=== PATIENT | male | born 1940 | race Caucasian/White ===

== ENCOUNTER → 2019-04-10 13:33 | Outpatient (CLI) | payer MEDICARE, OTHER, SELFPAY ==
[2019-03-23 09:49] VITALS: BMI 42.4
--- NOTE | 2019-04-10 13:34 | ECHOCS_ITS ---
Reason For Study: MURMUR Procedure This was a 2D Doppler, Color Flow transthoracic echocardiogram. The study was technically difficult. Contrast injection was performed. Exam performed in department. Left Ventricle Normal LV size. The estimated ejection fraction is 55 %. Left ventricular systolic function is normal. No regional wall motion abnormalities noted. Right Ventricle Normal RV size. Normal systolic function. Atria The left atrium is mildly enlarged. Normal right atrium. Mitral Valve Normal mitral valve. Mild (1+) eccentric mitral valve insufficiency. Tricuspid Valve Normal tricuspid valve. Mild (1+) tricuspid valve insufficiency. Pulmonary artery systolic pressure is 30 mmHg. Aortic Valve Moderate focal aortic valve thickening. Peak aortic valve gradient 34 mmHg. Mean aortic valve gradient 20 mmHg. Moderate aortic stenosis. Mild (1+) eccentric aortic valve insufficiency. Pulmonic Valve The pulmonic valve is not well visualized. Great Vessels Normal aortic root. The pulmonary artery is normal size. Normal inferior vena cava. Pericardium/Pleural No pericardial effusion. Medication 22 gauge I.V. with prn adaptor inserted into right arm. Diluted definity 4.0ml given slow IV push to enhance endocardial definition. MMode/2D Measurements & Calculations LVIDd: 5.6 cm IVSd: 1.1 cm LVOT diam: 2.1 cm LVIDs: 4.5 cm LVPWd: 1.1 cm RVDd: 5.2 cm FS: 20.2 % LVOT area: 3.3 cm2 Ao root diam: 4.4 cm LAV(MOD-bp): 81.2 ml EDV(MOD-sp4): 234.8 ml LAV(MOD-bp) Indexed: 31.6 ml/m2 ESV(MOD-sp4): 97.1 ml LAV(MOD-sp2): 90.1 ml EF(MOD-sp4): 58.7 % LAV(MOD-sp4): 72.5 ml EDV(MOD-sp2): 175.5 ml SV(MOD-sp4): 137.7 ml SV(MOD-sp2): 65.7 ml EF(MOD-sp2): 37.4 % LA dimension(2D): 4.1 cm LA A4 area: 23.1 cm2 RA A4 area: 12.9 cm2 Time Measurements MV dec time: 0.20 sec Doppler Measurements & Calculations MV E max chirag: 70.6 cm/sec Lat Peak E' Chirag: 5.9 cm/sec Med Peak E' Chirag: 4.3 cm/sec MV A max chirag: 88.4 cm/sec E/E' lat: 11.9 E/E' med: 16.3 MV E/A: 0.80 Ao V2 max: 291.0 cm/sec AI max chirag: 333.7 cm/sec LV V1 max: 76.6 cm/sec Ao max P.0 mmHg AI max P.7 mmHg LV V1 max P.3 mmHg Ao V2 mean: 216.3 cm/sec AI dec slope: 157.8 cm/sec2 LV V1 mean P.4 mmHg Ao mean P.4 mmHg AI P1/2t: 619.6 msec LV V1 mean: 55.7 cm/sec Ao V2 VTI: 72.8 cm LV V1 VTI: 19.4 cm JOSSE(I,D): 0.89 cm2 JOSSE(V,D): 0.88 cm2 SV(LVOT): 64.8 ml PA V2 max: 83.6 cm/sec TR max chirag: 259.7 cm/sec TR max P.0 mmHg Interpretation Summary Normal LV size. The estimated ejection fraction is 55 %. Left ventricular systolic function is normal. The left atrium is mildly enlarged. Mild (1+) eccentric mitral valve insufficiency. Mild (1+) tricuspid valve insufficiency. Moderate aortic stenosis. Moderate focal aortic valve thickening. Contrast injection was performed. Ordering Physician: John Herndon Referring Physician: ARHS POLK Performed By: Sheri Gordillo, RDCS, RVT
== END ==
PROVIDERS: Family Provider Family Medicine; PCP Family Medicine; Referring Provider Internal Medicine Cardiovascular Disease; Visit Provider Internal Medicine Cardiovascular Disease
DX: I35.0 Nonrheumatic aortic (valve) stenosis (principal); R01.0 Benign and innocent cardiac murmurs
CPT/HCPCS: 93306; Q9957; A4216; C8929

== ENCOUNTER 2019-04-24 11:08 | Outpatient (CLI) | payer MEDICARE, OTHER, SELFPAY ==
[2019-03-23 09:49] VITALS: BMI 42.4
--- NOTE | 2019-04-24 11:10 | ECHOTEE_ITS ---
Reason For Study: AORTIC STENOSIS Medication GISELLE probe 6VT-D (SN [id number]) passed with minimal difficulty. No complications were noted. Cetacaine Topical [place] given X4 orally. Versed 3.0 mg given slow IVP. Fentanyl 50 mcg given slow IVP. Performed a rapid injection of agitated mix of 9 cc saline and 1cc air to assess for atrial septal defect. Left Ventricle Normal LV size. The estimated ejection fraction is 45 %. No regional wall motion abnormalities noted. Right Ventricle Normal RV size. Mild global right ventricular systolic dysfunction. The right ventricular wall motion is normal. Atria Normal atrial septum. Bubble contrast study negative for right to left interatrial shunt. Normal left atrium. No thrombus is detected in the left atrial appendage. Normal right atrium. Mitral Valve Normal mitral valve. Mild (1+) eccentric mitral valve insufficiency. Tricuspid Valve Normal tricuspid valve. Aortic Valve Trisinus/trileaflet aortic valve. Moderate focal aortic valve thickening. Moderate aortic stenosis. Pulmonic Valve Normal pulmonic valve. Vessels Normal aortic root. Normal arch. The pulmonary artery is normal size. Pericardium No pericardial effusion. Interpretation Summary Normal LV size. The estimated ejection fraction is 45 %. Moderate focal aortic valve thickening. Moderate aortic stenosis. Ordering Physician: John Herndon Referring Physician: ARSH POLK Performed By: Sheri Gordillo, ESTEPHANIACS, RVT
== END 2019-04-24 13:08 | disposition home or self-care (01) ==
LOC: CVS 11:08
PROVIDERS: Family Provider Family Medicine; PCP Family Medicine; Referring Provider Internal Medicine Cardiovascular Disease; Visit Provider Internal Medicine Cardiovascular Disease
DX: I35.0 Nonrheumatic aortic (valve) stenosis (principal); C85.90 Non-Hodgkin lymphoma, unspecified, unspecified site; E78.5 Hyperlipidemia, unspecified
CPT/HCPCS: 93312; 93320; 93325; J7040; A4216

== ENCOUNTER 2020-01-22 12:43 | Inpatient (IN) | payer MEDICARE, OTHER, SELFPAY ==
[2019-03-23 09:49] VITALS: BMI 42.4
[2020-01-22] VITALS (18 sets, daily range): BP systolic 142–176; BP diastolic 75–113; PULSE 64–78; RESP 18–22; TEMP 36.6–37; O2SAT 96–98; BMI 42.7; BMI 41.7
--- NOTE | 2020-01-22 13:08 | EKG12_ITS ---
Test Reason : CP REPEAT Blood Pressure : / mmHG Vent. Rate : 071 BPM Atrial Rate : 071 BPM P-R Int : 174 ms QRS Dur : 116 ms QT Int : 436 ms P-R-T Axes : 042 -41 125 degrees QTc Int : 473 ms Sinus rhythm with occasional Premature ventricular complexes Left axis deviation Left ventricular hypertrophy with QRS widening and repolarization abnormality Abnormal ECG Confirmed by CRYSTAL VILLANUEVA, АНДРЕЙ ([id number]), proposal editor SUMIT PACHECO ([id number]) on 01/25/2020 1:16:31 PM Referred By: LORETTA Confirmed By:АНДРЕЙ ROJAS MD
--- NOTE | 2020-01-22 13:08 | RAD_ITS ---
STUDY: X-RAY CHEST REASON FOR EXAM: Male, 79 years old. CHEST PAIN TECHNIQUE: Single AP portable view of the chest. COMPARISON: None. FINDINGS: EKG electrodes are seen. The lungs are clear and expanded. There is no demonstrated pleural abnormality. There is moderate cardiac enlargement. Normal mediastinum and sirisha. Normal visualized pulmonary arteries. Normal visualized aortic arch and descending thoracic aorta. There are diffuse degenerative changes of the visualized thoracic spine. Normal visualized ribs, clavicles, and shoulders. There is no demonstrated abnormality of the visualized soft tissue structures of the upper abdomen. RAD/Chest 1 View (Portable) IMPRESSION: Cardiomegaly. Electronically Signed: Caio Shen, at 13:36 EDT , Service support ,
[2020-01-22 13:20] LABS: Absolute Lymphocyte Count 1.31 X10^3/uL (0.83-4.51); Absolute Neutrophil Count 6.2 X10^3/uL (2.0-7.7); Basophil# 0.03 X10^3/uL; Basophil% 0.4 % (0-1); Eosinophil# 0.22 X10^3/uL; Eosinophils% 2.6 % (0-5); Hematocrit 36.6 % (40-54); Hemoglobin 12.4 g/dL (13.0-16.5); Lymphocyte # 1.31 X10^3/ul (4.0); Lymphocyte % 15.3 % (19-41); Mean Corp Hgb Conc 33.9 g/dL (32-36); Mean Corpuscular Hgb 29.5 pg (27.0-32.0); Mean Corpuscular Volume 86.9 fL (80-94); Mean Platelet Vol. 10.3 fl (6.2-12.0); Monocyte# 0.79 X10^3/uL; Monocyte% 9.2 % (0-10); NRBC Flagged by Analyzer 0 % (0-5); Neutrophil # 6.17 X10^3/uL (2.7-7.7); Neutrophil % 71.9 % (47-70); Platelet Count 196 K/mm3 (150-450); RBC Distribution Width SD 43.8 fl (35.1-43.9); Red Blood Count 4.21 M/mm3 (4.6-6.2); White Blood Count 8.6 K/mm3 (4.4-11.0)
[2020-01-22] MEDS: Aspirin 81 MG TAB.CHEW 324 MG PO (13:28)
--- NOTE | 2020-01-22 13:28 | ED.VIS.GEN ---
History of Present Illness Chief Complaint: Chest Pain Narrative: Patient presents with chest pain that started about an hour prior to arrival he was at the chiropractor's office and was laying down. He describes left-sided chest ache, radiates to his jaw. There is no back pain or tearing sensation. Patient does not have any pleuritic component he has no lower extremity pain or calf pain. He has no DVT or PE risk factors. He does have a history of diabetes and hypertension. No prior cardiac history. He has no abdominal pain. Past Medical History - Allergies and Home Meds Allergies/Adverse Reactions: Allergies No Known Allergies Allergy (Verified 01/22/20 12:49) Past Medical History: - - Hypertension, diabetes Smoking Status: Former smoker Review of Systems General: Denies: Fever Eyes: Denies: Visual changes - bilaterally Cardiovascular: Reports: Chest pain Respiratory: Denies: Dyspnea, Cough Gastrointestinal: Denies: Abdominal pain, Nausea Genitourinary: Denies: Dysuria Musculoskeletal: Denies: Myalgias Skin: Denies: Rash Neurological: Denies: Headache Psych: Denies: Depression Hematologic: Denies: Easy bruising Allergy: Denies: Uticaria Physical Exam Vital Signs/Narrative: Vital Signs Temp Pulse Resp BP Pulse Ox 01/22/20 12:43 98.6 F 78 22 H 176/113 H 97 Inital Vital Signs reviewed: Yes General: Well nourished, Well developed Head: Normocephalic ENT: Moist mucous membranes Neck: Supple, Nontender Cardiovascular: Regular rate, Regular rhythm Respiratory: No distress, CTA bilaterally Abdomen: Soft, Nontender Back: Nontender, Normal Inspection. Negative for: CVA tenderness Extremities: Nontender, No edema Skin: Normal color Neurological: Alert, Oriented x3 Psychological: Normal affect Diagnostic/Tx/Re-eval - Rhythm Strip Rhythm Strip: Sinus Rhythm Rate: 81 Ectopy: None, PVC(s) - EKG Initial EKG Interpretation: - - Sinus rhythm with a rate of 81. PVCs are seen. Left axis deviation. LVH criteria is present. Nonspecific ST changes throughout. Otherwise normal EKG Interpreted by emergency doctor - Medical Decision Making Patient is found to have an elevated troponin, he still has some jaw pain and nitroglycerin drip was started. I will start low molecular heparin since there is some renal insufficiency. Patient will be admitted and I will call cardiology also. - Critical Care Time Critical care time (excluding procedures): 30-74 minutes - Cussing with family and family members, consultants and documenting. ED Disposition - Plan for ED Patient: Disposition: Home or Assisted Living Diagnosis: NSTEMI (non-ST elevated myocardial infarction)
[2020-01-22 13:35] LABS: Anion Gap 6 (5-15); BUN 24 mg/dL (7-18); BUN/Creat Ratio 14.9 RATIO (10-20); Chloride 104 mmol/L (98-107); Creatinine, Serum 1.61 mg/dL (0.70-1.30); EST Glomerular Filtration Rate 44 mL/min (>60); Est Glom Filt Rate - Afr Amer 53 mL/min (>60); Estimated Creatinine Clearance 40.84 ml/min; Glucose 136 mg/dL (74-106); Potassium 4.6 mmol/L (3.5-5.1); Sodium Level 137 mmol/L (136-145)
[2020-01-22 14:31] LABS: Partial Thromboplast Time 32.3 Seconds (24.1-36.2)
--- NOTE | 2020-01-22 14:36 | PCM.HP.STD ---
Problem List (1) Diabetes Status: Chronic Qualifiers: Diabetes mellitus type: type 2 Diabetes mellitus jail insulin use: without termite control representative use Diabetes mellitus complication status: with other specified complication Qualified Code(s): E11.69 - Type 2 diabetes mellitus with other specified complication (2) KOFI (acute kidney injury) Status: Acute (3) Mild chronic anemia Status: Chronic (4) Diffuse large B cell lymphoma Status: Resolved History of Present Illness Date of Admission: 01/22/20 Chief Complaint: Chest/Jaw pain Mr. Turner is a 79 year old M with a PMH of HPL, AV stenosis, DM-2, HTN, neuropathy, and chronic LBP who presented tot he ED on 01/22/2020 with chest discomfort that radiates to his jaw. He states that he had his first sx at 1100 pm on Sat night when going up the stairs to go to bed. He states at that time he was walking up the stairs and had some heaviness in his chest that was associated with jaw pain and significant diaphoresis that resolved when he laid down and went to bed. He woke up and didn't feel great yesterday but didn't feel badly either. Today he got up and felt okay. He had an appt at his chiropractor's office and went in and while he was lying on a table getting set up for treatment he started having the chest discomfort again and again it was associated with jaw pain but no diaphoresis. He had no associated N/V or SOB either. He has no personal h/o CAD but has a strong family h/o CAD in his parents and both of his siblings have had CABG. He has a remote h/o smoking. He is still currently having some slight chest discomfort and jaw pain and the ED is hanging a nitro ggt. He was given a full dose ASA and 1 dose of LMWH at 120mg per Dr. Herndon's request. He has no ST elevation or depression but has t wave inversions in lead I and lead aVF. His initial troponin 0.242. His sCr was 1.61 and baseline is unknown. His VS are stable except for some HTN and his sats are 96-98% on RA. Past Medical History Past Medical History (Chronic Problems): Chronic Problems (Last Reviewed 01/22/20 @ 14:[address] Corinne Laboy DO) Diabetes (Chronic) Mild chronic anemia (Chronic) Nonrheumatic aortic (valve) stenosis (Chronic) HLD (hyperlipidemia) (Chronic) Non-Hodgkin lymphoma (Chronic) Medical History: Medical History (Last Reviewed 01/22/20 @ 14:[address] Corinne Laboy DO) Nonrheumatic aortic (valve) stenosis (Chronic) I35.0 HLD (hyperlipidemia) (Chronic) E78.5 Non-Hodgkin lymphoma (Chronic) C85.90 Obesity E66.9 Splenic artery aneurysm I72.8 Type 2 diabetes mellitus E11.9 Kidney stones N20.0 Allergies No Known Allergies Allergy (Verified 01/22/20 12:49) Home Medications: Ambulatory Orders Medication Instructions Recorded gabapentin 300 mg capsule 300 mg PO BID 03/24/18 glimepiride 4 mg tablet 4 mg PO BID tab 03/24/18 metoprolol succinate 50 mg 50 mg PO DAILY 03/24/18 tablet,extended release 24 hr saw palmetto 160 mg capsule 160 mg PO BID 03/24/18 sitagliptin 100 mg tablet 100 mg PO DAILY 03/24/18 tamsulosin 0.4 mg capsule 0.4 mg PO DAILY 03/24/18 Aspirin E.C. [Ecotrin] 81 mg PO DAILY@199901/22/20 Ergocalciferol (Vitamin D2) 50,000 unit PO TU 01/22/20 [Vitamin D2] Metformin HCl [Metformin HCl ER] 2,000 mg PO BREAKFAST 01/22/20 Surgical History: Surgical History (Last Reviewed 01/22/20 @ 14:[address] Corinne Laboy DO) Hx of cataract surgery Z98.49 Hx of cholecystectomy Z90.49 Surgical History: cataract, cholecystectomy Psychiatric History: No pertinent psych hx Lives: Spouse/ Significant Other Smoking Status: Former smoker - *Family History Sibling Family History: Family History (Last Reviewed 03/23/19 @ 10:[address] John Herndon MD) Mother Heart disease Father Heart disease Brother Heart disease Review of Systems Constitutional: Reports: Fatigue. Denies: Anorexia, Chills, Fever, Night Sweats, Malaise, Weakness, Weight Change Eyes: Denies: Blurred vision, Cataracts, Conjunctivae Inflammation, Double vision, Drainage, Eyelid Inflammation, Pain, Redness, Vision Change HEENT: Denies: Difficulty Hearing, Difficulty Swallowing, Dysphasia, Ear Pain, Eye Pain, Hard of Hearing, Head Aches, Hearing Changes, Nasal bleeding, Nasal Congestion, Post Nasal Drip, Sinus Congestion, Sinus Drainage, Sore Throat, Visual Changes Cardiovascular: Reports: Chest Pain, Chest Pressure, Chest Tightness. Denies: Claudication, Edema, Heaviness, Light Headedness, Orthopnea, Palpitations, Paroxysmal Noc. Dyspnea Respiratory: Denies: Cough, Hemoptysis, Pleuritic Pain, Shortness of Breath, Shortness of breath at rest, Wheezing Gastrointestinal: Denies: Abdominal Pain, Constipation, Diarrhea, Dyspepsia, Hematemesis, Hematochezia, Nausea, Melena Genitourinary: Denies: Dysuria, Frequency, Hematuria, Hesitancy Musculoskeletal: Reports: Back Pain - chronic, Joint Pain, Joint stiffness, Muscle pain, Neck Pain - jaw pain. Denies: Arm Pain, Joint swelling, Joint Tenderness, Leg Pain, Shoulder Pain Skin: Denies: Dryness, Jaundice, Lesions, Pruritis, Rash, Skin Changes, Wounds Neurological: Denies: Balance problems, Blurred vision, Double vision, Change in Speech, Slurred speech, Confusion, Difficulty swallowing, Focal weakness, Headaches, Incoordination, Numbness, Tingling, Tremor, Seizures Psychiatric: Denies: Anxiety, Depression Endocrine: Reports: Hx of Irradiation. Denies: Change in Body Habitus, Heat/ Cold Intolerance, Polydipsia, Polyuria, Hx of Thyroiditis Hematologic/ Lymphatic: Denies: Adenopathy, Anemia, Easy Bruising, Easy Bleeding, Petechiae, Purpura VTE Information - Inpt Only VTE Present on Admission: No VTE Mechan Device Prophylaxis: None VTE Pharm Prophylaxis ordered?: Yes Patient Problems: Active and Suspected Problems (Last Reviewed 01/22/20 @ 14:[address] Corinne Laboy, DO) NSTEMI (non-ST elevated myocardial infarction) (Acute) KOFI (acute kidney injury) (Acute) - Physical Exam Vitals/I&O's: Vital Signs Temp Pulse Resp BP Pulse Ox 98 F 71 20 H 144/95 H 98 01/22/20 14:33 01/22/20 14:33 01/22/20 14:33 01/22/20 14:33 01/22/20 14:33 Oxygen Delivery Method Room Air Weight: 142.836 kg Body Mass Index (BMI) 42.7 General: Alert, No apparent distress, Well developed, Well nourished, - - obese older WM sitting up in bed with at bedside HEENT: Atraumatic, PERRLA, EOMI, Normocephalic, EAC Clear Oral: Moist Mucosa, No Gingival or Mucosal Lesions/ Ulcerations, - - dentures in place Neck: Supple, No JVD, Negative Carotid Bruits, Negative Hepatojugular Reflux, No Nodes, No Nuchal Rigidity, Trachea Midline, Thyroid Normal Size and Texture Lungs: Clear to auscultation, Normal air movement, No rhonchi, No wheeze, No rales Cardiovascular: Regular rate, Regular Rhythm, Normal S1, Normal S2, No Ectopic Activity, Murmur - 3/6 SM Abdomen: Bowel Sounds Present, Soft, Non Tender, Non-Distended, No Hepato-splenomegaly, Obese, No hernias noted Extremities: No clubbing, No cyanosis, Edema - trace B LE Skin: No rashes, No breakdown Musculoskeletal: No Tenderness to Palpation of Joints or Extremities, No Muscle Wasting, Arthritic Changes Lymphatic: No Cervical, Supraclavicular, or Inguinal Adenopathy Neurological: Cranial nerves II-XII grossly intact, Deep Tendon Reflexes 2+/4 and Symmetrical, Neuro grossly intact, Motor Exam 5/5 strength throughout, Sensory exam intact to light touch and pain, Coordination normal Psych/Mental Status: Normal Affect, Appropriate, Alert and oriented to time, place, person, mood and affect Laboratory Results 01/22/20 13:00: WBC 8.6, RBC 4.21 L, Hgb 12.4 L, Hct 36.6 L, MCV 86.9, MCH 29.5, MCHC 33.9, RDW Std Deviation 43.8, RDW Coeff of Wendy 14.0, Plt Count 196, MPV 10.3, Immature Gran % (Auto) 0.600, Neut % (Auto) 71.9 H, Lymph % (Auto) 15.3 L, [place] % (Auto) 9.2, Eos % (Auto) 2.6, Baso % (Auto) 0.4, Absolute Neuts (auto) 6.2, Absolute Lymphs (auto) 1.31, Nucleated RBC % 0 01/22/20 13:00: Sodium 137, Potassium 4.6, Chloride 104, Carbon Dioxide 27.0, Anion Gap 6, BUN 24 H, Creatinine 1.61 H, Estim Creat Clear Calc 40.84, Est GFR (MDRD) Af Amer 53 L, Est GFR (MDRD) Non-Af 44 L, BUN/Creatinine Ratio 14.9, Glucose 136 H, Calcium 9.0, Troponin I 0.242 H 01/22/20 13:00: APTT 32.3 Current Medications Nitroglycerin/Dextrose () 250 mls @ 3 mls/hr CONT INF .[id number] HAIM; Protocol Sodium Chloride () 10 - 40 ml IV UD PRN PRN Reason: SALINE FLUSH Assessment/Plan All Active Problems (Last Reviewed 01/22/20 @ 14:[address] 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 -baseline renal function unknown -hold oral DM meds -hydrate with NS at 75 cc/hr -repeat lab in am DM-2 -pt on 3 oral agents -hold -Lantus 10 u at hs and SSI with meals -BGT ACHS -check A1c HTN -continue BB but switch to 50 mh BID for now -starting nitro ggt -monitor HPL -pt on no meds at baseline -check lipids and LFT -start high dose statin HFrEF-compensated -GISELLE done 04/2019--> EF 45% WITH mod -gentle hydration for renal injury and trend -watch I&O -daily wgts Mild Anemia-normocytic -suspect chronic but no previous lab -monitor BPH -cont Flomax Vit D Deficiency -restart replacement on d/c Neuropathy -continue gabapentin Chronic LBP -prn APAP H/O Diffuse B-cell Lymphoma -Dx on 2006--> s/p R-CHOP and XRT to abdomen -no current issues DVT prophylaxis -full dose LMWH today x 1 dose Code status Full Inpatient E&M: 33453 Init Hosp L3
[2020-01-22] MEDS: Nitroglycerin Infusion 250 ML 3 MG CONT INF (14:38)
[2020-01-22] MEDS: Enoxaparin 120 MG/0.8 ML Syringe SC (14:56)
--- NOTE | 2020-01-22 15:17 | EKG12_ITS ---
Test Reason : CP Blood Pressure : / mmHG Vent. Rate : 081 BPM Atrial Rate : 081 BPM P-R Int : 162 ms QRS Dur : 118 ms QT Int : 402 ms P-R-T Axes : 039 -41 113 degrees QTc Int : 466 ms Sinus rhythm with occasional Premature ventricular complexes Left axis deviation Left ventricular hypertrophy with QRS widening and repolarization abnormality Abnormal ECG Confirmed by CRYSTAL VILLANUEVA, АНДРЕЙ ([id number]), society editor SUMIT PACHECO ([id number]) on 01/24/2020 11:04:59 AM Referred By: ROSEMARY Confirmed By:АНДРЕЙ ROJAS MD
[2020-01-22] MEDS: 0.9% Normal Saline 1,000 ML 75 ML IV (16:00)
--- NOTE | 2020-01-22 17:10 | CON.PCM_ITS ---
Reason for Consult Date of Consultation: 01/22/20 Reason for Consultation: Chest pain History of Present Illness: The patient is a 79 year old M [with a past medical history significant for moderate aortic stenosis who was in his normal state of health until yesterday when he started experiencing some chest discomfort which he said radiated to his jaw. This morning he also went to see the chiropractor because he was having some back pain and after he was placed on his stomach he started experiencing chest discomfort regarded as epigastric and then also with jaw discomfort and to his shoulder. He got rather concerned he presented to the emergency room and was evaluated. He tells me that he is doing much better at this time. He has had no dizziness or diaphoresis no near syncope or syncope. He has been compliant with his medications.] Past Medical History Allergies/Adverse Reactions: Allergies No Known Allergies Allergy (Verified 01/22/20 12:49) Home Medications: Ambulatory Orders Medication Instructions Recorded gabapentin 300 mg capsule 300 mg PO BID 03/24/18 glimepiride 4 mg tablet 4 mg PO BID tab 03/24/18 metoprolol succinate 50 mg 50 mg PO DAILY 03/24/18 tablet,extended release 24 hr saw palmetto 160 mg capsule 160 mg PO BID 03/24/18 sitagliptin 100 mg tablet 100 mg PO DAILY 03/24/18 tamsulosin 0.4 mg capsule 0.4 mg PO DAILY 03/24/18 Aspirin E.C. [Ecotrin] 81 mg PO DAILY@199901/22/20 Ergocalciferol (Vitamin D2) 50,000 unit PO TU 01/22/20 [Vitamin D2] Metformin HCl [Metformin HCl ER] 2,000 mg PO BREAKFAST 01/22/20 Past Medical History (Chronic Problems): Chronic Problems (Last Reviewed 01/22/20 @ 14:[address] Corinne Laboy DO) Diabetes (Chronic) Mild chronic anemia (Chronic) Nonrheumatic aortic (valve) stenosis (Chronic) HLD (hyperlipidemia) (Chronic) Non-Hodgkin lymphoma (Chronic) Surgical History: cataract, cholecystectomy Psychiatric History: No pertinent psych hx - *Family History Sibling Family History: Family History (Last Reviewed 03/23/19 @ 10:[address] John Herndon MD) Mother Heart disease Father Heart disease Brother Heart disease Lives: Spouse/ Significant Other Smoking Status: Former smoker Tobacco Use: Cigars Alcohol: None Drugs: None Review of Systems - Review of Systems General: Denies: Fever, Night Sweats, Fatigue HEENT: Denies: Vision Change Cardiovascular: Reports: Chest Discomfort, Chest Discomfort at Rest, Shortness of Breath. Denies: Orthopnea, PND, Peripheral Edema, Palpitations, Lightheadedness, Dizziness, Near Syncope, Syncope Respiratory: Denies: Cough, Sputum Production, Hemoptysis Gastrointestinal: Denies: Indigestion, Hematemesis, Hematochezia, Melena Genitourinary: Denies: Dysuria, Hematuria Skin: Denies: Rash Neurological: Denies: Dizziness Psychiatric: Denies: Anxiety Hematologic/ Lymphatic: Denies: Anemia Subjectve: Pleasant gentleman in no distress Objective: Vital Signs Temp Pulse Resp BP Pulse Ox 97.8 F 67 18 158/83 H 98 01/22/20 15:22 01/22/20 15:26 01/22/20 15:22 01/22/20 15:22 01/22/20 15:22 Oxygen Delivery Method Room Air Weight: 307 lb 12.245 oz Body Mass Index (BMI) 41.7 Intake and Output for Last 24 Hours 01/20/20 01/21/20 01/22/20 23:59 23:59 23:59 Intake Total 2.1 / 2.1 Balance 2.1 / 2.1 General: Awake, Alert, Oriented x 3 HEENT: PERRL, EOMI, Sclera Non Icteric Neck: Supple, Good ROM, No Lymph Node Enlargement Lungs: Clear to auscultation Cardiovascular: Regular Rhythm, Normal S1, Normal S2, No Rubs, No Gallops Murmur Murmur: Grade 2/6, Early Systolic, LLSB Vascular: No Carotid Bruits, Normal Femoral Pulses, Normal Radial Pulses, Normal Dorsalis Pedal Pulse, Normal Posterior Tibial Pulses Abdomen: Bowel Sounds Present, Soft, Non Tender, No HSM, No Organomegaly Extremities: No Cyanosis, No Clubbing, No edema Musculoskeletal: No Erythema Skin: No Rashes, No Ulcers Neurological: No Focal Motor or Sensory Deficit 01/22/20 13:00: WBC 8.6, RBC 4.21 L, Hgb 12.4 L, Hct 36.6 L, MCV 86.9, MCH 29.5, MCHC 33.9, Plt Count 196, MPV 10.3, Immature Gran % (Auto) 0.600, Neut % (Auto) 71.9 H, Lymph % (Auto) 15.3 L, [place] % (Auto) 9.2, Eos % (Auto) 2.6, Baso % (Auto) 0.4, Absolute Neuts (auto) 6.2, Nucleated RBC % 0 01/22/20 13:00: Sodium 137, Potassium 4.6, Chloride 104, Carbon Dioxide 27.0, Anion Gap 6, BUN 24 H, Creatinine 1.61 H, Est GFR (MDRD) Af Amer 53 L, Est GFR (MDRD) Non-Af 44 L, BUN/Creatinine Ratio 14.9, Glucose 136 H, Calcium 9.0, Troponin I 0.242 H 01/22/20 13:00: APTT 32.3 Rhythm: EKG: Normal sinus rhythm with no acute changes ECHO: Stress Test: Cardiac Cath: PCI: CT Surgery: Holter monitor: EPS: PPM: CXR: Chest CT Scan: Assessment/Plan 1. Chest discomfort * Patient presents with chest discomfort and jaw discomfort suggestive of angina. It appears that he may have had a non-ST elevation myocardial infarction. My recommendation at this time as he remains pain-free would be to continue with the current medical therapy and schedule him for a left heart catheterization in a.m. The risk benefits alternatives have been explained to him he understands and agrees to proceed. * 2. Hypertension * Would continue with aggressive risk factor modification and blood pressure management. We will however be careful about lowering the blood pressure too much due to the aortic stenosis. * 3. Aortic stenosis * Patient appears to have moderate aortic stenosis. We will reevaluate the above with an echocardiogram as well as with a cardiac catheterization. * * Thank you for allowing me to participate in the care of your patient. Please don't hesitate to call if any issues arise.
[2020-01-22] MEDS: Gabapentin 300 MG Capsule PO (17:40)
[2020-01-22] MEDS: Tamsulosin HCl 0.4 MG Capsule PO (17:40)
[2020-01-22 17:41] LABS: Bedside Glucose 149 mg/dL (70-110)
[2020-01-22] MEDS: Atorvastatin Calcium 80 MG Tablet PO (21:51)
[2020-01-22] MEDS: Metoprolol Tartrate 50 MG Tablet PO (21:51)
[2020-01-22 21:55] LABS: Bedside Glucose 137 mg/dL (70-110)
[2020-01-23] VITALS (26 sets, daily range): BP systolic 115–158; BP diastolic 72–105; PULSE 53–79; RESP 13–23; TEMP 36.6–36.7; O2SAT 93–100
[2020-01-23] MEDS: 0.9% Normal Saline 1,000 ML 75 ML IV ×2 (04:19→16:47)
[2020-01-23 05:24] LABS: Basophil# 0.04 X10^3/uL; Basophil% 0.4 % (0-1); Eosinophil# 0.21 X10^3/uL; Eosinophils% 2.3 % (0-5); Hematocrit 35.3 % (40-54); Hemoglobin 11.9 g/dL (13.0-16.5); Mean Corp Hgb Conc 33.7 g/dL (32-36); Mean Corpuscular Hgb 29.3 pg (27.0-32.0); Mean Corpuscular Volume 86.9 fL (80-94); Mean Platelet Vol. 10.2 fl (6.2-12.0); Monocyte# 0.79 X10^3/uL; Monocyte% 8.6 % (0-10); NRBC Flagged by Analyzer 0 % (0-5); Neutrophil # 6.96 X10^3/uL (2.7-7.7); Neutrophil % 76.2 % (47-70); Platelet Count 183 K/mm3 (150-450); RBC Distribution Width CV 13.8 % (11.6-14.6); RBC Distribution Width SD 43.4 fl (35.1-43.9); Red Blood Count 4.06 M/mm3 (4.6-6.2); White Blood Count 9.2 K/mm3 (4.4-11.0)
[2020-01-23 05:47] LABS: ALB/GLOB Ratio 0.7 RATIO (0.9-2.4); AST(SGOT) 136 U/L (15-37); Alanine Aminotransfer ALT/SGPT 29 U/L (16-61); Albumin, Serum 2.9 g/dL (3.2-5.0); Alkaline Phosphatase 29 U/L (45-117); Anion Gap 6 (5-15); BUN 21 mg/dL (7-18); BUN/Creat Ratio 14.9 RATIO (10-20); Calcium,Total 8.6 mg/dL (8.5-10.1); Chloride 104 mmol/L (98-107); Cholesterol 176 mg/dL (200); Creatinine, Serum 1.41 mg/dL (0.70-1.30); EST Glomerular Filtration Rate 51 mL/min (>60); Est Glom Filt Rate - Afr Amer 62 mL/min (>60); Estimated Creatinine Clearance 46.63 ml/min; Globulin 3.9 g/dL (2.2-4.2); Glucose 180 mg/dL (74-106); High Density Lipoprotein 41 mg/dL; Magnesium 1.5 mg/dL (1.6-2.6); Potassium 4.5 mmol/L (3.5-5.1); Protein, Total 6.8 g/dL (6.4-8.2); Sodium Level 138 mmol/L (136-145); Thyroid Stim Hormone (TSH) 3.66 uIU/mL (0.358-3.74); Triglycerides 168 mg/dL; Very Low Density Lipoprotein 34 mg/dL (5-40)
[2020-01-23] MEDS: Metoprolol Tartrate 50 MG Tablet PO ×2 (06:08→21:33)
[2020-01-23] MEDS: Gabapentin 300 MG Capsule PO ×2 (06:08→16:47)
[2020-01-23] MEDS: Aspirin E.C. 81 MG Tablet PO (06:08)
[2020-01-23 06:16] LABS: Bedside Glucose 181 mg/dL (70-110)
[2020-01-23 07:54] LABS: Hemoglobin A1c 7.3 % (3.8-5.6)
--- NOTE | 2020-01-23 08:34 | CL.D_ITS ---
Patient Name: EMMETT SERRANO Study Date: 01/23/2020 Performing: John Herndon MD Ht: 72.04 inches 183 cm : 1940 Wt: 304.24 lbs 138 kg Age: 79 Gender: male BSA: 2.55 PROCEDURE(S) PERFORMED [id number] CLINICAL PROFILE AND INDICATIONS Indications: Suspected CAD, Valvular Disease Heart Failure: None Stress/Imaging Stress/Image Study Performed: No CONCLUSIONS Coronary artery disease with mild disease noted in the circumflex artery as well as the left anterior descending artery. Moderately severe disease noted in the mid to distal right coronary artery. Mod erate aortic stenosis present. Mild basal inferior hypokinesis. RECOMMENDATIONS Staged for FFR Referred for immediate PCI DESCRIPTION OF PROCEDURE The patient arrived to the procedure lab. The risks and benefits of the procedure as well as a full d escription of our services here and current unavailability of surgical backup were fully explained to the patient and/or their significant other prior to the catheterization. The Timeout was completed, verifying the correct patient and procedure. The patient's procedural site was prepped and draped in the usual fashion. Local anesthetic was given subcutaneously to right radial region with Lidocaine 2% . Using a modified Seldinger technique, arterial access was obtained via the right radial artery, a 6 Fr sheath was inserted. Right Coronary Artery selective angiography was then performed in multiple v iews using a 5 Fr. 4.0 [place] catheter. Left Coronary Artery selective angiography was performed in mu ltiple views using a 5 Fr. 4.0 [place] catheter. Left Ventriculography was performed in ULRICH projection using a 5 Fr. Pigtail catheter. LV to AO pullback pressures were then recorded. CORONARY ANGIOGRAPHY DOMINANCE: Right Dominant LEFT HEART ASSESSMENT Left Ventricular Ejection Fraction: by LV Gram 50 % Inferior Basal Hypokinesis - Moderate Normal Left Ventricular systolic function LEFT MAIN: Angiographically normal LEFT ANTERIOR DESCENDING ARTERY: Mild luminal irregularities less than 30% SEPTAL: Diffusely diseased up to 50 % CIRCUMFLEX ARTERY: Mild luminal irregularities RIGHT CORONARY ARTERY: Mild luminal irregularities less than 30% RT PDA: Proximal - hazy 70 % Stenosis VALVE FINDINGS: Aortic Valve Stenosis - moderate COMPLICATIONS PROCEDURE MEDICATIONS Versed 1 mg IV Fentanyl 50 mcg IV Versed 1 mg IV Oxygen: 2 L/min via nasal cannula Heparin diluted in 23cc Heparinized saline. Patient given 10cc IA of this solution. 01/23/2020 08:02: 28 Nitro glycerin 25mg / 250ml D5W @ 5mcq infusing from PCU 01/23/2020 07:55:28 Verapamil 2.5mg, Ntg 100mcgs, 2000 units of Heparin diluted in 23cc Heparinized saline. Patient give n 10cc IA of this solution. 01/23/2020 08:02:28 SUMMARY OF HEMODYNAMIC DATA Time AIR REST ECG 07:50:48 AO 136/78 (101) SA 08:07:39 LV 167/21, 32 08:17:25 LV 173/22, 28 08:17:32 LV 174/17, 31 08:18:45 LVp 180/22, 40 08:18:57 AOp 148/67 (99) 08:19:02 Signed By John Herndon MD On 01/23/2020 08:34:03 John Herndon MD
--- NOTE | 2020-01-23 10:15 | PN.CARD_ITS ---
Subjectve: Patient seen and evaluated. Objective: Vital Signs Temp Pulse Resp BP Pulse Ox 97.8 F 59 L 22 H 146/81 H 93 01/23/20 07:00 01/23/20 09:45 01/23/20 09:45 01/23/20 09:45 01/23/20 09:45 Oxygen Flow Rate (L/min) 2 Oxygen Delivery Method Nasal Cannula Weight: 305 lb 1.916 oz Body Mass Index (BMI) 41.7 Intake and Output for Last 24 Hours 01/21/20 01/22/20 01/23/20 23:59 23:59 23:59 Intake Total 25.1 / 228.1 1154.50 / 1154.50 Output Total 575 / 1275 1500 / 1500 Balance -549.9 / -1046.9 -345.50 / -345.50 General: Awake, Alert, Oriented x 3 HEENT: PERRL, EOMI, Sclera Non Icteric Neck: Supple, Good ROM, No Lymph Node Enlargement Lungs: Clear to auscultation Cardiovascular: Regular Rhythm, Normal S1, Normal S2, No Murmurs, No Rubs, No Gallops 01/22/20 13:00: WBC 8.6, RBC 4.21 L, Hgb 12.4 L, Hct 36.6 L, MCV 86.9, MCH 29.5, MCHC 33.9, Plt Count 196, MPV 10.3, Immature Gran % (Auto) 0.600, Neut % (Auto) 71.9 H, Lymph % (Auto) 15.3 L, [place] % (Auto) 9.2, Eos % (Auto) 2.6, Baso % (Auto) 0.4, Absolute Neuts (auto) 6.2, Nucleated RBC % 0 01/22/20 13:00: Sodium 137, Potassium 4.6, Chloride 104, Carbon Dioxide 27.0, Anion Gap 6, BUN 24 H, Creatinine 1.61 H, Est GFR (MDRD) Af Amer 53 L, Est GFR (MDRD) Non-Af 44 L, BUN/Creatinine Ratio 14.9, Glucose 136 H, Calcium 9.0, Troponin I 0.242 H 01/22/20 13:00: APTT 32.3 01/22/20 16:00: Troponin I 1.180 H* 01/22/20 19:13: Troponin I 5.500 H* 01/23/20 05:06: WBC 9.2, RBC 4.06 L, Hgb 11.9 L, Hct 35.3 L, MCV 86.9, MCH 29.3, MCHC 33.7, Plt Count 183, MPV 10.2, Immature Gran % (Auto) 0.500, Neut % (Auto) 76.2 H, Lymph % (Auto) 12.0 L, [place] % (Auto) 8.6, Eos % (Auto) 2.3, Baso % (Auto) 0.4, Absolute Neuts (auto) 7.0, Nucleated RBC % 0 01/23/20 05:06: Sodium 138, Potassium 4.5, Chloride 104, Carbon Dioxide 28.0, Anion Gap 6, BUN 21 H, Creatinine 1.41 H, Est GFR (MDRD) Af Amer 62, Est GFR (MDRD) Non-Af 51 L, BUN/Creatinine Ratio 14.9, Glucose 180 H, Calcium 8.6, Magnesium 1.5 L, Total Bilirubin 0.70, Direct Bilirubin 0.20, Triglycerides 168, Cholesterol 176, LDL Cholesterol 101, VLDL Cholesterol 34, HDL Cholesterol 41 01/23/20 05:06: Hemoglobin A1c 7.3 H Rhythm: EKG: ECHO: Stress Test: Cardiac Cath: PCI: CT Surgery: Holter monitor: EPS: PPM: CXR: Chest CT Scan: Medical Necessity - Tobacco Use Smoking Status: Former smoker Tobacco Use: Cigars Assessment/Plan 1. Chest discomfort * Patient presents with chest discomfort and jaw discomfort suggestive of angina. * Cardiac catheterization today demonstrated normal left main coronary artery: Left anterior descending artery with eccentric calcified plaque but no obvious stenosis except for mild distal disease: Left circumflex artery with mild disease: Dominant large right coronary artery with mild proximal disease and mid PDA 60 to 70% stenosis. The above was evaluated with different techniques and it was determined that it was not significant and medical therapy would be pursued. 2. Hypertension * Would continue with aggressive risk factor modification and blood pressure management. We will however be careful about lowering the blood pressure too much due to the aortic stenosis. * 3. Aortic stenosis * Patient appears to have moderate aortic stenosis. We will reevaluate the above with an echocardiogram as well as with a cardiac catheterization. * The echocardiogram can be performed as an outpatient * * Will recommend discharging patient later today for outpatient follow-up. * Thank you for allowing me to participate in the care of your patient. Please don't hesitate to call if any issues arise.
--- NOTE | 2020-01-23 10:55 | CASEMGMT ---
FRANKY LUTZ assessment: Face to Face with patient for initial transition planning/care coordination assessment. FRANKY LUTZ introduced self and role at [facility], pt voices understanding and consents to assessment at this time. Pt is lying in bed in no distress at this time and is at bedside. answers all questions for pt at this time as pt falls in and out of sleep. Care providers, pharmacy, and demographics verified at this time. Presentation: While laying flat at chiropractor, pt started with CP radiating into jaw-pt has same pain with diaphoresis wednesday night after climbing the stairs. Admitting dx: NSTEMI PCP: Eri Specialists: Katrina cardio Preferred Pharmacy: [facility] Insurance: [facility] A/B, [facility] Prescription Benefit: Yes Living Will/HPOA: states has LW/HPOA and is aware that they are not on file at [facility] at this time. Pt's , Suri Turner, is HPOA. LNOK: Suri Turner, Living Arrangements: Pt lives with in 2 story home with bedroom on 2nd floor and states pt has been having more difficulty getting up the stairs in the home but only goes up at bedtime. Pt is normally independent with ADL's. Transportation: Pt drives self and states no transportation concerns at this time. DME/HHC: Pt has the following DME but does not normally use: cane, walker, w/c, grab bars, lift chair, and shower chair. states no need for any further DME. states no hx of HHC or SNF in the past. Pt/ voice no concerns with pt going home at time of discharge. Pt is retired. Pt does not smoke or drink ETOH. voices no further concerns/needs at this time. CM to follow for any further discharge planning/needs. Advised pt/ to ask for CM if any further questions/concerns/needs arise, voices understanding. Pt Goal: Home Plan: [place] FRANKY LUTZ
[2020-01-23] MEDS: Insulin Lispro 100 UNIT/ML INSULN.PEN SC ×2 (11:54→21:33)
[2020-01-23 11:55] LABS: Bedside Glucose 236 mg/dL (70-110)
--- NOTE | 2020-01-23 13:27 | PN_ITS ---
Patient Problems: Active and Suspected Problems (Last Reviewed 01/22/20 @ 14:[address] Corinne Laboy DO) NSTEMI (non-ST elevated myocardial infarction) (Acute) KOFI (acute kidney injury) (Acute) Reason for Visit: NSTEMI Subjective: Post-cath no further chest pain. Vitals/I&O's: Vital Signs Temp Pulse Resp BP Pulse Ox 36.6 C 68 15 136/85 H 98 01/23/20 13:00 01/23/20 13:00 01/23/20 13:00 01/23/20 13:00 01/23/20 13:00 Oxygen Flow Rate (L/min) 2 Oxygen Delivery Method Nasal Cannula Weight: 138.4 kg Body Mass Index (BMI) 41.7 Intake and Output for Last 24 Hours 01/21/20 01/22/20 01/23/20 23:59 23:59 23:59 Intake Total 25.1 / 228.1 1154.50 / 1154.50 Output Total 575 / 1275 1850 / 1850 Balance -549.9 / -1046.9 -695.50 / -695.50 General: Alert, No apparent distress HEENT: Atraumatic, Normocephalic Oral: Moist Mucosa, No Gingival or Mucosal Lesions/ Ulcerations Neck: No Nodes, Thyroid Normal Size and Texture Lungs: Clear to auscultation, Normal air movement, No rhonchi, No wheeze, No rales Cardiovascular: Regular rate, Regular Rhythm, Normal S1, Normal S2, No murmurs Abdomen: Bowel Sounds Present, Soft, Non Tender, Non-Distended, No Hepato- splenomegaly Extremities: No edema, No Calf Tenderness Skin: No rashes, No breakdown Psych/Mental Status: Normal Affect, Appropriate Laboratory Results 01/22/20 13:00: Sodium 137, Potassium 4.6, Chloride 104, Carbon Dioxide 27.0, Anion Gap 6, BUN 24 H, Creatinine 1.61 H, Estim Creat Clear Calc 40.84, Est GFR (MDRD) Af Amer 53 L, Est GFR (MDRD) Non-Af 44 L, BUN/Creatinine Ratio 14.9, Glucose 136 H, Calcium 9.0, Troponin I 0.242 H 01/22/20 13:00: APTT 32.3 01/22/20 16:00: Troponin I 1.180 H* 01/22/20 17:37: POC Glucose 149 H 01/22/20 19:13: Troponin I 5.500 H* 01/22/20 21:47: POC Glucose 137 H 01/23/20 05:06: WBC 9.2, RBC 4.06 L, Hgb 11.9 L, Hct 35.3 L, MCV 86.9, MCH 29.3, MCHC 33.7, RDW Std Deviation 43.4, RDW Coeff of Wendy 13.8, Plt Count 183, MPV 10.2, Immature Gran % (Auto) 0.500, Neut % (Auto) 76.2 H, Lymph % (Auto) 12.0 L, [place] % (Auto) 8.6, Eos % (Auto) 2.3, Baso % (Auto) 0.4, Absolute Neuts (auto) 7.0, Absolute Lymphs (auto) 1.10, Nucleated RBC % 0 01/23/20 05:06: Sodium 138, Potassium 4.5, Chloride 104, Carbon Dioxide 28.0, Anion Gap 6, BUN 21 H, Creatinine 1.41 H, Estim Creat Clear Calc 46.63, Est GFR (MDRD) Af Amer 62, Est GFR (MDRD) Non-Af 51 L, BUN/Creatinine Ratio 14.9, Glucose 180 H, Calcium 8.6, Magnesium 1.5 L, Total Bilirubin 0.70, Direct Bilirubin 0.20, AST 136 H, ALT 29, Alkaline Phosphatase 29 L, Total Protein 6.8, Albumin 2.9 L, Globulin 3.9, Albumin/Globulin Ratio 0.7 L, Triglycerides 168, Cholesterol 176, LDL Cholesterol 101, VLDL Cholesterol 34, HDL Cholesterol 41, TSH 3.66 01/23/20 05:06: Hemoglobin A1c 7.3 H 01/23/20 06:07: POC Glucose 181 H 01/23/20 11:50: POC Glucose 236 H Current Medications Acetaminophen (Tylenol) 650 mg PO Q6H PRN PRN PRN Reason: Pain Score 1-10/Temp > 100.7 F Al Hydroxide/Mg Hydroxide (Mylanta Ii) 30 ml PO Q6H PRN PRN PRN Reason: Gastric Burning Albuterol Sulfate (Ventolin Aerosols) 2.5 mg INHALATION Q2H PRN PRN PRN Reason: SOB/Wheezing Aspirin (Ecotrin) 81 mg PO DAILY@0800 [facility] Last Admin: 01/23/20 06:08 Dose: 81 mg Documented by: Atorvastatin Calcium (Lipitor) 80 mg PO QHS [facility] Last Admin: 01/22/20 21:51 Dose: 80 mg Documented by: Docusate Sodium (Colace) 100 mg PO BID PRN PRN PRN Reason: Constipation Gabapentin (Neurontin) 300 mg PO BIDCM [facility] Last Admin: 01/23/20 06:08 Dose: 300 mg Documented by: Sodium Chloride () 1,000 mls @ 75 mls/hr IV .[id number] [facility] Last Admin: 01/23/20 04:19 Dose: 75 mls/hr Documented by: Insulin Glargine (Lantus ([facility])) 15 units SC QHS [facility] Last Admin: 01/22/20 21:50 Dose: 15 units Documented by: Insulin Human Lispro (Humalog Kwikpen ([facility])) 0 unit SC [facility]; Protocol Last Admin: 01/23/20 11:54 Dose: 3 units Documented by: Melatonin (Melatonin) 3 mg PO QHS PRN PRN PRN Reason: INSOMNIA Metoprolol Tartrate (Lopressor (Beta Taj)) 50 mg PO BID [facility] Last Admin: 01/23/20 06:08 Dose: 50 mg Documented by: Morphine Sulfate () 2 mg IV Q3H PRN PRN PRN Reason: Pain Score 6-10/10 Ondansetron HCl (Zofran) 4 mg IV Q8H PRN PRN PRN Reason: NAUSEA/VOMITING Sodium Chloride () 10 - 40 ml IV UD PRN PRN Reason: SALINE FLUSH Tamsulosin HCl (Flomax) 0.4 mg PO DAILY@1730 [facility] Last Admin: 01/22/20 17:40 Dose: 0.4 mg Documented by: STROKE Vital Signs/Narrative: Vital Signs Temp Pulse Resp BP Pulse Ox 01/23/20 13:00 36.6 C 68 15 136/85 H 98 01/23/20 12:00 53 L 16 115/74 100 01/23/20 11:30 61 14 141/78 H 100 01/23/20 11:00 59 L 22 H 138/72 H 98 01/23/20 10:30 61 22 H 131/74 H 94 01/23/20 10:15 36.7 C 63 22 H 129/74 H 93 01/23/20 10:00 61 22 H 132/80 H 93 01/23/20 09:45 59 L 22 H 146/81 H 93 01/23/20 09:33 61 20 H 135/84 H 100 01/23/20 09:30 61 23 H 143/83 H 99 Medical Necessity - Tobacco Use Smoking Status: Former smoker Tobacco Use: Cigars Assessment/Plan All Active Problems (Last Reviewed 01/22/20 @ 14:[address] Corinne Laboy, DO) NSTEMI (non-ST elevated myocardial infarction) (Acute) KOFI (acute kidney injury) (Acute) Diffuse large B cell lymphoma (Resolved) 1. NSTEMI * left heart cath showed showed 60-70% stenosis. Evaluated and determined not significant for PCI and medical therapy recommended. * ASA, HIS * troponin up to 5.5 * on metoprolol. no ACEi given CKD 2. DM2 * uncontrolled * continue basal insulin and SSI 3. VTE prophylaxis: not indicated. DW patient's . Inpatient E&M: 33226 Subs Hosp L2
[2020-01-23] MEDS: Tamsulosin HCl 0.4 MG Capsule PO (16:47)
[2020-01-23 16:55] LABS: Bedside Glucose 141 mg/dL (70-110)
[2020-01-23] MEDS: Atorvastatin Calcium 80 MG Tablet PO (21:33)
[2020-01-23 22:40] LABS: Bedside Glucose 202 mg/dL (70-110)
[2020-01-24] VITALS (7 sets, daily range): BP systolic 141–150; BP diastolic 69–84; PULSE 64–70; RESP 16–18; TEMP 36.5–36.8; O2SAT 92–95
[2020-01-24] MEDS: 0.9% Normal Saline 1,000 ML 75 ML IV (06:11)
[2020-01-24 06:56] LABS: Bedside Glucose 149 mg/dL (70-110)
[2020-01-24] MEDS: Aspirin E.C. 81 MG Tablet PO (09:05)
[2020-01-24] MEDS: Metoprolol Tartrate 50 MG Tablet PO (09:05)
[2020-01-24] MEDS: Gabapentin 300 MG Capsule PO (09:05)
[2020-01-24] MEDS: Insulin Lispro 100 UNIT/ML INSULN.PEN SC (11:41)
--- NOTE | 2020-01-24 12:22 | DCINST_ITS ---
- Discharge Diagnoses Current Active Problems: Current Active and Chronic Problems (Last Reviewed 01/22/20 @ 14:[address] Corinne Laboy DO) NSTEMI (non-ST elevated myocardial infarction) (Acute) Diabetes (Chronic) KOFI (acute kidney injury) (Acute) Mild chronic anemia (Chronic) You will use the following diet at home:: Calorie/Carbohydrate Controlled (specify 1200, 1400, etc) - 1800 calories/day, Cardiac Your food should be the consistency of: Regular Your liquids should be the consistency of: Regular/Thin Discharge Activity: - - slowly ease back into normal routine. Call your doctor if you observe: Shortness of breath, Chest pain, Increased palpitations (irregular heartbeat) Allergies/Adverse Reactions: Allergies No Known Allergies Allergy (Verified 01/22/20 12:49) Medications to take at Discharge gabapentin 300 mg capsule 300 mg PO BID 03/24/18 glimepiride 4 mg tablet 4 mg PO BID tab 03/24/18 saw palmetto 160 mg capsule 160 mg PO BID 03/24/18 sitagliptin 100 mg tablet 100 mg PO DAILY 03/24/18 tamsulosin 0.4 mg capsule 0.4 mg PO DAILY 03/24/18 Aspirin E.C. [Ecotrin] 81 mg PO DAILY@199901/22/20 Ergocalciferol (Vitamin D2) [Vitamin D2] 50,000 unit PO TU 01/22/20 Atorvastatin Calcium [Lipitor] 80 mg PO QHS #30 tab 01/24/20 Metformin HCl [Metformin HCl ER] 2,000 mg PO BREAKFAST #0 01/24/20 Metoprolol Tartrate [Lopressor (beta daniella)] 50 mg PO BID #60 tab 01/24/20 The following prescriptions were given: Atorvastatin Calcium [Lipitor] 80 mg PO QHS #30 tab Transmission Status: Pending to [facility] Metoprolol Tartrate [Lopressor (beta daniella)] 50 mg PO BID #60 tab Transmission Status: Pending to [facility] Primary Care Physician: Lalo Hwang MD [Primary Care Provider] - Within 1 Week Test Results: Test results from this visit will be discussed in further detail at your follow- up appointment, if applicable. Please Follow Up With: John Herndon MD When: 2-4 weeks Proposed Discharge Date: 01/24/20
--- NOTE | 2020-01-24 12:23 | DS.PCM_ITS ---
Discharge Date and Diagnosis - Problem List Patient Problems: Active and Suspected Problems (Last Reviewed 01/22/20 @ 14:[address] Corinne Laboy DO) NSTEMI (non-ST elevated myocardial infarction) (Acute) Date of Admission: 01/22/20 Date of Discharge: 01/24/20 - Primary Discharge Diagnosis Acute Problems: Active Problems (Last Reviewed 01/22/20 @ 14:[address] Corinne Laboy DO) NSTEMI (non-ST elevated myocardial infarction) (Acute) KOFI (acute kidney injury) (Acute) - Secondary Discharge Diagnosis Chronic Problems: Chronic Problems (Last Reviewed 01/22/20 @ 14:[address] Corinne Laboy DO) Diabetes (Chronic) Mild chronic anemia (Chronic) Nonrheumatic aortic (valve) stenosis (Chronic) HLD (hyperlipidemia) (Chronic) Non-Hodgkin lymphoma (Chronic) Hospital Course and Treatment Imaging Results: Clinical Impression(s) from Imaging Studies Chest X-Ray 01/22/20 13:08 IMPRESSION: Cardiomegaly. Electronically Signed: Caio Shen, at 13:36 EDT , Service support , [facility], cardiology Operations: None Procedures: Cardiac catheterization - Coronary artery disease with mild disease noted in the circumflex artery as well as the left anterior descending artery. Moderately severe disease noted in the mid to distal right coronary artery. Moderate aortic stenosis present. Mild basal inferior hypokinesis. Summary of Care Provided: The patient is a 79 year old M with chest pain. Patient was found to have a non-ST ovation myocardial infarction with a troponin went up to 5.5. Patient underwent a left heart catheterization on the that showed moderate severe disease noted in mid to distal right coronary. Was not felt to be amenable to stents and medical management was recommended. Medicines were adjusted to high intensity statin with atorvastatin 80 mg daily plus changing his metoprolol succinate to metoprolol tartrate 50 mg twice daily. Patient was monitored overnight after the heart catheterization had no further issues and will be discharged home with follow-up with cardiology in the coming weeks. Patient is diabetic and was put on insulin while he was here in the hospital will resume his home medications upon discharge. Patient will will resume his metformin on the as he had received IV contrast while he was here. [] Patient Problems: Active and Suspected Problems (Last Reviewed 01/22/20 @ 14:[address] Corinne Laboy DO) NSTEMI (non-ST elevated myocardial infarction) (Acute) - Physical Exam Vitals/I&O's: Vital Signs Temp Pulse Resp BP Pulse Ox 36.5 C L 64 18 141/72 H 93 01/24/20 09:00 01/24/20 11:00 01/24/20 09:00 01/24/20 09:05 01/24/20 09:00 Oxygen Flow Rate (L/min) 2 Oxygen Delivery Method Room Air Weight: 136.8 kg Body Mass Index (BMI) 41.7 Intake and Output for Last 24 Hours 01/22/20 01/23/20 01/24/20 23:59 23:59 23:59 Intake Total 25.1 / 228.1 2720.75 / 2720.75 1228.75 / 1228.75 Output Total 575 / 1275 2250 / 2250 500 / 500 Balance -549.9 / -1046.9 470.75 / 470.75 728.75 / 728.75 General: Alert, No apparent distress HEENT: Atraumatic, Normocephalic Oral: Moist Mucosa, No Gingival or Mucosal Lesions/ Ulcerations Neck: No Nodes, Thyroid Normal Size and Texture Lungs: Clear to auscultation, Normal air movement, No rhonchi, No wheeze Cardiovascular: Regular rate, Regular Rhythm, Normal S1, Normal S2, No murmurs Abdomen: Bowel Sounds Present, Soft, Non Tender, Non-Distended, No Hepato- splenomegaly Extremities: No edema, No Calf Tenderness Psych/Mental Status: Normal Affect, Appropriate Laboratory Results 01/23/20 16:45: POC Glucose 141 H 01/23/20 21:31: POC Glucose 202 H 01/24/20 06:14: POC Glucose 149 H Current Medications Acetaminophen (Tylenol) 650 mg PO Q6H PRN PRN PRN Reason: Pain Score 1-10/Temp > 100.7 F Al Hydroxide/Mg Hydroxide (Mylanta Ii) 30 ml PO Q6H PRN PRN PRN Reason: Gastric Burning Albuterol Sulfate (Ventolin Aerosols) 2.5 mg INHALATION Q2H PRN PRN PRN Reason: SOB/Wheezing Aspirin (Ecotrin) 81 mg PO DAILY@0800 [facility] Last Admin: 01/24/20 09:05 Dose: 81 mg Documented by: Atorvastatin Calcium (Lipitor) 80 mg PO QHS [facility] Last Admin: 01/23/20 21:33 Dose: 80 mg Documented by: Docusate Sodium (Colace) 100 mg PO BID PRN PRN PRN Reason: Constipation Gabapentin (Neurontin) 300 mg PO BIDCM [facility] Last Admin: 01/24/20 09:05 Dose: 300 mg Documented by: Sodium Chloride () 1,000 mls @ 75 mls/hr IV .[id number] [facility] Last Admin: 01/24/20 06:11 Dose: 75 mls/hr Documented by: Insulin Glargine (Lantus (Bk)) 15 units SC QHS [facility] Last Admin: 01/23/20 21:33 Dose: 15 units Documented by: Insulin Human Lispro (Humalog Kwikpen (Bk)) 0 unit SC [facility]; Protocol Last Admin: 01/24/20 11:41 Dose: 1 units Documented by: Melatonin (Melatonin) 3 mg PO QHS PRN PRN PRN Reason: INSOMNIA Metoprolol Tartrate (Lopressor (Beta Taj)) 50 mg PO BID [facility] Last Admin: 01/24/20 09:05 Dose: 50 mg Documented by: Morphine Sulfate () 2 mg IV Q3H PRN PRN PRN Reason: Pain Score 6-10/10 Ondansetron HCl (Zofran) 4 mg IV Q8H PRN PRN PRN Reason: NAUSEA/VOMITING Sodium Chloride () 10 - 40 ml IV UD PRN PRN Reason: SALINE FLUSH Tamsulosin HCl (Flomax) 0.4 mg PO DAILY@1730 [facility] Last Admin: 01/23/20 16:47 Dose: 0.4 mg Documented by: Discharge Diet: Low fat/ Low Cholesterol, 1800 Calorie Control Diet Discharge Activity: - - slowly ease back into normal routine. Call your doctor if you observe: Shortness of breath, Chest pain, Increased palpitations (irregular heartbeat) Home Medications: Medications to take at Discharge gabapentin 300 mg capsule 300 mg PO BID 03/24/18 glimepiride 4 mg tablet 4 mg PO BID tab 03/24/18 saw palmetto 160 mg capsule 160 mg PO BID 03/24/18 sitagliptin 100 mg tablet 100 mg PO DAILY 03/24/18 tamsulosin 0.4 mg capsule 0.4 mg PO DAILY 03/24/18 Aspirin E.C. [Ecotrin] 81 mg PO DAILY@199901/22/20 Ergocalciferol (Vitamin D2) [Vitamin D2] 50,000 unit PO TU 01/22/20 Atorvastatin Calcium [Lipitor] 80 mg PO QHS #30 tab 01/24/20 Metformin HCl [Metformin HCl ER] 2,000 mg PO BREAKFAST #0 01/24/20 Metoprolol Tartrate [Lopressor (beta taj)] 50 mg PO BID #60 tab 01/24/20 Following Prescriptions Were Given to Patient: Atorvastatin Calcium [Lipitor] 80 mg PO QHS #30 tab Transmission Status: Pending to [facility] Metoprolol Tartrate [Lopressor (beta taj)] 50 mg PO BID #60 tab Transmission Status: Pending to [facility] Primary Care Physician: Lalo Hwang MD [Primary Care Provider] - Within 1 Week Please Follow Up With: John Herndon MD When: 2-4 weeks Disposition: Home Minutes spent on discharge:: 32 Patient Condition:: Fair Medical Necessity - Tobacco Use Smoking Status: Former smoker Tobacco Use: Cigars Meaningful Use Info Meaningful Use Diagnoses (Choose all that apply): AMI - AMI/Post PCI/Angioplasty Aspirin given w/in 24hrs of arrival?: Yes ASA at discharge?: Yes Statins at discharge?: Yes Curly/ARB at discharge?: No Reason Curly/ARB not ordered:: Worsening renal dysfunctn Beta Taj at discharge?: Yes Done w/ Acute RI measure.: Yes Documented LVEF (%): 50 Inpatient E&M: 56150 Disch Hosp
[2020-01-24 13:31] LABS: Bedside Glucose 165 mg/dL (70-110)
--- NOTE | 2020-01-24 14:21 | PHA.DC.MC ---
Pharmacy Service has performed discharge medication reconciliation and counseling for this patient. 1. ATORVASTATIN 80MG PO QHS 2. METOPROLOL TARTRATE 50MG PO BID The patient's discharge medication list was reviewed for discrepancies and discrepancies were resolved. Home Medications gabapentin 300 mg capsule 300 mg PO BID 03/24/18 glimepiride 4 mg tablet 4 mg PO BID tab 03/24/18 saw palmetto 160 mg capsule 160 mg PO BID 03/24/18 sitagliptin 100 mg tablet 100 mg PO DAILY 03/24/18 tamsulosin 0.4 mg capsule 0.4 mg PO DAILY 03/24/18 Aspirin E.C. [Ecotrin] 81 mg PO DAILY@199901/22/20 Ergocalciferol (Vitamin D2) [Vitamin D2] 50,000 unit PO 01/22/20 Atorvastatin Calcium [Lipitor] 80 mg PO QHS #30 tab 01/24/20 Metformin HCl [Metformin HCl ER] 2,000 mg PO BREAKFAST #0 01/24/20 Metoprolol Tartrate [Lopressor (beta daniella)] 50 mg PO BID #60 tab 01/24/20 The patient was counseled on the following discharge medications and changes in medications for homegoing were reviewed. The Reason for Use, instructions for use, and potential side effects were reviewed for all new medications. The patient's questions regarding all of their medications were answered. The patient was able to verbally demonstrate an understanding of their discharge medications.
== END 2020-01-24 13:55 | disposition home or self-care (01) | DRG 281 ==
LOC: ED 14:09 → PCU 14:52
PROVIDERS: Admitting Provider Internal Medicine; Emergency Provider Emergency Medicine; PCP Family Medicine
DX: I21.4 Non-ST elevation (NSTEMI) myocardial infarction (principal); I50.20 Unspecified systolic (congestive) heart failure; I13.0 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 1 through stage 4 chronic kidney disease, or unspecified chronic kidney disease; Z68.41 Body mass index [BMI] 40.0-44.9, adult; E78.5 Hyperlipidemia, unspecified; I35.0 Nonrheumatic aortic (valve) stenosis; E11.40 Type 2 diabetes mellitus with diabetic neuropathy, unspecified; Z87.891 Personal history of nicotine dependence; E66.9 Obesity, unspecified; E11.22 Type 2 diabetes mellitus with diabetic chronic kidney disease; N18.3 Chronic kidney disease, stage 3 (moderate); N40.0 Benign prostatic hyperplasia without lower urinary tract symptoms; E55.9 Vitamin D deficiency, unspecified; G89.29 Other chronic pain; D64.9 Anemia, unspecified; I25.10 Atherosclerotic heart disease of native coronary artery without angina pectoris; Z85.72 Personal history of non-Hodgkin lymphomas
CPT/HCPCS: 36415; 71045; 80048; 80053; 80061; 80076; 82962; 83036; 83735; 84443; 84484; 85025; 85730; 93005; 93458; 97802; 99152; 99153; 99251; 99285; J7030; Q9967; A4216; C1769; C1887; C1894; G0463; J1940; J2405

== ENCOUNTER → 2020-06-20 06:56 | Outpatient (CLI) | payer MEDICARE, OTHER, SELFPAY ==
[2020-02-09 10:54] VITALS: BMI 41.6
--- NOTE | 2020-06-14 13:10 | RAD_ITS ---
STUDY: X-RAY CHEST REASON FOR EXAM: Male, 80 years old. dyspnea on exertion TECHNIQUE: PA and lateral views of the chest. COMPARISON: 01/22/2020 FINDINGS: The lungs are clear and expanded. There is no demonstrated pleural abnormality. Normal size heart. Normal mediastinum and sirisha. Normal visualized pulmonary arteries. Normal visualized aortic arch and descending thoracic aorta. Normal visualized thoracic spine. Normal visualized ribs, clavicles, and shoulders. There is no demonstrated abnormality of the visualized soft tissue structures of the upper abdomen. RAD/Chest PA and Lateral IMPRESSION: Normal x-ray examination of the chest. Electronically Signed: Jabari Gusman MD at 9:16 EST Tel , Service support ,
[2020-06-14 13:30] LABS: Hematocrit 34.7 % (40-54); Hemoglobin 11.4 g/dL (13.0-16.5); Mean Corp Hgb Conc 32.9 g/dL (32-36); Mean Corpuscular Hgb 28.1 pg (27.0-32.0); Mean Corpuscular Volume 85.5 fL (80-94); Mean Platelet Vol. 10.5 fl (6.2-12.0); Platelet Count 188 K/mm3 (150-450); RBC Distribution Width CV 14.5 % (11.6-14.6); Red Blood Count 4.06 M/mm3 (4.6-6.2); White Blood Count 6.9 K/mm3 (4.4-11.0)
[2020-06-14 14:00] LABS: Anion Gap 5 (5-15); BUN 23 mg/dL (7-18); BUN/Creat Ratio 16.9 RATIO (10-20); Calcium,Total 8.9 mg/dL (8.5-10.1); Chloride 105 mmol/L (98-107); Creatinine, Serum 1.36 mg/dL (0.70-1.30); EST Glomerular Filtration Rate 54 mL/min (>60); Est Glom Filt Rate - Afr Amer 65 mL/min (>60); Glucose 164 mg/dL (74-106); Potassium 4.6 mmol/L (3.5-5.1); Sodium Level 137 mmol/L (136-145)
[2020-06-14 14:03] LABS: BNP,B-Type NATRIURETIC PEPTIDE 510.2 pg/mL (0-100)
--- NOTE | 2020-06-20 11:11 | STRESSREP ---
Stress Test Report Pharmacologic myocardial perfusion stress test. 79-year-old man with a history of aortic valvular heart disease hypertension. Stress protocol: Resting EKG demonstrates normal sinus rhythm with a rate of 71 bpm normal intervals are noted left axis deviation is present. Occasional premature ventricular complexes noted. 0.4 mg of regadenoson was infused per usual protocol followed by rapid intravenous saline flush injection continuous EKG monitoring was performed. The maximum heart rate attained was 82 bpm which was 58% of maximum predicted heart rate the maximum workload was 1 metabolic equivalent. At rest there were no ST or T wave changes noted to suggest abnormal flow reserve at peak infusion nonspecific ST changes were noted frequent premature ventricular complexes were present. The resting blood pressure is 118/80 mmHg with a final blood pressure 110/70 mmHg. Myocardial perfusion protocol. 14.6 mCi of technetium 99m sestamibi was injected at rest. 0.4 mg of regadenoson was infused per usual protocol. At peak infusion 44.2 mCi of technetium 99m sestamibi was injected stress images were obtained stress and rest images were reconstructed and compared in the short axis vertical and horizontal long axis. Gated images was obtained Perfusion SPECT analysis: Review of the images demonstrate normal perfusion in all areas of myocardium except for small area in the inferolateral wall on the stress images with a perfusion defect which is also present on the resting images. The above is suggestive of a previous inferolateral infarct. No ischemia is noted. Gated SPECT analysis: The gated ejection fraction is 39%. Conclusion: Pharmacologic myocardial perfusion stress test with evidence of inferolateral infarct and a small to medium sized zone. Mild left ventricular systolic dysfunction.
== END ==
PROVIDERS: PCP Family Medicine; Referring Provider Internal Medicine Cardiovascular Disease; Visit Provider Internal Medicine Cardiovascular Disease
DX: R06.00 Dyspnea, unspecified (principal); I25.10 Atherosclerotic heart disease of native coronary artery without angina pectoris; I35.0 Nonrheumatic aortic (valve) stenosis; R53.83 Other fatigue; I21.4 Non-ST elevation (NSTEMI) myocardial infarction
CPT/HCPCS: 36415; 71046; 78452; 80048; 83880; 85027; 93017; A9500; A4216; J2785

== ENCOUNTER → 2020-06-21 12:08 | Outpatient (CLI) | payer MEDICARE, OTHER, SELFPAY ==
[2020-06-21 13:20] LABS: Anion Gap 5 (5-15); BUN 28 mg/dL (7-18); BUN/Creat Ratio 17.8 RATIO (10-20); Chloride 104 mmol/L (98-107); Creatinine, Serum 1.57 mg/dL (0.70-1.30); EST Glomerular Filtration Rate 45 mL/min (>60); Est Glom Filt Rate - Afr Amer 55 mL/min (>60); Glucose 178 mg/dL (74-106); Potassium 4.4 mmol/L (3.5-5.1); Sodium Level 138 mmol/L (136-145)
== END ==
PROVIDERS: PCP Family Medicine; Referring Provider Physician Assistant Medical; Visit Provider Physician Assistant Medical
DX: I25.10 Atherosclerotic heart disease of native coronary artery without angina pectoris (principal); I50.9 Heart failure, unspecified
CPT/HCPCS: 36415; 80048

== ENCOUNTER 2020-08-14 06:33 | Day surgery (SDC) | payer MEDICARE, OTHER, SELFPAY ==
[2020-08-02 11:02] VITALS: BMI 41.2
[2020-08-02 12:50] LABS: Absolute Lymphocyte Count 1.28 X10^3/uL (0.83-4.51); Basophil# 0.03 X10^3/uL; Basophil% 0.4 % (0-1); Eosinophil# 0.12 X10^3/uL; Eosinophils% 1.5 % (0-5); Hematocrit 34.9 % (40-54); Hemoglobin 11.6 g/dL (13.0-16.5); Lymphocyte # 1.28 X10^3/ul (4.0); Lymphocyte % 15.8 % (19-41); Mean Corp Hgb Conc 33.2 g/dL (32-36); Mean Corpuscular Hgb 28.4 pg (27.0-32.0); Mean Corpuscular Volume 85.3 fL (80-94); Mean Platelet Vol. 10.4 fl (6.2-12.0); Monocyte# 0.63 X10^3/uL; Monocyte% 7.8 % (0-10); NRBC Flagged by Analyzer 0 % (0-5); Neutrophil # 6.02 X10^3/uL (2.7-7.7); Neutrophil % 74.3 % (47-70); Platelet Count 161 K/mm3 (150-450); RBC Distribution Width CV 14.5 % (11.6-14.6); RBC Distribution Width SD 44.7 fl (35.1-43.9); Red Blood Count 4.09 M/mm3 (4.6-6.2); White Blood Count 8.1 K/mm3 (4.4-11.0)
[2020-08-02 13:00] LABS: International Normalized Ratio 1.1; Prothrombin Time (Protime)PT. 13.9 SECONDS (11.7-14.9)
[2020-08-02 13:01] LABS: Partial Thromboplast Time 35.8 Seconds (24.1-36.2)
[2020-08-02 13:20] LABS: Anion Gap 8 (5-15); BUN 28 mg/dL (7-18); BUN/Creat Ratio 17.7 RATIO (10-20); Calcium,Total 9.3 mg/dL (8.5-10.1); Chloride 103 mmol/L (98-107); Creatinine, Serum 1.58 mg/dL (0.70-1.30); EST Glomerular Filtration Rate 45 mL/min (>60); Est Glom Filt Rate - Afr Amer 55 mL/min (>60); Glucose 156 mg/dL (74-106); Potassium 4.5 mmol/L (3.5-5.1); Sodium Level 138 mmol/L (136-145)
[2020-08-13 09:17] VITALS: BMI 41.2
--- NOTE | 2020-08-14 08:31 | CL.D_ITS ---
Patient Name: EMMETT SERRANO Study Date: 08/14/2020 Performing: John Herndon MD Ht: 72.04 inches 183 cm : 1940 Wt: 304.24 lbs 138 kg Age: 80 Gender: male BSA: 2.55 PROCEDURE(S) PERFORMED ZB85-HRT/COR/LV CLINICAL PROFILE AND INDICATIONS Indications: Suspected CAD, Other, Valvular Disease Heart Failure: None Stress/Imaging Date: 07/31/20ress Test with SPECT MPI: Positive Low Risk CAD Presentations: Symptom unlikely to be ischemic. CONCLUSIONS Mild to moderate CAD with no high-grade stenosis. Moderate disease noted in the right coronary arter y. RECOMMENDATIONS Evaluate with respect possible valve replacement. We will repeat echocardiogram for reassessment of aortic valve disease DESCRIPTION OF PROCEDURE The patient arrived to the procedure lab. The risks and benefits of the procedure as well as a full d escription of our services here and current unavailability of surgical backup were fully explained to the patient and/or their significant other prior to the catheterization. The Timeout was completed, verifying the correct patient and procedure. The patient's procedural site was prepped and draped in the usual fashion. Local anesthetic was given subcutaneously to right radial region with Lidocaine 2% . Using a modified Seldinger technique, arterial access was obtained via the right radial artery, a 6 Fr sheath was inserted. Left Coronary Artery selective angiography was performed in multiple views u sing a 5 Fr. 4.0 [place] catheter. Right Coronary Artery selective angiography was then performed in mu ltiple views using a 5 Fr. 4.0 [place] catheter. Left Ventriculography was performed in [place] projection using a 5 Fr. [place] catheter. LV to AO pullback pressures were then recorded.The arterial sheath was pulled and a TR Band was applied for hemostasis w/ 14ml air CORONARY ANGIOGRAPHY DOMINANCE: Right Dominant LEFT HEART ASSESSMENT Left Ventricular Ejection Fraction: by LV Gram 37 % Global Hypokinesis - Moderate Depressed Left Ventricular systolic function LEFT MAIN: Angiographically normal LEFT ANTERIOR DESCENDING ARTERY: Mild luminal irregularities CIRCUMFLEX ARTERY: Mild luminal irregularities less than 30% RIGHT CORONARY ARTERY: MID RCA: Moderate luminal irregularities up to 50% DISTAL RCA: Moderate luminal irregularities up to 50% VALVE FINDINGS: Aortic Valve Stenosis - moderate AORTIC ROOT: Dilated COMPLICATIONS No Complications PROCEDURE MEDICATIONS Versed 1 mg IV Fentanyl 50 mcg IV Oxygen: 2 L/min via nasal cannula IV Fluids: .9 NaCl IV started @ 100 ml/hr 08/14/2020 07:21:51 SUMMARY OF HEMODYNAMIC DATA Time AIR REST ECG 07:00:18 AO 99/41 (61) SA 08:08:57 AO 102/48 (67) 08:09:26 LV 150/6, 14 08:19:40 LV 144/2, 9 08:19:46 LV 147/7, 15 08:20:54 LVp 148/13, 16 08:21:19 AOp 114/48 (68) 08:21:24 RM AIR REST 10:52:00 Signed By John Herndon MD On 08/14/2020 10:53:12 Signed By John Herndon MD On 08/14/2020 08:30:41 John Herndon MD
--- NOTE | 2020-08-14 08:32 | ECHOCS_ITS ---
Reason For Study: Murmur Procedure This was a 2D Doppler, Color Flow transthoracic echocardiogram. Contrast injection was performed. The study was technically difficult. Exam performed portable in patient room. Left Ventricle Normal LV size. Moderate concentric left ventricular hypertrophy. The estimated ejection fraction is 40 %. Mild global left ventricular systolic dysfunction. Infero-Basal: Severely Hypokinetic. Right Ventricle Normal RV size. Normal systolic function. Atria The left atrium is mildly enlarged. The right atrium is mildly enlarged. Mitral Valve Normal mitral valve. Tricuspid Valve Normal tricuspid valve. Mild (1+) tricuspid valve insufficiency. Pulmonary artery systolic pressure is 30 mmHg. Aortic Valve Trisinus/trileaflet aortic valve. Moderate focal aortic valve calcification. Peak aortic valve gradient 54 mmHg. Mean aortic valve gradient 35 mmHg. Moderate aortic stenosis. Calculated aortic valve area (continuity equation) is 0.95 cm2. Pulmonic Valve Normal pulmonic valve. Great Vessels Normal aortic root. The pulmonary artery is normal size. Normal inferior vena cava. Pericardium/Pleural No pericardial effusion. Medication Diluted definity 3ml given slow IV push to enhance endocardial definition. MMode/2D Measurements & Calculations LVIDd: 5.7 cm IVSd: 1.6 cm LVOT diam: 2.2 cm LVIDs: 4.6 cm LVPWd: 1.5 cm RVDd: 4.7 cm FS: 19.7 % LVOT area: 3.9 cm2 Ao root diam: 3.9 cm LAV(MOD-bp): 78.4 ml LA A4 area: 24.8 cm2 LAV(MOD-bp) Indexed: 30.6 ml/m2 LAV(MOD-sp2): 74.8 ml LAV(MOD-sp4): 76.9 ml LA dimension(2D): 4.2 cm RA A4 area: 24.8 cm2 Doppler Measurements & Calculations MV E max chirag: 61.2 cm/sec Lat Peak E' Chirag: 7.4 cm/sec Med Peak E' Chirag: 2.5 cm/sec MV A max chirag: 81.4 cm/sec E/E' lat: 8.3 E/E' med: 24.3 MV E/A: 0.75 Ao V2 max: 368.1 cm/sec LV V1 max: 90.5 cm/sec SV(LVOT): 99.4 ml Ao max P.2 mmHg LV V1 max P.3 mmHg Ao V2 mean: 286.3 cm/sec LV V1 mean P.9 mmHg Ao mean P.1 mmHg LV V1 mean: 65.3 cm/sec Ao V2 VTI: 109.7 cm LV V1 VTI: 25.7 cm JOSSE(I,D): 0.91 cm2 JOSSE(V,D): 0.95 cm2 PA V2 max: 71.7 cm/sec TR max chirag: 250.8 cm/sec TR max P.2 mmHg ECHO/Echo Complete W/ Contrast Interpretation Summary Normal LV size. Moderate concentric left ventricular hypertrophy. The estimated ejection fraction is 40 %. Mild global left ventricular systolic dysfunction. Infero-Basal: Severely Hypokinetic. The left atrium is mildly enlarged. Mean aortic valve gradient 35 mmHg. Calculated aortic valve area (continuity equation) is 0.95 cm2. Moderate aortic stenosis. The extent of the aortic stenosis may be underestimated due to the low ejection fraction. This may represent a form of low-flow low gradient aortic stenosis. Contrast injection w as performed. Ordering Physician: John Herndon Referring Physician: Lalo Hwang Performed By: Lucita Webster RDCS, RVT
== END 2020-08-14 10:45 | disposition home or self-care (01) ==
PROVIDERS: Physician Assistant Medical; PCP Family Medicine; Referring Provider Internal Medicine Cardiovascular Disease; Visit Provider Internal Medicine Cardiovascular Disease
DX: I25.119 Atherosclerotic heart disease of native coronary artery with unspecified angina pectoris (principal); I35.0 Nonrheumatic aortic (valve) stenosis; R01.1 Cardiac murmur, unspecified; E78.5 Hyperlipidemia, unspecified; E66.9 Obesity, unspecified; E11.9 Type 2 diabetes mellitus without complications; I11.0 Hypertensive heart disease with heart failure; I50.9 Heart failure, unspecified; I25.2 Old myocardial infarction; Z79.899 Other long term (current) drug therapy; Z79.84 Long term (current) use of oral hypoglycemic drugs; Z79.82 Long term (current) use of aspirin; Z87.891 Personal history of nicotine dependence
CPT/HCPCS: 36415; 80048; 85025; 85610; 85730; 93306; 93458; 99152; 99153; J7040; Q9957; Q9967; A4216; C1769; C1894; C8929

== ENCOUNTER → 2020-09-25 11:07 | Outpatient (CLI) | payer MEDICARE, OTHER, SELFPAY ==
[2020-09-10 12:34] VITALS: BMI 41.2
[2020-09-25 12:09] LABS: Anion Gap 6 (5-15); BUN 32 mg/dL (7-18); BUN/Creat Ratio 20.6 RATIO (10-20); Calcium,Total 9.1 mg/dL (8.5-10.1); Chloride 103 mmol/L (98-107); Creatinine, Serum 1.55 mg/dL (0.70-1.30); EST Glomerular Filtration Rate 46 mL/min (>60); Est Glom Filt Rate - Afr Amer 56 mL/min (>60); Glucose 145 mg/dL (74-106); Potassium 4.5 mmol/L (3.5-5.1); Sodium Level 136 mmol/L (136-145)
== END ==
PROVIDERS: PCP Family Medicine
DX: I35.0 Nonrheumatic aortic (valve) stenosis (principal)
CPT/HCPCS: 36415; 80048

== ENCOUNTER → 2020-11-20 12:37 | Outpatient (CLI) | payer MEDICARE, OTHER, SELFPAY ==
[2020-11-08 11:00] VITALS: BMI 40.6
--- NOTE | 2020-11-20 12:39 | ECHOCS_ITS ---
Reason For Study: s/p TAVR Procedure This was a 2D Doppler, Color Flow transthoracic echocardiogram. Contrast injection was performed. Exam performed in department. Left Ventricle Normal LV size. The estimated ejection fraction is 47 %. Mild segmental systolic dysfunction (see wall motion). Stage 1 diastolic dysfunction. Mid-Lateral : Hypokinetic. Infero-Basal: Hypokinetic. Lateral-Basal: Hypokinetic. Right Ventricle Normal RV size. Normal systolic function. Atria Normal left atrium. Normal right atrium. Tricuspid Valve Mild tricuspid valve insufficiency. Aortic Valve Bioprosthetic aortic valve. Great Vessels Mildly dilated aortic root. Pericardium/Pleural No pericardial effusion. Medication Diluted definity 4ml given slow IV push to enhance endocardial definition. MMode/2D Measurements & Calculations LVIDd: 5.9 cm IVSd: 1.2 cm LVOT diam: 2.2 cm LVIDs: 4.5 cm LVPWd: 1.1 cm LVOT area: 3.9 cm2 RVDd: 4.9 cm FS: 23.7 % Ao root diam: 4.0 cm LAV(MOD-bp): 65.6 ml LVAd ap4: 43.1 cm2 LAV(MOD-bp) Indexed: 26.4 ml/m2 LVLd ap4: 9.7 cm LAV(MOD-sp2): 91.3 ml EDV(MOD-sp4): 163.6 ml LAV(MOD-sp4): 45.4 ml EDV(sp4-el): 162.8 ml LVAs ap4: 30.3 cm2 LVLs ap4: 8.9 cm ESV(MOD-sp4): 92.7 ml ESV(sp4-el): 87.7 ml EF(MOD-sp4): 43.3 % EF(sp4-el): 46.1 % SV(MOD-sp4): 70.9 ml SV(sp4-el): 75.1 ml LA A4 area: 17.1 cm2 LA dimension(2D): 4.9 cm RA A4 area: 16.9 cm2 Doppler Measurements & Calculations MV E max chirag: 54.0 cm/sec Lat Peak E' Chirag: 5.8 cm/sec Med Peak E' Chirag: 2.8 cm/sec MV A max chirag: 78.5 cm/sec E/E' lat: 9.3 E/E' med: 19.5 MV E/A: 0.69 Ao V2 max: 207.5 cm/sec LV V1 max: 101.8 cm/sec SV(LVOT): 88.9 ml Ao max P.3 mmHg LV V1 max P.2 mmHg Ao V2 mean: 150.0 cm/sec LV V1 mean P.4 mmHg Ao mean P.8 mmHg LV V1 mean: 74.1 cm/sec Ao V2 VTI: 47.4 cm LV V1 VTI: 23.0 cm JOSSE(I,D): 1.9 cm2 JOSSE(V,D): 1.9 cm2 PA V2 max: 76.6 cm/sec TR max chirag: 168.9 cm/sec TR max P.4 mmHg ECHO/Echo Complete W/ Contrast Interpretation Summary Normal LV size. The estimated ejection fraction is 47 %. Mild segmental systolic dysfunction (see wall motion). Stage 1 diastolic dysfunction. Mild tricuspid valve insufficiency. Compared to the previous the left ventricular function is improved and the aort ic valve gradient is much improved following the replacement. Ordering Physician: Jonh Herndon Referring Physician: Lalo Hwang Performed By: Lucita Webster, RAIN, RVT
== END ==
PROVIDERS: PCP Family Medicine; Referring Provider Internal Medicine Cardiovascular Disease; Visit Provider Internal Medicine Cardiovascular Disease
DX: I35.0 Nonrheumatic aortic (valve) stenosis (principal)
CPT/HCPCS: 93306; Q9957; A4216; C8929; J3490

== ENCOUNTER → 2021-01-01 14:09 | Outpatient (CLI) | payer MEDICARE, OTHER, SELFPAY ==
--- NOTE | 2021-01-01 14:20 | RAD_ITS ---
STUDY: X-RAY - LUMBAR SPINE REASON FOR EXAM: Male, 80 years old. BACK PAIN TECHNIQUE: 3 view(s) of the lumbar spine were obtained. COMPARISON: None FINDINGS: Normal lumbar lordosis. There is no substantial scoliosis. There is a normal alignment of the vertebrae. There is multilevel endplate spondylosis of the lumbar vertebrae. There is multi-level degenerative disc disease with multi-level disc space narrowing. Facet joint osteoarthritis. There is atherosclerotic calcification of the abdominal aorta without a demonstrated aneurysm. RAD/Lumbar Spine 2 or 3 Views IMPRESSION: Degenerative changes of the spine, as detailed above. Electronically Signed: Caio Shen MD at 14:21 EDT , Service support ,
--- NOTE | 2021-01-01 14:20 | RAD_ITS ---
STUDY: X-RAY - THORACIC SPINE REASON FOR EXAM: Male, 80 years old. BACK PAIN TECHNIQUE: 3 view(s) of the thoracic spine were obtained. COMPARISON: None. FINDINGS: Normal kyphosis of the thoracic spine. There is no substantial scoliosis. There is multilevel endplate spondylosis of the thoracic vertebrae. There is multilevel disc space narrowing of the thoracic spine. The soft tissue structures are unremarkable. RAD/Thoracic Spine 3 Views IMPRESSION: Multilevel disc space narrowing and spondylosis. Electronically Signed: Caio Shen MD at 14:21 EDT , Service support ,
== END ==
PROVIDERS: PCP Family Medicine; Referring Provider Anesthesiology Pain Medicine; Visit Provider Anesthesiology Pain Medicine
DX: M54.9 Dorsalgia, unspecified (principal)
CPT/HCPCS: 72072; 72100

== ENCOUNTER → 2021-02-24 16:32 | Outpatient (CLI) | payer MEDICARE, OTHER, SELFPAY ==
--- NOTE | 2021-02-24 16:46 | MRI_ITS ---
STUDY: MRI LUMBAR SPINE WITHOUT CONTRAST REASON FOR EXAM: Male, 80 years old. BACK PAIN TECHNIQUE: Standardized fat and water weighted pulse sequences were obtained in the sagittal and axial planes. COMPARISON: 01/01/2021 lumbar spine radiographs FINDINGS: T12-L1: Normal endplates. Normal disc height, hydration and morphology. Normal bilateral facet joints. Normal central canal and bilateral lateral recesses. Normal bilateral intervertebral neural foramina. Normal lumbar lordosis. Mild anterolisthesis at L4-L5. There is no substantial scoliosis. Normal conus medullaris that terminates at the level of L1-2. L1-2: Normal endplates. Normal disc height, hydration and morphology. Normal bilateral facet joints. Normal central canal and bilateral lateral recesses. Normal bilateral intervertebral neural foramina. L2-3: Normal endplates. Disc bulge and ligamentum flavum buckling with mild spinal canal stenosis. Normal bilateral facet joints. Normal bilateral intervertebral neural foramina. L3-4: Normal endplates. Normal disc height, hydration and morphology. Normal bilateral facet joints. Normal central canal and bilateral lateral recesses. Normal bilateral intervertebral neural foramina. L4-5: Normal endplates. Disc bulge. Mild bilateral facet arthrosis. Crowded bilateral lateral recesses. No spinal canal stenosis. Mild bilateral intervertebral neural foraminal stenosis. L5-S1: Normal endplates. Disc bulge. Moderate bilateral facet arthrosis. Normal central canal and bilateral lateral recesses. Mild bilateral intervertebral neural foraminal stenosis. Normal visualized sacral ala. Normal visualized paraspinous soft tissue structures. 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 Mild bilateral neural foraminal stenosis at L4-5 and L5-S1. Electronically Signed: Josiah Agustin MD at 22:31 EDT Tel , Service support ,
== END ==
PROVIDERS: PCP Family Medicine; Referring Provider Anesthesiology Pain Medicine; Visit Provider Anesthesiology Pain Medicine
DX: M54.9 Dorsalgia, unspecified (principal)
CPT/HCPCS: 72148

== ENCOUNTER → 2021-04-04 09:29 | Outpatient (CLI) | payer MEDICARE, OTHER, SELFPAY | PROVIDERS: PCP Family Medicine; Referring Provider Internal Medicine Cardiovascular Disease; Visit Provider Internal Medicine Cardiovascular Disease | DX: Z95.2 Presence of prosthetic heart valve (principal) | CPT/HCPCS: 93225; 93226 ==

== ENCOUNTER → 2021-10-13 | Outpatient (CLI) | payer MEDICARE, OTHER, SELFPAY ==
[2021-10-13 10:28] LABS: Absolute Lymphocyte Count 1.14 X10^3/uL (0.83-4.51); Absolute Neutrophil Count 5.3 X10^3/uL (2.0-7.7); Basophil# 0.04 X10^3/uL; Basophil% 0.5 % (0-1); Eosinophil# 0.15 X10^3/uL; Eosinophils% 2.1 % (0-5); Hematocrit 32.6 % (40-54); Hemoglobin 10.7 g/dL (13.0-16.5); Lymphocyte # 1.14 X10^3/ul (0.83-4.51); Lymphocyte % 15.6 % (19-41); Mean Corp Hgb Conc 32.8 g/dL (32-36); Mean Corpuscular Hgb 29.9 pg (27.0-32.0); Mean Corpuscular Volume 91.1 fL (80-94); Mean Platelet Vol. 10.6 fl (6.2-12.0); Monocyte# 0.62 X10^3/uL; Monocyte% 8.5 % (0-10); NRBC Flagged by Analyzer 0 % (0-5); Neutrophil # 5.29 X10^3/uL (2.7-7.7); Neutrophil % 72.6 % (47-70); Platelet Count 185 K/mm3 (150-450); RBC Distribution Width CV 14.3 % (11.6-14.6); RBC Distribution Width SD 47.7 fl (35.1-43.9); Red Blood Count 3.58 M/mm3 (4.6-6.2); White Blood Count 7.3 K/mm3 (4.4-11.0)
--- NOTE | 2021-10-13 10:29 | ECHOCS_ITS ---
Version 2 Reason For Study: Valve Replacement Eval Procedure This was a 2D Doppler, Color Flow transthoracic echocardiogram. Contrast injection was performed. Exam performed in department. Left Ventricle Normal LV size. Left ventricular systolic function is normal. The estimated ejection fraction is 55 %. Stage 1 diastolic dysfunction. No regional wall motion abnormalities noted. Right Ventricle Normal RV size. Normal systolic function. Atria The left atrium is moderately enlarged. Normal right atrium. Mitral Valve Normal mitral valve. Tricuspid Valve Normal tricuspid valve. Aortic Valve Peak aortic valve gradient 19 mmHg. Mean aortic valve gradient 11 mmHg. Bioprosthetic aortic valve. Pericardium/Pleural No pericardial effusion. Medication Diluted definity 2ml given slow IV push to enhance endocardial definition. MMode/2D Measurements & Calculations LVIDd: 5.0 cm IVSd: 1.6 cm LVOT diam: 2.2 cm LVIDs: 3.8 cm LVPWd: 1.2 cm LVOT area: 3.8 cm2 RVDd: 4.1 cm FS: 23.1 % Ao root diam: 4.2 cm LAV(MOD-bp): 67.3 ml LVAd ap4: 43.9 cm2 LAV(MOD-bp) Indexed: 26.9 ml/m2 LVLd ap4: 9.1 cm LAV(MOD-sp2): 60.9 ml EDV(MOD-sp4): 178.6 ml LAV(MOD-sp4): 74.3 ml EDV(sp4-el): 180.5 ml LVAs ap4: 29.3 cm2 LVLs ap4: 8.0 cm ESV(MOD-sp4): 91.2 ml ESV(sp4-el): 91.1 ml EF(MOD-sp4): 48.9 % EF(sp4-el): 49.5 % SV(MOD-sp4): 87.4 ml SV(sp4-el): 89.4 ml LA A4 area: 23.2 cm2 LA dimension(2D): 4.7 cm RA A4 area: 14.6 cm2 Doppler Measurements & Calculations MV E max chirag: 54.0 cm/sec Lat Peak E' Chirag: 5.0 cm/sec Med Peak E' Chirag: 3.1 cm/sec MV A max chirag: 86.4 cm/sec E/E' lat: 10.7 E/E' med: 17.4 MV E/A: 0.63 Ao V2 max: 219.6 cm/sec LV V1 max: 120.2 cm/sec SV(LVOT): 99.8 ml Ao max P.3 mmHg LV V1 max P.8 mmHg Ao V2 mean: 151.5 cm/sec LV V1 mean P.3 mmHg Ao mean P.2 mmHg LV V1 mean: 83.9 cm/sec Ao V2 VTI: 49.9 cm LV V1 VTI: 26.4 cm JOSSE(I,D): 2.0 cm2 JOSSE(V,D): 2.1 cm2 PA V2 max: 79.0 cm/sec ECHO/Echo Complete W/ Contrast Interpretation Summary Normal LV size. Left ventricular systolic function is normal. The estimated ejection fraction is 55 %. Stage 1 diastolic dysfunction. Bioprosthetic aortic valve. Contrast injection was performed. Ordering Physician: John Herndon Referring Physician: Lalo Hwang Performed By: Lucita Webster, RAIN, RVT
[2021-10-13 10:57] LABS: Anion Gap 5 (5-15); BUN 24 mg/dL (7-18); BUN/Creat Ratio 13.6 RATIO (10-20); Chloride 104 mmol/L (98-107); Creatinine, Serum 1.76 mg/dL (0.70-1.30); EST Glomerular Filtration Rate 40 mL/min (>60); Est Glom Filt Rate - Afr Amer 48 mL/min (>60); Glucose 225 mg/dL (74-106); Potassium 4.4 mmol/L (3.5-5.1); Sodium Level 137 mmol/L (136-145)
== END | disposition home or self-care (01) ==
LOC: CVS 10:28
PROVIDERS: PCP Family Medicine; Referring Provider Internal Medicine Cardiovascular Disease; Visit Provider Internal Medicine Cardiovascular Disease
DX: I35.0 Nonrheumatic aortic (valve) stenosis (principal); I42.8 Other cardiomyopathies; I50.22 Chronic systolic (congestive) heart failure; I25.10 Atherosclerotic heart disease of native coronary artery without angina pectoris; Z95.2 Presence of prosthetic heart valve
CPT/HCPCS: 36415; 80048; 85025; 93306; Q9957; A4216; C8929

== ENCOUNTER 2021-11-12 09:57 | Day surgery (SDC) | payer MEDICARE, OTHER, SELFPAY ==
[2021-11-12] VITALS (7 sets, daily range): BP systolic 105–150; BP diastolic 61–94; PULSE 67–78; RESP 16–18; TEMP 36–36.9; O2SAT 94–98; BMI 40.0
--- NOTE | 2021-11-12 | COLBX_PTH ---
PATIENT: AXEL SERRANO LOC: EN U#:[id number] AGE/SX: 81/M ROOM: RE11/12/[address]: Dr. Fish Cano DO : 1940 BED: DIS: 11/12/2021 SPEC #: [id number] RECD: 11/13/21 09:34 STATUS: JULIEN REAndreina #: [id number] PEYTON: 11/12/21 00:[address]: Fish Cano DEPT: SURGICAL PATHOLOGY RECD BY: Steve Aquino ENTERED: 11/13/21 09:34 SP TYPE: COLON BX NEFTALI DR: Dr. Lalo Hwang MD Tissues: A - Ascending colon B - Cecum, NOS C - Sigmoid colon biopsy Procedures: Surgery Specimen Level IV HEADER OPERATION: Colonoscopy with biopsy (MAC) PRE-OP DIAGNOSIS: Anemia TISSUE SUBMITTED: A - Ascending colon polyp biopsy, B - Cecum biopsy, C - Sigmoid colon polyp biopsy MICROSCOPIC DIAGNOSIS A. Ascending colon polyp, biopsy: Fragments of tubular adenoma. B. Cecum, biopsy: Fragments of tubular adenoma. C. Sigmoid colon polyp, biopsy: Fragments of tubular adenoma. SJ:armand 11/14/2021 MICROSCOPIC DESCRIPTION Slides are reviewed. GROSS DESCRIPTION A - Received in fixative is one container labeled with the patient's name and designated ascending colon polyp. The specimen consists of multiple irregular fragments of light tang soft tissue that in aggregate measure 1 x 0.5 x 0.1 cm. The specimen is totally submitted in one cassette. B - Received in fixative is one container labeled with the patient's name and designated cecum biopsy. The specimen consists of two irregular fragments of light tang soft tissue that in aggregate measure 0.6 x 0.3 x 0.1 cm. The specimen is totally submitted in one cassette. C - Received in fixative is one container labeled with the patient's name and designated sigmoid colon polyp biopsy. The specimen consists of multiple irregular fragments of light tang soft tissue that in aggregate measure 1 x 1 x 0.1 cm. The specimen is totally submitted in one cassette. / AM:armand 11/13/2021 TC:1 CPT: 50321 x3
--- NOTE | 2021-11-12 12:14 | OP.CCLET_ITS ---
02/11/2022 Lalo Hwang Re : Colonoscopy procedure for Van Turner Dear Eri This procedure was performed on Friday, November 12, 2021. My impressions and recommendations are as follows: Impressions : - Preparation of the colon was fair. - Five 1 to 2 mm polyps in the sigmoid colon, in the ascending colon and in the cecum. - Diverticulosis in the recto-sigmoid colon, in the sigmoid colon, in the descending colon and at the splenic flexure. There was no evidence of diverticular bleeding. - Hemorrhoids found on perianal exam. - No specimens collected. Recommendations : - Discharge patient to home. - Resume previous diet. - Continue present medications. - Await pathology results. - Repeat colonoscopy is not recommended due to current age (66 years or older). My findings are described in the full procedure note, which is enclosed. If I can be of further assistance, please feel free to contact me at . Sincerely, Fish Cano, 11/12/2021 12:14:08 PM This report has been signed electronically.
--- NOTE | 2021-11-12 12:14 | OP.COLON_ITS ---
Patient Name: Van Turner Procedure Date: 11/12/2021 11:19 AM Date of : 1940 Age: 81 Procedure: Colonoscopy Indications: Screening for colorectal malignant neoplasm Providers: Fish Cano DO Medicines: Monitored Anesthesia Care Patient Profile: Last Colonoscopy: more than 10 years ago. Complications: No immediate complications. Procedure: Pre-Anesthesia Assessment: - Prior to the procedure, a History and Physical was performed, and patient medications and allergies were reviewed. The patient is competent. The risks and benefits of the procedure and the sedation options and risks were discussed with the patient. All questions were answered and informed consent was obtained. Patient identification and proposed procedure were verified by the physician in the pre-procedure area. Mental Status Examination: alert and oriented. Airway Examination: normal oropharyngeal airway and neck mobility. Respiratory Examination: clear to auscultation. CV Examination: normal. Prophylactic Antibiotics: The patient does not require prophylactic antibiotics. Prior Anticoagulants: The patient has taken no previous anticoagulant or antiplatelet agents. After reviewing the risks and benefits, the patient was deemed in satisfactory condition to undergo the procedure. The anesthesia plan was to use moderate sedation / analgesia (conscious sedation). Immediately prior to administration of medications, the patient was re-assessed for adequacy to receive sedatives. The heart rate, respiratory rate, oxygen saturations, blood pressure, adequacy of pulmonary ventilation, and response to care were monitored throughout the procedure. The physical status of the patient was re-assessed after the procedure. After I obtained informed consent, the scope was passed under direct vision. Throughout the procedure, the patient's blood pressure, pulse, and oxygen saturations were monitored continuously. The Colonoscope was introduced through the anus and advanced to the cecum, identified by appendiceal orifice and ileocecal valve. The colonoscopy was performed without difficulty. The patient tolerated the procedure well. The quality of the bowel preparation was fair. Scope In: 11:31:32 AM Scope Withdrawal Time 0 hours 13 minutes 42 seconds Scope Out: 12:04:25 PM Total Procedure Duration Time 0 hours 32 minutes 53 seconds Findings: Five sessile polyps were found in the sigmoid colon, ascending colon and cecum. The polyps were 1 to 2 mm in size. Verification of patient identification for the specimen was done. Estimated blood loss was minimal. Multiple small and large-mouthed diverticula were found in the recto-sigmoid colon, sigmoid colon, descending colon and splenic flexure. There was no evidence of diverticular bleeding. Hemorrhoids were found on perianal exam. Impression: - Preparation of the colon was fair. - Five 1 to 2 mm polyps in the sigmoid colon, in the ascending colon and in the cecum. - Diverticulosis in the recto-sigmoid colon, in the sigmoid colon, in the descending colon and at the splenic flexure. There was no evidence of diverticular bleeding. - Hemorrhoids found on perianal exam. - No specimens collected. Recommendation: - Discharge patient to home. - Resume previous diet. - Continue present medications. - Await pathology results. - Repeat colonoscopy is not recommended due to current age (66 years or older). Procedure Code(s): --- Professional --- 47036, Colonoscopy, flexible; diagnostic, including collection of specimen(s) by brushing or washing, when performed (separate procedure) CPT copyright 2017 [employer]. All rights reserved. The codes documented in this report are preliminary and upon bevel mill operator review may be revised to meet current compliance requirements. Fish Cano DO 11/12/2021 12:14:08 PM This report has been signed electronically. Number of Addenda: 1 Note Initiated On: 11/12/2021 11:19 AM Addendum Number: 1 Addendum Date: 02/11/2022 6:29:37 AM MAC was used as sedation for this procedure. Fish Cano DO 02/11/2022 6:29:43 AM This report has been signed electronically.
--- NOTE | 2021-11-13 16:34 | HP.PCM_ITS ---
[facility] - General General Date of Admission: 11/12/21 Date of Service: 11/12/21 Chief Complaint: Screening colonoscopy HPI Narrative EMMETT SERRANO, is a 81 M who presents for screening colonoscopy. He has past medical history of aortic stenosis which is nonrheumatic status post TURP on anticoagulation who presents for screening colonoscopy. He also has a history of stage III CHF and nonischemic cardiomyopathy with as well as not #lymphoma. He does not have any problems with his bowels. Is not having nausea, vomiting or diarrhea. [facility] Medical History (Updated 11/13/21 @ 16:[address] Whitten Friend, DO) Anemia Arthritis Atherosclerotic heart disease of [place] coronary artery without angina pectoris Back pain Cardiology follow-up encounter CHF (congestive heart failure), NYHA class III Chronic kidney disease (CKD) Chronic systolic (congestive) heart failure Constipation Depression Dietary restriction Diffuse large B cell lymphoma Easy bruising Fall Former smoker History of echocardiogram History of edema History of heart attack History of non-ST elevation myocardial infarction (NSTEMI) (01/22/20) History of pain when walking History of stress test 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) HLD (hyperlipidemia) Kidney stones Loss of hearing Mild chronic anemia Multiple premature ventricular complexes Non-Hodgkin lymphoma Non-ischemic cardiomyopathy Nonrheumatic aortic (valve) stenosis Obesity Shortness of breath on exertion Splenic artery aneurysm Type 2 diabetes mellitus Uses wheelchair Wears dentures Wears glasses Home Medications glimepiride 4 mg tablet 4 mg PO BID DM 03/24/18 [History Last Taken 08/14/20] sitagliptin 100 mg tablet (Januvia) 100 mg PO DAILY DM 03/24/18 [History Last Taken 01/22/20] tamsulosin 0.4 mg capsule 0.4 mg PO QHS PROSTATE 03/24/18 [History Last Taken 01/21/20] aspirin 81 mg tablet,delayed release 81 mg PO DAILY@1999 [facility] 01/22/20 [History Last Taken 08/14/20] ergocalciferol (vitamin D2) 1,250 mcg (50,000 unit) capsule 50,000 unit PO TU SUPPLEMENT 01/22/20 [History Last Taken 01/16/20] metformin 500 mg tablet,extended release 24 hr 2,000 mg PO BREAKFAST DM ##0 01/24/20 [Rx Last Taken 01/22/20] metoprolol tartrate 50 mg tablet 50 mg PO BID #60 tabs 01/24/20 [Rx Last Taken 08/14/20] atorvastatin 40 mg tablet 80 mg PO Q OTHER DAY #30 tabs 09/10/20 [Rx Last Taken Unknown] saw palmetto 160 mg capsule 300 mg PO DAILY SUPPLEMENT 11/08/20 [History Last Taken Unknown] gabapentin 100 mg capsule 300 mg PO BID 10/16/21 [History Last Taken Unknown] folic acid 1 mg tablet 1 mg PO DAILY 11/11/21 [History Last Taken Unknown] furosemide 40 mg tablet 40 mg PO DAILY 11/11/21 [History Last Taken Unknown] Allergy/AdvReac Type Severity Reaction Status Date / Time No Known Allergies Allergy Verified 11/12/21 10:25 Family History (Reviewed 10/16/21 @ 10:47 by Reagan Webster HUMAN RESOURCES SPECIALIST, HUMAN RESOURCES SPECIALIST-C) Mother Heart disease Father Heart disease Brother Heart disease Surgical History (Updated 11/11/21 @ 12:36 by Celia Simms) History of left heart catheterization (08/14/20) Hx of cataract surgery Hx of cholecystectomy Social History Smoking Status: Former smoker alcohol intake: never substance use type: does not use ROS Review of Systems ROS Unobtainable: other Constitutional Constitutional: Denies fatigue, fever(s), poor appetite, weight gain or weight loss ENT HEENT: Denies mouth lesions Cardiovascular Cardiovascular: Denies abdominal bloating, abdominal edema or abdominal pain Respiratory/Chest Respiratory/Chest: Denies change in mental status, change in phlegm color, chest congestion or chest tightness Gastrointestinal Gastrointestinal: Denies belching, bloating, change in bowel habits, change in stool character, chewing difficulty, coffee ground emesis, constipation, cramping, diarrhea, dyspepsia, dysphagia, early satiety, excessive flatus, fecal incontinence, heartburn, hematemesis, hematochezia, hemorrhoids, loose stools, melena, nausea, odynophagia, rectal bleeding, tenesmus, vomiting or weight changes Genitourinary Genitourinary: Denies abdominal discomfort, burning urination or itching Musculoskeletal Musculoskeletal: Reports as per HPI; Denies muscle weakness or myalgias Integumentary Integumentary: Denies jaundice Neurologic Neurologic: Denies lack of coordination or weakness Psychiatric Psychiatric: Denies confusion, depression, memory loss, mood swings, paranoia or suicidal ideation Endocrine Endocrinology: Denies systems reviewed and no addt'l complaints, except as documented Hematologic/Lymphatic Hematologic/Lymphatic: Denies anemia, easy bleeding, easy bruising or lymphadenopathy Allergic/Immunologic Allergic/Immunologic: Denies systems reviewed and no addt'l complaints, except as documented Vital Signs Vital Signs Vital Signs: Weight Weight: 295 lb 6.711 oz Body Mass Index (BMI) 40.0 Assessment & Plan Assessment/Plan (1) Encounter for screening colonoscopy: PLAN: He will undergo evaluation of his colon. He was explained alternatives, risk, benefits including infection, sepsis, perforation, need for discharge or . He will have an ASA of 3
== END 2021-11-12 13:10 | disposition home or self-care (01) ==
LOC: EN 09:58 → AC 09:59
PROVIDERS: PCP Family Medicine; Referring Provider Family Medicine; Visit Provider Internal Medicine Gastroenterology
PROC: 0DJD8ZZ Inspection of Lower Intestinal Tract, Via Natural or Artificial Opening Endoscopic (ICD-10-PCS; CPT 45378; principal; 2021-11-12 11:10)
DX: Z12.11 Encounter for screening for malignant neoplasm of colon (principal); I42.8 Other cardiomyopathies; I50.22 Chronic systolic (congestive) heart failure; E11.22 Type 2 diabetes mellitus with diabetic chronic kidney disease; D12.5 Benign neoplasm of sigmoid colon; D12.0 Benign neoplasm of cecum; D12.2 Benign neoplasm of ascending colon; K57.30 Diverticulosis of large intestine without perforation or abscess without bleeding; K64.9 Unspecified hemorrhoids; N18.9 Chronic kidney disease, unspecified; E78.5 Hyperlipidemia, unspecified; I25.10 Atherosclerotic heart disease of native coronary artery without angina pectoris; I25.2 Old myocardial infarction; M54.9 Dorsalgia, unspecified; G89.29 Other chronic pain; Z79.82 Long term (current) use of aspirin; Z79.84 Long term (current) use of oral hypoglycemic drugs; Z87.891 Personal history of nicotine dependence; Z79.899 Other long term (current) drug therapy
CPT/HCPCS: 45378; 88305; J7120; J2405

== ENCOUNTER → 2021-12-02 | Outpatient (CLI) | payer MEDICARE, OTHER, SELFPAY ==
[2021-12-02 11:59] LABS: Anion Gap 8 (5-15); BUN 21 mg/dL (7-18); BUN/Creat Ratio 12.1 RATIO (10-20); Calcium,Total 9.3 mg/dL (8.5-10.1); Chloride 102 mmol/L (98-107); Creatinine, Serum 1.73 mg/dL (0.70-1.30); EST Glomerular Filtration Rate 40 mL/min (>60); Est Glom Filt Rate - Afr Amer 49 mL/min (>60); Glucose 199 mg/dL (74-106); Potassium 4.2 mmol/L (3.5-5.1); Sodium Level 136 mmol/L (136-145)
== END | disposition home or self-care (01) ==
LOC: LAB 10:57
PROVIDERS: PCP Family Medicine; Referring Provider Nurse Practitioner Family; Visit Provider Nurse Practitioner Family
DX: I50.9 Heart failure, unspecified (principal)
CPT/HCPCS: 36415; 80048

== ENCOUNTER → 2022-03-10 | Outpatient (CLI) | payer MEDICARE, OTHER, SELFPAY | END | disposition home or self-care (01) | LOC: SL 20:56 | PROVIDERS: PCP Family Medicine; Visit Provider Family Medicine | DX: G47.33 Obstructive sleep apnea (adult) (pediatric) (principal) | CPT/HCPCS: 95811 ==

== ENCOUNTER → 2022-03-25 | Outpatient (CLI) | payer MEDICARE, OTHER, SELFPAY | END | disposition home or self-care (01) | LOC: SL 20:18 | PROVIDERS: PCP Family Medicine; Referring Provider Family Medicine; Visit Provider Family Medicine | DX: G47.33 Obstructive sleep apnea (adult) (pediatric) (principal) | CPT/HCPCS: 95811 ==

== ENCOUNTER → 2022-06-24 | Outpatient (CLI) | payer MEDICARE, OTHER, SELFPAY | END | disposition home or self-care (01) | LOC: SL 20:22 | PROVIDERS: PCP Family Medicine; Referring Provider Family Medicine; Visit Provider Family Medicine | DX: G47.33 Obstructive sleep apnea (adult) (pediatric) (principal); G47.36 Sleep related hypoventilation in conditions classified elsewhere | CPT/HCPCS: 95811 ==

== ENCOUNTER → 2022-10-23 | Outpatient (CLI) | payer MEDICARE, OTHER, SELFPAY | END | disposition home or self-care (01) | LOC: SL 10:55 | PROVIDERS: PCP Family Medicine; Visit Provider Psychiatry & Neurology Sleep Medicine | DX: G47.33 Obstructive sleep apnea (adult) (pediatric) (principal); Z46.89 Encounter for fitting and adjustment of other specified devices | CPT/HCPCS: 98960; G0463 ==

== ENCOUNTER → 2023-07-20 | Outpatient (CLI) | payer MEDICARE, OTHER, SELFPAY ==
[2023-07-23 15:08] LABS: PROELU- Albumin, Urine 66.7 % (.); PROELU- Alpha-1-Globulin,Ur 1.5 % (.); PROELU- Alpha-2-Globulin,Ur 5.4 % (.); PROELU- Beta Globulin, Ur 16.1 % (.); PROELU- Gamma Globulin, Ur 10.2 % (.); Total Protein, Ur 57.9 mg/dL (Not Estab.)
== END | disposition home or self-care (01) ==
LOC: LABSPEC 15:46
PROVIDERS: PCP Family Medicine; Visit Provider Internal Medicine Nephrology
DX: N18.32 Chronic kidney disease, stage 3b (principal)
CPT/HCPCS: 82043; 82570; 84166

== ENCOUNTER → 2023-07-26 | Outpatient (CLI) | payer MEDICARE, OTHER, SELFPAY ==
--- NOTE | 2023-07-26 11:57 | US_ITS ---
PROCEDURE: RENAL ULTRASOUND - COMPLETE REASON FOR EXAM: Male, 83 years old. Chronic kidney disease TECHNIQUE: Ultrasound evaluation of the bilateral kidneys was performed with real-time ultrasonography and static grayscale imaging. COMPARISON: None. FINDINGS: RIGHT KIDNEY: Normal location of the right kidney which is normal in size. The right kidney measures 12.3 x 5.8 x 5 cm. There is a normal cortex of the right kidney. The renal cortex measures 1.5 cm. There is no right renal mass or cyst. Small echogenic shadow in the right kidney measuring about 5 mm could represent nonobstructing stone. There is no right hydronephrosis. DISTAL RIGHT URETER: There is non-visualization of the distal right ureter. There is no demonstrated right ureterovesical junction calculus. There is a visualized right ureteral jet. LEFT KIDNEY: Normal location of the left kidney which is normal in size. The left kidney measures 12.2 x 4.7 x 6.1 cm. There is a normal cortex of the left kidney. The renal cortex measures 1.7 cm. There is no left renal mass or cyst. There are no left renal calculi. There is no left hydronephrosis. DISTAL LEFT URETER: There is non-visualization of the distal left ureter. There is no demonstrated left ureterovesical junction calculus. There is a visualized left ureteral jet. BLADDER: The distended urinary bladder has a volume of 1079 ml. There is a normal wall thickness of the distended urinary bladder. The empty urinary bladder has a volume of 714 ml. There is thickening and trabeculation of the bladder wall near the floor. There is no demonstrated bladder calculi. US/Kidney and Bladder IMPRESSION: 1. No evidence of hydronephrosis. 2. Probable small nonobstructing stone in the right kidney. 3. Large post void residue with thickening of the bladder wall could be due to chronic bladder outlet obstruction. Electronically Signed: Leonidas Mcdaniel MD at 11:47 EDT ,
== END | disposition home or self-care (01) ==
LOC: US 11:55
PROVIDERS: PCP Family Medicine; Referring Provider Internal Medicine Nephrology; Visit Provider Internal Medicine Nephrology
DX: N18.32 Chronic kidney disease, stage 3b (principal)
CPT/HCPCS: 76770

== ENCOUNTER → 2023-08-24 | Outpatient (CLI) | payer MEDICARE, OTHER, SELFPAY ==
[2023-08-24 11:17] LABS: Albumin, Serum 2.7 g/dL (3.2-5.0); BUN 25 mg/dL (7-18); BUN/Creat Ratio 13.1 RATIO (10-20); Calcium,Total 8.6 mg/dL (8.5-10.1); Chloride 110 mmol/L (98-107); Creatinine, Serum 1.91 mg/dL (0.70-1.30); EST Glomerular Filtration Rate 36 mL/min (>60); Est Glom Filt Rate - Afr Amer 44 mL/min (>60); Glucose 139 mg/dL (74-106); Phosphorus 3.7 mg/dL (2.5-4.9); Potassium 4.4 mmol/L (3.5-5.1); Sodium Level 139 mmol/L (136-145)
[2023-08-24 11:17] LABS: PTHIN 61.3 pg/mL (18.4-80.1)
[2023-08-25 15:08] LABS: Alpha-1-Globulins 0.2 g/dL (0.0-0.4); Alpha-2-Globulins 0.8 g/dL (0.4-1.0); Gamma Globulin 0.9 g/dL (0.4-1.8); IMMUNOFIXATION RESULT,S Comment: (.); Immunoglobulin A 430 mg/dL (61-437); Immunoglobulin G 988 mg/dL (603-1613); Immunoglobulin M 97 mg/dL (15-143); PROEL- TOTAL PROTEIN 5.8 g/dL (6.0-8.5)
== END | disposition home or self-care (01) ==
LOC: LAB 10:27
PROVIDERS: PCP Family Medicine; Referring Provider Internal Medicine Nephrology; Visit Provider Internal Medicine Nephrology
DX: N18.32 Chronic kidney disease, stage 3b (principal)
CPT/HCPCS: 36415; 80069; 82784; 83970; 84165; 86334

== ENCOUNTER → 2023-11-16 | Outpatient (CLI) | payer MEDICARE, OTHER, SELFPAY ==
[2023-11-16 12:56] LABS: Absolute Lymphocyte Count 1.27 X10^3/uL (0.83-4.51); Absolute Neutrophil Count 5.5 X10^3/uL (2.0-7.7); Basophil# 0.05 X10^3/uL; Basophil% 0.6 % (0-1); Eosinophil# 0.37 X10^3/uL; Eosinophils% 4.6 % (0-5); Hematocrit 27.5 % (40-54); Hemoglobin 8.9 g/dL (13.0-16.5); Lymphocyte # 1.27 X10^3/ul (0.83-4.51); Lymphocyte % 15.9 % (19-41); Mean Corp Hgb Conc 32.4 g/dL (32-36); Mean Corpuscular Hgb 28.3 pg (27.0-32.0); Mean Corpuscular Volume 87.6 fL (80-94); Mean Platelet Vol. 10.7 fl (6.2-12.0); Monocyte# 0.75 X10^3/uL; Monocyte% 9.4 % (0-10); NRBC Flagged by Analyzer 0 % (0-5); Neutrophil # 5.52 X10^3/uL (2.7-7.7); Neutrophil % 68.9 % (47-70); Platelet Count 178 K/mm3 (150-450); RBC Distribution Width CV 15.4 % (11.6-14.6); RBC Distribution Width SD 49.4 fl (35.1-43.9); Red Blood Count 3.14 M/mm3 (4.6-6.2)
[2023-11-16 12:59] LABS: BNP,B-Type NATRIURETIC PEPTIDE 329.2 pg/mL (0-100)
[2023-11-16 13:22] LABS: Anion Gap 7 (5-15); BUN 32 mg/dL (7-18); BUN/Creat Ratio 16.8 RATIO (10-20); Calcium,Total 8.8 mg/dL (8.5-10.1); Chloride 109 mmol/L (98-107); Creatinine, Serum 1.91 mg/dL (0.70-1.30); EST Glomerular Filtration Rate 36 mL/min (>60); Est Glom Filt Rate - Afr Amer 43 mL/min (>60); Glucose 179 mg/dL (74-106); Potassium 4.1 mmol/L (3.5-5.1); Sodium Level 141 mmol/L (136-145)
== END | disposition home or self-care (01) ==
PROVIDERS: PCP Family Medicine; Referring Provider Nurse Practitioner Family; Visit Provider Nurse Practitioner Family
DX: R06.09 Other forms of dyspnea (principal); D64.9 Anemia, unspecified
CPT/HCPCS: 36415; 80048; 83880; 85025

== ENCOUNTER → 2023-12-09 | Outpatient (CLI) | payer MEDICARE, OTHER, SELFPAY ==
--- NOTE | 2023-12-09 14:34 | ECHOCS_ITS ---
Reason For Study: TAVR EVAL Procedure This was a 2D Doppler, Color Flow transthoracic echocardiogram. The study was technically difficult. Contrast injection was performed. Exam performed in department. Left Ventricle Normal LV size. The left ventricular ejection fraction is 45 %. Mid-Inferior: Hypokinetic. Mid- inferoseptal : Hypokinetic. Infero-Basal: Hypokinetic. Posterior-Basal: Hypokinetic. There are regional wall motion abnormalities as specified. Right Ventricle Normal RV size. Normal systolic function. Atria The left atrium is moderately enlarged. The right atrium is mildly enlarged. Mitral Valve Normal mitral valve. Tricuspid Valve Normal tricuspid valve. Aortic Valve Peak aortic valve gradient 19 mmHg. Bioprosthetic aortic valve. Pulmonic Valve Normal pulmonic valve. Great Vessels Normal aortic root. The pulmonary artery is normal size. Normal inferior vena cava. Pericardium/Pleural No pericardial effusion. Medication 22 gauge I.V. with prn adaptor inserted into right arm. Diluted definity 1.5ml given slow IV push to enhance endocardial definition. MMode/2D Measurements & Calculations LVIDd: 4.6 cm IVSd: 1.8 cm LVOT diam: 2.2 cm LVIDs: 3.8 cm LVPWd: 1.7 cm FS: 18.1 % LVOT area: 3.7 cm2 Ao root diam: 4.1 cm LAV(MOD-sp4): 94.6 ml LVAd ap4: 53.3 cm2 LVLd ap4: 9.6 cm EDV(MOD-sp4): 244.9 ml EDV(sp4-el): 251.6 ml LVAs ap4: 35.8 cm2 LVLs ap4: 8.1 cm ESV(MOD-sp4): 138.3 ml ESV(sp4-el): 135.3 ml EF(MOD-sp4): 43.5 % EF(sp4-el): 46.2 % SV(MOD-sp4): 106.6 ml SV(sp4-el): 116.3 ml LA A4 area: 27.8 cm2 LA dimension(2D): 4.8 cm RA A4 area: 26.6 cm2 TAPSE: 1.9 cm Time Measurements MV dec time: 0.33 sec Doppler Measurements & Calculations MV E max chirag: 67.5 cm/sec Lat Peak E' Chirag: 9.9 cm/sec Med Peak E' Chirag: 4.4 cm/sec MV A max chirag: 77.3 cm/sec E/E' lat: 6.8 E/E' med: 15.5 MV E/A: 0.87 MV V2 max: 75.8 cm/sec MV dec slope: 210.4 cm/sec2 Ao V2 max: 221.4 cm/sec MV max P.3 mmHg Ao max P.7 mmHg MV V2 mean: 47.3 cm/sec Ao V2 mean: 155.9 cm/sec MV mean P.00 mmHg Ao mean P.2 mmHg MV V2 VTI: 33.8 cm Ao V2 VTI: 59.6 cm PA V2 max: 79.9 cm/sec PA V2 mean: 50.8 cm/sec ECHO/Echo Complete W/ Contrast Interpretation Summary Normal LV size. The left ventricular ejection fraction is 45 %. Bioprosthetic aortic valve. Peak aortic valve gradient 19 mmHg. Ordering Physician: Reagan Webster Referring Physician: Reagan Webster Performed By: Nadiya Aj RCS
== END | disposition home or self-care (01) ==
LOC: CVS 14:30
PROVIDERS: PCP Family Medicine; Referring Provider Nurse Practitioner Family; Visit Provider Nurse Practitioner Family
DX: Z95.2 Presence of prosthetic heart valve (principal)
CPT/HCPCS: 93306; Q9957; A4216; C8929

== ENCOUNTER → 2024-01-14 | Outpatient (CLI) | payer MEDICARE, OTHER, SELFPAY ==
--- NOTE | 2024-01-14 17:17 | STRESSREP ---
Stress Test Report Pharmacologic myocardial perfusion stress test. 83-year-old man with a history of reduced ejection fraction Resting EKG demonstrates sinus bradycardia with a rate of 54 bpm. Resting blood pressure is 122/70 mmHg. 0.4 mg of regadenoson was infused per usual protocol followed by rapid intravenous saline flush injection. Continuous EKG monitoring was performed. The maximum heart rate was 65 bpm which was 47% of max impacted heart rate the maximum workload was 1 metabolic equivalent. At rest there were no ST or T wave changes noted to suggest ischemia and at peak infusion nonspecific ST changes were noted which did not meet the criteria for ischemia. No clinical angina is noted. The final blood pressure was 122/70 mmHg. Myocardial perfusion protocol. 15 mCi of technetium 99m sestamibi was injected at rest. 0.4 mg of regadenoson was infused per usual protocol. At peak infusion 44.8 mCi of technetium 99m sestamibi was injected stress images were obtained stress and rest images were reconstructed and compared in the short axis vertical long and horizontal long axis. Gated images were also obtained. Perfusion SPECT analysis: Review of the stress images demonstrate normal uptake of tracer noted in all areas of the myocardium, with a medium size defect noted in the inferolateral wall. The resting images demonstrate a similar pattern suggestive of a previous inferolateral myocardial infarction. No areas of reversibility are noted suggest ischemia. Gated SPECT analysis: The gated ejection fraction is 49%. Conclusion: Normal pharmacologic myocardial perfusion stress test. Previous inferolateral infarct present Reduced ejection fraction.
== END | disposition home or self-care (01) ==
PROVIDERS: PCP Family Medicine; Referring Provider Nurse Practitioner Family; Visit Provider Nurse Practitioner Family
DX: Z95.2 Presence of prosthetic heart valve (principal); I42.8 Other cardiomyopathies; I25.10 Atherosclerotic heart disease of native coronary artery without angina pectoris; R93.1 Abnormal findings on diagnostic imaging of heart and coronary circulation
CPT/HCPCS: 78452; 93017; A9500; A4216; J2785

== ENCOUNTER → 2024-03-08 | Outpatient (CLI) | payer MEDICARE, OTHER, SELFPAY ==
[2024-03-08 12:31] LABS: Hematocrit 31.9 % (40-54); Hemoglobin 10.3 g/dL (13.0-16.5); Mean Corp Hgb Conc 32.3 g/dL (32-36); Mean Corpuscular Hgb 29.1 pg (27.0-32.0); Mean Corpuscular Volume 90.1 fL (80-94); Mean Platelet Vol. 10.3 fl (6.2-12.0); Platelet Count 200 K/mm3 (150-450); RBC Distribution Width SD 49.4 fl (35.1-43.9); Red Blood Count 3.54 M/mm3 (4.6-6.2); White Blood Count 8.2 K/mm3 (4.4-11.0)
[2024-03-08 13:02] LABS: Albumin, Serum 2.8 g/dL (3.2-5.0); BUN 33 mg/dL (7-18); BUN/Creat Ratio 16.6 RATIO (10-20); Calcium,Total 8.9 mg/dL (8.5-10.1); Chloride 107 mmol/L (98-107); Creatinine, Serum 1.99 mg/dL (0.70-1.30); EST Glomerular Filtration Rate 34 mL/min (>60); Est Glom Filt Rate - Afr Amer 41 mL/min (>60); Ferritin 311 ng/mL (26-388); Glucose 141 mg/dL (74-106); Iron 63 ug/dL (65-175); Iron Binding Capacity,Total 244 ug/dL (250-450); PERCENT IRON SATURATION 25.8 % (15.0-55.0); Phosphorus 4.3 mg/dL (2.5-4.9); Potassium 4.6 mmol/L (3.5-5.1); Sodium Level 137 mmol/L (136-145)
== END | disposition home or self-care (01) ==
LOC: LAB 11:45
PROVIDERS: PCP Family Medicine; Referring Provider Internal Medicine Nephrology; Visit Provider Internal Medicine Nephrology
DX: N18.32 Chronic kidney disease, stage 3b (principal); D50.9 Iron deficiency anemia, unspecified
CPT/HCPCS: 36415; 80069; 82728; 83540; 83550; 85027

== ENCOUNTER 2024-03-16 10:45 | Emergency (ER) | payer MEDICARE, OTHER, SELFPAY ==
[2024-03-16 10:45] VITALS: BP 128/66; PULSE 78; RESP 14; TEMP 36.3; O2SAT 94
== END 2024-03-16 13:05 | disposition home or self-care (01) ==
PROVIDERS: Emergency Provider Emergency Medicine; PCP Family Medicine; Visit Provider Emergency Medicine
DX: S00.31XA Abrasion of nose, initial encounter (principal); G20.A1 Parkinson's disease without dyskinesia, without mention of fluctuations; I13.0 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 1 through stage 4 chronic kidney disease, or unspecified chronic kidney disease; I50.22 Chronic systolic (congestive) heart failure; E11.22 Type 2 diabetes mellitus with diabetic chronic kidney disease; S09.90XA Unspecified injury of head, initial encounter; S40.022A Contusion of left upper arm, initial encounter; S41.111A Laceration without foreign body of right upper arm, initial encounter; S51.012A Laceration without foreign body of left elbow, initial encounter; S61.412A Laceration without foreign body of left hand, initial encounter; S80.212A Abrasion, left knee, initial encounter; S80.211A Abrasion, right knee, initial encounter; M25.512 Pain in left shoulder; W18.09XA Striking against other object with subsequent fall, initial encounter; Y92.511 Restaurant or cafe as the place of occurrence of the external cause; N18.9 Chronic kidney disease, unspecified; F32.A Depression, unspecified; I25.2 Old myocardial infarction; I35.0 Nonrheumatic aortic (valve) stenosis; I25.10 Atherosclerotic heart disease of native coronary artery without angina pectoris; D64.9 Anemia, unspecified; E66.9 Obesity, unspecified; E78.5 Hyperlipidemia, unspecified; Z95.2 Presence of prosthetic heart valve; Z85.72 Personal history of non-Hodgkin lymphomas; Z90.49 Acquired absence of other specified parts of digestive tract; Z79.82 Long term (current) use of aspirin; Z79.84 Long term (current) use of oral hypoglycemic drugs; Z79.899 Other long term (current) drug therapy; Z87.891 Personal history of nicotine dependence
CPT/HCPCS: 70450; 72125; 73030; 73080; 73090; 99282

== ENCOUNTER 2024-04-24 16:13 | Inpatient (IN) | payer MEDICARE, OTHER, SELFPAY ==
[2024-04-24] VITALS (7 sets, daily range): BP systolic 146–188; BP diastolic 52–104; PULSE 71–109; RESP 16–23; TEMP 36.6–37.1; O2SAT 93–97; BMI 37.5; BMI 34.0
--- NOTE | 2024-04-24 16:30 | EKG12_ITS ---
Test Reason : ALTERED LOC Blood Pressure : */* mmHG Vent. Rate : 68 BPM Atrial Rate : 68 BPM P-R Int : 178 ms QRS Dur : 130 ms QT Int : 430 ms P-R-T Axes : 25 -32 118 degrees QTcB Int : 457 ms Normal sinus rhythm Left axis deviation Left ventricular hypertrophy with QRS widening and repolarization abnormality ( R in aVL , [place] pr oduct ) Abnormal ECG Confirmed by MARCUS VILLANUEVA, WAN ([id number]), department editor SUMIT PACHECO ([id number]) on 04/26/2024 6:35:05 AM Referred By: Confirmed By: WAN VELAZQUEZ MD
--- NOTE | 2024-04-24 16:30 | CT_ITS ---
EXAM: CT HEAD WITHOUT INTRAVENOUS CONTRAST CLINICAL INDICATION: Intermittent delirium TECHNIQUE: Multiple axial images were obtained of the head without intravenous contrast. This CT exam was performed using one or more of the following dose reduction techniques: automated exposure control, adjustment of the mA and/or kV according to patient size, and/or use of iterative reconstruction technique. COMPARISON: 03/16/2024 FINDINGS: BRAIN AND EXTRA-AXIAL SPACES: There is mild enlargement of ventricular system and cortical sulci. There is hypoattenuation in the periventricular white matter. No intra- or extra-axial hemorrhage. No evidence of acute infarct. No intracranial mass or mass effect. There is preservation of the reid/white matter interface. Posterior fossa structures are unremarkable. Basal cisterns are patent. BONES/JOINTS: Unremarkable. No discrete lytic or blastic abnormalities. SINUSES: Unremarkable as visualized. Clear. MASTOID AIR CELLS: Unremarkable. Clear. ORBITS: Visualized globes, extraocular muscles, optic nerves and retrobulbar fat appear unremarkable. CT/Brain/Head without Contrast IMPRESSION: 1. No acute intracranial abnormality. There has been no significant change from the reference examination. 2. Senescent change with small vessel ischemia. Electronically Signed: Zia Jackson MD at 17:17 EST ,
--- NOTE | 2024-04-24 16:32 | EX.ED.CRITCA ---
HPI History of Present Illness Chief Complaint: Alt LOC Narrative Narrative: Chief complaint and HPI: Episodic confusion and delirium. 83-year-old male with past medical history of Parkinson's disease, CAD, status post TAVR, CHF, HLD, anemia presents with family for evaluation of episodic confusion and delirium. History is mostly taken by . states for the past 2 weeks patient has had episodic confusion and delirium. She describes visual hallucinations. She states that the patient was recently placed on carbidopa levodopa after recently being off of it prior. She states that she thought maybe it was due to this medication so they talked to the PCP and they told them to stop taking it. states this was a week ago. She states the hallucinations have actually worsened. She endorses a cough. Patient and deny any fever, chills, URI symptoms, shortness of breath, chest pain abdominal pain, nausea, vomiting, dysuria, diarrhea. endorses decreased p.o. intake. She states that patient has had frequent falls secondary to his Parkinson's. Patient does admit to episodic confusion. He currently thinks the year is 1980. states he usually knows the year. Review of systems: See HPI Medications: As listed on the chart Allergies: As listed on the chart PFSH: Per chart Vital signs: As listed on the chart. Reviewed. Physical exam: Gen: Alert, oriented to person and place but not year, NAD Head: Normocephalic, atraumatic Eyes: No sclera icterus, conjunctiva clear, PERRL, EOMI ENT: Dry mucous membranes Neck: Trachea midline, No JVD CV: RRR, no murmurs, mild peripheral edema Resp: Lungs CTA BL, no w/r/c GI: Abd soft, non-distended, non-tender, no r/r/g Musc: Move all extremities, no deformity Skin: Warm, dry, mild erythema and chronic wounds on the lower extremities anteriorly Neuro: Alert, grossly intact, sensation intact Psych: Cooperative, appropriate mood and affect [facility] Medical History (Updated 04/24/24 @ 21:[address] Rey Dominguez MD) Parkinson disease Loss of hearing Wears glasses Wears dentures Depression Uses wheelchair Arthritis Anemia Easy bruising Back pain Dietary restriction Former smoker Shortness of breath on exertion History of pain when walking History of edema History of echocardiogram History of stress test Cardiology follow-up encounter History of heart attack Constipation Multiple premature ventricular complexes Fall 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) Chronic kidney disease (CKD) Non-ischemic cardiomyopathy History of non-ST elevation myocardial infarction (NSTEMI) (01/22/20) Chronic systolic (congestive) heart failure CHF (congestive heart failure), NYHA class III Atherosclerotic heart disease of [place]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 Mild chronic anemia Nonrheumatic aortic (valve) stenosis Non-Hodgkin lymphoma Obesity Splenic artery aneurysm Type 2 diabetes mellitus Kidney stones HLD (hyperlipidemia) Home Medications ?Medication ?Instructions ?Recorded ?Last Taken ?Type glimepiride 4 mg tablet 4 mg PO BID DM 03/24/18 08/14/20 History aspirin 81 mg tablet,delayed 81 mg PO DAILY@1999 [facility] 01/22/20 08/14/20 History release metoprolol tartrate 50 mg tablet 50 mg PO BID #60 tabs 01/24/20 08/14/20 Rx folic acid 1 mg tablet 1 mg PO DAILY 11/11/21 Unknown History atorvastatin 40 mg tablet 40 mg PO DAILY 02/20/22 Unknown History cholecalciferol (vitamin D3) 1,250 50,000 unit PO QWEEK 02/20/22 Unknown History mcg (50,000 unit) capsule sertraline 50 mg tablet 50 mg PO DAILY 02/20/22 Unknown History ferrous gluconate 240 mg (27 mg 240 mg PO BID 11/17/22 Unknown History iron) tablet mecobalamin (vitamin B12) 1,000 1,000 mcg PO DAILY 11/16/23 Unknown History mcg chewable tablet metformin 500 mg tablet,extended 500 mg PO BID DM 11/16/23 Unknown History release 24 hr saw palmetto 1 cap PO DAILY 11/16/23 Unknown History sitagliptin phosphate 50 mg tablet 50 mg PO QDAY 11/16/23 Unknown History (Januvia) furosemide 40 mg tablet See Rx Instructions .Route 04/19/24 Unknown Rx .COMPLEX #90 tabs tamsulosin 0.4 mg capsule (Flomax) 0.8 mg PO DAILY 04/24/24 Unknown History Allergy/AdvReac Type Severity Reaction Status Date / Time No Known Allergies Allergy Verified 04/24/24 16:19 Family History Mother Heart disease Father Heart disease Brother Heart disease Surgical History History of left heart catheterization (08/14/20) Hx of cataract surgery Hx of cholecystectomy Social History Smoking Status: Former smoker how long ago did patient quit smokin alcohol intake: never substance use type: does not use caffeine: Yes Type: coffee Number of servings: 2 EXAM Physical Exam Const Vital Signs: 04/24/24 16:14 04/24/24 17:58 04/24/24 20:00 Temperature 98.8 F 98 F Temperature Source Oral Oral Pulse Rate 71 73 87 Respiratory Rate 16 18 18 Blood Pressure 155/52 H 168/53 H 188/104 H Blood Pressure Mean 86 91 132 Pulse Ox 93 95 95 Oxygen Delivery Method Room Air Room Air Room Air 04/24/24 21:09 04/24/24 22:00 04/24/24 22:43 Temperature 98.2 F Temperature Source Pulse Rate 85 93 106 H Respiratory Rate 23 H 21 H 20 H Blood Pressure 159/90 H 175/75 H 146/88 H Blood Pressure Mean 113 108 107 Pulse Ox 95 93 97 Oxygen Delivery Method Room Air MDM MDM MDM Narrative Medical decision making narrative: 83-year-old male with past medical history of Parkinson's disease, CAD, status post TAVR, CHF, HLD, anemia presents with family for evaluation of episodic confusion and delirium. Differential diagnosis includes but is not limited to UTI, electrolyte abnormality, pneumonia, viral illness, intracranial pathology, symptomatic Parkinson's. Patient has dry mucous membranes therefore NS bolus ordered. Confusion workup ordered including CT head. EKG and checks x-ray reviewed see below. CBC without leukocytosis. Patient has baseline anemia. BMP shows mild hyperkalemia 5.4 with worsening renal insufficiency with a creatinine of 2.47. His baseline appears to be around 2 on chart review. UA negative for UTI. CT brain without any acute intracranial abnormality. Patient has chronic changes. At this point in time, no clear etiology for patient's symptoms. May be secondary to Parkinson's disease versus medication side effect versus worsening renal insufficiency. Family and patient were updated of all the results and the plan for admission for further monitoring and workup. Family confirmed understand the plan. Patient was discussed with the hospital service Dr. Dominguez and patient was admitted for observation. After admission but before patient was transferred to the floor I was notified by nursing for concern of ventricular tachycardia and the patient on the monitor. On presentation to the room, patient is alert and talking. Asymptomatic without chest pain or shortness of breath. He is tachycardic into the 150s/160s. EKG was obtained and appears to be atrial fibrillation with RVR and PVC/aberrancy versus ventricular tachycardia. Amiodarone bolus ordered and patient's tachycardia improved to the 120/110s. Repeat EKG was performed and again shows atrial fibrillation with RVR. Patient will be started on amiodarone drip. Patient has high [id number] score. Hospitalist was contacted and I spoke with Dr. Dominguez. Hold off on heparin drip as he will start Eliquis. Requested TSH to be drawn. This was ordered. Patient was transferred to the floor in stable condition. EKG: Interpreted by me/EM physician: EKG shows normal sinus rhythm with left ventricular hypertrophy. No acute ischemic changes. Heart rate 68. Diagnostic: Interpreted by me/EM physician: Chest x-ray not met pneumonia, effusion, pneumothorax, cardiomegaly 30 minutes of critical care time utilized in managing the patient. This is due to high probability of deterioration of the patient based on the patient's condition and excludes any separately billable procedures. Impression: 1. Episodic delirium/confusion 2. New onset atrial fibrillation with RVR 3. Worsening renal insufficiency 4. Chronic anemia 5. History of Parkinson's disease Lab Data Labs: Laboratory Results - last 24 hr 04/24/24 04/24/24 04/24/24 16:22 18:40 18:48 WBC 10.9 RBC 3.67 L Hgb 10.6 L Hct 33.4 L MCV 91.0 MCH 28.9 MCHC 31.7 L RDW Std Deviation 51.3 H RDW Coeff of Wendy 15.7 H Plt Count 233 MPV 9.9 Immature Gran % (Auto) 0.600 Neut % (Auto) 80.5 H Lymph % (Auto) 9.3 L [place] % (Auto) 7.2 Eos % (Auto) 2.1 Baso % (Auto) 0.3 Absolute Neuts (auto) 8.8 H Absolute Lymphs (auto) 1.01 Nucleated RBC % 0 Sodium 137 Potassium 5.4 H Chloride 108 H Carbon Dioxide 25.0 Anion Gap 4 L BUN 31 H Creatinine 2.47 H Estim Creat Clear Calc 31.04 Est GFR (MDRD) Af Amer 32 L Est GFR (MDRD) Non-Af 27 L BUN/Creatinine Ratio 12.6 Glucose 137 H Calcium 9.4 Total Bilirubin 0.70 AST 9 L ALT 12 L Alkaline Phosphatase 76 Troponin I High Sens 26 24 Total Protein 7.1 Albumin 2.9 L Globulin 4.2 Albumin/Globulin Ratio 0.7 L TSH 3.140 Urine Color Yellow Urine Clarity Clear Urine pH 6.0 Ur Specific [place] 1.010 Urine Protein 30 H Urine Glucose (UA) Normal Urine Ketones Negative Urine Occult Blood Negative Urine Nitrite Negative Urine Bilirubin Negative Urine Urobilinogen Normal Ur Leukocyte Esterase Negative Urine RBC 0-5 SEEN Urine WBC 0-5 SEEN Ur Squamous Epith Cells 0 SEEN Urine Bacteria RARE Urine Mucus 0 SEEN Radiography Diagnostic Testing: Clinical Impression(s) from Imaging Studies Brain CT 04/24/24 16:30 IMPRESSION: 1. No acute intracranial abnormality. There has been no significant change from the reference examination. 2. Senescent change with small vessel ischemia. Electronically Signed: Zia Jackson MD at 17:17 EST , Chest X-Ray 04/24/24 16:43 IMPRESSION: No radiographic evidence of acute cardiopulmonary disease. Electronically Signed: Zia Jackson MD at 16:57 EST , Discharge Plan Disposition Disposition: Acute Care Hospital [facility] Discharge Date/Time: 04/24/24 23:29
[2024-04-24 16:42] LABS: Absolute Lymphocyte Count 1.01 X10^3/uL (0.83-4.51); Absolute Neutrophil Count 8.8 X10^3/uL (2.0-7.7); Basophil# 0.03 X10^3/uL; Basophil% 0.3 % (0-1); Eosinophil# 0.23 X10^3/uL; Eosinophils% 2.1 % (0-5); Hematocrit 33.4 % (40-54); Hemoglobin 10.6 g/dL (13.0-16.5); Lymphocyte # 1.01 X10^3/ul (0.83-4.51); Lymphocyte % 9.3 % (19-41); Mean Corp Hgb Conc 31.7 g/dL (32-36); Mean Corpuscular Hgb 28.9 pg (27.0-32.0); Mean Platelet Vol. 9.9 fl (6.2-12.0); Monocyte# 0.78 X10^3/uL; Monocyte% 7.2 % (0-10); NRBC Flagged by Analyzer 0 % (0-5); Neutrophil # 8.78 X10^3/uL (2.7-7.7); Neutrophil % 80.5 % (47-70); Platelet Count 233 K/mm3 (150-450); RBC Distribution Width CV 15.7 % (11.6-14.6); RBC Distribution Width SD 51.3 fl (35.1-43.9); Red Blood Count 3.67 M/mm3 (4.6-6.2); White Blood Count 10.9 K/mm3 (4.4-11.0)
--- NOTE | 2024-04-24 16:43 | RAD_ITS ---
EXAM: XR CHEST, 2 VIEWS CLINICAL INDICATION: Cough TECHNIQUE: Frontal and lateral views of the chest. COMPARISON: 06/14/2020 FINDINGS: LUNGS AND PLEURAL SPACES: Unremarkable. No consolidation or edema. No pneumothorax. No effusion. HEART: Unremarkable. Cardiac silhouette not enlarged. MEDIASTINUM: Central airways and mediastinal contour are unremarkable. BONES/JOINTS: Unremarkable. No acute fracture. SOFT TISSUES: Unremarkable. RAD/Chest PA and Lateral IMPRESSION: No radiographic evidence of acute cardiopulmonary disease. Electronically Signed: Zia Jackson MD at 16:57 EST ,
[2024-04-24] MEDS: 0.9% Normal Saline (1000mL) 1,000 ML 1000 ML IV (16:58)
[2024-04-24 17:10] LABS: ALB/GLOB Ratio 0.7 RATIO (0.9-2.4); AST(SGOT) 9 U/L (15-37); Alanine Aminotransfer ALT/SGPT 12 U/L (16-61); Albumin, Serum 2.9 g/dL (3.2-5.0); Alkaline Phosphatase 76 U/L (45-117); Anion Gap 4 (5-15); BUN 31 mg/dL (7-18); BUN/Creat Ratio 12.6 RATIO (10-20); Calcium,Total 9.4 mg/dL (8.5-10.1); Chloride 108 mmol/L (98-107); Creatinine, Serum 2.47 mg/dL (0.70-1.30); EST Glomerular Filtration Rate 27 mL/min (>60); Est Glom Filt Rate - Afr Amer 32 mL/min (>60); Estimated Creatinine Clearance 31.04 ml/min; Globulin 4.2 g/dL (2.2-4.2); Glucose 137 mg/dL (74-106); Potassium 5.4 mmol/L (3.5-5.1); Protein, Total 7.1 g/dL (6.4-8.2); Sodium Level 137 mmol/L (136-145); Troponin-I HS (w/2H Reflex) 26 pg/mL (3.0-78.0)
--- NOTE | 2024-04-24 18:07 | ED.RN ---
multiple RNs unable to get straight cath d/t anatomy. pale external placed.
[2024-04-24 18:34] LABS: Reflex Troponin-HS? (from REC) Y
[2024-04-24 18:52] LABS: Mucous, Urine 0 SEEN /hpf (<or=2+); Squamous Epithelial Cells - UA 0 SEEN /hpf (0-5)
[2024-04-24 18:55] LABS: Color, Urine Yellow (Yellow); Glucose, Dipstick Normal (Normal); Ketone-Dipstick Negative (Negative); Leukocyte Esterase-Dipstick Negative /ul (Negative); Nitrite-Dipstick Negative (Negative); Occult Blood-Urine Negative /ul (Negative); Protein-Dipstick 30 mg/dl (Negative); Urine Bilirubin Dipstick Negative (Negative); Urine Clarity Clear (Clear); Urine Urobilinogen Normal (Normal)
[2024-04-24 19:05] LABS: Troponin-I HS 24 pg/mL (3.0-78.0)
[2024-04-24 19:43] LABS: Bacteria RARE /hpf (None Seen); Red Blood Cells-Urine 0-5 SEEN /hpf (0-5); White Blood Cells 0-5 SEEN /hpf (0-5)
--- NOTE | 2024-04-24 20:45 | HP.PCM.HOS_ITS ---
HPI - General General Date of Admission: 04/24/24 HPI Narrative AXEL SERRANO, is a 83 M who presents to the hospital with 2 weeks of altered mental status and hallucinations. Family thought that it might have been due to the new Sinemet prescription for his Parkinson's initially when they stopped it about a week ago they thought that he had improved slightly however he continued to have the symptoms for the last week that are waxing and waning. He does have some hallucinations like the garbage can moving across the room or during my evaluation he had something in his hand that he gave to his , there is nothing there. Workup in the ER was unremarkable, no leukocytosis no fever, infectious workup was negative with normal UA and viral panel. The only major abnormality was renal insufficiency, his baseline creatinine has been around 1.2 and is currently 2.47 and he is on gabapentin as an outpatient that he has been on for several years per the . [facility] Medical History (Updated 04/24/24 @ 21:[address] Rey Dominguez MD) Parkinson disease Loss of hearing Wears glasses Wears dentures Depression Uses wheelchair Arthritis Anemia Easy bruising Back pain Dietary restriction Former smoker Shortness of breath on exertion History of pain when walking History of edema History of echocardiogram History of stress test Cardiology follow-up encounter History of heart attack Constipation Multiple premature ventricular complexes Fall 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) Chronic kidney disease (CKD) Non-ischemic cardiomyopathy History of non-ST elevation myocardial infarction (NSTEMI) (01/22/20) Chronic systolic (congestive) heart failure CHF (congestive heart failure), NYHA class III Atherosclerotic heart disease of [place]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 Mild chronic anemia Nonrheumatic aortic (valve) stenosis Non-Hodgkin lymphoma Obesity Splenic artery aneurysm Type 2 diabetes mellitus Kidney stones HLD (hyperlipidemia) Home Medications ?Medication ?Instructions ?Recorded ?Last Taken ?Type glimepiride 4 mg tablet 4 mg PO BID DM 03/24/18 08/14/20 History aspirin 81 mg tablet,delayed 81 mg PO DAILY@1999 [facility] 01/22/20 08/14/20 History release metoprolol tartrate 50 mg tablet 50 mg PO BID #60 tabs 01/24/20 08/14/20 Rx folic acid 1 mg tablet 1 mg PO DAILY 11/11/21 Unknown History atorvastatin 40 mg tablet 40 mg PO DAILY 02/20/22 Unknown History cholecalciferol (vitamin D3) 1,250 50,000 unit PO QWEEK 02/20/22 Unknown History mcg (50,000 unit) capsule sertraline 50 mg tablet 50 mg PO DAILY 02/20/22 Unknown History ferrous gluconate 240 mg (27 mg 240 mg PO BID 11/17/22 Unknown History iron) tablet mecobalamin (vitamin B12) 1,000 1,000 mcg PO DAILY 11/16/23 Unknown History mcg chewable tablet metformin 500 mg tablet,extended 500 mg PO BID DM 11/16/23 Unknown History release 24 hr saw palmetto 1 cap PO DAILY 11/16/23 Unknown History sitagliptin phosphate 50 mg tablet 50 mg PO QDAY 11/16/23 Unknown History (Brody) furosemide 40 mg tablet See Rx Instructions .Route 04/19/24 Unknown Rx .COMPLEX #90 tabs tamsulosin 0.4 mg capsule (Flomax) 0.8 mg PO DAILY 04/24/24 Unknown History Allergy/AdvReac Type Severity Reaction Status Date / Time No Known Allergies Allergy Verified 04/24/24 16:19 Family History Mother Heart disease Father Heart disease Brother Heart disease Surgical History History of left heart catheterization (08/14/20) Hx of cataract surgery Hx of cholecystectomy Social History Smoking Status: Former smoker how long ago did patient quit smokin alcohol intake: never substance use type: does not use caffeine: Yes Type: coffee Number of servings: 2 ROS Constitutional Constitutional: Denies chills, fatigue, fever(s) or malaise Eyes Eyes: Denies blurry vision ENT HEENT: Denies headache(s) or nasal discharge Cardiovascular Cardiovascular: Denies chest pain, dyspnea on exertion or syncope Respiratory/Chest Respiratory/Chest: Denies cough, shortness of breath at rest or shortness of breath with exertion Gastrointestinal Gastrointestinal: Denies constipation, diarrhea, nausea or vomiting Genitourinary Genitourinary: Denies dysuria Neurologic Neurologic: Reports tremor(s); Denies focal weakness or numbness Psychiatric Psychiatric: Reports hallucinations; Denies anxiety or depression Vital Signs Vital Signs Vital Signs: 04/24/24 16:14 04/24/24 17:58 04/24/24 20:00 Temperature 98.8 F 98 F Temperature Source Oral Oral Pulse Rate 71 73 87 Respiratory Rate 16 18 18 Blood Pressure 155/52 H 168/53 H 188/104 H Blood Pressure Mean 86 91 132 Pulse Ox 93 95 95 Oxygen Delivery Method Room Air Room Air Room Air Weight Weight: 277 lb 1.937 oz Body Mass Index (BMI) 37.5 Physical Exam Narrative General: Alert, Oriented x2, Cooperative, No apparent distress HEENT: Atraumatic, PERRLA, EOMI, Normocephalic Oral: Moist Mucosa Neck: Supple, No JVD Lungs: Diminished, Normal air movement, No rhonchi, No wheeze, No rales Cardiovascular: Regular rate, Regular Rhythm, Normal S1, Normal S2, No murmurs Abdomen: Soft, Non Tender, Non-Distended, No Hepato-splenomegaly Extremities: Edema, Capillary Refill Less than 3 Seconds Skin: No rashes, No breakdown Musculoskeletal: No Tenderness to Palpation of Joints or Extremities Neurological: Chronic baseline tremor, moves all extremities Psych/Mental Status: Flat, hallucinations Results Lab / Micro Data 04/24/24 16:22 04/24/24 16:22 Labs: Laboratory Results - last 24 hr 04/24/24 16:22: WBC 10.9, RBC 3.67 L, Hgb 10.6 L, Hct 33.4 L, MCV 91.0, MCH 28.9, MCHC 31.7 L, RDW Std Deviation 51.3 H, RDW Coeff of Wendy 15.7 H, Plt Count 233, MPV 9.9, Immature Gran % (Auto) 0.600, Neut % (Auto) 80.5 H, Lymph % (Auto) 9.3 L, [place] % (Auto) 7.2, Eos % (Auto) 2.1, Baso % (Auto) 0.3, Absolute Neuts (auto) 8.8 H, Absolute Lymphs (auto) 1.01, Nucleated RBC % 0, Sodium 137, P otassium 5.4 H, Chloride 108 H, Carbon Dioxide 25.0, Anion Gap 4 L, BUN 31 H, C reatinine 2.47 H, Estim Creat Clear Calc 31.04, Est GFR (MDRD) Af Amer 32 L, Est GFR (MDRD) Non-Af 27 L, BUN/Creatinine Ratio 12.6, Glucose 137 H, Calcium 9.4, Total Bilirubin 0.70, AST 9 L, ALT 12 L, Alkaline Phosphatase 76, Troponin I High Sens 26, Total Protein 7.1, Albumin 2.9 L, Globulin 4.2, Albumin/Globulin Ratio 0.7 L 04/24/24 18:40: Troponin I High Sens 24 04/24/24 18:48: Urine Color Yellow, Urine Clarity Clear, Urine pH 6.0, Ur Specific [place] 1.010, Urine Protein 30 H, Urine Glucose (UA) Normal, Urine Ketones Negative, Urine Occult Blood Negative, Urine Nitrite Negative, Urine Bilirubin Negative, Urine Urobilinogen Normal, Ur Leukocyte Esterase Negative, Urine RBC 0-5 SEEN, Urine WBC 0-5 SEEN, Ur Squamous Epith Cells 0 SEEN, Urine Bacteria RARE, Urine Mucus 0 SEEN Micro: Microbiology 04/24/24 16:35 Mucosa - Nose SARS-CoV-2, Influenza & RSV (PCR) - Final Imaging Radiology Impression Brain CT 04/24/24 16:30 IMPRESSION: 1. No acute intracranial abnormality. There has been no significant change from the reference examination. 2. Senescent change with small vessel ischemia. Electronically Signed: Zia Jackson MD at 17:17 EST , Chest X-Ray 04/24/24 16:43 IMPRESSION: No radiographic evidence of acute cardiopulmonary disease. Electronically Signed: Zia Jackson MD at 16:57 EST , Assessment & Plan Assessment/Plan (1) Hallucinations: PLAN: Plan 1. Hallucinations with baseline of Parkinson's ? Family has noted also episodes of combativeness that could indicate underlying dementia ? Symptoms of only been going on for 2 weeks and the only abnormality so far is her renal insufficiency, does not meet the level for an KOFI ? Continue with IV fluids ? Will hold the Sinemet and gabapentin ? He does have a neurology appointment with the [facility] on Wednesday 2. Essential HTN/HLD/chronic systolic CHF ? Continue with his home blood pressure medications ? With a slight renal insufficiency will hold his Lasix ? Continue with his home metoprolol 3. DM2 ? Will hold his metformin, sitagliptin, glimepiride ? Sign scale insulin ? Accu-Cheks ACHS ? Will monitor make adjustments as necessary 4. BPH ? Stable ? Continue with Flomax DVT: SCDs 75 minutes was spent on direct patient care, including documentation as well as chart review and collaboration with colleagues Charges/Coding Visit Charges Inpatient E&M: 86165 Init Hosp L3
[2024-04-24] MEDS: Amiodarone 150 MG in Dextrose 5%-Water (100mL Bag) 100 ML 600 MG IV BOLUS (22:22)
[2024-04-24] MEDS: Amiodarone 360 MG in Dextrose 5% Viaflo Bag 192.8 ML 33.3 MG CONT INF (22:43)
--- NOTE | 2024-04-24 22:51 | EKG12_ITS ---
Test Reason : RUNS VTACH Blood Pressure : */* mmHG Vent. Rate : 154 BPM Atrial Rate : * BPM P-R Int : * ms QRS Dur : 140 ms QT Int : 288 ms P-R-T Axes : * -22 160 degrees QTcB Int : 461 ms Critical Test Result: High HR Atrial fibrillation with rapid ventricular response with premature ventricular or aberrantly conducte d complexes Left bundle branch block Abnormal ECG Confirmed by MARCUS VILLANUEVA, WAN ([id number]), publishing editor SUMIT PACHECO ([id number]) on 04/26/2024 6:36:26 AM Referred By: Confirmed By: WAN VELAZQUEZ MD
--- NOTE | 2024-04-24 23:26 | ECHOCS_ITS ---
Reason For Study: Afib/Flutter Procedure This was a 2D Doppler, Color Flow transthoracic echocardiogram. The study was technically difficult. Contrast injection was performed. Exam performed portable in patient room. Left Ventricle Normal LV size. Mild concentric left ventricular hypertrophy. The left ventricular ejection fraction is 40 %. There is mild to moderate global hypokinesis of the left ventricle. Right Ventricle Normal RV size. Normal systolic function. Aortic Valve Peak aortic valve gradient 21 mmHg. Mean aortic valve gradient 10 mmHg. Bioprosthetic aortic valve. Pulmonic Valve Normal pulmonic valve. Mild (1+) pulmonic valve insufficiency. Great Vessels Mildly dilated aortic root. The pulmonary artery is normal size. Inferior vena cava collapse with respiration. Pericardium/Pleural No pericardial effusion. Medication Diluted definity 3ml given slow IV push to enhance endocardial definition. MMode/2D Measurements & Calculations LVIDd: 5.7 cm IVSd: 1.2 cm LVOT diam: 2.1 cm LVIDs: 4.0 cm LVPWd: 1.4 cm LVOT area: 3.6 cm2 RVDd: 4.5 cm FS: 30.0 % Ao root diam: 4.1 cm LAV(MOD-bp): 119.3 ml LVAd ap4: 41.5 cm2 LAV(MOD-bp) Indexed: 50.9 ml/m2 LVLd ap4: 8.7 cm LAV(MOD-sp2): 116.2 ml EDV(MOD-sp4): 157.8 ml LAV(MOD-sp4): 107.6 ml EDV(sp4-el): 168.2 ml LVAs ap4: 32.7 cm2 LVLs ap4: 8.5 cm ESV(MOD-sp4): 104.1 ml ESV(sp4-el): 107.7 ml EF(MOD-sp4): 34.0 % EF(sp4-el): 36.0 % SV(MOD-sp4): 53.7 ml SV(sp4-el): 60.5 ml LA A4 area: 31.6 cm2 SI(MOD-sp4): 22.9 ml/m2 LA dimension(2D): 4.5 cm TAPSE: 2.0 cm RA A4 area: 16.8 cm2 Time Measurements MV dec time: 0.23 sec Doppler Measurements & Calculations MV E max samantha: 72.1 cm/sec MV V2 max: 75.0 cm/sec MV P1/2t max samantha: 76.0 cm/sec MV A max samantha: 44.9 cm/sec MV max P.2 mmHg MV P1/2t: 68.0 msec MV E/A: 1.6 MV V2 mean: 31.9 cm/sec MV mean P.52 mmHg MV dec slope: 327.6 cm/sec2 MV V2 VTI: 23.9 cm MVA(P1/2t): 3.2 cm2 MVA(VTI): 3.5 cm2 Ao V2 max: 229.9 cm/sec LV V1 max: 104.9 cm/sec SV(LVOT): 83.0 ml Ao max P.1 mmHg LV V1 max P.4 mmHg Ao V2 mean: 143.5 cm/sec LV V1 mean P.3 mmHg Ao mean P.7 mmHg LV V1 mean: 71.3 cm/sec Ao V2 VTI: 50.3 cm LV V1 VTI: 23.0 cm AV (velocity ratio): 0.46 JOSSE(I,D): 1.7 cm2 JOSSE(V,D): 1.6 cm2 PA V2 max: 95.3 cm/sec TR max samantha: 319.7 cm/sec TR max P.9 mmHg ECHO/Echo Complete W/ Contrast Interpretation Summary The left ventricular ejection fraction is 40 %. Normal LV size. Mild concentric left ventricular hypertrophy. There is mild to moderate global hypokinesis of the left ventricle. Bioprosthetic aortic valve. Mean aortic valve gradient 10 mmHg. Contrast injection was performed. Ordering Physician: Rey Dominguez Performed By: Kevin Palma RCS
[2024-04-24] MEDS: 0.9% Normal Saline (1000mL) 1,000 ML 100 ML IV (23:59)
[2024-04-25] VITALS (15 sets, daily range): BP systolic 119–161; BP diastolic 53–118; PULSE 50–113; RESP 14–24; TEMP 36.1–36.8; O2SAT 93–97
[2024-04-25 00:19] LABS: Bedside Glucose 144 mg/dL (74-106)
[2024-04-25] MEDS: LORazepam 2 MG/ML Syringe IV (02:22)
[2024-04-25] MEDS: 0.9% Saline Lock 10 ML Syringe IV (02:23)
[2024-04-25 06:02] LABS: Absolute Lymphocyte Count 0.85 X10^3/uL (0.83-4.51); Basophil# 0.02 X10^3/uL; Basophil% 0.2 % (0-1); Eosinophil# 0.16 X10^3/uL; Eosinophils% 1.3 % (0-5); Hematocrit 33.3 % (40-54); Hemoglobin 10.6 g/dL (13.0-16.5); Lymphocyte # 0.85 X10^3/ul (0.83-4.51); Lymphocyte % 7.1 % (19-41); Mean Corp Hgb Conc 31.8 g/dL (32-36); Mean Platelet Vol. 9.9 fl (6.2-12.0); Monocyte# 0.78 X10^3/uL; Monocyte% 6.6 % (0-10); NRBC Flagged by Analyzer 0.2 % (0-5); Neutrophil # 10.01 X10^3/uL (2.7-7.7); Neutrophil % 84.2 % (47-70); Platelet Count 223 K/mm3 (150-450); RBC Distribution Width CV 15.6 % (11.6-14.6); RBC Distribution Width SD 50.2 fl (35.1-43.9); Red Blood Count 3.66 M/mm3 (4.6-6.2); White Blood Count 11.9 K/mm3 (4.4-11.0)
[2024-04-25] MEDS: Amiodarone 360 MG in Dextrose 5% Viaflo Bag 192.8 ML 16.7 MG CONT INF (06:24)
[2024-04-25 06:31] LABS: Anion Gap 7 (5-15); BUN 29 mg/dL (7-18); BUN/Creat Ratio 16.5 RATIO (10-20); Calcium,Total 9.2 mg/dL (8.5-10.1); Chloride 109 mmol/L (98-107); Creatinine, Serum 1.76 mg/dL (0.70-1.30); EST Glomerular Filtration Rate 39 mL/min (>60); Est Glom Filt Rate - Afr Amer 48 mL/min (>60); Estimated Creatinine Clearance 41.45 ml/min; Glucose 170 mg/dL (74-106); Sodium Level 138 mmol/L (136-145)
[2024-04-25 06:47] LABS: Bedside Glucose 146 mg/dL (74-106)
--- NOTE | 2024-04-25 08:06 | EKG12_ITS ---
Test Reason : Blood Pressure : */* mmHG Vent. Rate : 58 BPM Atrial Rate : 58 BPM P-R Int : 180 ms QRS Dur : 126 ms QT Int : 452 ms P-R-T Axes : 11 -35 102 degrees QTcB Int : 443 ms Sinus bradycardia Left axis deviation Left ventricular hypertrophy with QRS widening and repolarization abnormality ( R in aVL , [place] pr oduct ) Abnormal ECG When compared with ECG of 24-Apr-2024 22:20, MANUAL COMPARISON REQUIRED DATA IS UNCONFIRMED Confirmed by MARCUS VILLANUEVA, WAN ([id number]), content editor SUMIT PACHECO ([id number]) on 04/27/2024 5:57:53 AM Referred By: RADHA Confirmed By: WAN VELAZQUEZ MD
[2024-04-25] MEDS: 0.9% Normal Saline (1000mL) 1,000 ML 100 ML IV (10:06)
--- NOTE | 2024-04-25 11:05 | PN.HOSP_ITS ---
Reason for Visit Reason for Visit: Diagnoses Hallucinations, unspecified (04/24/24) Subjective Subjective Saw patient at bedside this morning. Patient was laying back comfortably in bed. He was fatigued appearing. Patient knew his name and date of but thought he was at home and thought the year was 1983. He denied being in any acute pain or discomfort. Objective Data Objective Data Vital Signs: Vital Signs Temp Pulse Resp BP Pulse Ox O2 Del Method 97.0 F L 56 L 14 161/75 H 96 Room Air 04/25/24 08:00 04/25/24 08:00 04/25/24 08:00 04/25/24 08:00 04/25/24 08:00 04/25/24 08:10 Oxygen Delivery Method Room Air Weight: 114 kg Body Mass Index (BMI) 34.0 Intake & Output: Intake and Output for Last 24 Hours 04/23/24 04/24/24 04/25/24 23:59 23:59 23:59 Intake Total 1066.08 / 1082.73 1210.38 / 1210.38 Balance 1066.08 / 1082.73 1210.38 / 1210.38 Lab / Micro Data 04/25/24 05:23 04/25/24 05:23 Labs: Laboratory Results - last 24 hr 04/24/24 16:22: WBC 10.9, RBC 3.67 L, Hgb 10.6 L, Hct 33.4 L, MCV 91.0, MCH 28.9, MCHC 31.7 L, RDW Std Deviation 51.3 H, RDW Coeff of Wendy 15.7 H, Plt Count 233, MPV 9.9, Immature Gran % (Auto) 0.600, Neut % (Auto) 80.5 H, Lymph % (Auto) 9.3 L, Divide % (Auto) 7.2, Eos % (Auto) 2.1, Baso % (Auto) 0.3, Absolute Neuts (auto) 8.8 H, Absolute Lymphs (auto) 1.01, Nucleated RBC % 0, Sodium 137, P otassium 5.4 H, Chloride 108 H, Carbon Dioxide 25.0, Anion Gap 4 L, BUN 31 H, C reatinine 2.47 H, Estim Creat Clear Calc 31.04, Est GFR (MDRD) Af Amer 32 L, Est GFR (MDRD) Non-Af 27 L, BUN/Creatinine Ratio 12.6, Glucose 137 H, Calcium 9.4, Total Bilirubin 0.70, AST 9 L, ALT 12 L, Alkaline Phosphatase 76, Troponin I High Sens 26, Total Protein 7.1, Albumin 2.9 L, Globulin 4.2, Albumin/Globulin Ratio 0.7 L 04/24/24 18:40: Troponin I High Sens 24, TSH 3.140 04/24/24 18:48: Urine Color Yellow, Urine Clarity Clear, Urine pH 6.0, Ur Specific Bangs 1.010, Urine Protein 30 H, Urine Glucose (UA) Normal, Urine Ketones Negative, Urine Occult Blood Negative, Urine Nitrite Negative, Urine Bilirubin Negative, Urine Urobilinogen Normal, Ur Leukocyte Esterase Negative, Urine RBC 0-5 SEEN, Urine WBC 0-5 SEEN, Ur Squamous Epith Cells 0 SEEN, Urine Bacteria RARE, Urine Mucus 0 SEEN 04/24/24 23:57: POC Glucose 144 H 04/25/24 05:23: WBC 11.9 H, RBC 3.66 L, Hgb 10.6 L, Hct 33.3 L, MCV 91.0, MCH 29.0, MCHC 31.8 L, RDW Std Deviation 50.2 H, RDW Coeff of Wendy 15.6 H, Plt Count 223, MPV 9.9, Immature Gran % (Auto) 0.600, Neut % (Auto) 84.2 H, Lymph % (Auto) 7.1 L, Divide % (Auto) 6.6, Eos % (Auto) 1.3, Baso % (Auto) 0.2, Absolute Neuts (auto) 10.0 H, Absolute Lymphs (auto) 0.85, Nucleated RBC % 0.2, Sodium 138, Potassium 5.0, Chloride 109 H, Carbon Dioxide 23.0, Anion Gap 7, BUN 29 H, C reatinine 1.76 H, Estim Creat Clear Calc 41.45, Est GFR (MDRD) Af Amer 48 L, Est GFR (MDRD) Non-Af 39 L, BUN/Creatinine Ratio 16.5, Glucose 170 H, Calcium 9.2 04/25/24 06:23: POC Glucose 146 H Micro: Microbiology 04/24/24 16:35 Mucosa - Nose SARS-CoV-2, Influenza & RSV (PCR) - Final Radiography Diagnostic Testing: Radiology Impression Brain CT 04/24/24 16:30 IMPRESSION: 1. No acute intracranial abnormality. There has been no significant change from the reference examination. 2. Senescent change with small vessel ischemia. Electronically Signed: Zia Jackson MD at 17:17 EST , Chest X-Ray 04/24/24 16:43 IMPRESSION: No radiographic evidence of acute cardiopulmonary disease. Electronically Signed: Zia Jackson MD at 16:57 EST , Physical Exam Const alert and no apparent distress Constitutional Narrative: Elderly male, class I obesity, alert and oriented x 1 to person, pleasantly confused, laying back comfortably in bed, in no acute distress. General Appearance: cooperative HEENT normocephalic, head/scalp atraumatic, hearing grossly normal bilaterally and nasal mucous membranes and turbinates normal Eyes PERRL, EOMs intact bilaterally and conjunctivae normal Neck full ROM Chest inspection of chest normal Resp normal respiratory effort, normal air movement, no use of accessory muscles and clear to auscultation bilaterally Cardio regular rate, regular rhythm, no murmurs and peripheral pulses 2+ throughout GI normal to inspection, nondistended, normoactive bowel sounds, soft to palpation, non-tender and non-distended Back/Spine normal ROM Extremity normal to inspection and no pedal edema Skin no rashes or lesions noted Assessment & Plan Assessment/Plan (1) Altered mental status: (2) Hallucinations: (3) Paroxysmal atrial fibrillation with RVR: PLAN: Plan Patient is an 83-year-old male who presented to [facility] ED on 04/24/2024 with altered mentation and hallucinations. 1. Altered mentation with hallucinations in setting of Parkinson disease with dementia ? PT/OT/case management following. Speech therapy following. Seems most likely progression of patient's underlying Parkinson's disease with dementia. Noted to have mild creatinine elevation and was dry appearing on exam but no signs of infection. Patient pleasantly demented but alert and oriented x 1 to person only. Not safe for diet per speech therapy, will continue n.p.o. status. Will need to discuss with family on discharge plans tomorrow as patient has now converted out of A-fib and mild creatinine elevation has resolved. 2. A-fib with RVR ? Patient developed new onset A-fib with RVR on evening of admission. There was concern for possible wide-complex tachycardia with this so he was started on an amiodarone drip. Converted back to sinus rhythm by hospital day 2. Discontinued amiodarone drip and restarted home Lopressor 50 mg twice daily. Continue cardiac monitoring. Continue Eliquis 2.5 mg twice daily that was started on admission. 3. Mild creatinine elevation in setting of CKD stage IIIb, resolved ? Creatinine 2.47 on admit, baseline 1.7-1.9. Improved back to baseline by hospital day 2 after IV fluid resuscitation. Chronic medical conditions: ? Class I obesity: BMI 34 on admit. Complicates hospital course, care and prognosis. ? Chronic HFpEF, hypertension, hyperlipidemia: Stable. Continue home aspirin, statin and Lopressor. Will plan to restart home Lasix soon. ? Type 2 diabetes mellitus: Treating with sliding scale insulin while inpatient. Hold home sitagliptin, metformin and glimepiride. ? BPH with obstructive symptoms: Continue home Flomax. ? Depression: Continue home sertraline. ? History of aortic stenosis s/p TAVR DVT prophylaxis: Not indicated, on Eliquis CODE STATUS: DNR CCA, DNI Expected disposition: TBD Total clinical time spent by myself addressing the patient's medical issues, reviewing all the data, and collaborating with patient's care team: 35 minutes. Charges/Coding Visit Charges Inpatient E&M: 05249 Subs Hosp L2
[2024-04-25] MEDS: APIXABAN 2.5 MG TABLET (WCH) PO ×2 (11:21→22:41)
[2024-04-25] MEDS: Tamsulosin HCl 0.4 MG Capsule 0.8 MG PO (11:21)
[2024-04-25] MEDS: Ferrous Gluconate 324 MG Tablet 325 MG PO (11:21)
[2024-04-25] MEDS: Folic Acid 1 MG Tablet PO (11:21)
[2024-04-25] MEDS: Menthol/Lanolin/Calamine/Znox 113 GM Tube 1 APPLIC TOPICAL ×2 (11:22→20:47)
[2024-04-25] MEDS: Nystatin Powder 15gm Bottle 1 APPLIC TOPICAL ×2 (11:22→20:48)
[2024-04-25] MEDS: Sertraline 50 MG Tablet PO (11:22)
[2024-04-25] MEDS: Metoprolol Tartrate 50 MG Tablet PO (11:22)
[2024-04-25 11:42] LABS: Bedside Glucose 134 mg/dL (74-106)
--- NOTE | 2024-04-25 13:05 | CASEMGMT ---
FRANKY CM called for initial transition planning/care coordination assessment as patient is confused and hallucinating. RN CM introduced self and role at [facility]. willing to participate in assessment and is able to answer all questions appropriately. Care providers, pharmacy, and demographics verified. Strata: 3 PCP: Eri Specialists: Clarita, neurologist; Benoit, first aid attendant; [employer] middle school librarian; Katrina, racing secretary Preferred Pharmacy: [facility], [place] Insurance: [facility], MMO; states that after the first of the year they are changing to an advantage plan Prescription Benefit: yes Living Will/HPOA: yes, Suri Turner LNOK: Living Arrangements: Patient lives with in a 2 story home with bed and bath on first floor, 2 steps to enter the home. was assisting patient with ADLs but has been having some difficulty with assisting patient. Transportation: DME/HHC: Patient has raised toilet seat, cane, walker, and cpap at home. No previous HHC or SNF wishes for patient to discharge home. RN CM discussed concerns regarding patient safety with increased weakness and recent falls. Therapy evals pending at this time. RN CM discussed HHC vs SNF levels of care and coverage. states she would prefer patient to return home but is willing of patient to go to SNF if recommended but would like to wait and see how patient does with therapy. had no further questions or concerns. CM to follow for discharge planning needs that may arise. Disposition Plan: TBD, anticipate HHC vs SNF pending therapy evals. Malgorzata WALKER, RN, CM
--- NOTE | 2024-04-25 14:34 | NURSING ---
Gave report to Radha WILKINS
--- NOTE | 2024-04-25 15:30 | CASEMGMT ---
in patient's room asking for RN CM to speak with her. RN CM in to patient's room. , Suri, at bedside, patient sleeping. discussed concerns regarding weakness and increased confusion. RN CM updated that therapy eval is still pending and will no more about discharge disposition recommendations after. inquired about SNF level of care and coverage, RN CM provided information. voiced understanding and appreication. states she will continue to consider SNF vs HHC. had no further questions or concerns. CM will continue to follow this patient and plan for a safe discharge.
--- NOTE | 2024-04-25 16:18 | CHAPLAIN ---
Type of Pastoral Visit _x__ Initial Visit ___ Follow-up Visit ___ On-call Visit ___ General Patient Visit ___ Spiritual Assessment ___ Family Conference ___ Bereavement ___ Rapid Response ___ Code Blue ___ Other (describe below) Pastoral Care Referral From _x__ Patient ___ Family ___ Nurse ___ Physician ___ Escrow Representative ___ Forge Hand ___ Other (describe below) Sacrament/Intervention _x__ Active listening ___ Anointing ___ Mu-Ism ___ Bereavement ___ Communion ___ Dianna exploration ___ _x__ Life review _x__ Prayer ___ Reconciliation ___ Sacrament of Sick _x__ Supportive presence ___ Wedding ___ Other (describe below) Pastoral Comments patient appeared to be sleeping but was easily awakened to his name; pt could answer questions but also made comments that were about unrelated matters; pt appeared to be at rest but his words were negative in tone; pt did agree to a prayer; once prayer was completed the patient was sleeping
[2024-04-25 16:34] LABS: Bedside Glucose 138 mg/dL (74-106)
[2024-04-25] MEDS: Atorvastatin Calcium 40 MG Tablet PO (20:52)
[2024-04-25] MEDS: Aspirin E.C. 81 MG Tablet PO (20:52)
[2024-04-25 23:04] LABS: Bedside Glucose 107 mg/dL (74-106)
[2024-04-26] VITALS (8 sets, daily range): BP systolic 138–145; BP diastolic 64–80; PULSE 70–88; RESP 16–18; TEMP 36.1–36.8; O2SAT 94–97
[2024-04-26 06:50] LABS: Anion Gap 4 (5-15); BUN 27 mg/dL (7-18); BUN/Creat Ratio 16.1 RATIO (10-20); Calcium,Total 8.8 mg/dL (8.5-10.1); Chloride 111 mmol/L (98-107); Creatinine, Serum 1.68 mg/dL (0.70-1.30); EST Glomerular Filtration Rate 42 mL/min (>60); Est Glom Filt Rate - Afr Amer 50 mL/min (>60); Estimated Creatinine Clearance 43.43 ml/min; Glucose 123 mg/dL (74-106); Potassium 4.5 mmol/L (3.5-5.1); Sodium Level 139 mmol/L (136-145)
[2024-04-26] MEDS: APIXABAN 2.5 MG TABLET (WCH) PO ×2 (09:38→21:06)
[2024-04-26] MEDS: Sertraline 50 MG Tablet PO (09:38)
[2024-04-26] MEDS: Tamsulosin HCl 0.4 MG Capsule 0.8 MG PO (09:39)
[2024-04-26] MEDS: Menthol/Lanolin/Calamine/Znox 113 GM Tube 1 APPLIC TOPICAL ×2 (09:40→21:06)
[2024-04-26] MEDS: Folic Acid 1 MG Tablet PO (09:40)
[2024-04-26] MEDS: Metoprolol Tartrate 50 MG Tablet PO ×2 (09:40→21:06)
[2024-04-26] MEDS: Nystatin Powder 15gm Bottle 1 APPLIC TOPICAL ×2 (09:41→21:06)
[2024-04-26 11:29] LABS: Bedside Glucose 122 mg/dL (74-106)
[2024-04-26 11:43] LABS: Bedside Glucose 170 mg/dL (74-106)
--- NOTE | 2024-04-26 11:43 | PCM.PN.HOSP ---
Reason for Visit Reason for Visit: Diagnoses Paroxysmal atrial fibrillation (04/24/24) Altered mental status, unspecified (04/24/24) Hallucinations, unspecified (04/24/24) Subjective Subjective Saw patient at bedside this morning. Patient was much more alert and oriented this morning. He was able to tell me he was at [facility] and that it was April 2024. States he remembered feeling more confused yesterday but feels improved now. Denied any acute pain or discomfort. No other new concerns this morning. Objective Data Objective Data Vital Signs: Vital Signs Temp Pulse Resp BP Pulse Ox O2 Del Method 98.2 F 88 16 138/77 H 96 Room Air 04/26/24 09:00 04/26/24 10:00 04/26/24 09:00 04/26/24 09:40 04/26/24 10:00 04/26/24 10:00 Oxygen Delivery Method Room Air Weight: 114 kg Body Mass Index (BMI) 34.0 Intake & Output: Intake and Output for Last 24 Hours 04/24/24 04/25/24 04/26/24 23:59 23:59 23:59 Intake Total 1066.08 / 1082.73 2210.38 / 2210.38 Output Total 300 / 300 Balance 1066.08 / 1082.73 2210.38 / 2010.38 -300 / -300 Medical Nutrition Assessment Dietitian: Malnutrition Criteria Met Start: 04/25/24 15:51 Freq: Status: Active Protocol: Document 04/25/24 15:51 RMA (Rec: 04/25/24 15:52 RMA [id number]) Nutrition Malnutrition Evidence of Malnutrition Exists Yes Malnutrition (severe): Chronic Evidenced By Suboptimal Energy Intake ( Severe),Weight Loss (Severe) Intake Problem Inadequate Oral Intake Etiology related to difficulty swallowing Signs/Symptoms as evidenced by NPO Status Active Problem Clinical Problem Chronic Disease or Condition Related Malnutrition Etiology severe protein-calorie malnutrition in the context of chronic disease related to difficulty swallowing and inadequate oral intake Signs/Symptoms as evidenced by ~16% unintentional weight loss x 6 months, PO meeting less than 50% estimated nutrition needs x 6 months, currently NPO Status Active Problem Recommendation Dietitian Recommendations/Changes Recommend advance PO as tolerated to cardiac/ consistent carbohydrate diet with consistency/texture as per MUSEUM LIBRARIAN. Will d/c jenni ann w/ medpass; currently NPO. ONS as diet advanced from NPO; add ensure plus HP and William BID to support wound healing as needed. Consider TF support if unable to safely take PO diet. Lab / Micro Data 04/25/24 05:23 04/26/24 05:10 Labs: Laboratory Results - last 24 hr 04/25/24 16:16: POC Glucose 138 H 04/25/24 22:46: POC Glucose 107 H 04/26/24 05:10: Sodium 139, Potassium 4.5, Chloride 111 H, Carbon Dioxide 24.0, Anion Gap 4 L, BUN 27 H, Creatinine 1.68 H, Estim Creat Clear Calc 43.43, Est GFR (MDRD) Af Amer 50 L, Est GFR (MDRD) Non-Af 42 L, BUN/Creatinine Ratio 16.1, Glucose 123 H, Calcium 8.8 04/26/24 06:33: POC Glucose 122 H 04/26/24 11:25: POC Glucose 170 H Micro: Microbiology 04/24/24 16:35 Mucosa - Nose SARS-CoV-2, Influenza & RSV (PCR) - Final Radiography Diagnostic Testing: Radiology Impression Echocardiogram 04/24/24 23:26 Interpretation Summary The left ventricular ejection fraction is 40 %. Normal LV size. Mild concentric left ventricular hypertrophy. There is mild to moderate global hypokinesis of the left ventricle. Bioprosthetic aortic valve. Mean aortic valve gradient 10 mmHg. Contrast injection was performed. Ordering Physician: Rey Dominguez Performed By: Kevin Palma RCS Physical Exam Const alert and no apparent distress Constitutional Narrative: Elderly male, class I obesity, much improved from admission, mildly fatigued appearing but alert and oriented x 3, sitting up comfortably in bed, in no acute distress. General Appearance: cooperative HEENT normocephalic, head/scalp atraumatic, hearing grossly normal bilaterally and nasal mucous membranes and turbinates normal Eyes PERRL, EOMs intact bilaterally and conjunctivae normal Neck full ROM Chest inspection of chest normal Resp normal respiratory effort, normal air movement, no use of accessory muscles and clear to auscultation bilaterally Cardio regular rate, regular rhythm, no murmurs and peripheral pulses 2+ throughout GI normal to inspection, nondistended, normoactive bowel sounds, soft to palpation, non-tender and non-distended Back/Spine normal ROM Extremity normal to inspection and no pedal edema Skin no rashes or lesions noted Neuro moves all extremities Speech: speech normal Psych affect normal Assessment & Plan Assessment/Plan (1) Altered mental status: (2) Hallucinations: (3) Paroxysmal atrial fibrillation with RVR: PLAN: Plan Patient is an 83-year-old male who presented to [facility] ED on 04/24/2024 with altered mentation and hallucinations. 1. Altered mentation with hallucinations in setting of Parkinson disease with dementia, improving ? PT/OT/case management following. Speech therapy following. Initially had more concern for simple progression of patient's underlying Parkinson's disease with dementia. However he has had good improvement in mental status since admission and is now alert and oriented x 3. Still remains fatigued and per speech therapy will remain n.p.o. status with plan for bedside swallow study tomorrow. Therapy scores are borderline and discussions with patient and are ongoing regarding plan for either SNF versus home with home health care on discharge. 2. A-fib with RVR ? Patient developed new onset A-fib with RVR on evening of admission. There was concern for possible wide-complex tachycardia with this so he was started on an amiodarone drip. Converted back to sinus rhythm by hospital day 2. Discontinued amiodarone drip and restarted home Lopressor 50 mg twice daily. Has remained in sinus rhythm since conversion. Continue cardiac monitoring. Continue Eliquis 2.5 mg twice daily that was started on admission. 3. Mild creatinine elevation in setting of CKD stage IIIb, resolved ? Creatinine 2.47 on admit, baseline 1.7-1.9. Improved back to baseline by hospital day 2 after IV fluid resuscitation. Chronic medical conditions: ? Class I obesity: BMI 34 on admit. Complicates hospital course, care and prognosis. ? Chronic HFpEF, hypertension, hyperlipidemia: Stable. Continue home aspirin, statin and Lopressor. Will plan to restart home Lasix soon. ? Type 2 diabetes mellitus: Treating with sliding scale insulin while inpatient. Hold home sitagliptin, metformin and glimepiride. ? BPH with obstructive symptoms: Continue home Flomax. ? Depression: Continue home sertraline. ? History of aortic stenosis s/p TAVR DVT prophylaxis: Not indicated, on Eliquis CODE STATUS: DNR CCA, DNI Expected disposition: Home with home health care versus SNF, 1 to 2 days Total clinical time spent by myself addressing the patient's medical issues, reviewing all the data, and collaborating with patient's care team: 35 minutes. Charges/Coding Visit Charges Inpatient E&M: 68777 Subs Hosp L2
--- NOTE | 2024-04-26 14:35 | SP.MBSS_ITS ---
Modified Barium Swallow Patient Information Study Date: 04/26/24 Study Time: 13:00 Direct Billable Minutes: 120 Total Minutes procedure & reportin Diagnosis: Parkinson's disease G20.A1, AMS R41.82 Referring Physician: Owen Chakraborty Reason for Referral: Objectively assess swallow function, assess risk for aspiration, and determine recommendations for least restrictive diet textures and compensatory strategies to improve safety of swallow. Medical History: The patient presented to [facility] w/ 2 weeks of altered mental status and hallucinations. Family thought that it might have been due to the new Sinemet prescription for his Parkinson's initially when they stopped it about a week ago they thought that he had improved slightly however he continued to have the symptoms for the last week that are waxing and waning. Pt is having hallucinations. Workup in the ER was unremarkable. He was admitted for manage ment of AMS. Brain CT 04/24/24 No acute intracranial abnormality. There has been no significant change from the reference examination. Senescent change with small vessel ischemia.; Chest X-Ray 04/24/24 No radiographic evidence of acute cardiopulmonary disease. Pt was referred for ST consult to assess swallow function. 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), CKD, Non- ischemic cardiomyopathy, History of NSTEMI (01/22/20), CHF - NYHA class III, Atherosclerotic heart disease of [place] coronary artery without angina pectoris, Diffuse large B cell lymphoma, Mild chronic anemia, Nonrheumatic aortic (valve) stenosis, Non-Hodgkin lymphoma, Obesity, Splenic artery aneurysm, Type 2 DM Kidney stones, HLD Current Diet Ordered: NPO Dentition: Upper Dentures and Lower Dentures Mental Status: Impaired (AMS, but able to follow commands for the evaluation) Respiratory Status: Oxygenating on Room Air Penetration-Aspiration Scale Penetration-Aspiration Scale: OBJECTIVE ASSESSMENT OF SWALLOW FUNCTION (QUANTITATIVE ? PER TRIAL): PENETRATION / ASPIRATION SCALE (VALD[place]AMA): 1 = does not enter airway 2 = enters airway/above vocal folds/ejected 3 = enters airway/above vocal folds/not ejected 4 = enters airway/contacts vocal folds/ejected 5 = enters airway/contacts vocal folds/not ejected 6 = enters airway/below vocal folds/ejected 7 = enters airway/below vocal folds/not ejected despite effort 8 = enters airway/below vocal folds/no effort VIDEOFLOROSCOPIC SCALE SCORE (VALDERRAMA): Grade I = aspiration of material that has penetrated into the laryngeal vestibule, intact cough reflex Grade II = aspiration < 10 % of the bolus, intact cough reflex Grade III = aspiration of < 10 % of the bolus, reduced cough reflex or aspiration of > 10 % of the bolus, intact cough reflex Grade IV = aspiration of > 10 % of the bolus, reduced cough reflex Penetration-Aspiration Scale Score Thin Liquid via teaspoon: Result: 8= enters airway/below vocal folds/no effort Thin Liquid via teaspoon Trial 2: Result: 1= does not enter airway Comment: Cued cough and re-swallow = somewhat effective. Thin Liquid via small single sip: cup: Result: 3= enters airways/above vocal folds/not ejected Thin Liquid via small single sip: cup Trial 2: Result: 5= enters airways/contacts vocal folds/not ejected Comment: Cued cough and re-swallow = somewhat effective. [place] Thick Liquid via small single sip: cup: Result: 3= enters airways/above vocal folds/not ejected Pudding via teaspoon: Result: 1= does not enter airway 1/2 Cookie: Result: 1= does not enter airway Thin Liquid via single sip: straw Effortful swallow: Result: 3= enters airways/above vocal folds/not ejected Comment: Cued cough and re-swallow = somewhat effective. Thin Liquid via single sip: straw Effortful swallow Trial 2: Result: 3= enters airways/above vocal folds/not ejected Thin Liquid via small single sip: cup Chin tuck: Result: 8= enters airway/below vocal folds/no effort Honey Thick Liquid via small single sip: cup: Result: 1= does not enter airway Oral Phase Labial Seal: Escape beyond mid-chin Tongue Control During Bolus Hold: Posterior escape of greater than half of bolus Bolus Preparation/Mastication: Slow prolonged chewing/mashing with complete recollection Bolus Transport/Lingual Motion: Slowed tongue motion Oral Residue: Residue collection on oral structures Pharyngeal Phase Initiation of Pharyngeal Swallow: Bolus head in pyriforms Soft Palate Elevation: Trace column of contrast/air between soft palate and pharyngeal wall Laryngeal Elevation: Partial superior movement thyroid cart/partial apprx aryt- epig petiole Anterior Hyoid Excursion: Partial anterior movement Epiglottic Movement: Partial inversion Laryngeal Vestibule Closure at Height of Swallow: Incomplete; narrow column of air/contrast in laryngeal vestibule Pharyngeal Stripping Wave: Present - diminished Pharyngoesophageal Segment Opening: Parital distension and partial duration; parital obstruction of flow Tongue Base Retraction: Wide column of contrast between tongue base & post. pharyngeal wall Pharyngeal Residue: Collection of residue within or on pharyngeal structures Esophageal Phase Esophageal Clearance: Complete clearance Diagnosis/Impression Diagnosis: Moderate oropharyngeal dysphagia R13.12 Impression: The oral phase is marked by... -Decreased labial seal on 1st trial w/ anterior loss past chin. -Decreased bolus control w/ premature posterior loss of thin liquids to the pyriforms prior to swallow onset. -Slowed tongue motion for A-P transport. -Slowed, but complete mastication. The pharyngeal phase is primarily marked by... -Delayed swallow onset. -Moderate pharyngeal residues most notable w/ cookie due to decreased TB retraction, pharyngeal stripping wave, and UES opening/duration. Liquid wash was effective in clearing majority of residues. -Decreased airway closure during the swallow due to decreased anterior hyoid excursion, laryngeal elevation, and partial epiglottic inversion. -SILENT aspiration of thin liquids by tsp, thin liquids by cup w/ chin tuck. SILENT post prandial aspiration of thin liquids via single cup sip. Effortful swallows did not eliminate aspiration, but thse strategies decreased amount of laryngeal penetration and decreased aspiration risk. Cough and re-swallow was somewhat effective in decreasing aspiration risk. [employer] reviewed images w/ Dr. Shen. Pt presents w/ large anterior cervical osteophytes from C2-C4, which did appear to impact bolus clearance, especially w/ cookie. Recommendations Diet: Mechanical Soft Textures (Soft and Bite Size Textures - IDDSI Level 6) and Thin Liquids Compensatory Strategies: Small Bites, Small Sips (HARD/EFFORTFUL SWALLOWS EACH SIP, Cue intermittent cough and re-swallow every 4-5 sips), Slow Rate, Alternate bites/solids and sips/liquids (1:1 ratio) and Sitting upright Supervision: 1:1 Close Supervision (ALL FOOD/DRINK) Recommend Repeat Modified Barium Swallow: Yes (3-5 weeks after implementation of oropharyngeal exercise program) Need for Skilled Speech Therapy Services: Yes Comment: Dysphagia therapy 5-7X/week during acute stay. ST recommended at next level of care. Acute dysphagia therapy POC to include... -Train the patient in use of strategies to decrease risk for aspiration. -Ongoing assessment of diet tolerance of recommended textures. Monitor respiratory status closely. If worsening respiratory status, will consider downgrade to honey/moderately thick liquids. -Train the patient in oropharyngeal exercise program to improve bolus control, airway closure, TB retraction, and pharyngeal stripping wave (lingual resistance, CTAR, Prerna, Effortful swallow). Education Completed: 1. Described result of evaluation., 4. Family/caregivers understand evaluation & agree w/ goals & tx plan. and 7. Pt requires further education on strategies & risks. Comment: [employer] educated pt, RN, and in results and recommendations of MBSS. Education well received, but pt requires direct supervision to ensure use of strategies to decrease risk for aspiration. Status Active ST Patient: Active Contact Information [facility] Speech Therapy:: Yun Sutton M.A. [facility]-[employer]? Speech-Language Pathologist?? [facility] [address] [place] [address]? [email or web address]?? [phone]
--- NOTE | 2024-04-26 15:31 | CASEMGMT ---
SW met with patient's . Introduced self and role at [facility]. SW told patient's that TCU might be able to take patient. However, they would like to see how he does overnight. RUBIN told her that she might want to review the list of facilities in the event TCU cannot take him. Elvira Kelly MSW [facility]
[2024-04-26 16:54] LABS: Bedside Glucose 163 mg/dL (74-106)
[2024-04-26] MEDS: Insulin Lispro 100 UNIT/ML INSULN.PEN SC ×2 (18:38→21:09)
[2024-04-26] MEDS: Aspirin E.C. 81 MG Tablet PO (21:05)
[2024-04-26] MEDS: Atorvastatin Calcium 40 MG Tablet PO (21:05)
[2024-04-26 21:37] LABS: Bedside Glucose 156 mg/dL (74-106)
[2024-04-27 03:37] VITALS: BP 167/71; PULSE 75; RESP 18; TEMP 35.8; O2SAT 97
[2024-04-27 06:03] LABS: Hematocrit 31.1 % (40-54); Hemoglobin 9.7 g/dL (13.0-16.5); Mean Corp Hgb Conc 31.2 g/dL (32-36); Mean Corpuscular Hgb 28.2 pg (27.0-32.0); Mean Corpuscular Volume 90.4 fL (80-94); Mean Platelet Vol. 9.8 fl (6.2-12.0); Platelet Count 209 K/mm3 (150-450); RBC Distribution Width CV 15.6 % (11.6-14.6); Red Blood Count 3.44 M/mm3 (4.6-6.2); White Blood Count 9.6 K/mm3 (4.4-11.0)
[2024-04-27] MEDS: Insulin Lispro 100 UNIT/ML INSULN.PEN SC ×2 (06:07→13:20)
[2024-04-27 06:43] LABS: Anion Gap 5 (5-15); BUN 26 mg/dL (7-18); BUN/Creat Ratio 13.9 RATIO (10-20); Calcium,Total 8.9 mg/dL (8.5-10.1); Chloride 111 mmol/L (98-107); Creatinine, Serum 1.87 mg/dL (0.70-1.30); EST Glomerular Filtration Rate 37 mL/min (>60); Est Glom Filt Rate - Afr Amer 45 mL/min (>60); Estimated Creatinine Clearance 39.02 ml/min; Glucose 152 mg/dL (74-106); Potassium 4.3 mmol/L (3.5-5.1); Sodium Level 138 mmol/L (136-145)
[2024-04-27 06:56] LABS: Bedside Glucose 150 mg/dL (74-106)
[2024-04-27 08:15] VITALS: BP 175/83; PULSE 77; RESP 18; TEMP 36.6; O2SAT 97
[2024-04-27] MEDS: Sertraline 50 MG Tablet PO (08:20)
[2024-04-27] MEDS: Tamsulosin HCl 0.4 MG Capsule 0.8 MG PO (08:20)
[2024-04-27] MEDS: Folic Acid 1 MG Tablet PO (08:20)
[2024-04-27 08:21] VITALS: BP 175/83; PULSE 77
[2024-04-27] MEDS: Metoprolol Tartrate 50 MG Tablet PO (08:21)
[2024-04-27] MEDS: APIXABAN 2.5 MG TABLET (WCH) PO (08:21)
[2024-04-27] MEDS: Ferrous Gluconate 324 MG Tablet 325 MG PO (08:22)
[2024-04-27] MEDS: Nystatin Powder 15gm Bottle 1 APPLIC TOPICAL (08:30)
[2024-04-27] MEDS: Menthol/Lanolin/Calamine/Znox 113 GM Tube 1 APPLIC TOPICAL (08:30)
--- NOTE | 2024-04-27 11:15 | TREXTCAR_ITS ---
Diet Diet Order/Speech Therapy: 04/26/24 15:13 Diet: Carbohydrate Controlled Food consistency:: Soft & Bite Sized Liquid Consistency:: Regular/Thin Dietary Modifications:: Cardiac / Heart Healthy Diet Comments: Direct sup ALL food/drink; meds w/ purees (small/whole, large/crushed) Routine Orders/Code Status Code Status: DNRCC-A (DO NOT INTUBATE) DC O2, CPAP, BIPAP needs Home O2 Discharge instructions: No Wound(s) R Buttock: Wound Type: Pressure Injury B/L Shins: Wound Type: Abrasion L Elbow: Wound Type: Abrasion left buttock: Wound Type: Pressure Injury left arredondo: Wound Type: cluster of abrasions Dressing Change: Adaptic Therapies Weight Bearing: Full weight bearing Physical Therapy: Eval and Treat Occupational Therapy: Eval and Treat Speech Therapy: Eval and Treat Problem/Diagnosis (1) Altered mental status: Status: Acute Code(s): R41.82 - Altered mental status, unspecified (2) Hallucinations: Status: Acute Code(s): R44.3 - Hallucinations, unspecified (3) Paroxysmal atrial fibrillation with RVR: Status: Acute Code(s): I48.0 - Paroxysmal atrial fibrillation Plan Patient is an 83-year-old male who presented to [facility] ED on 04/24/2024 with altered mentation and hallucinations. Hospital course as noted below. Patient discharged to TCU in stable condition on 04/27. 1. Altered mentation with hallucinations in setting of Parkinson disease with dementia, improved; moderate oropharyngeal dysphagia; acute on chronic debility ? PT/OT/case management followed. Speech therapy followed. Initially had more concern for simple progression of patient's underlying Parkinson's disease with dementia. However he had great improvement in mental status by morning of 04/26 and has been alert and oriented x 3 since then. Suspect the altered mentation may have been related to medications that were being taken prior to admission. Will avoid sedating medications moving forward as able. Completed modified barium swallow study on 04/26 and diagnosed with moderate oropharyngeal dysphagia, with recommendation for mechanical soft textures and thin liquids with small bites and small sips going forward. Additional speech therapy is recommended. Patient stable for discharge to TCU on 04/27. Still remains fatigued and per speech therapy will remain n.p.o. status with plan for bedside swallow study tomorrow. Therapy scores are borderline and discussions with patient and are ongoing regarding plan for either SNF versus home with home health care on discharge. 2. A-fib with RVR, improved ? Patient developed new onset A-fib with RVR on evening of admission. There was concern for possible wide-complex tachycardia with this so he was started on an amiodarone drip. Converted back to sinus rhythm by hospital day 2. Discontinued amiodarone drip and restarted home Lopressor 50 mg twice daily. Has remained in sinus rhythm since conversion. Will continue Lopressor and Eliquis 2.5 mg twice daily on discharge. 3. Mild creatinine elevation in setting of CKD stage IIIb, resolved ? Creatinine 2.47 on admit, baseline 1.7-1.9. Improved back to baseline by hospital day 2 after IV fluid resuscitation. Chronic medical conditions: ? Class I obesity: BMI 34 on admit. Complicates hospital course, care and prognosis. ? Chronic HFpEF, hypertension, hyperlipidemia: Stable. Continue home aspirin, statin and Lopressor. Okay to resume home Lasix on discharge. ? Type 2 diabetes mellitus: Treated with sliding scale insulin while inpatient. Okay to resume home metformin and sitagliptin on discharge. Discontinued home glimepiride. ? BPH with obstructive symptoms: Continue home Flomax. ? Depression: Continue home sertraline. ? History of aortic stenosis s/p TAVR Total clinical time spent by myself addressing the patient's medical issues, reviewing all the data, and collaborating with patient's care team: 35 minutes. Allergies/Procedures Done in Hospital Allergies No Known Allergies Allergy (Verified 04/24/24 16:19) Type of Care/Length of Stay Estimated LOS: Convalescent Care Less Than 30 days Type of Care Needed: Skilled Rehab Potential: Fair Prognosis: Fair Additional Orders/Day of Discharge H&P will serve as current which was dated: 04/24/24 Day of Discharge: 04/27/24 Dietary and Speech Recommendations Dietitian Recommendations/Changes: Diet: Mechanical Soft Textures (Soft and Bite Size Textures - IDDSI Level 6) and Thin Liquids Compensatory Strategies: Small Bites, Small Sips (HARD/EFFORTFUL SWALLOWS EACH SIP, Cue intermittent cough and re-swallow every 4-5 sips), Slow Rate, Alternate bites/solids and sips/liquids (1:1 ratio) and Sitting upright Supervision: 1:1 Close Supervision (ALL FOOD/DRINK) Recommend Repeat Modified Barium Swallow: Yes (3-5 weeks after implementation of oropharyngeal exercise program) Need for Skilled Speech Therapy Services: Yes Comment: Dysphagia therapy 5-7X/week during acute stay. ST recommended at next level of care. Acute dysphagia therapy POC to include... -Train the patient in use of strategies to decrease risk for aspiration. -Ongoing assessment of diet tolerance of recommended textures. Monitor respiratory status closely. If worsening respiratory status, will consider downgrade to honey/moderately thick liquids. -Train the patient in oropharyngeal exercise program to improve bolus control, airway closure, TB retraction, and pharyngeal stripping wave (lingual resistance, CTAR, Prerna, Effortful swallow). Discharge Plan Admission Admit Date/Time: 04/24/24 23:03 Primary Reason for Your Visit: confusion Attending Provider: Owen Chakraborty Primary Care Provider: Lalo Hwang Consulting Providers: Rey Dominguez Discharge Orders/Prescriptions Prescriptions: New ferrous gluconate 324 mg (37.5 mg iron) Tablet 325 mg PO QODAY 30 Days Qty: 15 0RF Eliquis 5 mg Tablet 2.5 mg PO BID 30 Days Qty: 30 0RF Continued atorvastatin 40 mg tablet 40 mg PO DAILY cholecalciferol (vitamin D3) 1,250 mcg (50,000 unit) capsule 50,000 unit PO QWEEK Patient Comments: TAKE ONE CAPSULE BY MOUTH ONCE EVERY WEEK sertraline 50 mg tablet 50 mg PO DAILY saw palmetto 1 cap PO DAILY Januvia 50 mg tablet 50 mg PO QDAY metformin 500 mg tablet extended release 24 hr 500 mg PO BID Rx Instructions: resume 01/27/2020 mecobalamin (vitamin B12) 1,000 mcg tablet,chewable 1,000 mcg PO DAILY aspirin 81 MG tablet 81 mg PO DAILY@1999 metoprolol tartrate 50 MG tablet 50 mg PO BID Qty: 60 0RF folic acid 1 mg Tablet 1 mg PO DAILY tamsulosin [Flomax] 0.4 mg capsule 0.8 mg PO DAILY furosemide 40 mg tablet See Rx Instructions .ROUTE .COMPLEX Qty: 90 3RF Dose Instruction: TAKE ONE TABLET BY MOUTH DAILY Rx Instructions: TAKE ONE TABLET BY MOUTH DAILY Discontinued glimepiride 4 mg tablet 4 mg PO BID ferrous gluconate 240 mg (27 mg iron) tablet 240 mg PO BID Patient Comments: TAKE ONE TABLET BY MOUTH ONCE DAILY Referrals / Follow Up: Lalo Hwang MD [Primary Care Provider] - Disposition Disposition (needs filled in before D/C Order can be placed): Long-Term Facility
--- NOTE | 2024-04-27 11:15 | PCM.DC.SUM ---
Providers Date of Admission: 04/24/24 Date of Discharge: 04/27/24 Primary Care Physician: Dr. Lalo Hwang MD Consultations 04/26/24 14:52 Consult: Onc/Wound/assistant coach Routine Comment: Reason for Consult:: stasis ulcer left arredondo Reason For Visit: DELIRIUM AFIB RVR Diagnosis Discharge Diagnosis (1) Altered mental status: Status: Acute Code(s): R41.82 - Altered mental status, unspecified (2) Hallucinations: Status: Acute Code(s): R44.3 - Hallucinations, unspecified (3) Paroxysmal atrial fibrillation with RVR: Status: Acute Code(s): I48.0 - Paroxysmal atrial fibrillation Medications at Discharge Home Medications aspirin 81 mg tablet,delayed release 81 mg PO DAILY@1999 [facility] 01/22/20 metoprolol tartrate 50 mg tablet 50 mg PO BID #60 tabs 01/24/20 folic acid 1 mg tablet 1 mg PO DAILY 11/11/21 atorvastatin 40 mg tablet 40 mg PO DAILY 02/20/22 cholecalciferol (vitamin D3) 1,250 mcg (50,000 unit) capsule 50,000 unit PO QWEEK 02/20/22 sertraline 50 mg tablet 50 mg PO DAILY 02/20/22 mecobalamin (vitamin B12) 1,000 mcg chewable tablet 1,000 mcg PO DAILY 11/16/23 metformin 500 mg tablet,extended release 24 hr 500 mg PO BID DM 11/16/23 saw palmetto 1 cap PO DAILY 11/16/23 sitagliptin phosphate 50 mg tablet (Januvia) 50 mg PO QDAY 11/16/23 furosemide 40 mg tablet See Rx Instructions .Route .COMPLEX #90 tabs 04/19/24 tamsulosin 0.4 mg capsule (Flomax) 0.8 mg PO DAILY 04/24/24 apixaban 5 mg tablet (Eliquis) 2.5 mg (1/2 x 5 mg) PO BID 30 days #30 tabs 04/27/24 ferrous gluconate 324 mg (37.5 mg iron) tablet 325 mg (1.0031 x 324 mg (37.5 mg iron)) PO QODAY 30 days #15 tabs 04/27/24 Hospital Course Operations None Procedures EKG, Modified Barium Swallow, Transthoracic echo and - (Chest x-ray, CT brain) Summary of Care Provided Minutes Spent on Discharge: 35 Hospital Course: Patient is an 83-year-old male who presented to [facility] ED on 04/24/2024 with altered mentation and hallucinations. Hospital course as noted below. Patient discharged to TCU in stable condition on 04/27. 1. Altered mentation with hallucinations in setting of Parkinson disease with dementia, improved; moderate oropharyngeal dysphagia; acute on chronic debility ? PT/OT/case management followed. Speech therapy followed. Initially had more concern for simple progression of patient's underlying Parkinson's disease with dementia. However he had great improvement in mental status by morning of 04/26 and has been alert and oriented x 3 since then. Suspect the altered mentation may have been related to medications that were being taken prior to admission. Will avoid sedating medications moving forward as able. Completed modified barium swallow study on 04/26 and diagnosed with moderate oropharyngeal dysphagia, with recommendation for mechanical soft textures and thin liquids with small bites and small sips going forward. Additional speech therapy is recommended. Patient stable for discharge to TCU on 04/27. 2. A-fib with RVR, improved; chronic HFrEF; hypertension; hyperlipidemia ? Patient developed new onset A-fib with RVR on evening of admission. There was concern for possible wide-complex tachycardia with this so he was started on an amiodarone drip. Converted back to sinus rhythm by hospital day 2. Discontinued amiodarone drip and restarted home Lopressor 50 mg twice daily. Has remained in sinus rhythm since conversion. Echo on 04/25 showed EF 40%, mild concentric LV hypertrophy, mild to moderate global hypokinesis of the LV. EF is slightly reduced from prior echo on 12/09/2023 that showed EF 45%. Will continue Lopressor and Eliquis 2.5 mg twice daily on discharge. Continue home aspirin and statin. Held Lasix during hospitalization, okay to resume on discharge. 3. Mild creatinine elevation in setting of CKD stage IIIb, resolved ? Creatinine 2.47 on admit, baseline 1.7-1.9. Improved back to baseline by hospital day 2 after IV fluid resuscitation. Chronic medical conditions: ? Class I obesity: BMI 34 on admit. Complicates hospital course, care and prognosis. ? Type 2 diabetes mellitus: Treated with sliding scale insulin while inpatient. Okay to resume home metformin and sitagliptin on discharge. Discontinued home glimepiride. ? BPH with obstructive symptoms: Continue home Flomax. ? Depression: Continue home sertraline. ? History of aortic stenosis s/p TAVR Total clinical time spent by myself addressing the patient's medical issues, reviewing all the data, and collaborating with patient's care team: 35 minutes. Physical Exam Const alert and no apparent distress Constitutional Narrative: Elderly male, class I obesity, much improved from admission, mildly fatigued appearing but alert and oriented x 3, sitting up comfortably in bed, in no acute distress. Stable. General Appearance: cooperative HEENT normocephalic, head/scalp atraumatic, hearing grossly normal bilaterally and nasal mucous membranes and turbinates normal Eyes PERRL, EOMs intact bilaterally and conjunctivae normal Neck full ROM Chest inspection of chest normal Resp normal respiratory effort, normal air movement, no use of accessory muscles and clear to auscultation bilaterally Cardio regular rate, regular rhythm, no murmurs and peripheral pulses 2+ throughout GI normal to inspection, nondistended, normoactive bowel sounds, soft to palpation, non-tender and non-distended Back/Spine normal ROM Extremity normal to inspection and no pedal edema Skin no rashes or lesions noted Neuro moves all extremities Speech: speech normal Psych affect normal Medical Records Data Medical Nutrition Assessment Dietitian: Malnutrition Criteria Met Start: 04/25/24 15:51 Freq: Status: Active Protocol: Document 04/25/24 15:51 RMA (Rec: 04/25/24 15:52 RMA [id number]) Nutrition Malnutrition Evidence of Malnutrition Exists Yes Malnutrition (severe): Chronic Evidenced By Suboptimal Energy Intake ( Severe),Weight Loss (Severe) Intake Problem Inadequate Oral Intake Etiology related to difficulty swallowing Signs/Symptoms as evidenced by NPO Status Active Problem Clinical Problem Chronic Disease or Condition Related Malnutrition Etiology severe protein-calorie malnutrition in the context of chronic disease related to difficulty swallowing and inadequate oral intake Signs/Symptoms as evidenced by ~16% unintentional weight loss x 6 months, PO meeting less than 50% estimated nutrition needs x 6 months, currently NPO Status Active Problem Recommendation Dietitian Recommendations/Changes Recommend advance PO as tolerated to cardiac/ consistent carbohydrate diet with consistency/texture as per [employer]. Will d/c glucerna shake w/ medpass; currently NPO. ONS as diet advanced from NPO; add ensure plus HP and William BID to support wound healing as needed. Consider TF support if unable to safely take PO diet. Weight / BMI Weight Weight: 114 kg Body Mass Index (BMI) 34.0 ABG / Lab / Microbiology Data 04/27/24 05:42 04/27/24 05:42 Laboratory: Laboratory Results - last 24 hr 04/26/24 16:29: POC Glucose 163 H 04/26/24 21:09: POC Glucose 156 H 04/27/24 05:42: WBC 9.6, RBC 3.44 L, Hgb 9.7 L, Hct 31.1 L, MCV 90.4, MCH 28.2, MCHC 31.2 L, RDW Std Deviation 50.0 H, RDW Coeff of Wendy 15.6 H, Plt Count 209, MPV 9.8, Sodium 138, Potassium 4.3, Chloride 111 H, Carbon Dioxide 23.0, Anion Gap 5, BUN 26 H, Creatinine 1.87 H, Estim Creat Clear Calc 39.02, Est GFR (MDRD) Af Amer 45 L, Est GFR (MDRD) Non-Af 37 L, BUN/Creatinine Ratio 13.9, Glucose 152 H, Calcium 8.9 04/27/24 06:06: POC Glucose 150 H 04/27/24 10:57: POC Glucose 198 H Microbiology: Microbiology 04/24/24 16:35 Mucosa - Nose SARS-CoV-2, Influenza & RSV (PCR) - Final D/C Instructions DC O2, CPAP, BIPAP Needs Home O2 Discharge instructions: No Meaningful Use Info Meaningful Use Meaningful Use Diagnoses (Choose all that apply): None applicable Ischemic Stroke Statin Dosing Therapy Reference: STATIN DOSE THERAPY REFERENCE: * Patients > 75 years receive moderate or high dose statin therapy. * Patients 75 years or YOUNGER should receive HIGH intensity statin dose unless contraindicated. You will be required to document reason for non-treatment if statin daily dose does not meet guidelines. HIGH DOSE STATIN THERAPY DAILY Atorvastatin > than or = to 40 mg Rosuvastatin > than or = to 20 mg Amlodipine + Atorvastatin > than or = to 2.5/40 mg Ezetimibe + Simvastatin 10/80 mg Simvastatin 80mg Discharge Plan Admission Admit Date/Time: 04/24/24 23:03 Primary Reason for Your Visit: confusion Attending Provider: Owen Chakraborty Primary Care Provider: Lalo Hwang Consulting Providers: Kotsonis,Rey F Discharge Orders/Prescriptions Prescriptions: New ferrous gluconate 324 mg (37.5 mg iron) Tablet 325 mg PO QODAY 30 Days Qty: 15 0RF Eliquis 5 mg Tablet 2.5 mg PO BID 30 Days Qty: 30 0RF Continued atorvastatin 40 mg tablet 40 mg PO DAILY cholecalciferol (vitamin D3) 1,250 mcg (50,000 unit) capsule 50,000 unit PO QWEEK Patient Comments: TAKE ONE CAPSULE BY MOUTH ONCE EVERY WEEK sertraline 50 mg tablet 50 mg PO DAILY saw palmetto 1 cap PO DAILY Januvia 50 mg tablet 50 mg PO QDAY metformin 500 mg tablet extended release 24 hr 500 mg PO BID Rx Instructions: resume 01/27/2020 mecobalamin (vitamin B12) 1,000 mcg tablet,chewable 1,000 mcg PO DAILY aspirin 81 MG tablet 81 mg PO DAILY@2000 metoprolol tartrate 50 MG tablet 50 mg PO BID Qty: 60 0RF folic acid 1 mg Tablet 1 mg PO DAILY tamsulosin [Flomax] 0.4 mg capsule 0.8 mg PO DAILY furosemide 40 mg tablet See Rx Instructions .ROUTE .COMPLEX Qty: 90 3RF Dose Instruction: TAKE ONE TABLET BY MOUTH DAILY Rx Instructions: TAKE ONE TABLET BY MOUTH DAILY Discontinued glimepiride 4 mg tablet 4 mg PO BID ferrous gluconate 240 mg (27 mg iron) tablet 240 mg PO BID Patient Comments: TAKE ONE TABLET BY MOUTH ONCE DAILY Referrals / Follow Up: Lalo Hwang MD [Primary Care Provider] - Disposition Disposition (needs filled in before D/C Order can be placed): Jail Facility Charges/Coding Visit Charges Inpatient E&M: 29012 Disch Hosp >30min
[2024-04-27 11:17] LABS: Bedside Glucose 198 mg/dL (74-106)
--- NOTE | 2024-04-27 12:00 | NURSING ---
THIS NURSE CALLED REPORT TO TCU. TCU STATED WAITING ON BED TO BE CLEANED, AND PT WILL MOST LIKELY GO TO BED1 ON TCU.
--- NOTE | 2024-04-27 12:08 | CASEMGMT ---
Social Work TCU is able to accept pt. Physician notified and pt is ready for dc today. SW met with pt and and informed of acceptance to TCU. Pt and agreeable. DC orders faxed to TCU. RN and TCU notified of dc today. Disposition: TCU, skilled level of care KIM Falk
--- NOTE | 2024-04-27 12:55 | WOUNDNOTE ---
wound photo: left arredondo
--- NOTE | 2024-04-27 12:56 | NUR.TO.PHY ---
wound photo: right arredondo
--- NOTE | 2024-04-27 12:56 | WOUNDNOTE ---
wound photo: right arredondo
[2024-04-27 16:00] VITALS: BP 140/81; PULSE 64; RESP 17; TEMP 36.6; TEMP 36.8; O2SAT 99
== END 2024-04-27 17:24 | DRG 947 ==
LOC: ED 19:54 → PCU 23:36
PROVIDERS: Admitting Provider Family Medicine; Emergency Provider Surgery; PCP Family Medicine; Visit Provider Hospitalist
DX: R41.82 Altered mental status, unspecified (principal); E43 Unspecified severe protein-calorie malnutrition; I47.20 Ventricular tachycardia, unspecified; I13.0 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 1 through stage 4 chronic kidney disease, or unspecified chronic kidney disease; F02.83 Dementia in other diseases classified elsewhere, unspecified severity, with mood disturbance; N17.9 Acute kidney failure, unspecified; I50.32 Chronic diastolic (congestive) heart failure; N13.8 Other obstructive and reflux uropathy; L89.319 Pressure ulcer of right buttock, unspecified stage; L89.329 Pressure ulcer of left buttock, unspecified stage; R13.12 Dysphagia, oropharyngeal phase; Z66 Do not resuscitate; G20.A1 Parkinson's disease without dyskinesia, without mention of fluctuations; E11.22 Type 2 diabetes mellitus with diabetic chronic kidney disease; N18.32 Chronic kidney disease, stage 3b; D64.9 Anemia, unspecified; Z68.34 Body mass index [BMI] 34.0-34.9, adult; Z95.2 Presence of prosthetic heart valve; E11.622 Type 2 diabetes mellitus with other skin ulcer; R44.1 Visual hallucinations; I48.0 Paroxysmal atrial fibrillation; E78.5 Hyperlipidemia, unspecified; I25.10 Atherosclerotic heart disease of native coronary artery without angina pectoris; M19.90 Unspecified osteoarthritis, unspecified site; I25.2 Old myocardial infarction; I34.0 Nonrheumatic mitral (valve) insufficiency; E87.5 Hyperkalemia; S80.811A Abrasion, right lower leg, initial encounter; S80.812A Abrasion, left lower leg, initial encounter; S50.312A Abrasion of left elbow, initial encounter; T42.8X5A Adverse effect of antiparkinsonism drugs and other central muscle-tone depressants, initial encounter; R53.81 Other malaise; E66.811 Obesity, class 1; N40.1 Benign prostatic hyperplasia with lower urinary tract symptoms; Z91.81 History of falling; Z90.49 Acquired absence of other specified parts of digestive tract; Z85.72 Personal history of non-Hodgkin lymphomas; Z79.82 Long term (current) use of aspirin; Z79.84 Long term (current) use of oral hypoglycemic drugs; Z79.899 Other long term (current) drug therapy; Z87.891 Personal history of nicotine dependence
CPT/HCPCS: 36415; 70450; 71046; 74230; 80048; 80053; 81001; 82962; 84443; 84484; 85025; 85027; 87631; 92526; 92610; 92611; 93005; 93306; 94762; 97110; 97116; 97162; 97166; 97530; 97535; 97802; 99285; Q9957; A4216; C8929

== ENCOUNTER 2024-04-27 17:25 | Inpatient (IN) | payer OTHER, SELFPAY ==
[2024-04-27 18:11] VITALS: BP 156/50; PULSE 97; RESP 15; TEMP 36.6; O2SAT 99; BMI 36.7
--- NOTE | 2024-04-27 20:05 | HP.PCM_ITS ---
HPI - General General Date of Admission: 04/27/24 Date of Service: 04/28/24 Chief Complaint: Here for rehabilitation. HPI Narrative AXEL SERRANO, is a 83 Male who presents with followin04/18/2024 [facility] ED with change in mental status. Episodic confusion, delrium for 2 weeks. Visual hallucinations, recent restart of Sinemet, then stopped it. Hallucinations worse, cough, decreased oral intake. Frequent falls 2/[address] bran negative, urinalysis negative. EKG atrial fibrillation with rvr, amiodarone drip started, start Eliquis. 04/24/2024 Admit [facility]. IV fluids, Hold Sinemet, Hold gabapentin for encephalopathy/hallucinations. . Hold Lasix. Echo, Amiodarone drip, Eliquis for new onset atrial fibrillation with rvr. 04/24/2024 Echo LVEF 40%. Mild concentric LVH. Mild to moderate global hypokinesis of LV. Bioprosthetic aortic valve. 04/25/2024 Tired, confused. PT/OT. Parkinson Disease Dementia NPO per ST. Atrial fibrillation convered to sinus rhythm, Lopressor 50mg bid, Eliquis 5mg bid. Gurmeet resolved with IV fluids. 04/26/2024 More alert and oriented. PT/OT for SNF, NPO, plan bedside swallow evaluation. Lopressor 50mg bid, Eliquis 5mg bid, new onset atrial fibrillation with RVR. GURMEET resolved. 04/27/2024 Admit to TCU with debility, here for rehabilitation, strengthening, prior to discharge home with . [facility] Medical History (Updated 04/27/24 @ 20:[address] 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) Chronic kidney disease (CKD) Non-ischemic cardiomyopathy History of non-ST elevation myocardial infarction (NSTEMI) (01/22/20) Chronic systolic (congestive) heart failure CHF (congestive heart failure), NYHA class III 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 Mild chronic anemia Nonrheumatic aortic (valve) stenosis Non-Hodgkin lymphoma Obesity Splenic artery aneurysm Type 2 diabetes mellitus Kidney stones HLD (hyperlipidemia) Home Medications ?Medication ?Instructions ?Recorded ?Last Taken ?Type aspirin 81 mg tablet,delayed 81 mg PO DAILY@1999 [facility] 01/22/20 04/26/24 21:05 History release metoprolol tartrate 50 mg tablet 50 mg PO BID blood sugar #60 tabs 01/24/20 08/14/20 Rx folic acid 1 mg tablet 1 mg PO DAILY [facility] 11/11/21 04/27/24 08:20 History atorvastatin 40 mg tablet 40 mg PO DAILY cholesterol 02/20/22 04/26/24 21:05 History cholecalciferol (vitamin D3) 1,250 50,000 unit PO QWEEK health 02/20/22 Unknown History mcg (50,000 unit) capsule [facility] sertraline 50 mg tablet 50 mg PO DAILY Depression 02/20/22 04/27/24 08:20 History mecobalamin (vitamin B12) 1,000 1,000 mcg PO DAILY health 11/16/23 Unknown History mcg chewable tablet [facility] metformin 500 mg tablet,extended 500 mg PO BID DM 11/16/23 04/27/24 08:20 History release 24 hr saw palmetto 1 cap PO DAILY prostate 11/16/23 Unknown History sitagliptin phosphate 50 mg tablet 50 mg PO QDAY Diabetes 11/16/23 Unknown History (Januvia) furosemide 40 mg tablet See Rx Instructions .Route 04/19/24 Unknown Rx .COMPLEX water pill #90 tabs tamsulosin 0.4 mg capsule (Flomax) 0.8 mg PO DAILY bladder 04/24/24 04/27/24 08:20 History apixaban 5 mg tablet (Eliquis) 2.5 mg (1/2 x 5 mg) PO BID blood 04/27/24 04/27/24 08:20 Rx thinner 30 days #30 tabs ferrous gluconate 324 mg (37.5 mg 325 mg (1.0031 x 324 mg (37.5 mg 04/27/24 04/27/24 08:20 Rx iron) tablet iron)) [facility] #15 tabs Allergy/AdvReac Type Severity Reaction Status Date / Time No Known Allergies Allergy Verified 04/24/24 16:19 Family History Mother Heart disease Father Heart disease Brother Heart disease Surgical History History of left heart catheterization (08/14/20) Hx of cataract surgery Hx of cholecystectomy Social History (Updated 04/27/24 @ 20:[address] Bertrand Romano MD) household members: spouse Smoking Status: Former smoker how long ago did patient quit smokin alcohol intake: never substance use type: does not use caffeine: Yes Type: coffee Number of servings: 2 ROS Constitutional Constitutional: Reports weakness; Denies chills, fever(s) or weight gain ENT HEENT: Denies headache(s), nasal congestion or nasal discharge Cardiovascular Cardiovascular: Denies chest pain or palpitations Respiratory/Chest Respiratory/Chest: Denies cough, excessive phlegm production or shortness of breath with exertion Gastrointestinal Gastrointestinal: Denies abdominal pain, nausea or vomiting Genitourinary Genitourinary: Denies dysuria Musculoskeletal Musculoskeletal: Denies joint pain or joint swelling Integumentary Integumentary: Denies rash or wounds Neurologic Neurologic: Denies focal weakness, numbness or tingling Psychiatric Psychiatric: Denies anxiety, auditory hallucinations, depression, homicidal ideation or suicidal ideation Vital Signs Vital Signs Vital Signs: 04/27/24 18:11 04/27/24 18:11 Temperature 97.8 F Temperature Source Oral Pulse Rate 97 Pulse Rhythm Regular Respiratory Rate 15 Respiratory Effort Normal Non-Labored Respiratory Depth Normal Respiratory Pattern Normal Blood Pressure 156/50 H Blood Pressure Mean 85 Blood Pressure Source Monitor Blood Pressure Position Sitting Blood Pressure Location Left Arm Pulse Ox 99 99 Oxygen Delivery Method Room Air Room Air Weight Weight: 122.787 kg Body Mass Index (BMI) 36.7 Physical Exam Const alert General Appearance: cooperative HEENT normocephalic Eyes PERRL and EOMs intact bilaterally Neck supple, no JVD and no carotid bruits Resp normal respiratory effort, normal air movement and clear to auscultation bilaterally Cardio regular rate and regular rhythm GI normal to inspection, nondistended, normoactive bowel sounds, non-tender and non-distended Extremity normal capillary refill General Extremity: Negative for edema Skin no rashes or lesions noted General Skin Exam: no breakdown Neuro moves all extremities Neuro Narrative: Right hand resting tremor. Psych affect normal Appearance: appropriate Results Lab / Micro Data 04/28/24 05:09 04/28/24 05:09 Assessment & Plan Assessment/Plan (1) Debility: (2) Altered mental status: (3) Multiple falls: (4) Visual hallucinations: (5) GURMEET (acute kidney injury): (6) New onset atrial fibrillation: (7) Parkinson disease: (8) Parkinson's disease dementia: (9) Coronary artery disease: (10) HFrEF (heart failure with reduced ejection fraction): (11) HLD (hyperlipidemia): QUALIFIERS: Hyperlipidemia type: pure hypercholesterolemia Q ualified Code(s): E78.00 - Pure hypercholesterolemia, unspecified (12) Anemia: (13) Diabetes mellitus: (14) Essential (primary) hypertension: (15) Depression: (16) Iron deficiency anemia: (17) B12 deficiency: (18) BPH (benign prostatic hyperplasia): PLAN: Plan 83 year old male with below past medical history hospitalized for change in mental status, acute kidney injury, visual hallucinations, multiple falls, complicated by new onset atrial fibrillation with rapid ventricular response, admitted to TCU with debility, here for rehabilitation, strengthening, prior to discharge home with . * Debility - PT/OT. * Dysphagia - ST. * Cognition - ST. * Pain - Tylenol 1000mg q6 prn pain (1-10). * Bowel - senna/colace 1 tablet bid, Magnesium citrate 300mL daily prn. * Adult immunization - Administer pneumonia vaccine, covid vaccine, flu vaccine as appropriate. * DVT prophylaxis - on Eliquis. * Atrial fibrillation - Metoprolol 50mg bid, Eliquis 2.5mg bid. * Hyperlipidemia - Atorvastatin 40mg qhs. * B12 deficiency - B12 1000mcg daily. * Vitamin D deficiency - D 1.25mg per week. * Iron deficiency anemia - Ferrous gluconate 325mg q48. * Folate deficiency - Foic acid 1mg daily. * HFrEF - Metoprolol 50mg bid, Furosemide 40mg daily * Diabetes Mellitus II - Metformin 500mg bidcm, Tradjenta 5mg daily. * Skin irritation - Calmoseptine topical bid. * Depression - Sertraline 50mg daily, stable chronic mcc use, GDR not recommended. * BPH - Tamsulosin 0.8mg daily.
[2024-04-27 21:47] VITALS: BP 166/51; PULSE 73
[2024-04-27] MEDS: Metoprolol Tartrate 50 MG Tablet PO (21:47)
[2024-04-27] MEDS: Senna/Docusate Sodium 1 Tablet PO (21:47)
[2024-04-27] MEDS: APIXABAN 2.5 MG TABLET (WCH) PO (21:47)
[2024-04-27] MEDS: Atorvastatin Calcium 40 MG Tablet PO (21:48)
[2024-04-27] MEDS: Menthol/Lanolin/Calamine/Znox 113 GM Tube 1 APPLIC TOPICAL (21:52)
[2024-04-28 05:27] LABS: Basophil# 0.04 X10^3/uL; Basophil% 0.5 % (0-1); Eosinophil# 0.43 X10^3/uL; Eosinophils% 4.9 % (0-5); Hematocrit 31.3 % (40-54); Hemoglobin 10.2 g/dL (13.0-16.5); Mean Corp Hgb Conc 32.6 g/dL (32-36); Mean Corpuscular Hgb 29.1 pg (27.0-32.0); Mean Corpuscular Volume 89.4 fL (80-94); Mean Platelet Vol. 9.6 fl (6.2-12.0); Monocyte# 0.84 X10^3/uL; Monocyte% 9.6 % (0-10); NRBC Flagged by Analyzer 0 % (0-5); Neutrophil # 5.96 X10^3/uL (2.7-7.7); Neutrophil % 68.3 % (47-70); Platelet Count 218 K/mm3 (150-450); RBC Distribution Width CV 15.8 % (11.6-14.6); White Blood Count 8.7 K/mm3 (4.4-11.0)
[2024-04-28 05:50] LABS: Anion Gap 5 (5-15); BUN 26 mg/dL (7-18); BUN/Creat Ratio 14.7 RATIO (10-20); Calcium,Total 8.8 mg/dL (8.5-10.1); Chloride 109 mmol/L (98-107); Creatinine, Serum 1.77 mg/dL (0.70-1.30); EST Glomerular Filtration Rate 39 mL/min (>60); Est Glom Filt Rate - Afr Amer 47 mL/min (>60); Estimated Creatinine Clearance 42.79 ml/min; Glucose 146 mg/dL (74-106); Sodium Level 138 mmol/L (136-145)
[2024-04-28 06:49] LABS: Bedside Glucose 149 mg/dL (74-106)
[2024-04-28 09:17] VITALS: BP 106/57; PULSE 83; RESP 17; TEMP 36.9; O2SAT 96
[2024-04-28] MEDS: metFORMIN (XR) 500 MG Tablet PO ×2 (09:23→17:18)
[2024-04-28] MEDS: APIXABAN 2.5 MG TABLET (WCH) PO ×2 (09:24→20:25)
[2024-04-28] MEDS: Tamsulosin HCl 0.4 MG Capsule 0.8 MG PO (09:24)
[2024-04-28] MEDS: Menthol/Lanolin/Calamine/Znox 113 GM Tube 1 APPLIC TOPICAL ×2 (09:24→20:23)
[2024-04-28 09:25] VITALS: PULSE 83
[2024-04-28] MEDS: Furosemide 40 MG Tablet PO (09:25)
[2024-04-28] MEDS: Metoprolol Tartrate 50 MG Tablet PO ×2 (09:25→20:25)
[2024-04-28] MEDS: Senna/Docusate Sodium 1 Tablet PO ×2 (09:25→20:26)
[2024-04-28] MEDS: LINAGLIPTIN 5 MG TABLET PO (09:25)
[2024-04-28] MEDS: Folic Acid 1 MG Tablet PO (09:25)
[2024-04-28] MEDS: Sertraline 50 MG Tablet PO (09:26)
[2024-04-28] MEDS: Cyanocobalamin 500 MCG Tablet 1000 MCG PO (09:26)
[2024-04-28] MEDS: Tuberculin,Purif.prot.deriv. 50 TU/ML Vial 0.1 ML ID (09:26)
--- NOTE | 2024-04-28 13:22 | NURSING ---
Labor/Excavator Note; Activity Asset: Oswaldo Lyles is independent in his choice of daily activities. He will watch tv, read, play cards with his . Staff gave him a deck of cards and newspaper and offered out of room activities and stated he prefers in room activities at this time. Family will visit and bring him items he may need. Staff will remind him of social activities and respect his right to say no.
[2024-04-28 16:39] LABS: Bedside Glucose 140 mg/dL (74-106)
--- NOTE | 2024-04-28 17:30 | CASEMGMT ---
Social Work Admit Note Met with pt to complete initial assessment, and then later spoke with Suri via phone. Introduced self and role. Verified and updated contacts. Patient and both report is to be the primary contact, but patient's nephew Rupesh can be listed second. [facility] is on file, with listed first, then a niece and nephew. Per request, nephew is to be the second point of contact. Asked if a Living Will was ever completed, and is not sure. Agrees to look around and bring in if finds one. At this juncture, there is no report of actually having any LW completed. Discussed code status with patient who confirms wish to be a full code. Educated patient to Medicare coverage, though this sql report writer learned as of 05.10.2024 patient is switching to a MMO HMO plan. Educated patient briefly, that will need to seek and obtain insurance authorization when insurance switchover occurs. Mentioned that authorization is not guaranteed. At this point in conversation with patient, the patient appeared to become upset and less focused. Patient acknowledged this is something to further discuss with his Suri. Spoke with on the phone, educated that patient is covered by [facility] at this point, but when insurance changes, authorization will be requested on 05.11.2024, after the holiday. Educated that length of stay is dependent then on insurance approving, and that if insurance were to deny continued stay at first request discharge would be on 05.12.2023, and the cost of stay for any days in May would be patient liability. Educated to private pay cost if 660 a day. reports to have the new insurance cards, and asked if work could be done to see about coverage beforehand. Educated that cannot request authorization for an insurance not yet active. expressed understanding and asked to be the person to discuss insurance and payment issues with. asked this sql report writer to go back and talk with patient as patient was upset about the insurance. Went back to see patient who appeared more confused as compared to earlier conversation, undressing self in chair, asking to leave, and that wants to go home and sleep. Nurse in room for med pass. Reoriented patient about being in TCU, assured the patient has insurance coverage currently and need to stay at TCU. Patient stated that is not worried about insurance. Patient did express not knowing what to do. Updated patient that dinner will be soon, and then patient will have therapy tomorrow, and patient gets to stay and sleep at TCU. Patient accepted redirection and allowed nurse who was in room to help get gown back on correctly. Patient also agreeable to have this sql report writer assist in calling the . Assisted with call, updated that SW spoke with patient who seems to be calmer. Left patient talking to on the phone. Patients goal is to return home alone with continued support. hopeful to have HHC follow at discharge. SW to continue to follow for DC planning. -CIARA Kim
[2024-04-28 20:25] VITALS: BP 189/84; PULSE 65
[2024-04-28] MEDS: Atorvastatin Calcium 40 MG Tablet PO (20:26)
--- NOTE | 2024-04-28 23:47 | NURSING ---
Addendum entered by Conner Musa 04/29/24 06:36: Written communication left for Dr. Romano regarding pt. intermittent restlessness/aggression/intervention Original Note: Personal alarm sounding, patient immediately assessed, call light observed within reach, patient observed attempting self trasnfer out of bed. Confused per baseline (dx: parkinsons disease dementia), 2 staff members present in room , patient agitated, going home, difficult to redirect, attempt to reorient to time/place ineffective. patient attempting to walk out of room, pushing staff out of the way, despite attempts to assist patient safely back to bed, refusing walker, I'm going home. 1:1 provided, declines snack, fluid, toilet. Accepts assist to recliner, agrees to sit in common area with staff observation, soft music playing, call cadet in reach, sitting in recliner with BLE elevated, accepts blanket and pillow for comfort, closes eyes, no further agitation at this time. No distress observed or reported.
[2024-04-29] VITALS (7 sets, daily range): BP systolic 138–142; BP diastolic 67–68; PULSE 65–81; RESP 16–22; TEMP 35.6; O2SAT 95–98
[2024-04-29 06:09] LABS: Bedside Glucose 137 mg/dL (74-106)
[2024-04-29] MEDS: Folic Acid 1 MG Tablet PO (09:36)
[2024-04-29] MEDS: APIXABAN 2.5 MG TABLET (WCH) PO ×2 (09:36→20:43)
[2024-04-29] MEDS: metFORMIN (XR) 500 MG Tablet PO ×2 (09:36→17:15)
[2024-04-29] MEDS: Ferrous Gluconate 324 MG Tablet 325 MG PO (09:37)
[2024-04-29] MEDS: Tamsulosin HCl 0.4 MG Capsule 0.8 MG PO (09:38)
[2024-04-29] MEDS: Furosemide 40 MG Tablet PO (09:38)
[2024-04-29] MEDS: Senna/Docusate Sodium 1 Tablet PO ×2 (09:39→20:43)
[2024-04-29] MEDS: LINAGLIPTIN 5 MG TABLET PO (09:39)
[2024-04-29] MEDS: Metoprolol Tartrate 50 MG Tablet PO ×2 (09:39→20:43)
[2024-04-29] MEDS: Cyanocobalamin 500 MCG Tablet 1000 MCG PO (09:40)
[2024-04-29] MEDS: Sertraline 50 MG Tablet PO (09:41)
[2024-04-29] MEDS: Menthol/Lanolin/Calamine/Znox 113 GM Tube 1 APPLIC TOPICAL ×2 (09:41→20:44)
--- NOTE | 2024-04-29 13:32 | NURSING ---
Addendum entered by Jeremiah Hurley 04/29/24 13:47: CORRECTION LT HUMERUS. TALKED TO PT AND STATED ALL X RAYS ON 03/16/24 REPORTS STATED THERE WAS NO FRACTURES, STATED THAT HER WAS STILL HURTING AND TOOK HIM TO A ORTHOPEDIC DR. AT [facility] IN [place] AND THAT DR STATED THAT PT DID HAVE A LT HUMERUS FRACTURE. RN AWARE. Original Note: PT STATED TO THIS NURSE THAT PT HAD A BROKEN RT HUMERUS IN MAR. AND WASNT SURE IT WAS IN PT CHART. RN AWARE
--- NOTE | 2024-04-29 13:51 | PHA.CONS_ITS ---
Documented by User: Reagan Edwards 04/29/24 14:11 TCU RX Drug Regimen Review Subjective/Objective Subjective/Objective Subjective: TCU admission note. 83 year old male with below past medical history hospitalized for change in mental status, acute kidney injury, visual hallucinations, multiple falls, complicated by new onset atrial fibrillation with rapid ventricular response, admitted to TCU with debility, here for rehabilitation, strengthening, prior to discharge home with . Objective: Allergies No Known Allergies Allergy (Verified 04/24/24 16:19) Current Medications Generic Name Dose Route Start Last Admin Trade Name Freq PRN Reason Stop Dose Admin Acetaminophen 1,000 mg 04/27/24 20:26 Acetaminophen 500 Mg Tablet PO Q6H PRN PRN Pain Score 1-10 Apixaban 2.5 mg 04/27/24 22:00 04/29/24 09:36 Apixaban 2.5 Mg Tablet ([facility]) PO 2.5 mg BID HAIM Administration Atorvastatin Calcium 40 mg 04/27/24 22:00 04/28/24 20:26 Atorvastatin Calcium 40 Mg Tablet PO 40 mg QHS HAIM Administration Calamine/Phenol 1 applic 04/27/24 22:00 04/29/24 09:41 Menthol/Lanolin/Calamine/Znox 113 Gm Tube TOPICAL 1 applic BID HAIM Administration Protocol Cyanocobalamin 1,000 mcg 04/28/24 10:00 04/29/24 09:40 Cyanocobalamin 500 Mcg Tablet PO 1,000 mcg DAILY HAIM Administration Ergocalciferol 1.25 mg 05/01/24 10:00 Ergocalciferol 1.25 Mg (50, 000 Unit) Capsule PO Mo@1000 [facility] Ferrous Gluconate 325 mg 04/29/24 10:00 04/29/24 09:37 Ferrous Gluconate 324 Mg Tablet PO 324 mg Q48 HAIM Administration Folic Acid 1 mg 04/28/24 10:00 04/29/24 09:36 Folic Acid 1 Mg Tablet PO 1 mg DAILYCM HAIM Administration Furosemide 40 mg 04/28/24 10:00 04/29/24 09:38 Furosemide 40 Mg Tablet PO 40 mg DAILY HAIM Administration Protocol Linagliptin 5 mg 04/28/24 10:00 04/29/24 09:39 Linagliptin 5 Mg Tablet PO 5 mg DAILY HAIM Administration Magnesium Citrate 300 ml 04/27/24 20:26 Magnesium Citrate 300 Ml PO DAILY PRN Constipation Metformin HCl 500 mg 04/28/24 08:00 04/29/24 09:36 Metformin (Xr) 500 Mg Tablet PO 500 mg BIDCM HAIM Administration Metoprolol Tartrate 50 mg 04/27/24 22:00 04/29/24 09:39 Metoprolol Tartrate 50 Mg Tablet PO 50 mg BID HAIM Administration Protocol Senna/Docusate Sodium 1 tablet 04/27/24 22:00 04/29/24 09:39 Senna/Docusate Sodium 1 Tablet PO 1 tablet BID HAIM Administration Sertraline HCl 50 mg 04/28/24 10:00 04/29/24 09:41 Sertraline 50 Mg Tablet PO 50 mg DAILY HAIM Administration Sodium Chloride 10 - 40 ml 04/27/24 18:14 0.9% Saline Lock 10 Ml Syringe IV UD PRN SALINE FLUSH Tamsulosin HCl 0.8 mg 04/28/24 10:00 04/29/24 09:38 Tamsulosin Hcl 0.4 Mg Capsule PO 0.8 mg DAILY HAIM Administration Tuberculin PPD 0.1 ml 05/05/24 10:00 Tuberculin,Purif.Prot.Deriv. 50 Tu/Ml Vial ID 05/05/24 10:01 X1 ONE Problem List BPH (benign prostatic hyperplasia) (Acute) B12 deficiency (Acute) Iron deficiency anemia (Acute) Depression (Acute) Essential (primary) hypertension (Acute) Diabetes mellitus (Acute) HFrEF (heart failure with reduced ejection fraction) (Acute) Coronary artery disease (Acute) Parkinson's disease dementia (Acute) Parkinson disease (Acute) New onset atrial fibrillation (Acute) Visual hallucinations (Acute) Multiple falls (Acute) Debility (Acute) Altered mental status (Acute) Anemia (Acute) HLD (hyperlipidemia) (Chronic) Vital Signs Temp Pulse Resp BP Pulse Ox O2 Del Method 98.4 F 68 16 138/68 H 98 Room Air 04/28/24 09:17 04/29/24 09:54 04/29/24 04:00 04/29/24 09:54 04/29/24 09:54 04/29/24 09:54 Oxygen Delivery Method Room Air Weight: 122.787 kg Body Mass Index (BMI) 36.7 Sodium 138 mmol/L (136-145) 04/28/24 05:09 Potassium 4.0 mmol/L (3.5-5.1) 04/28/24 05:09 Chloride 109 mmol/L (98-107) H 04/28/24 05:09 Carbon Dioxide 25.0 mmol/L (21.0-32.0) 04/28/24 05:09 Anion Gap 5 (5-15) 04/28/24 05:09 BUN 26 mg/dL (7-18) H 04/28/24 05:09 Creatinine 1.77 mg/dL (0.70-1.30) H 04/28/24 05:09 Est GFR (MDRD) Af Amer 47 mL/min (>60) L 04/28/24 05:09 Est GFR (MDRD) Non-Af 39 mL/min (>60) L 04/28/24 05:09 BUN/Creatinine Ratio 14.7 RATIO (10-20) 04/28/24 05:09 Glucose 146 mg/dL (74-106) H 04/28/24 05:09 Assessment/Plan: 1. Pain: acetaminophen 1000 mg PO Q6H PRN pain. The patient has not required any PRN doses of acetaminophen so far this admission. Please continue to monitor pain levels, PRN medication usage, and LFTs (AST/ALT = 9/12 U/L on 04/24/24). 2. Bowel: senna/docusate 1 tablet PO BID, magnesium citrate 300 mL PO daily PRN constipation. The patient has not required any PRN doses of magnesium citrate so far this admission and the patient's last bowel movement is documented as 04/25/24. Please continue to monitor for bowel movements, constipation, diarrhea, and for PRN medication usage. 3. Atrial fibrillation/HFrEF: apixaban 2.5 mg PO BID, furosemide 40 mg PO daily, metoprolol tartrate 50 mg PO BID. Please continue to monitor for s/s of stroke, for s/s of a CHF exacerbation such as shortness of breath and edema, for bleeding/excessive bruising, hemoglobin levels (Hgb = 10.2 g/dL on 04/28/24), platelet count (Plt = 218 K/mm3 on 04/28/24), renal function (serum creatinine = 1.77 mg/dL with creatinine clearance ~ 43 mL/min on 04/28/24), sodium levels (Na = 138 mmol/L on 04/28/24), potassium levels (K = 4.0 mmol/L on 04/28/24), calcium levels (Ca = 8.8 mg/dL on 04/28/24), for s/s of dehydration, blood pressures (recent range = 138-175/50-83 mmHg), heart rates (recent range = 64-97 beats/min), and for fatigue. The patient had an echocardiogram that showed an EF of 40% on 04/24/24. The patient should be switched to metoprolol succinate 50 mg PO daily for an evidence-based beta daniella. Please also consider adding additional agents such as lisinopril 5 mg PO daily, and spironolactone 25 mg PO daily and titrate each as blood pressure will allow for additional evidence- based therapy for HFrEF, which in turn will also help control the patient's blood pressures which have been elevated over the past several days. 4.Diabetes Mellitus II: metformin XR 500 mg PO BID with meals, linagliptin 5 mg PO daily. Please continue to monitor blood glucose levels (recent range = 122- 198 mg/dL), hemoglobin A1C levels (A1C = 7.3% on 01/23/20), vitamin B12 levels (no recent vitamin B12 levels documented), renal function (serum creatinine = 1.77 mg/dL with creatinine clearance ~ 43 mL/min and GFR = 39 mL/min on 04/28/24), for GI distress, and join pains. 5. Hyperlipidemia: atorvastatin 40 mg PO QHS. Please continue to monitor lipid levels (cholesterol = 176 mg/dL with LDL = 101 mg/dL on 01/23/20), LFTs (AST/ALT = 9/12 U/L on 04/24/24), and for myalgias. Please consider ordering an annual lipid panel if clinically indicated. 6. BPH: tamsulosin 0.8 mg PO daily. Please continue to monitor for urinary retention, and for s/s of orthostasis. 7. B12 deficiency/vitamin D deficiency/iron deficiency anemia/folate deficiency: cyanocobalamin 1000 mcg PO daily, ergocalciferol 1.25 mg PO weekly, ferrous gluconate 325 mg every other day, folic acid 1 mg PO daily. Please continue to monitor vitamin B12 levels (no recent level documented), vitamin D levels (no recent vitamin D level documented), iron levels (iron = 63 ug/dL on 03/08/24), and hemoglobin levels (Hgb = 10.2 g/dL on 04/28/24). Please consider obtaining vitamin B12 and vitamin D levels if clinically indicated. 8. Skin irritation: calmoseptine 1 application topically BID. Please continue to monitor for skin irritation. Assessment/Plan for indications treated with psychotropic medications: 1. Depression: sertraline 50 mg PO daily. Please see provider note regarding stable chronic long-term use GDR not recommended. Please continue to monitor for depression, for SI, for s/s of serotonin syndrome, sodium levels (Na = 138 mmol/L on 04/28/24), for diarrhea, nausea, dry mouth, dizziness, drowsiness, and fatigue. Medical chart and medication regimen reviewed. The following medication irregularities or issues were identified: 1. Atrial fibrillation/HFrEF: apixaban 2.5 mg PO BID, furosemide 40 mg PO daily, metoprolol tartrate 50 mg PO BID. The patient had an echocardiogram that showed an EF of 40% on 04/24/24. The patient should be switched to metoprolol succinate 50 mg PO daily for an evidence-based beta daniella. Please also consider adding additional agents such as lisinopril 5 mg PO daily, and spironolactone 25 mg PO daily and titrate each as blood pressure will allow for additional evidence- based therapy for HFrEF, which in turn will also help control the patient's blood pressures which have been elevated over the past several days. 2. Hyperlipidemia: atorvastatin 40 mg PO QHS. Please consider ordering an annual lipid panel if clinically indicated. 3. B12 deficiency/vitamin D deficiency/iron deficiency anemia/folate deficiency: cyanocobalamin 1000 mcg PO daily, ergocalciferol 1.25 mg PO weekly, ferrous gluconate 325 mg every other day, folic acid 1 mg PO daily. Please consider obtaining vitamin B12 and vitamin D levels if clinically indicated. Date Date of Note: 04/29/24
--- NOTE | 2024-04-29 15:00 | NURSING ---
dr grover notified of aggression, aggitation & confusion at times during night. new order for PRN Ativan.
[2024-04-29 16:54] LABS: Bedside Glucose 143 mg/dL (74-106)
[2024-04-29] MEDS: LORazepam 0.5 MG Tablet PO (20:43)
[2024-04-29] MEDS: Atorvastatin Calcium 40 MG Tablet PO (20:43)
[2024-04-30 06:39] LABS: Bedside Glucose 137 mg/dL (74-106)
[2024-04-30] MEDS: Menthol/Lanolin/Calamine/Znox 113 GM Tube 1 APPLIC TOPICAL ×2 (09:17→22:37)
[2024-04-30] MEDS: metFORMIN (XR) 500 MG Tablet PO ×2 (09:21→17:54)
[2024-04-30] MEDS: Folic Acid 1 MG Tablet PO (09:21)
[2024-04-30] MEDS: Tamsulosin HCl 0.4 MG Capsule 0.8 MG PO (09:22)
[2024-04-30] MEDS: APIXABAN 2.5 MG TABLET (WCH) PO ×2 (09:22→22:36)
[2024-04-30 09:23] VITALS: BP 126/82; PULSE 80
[2024-04-30] MEDS: Furosemide 40 MG Tablet PO (09:23)
[2024-04-30] MEDS: Metoprolol Tartrate 50 MG Tablet PO (09:23)
[2024-04-30] MEDS: LINAGLIPTIN 5 MG TABLET PO (09:24)
[2024-04-30] MEDS: Cyanocobalamin 500 MCG Tablet 1000 MCG PO (09:24)
[2024-04-30] MEDS: Senna/Docusate Sodium 1 Tablet PO ×2 (09:24→22:36)
[2024-04-30] MEDS: Sertraline 50 MG Tablet PO (09:25)
[2024-04-30 09:33] VITALS: BP 126/82; PULSE 80; RESP 18; O2SAT 97
[2024-04-30 11:05] VITALS: PULSE 76; RESP 16; O2SAT 97
[2024-04-30 13:57] VITALS: RESP 16; TEMP 36.5
[2024-04-30 16:57] LABS: Bedside Glucose 133 mg/dL (74-106)
[2024-04-30 22:33] VITALS: BP 110/62; PULSE 76
[2024-04-30] MEDS: LORazepam 0.5 MG Tablet PO (22:35)
[2024-04-30 22:36] VITALS: PULSE 76
[2024-04-30] MEDS: Metoprolol(XL)Succ 50 MG Tablet PO (22:36)
[2024-04-30] MEDS: Atorvastatin Calcium 40 MG Tablet PO (22:37)
[2024-05-01 06:17] LABS: Cholesterol 83 mg/dL (200); High Density Lipoprotein 44 mg/dL; Triglycerides 104 mg/dL; Very Low Density Lipoprotein 21 mg/dL (5-40)
[2024-05-01 06:44] LABS: Bedside Glucose 132 mg/dL (74-106)
--- NOTE | 2024-05-01 07:30 | NURSING ---
Dressing to left lower extremity changed this morning per order
[2024-05-01 08:36] LABS: Vitamin B12 1076 pg/mL (211-911); Vitamin D,25 Hydroxy 53.4 ng/mL
[2024-05-01 09:56] VITALS: BP 95/56; PULSE 72; RESP 16; TEMP 36.4; O2SAT 96
[2024-05-01] MEDS: Menthol/Lanolin/Calamine/Znox 113 GM Tube 1 APPLIC TOPICAL ×2 (10:01→22:00)
[2024-05-01] MEDS: Folic Acid 1 MG Tablet PO (10:01)
[2024-05-01] MEDS: metFORMIN (XR) 500 MG Tablet PO ×2 (10:01→16:01)
[2024-05-01] MEDS: Ferrous Gluconate 324 MG Tablet 325 MG PO (10:02)
[2024-05-01] MEDS: APIXABAN 2.5 MG TABLET (WCH) PO ×2 (10:02→21:15)
[2024-05-01] MEDS: Senna/Docusate Sodium 1 Tablet PO ×2 (10:03→21:15)
[2024-05-01] MEDS: Tamsulosin HCl 0.4 MG Capsule 0.8 MG PO (10:03)
[2024-05-01] MEDS: Furosemide 40 MG Tablet PO (10:03)
[2024-05-01] MEDS: Sertraline 50 MG Tablet PO (10:04)
[2024-05-01] MEDS: Cyanocobalamin 500 MCG Tablet 1000 MCG PO (10:04)
[2024-05-01] MEDS: Ergocalciferol 1.25 MG (50, 000 UNIT) Capsule PO (10:04)
[2024-05-01] MEDS: LINAGLIPTIN 5 MG TABLET PO (10:04)
--- NOTE | 2024-05-01 10:35 | NURSING ---
notified dr grover pt B/p /[id number] pt to receive 50mg metoprolol- dr resendiz to hold
[2024-05-01 12:54] LABS: Bedside Glucose 155 mg/dL (74-106)
[2024-05-01 16:36] LABS: Bedside Glucose 140 mg/dL (74-106)
[2024-05-01 21:12] VITALS: BP 149/83; PULSE 86
[2024-05-01] MEDS: Metoprolol(XL)Succ 50 MG Tablet PO (21:12)
[2024-05-01] MEDS: Atorvastatin Calcium 40 MG Tablet PO (21:12)
[2024-05-01] MEDS: LORazepam 0.5 MG Tablet PO (21:15)
[2024-05-02 06:47] LABS: Bedside Glucose 143 mg/dL (74-106)
[2024-05-02 08:48] VITALS: PULSE 64
[2024-05-02] MEDS: Folic Acid 1 MG Tablet PO (08:48)
[2024-05-02] MEDS: Metoprolol(XL)Succ 50 MG Tablet PO ×2 (08:48→22:45)
[2024-05-02] MEDS: Furosemide 40 MG Tablet PO (08:48)
[2024-05-02] MEDS: LINAGLIPTIN 5 MG TABLET PO (08:48)
[2024-05-02] MEDS: Tamsulosin HCl 0.4 MG Capsule 0.8 MG PO (08:49)
[2024-05-02] MEDS: Senna/Docusate Sodium 1 Tablet PO ×2 (08:49→22:45)
[2024-05-02] MEDS: Menthol/Lanolin/Calamine/Znox 113 GM Tube 1 APPLIC TOPICAL ×2 (08:49→22:44)
[2024-05-02] MEDS: Cyanocobalamin 500 MCG Tablet 1000 MCG PO (08:49)
[2024-05-02] MEDS: Sertraline 50 MG Tablet PO (08:49)
[2024-05-02] MEDS: APIXABAN 2.5 MG TABLET (WCH) PO ×2 (08:49→22:44)
[2024-05-02] MEDS: metFORMIN (XR) 500 MG Tablet PO ×2 (08:49→16:34)
[2024-05-02 14:20] VITALS: BMI 36.5
--- NOTE | 2024-05-02 15:20 | WOUNDNOTE ---
wound photo: left lower leg
--- NOTE | 2024-05-02 15:21 | WOUNDNOTE ---
wound photo: right lower leg
[2024-05-02 18:16] LABS: Bedside Glucose 153 mg/dL (74-106)
[2024-05-02 22:45] VITALS: BP 146/57; PULSE 73
[2024-05-02] MEDS: Atorvastatin Calcium 40 MG Tablet PO (22:45)
[2024-05-03] MEDS: Acetaminophen 500 MG Tablet 1000 MG PO ×2 (01:26→21:13)
--- NOTE | 2024-05-03 05:30 | NURSING ---
UP to BR x 2 assist. Passed xlg amount of loose/liquid brown stool. Reports some abdominal discomfort. Given shai latisha w/ this nurse supervising to ensure safe swallow strategies were followed. Will continue to monitor.
[2024-05-03 06:19] LABS: Bedside Glucose 136 mg/dL (74-106)
[2024-05-03] MEDS: Tamsulosin HCl 0.4 MG Capsule 0.8 MG PO (09:37)
[2024-05-03] MEDS: Ferrous Gluconate 324 MG Tablet 325 MG PO (09:37)
[2024-05-03] MEDS: metFORMIN (XR) 500 MG Tablet PO ×2 (09:38→16:29)
[2024-05-03] MEDS: Folic Acid 1 MG Tablet PO (09:38)
[2024-05-03] MEDS: Menthol/Lanolin/Calamine/Znox 113 GM Tube 1 APPLIC TOPICAL ×2 (09:39→21:08)
[2024-05-03] MEDS: APIXABAN 2.5 MG TABLET (WCH) PO ×2 (09:39→21:09)
[2024-05-03] MEDS: Furosemide 40 MG Tablet PO (09:40)
[2024-05-03] MEDS: Cyanocobalamin 500 MCG Tablet 1000 MCG PO (09:42)
[2024-05-03] MEDS: LINAGLIPTIN 5 MG TABLET PO (09:42)
[2024-05-03] MEDS: Sertraline 50 MG Tablet PO (09:43)
[2024-05-03 09:49] VITALS: BP 138/75; PULSE 61
[2024-05-03] MEDS: Metoprolol(XL)Succ 50 MG Tablet PO ×2 (09:49→21:10)
[2024-05-03 09:55] VITALS: BP 138/75; PULSE 61; O2SAT 96
[2024-05-03 17:25] LABS: Bedside Glucose 122 mg/dL (74-106)
[2024-05-03] MEDS: Atorvastatin Calcium 40 MG Tablet PO (21:09)
[2024-05-03 21:10] VITALS: BP 126/47; PULSE 69
[2024-05-04] VITALS (7 sets, daily range): BP systolic 113–133; BP diastolic 60–70; PULSE 71–81; RESP 16–18; TEMP 36.1; O2SAT 96–97
[2024-05-04] MEDS: Acetaminophen 500 MG Tablet 1000 MG PO (06:08)
[2024-05-04 06:43] LABS: Bedside Glucose 149 mg/dL (74-106)
--- NOTE | 2024-05-04 07:46 | NURSING ---
Skin tear noted to RFA this am. Affected area cleansed w/ NS, pat dry, adaptic applied to wound bed, and mepliex applied. Dressing change completed to rt lateral elbow as ordered. Resident has been restless sitting on the edge of the bed. Intermittent hallucinations this am. Reoriented to time and place. Resident c/o burning w/ urination. Denies abdominal pain or nausea. Positioned in bed for comfort. Alarm activated. Call light w/ in reach. Will continue to monitor.
[2024-05-04] MEDS: Menthol/Lanolin/Calamine/Znox 113 GM Tube 1 APPLIC TOPICAL ×2 (08:36→22:34)
[2024-05-04] MEDS: Folic Acid 1 MG Tablet PO (08:36)
[2024-05-04] MEDS: metFORMIN (XR) 500 MG Tablet PO ×2 (08:36→17:19)
[2024-05-04] MEDS: Tamsulosin HCl 0.4 MG Capsule 0.8 MG PO (08:37)
[2024-05-04] MEDS: APIXABAN 2.5 MG TABLET (WCH) PO ×2 (08:37→22:35)
[2024-05-04] MEDS: Furosemide 40 MG Tablet PO (08:37)
[2024-05-04] MEDS: Metoprolol(XL)Succ 50 MG Tablet PO ×2 (08:38→22:35)
[2024-05-04] MEDS: LINAGLIPTIN 5 MG TABLET PO (08:39)
[2024-05-04] MEDS: Sertraline 50 MG Tablet PO (08:39)
[2024-05-04] MEDS: Cyanocobalamin 500 MCG Tablet 1000 MCG PO (08:39)
--- NOTE | 2024-05-04 10:49 | CASEMGMT ---
BIMS (02/21) and PHQ9 (9) interviews completed on this date for MDS assessment. SW explored patients feelings regarding mood assessment. Pt is able to state that it is difficult to get old, as with aging you are not able to do things that you have interest in doing. Pt feeling down due to decline in health and mobility and ability to care for self. SW offered support and encouragement to verbalize feelings. Pt is able to state he has many friends that are supportive and important to him. Pt denies intent for SI nor does he state he has a means or accessibility. Pt citing that he does not feel that suicide is right and cites many friends as protective factors. Pt does have a history of depression and takes 50mg Zoloft at home. Physician updated on pt PHQ9 score. KIM Falk
[2024-05-04 13:27] LABS: Bacteria 0 SEEN /hpf (None Seen); Mucous, Urine 0 SEEN /hpf (<or=2+); Red Blood Cells-Urine 0 SEEN /hpf (0-5); Squamous Epithelial Cells - UA 0 SEEN /hpf (0-5); White Blood Cells 0 SEEN /hpf (0-5)
[2024-05-04 13:31] LABS: Color, Urine Yellow (Yellow); Glucose, Dipstick Normal (Normal); Ketone-Dipstick Negative (Negative); Leukocyte Esterase-Dipstick Negative /ul (Negative); Nitrite-Dipstick Negative (Negative); Occult Blood-Urine Negative /ul (Negative); Protein-Dipstick 30 mg/dl (Negative); Specific Gravity, Urine 1.015 (1.002-1.030); Urine Bilirubin Dipstick Negative (Negative); Urine Clarity Clear (Clear); Urine Urobilinogen Normal (Normal)
[2024-05-04 13:48] LABS: Hyaline Cast 0-5 SEEN /lpf (0-5)
--- NOTE | 2024-05-04 14:07 | NURSING ---
CALLED AND UPDATED ON PT URINE RESULTS PER ORDER.
--- NOTE | 2024-05-04 15:26 | NURSING ---
UPDATED ON UA TEST AND NEW ORDER FOR [facility] FOR [facility].
[2024-05-04] MEDS: Rivastigmine Tartrate 1.5 MG Capsule PO (17:19)
[2024-05-04 17:48] LABS: Bedside Glucose 124 mg/dL (74-106)
[2024-05-04] MEDS: Atorvastatin Calcium 40 MG Tablet PO (22:35)
[2024-05-05] MEDS: LORazepam 0.5 MG Tablet PO ×2 (01:48→21:15)
[2024-05-05 06:56] LABS: Bedside Glucose 148 mg/dL (74-106)
[2024-05-05 07:57] LABS: Absolute Lymphocyte Count 1.29 X10^3/uL (0.83-4.51); Absolute Neutrophil Count 6.2 X10^3/uL (2.0-7.7); Basophil# 0.04 X10^3/uL; Basophil% 0.5 % (0-1); Eosinophil# 0.31 X10^3/uL; Eosinophils% 3.6 % (0-5); Hematocrit 33.6 % (40-54); Hemoglobin 11.1 g/dL (13.0-16.5); Lymphocyte # 1.29 X10^3/ul (0.83-4.51); Lymphocyte % 14.8 % (19-41); Mean Corpuscular Hgb 29.1 pg (27.0-32.0); Mean Platelet Vol. 9.9 fl (6.2-12.0); Monocyte% 9.2 % (0-10); NRBC Flagged by Analyzer 0 % (0-5); Neutrophil # 6.22 X10^3/uL (2.7-7.7); Neutrophil % 71.2 % (47-70); Platelet Count 207 K/mm3 (150-450); RBC Distribution Width CV 15.4 % (11.6-14.6); RBC Distribution Width SD 49.6 fl (35.1-43.9); Red Blood Count 3.82 M/mm3 (4.6-6.2); White Blood Count 8.7 K/mm3 (4.4-11.0)
[2024-05-05] MEDS: Menthol/Lanolin/Calamine/Znox 113 GM Tube 1 APPLIC TOPICAL ×2 (08:41→21:14)
[2024-05-05] MEDS: Rivastigmine Tartrate 1.5 MG Capsule PO ×2 (08:41→17:09)
[2024-05-05] MEDS: metFORMIN (XR) 500 MG Tablet PO ×2 (08:41→17:09)
[2024-05-05] MEDS: Folic Acid 1 MG Tablet PO (08:41)
[2024-05-05] MEDS: APIXABAN 2.5 MG TABLET (WCH) PO ×2 (08:42→21:15)
[2024-05-05] MEDS: Tamsulosin HCl 0.4 MG Capsule 0.8 MG PO (08:43)
[2024-05-05] MEDS: Ferrous Gluconate 324 MG Tablet 325 MG PO (08:43)
[2024-05-05] MEDS: Senna/Docusate Sodium 1 Tablet PO ×2 (08:44→21:15)
[2024-05-05] MEDS: LINAGLIPTIN 5 MG TABLET PO (08:44)
[2024-05-05] MEDS: Furosemide 40 MG Tablet PO (08:44)
[2024-05-05 08:45] VITALS: PULSE 70
[2024-05-05] MEDS: Metoprolol(XL)Succ 50 MG Tablet PO ×2 (08:45→21:16)
[2024-05-05] MEDS: Cyanocobalamin 500 MCG Tablet 1000 MCG PO (08:46)
[2024-05-05] MEDS: Sertraline 50 MG Tablet PO (08:46)
[2024-05-05] MEDS: Tuberculin,Purif.prot.deriv. 50 TU/ML Vial 0.1 ML ID (09:07)
[2024-05-05 09:50] LABS: Anion Gap 8 (5-15); BUN 33 mg/dL (7-18); BUN/Creat Ratio 16.8 RATIO (10-20); Calcium,Total 9.1 mg/dL (8.5-10.1); Chloride 110 mmol/L (98-107); Creatinine, Serum 1.96 mg/dL (0.70-1.30); EST Glomerular Filtration Rate 35 mL/min (>60); Est Glom Filt Rate - Afr Amer 42 mL/min (>60); Estimated Creatinine Clearance 38.58 ml/min; Glucose 156 mg/dL (74-106); Potassium 4.2 mmol/L (3.5-5.1); Sodium Level 139 mmol/L (136-145)
--- NOTE | 2024-05-05 11:43 | NURSING ---
Inspector [employer] Note; MDS for 05/04/2024 Complete
[2024-05-05 15:17] VITALS: BP 123/66; PULSE 66; RESP 22; TEMP 35.6; O2SAT 96
[2024-05-05 16:53] LABS: Bedside Glucose 171 mg/dL (74-106)
--- NOTE | 2024-05-05 17:21 | CASEMGMT ---
Plan of care meeting held with pt, pt's and pt's niece present. PT/OT/ST provided updated on pt's progress with therapy. Pt with a new insurance to begin on 05/10. RUBIN explained that preauth would be requested on 05/11 and if denied, pt would be financially responsible for TCU stay starting 05/10. If preauth is given, pt will continue on TCU under insurance coverage. Discaharge plan discussed and pt is hopeful that pt can return home at time of discharge. Pt's is able to admit that she will need additional help in the home and she can no longer care for pt by herself. RUBIN provided with a list of private duty aids. appreciative of information. Plan of care will continue at this time and RUBIN will follow for dc planning. KIM Falk
[2024-05-05] MEDS: Atorvastatin Calcium 40 MG Tablet PO (21:15)
[2024-05-05 21:16] VITALS: BP 150/62; PULSE 70
[2024-05-06 06:22] LABS: Bedside Glucose 128 mg/dL (74-106)
[2024-05-06] MEDS: Folic Acid 1 MG Tablet PO (08:54)
[2024-05-06] MEDS: Sertraline 50 MG Tablet PO (08:54)
[2024-05-06] MEDS: Furosemide 40 MG Tablet PO (08:54)
[2024-05-06] MEDS: Tamsulosin HCl 0.4 MG Capsule 0.8 MG PO (08:54)
[2024-05-06] MEDS: metFORMIN (XR) 500 MG Tablet PO ×2 (08:54→17:42)
[2024-05-06] MEDS: LINAGLIPTIN 5 MG TABLET PO (08:54)
[2024-05-06] MEDS: Cyanocobalamin 500 MCG Tablet 1000 MCG PO (08:54)
[2024-05-06] MEDS: APIXABAN 2.5 MG TABLET (WCH) PO ×2 (08:54→20:31)
[2024-05-06 08:55] VITALS: BP 132/69; PULSE 78
[2024-05-06] MEDS: Metoprolol(XL)Succ 50 MG Tablet PO ×2 (08:55→20:30)
[2024-05-06] MEDS: Rivastigmine Tartrate 1.5 MG Capsule PO ×2 (08:55→17:42)
[2024-05-06] MEDS: Menthol/Lanolin/Calamine/Znox 113 GM Tube 1 APPLIC TOPICAL ×2 (08:59→20:32)
[2024-05-06 14:27] VITALS: BP 132/62; PULSE 80; RESP 16; TEMP 36.1; O2SAT 96
[2024-05-06 16:37] LABS: Bedside Glucose 133 mg/dL (74-106)
[2024-05-06 20:26] VITALS: BP 143/65; PULSE 79
[2024-05-06 20:30] VITALS: PULSE 79
[2024-05-06] MEDS: LORazepam 0.5 MG Tablet PO (20:31)
[2024-05-06] MEDS: Atorvastatin Calcium 40 MG Tablet PO (20:32)
[2024-05-07] MEDS: Acetaminophen 500 MG Tablet 1000 MG PO (00:12)
[2024-05-07] MEDS: LORazepam 0.5 MG Tablet PO (00:40)
[2024-05-07 06:36] LABS: Bedside Glucose 136 mg/dL (74-106)
[2024-05-07] MEDS: metFORMIN (XR) 500 MG Tablet PO ×2 (10:01→16:36)
[2024-05-07] MEDS: APIXABAN 2.5 MG TABLET (WCH) PO ×2 (10:01→20:43)
[2024-05-07] MEDS: Folic Acid 1 MG Tablet PO (10:01)
[2024-05-07] MEDS: Rivastigmine Tartrate 1.5 MG Capsule PO ×2 (10:01→16:35)
[2024-05-07 10:03] VITALS: BP 121/74; PULSE 76
[2024-05-07] MEDS: Tamsulosin HCl 0.4 MG Capsule 0.8 MG PO (10:03)
[2024-05-07] MEDS: Furosemide 40 MG Tablet PO (10:03)
[2024-05-07] MEDS: Metoprolol(XL)Succ 50 MG Tablet PO ×2 (10:03→20:42)
[2024-05-07] MEDS: Menthol/Lanolin/Calamine/Znox 113 GM Tube 1 APPLIC TOPICAL ×2 (10:04→20:41)
[2024-05-07] MEDS: LINAGLIPTIN 5 MG TABLET PO (10:04)
[2024-05-07] MEDS: Sertraline 50 MG Tablet PO (10:04)
[2024-05-07] MEDS: Cyanocobalamin 500 MCG Tablet 1000 MCG PO (10:04)
[2024-05-07] MEDS: Senna/Docusate Sodium 1 Tablet PO (10:16)
[2024-05-07] MEDS: Ferrous Gluconate 324 MG Tablet PO (11:08)
[2024-05-07 14:55] VITALS: BP 121/74; PULSE 76; RESP 18; TEMP 36.2; O2SAT 93
--- NOTE | 2024-05-07 16:10 | RAD_ITS ---
INDICATION: Cough/wheezing EXAMINATION/TECHNIQUE: X-RAY - XR Chest 2 Views COMPARISON: 04/24/2024. FINDINGS: The lungs are clear. Tortuous and calcified thoracic aorta. The heart is mildly enlarged. No pleural effusion or pneumothorax. Degenerative changes of the thoracic spine and shoulders. RAD/Chest PA and Lateral IMPRESSION: No acute radiographic abnormalities. Electronically Signed: Aftab Richards MD at 21:21 EST ,
--- NOTE | 2024-05-07 16:12 | NURSING ---
Addendum entered by Roxann Pruitt 05/07/24 19:00: made aware that CXR completed but no results at this time. She is aware we will call with any abnormal x-ray and denies any questions at this time. 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 Dr. Ojeda made aware and NO for chest x-ray. Also, requesting patient not be on Eliquis d/t past bad experience with Eliquis in the family. Dr. Ojeda made aware and she reports she will discuss this with on 05/08.
[2024-05-07 16:30] LABS: Bedside Glucose 152 mg/dL (74-106)
[2024-05-07 20:42] VITALS: BP 145/67; PULSE 79
[2024-05-07] MEDS: Atorvastatin Calcium 40 MG Tablet PO (20:42)
[2024-05-07 20:50] VITALS: O2SAT 95
[2024-05-08] MEDS: Acetaminophen 500 MG Tablet 1000 MG PO (00:13)
[2024-05-08] MEDS: LORazepam 0.5 MG Tablet PO (02:13)
[2024-05-08 06:46] LABS: Bedside Glucose 143 mg/dL (74-106)
[2024-05-08] MEDS: Folic Acid 1 MG Tablet PO (08:49)
[2024-05-08] MEDS: Rivastigmine Tartrate 1.5 MG Capsule PO ×2 (08:49→17:29)
[2024-05-08] MEDS: Tamsulosin HCl 0.4 MG Capsule 0.8 MG PO (08:50)
[2024-05-08] MEDS: Furosemide 40 MG Tablet PO (08:50)
[2024-05-08] MEDS: Senna/Docusate Sodium 1 Tablet PO ×2 (08:50→20:54)
[2024-05-08] MEDS: APIXABAN 2.5 MG TABLET (WCH) PO ×2 (08:50→20:54)
[2024-05-08] MEDS: metFORMIN (XR) 500 MG Tablet PO ×2 (08:50→17:29)
[2024-05-08] MEDS: LINAGLIPTIN 5 MG TABLET PO (08:51)
[2024-05-08] MEDS: Cyanocobalamin 500 MCG Tablet 1000 MCG PO (08:51)
[2024-05-08] MEDS: Menthol/Lanolin/Calamine/Znox 113 GM Tube 1 APPLIC TOPICAL ×2 (08:51→20:54)
[2024-05-08] MEDS: Ergocalciferol 1.25 MG (50, 000 UNIT) Capsule PO (08:51)
[2024-05-08] MEDS: Sertraline 50 MG Tablet PO (08:51)
[2024-05-08 08:58] VITALS: BP 117/71; PULSE 80
[2024-05-08] MEDS: Metoprolol(XL)Succ 50 MG Tablet PO ×2 (08:58→20:54)
[2024-05-08 10:00] VITALS: BP 117/71; PULSE 80; RESP 17; TEMP 35.9; O2SAT 95
--- NOTE | 2024-05-08 10:28 | CASEMGMT ---
Addendum entered by Magda Whitt 05/09/24 09:51: Late entry: SW received return call from 05/08/24. apologized for call as her questions had been answered by nursing. Original Note: Social Work SW left VM with , per her request to speak with this worker. Magda Whitt, ALEN SAENZW
--- NOTE | 2024-05-08 13:32 | WOUNDNOTE ---
wound photo: right lower leg
--- NOTE | 2024-05-08 13:33 | WOUNDNOTE ---
wound photo: left lower leg
--- NOTE | 2024-05-08 13:48 | MDS.RN ---
Information for the MDS was obtained from review of the clinical record, interview of resident, staff, and direct observation of resident?s care.
[2024-05-08 16:49] LABS: Bedside Glucose 159 mg/dL (74-106)
[2024-05-08 20:54] VITALS: BP 140/80; PULSE 83
[2024-05-08] MEDS: Atorvastatin Calcium 40 MG Tablet PO (20:54)
[2024-05-09] MEDS: LORazepam 0.5 MG Tablet PO ×2 (02:04→19:48)
[2024-05-09 06:26] LABS: Bedside Glucose 139 mg/dL (74-106)
[2024-05-09 09:25] VITALS: BP 162/84; PULSE 81; RESP 18; TEMP 36
[2024-05-09] MEDS: Folic Acid 1 MG Tablet PO (09:29)
[2024-05-09] MEDS: metFORMIN (XR) 500 MG Tablet PO ×2 (09:29→19:11)
[2024-05-09] MEDS: Ferrous Gluconate 324 MG Tablet PO (09:29)
[2024-05-09] MEDS: APIXABAN 2.5 MG TABLET (WCH) PO ×2 (09:29→19:48)
[2024-05-09] MEDS: Menthol/Lanolin/Calamine/Znox 113 GM Tube 1 APPLIC TOPICAL ×2 (09:29→19:49)
[2024-05-09] MEDS: Rivastigmine Tartrate 1.5 MG Capsule PO ×2 (09:29→19:12)
[2024-05-09 09:30] VITALS: PULSE 81
[2024-05-09] MEDS: Tamsulosin HCl 0.4 MG Capsule 0.8 MG PO (09:30)
[2024-05-09] MEDS: Cyanocobalamin 500 MCG Tablet 1000 MCG PO (09:30)
[2024-05-09] MEDS: LINAGLIPTIN 5 MG TABLET PO (09:30)
[2024-05-09] MEDS: Sertraline 50 MG Tablet PO (09:30)
[2024-05-09] MEDS: Senna/Docusate Sodium 1 Tablet PO ×2 (09:30→19:48)
[2024-05-09] MEDS: Metoprolol(XL)Succ 50 MG Tablet PO ×2 (09:30→19:48)
[2024-05-09] MEDS: Furosemide 40 MG Tablet PO (09:30)
[2024-05-09 16:58] LABS: Bedside Glucose 158 mg/dL (74-106)
[2024-05-09] MEDS: Atorvastatin Calcium 40 MG Tablet PO (19:47)
[2024-05-09 19:48] VITALS: BP 135/68; PULSE 79
[2024-05-09 20:00] VITALS: RESP 16; O2SAT 96
[2024-05-10 06:23] LABS: Bedside Glucose 156 mg/dL (74-106)
[2024-05-10 08:07] VITALS: O2SAT 94
[2024-05-10] MEDS: Menthol/Lanolin/Calamine/Znox 113 GM Tube 1 APPLIC TOPICAL ×2 (08:12→21:07)
[2024-05-10] MEDS: Sertraline 50 MG Tablet PO (08:13)
[2024-05-10] MEDS: Tamsulosin HCl 0.4 MG Capsule 0.8 MG PO (08:13)
[2024-05-10] MEDS: Senna/Docusate Sodium 1 Tablet PO ×2 (08:13→21:01)
[2024-05-10 08:15] VITALS: PULSE 79
[2024-05-10] MEDS: metFORMIN (XR) 500 MG Tablet PO ×2 (08:15→17:16)
[2024-05-10] MEDS: Folic Acid 1 MG Tablet PO (08:15)
[2024-05-10] MEDS: Metoprolol(XL)Succ 50 MG Tablet PO ×2 (08:15→21:04)
[2024-05-10] MEDS: LINAGLIPTIN 5 MG TABLET PO (08:15)
[2024-05-10] MEDS: APIXABAN 2.5 MG TABLET (WCH) PO ×2 (08:15→21:00)
[2024-05-10] MEDS: Cyanocobalamin 500 MCG Tablet 1000 MCG PO (08:15)
[2024-05-10] MEDS: Rivastigmine Tartrate 1.5 MG Capsule PO ×2 (08:15→17:16)
[2024-05-10] MEDS: Furosemide 40 MG Tablet PO (08:16)
[2024-05-10 11:04] VITALS: BMI 35.3
[2024-05-10 15:23] VITALS: BP 148/75; PULSE 77; RESP 16; TEMP 37.1; O2SAT 94
[2024-05-10 17:35] LABS: Bedside Glucose 149 mg/dL (74-106)
[2024-05-10] MEDS: Atorvastatin Calcium 40 MG Tablet PO (21:01)
[2024-05-10 21:04] VITALS: BP 120/66; PULSE 68
[2024-05-11 06:43] LABS: Bedside Glucose 155 mg/dL (74-106)
[2024-05-11 07:53] VITALS: BP 128/75; PULSE 81
[2024-05-11] MEDS: APIXABAN 2.5 MG TABLET (WCH) PO ×2 (07:53→20:56)
[2024-05-11] MEDS: Rivastigmine Tartrate 1.5 MG Capsule PO ×2 (07:53→17:36)
[2024-05-11] MEDS: metFORMIN (XR) 500 MG Tablet PO ×2 (07:53→17:36)
[2024-05-11] MEDS: Tamsulosin HCl 0.4 MG Capsule 0.8 MG PO (07:53)
[2024-05-11] MEDS: Folic Acid 1 MG Tablet PO (07:53)
[2024-05-11] MEDS: Ferrous Gluconate 324 MG Tablet PO (07:53)
[2024-05-11] MEDS: Metoprolol(XL)Succ 50 MG Tablet PO ×2 (07:53→20:57)
[2024-05-11] MEDS: Cyanocobalamin 500 MCG Tablet 1000 MCG PO (07:54)
[2024-05-11] MEDS: Senna/Docusate Sodium 1 Tablet PO ×2 (07:54→20:57)
[2024-05-11] MEDS: Furosemide 40 MG Tablet PO (07:54)
[2024-05-11] MEDS: LINAGLIPTIN 5 MG TABLET PO (07:54)
[2024-05-11] MEDS: Sertraline 50 MG Tablet PO (07:54)
[2024-05-11] MEDS: Menthol/Lanolin/Calamine/Znox 113 GM Tube 1 APPLIC TOPICAL ×2 (08:02→21:03)
[2024-05-11 11:47] VITALS: BP 116/74; PULSE 72; RESP 16; TEMP 35.8; O2SAT 98
--- NOTE | 2024-05-11 15:49 | CASEMGMT ---
Social Work SW phoned , left VM, detailing [facility] insurance precert was approved with NRD 05/15. SW inquired about DC planning, home vs SNF, and offered therapy training. Will follow. ALEN BucknerW
[2024-05-11 16:49] LABS: Bedside Glucose 147 mg/dL (74-106)
[2024-05-11 20:57] VITALS: BP 146/77; PULSE 73
[2024-05-11] MEDS: Atorvastatin Calcium 40 MG Tablet PO (20:57)
[2024-05-11] MEDS: LORazepam 0.5 MG Tablet PO (23:27)
[2024-05-12] MEDS: LORazepam 0.5 MG Tablet PO ×2 (03:44→20:28)
[2024-05-12 05:58] LABS: Absolute Lymphocyte Count 1.23 X10^3/uL (0.83-4.51); Absolute Neutrophil Count 6.4 X10^3/uL (2.0-7.7); Basophil# 0.05 X10^3/uL; Basophil% 0.6 % (0-1); Eosinophil# 0.33 X10^3/uL; Eosinophils% 3.7 % (0-5); Hematocrit 32.9 % (40-54); Hemoglobin 10.7 g/dL (13.0-16.5); Lymphocyte # 1.23 X10^3/ul (0.83-4.51); Mean Corp Hgb Conc 32.5 g/dL (32-36); Mean Corpuscular Hgb 28.6 pg (27.0-32.0); Monocyte# 0.76 X10^3/uL; Monocyte% 8.6 % (0-10); NRBC Flagged by Analyzer 0 % (0-5); Neutrophil # 6.38 X10^3/uL (2.7-7.7); Neutrophil % 72.4 % (47-70); Platelet Count 208 K/mm3 (150-450); RBC Distribution Width CV 15.2 % (11.6-14.6); RBC Distribution Width SD 49.6 fl (35.1-43.9); Red Blood Count 3.74 M/mm3 (4.6-6.2); White Blood Count 8.8 K/mm3 (4.4-11.0)
[2024-05-12 06:21] LABS: Anion Gap 4 (5-15); BUN 39 mg/dL (7-18); BUN/Creat Ratio 20.6 RATIO (10-20); Calcium,Total 9.1 mg/dL (8.5-10.1); Chloride 111 mmol/L (98-107); Creatinine, Serum 1.89 mg/dL (0.70-1.30); EST Glomerular Filtration Rate 36 mL/min (>60); Est Glom Filt Rate - Afr Amer 44 mL/min (>60); Estimated Creatinine Clearance 38.65 ml/min; Glucose 167 mg/dL (74-106); Potassium 4.1 mmol/L (3.5-5.1); Sodium Level 139 mmol/L (136-145)
[2024-05-12 06:27] LABS: Bedside Glucose 139 mg/dL (74-106)
[2024-05-12 08:19] VITALS: BP 121/75; PULSE 84
[2024-05-12] MEDS: Cyanocobalamin 500 MCG Tablet 1000 MCG PO (08:19)
[2024-05-12] MEDS: metFORMIN (XR) 500 MG Tablet PO ×2 (08:19→17:29)
[2024-05-12] MEDS: Rivastigmine Tartrate 1.5 MG Capsule PO ×2 (08:19→17:29)
[2024-05-12] MEDS: Tamsulosin HCl 0.4 MG Capsule 0.8 MG PO (08:19)
[2024-05-12] MEDS: Folic Acid 1 MG Tablet PO (08:19)
[2024-05-12] MEDS: Sertraline 50 MG Tablet PO (08:19)
[2024-05-12] MEDS: Metoprolol(XL)Succ 50 MG Tablet PO ×2 (08:19→20:24)
[2024-05-12] MEDS: Furosemide 40 MG Tablet PO (08:19)
[2024-05-12] MEDS: Senna/Docusate Sodium 1 Tablet PO ×2 (08:19→20:24)
[2024-05-12 08:20] VITALS: O2SAT 93
[2024-05-12] MEDS: LINAGLIPTIN 5 MG TABLET PO (08:20)
[2024-05-12] MEDS: Menthol/Lanolin/Calamine/Znox 113 GM Tube 1 APPLIC TOPICAL ×2 (08:20→20:25)
[2024-05-12] MEDS: APIXABAN 2.5 MG TABLET (WCH) PO ×2 (08:20→20:23)
--- NOTE | 2024-05-12 10:44 | CASEMGMT ---
Social Work SW received return call from . SW educated to [facility] precert approval, NRD 05/15, and insurance process; continued stay is not guaranteed with each review date. is scheduled to attend therapy training with niece on 05/15 at 1400. to then make determination if she can care for pt at home or if he will need a SNF. expressed some concerns with being able to care for him 24/7 at home, and to manage his anger. explained pt does not respond well to telling him what to do, i.e. taking medication or following diet, though, pt does well following directions from staff. SW acknowledged and encouraged to consider pt's safety and best outcome for his and her well-being. SW discussed nonskilled HHC. admitted she has the list of resources to contact, but unsure if that is the route she would like to take. inquired about SNF placement process. SW explained and offered to provide SNF list for to review prior to therapy training. agreed and requested text link. SW sent list of SNF providers including quality and resource data via [employer] Guide link. and this worker to discuss DC decision after therapy training. SW will continue to follow. Magda Whitt, ALEN SAENZW
[2024-05-12 16:00] VITALS: BP 103/62; PULSE 82; RESP 17; TEMP 36.6; O2SAT 98
[2024-05-12 17:27] LABS: Bedside Glucose 153 mg/dL (74-106)
[2024-05-12] MEDS: Glucerna Shake 120 ML LIQUID PO (17:30)
[2024-05-12 20:24] VITALS: PULSE 79
[2024-05-12] MEDS: Atorvastatin Calcium 40 MG Tablet PO (20:24)
[2024-05-12] MEDS: Acetaminophen 500 MG Tablet 1000 MG PO (20:28)
[2024-05-13 06:35] LABS: Bedside Glucose 123 mg/dL (74-106)
[2024-05-13 10:19] VITALS: BP 117/68; PULSE 71; RESP 17; TEMP 35.7; O2SAT 96
[2024-05-13] MEDS: Glucerna Shake 120 ML LIQUID PO ×3 (10:20→17:52)
[2024-05-13] MEDS: Rivastigmine Tartrate 1.5 MG Capsule PO ×2 (10:24→17:52)
[2024-05-13 10:25] VITALS: PULSE 71
[2024-05-13] MEDS: Tamsulosin HCl 0.4 MG Capsule 0.8 MG PO (10:25)
[2024-05-13] MEDS: APIXABAN 2.5 MG TABLET (WCH) PO ×2 (10:25→19:55)
[2024-05-13] MEDS: Ferrous Gluconate 324 MG Tablet PO (10:25)
[2024-05-13] MEDS: Folic Acid 1 MG Tablet PO (10:25)
[2024-05-13] MEDS: Menthol/Lanolin/Calamine/Znox 113 GM Tube 1 APPLIC TOPICAL ×2 (10:25→20:15)
[2024-05-13] MEDS: Senna/Docusate Sodium 1 Tablet PO (10:25)
[2024-05-13] MEDS: metFORMIN (XR) 500 MG Tablet PO ×2 (10:25→17:52)
[2024-05-13] MEDS: Furosemide 40 MG Tablet PO (10:25)
[2024-05-13] MEDS: Metoprolol(XL)Succ 50 MG Tablet PO ×2 (10:25→19:58)
[2024-05-13] MEDS: Cyanocobalamin 500 MCG Tablet 1000 MCG PO (10:26)
[2024-05-13] MEDS: Sertraline 50 MG Tablet PO (10:26)
[2024-05-13] MEDS: LINAGLIPTIN 5 MG TABLET PO (10:26)
[2024-05-13 16:43] LABS: Bedside Glucose 132 mg/dL (74-106)
[2024-05-13] MEDS: LORazepam 0.5 MG Tablet PO (19:54)
[2024-05-13] MEDS: Atorvastatin Calcium 40 MG Tablet PO (19:55)
[2024-05-13 19:58] VITALS: BP 141/76; PULSE 83
[2024-05-13 20:00] VITALS: RESP 16
[2024-05-13] MEDS: Oseltamivir Phosphate 30 MG Capsule PO (22:54)
[2024-05-14] MEDS: LORazepam 0.5 MG Tablet PO ×2 (02:16→20:38)
[2024-05-14 06:08] LABS: Bedside Glucose 160 mg/dL (74-106)
[2024-05-14 09:16] VITALS: BP 102/64; PULSE 84; RESP 17; TEMP 35.9; O2SAT 95
[2024-05-14] MEDS: Glucerna Shake 120 ML LIQUID PO ×3 (09:20→16:20)
[2024-05-14] MEDS: APIXABAN 2.5 MG TABLET (WCH) PO ×2 (09:21→20:42)
[2024-05-14] MEDS: Menthol/Lanolin/Calamine/Znox 113 GM Tube 1 APPLIC TOPICAL ×2 (09:21→20:45)
[2024-05-14] MEDS: Folic Acid 1 MG Tablet PO (09:21)
[2024-05-14] MEDS: Rivastigmine Tartrate 1.5 MG Capsule PO ×2 (09:21→16:20)
[2024-05-14] MEDS: metFORMIN (XR) 500 MG Tablet PO ×2 (09:21→16:20)
[2024-05-14 09:22] VITALS: PULSE 84
[2024-05-14] MEDS: Metoprolol(XL)Succ 50 MG Tablet PO ×2 (09:22→20:41)
[2024-05-14] MEDS: Furosemide 40 MG Tablet PO (09:22)
[2024-05-14] MEDS: Tamsulosin HCl 0.4 MG Capsule 0.8 MG PO (09:22)
[2024-05-14] MEDS: Cyanocobalamin 500 MCG Tablet 1000 MCG PO (09:23)
[2024-05-14] MEDS: Sertraline 50 MG Tablet PO (09:23)
[2024-05-14] MEDS: LINAGLIPTIN 5 MG TABLET PO (09:23)
[2024-05-14 16:56] LABS: Bedside Glucose 139 mg/dL (74-106)
[2024-05-14] MEDS: Oseltamivir Phosphate 30 MG Capsule PO (20:38)
[2024-05-14 20:41] VITALS: BP 100/49; PULSE 65
[2024-05-14] MEDS: Atorvastatin Calcium 40 MG Tablet PO (20:42)
[2024-05-15 06:09] LABS: Bedside Glucose 147 mg/dL (74-106)
[2024-05-15 07:51] VITALS: BP 121/74; PULSE 77; TEMP 35.9; O2SAT 95
[2024-05-15] MEDS: metFORMIN (XR) 500 MG Tablet PO ×2 (07:57→16:19)
[2024-05-15] MEDS: Rivastigmine Tartrate 1.5 MG Capsule PO ×2 (07:57→16:19)
[2024-05-15] MEDS: Folic Acid 1 MG Tablet PO (07:57)
[2024-05-15] MEDS: Menthol/Lanolin/Calamine/Znox 113 GM Tube 1 APPLIC TOPICAL ×2 (07:57→20:23)
[2024-05-15] MEDS: Glucerna Shake 120 ML LIQUID PO ×3 (07:57→16:19)
[2024-05-15 07:58] VITALS: PULSE 77
[2024-05-15] MEDS: Metoprolol(XL)Succ 50 MG Tablet PO ×2 (07:58→20:24)
[2024-05-15] MEDS: Ferrous Gluconate 324 MG Tablet PO (07:58)
[2024-05-15] MEDS: Furosemide 40 MG Tablet PO (07:58)
[2024-05-15] MEDS: Tamsulosin HCl 0.4 MG Capsule 0.8 MG PO (07:58)
[2024-05-15] MEDS: APIXABAN 2.5 MG TABLET (WCH) PO ×2 (07:58→20:16)
[2024-05-15] MEDS: LINAGLIPTIN 5 MG TABLET PO (07:59)
[2024-05-15] MEDS: Cyanocobalamin 500 MCG Tablet 1000 MCG PO (07:59)
[2024-05-15] MEDS: Sertraline 50 MG Tablet PO (07:59)
[2024-05-15] MEDS: Ergocalciferol 1.25 MG (50, 000 UNIT) Capsule PO (07:59)
--- NOTE | 2024-05-15 15:08 | CASEMGMT ---
Social Work attended therapy training this date. [facility]IGHW[facility] [employer]INTAIN[employer]/JIMMY followed up with this worker and is wanting to take pt home at DC. therapists educated to augustina and RUBIN provided resources for . prefers using [facility] and requests a transport w/c, per therapists. SW to finalize DC plans once DC date is given. Magda Whitt BLENDER POISER
[2024-05-15 16:46] LABS: Bedside Glucose 198 mg/dL (74-106)
[2024-05-15] MEDS: Atorvastatin Calcium 40 MG Tablet PO (20:17)
[2024-05-15] MEDS: Oseltamivir Phosphate 30 MG Capsule PO (20:18)
[2024-05-15 20:24] VITALS: BP 129/75; PULSE 81
[2024-05-15] MEDS: LORazepam 0.5 MG Tablet PO (20:45)
[2024-05-16] MEDS: LORazepam 0.5 MG Tablet PO ×2 (02:25→21:03)
[2024-05-16 06:17] LABS: Bedside Glucose 137 mg/dL (74-106)
[2024-05-16 07:49] VITALS: BP 155/62; PULSE 75; RESP 16; TEMP 35.9; O2SAT 97
[2024-05-16] MEDS: Cyanocobalamin 500 MCG Tablet 1000 MCG PO (07:51)
[2024-05-16] MEDS: Tamsulosin HCl 0.4 MG Capsule 0.8 MG PO (07:51)
[2024-05-16] MEDS: Glucerna Shake 120 ML LIQUID PO ×3 (07:51→17:37)
[2024-05-16 07:52] VITALS: PULSE 75
[2024-05-16] MEDS: Metoprolol(XL)Succ 50 MG Tablet PO ×2 (07:52→21:05)
[2024-05-16] MEDS: Folic Acid 1 MG Tablet PO (07:52)
[2024-05-16] MEDS: APIXABAN 2.5 MG TABLET (WCH) PO ×2 (07:52→21:03)
[2024-05-16] MEDS: metFORMIN (XR) 500 MG Tablet PO ×2 (07:52→17:37)
[2024-05-16] MEDS: Sertraline 50 MG Tablet PO (07:53)
[2024-05-16] MEDS: Rivastigmine Tartrate 1.5 MG Capsule PO ×2 (07:53→17:37)
[2024-05-16] MEDS: LINAGLIPTIN 5 MG TABLET PO (07:53)
[2024-05-16] MEDS: Furosemide 40 MG Tablet PO (07:53)
[2024-05-16] MEDS: Menthol/Lanolin/Calamine/Znox 113 GM Tube 1 APPLIC TOPICAL ×2 (07:57→21:06)
[2024-05-16 11:00] VITALS: BMI 35.4
--- NOTE | 2024-05-16 13:21 | WOUNDNOTE ---
wound photo: right lower leg
--- NOTE | 2024-05-16 14:17 | CASEMGMT ---
Social Work Insurance issued LCD 05/18, DC 05/19 SW phoned to notify of DC date. agreeable to taking pt home. Confirmed previously discussed services with [facility]. Clarified the difference between skilled and nonskilled HHC. to transport at [place]. RUBIN phoned referral to [facility]. Sent referral to [facility] via [employer] for 21 inch transport w/c Plan: DC home with 05/19, [facility] PT/OT/ST/SN/ALLRED/SW, transport w/c Magda Whitt MSW [employer]
--- NOTE | 2024-05-16 17:36 | DS.PCM_ITS ---
Providers Date of Admission: 04/27/24 Primary Care Physician: Dr. Lalo Hwang MD Consultations 04/27/24 18:13 Consult: Onc/Wound/automatic clipper and stripper Routine Comment: Reason for Consult:: Ulcers to leg. Diabetic. Reason For Visit: DELIRIUM, AFIB RVR Diagnosis Discharge Diagnosis (1) Debility: Status: Acute Code(s): R53.81 - Other malaise (2) Altered mental status: Status: Resolved Code(s): R41.82 - Altered mental status, unspecified (3) Multiple falls: Status: Acute Code(s): R29.6 - Repeated falls (4) Visual hallucinations: Status: Acute Code(s): R44.1 - Visual hallucinations (5) KOFI (acute kidney injury): Status: Ruled-out Code(s): N17.9 - Acute kidney failure, unspecified (6) New onset atrial fibrillation: Status: Acute Code(s): I48.91 - Unspecified atrial fibrillation (7) Parkinson disease: Status: Acute Code(s): G20.A1 - Parkinson's disease without dyskinesia, without mention of fluctuations (8) Parkinson's disease dementia: Status: Acute Code(s): G20.A1 - Parkinson's disease without dyskinesia, without mention of fluctuations; F02.80 - Dementia in other diseases classified elsewhere, unspecified severity, without behavioral disturbance, psychotic disturbance, mood disturbance, and anxiety (9) Coronary artery disease: Status: Acute Code(s): I25.10 - Atherosclerotic heart disease of [place] coronary artery without angina pectoris (10) HFrEF (heart failure with reduced ejection fraction): Status: Acute Code(s): I50.20 - Unspecified systolic (congestive) heart failure (11) HLD (hyperlipidemia): Status: Chronic Code(s): E78.5 - Hyperlipidemia, unspecified Qualifiers: Hyperlipidemia type: pure hypercholesterolemia Qualified Code(s): E 78.00 - Pure hypercholesterolemia, unspecified (12) Anemia: Status: Acute Code(s): D64.9 - Anemia, unspecified (13) Diabetes mellitus: Status: Acute Code(s): E11.9 - Type 2 diabetes mellitus without complications (14) Essential (primary) hypertension: Status: Acute Code(s): I10 - Essential (primary) hypertension (15) Depression: Status: Acute Code(s): F32.A - Depression, unspecified (16) Iron deficiency anemia: Status: Acute Code(s): D50.9 - Iron deficiency anemia, unspecified (17) B12 deficiency: Status: Acute Code(s): E53.8 - Deficiency of other specified B group vitamins (18) BPH (benign prostatic hyperplasia): Status: Acute Code(s): N40.0 - Benign prostatic hyperplasia without lower urinary tract symptoms Plan 83 year old male with below past medical history hospitalized for change in mental status, acute kidney injury, visual hallucinations, multiple falls, complicated by new onset atrial fibrillation with rapid ventricular response, admitted to TCU with debility, here for rehabilitation, strengthening, prior to discharge home with . * Debility - PT/OT. * Dysphagia - ST. * Cognition - ST. * Pain - Tylenol 1000mg q6 prn pain (1-10). * Bowel - senna/colace 1 tablet bid, Magnesium citrate 300mL daily prn. * Adult immunization - Administer pneumonia vaccine, covid vaccine, flu vaccine as appropriate. * DVT prophylaxis - on Eliquis. * Atrial fibrillation - Metoprolol 50mg bid, Eliquis 2.5mg bid. * Hyperlipidemia - Atorvastatin 40mg qhs. * B12 deficiency - B12 1000mcg daily. * Vitamin D deficiency - D 1.25mg per week. * Iron deficiency anemia - Ferrous gluconate 325mg q48. * Folate deficiency - Foic acid 1mg daily. * HFrEF - Metoprolol 50mg bid, Furosemide 40mg daily * Diabetes Mellitus II - Metformin 500mg bidcm, Tradjenta 5mg daily. * Skin irritation - Calmoseptine topical bid. * Depression - Sertraline 50mg daily, stable chronic prison use, GDR not recommended. * BPH - Tamsulosin 0.8mg daily. Medications at Discharge Home Medications folic acid 1 mg tablet 1 mg PO DAILY [facility] [place] 11/11/21 atorvastatin 40 mg tablet 40 mg PO DAILY cholesterol 02/20/22 cholecalciferol (vitamin D3) 1,250 mcg (50,000 unit) capsule 50,000 unit PO QWEEK [facility] [place] 02/20/22 sertraline 50 mg tablet 50 mg PO DAILY Depression 02/20/22 mecobalamin (vitamin B12) 1,000 mcg chewable tablet 1,000 mcg PO DAILY [facility] [place] 11/16/23 metformin 500 mg tablet,extended release 24 hr 500 mg PO BID DM 11/16/23 sitagliptin phosphate 50 mg tablet (Januvia) 50 mg PO QDAY Diabetes 11/16/23 furosemide 40 mg tablet See Rx Instructions .Route .COMPLEX water pill #90 tabs 04/19/24 tamsulosin 0.4 mg capsule (Flomax) 0.8 mg PO DAILY bladder 04/24/24 ferrous gluconate 324 mg (37.5 mg iron) tablet 325 mg (1.0031 x 324 mg (37.5 mg iron)) PO QODAY [facility] [place] 30 days #15 tabs 04/27/24 apixaban 5 mg tablet (Eliquis) 2.5 mg (1/2 x 5 mg) PO BID 30 days #30 tabs 05/16/24 lorazepam 0.5 mg tablet 0.5 mg PO Q4H PRN PRN aggitation & restlessness 30 days #100 tabs 05/16/24 metoprolol succinate 50 mg tablet,extended release 24 hr 50 mg PO BID 30 days #60 tabs 05/16/24 rivastigmine tartrate 1.5 mg capsule 1.5 mg PO BIDCM 30 days #60 caps 05/16/24 Hospital Course Operations None Procedures None Summary of Care Provided Minutes Spent on Discharge: 35 Hospital Course: 83 year old male with below past medical history hospitalized for change in mental status, acute kidney injury, visual hallucinations, multiple falls, complicated by new onset atrial fibrillation with rapid ventricular response, admitted to TCU with debility, here for rehabilitation, strengthening, prior to discharge home with . Discharge home with 05/19/2024, [facility] PT/OT/ST/SN/ALLRED/SW, transport wheelchair. Wheelchair: Patient has mobility limitation that cannot be sufficiently resolved by using a cane or walker. Use of a w/c will improve the participating of ADLs on a regular basis in the home. Patient can independently self-propel. Physical Exam Const alert General Appearance: cooperative HEENT normocephalic Eyes PERRL and EOMs intact bilaterally Neck supple, no JVD and no carotid bruits Resp normal respiratory effort, normal air movement and clear to auscultation bilaterally Cardio regular rate and regular rhythm GI normal to inspection, nondistended, normoactive bowel sounds, non-tender and non-distended Extremity normal capillary refill General Extremity: Negative for edema Skin no rashes or lesions noted General Skin Exam: no breakdown Psych affect normal Appearance: appropriate Weight / BMI Weight Weight: 118.614 kg Body Mass Index (BMI) 35.4 ABG / Lab / Microbiology Data 05/12/24 05:39 05/12/24 05:39 Laboratory: Laboratory Results - last 24 hr 05/16/24 05:49: POC Glucose 137 H 05/16/24 17:01: POC Glucose 126 H Microbiology: Microbiology 05/01/24 10:23 Nasal Secretion SARS-CoV-2 Antigen (Rapid) - Final D/C Instructions Discharge Diet: No restrictions Discharge Activity: Return to Normal Activity, May Shower and Use Walker Weight Bearing Status: Weight bearing as tolerated Call your doctor if you observe: Fever of 101 or Higher, Inability to urinate, Inability to have a bowel movement, Using more than 1 pad per hour, Shortness of breath, Dizziness, Swelling in the ankles, Chest pain and Uncontrolled pain DC O2, CPAP, BIPAP Needs Home O2 Discharge instructions: No Additional Instructions: Discharge home with 05/19/2024, [facility] PT/OT/ST/SN/ALLRED/SW, transport wheelchair. Wheelchair: Patient has mobility limitation that cannot be sufficiently resolved by using a cane or walker. Use of a w/c will improve the participating of ADLs on a regular basis in the home. Patient can independently self-propel. Meaningful Use Info Meaningful Use Meaningful Use Diagnoses (Choose all that apply): None applicable Ischemic Stroke Statin Dosing Therapy Reference: STATIN DOSE THERAPY REFERENCE: * Patients > 75 years receive moderate or high dose statin therapy. * Patients 75 years or YOUNGER should receive HIGH intensity statin dose unless contraindicated. You will be required to document reason for non-treatment if statin daily dose does not meet guidelines. HIGH DOSE STATIN THERAPY DAILY Atorvastatin > than or = to 40 mg Rosuvastatin > than or = to 20 mg Amlodipine + Atorvastatin > than or = to 2.5/40 mg Ezetimibe + Simvastatin 10/80 mg Simvastatin 80mg Discharge Plan Admission Admit Date/Time: 04/27/24 17:25 Primary Reason for Your Visit: Debility. Attending Provider: Bertrand Romano Chi Primary Care Provider: Lalo Hwang Instructions Additional Instructions / Restrictions: Discharge home with 05/19/2024, [facility] PT/OT/ST/SN/ALLRED/SW, transport wheelchair. Wheelchair: Patient has mobility limitation that cannot be sufficiently resolved by using a cane or walker. Use of a w/c will improve the participating of ADLs on a regular basis in the home. Patient can independently self-propel. Discharge Orders/Prescriptions Prescriptions: New rivastigmine tartrate 1.5 mg Capsule 1.5 mg PO BIDCM 30 Days Qty: 60 0RF metoprolol succinate 50 mg Tablet Extended Release 24 Hr 50 mg PO BID 30 Days Qty: 60 0RF lorazepam 0.5 mg Tablet 0.5 mg PO Q4H PRN PRN (Reason: aggitation & restlessness) 30 Days Qty: 100 0RF Eliquis 5 mg Tablet 2.5 mg PO BID 30 Days Qty: 30 0RF Continued atorvastatin 40 mg tablet 40 mg PO DAILY cholecalciferol (vitamin D3) 1,250 mcg (50,000 unit) capsule 50,000 unit PO QWEEK Patient Comments: TAKE ONE CAPSULE BY MOUTH ONCE EVERY WEEK sertraline 50 mg tablet 50 mg PO DAILY Januvia 50 mg tablet 50 mg PO QDAY metformin 500 mg tablet extended release 24 hr 500 mg PO BID Rx Instructions: resume 01/27/2020 mecobalamin (vitamin B12) 1,000 mcg tablet,chewable 1,000 mcg PO DAILY folic acid 1 mg Tablet 1 mg PO DAILY tamsulosin [Flomax] 0.4 mg capsule 0.8 mg PO DAILY ferrous gluconate 324 mg (37.5 mg iron) Tablet 325 mg PO QODAY 30 Days Qty: 15 0RF furosemide 40 mg tablet See Rx Instructions .ROUTE .COMPLEX Qty: 90 3RF Dose Instruction: TAKE ONE TABLET BY MOUTH DAILY Rx Instructions: TAKE ONE TABLET BY MOUTH DAILY Discontinued saw palmetto 1 cap PO DAILY aspirin 81 MG tablet 81 mg PO DAILY@2000 metoprolol tartrate 50 MG tablet 50 mg PO BID Qty: 60 0RF Eliquis 5 mg Tablet 2.5 mg PO BID 30 Days Qty: 30 0RF Referrals / Follow Up: Lalo Hwang MD [Primary Care Provider] - Disposition Disposition (needs filled in before D/C Order can be placed): Home Health Service
[2024-05-16 17:39] LABS: Bedside Glucose 126 mg/dL (74-106)
[2024-05-16] MEDS: Atorvastatin Calcium 40 MG Tablet PO (21:03)
[2024-05-16 21:05] VITALS: BP 120/74; PULSE 84
[2024-05-16] MEDS: Oseltamivir Phosphate 30 MG Capsule PO (21:05)
[2024-05-16 21:08] VITALS: BP 120/74; PULSE 84
[2024-05-17 06:15] LABS: Bedside Glucose 143 mg/dL (74-106)
[2024-05-17] MEDS: Rivastigmine Tartrate 1.5 MG Capsule PO ×2 (08:59→17:48)
[2024-05-17] MEDS: LINAGLIPTIN 5 MG TABLET PO (08:59)
[2024-05-17] MEDS: metFORMIN (XR) 500 MG Tablet PO ×2 (08:59→17:48)
[2024-05-17] MEDS: APIXABAN 2.5 MG TABLET (WCH) PO ×2 (08:59→20:48)
[2024-05-17] MEDS: Cyanocobalamin 500 MCG Tablet 1000 MCG PO (08:59)
[2024-05-17] MEDS: Tamsulosin HCl 0.4 MG Capsule 0.8 MG PO (08:59)
[2024-05-17] MEDS: Folic Acid 1 MG Tablet PO (08:59)
[2024-05-17] MEDS: Sertraline 50 MG Tablet PO (08:59)
[2024-05-17] MEDS: Ferrous Gluconate 324 MG Tablet PO (08:59)
[2024-05-17 09:00] VITALS: BP 114/81; PULSE 82; RESP 16; TEMP 36; O2SAT 97
[2024-05-17] MEDS: Furosemide 40 MG Tablet PO (09:00)
[2024-05-17] MEDS: Menthol/Lanolin/Calamine/Znox 113 GM Tube 1 APPLIC TOPICAL ×2 (09:00→20:47)
[2024-05-17 09:03] VITALS: BP 114/81; PULSE 82
[2024-05-17] MEDS: Metoprolol(XL)Succ 50 MG Tablet PO ×2 (09:03→20:49)
[2024-05-17] MEDS: Glucerna Shake 120 ML LIQUID PO ×3 (09:03→17:48)
--- NOTE | 2024-05-17 12:05 | NURSING ---
pt picking at skin on hand and reopened an old skin tear. Wound cleansed and Mepilex applied. Educated pt on the importance of not picking at scabs.
[2024-05-17 17:08] LABS: Bedside Glucose 191 mg/dL (74-106)
[2024-05-17 20:00] VITALS: PULSE 88; O2SAT 97
[2024-05-17 20:46] VITALS: BP 128/77; PULSE 83; O2SAT 97
[2024-05-17] MEDS: Atorvastatin Calcium 40 MG Tablet PO (20:48)
[2024-05-17] MEDS: Senna/Docusate Sodium 1 Tablet PO (20:48)
[2024-05-17 20:49] VITALS: BP 128/77; PULSE 83
[2024-05-17] MEDS: Oseltamivir Phosphate 30 MG Capsule PO (20:49)
[2024-05-18] MEDS: LORazepam 0.5 MG Tablet PO ×2 (01:08→22:35)
[2024-05-18 07:02] LABS: Bedside Glucose 180 mg/dL (74-106)
[2024-05-18] MEDS: metFORMIN (XR) 500 MG Tablet PO ×2 (08:20→18:39)
[2024-05-18] MEDS: APIXABAN 2.5 MG TABLET (WCH) PO ×2 (08:21→22:36)
[2024-05-18] MEDS: Furosemide 40 MG Tablet PO (08:21)
[2024-05-18] MEDS: Tamsulosin HCl 0.4 MG Capsule 0.8 MG PO (08:21)
[2024-05-18] MEDS: Rivastigmine Tartrate 1.5 MG Capsule PO ×2 (08:21→18:39)
[2024-05-18] MEDS: Folic Acid 1 MG Tablet PO (08:21)
[2024-05-18] MEDS: LINAGLIPTIN 5 MG TABLET PO (08:22)
[2024-05-18] MEDS: Sertraline 50 MG Tablet PO (08:22)
[2024-05-18] MEDS: Cyanocobalamin 500 MCG Tablet 1000 MCG PO (08:22)
[2024-05-18] MEDS: Glucerna Shake 120 ML LIQUID PO ×2 (08:24→18:38)
[2024-05-18 08:27] VITALS: BP 114/65; PULSE 83
[2024-05-18] MEDS: Senna/Docusate Sodium 1 Tablet PO ×2 (08:27→22:36)
[2024-05-18] MEDS: Metoprolol(XL)Succ 50 MG Tablet PO ×2 (08:27→22:36)
[2024-05-18] MEDS: Menthol/Lanolin/Calamine/Znox 113 GM Tube 1 APPLIC TOPICAL ×2 (08:32→22:36)
--- NOTE | 2024-05-18 09:06 | MDS.RN ---
Pain assessment for MDS complete.
--- NOTE | 2024-05-18 10:52 | CASEMGMT ---
Social Work SW completed BIMS (12/22) and PHQ-2 () for MDS assessment. Magda Whitt, SURGICAL TRAINING SPECIALIST HEAD INSULATION BOARD SAW OPERATOR
[2024-05-18 12:02] VITALS: BP 100/63; PULSE 78; RESP 18; TEMP 36.1; O2SAT 97
[2024-05-18 16:34] LABS: Bedside Glucose 149 mg/dL (74-106)
[2024-05-18 20:00] VITALS: PULSE 77; O2SAT 98
[2024-05-18] MEDS: Atorvastatin Calcium 40 MG Tablet PO (22:35)
[2024-05-18] MEDS: Oseltamivir Phosphate 30 MG Capsule PO (22:35)
[2024-05-18 22:36] VITALS: BP 135/72; PULSE 81
[2024-05-19] MEDS: LORazepam 0.5 MG Tablet PO (02:46)
[2024-05-19 03:10] LABS: Bedside Glucose 165 mg/dL (74-106)
[2024-05-19 06:00] LABS: Absolute Lymphocyte Count 1.38 X10^3/uL (0.83-4.51); Absolute Neutrophil Count 8.7 X10^3/uL (2.0-7.7); Basophil# 0.05 X10^3/uL; Basophil% 0.4 % (0-1); Eosinophil# 0.27 X10^3/uL; Eosinophils% 2.4 % (0-5); Hematocrit 32.7 % (40-54); Hemoglobin 10.5 g/dL (13.0-16.5); Lymphocyte # 1.38 X10^3/ul (0.83-4.51); Lymphocyte % 12.3 % (19-41); Mean Corp Hgb Conc 32.1 g/dL (32-36); Mean Corpuscular Hgb 28.5 pg (27.0-32.0); Mean Corpuscular Volume 88.6 fL (80-94); Mean Platelet Vol. 10.8 fl (6.2-12.0); Monocyte# 0.71 X10^3/uL; Monocyte% 6.3 % (0-10); NRBC Flagged by Analyzer 0 % (0-5); Neutrophil # 8.69 X10^3/uL (2.7-7.7); Neutrophil % 77.8 % (47-70); Platelet Count 186 K/mm3 (150-450); RBC Distribution Width CV 15.3 % (11.6-14.6); RBC Distribution Width SD 49.5 fl (35.1-43.9); Red Blood Count 3.69 M/mm3 (4.6-6.2); White Blood Count 11.2 K/mm3 (4.4-11.0)
[2024-05-19 06:21] LABS: Bedside Glucose 167 mg/dL (74-106)
[2024-05-19 06:34] LABS: Anion Gap 6 (5-15); BUN 44 mg/dL (7-18); BUN/Creat Ratio 19.9 RATIO (10-20); Chloride 114 mmol/L (98-107); Creatinine, Serum 2.21 mg/dL (0.70-1.30); EST Glomerular Filtration Rate 30 mL/min (>60); Est Glom Filt Rate - Afr Amer 37 mL/min (>60); Estimated Creatinine Clearance 33.08 ml/min; Glucose 186 mg/dL (74-106); Potassium 4.6 mmol/L (3.5-5.1); Sodium Level 141 mmol/L (136-145)
[2024-05-19 06:55] VITALS: PULSE 72; O2SAT 95
[2024-05-19] MEDS: Glucerna Shake 120 ML LIQUID PO (08:04)
[2024-05-19] MEDS: metFORMIN (XR) 500 MG Tablet PO (08:05)
[2024-05-19] MEDS: Rivastigmine Tartrate 1.5 MG Capsule PO (08:06)
[2024-05-19] MEDS: Menthol/Lanolin/Calamine/Znox 113 GM Tube 1 APPLIC TOPICAL (08:06)
[2024-05-19] MEDS: Folic Acid 1 MG Tablet PO (08:06)
[2024-05-19] MEDS: Ferrous Gluconate 324 MG Tablet PO (08:07)
[2024-05-19] MEDS: APIXABAN 2.5 MG TABLET (WCH) PO (08:07)
[2024-05-19] MEDS: Tamsulosin HCl 0.4 MG Capsule 0.8 MG PO (08:08)
[2024-05-19] MEDS: Furosemide 40 MG Tablet PO (08:10)
[2024-05-19] MEDS: Senna/Docusate Sodium 1 Tablet PO (08:10)
[2024-05-19 08:11] VITALS: BP 125/82; PULSE 78
[2024-05-19] MEDS: LINAGLIPTIN 5 MG TABLET PO (08:11)
[2024-05-19] MEDS: Cyanocobalamin 500 MCG Tablet 1000 MCG PO (08:11)
[2024-05-19] MEDS: Sertraline 50 MG Tablet PO (08:11)
[2024-05-19] MEDS: Metoprolol(XL)Succ 50 MG Tablet PO (08:11)
[2024-05-19 12:31] VITALS: BP 113/74; PULSE 84; RESP 16; TEMP 36.6; O2SAT 96
== END 2024-05-19 12:30 | disposition home health service (06) | DRG 57 ==
PROVIDERS: Internal Medicine; Admitting Provider Family Medicine Geriatric Medicine; PCP Family Medicine; Visit Provider Family Medicine Geriatric Medicine
DX: G20.A1 Parkinson's disease without dyskinesia, without mention of fluctuations (principal); L97.809 Non-pressure chronic ulcer of other part of unspecified lower leg with unspecified severity; I42.8 Other cardiomyopathies; N17.9 Acute kidney failure, unspecified; I50.22 Chronic systolic (congestive) heart failure; I13.0 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 1 through stage 4 chronic kidney disease, or unspecified chronic kidney disease; E11.22 Type 2 diabetes mellitus with diabetic chronic kidney disease; D50.9 Iron deficiency anemia, unspecified; F02.80 Dementia in other diseases classified elsewhere, unspecified severity, without behavioral disturbance, psychotic disturbance, mood disturbance, and anxiety; N18.9 Chronic kidney disease, unspecified; F32.A Depression, unspecified; Z95.3 Presence of xenogenic heart valve; I48.91 Unspecified atrial fibrillation; E11.622 Type 2 diabetes mellitus with other skin ulcer; E55.9 Vitamin D deficiency, unspecified; I25.10 Atherosclerotic heart disease of native coronary artery without angina pectoris; E78.00 Pure hypercholesterolemia, unspecified; E53.8 Deficiency of other specified B group vitamins; F41.9 Anxiety disorder, unspecified; Z79.82 Long term (current) use of aspirin; Z79.84 Long term (current) use of oral hypoglycemic drugs; Z87.891 Personal history of nicotine dependence; N40.0 Benign prostatic hyperplasia without lower urinary tract symptoms; Z79.899 Other long term (current) drug therapy; R29.6 Repeated falls; Z85.72 Personal history of non-Hodgkin lymphomas
CPT/HCPCS: 36415; 71046; 80048; 80061; 81001; 82306; 82607; 82962; 85025; 87811; 92526; 92610; 97110; 97116; 97162; 97166; 97530; 97535; 97802

== ENCOUNTER → 2024-06-09 | Outpatient (CLI) | payer OTHER, SELFPAY ==
[2024-06-09 18:35] LABS: Color, Urine Yellow (Yellow); Glucose, Dipstick Normal (Normal); Ketone-Dipstick Negative (Negative); Leukocyte Esterase-Dipstick Negative /ul (Negative); Nitrite-Dipstick Negative (Negative); Occult Blood-Urine Negative /ul (Negative); Protein-Dipstick 15 mg/dl (Negative); Urine Bilirubin Dipstick Negative (Negative); Urine Clarity Clear (Clear); Urine Urobilinogen Normal (Normal)
== END | disposition home or self-care (01) ==
LOC: LABSPEC 12:42
PROVIDERS: PCP Family Medicine; Referring Provider Family Medicine; Visit Provider Family Medicine
DX: I48.91 Unspecified atrial fibrillation (principal); L97.811 Non-pressure chronic ulcer of other part of right lower leg limited to breakdown of skin; G20.A1 Parkinson's disease without dyskinesia, without mention of fluctuations; F02.80 Dementia in other diseases classified elsewhere, unspecified severity, without behavioral disturbance, psychotic disturbance, mood disturbance, and anxiety
CPT/HCPCS: 81002; 87086; 87088

== ENCOUNTER → 2024-08-25 | Outpatient (CLI) | payer MEDICARE, SELFPAY ==
[2024-08-25 14:20] LABS: PTHIN 71 pg/mL (11-61)
[2024-08-25 14:22] LABS: Albumin, Serum 3.3 g/dL (3.4-4.8); Anion Gap 11 (5-15); BUN 31 mg/dL (4-19); BUN/Creat Ratio 15.9 RATIO (10-20); Calcium,Total 8.6 mg/dL (7.6-11.0); Carbon Dioxide 22.7 mmol/L (21.0-32.0); Chloride 103 mmol/L (98-108); Creatinine, Serum 1.96 mg/dL (0.70-1.20); EST Glomerular Filtration Rate 33 (>60); Glucose 224 mg/dL (70-99); Phosphorus 3.5 mg/dL (2.7-4.5); Potassium 4.4 mmol/L (3.3-5.1); Sodium Level 137 mmol/L (133-145)
== END | disposition home or self-care (01) ==
LOC: LAB 13:04
PROVIDERS: PCP Family Medicine; Referring Provider Internal Medicine Nephrology; Visit Provider Internal Medicine Nephrology
DX: N18.32 Chronic kidney disease, stage 3b (principal)
CPT/HCPCS: 36415; 80069; 83970

== ENCOUNTER → 2024-08-31 | Outpatient (CLI) | payer MEDICARE, SELFPAY ==
[2024-08-31 12:07] LABS: Bacteria 0 SEEN /hpf (None Seen); Mucous, Urine 0 SEEN /hpf (<or=2+); Red Blood Cells-Urine 0 SEEN /hpf (0-5); Squamous Epithelial Cells - UA 0 SEEN /hpf (0-5)
[2024-08-31 12:13] LABS: Color, Urine Yellow (Yellow); Glucose, Dipstick Normal (Normal); Ketone-Dipstick Negative (Negative); Leukocyte Esterase-Dipstick 25 /ul (Negative); Nitrite-Dipstick Negative (Negative); Occult Blood-Urine Negative /ul (Negative); Protein-Dipstick 100 mg/dl (Negative); Specific Gravity, Urine 1.015 (1.002-1.030); Urine Bilirubin Dipstick Negative (Negative); Urine Clarity Clear (Clear); Urine Urobilinogen Normal (Normal)
[2024-08-31 12:18] LABS: White Blood Cells 0-5 SEEN /hpf (0-5)
== END | disposition home or self-care (01) ==
LOC: PSN 11:02 → LAB 11:05 → PSN 11:06
PROVIDERS: PCP Family Medicine; Referring Provider Physician Assistant Medical; Visit Provider Physician Assistant Medical
DX: I48.0 Paroxysmal atrial fibrillation (principal); R30.0 Dysuria
CPT/HCPCS: 36415; 81001; 87086; 93225; 93226

== ENCOUNTER 2024-09-03 10:43 | Emergency (ER) | payer MEDICARE, SELFPAY ==
[2024-09-03] VITALS (8 sets, daily range): BP systolic 153–184; BP diastolic 70–82; PULSE 53–60; RESP 14–18; TEMP 36.4–37; O2SAT 94–98; BMI 38.8
--- NOTE | 2024-09-03 11:02 | EKG12_ITS ---
Test Reason : POST CP Blood Pressure : */* mmHG Vent. Rate : 58 BPM Atrial Rate : 58 BPM P-R Int : 198 ms QRS Dur : 156 ms QT Int : 498 ms P-R-T Axes : 55 -17 139 degrees QTcB Int : 488 ms Sinus bradycardia with Premature ventricular complexes or Fusion complexes Left bundle branch block Abnormal ECG Confirmed by SABI VILLANUEVA, SERGIO ([id number]), editor trade journal CHRISTEN BEAR ([id number]) on 09/06/2024 11:53:37 AM Referred By: YELITZA/RICHARD Confirmed By: SERGIO CELESTIN MD
--- NOTE | 2024-09-03 11:05 | RAD_ITS ---
PROCEDURE: CHEST 1 VIEW (PORTABLE) 09/03/2024 REASON FOR EXAM: CHEST PAIN TECHNIQUE: Frontal view of the chest. COMPARISON: None FINDINGS: Hardware: None Heart: Heart size is moderately enlarged. Lungs: No focal consolidation. No pneumothorax. No pleural effusion. Bones: The bones are unremarkable. Other: RAD/Chest 1 View (Portable) IMPRESSION: No Acute Findings. Moderate cardiomegaly. Reading Location: [facility]
--- NOTE | 2024-09-03 11:10 | ED.VIS.CHEST ---
HPI History of Present Illness Chief Complaint: Chest Pain Informant: patient, spouse/S.O. and friend Narrative Narrative: Presents by EMS from home sudden onset pain chest back with left arm numbness 9:30 AM sitting watching TV. States he felt a jolt of symptoms left arm numbness persisted however currently resolving. Reported MO in 2019 with cath report however no surgical intervention. He is on Eliquis for paroxysmal A-fib. History of heart failure improving leg swelling no cough no dyspnea. Followed by cardiology Dr. Herndon. Denies fever chills or sweats. 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) Chronic kidney disease (CKD) Non-ischemic cardiomyopathy History of non-ST elevation myocardial infarction (NSTEMI) (01/22/20) Chronic systolic (congestive) heart failure CHF (congestive heart failure), NYHA class III Atherosclerotic heart disease of [place]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 Mild chronic anemia Nonrheumatic aortic (valve) stenosis Non-Hodgkin lymphoma Obesity Splenic artery aneurysm Type 2 diabetes mellitus Kidney stones HLD (hyperlipidemia) Home Medications ?Medication ?Instructions ?Recorded ?Last Taken ?Type folic acid 1 mg tablet 1 mg PO DAILY [facility] 11/11/21 09/02/24 History atorvastatin 40 mg tablet 40 mg PO QHS cholesterol 02/20/22 09/02/24 History sertraline 50 mg tablet 50 mg PO DAILY Depression 02/20/22 09/02/24 History mecobalamin (vitamin B12) 1,000 1,000 mcg PO DAILY health 11/16/23 09/02/24 History mcg chewable tablet nceduardo metformin 500 mg tablet,extended 500 mg PO BID DM 11/16/23 09/02/24 History release 24 hr sitagliptin phosphate 50 mg tablet 50 mg PO DAILY Diabetes 11/16/23 09/02/24 History (Januvia) tamsulosin 0.4 mg capsule (Flomax) 0.8 mg PO QHS bladder 04/24/24 09/02/24 History apixaban 5 mg tablet (Eliquis) 2.5 mg (1/2 x 5 mg) PO BID 30 days 05/16/24 09/02/24 Rx #30 tabs metoprolol succinate 50 mg 50 mg PO BID 30 days #60 tabs 05/16/24 09/02/24 Rx tablet,extended release 24 hr rivastigmine tartrate 1.5 mg 1.5 mg PO BIDCM 30 days #60 caps 05/16/24 09/02/24 Rx capsule gabapentin 300 mg capsule 300 mg PO BID 08/09/24 09/02/24 History ferrous gluconate 324 mg (37.5 mg 325 mg PO DAILY [facility] 09/03/24 09/02/24 History iron) tablet furosemide 40 mg tablet 40 mg PO DAILY water pill 09/03/24 09/02/24 History lorazepam 0.5 mg tablet 0.5 mg PO Q4H PRN aggitation & 09/03/24 Unknown History restlessness Allergy/AdvReac Type Severity Reaction Status Date / Time No Known Allergies Allergy Verified 09/03/24 10:55 Family History Mother Heart disease Father Heart disease Brother Heart disease Surgical History History of left heart catheterization (08/14/20) Hx of cataract surgery Hx of cholecystectomy Social History household members: spouse Smoking Status: Former smoker how long ago did patient quit smokin alcohol intake: never substance use type: does not use caffeine: Yes Type: coffee Number of servings: 2 ROS ROS ED Constitutional Constitutional ED: Denies chills, fever(s) or sweats ENT ENT ED: Denies sore throat Cardiovascular Cardiovascular: Reports chest pain; Denies leg edema, palpitations or racing heartbeat Respiratory/Chest Respiratory/Chest: Denies cough, dyspnea or dyspnea on exertion Gastrointestinal Gastrointestinal: Denies abdominal pain, diarrhea, nausea or vomiting Genitourinary Genitourinary ED: Denies dysuria, hematuria or urinary frequency Musculoskeletal Musculoskeletal: Denies back pain, extremity pain or neck pain Integumentary Denies rash or wounds Neurologic Neurologic: Denies headache(s), paresthesias or weakness EXAM Physical Exam Const Vital Signs: 09/03/24 10:44 09/03/24 10:53 09/03/24 10:53 Temperature 98.6 F Temperature Source Oral Pulse Rate 60 57 L Respiratory Rate 14 16 Respiratory Effort Normal Blood Pressure 172/76 H Blood Pressure Mean 108 Pulse Ox 94 96 Oxygen Delivery Method Room Air Room Air 09/03/24 11:02 09/03/24 11:43 09/03/24 12:00 Temperature Temperature Source Pulse Rate 53 L 56 L Respiratory Rate 17 18 Respiratory Effort Blood Pressure 153/78 H 157/78 H Blood Pressure Mean 103 104 Pulse Ox 95 96 98 Oxygen Delivery Method Room Air 09/03/24 13:00 09/03/24 14:00 09/03/24 14:32 Temperature 97.6 F L Temperature Source Pulse Rate 53 L 60 60 Respiratory Rate 18 18 18 Respiratory Effort Blood Pressure 177/70 H 184/82 H 184/82 H Blood Pressure Mean 105 116 116 Pulse Ox 98 98 98 Oxygen Delivery Method Positive well nourished and well developed Constitutional Narrative: Nontoxic. General Appearance ED: well developed and NAD HEENT Reports moist mucous membranes normocephalic and atraumatic Eyes General Eye ED: Yes normal appearance of both eyes Neck full ROM Chest Wall Chest: Negative for tenderness Resp normal respiratory effort and normal air movement Effort and Inspection: symmetric chest movement; Negative for respiratory distress Cardio regular rate, regular rhythm and no murmurs Peripheral Pulses: pulses 2+ throughout GI normal to inspection, nondistended, normoactive bowel sounds and non-tender Palpation: Negative for guarding or rebound tenderness present Extremity normal to inspection Extremity Narrative: Minimal bilateral lower extremity edema. General Extremety ED: Yes edema; Negative for tenderness General Extremity: edema Neuro oriented x3 and no sensory deficits noted Sensorium / Orientation: awake and alert Skin no rashes or lesions noted and no wounds Heart Score History: Moderately Suspicious ECG: Nonspecific Repolarization Age: >/= 65 years Risk Factors: >/= 3 Risk Factors or History of CAD Troponin: >1 - <3 Normal Limit Score: 7 MDM MDM MDM Narrative Medical decision making narrative: Interventions / MDM: Differential diagnosis: Chest pain, abnormal EKG, history of coronary disease Diagnosis considered but do not suspect: ACS however no active symptoms,Troponins flattened. My EKG interpretation: Sinus rate of 58, no ST changes. T wave version V5 V6. Left bundle branch block. No T wave inversions, chronic left bundle branch block compared to April 2024. Imaging independently reviewed and interpreted by myself: N/A External documents reviewed: Cardiac cath report from 2020, 50% disease of the right coronary artery, 30% of the left circumflex. Lexiscan stress test January 2024 no abnormalities. Echocardiogram April 2024 mild to moderate global hypokinesia left ventricle. Test considered but not ordered:N/A ED course: Transient chest pain had more prolonged and left arm numbness. Cardiac workup initiated aspirin given. 1150: Initial troponin 51. Creatinine 1.86. GFR 35. 10 days ago creatinine 1.96 GFR 33 this is stable. Await delta troponin. 1400: Remains symptom-free she had left arm numbness approximately 2 hours. History of coronary disease repeat troponin stable at 51. 1405: Patient nonobstructive coronary disease abnormal EKG with new T wave inversions, recent echo with cardiomyopathy with left ventricular hypokinesia. I spoke with covering machine coremaker Dr. Brandt, discussed his history, new EKG changes and flattened troponin. He states symptom-free at this time. He states can follow-up in the office for further testing. We discussed strict return precautions with patient and family. They understand and agree with plan. Re-evaluation: stable Disposition discussed with patient/family/significant other: Patient and family Case discussed with consulting clinician: Cardiology This note was generated with [employer] dictation software. It may contain incorrect words, spelling, and punctuation that were not noted in checking the note before signing. Lab Data Attestation: I reviewed the patient's lab results. Labs: Laboratory Results - last 24 hr 09/03/24 09/03/24 10:52 13:01 WBC 9.4 RBC 3.58 L Hgb 10.4 L Hct 31.7 L MCV 88.5 MCH 29.1 MCHC 32.8 RDW Std Deviation 45.8 H RDW Coeff of Wendy 14.3 Plt Count 171 MPV 11.4 Immature Gran % (Auto) 0.400 Neut % (Auto) 76.3 H Lymph % (Auto) 13.0 L [place] % (Auto) 6.8 Eos % (Auto) 3.1 Baso % (Auto) 0.4 Absolute Neuts (auto) 7.2 Absolute Lymphs (auto) 1.22 Nucleated RBC % 0 Sodium 140 Potassium 4.8 Chloride 103 Carbon Dioxide 25.8 Anion Gap 11 BUN 27 H Creatinine 1.86 H Estim Creat Clear Calc 41.21 L Est GFR (MDRD) Non-Af 35 L BUN/Creatinine Ratio 14.5 Glucose 186 H Calcium 8.9 Troponin T High Sens 51 H Troponin T Hi Sens 2 Hr 51 H Radiography Diagnostic Testing: Clinical Impression(s) from Imaging Studies Chest X-Ray 09/03/24 11:05 IMPRESSION: No Acute Findings. Moderate cardiomegaly. Reading Location: [facility] Discharge Plan Triage Chief Complaint: Chest Pain ED Provider: Didier Encarnacion Dx/Rx/DC Orders Clinical Impression: Chest pain, Abnormal ECG, Cardiomyopathy Instructions: ED Chest Pain, Uncertain Cause Prescriptions: No Action atorvastatin 40 mg tablet 40 mg PO QHS sertraline 50 mg tablet 50 mg PO DAILY Januvia 50 mg tablet 50 mg PO DAILY metformin 500 mg tablet extended release 24 hr 500 mg PO BID Rx Instructions: resume 01/27/2020 mecobalamin (vitamin B12) 1,000 mcg tablet,chewable 1,000 mcg PO DAILY gabapentin 300 mg capsule 300 mg PO BID folic acid 1 mg Tablet 1 mg PO DAILY furosemide 40 mg tablet 40 mg PO DAILY lorazepam 0.5 mg Tablet 0.5 mg PO Q4H PRN (Reason: aggitation & restlessness) ferrous gluconate 324 mg (37.5 mg iron) Tablet 325 mg PO DAILY tamsulosin [Flomax] 0.4 mg capsule 0.8 mg PO QHS rivastigmine tartrate 1.5 mg Capsule 1.5 mg PO BIDCM 30 Days Qty: 60 0RF metoprolol succinate 50 mg Tablet Extended Release 24 Hr 50 mg PO BID 30 Days Qty: 60 0RF Eliquis 5 mg Tablet 2.5 mg PO BID 30 Days Qty: 30 0RF Primary Care Provider: Lalo Hwang Referrals: Lalo Hwang MD [Primary Care Provider] - Alva Patel PA [Med Staff - Adv Practice Prof] - 3-5 Days Activity Restrictions/Additional Instructions: And transient chest symptoms. Your EKG you new T wave inversions in V5 and V6. Troponin stable at 5151. Chest x-ray negative. History of nonobstructive coronary disease from cath in 2020. Discussed with Dr. Brandt, call office to follow-up this week. If you develop recurrent symptoms or worsening return to ED for reevaluation. More testing can be done as an outpatient. Print Language: Mold[place] Disposition Disposition: Home, Self Care Discharge Date/Time: 09/03/24 14:38
[2024-09-03] MEDS: Aspirin 81 MG TAB.CHEW 324 MG PO (11:12)
[2024-09-03 11:13] LABS: Absolute Lymphocyte Count 1.22 X10^3/uL (0.83-4.51); Absolute Neutrophil Count 7.2 X10^3/uL (2.0-7.7); Basophil# 0.04 X10^3/uL; Basophil% 0.4 % (0-1); Eosinophil# 0.29 X10^3/uL; Eosinophils% 3.1 % (0-5); Hematocrit 31.7 % (40-54); Hemoglobin 10.4 g/dL (13.0-16.5); Lymphocyte # 1.22 X10^3/ul (0.83-4.51); Mean Corp Hgb Conc 32.8 g/dL (32-36); Mean Corpuscular Hgb 29.1 pg (27.0-32.0); Mean Corpuscular Volume 88.5 fL (80-94); Mean Platelet Vol. 11.4 fl (6.2-12.0); Monocyte# 0.64 X10^3/uL; Monocyte% 6.8 % (0-10); NRBC Flagged by Analyzer 0 % (0-5); Neutrophil # 7.15 X10^3/uL (2.7-7.7); Neutrophil % 76.3 % (47-70); Platelet Count 171 K/mm3 (150-450); RBC Distribution Width CV 14.3 % (11.6-14.6); RBC Distribution Width SD 45.8 fl (35.1-43.9); Red Blood Count 3.58 M/mm3 (4.6-6.2); White Blood Count 9.4 K/mm3 (4.4-11.0)
[2024-09-03 11:32] LABS: Anion Gap 11 (5-15); BUN 27 mg/dL (4-19); BUN/Creat Ratio 14.5 RATIO (10-20); Calcium,Total 8.9 mg/dL (7.6-11.0); Carbon Dioxide 25.8 mmol/L (21.0-32.0); Chloride 103 mmol/L (98-108); Creatinine, Serum 1.86 mg/dL (0.70-1.20); EST Glomerular Filtration Rate 35 (>60); Estimated Creatinine Clearance 41.21 ml/min (50-250); Glucose 186 mg/dL (70-99); Potassium 4.8 mmol/L (3.3-5.1); Sodium Level 140 mmol/L (133-145); Troponin T High Sensitivity 51 ng/L (<=22)
[2024-09-03 13:27] LABS: Troponin T High Sens 2 HR 51 ng/L (<=22)
== END 2024-09-03 14:38 | disposition home or self-care (01) ==
PROVIDERS: Emergency Provider Emergency Medicine; PCP Family Medicine; Visit Provider Emergency Medicine
DX: R07.9 Chest pain, unspecified (principal); I50.22 Chronic systolic (congestive) heart failure; I48.0 Paroxysmal atrial fibrillation; I42.9 Cardiomyopathy, unspecified; E11.22 Type 2 diabetes mellitus with diabetic chronic kidney disease; Z87.891 Personal history of nicotine dependence; E78.5 Hyperlipidemia, unspecified; I25.10 Atherosclerotic heart disease of native coronary artery without angina pectoris; Z79.01 Long term (current) use of anticoagulants; N18.9 Chronic kidney disease, unspecified; R94.31 Abnormal electrocardiogram [ECG] [EKG]; I25.2 Old myocardial infarction; Z95.2 Presence of prosthetic heart valve; Z79.899 Other long term (current) drug therapy; F32.A Depression, unspecified; Z90.49 Acquired absence of other specified parts of digestive tract
CPT/HCPCS: 71045; 80048; 84484; 85025; 93005; 99285; A4216

== ENCOUNTER → 2025-03-07 | Outpatient (CLI) | payer MEDICARE, SELFPAY ==
[2025-03-07 12:18] LABS: Mucous, Urine 0 SEEN /hpf (<or=2+); Red Blood Cells-Urine 0 SEEN /hpf (0-5)
[2025-03-07 13:46] LABS: PTHIN 50 pg/mL (11-61)
[2025-03-07 13:49] LABS: Albumin, Serum 3.5 g/dL (3.4-4.8); Anion Gap 11 (5-15); BUN 23 mg/dL (4-19); BUN/Creat Ratio 14.4 RATIO (10-20); Calcium,Total 8.9 mg/dL (7.6-11.0); Carbon Dioxide 23.8 mmol/L (21.0-32.0); Chloride 103 mmol/L (98-108); Color, Urine Yellow (Yellow); Glucose 221 mg/dL (70-99); Glucose, Dipstick Normal (Normal); Ketone-Dipstick Negative (Negative); Leukocyte Esterase-Dipstick Negative /ul (Negative); Nitrite-Dipstick Negative (Negative); Occult Blood-Urine Negative /ul (Negative); Potassium 4.4 mmol/L (3.3-5.1); Protein-Dipstick 30 mg/dl (Negative); Specific Gravity, Urine 1.015 (1.002-1.030); Urine Bilirubin Dipstick Negative (Negative)
[2025-03-07 13:55] LABS: Squamous Epithelial Cells - UA 0-5 SEEN /hpf (0-5)
== END | disposition home or self-care (01) ==
LOC: LAB 12:11
PROVIDERS: PCP Family Medicine; Referring Provider Internal Medicine Nephrology; Visit Provider Internal Medicine Nephrology
DX: N18.32 Chronic kidney disease, stage 3b (principal); R30.0 Dysuria
CPT/HCPCS: 36415; 80069; 81001; 83970; 87086; 87088

== ENCOUNTER 2025-03-20 16:11 | Inpatient (IN) | payer MEDICARE, SELFPAY ==
[2025-03-20] VITALS (8 sets, daily range): BP systolic 119–158; BP diastolic 65–82; PULSE 80–92; RESP 12–19; TEMP 36.6–36.9; O2SAT 93–98; BMI 35.3; BMI 34.0
--- NOTE | 2025-03-20 16:16 | EDS_ITS ---
HPI History of Present Illness Chief Complaint: Weakness Narrative Narrative: Patient is an 84-year-old male presenting to the emergency department for weakness. Patient has a past medical history of non-Hodgkin's lymphoma s/p chemo and radiation in 2006, CHF, CAD, [place] in 2019, TAVR in 2020, DM, parkinsons, anemia, paroxysmal A-fib not on eliquis anymore. Patient states that for the past 3 to 4 weeks he has been feeling more weak than normal. States has been fairly progressive. He states that today he was transferring with his walker from his bed to his commode when he lost his balance causing him to fall backwards and striking the back of his head. He denies any consciousness. Denies any neck or back pain. Denies any states that about a week ago he had some dysuria but denies any other symptoms including fever, chills, chest pain, shortness of breath, abdominal pain, nausea, vomiting, diarrhea, hematuria, cough, congestion, sore throat. Lives at home with who is his primary caregiver. Patient states he has bed sores that he had since his hospitalization last April. [facility] 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) Chronic kidney disease (CKD) Non-ischemic cardiomyopathy History of non-ST elevation myocardial infarction (NSTEMI) (01/22/20) Chronic systolic (congestive) heart failure CHF (congestive heart failure), NYHA class III 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 Mild chronic anemia Nonrheumatic aortic (valve) stenosis Non-Hodgkin lymphoma Obesity Splenic artery aneurysm Type 2 diabetes mellitus Kidney stones HLD (hyperlipidemia) Home Medications Medication Instructions Recorded Last Taken Type folic acid 1 mg tablet 1 mg PO DAILY health maitena nce 11/11/21 09/02/24 History atorvastatin 40 mg tablet 40 mg PO QHS cholesterol 09/02/24 History sertraline 50 mg tablet 50 mg PO DAILY Depression 09/02/24 History mecobalamin (vitamin B12) 1,000 1,000 mcg PO DAILY hea lth 11/16/23 09/02/24 History mcg chewable tablet maitenance metformin 500 mg tablet,extended 500 mg PO BID DM 01/3109/02/24 History release 24 hr sitagliptin phosphate 50 mg tablet 50 mg PO DAILY Diab etes 11/16/23 09/02/24 History (Januvia) tamsulosin 0.4 mg capsule (Flomax) 0.4 mg PO BID bladd er 04/24/24 09/02/24 History rivastigmine tartrate 1.5 mg 1.5 mg PO BIDCM 30 days # 60 caps 05/16/24 09/02/24 Rx capsule gabapentin 300 mg capsule 300 mg PO BID 08/09/2409/02 History ferrous gluconate 324 mg (37.5 mg 325 mg PO BID health maitenance 09/03/24 09/02/24 History iron) tablet furosemide 40 mg tablet 40 mg PO DAILY water pill 09/02/24 History lorazepam 0.5 mg tablet 0.5 mg PO Q4H PRN aggitation & 09/03/24 Unknown History restlessness aspirin 81 mg tablet,delayed 81 mg PO QDAY 10/06/24 Un known History release (Adult Low Dose Aspirin) carbidopa 25 mg-levodopa 100 mg 1 tab PO TID 11/14/24 Unknown History tablet Allergy/AdvReac Type Severity Reaction Status Date / Time No Known Allergies Allergy Verified 03/20/25 16:14 Family History Mother Heart disease Father Heart disease Brother Heart disease Surgical History History of left heart catheterization (08/14/20) Hx of cataract surgery Hx of cholecystectomy Social History household members: spouse Smoking Status: Former smoker how long ago did patient quit smokin alcohol intake: never substance use type: does not use caffeine: Yes Type: coffee Number of servings: 2 ROS ROS ED ROS Narrative see HPI EXAM Physical Exam Narrative Exam Narrative: Vital signs: Reviewed General: Alert and oriented x 3. No acute distress HEENT: Head is normocephalic and atraumatic. No signs of trauma to the head or face including no lacerations, abrasions or cephalhematoma. Sinuses nontender, pupils equal round and reactive. Nares are patent. No septal hematoma. Oropharynx and throat exams normal. No oropharyngeal trauma. Neck: Supple without lymphadenopathy nontender. No midline cervical spinal tenderness to palpation. No step-offs or deformities. Cardiovascular: Regular rate and rhythm, no murmurs. No rubs or gallops. Normal S1 and S2 Respiratory: Clear to auscultation bilaterally. No wheezes, rales, rhonchi Chest: Chest wall is atraumatic and nontender to palpation. No crepitus, ecchymosis or erythema Abdominal: Soft and nontender. Normal bowel sounds. No guarding or rebound. Nonsurgical abdomen : Stage 2 sacral ulcers with no signs of infection. No drainage, warmth or purulence. No fluctuance. Extremities: Hips are stable and nontender to palpation. Extremities are atraumatic and nontender with normal active range of motion. no tenderness. No bruising. Normal range of motion. Normal sensation. Back: No midline thoracic or lumbar spinal tenderness to palpation. No step- offs or deformities. Skin: No rash or redness. Neurological: Cranial nerves II through XII are grossly intact. Normal strength and sensation. Normal cerebellar function The rest of the physical exam is unremarkable Const Vital Signs: 03/20/25 16:15 03/20/25 16:17 03/20/25 16:17 Temperature 98.4 F 98.4 F Temperature Source Oral Oral Pulse Rate 80 80 Respiratory Rate 16 18 Respiratory Effort Normal Respiratory Pattern Normal Blood Pressure 119/71 119/71 Blood Pressure Mean 87 87 Pulse Ox 94 93 Oxygen Delivery Method Room Air Room Air 03/20/25 17:17 03/20/25 18:00 03/20/25 19:00 Temperature 98.4 F 97.8 F 97.9 F Temperature Source Oral Oral Oral Pulse Rate 85 84 87 Respiratory Rate 17 12 19 H Respiratory Effort Respiratory Pattern Blood Pressure 132/65 H 158/82 H 145/76 H Blood Pressure Mean 87 107 99 Pulse Ox 98 96 96 Oxygen Delivery Method Room Air Room Air Room Air MDM MDM MDM Narrative Medical decision making narrative: Patient is an 84-year-old male presenting to the emergency department for progressive generalized weakness over the past 3 to 4 weeks. Patient was seen and examined. Vitals are stable. Patient resting bed comfortably no acute distress. Differential includes but is not limited to: Electrolyte imbalance, anemia, ACS, pneumonia, UTI, viral illness CBC with a significant leukocytosis of 19 and chronic anemia of 10.3 that is stable from prior. With the significant leukocytosis and patient's complaints of generalized weakness will treat with Rocephin and doxycycline for possible urinary versus respiratory source. BMP with stable CKD. Lactate within normal limits. Urinalysis with no evidence of urinary tract infection. Troponins are mildly elevated from prior of 56 now at 96 and reflex of 107. EKG shows normal sinus rhythm with no ischemic changes noted. No dysrhythmia noted. CT of the brain and cervical spine with no acute intracranial abnormalities or acute cervical spine fracture. Chronic changes can be seen in the report. Chest x- ray and pelvis x-ray reviewed by myself. No fractures or dislocations noted. No opacities noted consistent with a pneumonia. Radiology read in agreement. Viral swab negative. Discussed results with patient and family at bedside. Patient's primary caregiver is and she states that he has been too weak today to assist him with his ADLs at home. Will require admission for generalized weakness. A dmitted to Dr. Rivero, hospitalist for further management. Clinical impression: Fall Head trauma Generalized weakness History & Record Review Discussion w/independent historian: EMS personnel, Patient and Family Lab Data Attestation: I reviewed the patient's lab results. Labs: Laboratory Results - last 24 hr 03/20/25 03/20/25 03/20/25 16:38 17:50 18:00 WBC 19.0 H RBC 3.49 L Hgb 10.3 L Hct 31.0 L MCV 88.8 MCH 29.5 MCHC 33.2 RDW Std Deviation 46.6 H RDW Coeff of Wendy 14.6 Plt Count 202 MPV 10.4 Immature Gran % (Auto) 0.600 Neut % (Auto) 89.1 H Lymph % (Auto) 3.5 L [place] % (Auto) 6.3 Eos % (Auto) 0.2 Baso % (Auto) 0.3 Absolute Neuts (auto) 16.9 H Absolute Lymphs (auto) 0.67 L Nucleated RBC % 0 Sodium 136 Potassium 5.1 Chloride 100 Carbon Dioxide 26.1 Anion Gap 10 BUN 28 H Creatinine 1.86 H Estim Creat Clear Calc 39.22 L Est GFR (MDRD) Non-Af 35 L BUN/Creatinine Ratio 15.0 Glucose 201 H Lactic Acid 1.1 Calcium 9.0 Troponin T High Sens 96 H* D Troponin T Hi Sens 2 Hr Urine Color Yellow Urine Clarity Clear Urine pH 6.0 Ur Specific [place] 1.015 Urine Protein 100 H Urine Glucose (UA) Normal Urine Ketones Negative Urine Occult Blood 10 H Urine Nitrite Negative Urine Bilirubin Negative Urine Urobilinogen Normal Ur Leukocyte Esterase Negative Urine RBC 0-5 SEEN Urine WBC 0-5 SEEN Ur Squamous Epith Cells 0-5 SEEN Urine Bacteria 0 SEEN Urine Mucus 0 SEEN 03/20/25 18:55 WBC RBC Hgb Hct MCV MCH MCHC RDW Std Deviation RDW Coeff of Wendy Plt Count MPV Immature Gran % (Auto) Neut % (Auto) Lymph % (Auto) [place] % (Auto) Eos % (Auto) Baso % (Auto) Absolute Neuts (auto) Absolute Lymphs (auto) Nucleated RBC % Sodium Potassium Chloride Carbon Dioxide Anion Gap BUN Creatinine Estim Creat Clear Calc Est GFR (MDRD) Non-Af BUN/Creatinine Ratio Glucose Lactic Acid Calcium Troponin T High Sens Troponin T Hi Sens 2 Hr 107 H* Urine Color Urine Clarity Urine pH Ur Specific [place] Urine Protein Urine Glucose (UA) Urine Ketones Urine Occult Blood Urine Nitrite Urine Bilirubin Urine Urobilinogen Ur Leukocyte Esterase Urine RBC Urine WBC Ur Squamous Epith Cells Urine Bacteria Urine Mucus Radiography Chest X-Ray - ED: Read by ED Physician, Normal, No Acute Disease, Cardiomegaly and No Infiltrates X-Ray: Right Hip, Left Hip, Read by ED Physician and No Fracture Diagnostic Testing: Clinical Impression(s) from Imaging Studies Brain CT 03/20/25 16:24 IMPRESSION: 1. No acute intracranial abnormality. 2. Age-related senescent changes. Reading Location: [facility] [place] 2[place] Cervical Spine CT 03/20/25 16:24 IMPRESSION: 1. No acute cervical spine fracture. 2. Chronic degenerative changes of the spine. Reading Location: [facility] [place] 2] Pelvis X-Ray 03/20/25 16:26 IMPRESSION: No acute osseous abnormalities. Bilateral hip osteoarthrosis. Reading Location: [facility] Chest X-Ray 03/20/25 16:50 IMPRESSION: NO ACUTE FINDINGS. Cardiomegaly. Reading Location: [facility] Discharge Plan Disposition Disposition: [facility] Discharge Date/Time: 03/20/25 21:31 D/C Safety Score for UGIB Assessment Pranav-Blatchford Bleeding Score (GBS): Stratifies upper GI bleeding patients who are "low-risk" and candidates for outpatient management. Sex: Male Hemoglobin, BUN, Recent Vital Signs: Hgb 10.3 g/dL (13.0-16.5) L 03/20/25 16:38 BUN 28 mg/dL (4-19) H 03/20/25 16:38 Pulse Rate 87 Blood Pressure 145/76 Total Risk Score: 3 Score Interpretation: Score of 0: A GBS of 0 is a “Low Risk” GI bleed, and is highly sensitive (99.6% in a 2007 retrospective study) for predicting which patients did not require any “medical intervention”: blood transfusion, endoscopy, or surgery. This was confirmed in a 2009 [facility] study where patients with a score of 0 were actually discharged and had no GI bleeding mortality at 6 month followup Score above 0: A GBS greater than zero suggests a “High Risk” GI bleed that is likely to require “medical intervention”: transfusion, endoscopy, or surgery. A higher GBS also correlated with a higher likelihood of needing intervention Scores >/= 6 are associated with >50% risk of needing intervention D/C Safety Score for LGIB Assessment Assessment Tool: Readmission and adverse event risk in patients with acute lower GI bleeding. Age, in years: >/= 70 Sex: Male Hemoglobin and Recent Vital Signs: Hgb 10.3 g/dL (13.0-16.5) L 03/20/25 16:38 Pulse Rate 87 03/20/25 19:00 Blood Pressure 145/76 03/20/25 19:00 Probability of safe discharge: 98% Total Risk Score: 3 Score Interpretation: Probability Percentage of safe discharge (absence of rebleeding, blood transfusion, therapeutic intervention, 28 day readmission, or ) Score of 8 or below: Consider discharge, with appropriate precautions. Score of 9 or above: Discharge NOT recommended. Consider admission with further workup and resuscitation as necessary.
--- NOTE | 2025-03-20 16:24 | CT_ITS ---
PROCEDURE: BRAIN/HEAD WITHOUT CONTRAST 03/20/2025 REASON FOR EXAM: FALL, HIT HEAD TECHNIQUE: Procedure Code: CTBR Modality: CT Procedure: BRAIN/HEAD WITHOUT CONTRAST Coronal and Sagittal reconstruction series were provided. One or more dose reduction techniques were used (e.g., Automated exposure control, adjustment of the mA and/or kV according to patient size, use of iterative reconstruction technique. RADIATION DOSE SUMMARY: CTDlvol: 44.99 mGy DLP: 914 mGycm COMPARISON: 04/24/2024 FINDINGS: BRAIN: No acute intraparenchymal hemorrhage. No mass lesion. No CT evidence for acute territorial infarct. No midline shift or extra-axial collection. Diffuse cerebral volume loss with corresponding ventricular prominence. Patchy periventricular white matter low attenuation, likely microvascular ischemic changes. VENTRICLES: No hydrocephalus. ORBITS: Intraocular lens implants bilaterally. The orbits are otherwise unremarkable. SINUSES AND MASTOIDS: Bilateral maxillary sinus retention cysts/polyps, which are unchanged. Redemonstration of moderate ethmoid and mild sphenoid sinus mucosal thickening bilaterally. The mastoid air cells are clear. SOFT TISSUES: No acute abnormality seen. No radiodense foreign body. BONES: The calvarium is intact. No acute osseous abnormality seen. OTHER: Calcified carotid siphons and vertebral arteries. CT/Brain/Head without Contrast IMPRESSION: 1. No acute intracranial abnormality. 2. Age-related senescent changes. Reading Location: [facility] [place]
--- NOTE | 2025-03-20 16:24 | CT_ITS ---
PROCEDURE: SPINE CERVICAL WITHOUT CONTRAS 03/20/2025 REASON FOR EXAM: FALL TECHNIQUE: Procedure Code: CTSPC Modality: CT Procedure: SPINE CERVICAL WITHOUT CONTRAS Coronal and Sagittal reconstruction series were provided. One or more dose reduction techniques were used (e.g., Automated exposure control, adjustment of the mA and/or kV according to patient size, use of iterative reconstruction technique. RADIATION DOSE SUMMARY: CTDlvol: 22.63 mGy DLP: 586 mGycm COMPARISON: 03/16/2024 FINDINGS: BONES: No acute fracture or focal osseous lesion. Bony alignment is anatomic. 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 Partial osseous fusion of the C6 and C7 vertebral bodies. Multilevel disc space narrowing, facet arthropathy and neural foraminal narrowing. Moderate central canal stenosis at C3-C4. SOFT TISSUES: No prevertebral soft tissue swelling. Scattered calcified atherosclerosis. No apical pneumothorax. CT/Spine Cervical without Contras IMPRESSION: 1. No acute cervical spine fracture. 2. Chronic degenerative changes of the spine. Reading Location: [id number]
--- NOTE | 2025-03-20 16:25 | EKG12_ITS ---
Test Reason : WEAKNESS Blood Pressure : */* mmHG Vent. Rate : 81 BPM Atrial Rate : 81 BPM P-R Int : 208 ms QRS Dur : 128 ms QT Int : 400 ms P-R-T Axes : * 214 55 degrees QTcB Int : 464 ms Normal sinus rhythm Non-specific intra-ventricular conduction block Anterolateral infarct , age undetermined Abnormal ECG RIGHT AXIS Confirmed by Julian Andre ([id number]), international editorial producer CHRISTEN BEAR ([id number]) on 03/21/2025 10:38:03 AM Referred By: Confirmed By: Julian Andre
--- NOTE | 2025-03-20 16:26 | RAD_ITS ---
PROCEDURE: PELVIS 1 OR 2 VIEWS 03/20/2025 REASON FOR EXAM: FALL TECHNIQUE: Procedure Code: RADPEL Modality: DX Procedure: PELVIS 1 OR 2 VIEWS FINDINGS: No evidence of acute fracture or dislocation. [id number] degenerative changes of the bilateral hips. Degenerative changes of the partially visualized spine. RAD/Pelvis 1 or 2 Views IMPRESSION: No acute osseous abnormalities. Bilateral hip osteoarthrosis. Reading Location: [id number]
--- NOTE | 2025-03-20 16:50 | RAD_ITS ---
PROCEDURE: CHEST PA AND LATERAL 03/20/2025 REASON FOR EXAM: WEAKNESS TECHNIQUE: Procedure Code: RADCXR Modality: DX Procedure: CHEST PA AND LATERAL COMPARISON: 09/03/2024. FINDINGS: The heart is enlarged. Aortic valve prosthesis is present. The lungs are clear. No acute osseous abnormalities. RAD/Chest PA and Lateral IMPRESSION: NO ACUTE FINDINGS. Cardiomegaly. Reading Location: [id number]
[2025-03-20 16:52] LABS: Hematocrit 31.0 % (40-54); Hemoglobin 10.3 g/dL (13.0-16.5); Immature Granulocytes Count 0.110 X10^3/uL (0.0-0.0); Mean Corp Hgb Conc 33.2 g/dL (32-36); Mean Corpuscular Volume 88.8 fL (80-94); Mean Platelet Vol. 10.4 fl (6.2-12.0); NRBC Flagged by Analyzer 0 % (0-5); Platelet Count 202 K/mm3 (150-450); RBC Distribution Width CV 14.6 % (11.6-14.6); RBC Distribution Width SD 46.6 fl (35.1-43.9); Red Blood Count 3.49 M/mm3 (4.6-6.2); White Blood Count 19.0 K/mm3 (4.4-11.0)
[2025-03-20 17:42] LABS: Anion Gap 10 (5-15); BUN 28 mg/dL (4-19); BUN/Creat Ratio 15.0 RATIO (10-20); Calcium,Total 9.0 mg/dL (7.6-11.0); Carbon Dioxide 26.1 mmol/L (21.0-32.0); Chloride 100 mmol/L (98-108); Estimated Creatinine Clearance 39.22 ml/min (50-250); Glucose 201 mg/dL (70-99); Potassium 5.1 mmol/L (3.3-5.1)
[2025-03-20 17:46] LABS: Troponin T High Sensitivity 96 ng/L (<=22)
[2025-03-20 18:10] LABS: Mucous, Urine 0 SEEN /hpf (<or=2+)
[2025-03-20 18:56] LABS: Color, Urine Yellow (Yellow); Glucose, Dipstick Normal (Normal); Ketone-Dipstick Negative (Negative); Leukocyte Esterase-Dipstick Negative /ul (Negative); Nitrite-Dipstick Negative (Negative); Occult Blood-Urine 10 /ul (Negative); Protein-Dipstick 100 mg/dl (Negative); Specific Gravity, Urine 1.015 (1.002-1.030); Urine Bilirubin Dipstick Negative (Negative)
--- NOTE | 2025-03-20 19:49 | PCM.HP.STD ---
HPI - General General Date of Admission: 03/20/25 Date of Service: 03/20/25 Chief Complaint: Weakness, debility, fall. HPI Narrative The patient is an 84 y/o M w/ PMHx: Obesity, Parkinson's disease, PAF, Anxiety and Depression, Former tobacco use, Chronic normocytic anemia/iron deficiency anemia, CKD stage III unclear subtype per GFR trending, Valvular Heart Disease s/p TAVR, Diabetes mellitus type II, HFrEF, Nonobstructive CAD, Hx Non-Hodgkin's lymphoma/diffuse large B-cell lymphoma, BPH with obstructive pathology who presents to [facility] ED on 03/20/2025 secondary to notable weakness more notable over the last 3 to 4 weeks unfortunately progressing and on day of presentation while he was transferring from his bed with the walker to the commode he lost his balance falling backwards and striking his head with no loss of consciousness or any significant back or neck pain prompting ED evaluation to be cautious. His is his primary caregiver and he does live at home. Patient notes he did have mild dysuria sensation but reports this was a couple months previous. Patient denies any recent URI type symptoms, dyspnea or chest pain. Workup in the ED included T98.4, heart rate 80, BP 119/71, respiratory rate 16, 94% on room air with most recent repeat vitals T97.9 Oral, heart rate 87, BP 145/76, respiratory rate 19, 96% on room air, CBC with WC 19, hemoglobin 10.3, MCV 88.8, platelet 202 with left shift and lymphopenia, BMP with BUN/Cr 28/1.86, GFR 35, glucose 201, lactic acid 1.1, initial troponin 96, urinalysis unremarkable, CT brain with no acute intracranial findings with age-related senescent changes, CT cervical spine with no acute cervical spinal fracture, chronic degenerative changes, plain film of the pelvis with no acute osseous abnormalities with bilateral hip osteoarthrosis, chest x-ray with cardiomegaly with no acute cardiopulmonary findings, EKG with SR with no acute evidence of ischemia. In the ED prior to results being obtained given concern for possible UTI versus pneumonia patient was administered Rocephin 1 g IV x 1 and doxycycline 100 mg IV x 1. [facility] 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) Chronic kidney disease (CKD) Non-ischemic cardiomyopathy History of non-ST elevation myocardial infarction (NSTEMI) (01/22/20) Chronic systolic (congestive) heart failure CHF (congestive heart failure), NYHA class III Atherosclerotic heart disease of [place]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 Mild chronic anemia Nonrheumatic aortic (valve) stenosis Non-Hodgkin lymphoma Obesity Splenic artery aneurysm Type 2 diabetes mellitus Kidney stones HLD (hyperlipidemia) Home Medications Medication Instructions Recorded Last Taken Type folic acid 1 mg tablet 1 mg PO DAILY [facility] 11/11/21 09/02/24 History atorvastatin 40 mg tablet 40 mg PO QHS cholesterol 02/20/22 09/02/24 History sertraline 50 mg tablet 50 mg PO DAILY Depression 02/20/22 09/02/24 History mecobalamin (vitamin B12) 1,000 1,000 mcg PO DAILY [facility] 11/16/23 09/02/24 History mcg chewable tablet [facility] metformin 500 mg tablet,extended 500 mg PO BID DM 11/16/23 09/02/24 History release 24 hr sitagliptin phosphate 50 mg tablet 50 mg PO DAILY Diabetes 11/16/23 09/02/24 History (Januvia) tamsulosin 0.4 mg capsule (Flomax) 0.4 mg PO BID bladder 04/24/24 09/02/24 History rivastigmine tartrate 1.5 mg 1.5 mg PO BIDCM 30 days #60 caps 05/16/24 09/02/24 Rx capsule gabapentin 300 mg capsule 300 mg PO BID 08/09/24 09/02/24 History ferrous gluconate 324 mg (37.5 mg 325 mg PO BID [facility] 09/03/24 09/02/24 History iron) tablet furosemide 40 mg tablet 40 mg PO DAILY water pill 09/03/24 09/02/24 History lorazepam 0.5 mg tablet 0.5 mg PO Q4H PRN aggitation & 09/03/24 Unknown History restlessness aspirin 81 mg tablet,delayed 81 mg PO QDAY 10/06/24 Unknown History release (Adult Low Dose Aspirin) carbidopa 25 mg-levodopa 100 mg 1 tab PO TID 11/14/24 Unknown History tablet Allergy/AdvReac Type Severity Reaction Status Date / Time No Known Allergies Allergy Verified 03/20/25 16:14 Family History Mother Heart disease Father Heart disease Brother Heart disease Surgical History History of left heart catheterization (08/14/20) Hx of cataract surgery Hx of cholecystectomy Social History household members: spouse Smoking Status: Former smoker how long ago did patient quit smokin alcohol intake: never substance use type: does not use caffeine: Yes Type: coffee Number of servings: 2 ROS ROS Narrative Admission Review of Systems: CONSTITUTIONAL: No weight loss, fever, chills, + weakness or fatigue. HEENT: Eyes: No visual loss, blurred vision, double vision or yellow sclerae. Ears, Nose, Throat: No hearing loss, sneezing, congestion, runny nose or sore throat. SKIN: No rash or itching, lesions, wounds except + stage ecchymoses, abrasions, early decubitus ulcers. CARDIOVASCULAR: + Mild chronic ankle edema unchanged. No chest pain, chest pressure or chest discomfort, palpitations, orthopnea, syncopal events. RESPIRATORY: No shortness of breath, cough or sputum, wheezing, hemoptysis. GASTROINTESTINAL: + Decreased appetite. No nausea, vomiting or diarrhea, abdominal pain, melena, BRBPR. GENITOURINARY: + Although history somewhat difficult to ascertain does report dysuria but when discussed frankly he says this was 2 months previous, does have chronic urinary frequency with underlying BPH. No recent reported dysuria, urgency or retention. NEUROLOGICAL: + Underlying Parkinson disease with tremors, frequent falls. No headache, dizziness, syncope, paralysis, ataxia, numbness or tingling in the extremities, focal weakness, change in bowel or bladder control, seizure. MUSCULOSKELETAL: + muscle, back pain, joint pain or stiffness. HEMATOLOGIC: + Chronic anemia, easy bleeding/bruising. LYMPHATICS: No enlarged nodes. No history of splenectomy. PSYCHIATRIC: + History of anxiety and depression. ENDOCRINOLOGIC: No reports of sweating, cold or heat intolerance. No polyuria or polydipsia. ALLERGIES: No history of asthma, hives, eczema or rhinitis. Vital Signs Vital Signs Vital Signs: 03/20/25 16:15 03/20/25 16:17 03/20/25 16:17 Temperature 98.4 F 98.4 F Temperature Source Oral Oral Pulse Rate 80 80 Respiratory Rate 16 18 Respiratory Effort Normal Respiratory Pattern Normal Blood Pressure 119/71 119/71 Blood Pressure Mean 87 87 Pulse Ox 94 93 Oxygen Delivery Method Room Air Room Air 03/20/25 17:17 03/20/25 18:00 03/20/25 19:00 Temperature 98.4 F 97.8 F 97.9 F Temperature Source Oral Oral Oral Pulse Rate 85 84 87 Respiratory Rate 17 12 19 H Respiratory Effort Respiratory Pattern Blood Pressure 132/65 H 158/82 H 145/76 H Blood Pressure Mean 87 107 99 Pulse Ox 98 96 96 Oxygen Delivery Method Room Air Room Air Room Air Weight Weight: 260 lb 5.855 oz Body Mass Index (BMI) 35.3 Physical Exam Narrative Physical Examination: General: Awake, alert, oriented to self, place, month, president, remains cooperative, laying in ED bed, fatigued appearing. Skin: Normal color, normal turgor, no icterus, no cyanosis except occasional stage ecchymoses, abrasions, early decubitus ulcers. HEENT: AT/NC, EOMI, PERRLA, mildly dry MM, no carotid bruits or JVD noted. Lungs: Mildly diminished, greater bases, poor effort, no rales, ronchi or wheezing. Heart: Regular rate and rhythm; no gallop, rub audible. Abdomen: Soft, obese, NTTP, ND, normal BS, no appreciated HSM. Extremities: No cyanosis, no clubbing, mild ankle not markedly pitting edema reported as chronic, see skin. Neurological: Patient awake, alert, oriented as noted, cognitive function appears baseline intact; pupils equally reactive to light and accommodation, cranial nerves grossly normal, moving all 4 extremities, no focal deficits, strength severely globally decreased, underlying Parkinson disease with mild tremors. Psychiatric: Affect appears flat, fatigued, no acute evidence of depressive or anxiety feelings but does have underlying history. Results Lab / Micro Data 03/20/25 16:38 03/20/25 16:38 Labs: Laboratory Results - last 24 hr 03/20/25 16:38: WBC 19.0 H, RBC 3.49 L, Hgb 10.3 L, Hct 31.0 L, MCV 88.8, MCH 29.5, MCHC 33.2, RDW Std Deviation 46.6 H, RDW Coeff of Wendy 14.6, Plt Count 202, MPV 10.4, Immature Gran % (Auto) 0.600, Neut % (Auto) 89.1 H, Lymph % (Auto) 3.5 L, Saline % (Auto) 6.3, Eos % (Auto) 0.2, Baso % (Auto) 0.3, Absolute Neuts (auto) 16.9 H, Absolute Lymphs (auto) 0.67 L, Nucleated RBC % 0, Sodium 136, Potassium 5.1, Chloride 100, Carbon Dioxide 26.1, Anion Gap 10, BUN 28 H, Creatinine 1.86 H, Estim Creat Clear Calc 39.22 L, Est GFR (MDRD) Non-Af 35 L, BUN/Creatinine Ratio 15.0, Glucose 201 H, Calcium 9.0, Troponin T High Sens 96 H* D 03/20/25 17:50: Lactic Acid 1.1 03/20/25 18:00: Urine Color Yellow, Urine Clarity Clear, Urine pH 6.0, Ur Specific [place] 1.015, Urine Protein 100 H, Urine Glucose (UA) Normal, Urine Ketones Negative, Urine Occult Blood 10 H, Urine Nitrite Negative, Urine Bilirubin Negative, Urine Urobilinogen Normal, Ur Leukocyte Esterase Negative Micro: Microbiology 03/20/25 16:38 Mucosa - Nose SARS-CoV-2, Influenza & RSV (PCR) - Final Imaging Radiology Impression Brain CT 03/20/25 16:24 IMPRESSION: 1. No acute intracranial abnormality. 2. Age-related senescent changes. Reading Location: [facility] Cervical Spine CT 03/20/25 16:24 IMPRESSION: 1. No acute cervical spine fracture. 2. Chronic degenerative changes of the spine. Reading Location: [facility] Pelvis X-Ray 03/20/25 16:26 IMPRESSION: No acute osseous abnormalities. Bilateral hip osteoarthrosis. Reading Location: [facility] Chest X-Ray 03/20/25 16:50 IMPRESSION: NO ACUTE FINDINGS. Cardiomegaly. Reading Location: [facility] Assessment & Plan Assessment/Plan (1) Failure to thrive in adult: PLAN: Plan The patient is an 84 y/o M w/ PMHx: Obesity, Parkinson's disease, PAF, Anxiety and Depression, Former tobacco use, Chronic normocytic anemia/iron deficiency anemia, CKD stage III unclear subtype per GFR trending, Valvular Heart Disease s/p TAVR, Diabetes mellitus type II, HFrEF, Nonobstructive CAD, Hx Non-Hodgkin's lymphoma/diffuse large B-cell lymphoma, BPH with obstructive pathology who presents to [facility] ED on 03/20/2025 secondary to notable weakness more notable over the last 3 to 4 weeks unfortunately progressing and on day of presentation while he was transferring from his bed with the walker to the commode he lost his balance falling backwards and striking his head with no loss of consciousness or any significant back or neck pain prompting ED evaluation to be cautious. #1. Debility, weakness, progressive with adult failure to thrive with recent mechanical fall with significant high risk for fall and injury with incidentally noted leukocytosis of unclear significance: Will admit to PCU given #2, will continue to evaluate #2 is noted, given leukocytosis of unclear etiology with UA not marked appearing and specific gravity normal range lower suspicion for marked dehydration, will obtain procalcitonin, low threshold pending continued vital sign trending for repeat chest x-ray to ascertain for anything developing if appropriate, will maintain on fall and aspiration precautions, PT/OT/case management consult for discharge planning as likely would benefit from at least assisted if not skilled versus transition needs. #2. Indeterminate cardiac enzyme of unclear significance: EKG in ED with SR with nonspecific changes with no acute evidence of ischemia, CXR w/ no acute cardiopulmonary findings, initial trop 96 (most recently 09/03/2024 troponin 51 at that time) with repeat delta pending. Will place on a monitored bed to assure no acute myocardial infarction with serial cardiac enzymes and EKGs. If cardiac enzymes rise further will obtain ECHO and initiate on heparin drip if clinically appropriate. Mag requested. FLP in AM. Continue asa. If enzymes rise notably may certainly also consider cardiology involvement. #3. Nonobstructive CAD: Patient with noted moderate coronary disease with most recent evaluation in August 2020 with no evidence of any high-grade stenosis at that time, continue aspirin, statin, not on beta-daniella therapy nor any MAI inhibitor/ARB possibly secondary to side effect/renal disease. Continue evaluation as noted above. #4. PAF/flutter: Not on any rate or rhythm agents, previously on Eliquis however given significant fall risk Eliquis was eventually discontinued. Per record following TAVR patient had no significant recurrent A-fib/flutter events. #5. HFrEF: Most recent echocardiogram as noted 04/24/2024 with LVEF 40%, normal LV size, mild concentric LVH, mild to moderate global hypokinesis LV, bioprosthetic AV, will continue aspirin, statin, per current list does not appear to be on any beta-daniella therapy or MAI inhibitor/ARB he likely secondary to underlying renal disease, continue Lasix regimen. #6. Chronic Kidney Disease Stage III, unclear subtype or GFR trending: Admission BUN/Cr 28/1.86, GFR 35, baseline renal function primarily 1.5-1.9, most recently previous to this 03/07/2025 creatinine 1.57, repeat BMP in AM, per record following with Dr. Yocasta Laboy manager [employer].. #7. Chronic normocytic anemia/iron deficiency anemia: Admission hemoglobin 10.3, MCV 88.8, baseline hemoglobin primarily more recently 10 range, stable, continue to trend, continue iron supplementation. #8. Parkinson's disease of unclear specific extent/severity: Will continue patient home Sinemet and rivastigmine regimen, complicates presentation, maintain on fall and aspiration precautions, PT/OT/case management consulted for discharge planning. #9. Hx Non-Hodgkin's lymphoma/diffuse large B-cell lymphoma: Status post chemo and radiation 2006, consider remission, encourage follow-up with oncology as previously arranged. #10. Diabetes mellitus type II with chronic neuropathy: Hold oral home regimen, ADA diet, accu checks w/ ISS, continue home gabapentin regimen. #11. Anxiety and depression: Will continue patient home sertraline regimen as well as low-dose as needed lorazepam however will hold for sedation. #12. Valvular heart disease: Status post TAVR, most recent echocardiogram 04/24/2024 with LVEF 40%, normal LV size, mild concentric LVH, mild to moderate global hypokinesis LV, bioprosthetic AV, mean aortic gradient 10 mmHg. #13. Hypertension: Continue home regimen including Lasix with hold parameters as needed, PRN hydralazine. #14. Hyperlipidemia: Continue home statin regimen. AM FLP. 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 #16. Former tobacco use: Encourage continued tobacco use. #17. Obesity: Weight loss and lifestyle changes encouraged. #18. DVT prophylaxis: Lovenox. #19. CODE status: Patient MANN is his who is present and living will is currently in place. Discussed CODE status at length including difference between FULL code, DNR-CCA and DNR-CC status. Following discussions about the differences in these status, requested Full Code status. Advanced Care Planning Face to Face Time: 16 minutes. Charges/Coding Visit Charges Inpatient E&M: 76235 Init Hosp L2 Procedures Hospitalists Procedures: 96597 Advncd Care Plan 30 Min D/C Safety Score for UGIB Assessment Pranav-Blatchford Bleeding Score (GBS): Stratifies upper GI bleeding patients who are "low-risk" and candidates for outpatient management. Sex: Male Hemoglobin, BUN, Recent Vital Signs: Hgb 10.3 g/dL (13.0-16.5) L 03/20/25 16:38 BUN 28 mg/dL (4-19) H 03/20/25 16:38 Pulse Rate 87 Blood Pressure 145/76 Total Risk Score: 3 Score Interpretation: Score of 0: A GBS of 0 is a “Low Risk” GI bleed, and is highly sensitive (99.6% in a 2007 retrospective study) for predicting which patients did not require any “medical intervention”: blood transfusion, endoscopy, or surgery. This was confirmed in a 2009 Lancet study where patients with a score of 0 were actually discharged and had no GI bleeding mortality at 6 month followup Score above 0: A GBS greater than zero suggests a “High Risk” GI bleed that is likely to require “medical intervention”: transfusion, endoscopy, or surgery. A higher GBS also correlated with a higher likelihood of needing intervention Scores >/= 6 are associated with >50% risk of needing intervention D/C Safety Score for LGIB Assessment Assessment Tool: Readmission and adverse event risk in patients with acute lower GI bleeding. Age, in years: >/= 70 Sex: Male Hemoglobin and Recent Vital Signs: Hgb 10.3 g/dL (13.0-16.5) L 03/20/25 16:38 Pulse Rate 87 03/20/25 19:00 Blood Pressure 145/76 03/20/25 19:00 Probability of safe discharge: 98% Total Risk Score: 3 Score Interpretation: Probability Percentage of safe discharge (absence of rebleeding, blood transfusion, therapeutic intervention, 28 day readmission, or ) Score of 8 or below: Consider discharge, with appropriate precautions. Score of 9 or above: Discharge NOT recommended. Consider admission with further workup and resuscitation as necessary.
[2025-03-20 19:52] LABS: Red Blood Cells-Urine 0-5 SEEN /hpf (0-5); Squamous Epithelial Cells - UA 0-5 SEEN /hpf (0-5)
--- NOTE | 2025-03-20 20:21 | EKG12_ITS ---
Test Reason : ADMIT EKG Blood Pressure : */* mmHG Vent. Rate : 86 BPM Atrial Rate : 86 BPM P-R Int : 166 ms QRS Dur : 136 ms QT Int : 394 ms P-R-T Axes : 9 -34 125 degrees QTcB Int : 471 ms Sinus rhythm with occasional Premature ventricular complexes Left axis deviation Left ventricular hypertrophy with QRS widening and repolarization abnormality ( R in aVL , [place] product ) Abnormal ECG When compared with ECG of 20-Mar-2025 16:32, MANUAL COMPARISON REQUIRED DATA IS UNCONFIRMED Confirmed by Julian Andre ([id number]), editor trade journal CHRISTEN BEAR ([id number]) on 03/21/2025 8:35:46 AM Referred By: Confirmed By: Julian Andre
[2025-03-20 20:41] LABS: Troponin T High Sens 2 HR 107 ng/L (<=22)
--- OUTSIDE RECORDS SUMMARY | 2025-03-20 20:51 | XMS RPT_ITS | CCD ---
Author Organization [facility] Care Team Providers Care Machine Design Engineer Name Role Phone Tasha Romeroginger Gillis Unavailable NickManuela Unavailable FRANKY Greco, Macey Ordonez Unavailable Unavailabl e Jam VILLANUEVA, Arsh Grier Primary Care Provider [phone] Arsh Polk MD Primary Care Provider Dr. Arsh Polk Primary Care Provider Dr. Arsh Polk Referring Provider Dr. Fish Cano Attending Provider KatrinaDr. Lopez Attending Provider Eleanor SUPERVISING DEPUTY, SUPERVISING DEPUTY-Raul Feliciano Attending Provider Dr. Fish Cano Other Provider Arsh Polk MD Primary Care Provider Arsh Polk MD Primary Care Provider Dr. Arsh Polk Primary Care Provider Dr. Arsh Polk Referring Provider Kaitlin SUPERVISING DEPUTY, SUPERVISING DEPUTY-C Marlen Ordonez Attending Provider Eleanor SUPERVISING DEPUTY, SUPERVISING DEPUTY-Raul Feliciano Attending Provider Arsh Polk MD Primary Care Provider Arsh Polk MD Primary Care Provider Cathi DIETARY TECH.Lexi TORRES Unavailable Elena DIETARY TECH.IGNITER CAPPER, Romina A Unavailable [phone] Suppan DIETARY TECH.IGNITER CAPPER, Romina A Unavailable [phone] Suppan DIETARY TECH.IGNITER CAPPER, Romina A Unavailable Liliam Holt RN Unavailable Dr. Arsh Polk MD Primary Care Provider Dr. Arsh Polk MD Referring Provider Alva Vázquez Attending Provider Dr. Nakia Laboy DO Attending Provider Dr. Nakia Laboy DO Referring Provider Dr. Nakia Laboy DO Other Provider Alva Vázquez Referring Provider Katrina VILLANUEVA, Dr. Lopez Attending Provider [phone] Didier Encarnacion DO Attending Provider Dr. Didier Encarnacion DO Emergency Provider [facility] Reagan AYERS Attending Provider PATTI MOREIRA Referring Unavailable JAM, ARSH J Primary Care Unavailable JAM, ARSH J Primary Care Unavailable BILL, YENNY Referring Unavailable JAM, ARSH J Primary Care Unavailable KAYLEE HERRMANN Attending Unavailable JAM, ARSH J Primary Care Unavailable BILL, YENNY Referring Unavailable JAM, ARSH J Primary Care Unavailable JAM, ARSH J Referring Unavailable DENNY TOURE Attending Unavailable JAM, ARSH J Primary Care Unavailable BILL, YENNY Referring Unavailable JAM, ARSH J Primary Care Unavailable BILL, YENNY Referring Unavailable JAM, ARSH J Primary Care Unavailable BILL, YENNY Referring Unavailable JAM, ARSH J Primary Care Unavailable BILL, YENNY Referring Unavailable JAM, ARSH J Primary Care Unavailable BILL, YENNY Referring Unavailable JAM, ARSH J Primary Care Unavailable BILL, YENNY Referring Unavailable JAM, ARSH J Primary Care Unavailable BILL, YENNY Referring Unavailable JAM, ARSH J Primary Care Unavailable JAM, ARSH J Attending Unavailable JAM, ARSH J Primary Care Unavailable BILL, YENNY Referring Unavailable BILL, YENNY Attending Unavailable JAM, ARSH Carpenter Primary Care Unavailable OTTO JRARSH Referring Unavailable JAM, ARSH J Primary Care Unavailable OTTO JR, ARSH Carpenter Referring Unavailable JAM, ARSH J Primary Care Unavailable BILL, YENNY Referring Unavailable JAM, ARSH J Primary Care Unavailable BILL, YENNY Referring Unavailable JAM, ARSH J Primary Care Unavailable BILL, YENNY Referring Unavailable BILL, YENNY Attending Unavailable AJM, ARSH J Primary Care Unavailable BILL, YENNY Referring Unavailable OTTO JRARSH J Attending Unavailable JAM, ARSH J Primary Care Unavailable BILL, YENNY Referring Unavailable JAM, ARSH J Primary Care Unavailable JAM, ARSH J Primary Care Unavailable BILL, YENNY Referring Unavailable JAM, ARSH J Primary Care Unavailable YEYO BAILEY Referring Unavailable JAM, ARSH J Primary Care Unavailable ROMINA FLYNN Attending Unavailable BILL, YENNY Referring Unavailable JAM, ARSH J Primary Care Unavailable JAM, ARSH J Referring Unavailable JAM, ARSH J Primary Care Unavailable JAM, ARSH J Referring Unavailable JAM, RASH J Primary Care Unavailable BILL, YENNY Referring Unavailable BILL, YENNY Attending Unavailable JAM, ARSH J Primary Care Unavailable BILL, YENNY Referring Unavailable JAM, ARSH J Primary Care Unavailable ARSH OTTO JR Attending Unavailable JAM, ARSH J Primary Care Unavailable JAM, ARSH J Attending Unavailable JAM, ARSH J Primary Care Unavailable BILL, YENNY Referring Unavailable JAM, ARSH J Primary Care Unavailable BILL, YENNY Referring Unavailable AJM, ARSH J Primary Care Unavailable BILL, YENNY Referring Unavailable JAM, ARSH J Primary Care Unavailable BILL, YENNY Referring Unavailable JAM, ARSH J Primary Care Unavailable BILL, YENNY Referring Unavailable BILL, YENNY Attending Unavailable JAM, ARSH J Primary Care Unavailable BILL, YENNY Referring Unavailable ROMINA FLYNN Attending Unavailable JAM, ARSH Carpenter Primary Care Unavailable JAM, ARSH J Primary Care Unavailable BILL, YENNY Referring Unavailable JAM, ARSH J Primary Care Unavailable SELF Referring Unavailable YANG BELLO Attending Unavailable BILL, YENNY Referring Unavailable JAM, ARSH J Primary Care Unavailable BILL, YENNY Referring Unavailable JAM, ARSH J Primary Care Unavailable OTTO JR, ARSH Carpenter Referring Unavailable JAM, ARSH J Primary Care Unavailable JAM, ARSH J Primary Care Unavailable BILL, YENNY Referring Unavailable JAM, ARSH J Primary Care Unavailable BILL, YENNY Referring Unavailable JAM, ARSH J Primary Care Unavailable BILL, YENNY Referring Unavailable JAM, ARSH J Primary Care Unavailable BILL, YENNY Referring Unavailable JAM, ARSH J Primary Care Unavailable BILL, YENNY Referring Unavailable BILL, YENNY Attending Unavailable BILL, YENNY Referring Unavailable BILL, YENNY Attending Unavailable JAM, ARSH J Primary Care Unavailable BILL, YENNY Referring Unavailable JAM, ARSH J Primary Care Unavailable JAM, ARSH J Primary Care Unavailable JAM, ARSH J Attending Unavailable JAM, ARSH J Primary Care Unavailable JAM, ARSH J Referring Unavailable DIEUDONNE LOPEZ Attending Unavailable SEAN REESE Consulting Unavailable JAM, ARSH J Primary Care Unavailable JAM, ARSH J Primary Care Unavailable YEYO BAILEY Attending Unavailable PATTI MOREIRA Referring Unavailable Owen Chakraborty Attending Unavailable Rey Dominguez Consulting Unavailable Rey Dominguez Admitting Unavailable Jam, Arsh Primary Care Unavailable Juan Antonio, Bertrand Chi Attending Unavailable Juan Antonio, Bertrand Chi Admitting Unavailable Jam, Arsh Primary Care Unavailable Alva Vázquez Attending Unavail able Nakia Laboy Consulting Unavailable [place], Arsh Primary Care Unavailable Alva Vázquez Referring Unavail able John Herndon Attending Unavailable [place], Arsh Primary Care Unavailable Rey Dominguez Attending Unavailable [place], Arsh Primary Care Unavailable Owen Chakraborty Attending Unavailable Linda Dominguezs Lorena Consulting Unavailable Rey Dominguez Admitting Unavailable [place], Arsh Primary Care Unavailable Owen Chakraborty Consulting Unavailable Alva Vázquez Attending Unavail able [place], Arsh Primary Care Unavailable [place], Arsh Referring Unavailable [place], Arsh Primary Care Unavailable [place], Arsh Referring Unavailable Reagan Webster NP Attending Unavailable John Herndon Attending Unavailable [place], Arsh Primary Care Unavailable Alva Vázquez Referring Unavail able Nakia Laboy Referring Unavailable BenoitRafaelNakia Attending Unavailable Jam, Arsh Primary Care Unavailable Benoit, Nakia Referring Unavailable BenoitRafaelNakia Attending Unavailable [place], Arsh Primary Care Unavailable [place], Arsh Referring Unavailable Jam, Arsh Attending Unavailable [place], Arsh Primary Care Unavailable Didier Encarnacion Attending Unavailable JamArsh [facility] Unavailable Allergies Allergy Classification Reported Allergen(s) Allergy Type Date of Onset Reaction(s) Facility HMG-CoA Reductase Inhibitors (statins) (2 sources) atorvastatin Drug Allergy 7 Myalgia [facility] Work Phone: (20 sources) pravastatin; Translations: [PRAVASTATIN] Drug Allergy 7 Myalgia [facility] Work Phone: [phone] (4 sources) NKDA; Translations: [NKDA] allergy to substance 7 [facility] Work Phone: [phone] (5 sources) Angiotensin-conv erting enzyme inhibitor agent; Translations: [MAI INHIBITORS] Propensity to adverse reactions to drug 8 Other: See Comments [facility] Work Phone: (20 sources) atorvastatin; Translations: [ATORVASTATIN] Drug Allergy 7 Myalgia [facility] Work Phone: (5 sources) HMG-CoA reductase inhibitor; Translations: [[id number]-OTC-TAH REDUCTASE INHIBITORS] Drug Intolerance 9 Myalgia [facility] Work Phone: (20 sources) Angiotensin-conv erting enzyme inhibitor agent Propensity to adverse reactions to drug 8 Other: See Comments [facility] Work Phone: (20 sources) HMG-CoA reductase inhibitor Drug Intolerance 9 Myalgia [facility] Work Phone: Medications Current Medications Medication Drug Class(es) Dates Sig (Normalized) Sig (Original) acetaminophen 325 mg oral tablet (1 source) Start: 10-16-2020 acetaminophen (TYLENOL) tablet 650 mg aspirin 81 mg delayed release oral tablet (20 sources) Nonsteroidal Anti-inflammatory Drug Start: 10-06-2024 Aspirin (Adult Low Dose Aspirin) 81 mg tablet,delayed release (DR/EC) Active 81 mg PO daily October 06, 2024 12:00am Start: 01-22-2020 End: 06-01-2024 take 1 tablet by mouth once daily Aspirin 81 MG tablet Discontinued 81 mg PO DAILY@1999January 22, 2020 12:00am May 16, 2024 8:48pm [facility] Start: 01-09-2014 take 1 tablet by johny th once daily ASPIRIN 81 MG TABS One tablet by mouth daily ASPIRIN [id number] Macey Greco RN Comment on above: Take 81 mg by mouth once daily. atorvastatin 40 mg oral tablet (20 sources) HMG-CoA Reductase Inhibitor Start: End: take 1 tablet by mouth once daily at bedtime for hyperlipidemia atorvastatin (LIPITOR) 40 mg tablet Indications: Mixed hyperlipidemia Take 1 tablet by mouth daily at bedtime. For cholesterol. 90 tablet 3 11/28/2024 11/28/2025 Active Start: 10-16-2020 take 40 mg by mouth once daily 40 mg, Oral, DAILY, First dose on Wed10/16/20 at 2100 Start: 08-02-2020 End: 02-20-2022 take 2 tablets by mouth every other day Atorvastatin 40 mg tablet Discontinued 80 mg PO every other day 08 04September 10, 2020 1:42pm February 20, 2022 10:36am Start: 02-09-2020 End: 02-20-2022 take 80 mg by mouth every other day Atorvastatin Discontinued 80 MG PO every other day September 10, 2020 1:42pm February 20, 2022 10:36am Start: 02-02-2020 End: 11-07-2021 take 2 tablets by mouth at bedtime Atorvastatin 40 mg tablet Discontinued 80 mg PO AT BEDTIME February 09, 2020 12:00am August 02, 2020 11:11am Start: 01-24-2020 End: 02-09-2020 take 1 tablet by mouth at bedtime Atorvastatin 80 MG tablet Discontinued 80 mg PO AT BEDTIME 30 January 24, 2020 12:00am February 09, 2020 10:57am Comment on above: Take 2 tablets by mo uth daily at bedtime. For cholesterol. Take 1 tablet by johny th daily at bedtime. For cholesterol. bisacodyl 5 mg delayed release oral tablet (1 source) Stimulant Laxative Start: 10-16-2020 bisacodyl (DULCOLAX) EC tablet 5 mg carbidopa 25 mg / levodopa 100 mg oral tablet (20 sources) Aromatic Amino Acid Decarboxylation Inhibitor, Aromatic Amino Acid Start: 11-14-2024 Carbidopa-Levodopa 25-100 mg tablet Active 1 {tbl} PO THREE TIMES A DAY November 14, 2024 12:00am Start: 10-20-2024 End: 01-12-2025 take 1 tablet by mouth once carbidopa-levodopa (SINEME T 25-100) 25-100 mg per tablet Indications: Parkinson's disease, unspecified whether dyskinesia present, unspecified whether manifestations fluctuate (HCC) Take 1 tablet by mouth at 7AM, Noon and 5PM. 90 tablet 01/12/2025 Active Start: 03-27-2024 End: 09-24-2024 carbidopa-levodopa (SINEMET) 25-100 mg per tablet Indications: Parkinson's disease, unspecified whether dyskinesia present, unspecified whether manifestations fluctuate (HCC) Take 1 tablet at 6AM, 1 tablet at 10AM, 1 tablet at 2PM and 1 tablet at 6PM. 360 tablet 03/27/2024 05/29/2024 Discontinued (Discontinued by another Health Care Provider) Start: 11-16-2023 End: 04-24-2024 Carbidopa-Levodopa 50-200 mg tablet extended release Discontinued 1 {tbl} PO TWICE A DAY November 16, 2023 12:00am April 24, 2024 10:04pm Start: 09-06-2023 End: 01-19-2024 carbidopa-levodopa CR (CONSUELO ET CR) 50-200 mg per tablet Indications: Parkinson's disease, unspecified whether dyskinesia present, unspecified whether manifestations fluctuate (HCC) Take 1 tablet at 0600 and 1 tablet at 1800. 60 tablet 2 09/06/2023 01/19/2024 Discontinued (Discontinued by another Health Care Provider) Start: 11-17-2022 take 1 tablet by johny once daily Carbidopa-Levodopa Active 1 TABLET PO .COMPLEX November 17, 2022 12:00am TAKE ONE TABLET DAILY AT 530AM, AT 11AM, AND 430PM Start: 10-19-2022 End: 04-24-2024 carbidopa-levodopa (SINEMET) 25-100 mg per tablet Indications: Parkinson's disease, unspecified whether dyskinesia present, unspecified whether manifestations fluctuate (HCC) Take 1 tablet daily at 0600AM, 1 tablet daily at 1100AM and 1 tablet daily at 1600PM 270 tablet 3 12/29/2023 03/27/2024 Discontinued Comment on above: Take 1 tablet daily at 530AM, 1 tablet daily at 11AM and 1 tablet daily at 430PM. Take 2 tablet daily at 530AM, 2 tablet daily at 11AM and 2 tablet daily at 430PM. 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 ABD/PEL WO Routine order Administer, As Directed One Time Only, via Oral, Rectal, both Oral and Rectal, Enteric Tube, Stoma or Indwelling Catheter, Enteric Contrast as designated per enteric contrast guidelines For CT ABD/PEL W IVC ON Routine order Administer, As Directed One Time Only, via Oral, Rectal, both Oral and Rectal, Enteric Tube, Stoma or Indwelling Catheter, Enteric Contrast as designated per enteric contrast guidelines ferrous gluconate 324 mg oral tablet (20 sources) Start: 09-03-2024 take 1 tablet by mouth once daily Ferrous Gluconate 324 mg (37.5 mg iron) Tablet Active 325 mg PO DAILY September 03, 2024 12:00am [facility] Start: 04-27-2024 End: 09-03-2024 take 1 tablet by mouth every other day Ferrous Gluconate 324 mg (37.5 mg iron) Tablet Discontinued 325 mg PO EVERY OTHER DAY 15 30 0 April 27, 2024 1:00am September 03, 2024 12:[facility]pm [facility] Start: 03-06-2024 End: 01-03-2025 take 1 tablet by mouth twice daily ferrous gluconate 256 mg (28 mg iron) tab Take 1 tablet by mouth two times a day. 180 tablet 1 03/27/2024 01/03/2025 Discontinued Start: 09-13-2023 End: 03-04-2024 take 1 tablet by mouth twice daily ferrous gluconate 256 mg (28 mg iron) tab Take 1 tablet by mouth two times a day. 180 tablet 1 09/13/2023 03/04/2024 Discontinued Start: 11-17-2022 End: 04-27-2024 take 1 tablet by mouth twice daily Ferrous Gluconate 240 mg (27 mg iron) tablet Discontinued 240 mg PO TWICE A DAY November 17, 2022 12:00am April 27, 2024 12:30pm Start: 11-17-2022 take 240 mg by mouth once melyssa y Ferrous Gluconate Active 240 MG PO DAILY November 17, 2022 12:00am Start: 12-16-2021 End: 11-17-2022 take 1 tablet by mouth once daily Ferrous Gluconate 256 mg (28 mg iron) tablet Discontinued 256 mg PO DAILY December 16, 2021 12:00am November 17, 2022 12:07pm Encounter for screening colonoscopy Encounter for screening for malignant neoplasm of colon Start: 11-07-2021 End: 09-13-2023 take 1 tablet by mouth once daily ferrous gluconate 256 mg (28 mg iron) tab Take 1 tablet by mouth once daily. 90 tablet 3 11/02/2022 09/13/2023 Discontinued Start: 08-02-2020 End: 11-07-2021 take 1 tablet by mouth once daily Ferrous Gluconate 256 mg (28 mg iron) tablet Discontinued 256 mg PO DAILY August 02, 2020 12:00am September 10, 2020 1:41pm take 1 tablet by johny th once daily ferrous gluconate 324 mg (37.5 mg iron) tablet Take 324 mg by mouth once daily. Active Comment on above: 256 mg once daily. Take 1 tablet by johny th once daily. 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 30 tablet 12/20/2023 12/19/2024 Active Comment on above: Take 1 tablet by johny th once daily. furosemide 40 mg oral tablet (20 sources) Loop Diuretic Start: 11-11-2021 End: 09-03-2024 take 1 tablet by mouth once daily Furosemide 40 mg tablet Active 40 mg PO DAILY September 03, 2024 12:00am water pill Start: 10-24-2021 End: 11-11-2021 take 1 tablet by mouth every other day Furosemide 40 mg tablet Discontinued 40 mg PO every other day 90 October 24, 2021 1:33pm November 11, 2021 12:23pm Start: 11-08-2020 End: 03-25-2021 Furosemide 40 mg tablet Disc ontinued 20 mg PO DAILY November 08, 2020 11:01am March 25, 2021 12:17pm Start: 11-08-2020 End: 03-25-2021 take 20 mg by mouth once daily Furosemide Discontinued 20 MG PO DAILY November 08, 2020 11:01am March 25, 2021 12:17pm Start: 06-14-2020 End: 10-24-2021 take 1 tablet by mouth once daily Furosemide 40 mg tablet Discontinued 40 mg PO DAILY March 25, 2021 12:52pm October 24, 2021 1:33pm Comment on above: Take 40 mg by mouth once daily. gabapentin 300 mg oral capsule (20 sources) Anti-epileptic Agent Start: 10-27-2021 End: 11-28-2025 take 1 capsule by mouth twice daily gabapentin (NEURONTIN) 300 mg capsule Indications: Diabetic polyneuropathy associated with type 2 diabetes mellitus (HCC) Take 1 capsule by mouth two times a day. 60 capsule 11/28/2024 11/28/2025 Active Start: 10-16-2021 End: 11-17-2022 take 3 capsules by mouth twice daily Gabapentin 100 mg capsule Discontinued 300 mg PO TWICE A DAY October 16, 2021 10:36am November 17, 2022 12:03pm Start: 10-16-2021 End: 11-17-2022 take 300 mg by mouth twice daily Gabapentin Discontinu ed 300 MG PO TWICE A DAY October 16, 2021 10:36am November 17, 2022 12:03pm Start: 10-17-2020 take 100 mg by mouth twice yadira ly 100 mg, Oral, 2 TIMES DAILY, First dose on [place] 10/17/20 at 2100 Start: 09-30-2020 End: 10-25-2021 take 1 capsule by mouth twice daily gabapentin (NEURONTIN) 300 mg capsule Take 1 capsule by mouth twice daily. 60 capsule 11 09/30/2020 10/25/2021 Discontinued Start: 06-21-2020 End: 10-16-2021 take 1 capsule by mouth twice daily Gabapentin 100 mg capsule Discontinued 100 mg PO TWICE A DAY June 21, 2020 1:00am October 16, 2021 10:36am Start: 03-24-2018 End: 06-21-2020 take 1 capsule by mouth twice daily Gabapentin 300 mg capsule Discontinued 300 mg PO TWICE A DAY March 24, 2018 1:00am June 21, 2020 12:15pm NERVE PAIN Start: 03-23-2017 take 1 tablet by johny three times daily GABAPENTIN 300 MG CAPS One tablet by mouth three times daily GABAPENTIN [id number] Macey Greco RN Comment on above: Take 1 capsule by mo [facility] twice daily. linagliptin 5 mg oral tablet (1 source) Dipeptidyl Peptidase 4 Inhibitor Start: linagliptin (TRADJENTA) tablet 5 mg LORazepam 0.5 mg oral tablet (20 sources) Benzodiazepine Start: 025 End: take 1 tablet by mouth every four hours as needed Lorazepam 0.5 mg Tablet Active 0.5 mg PO Q4H as needed for aggitation & restlessness September 03, 2024 12:00am mecobalamin 1 mg chewable tablet (1 source) Start: take 1 tablet by mouth once daily Mecobalamin (Vitamin B12) 1,000 mcg tablet,chewable Active 1000 ug PO DAILY November 16, 2023 12:00[facility] metFORMIN hydrochloride 500 mg extended release oral tablet (20 sources) Biguanide Start: 024 End: 026 take 1 tablet by mouth twice daily before mealtime metFORMIN ER (GLUCOPHAGE XR) 500 mg 24 hr tablet Indications: Diabetic polyneuropathy associated with type 2 diabetes mellitus (HCC) Take 1 tablet by mouth two times a day before meals. 180 tablet 3 06/02/2024 06/02/2025 Active Start: 12-29-2022 take 4 tablets by mo uth once daily at breakfast metFORMIN ER (GLUCOPHAGE XR) 500 mg 24 hr tablet Take 4 tablets by mouth daily with breakfast. 120 tablet 11 12/29/2022 Active Start: 12-08-2021 take 4 tablets by mo uth once daily at breakfast metFORMIN ER (GLUCOPHAGE XR) 500 mg 24 hr tablet Take 4 tablets by mouth daily with breakfast. 120 tablet 11 12/08/2021 Active Start: 12-09-2020 End: 12-06-2021 take 4 tablets by mouth once daily at breakfast metFORMIN ER (GLUCOPHAGE XR) 500 mg 24 hr tablet Take 4 tablets by mouth daily with breakfast. 120 tablet 11 12/09/2020 12/06/2021 Discontinued Start: 10-17-2020 End: 10-17-2020 take 2 tablets by mouth once daily at breakfast metFORMIN (GLUCOPHAGE) 1000 MG tablet Take 2 tablets by mouth daily (with breakfast) Resume 10/18/2020 60 tablet 3 10/17/2020 Active Start: 01-22-2020 End: 11-16-2023 Metformin 500 MG tablet exte nded release 24 hr Discontinued 2000 mg PO WITH BREAKFAST 0 0 January 24, 2020 12:21pm November 16, 2023 11:03am DM resume 01/27/2020 Start: 01-22-2020 End: 01-24-2020 take 2000 mg by mouth at breakfast Metformin Active 2000 MG PO WITH BREAKFAST 0 January 24, 2020 12:21pm resume 01/27/2020 Start: 11-22-2019 End: 12-07-2020 take 4 tablets by mouth once daily at breakfast metFORMIN ER (GLUCOPHAGE XR) 500 mg 24 hr tablet Take 4 tablets by mouth daily with breakfast. 120 tablet 11 11/22/2019 12/07/2020 Discontinued Start: 01-09-2014 take 3 tablets by mo uth once daily at breakfast METFORMIN HCL 1000 MG TABS Three tablets by mouth daily with breakfast METFORMIN HCL [id number] Macey Greco RN Start: 01-09-2014 take 1 tablet by [facility] twice daily METFORMIN HCL 1000 MG TABS One tablet by mouth twice daily METFORMIN HCL [id number] Shanna Gagnon Start: 01-09-2014 METFORMIN HCL 500 MG TABS four tablets with breakfast METFORMIN HCL [id number] John Herndon MD Comment on above: Take 4 tablets by [facility] daily with breakfast. Take 1 tablet by [facility] two times a day before meals. 2 ml ondansetron 2 mg/ml injection (1 source) Serotonin-3 Receptor Antagonist Start: 10-16-2020 ondansetron (ZOFRAN) injection 4 mg pantoprazole 40 mg delayed release oral tablet (1 source) Proton Pump Inhibitor Start: 10-16-2020 pantoprazole (PROTONIX) tablet 40 mg perflutren lipid microspheres (DEFINITY) injection 1.65 mg (2 sources) Start: 10-16-2020 End: 10-19-2020 perflutren lipid microspheres (DEFINITY) injection 1.65 mg Start: 10-16-2020 End: 10-19-2020 perflutren lipid microsphere s (DEFINITY) injection 1.65 mg petrolatum 780 mg/ml / zinc oxide 100 mg/ml topical cream (9 sources) Start: 11-30-2024 End: 05-29-2025 zinc oxide-white petrolatum (BILL MOIST BARRIER-ZINC) 10-78 % crea Indications: Pressure injury of sacral region, stage 2 (HCC) Apply to affected area three times a day as needed (to buttock). 99 g 2 11/30/2024 05/29/2025 Active rivastigmine 1.5 mg oral capsule (20 sources) Start: 05-16-2024 End: 06-01-2024 take 1 capsule by mouth twice daily at mealtime rivastigmine tartrate (EXELON) 1.5 mg capsule Indications: Parkinson's disease with dyskinesia, unspecified whether manifestations fluctuate (HCC) TAKE 1 CAPSULE BY MOUTH 2 TIMES A DAY WITH MEALS 135 capsule 3 06/01/2024 Active Saw Misenheimer 160 MG CAPS (3 sources) take 1 capsule by mouth once daily Saw Misenheimer 160 MG CAPS Take by mouth daily 0 Active sertraline 50 mg oral tablet (20 sources) Serotonin Reuptake Inhibitor Start: 02-20-2022 End: 08-06-2024 take 1 tablet by mouth once daily sertraline (ZOLOFT) 50 mg tablet Indications: Fatigue, unspecified type , Anxiety with depression Take 1 tablet by mouth once daily. 90 tablet 3 08/07/2024 Active Start: 01-21-2022 take 0.5 tablet by m out once daily, then take 1 tablet by mouth once daily sertraline (ZOLOFT) 50 mg tablet Indications: Fatigue, unspecified type , Anxiety with depression Take 1/2 tab once a day orally for one week then 1 tab once a day 30 tablet 5 01/21/2022 Active Comment on above: Take 1/2 tab once a day orally for one week then 1 tab once a day Take 1 tablet by johny once daily. SITagliptin 50 mg oral tablet (20 sources) Dipeptidyl Peptidase 4 Inhibitor Start: 4 End: 6 take 1 tablet by mouth once daily SITagliptin phosphate (JANUVIA) 50 mg tablet Indications: Diabetic polyneuropathy associated with type 2 diabetes mellitus (HCC) Take 1 tablet by mouth once daily. 90 tablet 3 06/01/2024 06/01/2025 Active Start: 03-24-2017 End: 11-16-2023 take 1 tablet by mouth once daily Sitagliptin Phosphate (Januvia) 100 mg tablet Discontinued 100 mg PO DAILY March 24, 2018 1:00am November 16, 2023 10:59am DM Comment on above: Take 1 tablet by johny th once daily. 3 ml sodium chloride 9 mg/ml injection (2 sources) Start: 1 End: 1 sodium chloride flush 0.9 % injection 5-40 mL tamsulosin hydrochloride 0.4 mg oral capsule (20 sources) alpha-Adrenergic Taj Start: 4 End: 6 take 2 capsules by mouth once daily tamsulosin (FLOMAX) 0.4 mg Indications: Benign prostatic hyperplasia without lower urinary tract symptoms Take 2 capsules by mouth once daily. 180 capsule 3 06/01/2024 06/01/2025 Active Start: 03-24-2018 End: 04-24-2024 take 1 capsule by mouth once daily at bedtime tamsulosin (FLOMAX) 0.4 mg Take 1 capsule by mouth daily at bedtime. 90 capsule 3 06/02/2023 09/17/2023 Discontinued Comment on above: TAKE ONE CAPSULE BY MOUTH DAILY AT BEDTIME Take 1 capsule by mo [facility] daily at bedtime. terbinafine hydrochloride 10 mg/ml topical cream (11 sources) Allylamine Antifungal Start: 5 End: terbinafine HCl (LAMISIL) 1 % cream Indications: Tinea corporis Apply to affected area two times a day. 4 GM each leg 2 x day 56.8 g 1 11/28/2024 12/28/2024 Active vitamin b12 1 mg oral capsule (20 sources) Vitamin B12 Start: 0 take 1000 ug by mouth once daily Cyanocobalamin (Vitamin B-12) Active 1000 MCG PO DAILY February 09, 2020 10:58am Start: 10-06-2018 take 1 tablet by johny once daily cyanocobalamin (VITAMIN B-12) 1,000 mcg tab Indications: Anemia, unspecified type Take 1 tablet by mouth once daily. 30 tablet 11 10/06/2018 Active Start: 03-23-2017 CYANOCOBALAMIN 1000 MCG/ML SOLN one injection monthly CYANOCOBALAMIN [id number] Macey Greco RN vitamin B-12 (CY ANOCOBALAMIN) 100 MCG tablet Take 50 mcg by mouth daily 0 Active Comment on above: Take 1 tablet by johny th once daily. Completed/Discontinued Medications Medication Drug Class(es) Dates Sig (Normalized) Sig (Original) [id number] 200 actuat albuterol 0.09 mg/actuat metered dose inhaler (5 sources) beta2-Adrenergic Agonist Start: 02-14-2021 End: 11-07-2021 take 2 puff(s) by inhalation every four hours as needed for wheezing albuterol HFA (PROVENTIL HFA, VENTOLIN HFA) 90 mcg/actuation inhaler Inhale 2 Puffs as instructed every 4 hours as needed for wheezing/shortness of breath. 8 g 02/14/2021 11/07/2021 Discontinued Comment on above: Inhale 2 Puffs as in structed every 4 hours as needed for wheezing/shortness of breath. apixaban 5 mg oral tablet (20 sources) Factor Xa Inhibitor Start: 05-22-2024 End: 10-25-2024 take 0.5 tablet by mouth twice daily apixaban (ELIQUIS) 5 mg tab(s) Indications: Paroxysmal atrial fibrillation (HCC) Take 1/2 tablet by mouth two times a day 30 tablet 2 06/01/2024 10/25/2024 Discontinued (Not on Formulary) Start: 04-27-2024 End: 10-06-2024 take 2.5 mg by mouth twice daily Apixaban (Eliquis) 5 mg Tablet Discontinued 2.5 mg PO TWICE A DAY 30 30 0 May 16, 2024 1:00am October 06, 2024 3:57pm cholecalciferol 1.25 mg oral capsule (20 sources) Vitamin D Start: 08-26-2020 End: 08-09-2024 take 1 capsule by mouth every week Cholecalciferol (Vitamin D3) 1,250 mcg (50,000 unit) capsule Discontinued 21077 U PO EVERY WEEK February 20, 2022 12:00am August 09, 2024 1:05pm [facility] jed Comment on above: Take 1 capsule by [facility] one time a week. cholecalciferol, vitamin D3, (VITAMIN D3 ORAL) (17 sources) End: 09-25-2024 take 1 tablet by mouth once daily cholecalciferol, vitamin D3, (VITAMIN D3 ORAL) Take 1 tablet by mouth once daily. 09/25/2024 Discontinued (Other) take 1 tablet by mouth once melyssa y cholecalciferol, vitamin D3, (VITAMIN D3 ORAL) Take 1 tablet by mouth once daily. Active CINNAMON TABS (6 sources) Non-Standardized Food Allergenic Extract Start: 01-09-2014 take 1 tablet by mouth once daily CINNAMON TABS One tablet by mouth daily CINNAMON TABS [id number] Macey Greco RN Start: 01-09-2014 CINNAMON TABS as directed CINNAMON TABS [id number] Shanna Gagnon clopidogrel 75 mg oral tablet (15 sources) [id number] Platelet Inhibitor Start: 08-02-2020 End: 03-17-2021 take 1 tablet by mouth once daily Clopidogrel (Plavix) 75 mg tablet Discontinued 75 mg PO DAILY 06 11August 02, 2020 12:00am March 17, 2021 3:39pm 0.4 ml darbepoetin santos 0.5 mg/ml prefilled syringe (4 sources) Erythropoiesis- stimulating Agent Start: 11-01-2024 End: 11-01-2024 inject 1 dose by subcutaneous injection once 200 mcg, SUBCUTANEOUS, ONCE, 1 dose, On Wed11/01/24 at 0830, Protect from light REFRIGERATE Start: 07-10-2024 End: 07-10-2024 inject 1 dose by subcutaneous injection once 200 mcg, SUBCUTANEOUS, ONCE, 1 dose, On Wed07/10/24 at 1130, Protect from light REFRIGERATE Start: 04-17-2024 End: 04-17-2024 inject 1 dose by subcutaneous injection once 200 mcg, SUBCUTANEOUS, ONCE, 1 dose, On Wed04/17/24 at 1430, Protect from light REFRIGERATE Start: 02-07-2024 End: 02-07-2024 inject 1 dose by subcutaneous injection once 200 mcg, SUBCUTANEOUS, ONCE, 1 dose, On Wed02/07/24 at 1100, Protect from light REFRIGERATE docusate sodium 100 mg oral capsule (1 source) Start: 03-04-2017 End: 11-28-2020 take 1 capsule by mouth once daily docusate sodium (COLACE) 100 mg capsule Take 1 capsule by mouth once daily. 03/04/2017 11/28/2020 Discontinued (Course of therapy completed) doxycycline hyclate 100 mg oral tablet (1 source) Tetracycline-cla ss Drug Start: 02-14-2021 End: 02-24-2021 take 1 tablet by mouth twice daily doxycycline (VIBRA-TABS) 100 mg tablet Take 1 tablet by mouth twice daily for 10 days. 20 tablet 02/14/2021 02/24/2021 ergocalciferol 1.25 mg oral capsule (14 sources) Provitamin D2 Compound Start: 01-22-2020 End: 02-20-2022 Ergocalciferol (Vitamin D2) 50,000 UNIT capsule Discontinued [id number] U PO TU January 22, 2020 12:00am February 20, 2022 10:35am SUPPLEMENT take 1.25 mg by mouth every week vitamin D (ERGOCALCIFEROL) 1.25 MG (05486 UT) CAPS capsule Take 50,000 Units by mouth once a week 0 Active fish oil (3 sources) Start: 01-09-2014 take 1 tablet by mouth once daily [facility] FISH OIL 1200 MG CAPS One tablet by mouth daily OMEGA-3 FATTY ACIDS [id number] Shanna Gagnon glimepiride 4 mg oral tablet (20 sources) Sulfonylurea Start: 01-09-2014 End: 09-25-2024 take 1 tablet by mouth twice daily Glimepiride 4 mg tablet Discontinued 4 mg PO TWICE A DAY March 24, 2018 1:00am April 27, 2024 12:31pm DM Start: 01-09-2014 take 1 tablet by johny th once daily GLIMEPIRIDE 4 MG TABS One tablet by mouth daily GLIMEPIRIDE [id number] Shanna Gagnon Comment on above: Take 1 tablet by johny th twice daily with meals. glucosamine hydrochloride 750 mg oral tablet (11 sources) Start: 0 End: 1 take 1 tablet by mouth twice daily at mealtime Glucosamine Hcl 750 mg tablet Discontinued 750 mg PO TWICE A DAY February 09, 2020 12:00am June 21, 2020 12:17pm administer with meals Inhalational Spacing Device (1 source) Start: 1 End: Inhalational Spacing Device 1 Device one time only for 1 dose. 1 Each 02/14/2021 02/14/2021 iron sucrose iv piggyback 200 mg in NaCl 0.9% 100 mL (VENOFER) (5 sources) Start: 4 End: iron sucrose iv piggyback 200 mg in NaCl 0.9% 100 mL (VENOFER) Start: 12-20-2023 End: 12-20-2023 iron sucrose iv piggyback 20 0 mg in NaCl 0.9% 100 mL (VENOFER) Start: 12-17-2023 End: 12-17-2023 iron sucrose iv piggyback 20 0 mg in NaCl 0.9% 100 mL (VENOFER) Start: 12-15-2023 End: 12-15-2023 iron sucrose iv piggyback 20 0 mg in NaCl 0.9% 100 mL (VENOFER) Start: 12-13-2023 End: 12-13-2023 iron sucrose iv piggyback 20 0 mg in NaCl 0.9% 100 mL (VENOFER) iv contrast (will be provided with radiology test) (1 source) Start: 12-10-2021 End: 12-10-2021 iv contrast (will be provided with radiology test) Indications: Fatigue, unspecified type , 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 Discontinue saline lock post exam. If Pt. has a central line or IVAD, may access for administration according to line specific nursing protocol. Once exam is complete flush line and de-access according to line specific nursing protocol in the CT contrast administration guidelines link. 1 Each 0 12/10/2021 12/10/2021 Discontinued Comment on above: CT ABD/PEL -Inject, intravenously, once for 1 dose.No IV access, insert saline lock prior to the beginning of sedation, infusion, injection of imaging exam. Discontinue saline lock post exam. If Pt. has a central line or IVAD, may access for administration according to line specific nursing protocol. Once exam is complete flush line and de-access according to line specific nursing protocol in the CT contrast administration guidelines link. lisinopril 5 mg oral tablet (20 sources) Angiotensin Converting Enzyme Inhibitor Start: 11-08-2020 End: 11-07-2021 take 2.5 mg by mouth once daily Lisinopril 5 mg tablet Discontinued 2.5 mg PO DAILY November 08, 2020 11:01am March 25, 2021 12:16pm Start: 11-08-2020 End: 03-25-2021 take 2.5 mg by mouth once daily Lisinopril Discontinue d 2.5 MG PO DAILY November 08, 2020 11:01am March 25, 2021 12:16pm Start: 06-21-2020 End: 11-08-2020 take 1 tablet by mouth once daily Lisinopril 5 mg tablet Discontinued 5 mg PO DAILY 06 11June 21, 2020 1:00am November 08, 2020 11:03am Start: 01-09-2014 End: 03-23-2017 take 1 tablet by mouth once daily LISINOPRIL 2.5 MG TABS One tablet by mouth daily LISINOPRIL [id number] Macey Greco RN Comment on above: Take 2.5 mg by mouth once daily. magnesium sulfate 0.0277 meq/ml / potassium sulfate 0.0374 meq/ml / sodium sulfate 0.257 meq/ml oral solution (5 sources) Start: 11-28-2020 End: 11-07-2021 sodium sulfate-potassium sulfate-magnesium sulfate (SUPREP BOWEL PREP KIT) 17.5-3.13-1.6 gram oral liquid Indications: Change in bowel habit , Anemia, unspecified type Please follow instructions provided by doctors office 1 Kit 11/28/2020 11/07/2021 Discontinued Start: 11-28-2020 End: 11-07-2021 sodium sulfate-potassium sul fate-magnesium sulfate (SUPREP BOWEL PREP KIT) 17.5-3.13-1.6 gram oral liquid Indications: Change in bowel habit , Anemia, unspecified type Please follow instructions provided by doctors office 1 Kit 0 11/28/2020 11/07/2021 Discontinued Start: 11-28-2020 sodium sulfate -potassium sulfate-magnesium sulfate (SUPREP BOWEL PREP KIT) 17.5-3.13-1.6 gram oral liquid Indications: Change in bowel habit , Anemia, unspecified type Please follow instructions provided by doctors office 1 Kit 0 11/28/2020 Active Comment on above: Please follow instru ctions provided by doctors office 24 hr metoprolol succinate 50 mg extended release oral tablet (20 sources) beta-Adrenergic Taj Start: End: take 1 tablet by mouth twice daily metoprolol succinate ER (TOPROL XL) 50 mg 24 hr tablet Indications: Paroxysmal atrial fibrillation (HCC) take 1 tablet by mouth 2 times a day 180 tablet 1 12/11/2024 12/26/2024 Discontinued (Course of therapy completed) Start: 01-24-2020 End: 06-01-2024 take 1 tablet by mouth twice daily metoprolol tartrate, short acting, (LOPRESSOR) 50 mg tablet Take 1 tablet by mouth two times a day. 180 tablet 3 03/06/2024 06/01/2024 Discontinued (Discontinued by another Health Care Provider) Start: 03-24-2018 End: 01-24-2020 take 1 tablet by mouth once daily Metoprolol Succinate (Toprol Xl) 50 mg tablet extended release 24 hr Discontinued 50 mg PO DAILY March 24, 2018 1:00am January 24, 2020 12:21pm HEART Start: 01-09-2014 take 1 tablet by johny th once daily TOPROL XL 50 MG [id number] One tablet by mouth daily METOPROLOL SUCCINATE [id number] Shanan Gagnon Comment on above: Take 1 tablet by johny th twice daily. Take 1 tablet by johny th two times a day. neuro vitamin (11 sources) Start: 02-09-2020 End: 06-21-2020 neuro vitamin Discontinued PO February 09, 2020 10:58am June 21, 2020 12:17pm Start: 02-09-2020 End: 06-21-2020 neuro vitamin Discontinued P O 0 February 09, 2020 12:00am June 21, 2020 12:17pm Start: 02-09-2020 End: 06-21-2020 neuro vitamin Discontinued P O February 08, 2020 11:00pm June 21, 2020 11:17am Start: 02-09-2020 End: 06-21-2020 neuro vitamin Discontinued P O February 09, 2020 12:00am June 21, 2020 12:17pm phenazopyridine hydrochloride 200 mg oral tablet (5 sources) Start: 03-23-2017 End: 03-24-2017 take 1 tablet by mouth twice daily PYRIDIUM 200 MG TABS One tablet by mouth twice daily PHENAZOPYRIDINE HCL [id number] John Herndon MD pravastatin sodium 40 mg oral tablet (5 sources) HMG-CoA Reductase Inhibitor Start: 01-09-2014 End: 03-24-2017 take 1 tablet by mouth once daily PRAVASTATIN SODIUM 40 MG TABS One tablet by mouth daily PRAVASTATIN SODIUM [id number] MD steve Copeland (5 sources) Start: 11-16-2023 End: 05-16-2024 saw palmetto Discontinued 1 NMA PO DAILY November 16, 2023 11:01am May 16, 2024 8:49pm prostate Start: 11-17-2022 End: 11-16-2023 saw palmetto Discontinued PO November 17, 2022 12:00am November 16, 2023 11:03am Start: 11-17-2022 saw palmetto A ctive PO November 17, 2022 12:00am Saw Misenheimer 160 mg capsule (20 sources) Start: 02-22-2015 End: 03-27-2024 Saw Misenheimer 160 mg capsule Take 300 mg by mouth once daily. 02/22/2015 03/27/2024 Discontinued (Other) Start: 02-22-2015 Saw Misenheimer 1 60 mg capsule Take 300 mg by mouth once daily. 02/22/2015 Active Start: 02-22-2015 take 1 capsule by mo ut once daily Saw Misenheimer 160 mg capsule Take 160 mg by mouth once daily. 02/22/2015 Active Start: 02-22-2015 take 1 capsule by mo ut once daily Saw Misenheimer 160 mg capsule Take 160 mg by mouth once daily. 0 02/22/2015 Active Comment on above: Take 160 mg by mouth once daily. Saw Misenheimer (20 sources) Start: 11-08-2020 End: 11-17-2022 take 1 capsule by mouth once daily Saw Misenheimer 160 mg capsule Discontinued 300 mg PO DAILY November 08, 2020 11:03am November 17, 2022 12:05pm SUPPLEMENT Start: 11-08-2020 End: 11-17-2022 take 300 mg by mouth once daily Saw Misenheimer Discontin ued 300 MG PO DAILY November 08, 2020 11:03am November 17, 2022 12:05pm Start: 11-08-2020 take 300 mg by mouth once melyssa y Saw Misenheimer Active 300 MG PO DAILY November 08, 2020 10:03am Start: 11-08-2020 take 300 mg by mouth once melyssa y Saw Misenheimer Active 300 MG PO DAILY November 08, 2020 11:03am Start: 11-08-2020 take 320 mg by mouth once melyssa y Saw Misenheimer Active 320 MG PO DAILY November 08, 2020 11:03am Start: 08-02-2020 End: 11-08-2020 take 1 capsule by mouth once daily Saw Misenheimer 160 mg capsule Discontinued 160 mg PO DAILY August 02, 2020 11:09am November 08, 2020 11:03am SUPPLEMENT Start: 08-02-2020 End: 11-08-2020 take 160 mg by mouth once daily Saw Misenheimer Discontin ued 160 MG PO DAILY August 02, 2020 10:09am November 08, 2020 10:03am Start: 08-02-2020 End: 11-08-2020 take 160 mg by mouth once daily Saw Misenheimer Discontin ued 160 MG PO DAILY August 02, 2020 11:09am November 08, 2020 11:03am Start: 03-24-2018 End: 08-02-2020 take 160 mg by mouth twice daily Saw Misenheimer Discontinued 160 MG PO TWICE A DAY March 24, 2018 11:35am August 02, 2020 11:11am Start: 03-24-2018 End: 08-02-2020 take 1 capsule by mouth twice daily Saw Misenheimer 160 mg capsule Discontinued 160 mg PO TWICE A DAY March 24, 2018 1:00am August 02, 2020 11:11am SUPPLEMENT Start: 03-24-2018 End: 08-02-2020 take 160 mg by mouth twice daily Saw Misenheimer Discontinued 160 MG PO TWICE A DAY March 24, 2018 12:00am August 02, 2020 10:11am Start: 03-24-2018 End: 08-02-2020 take 160 mg by mouth twice daily Saw Misenheimer Discontinued 160 MG PO TWICE A DAY March 24, 2018 1:00am August 02, 2020 11:11am Start: 01-09-2014 take 1 tablet by johny th twice daily GNP SAW PALMETTO 160 MG CAPS One tablet by mouth twice daily SAW CHRISETTO (SERENOA REPENS) [id number] Shanna Gagnon valACYclovir 500 mg oral tablet (5 sources) Herpesvirus Nucleoside Analog DNA Polymerase Inhibitor, Herpes Simplex Virus Nucleoside Analog DNA Polymerase Inhibitor, Herpes Zoster Virus Nucleoside Analog DNA Polymerase Inhibitor Start: 03-23-2017 End: 03-24-2017 VALTREX 500 MG TABS as directed VALACYCLOVIR HCL [id number] John eHrndon MD Vitamin B Complex (B Complex-Vitamin B12) tablet (8 sources) Start: 02-20-2022 End: 11-17-2022 Vitamin B Complex (B Complex-Vitamin B12) tablet Discontinued 1 {tbl} PO DAILY February 20, 2022 12:00am November 17, 2022 12:08pm Start: 02-20-2022 End: 11-17-2022 take 1 tablet by mouth once daily Vitamin B Complex (B Complex-Vitamin B12) tablet Discontinued 1 TABLET PO DAILY February 20, 2022 12:00am November 17, 2022 12:08pm Start: 02-20-2022 take 1 tablet by johny th once daily Vitamin B Complex (B Complex-Vitamin B12) tablet Active 1 TABLET PO DAILY February 20, 2022 12:00am Start: 02-20-2022 take 1 tablet by johny th once daily Vitamin B Complex (B Complex-Vitamin B12) tablet Active 1 TABLET PO DAILY February 19, 2022 11:00pm Problems Active Problems Problem Classification Problem Date Documented Da te Episodic/Chronic Acute cerebrovascular disease (20 sources) Hematoma of subdural space of neuraxis; 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 10-25-2024 Chronic Anxiety disorders (20 sources) Mixed anxiety and depressive disorder; Translations: [Other specified anxiety disorders] Onset: 05-29-2022 Chronic Blindness and vision defects (3 sources) Visual impairment; Translations: [Unspecified visual loss] Onset: 01-03-2025 01-03-2025 Chronic Blindness and vision defects (1 source) Visual hallucinations; Translations: [Visual hallucinations] 04-27-2024 Episodic Cardiac dysrhythmias (20 sources) Multiple premature ventricular complexes; Translations: [Ventricular premature depolarization] Onset: 06-02-2023 04-09-2021 Chronic Comment on above: per radames 04/04/21 Chronic kidney disease (20 sources) Chronic kidney disease stage 3; Translations: [Chronic kidney disease (CKD), stage III (moderate)] Onset: 09-16-2017 Resolved: 09-17-2023 09-16-2017 Chronic Chronic kidney disease (3 sources) Chronic kidney disease; Translations: [Stage 3 chronic kidney disease, 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)] Onset: 07-28-2021 Chronic ulcer of skin (4 sources) Pressure ulcer of buttock stage 2; Translations: [Pressure ulcer of unspecified buttock, stage 2] Onset: 11-28-2024 11-28-2024 Chronic Congestive heart failure; nonhypertensive (20 sources) Symptomatic congestive heart failure; Translations: [Heart failure, unspecified] Chronic Coronary atherosclerosis and other heart disease (20 sources) Coronary atherosclerosis; Translations: [Atherosclerotic heart disease of [place] coronary artery without angina pectoris] Onset: 01-22-2020 Resolved: 09-25-2024 10-02-2020 Chronic Deficiency and other anemia (1 source) Anemia of chronic renal failure; Translations: [Anemia of chronic renal failure, stage 3a (HCC) (HCC)] 06-17-2023 Chronic Deficiency and other anemia (20 sources) Anemia; Translations: [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)] Onset: 12-02-2023 12-02-2023 Chronic Deficiency and other anemia (1 source) Anemia co-occurrent and due to chronic kidney disease stage 3; Translations: [Anemia due to stage 3a chronic kidney disease (HCC)] 08-07-2024 Chronic Deficiency and other anemia (2 sources) Anemia in chronic kidney disease; Translations: [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)] Onset: 12-02-2023 Chronic Deficiency and other anemia (16 sources) Anemia; Translations: [Anemia, unspecified] Episodic Deficiency and other anemia (4 sources) Anemia, unspecified; Translations: [Anemia, unspecified] Onset: 01-24-2025 Episodic Deficiency and other anemia (1 source) Iron deficiency anemia; Translations: [Iron deficiency anemia, unspecified] 04-27-2024 Episodic Deficiency and other anemia (2 sources) Deficiency and other anemia; Translations: [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)] Onset: 12-02-2023 Delirium, dementia, and amnestic and other cognitive disorders (6 sources) Senile asthenia; Translations: [Age-related physical debility] Onset: 06-01-2024 06-01-2024 Chronic Diabetes mellitus with complications (20 sources) Renal disorder due to type 2 diabetes mellitus; Translations: [Polyneuropathy due to type 2 diabetes mellitus] Onset: 04-03-2014 Resolved: 12-18-2014 03-23-2017 Chronic Diabetes mellitus without complication (1 source) Diabetes mellitus without complication; Translations: [Type 2 diabetes mellitus with stage 3 chronic kidney disease, without long-term current use of insulin, 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)] Onset: 07-28-2021 Disorders of lipid metabolism (20 sources) Hyperlipidemia; Translations: [Mixed hyperlipidemia] Onset: 06-11-2005 03-23-2017 Chronic Essential hypertension (20 sources) Essential hypertension; Translations: [Essential (primary) hypertension] Onset: 05-30-2012 10-02-2020 Chronic Fracture of upper limb (2 sources) Closed fracture of upper end of humerus; Translations: [Other nondisplaced fracture of upper end of unspecified humerus, initial encounter for closed fracture] 03-30-2024 Episodic Heart valve disorders (20 sources) Nonrheumatic aortic (valve) stenosis; Translations: [Aortic valve stenosis] Onset: 03-24-2017 03-24-2017 Chronic Comment on above: Aortic valve replace ment with a 29 mm bioprosthetic valve. 10/16/20 Hyperplasia of prostate (20 sources) Benign prostatic hyperplasia; Translations: [Benign prostatic hyperplasia with lower urinary tract symptoms] Onset: 08-19-2015 08-19-2015 Chronic Hypertension with complications and secondary hypertension (20 sources) Chronic kidney disease stage 3 due to hypertension; Translations: [Hypertensive chronic kidney disease with stage 1 through stage 4 chronic kidney disease, or unspecified chronic kidney disease] Onset: 07-28-2021 07-28-2021 Chronic Joint disorders and dislocations; trauma-related (6 sources) Derangement of knee; Translations: [Unspecified internal derangement of left knee] Onset: 01-09-2014 Resolved: 03-23-2017 01-09-2014 Chronic Lymphadenitis (4 sources) Disorder of intra-abdominal lymph nodes; Translations: [Localized enlarged lymph nodes] Episodic Mood disorders (2 sources) Depressive disorder; Translations: [Depression, unspecified depression type] 12-29-2023 Chronic Comment on above: OCC Non-Hodgkin`s lymphoma (20 sources) Malignant lymphoma in remission; Translations: [Non-Hodgkin lymphoma, unspecified, unspecified site] Onset: 07-01-2006 Resolved: 03-27-2024 07-28-2021 Chronic Comment on above: 2006 CHEMO AND RADIA TION Nutritional deficiencies (20 sources) Vitamin D deficiency; Translations: [Vitamin D deficiency, unspecified] Onset: 07-07-2018 07-07-2018 Chronic Open wounds of extremities (3 sources) Laceration without foreign body of left upper arm, initial encounter; Translations: [Skin tear of left upper extremity] Onset: 01-03-2025 03-24-2024 Episodic Open wounds of extremities (1 source) Laceration without foreign body of right upper arm, initial encounter; Translations: [Skin tear of right upper extremity] 03-24-2024 Episodic Osteoarthritis (6 sources) Osteoarthritis of knee; Translations: [Osteoarthritis of knee, unspecified] Onset: 02-06-2014 Resolved: 03-23-2017 02-06-2014 Chronic Other and ill-defined heart disease (20 sources) Left ventricular cardiac dysfunction; Translations: [Heart disease, unspecified] Onset: 10-02-2020 10-02-2020 Chronic Other and ill-defined heart disease (1 source) Heart disease, unspecified; Translations: [LV dysfunction] Onset: 06-02-2023 Chronic Other and unspecified benign neoplasm (2 sources) Benign neoplasm of colon, unspecified; Translations: [Benign neoplasm of colon] Episodic Other circulatory disease (4 sources) History of transient ischemic attack; Translations: [Personal history of transient ischemic attack (TIA), and 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 deficits] Onset: 01-03-2025 01-03-2025 Episodic Other circulatory disease (1 source) Personal history of transient ischemic attack (TIA), and 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 deficits; Translations: [History of TIA (transient ischemic attack)] Onset: 01-03-2025 Episodic Other connective tissue disease (1 source) Paraparesis; Translations: [Other symptoms and signs involving the musculoskeletal system] 01-26-2023 Episodic Other connective tissue disease (2 sources) Neurological symptom; Translations: [Other symptoms and signs involving the nervous system] 01-26-2023 Episodic Other connective tissue disease (2 sources) Other symptoms and signs involving the musculoskeletal system; Translations: [Other musculoskeletal symptoms referable to limbs] 09-06-2023 Episodic Other connective tissue disease (2 sources) Recurrent falls ; Translations: [Repeated falls] 05-27-2024 Episodic Other fractures (1 source) Closed fracture of multiple right ribs; Translations: [Multiple fractures of ribs, right side, initial encounter for closed fracture] 01-26-2024 Episodic Other fractures (1 source) Open fracture of multiple ribs; Translations: [Multiple fractures of ribs, right side, subsequent encounter for fracture with routine healing] 02-02-2024 Episodic Other gastrointestinal disorders (20 sources) Malabsorption - iron; Translations: [Intestinal malabsorption, unspecified] Onset: 12-02-2023 12-02-2023 Chronic Other gastrointestinal disorders (2 sources) Intestinal malabsorption, unspecified; Translations: [Iron malabsorption (HCC)] Onset: 12-02-2023 Chronic Other gastrointestinal disorders (8 sources) Constipation; Translations: [Constipation, unspecified] 12-16-2021 Episodic Other gastrointestinal disorders (2 sources) Constipation, unspecified; Translations: [Constipation, unspecified] Episodic Other gastrointestinal disorders (2 sources) Diarrhea; Translations: [Diarrhea, unspecified] 11-07-2020 Episodic Other hereditary and degenerative nervous system conditions (20 sources) Essential tremor; Translations: [Essential tremor] Onset: 05-30-2012 05-30-2012 Chronic Other hereditary and degenerative nervous system conditions (1 source) Essential tremor; Translations: [Tremor, essential] Onset: 05-30-2012 Chronic Other injuries and conditions due to external causes (1 source) Abrasion; Translations: [Other injury of unspecified body region, initial encounter] 11-26-2022 Episodic Other injuries and conditions due to external causes (1 source) Injury of head; Translations: [Unspecified injury of head, initial encounter] 03-24-2024 Episodic Other lower respiratory disease (3 sources) Cough; Translations: [Acute cough] Episodic Other lower respiratory disease (2 sources) Rib pain; Translations: [Pleurodynia] 01-26-2024 Episodic Other lower respiratory disease (1 source) Cough; Translations: [Acute cough] 07-09-2022 Episodic Other male genital disorders (1 source) Phimosis; Translations: [Phimosis] Episodic Other nervous system disorders (3 sources) Neuropathy; Translations: [Polyneuropathy, unspecified] 09-06-2023 Chronic Other nervous system disorders (1 source) Polyneuropathy, unspecified; Translations: [Neuropathy] Onset: 01-30-2025 Chronic Other nervous system disorders (1 source) Other specified disorders of brain; Translations: [Subdural fluid collection] Onset: 10-25-2024 Chronic Other nervous system disorders (7 sources) Abnormal gait; Translations: [Unspecified abnormalities of gait and mobility] 09-06-2023 Episodic Other nervous system disorders (1 source) Unspecified abnormalities of gait and mobility; Translations: [Abnormality of gait] Onset: 01-30-2025 Episodic Other nutritional; endocrine; and metabolic disorders (20 sources) Body mass index 40+ - severely obese; Translations: [Morbid (severe) obesity due to excess calories] Onset: 06-02-2023 Resolved: 09-25-2024 Chronic Other nutritional; endocrine; and metabolic disorders (2 sources) Severe obesity; Translations: [Morbid (severe) obesity due to excess calories] 09-06-2023 Chronic Other nutritional; endocrine; and metabolic disorders (4 sources) Obese class II; Translations: [Obesity, Class II, BMI 35-39.9] Onset: 01-03-2025 01-03-2025 Chronic Other nutritional; endocrine; and metabolic disorders (1 source) Body mass index (BMI) 39.0-39.9, adult; Translations: [Class 2 obesity with body mass index (BMI) of 39.0 to 39.9 in adult, unspecified obesity type, unspecified whether serious comorbidity present] Onset: 09-25-2024 Chronic Other nutritional; endocrine; and metabolic disorders (1 source) Morbid (severe) obesity due to excess calories; Translations: [Class 3 severe obesity with body mass index (BMI) of 40.0 to 44.9 in adult, unspecified obesity type, unspecified whether serious comorbidity present (HCC)] Onset: 03-27-2024 Chronic Other upper respiratory infections (2 sources) Acute upper respiratory infection; Translations: [Acute upper respiratory infection, unspecified] Episodic Parkinson`s disease (20 sources) Parkinson's disease; Translations: [Parkinson's disease] Onset: 09-17-2023 11-23-2022 Chronic Parkinson`s disease (5 sources) Parkinson`s disease; Translations: [Parkinson's disease, unspecified whether dyskinesia present, unspecified whether manifestations fluctuate (HCC)] Onset: 09-17-2023 Residual codes; unclassified (20 sources) Obstructive sleep apnea syndrome; Translations: [Obstructive sleep apnea (adult) (pediatric)] Onset: 04-01-2022 Chronic Residual codes; unclassified (20 sources) Hypersomnia; Translations: [Hypersomnia, unspecified] Onset: 06-02-2023 02-20-2022 Chronic Residual codes; unclassified (4 sources) Obstructive sleep apnea (adult) (pediatric); Translations: [Obstructive sleep apnea (adult)(pediatric)] Onset: 09-30-2022 Chronic Residual codes; unclassified (2 sources) Hypersomnia, unspecified; Translations: [Hypersomnia, unspecified] Chronic Residual codes; unclassified (20 sources) Treatment-emergent central sleep apnea; Translations: [Other sleep apnea] Onset: 11-08-2023 11-23-2022 Chronic Residual codes; unclassified (1 source) Restlessness and agitation; Translations: [Restlessness and agitation] Onset: 12-12-2024 Chronic Residual codes; unclassified (1 source) Other sleep apnea; Translations: [Treatment-emergent central sleep apnea] Onset: 11-08-2023 Chronic Residual codes; unclassified (11 sources) Edema; Translations: [Edema, unspecified] 06-11-2021 Episodic Residual codes; unclassified (5 sources) Altered mental status; Translations: [Altered mental status, unspecified] 10-20-2024 Episodic Residual codes; unclassified (1 source) Hallucinations; Translations: [Hallucinations, unspecified] 05-05-2024 Episodic Residual codes; unclassified (1 source) Disorientation, unspecified; Translations: [Confusion] Onset: 12-12-2024 Episodic Spondylosis; intervertebral disc disorders; other back problems (3 sources) Degeneration of lumbar intervertebral disc; Translations: [Other intervertebral disc degeneration, lumbar region] 01-26-2023 Chronic Spondylosis; intervertebral disc disorders; other back problems (5 sources) Disorder of right sciatic nerve; Translations: [Sciatica, right side] Onset: 01-30-2025 09-06-2023 Episodic Superficial injury; contusion (7 sources) Contusion of lower leg; Translations: [Contusion of left upper arm, initial encounter] Onset: 01-09-2014 Resolved: 03-23-2017 01-10-2014 Episodic Transient cerebral ischemia (20 sources) Transient cerebral ischemia; Translations: [Transient cerebral ischemic attack, unspecified] Onset: 04-18-2009 Resolved: 01-03-2025 04-18-2009 Chronic Unclassified (4 sources) Body mass index (BMI) 40.0-44.9, adult; Translations: [Body mass index (BMI) 40.0-44.9, adult] Onset: 03-23-2017 03-23-2017 Chronic Unclassified (1 source) Dementia due to Parkinson's disease; Translations: [Dementia due to Parkinson's disease] 04-27-2024 Chronic Unclassified (3 sources) Long-term drug therapy; Translations: [Other buttermaker helper (current) drug therapy] Onset: 03-23-2017 03-23-2017 Unclassified (1 source) Mild dementia without behavioral disturbance, psychotic disturbance, mood disturbance, or anxiety, unspecified dementia type (HCC); Translations: [Mild dementia without behavioral disturbance, psychotic disturbance, mood disturbance, or anxiety, unspecified dementia type (HCC)] Onset: 01-03-2025 Unclassified (1 source) 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); Translations: [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)] Onset: 07-28-2021 Unclassified (1 source) Obesity, Class II, BMI 35-39.9; Translations: [Obesity, Class II, BMI 35-39.9] Onset: 01-03-2025 Unclassified (1 source) Lymphoma in remission; Translations: [Lymphoma in remission] Onset: 07-28-2021 Unclassified (1 source) Class 2 obesity with body mass index (BMI) of 39.0 to 39.9 in adult, unspecified obesity type, unspecified whether serious comorbidity present; Translations: [Class 2 obesity with body mass index (BMI) of 39.0 to 39.9 in adult, unspecified obesity type, unspecified whether serious comorbidity present] Onset: 09-25-2024 Unclassified (1 source) New Onset: 04-03-2024 Unclassified (1 source) Class 3 severe obesity with body mass index (BMI) of 40.0 to 44.9 in adult, unspecified obesity type, unspecified whether serious comorbidity present (HCC); Translations: [Class 3 severe obesity with body mass index (BMI) of 40.0 to 44.9 in adult, unspecified obesity type, unspecified whether serious comorbidity present (HCC)] Onset: 11-18-2024 Past or Other Problems Problem Classification Problem Date Documented Da te Episodic/Chronic Administrative/social admission (20 sources) Patient encounter status; Translations: [Other specified counseling] Onset: 2 07-30-2021 Episodic Calculus of urinary tract (20 sources) History of calculus of kidney; Translations: [Personal history of urinary calculi] Onset: 6 Resolved: 5 05-25-2016 Episodic Deficiency and other anemia (20 sources) Nutritional anemia; Translations: [Vitamin B12 deficiency anemia, unspecified] Onset: 0 02-07-2020 Episodic Deficiency and other anemia (1 source) Vitamin B12 deficiency anemia, unspecified; Translations: [Anemia due to vitamin B12 deficiency, unspecified B12 deficiency type] Onset: 0 Episodic Deficiency and other anemia (1 source) Folate deficiency anemia, unspecified; Translations: [Anemia due to folic acid deficiency, unspecified deficiency type] Onset: 1 Episodic Diabetes mellitus without complication (20 sources) Diabetes mellitus; Translations: [Type 2 diabetes mellitus without complications] Onset: 6 Resolved: 5 12-18-2014 Chronic E Codes: Fall (20 sources) Fall; Translations: [Unspecified fall, initial encounter] Onset: 4 Resolved: 4 06-11-2021 Episodic Genitourinary symptoms and ill-defined conditions (20 sources) H/O: urinary stone; Translations: [Personal history of other diseases of urinary system] Onset: 7 05-25-2016 Episodic Joint disorders and dislocations; trauma-related (6 sources) Tear of medial meniscus of knee; Translations: [Other tear of medial meniscus, current injury, unspecified knee] Onset: 4 Resolved: 7 03-23-2017 Episodic Malaise and fatigue (20 sources) Fatigue; Translations: [Other fatigue] Onset: 4 Resolved: 4 Episodic Mycoses (2 sources) Tinea corporis; Translations: [Tinea corporis] Onset: 5 11-28-2024 Episodic Nonspecific chest pain (2 sources) Chest pain; Translations: [Chest pain, unspecified] Onset: 5 09-11-2024 Episodic Nutritional deficiencies (20 sources) Cobalamin deficiency; Translations: [Deficiency of other specified B group vitamins] Onset: 7 Resolved: 3 02-25-2017 Episodic Other and unspecified benign neoplasm (20 sources) Tubular adenoma of colon; Translations: [Benign neoplasm of colon, unspecified] Onset: 4 12-16-2021 Episodic Other connective tissue disease (6 sources) Pain in lower limb; Translations: [Pain in leg, unspecified] Onset: 4 Resolved: 7 03-23-2017 Episodic Other diseases of kidney and ureters (20 sources) Hydronephrosis; Translations: [Unspecified hydronephrosis] Onset: 6 Resolved: 3 08-19-2015 Episodic Other gastrointestinal disorders (20 sources) Finding of abdomen; Translations: [Other intra-abdominal and pelvic swelling, mass and lump] Onset: 7 Resolved: 7 02-25-2017 Episodic Other gastrointestinal disorders (1 source) Diarrhea, unspecified; Translations: [Diarrhea, unspecified type] Onset: 5 Episodic Other hematologic conditions (20 sources) H/O: anemia - iron deficient; Translations: [Personal history of diseases of the blood and blood-forming organs and certain disorders involving the immune mechanism] Onset: 4 Resolved: 5 09-17-2023 Episodic Other hematologic conditions (1 source) Personal history of diseases of the blood and blood-forming organs and certain disorders involving the immune mechanism; Translations: [History of iron deficiency anemia] Onset: 4 Episodic Other lower respiratory disease (20 sources) Dyspnea on exertion; Translations: [Dyspnea, unspecified] Onset: 4 Resolved: 4 Episodic Other nervous system disorders (1 source) Acute pain due to trauma; Translations: [Acute pain of left shoulder due to trauma] Onset: 4 Episodic Other non-traumatic joint disorders (12 sources) Knee pain; Translations: [Knee joint effusion] Onset: 4 Resolved: 7 01-09-2014 Episodic Other non-traumatic joint disorders (7 sources) Pain in left shoulder; Translations: [Pain in joint, shoulder region] Onset: 4 03-27-2024 Episodic Other nutritional; endocrine; and metabolic disorders (20 sources) Obesity; Translations: [Obesity, unspecified] Onset: 8 Resolved: 4 07-28-2021 Chronic [place]-; endo-; and myocarditis; cardiomyopathy (except that caused by tuberculosis or sexually transmitted disease) (20 sources) Cardiomyopathy; Translations: [Other cardiomyopathies] Onset: 6 Resolved: 8 09-10-2020 Chronic Residual codes; unclassified (3 sources) Altered mental status, unspecified; Translations: [Altered mental status, unspecified altered mental status type] Onset: 4 Episodic Residual codes; unclassified (1 source) Hallucinations, unspecified; Translations: [Hallucinations, unspecified] Onset: 4 Episodic Sprains and strains (6 sources) Sprain of medial collateral ligament of knee; Translations: [Sprain of medial collateral ligament of left knee] Onset: 4 Resolved: 7 01-10-2014 Episodic Unclassified (20 sources) Electrocardiogram abnormal; Translations: [Patient encounter status] Onset: 7 Resolved: 4 03-23-2017 Episodic Results Test Name Value Interpretation Reference Range Facility Urine Cultureon 03-09-2025 URC Below infection leve l. Mixed Gram Positive Organisms [place] Count 1000-10,000 MIX[facility] Mixed contaminants. Submit a new specimen if indicated. Normal [facility] Comment on above: Performed By: #### M 100.2200, L400.2010 #### [facility] [address] [place], [place], [address] PTHINon 03-07-2025 PTH 50 pg/mL Normal [facility] Comment on above: Performed By: #### M 100.2200, L4 #### [facility] [address] [place], [address] Renal Profileon 03-07-2025 Albumin [Mass/Vol] 3.5 g/dL Normal 3.4-4.8 [facility] Comment on above: Performed By: #### M , .2010 #### [facility] [address] [place], [address] BUN/CRE 14.4 RATIO Normal 10-20 [facility] Comment on above: Performed By: #### M , L4.2010 #### [facility] [address] [place], [address] Calcium [Mass/Vol] 8.9 mg/dL Normal 7.6-11.0 [facility] Comment on above: Performed By: #### M , #### [facility] [address] [place], [address] Chloride [Moles/Vol] 103 mmol/L Normal 98-108 [facility] Comment on above: Performed By: #### M , L4 #### [facility] [address] [place], [address] CO2 [Moles/Vol] 23.8 mmol/L Normal 21.0-32.0 [facility] Comment on above: Performed By: #### M , L4 #### [facility] [address] [place], [address] Creatinine [Mass/Vol] 1.57 mg/dL High 0.70-1.20 [facility] Comment on above: Performed By: #### M , L4.2010 #### [facility] [address] [place], [address] GAP 11 Normal 5-15 [facility] Comment on above: Performed By: #### M 100.2199, L4.2010 #### [facility] [address] [place], [address] GFR/1.73 sq M.predicted among non-blacks MDRD (S/P/Bld) [Vol rate/Area] 43 mL/min/{1.73_m2} Low >60 [facility] Comment on above: Result Comment: mL/m in/1.73m2 CKD-EPI Creatinine Equation (2020) Performed By: #### M 100.220, L4.2010 #### [facility] [address] [place], [address] Glucose [Mass/Vol] 221 mg/dL High 70-99 [facility] Comment on above: Performed By: #### M 100.2199, L4.2010 #### [facility] [address] [place], [address] Phosphate [Mass/Vol] 3.6 mg/dL Normal 2.7-4.5 [facility] Comment on above: Performed By: #### M 100.2199, L4.2010 #### [facility] [address] [place], [address] Potassium [Moles/Vol] 4.4 mmol/L Normal 3.3-5.1 [facility] Comment on above: Performed By: #### M 100.2199, L4.2010 #### [facility] [address] [place], [address] Sodium [Moles/Vol] 138 mmol/L Normal 133-145 [facility] Comment on above: Performed By: #### M 100.220, L4.2010 #### [facility] [address] [place], [address] Urea nitrogen [Mass/Vol] 23 mg/dL High 4-19 [facility] Comment on above: Performed By: #### M 100.2200, L400.2010 #### [facility] [address] [place], [address] Urinalysis, Completeon 10-29 -2025 BACTERIA RARE Normal None Seen [facility] Comment on above: Order Comment: Urine , Random Performed By: #### M 100.2200, L400.2010 #### [facility] [address] [place], [address] EPI,SQUAMOUS 0-5 SEEN Normal 0-5 [facility] Comment on above: Order Comment: Urine , Random Performed By: #### M 100.2200, L400.2010 #### [facility] [address] [place], [address] WBC 0-5 SEEN Normal 0-5 [facility] Comment on above: Order Comment: Urine , Random Performed By: #### M 100.2200, L400.2010 #### [facility] [address] [place], [address] Mucus Ql (Urine sed) 0 SEEN Normal [facility] Comment on above: Order Comment: Urine , Random Performed By: #### M 100.2200, L400.2010 #### [facility] [address] [place], [address] RBC 0 SEEN Normal 0-5 [facility] Comment on above: Order Comment: Urine , Random Performed By: #### M 100.2200, L400.2010 #### [facility] [address] [place], [address] [facility] [place] [facility]25 [facility] Telephone ([facility]) AXEL SERRANO ([id number]) 1940 M Date Time Provider Department 03/01/25 YEYO BAILEY During your visit today, we recorded the following information about you: Yeyo Bailey APRN.BRIAN 03/01/2025 11:45 AM Signed Contacted the patient and his spouse via telephone to discuss results of recent CT B. He was seen in the hospital on 10/25/[address] Reese. He had undergone an MRI of the brain by his neurology for dementia workup. There was an abnormality seen on imaging which prompted a visit to the ED. 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 There was no evidence of acute hemorrhage noted. No neurosurgical intervention was indicated. He was cleared to continue his daily low-dose ASA. He followed up with me on 11/23/2024 and was doing well. He was at his neurological baseline. CT was obtained and reviewed and showed no change in the thin hypoattenuating subdural fluid collections along the bilateral cerebral convexity. There was no evidence of mass effect and no midline shift. I told them that I wanted a CT obtained in about 3 months for further monitoring. I contacted the patient and his spouse today and informed them that there continues to be no change in the bilateral hypodense subdural collections. No evidence of acute blood. No midline shift. There is nothing from a neurosurgical standpoint that needs to be done. I told them no further follow-up is indicated. All of their questions and concerns were addressed in detail. Yeyo Bailey APRN-[facility] Neurosurgery Nurse Practitioner [facility] 11:45 AM 03/01/2025 Allergies As of Date: 03/01/2025 Noted Allergy Reaction MAI INHIBITORS 12/16/2017 14 - Other: See Comments Comments: Hyperkalemia ATORVASTATIN 05/05/2017 17 - Myalgia PRAVASTATIN 03/24/2017 17 - Myalgia [id number] REDUCTASE INHIBIT*02/16/2019 17 - Myalgia Date Reviewed: 02/23/2025 Reviewed by: Jackie Rae RT(R) - Fully Assessed Reason for Visit: Results [95] Prescriptions as of 03/01/2025 - carbidopa-levodopa (SINEMET 25-100) 25-100 mg per tablet Take 1 tablet by mouth at 7AM, Noon and 5PM. - rivastigmine tartrate (EXELON) 1.5 mg capsule TAKE 1 CAPSULE BY MOUTH 2 TIMES A DAY WITH MEALS - folic acid 1 mg tablet Take 1 tablet by mouth once daily. - ammonium lactate (LAC-HYDRIN) 12 % cream Apply to affected area as needed for dry skin (2 x day to legs). - ferrous gluconate 324 mg (37.5 mg iron) tablet Take 324 mg by mouth once daily. - folic acid 1 mg tablet Take 1 mg by mouth once daily. - zinc oxide-white petrolatum (BILL MOIST BARRIER-ZINC) 10-78 % crea Apply to affected area three times a day as needed (to buttock). - atorvastatin (LIPITOR) 40 mg tablet Take 1 tablet by mouth daily at bedtime. For cholesterol. - gabapentin (NEURONTIN) 300 mg capsule Take 1 capsule by mouth two times a day. - aspirin, enteric coated (ASPIRIN, ENTERIC COATED) 81 mg EC tablet Take 81 mg by mouth once daily. - sertraline (ZOLOFT) 50 mg tablet Take 1 tablet by mouth once daily. - LORazepam (ATIVAN) 0.5 mg Take 0.5 mg by mouth every 4 hours as needed. - metFORMIN ER (GLUCOPHAGE XR) 500 mg 24 hr tablet Take 1 tablet by mouth two times a day before meals. - SITagliptin phosphate (JANUVIA) 50 mg tablet Take 1 tablet by mouth once daily. - tamsulosin (FLOMAX) 0.4 mg Take 2 capsules by mouth once daily. - furosemide (LASIX) 40 mg tablet Take 40 mg by mouth once daily. - cyanocobalamin (VITAMIN B-12) 1,000 mcg tab Take 1 tablet by mouth once daily. - blood sugar diagnostic (BLOOD GLUCOSE TEST) test strip Test blood sugar(s) 1 times daily. 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) [C85.9A] 07/01/2006 TIA (transient ischemic attack) [G45.9] 04/18/2009 01/03/2025 Essential hypertension, benign [I10] 05/30/2012 Tremor, essential [G25.0] 05/30/2012 Diabetic neuropathy (HCC) [E11.40] 04/03/2014 12/18/2014 Diabetic polyneuropathy associated with type 2 *12/18/2014 Bladder stone [N21.0] 08/19/2015 02/25/2017 Benign prostatic hyperplasia without lower urin*08/19/2015 Hydronephrosis [N13.30] 08/19/2015 05/29/2022 Kidney stone [N20.0] 08/19/2015 02/25/2017 History of kidney stones [Z87.442] 05/25/2016 01/03/2025 History of bladder stone [Z87.448] 05/25/2016 Vitamin B12 deficiency [E53.8] 02/25/2017 05/29/2022 Aortic stenosis [I35.0] 05/27/2017 Class 2 obesity with body m (more content not included)... Normal [facility] CBC W Auto Differential pane l (Bld)on 02-26-2025 Basophils (Bld) [#/Vol] 0.04 10*3/uL Normal <0.11 [facility] Comment on above: Order Comment: Speci men Type: BLOOD SPECIMENOrdering Facility: [facility] Address: [address] [place] [address] Performed By: #### 5 7021-8 ####[facility] [id number] [place] [address] [place] Basophils/100 WBC (Bld) 0.4 % Normal C [facility] Comment on above: Order Comment: Speci men Type: BLOOD SPECIMENOrdering Facility: [facility] Address: [address] [place] [address] Performed By: #### 5 7021-8 ####[facility]ITALA [id number] [place] [address] [place] Differential cell count method Nom (Bld) Auto Normal [facility] Comment on above: Order Comment: Speci men Type: BLOOD SPECIMENOrdering Facility: [facility] Address: [address] [place] [address] Performed By: #### 5 7021-8 ####[facility] HOSPITALJAMAL [id number] [place] [address] [place] Eosinophils (Bld) [#/Vol] 0.41 10*3/uL Normal <0.46 [facility] Comment on above: Order Comment: Speci men Type: BLOOD SPECIMENOrdering Facility: [facility] Address: [address] [place] [address] Performed By: #### 5 7021-8 ####[facility] [id number] [place] [address] [place] Eosinophils/100 WBC (Bld) 4.3 % Normal [facility] Comment on above: Order Comment: Speci men Type: BLOOD SPECIMENOrdering Facility: [facility] Address: [address] [place] [address] Performed By: #### 5 7021-8 ####[facility] HOSPITALNCMingo [id number] [place] [address] [place] Erythrocyte distribution width (RBC) [Ratio] 14.4 % Normal 11.5-15.0 [facility] Comment on above: Order Comment: Speci men Type: BLOOD SPECIMENOrdering Facility: [facility] Address: [address] [place] [address] Performed By: #### 5 7021-8 ####[facility] [id number] [place] [address] [place] Hematocrit (Bld) [Volume fraction] 33.6 % Low 39.0-51.0 [facility] Comment on above: Order Comment: Speci men Type: BLOOD SPECIMENOrdering Facility: [facility] Address: [address] [place] [address] Performed By: #### 5 7021-8 ####[facility] HOSPITALWNCLIA [id number] [place] [address] [place] Hemoglobin (Bld) [Mass/Vol] 11.3 g/dL Low 13.0-17.0 [facility] Comment on above: Order Comment: Speci men Type: BLOOD SPECIMENOrdering Facility: [facility] Address: [address] [place] [address] Performed By: #### 5 7021-8 ####[facility] CENTERLIA [id number] [place] [address] [place] Immature granulocytes (Bld) [#/Vol] 0.06 10*3/uL Normal <0.10 [facility] Comment on above: Order Comment: Speci men Type: BLOOD SPECIMENOrdering Facility: [facility] Address: [address] [place] [address] Performed By: #### 5 7021-8 ####[facility]ITALA [id number] [place] [address] [place] Immature granulocytes/100 WBC (Bld) 0.6 % Normal [facility] Comment on above: Order Comment: Speci men Type: BLOOD SPECIMENOrdering Facility: [facility] Address: [address] [place] [address] Performed By: #### 5 7021-8 ####[facility]ITALA [id number] [place] [address] [place] Lymphocytes (Bld) [#/Vol] 1.11 10*3/uL Normal 1.00-4.00 [facility] Comment on above: Order Comment: Speci men Type: BLOOD SPECIMENOrdering Facility: [facility] Address: [address] [place] [address] Performed By: #### 5 7021-8 ####[facility] HOSPITALNCLIA [id number] [address] [place] Lymphocytes/100 WBC (Bld) 11.6 % Normal [facility] Comment on above: Order Comment: Speci men Type: BLOOD SPECIMENOrdering Facility: [facility] Address: [address] [place] [address] Performed By: #### 5 7021-8 ####[facility]ITALNCS[facility] [id number] [place] [address] [place] MCH (RBC) [Entitic mass] 29.7 pg Normal 26.0-34.0 [facility] Comment on above: Order Comment: Speci men Type: BLOOD SPECIMENOrdering Facility: [facility] Address: [address] [place] [address] Performed By: #### 5 7021-8 ####[facility] [id number] [place] [address] [place] MCHC (RBC) [Mass/Vol] 33.6 g/dL Normal 30.5-36.0 [facility] Comment on above: Order Comment: Speci men Type: BLOOD SPECIMENOrdering Facility: [facility] Address: [address] [place] [address] Performed By: #### 5 7021-8 ####[facility] HOSPITALNCLIA [id number] [place] [address] [place] MCV (RBC) [Entitic vol] 88.2 fL Normal 80.0-100.0 C [facility] Comment on above: Order Comment: Speci men Type: BLOOD SPECIMENOrdering Facility: [facility] Address: [address] [place] [address] Performed By: #### 5 7021-8 ####[facility] HOSPITALNCLI [id number] [place] [address] [place] Monocytes (Bld) [#/Vol] 0.59 10*3/uL Normal <0.87 [facility] Comment on above: Order Comment: Speci men Type: BLOOD SPECIMENOrdering Facility: [facility] Address: [address] [place] [address] Performed By: #### 5 7021-8 ####[facility] ELLENDEBA [id number] [place] [address] [place] Monocytes/100 WBC (Bld) 6.2 % Normal [facility] Comment on above: Order Comment: Speci men Type: BLOOD SPECIMENOrdering Facility: [facility] Address: [address] [place] [address] Performed By: #### 5 7021-8 ####[facility]S HOSPITALNCA [id number] [place] [address] [place] Neutrophils (Bld) [#/Vol] 7.33 10*3/uL Normal 1.45-7.50 [facility] Comment on above: Order Comment: Speci men Type: BLOOD SPECIMENOrdering Facility: [facility] Address: [address] [place] [address] Performed By: #### 5 7021-8 ####[facility] HOSPITALNCA [id number] [place] [address] [place] Neutrophils/100 WBC (Bld) 76.9 % Normal [facility] Comment on above: Order Comment: Speci men Type: BLOOD SPECIMENOrdering Facility: [facility] Address: [address] [place] [address] Performed By: #### 5 7021-8 ####[facility] CENTERLIA [id number] [place] [address] [place] Nucleated RBC (Bld) [#/Vol] 10*3/uL Normal <0.01 [facility] Comment on above: Order Comment: Speci men Type: BLOOD SPECIMENOrdering Facility: [facility] Address: [address] [place] [address] Performed By: #### 5 7021-8 ####[facility] ELLENROXANNELIA [id number] [place] [address] [place] Nucleated RBC/100 WBC (Bld) [Ratio] 0.0 /100 WBC Normal [facility] Comment on above: Order Comment: Speci men Type: BLOOD SPECIMENOrdering Facility: [facility] Address: [address] [place] [address] Performed By: #### 5 7021-8 ####[facility] HOSPITALJAMAL [id number] [place] [address] [place] Platelet mean volume (Bld) [Entitic vol] 9.7 fL Normal 9.0-12.7 [facility] Comment on above: Order Comment: Speci men Type: BLOOD SPECIMENOrdering Facility: [facility] Address: [address] [place] [address] Performed By: #### 5 7021-8 ####[facility] HOSPITALKAVITAMingo [id number] [place] [address] [place] Platelets (Bld) [#/Vol] 190 10*3/uL Normal 150-400 [facility] Comment on above: Order Comment: Speci men Type: BLOOD SPECIMENOrdering Facility: [facility] Address: [address] [place] [address] Performed By: #### 5 7021-8 ####[facility]S HOSPITALMingo [id number] [place] [address] [place] RBC (Bld) [#/Vol] 3.81 10*6/uL Low 4.20-6.00 [facility] Comment on above: Order Comment: Speci men Type: BLOOD SPECIMENOrdering Facility: [facility] Address: [address] [place] [address] Performed By: #### 5 7021-8 ####[facility] HOSPITALNCS[facility] [id number] [place] [id number] [place] WBC (Bld) [#/Vol] 9.54 10*3/uL Normal 3.70-11.00 [facility] Comment on above: Order Comment: Speci men Type: BLOOD SPECIMENOrdering Facility: [facility] Address: [address] [place] [address] Performed By: #### 5 7021-8 ####[facility] JGKAVITALIA [id number] [place] [address] [place] BRAIN WO IVCONon 02-27-20 CT BRAIN WO IVCON Normal [facility] CNOVon 01-30-2025 CNOV Normal [facility] CNPNon 01-26-2025 CNPN Normal [facility] CBC W Auto Differential pane l (Bld)on 01-24-2025 Basophils (Bld) [#/Vol] 0.04 10*3/uL Normal <0.11 [facility] Comment on above: Order Comment: Speci men Type: BLOOD SPECIMENOrdering Facility: [facility] Address: [address] [place] [address] Performed By: #### 5 7021-8 ####[facility] ELLENURBANAZENA [id number] [place] [address] [place] Basophils/100 WBC (Bld) 0.4 % Normal C [facility] Comment on above: Order Comment: Speci men Type: BLOOD SPECIMENOrdering Facility: [facility] Address: [address] [place] [address] Performed By: #### 5 7021-8 ####[facility] ELLENURBANAKAVITALIA [id number] [place] [address] [place] Differential cell count method Nom (Bld) Auto Normal [facility] Comment on above: Order Comment: Speci men Type: BLOOD SPECIMENOrdering Facility: [facility] Address: [address] [place] [address] Performed By: #### 5 7021-8 ####[facility] MILLWNCLIA [id number] [place] [address] [place] Eosinophils (Bld) [#/Vol] 0.22 10*3/uL Normal <0.46 [facility] Comment on above: Order Comment: Speci men Type: BLOOD SPECIMENOrdering Facility: [facility] Address: [address] [place] [address] Performed By: #### 5 7021-8 ####[facility] CENTERLIA [id number] [place] [address] [place] Eosinophils/100 WBC (Bld) 2.3 % Normal [facility] Comment on above: Order Comment: Speci men Type: BLOOD SPECIMENOrdering Facility: [facility] Address: [address] [place] [address] Performed By: #### 5 7021-8 ####[facility] [id number] [place] [address] [place] Erythrocyte distribution width (RBC) [Ratio] 14.6 % Normal 11.5-15.0 [facility] Comment on above: Order Comment: Speci men Type: BLOOD SPECIMENOrdering Facility: [facility] Address: [address] [place] [address] Performed By: #### 5 7021-8 ####[facility] MED[facility] CENTERLIA [id number] [place] [address] [place] Hematocrit (Bld) [Volume fraction] 29.3 % Low 39.0-51.0 [facility] Comment on above: Order Comment: Speci men Type: BLOOD SPECIMENOrdering Facility: [facility] Address: [address] [place] [address] Performed By: #### 5 7021-8 ####[facility] HOSPITALNCLIA [id number] [place] [address] [place] Hemoglobin (Bld) [Mass/Vol] 9.9 g/dL Low 13.0-17.0 [facility] Comment on above: Order Comment: Speci men Type: BLOOD SPECIMENOrdering Facility: [facility] Address: [address] [place] [address] Performed By: #### 5 7021-8 ####[facility] [id number] [place] [address] [place] Immature granulocytes (Bld) [#/Vol] 0.07 10*3/uL Normal <0.10 [facility] Comment on above: Order Comment: Speci men Type: BLOOD SPECIMENOrdering Facility: [facility] Address: [address] [place] [address] Performed By: #### 5 7021-8 ####[facility] [id number] [place] [address] [place] Immature granulocytes/100 WBC (Bld) 0.7 % Normal [facility] Comment on above: Order Comment: Speci men Type: BLOOD SPECIMENOrdering Facility: [facility] Address: [address] [place] [address] Performed By: #### 5 7021-8 ####[facility] [id number] [place] [address] [place] Lymphocytes (Bld) [#/Vol] 1.05 10*3/uL Normal 1.00-4.00 [facility] Comment on above: Order Comment: Speci men Type: BLOOD SPECIMENOrdering Facility: [facility] Address: [address] [place] [address] Performed By: #### 5 7021-8 ####[facility] [id number] [place] [address] [place] Lymphocytes/100 WBC (Bld) 11.0 % Normal [facility] Comment on above: Order Comment: Speci men Type: BLOOD SPECIMENOrdering Facility: [facility] Address: [address] [place] [address] Performed By: #### 5 7021-8 ####[facility] ELLENURBANAJAMAL [id number] [address] MCH (RBC) [Entitic mass] 29.8 pg Normal 26.0-34.0 [facility] Comment on above: Order Comment: Speci men Type: BLOOD SPECIMENOrdering Facility: [facility] Address: [address] [place] [address] Performed By: #### 5 7021-8 ####[facility]ITALNCS[facility] [id number] [address] [place] MCHC (RBC) [Mass/Vol] 33.8 g/dL Normal 30.5-36.0 [facility] Comment on above: Order Comment: Speci men Type: BLOOD SPECIMENOrdering Facility: [facility] Address: [address] [place] [address] Performed By: #### 5 7021-8 ####[facility] [id number] [place] [address] [place] MCV (RBC) [Entitic vol] 88.3 fL Normal 80.0-100.0 C [facility] Comment on above: Order Comment: Speci men Type: BLOOD SPECIMENOrdering Facility: [facility] Address: [address] [place] [address] Performed By: #### 5 7021-8 ####[facility] [id number] [place] [address] [place] Monocytes (Bld) [#/Vol] 0.65 10*3/uL Normal <0.87 [facility] Comment on above: Order Comment: Speci men Type: BLOOD SPECIMENOrdering Facility: [facility] Address: [address] [place] [address] Performed By: #### 5 7021-8 ####[facility] HOSPITALWNCLIA [id number] [place] [address] [place] Monocytes/100 WBC (Bld) 6.8 % Normal [facility] Comment on above: Order Comment: Speci men Type: BLOOD SPECIMENOrdering Facility: [facility] Address: [address] [place] [address] Performed By: #### 5 7021-8 ####[facility] CENTERLIA [id number] [place] [address] [place] Neutrophils (Bld) [#/Vol] 7.54 10*3/uL High 1.45-7.50 [facility] Comment on above: Order Comment: Speci men Type: BLOOD SPECIMENOrdering Facility: [facility] Address: [address] [place] [address] Performed By: #### 5 7021-8 ####[facility] HOS[facility]ITALA [id number] [place] [address] [place] Neutrophils/100 WBC (Bld) 78.8 % Normal [facility] Comment on above: Order Comment: Speci men Type: BLOOD SPECIMENOrdering Facility: [facility] Address: [address] [place] [address] Performed By: #### 5 7021-8 ####[facility] CENTERLIA [id number] [place] [address] [place] Nucleated RBC (Bld) [#/Vol] 10*3/uL Normal <0.01 [facility] Comment on above: Order Comment: Speci men Type: BLOOD SPECIMENOrdering Facility: [facility] Address: [address] [place] [address] Performed By: #### 5 7021-8 ####[facility] HOSPITALNCLIA [id number] [place] [address] [place] Nucleated RBC/100 WBC (Bld) [Ratio] 0.0 /100 WBC Normal [facility] Comment on above: Order Comment: Speci men Type: BLOOD SPECIMENOrdering Facility: [facility] Address: [address] [place] [address] Performed By: #### 5 7021-8 ####[facility] HOS[facility]ITALNCS[facility] [id number] [place] [address] [place] Platelet mean volume (Bld) [Entitic vol] 9.8 fL Normal 9.0-12.7 [facility] Comment on above: Order Comment: Speci men Type: BLOOD SPECIMENOrdering Facility: [facility] Address: [address] [place] [address] Performed By: #### 5 7021-8 ####[facility]ITALNCS[facility] [id number] [place] [address] [place] Platelets (Bld) [#/Vol] 201 10*3/uL Normal 150-400 [facility] Comment on above: Order Comment: Speci men Type: BLOOD SPECIMENOrdering Facility: [facility] Address: [address] [place] [address] Performed By: #### 5 7021-8 ####[facility] [id number] [place] [address] [place] RBC (Bld) [#/Vol] 3.32 10*6/uL Low 4.20-6.00 [facility] Comment on above: Order Comment: Speci men Type: BLOOD SPECIMENOrdering Facility: [facility] Address: [address] [place] [address] Performed By: #### 5 7021-8 ####[facility]ITALNCS[facility] [id number] [place] [address] [place] WBC (Bld) [#/Vol] 9.57 10*3/uL Normal 3.70-11.00 [facility] Comment on above: Order Comment: Speci men Type: BLOOD SPECIMENOrdering Facility: [facility] Address: [address] [place] [address] Performed By: #### 5 7021-8 ####[facility] MILLWNCLIA [id number] [place] [address] [place] CNOVon 01-03-2025 CNOV Normal [facility] CNPNon 12-27-2024 CNPN Normal [facility] Basic metabolic 2000 panelon 12-26-2024 Anion gap [Moles/Vol] 14 mmol/L Normal 8-15 [facility] Comment on above: Order Comment: Speci men Type: BLOOD SPECIMENOrdering Facility: [facility] Address: [address] [place] [address] Performed By: #### 2 4321-2 ####[facility] HOSPITALNCLIA [id number] [place] [address] [place] Calcium [Mass/Vol] 9.2 mg/dL Normal 8.5-10.2 [facility] Comment on above: Order Comment: Speci men Type: BLOOD SPECIMENOrdering Facility: [facility] Address: [address] [place] [address] Performed By: #### 2 4321-2 ####[facility] MILLWNCLIA [id number] [place] [address] [place] Chloride [Moles/Vol] 101 mmol/L Normal 98-107 [facility] Comment on above: Order Comment: Speci men Type: BLOOD SPECIMENOrdering Facility: [facility] Address: [address] [place] [address] Performed By: #### 2 4321-2 ####[facility] MILLWNCLIA [id number] [place] [address] [place] CO2 [Moles/Vol] 22 mmol/L Normal 22-30 [facility] Comment on above: Order Comment: Speci men Type: BLOOD SPECIMENOrdering Facility: [facility] Address: [address] [place] [address] Performed By: #### 2 4321-2 ####[facility] MIKELWNCLIA [id number] [place] [address] [place] Creatinine [Mass/Vol] 1.96 mg/dL High 0.73-1.22 [facility] Comment on above: Order Comment: Speci men Type: BLOOD SPECIMENOrdering Facility: [facility] Address: [address] [place] [address] Performed By: #### 2 4321-2 ####[facility] HOSPITALNCLIA [id number] [place] [address] [place] eGFRcr SerPlBld CKD-EPI 2020 33 mL/min/1.73m??? Low >=60 [facility] Comment on above: Order Comment: Speci men Type: BLOOD SPECIMENOrdering Facility: [facility] Address: [address] [place] [address] Result Comment: Lady mated Glomerular Filtration Rate (eGFR) is calculated using the 2020 CKD-EPI creatinine equation. This equation utilizes serum creatinine, sex, and age as parameters. The creatinine assay has traceable calibration to isotope dilution-mass spectrometry. Refer to KDIGO guidelines for clinical interpretation. In patients with unstable renal function, e.g. those with acute kidney injury, the eGFR may not accurately reflect actual GFR. Performed By: #### 2 4321-2 ####[facility] HOSPITALWNCLIA [id number] [place] [address] [place] Glucose [Mass/Vol] 203 mg/dL High 74-99 [facility] Comment on above: Order Comment: Speci men Type: BLOOD SPECIMENOrdering Facility: [facility] Address: [address] [place] [address] Result Comment: The [place] [employer] (ADA) provides guidance for cutoff values for fasting glucose and random glucose. The ADA defines fasting as no caloric intake for at least 8 hours. Fasting plasma glucose results between 100 to 125 mg/dL indicate increased risk for diabetes (prediabetes).Fasting plasma glucose results greater than or equal to 126 mg/dL meet the criteria for diagnosis of diabetes. In the absence of unequivocal hyperglycemia, results should be confirmed by repeat testing. In a patient with classic symptoms of hyperglycemia or hyperglycemic crisis, random plasma glucose results greater than or equal to 200 mg/dL meet the criteria for diagnosis of diabetes.Reference: Standards of Medical Care in Diabetes 2016, [place] [employer]. Diabetes Care. 2016.39(Suppl 1). Performed By: #### 2 4321-2 ####[facility] MILLTOWNCLIA [id number] [place] [address] [place] Potassium [Moles/Vol] 5.0 mmol/L Normal 3.7-5.1 [facility] Comment on above: Order Comment: Speci men Type: BLOOD SPECIMENOrdering Facility: [facility] Address: [address] [place] [address] Performed By: #### 2 4321-2 ####[facility] CENTERLIA [id number] [place] [address] [place] Sodium [Moles/Vol] 137 mmol/L Normal 136-144 [facility] Comment on above: Order Comment: Speci men Type: BLOOD SPECIMENOrdering Facility: [facility] Address: [address] [place] [address] Performed By: #### 2 4321-2 ####[facility] MILLTOWNCLIA [id number] [place] [address] [place] Urea nitrogen [Mass/Vol] 36 mg/dL High 9-24 [facility] Comment on above: Order Comment: Speci men Type: BLOOD SPECIMENOrdering Facility: [facility] Address: [address] [place] [address] Performed By: #### 2 4321-2 ####[facility] HOSPITALWNCLIA [id number] [place] [address] [place] CBC W Auto Differential pane l (Bld)on 12-26-2024 Basophils (Bld) [#/Vol] 0.03 10*3/uL Normal <0.11 [facility] Comment on above: Order Comment: Speci men Type: BLOOD SPECIMENOrdering Facility: [facility] Address: [address] [place] [address] Performed By: #### 5 7021-8 ####[facility] MILLWNCLIA [id number] [place] [address] [place] Basophils/100 WBC (Bld) 0.3 % Normal [facility] Comment on above: Order Comment: Speci men Type: BLOOD SPECIMENOrdering Facility: [facility] Address: [address] [place] [address] Performed By: #### 5 7021-8 ####[facility] CENTERLIA [id number] [place] [address] [place] Differential cell count method Nom (Bld) Auto Normal [facility] Comment on above: Order Comment: Speci men Type: BLOOD SPECIMENOrdering Facility: [facility] Address: [address] [place] [address] Performed By: #### 5 7021-8 ####[facility] CENTERLIA [id number] [place] [address] [place] Eosinophils (Bld) [#/Vol] 0.34 10*3/uL Normal <0.46 [facility] Comment on above: Order Comment: Speci men Type: BLOOD SPECIMENOrdering Facility: [facility] Address: [address] [place] [address] Performed By: #### 5 7021-8 ####[facility] CENTERLIA [id number] [place] [address] [place] Eosinophils/100 WBC (Bld) 3.2 % Normal [facility] Comment on above: Order Comment: Speci men Type: BLOOD SPECIMENOrdering Facility: [facility] Address: [address] [place] [address] Performed By: #### 5 7021-8 ####[facility] JGNCTAINA [id number] [place] [address] [place] Erythrocyte distribution width (RBC) [Ratio] 14.8 % Normal 11.5-15.0 [facility] Comment on above: Order Comment: Speci men Type: BLOOD SPECIMENOrdering Facility: [facility] Address: [address] [place] [address] Performed By: #### 5 7021-8 ####[facility] HOSPITALNCLIA [id number] [place] [address] [place] Hematocrit (Bld) [Volume fraction] 30.7 % Low 39.0-51.0 [facility] Comment on above: Order Comment: Speci men Type: BLOOD SPECIMENOrdering Facility: [facility] Address: [address] [place] [address] Performed By: #### 5 7021-8 ####[facility] HOSPITALNCLIA [id number] [place] [address] [place] Hemoglobin (Bld) [Mass/Vol] 10.2 g/dL Low 13.0-17.0 [facility] Comment on above: Order Comment: Speci men Type: BLOOD SPECIMENOrdering Facility: [facility] Address: [address] [place] [address] Performed By: #### 5 7021-8 ####[facility] HOSPITALNCLIA [id number] [place] [address] [place] Immature granulocytes (Bld) [#/Vol] 0.04 10*3/uL Normal <0.10 [facility] Comment on above: Order Comment: Speci men Type: BLOOD SPECIMENOrdering Facility: [facility] Address: [address] [place] [address] Performed By: #### 5 7021-8 ####[facility] ELLENURBANAKAVITALIA [id number] [address] STATES [facility] Immature granulocytes/100 WBC (Bld) 0.4 % Normal [facility] Comment on above: Order Comment: Speci men Type: BLOOD SPECIMENOrdering Facility: [facility] Address: [address] [place] [address] Performed By: #### 5 7021-8 ####[facility] HOSPITALNCLIA [id number] [place] [address] [place] Lymphocytes (Bld) [#/Vol] 0.87 10*3/uL Low 1.00-4.00 [facility] Comment on above: Order Comment: Speci men Type: BLOOD SPECIMENOrdering Facility: [facility] Address: [address] [place] [address] Performed By: #### 5 7021-8 ####[facility] HOSPITALA [id number] [place] [address] [place] Lymphocytes/100 WBC (Bld) 8.3 % Normal [facility] Comment on above: Order Comment: Speci men Type: BLOOD SPECIMENOrdering Facility: [facility] Address: [address] [place] [address] Performed By: #### 5 7021-8 ####[facility] HOSPITALA [id number] [place] [address] [place] MCH (RBC) [Entitic mass] 29.1 pg Normal 26.0-34.0 [facility] Comment on above: Order Comment: Speci men Type: BLOOD SPECIMENOrdering Facility: [facility] Address: [address] [place] [address] Performed By: #### 5 7021-8 ####[facility] [id number] [place] [address] [place] MCHC (RBC) [Mass/Vol] 33.2 g/dL Normal 30.5-36.0 [facility] Comment on above: Order Comment: Speci men Type: BLOOD SPECIMENOrdering Facility: [facility] Address: [address] [place] [address] Performed By: #### 5 7021-8 ####[facility] HOSPITALNCLIA [id number] [place] [address] [place] MCV (RBC) [Entitic vol] 87.7 fL Normal 80.0-100.0 [facility] Comment on above: Order Comment: Speci men Type: BLOOD SPECIMENOrdering Facility: [facility] Address: [address] [place] [address] Performed By: #### 5 7021-8 ####[facility] HOSPITALNCCOLTONA [id number] [place] [address] [place] Monocytes (Bld) [#/Vol] 0.67 10*3/uL Normal <0.87 [facility] Comment on above: Order Comment: Speci men Type: BLOOD SPECIMENOrdering Facility: [facility] Address: [address] [place] [address] Performed By: #### 5 7021-8 ####[facility] HOSPITALNCLIA [id number] [place] [address] [place] Monocytes/100 WBC (Bld) 6.4 % Normal C [facility] Comment on above: Order Comment: Speci men Type: BLOOD SPECIMENOrdering Facility: [facility] Address: [address] [place] [address] Performed By: #### 5 7021-8 ####[facility] HOSPITALNCLIA [id number] [place] [address] [place] Neutrophils (Bld) [#/Vol] 8.57 10*3/uL High 1.45-7.50 [facility] Comment on above: Order Comment: Speci men Type: BLOOD SPECIMENOrdering Facility: [facility] Address: [address] [place] [address] Performed By: #### 5 7021-8 ####[facility] CENTERLIA [id number] [place] [address] [place] Neutrophils/100 WBC (Bld) 81.4 % Normal [facility] Comment on above: Order Comment: Speci men Type: BLOOD SPECIMENOrdering Facility: [facility] Address: [address] [place] [address] Performed By: #### 5 7021-8 ####[facility] [id number] [place] [address] [place] Nucleated RBC (Bld) [#/Vol] 10*3/uL Normal <0.01 [facility] Comment on above: Order Comment: Speci men Type: BLOOD SPECIMENOrdering Facility: [facility] Address: [address] [place] [address] Performed By: #### 5 7021-8 ####[facility] [id number] [place] [address] [place] Nucleated RBC/100 WBC (Bld) [Ratio] 0.0 /100 WBC Normal [facility] Comment on above: Order Comment: Speci men Type: BLOOD SPECIMENOrdering Facility: [facility] Address: [address] [place] [address] Performed By: #### 5 7021-8 ####[facility] [id number] [place] [address] [place] Platelet mean volume (Bld) [Entitic vol] 10.6 fL Normal 9.0-12.7 [facility] Comment on above: Order Comment: Speci men Type: BLOOD SPECIMENOrdering Facility: [facility] Address: [address] [place] [address] Performed By: #### 5 7021-8 ####[facility] MIKELWNCLIA [id number] [place] [address] [place] Platelets (Bld) [#/Vol] 179 10*3/uL Normal 150-400 [facility] Comment on above: Order Comment: Speci men Type: BLOOD SPECIMENOrdering Facility: [facility] Address: [address] [place], [place] [address] Performed By: #### 5 7021-8 ####[facility] ELLENURBANANCLIA [id number] [place] [address] [place] RBC (Bld) [#/Vol] 3.50 10*6/uL Low 4.20-6.00 [facility] Comment on above: Order Comment: Speci men Type: BLOOD SPECIMENOrdering Facility: [facility] Address: [address] [place] [address] Performed By: #### 5 7021-8 ####[facility] HOSPITALNCLIA [id number] [place] [address] [place] WBC (Bld) [#/Vol] 10.52 10*3/uL Normal 3.70-11.00 [facility] Comment on above: Order Comment: Speci men Type: BLOOD SPECIMENOrdering Facility: [facility] Address: [address] [place] [address] Performed By: #### 5 7021-8 ####[facility] H[facility]ITALNCLIA [id number] [place] [address] [place] CNOVSPon 12-26-2024 CNOVSP Normal [facility] Ferritin SerPl-mCncon 2024 Ferritin [Mass/Vol] 546.0 ng/mL Normal 30.3-565.7 [facility] Comment on above: Order Comment: Speci men Type: BLOOD SPECIMENOrdering Facility: [facility] Address: [address] [place] [address] Performed By: #### 2 276-4, 11267-7 ####[facility] LABCLIA [id number] [address] [place] HbA1c (Bld)on 12-26-2024 Average glucose Estimated from glycated hemoglobin (Bld) [Mass/Vol] 163 mg/dL Normal [facility] Comment on above: Order Comment: Speci men Type: BLOOD SPECIMENOrdering Facility: [facility] Address: [address] [place] [address] Result Comment: eAG: (Estimated average glucose) is a calculated value from HgbA1c and is contact center representative of the average blood glucose level in the last 2-3 month period. Performed By: #### 5 5454-3 ####[facility] LABIA [id number] [address] [place] HbA1c (Bld) [Mass fraction] 7.3 % High 4.3-5.6 [facility] Comment on above: Order Comment: Speci men Type: BLOOD SPECIMENOrdering Facility: [facility] Address: [address] [place] [address] Result Comment: [place] Diabetes Association guidelines indicate that patients with HgbA1c in the range 5.7-6.4% are at increased risk for development of diabetes, and intervention by lifestyle modification may be beneficial. HgbA1c greater or equal to 6.5% is considered diagnostic of diabetes. Performed By: #### 5 5454-3 ####[facility] LABCLIA [id number] [place] [id number] [place] Iron and Iron binding capaci ty panelon 12-26-2024 Iron [Mass/Vol] 57 ug/dL Normal 41-186 [facility] Comment on above: Order Comment: Agustinai men Type: BLOOD SPECIMENOrdering Facility: [facility] Address: [address] [place] [address] Performed By: #### 2 276-4, 65530-1 ####[facility] LABCLIA [id number] [place] [address] [place] Iron binding capacity [Mass/Vol] 234 ug/dL Normal 232-386 [facility] Comment on above: Order Comment: Speci men Type: BLOOD SPECIMENOrdering Facility: [facility] Address: [address] [place] [address] Performed By: #### 2 276-4, 69115-4 ####[facility] [id number] [place] [address] [place] Iron/TIBC [Molar ratio] 24.4 % Normal 15.0-57.0 C [facility] Comment on above: Order Comment: Speci men Type: BLOOD SPECIMENOrdering Facility: [facility] Address: [address] [place] [address] Performed By: #### 2 276-4, 60491-0 ####[facility] [id number] [place] [address] [place] CNPNon 12-19-2024 CNPN Normal [facility] CNPNon 12-14-2024 CNPN Normal [facility] Bacteria Ur Culton Bacteria identified Cx Nom (U) ORGANISM ID: 1 10,000 -<50,000 CFU/ml Normal urogenital shakir Normal [facility] Comment on above: Performed By: #### 6 30-4 ####[facility] [id number] [place] [address] [place] CNOVon 12-12-2024 CNOV Normal [facility] CBC W Auto Differential pane l (Bld)on 11-29-2024 Basophils (Bld) [#/Vol] 0.03 10*3/uL Normal <0.11 [facility] Comment on above: Order Comment: Speci men Type: BLOOD SPECIMENOrdering Facility: [facility] Address: [address] [place] [address] Performed By: #### 5 7021-8 ####[facility] HOSPITALTOWNCLIA [id number] [place] [address] [place] Basophils/100 WBC (Bld) 0.3 % Normal [facility] Comment on above: Order Comment: Speci men Type: BLOOD SPECIMENOrdering Facility: [facility] Address: [address] [place] [address] Performed By: #### 5 7021-8 ####[facility] ELLENURBANAKAVITALIA [id number] [place] [address] [place] Differential cell count method Nom (Bld) Auto Normal [facility] Comment on above: Order Comment: Speci men Type: BLOOD SPECIMENOrdering Facility: [facility] Address: [address] [place] [address] Performed By: #### 5 7021-8 ####[facility] HOSPITALZENA [id number] [place] [address] [place] Eosinophils (Bld) [#/Vol] 0.14 10*3/uL Normal <0.46 [facility] Comment on above: Order Comment: Speci men Type: BLOOD SPECIMENOrdering Facility: [facility] Address: [address] [place] [address] Performed By: #### 5 7021-8 ####[facility] ELLENURBANAKAVITACOLTONA [id number] [place] [address] [place] Eosinophils/100 WBC (Bld) 1.6 % Normal [facility] Comment on above: Order Comment: Speci men Type: BLOOD SPECIMENOrdering Facility: [facility] Address: [address] [place] [address] Performed By: #### 5 7021-8 ####[facility] HOSPITALKAVITALIA [id number] [place] [address] [place] Erythrocyte distribution width (RBC) [Ratio] 15.5 % High 11.5-15.0 [facility] Comment on above: Order Comment: Speci men Type: BLOOD SPECIMENOrdering Facility: [facility] Address: [address] [place] [address] Performed By: #### 5 7021-8 ####[facility] [id number] [place] [address] [place] Hematocrit (Bld) [Volume fraction] 30.7 % Low 39.0-51.0 [facility] Comment on above: Order Comment: Speci men Type: BLOOD SPECIMENOrdering Facility: [facility] Address: [address] [place] [address] Performed By: #### 5 7021-8 ####[facility] HOSPITALJAMAL [id number] [place] [address] [place] Hemoglobin (Bld) [Mass/Vol] 10.1 g/dL Low 13.0-17.0 [facility] Comment on above: Order Comment: Speci men Type: BLOOD SPECIMENOrdering Facility: [facility] Address: [address] [place] [address] Performed By: #### 5 7021-8 ####[facility] HOSPITALZENA [id number] [place] [address] [place] Immature granulocytes (Bld) [#/Vol] 10*3/uL Normal <0.10 [facility] Comment on above: Order Comment: Speci men Type: BLOOD SPECIMENOrdering Facility: [facility] Address: [address] [place] [address] Performed By: #### 5 7021-8 ####[facility] HOSPITALNCLIA [id number] [place] [address] [place] Immature granulocytes/100 WBC (Bld) 0.2 % Normal [facility] Comment on above: Order Comment: Speci men Type: BLOOD SPECIMENOrdering Facility: [facility] Address: [address] [place] [address] Performed By: #### 5 7021-8 ####[facility] HOSPITALWNCLIA [id number] [place] [address] [place] Lymphocytes (Bld) [#/Vol] 1.04 10*3/uL Normal 1.00-4.00 [facility] Comment on above: Order Comment: Speci men Type: BLOOD SPECIMENOrdering Facility: [facility] Address: [address] [place] [address] Performed By: #### 5 7021-8 ####[facility] HOSPITALNCA [id number] [place] [address] [place] Lymphocytes/100 WBC (Bld) 11.9 % Normal [facility] Comment on above: Order Comment: Speci men Type: BLOOD SPECIMENOrdering Facility: [facility] Address: [address] [place] [address] Performed By: #### 5 7021-8 ####[facility] [id number] [place] [address] [place] MCH (RBC) [Entitic mass] 28.9 pg Normal 26.0-34.0 [facility] Comment on above: Order Comment: Speci men Type: BLOOD SPECIMENOrdering Facility: [facility] Address: [address] [place] [address] Performed By: #### 5 7021-8 ####[facility] CENTERLIA [id number] [place] [address] [place] MCHC (RBC) [Mass/Vol] 32.9 g/dL Normal 30.5-36.0 [facility] Comment on above: Order Comment: Speci men Type: BLOOD SPECIMENOrdering Facility: [facility] Address: [address] [place] [address] Performed By: #### 5 7021-8 ####[facility] HOSPITALNCLI [id number] [place] [address] [place] MCV (RBC) [Entitic vol] 87.7 fL Normal 80.0-100.0 C [facility] Comment on above: Order Comment: Speci men Type: BLOOD SPECIMENOrdering Facility: [facility] Address: [address] [place] [address] Performed By: #### 5 7021-8 ####[facility] [id number] [place] [address] [place] Monocytes (Bld) [#/Vol] 0.64 10*3/uL Normal <0.87 [facility] Comment on above: Order Comment: Speci men Type: BLOOD SPECIMENOrdering Facility: [facility] Address: [address] [place] [address] Performed By: #### 5 7021-8 ####[facility] [id number] [place] [address] [place] Monocytes/100 WBC (Bld) 7.3 % Normal C [facility] Comment on above: Order Comment: Speci men Type: BLOOD SPECIMENOrdering Facility: [facility] Address: [address] [place] [address] Performed By: #### 5 7021-8 ####[facility] HOS[facility]ITALA [id number] [place] [address] [place] Neutrophils (Bld) [#/Vol] 6.87 10*3/uL Normal 1.45-7.50 [facility] Comment on above: Order Comment: Speci men Type: BLOOD SPECIMENOrdering Facility: [facility] Address: [address] [place] [address] Performed By: #### 5 7021-8 ####[facility]ITALA [id number] [place] [address] [place] Neutrophils/100 WBC (Bld) 78.7 % Normal [facility] Comment on above: Order Comment: Speci men Type: BLOOD SPECIMENOrdering Facility: [facility] Address: [address] [place] [address] Performed By: #### 5 7021-8 ####[facility] ELLENSherryNCTAINA [id number] [place] [address] [place] Nucleated RBC (Bld) [#/Vol] 10*3/uL Normal <0.01 [facility] Comment on above: Order Comment: Speci men Type: BLOOD SPECIMENOrdering Facility: [facility] Address: [address] [place] [address] Performed By: #### 5 7021-8 ####[facility]ITALKAVITASAN [facility] [id number] [place] [address] [place] Nucleated RBC/100 WBC (Bld) [Ratio] 0.0 /100 WBC Normal [facility] Comment on above: Order Comment: Speci men Type: BLOOD SPECIMENOrdering Facility: [facility] Address: [address] [place] [address] Performed By: #### 5 7021-8 ####[facility] [id number] [place] [address] [place] Platelet mean volume (Bld) [Entitic vol] 10.4 fL Normal 9.0-12.7 [facility] Comment on above: Order Comment: Speci men Type: BLOOD SPECIMENOrdering Facility: [facility] Address: [address] [place] [address] Performed By: #### 5 7021-8 ####[facility] HOSPITALNCA [id number] [place] [address] [place] Platelets (Bld) [#/Vol] 184 10*3/uL Normal 150-400 [facility] Comment on above: Order Comment: Speci men Type: BLOOD SPECIMENOrdering Facility: [facility] Address: [address] [place] [address] Performed By: #### 5 7021-8 ####[facility] HOSPITALNCLIA [id number] [place] [address] [place] RBC (Bld) [#/Vol] 3.50 10*6/uL Low 4.20-6.00 [facility] Comment on above: Order Comment: Speci men Type: BLOOD SPECIMENOrdering Facility: [facility] Address: [address] [place] [address] Performed By: #### 5 7021-8 ####[facility]ITALNCLIA [id number] [place] [address] [place] WBC (Bld) [#/Vol] 8.74 10*3/uL Normal 3.70-11.00 [facility] Comment on above: Order Comment: Speci men Type: BLOOD SPECIMENOrdering Facility: [facility] Address: [address] [place] [address] Performed By: #### 5 7021-8 ####[facility] CENTERLIA [id number] [place] [address] [place] CNPNon 11-29-2024 CNPN Normal [facility] Vit B12 SerPl-mCncon 11-29- 025 Cobalamin (Vitamin B12) [Mass/Vol] 972 pg/mL Normal 232-1245 [facility] Comment on above: Order Comment: Speci men Type: BLOOD SPECIMENOrdering Facility: [facility] Address: [address] [place], [place] [id number] Performed By: #### 2 132-9 ####[facility] LABCLIA [id number] [place] [id number] [place] CNOVon 11-28-2024 CNOV Normal [facility] CNPNon 11-28-2024 CNPN Normal [facility] CNOVon 11-23-2024 CNOV Office Visit (NEAGCL M) AXLE SERRANO ([id number]) 1940 M Date Time Provider Department 11/23/24 1:00 PM YEYO BAILEY NEAGCLM During your visit today, we recorded the following information about you: Pulse Respiration Blood pressure 46/minute 16/minute 140/67 Yeyo Bailey APRN.CNP 11/23/2024 1:35 PM Signed NEUROSURGERY FOLLOW UP OFFICE NOTE Yeyo Bailey APRN.CNP Date of visit: November 23, 2024 Patient Name: Mr.Merven Junior Serrano Date of : 1940 Current Age: [age] year old Sex: male MRN/E# [id number] Last Office Visit: Hospital follow-up CHIEF COMPLAINT: Patient presents with: Established Patient HPI: The patient presents for a hospital follow up with imaging (CT B) for evaluation. This is an 84-year-old male with a PMHx of Parkinson's, DM, CAD, CKD, B-cell lymphoma s/p chemotherapy, anemia, A-fib (ASA) who was seen for consult at [facility] on 10/25/[address] Reese. Patient underwent an MRI of the brain by his neurologist for dementia workup. He was contacted by the neurology office to present to the ED after an abnormality was noted on the scan. Once in the ED his reported that he had a bad fall in March 2024 causing him to strike his face on the concrete. Workup was negative for acute intracranial abnormality. 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 During that admission he developed a new onset of atrial fibrillation and was started on Eliquis and low-dose ASA. He followed up with cardiology and had a Holter monitor that showed no episodes of atrial fibrillation. Eliquis was discontinued and he remained on low-dose ASA. His reported that confusion has improved since his admission in April. MRI was reviewed and showed bilateral subdural fluid collections. There was no evidence of acute hemorrhage noted. There is no evidence of compression or midline shift. CT brain demonstrated a chronic appearance of these subdural fluid collections. No neurosurgical intervention was indicated. He was cleared to continue low-dose ASA with recommendation to follow-up with neurosurgery in 2 weeks with a repeat CT. Today he states that he is overall doing well and denies any specific complaints or concerns. He denies any headache, speech deficits, seizure activity, motor or sensory changes. He does report intermittent episodes of blurry vision in the right eye. States he was seen by his eye doctor who changed his prescription and it is slightly improved however he continues to have difficulty reading especially in the dark. He is scheduled to follow-up with his eye doctor next month for a follow-up visit. Presents for image review, evaluation and plan of care. SYMPTOMS: Mild right eye vision changes PREVIOUS CONSERVATIVE TREATMENTS: None PREVIOUS SURGERY: None SURGICAL RISK: Smoker: Former Diabetic: Yes -A1c 7.5% on 09/18/2024 Anticoagulants / Antiplatelets: ASA 81 mg Occupation: N/A PAIN EVALUATION No data found in the last 1 encounters. 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 Splenic artery aneurysm repeat scans showed no change/not identified PAST SURGICAL HISTORY Procedure Laterality Date CHOLECYSTECTOMY COLONOSCOPY FLX DX W/COLLJ SPEC WHEN PFRMD 07/13/2005 COLONOSCOPY FLX DX W/COLLJ SPEC WHEN PFRMD 03/11/2015 Colonoscopy COLONOSCOPY SCREENING 11/12/2021 Dr Cano no repeat due to age ESOPHAGOGASTRODUODENOSCOPY TRANSORAL DIAGNOSTIC 03/11/2015 EGD PAST SURGICAL HISTORY OF 2020 Aortic Valve Replacement FAMILY HISTORY Problem Relation Age of Onset Coronary Artery Disease Mother Coronary Artery Disease Father Coronary Artery Disease Brother Heart disease Brother Heart disease Maternal Grandmother Heart disease Maternal Grandfather Heart disease Paternal Grandmother Heart disease Paternal Grandfather ALLERGIES Allergen Reactions Mai Inhibitors Other: See Comments Hyperkalemia Atorvastatin Myalgia Pravastatin Myalgia Juejxfu-Png-Yiz Red* Myalgia Current Outpatient Medications Medication Sig Dispense Refill aspirin, enteric coated (ASPIRIN, ENTERIC COATED) 81 mg EC tablet Take 81 mg by mouth once daily. carbidopa-levodopa (SINEMET) 25-100 mg per tablet Take 1 (more content not included)... Normal [facility] Cardiology Visit Reporton Cardiology Visit Report [facility] [address] [place] [address] OFFICE VISIT Date of Service: 11/14/24 MR#: [id number] Acct: [id number] Name: AXEL SERRANO Rep #: [id number] : 1940 Provider: ANDRIA carrillo Age/Sex: 84/M Location[place] [facility] Status: Signed HPI HPI History of Present Illness Details: Axel Serrano is an 84 -year-old gentleman with a history of HTN, coronary evaluation showing moderate coronary artery disease, aortic valve disease. His coronary evaluation in August 2020 demonstrated mild to moderate coronary artery disease with no high-grade stenosis. He had previously had an FFR to the right posterior descending artery which demonstrated no significant ischemia. His echocardiogram demonstrated an ejection fraction of 40%, with basal inferior hypokinesis and a peak mean gradient of 54/35 mmHg. Due to the low ejection fraction it was felt that he probably had low flow low gradient aortic stenosis. He was referred for an evaluation for possible TAVR. 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 You remember that he had an echocardiogram performed in November 2020 demonstrating an ejection fraction of 47% with stage I diastolic dysfunction. He had his 1 year post TAVR echocardiogram on 10/13/2021 showing ejection fraction of 55%, stage I diastolic dysfunction, peak aortic valve gradient 19 mmHg, and mean aortic valve gradient of 11 mmHg. Pt was in the hospital for altered mental status and Afib with RVR in 04/2024. He was started on Eliquis and did spent time in TCU. He is not aware of any other episodes of afib. He completed a Holter monitor in August 2024 that showed average heart rate 59 bpm, no atrial fibrillation, and PVC burden 6.7%. His Eliquis has been discontinued due to increased fall risk and risk outweighing benefit. He denies chest, arm, jaw, or neck discomfort. He denies palpitations. He states bilateral lower extremity edema. He denies claudication. He denies shortness of breath with activity, shortness of breath at rest, orthopnea, or PND. He denies chronic cough. He denies significant, sudden weight gain. He acknowledges occasional dizziness with position change. He denies lightheadedness, near- syncope, or syncope. He denies blood in urine, blood in stool, or epistaxis. He denies fever with chills. He denies myalgia. He denies fatigue. He states weakness that he attributes to Parkinson's. His exercise level has remained stable. 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: No Accompanied by: Is patient in pain?: No Allergies No Known Allergies Allergy (Verified 11/14/24 11:40) Medications ???Medication ???Instructions ???Recorded ???Confirmed ???Type folic acid 1 mg tablet 1 mg PO DAILY [facility] 11/14/24 History atorvastatin 40 mg tablet 40 mg PO QHS cholesterol 02/20/22 11/14/24 History sertraline 50 mg tablet 50 mg PO DAILY Depression 02/20/22 11/14/24 History mecobalamin (vitamin B12) 1,000 1,000 mcg PO DAILY health 11/16/23 11/14/24 History mcg chewable tablet [facility] metformin 500 mg tablet,extended 500 mg PO BID DM 11/16/23 11/14/24 History release 24 hr sitagliptin phosphate 50 mg tablet 50 mg PO DAILY Diabetes 11/16/23 11/14/24 History (Januvia) tamsulosin 0.4 mg capsule (Flomax) 0.8 mg PO QHS bladder 04/24/24 0 11/14/24 History metoprolol succinate 50 mg 50 mg PO BID 30 days #60 tabs 01/0 12/0111/14/24 Rx tablet,extended release 24 hr rivastigmine tartrate 1.5 mg 1.5 mg PO BIDCM 30 days #60 caps 0 05/16/24 11/14/24 Rx capsule gabapentin 300 mg capsule 300 mg PO BID 08/09/24 11/14/24 Hi story ferrous gluconate 324 mg (37.5 mg 325 mg PO DAILY [facility] 09/03/24 11/14/24 History iron) tablet furosemide 40 mg tablet 40 mg PO DAILY water pill 09/03/24 11/14/24 History lorazepam 0.5 mg tablet 0.5 mg PO Q4H PRN aggitation 11/14/24 History restlessness aspirin 81 mg tablet,delayed 81 mg PO QDAY 10/06/24 11/14/24 Hi story release (Adult Low Dose Aspirin) carbidopa 25 mg-levodopa 100 mg 1 tab PO TID 11/14/24 11/14/24 His tory tablet Ejection fraction %: 40 Have you fallen in the past year?: [facility] Paroxysmal atrial fibrillation with RVR Parkinson disease Loss of hearing Wears glasses Wears dentures Depression Uses wheelchair Arthritis Anemia Easy bruising Back pain Dietary restriction Former smoker Shortness (more content not included)... Normal [facility] CT BRAIN WO IVCONon 11-10-19 CT BRAIN WO IVCON Normal [facility] CT Head WO contraston 2024 IMPRESSION: No significant interval change in size of thin hypoattenuating subdural fluid collections along the bilateral cerebral convexities without substantial mass effect, measuring up to 5 mm in greatest thickness. No midline shift. Kaiawhina Kohanga Reo: PSCB Transcribe Date/Time: Nov 09 2024 12:14P Dictated by : NELSON PROCTOR MD This examination was interpreted and the report reviewed and electronically signed by: NELSON PROCTOR MD on Nov 09 2024 12:17PM [facility] DIVISION OF RADIOLOGY * * *Final Report* * * DATE OF EXAM: Nov 09 2024 11:54AM [facility] 0504 - CT BRAIN WO IVCON / PROCEDURE REASON: Subdural hematoma (HCC) * * * * Physician Interpretation * * * * EXAMINATION: CT BRAIN WO IVCON CLINICAL HISTORY: Subdural hematoma TECHNIQUE: Serial axial images without IV contrast were obtained from the vertex to the foramen magnum. MQ: CTBWO_3 CT Radiation dose: Integrated Dose-Length Product (DLP) for this visit = 849 mGy*cm CT Dose Reduction Employed: Automated exposure control(AEC) and iterative recon COMPARISON: Head CT 10/25/2024 RESULT: Localizer images: Unremarkable. Post-operative change: None. Acute change: No evidence of acute large vascular territory infarct. Hemorrhage: No evidence of acute intracranial hemorrhage. ECASS hemorrhagic transformation score: Not Applicable Mass Lesion / Mass Effect: No significant interval change in size of thin hypoattenuating subdural fluid collections along the bilateral cerebral convexities without substantial mass effect, measuring up to 5 mm in greatest thickness. No midline shift. Chronic change: Patchy areas of hypoattenuation throughout the bilateral cerebral hemispheric white matter are compatible with sequelae of chronic small vessel disease. Diffuse brain volume loss with ex-vacuo ventricular enlargement. Intracranial arterial calcifications are present. Ventricles: No evidence of hydrocephalus. Paranasal sinuses and skull base: Multiple retention cysts and scattered mucosal thickening in the bilateral paranasal sinuses. The skull base and imaged soft tissues are unremarkable. DIVISION OF RADIOLOGY Provider, [facility] - 11/09/2024 * * *Final Report* * * DATE OF EXAM: Nov 09 2024 11:54AM [facility] 0504 - CT BRAIN WO IVCON / PROCEDURE REASON: Subdural hematoma (HCC) * * * * Physician Interpretation * * * * EXAMINATION: CT BRAIN WO IVCON CLINICAL HISTORY: Subdural hematoma TECHNIQUE: Serial axial images without IV contrast were obtained from the vertex to the foramen magnum. MQ: CTBWO_3 CT Radiation dose: Integrated Dose-Length Product (DLP) for this visit = 849 mGy*cm CT Dose Reduction Employed: Automated exposure control(AEC) and iterative recon COMPARISON: Head CT 10/25/2024 RESULT: Localizer images: Unremarkable. Post-operative change: None. Acute change: No evidence of acute large vascular territory infarct. Hemorrhage: No evidence of acute intracranial hemorrhage. ECASS hemorrhagic transformation score: Not Applicable Mass Lesion / Mass Effect: No significant interval change in size of thin hypoattenuating subdural fluid collections along the bilateral cerebral convexities without substantial mass effect, measuring up to 5 mm in greatest thickness. No midline shift. Chronic change: Patchy areas of hypoattenuation throughout the bilateral cerebral hemispheric white matter are compatible with sequelae of chronic small vessel disease. Diffuse brain volume loss with ex-vacuo ventricular enlargement. Intracranial arterial calcifications are present. Ventricles: No evidence of hydrocephalus. Paranasal sinuses and skull base: Multiple retention cysts and scattered mucosal thickening in the bilateral paranasal sinuses. The skull base and imaged soft tissues are unremarkable. IMPRESSION IMPRESSION: No significant interval change in size of thin hypoattenuating subdural fluid collections along the bilateral cerebral convexities without substantial mass effect, measuring up to 5 mm in greatest thickness. No midline shift. Kaiawhina Kohanga Reo: DAVID Transcribe Date/Time: Nov 09 2024 12:14P Dictated by : NELSON PROCTOR MD This examination was interpreted and the report reviewed and electronically signed by: NELSON PROCTOR MD on Nov 09 2024 12:17PM [facility] Radiology Study observation (narrative) [facility] CT Head WO contrastOrdered B y: Ccf Provider on 11-09-2024 [facility] CBC W Auto Differential pane l (Bld)on 11-01-2024 Basophils (Bld) [#/Vol] 0.04 10*3/uL Normal <0.11 [facility] Comment on above: Order Comment: Speci men Type: BLOOD SPECIMENOrdering Facility: [facility] Address: [address] [place] [address] Performed By: #### 5 7021-8 ####[facility] [id number] [place] [address] [place] Basophils/100 WBC (Bld) 0.5 % Normal C [facility] Comment on above: Order Comment: Speci men Type: BLOOD SPECIMENOrdering Facility: [facility] Address: [address] [place] [address] Performed By: #### 5 7021-8 ####[facility] [id number] [place] [address] [place] Differential cell count method Nom (Bld) Auto Normal [facility] Comment on above: Order Comment: Speci men Type: BLOOD SPECIMENOrdering Facility: [facility] Address: [address] [place] [address] Performed By: #### 5 7021-8 ####[facility] [id number] [place] [address] [place] Eosinophils (Bld) [#/Vol] 0.55 10*3/uL High <0.46 [facility] Comment on above: Order Comment: Speci men Type: BLOOD SPECIMENOrdering Facility: [facility] Address: [address] [place] [address] Performed By: #### 5 7021-8 ####[facility] [id number] [place] [address] [place] Eosinophils/100 WBC (Bld) 6.3 % Normal [facility] Comment on above: Order Comment: Speci men Type: BLOOD SPECIMENOrdering Facility: [facility] Address: [address] [place] [address] Performed By: #### 5 7021-8 ####[facility] [id number] [place] [address] [place] Erythrocyte distribution width (RBC) [Ratio] 15.0 % Normal 11.5-15.0 [facility] Comment on above: Order Comment: Speci men Type: BLOOD SPECIMENOrdering Facility: [facility] Address: [address] [place] [address] Performed By: #### 5 7021-8 ####[facility] [id number] [place] [address] [place] Hematocrit (Bld) [Volume fraction] 29.8 % Low 39.0-51.0 [facility] Comment on above: Order Comment: Speci men Type: BLOOD SPECIMENOrdering Facility: [facility] Address: [address] [place] [address] Performed By: #### 5 7021-8 ####[facility]AM[facility] [id number] [place] [address] [place] Hemoglobin (Bld) [Mass/Vol] 9.9 g/dL Low 13.0-17.0 [facility] Comment on above: Order Comment: Speci men Type: BLOOD SPECIMENOrdering Facility: [facility] Address: [address] [place] [address] Performed By: #### 5 7021-8 ####[facility] [id number] [place] [address] [place] Immature granulocytes (Bld) [#/Vol] 0.06 10*3/uL Normal <0.10 [facility] Comment on above: Order Comment: Speci men Type: BLOOD SPECIMENOrdering Facility: [facility] Address: [address] [place] [address] Performed By: #### 5 7021-8 ####[facility] [id number] [place] [address] [place] Immature granulocytes/100 WBC (Bld) 0.7 % Normal [facility] Comment on above: Order Comment: Speci men Type: BLOOD SPECIMENOrdering Facility: [facility] Address: [address] [place] [address] Performed By: #### 5 7021-8 ####[facility]ENTERL[facility] [id number] [place] [address] [place] Lymphocytes (Bld) [#/Vol] 1.16 10*3/uL Normal 1.00-4.00 [facility] Comment on above: Order Comment: Speci men Type: BLOOD SPECIMENOrdering Facility: [facility] Address: [address] [place] [address] Performed By: #### 5 7021-8 ####[facility] [id number] [place] [address] [place] Lymphocytes/100 WBC (Bld) 13.2 % Normal [facility] Comment on above: Order Comment: Speci men Type: BLOOD SPECIMENOrdering Facility: [facility] Address: [address] [place] [address] Performed By: #### 5 7021-8 ####[facility] HOS[facility]ITALZEN [id number] [place] [address] [place] MCH (RBC) [Entitic mass] 28.7 pg Normal 26.0-34.0 [facility] Comment on above: Order Comment: Speci men Type: BLOOD SPECIMENOrdering Facility: [facility] Address: [address] [place] [address] Performed By: #### 5 7021-8 ####[facility] [id number] [place] [address] [place] MCHC (RBC) [Mass/Vol] 33.2 g/dL Normal 30.5-36.0 [facility] Comment on above: Order Comment: Speci men Type: BLOOD SPECIMENOrdering Facility: [facility] Address: [address] [place] [address] Performed By: #### 5 7021-8 ####[facility]ENTERTAINA [id number] [place] [address] [place] MCV (RBC) [Entitic vol] 86.4 fL Normal 80.0-100.0 C [facility] Comment on above: Order Comment: Speci men Type: BLOOD SPECIMENOrdering Facility: [facility] Address: [address] [place] [address] Performed By: #### 5 7021-8 ####[facility] HOSPITALNCLI [id number] [place] [address] [place] Monocytes (Bld) [#/Vol] 0.58 10*3/uL Normal <0.87 [facility] Comment on above: Order Comment: Speci men Type: BLOOD SPECIMENOrdering Facility: [facility] Address: [address] [place] [address] Performed By: #### 5 7021-8 ####[facility] HOSPITALNCA [id number] [place] [address] [place] Monocytes/100 WBC (Bld) 6.6 % Normal C [facility] Comment on above: Order Comment: Speci men Type: BLOOD SPECIMENOrdering Facility: [facility] Address: [address] [place] [address] Performed By: #### 5 7021-8 ####[facility]ITALNCLIA [id number] [place] [address] [place] Neutrophils (Bld) [#/Vol] 6.40 10*3/uL Normal 1.45-7.50 [facility] Comment on above: Order Comment: Speci men Type: BLOOD SPECIMENOrdering Facility: [facility] Address: [address] [place] [address] Performed By: #### 5 7021-8 ####[facility] HOSPITALA [id number] [place] [address] [place] Neutrophils/100 WBC (Bld) 72.7 % Normal [facility] Comment on above: Order Comment: Speci men Type: BLOOD SPECIMENOrdering Facility: [facility] Address: [address] [place] [address] Performed By: #### 5 7021-8 ####[facility]ITALNCLIA [id number] [place] [address] [place] Nucleated RBC (Bld) [#/Vol] 10*3/uL Normal <0.01 [facility] Comment on above: Order Comment: Speci men Type: BLOOD SPECIMENOrdering Facility: [facility] Address: [address] [place] [address] Performed By: #### 5 7021-8 ####[facility] [id number] [place] [address] [place] Nucleated RBC/100 WBC (Bld) [Ratio] 0.0 /100 WBC Normal [facility] Comment on above: Order Comment: Speci men Type: BLOOD SPECIMENOrdering Facility: [facility] Address: [address] [place] [address] Performed By: #### 5 7021-8 ####[facility]ITALNCLIA [id number] [place] [address] [place] Platelet mean volume (Bld) [Entitic vol] 10.5 fL Normal 9.0-12.7 [facility] Comment on above: Order Comment: Speci men Type: BLOOD SPECIMENOrdering Facility: [facility] Address: [address] [place] [address] Performed By: #### 5 7021-8 ####[facility] HOSPITALNCA [id number] [place] [address] [place] Platelets (Bld) [#/Vol] 176 10*3/uL Normal 150-400 [facility] Comment on above: Order Comment: Speci men Type: BLOOD SPECIMENOrdering Facility: [facility] Address: [address] [place] [address] Performed By: #### 5 7021-8 ####[facility]ITALNCLIA [id number] [place] [address] [place] RBC (Bld) [#/Vol] 3.45 10*6/uL Low 4.20-6.00 [facility] Comment on above: Order Comment: Speci men Type: BLOOD SPECIMENOrdering Facility: [facility] Address: [address] [place] [address] Performed By: #### 5 7021-8 ####[facility] HOSPITALTOWNCLIA [id number] [place] [address] [facility] [place] WBC (Bld) [#/Vol] 8.79 10*3/uL Normal 3.70-11.00 [facility] Comment on above: Order Comment: Speci men Type: BLOOD SPECIMENOrdering Facility: [facility] Address: [address] [place] [address] Performed By: #### 5 7021-8 ####[facility]ITALNCLIA [id number] [place], [place] [id number] [place] [address] [place] ALLIED HEALTHon 10-25-2024 [facility] HNO ID: [id number] Author: JUNG PATRICK RT(R) Service: ? Author Type: Technologist Type: Allied Health Filed: 10/25/2024 20:17 Note Text: Radiology Service Progress Note PATIENT NAME: Axel Serrano DATE OF SERVICE: October 25, 2024 TIME: 8:16 PM PATIENT IDENTITY VERIFICATION COMPLETED USING TWO (2) IDENTIFIERS: Name and Date of confirmed by patient verbally and Name and Date of confirmed by identification band. FALL SCREENING: Has the patient had 2 falls in the last year or 1 fall with injury or currently using an Ambulatory Assistive Device (Walker, Cane, Wheelchair, Crutches, etc.)? Emergency Room Patient: Screened in ED PATIENT GENDER DATA: Assigned male at PATIENT RELEVANT IMPLANT DATA REVIEWED: Yes PATIENT PRESENTS WITH AN IMPLANTABLE OR ATTACHED QUALITY AND RELIABILITY ENGINEER: No RADIOLOGY DEPARTMENT: CT; Exam(s) Completed: Brain PERIPHERAL IV DATA: Not applicable SIGNED BY: RT Nunu(R) October 25, 2024 8:16 PM Normal [facility] CBC W Auto Differential pane l (Bld)on 10-25-2024 Basophils (Bld) [#/Vol] 0.05 10*3/uL Normal <0.11 [facility] Comment on above: Order Comment: Speci men Type: BLOOD SPECIMEN Ordering Facility: [facility] Address: [address] [place] [address] Performed By: #### 5 7021-8 #### [facility] CLIA [id number] [address] Basophils/100 WBC (Bld) 0.6 % Normal [facility] Comment on above: Order Comment: Speci men Type: BLOOD SPECIMEN Ordering Facility: [facility] Address: [address] [place] [address] Performed By: #### 5 7021-8 #### [facility] CLIA [id number] [address] OF [facility] Differential cell count method Nom (Bld) Auto Normal [facility] Comment on above: Order Comment: Speci men Type: BLOOD SPECIMEN Ordering Facility: [facility] Address: [address] [place] [address] Performed By: #### 5 7021-8 #### [facility] CLIA [id number] [address] [place] Eosinophils (Bld) [#/Vol] 0.63 10*3/uL High <0.46 [facility] Comment on above: Order Comment: Speci men Type: BLOOD SPECIMEN Ordering Facility: [facility] Address: [address] [place] [address] Performed By: #### 5 7021-8 #### [facility] CLIA [id number] [address] Eosinophils/100 WBC (Bld) 7.2 % Normal [facility] Comment on above: Order Comment: Speci men Type: BLOOD SPECIMEN Ordering Facility: [facility] Address: [address] [place] [address] Performed By: #### 5 7021-8 #### [facility] CLIA [id number] [address] Erythrocyte distribution width (RBC) [Ratio] 14.8 % Normal 11.5-15.0 [facility] Comment on above: Order Comment: Speci men Type: BLOOD SPECIMEN Ordering Facility: [facility] Address: [address] [place] [address] Performed By: #### 5 7021-8 #### [facility] CLIA [id number] [address] [facility] Hematocrit (Bld) [Volume fraction] 32.3 % Low 39.0-51.0 [facility] Comment on above: Order Comment: Speci men Type: BLOOD SPECIMEN Ordering Facility: [facility] Address: [address] [place] [address] Performed By: #### 5 7021-8 #### [facility] CLIA [id number] [address] [place] Hemoglobin (Bld) [Mass/Vol] 10.3 g/dL Low 13.0-17.0 [facility] Comment on above: Order Comment: Speci men Type: BLOOD SPECIMEN Ordering Facility: [facility] Address: [address] [place] [address] Performed By: #### 5 7021-8 #### [facility] CLIA [id number] [address] [place] Immature granulocytes (Bld) [#/Vol] 0.07 10*3/uL Normal <0.10 [facility] Comment on above: Order Comment: Speci men Type: BLOOD SPECIMEN Ordering Facility: [facility] Address: [address] [place] [address] Performed By: #### 5 7021-8 #### [facility] CLIA [id number] [address] [place] Immature granulocytes/100 WBC (Bld) 0.8 % Normal [facility] Comment on above: Order Comment: Speci men Type: BLOOD SPECIMEN Ordering Facility: [facility] Address: [address] [place] [address] Performed By: #### 5 7021-8 #### [facility] CLIA [id number] [address] [place] Lymphocytes (Bld) [#/Vol] 1.18 10*3/uL Normal 1.00-4.00 [facility] Comment on above: Order Comment: Speci men Type: BLOOD SPECIMEN Ordering Facility: [facility] Address: [address] [place] [address] Performed By: #### 5 7021-8 #### [facility] CLIA [id number] [address] Lymphocytes/100 WBC (Bld) 13.5 % Normal [facility] Comment on above: Order Comment: Speci men Type: BLOOD SPECIMEN Ordering Facility: [facility] Address: [address] [place] [address] Performed By: #### 5 7021-8 #### [facility] CLIA [id number] [address] MCH (RBC) [Entitic mass] 28.3 pg Normal 26.0-34.0 [facility] Comment on above: Order Comment: Speci men Type: BLOOD SPECIMEN Ordering Facility: [facility] Address: [address] [place] [address] Performed By: #### 5 7021-8 #### [facility] CLIA [id number] [address] MCHC (RBC) [Mass/Vol] 31.9 g/dL Normal 30.5-36.0 [facility] Comment on above: Order Comment: Speci men Type: BLOOD SPECIMEN Ordering Facility: [facility] Address: [address] [place] [address] Performed By: #### 5 7021-8 #### [facility] CLIA [id number] [address] MCV (RBC) [Entitic vol] 88.7 fL Normal 80.0-100.0 [facility] Comment on above: Order Comment: Speci men Type: BLOOD SPECIMEN Ordering Facility: [facility] Address: [address] [place] [address] Performed By: #### 5 7021-8 #### [facility] CLIA [id number] [address] Monocytes (Bld) [#/Vol] 0.75 10*3/uL Normal <0.87 [facility] Comment on above: Order Comment: Speci men Type: BLOOD SPECIMEN Ordering Facility: [facility] Address: [address] [place] [address] Performed By: #### 5 7021-8 #### [facility] CLIA [id number] [address] Monocytes/100 WBC (Bld) 8.6 % Normal [facility] Comment on above: Order Comment: Speci men Type: BLOOD SPECIMEN Ordering Facility: [facility] Address: [address] [place] [address] Performed By: #### 5 7021-8 #### [facility] CLIA [id number] [address] Neutrophils (Bld) [#/Vol] 6.05 10*3/uL Normal 1.45-7.50 [facility] Comment on above: Order Comment: Speci men Type: BLOOD SPECIMEN Ordering Facility: [facility] Address: [address] [place] [address] Performed By: #### 5 7021-8 #### [facility] CLIA [id number] [address] Neutrophils/100 WBC (Bld) 69.3 % Normal [facility] Comment on above: Order Comment: Speci men Type: BLOOD SPECIMEN Ordering Facility: [facility] Address: [address] [place] [address] Performed By: #### 5 7021-8 #### [facility] CLIA [id number] [address] [place] Nucleated RBC (Bld) [#/Vol] 10*3/uL Normal <0.01 [facility] Comment on above: Order Comment: Speci men Type: BLOOD SPECIMEN Ordering Facility: [facility] Address: [address] [place] [address] Performed By: #### 5 7021-8 #### [facility] CLIA [id number] [address] [place] Nucleated RBC/100 WBC (Bld) [Ratio] 0.0 /100 WBC Normal [facility] Comment on above: Order Comment: Speci men Type: BLOOD SPECIMEN Ordering Facility: [facility] Address: [address] [place] [address] Performed By: #### 5 7021-8 #### [facility] CLIA [id number] [address] [place] Platelet mean volume (Bld) [Entitic vol] 10.5 fL Normal 9.0-12.7 [facility] Comment on above: Order Comment: Speci men Type: BLOOD SPECIMEN Ordering Facility: [facility] Address: [address] [place] [address] Performed By: #### 5 7021-8 #### [facility] CLIA [id number] [address] [place] Platelets (Bld) [#/Vol] 206 10*3/uL Normal 150-400 [facility] Comment on above: Order Comment: Speci men Type: BLOOD SPECIMEN Ordering Facility: [facility] Address: [address] [place] [address] Performed By: #### 5 7021-8 #### [facility] CLIA [id number] [address] [place] RBC (Bld) [#/Vol] 3.64 10*6/uL Low 4.20-6.00 [facility] Comment on above: Order Comment: Speci men Type: BLOOD SPECIMEN Ordering Facility: [facility] Address: [address] [place] [address] Performed By: #### 5 7021-8 #### [facility] CLIA [id number] [address] [place] WBC (Bld) [#/Vol] 8.73 10*3/uL Normal 3.70-11.00 [facility] Comment on above: Order Comment: Speci men Type: BLOOD SPECIMEN Ordering Facility: [facility] Address: [address] [place] [address] Performed By: #### 5 7021-8 #### [facility] CLIA [id number] 1 [place] [address] [facility] Heydi 10-25-2024 CNPN Telephone (AVPRAD) AXEL SERRANO ([id number]) 1940 M Date Time Provider Department 10/25/24 ARSH OTTO JR AVPRAD During your visit today, we recorded the following information about you: Arsh Otto Jr., MD 10/25/2024 3:22 PM Signed Contacted by radiology indicating patient with suspected subdural hematomas (see rad report). Possible cause of symptoms including AMS. Onset of SDH uncertain with prior imaging at OSH and not available for review. Last CT brain available is 04/2024 making no mention of bleed. Recently on Elquis for afib but switched to ASA on 10/05/24. Due to uncertainty of cause or duration of suspected SDHs recommend immediately ER evaluation (including coags and plt). Patient will be going to [facility]. I have contacted their ER and notified them of patient with details of history provided. D/w pt and pt en route now. Arsh Otto MD Allergies As of Date: 10/25/2024 Noted Allergy Reaction MAI INHIBITORS 12/16/2017 14 - Other: See Comments Comments: Hyperkalemia ATORVASTATIN 05/05/2017 17 - Myalgia PRAVASTATIN 03/24/2017 17 - Myalgia [id number] REDUCTASE INHIBIT*02/16/2019 17 - Myalgia Date Reviewed: 10/20/2024 Reviewed by: Arsh Otto Jr., MD - Fully Assessed Prescriptions as of 10/25/2024 - aspirin, enteric coated (ASPIRIN, ENTERIC COATED) 81 mg EC tablet Take 81 mg by mouth once daily. - carbidopa-levodopa (SINEMET) 25-100 mg per tablet Take 1 tablet at 7AM, Noon and 5PM. - sertraline (ZOLOFT) 50 mg tablet Take 1 tablet by mouth once daily. - LORazepam (ATIVAN) 0.5 mg Take 0.5 mg by mouth every 4 hours as needed. - metFORMIN ER (GLUCOPHAGE XR) 500 mg 24 hr tablet Take 1 tablet by mouth two times a day before meals. - apixaban (ELIQUIS) 5 mg tab(s) Take 1/2 tablet by mouth two times a day - rivastigmine tartrate (EXELON) 1.5 mg capsule TAKE 1 CAPSULE BY MOUTH 2 TIMES A DAY WITH MEALS - SITagliptin phosphate (JANUVIA) 50 mg tablet Take 1 tablet by mouth once daily. - tamsulosin (FLOMAX) 0.4 mg Take 2 capsules by mouth once daily. - metoprolol succinate ER (TOPROL XL) 50 mg 24 hr tablet take 1 tablet by mouth 2 times a day - ferrous gluconate 256 mg (28 mg iron) tab Take 1 tablet by mouth two times a day. - folic acid 1 mg tablet Take 1 tablet by mouth once daily. - gabapentin (NEURONTIN) 300 mg capsule Take 1 capsule by mouth two times a day. - atorvastatin (LIPITOR) 40 mg tablet Take 1 tablet by mouth daily at bedtime. For cholesterol. - furosemide (LASIX) 40 mg tablet Take 40 mg by mouth once daily. - cyanocobalamin (VITAMIN B-12) 1,000 mcg tab Take 1 tablet by mouth once daily. - blood sugar diagnostic (BLOOD GLUCOSE TEST) test strip Test blood sugar(s) 1 times daily. 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] 06/11/2005 09/16/2017 Abdominal or pelvic swelling, mass, or lump, ot*05/24/2006 02/25/2017 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) [C85.9A] 07/01/2006 TIA (Transient Ischemic Attack) [G45.9] 04/18/2009 Essential hypertension, benign [I10] 05/30/2012 Tremor, essential [G25.0] 05/30/2012 Diabetic neuropathy (HCC) [E11.40] 04/03/2014 12/18/2014 Diabetic polyneuropathy associated with type 2 *12/18/2014 Bladder stone [N21.0] 08/19/2015 02/25/2017 Benign prostatic hyperplasia without lower urin*08/19/2015 Hydronephrosis [N13.30] 08/19/2015 05/29/2022 Kidney stone [N20.0] 08/19/2015 02/25/2017 History of kidney stones [Z87.442] 05/25/2016 History of bladder stone [Z87.448] 05/25/2016 Vitamin B12 deficiency [E53.8] 02/25/2017 05/29/2022 Aortic stenosis [I35.0] 05/27/2017 Class 2 obesity with body mass index (BMI) of 3*09/14/2017 06/02/2023 CKD (chronic kidney disease) Stage 3, GFR 30-59*09/16/2017 Microalbuminuria [R80.9] 12/16/2017 Vitamin D deficiency [E55.9] 07/07/2018 History of non-ST elevation myocardial infarcti*02/01/2020 09/25/2024 Anemia due to vitamin B12 deficiency [D51.9] 02/07/2020 Anemia due to folic acid deficiency [D52.9] 11/26/2020 Type 2 diabetes mellitus with stage 3 chronic k*07/28/2021 Hypertensive kidney disease with stage 3 chroni*07/28/2021 Advance care planning [Z71.89] 07/30/2021 Anxiety with depression [F41.8] 05/29/2022 IRINEO (obstructive sleep apnea) [G47.33] 04/01/2022 Abnormal electrocardiography [R94.31] 03/23/2017 06/02/2023 Diagnosed: 06/02/2023 Coronary artery disease involving [place] cavazos*10/02/2020 Diagnosed: 06/02/2023 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 [facility] 10-25-2024 CONSULT HNO ID: [id number] Author: SEAN REESE MD Service: Neurosurgery Author Type: Physician Type: Consults Filed: 10/27/2024 13:20 Note Text: CONSULT: NEUROSURGERY SERVICE Patient Name: Axel Serrano Date of : 1940 SERVICE DATE: 10/25/2024 SERVICE TIME: 8:57 PM REASON FOR CONSULT: abnormal MRI brain REQUESTING PHYSICIAN: Dieudonne Lopez DO PRIMARY CARE PHYSICIAN: Arsh Polk MD Consultation requested by Dr. Lopez for an opinion regarding bilateral subdural collections. My final recommendations will be communicated back to the requesting physician by way of shared Medical record or letter to requesting physician via US mail. CHIEF COMPLAINT: abnormal MRI HISTORY OF PRESENT ILLNESS : Axel Serrano is a 84 year old male PMH Parkinson's, diabetes, CAD, CKD, B cell lymphoma s/p chemotherapy, anemia, atrial fibrillation (on ASA) who presented to ED after he was called by neurologist and told he had an abnormal MRI Brain earlier today. Patient reports he had an outpatient MRI ordered by his neurologist as part of a work up for dementia. reports patient had a bad fall in March, hitting his face on the concrete after tripping and falling at a restaurant. CT brain at that time was negative for acute findings. 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 reports he had been confused and picking at things in the air that weren't actually there. During that admission he also had new onset atrial fibrillation, so he was started on Eliquis and aspirin. He has since followed up with cardiology and had holter monitoring thatdid not show atrial fibrillation so the Eliquis was discontinued in September. He remains on Aspirin. Patient denies headaches, dizziness, recent falls, gait changes, nausea or vomiting. states patient has not shown any recent confusion and has improved since his admission in April. She has no concerns regarding his mental status or cognition at this time. 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 Splenic artery aneurysm repeat scans showed no change/not identified PAST SURGICAL HISTORY Procedure Laterality Date CHOLECYSTECTOMY COLONOSCOPY FLX DX W/COLLJ SPEC WHEN PFRMD 07/13/2005 COLONOSCOPY FLX DX W/COLLJ SPEC WHEN PFRMD 03/11/2015 Colonoscopy COLONOSCOPY SCREENING 11/12/2021 Dr Cano no repeat due to age ESOPHAGOGASTRODUODENOSCOPY TRANSORAL DIAGNOSTIC 03/11/2015 EGD PAST SURGICAL HISTORY OF 2020 Aortic Valve Replacement FAMILY HISTORY Problem Relation Age of Onset Coronary Artery Disease Mother Coronary Artery Disease Father Coronary Artery Disease Brother Heart disease Brother Heart disease Maternal Grandmother Heart disease Maternal Grandfather Heart disease Paternal Grandmother Heart disease Paternal Grandfather ALLERGIES Allergen Reactions Mai Inhibitors Other: See Comments Hyperkalemia Atorvastatin Myalgia Pravastatin Myalgia Rbcqdhv-Leq-Igb Red* Myalgia Current Facility-Administered Medications Medication Dose Route Frequency Provider Last Rate Last Admin NaCl 0.9% 500 mL iv bolus 500 mL INTRAVENOUS ONCE Kiya Garcia MD Current Outpatient Medications Medication Sig Dispense Refill aspirin, enteric coated (ASPIRIN, ENTERIC COATED) 81 mg EC tablet Take 81 mg by mouth once daily. carbidopa-levodopa (SINEMET) 25-100 mg per tablet Take 1 tablet at 7AM, Noon and 5PM. 90 tablet 2 sertraline (ZOLOFT) 50 mg tablet Take 1 tablet by mouth once daily. 90 tablet 3 LORazepam (ATIVAN) 0.5 mg Take 0.5 mg by mouth every 4 hours as needed. metFORMIN ER (GLUCOPHAGE XR) 500 mg 24 hr tablet Take 1 tablet by mouth two times a day before meals. 180 tablet 3 apixaban (ELIQUIS) 5 mg tab(s) Take 1/2 tablet by mouth two times a day 30 tablet 2 rivastigmine tartrate (EXELON) 1.5 mg capsule TAKE 1 CAPSULE BY MOUTH 2 TIMES A DAY WITH MEALS 135 capsule 3 SITagliptin phosphate (JANUVIA) 50 mg tablet Take 1 tablet by mouth once daily. 90 tablet 3 tamsulosin (FLOMAX) 0.4 mg Take 2 capsules by mouth once daily. 180 capsule 3 metoprolol succinate ER (TOPROL XL) 50 mg 24 hr tablet take 1 tablet by mouth 2 times a day 90 tablet 3 ferrous gluconate 256 mg (28 mg iron) tab Take 1 tablet by mouth two times a day. 180 tablet 1 folic acid 1 mg tablet T (more content not included)... Normal [facility] CT BRAIN WO IVCONon 10-26-[address] BRAIN WO IVCON * * *Final Report* * * DATE OF EXAM: Oct 25 2024 8:19PM [facility] 0504 - CT BRAIN WO IVCON / PROCEDURE REASON: Subdural hematoma * * * * Physician Interpretation * * * * EXAMINATION: CT BRAIN WO IVCON CLINICAL HISTORY: Subdural hematoma follow-up. TECHNIQUE: Serial axial images without IV contrast were obtained from the vertex to the foramen magnum. MQ: CTBWO_3 CT Radiation dose: Integrated Dose-Length Product (DLP) for this visit = 900 mGy*cm CT Dose Reduction Employed: Automated exposure control(AEC) and iterative recon COMPARISON: MRI brain 10/25/2024. RESULT: Localizer images: No significant findings. Post-operative change: None. Acute change: No evidence of an acute infarct or other acute parenchymal process. Hemorrhage: No significant increase in volume of thin bilateral cerebral convexity subdural collections. Mass Lesion / Mass Effect: There is no evidence of an intracranial mass. No significant mass effect. Chronic change: Scattered patchy foci of low attenuation are present within the supratentorial white matter, a nonspecific finding that most commonly represents mild small vessel disease. Parenchyma: There is mild generalized volume loss. The brain parenchyma is otherwise within normal limits for age. Ventricles: Ventricular enlargement concordant with the degree of parenchymal volume loss. Paranasal sinuses and skull base: The visualized paranasal sinuses are grossly clear. The skull base and imaged soft tissues are unremarkable. IMPRESSION: No significant increase in volume of thin bilateral cerebral convexity subdural collections. Kaiawhina Kohanga Reo: DAVID Transcribe Date/Time: Oct 25 2024 9:34P Dictated by : UZAIR PUENTES MD This examination was interpreted and the report reviewed and electronically signed by: UZAIR PUENTES MD on Oct 25 2024 9:39PM EST [id number] Normal [facility] Comprehensive metabolic 2000 panelon 10-25-2024 Albumin [Mass/Vol] 3.4 g/dL Low 3.9-4.9 [facility] Comment on above: Order Comment: Speci men Type: BLOOD SPECIMEN Ordering Facility: [facility] Address: [address] [place] [address] Performed By: #### 2 4323-8 #### [facility] CLIA [id number] [address] STATES OF [facility] ALP [Catalytic activity/Vol] 53 U/L Normal 38-113 [facility] Comment on above: Order Comment: Speci men Type: BLOOD SPECIMEN Ordering Facility: [facility] Address: [address] [place] [address] Performed By: #### 2 4323-8 #### [facility] CLIA [id number] [address] [place] [facility] ALT With P-5'-P [Catalytic activity/Vol] U/L Low 10-54 [facility] Comment on above: Order Comment: Speci men Type: BLOOD SPECIMEN Ordering Facility: [facility] Address: [address] [place] [address] Performed By: #### 2 4323-8 #### [facility] CLIA [id number] [address] Anion gap [Moles/Vol] 11 mmol/L Normal 8-15 [facility] Comment on above: Order Comment: Speci men Type: BLOOD SPECIMEN Ordering Facility: [facility] Address: [address] [place] [address] Performed By: #### 2 4323-8 #### [facility] CLIA [id number] [address] [place] With P-5'-P [Catalytic activity/Vol] 9 U/L Low 14-40 [facility] Comment on above: Order Comment: Speci men Type: BLOOD SPECIMEN Ordering Facility: [facility] Address: [address] [place] [address] Performed By: #### 2 4323-8 #### [facility] CLIA [id number] [address] [place] Bilirubin [Mass/Vol] 0.3 mg/dL Normal 0.2-1.3 [facility] Comment on above: Order Comment: Speci men Type: BLOOD SPECIMEN Ordering Facility: [facility] Address: [address] [place] [address] Performed By: #### 2 4323-8 #### [facility] CLIA [id number] [address] [place] Calcium [Mass/Vol] 9.0 mg/dL Normal 8.5-10.2 [facility] Comment on above: Order Comment: Speci men Type: BLOOD SPECIMEN Ordering Facility: [facility] Address: [address] [place] [address] Performed By: #### 2 4323-8 #### [facility] CLIA [id number] [address] [place] Chloride [Moles/Vol] 102 mmol/L Normal 98-107 [facility] Comment on above: Order Comment: Speci men Type: BLOOD SPECIMEN Ordering Facility: [facility] Address: [address] [place] [address] Performed By: #### 2 4323-8 #### [facility] CLIA [id number] [address] [place] CO2 [Moles/Vol] 25 mmol/L Normal 22-30 [facility] Comment on above: Order Comment: Speci men Type: BLOOD SPECIMEN Ordering Facility: [facility] Address: [address] [place] [address] Performed By: #### 2 4323-8 #### [facility] CLIA [id number] [address] [place] Creatinine [Mass/Vol] 2.21 mg/dL High 0.73-1.22 [facility] Comment on above: Order Comment: Speci men Type: BLOOD SPECIMEN Ordering Facility: [facility] Address: [address] [place] [address] Performed By: #### 2 4323-8 #### [facility] CLIA [id number] [address] [place] Creatinine and Glomerular filtration rate.predicted panel (S/P/Bld) 29 mL/min/1.73m??? Low >=60 [facility] Comment on above: Order Comment: Patricia quiroz Type: BLOOD SPECIMEN Ordering Facility: [facility] Address: [address] [place] [address] Result Comment: Lady mated Glomerular Filtration Rate (eGFR) is calculated using the 2020 CKD-EPI creatinine equation. This equation utilizes serum creatinine, sex, and age as parameters. The creatinine assay has traceable calibration to isotope dilution-mass spectrometry. Refer to KDIGO guidelines for clinical interpretation. In patients with unstable renal function, e.g. those with acute kidney injury, the eGFR may not accurately reflect actual GFR. Performed By: #### 2 4323-8 #### [facility] CLIA [id number] [address] [place] [address] [place] Glucose [Mass/Vol] 150 mg/dL High 74-99 [facility] Comment on above: Order Comment: Patricia quiroz Type: BLOOD SPECIMEN Ordering Facility: [facility] Address: [address] [place] [address] Result Comment: The [place] Diabetes [employer] (ADA) provides guidance for cutoff values for fasting glucose and random glucose. The ADA defines fasting as no caloric intake for at least 8 hours. Fasting plasma glucose results between 100 to 125 mg/dL indicate increased risk for diabetes (prediabetes). Fasting plasma glucose results greater than or equal to 126 mg/dL meet the criteria for diagnosis of diabetes. In the absence of unequivocal hyperglycemia, results should be confirmed by repeat testing. In a patient with classic symptoms of hyperglycemia or hyperglycemic crisis, random plasma glucose results greater than or equal to 200 mg/dL meet the criteria for diagnosis of diabetes. Reference: Standards of Medical Care in Diabetes 2016, [place] [employer]. Diabetes Care. 2016.39(Suppl 1). Performed By: #### 2 4323-8 #### [facility] CLIA [id number] [address] STATES OF [facility] Potassium [Moles/Vol] 4.6 mmol/L Normal 3.7-5.1 [facility] Comment on above: Order Comment: Speci men Type: BLOOD SPECIMEN Ordering Facility: [facility] Address: [address] [place] [address] Performed By: #### 2 4323-8 #### [facility] CLIA [id number] [address] OF [facility] Protein [Mass/Vol] 6.5 g/dL Normal 6.3-8.0 [facility] Comment on above: Order Comment: Speci men Type: BLOOD SPECIMEN Ordering Facility: [facility] Address: [address] [place] [address] Performed By: #### 2 4323-8 #### [facility] CLIA [id number] [address] Sodium [Moles/Vol] 138 mmol/L Normal 136-144 [facility] Comment on above: Order Comment: Speci men Type: BLOOD SPECIMEN Ordering Facility: [facility] Address: [address] [place] [address] Performed By: #### 2 4323-8 #### [facility] CLIA [id number] [address] Urea nitrogen [Mass/Vol] 32 mg/dL High 9-24 [facility] Comment on above: Order Comment: Speci men Type: BLOOD SPECIMEN Ordering Facility: [facility] Address: [address] [place] [address] Performed By: #### 2 4323-8 #### [facility] CLIA [id number] [address] ED NOTEon 10-25-2024 ED NOTE HNO ID: [id number] Author: MARLO BAI RN Service: ? Author Type: Registered Nurse Type: ED Notes Filed: 10/25/2024 20:12 Note Text: Patti GAMINGGY at bedside discussing hx with pt spouse. Normal [facility] ED NOTE HNO ID: [id number] Author: MARLO BAI RN Service: ? Author Type: Registered Nurse Type: ED Notes Filed: 10/25/2024 19:56 Note Text: To CT in cart Normal [facility] ED PROV NOTEon 10-25-2024 ED PROV NOTE HNO ID: [id number] Author: DIEUDONNE LOPEZ DO Service: Emergency Medicine Author Type: Resident Type: ED Provider Notes Filed: 11/02/2024 08:32 Note Text: Attestation signed by Dieudonne Lopez DO at 11/02/2024 8:32 AM Attending Physician Attestation Note: Gant findings confirmed. I saw the patient in coordination with the resident physician. I personally interviewed and examined the patient. I discussed the patient with the resident physician. I reviewed the resident physician's note. I was present for gant portions of and personally supervised any/all procedures. I personally saw the patient and performed a substantive portion of the visit including all aspects of the medical decision making. I agree with the resident physician's findings and medical decision making unless otherwise documented. Signature: Dieudonne Lopez DO Date: 11/02/2024 Time: 8:32 AM ED Note PATIENT NAME: Axel Serrano DATE: October 25, 2024 HPI This patient is an 84-year-old male who presents to the emergency department for evaluation of subdural fluid collections that were noted on outpatient MRI imaging. He has a past medical history significant for Parkinson's disease. He also has a history of TIA, CAD, CKD. He is on aspirin. Patient tells me that in April had a fall. Tells me that he was evaluated after this fall. Patient recently saw his neurologist. Neurologist was concerned that patient never had MRI imaging for workup of altered mental status during an admission. For this reason this was ordered. MRI reportedly showed concerns for subdural fluid collections. Patient is denying any new neurosymptoms. Does endorse tremors which is normal for him given his Parkinson's disease. He is currently ambulatory with walker. No significant changes in ambulation status. Constitutional: Negative for chills and fever. HENT: Negative for congestion, sinus pressure and sinus pain. Eyes: Negative for pain, redness and visual disturbance. Respiratory: Negative for cough and shortness of breath. Cardiovascular: Negative for chest pain, palpitations and leg swelling. Gastrointestinal: Negative for abdominal pain, nausea and vomiting. Genitourinary: Negative for dysuria and hematuria. Musculoskeletal: Negative for neck pain and neck stiffness. 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 General: Alert and oriented ?3 in no acute distress. Hemodynamically stable Head: Atraumatic with no cephalohematoma. ENT: PERRL, 2-3 mm bilaterally. EOMI. C-spine: No midline bony tenderness step-offs or deformities or crepitance. CV: RRR, no murmurs. Chest wall is nontender. Pulm: Lungs clear to auscultation bilaterally. No wheezing, rhonchi, rales. Abdomen: soft, nondistended, and nontender. Extremities: No significant lower extremity edema. Neuro: Alert. Oriented x 3. Subtle left-sided facial droop. Does have some decrease sensation to light touch in his left lower extremity compared to right. 5 out of 5 strength in his bilateral upper and lower extremities. MDM 84-year-old male who presents to the emergency department for evaluation of subdural fluid collections that were noted on outpatient MRI imaging. He has a past medical history significant for Parkinson's disease. He also has a history of TIA, CAD, CKD. He is on aspirin. On exam, patient is hemodynamically stable and in no acute distress. Subtle left-sided facial droop. Does have some decrease sensation to light touch in his left lower extremity compared to right. Rest of my physical exam is documented above. Conc (more content not included)... Normal [facility] MR Brain WO contraston 10-25 IMPRESSION: 1. Interval development of bilateral subdural collections. 2. Differential: Subdural hematomas versus dural thickening (intracranial hypotension). 3. Stable remaining senescent with changes without acute abdominal normality. URGENT RESULTS Acuity: Urgent Communication: Communicated with Dr. Arsh MIRANDA MD, on 10/25/2024 2:35 PM via verbal communication. --END OF FINDING-- Kaiawhina Kohanga Reo: DAVID Transcribe Date/Time: Oct 25 2024 2:32P Dictated by : LATASHA IRWIN MD This examination was interpreted and the report reviewed and electronically signed by: LATASHA IRWIN MD on Oct 25 2024 2:42PM [facility] DIVISION OF RADIOLOGY * * *Final Report* * * DATE OF EXAM: Oct 25 2024 12:20PM [facility] 0294 - MRI BRAIN WO IVCON / PROCEDURE REASON: multiple diagnoses * * * * Physician Interpretation * * * * COMPARISONS: 02/16/2023. HISTORY: Parkinson's disease. TECHNIQUE: MRI brain without contrast. MQ: [id number]. RESULT: MRI BRAIN: Acute abnormality: Subdural collections. Subdural collections are identified along the entire bilateral convexities wrapping around into the tentorium as well as along the posterior fossa wrapping around the cerebellar region which is effacing the CSF spaces but not causing impingement or compression on the brain or any midline shift. This is slightly compress the ventricular system since prior examination. However, there is no midline shift. Baseline senescent changes remain stable. Maximum thickness of the collections is within the mid to anterior bifrontal lobes at 5 mm. Most likely these represent interval development of blood byproducts. Postcontrast imaging would be of value to evaluate for enhancement and this may potentially represent intracranial hypotension as there has been interval mild distended of the cerebellum and with mild decrease within the suprasellar space. No restricted diffusion concerning for acute ischemia. No susceptibility concerning for acute hemorrhage. Stable sulci, gyri, ventricles, CSF spaces, brain, bones & skull base with senescent volume loss, microvascular ischemia, accentuation of CSF spaces and ventricular dilation without any interval change or acute intracranial abnormality. No mass effect noted. DIVISION OF RADIOLOGY Provider, [facility] - 10/25/2024 * * *Final Report* * * DATE OF EXAM: Oct 25 2024 12:20PM [facility] 0294 - MRI BRAIN WO IVCON / PROCEDURE REASON: multiple diagnoses * * * * Physician Interpretation * * * * COMPARISONS: 02/16/2023. HISTORY: Parkinson's disease. TECHNIQUE: MRI brain without contrast. MQ: [id number]. RESULT: MRI BRAIN: Acute abnormality: Subdural collections. Subdural collections are identified along the entire bilateral convexities wrapping around into the tentorium as well as along the posterior fossa wrapping around the cerebellar region which is effacing the CSF spaces but not causing impingement or compression on the brain or any midline shift. This is slightly compress the ventricular system since prior examination. However, there is no midline shift. Baseline senescent changes remain stable. Maximum thickness of the collections is within the mid to anterior bifrontal lobes at 5 mm. Most likely these represent interval development of blood byproducts. Postcontrast imaging would be of value to evaluate for enhancement and this may potentially represent intracranial hypotension as there has been interval mild distended of the cerebellum and with mild decrease within the suprasellar space. No restricted diffusion concerning for acute ischemia. No susceptibility concerning for acute hemorrhage. Stable sulci, gyri, ventricles, CSF spaces, brain, bones & skull base with senescent volume loss, microvascular ischemia, accentuation of CSF spaces and ventricular dilation without any interval change or acute intracranial abnormality. No mass effect noted. IMPRESSION IMPRESSION: 1. Interval development of bilateral subdural collections. 2. Differential: Subdural hematomas versus dural thickening (intracranial hypotension). 3. Stable remaining senescent with changes without acute abdominal normality. URGENT RESULTS Acuity: Urgent Communication: Communicated with Dr. Arsh MIRANDA MD, on 10/25/2024 2:35 PM via verbal communication. --END OF FINDING-- Kaiawhina Kohanga Reo: DAVID Transcribe Date/Time: Oct 25 2024 2:32P Dictated by : LATASHA IRWIN MD This examination was interpreted and the report reviewed and electronically signed by: LATASHA IRWIN MD on Oct 25 2024 2:42PM EST [facility] Radiology Study observation (narrative) Nasir pacheco [facility] MR Brain WO contrastOrdered By: [facility] Provider on 10-25-2024 [facility] MRI BRAIN WO IVCONon 025 MRI BRAIN WO IVCON [facility] PT panel Coag (PPP)on 2024 INR Coag (PPP) [Relative time] 1.1 {INR} Normal 0.9-1.3 [facility] Comment on above: Order Comment: Speci men Type: BLOOD SPECIMEN Ordering Facility: [facility] Address: [address] [place], [place] [id number] Result Comment: Abby min K Antagonist (VKA) Therapeutic Range: INR 2 to 3 (Target INR of 2.5) Note: For patients treated with VKA drugs, such as warfarin, the [place] [employer] 2012 Guideline recommends a therapeutic INR range of 2 to 3 (target INR of 2.5). This recommendation includes high-risk patients with antiphospholipid syndrome with previous arterial or venous thromboembolism, current-generation mechanical or bioprosthetic aortic heart valve replacement. Note: Patients with mechanical aortic valve replacement and additional risk factors for thromboembolic events (atrial fibrillation, previous thromboembolism, LV dysfunction, hypercoagulable conditions) or an older generation mechanical AVR (i.e., ball in-Cage) or any mechanical MVR should have a INR therapeutic range of 2.5 to 3.5 (target INR of 3). Suzi GH, et al. Chest 2012, 141:7S-47S Gunner RA, et al. [facility] 2017, 70: 252-289 Performed By: #### 3 4528-0, 26927-8 #### [facility] CLIA [id number] [address] STATES OF [facility] PT Coag (PPP) [Time] 11.5 s Normal 9.7-13.0 [facility] Comment on above: Order Comment: Speci men Type: BLOOD SPECIMEN Ordering Facility: [facility] Address: [address] [place] [address] Performed By: #### 3 4528-0, 14927-9 #### [facility] CLIA [id number] [address] aPTT PPPon 10-25-2024 aPTT Coag (PPP) [Time] 26.9 s Normal 23.0-32.4 [facility] Comment on above: Order Comment: Speci men Type: BLOOD SPECIMEN Ordering Facility: [facility] Address: [address] [place] [address] Performed By: #### 3 4528-0, 09459-9 #### [facility] CLIA [id number] [address] [place] CNOVon 10-20-2024 CNOV Normal [facility] CBC W Auto Differential pane l (Bld)on 10-04-2024 Basophils (Bld) [#/Vol] 0.04 10*3/uL Normal <0.11 [facility] Comment on above: Order Comment: Speci men Type: BLOOD SPECIMENOrdering Facility: [facility] Address: [address] [place] [address] Performed By: #### 5 7021-8 ####[facility] [id number] [place] [address] [place] Basophils/100 WBC (Bld) 0.5 % Normal C [facility] Comment on above: Order Comment: Speci men Type: BLOOD SPECIMENOrdering Facility: [facility] Address: [address] [place] [address] Performed By: #### 5 7021-8 ####[facility] [id number] [place] [address] [place] Differential cell count method Nom (Bld) Auto Normal [facility] Comment on above: Order Comment: Speci men Type: BLOOD SPECIMENOrdering Facility: [facility] Address: [address] [place] [address] Performed By: #### 5 7021-8 ####[facility] [id number] [place] [address] [place] Eosinophils (Bld) [#/Vol] 0.40 10*3/uL Normal <0.46 [facility] Comment on above: Order Comment: Speci men Type: BLOOD SPECIMENOrdering Facility: [facility] Address: [address] [place] [address] Performed By: #### 5 7021-8 ####[facility] [id number] [place] [address] [place] Eosinophils/100 WBC (Bld) 4.9 % Normal [facility] Comment on above: Order Comment: Speci men Type: BLOOD SPECIMENOrdering Facility: [facility] Address: [address] [place] [address] Performed By: #### 5 7021-8 ####[facility] [id number] [place] [address] [place] Erythrocyte distribution width (RBC) [Ratio] 14.6 % Normal 11.5-15.0 [facility] Comment on above: Order Comment: Speci men Type: BLOOD SPECIMENOrdering Facility: [facility] Address: [address] [place] [address] Performed By: #### 5 7021-8 ####[facility] [id number] [place] [address] [place] Hematocrit (Bld) [Volume fraction] 32.7 % Low 39.0-51.0 [facility] Comment on above: Order Comment: Speci men Type: BLOOD SPECIMENOrdering Facility: [facility] Address: [address] [place] [address] Performed By: #### 5 7021-8 ####[facility] [id number] [place] [address] [place] Hemoglobin (Bld) [Mass/Vol] 10.6 g/dL Low 13.0-17.0 [facility] Comment on above: Order Comment: Speci men Type: BLOOD SPECIMENOrdering Facility: [facility] Address: [address] [place] [address] Performed By: #### 5 7021-8 ####[facility] [id number] [place] [address] [place] Immature granulocytes (Bld) [#/Vol] 0.06 10*3/uL Normal <0.10 [facility] Comment on above: Order Comment: Speci men Type: BLOOD SPECIMENOrdering Facility: [facility] Address: [address] [place] [address] Performed By: #### 5 7021-8 ####[facility] [id number] [place] [address] [place] Immature granulocytes/100 WBC (Bld) 0.7 % Normal [facility] Comment on above: Order Comment: Speci men Type: BLOOD SPECIMENOrdering Facility: [facility] Address: [address] [place] [address] Performed By: #### 5 7021-8 ####[facility] [id number] [place] [address] [place] Lymphocytes (Bld) [#/Vol] 1.15 10*3/uL Normal 1.00-4.00 [facility] Comment on above: Order Comment: Speci men Type: BLOOD SPECIMENOrdering Facility: [facility] Address: [address] [place] [address] Performed By: #### 5 7021-8 ####[facility] [id number] [place] [address] [place] Lymphocytes/100 WBC (Bld) 14.1 % Normal [facility] Comment on above: Order Comment: Speci men Type: BLOOD SPECIMENOrdering Facility: [facility] Address: [address] [place] [address] Performed By: #### 5 7021-8 ####[facility] [id number] [address] [place] MCH (RBC) [Entitic mass] 28.3 pg Normal 26.0-34.0 [facility] Comment on above: Order Comment: Speci men Type: BLOOD SPECIMENOrdering Facility: [facility] Address: [address] [place] [address] Performed By: #### 5 7021-8 ####[facility] [id number] [place] [address] [place] MCHC (RBC) [Mass/Vol] 32.4 g/dL Normal 30.5-36.0 [facility] Comment on above: Order Comment: Speci men Type: BLOOD SPECIMENOrdering Facility: [facility] Address: [address] [place] [address] Performed By: #### 5 7021-8 ####[facility] [id number] [place] [address] [place] MCV (RBC) [Entitic vol] 87.4 fL Normal 80.0-100.0 C [facility] Comment on above: Order Comment: Speci men Type: BLOOD SPECIMENOrdering Facility: [facility] Address: [address] [place] [address] Performed By: #### 5 7021-8 ####[facility] [id number] [place] [address] [place] Monocytes (Bld) [#/Vol] 0.62 10*3/uL Normal <0.87 [facility] Comment on above: Order Comment: Speci men Type: BLOOD SPECIMENOrdering Facility: [facility] Address: [address] [place] [address] Performed By: #### 5 7021-8 ####[facility] [id number] [place] [address] [place] Monocytes/100 WBC (Bld) 7.6 % Normal C [facility] Comment on above: Order Comment: Speci men Type: BLOOD SPECIMENOrdering Facility: [facility] Address: [address] [place] [address] Performed By: #### 5 7021-8 ####[facility] [id number] [place] [address] [place] [place] Neutrophils (Bld) [#/Vol] 5.86 10*3/uL Normal 1.45-7.50 [facility] Comment on above: Order Comment: Speci men Type: BLOOD SPECIMENOrdering Facility: [facility] Address: [address] [place] [address] Performed By: #### 5 7021-8 ####[facility] [id number] [place] [address] [place] Neutrophils/100 WBC (Bld) 72.2 % Normal [facility] Comment on above: Order Comment: Speci men Type: BLOOD SPECIMENOrdering Facility: [facility] Address: [address] [place] [address] Performed By: #### 5 7021-8 ####[facility] ELLENWNCLIA [id number] [place] [address] [place] Nucleated RBC (Bld) [#/Vol] 10*3/uL Normal <0.01 [facility] Comment on above: Order Comment: Speci men Type: BLOOD SPECIMENOrdering Facility: [facility] Address: [address] [place] [address] Performed By: #### 5 7021-8 ####[facility]ITALNCLIA [id number] [place] [address] [place] Nucleated RBC/100 WBC (Bld) [Ratio] 0.0 /100 WBC Normal [facility] Comment on above: Order Comment: Speci men Type: BLOOD SPECIMENOrdering Facility: [facility] Address: [address] [place] [address] Performed By: #### 5 7021-8 ####[facility]ITALNCLIA [id number] [place] [address] [place] Platelet mean volume (Bld) [Entitic vol] 9.8 fL Normal 9.0-12.7 [facility] Comment on above: Order Comment: Speci men Type: BLOOD SPECIMENOrdering Facility: [facility] Address: [address] [place] [address] Performed By: #### 5 7021-8 ####[facility]ITALNCLIA [id number] [place] [address] [place] Platelets (Bld) [#/Vol] 162 10*3/uL Normal 150-400 [facility] Comment on above: Order Comment: Speci men Type: BLOOD SPECIMENOrdering Facility: [facility] Address: [address] [place] [address] Performed By: #### 5 7021-8 ####[facility] [id number] [place] [address] [place] RBC (Bld) [#/Vol] 3.74 10*6/uL Low 4.20-6.00 [facility] Comment on above: Order Comment: Speci men Type: BLOOD SPECIMENOrdering Facility: [facility] Address: [address] [place] [address] Performed By: #### 5 7021-8 ####[facility] [id number] [place] [address] [place] WBC (Bld) [#/Vol] 8.13 10*3/uL Normal 3.70-11.00 [facility] Comment on above: Order Comment: Speci men Type: BLOOD SPECIMENOrdering Facility: [facility] Address: [address] [place] [address] Performed By: #### 5 7021-8 ####[facility] [id number] [place] [address] [place] CNOVSPon 10-04-2024 CNOVSP Normal [facility] CNPNon 10-04-2024 CNPN Normal [facility] Ferritin SerPl-mCncon 2024 Ferritin [Mass/Vol] 421.0 ng/mL Normal 30.3-565.7 [facility] Comment on above: Order Comment: Speci men Type: BLOOD SPECIMENOrdering Facility: [facility] Address: [address] [place] [address] Performed By: #### 5 0190-8, 2276-4 ####[facility] LABCLIA [id number] [place] [address] [place] Iron and Iron binding capaci ty panelon 10-04-2024 Iron [Mass/Vol] 49 ug/dL Normal 41-186 [facility] Comment on above: Order Comment: Speci men Type: BLOOD SPECIMENOrdering Facility: [facility] Address: [address] [place], [place] [address] Performed By: #### 5 0190-8, 6-4 ####[facility] LABIA [id number] [address] [address] [place] Iron binding capacity [Mass/Vol] 212 ug/dL Low 232-386 [facility] Comment on above: Order Comment: Speci men Type: BLOOD SPECIMENOrdering Facility: [facility] Address: [address] [place], [place] [address] Performed By: #### 5 0190-8, 6-4 ####[facility] LABIA [id number] [place] [address] [place] Iron/TIBC [Molar ratio] 23.1 % Normal 15.0-57.0 [facility] Comment on above: Order Comment: Speci men Type: BLOOD SPECIMENOrdering Facility: [facility] Address: [address] [place] [address] Performed By: #### 5 0190-8, 6-4 ####[facility] [id number] [place] [address] [place] CNOVon 09-25-2024 CNOV Normal [facility] Basic metabolic 2000 panelon 09-18-2024 Anion gap [Moles/Vol] 12 mmol/L Normal 8-15 [facility] Comment on above: Order Comment: Speci men Type: BLOOD SPECIMENOrdering Facility: [facility] Address: [address] [place], [place] [address] Performed By: #### 2 4321-2 ####[facility] LABIA [id number] [place] [address] [place] Calcium [Mass/Vol] 9.1 mg/dL Normal 8.5-10.2 [facility] Comment on above: Order Comment: Speci men Type: BLOOD SPECIMENOrdering Facility: [facility] Address: [address] [place] [address] Performed By: #### 2 4321-2 ####[facility] LABCLIA [id number] [place] [address] [place] Chloride [Moles/Vol] 101 mmol/L Normal 98-107 [facility] Comment on above: Order Comment: Speci men Type: BLOOD SPECIMENOrdering Facility: [facility] Address: [address] [place] [address] Performed By: #### 2 4321-2 ####[facility] LABIA [id number] [place] [address] [place] CO2 [Moles/Vol] 24 mmol/L Normal 22-30 [facility] Comment on above: Order Comment: Speci men Type: BLOOD SPECIMENOrdering Facility: [facility] Address: [address] [place] [address] Performed By: #### 2 4321-2 ####[facility] LABIA [id number] [place] [address] [place] Creatinine [Mass/Vol] 1.71 mg/dL High 0.73-1.22 [facility] Comment on above: Order Comment: Speci men Type: BLOOD SPECIMENOrdering Facility: [facility] Address: [address] [place] [address] Performed By: #### 2 4321-2 ####[facility] LABIA [id number] [address] [facility] Creatinine and Glomerular filtration rate.predicted panel (S/P/Bld) 39 mL/min/1.73m??? Low >=60 [facility] Comment on above: Order Comment: Speci men Type: BLOOD SPECIMENOrdering Facility: [facility] Address: [address] [place] [address] Result Comment: Lady mated Glomerular Filtration Rate (eGFR) is calculated using the 2020 CKD-EPI creatinine equation. This equation utilizes serum creatinine, sex, and age as parameters. The creatinine assay has traceable calibration to isotope dilution-mass spectrometry. Refer to KDIGO guidelines for clinical interpretation. In patients with unstable renal function, e.g. those with acute kidney injury, the eGFR may not accurately reflect actual GFR. Performed By: #### 2 4321-2 ####[facility] LABIA [id number] [address] [address] [place] Glucose [Mass/Vol] 171 mg/dL High 74-99 [facility] Comment on above: Order Comment: Speci men Type: BLOOD SPECIMENOrdering Facility: [facility] Address: [address] [place] [address] Result Comment: The [place] Diabetes Association (ADA) provides guidance for cutoff values for fasting glucose and random glucose. The ADA defines fasting as no caloric intake for at least 8 hours. Fasting plasma glucose results between 100 to 125 mg/dL indicate increased risk for diabetes (prediabetes).Fasting plasma glucose results greater than or equal to 126 mg/dL meet the criteria for diagnosis of diabetes. In the absence of unequivocal hyperglycemia, results should be confirmed by repeat testing. In a patient with classic symptoms of hyperglycemia or hyperglycemic crisis, random plasma glucose results greater than or equal to 200 mg/dL meet the criteria for diagnosis of diabetes.Reference: Standards of Medical Care in Diabetes 2016, [place] Diabetes Association. Diabetes Care. 2016.39(Suppl 1). Performed By: #### 2 4321-2 ####[facility] LABIA [id number] [address] [address] [place] Potassium [Moles/Vol] 4.4 mmol/L Normal 3.7-5.1 [facility] Comment on above: Order Comment: Agust[place] men Type: BLOOD SPECIMENOrdering Facility: [facility] Address: [address] [place] [id number] Performed By: #### 2 4321-2 ####[facility] LABIA [id number] [address] [address] [place] Sodium [Moles/Vol] 137 mmol/L Normal 136-144 [facility] Comment on above: Order Comment: Speci men Type: BLOOD SPECIMENOrdering Facility: [facility] Address: [address] [place] [address] Performed By: #### 2 4321-2 ####[facility] LABCLIA [id number] [place] [address] [place] Urea nitrogen [Mass/Vol] 25 mg/dL High 9-24 [facility] Comment on above: Order Comment: Speci men Type: BLOOD SPECIMENOrdering Facility: [facility] Address: [address] [place] [address] Performed By: #### 2 4321-2 ####[facility] LABIA [id number] [place] [address] [place] [facility] [place] HbA1c (Bld)on 09-18-2024 Average glucose Estimated from glycated hemoglobin (Bld) [Mass/Vol] 169 mg/dL Normal [facility] Comment on above: Order Comment: Agustinai men Type: BLOOD SPECIMENOrdering Facility: [facility] Address: [address] [place] [address] Result Comment: eAG: (Estimated average glucose) is a calculated value from HgbA1c and is contact center representative of the average blood glucose level in the last 2-3 month period. Performed By: #### 5 5454-3 ####[facility] LABCLIA [id number] [address] [place] HbA1c (Bld) [Mass fraction] 7.5 % High 4.3-5.6 [facility] Comment on above: Order Comment: Agustinai men Type: BLOOD SPECIMENOrdering Facility: [facility] Address: [address] [place] [address] Result Comment: [place] Diabetes Association guidelines indicate that patients with HgbA1c in the range 5.7-6.4% are at increased risk for development of diabetes, and intervention by lifestyle modification may be beneficial. HgbA1c greater or equal to 6.5% is considered diagnostic of diabetes. Performed By: #### 5 5454-3 ####[facility] LABCLIA [id number] [place] [id number] [place] CBC W Auto Differential pane l (Bld)on 09-04-2024 Basophils (Bld) [#/Vol] 0.03 10*3/uL Normal <0.11 [facility] Comment on above: Order Comment: Speci men Type: BLOOD SPECIMENOrdering Facility: [facility] Address: [address] [place] [address] Performed By: #### 5 7021-8 ####[facility]ITALA [id number] [place] [address] [place] Basophils/100 WBC (Bld) 0.4 % Normal [facility] Comment on above: Order Comment: Speci men Type: BLOOD SPECIMENOrdering Facility: [facility] Address: [address] [place] [address] Performed By: #### 5 7021-8 ####[facility] [id number] [address] [place] Differential cell count method Nom (Bld) Auto Normal [facility] Comment on above: Order Comment: Speci men Type: BLOOD SPECIMENOrdering Facility: [facility] Address: [address] [place] [address] Performed By: #### 5 7021-8 ####[facility] HOS[facility]ITALA [id number] [place] [address] [place] Eosinophils (Bld) [#/Vol] 0.32 10*3/uL Normal <0.46 [facility] Comment on above: Order Comment: Speci men Type: BLOOD SPECIMENOrdering Facility: [facility] Address: [address] [place] [address] Performed By: #### 5 7021-8 ####[facility] CENTERLIA [id number] [place] [address] [place] Eosinophils/100 WBC (Bld) 4.2 % Normal [facility] Comment on above: Order Comment: Speci men Type: BLOOD SPECIMENOrdering Facility: [facility] Address: [address] [place] [address] Performed By: #### 5 7021-8 ####[facility]ER[facility] [id number] [place] [address] [place] Erythrocyte distribution width (RBC) [Ratio] 14.4 % Normal 11.5-15.0 [facility] Comment on above: Order Comment: Speci men Type: BLOOD SPECIMENOrdering Facility: [facility] Address: [address] [place] [address] Performed By: #### 5 7021-8 ####[facility] ELLENURBANAJAMAL [id number] [place] [address] [place] Hematocrit (Bld) [Volume fraction] 29.9 % Low 39.0-51.0 [facility] Comment on above: Order Comment: Speci men Type: BLOOD SPECIMENOrdering Facility: [facility] Address: [address] [place] [address] Performed By: #### 5 7021-8 ####[facility] ELLENURBANANCLIA [id number] [place] [address] [place] Hemoglobin (Bld) [Mass/Vol] 9.8 g/dL Low 13.0-17.0 [facility] Comment on above: Order Comment: Speci men Type: BLOOD SPECIMENOrdering Facility: [facility] Address: [address] [place] [address] Performed By: #### 5 7021-8 ####[facility] HOS[facility]ITALNCLIA [id number] [place] [address] [place] Immature granulocytes (Bld) [#/Vol] 0.03 10*3/uL Normal <0.10 [facility] Comment on above: Order Comment: Speci men Type: BLOOD SPECIMENOrdering Facility: [facility] Address: [address] [place] [address] Performed By: #### 5 7021-8 ####[facility] HOSPITALWNCLIA [id number] [place] [address] [place] Immature granulocytes/100 WBC (Bld) 0.4 % Normal [facility] Comment on above: Order Comment: Speci men Type: BLOOD SPECIMENOrdering Facility: [facility] Address: [address] [place] [address] Performed By: #### 5 7021-8 ####[facility] HOSPITALKAIVTALIA [id number] [place] [address] [place] Lymphocytes (Bld) [#/Vol] 0.96 10*3/uL Low 1.00-4.00 [facility] Comment on above: Order Comment: Speci men Type: BLOOD SPECIMENOrdering Facility: [facility] Address: [address] [place] [address] Performed By: #### 5 7021-8 ####[facility] CENTERLIA [id number] [place] [address] [place] Lymphocytes/100 WBC (Bld) 12.7 % Normal [facility] Comment on above: Order Comment: Speci men Type: BLOOD SPECIMENOrdering Facility: [facility] Address: [address] [place] [address] Performed By: #### 5 7021-8 ####[facility] HOSPITALKAVITALIA [id number] [place] [address] [place] MCH (RBC) [Entitic mass] 28.7 pg Normal 26.0-34.0 [facility] Comment on above: Order Comment: Speci men Type: BLOOD SPECIMENOrdering Facility: [facility] Address: [address] [place] [address] Performed By: #### 5 7021-8 ####[facility] HOS[facility]ITALNCLIA [id number] [place] [address] [place] MCHC (RBC) [Mass/Vol] 32.8 g/dL Normal 30.5-36.0 [facility] Comment on above: Order Comment: Speci men Type: BLOOD SPECIMENOrdering Facility: [facility] Address: [address] [place] [address] Performed By: #### 5 7021-8 ####[facility] HOSPITALKAVITALIA [id number] [place] [address] [place] MCV (RBC) [Entitic vol] 87.4 fL Normal 80.0-100.0 [facility] Comment on above: Order Comment: Speci men Type: BLOOD SPECIMENOrdering Facility: [facility] Address: [address] [place] [address] Performed By: #### 5 7021-8 ####[facility] HOSPITALKAVITAA [id number] [place] [address] [place] Monocytes (Bld) [#/Vol] 0.48 10*3/uL Normal <0.87 [facility] Comment on above: Order Comment: Speci men Type: BLOOD SPECIMENOrdering Facility: [facility] Address: [address] [place] [address] Performed By: #### 5 7021-8 ####[facility] CENTERLIA [id number] [place] [address] [place] Monocytes/100 WBC (Bld) 6.4 % Normal [facility] Comment on above: Order Comment: Speci men Type: BLOOD SPECIMENOrdering Facility: [facility] Address: [address] [place] [address] Performed By: #### 5 7021-8 ####[facility] HOSPITALNCLIA [id number] [place] [address] [place] Neutrophils (Bld) [#/Vol] 5.72 10*3/uL Normal 1.45-7.50 [facility] Comment on above: Order Comment: Speci men Type: BLOOD SPECIMENOrdering Facility: [facility] Address: [address] [place] [address] Performed By: #### 5 7021-8 ####[facility] ELLENREYNA [id number] [place] [address] [place] Neutrophils/100 WBC (Bld) 75.9 % Normal [facility] Comment on above: Order Comment: Speci men Type: BLOOD SPECIMENOrdering Facility: [facility] Address: [address] [place] [address] Performed By: #### 5 7021-8 ####[facility]ITALNCS[facility] [id number] [place] [address] [place] Nucleated RBC (Bld) [#/Vol] 10*3/uL Normal <0.01 [facility] Comment on above: Order Comment: Speci men Type: BLOOD SPECIMENOrdering Facility: [facility] Address: [address] [place] [address] Performed By: #### 5 7021-8 ####[facility] HOSPITALNCLI [id number] [place] [address] [place] Nucleated RBC/100 WBC (Bld) [Ratio] 0.0 /100 WBC Normal [facility] Comment on above: Order Comment: Speci men Type: BLOOD SPECIMENOrdering Facility: [facility] Address: [address] [place] [address] Performed By: #### 5 7021-8 ####[facility] [id number] [place] [address] [place] Platelet mean volume (Bld) [Entitic vol] 9.6 fL Normal 9.0-12.7 [facility] Comment on above: Order Comment: Speci men Type: BLOOD SPECIMENOrdering Facility: [facility] Address: [address] [place] [address] Performed By: #### 5 7021-8 ####[facility] HOSPITALNCLIA [id number] [place] [address] [place] Platelets (Bld) [#/Vol] 157 10*3/uL Normal 150-400 [facility] Comment on above: Order Comment: Speci men Type: BLOOD SPECIMENOrdering Facility: [facility] Address: [address] [place], [place] [address] Performed By: #### 5 7021-8 ####[facility] HOSPITALNCLIA [id number] [place] [address] [place] RBC (Bld) [#/Vol] 3.42 10*6/uL Low 4.20-6.00 [facility] Comment on above: Order Comment: Speci men Type: BLOOD SPECIMENOrdering Facility: [facility] Address: [address] [place] [address] Performed By: #### 5 7021-8 ####[facility] HOSPITALA [id number] [place] [address] [place] WBC (Bld) [#/Vol] 7.54 10*3/uL Normal 3.70-11.00 [facility] Comment on above: Order Comment: Speci men Type: BLOOD SPECIMENOrdering Facility: [facility] Address: [address] [place], [place] [address] Performed By: #### 5 7021-8 ####[facility] HOSPITALNCLIA [id number] [place] [address] [place] 12 Lead EKGon 09-03-2024 12 Lead EKG [facility] [address] [place] [address] 12 Lead EKG 09/03/24 1048 MR#: [id number] Acct: [id number] Name: AXEL SERRANO Rep #: [id number] : 1940 84 From: Evangelina Bhatia MD Attending Dr: Status: DEP ER Ordering Dr: Didier Encarnacion DO Date: 09/03/24 Location: ED Sex: M C Admitted: Test Reason : POST CP Blood Pressure : */* mmHG Vent. Rate : 58 BPM Atrial Rate : 58 BPM P-R Int : 198 ms QRS Dur : 156 ms QT Int : 498 ms P-R-T Axes : 55 -17 139 degrees QTcB Int : 488 ms Sinus bradycardia with Premature ventricular complexes or Fusion complexes Left bundle branch block Abnormal ECG Confirmed by SABI VILLANUEVA, SERGIO ([id number]), commercial production editor CHRISTEN BEAR ([id number]) on 09/06/2024 11:53:37 AM Referred By: TL/CG Confirmed By: SERGIO BHATIA MD 09/06/24 1153 Date Evangelina Bhatia MD CC: Dr. Didier Encarnacion DO; Dr. Arsh Polk MD Signed Normal [facility] Absolute lymphocyte countOrd ered By: Didier Encarnacion on 09-03-2024 Lymphocytes Auto (Unsp spec) [#/Vol] 1.22 10*3/uL 0.83-4.51 [facility] Absolute neutrophil countOrd ered By: Didier Encarnacion on 09-03-2024 Neutrophils (Bld) [#/Vol] 7.2 10*3/uL 2.0-7.7 [facility] Anion gap in Serum or Plasma Ordered By: Didier Encarnacion on 09-03-2024 Anion gap [Moles/Vol] 11 mmol/L 5-15 [facility] Automated lymphocyte count a s percentage of total leukocytesOrdered By: Didier Encarnacion on 09-03-2024 Lymphocytes/100 WBC Auto (Unsp spec) 13.0 % Low 19-41 [facility] BUN/creatinine ratioOrdered By: Didier Encarnacion on 09-03-2024 Urea nitrogen/Creatinine [Mass ratio] 14.5 mg/mg 10-20 [facility] Basic Metabolic Profile (BMP )on 09-03-2024 BUN/CRE 14.5 RATIO Normal 10-20 [facility] Comment on above: Performed By: #### L 501.080 #### [facility] [address] [place], [address] Calcium [Mass/Vol] 8.9 mg/dL Normal 7.6-11.0 [facility] Comment on above: Performed By: #### L 501.080 #### [facility] [address] [place], [address] Chloride [Moles/Vol] 103 mmol/L Normal 98-108 [facility] Comment on above: Performed By: #### L 501.080 #### [facility] [address] [place], [address] CO2 [Moles/Vol] 25.8 mmol/L Normal 21.0-32.0 [facility] Comment on above: Performed By: #### L 501.080 #### [facility] [address] [place], [address] Creatinine [Mass/Vol] 1.86 mg/dL High 0.70-1.20 [facility] Comment on above: Performed By: #### L 501.080 #### [facility] [address] [place], [address] ECRCL 41.21 ml/min Low 50-250 [facility] Comment on above: Performed By: #### L 501.080 #### [facility] [address] [place], [address] GAP 11 Normal 5-15 [facility] Comment on above: Performed By: #### L 501.080 #### [facility] [address] [place], [address] GFR/1.73 sq M.predicted among non-blacks MDRD (S/P/Bld) [Vol rate/Area] 35 mL/min/{1.73_m2} Low >60 [facility] Comment on above: Result Comment: mL/m in/1.73m2 CKD-EPI Creatinine Equation (2020) Performed By: #### L 501.080 #### [facility] [address] [place], [address] Glucose [Mass/Vol] 186 mg/dL High 70-99 [facility] Comment on above: Performed By: #### L 501.080 #### [facility] [address] [place], [address] Potassium [Moles/Vol] 4.8 mmol/L Normal 3.3-5.1 [facility] Comment on above: Result Comment: Hemo lysis present, Results??could be affected. ?? Performed By: #### L 501.080 #### [facility] [address] [place], [address] Sodium [Moles/Vol] 140 mmol/L Normal 133-145 [facility] Comment on above: Performed By: #### L 501.080 #### [facility] [address] [place], [address] Urea nitrogen [Mass/Vol] 27 mg/dL High 4-19 [facility] Comment on above: Performed By: #### L 501.080 #### [facility] [address] [place], [address] Basophil percentageOrdered B y: Didier Alysha on 09-03-2024 Basophils/100 WBC (Bld) 0.4 % 0-1 [facility] CBC W/Diff, Automatedon -2 Absolute Lymph 1.22 X10 3/uL Normal 0.83-4.51 [facility] Comment on above: Performed By: #### L 501.080 #### [facility] [address] [place], [address] Absolute Neut 7.2 X10 3/uL Normal 2.0-7.7 [facility] Comment on above: Performed By: #### L 501.080 #### [facility] [address] [place], [address] Basophils/100 WBC (Bld) 0.4 % Normal 0-1 [facility] Comment on above: Performed By: #### L 501.080 #### [facility] [address] [place], [address] Eosinophils/100 WBC (Bld) 3.1 % Normal 0-5 [facility] Comment on above: Performed By: #### L 501.080 #### [facility] [address] [place], [address] Erythrocyte distribution width (RBC) [Ratio] 14.3 % Normal 11.6-14.6 [facility] Comment on above: Performed By: #### L 501.080 #### [facility] [address] [place], [address] Hematocrit (Bld) [Volume fraction] 31.7 % Low 40-54 [facility] Comment on above: Performed By: #### L 501.080 #### [facility] [address] [place], [address] Hemoglobin (Bld) [Mass/Vol] 10.4 g/dL Low 13.0-16.5 [facility] Comment on above: Performed By: #### L 501.080 #### [facility] [address] [place], [address] IG% 0.400 Normal 0.0-0.9 [facility] Comment on above: Result Comment: IG% - Immature Granulocytes (promyelocytes, myelocytes and metamyelocytes) > 1% indicates that a LEFT SHIFT is Present. Performed By: #### L 501.080 #### [facility] [address] [place], [address] Lymphocytes/100 WBC (Bld) 13.0 % Low 19-41 [facility] Comment on above: Performed By: #### L 501.080 #### [facility] [address] [place], [address] MCH (RBC) [Entitic mass] 29.1 pg Normal 27.0-32.0 [facility] Comment on above: Performed By: #### L 501.080 #### [facility] [address] [place], [address] MCHC (RBC) [Mass/Vol] 32.8 g/dL Normal 32-36 [facility] Comment on above: Performed By: #### L 501.080 #### [facility] [address] [place], [address] MCV (RBC) [Entitic vol] 88.5 fL Normal 80-94 [facility] Comment on above: Performed By: #### L 501.080 #### [facility] [address] [place], [address] Monocytes/100 WBC (Bld) 6.8 % Normal 0-10 [facility] Comment on above: Performed By: #### L 501.080 #### [facility] [address] [place], [address] Neutrophils/100 WBC (Bld) 76.3 % High 47-70 [facility] Comment on above: Performed By: #### L 501.080 #### [facility] [address] [place], [address] Nucleated RBC (Bld) [#/Vol] 0 10*3/uL Normal 0-5 [facility] Comment on above: Performed By: #### L 501.080 #### [facility] [address] [place], [address] Platelet mean volume (Bld) [Entitic vol] 11.4 fL Normal 6.2-12.0 [facility] Comment on above: Performed By: #### L 501.080 #### [facility] [address] [place], [address] Platelets (Bld) [#/Vol] 171 10*3/uL Normal 150-450 [facility] Comment on above: Performed By: #### L 501.080 #### [facility] [address] [place], [address] RBC (Bld) [#/Vol] 3.58 10*6/uL Low 4.6-6.2 [facility] Comment on above: Performed By: #### L 501.080 #### [facility] [address] [place], [address] RDW SD 45.8 fl High 35.1-43.9 [facility] Comment on above: Performed By: #### L 501.080 #### [facility] [address] [place], [address] WBC (Bld) [#/Vol] 9.4 10*3/uL Normal 4.4-11.0 [facility] Comment on above: Performed By: #### L 501.080 #### [facility] [address] [place], [address] Carbon dioxide, total [Moles /volume] in Central venous bloodOrdered By: Didier Encarnacion on 09-03-2024 CO2 [Moles/Vol] 25.8 mmol/L 21.0-32.0 [facility] Chest 1 View (Portable)on Chest 1 View (Portable) [facility] Imaging Services [address] [place] [address] Chest 1 View (Portable) MR#: [id number] Acct: [id number] Name: AXEL SERRANO Rep #: [id number] : 1940 M 84 From: Alexey sibley MD PCP: Dr. Arsh Polk MD Status: REG ER Study: Chest 1 View (Portable) Date of Exam: 09/03/24 Exam# [id number] Ordering Dr: Didier Encarnacion DO PROCEDURE: CHEST 1 VIEW (PORTABLE) 09/03/2024 REASON FOR EXAM: CHEST PAIN TECHNIQUE: Frontal view of the chest. COMPARISON: None FINDINGS: Hardware: None Heart: Heart size is moderately enlarged. Lungs: No focal consolidation. No pneumothorax. No pleural effusion. Bones: The bones are unremarkable. Other: RAD/Chest 1 View (Portable) IMPRESSION: No Acute Findings. Moderate cardiomegaly. Reading Location: [facility] CC: Dr. Didier Encarnacion DO; Dr. Arsh Polk MD [place] Reo: Signed Normal [facility] Chloride assayOrdered By: Lazaro Encarnacion on 09-03-2024 Chloride [Moles/Vol] 103 mmol/L 98-108 [facility] Emergency Department Summary on 09-03-2024 Emergency Department Summary [facility] Medical Records Department [address] [place] [id number] Emergency Department Summary 09/03/24 MR#: [id number] Acct: [id number] Name: AXEL SERRANO Rep #: [id number] : 1940 84 From: Didier Mcintyre PCP: Dr. Arsh Polk MD Status:DEP ER Location: ED HPI History of Present Illness Chief Complaint: Chest Pain Informant: patient, spouse/S.O. and friend Narrative Narrative: Presents by EMS from home sudden onset pain chest back with left arm numbness 9:30 AM sitting watching TV. States he felt a jolt of symptoms left arm numbness persisted however currently resolving. Reported OR in 2019 with cath report however no surgical intervention. He is on Eliquis for paroxysmal A-fib. History of heart failure improving leg swelling no cough no dyspnea. Followed by cardiology Dr. Herndon. Denies fever chills or sweats. 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) Chronic kidney disease (CKD) Non-ischemic cardiomyopathy History of non-ST elevation myocardial infarction (NSTEMI) (01/22/20) Chronic systolic (congestive) heart failure CHF (congestive heart failure), NYHA class III 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 Mild chronic anemia Nonrheumatic aortic (valve) stenosis Non-Hodgkin lymphoma Obesity Splenic artery aneurysm Type 2 diabetes mellitus Kidney stones HLD (hyperlipidemia) Home Medications ???Medication ???Instructions ???Recorded ???Last Taken ???Type folic acid 1 mg tablet 1 mg PO DAILY [facility] 09/02/24 History atorvastatin 40 mg tablet 40 mg PO QHS cholesterol 02/20/22 09/02/24 History sertraline 50 mg tablet 50 mg PO DAILY Depression 02/20/22 09/02/24 History mecobalamin (vitamin B12) 1,000 1,000 mcg PO DAILY health 11/16/23 09/02/24 History mcg chewable tablet [facility] metformin 500 mg tablet,extended 500 mg PO BID DM 11/16/23 09/02/24 History release 24 hr sitagliptin phosphate 50 mg tablet 50 mg PO DAILY Diabetes 11/16/23 09/02/24 History (Januvia) tamsulosin 0.4 mg capsule (Flomax) 0.8 mg PO QHS bladder 04/24/24 0 09/02/24 History apixaban 5 mg tablet (Eliquis) 2.5 mg (1/2 x 5 mg) PO BID 30 days 05/16/24 09/02/24 Rx #30 tabs metoprolol succinate 50 mg 50 mg PO BID 30 days #60 tabs 12/0109/02/24 Rx tablet,extended release 24 hr rivastigmine tartrate 1.5 mg 1.5 mg PO BIDCM 30 days #60 caps 0 05/16/24 09/02/24 Rx capsule gabapentin 300 mg capsule 300 mg PO BID 08/09/24 09/02/24 Hi story ferrous gluconate 324 mg (37.5 mg 325 mg PO DAILY health [facility] 09/03/24 09/02/24 History iron) tablet furosemide 40 mg tablet 40 mg PO DAILY water pill 09/03/24 09/02/24 History lorazepam 0.5 mg tablet 0.5 mg PO Q4H PRN aggitation Unknown History restlessness Allergy/AdvReac Type Severity Reaction Status Date / Time No Known Allergies Allergy Verified 09/03/24 10:55 Family History Mother Heart disease Father Heart disease Brother Heart disease Surgical History History of left heart catheterization (08/14/20) Hx of cataract surgery Hx of cholecystectomy Social History household members: spouse Smoking Status: Former smoker how long ago did patient quit smokin alcohol intake: never substance use type: does not use caffeine: Yes Type: coffee Number of servings: 2 ROS ROS ED Constitutional Constitutional ED: Denies chills, fever(s) or sweats ENT ENT ED: Denies sore throat Cardiovascular Cardiovascular: Reports chest pain; Denies leg edema, palpitations or racing heartbeat Respiratory/Chest Respiratory/Chest: Denies cough, dyspnea or dyspnea on exertion Gastrointestinal Gastrointestinal: Denies abdominal pain, diarrhea, nausea or vomiting Genitourinary Genitourinary ED: Denies dysuria, hematuria or urinary frequency Musculoskeletal Musculoskeletal: Denies back pain, extremity pain or neck pain Integumentary Denies rash or wounds Neurologic Neurologic: Denies headache(s), paresthesias or weakness EXAM Physical (more content not included)... Normal [facility] Eosinophil percentageOrdered By: Didier Encarnacion on 09-03-2024 Eosinophils/100 WBC (Bld) 3.1 % 0-5 [facility] Erythrocyte distribution wid th ratioOrdered By: Didier Encarnacion on 09-03-2024 Erythrocyte distribution width (RBC) [Ratio] 14.3 % 11.6-14.6 [facility] Erythrocyte distribution wid th standard deviationOrdered By: Didier Encarnacion on 09-03-2024 Erythrocyte distribution width (RBC) [Ratio] 45.8 fl High 35.1-43.9 [facility] Glomerular filtration rate ( GFR) estimation/1.73 sq m using serum, plasma, or whole bOrdered By: Didier Encarnacion on 09-03-2024 GFR/1.73 sq M.predicted among non-blacks MDRD (S/P/Bld) [Vol rate/Area] 35 mL/min/{1.73_m2} Low >60 [facility] Comment on above: mL/min/1.73m2 CKD-EP I Creatinine Equation (2020) Hematocrit Auto (Bld) [Volum e fraction]Ordered By: Didier Encarnacion on 09-03-2024 Hematocrit (Bld) [Volume fraction] 31.7 % Low 40-54 [facility] Hemoglobin measurementOrdere d By: Didier Encarnacion on 09-03-2024 Hemoglobin (Bld) [Mass/Vol] 10.4 g/dL Low 13.0-16.5 [facility] Immature granulocytes/100 WB C Auto (Bld)Ordered By: Didier Encarnacion on 09-03-2024 Immature granulocytes/100 WBC (Bld) 0.400 % 0.0-0.9 [facility] Comment on above: IG% - Immature Granu locytes (promyelocytes, myelocytes and metamyelocytes) > 1% indicates that a LEFT SHIFT is Present. L499.0042on 09-03-2024 Trop T High Sen 51 ng/L High <=22 [facility] Comment on above: Performed By: #### L 501.080 #### [facility] [address] [place], [address] L499.0043on 09-03-2024 Trop T High Sen Normal <=22 [facility] Comment on above: Result Comment: Torri pedraza via OM: Order cancelled - Patient discharged Performed By: #### M 100.2200, L400.2010 #### [facility] [address] [place], [address] L501.4021on 09-03-2024 Trop T High Sen 51 ng/L High <=22 [facility] Comment on above: Performed By: #### L 100.0100, L501.4021, L500.2500 ####[facility] [address] [place], [address] MCV (mean corpuscular volume ) determinationOrdered By: Didier Encarnacion on 09-03-2024 MCV (RBC) [Entitic vol] 88.5 fL 80-94 [facility] Mean corpuscular hemoglobin (MCH) determinationOrdered By: Didier Encarnacion on 09-03-2024 MCH (RBC) [Entitic mass] 29.1 pg 27.0-32.0 [facility] Mean corpuscular hemoglobin concentration (MCHC) determinationOrdered By: Didier Encarnacion on 09-03-2024 MCHC (RBC) [Mass/Vol] 32.8 g/dL 32-36 [facility] Mean platelet volume determi nationOrdered By: Didier Encarnacion on 09-03-2024 Platelet mean volume (Bld) [Entitic vol] 11.4 fL 6.2-12.0 [facility] Monocyte percentageOrdered B y: Didier Encarnacion on 09-03-2024 Monocytes/100 WBC (Bld) 6.8 % 0-10 [facility] Neutrophil percentageOrdered By: Didier Encarnacion on 09-03-2024 Neutrophils/100 WBC (Bld) 76.3 % High 47-70 [facility] Nucleated red blood cell per centageOrdered By: Didier Encarnacion on 09-03-2024 Nucleated RBC/100 WBC (Bld) [Ratio] 0 % 0-5 [facility] Platelet countOrdered By: Lazaro Encarnacion on 09-03-2024 Platelets (Bld) [#/Vol] 171 10*3/uL 150-450 [facility] Potassium measurement (mass/ volume)Ordered By: Didier Encarnacion on 09-03-2024 Potassium (Unsp spec) [Mass/Vol] 4.8 mmol/L 3.3-5.1 [facility] Comment on above: Hemolysis present, R esults could be affected. RBC Auto (Bld) [#/Vol]Ordere d By: Didier Encarnacion on 09-03-2024 RBC (Bld) [#/Vol] 3.58 10*6/uL Low 4.6-6.2 [facility] Serum creatinine measurement (mass/volume)Ordered By: Didier Encarnacion on 09-03-2024 Creatinine [Mass/Vol] 1.86 mg/dL High 0.70-1.20 [facility] Serum glucose measurement (m ass/volume)Ordered By: Didier Encarnacion on 09-03-2024 Glucose [Mass/Vol] 186 mg/dL High 70-99 [facility] Serum or plasma calcium pedrito urement (mass/volume)Ordered By: Didier Encarnacion on 09-03-2024 Calcium [Mass/Vol] 8.9 mg/dL 7.6-11.0 [facility] Serum or plasma urea nitroge n measurement (mass/volume)Ordered By: Didier Encarnacion on 09-03-2024 Urea nitrogen [Mass/Vol] 27 mg/dL High 4-19 [facility] Sodium levelOrdered By: Didier Encarnacion on 09-03-2024 Sodium [Moles/Vol] 140 mmol/L 133-145 [facility] Troponin T.cardiac [Mass/vol ume] in Serum or Plasma by High sensitivity methodOrdered By: Didier Encarnacion on 09-03-2024 Troponin T.cardiac High sensitivity method [Mass/Vol] 51 ng/L High <22 [facility] Troponin T.cardiac High sensitivity method [Mass/Vol] 51 ng/L High <22 [facility] White blood cell (WBC) count Ordered By: Didier Encarnacion on 09-03-2024 WBC (Bld) [#/Vol] 9.4 10*3/uL 4.4-11.0 [facility] Urine Cultureon 09-01-2024 URC Culture exhibits no growth. Normal [facility] Comment on above: Performed By: #### L 400.0001, M100.2200 ####[facility] [address] [place], [address] Bilirubin Test strip Ql (U)O rdered By: Alva Patel on 08-31-2024 Bilirubin Ql (U) Negative Negative [facility] Ketones Test strip Ql (U)Ord ered By: Alva Patel on 08-31-2024 Ketones Ql (U) Negative Negative [facility] Microscopic analysis of urin e for red blood cells (RBC)Ordered By: Alva Patel on 08-31-2024 Microscopic analysis of urine for red blood cells (RBC) 0 SEEN /hpf 0-5 [facility] Mucus LM Ql (Urine sed)Order ed By: Alva Patel on 08-31-2024 Mucus Ql (Urine sed) 0 SEEN /hpf [facility] Nitrite Test strip Ql (U)Ord ered By: Alva Patel on 08-31-2024 Nitrite Ql (U) Negative Negative [facility] Protein Test strip Ql (U)Ord ered By: Alva Patel on 08-31-2024 Protein Ql (U) 100 mg/dl High Negative [facility] Squamous epithelial cells de tection in urine sediment by light microscopyOrdered By: Alva Patel on 08-31-2024 Epithelial cells.squamous LM Ql (Urine sed) 0 SEEN /hpf 0-5 [facility] Urinalysis, Completeon 08-31 WBC 0-5 SEEN Normal 0-5 [facility] Comment on above: Order Comment: Urine , Random Performed By: #### L 400.0001, ####[facility] [address] [place], [address] BACTERIA 0 SEEN Normal None Seen [facility] Comment on above: Order Comment: Urine , Random Performed By: #### L 400.0001, ####[facility] [address] [place], [address] EPI,SQUAMOUS 0 SEEN Normal 0-5 [facility] Comment on above: Order Comment: Urine , Random Performed By: #### L 400.0001, ####[facility] [address] [place], [address] Mucus Ql (Urine sed) 0 SEEN Normal [facility] Comment on above: Order Comment: Urine , Random Performed By: #### L 400.0001, ####[facility] [address] [place], [address] RBC 0 SEEN Normal 0-5 [facility] Comment on above: Order Comment: Urine , Random Performed By: #### L 400.0001, M100.2200 ####[facility] [address] [place], [address] Urine clarityOrdered By: Ganesh Patel on 08-31-2024 Clarity (U) Clear Clear [facility] Urine color determinationOrd ered By: Alva Patel on 08-31-2024 Color (U) Yellow Yellow [facility] Urine cultureOrdered By: Ganesh Patel on 08-31-2024 Bacteria identified Cx Nom (U) Culture exhibits no growth. [facility] Urine glucose detectionOrder ed By: Alva Patel on 08-31-2024 Glucose Ql (U) Normal mg/dl Normal [facility] Urine leukocyte esterase det ection by dipstickOrdered By: Alva Patel on 08-31-2024 Leukocyte esterase Test strip Ql (U) 25 /ul High Negative [facility] Urine pHOrdered By: Alva Patel on 08-31-2024 pH (U) 5.0 [pH] 5.0 - 8.0 [facility] Urine sediment bacteria coun t by microscopy (number/high power field)Ordered By: Alva Patel on 08-31-2024 Bacteria LM.HPF (Urine sed) [#/Area] 0 /[HPF] None Seen [facility] Urine specific gravity measu rementOrdered By: Alva Patel on 08-31-2024 Specific gravity (U) [Rel density] 1.015 1.002-1.03 0 [facility] Urine urobilinogen measureme ntOrdered By: Alva Patel on 08-31-2024 Urobilinogen Ql (U) Normal mg/dl Normal [facility] White blood cell countOrdere d By: Alva Patel on 08-31-2024 White blood cell count 0-5 SEEN /hpf 0-5 [facility] Anion gap in Serum or Plasma Ordered By: Nakia Laboy on 08-25-2024 Anion gap [Moles/Vol] 11 mmol/L 5-15 [facility] BUN/creatinine ratioOrdered By: Nakia Laboy on 08-25-2024 Urea nitrogen/Creatinine [Mass ratio] 15.9 mg/mg 10-20 [facility] Carbon dioxide, total [Moles /volume] in Central venous bloodOrdered By: Nakia Laboy on 08-25-2024 CO2 [Moles/Vol] 22.7 mmol/L 21.0-32.0 [facility] Chloride assayOrdered By: Dianna Laboy on 08-25-2024 Chloride [Moles/Vol] 103 mmol/L 98-108 [facility] Glomerular filtration rate ( GFR) estimation/1.73 sq m using serum, plasma, or whole bOrdered By: Nakia Laboy on 08-25-2024 GFR/1.73 sq M.predicted among non-blacks MDRD (S/P/Bld) [Vol rate/Area] 33 mL/min/{1.73_m2} Low >60 [facility] Comment on above: mL/min/1.73m2 CKD-EP I Creatinine Equation (2020) PTHINon 08-25-2024 PTH 71 pg/mL High 11-61 [facility] Comment on above: Performed By: #### M 100.2200, L4 #### [facility] [address] [place], [place], [address] Potassium measurement (mass/ volume)Ordered By: Nakia Laboy on 08-25-2024 Potassium (Unsp spec) [Mass/Vol] 4.4 mmol/L 3.3-5.1 [facility] Renal Profileon 08-25-2024 Albumin [Mass/Vol] 3.3 g/dL Low 3.4-4.8 [facility] Comment on above: Performed By: #### M 100.2200, L4 #### [facility] [address] [place], [place], [address] BUN/CRE 15.9 RATIO Normal 10-20 [facility] Comment on above: Performed By: #### M 100.2200, L4 #### [facility] [address] [place], [address] Calcium [Mass/Vol] 8.6 mg/dL Normal 7.6-11.0 [facility] Comment on above: Performed By: #### M , #### [facility] [address] [place], [address] Chloride [Moles/Vol] 103 mmol/L Normal 98-108 [facility] Comment on above: Performed By: #### M , #### [facility] [address] [place], [address] CO2 [Moles/Vol] 22.7 mmol/L Normal 21.0-32.0 [facility] Comment on above: Performed By: #### M , #### [facility] [address] [place], [address] Creatinine [Mass/Vol] 1.96 mg/dL High 0.70-1.20 [facility] Comment on above: Performed By: #### M , #### [facility] [address] [place], [address] GAP 11 Normal 5-15 [facility] Comment on above: Performed By: #### M , L4 #### [facility] [address] [place], [address] GFR/1.73 sq M.predicted among non-blacks MDRD (S/P/Bld) [Vol rate/Area] 33 mL/min/{1.73_m2} Low >60 [facility] Comment on above: Result Comment: mL/m in/1.73m2 CKD-EPI Creatinine Equation (2020) Performed By: #### M , L4 #### [facility] [address] [place], [address] Glucose [Mass/Vol] 224 mg/dL High 70-99 [facility] [facility] Comment on above: Performed By: #### M 100.2200, L400.2010 #### [facility] [address] [place], [address] Phosphate [Mass/Vol] 3.5 mg/dL Normal 2.7-4.5 [facility] Comment on above: Performed By: #### M 100.2200, L400.2010 #### [facility] [address] [place], [address] Potassium [Moles/Vol] 4.4 mmol/L Normal 3.3-5.1 [facility] Comment on above: Performed By: #### M 100.2199, L400.2010 #### [facility] [address] [place], [address] Sodium [Moles/Vol] 137 mmol/L Normal 133-145 [facility] Comment on above: Performed By: #### M 100.2200, L400.2010 #### [facility] [address] [place], [address] Urea nitrogen [Mass/Vol] 31 mg/dL High 4-19 [facility] Comment on above: Performed By: #### M 100.2199, L400.2010 #### [facility] [address] [place], [address] Serum creatinine measurement (mass/volume)Ordered By: Nakia Laboy on 08-25-2024 Creatinine [Mass/Vol] 1.96 mg/dL High 0.70-1.20 [facility] Serum glucose measurement (m ass/volume)Ordered By: Nakia Laboy on 08-25-2024 Glucose [Mass/Vol] 224 mg/dL High 70-99 [facility] Serum or plasma albumin pedrito urement (mass/volume)Ordered By: Nakia Laboy on 08-25-2024 Albumin [Mass/Vol] 3.3 g/dL Low 3.4-4.8 [facility] Serum or plasma calcium pedrito urement (mass/volume)Ordered By: Nakia Laboy on 08-25-2024 Calcium [Mass/Vol] 8.6 mg/dL 7.6-11.0 [facility] Serum or plasma urea nitroge n measurement (mass/volume)Ordered By: Nakia Laboy on 08-25-2024 Urea nitrogen [Mass/Vol] 31 mg/dL High 4-19 [facility] Sodium levelOrdered By: Indira Laboy on 08-25-2024 Sodium [Moles/Vol] 137 mmol/L 133-145 [facility] Cardiology Visit Reporton Cardiology Visit Report [facility] [address] [place] [address] OFFICE VISIT Date of Service: 08/09/24 MR#: [id number] Acct: [id number] Name: AXEL SERRANO Rep #: [id number] : 1940 Provider: GEETA Burch Age/Sex: 84/M [place] [facility] Status: Signed HPI HPI History of Present Illness Details: Axel Serrano is an 84 -year-old gentleman with a history of HTN, coronary evaluation showing moderate coronary artery disease, aortic valve disease. His coronary evaluation in August 2020 demonstrated mild to moderate coronary artery disease with no high-grade stenosis. He had previously had an FFR to the right posterior descending artery which demonstrated no significant ischemia. His echocardiogram demonstrated an ejection fraction of 40%, with basal inferior hypokinesis and a peak mean gradient of 54/35 mmHg. Due to the low ejection fraction it was felt that he probably had low flow low gradient aortic stenosis. He was referred for an evaluation for possible TAVR. 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 You remember that he had an echocardiogram performed in November 2020 demonstrating an ejection fraction of 47% with stage I diastolic dysfunction. He had his 1 year post TAVR echocardiogram on 10/13/2021 showing ejection fraction of 55%, stage I diastolic dysfunction, peak aortic valve gradient 19 mmHg, and mean aortic valve gradient of 11 mmHg. Pt was in the hospital for altered mental status and Afib with RVR in 04/2024. He was started on Eliquis and did spent time in TCU. He is not aware of any other episodes of afib. He does not have any chest pain/heaviness. At times he does have some SOB. He has not used his CPAP since he has been home, he is in the process of seeing Dr. Otto about this. He does not have any lightheaded/dizziness. He does sometimes have swelling in his legs. He does ambulate with a walker. He does sleep in a chair. 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 Is patient in pain?: No Allergies No Known Allergies Allergy (Verified 08/09/24 13:04) Medications ???Medication ???Instructions ???Recorded ???Confirmed ???Type folic acid 1 mg tablet 1 mg PO DAILY health maitenance 08/09/24 History atorvastatin 40 mg tablet 40 mg PO DAILY cholesterol 2 08/09/24 History sertraline 50 mg tablet 50 mg PO DAILY Depression 02/20/22 08/09/24 History mecobalamin (vitamin B12) 1,000 1,000 mcg PO DAILY health 11/16/23 08/09/24 History mcg chewable tablet [facility] metformin 500 mg tablet,extended 500 mg PO BID DM 11/16/23 08/09/24 History release 24 hr sitagliptin phosphate 50 mg tablet 50 mg PO QDAY Diabetes 11/16/23 08/09/24 History (Januvia) furosemide 40 mg tablet See Rx Instructions .Route 4 08/09/24 Rx .COMPLEX water pill #90 tabs tamsulosin 0.4 mg capsule (Flomax) 0.8 mg PO DAILY bladder 04/24/24 08/09/24 History ferrous gluconate 324 mg (37.5 mg 325 mg (1.0031 x 324 mg (37.5 mg 04/27/24 08/09/24 Rx iron) tablet iron)) PO [employer] maitenance 30 days #15 tabs apixaban 5 mg tablet (Eliquis) 2.5 mg (1/2 x 5 mg) PO BID 30 days 05/16/24 08/09/24 Rx #30 tabs lorazepam 0.5 mg tablet 0.5 mg PO Q4H PRN PRN aggitation 05/16/24 08/09/24 Rx restlessness 30 days #100 tabs metoprolol succinate 50 mg 50 mg PO BID 30 days #60 tabs /12/0108/09/24 Rx tablet,extended release 24 hr rivastigmine tartrate 1.5 mg 1.5 mg PO BIDCM 30 days #60 caps 0 05/16/24 08/09/24 Rx capsule gabapentin 300 mg capsule 300 mg PO BID 08/09/24 08/09/24 Hi story Ejection fraction %: 40 Have you fallen in the past year?: Yes PFSH Medical History (Updated 08/09/24 @ 13:25 by Alva Patel PA, PA) Paroxysmal atrial fibrillation with RVR Parkinson disease Loss of hearing Wears glasses Wears dentures Depression Uses wheelchair Arthritis Anemia Easy bruising Back pain Dietary restriction Former smoker Shortness of breath on exertion History of pain when walking History of edema History of echocardiogram History of stress test Cardiology follow-up encounter History of heart attack Constipation Multiple premature ventricular complexes Fall 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 Normal [facility] CBC W Auto Differential pane l (Bld)on 08-07-2024 Basophils (Bld) [#/Vol] 0.05 10*3/uL Normal <0.11 [facility] Comment on above: Order Comment: Speci men Type: BLOOD SPECIMENOrdering Facility: [facility] Address: [address] [place] [address] Performed By: #### 5 7021-8 ####[facility] [id number] [place] [address] [place] Basophils/100 WBC (Bld) 0.6 % Normal [facility] Comment on above: Order Comment: Speci men Type: BLOOD SPECIMENOrdering Facility: [facility] Address: [address] [place] [address] Performed By: #### 5 7021-8 ####[facility] [id number] [place] [address] [place] Differential cell count method Nom (Bld) Auto Normal [facility] Comment on above: Order Comment: Speci men Type: BLOOD SPECIMENOrdering Facility: [facility] Address: [address] [place] [address] Performed By: #### 5 7021-8 ####[facility] [id number] [place] [address] [place] Eosinophils (Bld) [#/Vol] 0.33 10*3/uL Normal <0.46 [facility] Comment on above: Order Comment: Speci men Type: BLOOD SPECIMENOrdering Facility: [facility] Address: [address] [place] [address] Performed By: #### 5 7021-8 ####[facility] [id number] [place] [address] [place] Eosinophils/100 WBC (Bld) 3.9 % Normal [facility] Comment on above: Order Comment: Speci men Type: BLOOD SPECIMENOrdering Facility: [facility] Address: [address] [place] [address] Performed By: #### 5 7021-8 ####[facility] [id number] [place] [address] [place] Erythrocyte distribution width (RBC) [Ratio] 14.7 % Normal 11.5-15.0 [facility] Comment on above: Order Comment: Speci men Type: BLOOD SPECIMENOrdering Facility: [facility] Address: [address] [place] [address] Performed By: #### 5 7021-8 ####[facility] [id number] [place] [address] [place] Hematocrit (Bld) [Volume fraction] 31.0 % Low 39.0-51.0 [facility] Comment on above: Order Comment: Speci men Type: BLOOD SPECIMENOrdering Facility: [facility] Address: [address] [place] [address] Performed By: #### 5 7021-8 ####[facility] HOSPITALKAVITAMingo [id number] [place] [address] [place] Hemoglobin (Bld) [Mass/Vol] 10.1 g/dL Low 13.0-17.0 [facility] Comment on above: Order Comment: Speci men Type: BLOOD SPECIMENOrdering Facility: [facility] Address: [address] [place] [address] Performed By: #### 5 7021-8 ####[facility] HOSPITALMingo [id number] [place] [address] [place] Immature granulocytes (Bld) [#/Vol] 0.05 10*3/uL Normal <0.10 [facility] Comment on above: Order Comment: Speci men Type: BLOOD SPECIMENOrdering Facility: [facility] Address: [address] [place] [address] Performed By: #### 5 7021-8 ####[facility] HOSPITALKAVITAA [id number] [place] [address] [place] Immature granulocytes/100 WBC (Bld) 0.6 % Normal [facility] Comment on above: Order Comment: Speci men Type: BLOOD SPECIMENOrdering Facility: [facility] Address: [address] [place] [address] Performed By: #### 5 7021-8 ####[facility] HOSPITALWNCLIA [id number] [place] [address] [place] Lymphocytes (Bld) [#/Vol] 1.27 10*3/uL Normal 1.00-4.00 [facility] Comment on above: Order Comment: Speci men Type: BLOOD SPECIMENOrdering Facility: [facility] Address: [address] [place] [address] Performed By: #### 5 7021-8 ####[facility] CENTERLIA [id number] [place] [address] [place] Lymphocytes/100 WBC (Bld) 14.9 % Normal [facility] Comment on above: Order Comment: Speci men Type: BLOOD SPECIMENOrdering Facility: [facility] Address: [address] [place] [address] Performed By: #### 5 7021-8 ####[facility]ITALNCS[facility] [id number] [place] [address] [place] MCH (RBC) [Entitic mass] 28.9 pg Normal 26.0-34.0 [facility] Comment on above: Order Comment: Speci men Type: BLOOD SPECIMENOrdering Facility: [facility] Address: [address] [place] [address] Performed By: #### 5 7021-8 ####[facility] CENTERLIA [id number] [place] [address] [place] MCHC (RBC) [Mass/Vol] 32.6 g/dL Normal 30.5-36.0 [facility] Comment on above: Order Comment: Speci men Type: BLOOD SPECIMENOrdering Facility: [facility] Address: [address] [place] [address] Performed By: #### 5 7021-8 ####[facility] HOSPITALNCLIA [id number] [place] [address] [place] MCV (RBC) [Entitic vol] 88.6 fL Normal 80.0-100.0 [facility] Comment on above: Order Comment: Speci men Type: BLOOD SPECIMENOrdering Facility: [facility] Address: [address] [place] [address] Performed By: #### 5 7021-8 ####[facility] [id number] [place] [address] [place] Monocytes (Bld) [#/Vol] 0.60 10*3/uL Normal <0.87 [facility] Comment on above: Order Comment: Speci men Type: BLOOD SPECIMENOrdering Facility: [facility] Address: [address] [place] [address] Performed By: #### 5 7021-8 ####[facility] [id number] [place] [address] [place] Monocytes/100 WBC (Bld) 7.0 % Normal [facility] Comment on above: Order Comment: Speci men Type: BLOOD SPECIMENOrdering Facility: [facility] Address: [address] [place] [address] Performed By: #### 5 7021-8 ####[facility] [id number] [place] [address] [place] Neutrophils (Bld) [#/Vol] 6.22 10*3/uL Normal 1.45-7.50 [facility] Comment on above: Order Comment: Speci men Type: BLOOD SPECIMENOrdering Facility: [facility] Address: [address] [place] [address] Performed By: #### 5 7021-8 ####[facility] HOSPITALNCA [id number] [place] [address] [place] Neutrophils/100 WBC (Bld) 73.0 % Normal [facility] Comment on above: Order Comment: Speci men Type: BLOOD SPECIMENOrdering Facility: [facility] Address: [address] [place] [address] Performed By: #### 5 7021-8 ####[facility] [id number] [place] [address] [place] Nucleated RBC (Bld) [#/Vol] 10*3/uL Normal <0.01 [facility] Comment on above: Order Comment: Speci men Type: BLOOD SPECIMENOrdering Facility: [facility] Address: [address] [place] [address] Performed By: #### 5 7021-8 ####[facility] HOSPITALJAMAL [id number] [place] [address] [place] Nucleated RBC/100 WBC (Bld) [Ratio] 0.0 /100 WBC Normal [facility] Comment on above: Order Comment: Speci men Type: BLOOD SPECIMENOrdering Facility: [facility] Address: [address] [place] [address] Performed By: #### 5 7021-8 ####[facility] HOSPITALNCCOLTONA [id number] [place] [address] [place] Platelet mean volume (Bld) [Entitic vol] 9.6 fL Normal 9.0-12.7 [facility] Comment on above: Order Comment: Speci men Type: BLOOD SPECIMENOrdering Facility: [facility] Address: [address] [place] [address] Performed By: #### 5 7021-8 ####[facility] HOSPITALNCLIA [id number] [place] [address] [place] Platelets (Bld) [#/Vol] 152 10*3/uL Normal 150-400 [facility] Comment on above: Order Comment: Speci men Type: BLOOD SPECIMENOrdering Facility: [facility] Address: [address] [place] [address] Performed By: #### 5 7021-8 ####[facility] CENTERLIA [id number] [place] [address] [place] RBC (Bld) [#/Vol] 3.50 10*6/uL Low 4.20-6.00 [facility] Comment on above: Order Comment: Speci men Type: BLOOD SPECIMENOrdering Facility: [facility] Address: [address] [place] [address] Performed By: #### 5 7021-8 ####[facility] HOSPITALA [id number] [place] [address] [place] WBC (Bld) [#/Vol] 8.52 10*3/uL Normal 3.70-11.00 [facility] Comment on above: Order Comment: Speci men Type: BLOOD SPECIMENOrdering Facility: [facility] Address: [address] [place] [address] Performed By: #### 5 7021-8 ####[facility] HOSPITALA [id number] [place] [address] [place] CNPNon 07-24-2024 CNPN Normal [facility] CNPTOUTREACHon 07-13-2024 CNPTOUTREACH Normal [facility] CBC W Auto Differential pane l (Bld)on 07-10-2024 Basophils (Bld) [#/Vol] 0.04 10*3/uL Normal <0.11 [facility] Comment on above: Order Comment: Speci men Type: BLOOD SPECIMENOrdering Facility: [facility] Address: [address] [place], [place] [address] Performed By: #### 5 7021-8 ####[facility] HOSPITALNCLIA [id number] [place] [address] [place] Basophils/100 WBC (Bld) 0.5 % Normal [facility] Comment on above: Order Comment: Speci men Type: BLOOD SPECIMENOrdering Facility: [facility] Address: [address] [place] [address] Performed By: #### 5 7021-8 ####[facility] MIKELWNCLIA [id number] [place] [address] [place] Differential cell count method Nom (Bld) Auto Normal [facility] Comment on above: Order Comment: Speci men Type: BLOOD SPECIMENOrdering Facility: [facility] Address: [address] [place] [address] Performed By: #### 5 7021-8 ####[facility] MILLSherryNCLIA [id number] [place] [address] [place] Eosinophils (Bld) [#/Vol] 0.33 10*3/uL Normal <0.46 [facility] Comment on above: Order Comment: Speci men Type: BLOOD SPECIMENOrdering Facility: [facility] Address: [address] [place] [address] Performed By: #### 5 7021-8 ####[facility] HOSPITALWNCLIA [id number] [place] [address] [place] Eosinophils/100 WBC (Bld) 3.9 % Normal [facility] Comment on above: Order Comment: Speci men Type: BLOOD SPECIMENOrdering Facility: [facility] Address: [address] [place] [address] Performed By: #### 5 7021-8 ####[facility] HOSPITALWNCLIA [id number] [place] [address] [place] Erythrocyte distribution width (RBC) [Ratio] 14.7 % Normal 11.5-15.0 [facility] Comment on above: Order Comment: Speci men Type: BLOOD SPECIMENOrdering Facility: [facility] Address: [address] [place] [address] Performed By: #### 5 7021-8 ####[facility] HOSPITALNCLIA [id number] [place] [address] [place] Hematocrit (Bld) [Volume fraction] 30.5 % Low 39.0-51.0 [facility] Comment on above: Order Comment: Speci men Type: BLOOD SPECIMENOrdering Facility: [facility] Address: [address] [place] [address] Performed By: #### 5 7021-8 ####[facility] [id number] [place] [address] [place] Hemoglobin (Bld) [Mass/Vol] 9.9 g/dL Low 13.0-17.0 [facility] Comment on above: Order Comment: Speci men Type: BLOOD SPECIMENOrdering Facility: [facility] Address: [address] [place] [address] Performed By: #### 5 7021-8 ####[facility] [id number] [place] [address] [place] Immature granulocytes (Bld) [#/Vol] 0.05 10*3/uL Normal <0.10 [facility] Comment on above: Order Comment: Speci men Type: BLOOD SPECIMENOrdering Facility: [facility] Address: [address] [place] [address] Performed By: #### 5 7021-8 ####[facility] [id number] [place] [address] [place] Immature granulocytes/100 WBC (Bld) 0.6 % Normal [facility] Comment on above: Order Comment: Speci men Type: BLOOD SPECIMENOrdering Facility: [facility] Address: [address] [place] [address] Performed By: #### 5 7021-8 ####[facility] [id number] [place] [address] [place] Lymphocytes (Bld) [#/Vol] 1.09 10*3/uL Normal 1.00-4.00 [facility] Comment on above: Order Comment: Speci men Type: BLOOD SPECIMENOrdering Facility: [facility] Address: [address] [place] [address] Performed By: #### 5 7021-8 ####[facility]ITALNCS[facility] [id number] [place] [address] [place] Lymphocytes/100 WBC (Bld) 12.8 % Normal [facility] Comment on above: Order Comment: Speci men Type: BLOOD SPECIMENOrdering Facility: [facility] Address: [address] [place] [address] Performed By: #### 5 7021-8 ####[facility]ITALNCS[facility] [id number] [place] [address] [place] MCH (RBC) [Entitic mass] 29.3 pg Normal 26.0-34.0 [facility] Comment on above: Order Comment: Speci men Type: BLOOD SPECIMENOrdering Facility: [facility] Address: [address] [place] [address] Performed By: #### 5 7021-8 ####[facility] HOSPITALNCLI [id number] [place] [address] [place] MCHC (RBC) [Mass/Vol] 32.5 g/dL Normal 30.5-36.0 [facility] Comment on above: Order Comment: Speci men Type: BLOOD SPECIMENOrdering Facility: [facility] Address: [address] [place] [address] Performed By: #### 5 7021-8 ####[facility] HOSPITALNCLI [id number] [place] [address] [place] MCV (RBC) [Entitic vol] 90.2 fL Normal 80.0-100.0 C [facility] Comment on above: Order Comment: Speci men Type: BLOOD SPECIMENOrdering Facility: [facility] Address: [address] [place] [address] Performed By: #### 5 7021-8 ####[facility] MILLLAZAROWNCLIA [id number] [place] [address] [place] Monocytes (Bld) [#/Vol] 0.57 10*3/uL Normal <0.87 [facility] Comment on above: Order Comment: Speci men Type: BLOOD SPECIMENOrdering Facility: [facility] Address: [address] [place] [address] Performed By: #### 5 7021-8 ####[facility] MILLWNCLIA [id number] [place] [address] [place] Monocytes/100 WBC (Bld) 6.7 % Normal [facility] Comment on above: Order Comment: Speci men Type: BLOOD SPECIMENOrdering Facility: [facility] Address: [address] [place] [address] Performed By: #### 5 7021-8 ####[facility] ELLENWNCLIA [id number] [place] [address] [place] Neutrophils (Bld) [#/Vol] 6.46 10*3/uL Normal 1.45-7.50 [facility] Comment on above: Order Comment: Speci men Type: BLOOD SPECIMENOrdering Facility: [facility] Address: [address] [place] [address] Performed By: #### 5 7021-8 ####[facility] MILLTOWNCLIA [id number] [place] [address] [place] Neutrophils/100 WBC (Bld) 75.5 % Normal [facility] Comment on above: Order Comment: Speci men Type: BLOOD SPECIMENOrdering Facility: [facility] Address: [address] [place] [address] Performed By: #### 5 7021-8 ####[facility] MILLWNCLIA [id number] [place] [address] [place] Nucleated RBC (Bld) [#/Vol] 10*3/uL Normal <0.01 [facility] Comment on above: Order Comment: Speci men Type: BLOOD SPECIMENOrdering Facility: [facility] Address: [address] [place] [address] Performed By: #### 5 7021-8 ####[facility] [id number] [place] [address] [place] Nucleated RBC/100 WBC (Bld) [Ratio] 0.0 /100 WBC Normal [facility] Comment on above: Order Comment: Speci men Type: BLOOD SPECIMENOrdering Facility: [facility] Address: [address] [place] [address] Performed By: #### 5 7021-8 ####[facility] [id number] [place] [address] [place] Platelet mean volume (Bld) [Entitic vol] 10.9 fL Normal 9.0-12.7 [facility] Comment on above: Order Comment: Speci men Type: BLOOD SPECIMENOrdering Facility: [facility] Address: [address] [place] [address] Performed By: #### 5 7021-8 ####[facility] [id number] [place] [address] [place] Platelets (Bld) [#/Vol] 162 10*3/uL Normal 150-400 [facility] Comment on above: Order Comment: Speci men Type: BLOOD SPECIMENOrdering Facility: [facility] Address: [address] [place] [address] Performed By: #### 5 7021-8 ####[facility]ITALNCLIA [id number] [place] [address] [place] RBC (Bld) [#/Vol] 3.38 10*6/uL Low 4.20-6.00 [facility] Comment on above: Order Comment: Speci men Type: BLOOD SPECIMENOrdering Facility: [facility] Address: [address] [place] [address] Performed By: #### 5 7021-8 ####[facility] HOSPITALNCA [id number] [place] [address] [place] WBC (Bld) [#/Vol] 8.54 10*3/uL Normal 3.70-11.00 [facility] Comment on above: Order Comment: Speci men Type: BLOOD SPECIMENOrdering Facility: [facility] Address: [address] [place] [address] Performed By: #### 5 7021-8 ####[facility]ITAL[facility]CS[facility] [id number] [place] [address] [place] CNOVSPon 07-10-2024 CNOVSP Normal [facility] Ferritin SerPl-mCncon 2024 Ferritin [Mass/Vol] 459.0 ng/mL Normal 30.3-565.7 [facility] Comment on above: Order Comment: Speci men Type: BLOOD SPECIMENOrdering Facility: [facility] Address: [address] [place] [address] Performed By: #### 2 276-4, 87668-9 ####[facility] LABORATORYCLIA [id number] [place] [address] [place] Iron and Iron binding capaci ty panelon 07-10-2024 Iron [Mass/Vol] 54 ug/dL Normal 41-186 [facility] Comment on above: Order Comment: Speci men Type: BLOOD SPECIMENOrdering Facility: [facility] Address: [address] [place] [address] Performed By: #### 2 276-4, 47800-6 ####[facility] LABORATORYCLIA [id number] [place] [id number] [place] Iron binding capacity [Mass/Vol] 207 ug/dL Low 232-386 [facility] Comment on above: Order Comment: Speci men Type: BLOOD SPECIMENOrdering Facility: [facility] Address: [address] [place] [address] Performed By: #### 2 276-4, 47540-2 ####[facility] LABORATORYCLIA [id number] [place] [address] [facility] Iron saturation [Mass fraction] 26.1 % Normal 15.0-57.0 [facility] Comment on above: Order Comment: Speci men Type: BLOOD SPECIMENOrdering Facility: [facility] Address: [address] [place] [address] Performed By: #### 2 276-4, 33577-7 ####[facility] LABORATORYCLIA [id number] [place] [address] [facility] CNPNon 06-26-2024 CNPN Normal [facility] CNPNon 06-20-2024 CNPN Normal [facility] Urine Cultureon 06-11-2024 URC #1 Below infection l evel. 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 Submit a new specimen if indicated. MIXGP [place] Count 50,000-80,000 Mixed Gram Positive Organisms Normal [facility] Comment on above: Performed By: #### M 100.2199, L4 #### [facility] [address] [place], [address] Urinalysis, Routine (Dipstic k)on 06-09-2024 BILIRUBIN URINE Negative Normal Negative [facility] Comment on above: Order Comment: CLEAN CATCH Performed By: #### M 100.0, L4 #### [facility] [address] [place], [address] Clarity (U) Clear Normal Clear [facility] Comment on above: Order Comment: CLEAN CATCH Performed By: #### M 100.0, L4 #### [facility] [address] [place], [address] Color (U) Yellow Normal Yellow [facility] Comment on above: Order Comment: CLEAN CATCH Performed By: #### M 100, L4.2010 #### [facility] [address] [place], [address] GLUCOSE, UR Normal Normal Normal [facility] Comment on above: Order Comment: CLEAN CATCH Performed By: #### M , .2010 #### [facility] [address] [place], [address] KETONE UR Negative Normal Negative [facility] Comment on above: Order Comment: CLEAN CATCH Performed By: #### M , L4 #### [facility] [address] [place], [address] LEUK ESTERASE Negative Normal Negative [facility] Comment on above: Order Comment: CLEAN CATCH Performed By: #### M , L4 #### [facility] [address] [place], [address] Nitrite Ql (U) Negative Normal Negative [facility] Comment on above: Order Comment: CLEAN CATCH Performed By: #### M , L4 #### [facility] [address] [place], [address] OCCULT BLOOD-UR Negative Normal Negative [facility] Comment on above: Order Comment: CLEAN CATCH Performed By: #### M , L4 #### [facility] [address] [place], [address] pH UR 5.0 Normal 5.0 - 8.0 [facility] Comment on above: Order Comment: CLEAN CATCH Performed By: #### M , L4 #### [facility] [address] [place], [address] PROT DIPSTX 15 mg/dl Abnormal Negative [facility] Comment on above: Order Comment: CLEAN CATCH Performed By: #### M 100.2200, L400.2010 #### [facility] [address] [place], [address] SP.GR. DIPSTX 1.010 Normal 1.002-1.03 0 [facility] Comment on above: Order Comment: CLEAN CATCH Performed By: #### M 100.0, L4.2010 #### [facility] [address] [place], [address] UROBILI Normal Normal Normal [facility] Comment on above: Order Comment: CLEAN CATCH Performed By: #### M 100.2199, L4.2010 #### [facility] [address] [place], [address] CNPNon 06-07-2024 CNPN Normal [facility] CNPNon 06-02-2024 CNPN Normal [facility] CNOVon 06-01-2024 CNOV Normal [facility] CNPNon 06-01-2024 CNPN Normal [facility] CBC W Auto Differential pane l (Bld)on 05-29-2024 Basophils (Bld) [#/Vol] 0.03 10*3/uL Normal <0.11 [facility] Comment on above: Order Comment: Speci men Type: BLOOD SPECIMENOrdering Facility: [facility] Address: [address] [place] [address] Performed By: #### 5 7021-8 ####[facility] HOSPITALNCLIA [id number] [place] [address] [place] Basophils/100 WBC (Bld) 0.3 % Normal C [facility] Comment on above: Order Comment: Speci men Type: BLOOD SPECIMENOrdering Facility: [facility] Address: [address] [place] [id number] Performed By: #### 5 7021-8 ####[facility]S HOSPITALZENA [id number] [place] [id number] [place] Differential cell count method Nom (Bld) Auto Normal [facility] Comment on above: Order Comment: Speci men Type: BLOOD SPECIMENOrdering Facility: [facility] Address: [address] [place] [address] Performed By: #### 5 7021-8 ####[facility]ITALNCS[facility] [id number] [place] [address] [place] Eosinophils (Bld) [#/Vol] 0.29 10*3/uL Normal <0.46 [facility] Comment on above: Order Comment: Speci men Type: BLOOD SPECIMENOrdering Facility: [facility] Address: [address] [place] [address] Performed By: #### 5 7021-8 ####[facility] [id number] [place] [address] [place] Eosinophils/100 WBC (Bld) 2.6 % Normal [facility] Comment on above: Order Comment: Speci men Type: BLOOD SPECIMENOrdering Facility: [facility] Address: [address] [place] [address] Performed By: #### 5 7021-8 ####[facility] HOSPITALNCLI [id number] [place] [address] [place] Erythrocyte distribution width (RBC) [Ratio] 15.9 % High 11.5-15.0 [facility] Comment on above: Order Comment: Speci men Type: BLOOD SPECIMENOrdering Facility: [facility] Address: [address] [place] [address] Performed By: #### 5 7021-8 ####[facility] [id number] [place] [address] [place] Hematocrit (Bld) [Volume fraction] 34.4 % Low 39.0-51.0 [facility] Comment on above: Order Comment: Speci men Type: BLOOD SPECIMENOrdering Facility: [facility] Address: [address] [place] [address] Performed By: #### 5 7021-8 ####[facility] HOSPITALKAVITASAN JU[facility]PITAL [id number] [place] [address] [place] Hemoglobin (Bld) [Mass/Vol] 11.2 g/dL Low 13.0-17.0 [facility] Comment on above: Order Comment: Speci men Type: BLOOD SPECIMENOrdering Facility: [facility] Address: [address] [place] [address] Performed By: #### 5 7021-8 ####[facility] [id number] [place] [address] [place] Immature granulocytes (Bld) [#/Vol] 0.11 10*3/uL High <0.10 [facility] Comment on above: Order Comment: Speci men Type: BLOOD SPECIMENOrdering Facility: [facility] Address: [address] [place] [address] Performed By: #### 5 7021-8 ####[facility] [id number] [place] [address] [place] Immature granulocytes/100 WBC (Bld) 1.0 % Normal [facility] Comment on above: Order Comment: Speci men Type: BLOOD SPECIMENOrdering Facility: [facility] Address: [address] [place] [address] Performed By: #### 5 7021-8 ####[facility] [id number] [place] [address] [place] Lymphocytes (Bld) [#/Vol] 1.29 10*3/uL Normal 1.00-4.00 [facility] Comment on above: Order Comment: Speci men Type: BLOOD SPECIMENOrdering Facility: [facility] Address: [address] [place] [address] Performed By: #### 5 7021-8 ####[facility] ELLENURBANAKAVITALIA [id number] [place] [address] [place] Lymphocytes/100 WBC (Bld) 11.6 % Normal [facility] Comment on above: Order Comment: Speci men Type: BLOOD SPECIMENOrdering Facility: [facility] Address: [address] [place] [address] Performed By: #### 5 7021-8 ####[facility] HOSPITALKAVITALIA [id number] [place] [address] [place] MCH (RBC) [Entitic mass] 28.6 pg Normal 26.0-34.0 [facility] Comment on above: Order Comment: Speci men Type: BLOOD SPECIMENOrdering Facility: [facility] Address: [address] [place] [address] Performed By: #### 5 7021-8 ####[facility]ITALKAVITASAN [facility] [id number] [place] [address] [place] MCHC (RBC) [Mass/Vol] 32.6 g/dL Normal 30.5-36.0 [facility] Comment on above: Order Comment: Speci men Type: BLOOD SPECIMENOrdering Facility: [facility] Address: [address] [place] [address] Performed By: #### 5 7021-8 ####[facility] HOSPITALKAVITAA [id number] [place] [address] [place] MCV (RBC) [Entitic vol] 87.8 fL Normal 80.0-100.0 C [facility] Comment on above: Order Comment: Speci men Type: BLOOD SPECIMENOrdering Facility: [facility] Address: [address] [place] [address] Performed By: #### 5 7021-8 ####[facility] HOSPITALNCLI [id number] [place] [address] [place] Monocytes (Bld) [#/Vol] 0.73 10*3/uL Normal <0.87 [facility] Comment on above: Order Comment: Speci men Type: BLOOD SPECIMENOrdering Facility: [facility] Address: [address] [place] [address] Performed By: #### 5 7021-8 ####[facility] MED[facility] CENTERLIA [id number] [place] [address] [place] Monocytes/100 WBC (Bld) 6.6 % Normal [facility] Comment on above: Order Comment: Speci men Type: BLOOD SPECIMENOrdering Facility: [facility] Address: [address] [place] [address] Performed By: #### 5 7021-8 ####[facility] [id number] [place] [address] [place] Neutrophils (Bld) [#/Vol] 8.65 10*3/uL High 1.45-7.50 [facility] Comment on above: Order Comment: Speci men Type: BLOOD SPECIMENOrdering Facility: [facility] Address: [address] [place] [address] Performed By: #### 5 7021-8 ####[facility] HOSPITALA [id number] [place] [address] [place] Neutrophils/100 WBC (Bld) 77.9 % Normal [facility] Comment on above: Order Comment: Speci men Type: BLOOD SPECIMENOrdering Facility: [facility] Address: [address] [place] [address] Performed By: #### 5 7021-8 ####[facility] HOSPITALA [id number] [place] [address] [place] Nucleated RBC (Bld) [#/Vol] 10*3/uL Normal <0.01 [facility] Comment on above: Order Comment: Speci men Type: BLOOD SPECIMENOrdering Facility: [facility] Address: [address] [place] [address] Performed By: #### 5 7021-8 ####[facility] GERTRUDE [id number] [place] [address] [place] Nucleated RBC/100 WBC (Bld) [Ratio] 0.0 /100 WBC Normal [facility] Comment on above: Order Comment: Speci men Type: BLOOD SPECIMENOrdering Facility: [facility] Address: [address] [place] [address] Performed By: #### 5 7021-8 ####[facility] HOSPITALNCTAINA [id number] [place] [address] [place] Platelet mean volume (Bld) [Entitic vol] 9.9 fL Normal 9.0-12.7 [facility] Comment on above: Order Comment: Speci men Type: BLOOD SPECIMENOrdering Facility: [facility] Address: [address] [place] [address] Performed By: #### 5 7021-8 ####[facility] HOSPITALMingo [id number] [place] [address] [place] Platelets (Bld) [#/Vol] 155 10*3/uL Normal 150-400 [facility] Comment on above: Order Comment: Speci men Type: BLOOD SPECIMENOrdering Facility: [facility] Address: [address] [place] [address] Performed By: #### 5 7021-8 ####[facility] MED[facility] CENTERLIA [id number] [place] [address] [place] RBC (Bld) [#/Vol] 3.92 10*6/uL Low 4.20-6.00 [facility] Comment on above: Order Comment: Speci men Type: BLOOD SPECIMENOrdering Facility: [facility] Address: [address] [place] [address] Performed By: #### 5 7021-8 ####[facility] ANTCHANDRIKA HUGHESTOWNCLIA [id number] [place] [address] [place] WBC (Bld) [#/Vol] 11.10 10*3/uL High 3.70-11.00 [facility] Comment on above: Order Comment: Speci men Type: BLOOD SPECIMENOrdering Facility: [facility] Address: [address] [place] [address] Performed By: #### 5 7021-8 ####[facility] GENERALCHANDRIKA HUGHESURBANANCLIA [id number] [place] [address] [place] CNOVSPon 05-29-2024 CNOVSP Normal [facility] Basic Metabolic Profile (BMP )on 05-26-2024 BUN Normal 7-18 [facility] Comment on above: Result Comment: Canc elled via OM: Order cancelled - Patient discharged Performed By: #### M 100.2199, L4 #### [facility] [address] [place], [address] BUN/CRE Normal 10-20 [facility] Comment on above: Result Comment: Canc elled via OM: Order cancelled - Patient discharged Performed By: #### M 100.2199, #### [facility] [address] [place], [address] CA,Total Normal 8.5-10.1 [facility] Comment on above: Result Comment: Canc elled via OM: Order cancelled - Patient discharged Performed By: #### M 100.2199, L4 #### [facility] [address] [place], [address] CL Normal 98-107 [facility] Comment on above: Result Comment: Canc elled via OM: Order cancelled - Patient discharged Performed By: #### M 100.2199, L4 #### [facility] [address] [place], [address] CO2 Normal 21.0-32.0 [facility] Comment on above: Result Comment: Canc elled via OM: Order cancelled - Patient discharged Performed By: #### M .2199, L4.2010 #### [facility] [address] [place], [address] CREAT,SERUM Normal 0.70-1.30 [facility] Comment on above: Result Comment: Canc elled via OM: Order cancelled - Patient discharged Performed By: #### M .2199, L4 #### [facility] [address] [place], [address] EST GFR Normal >60 [facility] Comment on above: Result Comment: Canc elled via OM: Order cancelled - Patient discharged Performed By: #### M , L4 #### [facility] [address] [place], [address] EST GFR - AA Normal >60 [facility] Comment on above: Result Comment: Canc elled via OM: Order cancelled - Patient discharged Performed By: #### M , L4 #### [facility] [address] [place], [address] GAP Normal 5-15 [facility] Comment on above: Result Comment: Canc elled via OM: Order cancelled - Patient discharged Performed By: #### M , L4 #### [facility] [address] [place], [address] GLU Normal 74-106 [facility] Comment on above: Result Comment: Canc elled via OM: Order cancelled - Patient discharged Performed By: #### M , L4 #### [facility] [address] [place], [address] Potassium Normal 3.5-5.1 [facility] Comment on above: Result Comment: Canc elled via OM: Order cancelled - Patient discharged Performed By: #### M 100.2199, L4.2010 #### [facility] [address] [place], [address] Basic Metabolic Profile (BMP) Normal 136-145 [facility] Comment on above: Result Comment: Canc elled via OM: Order cancelled - Patient discharged Performed By: #### M 100.2199, L4 #### [facility] [address] [place], [address] CBC W/Diff, Automatedon 05-10 Absolute Neut Normal 2.0-7.7 [facility] Comment on above: Result Comment: Canc elled via OM: Order cancelled - Patient discharged Performed By: #### M , L4 #### [facility] [address] [place], [address] HCT Normal 40-54 [facility] Comment on above: Result Comment: Canc elled via OM: Order cancelled - Patient discharged Performed By: #### M , L4 #### [facility] [address] [place], [address] HGB Normal 13.0-16.5 [facility] Comment on above: Result Comment: Canc elled via OM: Order cancelled - Patient discharged Performed By: #### M .2199, L4 #### [facility] [address] [place], [address] MCH Normal 27.0-32.0 [facility] Comment on above: Result Comment: Canc elled via OM: Order cancelled - Patient discharged Performed By: #### M .2199, L4 #### [facility] [address] [place], [address] MCHC Normal 32-36 [facility] Comment on above: Result Comment: Canc elled via OM: Order cancelled - Patient discharged Performed By: #### M 100.2199, L4 #### [facility] [address] [place], [address] MCV Normal 80-94 [facility] Comment on above: Result Comment: Canc elled via OM: Order cancelled - Patient discharged Performed By: #### M 100.2199, L4 #### [facility] [address] [place], [address] NEUT% Normal 47-70 [facility] Comment on above: Result Comment: Canc elled via OM: Order cancelled - Patient discharged Performed By: #### M .2199, L4 #### [facility] [address] [place], [address] PLT Normal 150-450 [facility] Comment on above: Result Comment: Canc elled via OM: Order cancelled - Patient discharged Performed By: #### M , L4 #### [facility] [address] [place], [address] RBC Normal 4.6-6.2 [facility] Comment on above: Result Comment: Canc elled via OM: Order cancelled - Patient discharged Performed By: #### M 100, L4 #### [facility] [address] [place], [address] RDW CV Normal 11.6-14.6 [facility] Comment on above: Result Comment: Canc elled via OM: Order cancelled - Patient discharged Performed By: #### M 100, L4 #### [facility] [address] [place], [address] RDW SD Normal 35.1-43.9 [facility] Comment on above: Result Comment: Canc elled via OM: Order cancelled - Patient discharged Performed By: #### M 100.2200, L4.2010 #### [facility] [address] [place], [address] WBC Normal 4.4-11.0 [facility] Comment on above: Result Comment: Canc elled via OM: Order cancelled - Patient discharged Performed By: #### M 100.2200, L4.2010 #### [facility] [address] [place], [address] CNPNon 05-23-2024 CNPN Normal [facility] CNPNon 05-22-2024 CNPN Normal [facility] Basic Metabolic Profile (BMP )on 05-19-2024 BUN/CRE 19.9 RATIO Normal -20 [facility] Comment on above: Performed By: #### L 500.2500, L100.0100 ####[facility] [address] [place], [address] CA,Total 9.0 mg/dL Normal 8.5-10.1 [facility] Comment on above: Performed By: #### L 500.2500, L100.0100 ####[facility] [address] [place], [address] Chloride [Moles/Vol] 114 mmol/L High 98-107 [facility] Comment on above: Performed By: #### L 500.2500, L100.0100 ####[facility] [address] [place], [address] CO2 [Moles/Vol] 21.0 mmol/L Normal 21.0-32.0 [facility] Comment on above: Performed By: #### L 500.2500, L100.0100 ####[facility] [address] [place], [address] Creatinine [Mass/Vol] 2.21 mg/dL High 0.70-1.30 [facility] Comment on above: Result Comment: The validity of the calculated GFR GFRAA in patients over 70 years has not been determined. Clinical correlation is essential. Performed By: #### L 500.2500, L100.0100 ####[facility] [address] [place], [address] ECRCL 33.08 ml/min Normal [facility] Comment on above: Performed By: #### L 500.2500, L100.0100 ####[facility] [address] [place], [address] EST GFR - AA 37 mL/min Low >60 [facility] Comment on above: Result Comment: Afri can Icelandic GFR Calc Performed By: #### L 500.2500, L100.0100 ####[facility] [address] [place], [address] GAP 6 Normal 5-15 [facility] Comment on above: Performed By: #### L 500.2500, L100.0100 ####[facility] [address] [place], [address] GFR/1.73 sq M.predicted among non-blacks MDRD (S/P/Bld) [Vol rate/Area] 30 mL/min/{1.73_m2} Low >60 [facility] Comment on above: Result Comment: Non- GFR Calc Performed By: #### L 500.2500, L100.0100 ####[facility] [address] [place], [address] Glucose [Mass/Vol] 186 mg/dL High 74-106 [facility] Comment on above: Result Comment: Fast ing Glucose result greater than or equal to 126 mg/dL suggests DIABETES MELLITUS per A.D.A. criteria. Performed By: #### L 500.2500, L100.0100 ####[facility] [address] [place], [address] Potassium [Moles/Vol] 4.6 mmol/L Normal 3.5-5.1 [facility] Comment on above: Performed By: #### L 500.2500, L100.0100 ####[facility] [address] [place], [address] Sodium [Moles/Vol] 141 mmol/L Normal 136-145 [facility] Comment on above: Performed By: #### L 500.2500, L100.0100 ####[facility] [address] [place], [address] Urea nitrogen [Mass/Vol] 44 mg/dL High 7-18 [facility] Comment on above: Performed By: #### L 500.2500, L100.0100 ####[facility] [address] [place], [address] Bedside Glucoseon 05-19-2024 FINGERSTICK GLU 167 mg/dL High 74-106 [facility] Comment on above: Result Comment: EARNESTINE GEMENT OF PATIENT CARE PER NURSING PROTOCOL Performed By: #### L 500.4050, L100.0100, L501.5425 #### [facility] [address] [place], [address] FINGERSTICK GLU 165 mg/dL High 74-106 [facility] Comment on above: Result Comment: EARNESTINE GEMENT OF PATIENT CARE PER NURSING PROTOCOL Performed By: #### L 500.4050, L100.0100, L501.5425 #### [facility] [address] [place], [address] CBC W/Diff, Automatedon 05-10 0 Absolute Lymph 1.38 X10 3/uL Normal 0.83-4.51 [facility] Comment on above: Performed By: #### L 500.2500, L100.0100 ####[facility] [address] [place], [address] Absolute Neut 8.7 X10 3/uL High 2.0-7.7 [facility] Comment on above: Performed By: #### L 500.2500, L100.0100 ####[facility] [address] [place], [address] Basophils/100 WBC (Bld) 0.4 % Normal 0-1 [facility] Comment on above: Performed By: #### L 500.2500, L100.0100 ####[facility] [address] [place], [address] Eosinophils/100 WBC (Bld) 2.4 % Normal 0-5 [facility] Comment on above: Performed By: #### L 500.2500, L100.0100 ####[facility] [address] [place], [address] Erythrocyte distribution width (RBC) [Ratio] 15.3 % High 11.6-14.6 [facility] Comment on above: Performed By: #### L 500.2500, L100.0100 ####[facility] [address] [place], [address] Hematocrit (Bld) [Volume fraction] 32.7 % Low 40-54 [facility] Comment on above: Performed By: #### L 500.2500, L100.0100 ####[facility] [address] [place], [address] Hemoglobin (Bld) [Mass/Vol] 10.5 g/dL Low 13.0-16.5 [facility] Comment on above: Performed By: #### L 500.2500, L100.0100 ####[facility] [address] [place], [address] IG% 0.800 Normal 0.0-0.9 [facility] Comment on above: Result Comment: IG% - Immature Granulocytes (promyelocytes, myelocytes and metamyelocytes) > 1% indicates that a LEFT SHIFT is Present. Performed By: #### L 500.2500, L100.0100 ####[facility] [address] [place], [address] Lymphocytes/100 WBC (Bld) 12.3 % Low 19-41 [facility] Comment on above: Performed By: #### L 500.2500, L100.0100 ####[facility] [address] [place], [address] MCH (RBC) [Entitic mass] 28.5 pg Normal 27.0-32.0 [facility] Comment on above: Performed By: #### L 500.2500, L100.0100 ####[facility] [address] [place], [address] MCHC (RBC) [Mass/Vol] 32.1 g/dL Normal 32-36 [facility] Comment on above: Performed By: #### L 500.2500, L100.0100 ####[facility] [address] [place], [address] MCV (RBC) [Entitic vol] 88.6 fL Normal 80-94 [facility] Comment on above: Performed By: #### L 500.2500, L100.0100 ####[facility] [address] [place], [address] Monocytes/100 WBC (Bld) 6.3 % Normal 0-10 [facility] Comment on above: Performed By: #### L 500.2500, L100.0100 ####[facility] [address] [place], [address] Neutrophils/100 WBC (Bld) 77.8 % High 47-70 [facility] Comment on above: Performed By: #### L 500.2500, L100.0100 ####[facility] [address] [place], [address] Nucleated RBC (Bld) [#/Vol] 0 10*3/uL Normal 0-5 [facility] Comment on above: Performed By: #### L 500.2500, L100.0100 ####[facility] [address] [place], [address] Platelet mean volume (Bld) [Entitic vol] 10.8 fL Normal 6.2-12.0 [facility] Comment on above: Performed By: #### L 500.2500, L100.0100 ####[facility] [address] [place], [address] Platelets (Bld) [#/Vol] 186 10*3/uL Normal 150-450 [facility] Comment on above: Performed By: #### L 500.2500, L100.0100 ####[facility] [address] [place], [address] RBC (Bld) [#/Vol] 3.69 10*6/uL Low 4.6-6.2 [facility] Comment on above: Performed By: #### L 500.2500, L100.0100 ####[facility] [address] [place], [address] RDW SD 49.5 fl High 35.1-43.9 [facility] Comment on above: Performed By: #### L 500.2500, L100.0100 ####[facility] [address] [place], [address] WBC (Bld) [#/Vol] 11.2 10*3/uL High 4.4-11.0 [facility] Comment on above: Performed By: #### L 500.2500, L100.0100 ####[facility] [address] [place], [address] CNPNon 05-19-2024 CNPN Normal [facility] Bedside Glucoseon 05-18-2024 FINGERSTICK GLU 149 mg/dL High 74-106 [facility] Comment on above: Result Comment: EARNESTINE LOPEZ OF PATIENT CARE PER NURSING PROTOCOL Performed By: #### L 501.080 ####[facility] [address] [place], [address] FINGERSTICK GLU 180 mg/dL High [address] [place] [address] Comment on above: Result Comment: EARNESTINE GEMENT OF PATIENT CARE PER NURSING PROTOCOL Performed By: #### M 100.2200, L400.2010 #### [facility] [address] [place], [address] Bedside Glucoseon 05-17-2024 FINGERSTICK GLU 191 mg/dL High [address] [place] [address] Comment on above: Result Comment: EARNESTINE GEMENT OF PATIENT CARE PER NURSING PROTOCOL Performed By: #### L 500.4050, L100.0100, L501.5425 #### [facility] [address] [place], [address] FINGERSTICK GLU 143 mg/dL High [address] [place] [address] Comment on above: Result Comment: EARNESTINE GEMENT OF PATIENT CARE PER NURSING PROTOCOL Performed By: #### L 501.080 ####[facility] [address] [place], [address] Bedside Glucoseon 05-16-2024 FINGERSTICK GLU 126 mg/dL High [address] [place] [address] Comment on above: Result Comment: EARNESTINE GEMENT OF PATIENT CARE PER NURSING PROTOCOL Performed By: #### L 500.4050, L100.0100, L501.5425 #### [facility] [address] [place], [address] FINGERSTICK GLU 137 mg/dL High [address] [place] [address] Comment on above: Result Comment: EARNESTINE GEMENT OF PATIENT CARE PER NURSING PROTOCOL Performed By: #### L 500.4050, L100.0100, L501.5425 #### [facility] [address] [place], [address] Bedside Glucoseon 05-15-2024 FINGERSTICK GLU 198 mg/dL High [address] [place] [address] Comment on above: Result Comment: EARNESTINE GEMENT OF PATIENT CARE PER NURSING PROTOCOL Performed By: #### L 501.080 ####[facility] [address] [place], [address] FINGERSTICK GLU 147 mg/dL High 74-106 [facility] Comment on above: Result Comment: EARNESTINE GEMENT OF PATIENT CARE PER NURSING PROTOCOL Performed By: #### L 501.080 ####[facility] [address] [place], [address] Bedside Glucoseon 05-14-2024 FINGERSTICK GLU 139 mg/dL High -106 [facility] Comment on above: Result Comment: EARNESTINE GEMENT OF PATIENT CARE PER NURSING PROTOCOL Performed By: #### L 500.4050, L100.0100, L501.5425 #### [facility] [address] [place], [address] FINGERSTICK GLU 160 mg/dL High 74-106 [facility] Comment on above: Result Comment: EARNESTINE GEMENT OF PATIENT CARE PER NURSING PROTOCOL Performed By: #### M 100.2200, L400.2010 #### [facility] [address] [place], [address] Bedside Glucoseon 05-13-2024 FINGERSTICK GLU 132 mg/dL High 74-106 [facility] Comment on above: Result Comment: EARNESTINE GEMENT OF PATIENT CARE PER NURSING PROTOCOL Performed By: #### L 501.080 ####[facility] [address] [place], [address] FINGERSTICK GLU 123 mg/dL High 74-106 [facility] Comment on above: Result Comment: EARNESTINE GEMENT OF PATIENT CARE PER NURSING PROTOCOL Performed By: #### L 501.080 #### [facility] [address] [place], [address] Basic Metabolic Profile (BMP )on 05-12-2024 BUN/CRE 20.6 RATIO High 10-20 [facility] Comment on above: Performed By: #### L 501.080 #### [facility] [address] [place], [address] CA,Total 9.1 mg/dL Normal 8.5-10.1 [facility] Comment on above: Performed By: #### L 501.080 #### [facility] [address] [place], [address] Chloride [Moles/Vol] 111 mmol/L High 98-107 [facility] Comment on above: Performed By: #### L 501.080 #### [facility] [address] [place], [address] CO2 [Moles/Vol] 24.0 mmol/L Normal 21.0-32.0 [facility] Comment on above: Performed By: #### L 501.080 #### [facility] [address] [place], [address] Creatinine [Mass/Vol] 1.89 mg/dL High 0.70-1.30 [facility] Comment on above: Result Comment: The validity of the calculated GFR GFRAA in patients over 70 years has not been determined. Clinical correlation is essential. Performed By: #### L 501.080 #### [facility] [address] [place], [address] ECRCL 38.65 ml/min Normal [facility] Comment on above: Performed By: #### L 501.080 #### [facility] [address] [place], [address] EST GFR - AA 44 mL/min Low >60 [facility] Comment on above: Result Comment: Afri can Icelandic GFR Calc Performed By: #### L 501.080 #### [facility] [address] [place], [address] GAP 4 Low 5-15 [facility] Comment on above: Performed By: #### L 501.080 #### [facility] [address] [place], [address] GFR/1.73 sq M.predicted among non-blacks MDRD (S/P/Bld) [Vol rate/Area] 36 mL/min/{1.73_m2} Low >60 [facility] Comment on above: Result Comment: Non- GFR Calc Performed By: #### L 501.080 #### [facility] [address] [place], [address] Glucose [Mass/Vol] 167 mg/dL High 74-106 [facility] Comment on above: Result Comment: Fast ing Glucose result greater than or equal to 126 mg/dL suggests DIABETES MELLITUS per A.D.A. criteria. Performed By: #### L 501.080 #### [facility] [address] [place], [address] Potassium [Moles/Vol] 4.1 mmol/L Normal 3.5-5.1 [facility] Comment on above: Performed By: #### L 501.080 #### [facility] [address] [place], [address] Sodium [Moles/Vol] 139 mmol/L Normal 136-145 [facility] Comment on above: Performed By: #### L 501.080 #### [facility] [address] [place], [address] Urea nitrogen [Mass/Vol] 39 mg/dL High 7-18 [facility] Comment on above: Performed By: #### L 501.080 #### [facility] [address] [place], [address] Bedside Glucoseon 05-12-2024 FINGERSTICK GLU 153 mg/dL High 74-106 [facility] Comment on above: Result Comment: EARNESTINE LOPEZ OF PATIENT CARE PER NURSING PROTOCOL Performed By: #### L 501.080 ####[facility] [address] [place], [address] FINGERSTICK GLU 139 mg/dL High 74-106 [facility] Comment on above: Result Comment: EARNESTINE LOPEZ OF PATIENT CARE PER NURSING PROTOCOL Performed By: #### L 501.080 #### [facility] [address] [place], [address] CBC W/Diff, Automatedon 01-0 3-2024 Absolute Lymph 1.23 X10 3/uL Normal 0.83-4.51 [facility] Comment on above: Performed By: #### L 501.080 #### [facility] [address] [place], [address] Absolute Neut 6.4 X10 3/uL Normal 2.0-7.7 [facility] Comment on above: Performed By: #### L 501.080 #### [facility] [address] [place], [address] Basophils/100 WBC (Bld) 0.6 % Normal 0-1 [facility] Comment on above: Performed By: #### L 501.080 #### [facility] [address] [place], [address] Eosinophils/100 WBC (Bld) 3.7 % Normal 0-5 [facility] Comment on above: Performed By: #### L 501.080 #### [facility] [address] [place], [address] Erythrocyte distribution width (RBC) [Ratio] 15.2 % High 11.6-14.6 [facility] Comment on above: Performed By: #### L 501.080 #### [facility] [address] [place], [address] Hematocrit (Bld) [Volume fraction] 32.9 % Low 40-54 [facility] Comment on above: Performed By: #### L 501.080 #### [facility] [address] [place], [address] Hemoglobin (Bld) [Mass/Vol] 10.7 g/dL Low 13.0-16.5 [facility] Comment on above: Performed By: #### L 501.080 #### [facility] [address] [place], [address] IG% 0.700 Normal 0.0-0.9 [facility] Comment on above: Result Comment: IG% - Immature Granulocytes (promyelocytes, myelocytes and metamyelocytes) > 1% indicates that a LEFT SHIFT is Present. Performed By: #### L 501.080 #### [facility] [address] [place], [address] Lymphocytes/100 WBC (Bld) 14.0 % Low 19-41 [facility] Comment on above: Performed By: #### L 501.080 #### [facility] [address] [place], [address] MCH (RBC) [Entitic mass] 28.6 pg Normal 27.0-32.0 [facility] Comment on above: Performed By: #### L 501.080 #### [facility] [address] [place], [address] MCHC (RBC) [Mass/Vol] 32.5 g/dL Normal 32-36 [facility] Comment on above: Performed By: #### L 501.080 #### [facility] [address] [place], [address] MCV (RBC) [Entitic vol] 88.0 fL Normal 80-94 [facility] Comment on above: Performed By: #### L 501.080 #### [facility] [address] [place], [address] Monocytes/100 WBC (Bld) 8.6 % Normal 0-10 [facility] Comment on above: Performed By: #### L 501.080 #### [facility] [address] [place], [address] Neutrophils/100 WBC (Bld) 72.4 % High 47-70 [facility] Comment on above: Performed By: #### L 501.080 #### [facility] [address] [place], [address] Nucleated RBC (Bld) [#/Vol] 0 10*3/uL Normal 0-5 [facility] Comment on above: Performed By: #### L 501.080 #### [facility] [address] [place], [address] Platelet mean volume (Bld) [Entitic vol] 10.0 fL Normal 6.2-12.0 [facility] Comment on above: Performed By: #### L 501.080 #### [facility] [address] [place], [address] Platelets (Bld) [#/Vol] 208 10*3/uL Normal 150-450 [facility] Comment on above: Performed By: #### L 501.080 #### [facility] [address] [place], [address] RBC (Bld) [#/Vol] 3.74 10*6/uL Low 4.6-6.2 [facility] Comment on above: Performed By: #### L 501.080 #### [facility] [address] [place], [address] RDW SD 49.6 fl High 35.1-43.9 [facility] Comment on above: Performed By: #### L 501.080 #### [facility] [address] [place], [address] WBC (Bld) [#/Vol] 8.8 10*3/uL Normal 4.4-11.0 [facility] Comment on above: Performed By: #### L 501.080 #### [facility] [address] [place], [address] Bedside Glucoseon 05-11-2024 FINGERSTICK GLU 147 mg/dL High -[address] [place] [address] Comment on above: Result Comment: EARNESTINE GEMENT OF PATIENT CARE PER NURSING PROTOCOL Performed By: #### L 501.080 ####[facility] [address] [place], [address] FINGERSTICK GLU 155 mg/dL High [address] [place] [address] Comment on above: Result Comment: EARNESTINE GEMENT OF PATIENT CARE PER NURSING PROTOCOL Performed By: #### L 501.080 #### [facility] [address] [place], [address] Bedside Glucoseon 2024 FINGERSTICK GLU 149 mg/dL High -106 [facility] Comment on above: Result Comment: EARNESTINE GEMENT OF PATIENT CARE PER NURSING PROTOCOL Performed By: #### L 500.4050, L100.0100, L501.5425 #### [facility] [address] [place], [address] FINGERSTICK GLU 156 mg/dL [address] Comment on above: Result Comment: EARNESTINE GEMENT OF PATIENT CARE PER NURSING PROTOCOL Performed By: #### L 501.080 #### [facility] [address] [place], [address] Bedside Glucoseon 05-09-2024 FINGERSTICK GLU 158 mg/dL [place] [address] [place] [address] Comment on above: Result Comment: EARNESTINE GEMENT OF PATIENT CARE PER NURSING PROTOCOL Performed By: #### L 500.4050, L100.0100, L501.5425 #### [facility] [address] [place], [address] FINGERSTICK GLU 139 mg/dL High -106 [facility] Comment on above: Result Comment: EARNESTINE GEMENT OF PATIENT CARE PER NURSING PROTOCOL Performed By: #### L 501.080 #### [facility] [address] [place], [address] Bedside Glucoseon 05-08-2024 FINGERSTICK GLU 159 mg/dL High [address] [place] [address] Comment on above: Result Comment: EARNESTINE GEMENT OF PATIENT CARE PER NURSING PROTOCOL Performed By: #### L 501.080 #### [facility] [address] [facility] [address] FINGERSTICK GLU 143 mg/dL High [facility]106 [facility] Comment on above: Result Comment: EARNESTINE GEMENT OF PATIENT CARE PER NURSING PROTOCOL Performed By: #### L 501.080 ####[facility] [address] [place], [address] Bedside Glucoseon 05-07-2024 FINGERSTICK GLU 152 mg/dL High -[address] [place] [address] Comment on above: Result Comment: EARNESTINE GEMENT OF PATIENT CARE PER NURSING PROTOCOL Performed By: #### L 500.4050, L100.0100, L501.5425 #### [facility] [address] [place], [address] FINGERSTICK GLU 136 mg/dL High [address] [place] [address] Comment on above: Result Comment: EARNESTINE GEMENT OF PATIENT CARE PER NURSING PROTOCOL Performed By: #### L 501.080 #### [facility] [address] [place], [address] Chest PA and Lateralon 05-07 Chest PA and Lateral [facility] [address] [place] [address] Chest PA and Lateral MR#: [id number] Acct: [id number] Name: AXEL SERRANO Rep #: [id number] : 1940 M 83 From: Aftab mcdermott MD PCP: Dr. Arsh Polk MD Status: ADM IN Study: Chest PA and Lateral Date of Exam: 05/07/24 Exam# [id number] Ordering Dr: Bertrand Romano MD [id number] INDICATION: Cough/wheezing EXAMINATION/TECHNIQUE: X-RAY - XR Chest 2 Views COMPARISON: 04/24/2024. FINDINGS: The lungs are clear. Tortuous and calcified thoracic aorta. The heart is mildly enlarged. No pleural effusion or pneumothorax. Degenerative changes of the thoracic spine and shoulders. RAD/Chest PA and Lateral IMPRESSION: No acute radiographic abnormalities. Electronically Signed: Aftab Richards MD at 21:21 EST , CC: Dr. Bertrand Romano MD; Dr. Arsh Polk MD [place]: Signed Normal [facility] Bedside Glucoseon 05-06-2024 FINGERSTICK GLU 133 mg/dL High 74-106 [facility] Comment on above: Result Comment: EARNESTINE GEMENT OF PATIENT CARE PER NURSING PROTOCOL Performed By: #### L 501.080 #### [facility] [address] [place], [address] FINGERSTICK GLU 128 mg/dL High 74-106 [facility] Comment on above: Result Comment: EARNESTINE GEMENT OF PATIENT CARE PER NURSING PROTOCOL Performed By: #### L 500.4050, L100.0100, L501.5425 #### [facility] [address] [place], [address] Basic Metabolic Profile (BMP )on 05-05-2024 BUN/CRE 16.8 RATIO Normal 10-20 [facility] Comment on above: Performed By: #### L 500.2500, L100.0100 ####[facility] [address] [place], [address] CA,Total 9.1 mg/dL Normal 8.5-10.1 [facility] Comment on above: Performed By: #### L 500.2500, L100.0100 ####[facility] [address] [place], [address] Chloride [Moles/Vol] 110 mmol/L High 98-107 [facility] Comment on above: Performed By: #### L 500.2500, L100.0100 ####[facility] [address] [place], [address] CO2 [Moles/Vol] 21.0 mmol/L Normal 21.0-32.0 [facility] Comment on above: Performed By: #### L 500.2500, L100.0100 ####[facility] [address] [place], [address] Creatinine [Mass/Vol] 1.96 mg/dL High 0.70-1.30 [facility] Comment on above: Result Comment: The validity of the calculated GFR GFRAA in patients over 70 years has not been determined. Clinical correlation is essential. Performed By: #### L 500.2500, L100.0100 ####[facility] [address] [place], [address] ECRCL 38.58 ml/min Normal [facility] Comment on above: Performed By: #### L 500.2500, L100.0100 ####[facility] [address] [place], [address] EST GFR - AA 42 mL/min Low >60 [facility] Comment on above: Result Comment: Afri can Icelandic GFR Calc Performed By: #### L 500.2500, L100.0100 ####[facility] [address] [place], [address] GAP 8 Normal 5-15 [facility] Comment on above: Performed By: #### L 500.2500, L100.0100 ####[facility] [address] [place], [address] GFR/1.73 sq M.predicted among non-blacks MDRD (S/P/Bld) [Vol rate/Area] 35 mL/min/{1.73_m2} Low >60 [facility] Comment on above: Result Comment: Non- GFR Calc Performed By: #### L 500.2500, L100.0100 ####[facility] [address] [place], [address] Glucose [Mass/Vol] 156 mg/dL High 74-106 [facility] Comment on above: Result Comment: Fast ing Glucose result greater than or equal to 126 mg/dL suggests DIABETES MELLITUS per A.D.A. criteria. Performed By: #### L 500.2500, L100.0100 ####[facility] [address] [place], [address] Potassium [Moles/Vol] 4.2 mmol/L Normal 3.5-5.1 [facility] Comment on above: Performed By: #### L 500.2500, L100.0100 ####[facility] [address] [place], [address] Sodium [Moles/Vol] 139 mmol/L Normal 136-145 [facility] Comment on above: Performed By: #### L 500.2500, L100.0100 ####[facility] [address] [place], [address] Urea nitrogen [Mass/Vol] 33 mg/dL High 7-18 [facility] Comment on above: Performed By: #### L 500.2500, L100.0100 ####[facility] [address] [place], [address] Bedside Glucoseon 05-05-2024 FINGERSTICK GLU 171 mg/dL High 74-106 [facility] Comment on above: Result Comment: EARNESTINE LOPEZ OF PATIENT CARE PER NURSING PROTOCOL Performed By: #### L 501.080 ####[facility] [address] [place], [address] FINGERSTICK GLU 148 mg/dL High 74-106 [facility] Comment on above: Result Comment: EARNESTINE LOPEZ OF PATIENT CARE PER NURSING PROTOCOL Performed By: #### L 501.080 ####[facility] [address] [place], [address] CBC W/Diff, Automatedon 04-10 Absolute Lymph 1.29 X10 3/uL Normal 0.83-4.51 [facility] Comment on above: Performed By: #### L 500.2500, L100.0100 ####[facility] [address] [place], [address] Absolute Neut 6.2 X10 3/uL Normal 2.0-7.7 [facility] Comment on above: Performed By: #### L 500.2500, L100.0100 ####[facility] [address] [place], [address] Basophils/100 WBC (Bld) 0.5 % Normal 0-1 [facility] Comment on above: Performed By: #### L 500.2500, L100.0100 ####[facility] [address] [place], [address] Eosinophils/100 WBC (Bld) 3.6 % Normal 0-5 [facility] Comment on above: Performed By: #### L 500.2500, L100.0100 ####[facility] [address] [place], [address] Erythrocyte distribution width (RBC) [Ratio] 15.4 % High 11.6-14.6 [facility] Comment on above: Performed By: #### L 500.2500, L100.0100 ####[facility] [address] [place], [address] Hematocrit (Bld) [Volume fraction] 33.6 % Low 40-54 [facility] Comment on above: Performed By: #### L 500.2500, L100.0100 ####[facility] [address] [place], [address] Hemoglobin (Bld) [Mass/Vol] 11.1 g/dL Low 13.0-16.5 [facility] Comment on above: Performed By: #### L 500.2500, L100.0100 ####[facility] [address] [place], [address] IG% 0.700 Normal 0.0-0.9 [facility] Comment on above: Result Comment: IG% - Immature Granulocytes (promyelocytes, myelocytes and metamyelocytes) > 1% indicates that a LEFT SHIFT is Present. Performed By: #### L 500.2500, L100.0100 ####[facility] [address] [place], [address] Lymphocytes/100 WBC (Bld) 14.8 % Low 19-41 [facility] Comment on above: Performed By: #### L 500.2500, L100.0100 ####[facility] [address] [place], [address] MCH (RBC) [Entitic mass] 29.1 pg Normal 27.0-32.0 [facility] Comment on above: Performed By: #### L 500.2500, L100.0100 ####[facility] [address] [place], [address] MCHC (RBC) [Mass/Vol] 33.0 g/dL Normal 32-36 [facility] Comment on above: Performed By: #### L 500.2500, L100.0100 ####[facility] [address] [place], [address] MCV (RBC) [Entitic vol] 88.0 fL Normal 80-94 [facility] Comment on above: Performed By: #### L 500.2500, L100.0100 ####[facility] [address] [place], [address] Monocytes/100 WBC (Bld) 9.2 % Normal 0-10 [facility] Comment on above: Performed By: #### L 500.2500, L100.0100 ####[facility] [address] [place], [address] Neutrophils/100 WBC (Bld) 71.2 % High 47-70 [facility] Comment on above: Performed By: #### L 500.2500, L100.0100 ####[facility] [address] [place], [address] Nucleated RBC (Bld) [#/Vol] 0 10*3/uL Normal 0-5 [facility] Comment on above: Performed By: #### L 500.2500, L100.0100 ####[facility] [address] [place], [address] Platelet mean volume (Bld) [Entitic vol] 9.9 fL Normal 6.2-12.0 [facility] Comment on above: Performed By: #### L 500.2500, L100.0100 ####[facility] [address] [place], [address] Platelets (Bld) [#/Vol] 207 10*3/uL Normal 150-450 [facility] Comment on above: Performed By: #### L 500.2500, L100.0100 ####[facility] [address] [place], [address] RBC (Bld) [#/Vol] 3.82 10*6/uL Low 4.6-6.2 [facility] Comment on above: Performed By: #### L 500.2500, L100.0100 ####[facility] [address] [place], [address] RDW SD 49.6 fl High 35.1-43.9 [facility] Comment on above: Performed By: #### L 500.2500, L100.0100 ####[facility] [address] [place], [address] WBC (Bld) [#/Vol] 8.7 10*3/uL Normal 4.4-11.0 [facility] Comment on above: Performed By: #### L 500.2500, L100.0100 ####[facility] [address] [place], [address] Bedside Glucoseon 05-04-2024 FINGERSTICK GLU 124 mg/dL High 74-106 [facility] Comment on above: Result Comment: EARNESTINE GEMENT OF PATIENT CARE PER NURSING PROTOCOL Performed By: #### L 501.080 ####[facility] [address] [place], [address] FINGERSTICK GLU 149 mg/dL High 74-106 [facility] Comment on above: Result Comment: EARNESTINE GEMENT OF PATIENT CARE PER NURSING PROTOCOL Performed By: #### L 501.080 #### [facility] [address] [place], [address] Urinalysis, Completeon 05-04 CAST,HYALINE 0-5 SEEN Normal 0-5 [facility] Comment on above: Order Comment: 1 Y Performed By: #### L 500.4050, L100.0100, L501.5425 #### [facility] [address] [place], [address] BACTERIA 0 SEEN Normal None Seen [facility] Comment on above: Order Comment: 1 Y Performed By: #### L 500.4050, L100.0100, L501.5425 #### [facility] [address] [place], [address] EPI,SQUAMOUS 0 SEEN Normal 0-5 [facility] Comment on above: Order Comment: 1 Y Performed By: #### L 500.4050, L100.0100, L501.5425 #### [facility] [address] [place], [address] Mucus Ql (Urine sed) 0 SEEN Normal [facility] Comment on above: Order Comment: 1 Y Performed By: #### L 500.4050, L100.0100, L501.5425 #### [facility] [address] [place], [address] RBC 0 SEEN Normal 0-5 [facility] Comment on above: Order Comment: 1 Y Performed By: #### L 500.4050, L100.0100, L501.5425 #### [facility] [address] [place], [address] WBC 0 SEEN Normal 0-5 [facility] Comment on above: Order Comment: 1 Y Performed By: #### L 500.4050, L100.0100, L501.5425 #### [facility] [address] [place], [address] Bedside Glucoseon 05-03-2024 FINGERSTICK GLU 122 mg/dL High 74-106 [facility] Comment on above: Result Comment: EARNESTINE GEMENT OF PATIENT CARE PER NURSING PROTOCOL Performed By: #### L 500.4050, L100.0100, L501.5425 #### [facility] [address] [place], [address] FINGERSTICK GLU 136 mg/dL High 74-106 [facility] Comment on above: Result Comment: EARNESTINE GEMENT OF PATIENT CARE PER NURSING PROTOCOL Performed By: #### L 500.4050, L100.0100, L501.5425 #### [facility] [address] [place], [address] Bedside Glucoseon 05-02-2024 FINGERSTICK GLU 153 mg/dL High 74-106 [facility] Comment on above: Result Comment: EARNESTINE GEMENT OF PATIENT CARE PER NURSING PROTOCOL Performed By: #### L 500.4050, L100.0100, L501.5425 #### [facility] [address] [place], [address] FINGERSTICK GLU 143 mg/dL High [address] [place] [address] Comment on above: Result Comment: EARNESTINE GEMENT OF PATIENT CARE PER NURSING PROTOCOL Performed By: #### L 500.4050, L100.0100, L501.5425 #### [facility] [address] [place], [address] Bedside Glucoseon 05-01-2024 FINGERSTICK GLU 140 mg/dL High [address] [place] [address] Comment on above: Result Comment: EARNESTINE GEMENT OF PATIENT CARE PER NURSING PROTOCOL Performed By: #### M 100.2200, L400.2010 #### [facility] [address] [place], [address] FINGERSTICK GLU 155 mg/dL High [address] [place] [address] Comment on above: Result Comment: EARNESTINE GEMENT OF PATIENT CARE PER NURSING PROTOCOL Performed By: #### M 100.2200, L400.2010 #### [facility] [address] [place], [address] FINGERSTICK GLU 132 mg/dL High [address] [place] [address] Comment on above: Result Comment: EARNESTINE GEMENT OF PATIENT CARE PER NURSING PROTOCOL Performed By: #### M 100.2200, L400.2010 #### [facility] [address] [place], [address] COVID 19 AG RAPID (FRANKY Escobar)on 05-01-2024 SARS-CoV-2 (COVID-19) RNA ARIANA+probe Ql (Unsp spec) SARS-CoV-2 (COVID 19) Negative RAPID METHOD BinaxNow COVID19 Ag Card Normal [facility] Comment on above: Performed By: #### M 100.505 ####[facility] [address] [place], [address] Lipid Profileon 05-01-2024 Cholesterol [Mass/Vol] 83 mg/dL Normal 200 [facility] Comment on above: Result Comment: <200 mg/dL Desirable 200-240 mg/dL Borderline >240 mg/dL High Risk Performed By: #### M 100.220, L4 #### [facility] [address] [place], [address] Cholesterol in HDL [Mass/Vol] 44 mg/dL Normal [facility] Comment on above: Result Comment: The drugs N-Acetylcysteine and Metamizole may falsely depress this assay. Reference Range HDL <40 mg/dL Low HDL Cholesterol HDL >or= 60 mg/dL High HDL Cholesterol Performed By: #### M 100.2199, L4 #### [facility] [address] [place], [address] Cholesterol in LDL [Mass/Vol] 18 mg/dL Normal 0-130 [facility] Comment on above: Performed By: #### M 100.2199, L4 #### [facility] [address] [place], [address] Cholesterol in VLDL [Mass/Vol] 21 mg/dL Normal 5-40 [facility] Comment on above: Performed By: #### M .2199, L4 #### [facility] [address] [place], [address] Triglyceride [Mass/Vol] 104 mg/dL Normal [facility] Comment on above: Result Comment: The drugs N-Acetylcysteine and Metamizole may falsely depress this assay. Serum Triglycerides Reference Interval Normal <150 mg/dL Borderline high 150 - 199 mg/dL High 200 - 499 mg/dL Very High > or = 500 mg/dL Performed By: #### M 100.2199, L4 #### [facility] [address] [place], [address] Vitamin B12on 05-01-2024 Cobalamin (Vitamin B12) [Mass/Vol] 1076 pg/mL High 211-911 [facility] Comment on above: Performed By: #### M 100.2200, L400.2010 #### [facility] [address] [place], [address] Vitamin D,25 Hydroxyon 05-01 Vitamin D 25-OH 53.4 ng/mL Normal [facility] Comment on above: Result Comment: Abby min D 25(OH) Status Range Deficiency <20 ng/mL (50nmol/L) Insufficiency 20 - 30 ng/mL (50 - 75 nmol/L) Sufficiency 30 - 100 ng/mL (75 - 250 nmol/L) Toxicity >100 ng/mL (>250 nmol/L) Performed By: #### M 100.2200, L4.2010 #### [facility] [address] [place], [address] Bedside Glucoseon 4 FINGERSTICK GLU 133 mg/dL High 74-106 [facility] Comment on above: Result Comment: EARNESTINE GEMENT OF PATIENT CARE PER NURSING PROTOCOL Performed By: #### L 501.080 #### [facility] [address] [place], [address] FINGERSTICK GLU 137 mg/dL High 74-106 [facility] Comment on above: Result Comment: EARNESTINE GEMENT OF PATIENT CARE PER NURSING PROTOCOL Performed By: #### L 501.080 #### [facility] [address] [place], [address] Bedside Glucoseon 4 FINGERSTICK GLU 143 mg/dL High 74-106 [facility] Comment on above: Result Comment: EARNESTINE GEMENT OF PATIENT CARE PER NURSING PROTOCOL Performed By: #### L 501.080 ####[facility] [address] [place], [address] FINGERSTICK GLU 137 mg/dL High 74-106 [facility] Comment on above: Result Comment: EARNESTINE LOPEZ OF PATIENT CARE PER NURSING PROTOCOL Performed By: #### L 500.4050, L100.0100, L501.5425 #### [facility] [address] [place], [address] Basic Metabolic Profile (BMP )on 04-28-2024 BUN Normal -18 [facility] Comment on above: Result Comment: Canc elled via OM: Order cancelled - Patient discharged Performed By: #### M 100.2200, L4.2010 #### [facility] [address] [place], [address] BUN/CRE Normal - [facility] Comment on above: Result Comment: Canc elled via OM: Order cancelled - Patient discharged Performed By: #### M 100.2199, L4 #### [facility] [address] [place], [address] CA,Total Normal 8.5-10.1 [facility] Comment on above: Result Comment: Canc elled via OM: Order cancelled - Patient discharged Performed By: #### M 100.2199, L4 #### [facility] [address] [place], [address] CL Normal 98-107 [facility] Comment on above: Result Comment: Canc elled via OM: Order cancelled - Patient discharged Performed By: #### M 100.2199, L4 #### [facility] [address] [place], [address] CO2 Normal 21.0-32.0 [facility] Comment on above: Result Comment: Canc elled via OM: Order cancelled - Patient discharged Performed By: #### M 100.220, L400 #### [facility] [address] [place], [address] CREAT,SERUM Normal 0.70-1.30 [facility] Comment on above: Result Comment: Canc elled via OM: Order cancelled - Patient discharged Performed By: #### M .2199, L4.2010 #### [facility] [address] [place], [address] EST GFR Normal >60 [facility] Comment on above: Result Comment: Canc elled via OM: Order cancelled - Patient discharged Performed By: #### M .2199, L4.2010 #### [facility] [address] [place], [address] EST GFR - AA Normal >60 [facility] Comment on above: Result Comment: Canc elled via OM: Order cancelled - Patient discharged Performed By: #### M , L4 #### [facility] [address] [place], [address] GAP Normal 5-15 [facility] Comment on above: Result Comment: Canc elled via OM: Order cancelled - Patient discharged Performed By: #### M , L4.2010 #### [facility] [address] [place], [address] GLU Normal 74-106 [facility] Comment on above: Result Comment: Canc elled via OM: Order cancelled - Patient discharged Performed By: #### M , L4.2010 #### [facility] [address] [place], [address] Potassium Normal 3.5-5.1 [facility] Comment on above: Result Comment: Canc elled via OM: Order cancelled - Patient discharged Performed By: #### M , L4 #### [facility] [address] [place], [address] Basic Metabolic Profile (BMP) Normal 136-145 [facility] Comment on above: Result Comment: Canc elled via OM: Order cancelled - Patient discharged Performed By: #### M 100.2200, L400.2010 #### [facility] [address] [place], [address] BUN/CRE 14.7 RATIO Normal 10-20 [facility] Comment on above: Performed By: #### L 501.080 #### [facility] [address] [place], [address] CA,Total 8.8 mg/dL Normal 8.5-10.1 [facility] Comment on above: Performed By: #### L 501.080 #### [facility] [address] [place], [address] Chloride [Moles/Vol] 109 mmol/L High 98-107 [facility] Comment on above: Performed By: #### L 501.080 #### [facility] [address] [place], [address] CO2 [Moles/Vol] 25.0 mmol/L Normal 21.0-32.0 [facility] Comment on above: Performed By: #### L 501.080 #### [facility] [address] [place], [address] Creatinine [Mass/Vol] 1.77 mg/dL High 0.70-1.30 [facility] Comment on above: Result Comment: The validity of the calculated GFR GFRAA in patients over 70 years has not been determined. Clinical correlation is essential. Performed By: #### L 501.080 #### [facility] [address] [place], [address] ECRCL 42.79 ml/min Normal [facility] Comment on above: Performed By: #### L 501.080 #### [facility] [address] [place], [address] EST GFR - AA 47 mL/min Low >60 [facility] Comment on above: Result Comment: Afri can Icelandic GFR Calc Performed By: #### L 501.080 #### [facility] [address] [place], [address] GAP 5 Normal 5-15 [facility] Comment on above: Performed By: #### L 501.080 #### [facility] [address] [place], [address] GFR/1.73 sq M.predicted among non-blacks MDRD (S/P/Bld) [Vol rate/Area] 39 mL/min/{1.73_m2} Low >60 [facility] Comment on above: Result Comment: Non- GFR Calc Performed By: #### L 501.080 #### [facility] [address] [place], [address] Glucose [Mass/Vol] 146 mg/dL High 74-106 [facility] Comment on above: Result Comment: Fast ing Glucose result greater than or equal to 126 mg/dL suggests DIABETES MELLITUS per A.D.A. criteria. Performed By: #### L 501.080 #### [facility] [address] [place], [address] Potassium [Moles/Vol] 4.0 mmol/L Normal 3.5-5.1 [facility] Comment on above: Performed By: #### L 501.080 #### [facility] [address] [place], [address] Sodium [Moles/Vol] 138 mmol/L Normal 136-145 [facility] Comment on above: Performed By: #### L 501.080 #### [facility] [address] [place], [address] Urea nitrogen [Mass/Vol] 26 mg/dL High 7-18 [facility] Comment on above: Performed By: #### L 501.080 #### [facility] [address] [place], [address] Bedside Glucoseon 04-28-2024 FINGERSTICK GLU 140 mg/dL High 74-106 [facility] Comment on above: Result Comment: EARNESTINE GEMENT OF PATIENT CARE PER NURSING PROTOCOL Performed By: #### L 500.4050, L100.0100, L501.5425 #### [facility] [address] [place], [address] FINGERSTICK GLU 149 mg/dL High 74-106 [facility] Comment on above: Result Comment: EARNESTINE GEMENT OF PATIENT CARE PER NURSING PROTOCOL Performed By: #### L 501.080 ####[facility] [address] [place], [address] CBC W/Diff, Automatedon - 0-2023 Absolute Lymph 1.40 X10 3/uL Normal 0.83-4.51 [facility] Comment on above: Performed By: #### L 501.080 #### [facility] [address] [place], [address] Absolute Neut 6.0 X10 3/uL Normal 2.0-7.7 [facility] Comment on above: Performed By: #### L 501.080 #### [facility] [address] [place], [address] Basophils/100 WBC (Bld) 0.5 % Normal 0-1 [facility] Comment on above: Performed By: #### L 501.080 #### [facility] [address] [place], [address] Eosinophils/100 WBC (Bld) 4.9 % Normal 0-5 [facility] Comment on above: Performed By: #### L 501.080 #### [facility] [address] [place], [address] Erythrocyte distribution width (RBC) [Ratio] 15.8 % High 11.6-14.6 [facility] Comment on above: Performed By: #### L 501.080 #### [facility] [address] [place], [address] Hematocrit (Bld) [Volume fraction] 31.3 % Low 40-54 [facility] Comment on above: Performed By: #### L 501.080 #### [facility] [address] [place], [address] Hemoglobin (Bld) [Mass/Vol] 10.2 g/dL Low 13.0-16.5 [facility] Comment on above: Performed By: #### L 501.080 #### [facility] [address] [place], [address] IG% 0.700 Normal 0.0-0.9 [facility] Comment on above: Result Comment: IG% - Immature Granulocytes (promyelocytes, myelocytes and metamyelocytes) > 1% indicates that a LEFT SHIFT is Present. Performed By: #### L 501.080 #### [facility] [address] [place], [address] Lymphocytes/100 WBC (Bld) 16.0 % Low 19-41 [facility] Comment on above: Performed By: #### L 501.080 #### [facility] [address] [place], [address] MCH (RBC) [Entitic mass] 29.1 pg Normal 27.0-32.0 [facility] Comment on above: Performed By: #### L 501.080 #### [facility] [address] [place], [address] MCHC (RBC) [Mass/Vol] 32.6 g/dL Normal 32-36 [facility] Comment on above: Performed By: #### L 501.080 #### [facility] [address] [place], [address] MCV (RBC) [Entitic vol] 89.4 fL Normal 80-94 [facility] Comment on above: Performed By: #### L 501.080 #### [facility] [address] [place], [address] Monocytes/100 WBC (Bld) 9.6 % Normal 0-10 [facility] Comment on above: Performed By: #### L 501.080 #### [facility] [address] [place], [address] Neutrophils/100 WBC (Bld) 68.3 % Normal 47-70 [facility] Comment on above: Performed By: #### L 501.080 #### [facility] [address] [place], [address] Nucleated RBC (Bld) [#/Vol] 0 10*3/uL Normal 0-5 [facility] Comment on above: Performed By: #### L 501.080 #### [facility] [address] [place], [address] Platelet mean volume (Bld) [Entitic vol] 9.6 fL Normal 6.2-12.0 [facility] Comment on above: Performed By: #### L 501.080 #### [facility] [address] [place], [address] Platelets (Bld) [#/Vol] 218 10*3/uL Normal 150-450 [facility] Comment on above: Performed By: #### L 501.080 #### [facility] [address] [place], [address] RBC (Bld) [#/Vol] 3.50 10*6/uL Low 4.6-6.2 [facility] Comment on above: Performed By: #### L 501.080 #### [facility] [address] [place], [address] RDW SD 51.0 fl High 35.1-43.9 [facility] Comment on above: Performed By: #### L 501.080 #### [facility] [address] [place], [address] WBC (Bld) [#/Vol] 8.7 10*3/uL Normal 4.4-11.0 [facility] Comment on above: Performed By: #### L 501.080 #### [facility] [address] [place], [address] Basic Metabolic Profile (BMP )on 04-27-2024 BUN/CRE 13.9 RATIO Normal 10-20 [facility] Comment on above: Performed By: #### L 501.080 #### [facility] [address] [place], [address] CA,Total 8.9 mg/dL Normal 8.5-10.1 [facility] Comment on above: Performed By: #### L 501.080 #### [facility] [address] [place], [address] Chloride [Moles/Vol] 111 mmol/L High 98-107 [facility] Comment on above: Performed By: #### L 501.080 #### [facility] [address] [place], [address] CO2 [Moles/Vol] 23.0 mmol/L Normal 21.0-32.0 [facility] Comment on above: Performed By: #### L 501.080 #### [facility] [address] [place], [address] Creatinine [Mass/Vol] 1.87 mg/dL High 0.70-1.30 [facility] Comment on above: Result Comment: The validity of the calculated GFR GFRAA in patients over 70 years has not been determined. Clinical correlation is essential. Performed By: #### L 501.080 #### [facility] [address] [place], [address] ECRCL 39.02 ml/min Normal [facility] Comment on above: Performed By: #### L 501.080 #### [facility] [address] [place], [address] EST GFR - AA 45 mL/min Low >60 [facility] Comment on above: Result Comment: Afri can Icelandic GFR Calc Performed By: #### L 501.080 #### [facility] [address] [place], [address] GAP 5 Normal 5-15 [facility] Comment on above: Performed By: #### L 501.080 #### [facility] [address] [place], [address] GFR/1.73 sq M.predicted among non-blacks MDRD (S/P/Bld) [Vol rate/Area] 37 mL/min/{1.73_m2} Low >60 [facility] Comment on above: Result Comment: Non- GFR Calc Performed By: #### L 501.080 #### [facility] [address] [place], [address] Glucose [Mass/Vol] 152 mg/dL High 74-106 [facility] Comment on above: Result Comment: Fast ing Glucose result greater than or equal to 126 mg/dL suggests DIABETES MELLITUS per A.D.A. criteria. Performed By: #### L 501.080 #### [facility] [address] [place], [address] Potassium [Moles/Vol] 4.3 mmol/L Normal 3.5-5.1 [facility] Comment on above: Performed By: #### L 501.080 #### [facility] [address] [place], [address] Sodium [Moles/Vol] 138 mmol/L Normal 136-145 [facility] Comment on above: Performed By: #### L 501.080 #### [facility] [address] [place], [address] Urea nitrogen [Mass/Vol] 26 mg/dL High 7-18 [facility] Comment on above: Performed By: #### L 501.080 #### [facility] [address] [place], [address] Bedside Glucoseon 04-27-2024 FINGERSTICK GLU 198 mg/dL High 74-106 [facility] Comment on above: Result Comment: EARNESTINE GEMENT OF PATIENT CARE PER NURSING PROTOCOL Performed By: #### L 501.080 ####[facility] [address] [place], [address] FINGERSTICK GLU 150 mg/dL High 74-106 [facility] Comment on above: Result Comment: EARNESTINE GEMENT OF PATIENT CARE PER NURSING PROTOCOL Performed By: #### L 501.080 #### [facility] [address] [place], [address] CBC-Complete Blood Cnt No Di ffon 04-27-2024 Erythrocyte distribution width (RBC) [Ratio] 15.6 % High 11.6-14.6 [facility] Comment on above: Performed By: #### L 500.4050, L100.0100, L501.5425 #### [facility] [address] [place], [address] Hematocrit (Bld) [Volume fraction] 31.1 % Low 40-54 [facility] Comment on above: Performed By: #### L 500.4050, L100.0100, L501.5425 #### [facility] [address] [place], [address] Hemoglobin (Bld) [Mass/Vol] 9.7 g/dL Low 13.0-16.5 [facility] Comment on above: Performed By: #### L 500.4050, L100.0100, L501.5425 #### [facility] [address] [place], [address] MCH (RBC) [Entitic mass] 28.2 pg Normal 27.0-32.0 [facility] Comment on above: Performed By: #### L 500.4050, L100.0100, L501.5425 #### [facility] [address] [place], [address] MCHC (RBC) [Mass/Vol] 31.2 g/dL Low 32-36 [facility] Comment on above: Performed By: #### L 500.4050, L100.0100, L501.5425 #### [facility] [address] [place], [address] MCV (RBC) [Entitic vol] 90.4 fL Normal 80-94 [facility] Comment on above: Performed By: #### L 500.4050, L100.0100, L501.5425 #### [facility] [address] [place], [address] Platelet mean volume (Bld) [Entitic vol] 9.8 fL Normal 6.2-12.0 [facility] Comment on above: Performed By: #### L 500.4050, L100.0100, L501.5425 #### [facility] [address] [place], [address] Platelets (Bld) [#/Vol] 209 10*3/uL Normal 150-450 [facility] Comment on above: Performed By: #### L 500.4050, L100.0100, L501.5425 #### [facility] [address] [place], [address] RBC (Bld) [#/Vol] 3.44 10*6/uL Low 4.6-6.2 [facility] Comment on above: Performed By: #### L 500.4050, L100.0100, L501.5425 #### [facility] [address] [place], [address] RDW SD 50.0 fl High 35.1-43.9 [facility] Comment on above: Performed By: #### L 500.4050, L100.0100, L501.5425 #### [facility] [address] [place], [address] WBC (Bld) [#/Vol] 9.6 10*3/uL Normal 4.4-11.0 [facility] Comment on above: Performed By: #### L 500.4050, L100.0100, L501.5425 #### [facility] [address] [place], [address] CNPNon 04-27-2024 CNPN Normal [facility] Basic Metabolic Profile (BMP )on 04-26-2024 BUN/CRE 16.1 RATIO Normal 10-20 [facility] Comment on above: Performed By: #### L 501.080 #### [facility] [address] [place], [address] CA,Total 8.8 mg/dL Normal 8.5-10.1 [facility] Comment on above: Performed By: #### L 501.080 #### [facility] [address] [place], [address] Chloride [Moles/Vol] 111 mmol/L High 98-107 [facility] Comment on above: Performed By: #### L 501.080 #### [facility] [address] [place], [address] CO2 [Moles/Vol] 24.0 mmol/L Normal 21.0-32.0 [facility] Comment on above: Performed By: #### L 501.080 #### [facility] [address] [place], [address] Creatinine [Mass/Vol] 1.68 mg/dL High 0.70-1.30 [facility] Comment on above: Result Comment: The validity of the calculated GFR GFRAA in patients over 70 years has not been determined. Clinical correlation is essential. Performed By: #### L 501.080 #### [facility] [address] [place], [address] ECRCL 43.43 ml/min Normal [facility] Comment on above: Performed By: #### L 501.080 #### [facility] [address] [place], [address] EST GFR - AA 50 mL/min Low >60 [facility] Comment on above: Result Comment: Afri can Icelandic GFR Calc Performed By: #### L 501.080 #### [facility] [address] [place], [address] GAP 4 Low 5-15 [facility] Comment on above: Performed By: #### L 501.080 #### [facility] [address] [place], [address] GFR/1.73 sq M.predicted among non-blacks MDRD (S/P/Bld) [Vol rate/Area] 42 mL/min/{1.73_m2} Low >60 [facility] Comment on above: Result Comment: Non- GFR Calc Performed By: #### L 501.080 #### [facility] [address] [place], [address] Glucose [Mass/Vol] 123 mg/dL High 74-106 [facility] Comment on above: Result Comment: Fast ing Glucose result from 100 to 125 mg/dL suggests IMPAIRED HOMEOSTASIS per A.D.A. criteria. Performed By: #### L 501.080 #### [facility] [address] [place], [address] Potassium [Moles/Vol] 4.5 mmol/L Normal 3.5-5.1 [facility] Comment on above: Performed By: #### L 501.080 #### [facility] [address] [place], [address] Sodium [Moles/Vol] 139 mmol/L Normal 136-145 [facility] Comment on above: Performed By: #### L 501.080 #### [facility] [address] [place], [address] Urea nitrogen [Mass/Vol] 27 mg/dL High 7-18 [facility] Comment on above: Performed By: #### L 501.080 #### [facility] [address] [place], [address] Bedside Glucoseon 04-26-2024 FINGERSTICK GLU 156 mg/dL High 74-106 [facility] Comment on above: Result Comment: EARNESTINE GEMENT OF PATIENT CARE PER NURSING PROTOCOL Performed By: #### L 501.080 ####[facility] [address] [place], [address] FINGERSTICK GLU 163 mg/dL High 74-106 [facility] Comment on above: Result Comment: EARNESTINE GEMENT OF PATIENT CARE PER NURSING PROTOCOL Performed By: #### M 100.2199, L4 #### [facility] [address] [place], [address] FINGERSTICK GLU 170 mg/dL High 74-106 [facility] Comment on above: Result Comment: EARNESTINE GEMENT OF PATIENT CARE PER NURSING PROTOCOL Performed By: #### L 501.080 #### [facility] [address] [place], [address] FINGERSTICK GLU 122 mg/dL High 74-106 [facility] Comment on above: Result Comment: EARNESTNIE GEMENT OF PATIENT CARE PER NURSING PROTOCOL Performed By: #### M 100.2200, L4 #### [facility] [address] [place], [address] CNPNon 04-26-2024 CNPN Normal [facility] Modified Barium Swallow Stud n 04-26-2024 Modified Barium Swallow Study [facility] Speech Pathology [address] [place] [address] Modified Barium Swallow Study MR#: [id number] Acct: [id number] Name: AXEL SERRANO Rep #: [id number] : 1940 83 From: Yun Sutton M.A., [facility]-SUSTAINABLE DESIGN COORDINATOR Modified Barium Swallow Patient Information Study Date: 04/26/24 Study Time: 13:00 Direct Billable Minutes: 120 Total Minutes procedure reportin Diagnosis: Parkinson's disease G20.A1, AMS R41.82 Referring Physician: Owen Chakraborty Reason for Referral: Objectively assess swallow function, assess risk for aspiration, and determine recommendations for least restrictive diet textures and compensatory strategies to improve safety of swallow. Medical History: The patient presented to [facility] w/ 2 weeks of altered mental status and hallucinations. Family thought that it might have been due to the new Sinemet prescription for his Parkinson's initially when they stopped it about a week ago they thought that he had improved slightly however he continued to have the symptoms for the last week that are waxing and waning. Pt is having hallucinations. Workup in the ER was unremarkable. He was admitted for management of AMS. Brain CT 04/24/24 No acute intracranial abnormality. There has been no significant change from the reference examination. Senescent change with small vessel ischemia."; Chest X-Ray 04/24/24 "No radiographic evidence of acute cardiopulmonary disease." Pt was referred for ST consult to assess swallow function. 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), CKD, Non-ischemic cardiomyopathy, History of NSTEMI (01/22/20), CHF - NYHA class III, Atherosclerotic heart disease of [place] coronary artery without angina pectoris, Diffuse large B cell lymphoma, Mild chronic anemia, Nonrheumatic aortic (valve) stenosis, Non-Hodgkin lymphoma, Obesity, Splenic artery aneurysm, Type 2 DM Kidney stones, HLD Current Diet Ordered: NPO Dentition: Upper Dentures and Lower Dentures Mental Status: Impaired (AMS, but able to follow commands for the evaluation) Respiratory Status: Oxygenating on Room Air Penetration-Aspiration Scale Penetration-Aspiration Scale: OBJECTIVE ASSESSMENT OF SWALLOW FUNCTION (QUANTITATIVE ??? PER TRIAL): PENETRATION / ASPIRATION SCALE (GANT): 1 = does not enter airway 2 = enters airway/above vocal folds/ejected 3 = enters airway/above vocal folds/not ejected 4 = enters airway/contacts vocal folds/ejected 5 = enters airway/contacts vocal folds/not ejected 6 = enters airway/below vocal folds/ejected 7 = enters airway/below vocal folds/not ejected despite effort 8 = enters airway/below vocal folds/no effort VIDEOFLOROSCOPIC SCALE SCORE (GANT): Grade I = aspiration of material that has penetrated into the laryngeal vestibule, intact cough reflex Grade II = aspiration < 10 % of the bolus, intact cough reflex Grade III = aspiration of < 10 % of the bolus, reduced cough reflex or aspiration of > 10 % of the bolus, intact cough reflex Grade IV = aspiration of > 10 % of the bolus, reduced cough reflex Penetration-Aspiration Scale Score Thin Liquid via teaspoon: Result: 8= enters airway/below vocal folds/no effort Thin Liquid via teaspoon Trial 2: Result: 1= does not enter airway Comment: Cued cough and re-swallow = somewhat effective. Thin Liquid via small single sip: cup: Result: 3= enters airways/above vocal folds/not ejected Thin Liquid via small single sip: cup Trial 2: Result: 5= enters airways/contacts vocal folds/not ejected Comment: Cued cough and re-swallow = somewhat effective. [place] Thick Liquid via small single sip: cup: Result: 3= enters airways/above vocal folds/not ejected Pudding via teaspoon: Result: 1= does not enter airway 1/2 Cookie: Result: 1= does not enter airway Thin Liquid via single sip: straw Effortful swallow: Result: 3= enters airways/above vocal folds/not ejected Comment: Cued cough and re-swallow = somewhat effective. Thin Liquid via single sip: straw Effortful swallow Trial 2: Result: 3= enters airways/above vocal folds/not ejected Thin Liquid via small single sip: cup Chin tuck: Result: 8= enters airway/below vocal folds/no effort Honey Thick Liquid via small single sip: cup: Result: 1= does not enter airway Oral Phase Labial Seal: Escape beyond mid-chin Tongue Control During Bolus Hold: Posterior escape of greater than half of bolus Bolus Preparation/Mastication: Slow prolonged chewing/mashing with complete recollection Bolus Transpor (more content not included)... Normal [facility] 12 Lead EKGon 04-25-2024 12 Lead EKG [facility] Cardiovascular Services [address] [place] [address] 12 Lead EKG 04/25/24 0747 MR#: [id number] Acct: [id number] Name: AXEL SERRANO Rep #: [id number] : 1940 83 From: John Herndon MD Attending Dr: Dr. Owen Chakraborty DO Status : ADM IN Ordering Dr: Owen Chakraborty DO Date: 04/25/24 Location: [facility] Sex: M C Admitted: 04/24/24 Test Reason : Blood Pressure : */* mmHG Vent. Rate : 58 BPM Atrial Rate : 58 BPM P-R Int : 180 ms QRS Dur : 126 ms QT Int : 452 ms P-R-T Axes : 11 -35 102 degrees QTcB Int : 443 ms Sinus bradycardia Left axis deviation Left ventricular hypertrophy with QRS widening and repolarization abnormality ( R in aVL , [place] product ) Abnormal ECG When compared with ECG of 24-Apr-2024 22:20, MANUAL COMPARISON REQUIRED DATA IS UNCONFIRMED Confirmed by JOHN HERNDON MD ([id number]), commercial production editor SUMIT PACHECO ([id number]) on 04/27/2024 5:57:53 AM Referred By: RADHA Confirmed By: JOHN HERNDON MD 04/27/24 0557 Date John Herndon MD CC: Dr. Owen Chakraborty DO; Dr. Arsh Polk MD Signed Normal [facility] Basic Metabolic Profile (BMP )on 04-25-2024 BUN/CRE 16.5 RATIO Normal 10-20 [facility] Comment on above: Performed By: #### L 500.2500, L100.0100 ####[facility] [address] [place], [address] CA,Total 9.2 mg/dL Normal 8.5-10.1 [facility] Comment on above: Performed By: #### L 500.2500, L100.0100 ####[facility] [address] [place], [address] Chloride [Moles/Vol] 109 mmol/L High 98-107 [facility] Comment on above: Performed By: #### L 500.2500, L100.0100 ####[facility] [address] [place], [address] CO2 [Moles/Vol] 23.0 mmol/L Normal 21.0-32.0 [facility] Comment on above: Performed By: #### L 500.2500, L100.0100 ####[facility] [address] [place], [address] Creatinine [Mass/Vol] 1.76 mg/dL High 0.70-1.30 [facility] Comment on above: Result Comment: The validity of the calculated GFR GFRAA in patients over 70 years has not been determined. Clinical correlation is essential. Performed By: #### L 500.2500, L100.0100 ####[facility] [address] [place], [address] ECRCL 41.45 ml/min Normal [facility] Comment on above: Performed By: #### L 500.2500, L100.0100 ####[facility] [address] [place], [address] EST GFR - AA 48 mL/min Low >60 [facility] Comment on above: Result Comment: Afri can Icelandic GFR Calc Performed By: #### L 500.2500, L100.0100 ####[facility] [address] [place], [address] GAP 7 Normal 5-15 [facility] Comment on above: Performed By: #### L 500.2500, L100.0100 ####[facility] [address] [place], [address] GFR/1.73 sq M.predicted among non-blacks MDRD (S/P/Bld) [Vol rate/Area] 39 mL/min/{1.73_m2} Low >60 [facility] Comment on above: Result Comment: Non- GFR Calc Performed By: #### L 500.2500, L100.0100 ####[facility] [address] [place], [address] Glucose [Mass/Vol] 170 mg/dL High 74-106 [facility] Comment on above: Result Comment: Fast ing Glucose result greater than or equal to 126 mg/dL suggests DIABETES MELLITUS per A.D.A. criteria. Performed By: #### L 500.2500, L100.0100 ####[facility] [address] [place], [address] Potassium [Moles/Vol] 5.0 mmol/L Normal 3.5-5.1 [facility] Comment on above: Performed By: #### L 500.2500, L100.0100 ####[facility] [address] [place], [address] Sodium [Moles/Vol] 138 mmol/L Normal 136-145 [facility] Comment on above: Performed By: #### L 500.2500, L100.0100 ####[facility] [address] [place], [address] Urea nitrogen [Mass/Vol] 29 mg/dL High 7-18 [facility] Comment on above: Performed By: #### L 500.2500, L100.0100 ####[facility] [address] [place], [address] Bedside Glucoseon 04-25-2024 FINGERSTICK GLU 107 mg/dL High 74-106 [facility] Comment on above: Result Comment: EARNESTINE GEMENT OF PATIENT CARE PER NURSING PROTOCOL Performed By: #### L 501.080 ####[facility] [address] [place], [address] FINGERSTICK GLU 138 mg/dL High 74-106 [facility] Comment on above: Result Comment: EARNESTINE GEMENT OF PATIENT CARE PER NURSING PROTOCOL Performed By: #### L 501.080 ####[facility] [address] [place], [address] FINGERSTICK GLU 134 mg/dL High 74-106 [facility] Comment on above: Result Comment: EARNESTINE GEMENT OF PATIENT CARE PER NURSING PROTOCOL Performed By: #### L 500.4050, L100.0100, L501.5425 #### [facility] Laboratory [address] [place], [address] FINGERSTICK GLU 146 mg/dL High 74-106 [facility] Comment on above: Result Comment: EARNESTINE GEMENT OF PATIENT CARE PER NURSING PROTOCOL Performed By: #### L 501.080 ####[facility] [address] [place], [address] FINGERSTICK GLU 144 mg/dL High 74-106 [facility] Comment on above: Result Comment: EARNESTINE GEMENT OF PATIENT CARE PER NURSING PROTOCOL Performed By: #### L 501.080 ####[facility] [address] [place], [address] CBC W/Diff, Automatedon 12- Absolute Lymph 0.85 X10 3/uL Normal 0.83-4.51 [facility] Comment on above: Performed By: #### L 500.2500, L100.0100 ####[facility] [address] [place], [address] Absolute Neut 10.0 X10 3/uL High 2.0-7.7 [facility] Comment on above: Performed By: #### L 500.2500, L100.0100 ####[facility] [address] [place], [address] Basophils/100 WBC (Bld) 0.2 % Normal 0-1 [facility] Comment on above: Performed By: #### L 500.2500, L100.0100 ####[facility] [address] [place], [address] Eosinophils/100 WBC (Bld) 1.3 % Normal 0-5 [facility] Comment on above: Performed By: #### L 500.2500, L100.0100 ####[facility] [address] [place], [address] Erythrocyte distribution width (RBC) [Ratio] 15.6 % High 11.6-14.6 [facility] Comment on above: Performed By: #### L 500.2500, L100.0100 ####[facility] [address] [place], [address] Hematocrit (Bld) [Volume fraction] 33.3 % Low 40-54 [facility] Comment on above: Performed By: #### L 500.2500, L100.0100 ####[facility] [address] [place], [address] Hemoglobin (Bld) [Mass/Vol] 10.6 g/dL Low 13.0-16.5 [facility] Comment on above: Performed By: #### L 500.2500, L100.0100 ####[facility] [address] [place], [address] IG% 0.600 Normal 0.0-0.9 [facility] Comment on above: Result Comment: IG% - Immature Granulocytes (promyelocytes, myelocytes and metamyelocytes) > 1% indicates that a LEFT SHIFT is Present. Performed By: #### L 500.2500, L100.0100 ####[facility] [address] [place], [address] Lymphocytes/100 WBC (Bld) 7.1 % Low 19-41 [facility] Comment on above: Performed By: #### L 500.2500, L100.0100 ####[facility] [address] [place], [address] MCH (RBC) [Entitic mass] 29.0 pg Normal 27.0-32.0 [facility] Comment on above: Performed By: #### L 500.2500, L100.0100 ####[facility] [address] [place], [address] MCHC (RBC) [Mass/Vol] 31.8 g/dL Low 32-36 [facility] Comment on above: Performed By: #### L 500.2500, L100.0100 ####[facility] [address] [place], [address] MCV (RBC) [Entitic vol] 91.0 fL Normal 80-94 [facility] Comment on above: Performed By: #### L 500.2500, L100.0100 ####[facility] [address] [place], [address] Monocytes/100 WBC (Bld) 6.6 % Normal 0-10 [facility] Comment on above: Performed By: #### L 500.2500, L100.0100 ####[facility] [address] [place], [address] Neutrophils/100 WBC (Bld) 84.2 % High 47-70 [facility] Comment on above: Performed By: #### L 500.2500, L100.0100 ####[facility] [address] [place], [address] Nucleated RBC (Bld) [#/Vol] 0.2 10*3/uL Normal 0-5 [facility] Comment on above: Performed By: #### L 500.2500, L100.0100 ####[facility] [address] [place], [address] Platelet mean volume (Bld) [Entitic vol] 9.9 fL Normal 6.2-12.0 [facility] Comment on above: Performed By: #### L 500.2500, L100.0100 ####[facility] [address] [place], [address] Platelets (Bld) [#/Vol] 223 10*3/uL Normal 150-450 [facility] Comment on above: Performed By: #### L 500.2500, L100.0100 ####[facility] [address] [place], [address] RBC (Bld) [#/Vol] 3.66 10*6/uL Low 4.6-6.2 [facility] Comment on above: Performed By: #### L 500.2500, L100.0100 ####[facility] [address] [place], [address] RDW SD 50.2 fl High 35.1-43.9 [facility] Comment on above: Performed By: #### L 500.2500, L100.0100 ####[facility] [address] [place], [address] WBC (Bld) [#/Vol] 11.9 10*3/uL High 4.4-11.0 [facility] Comment on above: Performed By: #### L 500.2500, L100.0100 ####[facility] [address] [place], [address] 12 Lead EKGon 04-24-2024 12 Lead EKG [facility] Cardiovascular Services [address] [place] [address] 12 Lead EKG 04/24/24 2220 MR#: [id number] Acct: [id number] Name: AXEL SERRANO Rep #: [id number] : 1940 83 From: John Herndon MD Attending Dr: Dr. Owen Chakraborty DO Status : ADM IN Ordering Dr: Kevin Sarmiento DO Date: 4 Location: [facility] Sex: M C Admitted: 04/24/24 Test Reason : RUNS VTACH Blood Pressure : */* mmHG Vent. Rate : 154 BPM Atrial Rate : * BPM P-R Int : * ms QRS Dur : 140 ms QT Int : 288 ms P-R-T Axes : * -22 160 degrees QTcB Int : 461 ms Critical Test Result: High HR Atrial fibrillation with rapid ventricular response with premature ventricular or aberrantly conducted complexes Left bundle branch block Abnormal ECG Confirmed by JOHN HERNDON MD ([id number]), commercial production editor SUMIT PACHECO ([id number]) on 04/26/2024 6:36:26 AM Referred By: Confirmed By: JOHN HERNDON MD 04/26/24 0636 Date John Herndon MD CC: Dr. Owen Chakraborty DO; Dr. Kevin Sarmiento DO; Dr. Arsh Polk MD Signed Normal [facility] 12 Lead EKG [facility] Cardiovascular Services [address] [place] [address] 12 Lead EKG 04/24/24 1658 MR#: [id number] Acct: [id number] Name: AXEL SERRANO Rep #: [id number] : 1940 83 From: John Herndon MD Attending Dr: Dr. Owen Chakraborty DO Status : ADM IN Ordering Dr: Kevin Sarmiento DO Date: 4 Location: [facility] Sex: M C Admitted: 04/24/24 Test Reason : ALTERED LOC Blood Pressure : */* mmHG Vent. Rate : 68 BPM Atrial Rate : 68 BPM P-R Int : 178 ms QRS Dur : 130 ms QT Int : 430 ms P-R-T Axes : 25 -32 118 degrees QTcB Int : 457 ms Normal sinus rhythm Left axis deviation Left ventricular hypertrophy with QRS widening and repolarization abnormality ( R in aVL , [place] product ) Abnormal ECG Confirmed by JOHN HERNDON MD ([id number]), commercial production editor SUMIT PACHECO ([id number]) on 04/26/2024 6:35:05 AM Referred By: Confirmed By: JOHN HERNDON MD 04/26/24 0635 Date John Herndon MD CC: Dr. Owen Chakraborty DO; Dr. Kevin Sarmiento DO; Dr. Arsh Polk MD Signed Normal [facility] Brain/Head without Contrasto n 04-24-2024 Brain/Head without Contrast [facility] Imaging Services [address] [place] [address] [id number] Brain/Head without Contrast MR#: [id number] Acct: [id number] Name: AXEL SERRANO Rep #: [id number] : 1940 83 From: Zia Jackson MD PCP: Dr. Arsh Polk MD Status: REG ER Study: Brain/Head without Contrast Date of Exam: 04/09 10/31 Exam# [id number] Ordering Dr: Kevin Sarmiento DO [id number] EXAM: CT HEAD WITHOUT INTRAVENOUS CONTRAST CLINICAL INDICATION: Intermittent delirium TECHNIQUE: Multiple axial images were obtained of the head without intravenous contrast. This CT exam was performed using one or more of the following dose reduction techniques: automated exposure control, adjustment of the mA and/or kV according to patient size, and/or use of iterative reconstruction technique. COMPARISON: 03/16/2024 FINDINGS: BRAIN AND EXTRA-AXIAL SPACES: There is mild enlargement of ventricular system and cortical sulci. There is hypoattenuation in the periventricular white matter. No intra- or extra-axial hemorrhage. No evidence of acute infarct. No intracranial mass or mass effect. There is preservation of the reid/white matter interface. Posterior fossa structures are unremarkable. Basal cisterns are patent. BONES/JOINTS: Unremarkable. No discrete lytic or blastic abnormalities. SINUSES: Unremarkable as visualized. Clear. MASTOID AIR CELLS: Unremarkable. Clear. ORBITS: Visualized globes, extraocular muscles, optic nerves and retrobulbar fat appear unremarkable. CT/Brain/Head without Contrast IMPRESSION: 1. No acute intracranial abnormality. There has been no significant change from the reference examination. 2. Senescent change with small vessel ischemia. Electronically Signed: Zia Jackson MD at 17:17 EST , CC: Dr. Kevin Sarmiento DO; Dr. Arsh Polk MD [place]: Signed Normal [facility] CBC W/Diff, Automatedon 04-09 Absolute Lymph 1.01 X10 3/uL Normal 0.83-4.51 [facility] Comment on above: Performed By: #### L 500.4050, L100.0100, L501.5425 #### [facility] Laboratory [address] [place], [address] Absolute Neut 8.8 X10 3/uL High 2.0-7.7 [facility] Comment on above: Performed By: #### L 500.4050, L100.0100, L501.5425 #### [facility] [address] [place], [address] Basophils/100 WBC (Bld) 0.3 % Normal 0-1 [facility] Comment on above: Performed By: #### L 500.4050, L100.0100, L501.5425 #### [facility] [address] [place], [address] Eosinophils/100 WBC (Bld) 2.1 % Normal 0-5 [facility] Comment on above: Performed By: #### L 500.4050, L100.0100, L501.5425 #### [facility] [address] [place], [address] Erythrocyte distribution width (RBC) [Ratio] 15.7 % High 11.6-14.6 [facility] Comment on above: Performed By: #### L 500.4050, L100.0100, L501.5425 #### [facility] [address] [place], [address] Hematocrit (Bld) [Volume fraction] 33.4 % Low 40-54 [facility] Comment on above: Performed By: #### L 500.4050, L100.0100, L501.5425 #### [facility] [address] [place], [address] Hemoglobin (Bld) [Mass/Vol] 10.6 g/dL Low 13.0-16.5 [facility] Comment on above: Performed By: #### L 500.4050, L100.0100, L501.5425 #### [facility] [address] [place], [address] IG% 0.600 Normal 0.0-0.9 [facility] Comment on above: Result Comment: IG% - Immature Granulocytes (promyelocytes, myelocytes and metamyelocytes) > 1% indicates that a LEFT SHIFT is Present. Performed By: #### L 500.4050, L100.0100, L501.5425 #### [facility] [address] [place], [address] Lymphocytes/100 WBC (Bld) 9.3 % Low 19-41 [facility] Comment on above: Performed By: #### L 500.4050, L100.0100, L501.5425 #### [facility] [address] [place], [address] MCH (RBC) [Entitic mass] 28.9 pg Normal 27.0-32.0 [facility] Comment on above: Performed By: #### L 500.4050, L100.0100, L501.5425 #### [facility] [address] [place], [address] MCHC (RBC) [Mass/Vol] 31.7 g/dL Low 32-36 [facility] Comment on above: Performed By: #### L 500.4050, L100.0100, L501.5425 #### [facility] [address] [place], [address] MCV (RBC) [Entitic vol] 91.0 fL Normal 80-94 [facility] Comment on above: Performed By: #### L 500.4050, L100.0100, L501.5425 #### [facility] [address] [place], [address] Monocytes/100 WBC (Bld) 7.2 % Normal 0-10 [facility] Comment on above: Performed By: #### L 500.4050, L100.0100, L501.5425 #### [facility] [address] [place], [address] Neutrophils/100 WBC (Bld) 80.5 % High 47-70 [facility] Comment on above: Performed By: #### L 500.4050, L100.0100, L501.5425 #### [facility] [address] [place], [address] Nucleated RBC (Bld) [#/Vol] 0 10*3/uL Normal 0-5 [facility] Comment on above: Performed By: #### L 500.4050, L100.0100, L501.5425 #### [facility] [address] [place], [address] Platelet mean volume (Bld) [Entitic vol] 9.9 fL Normal 6.2-12.0 [facility] Comment on above: Performed By: #### L 500.4050, L100.0100, L501.5425 #### [facility] Laboratory [address] [place], [address] Platelets (Bld) [#/Vol] 233 10*3/uL Normal 150-450 [facility] Comment on above: Performed By: #### L 500.4050, L100.0100, L501.5425 #### [facility] Laboratory [address] [place], [address] RBC (Bld) [#/Vol] 3.67 10*6/uL Low 4.6-6.2 [facility] Comment on above: Performed By: #### L 500.4050, L100.0100, L501.5425 #### [facility] [address] [place], [address] RDW SD 51.3 fl High 35.1-43.9 [facility] Comment on above: Performed By: #### L 500.4050, L100.0100, L501.5425 #### [facility] [address] [place], [address] WBC (Bld) [#/Vol] 10.9 10*3/uL Normal 4.4-11.0 [facility] Comment on above: Performed By: #### L 500.4050, L100.0100, L501.5425 #### [facility] Laboratory [address] [place], [address] Chest PA and Lateralon 12-16 -2024 Chest PA and Lateral [facility] Imaging Services [address] [place], [place] [id number] Chest PA and Lateral MR#: [id number] Acct: [id number] Name: AXEL SERRANO Rep #: [id number] : 1940 M 83 From: Zia Jackson MD PCP: Dr. Arsh Polk MD Status: REG ER Study: Chest PA and Lateral Date of Exam: 04/24/24 Exam# [id number] Ordering Dr: Kevin Sarmiento DO [id number] EXAM: XR CHEST, 2 VIEWS CLINICAL INDICATION: Cough TECHNIQUE: Frontal and lateral views of the chest. COMPARISON: 06/14/2020 FINDINGS: LUNGS AND PLEURAL SPACES: Unremarkable. No consolidation or edema. No pneumothorax. No effusion. HEART: Unremarkable. Cardiac silhouette not enlarged. MEDIASTINUM: Central airways and mediastinal contour are unremarkable. BONES/JOINTS: Unremarkable. No acute fracture. SOFT TISSUES: Unremarkable. RAD/Chest PA and Lateral IMPRESSION: No radiographic evidence of acute cardiopulmonary disease. Electronically Signed: Zia Jackson MD at 16:57 EST , CC: Dr. Kevin Sarmiento DO; Dr. Arsh Polk MD [place]: Signed Normal [facility] Comprehensive Metabolic Prof ilon 04-24-2024 Albumin [Mass/Vol] 2.9 g/dL Low 3.2-5.0 [facility] Comment on above: Order Comment: 1 Y Performed By: #### L 500.4050, L100.0100, L501.5425 #### [facility] Laboratory [address] [place], [place], [address] Albumin/Globulin [Mass ratio] 0.7 {ratio} Low 0.9-2.4 [facility] Comment on above: Order Comment: 1 Y Performed By: #### L 500.4050, L100.0100, L501.5425 #### [facility] [address] [place], [address] ALK P 76 U/L Normal 45-117 [facility] Comment on above: Order Comment: 1 Y Performed By: #### L 500.4050, L100.0100, L501.5425 #### [facility] [address] [place], [address] ALT [Catalytic activity/Vol] 12 U/L Low 16-61 [facility] Comment on above: Order Comment: 1 Y Performed By: #### L 500.4050, L100.0100, L501.5425 #### [facility] [address] [place], [address] AST [Catalytic activity/Vol] 9 U/L Low 15-37 [facility] Comment on above: Order Comment: 1 Y Performed By: #### L 500.4050, L100.0100, L501.5425 #### [facility] [address] [place], [address] Bilirubin [Mass/Vol] 0.70 mg/dL Normal 0.20-1.00 [facility] Comment on above: Order Comment: 1 Y Result Comment: For patients on eltrombopag therapy, use of Dimension [place] TBIL is not recommended. Performed By: #### L 500.4050, L100.0100, L501.5425 #### [facility] [address] [place], [address] BUN/CRE 12.6 RATIO Normal 10-20 [facility] Comment on above: Order Comment: 1 Y Performed By: #### L 500.4050, L100.0100, L501.5425 #### [facility] [address] [place], [address] CA,Total 9.4 mg/dL Normal 8.5-10.1 [facility] Comment on above: Order Comment: 1 Y Performed By: #### L 500.4050, L100.0100, L501.5425 #### [facility] [address] [place], [address] Chloride [Moles/Vol] 108 mmol/L High 98-107 [facility] Comment on above: Order Comment: 1 Y Performed By: #### L 500.4050, L100.0100, L501.5425 #### [facility] [address] [place], [address] CO2 [Moles/Vol] 25.0 mmol/L Normal 21.0-32.0 [facility] Comment on above: Order Comment: 1 Y Performed By: #### L 500.4050, L100.0100, L501.5425 #### [facility] [address] [place], [address] Creatinine [Mass/Vol] 2.47 mg/dL High 0.70-1.30 [facility] Comment on above: Order Comment: 1 Y Result Comment: The validity of the calculated GFR GFRAA in patients over 70 years has not been determined. Clinical correlation is essential. Performed By: #### L 500.4050, L100.0100, L501.5425 #### [facility] [address] [place], [address] ECRCL 31.04 ml/min Normal [facility] Comment on above: Order Comment: 1 Y Performed By: #### L 500.4050, L100.0100, L501.5425 #### [facility] [address] [place], [address] EST GFR - AA 32 mL/min Low >60 [facility] Comment on above: Order Comment: 1 Y Result Comment: Afri can Icelandic GFR Calc Performed By: #### L 500.4050, L100.0100, L501.5425 #### [facility] Laboratory [address] [place], [address] GAP 4 Low 5-15 [facility] Comment on above: Order Comment: 1 Y Performed By: #### L 500.4050, L100.0100, L501.5425 #### [facility] [address] [place], [address] GFR/1.73 sq M.predicted among non-blacks MDRD (S/P/Bld) [Vol rate/Area] 27 mL/min/{1.73_m2} Low >60 [facility] Comment on above: Order Comment: 1 Y Result Comment: Non- GFR Calc Performed By: #### L 500.4050, L100.0100, L501.5425 #### [facility] Laboratory [address] [place], [address] Globulin (S) [Mass/Vol] 4.2 g/dL Normal 2.2-4.2 [facility] Comment on above: Order Comment: 1 Y Performed By: #### L 500.4050, L100.0100, L501.5425 #### [facility] [address] [place], [address] Glucose [Mass/Vol] 137 mg/dL High 74-106 [facility] Comment on above: Order Comment: 1 Y Result Comment: Fast ing Glucose result greater than or equal to 126 mg/dL suggests DIABETES MELLITUS per A.D.A. criteria. Performed By: #### L 500.4050, L100.0100, L501.5425 #### [facility] [address] [place], [address] Potassium [Moles/Vol] 5.4 mmol/L High 3.5-5.1 [facility] Comment on above: Order Comment: 1 Y Performed By: #### L 500.4050, L100.0100, L501.5425 #### [facility] [address] [place], [address] Sodium [Moles/Vol] 137 mmol/L Normal 136-145 [facility] Comment on above: Order Comment: 1 Y Performed By: #### L 500.4050, L100.0100, L501.5425 #### [facility] [address] [place], [address] T PROT 7.1 g/dL Normal 6.4-8.2 [facility] Comment on above: Order Comment: 1 Y Performed By: #### L 500.4050, L100.0100, L501.5425 #### [facility] Laboratory [address] [place], [address] Urea nitrogen [Mass/Vol] 31 mg/dL High 7-18 [facility] Comment on above: Order Comment: 1 Y Performed By: #### L 500.4050, L100.0100, L501.5425 #### [facility] [address] [place], [address] Echo Complete W/ Contraston 04-24-2024 Echo Complete W/ Contrast [facility] Cardiovascular Services [address] [place] [address] Echo Complete W/ Contrast 04/25/24 0949 MR#: [id number] Acct: [id number] Name: AXEL SERRANO Rep #: [id number] : 1940 83 From: John Herndon MD Attending Dr: Dr. Owen Chakraborty, DO Status : ADM IN Ordering Dr: Rey Dominguez MD Date: 04/24/24 Location: U Sex: M C Admitted: 04/24/24 Reason For Study: Afib/Flutter Procedure This was a 2D Doppler, Color Flow transthoracic echocardiogram. The study was technically difficult. Contrast injection was performed. Exam performed portable in patient room. Left Ventricle Normal LV size. Mild concentric left ventricular hypertrophy. The left ventricular ejection fraction is 40 %. There is mild to moderate global hypokinesis of the left ventricle. Right Ventricle Normal RV size. Normal systolic function. Aortic Valve Peak aortic valve gradient 21 mmHg. Mean aortic valve gradient 10 mmHg. Bioprosthetic aortic valve. Pulmonic Valve Normal pulmonic valve. Mild (1+) pulmonic valve insufficiency. Great Vessels Mildly dilated aortic root. The pulmonary artery is normal size. Inferior vena cava collapse with respiration. Pericardium/Pleural No pericardial effusion. Medication Diluted definity 3ml given slow IV push to enhance endocardial definition. MMode/2D Measurements Calculations LVIDd: 5.7 cm IVSd: 1.2 cm LVOT diam: 2.1 cm LVIDs: 4.0 cm LVPWd: 1.4 cm LVOT area: 3.6 cm2 RVDd: 4.5 cm FS: 30.0 % Ao root diam: 4.1 cm LAV(MOD-bp): 119.3 ml LVAd ap4: 41.5 cm2 LAV(MOD-bp) Indexed: 50.9 ml/m2 LVLd ap4: 8.7 cm LAV(MOD-sp2): 116.2 ml EDV(MOD-sp4): 157.8 ml LAV(MOD-sp4): 107.6 ml EDV(sp4-el): 168.2 ml LVAs ap4: 32.7 cm2 LVLs ap4: 8.5 cm ESV(MOD-sp4): 104.1 ml ESV(sp4-el): 107.7 ml EF(MOD-sp4): 34.0 % EF(sp4-el): 36.0 % SV(MOD-sp4): 53.7 ml SV(sp4-el): 60.5 ml LA A4 area: 31.6 cm2 SI(MOD-sp4): 22.9 ml/m2 LA dimension(2D): 4.5 cm TAPSE: 2.0 cm RA A4 area: 16.8 cm2 Time Measurements MV dec time: 0.23 sec Doppler Measurements Calculations MV E max samantha: 72.1 cm/sec MV V2 max: 75.0 cm/sec MV P1/2t max samantha: 76.0 cm/sec MV A max samantha: 44.9 cm/sec MV max P.2 mmHg MV P1/2t: 68.0 msec MV E/A: 1.6 MV V2 mean: 31.9 cm/sec MV mean P.52 mmHg MV dec slope: 327.6 cm/sec2 MV V2 VTI: 23.9 cm MVA(P1/2t): 3.2 cm2 MVA(VTI): 3.5 cm2 Ao V2 max: 229.9 cm/sec LV V1 max: 104.9 cm/sec SV(LVOT): 83.0 ml Ao max P.1 mmHg LV V1 max P.4 mmHg Ao V2 mean: 143.5 cm/sec LV V1 mean P.3 mmHg Ao mean P.7 mmHg LV V1 mean: 71.3 cm/sec Ao V2 VTI: 50.3 cm LV V1 VTI: 23.0 cm AV (velocity ratio): 0.46 JOSSE(I,D): 1.7 cm2 JOSSE(V,D): 1.6 cm2 PA V2 max: 95.3 cm/sec TR max samantha: 319.7 cm/sec TR max P.9 mmHg ECHO/Echo Complete W/ Contrast Interpretation Summary The left ventricular ejection fraction is 40 %. Normal LV size. Mild concentric left ventricular hypertrophy. There is mild to moderate global hypokinesis of the left ventricle. Bioprosthetic aortic valve. Mean aortic valve gradient 10 mmHg. Contrast injection was performed. Ordering Physician: Rey Dominguez Performed By: Keivn Palma RCS 04/25/241699 Date John Herndon MD CC: Dr. Owen Chakraborty DO; Dr. Rey Dominguez MD; Dr. Arsh Polk MD Date Dictated: 04/25/2449 Date Transcribed: 04/25/241699 Kaiawhina Kohanga Reo: Signed Normal [facility] Emergency Department Summary on 04-24-2024 Emergency Department Summary [facility] Medical Records Department [address] [place] [address] Emergency Department Summary 04/24/24 MR#: [id number] Acct: [id number] Name: AXEL SERRANO Rep #: [id number] : 1940 83 From: Kevin Sarmiento DO PCP: Dr. Arsh Polk MD Status:ADM IN Location: [place] [address] HPI History of Present Illness Chief Complaint: Alt LOC Narrative Narrative: Chief complaint and HPI: Episodic confusion and delirium. 83-year-old male with past medical history of Parkinson's disease, CAD, status post TAVR, CHF, HLD, anemia presents with family for evaluation of episodic confusion and delirium. History is mostly taken by . states for the past 2 weeks patient has had episodic confusion and delirium. She describes visual hallucinations. She states that the patient was recently placed on carbidopa levodopa after recently being off of it prior. She states that she thought maybe it was due to this medication so they talked to the PCP and they told them to stop taking it. states this was a week ago. She states the hallucinations have actually worsened. She endorses a cough. Patient and deny any fever, chills, URI symptoms, shortness of breath, chest pain abdominal pain, nausea, vomiting, dysuria, diarrhea. endorses decreased p.o. intake. She states that patient has had frequent falls secondary to his Parkinson's. Patient does admit to episodic confusion. He currently thinks the year is 1980. states he usually knows the year. Review of systems: See HPI Medications: As listed on the chart Allergies: As listed on the chart PFSH: Per chart Vital signs: As listed on the chart. Reviewed. Physical exam: Gen: Alert, oriented to person and place but not year, NAD Head: Normocephalic, atraumatic Eyes: No sclera icterus, conjunctiva clear, PERRL, EOMI ENT: Dry mucous membranes Neck: Trachea midline, No JVD CV: RRR, no murmurs, mild peripheral edema Resp: Lungs CTA BL, no w/r/c GI: Abd soft, non-distended, non-tender, no r/r/g Musc: Move all extremities, no deformity Skin: Warm, dry, mild erythema and chronic wounds on the lower extremities anteriorly Neuro: Alert, grossly intact, sensation intact Psych: Cooperative, appropriate mood and affect [facility] Medical History (Updated 04/24/24 @ 21:[address] Rey Dominguez MD) Parkinson disease Loss of hearing Wears glasses Wears dentures Depression Uses wheelchair Arthritis Anemia Easy bruising Back pain Dietary restriction Former smoker Shortness of breath on exertion History of pain when walking History of edema History of echocardiogram History of stress test Cardiology follow-up encounter History of heart attack Constipation Multiple premature ventricular complexes Fall 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) Chronic kidney disease (CKD) Non-ischemic cardiomyopathy History of non-ST elevation myocardial infarction (NSTEMI) (01/22/20) Chronic systolic (congestive) heart failure CHF (congestive heart failure), NYHA class III 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 01/22/20 08/14/20 History release metoprolol tartrate 50 mg tablet 50 mg PO BID #60 tabs 01/24/20 08/14/20 Rx folic acid 1 mg tablet 1 mg PO DAILY 11/11/21 Unknown History atorvastatin 40 mg tablet 40 mg PO DAILY 02/20/22 Unknown History cholecalciferol (vitamin D3) 1,250 50,000 unit PO QWEEK 02/20/22 Unknown History mcg (50,000 unit) capsule sertraline 50 mg tablet 50 mg PO DAILY 02/20/22 Unknown History ferrous gluconate 240 mg (27 mg 240 mg PO BID 11/17/22 Unknown History iron) tablet mecobalamin (vitamin B12) 1,000 1,000 mcg PO DAILY 11/16/23 Unknown History mcg chewable tablet metformin 500 mg tablet,extended 500 mg PO BID DM 11/16/23 Unknown History release 24 hr saw palmetto 1 cap PO DAILY 11/16/23 Unknown History sitagliptin phosphate 50 mg tablet 50 mg PO QDAY 11/16/23 Unknown History (Januvia) furosemide 40 mg tablet See Rx Instructions .Route 04/19/24 Unknown Rx .COMPLEX #90 tabs tamsulosin 0.4 mg capsule (Flomax) 0.8 mg PO DAILY 04/24/24 Unknown History Allergy/AdvReac Type Severity Reaction Status Date / Time No Known Allergies Allergy Verified 04/24/24 16:19 Family History Mother Heart disease F (more content not included)... Normal [facility] H AND P Exam - Hospitaliston 04-24-2024 H&P Exam - Hospitalist [facility] Medical Records Department [address] [place] [address] H P Exam - Hospitalist 04/24/242044 MR#: [id number] Acct: [id number] Name: AXEL SERRANO Rep #: [id number] : 1940 83 From: Rey Dominguez MD PCP: Dr. Arsh Polk MD Status:REG ER Location: ED HPI - General General Date of Admission: 04/24/24 HPI Narrative AXEL SERRANO, is a 83 M who presents to the hospital with 2 weeks of altered mental status and hallucinations. Family thought that it might have been due to the new Sinemet prescription for his Parkinson's initially when they stopped it about a week ago they thought that he had improved slightly however he continued to have the symptoms for the last week that are waxing and waning. He does have some hallucinations like the garbage can moving across the room or during my evaluation he had something in his hand that he gave to his , there is nothing there. Workup in the ER was unremarkable, no leukocytosis no fever, infectious workup was negative with normal UA and viral panel. The only major abnormality was renal insufficiency, his baseline creatinine has been around 1.2 and is currently 2.47 and he is on gabapentin as an outpatient that he has been on for several years per the . [facility] Medical History (Updated 04/24/24 @ 21:[address] Rey Dominguez MD) Parkinson disease Loss of hearing Wears glasses Wears dentures Depression Uses wheelchair Arthritis Anemia Easy bruising Back pain Dietary restriction Former smoker Shortness of breath on exertion History of pain when walking History of edema History of echocardiogram History of stress test Cardiology follow-up encounter History of heart attack Constipation Multiple premature ventricular complexes Fall 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) Chronic kidney disease (CKD) Non-ischemic cardiomyopathy History of non-ST elevation myocardial infarction (NSTEMI) (01/22/20) Chronic systolic (congestive) heart failure CHF (congestive heart failure), NYHA class III 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 01/22/20 08/14/20 History release metoprolol tartrate 50 mg tablet 50 mg PO BID #60 tabs 01/24/20 08/14/20 Rx folic acid 1 mg tablet 1 mg PO DAILY 11/11/21 Unknown History atorvastatin 40 mg tablet 40 mg PO DAILY 02/20/22 Unknown History cholecalciferol (vitamin D3) 1,250 50,000 unit PO QWEEK 02/20/22 Unknown History mcg (50,000 unit) capsule sertraline 50 mg tablet 50 mg PO DAILY 02/20/22 Unknown History ferrous gluconate 240 mg (27 mg 240 mg PO BID 11/17/22 Unknown History iron) tablet mecobalamin (vitamin B12) 1,000 1,000 mcg PO DAILY 11/16/23 Unknown History mcg chewable tablet metformin 500 mg tablet,extended 500 mg PO BID DM 11/16/23 Unknown History release 24 hr saw palmetto 1 cap PO DAILY 11/16/23 Unknown History sitagliptin phosphate 50 mg tablet 50 mg PO QDAY 11/16/23 Unknown History (Januvia) furosemide 40 mg tablet See Rx Instructions .Route 04/19/24 Unknown Rx .COMPLEX #90 tabs tamsulosin 0.4 mg capsule (Flomax) 0.8 mg PO DAILY 04/24/24 Unknown History Allergy/AdvReac Type Severity Reaction Status Date / Time No Known Allergies Allergy Verified 04/24/24 16:19 Family History Mother Heart disease Father Heart disease Brother Heart disease Surgical History History of left heart catheterization (08/14/20) Hx of cataract surgery Hx of cholecystectomy Social History Smoking Status: Former smoker how long ago did patient quit smokin alcohol intake: never substance use type: does not use caffeine: Yes Type: coffee Number of servings: 2 ROS Constitutional Constitutional: Denies chills, fatigue, fever(s) or malaise Eyes Eyes: Denies blurry vision ENT HEENT: Denies headache(s) or nasal discharge Cardiovascular Cardiovascular: Denies chest pain, dyspnea on exertion or syncope Respiratory/Chest Respiratory/Chest: Denies cough, shortness of breath at rest or shortness of breath with exertion Gastrointestinal Gastrointestinal: Denies constipation, diarrhea, nausea or vomiting Genitourinary Genitourinary: Denies dysuria Neurolo (more content not included)... Normal [facility] L501.4020on 04-24-2024 TROPONIN-I HS 24 pg/mL Normal 3.0-78.0 [facility] Comment on above: Result Comment: Plea se Note: New Test Units and Gender Specific Reference Ranges. For more information see Policy Stat Procedure [place] High Sensitivity Troponin (TNIH) and attachments. Performed By: #### L 501.4020 ####[facility] [address] [place], [address] L501.5425on 04-24-2024 TROPONIN-I HS 26 pg/mL Normal 3.0-78.0 [facility] Comment on above: Order Comment: 1 Y Result Comment: Plea se Note: New Test Units and Gender Specific Reference Ranges. For more information see Policy Stat Procedure [place] High Sensitivity Troponin (TNIH) and attachments. Performed By: #### L 500.4050, L100.0100, L501.5425 #### [facility] [address] [place], [address] M100.678on 04-24-2024 M100.678 Pending SARS-CoV-2 (COVID 19) Negative INFLUENZA A Negative INFLUENZA B Negative RSV PCR Negative Normal [facility] Comment on above: Performed By: #### L 500.4050, L100.0100, L501.5425 #### [facility] [address] [place], [address] Thyroid Stim Hormone (TSH)on 04-24-2024 TSH 3.140 uIU/mL Normal 0.358-3.74 0 [facility] Comment on above: Performed By: #### L 501.9520 ####[facility] [address] [place], [address] Urinalysis, Completeon 04-24 BACTERIA RARE Normal None Seen [facility] Comment on above: Order Comment: 1 Y Performed By: #### L 500.4050, L100.0100, L501.5425 #### [facility] [address] [place], [address] RBC 0-5 SEEN Normal 0-5 [facility] Comment on above: Order Comment: 1 Y Performed By: #### L 500.4050, L100.0100, L501.5425 #### [facility] [address] [place], [address] WBC 0-5 SEEN Normal 0-5 [facility] Comment on above: Order Comment: 1 Y Performed By: #### L 500.4050, L100.0100, L501.5425 #### [facility] [address] [place], [address] EPI,SQUAMOUS 0 SEEN Normal 0-5 [facility] Comment on above: Order Comment: 1 Y Performed By: #### L 500.4050, L100.0100, L501.5425 #### [facility] [address] [place], [address] Mucus Ql (Urine sed) 0 SEEN Normal [facility] Comment on above: Order Comment: 1 Y Performed By: #### L 500.4050, L100.0100, L501.5425 #### [facility] [address] [place], [place], [address] CNPNon 04-20-2024 CNPN Normal [facility] CBC W Auto Differential pane l (Bld)on 04-17-2024 Basophils (Bld) [#/Vol] 0.04 10*3/uL Normal <0.11 [facility] Comment on above: Order Comment: Speci men Type: BLOOD SPECIMENOrdering Facility: [facility] Address: [address] [place] [address] Performed By: #### 5 7021-8 ####[facility]ENTERLIA [id number] [address] LABCLIA [id number] [address] [place] Basophils/100 WBC (Bld) 0.4 % Normal [facility] Comment on above: Order Comment: Speci men Type: BLOOD SPECIMENOrdering Facility: [facility] Address: [address] [place] [address] Performed By: #### 5 7021-8 ####[facility]ENTERLIA [id number] [address] LABCLIA [id number] [facility] [address] STATES OF [facility] Differential cell count method Nom (Bld) Auto Normal [facility] Comment on above: Order Comment: Speci men Type: BLOOD SPECIMENOrdering Facility: [facility] Address: [address] [place] [address] Performed By: #### 5 7021-8 ####[facility]OSPITALWNCLIA [id number] [address] STATES OF [facility] LABCLIA [id number] [place] [address] [place] Eosinophils (Bld) [#/Vol] 0.37 10*3/uL Normal <0.46 [facility] Comment on above: Order Comment: Speci men Type: BLOOD SPECIMENOrdering Facility: [facility] Address: [address] [place] [address] Performed By: #### 5 7021-8 ####[facility] HOSPITALWWALIA [id number] [address] LABCLIA [id number] [place] [address] [place] Eosinophils/100 WBC (Bld) 3.6 % Normal [facility] Comment on above: Order Comment: Speci men Type: BLOOD SPECIMENOrdering Facility: [facility] Address: [address] [place] [address] Performed By: #### 5 7021-8 ####[facility]ENTERLIA [id number] [address] LABCLIA [id number] [place] [address] [place] Erythrocyte distribution width (RBC) [Ratio] 15.2 % High 11.5-15.0 [facility] Comment on above: Order Comment: Speci men Type: BLOOD SPECIMENOrdering Facility: [facility] Address: [address] [place] [address] Performed By: #### 5 7021-8 ####[facility]ENTERLIA [id number] [address] LABCLIA [id number] [place] [address] [place] Hematocrit (Bld) [Volume fraction] 29.8 % Low 39.0-51.0 [facility] Comment on above: Order Comment: Speci men Type: BLOOD SPECIMENOrdering Facility: [facility] Address: [address] [place] [address] Performed By: #### 5 7021-8 ####[facility]ITALWNCLIA [id number] [address] LABCLIA [id number] [place] [address] [place] Hemoglobin (Bld) [Mass/Vol] 9.7 g/dL Low 13.0-17.0 [facility] Comment on above: Order Comment: Speci men Type: BLOOD SPECIMENOrdering Facility: [facility] Address: [address] [place] [address] Performed By: #### 5 7021-8 ####[facility]ENTERLIA [id number] [address] LABCLIA [id number] [place] [address] [place] Immature granulocytes (Bld) [#/Vol] 0.08 10*3/uL Normal <0.10 [facility] Comment on above: Order Comment: Speci men Type: BLOOD SPECIMENOrdering Facility: [facility] Address: [address] [place] [address] Performed By: #### 5 7021-8 ####[facility]ENTERLIA [id number] [address] LABCLIA [id number] [place] [address] [place] Immature granulocytes/100 WBC (Bld) 0.8 % Normal [facility] Comment on above: Order Comment: Speci men Type: BLOOD SPECIMENOrdering Facility: [facility] Address: [address] [place] [address] Performed By: #### 5 7021-8 ####[facility]ITALWNCLIA [id number] [address] LABCLIA [id number] [place] [address] [place] Lymphocytes (Bld) [#/Vol] 1.08 10*3/uL Normal 1.00-4.00 [facility] Comment on above: Order Comment: Speci men Type: BLOOD SPECIMENOrdering Facility: [facility] Address: [address] [place] [address] Performed By: #### 5 7021-8 ####[facility]ITALA [id number] [address] LABCLIA [id number] [place] [address] [place] Lymphocytes/100 WBC (Bld) 10.5 % Normal [facility] Comment on above: Order Comment: Speci men Type: BLOOD SPECIMENOrdering Facility: [facility] Address: [address] [place] [address] Performed By: #### 5 7021-8 ####[facility] [id number] [address] LABCLIA [id number] [place] [id number] [place] MCH (RBC) [Entitic mass] 29.6 pg Normal 26.0-34.0 [facility] Comment on above: Order Comment: Speci men Type: BLOOD SPECIMENOrdering Facility: [facility] Address: [address] [place], [place] [address] Performed By: #### 5 7021-8 ####[facility] HOS[facility]ITALNCLIA [id number] [address] LABCLIA [id number] [address] [address] [place] MCHC (RBC) [Mass/Vol] 32.6 g/dL Normal 30.5-36.0 [facility] Comment on above: Order Comment: Speci men Type: BLOOD SPECIMENOrdering Facility: [facility] Address: [address] [place] [address] Performed By: #### 5 7021-8 ####[facility] MILLTOWNCLIA [id number] [address] LABCLIA [id number] [place] [address] [place] MCV (RBC) [Entitic vol] 90.9 fL Normal 80.0-100.0 C [facility] Comment on above: Order Comment: Speci men Type: BLOOD SPECIMENOrdering Facility: [facility] Address: [address] [place] [address] Performed By: #### 5 7021-8 ####[facility]ITALWNCLIA [id number] [address] LABCLIA [id number] [place] [address] [place] Monocytes (Bld) [#/Vol] 0.70 10*3/uL Normal <0.87 [facility] Comment on above: Order Comment: Speci men Type: BLOOD SPECIMENOrdering Facility: [facility] Address: [address] [place] [address] Performed By: #### 5 7021-8 ####[facility] MILLWNCLIA [id number] [address] LABCLIA [id number] [place] [address] [place] Monocytes/100 WBC (Bld) 6.8 % Normal C [facility] Comment on above: Order Comment: Speci men Type: BLOOD SPECIMENOrdering Facility: [facility] Address: [address] [place], [place] [address] Performed By: #### 5 7021-8 ####[facility] MILLTOWNCLIA [id number] [address] LABCLIA [id number] [address] [address] [place] Neutrophils (Bld) [#/Vol] 7.97 10*3/uL High 1.45-7.50 [facility] Comment on above: Order Comment: Speci men Type: BLOOD SPECIMENOrdering Facility: [facility] Address: [address] [place] [address] Performed By: #### 5 7021-8 ####[facility]ITALWNCLIA [id number] [address] LABCLIA [id number] [place] [address] [place] Neutrophils/100 WBC (Bld) 77.9 % Normal [facility] Comment on above: Order Comment: Speci men Type: BLOOD SPECIMENOrdering Facility: [facility] Address: [address] [place] [address] Performed By: #### 5 7021-8 ####[facility]ITALWNCLIA [id number] [address] LABCLIA [id number] [place] [address] [place] Nucleated RBC (Bld) [#/Vol] 10*3/uL Normal <0.01 [facility] Comment on above: Order Comment: Speci men Type: BLOOD SPECIMENOrdering Facility: [facility] Address: [address] [place] [address] Performed By: #### 5 7021-8 ####[facility] MILLWNCLIA [id number] [address] [facility] LABCLIA [id number] [place] [id number] [place] Nucleated RBC/100 WBC (Bld) [Ratio] 0.0 /100 WBC Normal [facility] Comment on above: Order Comment: Speci men Type: BLOOD SPECIMENOrdering Facility: [facility] Address: [address] [place] [address] Performed By: #### 5 7021-8 ####[facility] MILLWNCLIA [id number] [address] LABCLIA [id number] [place] [address] [place] Platelet mean volume (Bld) [Entitic vol] 11.3 fL Normal 9.0-12.7 [facility] Comment on above: Order Comment: Speci men Type: BLOOD SPECIMENOrdering Facility: [facility] Address: [address] [place] [address] Performed By: #### 5 7021-8 ####[facility]ITALWNCLIA [id number] [address] LABCLIA [id number] [place] [address] [place] Platelets (Bld) [#/Vol] 158 10*3/uL Normal 150-400 [facility] Comment on above: Order Comment: Speci men Type: BLOOD SPECIMENOrdering Facility: [facility] Address: [address] [place] [address] Result Comment: No c lot detected. Performed By: #### 5 7021-8 ####[facility] MILLWNCLIA [id number] [address] LABCLIA [id number] [place] [address] [place] RBC (Bld) [#/Vol] 3.28 10*6/uL Low 4.20-6.00 [facility] Comment on above: Order Comment: Speci men Type: BLOOD SPECIMENOrdering Facility: [facility] Address: [address] [place] [address] Performed By: #### 5 7021-8 ####[facility] H[facility]ITALNCLIA [id number] [address] LABCLIA [id number] [place] [address] [place] WBC (Bld) [#/Vol] 10.24 10*3/uL Normal 3.70-11.00 [facility] Comment on above: Order Comment: Speci men Type: BLOOD SPECIMENOrdering Facility: [facility] Address: [address] [place] [address] Performed By: #### 5 7021-8 ####[facility]ITALA [id number] [address] LABCLIA [id number] [address] [place] CNPNon 04-12-2024 CNPN Normal [facility] CNPN Telephone (ALEKS) AXEL SERRANO ([id number]) 1940 M Date Time Provider Department 04/12/24 ARSH OTTO JR During your visit today, we recorded the following information about you: Lulu Calabrese LPN 04/12/2024 9:23 AM Signed error Allergies As of Date: 04/12/2024 Noted Allergy Reaction MAI INHIBITORS 12/16/2017 14 - Other: See Comments Comments: Hyperkalemia ATORVASTATIN 05/05/2017 17 - Myalgia PRAVASTATIN 03/24/2017 17 - Myalgia MDOSKSF-APR-PWI REDUCTASE INHIBIT*02/16/2019 17 - Myalgia Date Reviewed: 04/03/2024 Reviewed by: Yenny Bill - Fully Assessed Prescriptions as of 04/12/2024 - carbidopa-levodopa (SINEMET) 25-100 mg per tablet Take 1 tablet at 6AM, 1 tablet at 10AM, 1 tablet at 2PM and 1 tablet at 6PM. - ferrous gluconate 256 mg (28 mg iron) tab Take 1 tablet by mouth two times a day. - metoprolol tartrate, short acting, (LOPRESSOR) 50 mg tablet Take 1 tablet by mouth two times a day. - folic acid 1 mg tablet Take 1 tablet by mouth once daily. - gabapentin (NEURONTIN) 300 mg capsule Take 1 capsule by mouth two times a day. - atorvastatin (LIPITOR) 40 mg tablet Take 1 tablet by mouth daily at bedtime. For cholesterol. - tamsulosin (FLOMAX) 0.4 mg Take 2 capsules by mouth once daily. - glimepiride (AMARYL) 4 mg tablet Take 1 tablet by mouth two times a day with meals. - sertraline (ZOLOFT) 50 mg tablet Take 1 tablet by mouth once daily. - SITagliptin phosphate (JANUVIA) 50 mg tablet Take 1 tablet by mouth once daily. - metFORMIN ER (GLUCOPHAGE XR) 500 mg 24 hr tablet Take 1 tablet by mouth two times a day before meals. - furosemide (LASIX) 40 mg tablet Take 40 mg by mouth once daily. - cyanocobalamin (VITAMIN B-12) 1,000 mcg tab Take 1 tablet by mouth once daily. - blood sugar diagnostic (BLOOD GLUCOSE TEST) test strip Test blood sugar(s) 1 times daily. Dx: Type 1 DM - Controlled E10.9 Insulin: No - aspirin, enteric coated (ASPIRIN, ENTERIC COATED) 81 mg EC tablet Take 81 mg by mouth once daily. 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] 07/01/2006 TIA (Transient Ischemic Attack) [G45.9] 04/18/2009 Essential hypertension, benign [I10] 05/30/2012 Tremor, essential [G25.0] 05/30/2012 Diabetic neuropathy (HCC) [E11.40] 04/03/2014 12/18/2014 Diabetic polyneuropathy associated with type 2 *12/18/2014 Bladder stone [N21.0] 08/19/2015 02/25/2017 Benign prostatic hyperplasia without lower urin*08/19/2015 Hydronephrosis [N13.30] 08/19/2015 05/29/2022 Kidney stone [N20.0] 08/19/2015 02/25/2017 History of kidney stones [Z87.442] 05/25/2016 History of bladder stone [Z87.448] 05/25/2016 Vitamin B12 deficiency [E53.8] 02/25/2017 05/29/2022 Aortic stenosis [I35.0] 05/27/2017 Class 2 obesity with body mass index (BMI) of 3*09/14/2017 06/02/2023 CKD (chronic kidney disease) Stage 3, GFR 30-59*09/16/2017 Microalbuminuria [R80.9] 12/16/2017 Vitamin D deficiency [E55.9] 07/07/2018 History of non-ST elevation myocardial infarcti*02/01/2020 Anemia due to vitamin B12 deficiency [D51.9] 02/07/2020 Anemia due to folic acid deficiency [D52.9] 11/26/2020 Type 2 diabetes mellitus with stage 3 chronic k*07/28/2021 Hypertensive kidney disease with stage 3 chroni*07/28/2021 Advance care planning [Z71.89] 07/30/2021 Anxiety with depression [F41.8] 05/29/2022 IRINEO (obstructive sleep apnea) [G47.33] 04/01/2022 Abnormal electrocardiography [R94.31] 03/23/2017 06/02/2023 Diagnosed: 06/02/2023 Coronary artery disease involving [place] cavazos*10/02/2020 Diagnosed: 06/02/2023 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*09/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 03/27/2024 Diagnosed: 06/02/2023 Dyspnea on exertion [R06.09] 06/02/2023 06/02/2023 Diagnosed: 06/02/2023 Fall [W19.XXXA] 06/02/2023 06/02/2023 Diagnosed: 06/02/2023 Fatigue [R53.83] 06/02/2023 06/02/2023 Diagnosed: 06/02/2023 Hypersomnia [G47.10] 06/02/2023 Diagnosed: 06/02/2023 LV dysfunction [I51.9] 10/02/2020 Diagnosed: 06/02/2023 Multiple premature ventricular complexes [I49.3]06/02/2023 Diagnosed: 06/02/2023 Tubular adenoma of colon [D12.6] 06/02/2023 Diagnosed: 06/02/2023 BMI 40.0-44.9, adult ([facility]) [Z68.41] 06/02/2023 History of iron deficiency anemia [Z86.2] 09/17/2023 Parkinson's disease ([facility]) [G20.A1] 09/17/2023 Treatment-emergent central sleep apnea [G47.39] 11/08/2023 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 chronic kidney disease ([facility])*12/02/2023 Iron malabsorption [K90.9] 12/02/2023 Encounter Status:Closed by LULU CALABRESE on 04/12/24 Normal [facility] MR Lumbar spine WO contrasto n 04-12-2024 IMPRESSION: Degenerative changes most pronounced at L4-5 and L5-S1. Anatomic Lumbar Variant: None. L4-5 is considered the level of the iliac crest and assume there are 5 lumbar-type vertebrae. Kaiawhina Kohanga Reo: PSCB Transcribe Date/Time: Apr 12 2024 1:54P Dictated by : CRISTIANE BAI MD This examination was interpreted and the report reviewed and electronically signed by: CRISTIANE BAI MD on Apr 12 2024 2:00PM [facility] DIVISION OF RADIOLOGY * * *Final Report* * * DATE OF EXAM: Apr 12 2024 1:00PM [facility] 0303 - MRI LUMBAR SPINE WO IVCON / PROCEDURE REASON: Spinal stenosis of lumbar region with neurogenic claudication * * * * Physician Interpretation * * * * EXAMINATION: MRI LUMBAR SPINE WO IVCON CLINICAL HISTORY: Spinal stenosis of lumbar region with neurogenic claudication TECHNIQUE: Routine lumbosacral spine MR protocol without gadolinium. MQ: MRLSPWO_3 COMPARISON: CT abdomen/pelvis, 12/11/2021 RESULT: Counting reference: Lumbosacral junction. For the purposes of this report, L4-5 is considered the level of the iliac crest and assume there are 5 lumbar-type vertebrae. Anatomic variant: None. Localizer images: No additional findings. Alignment: Grade 1 anterolisthesis at L4-5. Bone marrow signal/fracture: Degenerative endplate changes without associated marrow edema. A T1 isointense, T2 hyperintense nodule in the posterior L2 vertebral body corresponds to a benign hemangioma on the prior CT, no other focal marrow lesion. No evidence of prior fracture. Conus: The visualized spinal cord is normal in morphology and signal intensity. The cauda equina is unremarkable. Paraspinal soft tissues: Paraspinal muscular atrophy, the paraspinal soft tissues are otherwise unremarkable. Lower thoracic spine: Visualized lower thoracic canal and foramina are patent. L1-L2: Facet hypertrophy without canal or foraminal narrowing. L2-L3: Asymmetric disc bulge, facet hypertrophy, ligamentum flavum thickening, and prominent epidural fat with moderate central spinal canal narrowing, mild left and moderate right subarticular recess narrowing, and mild bilateral neural foramen narrowing. L3-L4: Disc bulge, facet hypertrophy, and ligamentum flavum thickening with diffuse mild spinal canal narrowing and moderate bilateral neural foramen narrowing. L4-L5: Disc bulge, facet hypertrophy, and ligamentum flavum thickening with diffuse mild spinal canal narrowing and moderate left and severe right neural foramen narrowing L5-S1: Disc bulge, facet hypertrophy, and ligamentum flavum thickening with severe bilateral neural foramen narrowing. Sacrum and iliac wings: Degenerative changes in the sacroiliac joints. DIVISION OF RADIOLOGY Provider, [facility] - 04/12/2024 * * *Final Report* * * DATE OF EXAM: Apr 12 2024 1:00PM [facility] 0303 - MRI LUMBAR SPINE WO IVCON / PROCEDURE REASON: Spinal stenosis of lumbar region with neurogenic claudication * * * * Physician Interpretation * * * * EXAMINATION: MRI LUMBAR SPINE WO IVCON CLINICAL HISTORY: Spinal stenosis of lumbar region with neurogenic claudication TECHNIQUE: Routine lumbosacral spine MR protocol without gadolinium. MQ: [id number]_3 COMPARISON: CT abdomen/pelvis, 12/11/2021 RESULT: Counting reference: Lumbosacral junction. For the purposes of this report, L4-5 is considered the level of the iliac crest and assume there are 5 lumbar-type vertebrae. Anatomic variant: None. Localizer images: No additional findings. Alignment: Grade 1 anterolisthesis at L4-5. Bone marrow signal/fracture: Degenerative endplate changes without associated marrow edema. A T1 isointense, T2 hyperintense nodule in the posterior L2 vertebral body corresponds to a benign hemangioma on the prior CT, no other focal marrow lesion. No evidence of prior fracture. Conus: The visualized spinal cord is normal in morphology and signal intensity. The cauda equina is unremarkable. Paraspinal soft tissues: Paraspinal muscular atrophy, the paraspinal soft tissues are otherwise unremarkable. Lower thoracic spine: Visualized lower thoracic canal and foramina are patent. L1-L2: Facet hypertrophy without canal or foraminal narrowing. L2-L3: Asymmetric disc bulge, facet hypertrophy, ligamentum flavum thickening, and prominent epidural fat with moderate central spinal canal narrowing, mild left and moderate right subarticular recess narrowing, and mild bilateral neural foramen narrowing. L3-L4: Disc bulge, facet hypertrophy, and ligamentum flavum thickening with diffuse mild spinal canal narrowing and moderate bilateral neural foramen narrowing. L4-L5: Disc bulge, facet hypertrophy, and ligamentum flavum thickening with diffuse mild spinal canal narrowing and moderate left and severe right neural foramen narrowing L5-S1: Disc bulge, facet hypertrophy, and ligamentum flavum thickening with severe bilateral neural foramen narrowing. Sacrum and iliac wings: Degenerative changes in the sacroiliac joints. IMPRESSION IMPRESSION: Degenerative changes most pronounced at L4-5 and L5-S1. Anatomic Lumbar Variant: None. L4-5 is considered the level of the iliac crest and assume there are 5 lumbar-type vertebrae. Kaiawhina Kohanga Reo: DAVID Transcribe Date/Time: Apr 12 2024 1:54P Dictated by : CRISTIANE BAI MD This examination was interpreted and the report reviewed and electronically signed by: CRISTIANE BAI MD on Apr 12 2024 2:00PM EST [facility] MR Lumbar spine WO contrastO rdered By: [facility] Provider on 04-12-2024 [facility] MR Shoulder - left WO fareeda ston 04-12-2024 IMPRESSION: Motion degraded exam. Comminuted nondisplaced fracture of the proximal humerus which is likely subacute healing. Severe tendinosis of the rotator cuff without tear. Kaiawhina Kohanga Reo: PSCB Transcribe Date/Time: Apr 12 2024 3:58P Dictated by : MAINE BRAVO MD This examination was interpreted and the report reviewed and electronically signed by: MAINE BRAVO MD on Apr 12 2024 4:06PM [facility] DIVISION OF RADIOLOGY * * *Final Report* * * DATE OF EXAM: Apr 12 2024 1:00PM [facility] 0239 - MRI SHOULDER WO IVCON LT / PROCEDURE REASON: multiple diagnoses * * * * Physician Interpretation * * * * EXAMINATION: MRI SHOULDER WO IVCON LT HISTORY: Acute pain of left shoulder due to trauma Acute pain of left shoulder due to trauma TECHNIQUE: Routine non-contrast MRI of the shoulder. MQ: MRS_1A COMPARISON: Radiograph dated RESULT: Examination is limited by motion artifact. TENDONS: Rotator cuff tendons: -Supraspinatus: Intact with marked tendinosis -Infraspinatus: Intact with marked tendinosis -Subscapularis: Intact with marked tendinosis -Teres Minor: Intact tendon Biceps (Long head) Tendon: Marked tendinosis without definite high-grade tear. MUSCLES: Rotator cuff muscles: -Supraspinatus: Preserved bulk and no fatty changes. -Infraspinatus: Preserved bulk and no fatty changes. -Subscapularis: Preserved bulk and no fatty changes. -Teres Minor: No atrophy and mild fatty changes. Other muscles: Preserved signal and bulk in the deltoid. JOINTS: Glenohumeral Joint: -Labrum: Limited assessment of the labrum on this study. -Cartilage: Evaluation of articular cartilage is limited. No large high-grade chondral defect is seen within the limitations of the exam. -Joint Fluid: No effusion . No synovitis. Acromioclavicular Joint: Moderate hypertrophic degenerative changes BONES AND MARROW: Comminuted nondisplaced fracture of the proximal humerus with components extending to the base of the greater tuberosity, lesser tuberosity, and proximal humeral metadiaphysis (up to 7.7 cm distal the top of the humeral head). There is surrounding reactive marrow edema and focal intramedullary hematoma along the proximal humeral metadiaphysis. The fracture lines are somewhat ill-defined suggesting that the fracture is subacute and healing. OTHER: Subdeltoid/Subacromial Bursa: Mild bursal distention Other: No other significant findings. Localizer images: No additional findings. DIVISION OF RADIOLOGY Provider, [facility] - 04/12/2024 * * *Final Report* * * DATE OF EXAM: Apr 12 2024 1:00PM [facility] 0239 - MRI SHOULDER WO IVCON LT / PROCEDURE REASON: multiple diagnoses * * * * Physician Interpretation * * * * EXAMINATION: MRI SHOULDER WO IVCON LT HISTORY: Acute pain of left shoulder due to trauma Acute pain of left shoulder due to trauma TECHNIQUE: Routine non-contrast MRI of the shoulder. MQ: MRS_1A COMPARISON: Radiograph dated RESULT: Examination is limited by motion artifact. TENDONS: Rotator cuff tendons: -Supraspinatus: Intact with marked tendinosis -Infraspinatus: Intact with marked tendinosis -Subscapularis: Intact with marked tendinosis -Teres Minor: Intact tendon Biceps (Long head) Tendon: Marked tendinosis without definite high-grade tear. MUSCLES: Rotator cuff muscles: -Supraspinatus: Preserved bulk and no fatty changes. -Infraspinatus: Preserved bulk and no fatty changes. -Subscapularis: Preserved bulk and no fatty changes. -Teres Minor: No atrophy and mild fatty changes. Other muscles: Preserved signal and bulk in the deltoid. JOINTS: Glenohumeral Joint: -Labrum: Limited assessment of the labrum on this study. -Cartilage: Evaluation of articular cartilage is limited. No large high-grade chondral defect is seen within the limitations of the exam. -Joint Fluid: No effusion . No synovitis. Acromioclavicular Joint: Moderate hypertrophic degenerative changes BONES AND MARROW: Comminuted nondisplaced fracture of the proximal humerus with components extending to the base of the greater tuberosity, lesser tuberosity, and proximal humeral metadiaphysis (up to 7.7 cm distal the top of the humeral head). There is surrounding reactive marrow edema and focal intramedullary hematoma along the proximal humeral metadiaphysis. The fracture lines are somewhat ill-defined suggesting that the fracture is subacute and healing. OTHER: Subdeltoid/Subacromial Bursa: Mild bursal distention Other: No other significant findings. Localizer images: No additional findings. IMPRESSION IMPRESSION: Motion degraded exam. Comminuted nondisplaced fracture of the proximal humerus which is likely subacute healing. Severe tendinosis of the rotator cuff without tear. Kaiawhina Kohanga Reo: PSCB Transcribe Date/Time: Apr 12 2024 3:58P Dictated by : MIANE BRAVO MD This examination was interpreted and the report reviewed and electronically signed by: MAINE BRAVO MD on Apr 12 2024 4:06PM EST [facility] MR Shoulder - left WO contra stOrdered By: [facility] Provider on 04-12-2024 [facility] MRI LUMBAR SPINE WO IVCONon 04-12-2024 MRI LUMBAR SPINE WO IVCON Normal [facility] MRI SHOULDER WO IVCON LTon 1 06-13-2023 MRI SHOULDER WO IVCON LT Normal [facility] No Panel Informationon 04-12 Radiology Study observation (narrative) [facility] CBC W Auto Differential pane l (Bld)on 04-03-2024 Basophils (Bld) [#/Vol] 0.04 10*3/uL Normal <0.11 [facility] Comment on above: Order Comment: Speci men Type: BLOOD SPECIMENOrdering Facility: [facility] Address: [address] [place] [address] Performed By: #### 5 7021-8 ####[facility] [id number] [place] [address] [place] Basophils/100 WBC (Bld) 0.4 % Normal C [facility] Comment on above: Order Comment: Speci men Type: BLOOD SPECIMENOrdering Facility: [facility] Address: [address] [place] [address] Performed By: #### 5 7021-8 ####[facility]ENTER[facility] [id number] [place] [address] [place] Differential cell count method Nom (Bld) Auto Normal [facility] Comment on above: Order Comment: Speci men Type: BLOOD SPECIMENOrdering Facility: [facility] Address: [address] [place] [address] Performed By: #### 5 7021-8 ####[facility] [id number] [place] [address] [place] Eosinophils (Bld) [#/Vol] 0.36 10*3/uL Normal <0.46 [facility] Comment on above: Order Comment: Speci men Type: BLOOD SPECIMENOrdering Facility: [facility] Address: [address] [place] [address] Performed By: #### 5 7021-8 ####[facility] [id number] [place] [address] [place] Eosinophils/100 WBC (Bld) 3.8 % Normal [facility] Comment on above: Order Comment: Speci men Type: BLOOD SPECIMENOrdering Facility: [facility] Address: [address] [place] [address] Performed By: #### 5 7021-8 ####[facility] [id number] [place] [address] [place] Erythrocyte distribution width (RBC) [Ratio] 14.8 % Normal 11.5-15.0 [facility] Comment on above: Order Comment: Speci men Type: BLOOD SPECIMENOrdering Facility: [facility] Address: [address] [place] [address] Performed By: #### 5 7021-8 ####[facility] [id number] [place] [address] [place] Hematocrit (Bld) [Volume fraction] 30.2 % Low 39.0-51.0 [facility] Comment on above: Order Comment: Speci men Type: BLOOD SPECIMENOrdering Facility: [facility] Address: [address] [place] [address] Performed By: #### 5 7021-8 ####[facility] ELLENURBANAJAMAL [id number] [place] [address] [place] Hemoglobin (Bld) [Mass/Vol] 10.0 g/dL Low 13.0-17.0 [facility] Comment on above: Order Comment: Speci men Type: BLOOD SPECIMENOrdering Facility: [facility] Address: [address] [place] [address] Performed By: #### 5 7021-8 ####[facility] [id number] [place] [address] [place] Immature granulocytes (Bld) [#/Vol] 0.06 10*3/uL Normal <0.10 [facility] Comment on above: Order Comment: Speci men Type: BLOOD SPECIMENOrdering Facility: [facility] Address: [address] [place] [address] Performed By: #### 5 7021-8 ####[facility] [id number] [place] [address] [place] Immature granulocytes/100 WBC (Bld) 0.6 % Normal [facility] Comment on above: Order Comment: Speci men Type: BLOOD SPECIMENOrdering Facility: [facility] Address: [address] [place] [address] Performed By: #### 5 7021-8 ####[facility] [id number] [place] [address] [place] Lymphocytes (Bld) [#/Vol] 1.01 10*3/uL Normal 1.00-4.00 [facility] Comment on above: Order Comment: Speci men Type: BLOOD SPECIMENOrdering Facility: [facility] Address: [address] [place] [address] Performed By: #### 5 7021-8 ####[facility]ENTER[facility] [id number] [place] [address] [place] Lymphocytes/100 WBC (Bld) 10.7 % Normal [facility] Comment on above: Order Comment: Speci men Type: BLOOD SPECIMENOrdering Facility: [facility] Address: [address] [place] [address] Performed By: #### 5 7021-8 ####[facility] [id number] [place] [address] [place] MCH (RBC) [Entitic mass] 29.6 pg Normal 26.0-34.0 [facility] Comment on above: Order Comment: Speci men Type: BLOOD SPECIMENOrdering Facility: [facility] Address: [address] [place] [address] Performed By: #### 5 7021-8 ####[facility] [id number] [place] [address] [place] MCHC (RBC) [Mass/Vol] 33.1 g/dL Normal 30.5-36.0 [facility] Comment on above: Order Comment: Speci men Type: BLOOD SPECIMENOrdering Facility: [facility] Address: [address] [place] [address] Performed By: #### 5 7021-8 ####[facility] [id number] [place] [address] [place] MCV (RBC) [Entitic vol] 89.3 fL Normal 80.0-100.0 C [facility] Comment on above: Order Comment: Speci men Type: BLOOD SPECIMENOrdering Facility: [facility] Address: [address] [place], [place] [address] Performed By: #### 5 7021-8 ####[facility] [id number] [place] [address] [place] Monocytes (Bld) [#/Vol] 0.58 10*3/uL Normal <0.87 [facility] Comment on above: Order Comment: Speci men Type: BLOOD SPECIMENOrdering Facility: [facility] Address: [address] [place] [address] Performed By: #### 5 7021-8 ####[facility] [id number] [place] [address] [place] Monocytes/100 WBC (Bld) 6.1 % Normal [facility] Comment on above: Order Comment: Speci men Type: BLOOD SPECIMENOrdering Facility: [facility] Address: [address] [place] [address] Performed By: #### 5 7021-8 ####[facility] [id number] [place] [address] [place] Neutrophils (Bld) [#/Vol] 7.41 10*3/uL Normal 1.45-7.50 [facility] Comment on above: Order Comment: Speci men Type: BLOOD SPECIMENOrdering Facility: [facility] Address: [address] [place] [address] Performed By: #### 5 7021-8 ####[facility] [id number] [place] [address] [place] Neutrophils/100 WBC (Bld) 78.4 % Normal [facility] Comment on above: Order Comment: Speci men Type: BLOOD SPECIMENOrdering Facility: [facility] Address: [address] [place] [address] Performed By: #### 5 7021-8 ####[facility] [id number] [place] [address] [place] Nucleated RBC (Bld) [#/Vol] 10*3/uL Normal <0.01 [facility] Comment on above: Order Comment: Speci men Type: BLOOD SPECIMENOrdering Facility: [facility] Address: [address] [place] [address] Performed By: #### 5 7021-8 ####[facility] GERTRUDE [id number] [place] [address] [place] Nucleated RBC/100 WBC (Bld) [Ratio] 0.0 /100 WBC Normal [facility] Comment on above: Order Comment: Speci men Type: BLOOD SPECIMENOrdering Facility: [facility] Address: [address] [place] [address] Performed By: #### 5 7021-8 ####[facility] JGNCTAINA [id number] [place] [address] [place] Platelet mean volume (Bld) [Entitic vol] 10.4 fL Normal 9.0-12.7 [facility] Comment on above: Order Comment: Speci men Type: BLOOD SPECIMENOrdering Facility: [facility] Address: [address] [place] [address] Performed By: #### 5 7021-8 ####[facility] ELLENURBANANCCOLTONA [id number] [place] [address] [place] Platelets (Bld) [#/Vol] 209 10*3/uL Normal 150-400 [facility] Comment on above: Order Comment: Speci men Type: BLOOD SPECIMENOrdering Facility: [facility] Address: [address] [place] [address] Performed By: #### 5 7021-8 ####[facility] HOS[facility]ITALNCLIA [id number] [place] [address] [place] RBC (Bld) [#/Vol] 3.38 10*6/uL Low 4.20-6.00 [facility] Comment on above: Order Comment: Speci men Type: BLOOD SPECIMENOrdering Facility: [facility] Address: [address] [place] [address] Performed By: #### 5 7021-8 ####[facility] HOSPITALNCLIA [id number] [place] [address] [place] WBC (Bld) [#/Vol] 9.46 10*3/uL Normal 3.70-11.00 [facility] Comment on above: Order Comment: Speci men Type: BLOOD SPECIMENOrdering Facility: [facility] Address: [address] [place] [address] Performed By: #### 5 7021-8 ####[facility]S HOSPITALNCA [id number] [place] [address] [place] CNOVon 04-03-2024 CNOV Normal [facility] CNOVSPon 04-03-2024 CNOVSP Normal [facility] CNPNon 03-30-2024 CNPN Normal [facility] ALBUMIN/CREATININE RATIO, UR INEon 03-27-2024 Albumin DL <= 20 mg/L (U) [Mass/Vol] 387.3 mg/L Normal [facility] Comment on above: Order Comment: Speci men Type: URINE SPECIMENOrdering Facility: [facility] Address: [address] [place] [address] Performed By: #### U ACR ####[facility] LABCLIA [id number] [place] [address] [place] Albumin/Creatinine (U) [Mass ratio] 424 mg/g High <30 [facility] Comment on above: Order Comment: Speci men Type: URINE SPECIMENOrdering Facility: [facility] Address: [address] [place] [address] Result Comment: Adul t Male and Female Nephrotic Criteria:<30 mg/g is considered normal to mildly [id number] mg/g is considered moderately increased>300 mg/g is considered severely increasedKDIGO. (2013). KDIGO 2012 Clinical Practice Guideline for the Evaluation and Management of Chronic Kidney Disease. Official Journal of the International Society of Nephrology, 3(1), 1-150. Performed By: #### U ACR ####[facility] LABCLIA [id number] [place] [address] [place] Creatinine (U) [Mass/Vol] 91.4 mg/dL Normal 20.0-300.0 [facility] Comment on above: Order Comment: Speci men Type: URINE SPECIMENOrdering Facility: [facility] Address: [address] [place] [address] Performed By: #### U ACR ####[facility] LABCLIA [id number] [place] [address] [place] CNOVon 03-27-2024 CNOV Normal [facility] XR SHLDR >/=3V AP/ELROY AP/OTH R LTon 03-27-2024 XR SHLDR >/=3V AP/ELROY AP/OTHR LT Normal [facility] CNPNon 03-21-2024 CNPN Normal [facility] CBC W Auto Differential pane l (Bld)on 03-20-2024 Basophils (Bld) [#/Vol] 0.04 10*3/uL Normal <0.11 [facility] Comment on above: Order Comment: Speci men Type: BLOOD SPECIMENOrdering Facility: [facility] Address: [address] [place] [address] Performed By: #### 5 7021-8 ####[facility] HOSPITALA [id number] [place] [address] [place] Basophils/100 WBC (Bld) 0.4 % Normal C [facility] Comment on above: Order Comment: Speci men Type: BLOOD SPECIMENOrdering Facility: [facility] Address: [address] [place] [address] Performed By: #### 5 7021-8 ####[facility] HOSPITALNCLIA [id number] [place] [address] [place] Differential cell count method Nom (Bld) Auto Normal [facility] Comment on above: Order Comment: Speci men Type: BLOOD SPECIMENOrdering Facility: [facility] Address: [address] [place] [address] Performed By: #### 5 7021-8 ####[facility] ELLENREYNA [id number] [place] [address] [place] Eosinophils (Bld) [#/Vol] 0.34 10*3/uL Normal <0.46 [facility] Comment on above: Order Comment: Speci men Type: BLOOD SPECIMENOrdering Facility: [facility] Address: [address] [place] [address] Performed By: #### 5 7021-8 ####[facility] HOSPITALKAVITAA [id number] [place] [address] [place] Eosinophils/100 WBC (Bld) 3.1 % Normal [facility] Comment on above: Order Comment: Speci men Type: BLOOD SPECIMENOrdering Facility: [facility] Address: [address] [place] [address] Performed By: #### 5 7021-8 ####[facility]S HOSPITALMingo [id number] [place] [address] [place] Erythrocyte distribution width (RBC) [Ratio] 14.6 % Normal 11.5-15.0 [facility] Comment on above: Order Comment: Speci men Type: BLOOD SPECIMENOrdering Facility: [facility] Address: [address] [place] [address] Performed By: #### 5 7021-8 ####[facility] CENTERLIA [id number] [place] [address] [place] Hematocrit (Bld) [Volume fraction] 31.0 % Low 39.0-51.0 [facility] Comment on above: Order Comment: Speci men Type: BLOOD SPECIMENOrdering Facility: [facility] Address: [address] [place] [address] Performed By: #### 5 7021-8 ####[facility] ELLENURBANANCLIA [id number] [place] [address] [place] Hemoglobin (Bld) [Mass/Vol] 10.3 g/dL Low 13.0-17.0 [facility] Comment on above: Order Comment: Speci men Type: BLOOD SPECIMENOrdering Facility: [facility] Address: [address] [place] [address] Performed By: #### 5 7021-8 ####[facility] CENTERLIA [id number] [place] [address] [place] Immature granulocytes (Bld) [#/Vol] 0.07 10*3/uL Normal <0.10 [facility] Comment on above: Order Comment: Speci men Type: BLOOD SPECIMENOrdering Facility: [facility] Address: [address] [place] [address] Performed By: #### 5 7021-8 ####[facility] CENTERLIA [id number] [place] [address] [place] Immature granulocytes/100 WBC (Bld) 0.6 % Normal [facility] Comment on above: Order Comment: Speci men Type: BLOOD SPECIMENOrdering Facility: [facility] Address: [address] [place] [address] Performed By: #### 5 7021-8 ####[facility] HOSPITALKAVITALIA [id number] [place] [address] [place] Lymphocytes (Bld) [#/Vol] 0.91 10*3/uL Low 1.00-4.00 [facility] Comment on above: Order Comment: Speci men Type: BLOOD SPECIMENOrdering Facility: [facility] Address: [address] [place] [address] Performed By: #### 5 7021-8 ####[facility] HOSPITALNCLIA [id number] [place] [address] [place] Lymphocytes/100 WBC (Bld) 8.3 % Normal [facility] Comment on above: Order Comment: Speci men Type: BLOOD SPECIMENOrdering Facility: [facility] Address: [address] [place] [address] Performed By: #### 5 7021-8 ####[facility]PITALNCS[facility] [id number] [place] [address] [place] MCH (RBC) [Entitic mass] 29.0 pg Normal 26.0-34.0 [facility] Comment on above: Order Comment: Speci men Type: BLOOD SPECIMENOrdering Facility: [facility] Address: [address] [place] [address] Performed By: #### 5 7021-8 ####[facility] [id number] [place] [address] [place] MCHC (RBC) [Mass/Vol] 33.2 g/dL Normal 30.5-36.0 [facility] Comment on above: Order Comment: Speci men Type: BLOOD SPECIMENOrdering Facility: [facility] Address: [address] [place] [address] Performed By: #### 5 7021-8 ####[facility] HOSPITALNCLI [id number] [place] [address] [place] MCV (RBC) [Entitic vol] 87.3 fL Normal 80.0-100.0 C [facility] Comment on above: Order Comment: Speci men Type: BLOOD SPECIMENOrdering Facility: [facility] Address: [address] [place] [address] Performed By: #### 5 7021-8 ####[facility]ITALNCSAN [facility] [id number] [place] [address] [place] Monocytes (Bld) [#/Vol] 0.86 10*3/uL Normal <0.87 [facility] Comment on above: Order Comment: Speci men Type: BLOOD SPECIMENOrdering Facility: [facility] Address: [address] [place] [address] Performed By: #### 5 7021-8 ####[facility] ELLENURBANANCCOLTONA [id number] [place] [address] [place] Monocytes/100 WBC (Bld) 7.9 % Normal [facility] Comment on above: Order Comment: Speci men Type: BLOOD SPECIMENOrdering Facility: [facility] Address: [address] [place] [address] Performed By: #### 5 7021-8 ####[facility] HOSPITALNCA [id number] [place] [address] [place] Neutrophils (Bld) [#/Vol] 8.68 10*3/uL High 1.45-7.50 [facility] Comment on above: Order Comment: Speci men Type: BLOOD SPECIMENOrdering Facility: [facility] Address: [address] [place] [address] Performed By: #### 5 7021-8 ####[facility] HOSPITALA [id number] [place] [address] [place] Neutrophils/100 WBC (Bld) 79.7 % Normal [facility] Comment on above: Order Comment: Speci men Type: BLOOD SPECIMENOrdering Facility: [facility] Address: [address] [place] [address] Performed By: #### 5 7021-8 ####[facility] HOSPITALA [id number] [place] [address] [place] Nucleated RBC (Bld) [#/Vol] 10*3/uL Normal <0.01 [facility] Comment on above: Order Comment: Speci men Type: BLOOD SPECIMENOrdering Facility: [facility] Address: [address] [place] [address] Performed By: #### 5 7021-8 ####[facility] HOSPITALNCLIA [id number] [place] [address] [place] Nucleated RBC/100 WBC (Bld) [Ratio] 0.0 /100 WBC Normal [facility] Comment on above: Order Comment: Speci men Type: BLOOD SPECIMENOrdering Facility: [facility] Address: [address] [place] [address] Performed By: #### 5 7021-8 ####[facility]ENTERCOLTON [id number] [place] [address] [place] Platelet mean volume (Bld) [Entitic vol] 9.7 fL Normal 9.0-12.7 [facility] Comment on above: Order Comment: Speci men Type: BLOOD SPECIMENOrdering Facility: [facility] Address: [address] [place] [address] Performed By: #### 5 7021-8 ####[facility] HOSPITALA [id number] [place] [address] [place] Platelets (Bld) [#/Vol] 181 10*3/uL Normal 150-400 [facility] Comment on above: Order Comment: Speci men Type: BLOOD SPECIMENOrdering Facility: [facility] Address: [address] [place] [address] Performed By: #### 5 7021-8 ####[facility] HOSPITALA [id number] [place] [address] [place] RBC (Bld) [#/Vol] 3.55 10*6/uL Low 4.20-6.00 [facility] Comment on above: Order Comment: Speci men Type: BLOOD SPECIMENOrdering Facility: [facility] Address: [address] [place] [address] Performed By: #### 5 7021-8 ####[facility] HOSPITALNCLI [id number] [place] [address] [place] WBC (Bld) [#/Vol] 10.90 10*3/uL Normal 3.70-11.00 [facility] Comment on above: Order Comment: Speci men Type: BLOOD SPECIMENOrdering Facility: [facility] Address: [address] [place] [address] Performed By: #### 5 7021-8 ####[facility] [id number] [place] [address] [place] Folate [facility]-20 24 Folate [Mass/Vol] ng/mL Normal >4.7 [facility] Comment on above: Order Comment: Speci men Type: BLOOD SPECIMENOrdering Facility: [facility] Address: [address] [place] [address] Result Comment: A re sult of > 20 ng/mL is not necessarily indicative of a pathologic or treatable condition: it reflects a limitation of the test methodology.Assay reference range: 4.8 to 24.2 ng/mL. Suitable for detection of folate deficiency.Reference:Folate III (Folate III) [package insert V 1.0 Indonesian]. [facility], [place], [place]: March 2015. Performed By: #### 5 0190-8, 2132-9, 2284-8 ####[facility] LABIA [id number] [place] [address] [place]#### 42799-5 ####[facility] LABIA [id number] [place] [address] [place] AMERICAAD[facility] [id number] [place] [address] [place] HbA1c (Bld)on 03-20-2024 Average glucose Estimated from glycated hemoglobin (Bld) [Mass/Vol] 148 mg/dL Normal [facility] Comment on above: Order Comment: Speci men Type: BLOOD SPECIMENOrdering Facility: [facility] Address: [address] [place] [address] Result Comment: eAG: (Estimated average glucose) is a calculated value from HgbA1c and is contact center representative of the average blood glucose level in the last 2-3 month period. Performed By: #### 5 5454-3 ####[facility] LABCLIA [id number] [place] [address] [place] HbA1c (Bld) [Mass fraction] 6.8 % High 4.3-5.6 [facility] Comment on above: Order Comment: Speci men Type: BLOOD SPECIMENOrdering Facility: [facility] Address: [address] [place] [address] Result Comment: Amer ican Diabetes Association guidelines indicate that patients with HgbA1c in the range 5.7-6.4% are at increased risk for development of diabetes, and intervention by lifestyle modification may be beneficial. HgbA1c greater or equal to 6.5% is considered diagnostic of diabetes. Performed By: #### 5 5454-3 ####[facility] LABCLIA [id number] [place] [address] [place] Hepatic function 2000 panelo n 03-20-2024 Albumin [Mass/Vol] 3.5 g/dL Low 3.9-4.9 [facility] Comment on above: Order Comment: Patricia quiroz Type: BLOOD SPECIMENOrdering Facility: [facility] Address: [address] [place] [address] Performed By: #### 2 4325-3 ####[facility] HOSPITALJAMAL [id number] [place] [address] [place] ALP [Catalytic activity/Vol] 48 U/L Normal 38-113 [facility] Comment on above: Order Comment: Agustinai men Type: BLOOD SPECIMENOrdering Facility: [facility] Address: [address] [place] [address] Performed By: #### 2 4325-3 ####[facility] HOSPITALKAVITALIA [id number] [place] [id number] [place] ALT [Catalytic activity/Vol] U/L Low 10-54 [facility] Comment on above: Order Comment: Speci men Type: BLOOD SPECIMENOrdering Facility: [facility] Address: [address] [place] [address] Performed By: #### 2 4325-3 ####[facility] HOSPITALNCLIA [id number] [place] [address] [place] AST [Catalytic activity/Vol] 8 U/L Low 14-40 [facility] Comment on above: Order Comment: Speci men Type: BLOOD SPECIMENOrdering Facility: [facility] Address: [address] [place] [address] Performed By: #### 2 4325-3 ####[facility]ITALNCS[facility] [id number] [place] [address] [place] Bilirubin [Mass/Vol] 0.6 mg/dL Normal 0.2-1.3 [facility] Comment on above: Order Comment: Speci men Type: BLOOD SPECIMENOrdering Facility: [facility] Address: [address] [place] [address] Performed By: #### 2 4325-3 ####[facility] HOSPITALNCLIA [id number] [place] [address] [place] Bilirubin.conjugated [Mass/Vol] 0.2 mg/dL High <0.2 [facility] Comment on above: Order Comment: Speci men Type: BLOOD SPECIMENOrdering Facility: [facility] Address: [address] [place], [place] [address] Performed By: #### 2 4325-3 ####[facility] HOSPITALNCLIA [id number] [place] [address] [place] Protein [Mass/Vol] 6.5 g/dL Normal 6.3-8.0 [facility] Comment on above: Order Comment: Speci men Type: BLOOD SPECIMENOrdering Facility: [facility] Address: [address] [place] [address] Performed By: #### 2 4325-3 ####[facility] HOSPITALA [id number] [place] [address] [place] Iron and Iron binding capaci ty panelon 03-20-2024 Iron [Mass/Vol] 37 ug/dL Low 41-186 [facility] Comment on above: Order Comment: Speci men Type: BLOOD SPECIMENOrdering Facility: [facility] Address: [address] [place] [address] Performed By: #### 5 0190-8, 2132-01, 2283-12 ####[facility] LABCLIA [id number] [place] [address] [place]#### 12392-2 ####[facility] LABCLIA [id number] [place] [address] [place] [facility] [id number] [place] [address] [place] Iron binding capacity [Mass/Vol] 200 ug/dL Low 232-386 [facility] Comment on above: Order Comment: Speci men Type: BLOOD SPECIMENOrdering Facility: [facility] Address: [address] [place] [address] Performed By: #### 5 0190-8, 2132-01, 2283-12 ####[facility] LABCLIA [id number] [place] [address] [place]#### 44020-4 ####[facility] LABCLIA [id number] [place] [address] [place] [facility] [id number] [place] [address] [place] Iron/TIBC [Molar ratio] 18.5 % Normal 15.0-57.0 C [facility] Comment on above: Order Comment: Speci men Type: BLOOD SPECIMENOrdering Facility: [facility] Address: [facility] [place] [address] Performed By: #### 5 0190-8, 2132-01, 2283-12 ####[facility] LABCLIA [id number] [place] [address] [place]#### 72508-7 ####[facility] LABCLIA [id number] [address] STATES OF [facility] [id number] [address] [place] Lipid 1996 panelon 4 Cholesterol [Mass/Vol] 119 mg/dL Normal <200 [facility] Comment on above: Order Comment: Speci men Type: BLOOD SPECIMENOrdering Facility: [facility] Address: [address] [place] [address] Result Comment: <200 mg/dL, Desirable 200-239 mg/dL, Borderline high>239 mg/dL, High Performed By: #### 5 0190-8, 2132-01, 2283-12 ####[facility] LABCLIA [id number] [address] [address] [place]#### 38576-8 ####[facility] LABCLIA [id number] [place] [address] [place] [facility] [id number] [place] [address] [place] Cholesterol in HDL [Mass/Vol] 36 mg/dL Low >39 [facility] Comment on above: Order Comment: Speci men Type: BLOOD SPECIMENOrdering Facility: [facility] Address: [address] [place] [address] Result Comment: 40-5 9 mg/dL, Acceptable>59 mg/dL, High: Negative risk factor for coronary heart disease<40 mg/dL, Low: Positive risk factor for coronary heart disease Performed By: #### 5 0190-8, 2132-01, 2283-12 ####[facility] LABCLIA [id number] [place] [address] [place]#### 18975-6 ####[facility] LABCLIA [id number] [address] STATES OF [facility] [id number] [place] [address] [place] Cholesterol in LDL [Mass/Vol] 56 mg/dL Normal <100 [facility] Comment on above: Order Comment: Speci men Type: BLOOD SPECIMENOrdering Facility: [facility] Address: [address] [place] [address] Result Comment: <100 mg/dL, Optimal 100-129 mg/dL, Near optimal/above optimal 130-159 mg/dL, Borderline high 160-189 mg/dL, High>189 mg/dL, Very highSecondary prevention optimal LDL Cholesterol levels are recommended to be < 70 mg/dL Performed By: #### 5 0190-8, 2132-01, 2283-12 ####[facility] LABCLIA [id number] [place] [address] [place]#### 80188-1 ####[facility] LABCLIA [id number] [place] [id number] [facility] [id number] [place] [address] [place] Cholesterol in LDL/Cholesterol in HDL [Mass ratio] 1.56 {ratio} Normal <2.54 [facility] Comment on above: Order Comment: Speci men Type: BLOOD SPECIMENOrdering Facility: [facility] Address: [address] [place] [address] Result Comment: Shemar cat:1. National Cholesterol Education Program ATP III Guideline At-A-Glance Quick Desk Reference: National Heart, Lung, and Blood [place]. National Institutes of Health. 2001: NIH Publication No. 01-3305.2. An International Atherosclerosis Society position paper: global recommendations for the management of dyslipidemia: executive summary, Atherosclerosis. 2014: 232(2):410-413. Performed By: #### 5 0190-8, 2132-01, 2283-12 ####[facility] LABCLIA [id number] [place] [address] [place]#### 80300-7 ####[facility] LABCLIA [id number] [id number] [place] [address] [place] Cholesterol in VLDL [Mass/Vol] 27 mg/dL Normal <30 [facility] Comment on above: Order Comment: Speci men Type: BLOOD SPECIMENOrdering Facility: [facility] Address: [address] [place] [address] Performed By: #### 5 0-8, 2132-01, 2283-12 ####[facility] [id number] [address] [place]#### [address]83-0 ####[facility] [id number] [address] [id number] [place] [address] [place] Cholesterol non HDL [Mass/Vol] 83 mg/dL Normal <130 [facility] Comment on above: Order Comment: Speci men Type: BLOOD SPECIMENOrdering Facility: [facility] Address: [address] [place] [address] Result Comment: <130 mg/dL, Optimal 130-159 mg/dL, Near optimal/above optimal 160-189 mg/dL, Borderline high 190-219 mg/dL, High>219 mg/dL, Very highSecondary prevention optimal non HDL Cholesterol levels are recommended to be <100 mg/dL Performed By: #### 5 189-8, 2132-01, 2283-12 ####[facility] LABCLIA [id number] [place] [address] [place]#### 87571-1 ####[facility] LABCLIA [id number] [id number] [place] [address] [place] Cholesterol.total/Cinthya sterol in HDL [Mass ratio] 3.31 {ratio} Normal <5.10 [facility] Comment on above: Order Comment: Speci men Type: BLOOD SPECIMENOrdering Facility: [facility] Address: [address] [place] [address] Performed By: #### 5 189-12, 2132-01, 2283-12 ####[facility] LABCLIA [id number] [place] [address] [place]#### 99943-2 ####[facility] LABCLIA [id number] [address] [id number] [place] [address] [place] FASTING TIME 12 hrs Normal [facility] Comment on above: Order Comment: Speci men Type: BLOOD SPECIMENOrdering Facility: [facility] Address: [address] [place] [address] Performed By: #### 5 8, 2132-01, 2283-12 ####[facility] LABCLIA [id number] [place] [address] [place]#### 43181-3 ####[facility] LABCLIA [id number] [address] STATES [facility] [id number] [place] [address] [place] Triglyceride [Mass/Vol] 133 mg/dL Normal <150 [facility] Comment on above: Order Comment: Speci men Type: BLOOD SPECIMENOrdering Facility: [facility] Address: [address] [place] [address] Result Comment: <150 mg/dL, Normal 150-199 mg/dL, Borderline high 200-499 mg/dL, High>499 mg/dL, Very high Performed By: #### 5 0190-8, 2132-01, 2283-12 ####[facility] LABCLIA [id number] [place] [address] [place]#### 86894-8 ####[facility] LABCLIA [id number] [address] [id number] [place] [address] [place] Vit B12 [facility] 11-11-2 024 Cobalamin (Vitamin B12) [Mass/Vol] 1060 pg/mL Normal 232-1245 [facility] Comment on above: Order Comment: Speci men Type: BLOOD SPECIMENOrdering Facility: [facility] Address: [address] [place] [address] Performed By: #### 5 0190-8, 2132-01, 2283-12 ####[facility] LABCLIA [id number] [place] [address] [place]#### 15100-0 ####[facility] LABCLIA [id number] [place] [address] [place] [facility] [id number] [place] [address] [place] CBC W Auto Differential pane l (Bld)on 03-06-2024 Basophils (Bld) [#/Vol] 0.05 10*3/uL Normal <0.11 [facility] Comment on above: Order Comment: Speci men Type: BLOOD SPECIMENOrdering Facility: [facility] Address: [address] [place] [address] Performed By: #### 5 7021-8 ####[facility] [id number] [place] [address] [place] Basophils/100 WBC (Bld) 0.6 % Normal [facility] Comment on above: Order Comment: Speci men Type: BLOOD SPECIMENOrdering Facility: [facility] Address: [address] [place] [address] Performed By: #### 5 7021-8 ####[facility] [id number] [place] [address] [place] Differential cell count method Nom (Bld) Auto Normal [facility] Comment on above: Order Comment: Speci men Type: BLOOD SPECIMENOrdering Facility: [facility] Address: [address] [place] [address] Performed By: #### 5 7021-8 ####[facility] [id number] [place] [address] [place] Eosinophils (Bld) [#/Vol] 0.40 10*3/uL Normal <0.46 [facility] Comment on above: Order Comment: Speci men Type: BLOOD SPECIMENOrdering Facility: [facility] Address: [address] [place] [address] Performed By: #### 5 7021-8 ####[facility] [id number] [place] [address] [place] Eosinophils/100 WBC (Bld) 4.8 % Normal [facility] Comment on above: Order Comment: Speci men Type: BLOOD SPECIMENOrdering Facility: [facility] Address: [address] [place] [address] Performed By: #### 5 7021-8 ####[facility] [id number] [place] [address] [place] Erythrocyte distribution width (RBC) [Ratio] 15.0 % Normal 11.5-15.0 [facility] Comment on above: Order Comment: Speci men Type: BLOOD SPECIMENOrdering Facility: [facility] Address: [address] [place] [address] Performed By: #### 5 7021-8 ####[facility] [id number] [place] [address] [place] Hematocrit (Bld) [Volume fraction] 33.3 % Low 39.0-51.0 [facility] Comment on above: Order Comment: Speci men Type: BLOOD SPECIMENOrdering Facility: [facility] Address: [address] [place] [address] Performed By: #### 5 7021-8 ####[facility] [id number] [place] [address] [place] Hemoglobin (Bld) [Mass/Vol] 10.8 g/dL Low 13.0-17.0 [facility] Comment on above: Order Comment: Speci men Type: BLOOD SPECIMENOrdering Facility: [facility] Address: [address] [place] [address] Performed By: #### 5 7021-8 ####[facility] [id number] [place] [address] [place] Immature granulocytes (Bld) [#/Vol] 0.06 10*3/uL Normal <0.10 [facility] Comment on above: Order Comment: Speci men Type: BLOOD SPECIMENOrdering Facility: [facility] Address: [address] [place] [address] Performed By: #### 5 7021-8 ####[facility] MILLWNCLIA [id number] [address] [place] Immature granulocytes/100 WBC (Bld) 0.7 % Normal [facility] Comment on above: Order Comment: Speci men Type: BLOOD SPECIMENOrdering Facility: [facility] Address: [address] [place] [address] Performed By: #### 5 7021-8 ####[facility]ITAL[facility]CL[facility] [id number] [place] [address] [place] Lymphocytes (Bld) [#/Vol] 1.26 10*3/uL Normal 1.00-4.00 [facility] Comment on above: Order Comment: Speci men Type: BLOOD SPECIMENOrdering Facility: [facility] Address: [address] [place] [address] Performed By: #### 5 7021-8 ####[facility]ENTERLIA [id number] [place] [address] [place] Lymphocytes/100 WBC (Bld) 15.2 % Normal [facility] Comment on above: Order Comment: Speci men Type: BLOOD SPECIMENOrdering Facility: [facility] Address: [address] [place] [address] Performed By: #### 5 7021-8 ####[facility]ENTERLIA [id number] [place] [address] [place] MCH (RBC) [Entitic mass] 29.3 pg Normal 26.0-34.0 [facility] Comment on above: Order Comment: Speci men Type: BLOOD SPECIMENOrdering Facility: [facility] Address: [address] [place] [address] Performed By: #### 5 7021-8 ####[facility] CENTERLIA [id number] [place] [address] [place] MCHC (RBC) [Mass/Vol] 32.4 g/dL Normal 30.5-36.0 [facility] Comment on above: Order Comment: Speci men Type: BLOOD SPECIMENOrdering Facility: [facility] Address: [address] [place] [address] Performed By: #### 5 7021-8 ####[facility] ELLENURBANAJAMAL [id number] [place] [address] [place] MCV (RBC) [Entitic vol] 90.5 fL Normal 80.0-100.0 C [facility] Comment on above: Order Comment: Speci men Type: BLOOD SPECIMENOrdering Facility: [facility] Address: [address] [place] [address] Performed By: #### 5 7021-8 ####[facility]ITALKAVITAS[facility] [id number] [place] [address] [place] Monocytes (Bld) [#/Vol] 0.67 10*3/uL Normal <0.87 [facility] Comment on above: Order Comment: Speci men Type: BLOOD SPECIMENOrdering Facility: [facility] Address: [address] [place] [address] Performed By: #### 5 7021-8 ####[facility] HOSPITALJAMAL [id number] [place] [address] [place] Monocytes/100 WBC (Bld) 8.1 % Normal [facility] Comment on above: Order Comment: Speci men Type: BLOOD SPECIMENOrdering Facility: [facility] Address: [address] [place] [address] Performed By: #### 5 7021-8 ####[facility]ITALA [id number] [place] [address] [place] Neutrophils (Bld) [#/Vol] 5.86 10*3/uL Normal 1.45-7.50 [facility] Comment on above: Order Comment: Speci men Type: BLOOD SPECIMENOrdering Facility: [facility] Address: [address] [place] [address] Performed By: #### 5 7021-8 ####[facility]ITAL[facility] [id number] [place] [address] [place] Neutrophils/100 WBC (Bld) 70.6 % Normal [facility] Comment on above: Order Comment: Speci men Type: BLOOD SPECIMENOrdering Facility: [facility] Address: [address] [place] [address] Performed By: #### 5 7021-8 ####[facility] [id number] [place] [address] [place] Nucleated RBC (Bld) [#/Vol] 10*3/uL Normal <0.01 [facility] Comment on above: Order Comment: Speci men Type: BLOOD SPECIMENOrdering Facility: [facility] Address: [address] [place] [address] Performed By: #### 5 7021-8 ####[facility] [id number] [place] [address] [place] Nucleated RBC/100 WBC (Bld) [Ratio] 0.0 /100 WBC Normal [facility] Comment on above: Order Comment: Speci men Type: BLOOD SPECIMENOrdering Facility: [facility] Address: [address] [place] [address] Performed By: #### 5 7021-8 ####[facility] [id number] [place] [address] [place] Platelet mean volume (Bld) [Entitic vol] 10.0 fL Normal 9.0-12.7 [facility] Comment on above: Order Comment: Speci men Type: BLOOD SPECIMENOrdering Facility: [facility] Address: [address] [place] [address] Performed By: #### 5 7021-8 ####[facility] HAYLEEA [id number] [place] [address] [place] Platelets (Bld) [#/Vol] 187 10*3/uL Normal 150-400 [facility] Comment on above: Order Comment: Speci men Type: BLOOD SPECIMENOrdering Facility: [facility] Address: [address] [place] [address] Performed By: #### 5 7021-8 ####[facility] JGNCCOLTONA [id number] [place] [address] [place] RBC (Bld) [#/Vol] 3.68 10*6/uL Low 4.20-6.00 [facility] Comment on above: Order Comment: Speci men Type: BLOOD SPECIMENOrdering Facility: [facility] Address: [address] [place] [address] Performed By: #### 5 7021-8 ####[facility] ELLENURBANANCLIA [id number] [place] [address] [place] WBC (Bld) [#/Vol] 8.30 10*3/uL Normal 3.70-11.00 [facility] Comment on above: Order Comment: Speci men Type: BLOOD SPECIMENOrdering Facility: [facility] Address: [address] [place] [address] Performed By: #### 5 7021-8 ####[facility] ELLENURBANANCLIA [id number] [place] [address] [place] [facility] [place] CNOVSPon 03-06-2024 CNOVSP Normal [facility] XR Ribs - right Views and Ch est PAon 01-26-2024 IMPRESSION: Fractures of the lateral right eighth and ninth ribs. No pleural effusion or pneumothorax. Kaiawhina Kohanga Reo: DAVID Transcribe Date/Time: Jan 26 2024 1:22P Dictated by : PETRA CARPENTER MD This examination was interpreted and the report reviewed and electronically signed by: PETRA CARPENTER MD on Jan 26 2024 1:24PM [facility] DIVISION OF RADIOLOGY * * *Final Report* * * DATE OF EXAM: Jan 26 2024 1:07PM WOX [id number] - XR RIB/CHST 3V AP RIB/OBL/CHST R / PROCEDURE REASON: Rib pain on right side * * * * Physician Interpretation * * * * EXAMINATION: X-ray chest and right ribs Clinical History: Rib pain on right side M: XC1_4 Comparison: Chest x-ray 07/09/2022 RESULT: Lines, tubes, and devices: None. Lungs and pleura: No consolidation. No lung mass. No pleural effusion or pneumothorax. Cardiomediastinal silhouette: Stable cardiomediastinal silhouette. Musculoskeletal: Fractures of the lateral right eighth and ninth ribs DIVISION OF RADIOLOGY Provider, Luda Quach [facility] - 01/26/2024 * * *Final Report* * * DATE OF EXAM: Jan 26 2024 1:07PM WOX 5244 - XR RIB/CHST 3V AP RIB/OBL/CHST R / PROCEDURE REASON: Rib pain on right side * * * * Physician Interpretation * * * * EXAMINATION: X-ray chest and right ribs Clinical History: Rib pain on right side M: XC1_4 Comparison: Chest x-ray 07/09/2022 RESULT: Lines, tubes, and devices: None. Lungs and pleura: No consolidation. No lung mass. No pleural effusion or pneumothorax. Cardiomediastinal silhouette: Stable cardiomediastinal silhouette. Musculoskeletal: Fractures of the lateral right eighth and ninth ribs IMPRESSION IMPRESSION: Fractures of the lateral right eighth and ninth ribs. No pleural effusion or pneumothorax. Kaiawhina Kohanga Reo: PSCB Transcribe Date/Time: Jan 26 2024 1:22P Dictated by : PETRA CARPENTER MD This examination was interpreted and the report reviewed and electronically signed by: PETRA CARPENTER MD on Jan 26 2024 1:24PM [facility] Radiology Study observation (narrative) Nasir pacheco [facility] XR Ribs - right Views and Ch est PAOrdered By: Ccf Provider on 01-26-2024 [facility] CBC W Auto Differential pane l (Bld)on 01-17-2024 Basophils (Bld) [#/Vol] 0.03 10*3/uL [facility] Basophils/100 WBC (Bld) 0.4 % C [facility] Differential cell count method Nom (Bld) Auto [facility] Eosinophils (Bld) [#/Vol] 0.27 10*3/uL [facility] Eosinophils/100 WBC (Bld) 3.9 % [facility] Erythrocyte distribution width (RBC) [Ratio] 15.2 % High 11.5 - 15.0 % [facility] Hematocrit (Bld) [Volume fraction] 29.6 % Low 39.0 - 51.0 % [facility] Hemoglobin (Bld) [Mass/Vol] 9.9 g/dL Low 13.0 - 17.0 g/dL [facility] Immature granulocytes (Bld) [#/Vol] 0.04 10*3/uL [facility] Immature granulocytes/100 WBC (Bld) 0.6 % [facility] Interpretation and review of laboratory results Abnormal [facility] Lymphocytes (Bld) [#/Vol] 1.02 10*3/uL [facility] Lymphocytes/100 WBC (Bld) 14.6 % [facility] MCH (RBC) [Entitic mass] 28.9 pg 26.0 - 34.0 pg [facility] MCHC (RBC) [Mass/Vol] 33.4 g/dL 30.5 - 36.0 g/dL [facility] MCV (RBC) [Entitic vol] 86.5 fL 80.0 - 100.0 fL [facility] Monocytes (Bld) [#/Vol] 0.59 10*3/uL [facility] Monocytes/100 WBC (Bld) 8.4 % C [facility] Neutrophils (Bld) [#/Vol] 5.04 10*3/uL [facility] Neutrophils/100 WBC (Bld) 72.1 % [facility] Nucleated RBC (Bld) [#/Vol] [facility] Nucleated RBC/100 WBC (Bld) [Ratio] 0.0 % /100 WBC [facility] Platelet mean volume (Bld) [Entitic vol] 10.0 fL 9.0 - 12.7 fL [facility] Platelets (Bld) [#/Vol] 172 10*3/uL [facility] RBC (Bld) [#/Vol] 3.42 10*6/uL Low 4.20 - 6.00 m/uL [facility] WBC (Bld) [#/Vol] 6.99 10*3/uL [facility] Comprehensive metabolic 2000 panelOrdered By: Nakia Loza on 01-17-2024 Albumin [Mass/Vol] 3.5 g/dL Low 3.9 - 4.9 g/dL [facility] ALP [Catalytic activity/Vol] 49 U/L 38 - 113 U/L [facility] ALT [Catalytic activity/Vol] U/L Low 10 - 54 U/L [facility] Anion gap [Moles/Vol] 10 mmol/L 8 - 15 mmol/L [facility] AST [Catalytic activity/Vol] 9 U/L Low 14 - 40 U/L [facility] Bilirubin [Mass/Vol] 0.5 mg/dL 0.2 - 1 .3 mg/dL [facility] Calcium [Mass/Vol] 9.4 mg/dL 8.5 - 10. 2 mg/dL [facility] Chloride [Moles/Vol] 105 mmol/L 98 - 10 7 mmol/L [facility] CO2 [Moles/Vol] 23 mmol/L 22 - 30 mmol/L [facility] Creatinine [Mass/Vol] 1.86 mg/dL High 0.73 - 1.22 mg/dL [facility] GFR/1.73 sq M.predicted among non-blacks MDRD (S/P/Bld) [Vol rate/Area] 35 mL/min/{1.73_m2} Low - PINF [facility] Comment on above: Estimated Glomerular Filtration Rate (eGFR) is calculated using the 2020 CKD-EPI creatinine equation. This equation utilizes serum creatinine, sex, and age as parameters. The creatinine assay has traceable calibration to isotope dilution-mass spectrometry. Refer to KDIGO guidelines for clinical interpretation. In patients with unstable renal function, e.g. those with acute kidney injury, the eGFR may not accurately reflect actual GFR. Glucose [Mass/Vol] 120 mg/dL High 74 - 99 mg/dL [facility] Comment on above: The [place] Diabete s Association (ADA) provides guidance for cutoff values for fasting glucose and random glucose. The ADA defines fasting as no caloric intake for at least 8 hours. Fasting plasma glucose results between 100 to 125 mg/dL indicate increased risk for diabetes (prediabetes). Fasting plasma glucose results greater than or equal to 126 mg/dL meet the criteria for diagnosis of diabetes. In the absence of unequivocal hyperglycemia, results should be confirmed by repeat testing. In a patient with classic symptoms of hyperglycemia or hyperglycemic crisis, random plasma glucose results greater than or equal to 200 mg/dL meet the criteria for diagnosis of diabetes. Reference: Standards of Medical Care in Diabetes 2016, [place] [employer]. Diabetes Care. 2016.39(Suppl 1). Interpretation and review of laboratory results Abnormal [facility] Potassium [Moles/Vol] 5.0 mmol/L 3.7 - 5.1 mmol/L [facility] Protein [Mass/Vol] 6.3 g/dL 6.3 - 8.0 g/dL [facility] Sodium [Moles/Vol] 138 mmol/L 136 - 144 mmol/L [facility] Urea nitrogen [Mass/Vol] 30 mg/dL High 9 - 24 mg/dL [facility] CBC W Auto Differential pane l (Bld)on 11-29-2023 Basophils (Bld) [#/Vol] 0.05 10*3/uL [facility] Basophils/100 WBC (Bld) 0.6 % [facility] Differential cell count method Nom (Bld) Auto [facility] Eosinophils (Bld) [#/Vol] 0.41 10*3/uL [facility] Eosinophils/100 WBC (Bld) 5.0 % [facility] Erythrocyte distribution width (RBC) [Ratio] 15.0 % 11.5 - 15.0 % [facility] Hematocrit (Bld) [Volume fraction] 27.5 % Low 39.0 - 51.0 % [facility] Hemoglobin (Bld) [Mass/Vol] 9.2 g/dL Low 13.0 - 17.0 g/dL [facility] Immature granulocytes (Bld) [#/Vol] 0.04 10*3/uL [facility] Immature granulocytes/100 WBC (Bld) 0.5 % [facility] Interpretation and review of laboratory results Abnormal [facility] Lymphocytes (Bld) [#/Vol] 1.06 10*3/uL [facility] Lymphocytes/100 WBC (Bld) 13.0 % [facility] MCH (RBC) [Entitic mass] 28.6 pg 26.0 - 34.0 pg [facility] MCHC (RBC) [Mass/Vol] 33.5 g/dL 30.5 - 36.0 g/dL [facility] MCV (RBC) [Entitic vol] 85.4 fL 80.0 - 100.0 fL [facility] Monocytes (Bld) [#/Vol] 0.59 10*3/uL [facility] Monocytes/100 WBC (Bld) 7.2 % C [facility] Neutrophils (Bld) [#/Vol] 6.03 10*3/uL [facility] Neutrophils/100 WBC (Bld) 73.7 % [facility] Nucleated RBC (Bld) [#/Vol] NINF [facility] Nucleated RBC/100 WBC (Bld) [Ratio] 0.0 % /100 WBC [facility] Platelet mean volume (Bld) [Entitic vol] 10.3 fL 9.0 - 12.7 fL [facility] Platelets (Bld) [#/Vol] 186 10*3/uL [facility] RBC (Bld) [#/Vol] 3.22 10*6/uL Low 4.20 - 6.00 m/uL [facility] WBC (Bld) [#/Vol] 8.18 10*3/uL [facility] Comprehensive metabolic 2000 panelOrdered By: Nakia Loza on 11-29-2023 Albumin [Mass/Vol] 3.6 g/dL Low 3.9 - 4.9 g/dL [facility] ALP [Catalytic activity/Vol] 50 U/L 38 - 113 U/L [facility] ALT [Catalytic activity/Vol] U/L Low 10 - 54 U/L [facility] Anion gap [Moles/Vol] 8 mmol/L 8 - 15 mmol/L [facility] AST [Catalytic activity/Vol] 7 U/L Low 14 - 40 U/L [facility] Bilirubin [Mass/Vol] 0.3 mg/dL 0.2 - 1 .3 mg/dL [facility] Calcium [Mass/Vol] 8.9 mg/dL 8.5 - 10. 2 mg/dL [facility] Chloride [Moles/Vol] 104 mmol/L 98 - 10 7 mmol/L [facility] CO2 [Moles/Vol] 26 mmol/L 22 - 30 mmol/L [facility] Creatinine [Mass/Vol] 1.68 mg/dL High 0.73 - 1.22 mg/dL [facility] GFR/1.73 sq M.predicted among non-blacks MDRD (S/P/Bld) [Vol rate/Area] 40 mL/min/{1.73_m2} Low - PINF [facility] Comment on above: Estimated Glomerular Filtration Rate (eGFR) is calculated using the 2020 CKD-EPI creatinine equation. This equation utilizes serum creatinine, sex, and age as parameters. The creatinine assay has traceable calibration to isotope dilution-mass spectrometry. Refer to KDIGO guidelines for clinical interpretation. In patients with unstable renal function, e.g. those with acute kidney injury, the eGFR may not accurately reflect actual GFR. Glucose [Mass/Vol] 143 mg/dL High 74 - 99 mg/dL [facility] Comment on above: The [place] Diabete s Association (ADA) provides guidance for cutoff values for fasting glucose and random glucose. The ADA defines fasting as no caloric intake for at least 8 hours. Fasting plasma glucose results between 100 to 125 mg/dL indicate increased risk for diabetes (prediabetes). Fasting plasma glucose results greater than or equal to 126 mg/dL meet the criteria for diagnosis of diabetes. In the absence of unequivocal hyperglycemia, results should be confirmed by repeat testing. In a patient with classic symptoms of hyperglycemia or hyperglycemic crisis, random plasma glucose results greater than or equal to 200 mg/dL meet the criteria for diagnosis of diabetes. Reference: Standards of Medical Care in Diabetes 2016, [place] Diabetes Association. Diabetes Care. 2016.39(Suppl 1). Interpretation and review of laboratory results Abnormal [facility] Potassium [Moles/Vol] 4.6 mmol/L 3.7 - 5.1 mmol/L [facility] Protein [Mass/Vol] 6.2 g/dL Low 6.3 - 8.0 g/dL [facility] Sodium [Moles/Vol] 138 mmol/L 136 - 144 mmol/L [facility] Urea nitrogen [Mass/Vol] 30 mg/dL High 9 - 24 mg/dL [facility] LACTATE DEHYDROGENASEon 2 LDH [Catalytic activity/Vol] 141 U/L 135 - 225 U/L [facility] LDH [Catalytic activity/Vol] on 11-29-2023 Interpretation and review of laboratory results Normal [facility] Albumin Elph [Mass/Vol]Order ed By: Nakia aLboy on 08-24-2023 Albumin [Mass/Vol] 3.0 g/dL 2.9-4.4 [facility] Basophil percentageOrdered B y: Nakia Laboy on 08-24-2023 Basophil percentage 3.7 mg/dL 2.5-4.9 [facility] Chloride [Moles/Vol] 110 mmol/L 98-107 [facility] Glucose [Mass/Vol] 139 mg/dL 74-106 [facility] Comment on above: Fasting Glucose resu lt greater than or equal to 126 mg/dL suggests DIABETES MELLITUS per A.D.A. criteria. Potassium [Moles/Vol] 4.4 mmol/L 3.5-5.1 [facility] Sodium [Moles/Vol] 139 mmol/L 136-145 [facility] Interpretation of serum or p lasma protein pattern by immunofixation (narrative resultOrdered By: Nakia Laboy on 08-24-2023 Protein Fractions Immunofixation Carlos [Interp] Not Observed g/dL Not Observed [facility] Laboratory - Chemistry and C hemistry - challengeOrdered By: Nakia Laboy on 08-24-2023 CO2 [Moles/Vol] 25.0 mmol/L 21.0-32.0 [facility] Urea nitrogen/Creatinine [Mass ratio] 13.1 mg/mg 10-20 [facility] No Panel InformationOrdered By: Nakia Laboy on 08-24-2023 Addendum Document Comment . [facility] Comment on above: Protein electrophore sis scan will follow via computer,mail, or research and development specialist delivery.Performed at: [address] [id number] Director: Patrice Brown PhD, Phone: [phone] Immunoglobulin M 97 mg/dL 15-143 [facility] Parathyroid Hormone (Intact) 61.3 pg/mL 18.4-80.1 [facility] Estimated GFR (MDRD) Amer 44 mL/min >60 [facility] Comment on above: GFR Calc Estimated GFR (MDRD) Non-Af Amer 36 mL/min >60 [facility] Comment on above: Non- GFR Calc Serum [id number]-2-srsdwech measu rement by electrophoresisOrdered By: Nakia Laboy on 08-24-2023 Alpha 1 globulin Elph [Mass/Vol] 0.2 g/dL 0.0-0.4 [facility] Alpha 1 globulin Elph [Mass/Vol] 0.8 g/dL 0.4-1.0 [facility] Serum globulin measurement ( mass/volume)Ordered By: Nakia Laboy on 08-24-2023 Globulin (S) [Mass/Vol] 2.8 g/dL 2.2-3.9 [facility] Serum or plasma IgA measurem ent (mass/volume)Ordered By: Nakia Laboy on 08-24-2023 IgA [Mass/Vol] 430 mg/dL 61-437 [facility] Serum or plasma IgG measurem ent (mass/volume)Ordered By: Nakia Laboy on 08-24-2023 IgG [Mass/Vol] 988 mg/dL [phone] [facility] Serum or plasma beta globuli n measurement by electrophoresis (mass/volume)Ordered By: Nakia Laboy on 08-24-2023 Beta globulin Elph [Mass/Vol] 0.9 g/dL 0.7-1.3 [facility] Serum or plasma calcium pedrito urement (mass/volume)Ordered By: Nakia Laboy on 08-24-2023 Calcium [Mass/Vol] 8.6 mg/dL 8.5-10.1 [facility] Serum or plasma creatinine m easurement (mass/volume)Ordered By: Nakia Laboy on 08-24-2023 Creatinine [Mass/Vol] 1.91 mg/dL 0.70-1.30 [facility] Comment on above: The validity of the calculated GFR & GFRAA in patients over 70 years has not been determined. Clinical correlation is essential. Serum or plasma gamma globul in measurement by electrophoresis (mass/volume)Ordered By: Nakia Laboy on 08-24-2023 Gamma globulin Elph [Mass/Vol] 0.9 g/dL 0.4-1.8 [facility] Serum or plasma immunoelectr ophoresis interpretation (nominal result)Ordered By: Nakia Laboy on 04-16-2024 Interpretation IEP [Interp] Comment: . [facility] Comment on above: Presence of monoclon al protein is unclear at this time. Suggestrepeat in 3 to 6 months if clinically indicated. Serum or plasma urea nitroge n measurement (mass/volume)Ordered By: Nakia Laboy on 08-24-2023 Urea nitrogen [Mass/Vol] 25 mg/dL 7-18 [facility] Thin prep Papanicolaou smear with manual screeningOrdered By: Nakia Laboy on 08-24-2023 Thin prep Papanicolaou smear with manual screening 1.1 0.7-1.7 [facility] Thin prep Papanicolaou smear with manual screening 2.7 g/dL 3.2-5.0 [facility] Total protein bloodOrdered B y: Nakia Laboy on 08-24-2023 Protein [Mass/Vol] 5.8 g/dL 6.0-8.5 [facility] 24 hour urine alpha 2 globul in/total protein ratio by electrophoresis (mass fraction)Ordered By: Nakia Laboy on 07-20-2023 Alpha 2 globulin Elph (24H U) [Mass fraction] 5.4 % . [facility] 24 hour urine beta globulin/ total protein ratio by electrophoresis (mass fraction)Ordered By: Nakia Laboy on 07-20-2023 Beta globulin Elph (24H U) [Mass fraction] 16.1 % . [facility] 24 hour urine gamma globulin /total protein ratio by electrophoresis (mass fraction)Ordered By: Nakia Laboy on 07-20-2023 Gamma globulin Elph (24H U) [Mass fraction] 10.2 % . [facility] No Panel InformationOrdered By: Nakia Laboy on 07-20-2023 Urine Immunofixation PEP Note Comment . [facility] Comment on above: Protein electrophore sis scan will follow via computer,mail, or research and development specialist delivery.Performed at: [facility] [address] [id number] Director: Patrice Brown PhD, Phone: [phone] Urine Microalbumin/Creatinine Ratio 424.0 mg/g CRE <30 [facility] Thin prep Papanicolaou smear with manual screeningOrdered By: Nakia Laboy on 07-20-2023 Thin prep Papanicolaou smear with manual screening 385.0 mg/L NO RANGE EST. [facility] Urine albumin/total protein mass ratio by electrophoresisOrdered By: Nakia Laboy on 07-20-2023 Albumin Elph (U) [Mass fraction] 66.7 % . [facility] Urine alpha 1 globulin/total protein ratio by electrophoresis (mass fraction)Ordered By: Nakia Laboy on 07-20-2023 Alpha 1 globulin Elph (U) [Mass fraction] 1.5 % . [facility] Urine creatinine measurement (mass/volume)Ordered By: Nakia Laboy on 07-20-2023 Creatinine (U) [Mass/Vol] 90.80 mg/dL NO RANGE EST. [facility] Urine monoclonal protein/tot al protein mass ratio by electrophoresisOrdered By: Nakia Laboy on 07-20-2023 Protein.monoclonal Elph (U) [Mass fraction] See comment [facility] Comment on above: NOT OBSERVED Urine protein measurement (m ass/volume)Ordered By: Nakia Laboy on 07-20-2023 Protein (U) [Mass/Vol] 57.9 mg/dL Not Estab. [facility] MRI BRAIN WO IVCONon 023 [facility] XR CHEST 2V FRONTAL/LATon [facility] XR Chest PA and Lateralon IMPRESSION: No acute radiographic abnormality. Kaiawhina Kohanga Reo: DAVID Transcribe Date/Time: Jul 09 2022 1:47P Dictated by : PETRA CARPENTER MD This examination was interpreted and the report reviewed and electronically signed by: PETRA CARPENTER MD on Jul 09 2022 1:49PM [facility] DIVISION OF RADIOLOGY * * *Final Report* * * DATE OF EXAM: Jul 09 2022 1:37PM WOX 5291 - XR CHEST 2V FRONTAL/LAT / PROCEDURE REASON: multiple diagnoses * * * * Physician Interpretation * * * * EXAMINATION: CHEST RADIOGRAPH (2 VIEW FRONTAL & LATERAL) CLINICAL HISTORY: URI, acute Acute cough MQ: XC2_6 EXAM DATE/TIME: 07/09/2022 1:37 PM COMPARISON: Chest x-ray 02/14/2021 RESULT: Lines, tubes, and devices: None. Lungs and pleura: No consolidation. No lung mass. No pleural effusion. No pneumothorax. Cardiomediastinal silhouette: Normal cardiomediastinal silhouette. Bones and soft tissues: Unremarkable. DIVISION OF RADIOLOGY Provider, Ldua baptiste [place] - 07/09/2022 * * *Final Report* * * DATE OF EXAM: Jul 09 2022 1:37PM WOX 5291 - XR CHEST 2V FRONTAL/LAT / PROCEDURE REASON: multiple diagnoses * * * * Physician Interpretation * * * * EXAMINATION: CHEST RADIOGRAPH (2 VIEW FRONTAL & LATERAL) CLINICAL HISTORY: URI, acute Acute cough MQ: XC2_6 EXAM DATE/TIME: 07/09/2022 1:37 PM COMPARISON: Chest x-ray 02/14/2021 RESULT: Lines, tubes, and devices: None. Lungs and pleura: No consolidation. No lung mass. No pleural effusion. No pneumothorax. Cardiomediastinal silhouette: Normal cardiomediastinal silhouette. Bones and soft tissues: Unremarkable. IMPRESSION IMPRESSION: No acute radiographic abnormality. Kaiawhina Kohanga Reo: PSCB Transcribe Date/Time: Jul 09 2022 1:47P Dictated by : PETRA CARPENTER MD This examination was interpreted and the report reviewed and electronically signed by: PETRA CARPENTER MD on Jul 09 2022 1:49PM EST [facility] Radiology Study observation (narrative) Nasir pacheco [facility] XR Chest PA and LateralOrder ed By: Ccf Provider on 07-09-2022 [facility] Basophil percentageon 2021 Chloride [Moles/Vol] 102 mmol/L 98-107 [facility] Work Phone: Glucose [Mass/Vol] 199 mg/dL 74-106 [facility] Work Phone: Comment on above: Fasting Glucose resu lt greater than or equal to 126 mg/dL suggests DIABETES MELLITUS per A.D.A. criteria. Potassium [Moles/Vol] 4.2 mmol/L 3.5-5.1 [facility] Work Phone: Sodium [Moles/Vol] 136 mmol/L 136-145 [facility] Work Phone: Laboratory - Chemistry and C hemistry - challengeon 12-02-2021 CO2 [Moles/Vol] 26.0 mmol/L 21.0-32.0 [facility] Work Phone: Urea nitrogen/Creatinine [Mass ratio] 12.1 mg/mg 10-20 [facility] Work Phone: No Panel Informationon 12-02 Estimated GFR (MDRD) Amer 49 mL/min >60 [facility] Work Phone: Comment on above: GFR Calc Estimated GFR (MDRD) Non-Af Amer 40 mL/min >60 [facility] Work Phone: Comment on above: Non- GFR Calc Serum or plasma calcium pedrito urement (mass/volume)on 12-02-2021 Calcium [Mass/Vol] 9.3 mg/dL 8.5-10.1 [facility] Work Phone: Serum or plasma creatinine m easurement (mass/volume)on 12-02-2021 Creatinine [Mass/Vol] 1.73 mg/dL 0.70-1.30 [facility] Work Phone: Comment on above: The validity of the calculated GFR & GFRAA in patients over 70 years has not been determined. Clinical correlation is essential. Serum or plasma urea nitroge n measurement (mass/volume)on 12-02-2021 Urea nitrogen [Mass/Vol] 21 mg/dL 7-18 [facility] Work Phone: Thin prep Papanicolaou smear with manual screeningon 12-02-2021 Thin prep Papanicolaou smear with manual screening 8 5-15 [facility] Work Phone: UA DIP, URINE (POC)on 2021 BILIRUBIN UA (POCT) Negative Negative Iam [facility] CLARITY UA (POCT) Clear [facility] COLOR UA (POCT) [facility] GLUCOSE UA (POCT) Negative Negative mg/dL [facility] HEMOGLOBIN/BLOOD UA (POCT) Negative Negative [facility] KETONE UA (POCT) Negative Negative mg/dL [facility] LEUKOCYTES UA (POCT) Small Abnormal Negative [facility] NITRITE UA (POCT) Negative Negative [facility] PH UA (POCT) 5.5 4.5 - 8.0 [facility] Protein Ql (U) 30 mg/dL Abnormal Negative mg/dL [facility] SPECIFIC GRAVITY UA (POCT) 1.010 1.005 - 1.030 [facility] UROBILINOGEN UA (POCT) 0.2 E.U./dL Gala l E.U./dL [facility] Absolute lymphocyte counton 10-13-2021 Lymphocytes Auto (Unsp spec) [#/Vol] 1.14 10*3/uL 0.83-4.51 [facility] Work Phone: Basophil percentageon 2021 Basophils/100 WBC (Bld) 0.5 % 0-1 [facility] Work Phone: Chloride [Moles/Vol] 104 mmol/L 98-107 [facility] Work Phone: Eosinophils/100 WBC (Bld) 2.1 % 0-5 [facility] Work Phone: Glucose [Mass/Vol] 225 mg/dL 74-106 [facility] Work Phone: Comment on above: Glucose result great er than or equal to 200 mg/dLsuggests DIABETES MELLITUS per A.D.A. criteria. Neutrophils (Bld) [#/Vol] 5.3 10*3/uL 2.0-7.7 [facility] Work Phone: Neutrophils/100 WBC (Bld) 72.6 % 47-70 [facility] Work Phone: Potassium [Moles/Vol] 4.4 mmol/L 3.5-5.1 [facility] Work Phone: Sodium [Moles/Vol] 137 mmol/L 136-145 [facility] Work Phone: WBC (Bld) [#/Vol] 7.3 10*3/uL 4.4-11.0 [facility] Work Phone: Blood erythrocytes count (nu mber/volume)on 10-13-2021 RBC (Bld) [#/Vol] 3.58 10*6/uL 4.6-6.2 [facility] Work Phone: [phone] Blood hemoglobin measurement (mass/volume)on 10-13-2021 Hemoglobin (Bld) [Mass/Vol] 10.7 g/dL 13.0-16.5 [facility] Work Phone: Blood lymphocytes/100 leukoc yteson 10-13-2021 Lymphocytes/100 WBC (Bld) 15.6 % 19-41 [facility] Work Phone: Blood monocytes/100 leukocyt eson 10-13-2021 Monocytes/100 WBC (Bld) 8.5 % 0-10 [facility] Work Phone: Blood platelet mean volumeon 10-13-2021 Platelet mean volume (Bld) [Entitic vol] 10.6 fL 6.2-12.0 [facility] Work Phone: [phone] Determination of erythrocyte mean corpuscular volume (MCV)on 10-13-2021 MCV (RBC) [Entitic vol] 91.1 fL 80-94 [facility] Work Phone: Hematocrit Auto (Bld) [Volum e fraction]on 10-13-2021 Hematocrit (Bld) [Volume fraction] 32.6 % 40-54 [facility] Work Phone: [phone] Laboratory - Chemistry and C hemistry - challengeon 10-13-2021 CO2 [Moles/Vol] 28.0 mmol/L 21.0-32.0 [facility] Work Phone: [phone] Urea nitrogen/Creatinine [Mass ratio] 13.6 mg/mg 10-20 [facility] Work Phone: Laboratory - Hematology and Cell countson 10-13-2021 Erythrocyte distribution width (RBC) [Entitic vol] 47.7 fL 35.1-43.9 [facility] Work Phone: [phone] Erythrocyte distribution width (RBC) [Ratio] 14.3 % 11.6-14.6 [facility] Work Phone: [phone] Immature granulocytes/100 WBC (Bld) 0.700 % 0.0-0.9 [facility] Work Phone: Comment on above: IG% - Immature Granu locytes (promyelocytes, myelocytes and metamyelocytes) > 1% indicates that a LEFT SHIFT is Present. MCH (RBC) [Entitic mass] 29.9 pg 27.0-32.0 [facility] Work Phone: Nucleated RBC/100 WBC (Bld) [Ratio] 0 % 0-5 [facility] Work Phone: MCHC Auto (RBC) [Mass/Vol]on 10-13-2021 MCHC (RBC) [Mass/Vol] 32.8 g/dL 32-36 [facility] Work Phone: No Panel Informationon 10-13 Estimated GFR (MDRD) Amer 48 mL/min >60 [facility] Work Phone: Comment on above: GFR Calc Estimated GFR (MDRD) Non-Af Amer 40 mL/min >60 [facility] Work Phone: Comment on above: Non- GFR Calc Platelets bldon 10-13-2021 Platelets (Bld) [#/Vol] 185 10*3/uL 150-450 [facility] Work Phone: Serum or plasma calcium pedrito urement (mass/volume)on 10-13-2021 Calcium [Mass/Vol] 9.0 mg/dL 8.5-10.1 [facility] Work Phone: Serum or plasma creatinine m easurement (mass/volume)on 10-13-2021 Creatinine [Mass/Vol] 1.76 mg/dL 0.70-1.30 [facility] Work Phone: Comment on above: The validity of the calculated GFR & GFRAA in patients over 70 years has not been determined. Clinical correlation is essential. Serum or plasma urea nitroge n measurement (mass/volume)on 10-13-2021 Urea nitrogen [Mass/Vol] 24 mg/dL 7-18 [facility] Work Phone: Thin prep Papanicolaou smear with manual screeningon 10-13-2021 Thin prep Papanicolaou smear with manual screening 5 5-15 [facility] Work Phone: XR Chest PA and Lateralon IMPRESSION: 1. Lines, Tubes, and Devices: None 2. Lungs and Pleura: The lungs are clear. No infiltrates, nodules or pleural effusions are seen. 3. Cardiomediastinal silhouette: Heart size within normal limits. Pulmonary vascularity is unremarkable. 4. Other: Bony structures unremarkable. Kaiawhina Kohanga Reo: DAVID Transcribe Date/Time: Feb 14 2021 11:21A Dictated by : STEPHANIE STAFFORD DO This examination was interpreted and the report reviewed and electronically signed by: STEPHANIE STAFFORD DO on Feb 14 2021 11:21AM [facility] DIVISION OF RADIOLOGY * * *Final Report* * * DATE OF EXAM: Feb 14 2021 11:17AM WOX [id number] - XR CHEST 2V FRONTAL/LAT / PROCEDURE REASON: Cough * * * * Physician Interpretation * * * * EXAMINATION: CHEST RADIOGRAPH (2 VIEW FRONTAL & LATERAL) CLINICAL HISTORY: Cough MQ: XC2_6 EXAM DATE/TIME: 02/14/2021 11:17 AM Comparison: 11/07/2020 RESULT: DIVISION OF RADIOLOGY Provider, [facility] Philomena baptiste [place] - 02/14/2021 * * *Final Report* * * DATE OF EXAM: Feb 14 2021 11:17AM WOX 5291 - XR CHEST 2V FRONTAL/LAT / PROCEDURE REASON: Cough * * * * Physician Interpretation * * * * EXAMINATION: CHEST RADIOGRAPH (2 VIEW FRONTAL & LATERAL) CLINICAL HISTORY: Cough MQ: XC2_6 EXAM DATE/TIME: 02/14/2021 11:17 AM Comparison: 11/07/2020 RESULT: IMPRESSION IMPRESSION: 1. Lines, Tubes, and Devices: None 2. Lungs and Pleura: The lungs are clear. No infiltrates, nodules or pleural effusions are seen. 3. Cardiomediastinal silhouette: Heart size within normal limits. Pulmonary vascularity is unremarkable. 4. Other: Bony structures unremarkable. Kaiawhina Kohanga Reo: PSCB Transcribe Date/Time: Feb 14 2021 11:21A Dictated by : STEPHANIE STAFFORD DO This examination was interpreted and the report reviewed and electronically signed by: STEPHANIE STAFFORD DO on Feb 14 2021 11:21AM EST [facility] Radiology Study observation (narrative) [facility] XR Chest PA and LateralOrder ed By: Ccf Provider on 02-14-2021 [facility] No Panel Informationon 11-07 Radiology Study observation (narrative) [facility] XR Abdomen Supine and Uprigh ton 11-07-2020 IMPRESSION: Nonobstr uctive bowel gas pattern with fecal retention. Kaiawhina Kohanga Reo: DAVID Transcribe Date/Time: Nov 07 2020 12:25P Dictated by : HENNA PALACIOS MD This examination was interpreted and the report reviewed and electronically signed by: HENNA PALACIOS MD on Nov 07 2020 12:26PM EST DIVISION OF RADIOLOGY * * *Final Report* * * DATE OF EXAM: Nov 07 2020 12:00PM WOX 5289 - XR ABDOMEN 1V SUPINE / PROCEDURE REASON: Diarrhea, unspecified type * * * * Physician Interpretation * * * * EXAMINATION: XR ABDOMEN 1V SUPINE HISTORY: pt states has had diarrhea for 3-4 weeks. Diarrhea, unspecified type. TECHNIQUE: XR ABDOMEN 1V SUPINE Laterality: NOT APPLICABLE Number of different views (projections): 1 M: XB_1 COMPARISON: Comparison is made to prior CT abdomen pelvis dated February and 02/28/2016 RESULT: Supine views of the abdomen demonstrate a nonobstructive bowel gas pattern with mild fecal retention. The soft tissues and bony structures are unremarkable. There are no pathologic calculi. DIVISION OF RADIOLOGY Provider, [facility] - 11/07/2020 * * *Final Report* * * DATE OF EXAM: Nov 07 2020 12:00PM WOX 5289 - XR ABDOMEN 1V SUPINE / PROCEDURE REASON: Diarrhea, unspecified type * * * * Physician Interpretation * * * * EXAMINATION: XR ABDOMEN 1V SUPINE HISTORY: pt states has had diarrhea for 3-4 weeks. Diarrhea, unspecified type. TECHNIQUE: XR ABDOMEN 1V SUPINE Laterality: NOT APPLICABLE Number of different views (projections): 1 M: XB_1 COMPARISON: Comparison is made to prior CT abdomen pelvis dated February and 02/28/2016 RESULT: Supine views of the abdomen demonstrate a nonobstructive bowel gas pattern with mild fecal retention. The soft tissues and bony structures are unremarkable. There are no pathologic calculi. IMPRESSION IMPRESSION: Nonobstructive bowel gas pattern with fecal retention. Kaiawhina Kohanga Reo: DAVID Transcribe Date/Time: Nov 07 2020 12:25P Dictated by : HENNA PALACIOS MD This examination was interpreted and the report reviewed and electronically signed by: HENNA PALACIOS MD on Nov 07 2020 12:26PM EST [facility] XR Abdomen Supine and Uprigh tOrdered By: Ccf Provider [facility] and Lateralon IMPRESSION: Stable chest. No acute cardiopulmonary process. Kaiawhina Kohanga Reo: [facility] Transcribe Date/Time: Nov 07 2020 12:37P Dictated by : HENNA PALACIOS MD This examination was interpreted and the report reviewed and electronically signed by: HENNA PALACIOS MD on Nov 07 2020 12:39PM [facility] DIVISION OF RADIOLOGY * * *Final Report* * * DATE OF EXAM: Nov 07 2020 12:00PM WOX 5291 - XR CHEST 2V FRONTAL/LAT / PROCEDURE REASON: Cough * * * * Physician Interpretation * * * * EXAMINATION: CHEST RADIOGRAPH (2 VIEW FRONTAL & LATERAL) CLINICAL HISTORY: Cough MQ: XC2_6 EXAM DATE/TIME: 11/07/2020 12:00 PM COMPARISON: Comparison is made to prior rib series from 10 August 2015. RESULT: Lines, tubes, and devices: None. Lungs and pleura: There is no focal consolidation or acute pleural process/fluid. There is no vascular redistribution to suggest pulmonary edema. Cardiomediastinal silhouette: The cardiac, mediastinal and hilar shadows are unchanged with enlarged cardiac silhouette and valvuloplasty changes.. Other: The bony structures are intact DIVISION OF RADIOLOGY Provider, Luda Quach [facility] - 11/07/2020 * * *Final Report* * * DATE OF EXAM: Nov 07 2020 12:00PM WOX 5291 - XR CHEST 2V FRONTAL/LAT / PROCEDURE REASON: Cough * * * * Physician Interpretation * * * * EXAMINATION: CHEST RADIOGRAPH (2 VIEW FRONTAL & LATERAL) CLINICAL HISTORY: Cough MQ: XC2_6 EXAM DATE/TIME: 11/07/2020 12:00 PM COMPARISON: Comparison is made to prior rib series from 10 August 2015. RESULT: Lines, tubes, and devices: None. Lungs and pleura: There is no focal consolidation or acute pleural process/fluid. There is no vascular redistribution to suggest pulmonary edema. Cardiomediastinal silhouette: The cardiac, mediastinal and hilar shadows are unchanged with enlarged cardiac silhouette and valvuloplasty changes.. Other: The bony structures are intact IMPRESSION IMPRESSION: Stable chest. No acute cardiopulmonary process. Kaiawhina Kohanga Reo: PSCB Transcribe Date/Time: Nov 07 2020 12:37P Dictated by : HENNA PALACIOS MD This examination was interpreted and the report reviewed and electronically signed by: HENNA PALACIOS MD on Nov 07 2020 12:39PM [facility] Op Noteon 10-30-2020 Op Note PATIENT: AXEL SERRANO ADMISSION DATE: 10/16/2020 SURGERY DATE: 10/16/2020 DATE OF : 1940 AGE: 80 ADMITTING PHYSICIAN: Curry Shore MD ATTENDING PHYSICIAN: Junito Borjas MD DICTATING PHYSICIAN: Junito Borjas MD OPERATIVE RECORD Procedure: A #29 TONA S3 VALVE IMPLANTATION, TRANSFEMORAL TRANSCATHETER AORTIC VALVE REPLACEMENT. Preoperative Diagnosis: Severe symptomatic aortic valvular stenosis. Postoperative Diagnosis: Severe symptomatic aortic valvular stenosis. Anesthesia: Conscious sedation. Cardiologists: 1. Curry Shore M.D. 2. Carter Mistry M.D. Indications for Procedure: The patient is an 80-year-old male with a history of severe, symptomatic . The case was reviewed in the valve clinic and the valve conference and the patient was deemed a candidate for TAVR. Description of Procedure: The patient was positioned on the hybrid operating room table in supine position and conscious sedation anesthesia was initiated. The patient was prepped and draped in usual sterile fashion. The open heart surgery team was available in the operating room and I was scrubbed into the case as a co-surgeon. Vascular access was gained to the right femoral artery, right radial artery, and right femoral vein. A 6-Malaysian sheath was placed in the right femoral vein through which a temporary pacing wire was advanced to the RV apex where appropriate capture was documented. Sterile tubing was attached to the side port of this sheath. A 6-Malaysian sheath was placed in the right radial artery through which a pigtail catheter was placed to the aortic annulus for confirmation of the implant angle. A 6-Malaysian sheath was placed in the right femoral artery. The patient was systemically heparinized. Two Perclose devices were placed at the femoral artery site. The various wires and sheaths were then passed. Please refer to the cardiology dictation for this aspect of the procedure. A 29 mm Tona S3 valve was advanced through the sheath into the descending thoracic aorta. The valve was mounted on the balloon and the delivery catheter was flexed and advanced around the aortic arch and across the aortic annulus. The valve was deployed under rapid pacing. The valve was noted to seat well and function normally on fluoroscopy and transthoracic echocardiography. Protamine was given to reverse the systemic effects of heparin. The patient was decannulated and transferred stable to the recovery room. [employer] Job ID: [id number] Junito Borjas MD DOD:10/30/2020 09:47 A MARY/petey DOT:10/30/2020 10:26 A Job Number: [id number] Document Number: [id number] cc: Curry Shore MD [address] [facility] [address] [facility] [address] Junito Borjas MD [facility] [address] [facility] [address] [facility] [address] Normal [facility] Basic Metabolic Panelon 10-08 Calcium [Mass/Vol] 9.6 mg/dL Normal 8.4-10.4 [facility] Comment on above: Performed By: #### H DESTINEE BMP3 #### [address] [address] Anion gap [Moles/Vol] 9 mmol/L Normal 3-13 [facility] Comment on above: Performed By: #### H DESTINEE BMP3 #### [facility] [address] [place] [address] CO2 [Moles/Vol] 26 mmol/L Normal 22-30 [facility] Comment on above: Performed By: #### H LEDY FELIPE3 #### [facility] [address] [place], [place] Creatinine [Mass/Vol] 1.38 mg/dL High 0.52-1.25 [facility] Comment on above: Performed By: #### H LEDY FELIPE3 #### [facility] [address] [place], [place] GFR/1.73 sq M.predicted among blacks MDRD (S/P/Bld) [Vol rate/Area] 55.4 mL/min/{1.73_m2} Abnormal >60 [facility] Comment on above: Performed By: #### H LEDY FELIPE3 #### [facility] [address] [place], [place] GFR/1.73 sq M.predicted among non-blacks MDRD (S/P/Bld) [Vol rate/Area] 47.8 mL/min/{1.73_m2} Abnormal >60 [facility] Comment on above: Result Comment: KDIG O guidelines provide the following GFR categories: Stage GFR(ml/min/1.73 m2) Terms G1 >=90 Normal or high G2 60-89 Mildly decreased* G3a 45-59 Mildly to moderately decreased G3b 30-44 Moderately to severely decreased G4 15-29 Severely decreased G5 <15 Kidney failure *Relative to young adult level. In the absence of evidence of kidney damage, neither GFR category G1 nor G2 fulfill the criteria for CKD. The CKD-EPI equation is validated in individuals 18 years of age and older. Currently the best equation for estimating glomerular filtration rate (GFR) from serum creatinine in children is the Bedside Mccollum equation. It is less accurate in patients with extremes of muscle mass, restriction of dietary protein, ingestion of creatine, extra-renal metabolism of creatinine, or treatment with medications that affect renal tubular creatinine secretion. Performed By: #### H LEDY FELIPE3 #### [facility] [address] [place], [place] Glucose [Mass/Vol] 109 mg/dL High 70-100 [facility] Comment on above: Performed By: #### H LEDY FELIPE3 #### [facility] [address] [place], [place] Urea nitrogen [Mass/Vol] 28 mg/dL High 7-20 [facility] Comment on above: Performed By: #### H DESTINEE BMP3 #### [facility] [address] [place] [address] Chloride [Moles/Vol] 104 mmol/L Normal 98-107 [facility] Comment on above: Performed By: #### H DESTINEE BMP3 #### [facility] [address] [place] [address] Potassium [Moles/Vol] 4.9 mmol/L Normal 3.5-5.1 [facility] Comment on above: Performed By: #### H LEDY FELIPE3 #### [facility] [address] [place] [address] Sodium [Moles/Vol] 138 mmol/L Normal 135-145 [facility] Comment on above: Performed By: #### H DESTINEE BMP3 #### [facility] [address] [place] [address] Basic Metabolic PanelOrdered By: Alva Lara on 10-24-2020 Anion gap [Moles/Vol] 9 mmol/L 3 - 13 mmol/L [facility] Work Phone: Calcium [Mass/Vol] 9.6 mg/dL 8.4 - 10. 4 mg/dL [facility] Work Phone: Chloride [Moles/Vol] 104 mmol/L 98 - 10 7 mmol/L [facility] Work Phone: CO2 [Moles/Vol] 26 mmol/L 22 - 30 mmol/L [facility] Work Phone: Creatinine [Mass/Vol] 1.38 mg/dL High 0.52 - 1.25 mg/dL [facility] Work Phone: EGFR IF NonAfrican Icelandic 47.8 mL/min Abnormal >60 [facility] Work Phone: Comment on above: KDIGO guidelines pro vide the following GFR categories: Stage GFR(ml/min/1.73 m2) Terms G1 >=90 Normal or high G2 60-89 Mildly decreased* G3a 45-59 Mildly to moderately decreased G3b 30-44 Moderately to severely decreased G4 15-29 Severely decreased G5 <15 Kidney failure *Relative to young adult level. In the absence of evidence of kidney damage, neither GFR category G1 nor G2 fulfill the criteria for CKD. The CKD-EPI equation is validated in individuals 18 years of age and older. Currently the best equation for estimating glomerular filtration rate (GFR) from serum creatinine in children is the Bedside Mccollum equation. It is less accurate in patients with extremes of muscle mass, restriction of dietary protein, ingestion of creatine, extra-renal metabolism of creatinine, or treatment with medications that affect renal tubular creatinine secretion. GFR/1.73 sq M.predicted among blacks MDRD (S/P/Bld) [Vol rate/Area] 55.4 mL/min/{1.73_m2} Abnormal >60 [facility] Work Phone: Glucose [Mass/Vol] 109 mg/dL High 70 - 100 mg/dL [facility] Work Phone: [phone] Interpretation and review of laboratory results Abnormal [facility] Work Phone: [phone] Potassium [Moles/Vol] 4.9 mmol/L 3.5 - 5.1 mmol/L [facility] Work Phone: [phone] Sodium [Moles/Vol] 138 mmol/L 135 - 145 mmol/L [facility] Work Phone: Urea nitrogen (BldV) [Mass/Vol] 28 mg/dL High 7 - 20 mg/dL [facility] Work Phone: Test Performed by [facility], [address] [place] [address] [facility] Work Phone: [phone] [facility] Work Phone: CBCOrdered By: Alva taylor on 10-24-2020 Hematocrit (Bld) [Volume fraction] 32.9 % Low 40.0 - 52.0 % [facility] Work Phone: Hemoglobin.gastrointest inal spec 1 Ql (Stl) 11.5 g/dL Low 13.0 - 18.0 g/dL [facility] Work Phone: Interpretation and review of laboratory results Abnormal [facility] Work Phone: MCH (RBC) [Entitic mass] 29.9 pg 26.0 - 34.0 pg [employer] Work Phone: [phone] MCHC (RBC) [Mass/Vol] 34.9 % 32.0 - 36.0 % [employer] Work Phone: [phone] MCV (RBC) [Entitic vol] 85.7 fL 80.0 - 98.0 fL [employer] Work Phone: [phone] Platelet distribution width (Bld) [Ratio] 15.4 % High 11.5 - 14.5 % [employer] Work Phone: [phone] Platelet mean volume (Bld) [Entitic vol] 8.8 fL 7.4 - 10.4 fL [employer] Work Phone: [phone] Platelets (Bld) [#/Vol] 168 10*3/uL 140 - 440 10*3/uL [employer] Work Phone: [phone] RBC (Bld) [#/Vol] 3.83 10*6/uL Low 4.40 - 5.90 10*6/uL [employer] Work Phone: [phone] WBC (Bld) [#/Vol] 7.9 10*3/uL 3.6 - 10.7 10*3/uL [employer] Work Phone: [phone] Test Performed by [facility], [address] [place] [address] [facility] Work Phone: [phone] [facility] Work Phone: Hemogramon 10-24-2020 Erythrocyte distribution width (RBC) [Ratio] 15.4 % High 11.5-14.5 [facility] Comment on above: Performed By: #### H DESTINEE BMP3 #### [facility] [employer] [address] [place] [address] Hematocrit (Bld) [Volume fraction] 32.9 % Low 40.0-52.0 [facility] Comment on above: Performed By: #### H DESTINEE, BMP3 #### [address] [address] [place] [address] Hemoglobin (Bld) [Mass/Vol] 11.5 g/dL Low 13.0-18.0 [facility] Comment on above: Performed By: #### H EMOG BMP3 #### [facility] [address] [place], [place] MCH (RBC) [Entitic mass] 29.9 pg Normal 26.0-34.0 [facility] Comment on above: Performed By: #### H EMOG, BMP3 #### [facility] [address] [place], [place] MCHC 34.9 % Normal 32.0-36.0 [facility] Comment on above: Performed By: #### H EMOG BMP3 #### [address] [place] MCV (RBC) [Entitic vol] 85.7 fL Normal 80.0-98.0 [facility] Comment on above: Performed By: #### H EMOFlynn BMP3 #### [address] Platelet mean volume (Bld) [Entitic vol] 8.8 fL Normal 7.4-10.4 [facility] Comment on above: Performed By: #### H EMOFlynn BMP3 #### [address] Platelets (Bld) [#/Vol] 168 10*3/uL Normal 140-440 [facility] Comment on above: Performed By: #### H EMOFlynn, BMP3 #### [address] [place], [place] RBC (Bld) [#/Vol] 3.83 10*6/uL Low 4.40-5.90 [facility] Comment on above: Performed By: #### H EMOFlynn, BMP3 #### [address] WBC (Bld) [#/Vol] 7.9 10*3/uL Normal 3.6-10.7 [facility] Comment on above: Performed By: #### H EMOG, BMP3 #### [address] [place] [address] Basic Metabolic Panelon 06-1 0-2020 Anion gap [Moles/Vol] 6 mmol/L Normal 3-13 [facility] Comment on above: Performed By: #### Braden FELIPE BMP3 ####[facility] [employer] [address] [place] [address] Calcium [Mass/Vol] 9.0 mg/dL Normal 8.4-10.4 [facility] Comment on above: Performed By: #### Braden FELIPE BMP3 ####[facility] [employer] [id number] [place] [address] CO2 [Moles/Vol] 24 mmol/L Normal 22-30 [facility] Comment on above: Performed By: #### H DESTINEE BMP3 ####[facility] [employer] [id number] [place] [address] Glucose [Mass/Vol] 145 mg/dL High 70-100 [facility] Comment on above: Performed By: #### Braden FELIPE BMP3 ####[facility] [employer] [address] [place], [place] Urea nitrogen [Mass/Vol] 27 mg/dL High 7-20 [facility] Comment on above: Performed By: #### Braden FELIPE BMP3 ####[facility] [employer] [address] [place] [address] Creatinine [Mass/Vol] 1.23 mg/dL Normal 0.52-1.25 [facility] Comment on above: Performed By: #### Braden FELIPE BMP3 ####[facility] [employer] [address] [place] [address] GFR/1.73 sq M.predicted among blacks MDRD (S/P/Bld) [Vol rate/Area] 63.7 mL/min/{1.73_m2} Normal >60 [facility] Comment on above: Performed By: #### Braden FELIPE BMP3 ####[facility] [employer] [address] [place] [address] GFR/1.73 sq M.predicted among non-blacks MDRD (S/P/Bld) [Vol rate/Area] 54.9 mL/min/{1.73_m2} Abnormal >60 [facility] Comment on above: Result Comment: KDIG O guidelines provide the following GFR categories: Stage GFR(ml/min/1.73 m2) Terms G1 >=90 Normal or high G2 60-89 Mildly decreased* G3a 45-59 Mildly to moderately decreased G3b 30-44 Moderately to severely decreased G4 15-29 Severely decreased G5 <15 Kidney failure *Relative to young adult level. In the absence of evidence of kidney damage, neither GFR category G1 nor G2 fulfill the criteria for CKD. The CKD-EPI equation is validated in individuals 18 years of age and older. Currently the best equation for estimating glomerular filtration rate (GFR) from serum creatinine in children is the Bedside Mccollum equation. It is less accurate in patients with extremes of muscle mass, restriction of dietary protein, ingestion of creatine, extra-renal metabolism of creatinine, or treatment with medications that affect renal tubular creatinine secretion. Performed By: #### H LEDY FELIPE3 ####[address] [place], [place] Potassium [Moles/Vol] 4.8 mmol/L Normal 3.5-5.1 [facility] Comment on above: Result Comment: Slig htly hemolysed, interpret with caution. Performed By: #### H LEDY FELIPE3 ####[address] [place], [place] Sodium [Moles/Vol] 136 mmol/L Normal 135-145 [facility] Comment on above: Performed By: #### H LEDY FELIPE3 ####[address] [place], [place] Chloride [Moles/Vol] 106 mmol/L Normal 98-107 [facility] Comment on above: Performed By: #### H LEDY FELIPE3 ####[address] Basic Metabolic PanelOrdered By: Radha Mistry on 10-17-2020 Anion gap [Moles/Vol] 6 mmol/L 3 - 13 mmol/L [facility] Work Phone: Calcium [Mass/Vol] 9.0 mg/dL 8.4 - 10. 4 mg/dL [facility] Work Phone: Chloride [Moles/Vol] 106 mmol/L 98 - 10 7 mmol/L [facility] Work Phone: CO2 [Moles/Vol] 24 mmol/L 22 - 30 mmol/L [facility] Work Phone: Creatinine [Mass/Vol] 1.23 mg/dL 0.52 - 1.25 mg/dL [facility] Work Phone: EGFR IF NonAfrican Icelandic 54.9 mL/min Abnormal >60 [facility] Work Phone: Comment on above: KDIGO guidelines pro vide the following GFR categories: Stage GFR(ml/min/1.73 m2) Terms G1 >=90 Normal or high G2 60-89 Mildly decreased* G3a 45-59 Mildly to moderately decreased G3b 30-44 Moderately to severely decreased G4 15-29 Severely decreased G5 <15 Kidney failure *Relative to young adult level. In the absence of evidence of kidney damage, neither GFR category G1 nor G2 fulfill the criteria for CKD. The CKD-EPI equation is validated in individuals 18 years of age and older. Currently the best equation for estimating glomerular filtration rate (GFR) from serum creatinine in children is the Bedside Mccollum equation. It is less accurate in patients with extremes of muscle mass, restriction of dietary protein, ingestion of creatine, extra-renal metabolism of creatinine, or treatment with medications that affect renal tubular creatinine secretion. GFR/1.73 sq M.predicted among blacks MDRD (S/P/Bld) [Vol rate/Area] 63.7 mL/min/{1.73_m2} >60 [facility] Work Phone: Glucose [Mass/Vol] 145 mg/dL High 70 - 100 mg/dL [facility] Work Phone: Interpretation and review of laboratory results Abnormal [facility] Work Phone: Potassium [Moles/Vol] 4.8 mmol/L 3.5 - 5.1 mmol/L [facility] Work Phone: Comment on above: Slightly hemolysed, interpret with caution. Sodium [Moles/Vol] 136 mmol/L 135 - 145 mmol/L [facility] Work Phone: Urea nitrogen (BldV) [Mass/Vol] 27 mg/dL High 7 - 20 mg/dL [facility] Work Phone: [phone] Test Performed by [employer] [facility] [place], [address] [place] [address] [facility] Work Phone: [phone] [facility] Work Phone: [phone] CBCOrdered By: Radha patel 10-17-2020 Hematocrit (Bld) [Volume fraction] 30.9 % Low 40.0 - 52.0 % [facility] Work Phone: [phone] Hemoglobin.gastrointest inal spec 1 Ql (Stl) 10.8 g/dL Low 13.0 - 18.0 g/dL [facility] Work Phone: [phone] Interpretation and review of laboratory results Abnormal [facility] Work Phone: [phone] MCH (RBC) [Entitic mass] 29.2 pg 26.0 - 34.0 pg [facility] Work Phone: [phone] MCHC (RBC) [Mass/Vol] 34.9 % 32.0 - 36.0 % [facility] Work Phone: [phone] MCV (RBC) [Entitic vol] 83.8 fL 80.0 - 98.0 fL [facility] Work Phone: [phone] Platelet distribution width (Bld) [Ratio] 15.4 % High 11.5 - 14.5 % [facility] Work Phone: [phone] Platelet mean volume (Bld) [Entitic vol] 8.8 fL 7.4 - 10.4 fL [facility] Work Phone: [phone] Platelets (Bld) [#/Vol] 136 10*3/uL Low 140 - 440 10*3/uL [facility] Work Phone: [phone] RBC (Bld) [#/Vol] 3.69 10*6/uL Low 4.40 - 5.90 10*6/uL [facility] Work Phone: [phone] WBC (Bld) [#/Vol] 8.9 10*3/uL 3.6 - 10.7 10*3/uL [facility] Work Phone: [phone] Test Performed by [facility], [address] [place] [address] [facility] Work Phone: [employer] Work Phone: EKG 12 leadOrdered By: Star Mistry on 10-17-2020 [facility] Test Date: 2020-10-16 Pat Name: AXEL SERRANO Department: [facility] Room: [facility] Gender: M Field Examiner: [facility] : 1940 Requested By: RADHA MISTRY Order Number: [id number] Reading MD: Steve Romero Measurements Intervals [place] Rate: 54 P: 28 TX: 189 QRS: -40 QRSD: 131 T: 153 QT: 486 QTc: 461 Interpretive Statements Sinus bradycardia Ventricular premature complex LVH with IVCD, LAD and secondary repol abnrm Electronically Signed On 10-17-2020 15:14:19 EDT by Steve Romero [employer] Work Phone: Raman, [facility] Incoming Cardiology Results From [facility] - 10/17/2020 3:15 PM EDT [facility] Test Date: 2020-10-16 Pat Name: AXEL SERRANO Department: [facility] Room: [facility] Gender: M Field Examiner: [facility] : 1940 Requested By: RADHA MISTRY Order Number: [id number] Reading : Steve Romero Measurements Intervals [place] Rate: 54 P: 28 [place]: 189 QRS: -40 QRSD: 131 T: 153 QT: 486 QTc: 461 Interpretive Statements Sinus bradycardia Ventricular premature complex LVH with IVCD, LAD and secondary repol abnrm Electronically Signed On 10-17-2020 15:14:19 EDT by Steve Romero [employer] Work Phone: [employer] Work Phone: Echo Complete w/wo Contrasto n 10-17-2020 Echo Complete w/wo Contrast Patient Name: AXEL SERRANO Ultrasound ACCESSION EXAM DATE/TIME PROCEDURE ORDERING PROVIDER [id number] 10/17/2020 15:06 EDT Echo Complete w/wo BRIAN MISTRY MEGGAN Contrast Reason For Exam (Echo Complete w/wo Contrast) severe s/p TAVR POD 1 Report TRANSTHORACIC ECHOCARDIOGRAM PATIENT: Yue, STUDY DATE: 10/17/2020 Axel : 1940 AGE: 80 HT/WT: 177.8 cm (70 127.5 kg (280.4 in) lb) GENDER: M BP: 124 / 73 LOCATION: [facility] PATIENT Inpatient main STATUS: *ORDERING PHYSICIAN: * Radha Mistry *READING PHYSICIAN: * Franklin *MANAGER OF APPLICATIONS DEVELOPMENT: * Merry Naranjo MD RDCS,AE, PE, RVT INDICATIONS: SEVERE S/P TAVR POD 1. HISTORY: 29mm TAVR BIOPROSTETIC. CONCLUSIONS SUMMARY: 1. Left ventricle: There is moderate concentric hypertrophy. Systolic function is mildly decreased by the biplane method of disks. The estimated ejection fraction is 49%. There are no regional wall motion abnormalities. Doppler parameters are consistent with abnormal left ventricular relaxation (grade 1 diastolic dysfunction). 2. Left atrium: The atrium is mildly dilated. 3. Aortic valve: There is a normally functioning 29 mm bioprosthetic valve (Suarez Tona). There is no regurgitation. The peak systolic velocity is 2.1 m/sec. The mean systolic gradient is 10 mm Hg. 4. Pericardium, extracardiac: There is no pericardial effusion. STUDY DATA: Complete transthoracic echocardiogram. Procedure: Image quality was suboptimal. The study was technically limited due to poor acoustic window availability. Intravenous imaging enhancement (Definity) was administered to opacify the chamber. Definity lot #: [id number]. M-mode, complete 2D, complete spectral Doppler, and color flow Doppler images were acquired and archived for permanent storage and are Ultrasound Report available for subsequent review. Study status: Routine. Patient status: Inpatient. FINDINGS LEFT VENTRICLE: The cavity size is normal. Wall thickness is moderately increased. There is moderate concentric hypertrophy. Systolic function is mildly decreased by the biplane method of disks. The estimated ejection fraction is 49%. There are no regional wall motion abnormalities. Doppler parameters are consistent with abnormal left ventricular relaxation (grade 1 diastolic dysfunction). E/e' average: 11 RIGHT VENTRICLE: Not well visualized. The cavity size is mildly dilated. Systolic function is normal. VENTRICULAR SEPTUM: There is no evidence of a ventricular septal defect. LEFT ATRIUM: The atrium is mildly dilated. RIGHT ATRIUM: Not well visualized. The atrium is normal in size. ATRIAL SEPTUM: Not well visualized. Color Doppler shows no shunt. MITRAL VALVE: Not well visualized. Structurally normal valve. Doppler: There is trivial, less than 1+ regurgitation. AORTIC VALVE: Not well visualized. There is a normally functioning 29 mm bioprosthetic valve (Suarez Tona). Doppler: There is no regurgitation. Dimensionless index: 0.37. The valve area by the velocity-time integral method is 1.6 cm^2. The valve area index by the velocity-time integral method is 0.6 cm^2/m^2. The mean systolic gradient is 10 mm Hg. The peak systolic gradient is 18 mm Hg. The peak systolic velocity is 2.1 m/sec. TRICUSPID VALVE: Not well visualized. Structurally normal valve. Doppler: There is trivial, less than 1+ regurgitation. PULMONIC VALVE: Not well visualized. Structurally normal valve. Doppler: There is trivial, less than 1+ regurgitation. AORTA: The aorta is poorly visualized and normal. PULMONARY ARTERY: Main pulmonary artery: Normal. PERICARDIUM: There is no pericardial effusion. SYSTEMIC VEINS: Not visualized. Measurements Left ventricle Value 10/16/2020 Reference LV ID, ED (L) 4.0 cm 5.7 4.2 - 5.8 LV ID, ES 3.1 cm 4.2 2.5 - 4.0 LV ID/bsa, ED (L) 1.6 cm/m^2 2.3 2.2 - 3.0 LV ID/bsa, ES (L) 1.2 cm/m^2 1.7 1.3 - 2.1 LV PW thickness, ED (H) 1.6 cm 1.6 0.6 - 1.0 LV PW/LV ID ratio, ED 0.4 0.27 LV wall mass (H) 248 g 387 96 - 200 LV wall mass/bsa 97 g/m^2 156 50 - 102 Stroke volume/bsa, 1-p 39.4 ml/m^2 A2C LV end-diastolic (H) 278 ml 69 - 185 volume, 1-p A4C LV end-systolic volume, (H) 133 ml 22 - 78 1-p A4C LV end-diastolic (H) 248 ml 62 - 150 volume, 2-p LV end-systolic volume, (H) 126 ml 2 (more content not included)... Normal [facility] Glucose,Bedsideon 10-17-2020 Glucose [Mass/Vol] 187 mg/dL High 70-100 [facility] Comment on above: Result Comment: Test performed by glucose meter. Results may be 10%-15% lower than serum/plasma values. (CLIA ID [id number]) Performed By: #### B GLU #### [facility] [employer] [facility] [place] [address] [place], [place] Hemogramon 10-17-2020 Erythrocyte distribution width (RBC) [Ratio] 15.4 % High 11.5-14.5 [facility] Comment on above: Performed By: #### H EMOG, BMP3 ####[facility] [employer] [id number] [place], [place] Hematocrit (Bld) [Volume fraction] 30.9 % Low 40.0-52.0 [facility] Comment on above: Performed By: #### H EMOG, BMP3 ####[employer] [id number] [place], [place] Hemoglobin (Bld) [Mass/Vol] 10.8 g/dL Low 13.0-18.0 [facility] Comment on above: Performed By: #### H EMOG, BMP3 ####[employer] [id number] [place], [place] MCH (RBC) [Entitic mass] 29.2 pg Normal 26.0-34.0 [facility] Comment on above: Performed By: #### H EMOG, BMP3 ####[employer] [id number] [place], [place] MCHC 34.9 % Normal 32.0-36.0 [facility] Comment on above: Performed By: #### H EMOG, BMP3 ####[facility] [id number] [place], [place] MCV (RBC) [Entitic vol] 83.8 fL Normal 80.0-98.0 [facility] Comment on above: Performed By: #### H DESTINEE, BMP3 ####[facility] [employer] [id number] [place], [place] Platelet mean volume (Bld) [Entitic vol] 8.8 fL Normal 7.4-10.4 [facility] Comment on above: Performed By: #### H DESTINEE, BMP3 ####[facility] [employer] [id number] [place], [place] Platelets (Bld) [#/Vol] 136 10*3/uL Low 140-440 [facility] Comment on above: Performed By: #### H DESTINEE BMP3 ####[facility] [employer] [id number] [place], [place] RBC (Bld) [#/Vol] 3.69 10*6/uL Low 4.40-5.90 [facility] Comment on above: Performed By: #### H DESTINEE BMP3 ####[facility] [employer] [id number] [place], [place] WBC (Bld) [#/Vol] 8.9 10*3/uL Normal 3.6-10.7 [facility] Comment on above: Performed By: #### H DESTINEE BMP3 ####[facility] [employer] [id number] [place], [place] Leukodepleted Red Cellson Leukodepleted Red Cells Leukodepleted Re d Cells: [id number] released 10/17/20 07:33 [facility] Unit Blood Type: A Unit Blood Rh: POS Blood Product Code: AS1 Unit Number: [id number] Unit Status: released Barcoded Unit Number: =[id number] Barcoded Product Code: = Barcoded ABO/Rh: =%6200 Unit Expiration: [id number] Leukodepleted Red Cells: [id number] released 10/17/20 07:33 [facility] Unit Blood Type: A Unit Blood Rh: POS Blood Product Code: AS1 Unit Number: [id number] Unit Status: released Barcoded Unit Number: =[id number] Barcoded Product Code: = Barcoded ABO/Rh: =%6200 Unit Expiration: [id number] Unit Volume Transfused: 0 Unit Transfusion Start Date/Time: Unit Transfusion End Date/Time: Normal [facility] Comment on above: Performed By: #### L RC ####[address] [address]#### TSGL ####[facility] POCT GlucoseOrdered By: Uvaldo Shore on 10-17-2020 Glucose [Mass/Vol] 187 mg/dL High 70 - 100 mg/dL [facility] Work Phone: Comment on above: Test performed by ucose meter. Results may be 10%-15% lower than serum/plasma values. (CLIA ID [id number]) Interpretation and review of laboratory results Abnormal [facility] Work Phone: Test Performed by [facility], [address] [place] [id number] [place] [address] Work Phone: [facility] Work Phone: Basic Metabolic Panelon 06-0 Anion gap [Moles/Vol] 8 mmol/L Normal 3-13 [facility] Comment on above: Performed By: #### H LEDY FELIPE3 #### [address] [address] Chloride [Moles/Vol] 106 mmol/L Normal 98-107 [facility] Comment on above: Performed By: #### H LEDY FELIPE3 #### [address] [address] Potassium [Moles/Vol] 5.1 mmol/L Normal 3.5-5.1 [facility] Comment on above: Result Comment: Slig htly hemolysed, interpret with caution. Performed By: #### H DESTINEE BMP3 #### [address] [address] Sodium [Moles/Vol] 137 mmol/L Normal 135-145 [facility] Comment on above: Performed By: #### H DESTINEE BMP3 #### [address] Calcium [Mass/Vol] 8.7 mg/dL Normal 8.4-10.4 [facility] Comment on above: Performed By: #### Braden FELIPE BMP3 #### [facility] [address] [place], [place] CO2 [Moles/Vol] 25 mmol/L Normal 22-30 [facility] Comment on above: Performed By: #### Braden FELIPE BMP3 #### [facility] [address] [place], [place] Glucose [Mass/Vol] 154 mg/dL High 70-100 [facility] Comment on above: Performed By: #### Braden FELIPE BMP3 #### [facility] [address] [place], [place] Urea nitrogen [Mass/Vol] 31 mg/dL High 7-20 [facility] Comment on above: Performed By: #### Braden FELIPE BMP3 #### [facility] [address] [place], [place] Creatinine [Mass/Vol] 1.37 mg/dL High 0.52-1.25 [facility] Comment on above: Performed By: #### Braden FELIPE BMP3 #### [facility] [address] [place], [place] GFR/1.73 sq M.predicted among blacks MDRD (S/P/Bld) [Vol rate/Area] 55.9 mL/min/{1.73_m2} Abnormal >60 [facility] Comment on above: Performed By: #### Braden FELIPE BMP3 #### [facility] [address] [place], [place] GFR/1.73 sq M.predicted among non-blacks MDRD (S/P/Bld) [Vol rate/Area] 48.2 mL/min/{1.73_m2} Abnormal >60 [facility] Comment on above: Result Comment: KDIG O guidelines provide the following GFR categories: Stage GFR(ml/min/1.73 m2) Terms G1 >=90 Normal or high G2 60-89 Mildly decreased* G3a 45-59 Mildly to moderately decreased G3b 30-44 Moderately to severely decreased G4 15-29 Severely decreased G5 <15 Kidney failure *Relative to young adult level. In the absence of evidence of kidney damage, neither GFR category G1 nor G2 fulfill the criteria for CKD. The CKD-EPI equation is validated in individuals 18 years of age and older. Currently the best equation for estimating glomerular filtration rate (GFR) from serum creatinine in children is the Bedside Mccollum equation. It is less accurate in patients with extremes of muscle mass, restriction of dietary protein, ingestion of creatine, extra-renal metabolism of creatinine, or treatment with medications that affect renal tubular creatinine secretion. Performed By: #### H [facility], BMP3 #### [employer] [address] [place] [phone] Basic Metabolic PanelOrdered By: Radha Mistry on 10-16-2020 Anion gap [Moles/Vol] 8 mmol/L 3 - 13 mmol/L [employer] Work Phone: Calcium [Mass/Vol] 8.7 mg/dL 8.4 - 10. 4 mg/dL [employer] Work Phone: Chloride [Moles/Vol] 106 mmol/L 98 - 10 7 mmol/L [employer] Work Phone: CO2 [Moles/Vol] 25 mmol/L 22 - 30 mmol/L [employer] Work Phone: Creatinine [Mass/Vol] 1.37 mg/dL High 0.52 - 1.25 mg/dL [employer] Work Phone: EGFR IF NonAfrican Icelandic 48.2 mL/min Abnormal >60 [employer] Work Phone: Comment on above: KDIGO guidelines pro vide the following GFR categories: Stage GFR(ml/min/1.73 m2) Terms G1 >=90 Normal or high G2 60-89 Mildly decreased* G3a 45-59 Mildly to moderately decreased G3b 30-44 Moderately to severely decreased G4 15-29 Severely decreased G5 <15 Kidney failure *Relative to young adult level. In the absence of evidence of kidney damage, neither GFR category G1 nor G2 fulfill the criteria for CKD. The CKD-EPI equation is validated in individuals 18 years of age and older. Currently the best equation for estimating glomerular filtration rate (GFR) from serum creatinine in children is the Bedside Mccollum equation. It is less accurate in patients with extremes of muscle mass, restriction of dietary protein, ingestion of creatine, extra-renal metabolism of creatinine, or treatment with medications that affect renal tubular creatinine secretion. GFR/1.73 sq M.predicted among blacks MDRD (S/P/Bld) [Vol rate/Area] 55.9 mL/min/{1.73_m2} Abnormal >60 [facility] Work Phone: [phone] Glucose [Mass/Vol] 154 mg/dL High 70 - 100 mg/dL [facility] Work Phone: [phone] Interpretation and review of laboratory results Abnormal [facility] Work Phone: [phone] Potassium [Moles/Vol] 5.1 mmol/L 3.5 - 5.1 mmol/L [facility] Work Phone: [phone] Comment on above: Slightly hemolysed, interpret with caution. Sodium [Moles/Vol] 137 mmol/L 135 - 145 mmol/L [facility] Work Phone: [phone] Urea nitrogen (BldV) [Mass/Vol] 31 mg/dL High 7 - 20 mg/dL [facility] Work Phone: [phone] Test Performed by [facility], [address] [place] [address] [facility] Work Phone: [phone] [facility] Work Phone: [phone] CBCOrdered By: Radha patel 10-16-2020 Hematocrit (Bld) [Volume fraction] 31.3 % Low 40.0 - 52.0 % [facility] Work Phone: [phone] Hemoglobin.gastrointest inal spec 1 Ql (Stl) 10.8 g/dL Low 13.0 - 18.0 g/dL [facility] Work Phone: [phone] Interpretation and review of laboratory results Abnormal [facility] Work Phone: [phone] MCH (RBC) [Entitic mass] 29.6 pg 26.0 - 34.0 pg [facility] Work Phone: [phone] MCHC (RBC) [Mass/Vol] 34.4 % 32.0 - 36.0 % [facility] Work Phone: [phone] MCV (RBC) [Entitic vol] 86.1 fL 80.0 - 98.0 fL [employer] Work Phone: Platelet distribution width (Bld) [Ratio] 15.5 % High 11.5 - 14.5 % [employer] Work Phone: Platelet mean volume (Bld) [Entitic vol] 8.6 fL 7.4 - 10.4 fL [employer] Work Phone: [phone] Platelets (Bld) [#/Vol] 149 10*3/uL 140 - 440 10*3/uL [employer] Work Phone: [phone] RBC (Bld) [#/Vol] 3.64 10*6/uL Low 4.40 - 5.90 10*6/uL [employer] Work Phone: WBC (Bld) [#/Vol] 6.8 10*3/uL 3.6 - 10.7 10*3/uL [employer] Work Phone: Test Performed by [address] [address] [employer] Work Phone: [employer] Work Phone: ECHOCARDIOGRAM LIMITEDOrdere d By: Curry Shore on 10-16-2020 LIMITED TRANSTHORACI C ECHOCARDIOGRAM Perioperative - TAVR PATIENT: Yue, STUDY DATE: 10/16/2020 Axel : 1940 AGE: 80 HT/WT: 177.8 cm (70 135.6 kg (298.4 in) lb) GENDER: M BP: 148 / 74 LOCATION: [facility] PATIENT Inpatient main STATUS: *ORDERING PHYSICIAN: * Curry Shore MD *READING PHYSICIAN: * Danyel, *MANAGER OF APPLICATIONS DEVELOPMENT: * Esther Rivero MD RD, AE INDICATIONS: TAVR assessment. Aortic stenosis. HISTORY: Aortic valve replacement with a 29 mmbioprosthetic valve. CONCLUSIONS SUMMARY: 1. Left ventricle: Systolic function is at the lower limits of normal by visual assessment. The estimated ejection fraction is 50%. 2. Pre procedure: Severe aortic stenosis. Mild aortic regurgitation. The mean aortic valve systolic gradient is 37 mm Hg. 3. Post procedure: The mean aortic valve systolic gradient is 5 mm Hg. 4. Successful TAVR. The trileaflet bioprosthesis is well-seated with normal leaflet excursion. There is trivial perivalvular regurgitation. STUDY DATA: Transthoracic echocardiography, limited study. Procedure: Image quality was adequate. The study was technically limited due to poor acoustic window availability. Limited 2D, limited spectral Doppler, and color flow Doppler images were acquired and archived for permanent storage and are available for subsequent review. Study status: Routine. Patient status: Inpatient. Location: Hybrid operating room. FINDINGS LEFT VENTRICLE: Not well visualized. Systolic function is at the lower limits of normal by visual assessment. The estimated ejection fraction is 50%. RIGHT VENTRICLE: Systolic function is normal. MITRAL VALVE: Doppler: There is trivial, less than 1+ regurgitation. AORTIC VALVE: There is a normally functioning 29 mm Suarez Tona 3 Ultra bioprosthetic valve. Doppler: There is trivial perivalvular regurgitation. Dimensionless index: 0.87. The valve area by the velocity-time integral method is 4.7 cm^2. The valve area index by the velocity-time integral method is 1.9 cm^2/m^2. The mean systolic gradient is 5 mm Hg. The peak systolic gradient is 10 mm Hg. The peak systolic velocity is 1.6 m/sec. TRICUSPID VALVE: Doppler: There is no significant regurgitation. AORTA: The aorta is mildly dilated. PERICARDIUM: There is no pericardial effusion. Pre procedure: Severe aortic stenosis. Mild aortic regurgitation. Mean gradient 40 mmHg, peak gradient 58 mmHg. Post procedure: No evidence for aortic stenosis. Aortic valve velocity is decreased from baseline. Trivial paravalvular aortic regurgitation. Measurements Value Reference Ascending aorta ID, A-P, S 4.0 cm --------- Ascending aorta ID/bsa, A-P, S 1.6 cm/m^2 --------- Pre procedure Value Reference LVOT peak velocity, S 0.98 m/sec --------- LVOT VTI, S 27.0 cm --------- Aortic valve peak velocity, S 3.72 m/sec --------- Aortic valve mean velocity, S 2.9 m/sec --------- Aortic peak gradient, S 55 mm Hg --------- Aortic mean gradient, S 37 mm Hg --------- Aortic valve VTI, S 104.0 cm --------- AoV area, VTI 1.4 cm^2 --------- Velocity ratio, peak, LVOT/AV 0.26 --------- VTI ratio, LVOT/AV 0.26 --------- Post procedure Value Reference LVOT peak velocity, S 1.23 m/sec --------- LVOT VTI, S 31.1 cm --------- Aortic valve peak velocity, S 1.58 m/sec --------- Aortic valve mean velocity, S 1.08 m/sec --------- Aortic peak gradient, S 10 mm Hg --------- Aortic mean gradient, S 5 mm Hg --------- Aortic valve VTI, S 36.0 cm --------- AoV area, VTI 4.6 cm^2 --------- Velocity ratio, peak, LVOT/AV 0.78 --------- VTI ratio, LVOT/AV (more content not included)... [employer] Work Phone: Raman, Naked Incoming Cardiology Results From [facility] - 10/16/2020 9:59 AM EDT LIMITED TRANSTHORACIC ECHOCARDIOGRAM Perioperative - TAVR PATIENT: Yue, STUDY DATE: 10/16/2020 Axel : 1940 AGE: 80 HT/WT: 177.8 cm (70 135.6 kg (298.4 in) lb) GENDER: M BP: 148 / 74 LOCATION: [facility] [employer] [facility] PATIENT Inpatient main STATUS: *ORDERING PHYSICIAN: * Curry Shore MD *READING PHYSICIAN: * Danyel, *MANAGER OF APPLICATIONS DEVELOPMENT: * Esther Rivero MD RDCS, AE INDICATIONS: TAVR assessment. Aortic stenosis. HISTORY: Aortic valve replacement with a 29 mmbioprosthetic valve. CONCLUSIONS SUMMARY: 1. Left ventricle: Systolic function is at the lower limits of normal by visual assessment. The estimated ejection fraction is 50%. 2. Pre procedure: Severe aortic stenosis. Mild aortic regurgitation. The mean aortic valve systolic gradient is 37 mm Hg. 3. Post procedure: The mean aortic valve systolic gradient is 5 mm Hg. 4. Successful TAVR. The trileaflet bioprosthesis is well-seated with normal leaflet excursion. There is trivial perivalvular regurgitation. STUDY DATA: Transthoracic echocardiography, limited study. Procedure: Image quality was adequate. The study was technically limited due to poor acoustic window availability. Limited 2D, limited spectral Doppler, and color flow Doppler images were acquired and archived for permanent storage and are available for subsequent review. Study status: Routine. Patient status: Inpatient. Location: Hybrid operating room. FINDINGS LEFT VENTRICLE: Not well visualized. Systolic function is at the lower limits of normal by visual assessment. The estimated ejection fraction is 50%. RIGHT VENTRICLE: Systolic function is normal. MITRAL VALVE: Doppler: There is trivial, less than 1+ regurgitation. AORTIC VALVE: There is a normally functioning 29 mm Suarez Tona 3 Ultra bioprosthetic valve. Doppler: There is trivial perivalvular regurgitation. Dimensionless index: 0.87. The valve area by the velocity-time integral method is 4.7 cm^2. The valve area index by the velocity-time integral method is 1.9 cm^2/m^2. The mean systolic gradient is 5 mm Hg. The peak systolic gradient is 10 mm Hg. The peak systolic velocity is 1.6 m/sec. TRICUSPID VALVE: Doppler: There is no significant regurgitation. AORTA: The aorta is mildly dilated. PERICARDIUM: There is no pericardial effusion. Pre procedure: Severe aortic stenosis. Mild aortic regurgitation. Mean gradient 40 mmHg, peak gradient 58 mmHg. Post procedure: No evidence for aortic stenosis. Aortic valve velocity is decreased from baseline. Trivial paravalvular aortic regurgitation. Measurements Value Reference Ascending aorta ID, A-P, S 4.0 cm --------- Ascending aorta ID/bsa, A-P, S 1.6 cm/m^2 --------- Pre procedure Value Reference LVOT peak velocity, S 0.98 m/sec --------- LVOT VTI, S 27.0 cm --------- Aortic valve peak velocity, S 3.72 m/sec --------- Aortic valve mean velocity, S 2.9 m/sec --------- Aortic peak gradient, S 55 mm Hg --------- Aortic mean gradient, S 37 mm Hg --------- Aortic valve VTI, S 104.0 cm --------- AoV area, VTI 1.4 cm^2 --------- Velocity ratio, peak, LVOT/AV 0.26 --------- VTI ratio, LVOT/AV 0.26 --------- Post procedure Value Reference LVOT peak velocity, S 1.23 m/sec --------- LVOT VTI, S 31.1 cm --------- Aortic valve peak velocity, S 1.58 m/sec --------- Aortic valve mean velocity, S 1.08 m/sec --------- Aortic peak gradient, S 10 mm Hg --------- Aortic mean gradient, S 5 mm Hg --------- Aortic valve VTI, S 36.0 cm --------- AoV area, VTI 4.6 cm^2 --------- Velocity ratio, peak, LVOT/AV 0.78 --------- VTI ratio, LVOT/AV 0.86 --------- Left ventricle Value Reference LV ID, ED 5.7 cm 4.2 - 5.8 LV ID, ES (H) 4.2 cm 2.5 - 4.0 LV ID/bsa, ED 2.3 cm/m^2 2.2 - 3.0 LV ID/bsa, ES 1.7 cm/m^2 1.3 - 2.1 LV PW thickness, ED (H) 1.6 cm 0.6 - 1.0 LV PW/LV ID ratio, ED 0.27 --------- LV wall mass (H) 387 g 96 - 200 LV wall mass/bsa (H) 156 g/m^2 50 - 102 LV ejection fraction, 2-p (L) 50 % 52 - 72 Ventricular septum Value Reference IVS thickness, ED (H) 1.4 cm 0.6 - 1.0 LVOT Value Reference LVOT ID, A-P 2.6 cm --------- LVOT mean velocity, S 1 m/sec --------- LVOT peak gradient, S 7 mm Hg --------- Stroke volume (SV), LVOT DP 165 ml --------- Stroke (more content not included)... [employer] Work Phone: [employer] Work Phone: Echo Limited Echo w/wo Contr cindy 10-16-2020 Echo Limited Echo w/wo Contrast Patient Name: AXEL SERRANO Ultrasound ACCESSION EXAM DATE/TIME PROCEDURE ORDERING PROVIDER [id number] 10/16/2020 09:05 EDT Echo Limited Echo w/wo MD SHREYA, CURRY Benitez Reason For Exam (Echo Limited Echo w/wo Contrast) TAVR procedure Report LIMITED TRANSTHORACIC ECHOCARDIOGRAM Perioperative - TAVR PATIENT: Yue, STUDY DATE: 10/16/2020 Axel : 1940 AGE: 80 HT/WT: 177.8 cm (70 135.6 kg (298.4 in) lb) GENDER: M BP: 148 / 74 LOCATION: [facility] PATIENT Inpatient main STATUS: *ORDERING PHYSICIAN: * Curry Shore MD *READING PHYSICIAN: * Danyel, *MANAGER OF APPLICATIONS DEVELOPMENT: * Esther Rivero MD RD, AE INDICATIONS: TAVR assessment. Aortic stenosis. HISTORY: Aortic valve replacement with a 29 mmbioprosthetic valve. CONCLUSIONS SUMMARY: 1. Left ventricle: Systolic function is at the lower limits of normal by visual assessment. The estimated ejection fraction is 50%. 2. Pre procedure: Severe aortic stenosis. Mild aortic regurgitation. The mean aortic valve systolic gradient is 37 mm Hg. 3. Post procedure: The mean aortic valve systolic gradient is 5 mm Hg. 4. Successful TAVR. The trileaflet bioprosthesis is well-seated with normal leaflet excursion. There is trivial perivalvular regurgitation. STUDY DATA: Transthoracic echocardiography, limited study. Procedure: Image quality was adequate. The study was technically limited due to poor acoustic window availability. Limited 2D, limited spectral Doppler, and color flow Doppler images were acquired and archived for permanent storage and are available for subsequent review. Study status: Routine. Patient status: Inpatient. Location: Hybrid operating room. Ultrasound Report FINDINGS LEFT VENTRICLE: Not well visualized. Systolic function is at the lower limits of normal by visual assessment. The estimated ejection fraction is 50%. RIGHT VENTRICLE: Systolic function is normal. MITRAL VALVE: Doppler: There is trivial, less than 1+ regurgitation. AORTIC VALVE: There is a normally functioning 29 mm Suarez Tona 3 Ultra bioprosthetic valve. Doppler: There is trivial perivalvular regurgitation. Dimensionless index: 0.87. The valve area by the velocity-time integral method is 4.7 cm^2. The valve area index by the velocity-time integral method is 1.9 cm^2/m^2. The mean systolic gradient is 5 mm Hg. The peak systolic gradient is 10 mm Hg. The peak systolic velocity is 1.6 m/sec. TRICUSPID VALVE: Doppler: There is no significant regurgitation. AORTA: The aorta is mildly dilated. PERICARDIUM: There is no pericardial effusion. Pre procedure: Severe aortic stenosis. Mild aortic regurgitation. Mean gradient 40 mmHg, peak gradient 58 mmHg. Post procedure: No evidence for aortic stenosis. Aortic valve velocity is decreased from baseline. Trivial paravalvular aortic regurgitation. Measurements Value Reference Ascending aorta ID, A-P, S 4.0 cm --------- Ascending aorta ID/bsa, A-P, S 1.6 cm/m^2 --------- Pre procedure Value Reference LVOT peak velocity, S 0.98 m/sec --------- LVOT VTI, S 27.0 cm --------- Aortic valve peak velocity, S 3.72 m/sec --------- Aortic valve mean velocity, S 2.9 m/sec --------- Aortic peak gradient, S 55 mm Hg --------- Aortic mean gradient, S 37 mm Hg --------- Aortic valve VTI, S 104.0 cm --------- AoV area, VTI 1.4 cm^2 --------- Velocity ratio, peak, LVOT/AV 0.26 --------- VTI ratio, LVOT/AV 0.26 --------- Post procedure Value Reference LVOT peak velocity, S 1.23 m/sec --------- LVOT VTI, S 31.1 cm --------- Aortic valve peak velocity, S 1.58 m/sec --------- Aortic valve mean velocity, S 1.08 m/sec --------- Aortic peak gradient, S 10 mm Hg --------- Aortic mean gradient, S 5 mm Hg --------- Aortic valve VTI, S 36.0 cm --------- AoV area, VTI 4.6 cm^2 --------- Velocity ratio, peak, LVOT/AV 0.78 --------- VTI ratio, LVOT/AV 0.86 --------- Left ventricle Value Reference LV ID, ED 5.7 cm 4.2 - 5.8 LV ID, ES (H) 4.2 cm 2.5 - 4.0 LV ID/bsa, ED 2.3 cm/m^2 2.2 - 3.0 LV ID/bsa, ES 1.7 cm/m^2 1.3 - 2.1 LV PW thickness, ED (H) 1.6 cm 0.6 - 1.0 LV PW/LV ID ratio, ED 0.27 --------- LV wall mass (H) 387 g 96 - 200 Ultrasound Report LV wall mass/bsa (H) 156 g/m^2 50 - 102 LV ejection fraction, 2-p (L) 50 % 52 - 72 Ventricular septum Value Reference IVS thickness, ED (H) 1.4 cm 0.6 (more content not included)... [facility] Gl[facility],Bedsideon 10-16-2020 Glucose [Mass/Vol] 161 mg/dL High 70-100 [facility] [employer] [facility] Comment on above: Result Comment: Test performed by glucose meter. Results may be 10%-15% lower than serum/plasma values. (CLIA ID [id number]) Performed By: #### B GLU ####[address] [place] [address] Hemogramon 10-16-2020 Erythrocyte distribution width (RBC) [Ratio] 15.5 % High 11.5-14.5 [facility] [employer] [facility] Comment on above: Performed By: #### H EMOG, BMP3 #### [address] [address] [place] [address] Hematocrit (Bld) [Volume fraction] 31.3 % Low 40.0-52.0 [facility] Comment on above: Performed By: #### H DESTINEE BMP3 #### [place] [address] [place], [place] Hemoglobin (Bld) [Mass/Vol] 10.8 g/dL Low 13.0-18.0 [facility] Comment on above: Performed By: #### Braden FELIPE BMP3 #### [place] [address] [place], [place] MCH (RBC) [Entitic mass] 29.6 pg Normal 26.0-34.0 [facility] Comment on above: Performed By: #### Braden FELIPE BMP3 #### [place] [address] [place], [place] MCHC 34.4 % Normal 32.0-36.0 [facility] Comment on above: Performed By: #### Braden FELIPE BMP3 #### [place] [address] [place], [place] MCV (RBC) [Entitic vol] 86.1 fL Normal 80.0-98.0 [facility] Comment on above: Performed By: #### Braden FELIPE BMP3 #### [place] [address] [place], [place] Platelet mean volume (Bld) [Entitic vol] 8.6 fL Normal 7.4-10.4 [facility] Comment on above: Performed By: #### Braden FELIPE BMP3 #### [place] [address] [place], [place] Platelets (Bld) [#/Vol] 149 10*3/uL Normal 140-440 [facility] Comment on above: Performed By: #### Braden FELIPE BMP3 #### [place] [address] [place], [place] RBC (Bld) [#/Vol] 3.64 10*6/uL Low 4.40-5.90 [facility] Comment on above: Performed By: #### Braden FELIPE BMP3 #### [place] [address] [place] [address] WBC (Bld) [#/Vol] 6.8 10*3/uL Normal 3.6-10.7 [facility] Comment on above: Performed By: #### H MARYBEL FELIPE #### [address] [address] OPERATIVE REPORTOrdered By: 3m Scanning on 10-16-2020 [facility] Work Phone: Op Noteon 10-16-2020 Op Note TAVR Procedural Repo rt Interventional Cardiologists: -Curry Shore MD -Carter Mistry MD Cardiothoracic Surgeon: -Mago Doyle MD Procedure: 1. A 29 TONA S3 VALVE IMPLANTATION. 2. TRANSFEMORAL TRANSCATHETER AORTIC VALVE REPLACEMENT. Preoperative Diagnosis: Severe and symptomatic aortic stenosis. Postoperative Diagnosis: Severe aortic stenosis. Anesthesia: Conscious Sedation History of Present Illness: This is a very pleasant 80 y.o. male with a history of severe and symptomatic aortic stenosis. his case was discussed in our multidisciplinary valve conference and was felt to be of appropriate candidacy for TAVR. The pros, cons, risks, benefits, and alternatives of transcatheter aortic valve replacement were reviewed with the patient, and questions were answered, he provided informed consent and wished to proceed with the procedure. Description of Procedure: The patient was brought to the operating suite by anesthesia. The patient was placed under light sedation. The patient was then cleaned, prepped and draped in the normal sterile manner for both open-heart surgery and heart catheterization. Access was then gained in the right femoral artery, right radial artery, and right femoral vein. Via the right femoral vein, a 6 Malaysian sheath was placed and temporary pacing wire was placed into the RV apex with appropriate capture, in addition sterile tubing was attached and given the anesthesia for central access. Via right radial artery, a 6-Malaysian sheath was placed and the pigtail catheter was placed into the aortic annulus with confirmation the implant angle. Via the right femoral artery, a 6-Malaysian sheath was placed. The patient was then heparinized. Next, two Perclose devices were used using the pre-close strategy. A Super Stiff wire was then placed through the second Perclose into the descending aorta. Then, a 16-Malaysian Tona E-sheath was introduced over the wire into the descending aorta. The sheath was then flushed. Next, an AL1 catheter and a straight wire were used to cross the aortic valve through the e- sheath. The straight wire was then removed and an Amplatz extra stiff wire (formed into a curve) was placed into the LV apex. Next, the AL1 catheter was removed. Next a 29mm Tona S3 valve was then advanced through the sheath into the descending aorta.The valve was then mounted on the balloon, the delivery catheter was flexed and advanced around the aortic arch and across the aortic annulus. The valve was then deployed under rapid pacing. Next, the delivery catheter, extra stiff wire, and large sheath were removed and the Perclose devices were used for hemostasis. A radial band was used for hemostasis of the additional arterial site. Manual pressure was used for hemostasis of the femoral venous access site. Overall, the patient tolerated the procedure well with minimal blood loss. No immediate complications. The patient will return to the Cardiac Care unit for continued monitoring. It was a pleasure taking care of your patient while hospitalized at [facility]. I will continue to follow along while hospitalized. Please do not hesitate to call with any questions. [facility] PO[facility] GlucoseOrdered By: Uvaldo Shore on 10-16-2020 Glucose [Mass/Vol] 161 mg/dL High 70 - 100 mg/dL [employer] Work Phone: Comment on above: Test performed by [employer] ucose meter. Results may be 10%-15% lower than serum/plasma values. (CLIA ID [id number]) Interpretation and review of laboratory results Abnormal [employer] Work Phone: Test Performed by [employer], [facility] [place] [address] [facility] Work Phone: [employer] Work Phone: Brain Natriuretic PeptideOrd ered By: Curry Shore on 10-03-2020 Interpretation and review of laboratory results Abnormal [facility] Work Phone: Natriuretic peptide B (Bld) [Mass/Vol] 2995 pg/mL High 0 - 450 pg/mL [employer] Work Phone: Test Performed by [employer], [facility] [place] [address] [facility] Work Phone: [phone] [facility] Work Phone: [phone] CBC Auto DifferentialOrdered By: Curry Shore on 10-03-2020 Absolute Baso # 0.0 10*3/uL 0.0 - 0.2 10*3/uL [facility] Work Phone: [phone] Absolute Neut # 5.0 10*3/uL 1.8 - 7.0 10*3/uL [facility] Work Phone: [phone] Basophils/100 WBC (Bld) 0.6 % 0.0 - 2.0 % [facility] Work Phone: [phone] Eosinophils (Bld) [#/Vol] 0.3 10*3/uL 0.0 - 0.5 10*3/uL [facility] Work Phone: [phone] Eosinophils/100 WBC (Bld) 3.8 % 1.0 - 6.0 % [facility] Work Phone: [phone] Granulocytes/100 WBC (Bld) 65.2 % 40.0 - 80.0 % [facility] Work Phone: [phone] Hematocrit (Bld) [Volume fraction] 33.4 % Low 40.0 - 52.0 % [facility] Work Phone: [phone] Hemoglobin.gastrointest inal spec 1 Ql (Stl) 11.4 g/dL Low 13.0 - 18.0 g/dL [facility] Work Phone: [phone] Interpretation and review of laboratory results Abnormal [facility] Work Phone: [phone] Lymphocytes (Bld) [#/Vol] 1.5 10*3/uL 1.0 - 4.3 10*3/uL [facility] Work Phone: [phone] Lymphocytes/100 WBC (Bld) 20.0 % 20.0 - 40.0 % [facility] Work Phone: [phone] MCH (RBC) [Entitic mass] 29.5 pg 26.0 - 34.0 pg [facility] Work Phone: [phone] MCHC (RBC) [Mass/Vol] 34.1 % 32.0 - 36.0 % [facility] Work Phone: [phone] MCV (RBC) [Entitic vol] 86.4 fL 80.0 - 98.0 fL [facility] Work Phone: Monocytes (Bld) [#/Vol] 0.8 10*3/uL 0.0 - 0.8 10*3/uL [facility] Work Phone: [phone] Monocytes/100 WBC (Bld) 10.4 % High 2.0 - 10.0 % [facility] Work Phone: [phone] Platelet distribution width (Bld) [Ratio] 15.4 % High 11.5 - 14.5 % [employer] Work Phone: [phone] Platelet mean volume (Bld) [Entitic vol] 8.6 fL 7.4 - 10.4 fL [employer] Work Phone: [phone] Platelets (Bld) [#/Vol] 185 10*3/uL 140 - 440 10*3/uL [employer] Work Phone: [phone] RBC (Bld) [#/Vol] 3.87 10*6/uL Low 4.40 - 5.90 10*6/uL [facility] Work Phone: [phone] WBC (Bld) [#/Vol] 7.7 10*3/uL 3.6 - 10.7 10*3/uL [employer] Work Phone: Test Performed by [facility], [address] [place] [address] [facility] Work Phone: [phone] [facility] Work Phone: CR Chest PA/LATon 10-03-2020 CR Chest PA/LAT Patient Name: AXEL CHAMBERLAIN Diagnostic Radiology ACCESSION EXAM DATE/TIME PROCEDURE ORDERING PROVIDER [id number] 10/03/2020 13:36 EDT CR Chest PA and LAT BRIAN MISTRY MEGGAN CPT code 81587 Reason For Exam (CR Chest PA and LAT) pre-op Report Indication: Preoperative clearance. Frontal and lateral views of the chest were obtained with no prior studies available for comparison. The heart is mildly enlarged. Atherosclerotic calcifications of the thoracic aorta are visualized. The mediastinum is normal in appearance. There is no pulmonary vascular congestion. The lungs are clear. There are degenerative changes of the spine. IMPRESSION: 1. No active intrathoracic disease. Mild cardiomegaly. Report Dictated on Final Dictated: 10/03/2020 1:38 pm Dictating Physician: DO BENNETT ANTHONY Signed Date and Time: 10/03/2020 1:41 pm Signed by: DO BENNETT ANTHONY Transcribed Date and Time: 10/03/2020 1:38 Normal [facility] CTA Chest/Abdomen/Pelvis w/ + w/o contraon 10-03-2020 CTA Chest/Abdomen/Pelvis w/ + w/o contra Patient Name: AXEL SERRANO Computed Tomography ACCESSION EXAM DATE/TIME PROCEDURE ORDERING PROVIDER [id number] 10/03/2020 13:37 EDT CTA Chest/Abdomen/Pelvis ADRIENNE LARA MICHELLE w/ + w/o contra CPT code 52743 [id number] Reason For Exam (CTA Chest/Abdomen/Pelvis w/ + w/o contra) TAVR Report [facility] Valve [facility] Cardiovascular CTA Indication: 80-year-old year-old woman with severe aortic stenosis, being evaluated for transcatheter aortic valve implantation. Technique: Computed tomography of the heart, thoracoabdominal aorta, and iliofemoral system was performed using a [employer] Aquilion One 320 detector scanner. Images were reconstructed and analyzed on an advanced post-processing 3D workstation. Contrast: 100 mL 11 3370. Total DLP: 1220 mGy-cm. Study Quality: Excellent Extracardiac Findings: No mediastinal, hilar or axillary adenopathy. Lungs and pleural spaces are normal. Thoracic degenerative spondylosis. Cholecystectomy clips. No biliary dilatation. The liver, spleen, pancreas, bilateral adrenal glands and kidneys enhance normally. No hydronephrosis. Sigmoid diverticulosis. Urinary bladder is normally distended. There is a small left inguinal fat-containing hernia. Lumbar degenerative spondylosis. Cardiac Chambers: The pericardium is unremarkable. The left and right ventricles are normal in size. The left atrium is mildly dilated. The left atrial appendage is normal in appearance. The right atrium is normal size Coronary Arteries: The coronaries have normal origins. There is a pattern of right coronary dominance. There is evidence of coronary atherosclerosis. The present study was not optimized for evaluation of the coronary arteries. Mitral Valve: Mitral annular calcification. The anterior mitral leaflet is free of the LVOT during systole. Aortic Valve: The aortic valve is tricuspid. Aortic valve area by planimetry at 35% R-R Interval: 1.7 cm2 Computed Tomography Report Predicted deployment angle (3-cusp view): ULRICH 5, ATTENDANCE SECRETARY 4 Aortic Annulus: Dimensions: 3.6 x 2.6 cm Area: 6.67 cm2 Perimeter: 96.2 mm Left coronary height: 10.7 mm Right Coronary height: 9 mm Aorta and Iliofemoral System Note: All vascular measurements are minimal luminal diameters using a centerline technique. Aortic Root and Thoracic Aorta: Sinuses: 36 mm Sinotubular junction: 37 x 35 mm Mid ascending Aorta: 37 mm Abdominal Aorta: Infrarenal: 25 mm Bifurcation: 20 mm Right Iliac System: Calcification: mild. Tortuosity: Mild RCIA: 12.7 mm REIA: 11.7 mm RCFA: 12.3 mm Left Iliac System: Calcification: mild. Tortuosity: mild (1.14). LCIA: 13.2 mm MARS: 12.7 mm LCFA: 11.5 mm CONCLUSIONS: 1. Calcific aortic stenosis, with descriptive anatomy and annular / aortic root measurements as detailed above. 2. Patent bilateral iliofemoral system as detailed above. 3. Small left inguinal hernia. Sigmoid diverticulosis. 4. Coronary artery atherosclerosis. Report Dictated on Final Dictated: 10/04/2020 6:04 am Dictating Physician: YANE MONROE DO, I Signed Date and Time: 10/04/2020 6:16 am Signed by: YANE MONROE DO, I Transcribed Date and Time: 10/04/2020 6:04 Normal [facility] Comp Metabolic Panelon 10-03 ALT [Catalytic activity/Vol] 10 U/L Normal 0-49 [facility] [employer] [facility] Comment on above: Result Comment: The ALT test is performed by an updated assay method. Please note that the reference intervals have been changed and are now sex specific. Performed By: #### H EMDF, CMP3, BNP3 #### [facility] [address] [place] [address] Calcium [Mass/Vol] 9.5 mg/dL Normal 8.4-10.4 [facility] Comment on above: Performed By: #### H EMDF, CMP3, BNP3 #### [facility] [address] [place] [address] Glucose [Mass/Vol] 77 mg/dL Normal 70-100 [facility] Comment on above: Performed By: #### H EMDF, CMP3, BNP3 #### [facility] [address] [place] [address] ALP [Catalytic activity/Vol] 32 U/L Low 38-126 [facility] Comment on above: Performed By: #### H EMDF, CMP3, BNP3 #### [facility] [address] [place] [address] Anion gap [Moles/Vol] 8 mmol/L Normal 3-13 [facility] Comment on above: Performed By: #### H EMDF, CMP3, BNP3 #### [facility] [address] [place], [place] AST [Catalytic activity/Vol] 19 U/L Normal 15-46 [facility] Comment on above: Performed By: #### H EMDF, CMP3, BNP3 #### [facility] [address] [place] [address] Bilirubin [Mass/Vol] 0.6 mg/dL Normal 0.2-1.3 [facility] Comment on above: Performed By: #### H EMDF, CMP3, BNP3 #### [facility] [address] [place] [address] CO2 [Moles/Vol] 26 mmol/L Normal 22-30 [facility] Comment on above: Performed By: #### H EMDF, CMP3, BNP3 #### [facility] [address] [place] [address] Creatinine [Mass/Vol] 1.34 mg/dL High 0.52-1.25 [facility] Comment on above: Performed By: #### H EMDF, CMP3, BNP3 #### [facility] [address] [place] [address] GFR/1.73 sq M.predicted among blacks MDRD (S/P/Bld) [Vol rate/Area] 57.4 mL/min/{1.73_m2} Abnormal >60 [facility] Comment on above: Performed By: #### H EMDF, CMP3, BNP3 #### [facility] [address] [place] [address] GFR/1.73 sq M.predicted among non-blacks MDRD (S/P/Bld) [Vol rate/Area] 49.5 mL/min/{1.73_m2} Abnormal >60 [facility] Comment on above: Result Comment: KDIG O guidelines provide the following GFR categories: Stage GFR(ml/min/1.73 m2) Terms G1 >=90 Normal or high G2 60-89 Mildly decreased* G3a 45-59 Mildly to moderately decreased G3b 30-44 Moderately to severely decreased G4 15-29 Severely decreased G5 <15 Kidney failure *Relative to young adult level. In the absence of evidence of kidney damage, neither GFR category G1 nor G2 fulfill the criteria for CKD. The CKD-EPI equation is validated in individuals 18 years of age and older. Currently the best equation for estimating glomerular filtration rate (GFR) from serum creatinine in children is the Bedside Mccollum equation. It is less accurate in patients with extremes of muscle mass, restriction of dietary protein, ingestion of creatine, extra-renal metabolism of creatinine, or treatment with medications that affect renal tubular creatinine secretion. Performed By: #### H EMDF, CMP3, BNP3 #### [facility] [address], [place] Protein [Mass/Vol] 6.8 g/dL Normal 6.3-8.2 [facility] Comment on above: Performed By: #### H EMDF, CMP3, BNP3 #### [place] [address] [place], [place] Urea nitrogen [Mass/Vol] 33 mg/dL High 7-20 [facility] Comment on above: Performed By: #### H EMDF, CMP3, BNP3 #### [facility] [address] [place] [address] Potassium [Moles/Vol] 4.9 mmol/L Normal 3.5-5.1 [facility] Comment on above: Performed By: #### H EMDF, CMP3, BNP3 #### [facility] [address] [place] [address] Sodium [Moles/Vol] 136 mmol/L Normal 135-145 [facility] Comment on above: Performed By: #### H EMDF, CMP3, BNP3 #### [facility] [address] [place] [address] Albumin [Mass/Vol] 3.6 g/dL Normal 3.5-5.0 [facility] Comment on above: Performed By: #### H EMDF, CMP3, BNP3 #### [address] [place] [address] Chloride [Moles/Vol] 102 mmol/L Normal 98-107 [facility] Comment on above: Performed By: #### H EMDF, CMP3, BNP3 #### [facility] [place] [address] Comprehensive Metabolic Pane lOrdered By: Curry Shore on 10-03-2020 Albumin [Mass/Vol] 3.6 g/dL 3.5 - 5.0 g/dL [facility] Work Phone: ALP (Bld) [Catalytic activity/Vol] 32 U/L Low 38 - 126 U/L [facility] Work Phone: ALT [Catalytic activity/Vol] 10 U/L 0 - 49 U/L [facility] Work Phone: Comment on above: The ALT test is perf ormed by an updated assay method. Please note that the reference intervals have been changed and are now sex specific. Anion gap [Moles/Vol] 8 mmol/L 3 - 13 mmol/L [facility] Work Phone: AST [Catalytic activity/Vol] 19 U/L 15 - 46 U/L [facility] Work Phone: Bilirubin [Mass/Vol] 0.6 mg/dL 0.2 - 1 .3 mg/dL [facility] Work Phone: Calcium [Mass/Vol] 9.5 mg/dL 8.4 - 10. 4 mg/dL [facility] Work Phone: Chloride [Moles/Vol] 102 mmol/L 98 - 10 7 mmol/L [facility] Work Phone: CO2 [Moles/Vol] 26 mmol/L 22 - 30 mmol/L [facility] Work Phone: Creatinine [Mass/Vol] 1.34 mg/dL High 0.52 - 1.25 mg/dL [facility] Work Phone: EGFR IF NonAfrican Icelandic 49.5 mL/min Abnormal >60 [facility] Work Phone: Comment on above: KDIGO guidelines pro vide the following GFR categories: Stage GFR(ml/min/1.73 m2) Terms G1 >=90 Normal or high G2 60-89 Mildly decreased* G3a 45-59 Mildly to moderately decreased G3b 30-44 Moderately to severely decreased G4 15-29 Severely decreased G5 <15 Kidney failure *Relative to young adult level. In the absence of evidence of kidney damage, neither GFR category G1 nor G2 fulfill the criteria for CKD. The CKD-EPI equation is validated in individuals 18 years of age and older. Currently the best equation for estimating glomerular filtration rate (GFR) from serum creatinine in children is the Bedside Mccollum equation. It is less accurate in patients with extremes of muscle mass, restriction of dietary protein, ingestion of creatine, extra-renal metabolism of creatinine, or treatment with medications that affect renal tubular creatinine secretion. Free PSA/Total PSA [Mass fraction] 6.8 g/dL 6.3 - 8.2 g/dL [facility] Work Phone: GFR/1.73 sq M.predicted among blacks MDRD (S/P/Bld) [Vol rate/Area] 57.4 mL/min/{1.73_m2} Abnormal >60 [facility] Work Phone: Glucose [Mass/Vol] 77 mg/dL 70 - 100 mg/dL [facility] Work Phone: Interpretation and review of laboratory results Abnormal [facility] Work Phone: Potassium [Moles/Vol] 4.9 mmol/L 3.5 - 5.1 mmol/L [facility] Work Phone: Sodium [Moles/Vol] 136 mmol/L 135 - 145 mmol/L [facility] Work Phone: Urea nitrogen (BldV) [Mass/Vol] 33 mg/dL High 7 - 20 mg/dL [facility] Work Phone: Test Performed by [facility], [address] [place] [address] [facility] Work Phone: [facility] Work Phone: Hemogram w/ Autodiffon 10-03 Abs Baso Cnt 0.0 10*3/uL Normal 0.0-0.2 [facility] Comment on above: Performed By: #### H EMDF, CMP3, BNP3 #### [address] Abs Neutrophile Cnt 5.0 10*3/uL Normal 1.8-7.0 [facility] Comment on above: Performed By: #### H EMDF, CMP3, BNP3 #### [address] Basophils/100 WBC (Bld) 0.6 % Normal 0.0-2.0 [facility] Comment on above: Performed By: #### H EMDF, CMP3, BNP3 #### [address] [address] Eosinophils (Bld) [#/Vol] 0.3 10*3/uL Normal 0.0-0.5 [facility] Comment on above: Performed By: #### H EMDF, CMP3, BNP3 #### [address] [address] Eosinophils/100 WBC (Bld) 3.8 % Normal 1.0-6.0 [facility] Comment on above: Performed By: #### H EMDF, CMP3, BNP3 #### [address] Erythrocyte distribution width (RBC) [Ratio] 15.4 % High 11.5-14.5 [facility] Comment on above: Performed By: #### H EMDF, CMP3, BNP3 #### [address] [address] [address] [place], [place] Granulocytes/100 WBC (Bld) 65.2 % Normal 40.0-80.0 [facility] Comment on above: Performed By: #### H EMDF, CMP3, BNP3 #### [address] [address] [address] [place], [place] Hematocrit (Bld) [Volume fraction] 33.4 % Low 40.0-52.0 [facility] Comment on above: Performed By: #### H EMDF, CMP3, BNP3 #### [address] [address] [place], [place] Hemoglobin (Bld) [Mass/Vol] 11.4 g/dL Low 13.0-18.0 [facility] Comment on above: Performed By: #### H EMDF, CMP3, BNP3 #### [address] [address] [address] [place], [place] Lymphocytes (Bld) [#/Vol] 1.5 10*3/uL Normal 1.0-4.3 [facility] Comment on above: Performed By: #### H EMDF, CMP3, BNP3 #### [address] [address] [place], [place] Lymphocytes/100 WBC (Bld) 20.0 % Normal 20.0-40.0 [facility] Comment on above: Performed By: #### H EMDF, CMP3, BNP3 #### [address] [address] [address] [place], [place] MCH (RBC) [Entitic mass] 29.5 pg Normal 26.0-34.0 [facility] Comment on above: Performed By: #### H EMDF, CMP3, BNP3 #### [address] [address] [place], [place] MCHC 34.1 % Normal 32.0-36.0 [facility] Comment on above: Performed By: #### H EMDF, CMP3, BNP3 #### [address] [address] [address] [place], [place] MCV (RBC) [Entitic vol] 86.4 fL Normal 80.0-98.0 [facility] Comment on above: Performed By: #### H EMDF, CMP3, BNP3 #### [address] [address] [place], [place] Monocytes (Bld) [#/Vol] 0.8 10*3/uL Normal 0.0-0.8 [facility] Comment on above: Performed By: #### H EMDF, CMP3, BNP3 #### [address] [address] [place], [place] Monocytes/100 WBC (Bld) 10.4 % High 2.0-10.0 [facility] Comment on above: Performed By: #### H EMDF, CMP3, BNP3 #### [address] [address] [address] [place], [place] Platelet mean volume (Bld) [Entitic vol] 8.6 fL Normal 7.4-10.4 [facility] Comment on above: Performed By: #### H EMDF, CMP3, BNP3 #### [address] [address] [place], [place] Platelets (Bld) [#/Vol] 185 10*3/uL Normal 140-440 [facility] Comment on above: Performed By: #### H EMDF, CMP3, BNP3 #### [address] [address] [address] [place], [place] RBC (Bld) [#/Vol] 3.87 10*6/uL Low 4.40-5.90 [facility] Comment on above: Performed By: #### H EMDF, CMP3, BNP3 #### [address] WBC (Bld) [#/Vol] 7.7 10*3/uL Normal 3.6-10.7 [facility] Comment on above: Performed By: #### H EMDF, CMP3, BNP3 #### [address] [address] [place] [address] NT pro BNPon 10-03-2020 Natriuretic peptide B (Bld) [Mass/Vol] 2995 pg/mL High 0-450 [facility] Comment on above: Performed By: #### H EMDF, CMP3, BNP3 #### [address] [address] TS GELon 10-03-2020 TS GEL ABO Group: A Rh, Gel: POS Antibody Screen Gel: NEG Normal [facility] Comment on above: Performed By: #### L RC ####[address] [address]#### TSGL ####[facility] [employer] TYPE AND SCREENOrdered By: Nemo Shore on 10-03-2020 ABO Grouping A [employer] Work Phone: Rh Type Positive [employer] Work Phone: Test Performed by [facility], [address] [place] [address] [facility] Work Phone: [employer] Work Phone: XR CHEST (2 VW)Ordered By: Mery Mistry on 10-03-2020 Patient Name: AXEL CHAMBERLAIN Diagnostic Radiology ACCESSION EXAM DATE/TIME PROCEDURE ORDERING PROVIDER [id number] 10/03/2020 13:36 EDT CR Chest PA & LAT BRIAN MISTRY MEGGAN CPT code 82841 Reason For Exam (CR Chest PA & LAT) pre-op Report Indication: Preoperative clearance. Frontal and lateral views of the chest were obtained with no prior studies available for comparison. The heart is mildly enlarged. Atherosclerotic calcifications of the thoracic aorta are visualized. The mediastinum is normal in appearance. There is no pulmonary vascular congestion. The lungs are clear. There are degenerative changes of the spine. IMPRESSION: 1. No active intrathoracic disease. Mild cardiomegaly. Report Dictated on --- Final --- Dictated: 10/03/2020 1:38 pm Dictating Physician: DO BENNETT ANTHONY Signed Date and Time: 10/03/2020 1:41 pm Signed by: DO BENNETT ANTHONY Transcribed Date and Time: 10/03/2020 1:38 [facility] Work Phone: Linda Camargo Incoming Radiology Results From [facility] - 10/03/2020 1:42 PM EDT Patient Name: AXEL SERRANO Diagnostic Radiology ACCESSION EXAM DATE/TIME PROCEDURE ORDERING PROVIDER [id number] 10/03/2020 13:36 EDT CR Chest PA & LAT BRIAN MISTRY MEGGAN CPT code 37099 Reason For Exam (CR Chest PA & LAT) pre-op Report Indication: Preoperative clearance. Frontal and lateral views of the chest were obtained with no prior studies available for comparison. The heart is mildly enlarged. Atherosclerotic calcifications of the thoracic aorta are visualized. The mediastinum is normal in appearance. There is no pulmonary vascular congestion. The lungs are clear. There are degenerative changes of the spine. IMPRESSION: 1. No active intrathoracic disease. Mild cardiomegaly. Report Dictated on --- Final --- Dictated: 10/03/2020 1:38 pm Dictating Physician: DO BENNETT ANTHONY Signed Date and Time: 10/03/2020 1:41 pm Signed by: DO BENNETT ANTHONY Transcribed Date and Time: 10/03/2020 1:38 [facility] Work Phone: [facility] Work Phone: Office Visiton 03-24-2017 Dietary management education, guidance, and counseling (procedure) yes Invalid Interpretation Code [facility] Work Phone: Documentation of current medications (procedure) Done Invalid Interpretation Code [facility] Work Phone: Fall risk assessment No Invalid Interpretation Code [facility] Work Phone: Replaced Document: Chivo Sibley CG Observationson 03-24-2017 EKG QRS axis -41 deg Invalid Interpretation Code [facility] Work Phone: Interpretation Sinus Bradycardia - occasional PAC # PACs = 1.-Left axis -anterior fascicular block. Voltage criteria for LVH (R(aVL) exceeds 1.26 mV). - Nonspecific T-abnormality. ABNORMAL Invalid Interpretation Code [facility] Work Phone: [phone] P [place] 35 deg Invalid Interpretation Code [facility] Work Phone: [phone] [place] Interval 180 ms Invalid Interpretation Code [facility] Work Phone: [phone] Pulse (Heart Rate) 58 /min Invalid Interpretation Code [facility] Work Phone: [phone] QRS Duration 116 ms Invalid Interpretation Code [facility] Work Phone: [phone] QT Interval new path ms Invalid Interpretation Code [facility] Work Phone: [phone] QTc Pascal 431 ms Invalid Interpretation Code [facility] Work Phone: [phone] T [place] 114 deg Invalid Interpretation Code [facility] Work Phone: [phone] Clinical Lists Update: Prelo psych specialist 03-23-2017 Left ventricular Ejection fraction 55 % Invalid Interpretation Code [facility] Work Phone: [phone] Tobacco use CPHS Former smoker Invalid Interpretation Code [facility] Work Phone: [phone] Office Visiton 02-16-2014 Documentation of current medications (procedure) Done Invalid Interpretation Code [facility] Work Phone: [phone] Smoking cessation education (procedure) yes Invalid Interpretation Code [facility] Phone: [phone] Microbiology: CUBFon 2 014 BFC NO GROWTH IN 14 DAYS Invalid Interpretation Code [facility] Work Phone: [phone] Vital Signs Date Time Vital Sign Value Performing Clinician Faci lemuel 01-03-2025 15:22-0400 Diastolic blood pressure 86 mm[Hg] Arsh Polk MD Work Phone: [facility] 01-03-2025 15:22-0400 Systolic blood pressure 126 mm[Hg] Arsh Polk MD Work Phone: [facility] 01-03-2025 14:04-0400 Body mass index (BMI) [Ratio] 37.45 kg/m2 rAsh Polk MD Work Phone: [facility] 01-03-2025 14:04-0400 Body weight 118.39 kg Arsh Polk MD Work Phone: [facility] 01-03-2025 14:04-0400 Heart rate 81 /min Arsh Polk MD Work Phone: [facility] 01-03-2025 14:04-0400 SaO2% (BldA) [Mass fraction] 97 % Arsh Polk MD Work Phone: [facility] 12-26-2024 09:48-0400 Body temperature 96.6 [degF] Yenny Bill Work Phone: [facility] 12-26-2024 09:48-0400 Diastolic blood pressure 50 mm[Hg] Yenny Bill Work Phone: [facility] 12-26-2024 09:48-0400 Heart rate 46 /min Yenny Bill Work Phone: [facility] 12-26-2024 09:48-0400 SaO2% (BldA) [Mass fraction] 95 % Yenny Bill Work Phone: [facility] 12-26-2024 09:48-0400 Systolic blood pressure 94 mm[Hg] Yenny Bill Work Phone: [facility] 11-28-2024 11:05-0400 Body temperature 97.81 [degF] Romina Suppan DIETARY TECH.IGNITER CAPPER Work Phone: [facility] 11-28-2024 11:05-0400 Diastolic blood pressure 64 mm[Hg] Romina Suppan DIETARY TECH.IGNITER CAPPER Work Phone: [facility] 11-28-2024 11:05-0400 Heart rate 65 /min Romina Suppan DIETARY TECH.IGNITER CAPPER Work Phone: [facility] 11-28-2024 11:05-0400 SaO2% (BldA) [Mass fraction] 94 % Romina Suppan DIETARY TECH.IGNITER CAPPER Work Phone: [facility] 11-28-2024 11:05-0400 Systolic blood pressure 136 mm[Hg] Romina Rosariomiguel DIETARY TECH.IGNITER CAPPER Work Phone: [facility] 11-23-2024 13:28-0400 Diastolic blood pressure 67 mm[Hg] Yeyo Fegatelli DIETARY TECH.IGNITER CAPPER Work Phone: [facility] 11-23-2024 13:28-0400 Heart rate 46 /min Yeyo Fegatelli DIETARY TECH.IGNITER CAPPER Work Phone: [facility] 11-23-2024 13:28-0400 Respiratory rate 16 /min Yeyo Fegatelli DIETARY TECH.IGNITER CAPPER Work Phone: [facility] 11-23-2024 13:28-0400 SaO2% (BldA) [Mass fraction] 97 % Yeyo Fegatelli DIETARY TECH.IGNITER CAPPER Work Phone: [facility] 11-23-2024 13:28-0400 Systolic blood pressure 140 mm[Hg] Yeyo Fegatelli DIETARY TECH.IGNITER CAPPER Work Phone: [facility] 11-14-2024 11:33-0400 Body height 182.[address] Arsh Polk MD Work Phone: [facility] 11-14-2024 11:33-0400 Body mass index (BMI) [Ratio] 37.3 kg/m2 Dr. Arsh Polk MD Work Phone: [facility] 11-14-2024 11:33-0400 Body weight 124.[address] Arsh Polk MD Work Phone: [facility] 11-14-2024 11:33-0400 Diastolic blood pressure 64 mm[Hg] Dr. Arsh Polk MD Work Phone: [facility] 11-14-2024 11:33-0400 Heart rate 50 /min Dr. Arsh Polk MD Work Phone: [facility] 11-14-2024 11:33-0400 Respiratory rate 18 /min Dr. Arsh Polk MD Work Phone: [facility] 11-14-2024 11:33-0400 Systolic blood pressure 135 mm[Hg] Dr. Arsh Polk MD Work Phone: [facility] 11-01-2024 08:28-0400 Body mass index (BMI) [Ratio] 39.46 kg/m2 Injection Wstr Work Phone: [facility] 11-01-2024 08:28-0400 Body temperature 98.6 [degF] Injection Wstr Work Phone: [facility] 11-01-2024 08:28-0400 Body weight 124.74 kg Injection Wstr Work Phone: [facility] 11-01-2024 08:28-0400 Diastolic blood pressure 75 mm[Hg] Injection Wstr Work Phone: [facility] 11-01-2024 08:28-0400 Heart rate 50 /min Injection Wstr Work Phone: [facility] 11-01-2024 08:28-0400 SaO2% (BldA) [Mass fraction] 98 % Injection Wstr Work Phone: [facility] 11-01-2024 08:28-0400 Systolic blood pressure 120 mm[Hg] Injection Wstr Work Phone: [facility] 10-20-2024 15:31-0400 Body mass index (BMI) [Ratio] 39.46 kg/m2 Arsh Otto Jr., MD Work Phone: [facility] 10-20-2024 15:31-0400 Body weight 124.74 kg Arsh Otto Jr., MD Work Phone: [facility] 10-20-2024 15:31-0400 Diastolic blood pressure 81 mm[Hg] Arsh Otto Jr., MD Work Phone: [facility] 10-20-2024 15:31-0400 Heart rate 61 /min Arsh Otto Jr., MD Work Phone: [facility] 10-20-2024 15:31-0400 Respiratory rate 16 /min Arsh Otto Jr., MD Work Phone: [facility] 10-20-2024 15:31-0400 SaO2% (BldA) [Mass fraction] 95 % Arsh Otto Jr., MD Work Phone: [facility] 10-20-2024 15:31-0400 Systolic blood pressure 138 mm[Hg] Arsh Otto Jr., MD Work Phone: [facility] 10-04-2024 09:39-0400 Body mass index (BMI) [Ratio] 39.1 kg/m2 Yenny Bill Work Phone: [facility] 10-04-2024 09:39-0400 Body temperature 96.6 [degF] Yenny Bill Work Phone: [facility] 10-04-2024 09:39-0400 Body weight 123.61 kg Yenny Bill Work Phone: [facility] 10-04-2024 09:39-0400 Diastolic blood pressure 74 mm[Hg] Yenny Bill Work Phone: [facility] 10-04-2024 09:39-0400 Heart rate 55 /min Yenny Bill Work Phone: [facility] 10-04-2024 09:39-0400 SaO2% (BldA) [Mass fraction] 99 % Yenny Bill Work Phone: [facility] 10-04-2024 09:39-0400 Systolic blood pressure 139 mm[Hg] Yenny Bill Work Phone: [facility] 09-25-2024 10:40-0400 Body height 177.8 cm Arsh Polk MD Work Phone: [facility] 09-25-2024 10:40-0400 Body mass index (BMI) [Ratio] 39.92 kg/m2 Arsh Polk MD Work Phone: [facility] 09-25-2024 10:40-0400 Body weight 126.19 kg Arsh Pokl MD Work Phone: [facility] 09-25-2024 10:40-0400 Diastolic blood pressure 60 mm[Hg] Arsh Polk MD Work Phone: [facility] 09-25-2024 10:40-0400 Heart rate 58 /min Arsh Polk MD Work Phone: [facility] 09-25-2024 10:40-0400 SaO2% (BldA) [Mass fraction] 97 % Arsh Polk MD Work Phone: [facility] 09-25-2024 10:40-0400 Systolic blood pressure 102 mm[Hg] Arsh Polk MD Work Phone: [facility] 09-03-2024 14:32-0400 Body temperature 97.6 [degF] Dr. Arsh Polk MD Work Phone: [facility] 09-03-2024 14:32-0400 Diastolic blood pressure 82 mm[Hg] Dr. Arsh Polk MD Work Phone: [facility] 09-03-2024 14:32-0400 Heart rate 60 /min Dr. Arsh Polk MD Work Phone: 3(336)[phone] [place] [address] 09-03-2024 14:32-0400 Respiratory rate 18 /min Dr. Arsh Polk MD Work Phone: [facility] 09-03-2024 14:32-0400 SaO2% (BldA) [Mass fraction] 98 % Dr. Arsh Polk MD Work Phone: [facility] 09-03-2024 14:32-0400 Systolic blood pressure 184 mm[Hg] Dr. Arsh Polk MD Work Phone: [facility] 09-03-2024 10:44-0400 Body mass index (BMI) [Ratio] 38.8 kg/m2 Dr. Arsh Polk MD Work Phone: [facility] 09-03-2024 10:44-0400 Body weight [address] Arsh Polk MD Work Phone: 9(471)[phone] [place] [address] 08-09-2024 08:32-0400 Body mass index (BMI) [Ratio] 38 kg/m2 Dr. Arsh Polk MD Work Phone: [facility] 08-09-2024 08:32-0400 Body weight [address] Arsh Polk MD Work Phone: 9(224)934-680724 [place] [address] 08-09-2024 08:32-0400 Diastolic blood pressure 72 mm[Hg] Dr. Arsh Polk MD Work Phone: 6(812)313-392024 [place] [address] 08-09-2024 08:32-0400 Heart rate 58 /min Dr. Arsh Polk MD Work Phone: 6(466)[phone] [place] [address] 08-09-2024 08:32-0400 Respiratory rate 18 /min Dr. Arsh Polk MD Work Phone: 9(115)114-631124 [place] [address] 08-09-2024 08:32-0400 SaO2% (BldA) [Mass fraction] 97 % Dr. Arsh Polk MD Work Phone: 1(910)295-232924 [place] [address] 08-09-2024 08:32-0400 Systolic blood pressure 143 mm[Hg] Dr. Arsh Polk MD Work Phone: 0(650)[phone] [place] [address] 07-10-2024 10:15-0500 Body mass index (BMI) [Ratio] 40.18 kg/m2 Yenny Biggsight Work Phone: [facility] 07-10-2024 10:15-0500 Body temperature 97.81 [degF] Yenny Biggsight Work Phone: [facility] 07-10-2024 10:15-0500 Body weight 127.01 kg Yenny Bill Work Phone: [facility] 07-10-2024 10:15-0500 Diastolic blood pressure 64 mm[Hg] Yenny Bill Work Phone: [facility] 07-10-2024 10:15-0500 Heart rate 55 /min Yenny Bill Work Phone: [facility] 07-10-2024 10:15-0500 SaO2% (BldA) [Mass fraction] 98 % Yenny Bill Work Phone: [facility] 07-10-2024 10:15-0500 Systolic blood pressure 164 mm[Hg] Yennymarquez Biggsight Work Phone: [facility] 06-01-2024 15:04-0500 Body temperature 97.59 [degF] Romina Suppan DIETARY TECH.IGNITER CAPPER Work Phone: [facility] 06-01-2024 15:04-0500 Diastolic blood pressure 62 mm[Hg] Romina Suppan DIETARY TECH.IGNITER CAPPER Work Phone: [facility] 06-01-2024 15:04-0500 Heart rate 57 /min Romina Suppan DIETARY TECH.IGNITER CAPPER Work Phone: [facility] 06-01-2024 15:04-0500 SaO2% (BldA) [Mass fraction] 97 % Romina Suppan DIETARY TECH.IGNITER CAPPER Work Phone: [facility] 06-01-2024 15:04-0500 Systolic blood pressure 115 mm[Hg] Romina Suppan DIETARY TECH.IGNITER CAPPER Work Phone: [facility] 05-29-2024 10:14-0500 Body mass index (BMI) [Ratio] 39.6 kg/m2 Yenny Bill Work Phone: [facility] 05-29-2024 10:14-0500 Body temperature 97.39 [degF] Yenny Bill Work Phone: [facility] 05-29-2024 10:14-0500 Body weight 125.19 kg Yenny Bill Work Phone: [facility] 05-29-2024 10:14-0500 Diastolic blood pressure 78 mm[Hg] Yenny Bill Work Phone: [facility] 05-29-2024 10:14-0500 Heart rate 67 /min Yenny Bill Work Phone: [facility] 05-29-2024 10:14-0500 SaO2% (BldA) [Mass fraction] 97 % Yenny Bill Work Phone: [facility] 05-29-2024 10:14-0500 Systolic blood pressure 125 mm[Hg] Yenny Bill Work Phone: [facility] 04-17-2024 14:37-0500 Body mass index (BMI) [Ratio] 40.75 kg/m2 Injection Wstr Work Phone: [facility] 04-17-2024 14:37-0500 Body temperature 96.3 [degF] Injection Wstr Work Phone: [facility] 04-17-2024 14:37-0500 Body weight 128.82 kg Injection Wstr Work Phone: [facility] 04-17-2024 14:37-0500 Diastolic blood pressure 52 mm[Hg] Injection Wstr Work Phone: [facility] 04-17-2024 14:37-0500 Heart rate 49 /min Injection Wstr Work Phone: [facility] 04-17-2024 14:37-0500 SaO2% (BldA) [Mass fraction] 98 % Injection Wstr Work Phone: [facility] 04-17-2024 14:37-0500 Systolic blood pressure 120 mm[Hg] Injection Wstr Work Phone: [facility] 04-03-2024 10:22-0500 Body temperature 96.4 [degF] Yenny Bill Work Phone: [facility] 04-03-2024 10:22-0500 Diastolic blood pressure 79 mm[Hg] Yenny Bill Work Phone: [facility] 04-03-2024 10:22-0500 Heart rate 67 /min Yenny Bill Work Phone: [facility] 04-03-2024 10:22-0500 SaO2% (BldA) [Mass fraction] 98 % Yenny Bill Work Phone: [facility] 04-03-2024 10:22-0500 Systolic blood pressure 145 mm[Hg] Yenny Bill Work Phone: [facility] 03-27-2024 13:06-0500 Body mass index (BMI) [Ratio] 40.75 kg/m2 Arsh Otto Jr., MD Work Phone: [facility] 03-27-2024 13:06-0500 Body weight 128.82 kg Arsh Otto Jr., MD Work Phone: [facility] 03-27-2024 13:06-0500 Diastolic blood pressure 72 mm[Hg] Arsh Otto Jr., MD Work Phone: [facility] 03-27-2024 13:06-0500 Heart rate 72 /min Arsh Otto Jr., MD Work Phone: [facility] 03-27-2024 13:06-0500 SaO2% (BldA) [Mass fraction] 98 % Arsh Otto Jr., MD Work Phone: [facility] 03-27-2024 13:06-0500 Systolic blood pressure 108 mm[Hg] Arsh Otto Jr., MD Work Phone: [facility] 03-27-2024 09:47-0500 Body height 177.8 cm Arsh Polk MD Work Phone: [facility] 03-27-2024 09:47-0500 Body mass index (BMI) [Ratio] 40.75 kg/m2 Arsh Polk MD Work Phone: [facility] 03-27-2024 09:47-0500 Body weight 128.82 kg Arsh Polk MD Work Phone: [facility] 03-27-2024 09:47-0500 Diastolic blood pressure 62 mm[Hg] Arsh Polk MD Work Phone: [facility] 03-27-2024 09:47-0500 Heart rate 72 /min Arsh Polk MD Work Phone: [facility] 03-27-2024 09:47-0500 SaO2% (BldA) [Mass fraction] 95 % Arsh Polk MD Work Phone: [facility] 03-27-2024 09:47-0500 Systolic blood pressure 94 mm[Hg] Arsh Polk MD Work Phone: [facility] 03-06-2024 11:10-0400 Body mass index (BMI) [Ratio] 43.6 kg/m2 Yennymarquez Bill Work Phone: [facility] 03-06-2024 11:10-0400 Body temperature 96.69 [degF] Yenny Bill Work Phone: [facility] 03-06-2024 11:10-0400 Body weight 139.71 kg Yenny Bill Work Phone: [facility] 03-06-2024 11:10-0400 Diastolic blood pressure 91 mm[Hg] Yenny Bill Work Phone: [facility] 03-06-2024 11:10-0400 Heart rate 65 /min Yenny Bill Work Phone: [facility] 03-06-2024 11:10-0400 SaO2% (BldA) [Mass fraction] 99 % Yenny Bill Work Phone: [facility] 03-06-2024 11:10-0400 Systolic blood pressure 146 mm[Hg] Yenny Bill Work Phone: [facility] 02-07-2024 11:19-0400 Body mass index (BMI) [Ratio] 41.76 kg/m2 Injection Wstr Work Phone: [facility] 02-07-2024 11:19-040 Body temperature 96.91 [degF] Injection Wstr Work Phone: [facility] 02-07-2024 11:19040 Body weight 133.81 kg Injection Wstr Work Phone: [facility] 02-07-2024 11:19-040 Diastolic blood pressure 64 mm[Hg] Injection Wstr Work Phone: [facility] 02-07-2024 11:19-0400 Heart rate 61 /min Injection Wstr Work Phone: [facility] 02-07-2024 11:19-0400 SaO2% (BldA) [Mass fraction] 96 % Injection Wstr Work Phone: [facility] 02-07-2024 11:19-0400 Systolic blood pressure 158 mm[Hg] Injection Wstr Work Phone: [facility] 02-02-2024 15:42-0400 Body mass index (BMI) [Ratio] 42.32 kg/m2 Arsh Polk MD Work Phone: [facility] 02-02-2024 15:42-0400 Body weight 135.6 kg Arsh Polk MD Work Phone: [facility] 02-02-2024 15:42-0400 Diastolic blood pressure 58 mm[Hg] Arsh Polk MD Work Phone: [facility] 02-02-2024 15:42-0400 Heart rate 55 /min Arsh Polk MD Work Phone: [facility] 02-02-2024 15:42-0400 SaO2% (BldA) [Mass fraction] 95 % Arsh Polk MD Work Phone: [facility] 02-02-2024 15:42-0400 Systolic blood pressure 110 mm[Hg] Arsh Polk MD Work Phone: [facility] 01-26-2024 12:18-0400 Body mass index (BMI) [Ratio] 42.45 kg/m2 Gabriel Butler APRN.IGNITER CAPPER Work Phone: [facility] 01-26-2024 12:18-0400 Body temperature 97.81 [degF] Gabriel Butler APRN.IGNITER CAPPER Work Phone: [facility] 01-26-2024 12:18-0400 Body weight 136 kg Gabriel Butler APRN.IGNITER CAPPER Work Phone: [facility] 01-26-2024 12:18-0400 Diastolic blood pressure 82 mm[Hg] Gabriel Butler APRN.IGNITER CAPPER Work Phone: [facility] 01-26-2024 12:18-0400 Heart rate 61 /min Gabriel Butler DIETARY TECH.IGNITER CAPPER Work Phone: [facility] 01-26-2024 12:18-0400 Respiratory rate 16 /min Gabriel Butler DIETARY TECH.IGNITER CAPPER Work Phone: [facility] 01-26-2024 12:18-0400 SaO2% (BldA) [Mass fraction] 98 % Gabriel Butler DIETARY TECH.IGNITER CAPPER Work Phone: [facility] 01-26-2024 12:18-0400 Systolic blood pressure 132 mm[Hg] Gabriel Butler DIETARY TECH.IGNITER CAPPER Work Phone: [facility] 01-19-2024 08:57-0400 Body mass index (BMI) [Ratio] 42.05 kg/m2 Yenny Bill Work Phone: [facility] 01-19-2024 08:57-0400 Body temperature 97.11 [degF] Yenny Bill Work Phone: [facility] 01-19-2024 08:57-0400 Body weight 134.72 kg Yenny Bill Work Phone: [facility] 01-19-2024 08:57-0400 Diastolic blood pressure 76 mm[Hg] Yenny Bill Work Phone: [facility] 01-19-2024 08:57-0400 Heart rate 59 /min Yenny Bill Work Phone: [facility] 01-19-2024 08:57-0400 SaO2% (BldA) [Mass fraction] 97 % Yenny Bill Work Phone: [facility] 01-19-2024 08:57-0400 Systolic blood pressure 145 mm[Hg] Yenny Bill Work Phone: [facility] 12-29-2023 15:17-0400 Body mass index (BMI) [Ratio] 43.89 kg/m2 Kaylee Herrmann PA-C Work Phone: [facility] 12-29-2023 15:17-0400 Body weight 140.62 kg Kaylee Herrmann PA-C Work Phone: [facility] 12-29-2023 15:17-0400 Diastolic blood pressure 88 mm[Hg] Kaylee Foxer PA-C Work Phone: [facility] 12-29-2023 15:17-0400 Heart rate 53 /min Kaylee Foxer PA-C Work Phone: [facility] 12-29-2023 15:17-0400 Respiratory rate 16 /min Kaylee Foxer PA-C Work Phone: [facility] 12-29-2023 15:17-0400 SaO2% (BldA) [Mass fraction] 97 % Kaylee Herrmann PA-C Work Phone: [facility] 12-29-2023 15:17-0400 Systolic blood pressure 163 mm[Hg] Kaylee Foxer PA-C Work Phone: [facility] 12-22-2023 09:52-0400 Body temperature 97.7 [degF] Treatment Wstr Work Phone: [facility] 12-22-2023 09:52-0400 Diastolic blood pressure 79 mm[Hg] Treatment Wstr Work Phone: [facility] 12-22-2023 09:52-0400 Heart rate 54 /min Treatment Wstr Work Phone: [facility] 12-22-2023 09:52-0400 SaO2% (BldA) [Mass fraction] 95 % Treatment Wstr Work Phone: [facility] 12-22-2023 09:52-0400 Systolic blood pressure 145 mm[Hg] Treatment Wstr Work Phone: [facility] 12-20-2023 08:45-0400 Body temperature 97.2 [degF] Treatment Wstr Work Phone: [facility] 12-20-2023 08:45-0400 Diastolic blood pressure 74 mm[Hg] Treatment Wstr Work Phone: [facility] 12-20-2023 08:45-0400 Heart rate 56 /min Treatment Wstr Work Phone: [facility] 12-20-2023 08:45-0400 Respiratory rate 16 /min Treatment Wstr Work Phone: [facility] 12-20-2023 08:45-0400 SaO2% (BldA) [Mass fraction] 97 % Treatment Wstr Work Phone: [facility] 12-20-2023 08:45-0400 Systolic blood pressure 160 mm[Hg] Treatment Wstr Work Phone: [facility] 12-17-2023 10:47-0400 Body temperature 97 [degF] Treatment Wstr Work Phone: [facility] 12-17-2023 10:47-0400 Diastolic blood pressure 72 mm[Hg] Treatment Wstr Work Phone: [facility] 12-17-2023 10:47-0400 Heart rate 55 /min Treatment Wstr Work Phone: [facility] 12-17-2023 10:47-0400 SaO2% (BldA) [Mass fraction] 95 % Treatment Wstr Work Phone: [facility] 12-17-2023 10:47-0400 Systolic blood pressure 121 mm[Hg] Treatment Wstr Work Phone: [facility] 12-15-2023 09:36-0400 Body temperature 96.8 [degF] Treatment Wstr Work Phone: [facility] 12-15-2023 09:36-0400 Diastolic blood pressure 85 mm[Hg] Treatment Wstr Work Phone: [facility] 12-15-2023 09:36-0400 Heart rate 55 /min Treatment Wstr Work Phone: [facility] 12-15-2023 09:36-0400 Respiratory rate 18 /min Treatment Wstr Work Phone: [facility] 12-15-2023 09:36-0400 Systolic blood pressure 155 mm[Hg] Treatment Wstr Work Phone: [facility] 12-13-2023 10:50-0400 Body temperature 98.2 [degF] Treatment Wstr Work Phone: [facility] 12-13-2023 10:50-0400 Diastolic blood pressure 82 mm[Hg] Treatment Wstr Work Phone: [facility] 12-13-2023 10:50-0400 Heart rate 58 /min Treatment Wstr Work Phone: [facility] 12-13-2023 10:50-0400 SaO2% (BldA) [Mass fraction] 94 % Treatment Wstr Work Phone: [facility] 12-13-2023 10:50-0400 Systolic blood pressure 149 mm[Hg] Treatment Wstr Work Phone: [facility] 11-29-2023 10:31-0400 Body height 179 cm Yennymarquez Bill Work Phone: [facility] 11-29-2023 10:31-0400 Body mass index (BMI) [Ratio] 43.89 kg/m2 Yenny Bill Work Phone: [facility] 11-29-2023 10:31-0400 Body temperature 97.39 [degF] Yenny Bill Work Phone: [facility] 11-29-2023 10:31-0400 Body weight 140.62 kg Yenny Bill Work Phone: [facility] 11-29-2023 10:31-0400 Diastolic blood pressure 67 mm[Hg] Yenny Bill Work Phone: [facility] 11-29-2023 10:31-0400 Heart rate 59 /min Yenny Bill Work Phone: [facility] 11-29-2023 10:31-0400 SaO2% (BldA) [Mass fraction] 97 % Yenny Bill Work Phone: [facility] 11-29-2023 10:31-0400 Systolic blood pressure 141 mm[Hg] Yenny Bill Work Phone: [facility] 11-08-2023 10:24-0400 Body mass index (BMI) [Ratio] 42.47 kg/m2 Marlen Kaitlin DIETARY TECH.IGNITER CAPPER Work Phone: [facility] 11-08-2023 10:24-0400 Body weight 134.26 kg Marlen Kaitlin DIETARY TECH.IGNITER CAPPER Work Phone: [facility] 11-08-2023 10:24-0400 Diastolic blood pressure 75 mm[Hg] Marlen Kaitlin DIETARY TECH.IGNITER CAPPER Work Phone: [facility] 11-08-2023 10:24-0400 Heart rate 61 /min Marlen Kaitlin DIETARY TECH.IGNITER CAPPER Work Phone: [facility] 11-08-2023 10:24-0400 Respiratory rate 18 /min Marlen Kaitlin DIETARY TECH.IGNITER CAPPER Work Phone: [facility] 11-08-2023 10:24-0400 SaO2% (BldA) [Mass fraction] 97 % Marlen Kaitlin DIETARY TECH.IGNITER CAPPER Work Phone: [facility] 11-08-2023 10:24-0400 Systolic blood pressure 158 mm[Hg] Marlen Kaitlin DIETARY TECH.IGNITER CAPPER Work Phone: [facility] 09-17-2023 10:58-0400 Body height 177.8 cm Arsh Polk MD Work Phone: [facility] 09-17-2023 10:58-0400 Body mass index (BMI) [Ratio] 42.47 kg/m2 Arsh Polk MD Work Phone: [facility] 09-17-2023 10:58-0400 Body weight 134.26 kg Arsh Polk MD Work Phone: [facility] 09-17-2023 10:58-0400 Diastolic blood pressure 78 mm[Hg] Arsh Polk MD Work Phone: [facility] 09-17-2023 10:58-0400 Heart rate 54 /min Arsh Polk MD Work Phone: [facility] 09-17-2023 10:58-0400 SaO2% (BldA) [Mass fraction] 97 % Arsh Polk MD Work Phone: [facility] 09-17-2023 10:58-0400 Systolic blood pressure 126 mm[Hg] Arsh Polk MD Work Phone: [facility] 09-06-2023 15:17-0400 Diastolic blood pressure 64 mm[Hg] Arsh Otto Jr., MD Work Phone: [facility] 09-06-2023 15:17-0400 Heart rate 58 /min Arsh Otto Jr., MD Work Phone: [facility] 09-06-2023 15:17-0400 Respiratory rate 16 /min Arsh Otto Jr., MD Work Phone: [facility] 09-06-2023 15:17-0400 SaO2% (BldA) [Mass fraction] 94 % Arsh Otto Jr., MD Work Phone: [facility] 09-06-2023 15:17-0400 Systolic blood pressure 128 mm[Hg] Arsh Otto Jr., MD Work Phone: [facility] 06-18-2023 10:32-0500 Body height 177.8 cm Arsh Polk MD Work Phone: [facility] 06-18-2023 10:32-0500 Body weight 135.63 kg Arsh Polk MD Work Phone: [facility] 06-18-2023 10:32-0500 Diastolic blood pressure 61 mm[Hg] Arsh Polk MD Work Phone: [facility] 06-18-2023 10:32-0500 Heart rate 51 /min Arsh Polk MD Work Phone: [facility] 06-18-2023 10:32-0500 SaO2% (BldA) [Mass fraction] 95 % Arsh Polk MD Work Phone: [facility] 06-18-2023 10:32-0500 Systolic blood pressure 136 mm[Hg] Arsh Polk MD Work Phone: [facility] 01-26-2023 13:29-0400 Body weight 127.01 kg Kaylee Foxer PA-C Work Phone: [facility] 01-26-2023 13:29-0400 Diastolic blood pressure 74 mm[Hg] Kaylee Queener PA-C Work Phone: [facility] 01-26-2023 13:29-0400 Heart rate 56 /min Kaylee Foxer PA-C Work Phone: [facility] 01-26-2023 13:29-0400 Respiratory rate 16 /min Kaylee Foxer PA-C Work Phone: [facility] 01-26-2023 13:29-0400 SaO2% (BldA) [Mass fraction] 95 % Kaylee Foxer PA-C Work Phone: [facility] 01-26-2023 13:29-0400 Systolic blood pressure 122 mm[Hg] Kaylee Queener PA-C Work Phone: [facility] 11-26-2022 10:36-0400 Body weight 136.08 kg Arsh Polk MD Work Phone: [facility] 11-26-2022 10:36-0400 Diastolic blood pressure 68 mm[Hg] Arsh Polk MD Work Phone: [facility] 11-26-2022 10:36-0400 Heart rate 87 /min Arsh Polk MD Work Phone: [facility] 11-26-2022 10:36-0400 SaO2% (BldA) [Mass fraction] 96 % Arsh Polk MD Work Phone: [facility] 11-26-2022 10:36-0400 Systolic blood pressure 128 mm[Hg] Arsh Polk MD Work Phone: [facility] 11-23-2022 14:11-0400 Body temperature 97.9 [degF] Arsh Otto Jr., MD Work Phone: [facility] 11-23-2022 14:11-0400 Body weight 132.45 kg Arsh Otto Jr., MD Work Phone: [facility] 11-23-2022 14:11-0400 Diastolic blood pressure 64 mm[Hg] Arsh Otto Jr., MD Work Phone: [facility] 11-23-2022 14:11-0400 Heart rate 60 /min Arsh Otto Jr., MD Work Phone: [facility] 11-23-2022 14:11-0400 Respiratory rate 16 /min Arsh Otto Jr., MD Work Phone: [facility] 11-23-2022 14:11-0400 SaO2% (BldA) [Mass fraction] 95 % Arsh Otto Jr., MD Work Phone: [facility] 11-23-2022 14:11-0400 Systolic blood pressure 126 mm[Hg] Arsh Otto Jr., MD Work Phone: [facility] 07-09-2022 13:13-0500 Body temperature 97.9 [degF] Krislyn Aberegg PA Work Phone: [facility] 07-09-2022 13:13-0500 Diastolic blood pressure 72 mm[Hg] Krislyn Aberegg PA Work Phone: [facility] 07-09-2022 13:13-0500 Heart rate 60 /min Krislyn Aberegg PA Work Phone: [facility] 07-09-2022 13:13-0500 Respiratory rate 16 /min Krislyn Aberegg PA Work Phone: [facility] 07-09-2022 13:13-0500 SaO2% (BldA) [Mass fraction] 95 % Krislyn Aberegg PA Work Phone: [facility] 07-09-2022 13:13-0500 Systolic blood pressure 126 mm[Hg] Krislyn Aberegg PA Work Phone: [facility] 05-29-2022 10:03-0500 Body weight 135.17 kg Arsh Polk MD Work Phone: [facility] 05-29-2022 10:03-0500 Diastolic blood pressure 72 mm[Hg] Arsh Polk MD Work Phone: [facility] 05-29-2022 10:03-0500 Heart rate 84 /min Arsh Polk MD Work Phone: [facility] 05-29-2022 10:03-0500 Systolic blood pressure 122 mm[Hg] Arsh Polk MD Work Phone: [facility] 02-20-2022 10:28-0400 Body height 182.[address] Arsh Polk Work Phone: [facility] Work Phone: 02-20-2022 10:28-0400 Body mass index (BMI) [Ratio] 40.1 kg/m2 Dr. Arsh Polk Work Phone: [facility] Work Phone: 02-20-2022 10:28-0400 Body weight 134.[address] Arsh Polk Work Phone: [facility] Work Phone: 02-20-2022 10:28-0400 Diastolic blood pressure 55 mm[Hg] Dr. Arsh Polk Work Phone: [facility] Work Phone: 02-20-2022 10:28-0400 Heart rate 58 /min Dr. Arsh Polk Work Phone: [facility] Work Phone: 02-20-2022 10:28-0400 Respiratory rate 16 /min Dr. Arsh Polk Work Phone: [facility] Work Phone: 02-20-2022 10:28-0400 Systolic blood pressure 142 mm[Hg] Dr. Arsh Polk Work Phone: [facility] Work Phone: 01-21-2022 11:23-0400 Diastolic blood pressure 60 mm[Hg] Arsh Polk MD Work Phone: [facility] 01-21-2022 11:23-0400 Systolic blood pressure 108 mm[Hg] Arsh Polk MD Work Phone: [facility] 01-21-2022 11:00-0400 Body height 177.8 cm Arsh Polk MD Work Phone: [facility] 01-21-2022 11:00-0400 Body weight 135.63 kg Arsh Polk MD Work Phone: [facility] 01-21-2022 11:00-0400 Heart rate 55 /min Arsh Polk MD Work Phone: [facility] 01-21-2022 11:00-0400 SaO2% (BldA) [Mass fraction] 99 % Arsh Polk MD Work Phone: [facility] 12-16-2021 09:31-0400 Body mass index (BMI) [Ratio] 40.2 kg/m2 Dr. Arsh Polk Work Phone: [facility] Work Phone: 12-16-2021 09:31-0400 Body weight 134.[address] Arsh Polk Work Phone: [facility] Work Phone: 12-16-2021 09:31-0400 Diastolic blood pressure 70 mm[Hg] Dr. Arsh Polk Work Phone: [facility] Work Phone: 12-16-2021 09:31-0400 Heart rate 61 /min Dr. Arsh Polk Work Phone: [facility] Work Phone: 12-16-2021 09:31-0400 SaO2% (BldA) [Mass fraction] 64 % Dr. Arsh Polk Work Phone: [facility] Work Phone: 12-16-2021 09:31-0400 Systolic blood pressure 118 mm[Hg] Dr. Arsh Polk Work Phone: [facility] Work Phone: 12-10-2021 11:02-0400 Body weight 135.63 kg Arsh Polk MD Work Phone: [facility] 12-10-2021 11:02-0400 Diastolic blood pressure 80 mm[Hg] Arsh Polk MD Work Phone: [facility] 12-10-2021 11:02-0400 Heart rate 76 /min Arsh Polk MD Work Phone: [facility] 12-10-2021 11:02-0400 Respiratory rate 16 /min Arsh Polk MD Work Phone: [facility] 12-10-2021 11:02-0400 SaO2% (BldA) [Mass fraction] 98 % Arsh Polk MD Work Phone: [facility] 12-10-2021 11:02-0400 Systolic blood pressure 138 mm[Hg] Arsh Polk MD Work Phone: [facility] 11-12-2021 12:30-0400 Body temperature 96.8 [degF] Dr. Arsh Polk Work Phone: [facility] Work Phone: 11-12-2021 12:30-0400 Diastolic blood pressure 78 mm[Hg] Dr. Arsh Polk Work Phone: [facility] Work Phone: 11-12-2021 12:30-0400 Heart rate 67 /min Dr. Arsh Polk Work Phone: [facility] Work Phone: 11-12-2021 12:30-0400 Respiratory rate 16 /min Dr. Arsh Polk Work Phone: [facility] Work Phone: 11-12-2021 12:30-0400 SaO2% (BldA) [Mass fraction] 94 % Dr. Arsh Polk Work Phone: [facility] Work Phone: 11-12-2021 12:30-0400 Systolic blood pressure 122 mm[Hg] Dr. Arsh Polk Work Phone: [facility] Work Phone: 11-12-2021 10:26-0400 Body height 182.[address] Arsh Polk Work Phone: [facility] Work Phone: 11-12-2021 10:26-0400 Body mass index (BMI) [Ratio] 40 kg/m2 Dr. Arsh Polk Work Phone: [facility] Work Phone: 11-12-2021 10:26-0400 Body weight [address] Arsh Polk Work Phone: [facility] Work Phone: 11-07-2021 10:10-0400 Body weight 136.99 kg Arsh Polk MD Work Phone: [facility] 11-07-2021 10:10-0400 Diastolic blood pressure 62 mm[Hg] Arsh Polk MD Work Phone: [facility] 11-07-2021 10:10-0400 Heart rate 70 /min Arsh Polk MD Work Phone: [facility] 11-07-2021 10:10-0400 SaO2% (BldA) [Mass fraction] 96 % Arsh Polk MD Work Phone: [facility] 11-07-2021 10:10-0400 Systolic blood pressure 120 mm[Hg] Arsh Polk MD Work Phone: [facility] 10-28-2021 11:01-0400 Body height 177.8 cm Darnell Mackey PA-C Work Phone: [facility] 10-28-2021 11:01-0400 Body temperature 97.2 [degF] Darnell Mackey PA-C Work Phone: [facility] 10-28-2021 11:01-0400 Body weight 136.99 kg Darnell Mackey PA-C Work Phone: [facility] 10-28-2021 11:01-0400 Diastolic blood pressure 82 mm[Hg] Darnell Mackey PA-C Work Phone: [facility] 10-28-2021 11:01-0400 Heart rate 66 /min Darnell Mackey PA-C Work Phone: [facility] 10-28-2021 11:01-0400 Respiratory rate 14 /min Darnell Mackey PA-C Work Phone: [facility] 10-28-2021 11:01-0400 SaO2% (BldA) [Mass fraction] 98 % Darnell Mackey PA-C Work Phone: [facility] 10-28-2021 11:01-0400 Systolic blood pressure 118 mm[Hg] Darnell Mackey PA-C Work Phone: [facility] 10-16-2021 10:32-0400 Body mass index (BMI) [Ratio] 41.6 kg/m2 Dr. Arsh Polk Work Phone: [facility] Work Phone: 10-16-2021 10:32-0400 Body weight 139.[address] Arsh Polk Work Phone: [facility] Work Phone: 10-16-2021 10:32-0400 Diastolic blood pressure 65 mm[Hg] Dr. Arsh Polk Work Phone: [facility] Work Phone: 10-16-2021 10:32-0400 Heart rate 56 /min Dr. Arsh Polk Work Phone: [facility] Work Phone: 10-16-2021 10:32-0400 Respiratory rate 20 /min Dr. Arsh Polk Work Phone: [facility] Work Phone: 10-16-2021 10:32-0400 SaO2% (BldA) [Mass fraction] 98 % Dr. Arsh Polk Work Phone: [facility] Work Phone: 10-16-2021 10:32-0400 Systolic blood pressure 149 mm[Hg] Dr. Arsh Polk Work Phone: [facility] Work Phone: 10-16-2021 10:32-0400 Body height 182.[address] Arsh Polk Work Phone: [facility] Work Phone: 10-16-2021 10:32-0400 Body mass index (BMI) [Ratio] 41.6 kg/m2 Dr. Arsh Polk Work Phone: [facility] Work Phone: 10-16-2021 10:32-0400 Body weight 139.[address] Arsh Polk Work Phone: [facility] Work Phone: 10-16-2021 10:32-0400 Diastolic blood pressure 65 mm[Hg] Dr. Arsh Polk Work Phone: [facility] Work Phone: 10-16-2021 10:32-0400 Heart rate 56 /min Dr. Arsh Polk Work Phone: [facility] Work Phone: 10-16-2021 10:32-0400 Respiratory rate 20 /min Dr. Arsh Polk Work Phone: [facility] Work Phone: 10-16-2021 10:32-0400 SaO2% (BldA) [Mass fraction] 98 % Dr. Arsh Polk Work Phone: [facility] Work Phone: 10-16-2021 10:32-0400 Systolic blood pressure 149 mm[Hg] Dr. Arsh Polk Work Phone: [facility] Work Phone: 10-17-2020 14:00-0400 Heart rate 82 /min Curry Shore MD Work Phone: [employer] Work Phone: 10-17-2020 12:30-0400 Body temperature 97.7 [degF] Curry Shore MD Work Phone: [employer] [facility] [employer] Work Phone: 10-17-2020 12:30-0400 Diastolic blood pressure 73 mm[Hg] Curry Shore MD Work Phone: [employer] Work Phone: 10-17-2020 12:30-0400 Respiratory rate 20 /min Curry Shore MD Work Phone: [employer] Work Phone: 10-17-2020 12:30-0400 SaO2% (BldA) [Mass fraction] 97 % Curry Shore MD Work Phone: [employer] Work Phone: 10-17-2020 12:30-0400 Systolic blood pressure 124 mm[Hg] Curry Shore MD Work Phone: [employer] Work Phone: 10-17-2020 05:37-0400 Body mass index (BMI) [Ratio] 39.78 kg/m2 Curry Shore MD Work Phone: [employer] Work Phone: 10-17-2020 05:37-0400 Body weight 127.55 kg Curry Shore MD Work Phone: [employer] Work Phone: Comment on above: standing scale 10-16-2020 09:30-0400 Body height 179.1 cm Curry Shore MD Work Phone: [employer] Work Phone: 03-24-2017 10:18-0500 BMI (Body Mass Index) 41.23 kg/m2 [facility] Work Phone: 03-24-2017 10:18-0500 BP Diastolic 70 mm[Hg] [facility] Work Phone: 03-24-2017 10:18-0500 BP Systolic 142 mm[Hg] [facility] Work Phone: 03-24-2017 10:18-0500 Height 182.88 cm [facility] Work Phone: 03-24-2017 10:18-0500 Pulse (Heart Rate) 60 /min [facility] Work Phone: 03-24-2017 10:18-0500 Respiratory Rate 18 /min [facility] [email or web address] Work Phone: 03-24-2017 10:18-0500 Weight 137.89 kg [facility] [email or web address] Work Phone: 01-09-2014 13:32-0400 BP Diastolic 71 mm[Hg] Macey Greco RN [facility] Work Phone: 01-09-2014 13:32-0400 BP Systolic 111 mm[Hg] Macey Greco RN [facility] Work Phone: 01-09-2014 13:32-0400 Height 182.88 cm Macey Greco RN [facility] Work Phone: Encounters Encounter Date Encounter Type Care Provider Facility Start: 03-07-2025 End: 03-07-2025 ambulatory Nakia Laboy Facility:[facility] Start: 02-26-2025 End: 02-26-2025 ambulatory [facility] Facility:[facility] Start: 01-30-2025 End: 01-30-2025 ambulatory [facility] Facility:[facility] Start: 01-24-2025 End: 01-24-2025 ambulatory [facility] Facility:[facility] Start: 01-15-2025 End: 01-15-2025 ambulatory Romina Flynn DIETARY TECH.IGNITER CAPPER Work Phone: [facility] Comment on above: Medical eqipment Start: 01-12-2025 End: 01-12-2025 Refill Arsh Otto MD Work Phone: Neurology Comment on above: Refill Request Start: 01-03-2025 End: 01-03-2025 ambulatory ARSH POLK Facility:[facility] Start: 01-03-2025 End: 01-03-2025 Patient encounter procedure Arsh Polk MD Work Phone: [facility] Comment on above: Medicare annual well ness visit, subsequent (Primary Dx); 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 1 through stage 4 chronic kidney disease, or unspecified chronic kidney disease (HCC); Mild dementia without behavioral disturbance, psychotic disturbance, mood disturbance, or anxiety, unspecified dementia type (HCC); 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); Obesity, Class II, BMI 35-39.9; Tremor, essential; Subdural hematoma, chronic (HCC); Parkinson's disease, unspecified whether dyskinesia present, unspecified whether manifestations fluctuate (HCC); Diabetic polyneuropathy associated with type 2 diabetes mellitus (HCC); Coronary artery disease involving [place] coronary artery of [place] heart without angina pectoris; Essential hypertension, benign; Aortic valve stenosis, etiology of cardiac valve disease unspecified; Mixed hyperlipidemia; IRINEO (obstructive sleep apnea); Anemia due to folic acid deficiency, unspecified deficiency type; Anemia due to vitamin B12 deficiency, unspecified B12 deficiency type; Iron malabsorption (HCC); 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); Stage 3 chronic kidney disease, 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); Type 2 diabetes mellitus with stage 3 chronic kidney disease, without long-term current use of insulin, 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); Anxiety with depression; History of TIA (transient ischemic attack); Vision loss; Non healing left heel wound Start: 12-27-2024 End: 12-28-2024 Telephone encounter Arsh Polk MD Work Phone: [facility] Comment on above: Patient Update; Home Health Point of Care Results Start: 12-26-2024 End: 12-26-2024 Patient encounter procedure Yenny Bill Work Phone: Hematology/Oncology Start: 12-26-2024 End: 12-26-2024 ambulatory [facility] Work Phone: Hematology/Oncology Comment on above: 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) (Primary Dx) Start: 12-19-2024 End: 12-20-2024 Telephone encounter Arsh Polk MD Work Phone: Family [facility] [place] Comment on above: POC Start: 12-12-2024 End: 12-12-2024 ambulatory ARSH POLK Facility:[facility] Start: 12-11-2024 End: 12-11-2024 Refill Romina Mingo Flynn DIETARY TECH.IGNITER CAPPER Work Phone: [facility] Comment on above: Refill Request Start: 11-29-2024 End: 11-30-2024 Telephone encounter Romina Flynn DIETARY TECH.IGNITER CAPPER Work Phone: [facility] Comment on above: Orders Patient Question Start: 11-29-2024 End: 11-29-2024 ambulatory [facility] Work Phone: Hematology/Oncology Comment on above: 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) (Primary Dx) Start: 11-28-2024 End: 11-28-2024 Telephone encounter Sol Jenkins [facility] Comment on above: Home Care (Declined) Orders (Home Health) Start: 11-28-2024 End: 11-28-2024 Office outpatient visit 25 minutes Romina A Rosarioan DIETARY TECH.IGNITER CAPPER Work Phone: [facility] [place] Comment on above: Diabetic polyneuropa thy associated with type 2 diabetes mellitus (HCC) (Primary Dx); Mixed hyperlipidemia; Pressure injury of buttock, stage 2, unspecified laterality (HCC); Parkinson's disease without dyskinesia or fluctuating manifestations (HCC); Tinea corporis Start: 11-28-2024 End: 11-28-2024 ambulatory ROMINA A SUPPAN Facility:[facility] Start: 11-27-2024 End: 11-27-2024 ambulatory Nurse [facility] Work Phone: Nurse Phone Triage Comment on above: wound on buttocks Start: 11-23-2024 End: 11-23-2024 Patient encounter procedure Yeyo Bailey IGNITER CAPPER Work Phone: [facility] Comment on above: Subdural hematoma, c hronic (HCC) (Primary Dx) Start: 11-23-2024 End: 11-23-2024 ambulatory ARSH POLK Facility:[facility] Start: 11-14-2024 End: 11-14-2024 Patient encounter procedure Reagan Webster SUPERVISING DEPUTY-C -[facility] Work Phone: Start: 11-14-2024 End: 11-14-[address] [facility] Start: 11-09-2024 ambulatory PATTI MOREIRA Facility :[facility] Start: 11-09-2024 End: 11-09-2024 Subsequent hospital visit by physician [facility] (I-Stat) Work Phone: Cat Scan Comment on above: Subdural hematoma (H CC) [S06.5XAA] Start: 11-01-2024 End: 11-01-2024 ambulatory [facility] Work Phone: Hematology/Oncology Comment on above: 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) (Primary Dx) Start: 11-01-2024 End: 11-01-2024 ambulatory YENNY BILL Facility:[facility] Start: 10-25-2024 End: 10-25-2024 Emergency department patient visit DIEUDONNE LOPEZ Facility:[facility] Start: 10-25-2024 End: 10-25-2024 Telephone encounter Arsh Otto MD Work Phone: [facility] Provider Adult Start: 10-25-2024 ambulatory ARSH OTTO JR Faci lity:[facility] Start: 10-25-2024 End: 10-25-2024 Subsequent hospital visit by physician [facility] (I-Stat/1.5t) Work Phone: Radiology Comment on above: Parkinson's disease, unspecified whether dyskinesia present, unspecified whether manifestations fluctuate (HCC) [G20.A1] Start: 10-20-2024 End: 10-20-2024 Patient encounter procedure Arsh Otto MD Work Phone: Neurology Comment on above: Parkinson's disease, unspecified whether dyskinesia present, unspecified whether manifestations fluctuate (HCC) (Primary Dx); Abnormality of gait; Altered mental status, unspecified altered mental status type; IRINEO on CPAP; Treatment-emergent central sleep apnea Start: 10-20-2024 End: 10-20-2024 ambulatory ARSH OTTO JR Facility:[facility] Start: 10-04-2024 End: 10-04-2024 Telephone encounter Yenny Fly Work Phone: Hematology/Oncology Start: 10-04-2024 End: 10-04-2024 ambulatory [facility] Work Phone: Hematology/Oncology Comment on above: 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) (Primary Dx) Start: 10-04-2024 End: 10-04-2024 Patient encounter procedure Yenny Bill Work Phone: Hematology/Oncology Start: 10-04-2024 End: 10-04-2024 ambulatory YENNY BILL Facility:[facility] Start: 09-25-2024 End: 09-25-2024 Patient encounter procedure Arsh Polk MD Work Phone: [facility] Comment on above: Tremor, essential (P rimary Dx); Parkinson's disease, unspecified whether dyskinesia present, unspecified whether manifestations fluctuate (HCC); Essential hypertension, benign; Mixed hyperlipidemia; Aortic valve stenosis, etiology of cardiac valve disease unspecified; Hypertensive kidney disease with stage 3 chronic kidney disease, 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); Coronary artery disease involving [place] coronary artery of [place] heart without angina pectoris; LV dysfunction; IRINEO (obstructive sleep apnea); Anemia due to vitamin B12 deficiency, unspecified B12 deficiency type; Anemia due to folic acid deficiency, unspecified deficiency type; Iron malabsorption (HCC); Stage 3 chronic kidney disease, 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); Type 2 diabetes mellitus with stage 3 chronic kidney disease, without long-term current use of insulin, 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); Microalbuminuria; Lymphoma in remission; Anxiety with depression; TIA (transient ischemic attack); Class 2 obesity with body mass index (BMI) of 39.0 to 39.9 in adult, unspecified obesity type, unspecified whether serious comorbidity present; Diarrhea, unspecified type Start: 09-25-2024 End: 09-25-2024 ambulatory [facility] Facility:[facility] Start: 09-18-2024 End: 09-18-2024 ambulatory [facility] Facility:[facility] Start: 09-04-2024 End: 09-04-2024 ambulatory [facility] Facility:[facility] Start: 09-03-2024 End: 09-03-2024 Emergency department patient visit Dr. Didier Mcintyre -Emergency Department Work Phone: Start: 08-31-2024 ambulatory John Herndon Facility:[facility] Start: 08-31-2024 Non-patient / Non-visit Dr. Suzy VILLANUEVA -[facility] Work Phone: Start: 08-31-2024 End: 08-31-2024 Patient encounter procedure Alva CONNOR -Pulmonary Services/Neurology Work Phone: Start: 08-31-2024 End: 08-31-2024 ambulatory Alva CONNOR Facility:[facility] Start: 08-25-2024 End: 08-25-[address] 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) Start: 08-06-2024 End: 08-07-2024 Refill Romina Flynn APRN.CNP Work Phone: [facility] Comment on above: Refill Request Start: 07-24-2024 End: 07-24-2024 Telephone encounter Yenny Bill Work Phone: Hematology/Oncology Start: 07-13-2024 End: 07-13-2024 ambulatory Liliam Holt RN Work Phone: [facility] Comment on above: Initial enrollment o [facility] Start: 07-13-2024 End: 07-13-2024 Coordination of care plan Arsh Polk MD Work Phone: [facility] Comment on above: Re: Care Coordinatio n Outreach Start: 07-13-2024 End: 07-13-2024 E-mail encounter from caregiver Arsh Polk MD Work Phone: [facility] Start: 07-10-2024 End: 07-10-2024 Patient encounter procedure Yenny Bill Work Phone: Hematology/Oncology Start: 07-10-2024 End: 07-10-2024 ambulatory [facility] Work Phone: Hematology/Oncology Comment on above: 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) (HCC) (Primary Dx) 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) (HCC) (Primary Dx); Iron malabsorption Start: 06-30-2024 End: 06-30-2024 Refill Arsh Otto MD Work Phone: Neurology Comment on above: Refill Request Start: 06-26-2024 End: 06-26-2024 Telephone encounter Yenny Bill Work Phone: Hematology/Oncology Start: 06-20-2024 End: 06-20-2024 Telephone encounter Arsh Polk MD Work Phone: [facility] Comment on above: [facility], verbal order s needed Start: 06-09-2024 End: 06-09-2024 ambulatory [facility] Facility:[facility] Start: 06-07-2024 End: 06-08-2024 Telephone encounter Arsh Polk MD Work Phone: [facility] Comment on above: [facility] Order request Start: 06-02-2024 End: 06-02-2024 Telephone encounter Eda Gabriel DEPUTY [employer] CLERK Navigation Comment on above: Refill Request Start: 06-01-2024 End: 06-01-2024 Office outpatient visit 25 minutes Romina Flynn APRN.IGNITER CAPPER Work Phone: [facility] Comment on above: Parkinson's disease with dyskinesia, unspecified whether manifestations fluctuate (HCC) (Primary Dx); Anxiety; Diabetic polyneuropathy associated with type 2 diabetes mellitus (HCC); Benign prostatic hyperplasia without lower urinary tract symptoms; Paroxysmal atrial fibrillation (HCC); Age-related physical debility Start: 06-01-2024 End: 06-01-2024 ambulatory [facility] Facility:[facility] Start: 06-01-2024 End: 06-01-2024 Telephone encounter Romina Flynn APRN.IGNITER CAPPER Work Phone: [facility] Start: 05-29-2024 End: 05-29-2024 ambulatory [facility] Work Phone: Hematology/Oncology Comment on above: 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) (HCC) (Primary Dx) 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) (HCC) (Primary Dx); Iron malabsorption Start: 05-29-2024 End: 05-29-2024 Patient encounter procedure Yenny Bill Work Phone: Hematology/Oncology Start: 05-29-2024 End: 05-29-2024 ambulatory [facility] Facility:[facility] Start: 05-23-2024 End: 05-23-2024 Telephone encounter Arsh Polk MD Work Phone: [facility] Comment on above: Home Health Point of Care Results Start: 05-22-2024 End: 05-22-2024 Telephone encounter Arsh Polk MD Work Phone: [facility] Comment on above: Home Care Management Start: 05-19-2024 End: 05-19-2024 Telephone encounter Arsh Polk MD Work Phone: [facility] Comment on above: Home Health REquest Start: 04-27-2024 End: 05-19-2024 Evaluation and management of inpatient Bertrand Murphy Juan Antonio Facility:[facility] Start: 04-27-2024 End: 04-27-2024 Telephone encounter Kelin Mojica APRN.CNP Work Phone: [address] [place] [address] Start: 04-26-2024 End: 04-27-2024 Telephone encounter Kaylee Herrmann PA-C Work Phone: Neurology Comment on above: Patient Update Start: 04-25-2024 ambulatory John Herndon Facility[facility] Start: 04-24-2024 ambulatory Owen Chakraborty Fac ility:[facility] Start: 04-24-2024 End: 04-27-2024 Evaluation and management of inpatient Owen Chakraborty Facility:[facility] Start: 04-24-2024 ambulatory Rey Carrillo Brandies Fac ility:[facility] Start: 04-20-2024 End: 04-24-2024 Telephone encounter Arsh Otto MD Work Phone: Neurology Start: 04-17-2024 End: 04-17-2024 ambulatory [facility] Work Phone: Hematology/Oncology Comment on above: 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) (HCC) (Primary Dx) Start: 04-12-2024 End: 04-12-2024 Telephone encounter Arsh Otto MD Work Phone: Sleep Comment on above: Medication Problem Start: 04-12-2024 End: 04-12-2024 ambulatory ARSH POLK Facility:[facility] Start: 04-12-2024 End: 04-12-2024 Subsequent hospital visit by physician [facility] (I-Stat/1.5t) Work Phone: Radiology Comment on above: Acute pain of left s houlder due to trauma [M25.512, G89.11] 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] Start: 04-03-2024 End: 04-03-2024 ambulatory ARSH POLK Facility:[facility] Start: 04-03-2024 End: 04-03-2024 Patient encounter procedure Denny Toure MD Work Phone: Orthopaedics Comment on above: Acute pain of left s houlder (Primary Dx); Other closed nondisplaced fracture of proximal end of left humerus, initial encounter Start: 04-03-2024 End: 04-03-2024 Patient encounter procedure Yenny Bill Work Phone: Hematology/Oncology Start: 04-03-2024 End: 04-03-2024 ambulatory [facility] Work Phone: Hematology/Oncology Comment on above: 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) (HCC) (Primary Dx) 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) (HCC) (Primary Dx); Iron malabsorption Start: 03-30-2024 End: 03-30-2024 Telephone encounter Arsh Polk MD Work Phone: [facility] Comment on above: Results (Arm fractur e) Start: 03-27-2024 End: 03-27-2024 ambulatory ARSH POLK Facility:[facility] Start: 03-27-2024 End: 03-27-2024 ambulatory ARSH POLK Facility:[facility] Start: 03-27-2024 End: 03-27-2024 Subsequent hospital visit by physician [facility] Work Phone: Radiology Comment on above: Acute pain of left s houlder [M25.512] Start: 03-27-2024 End: 03-27-2024 ambulatory ARSH POLK Facility:[facility] Start: 03-27-2024 End: 03-27-2024 Patient encounter procedure Arsh Polk MD Work Phone: [facility] Comment on above: Parkinson's disease, unspecified whether dyskinesia present, unspecified whether manifestations fluctuate (HCC) (Primary Dx); Essential hypertension, benign; Mixed hyperlipidemia; Hypertensive kidney disease with stage 3 chronic kidney disease, 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); Coronary artery disease involving [place] coronary artery of [place] heart without angina pectoris; IRINEO (obstructive sleep apnea); Anemia due to vitamin B12 deficiency, unspecified B12 deficiency type; Type 2 diabetes mellitus with stage 3 chronic kidney disease, without long-term current use of insulin, 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); 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); Vitamin D deficiency; BMI 40.0-44.9, adult (HCC); Acute pain of left shoulder Parkinson's disease, unspecified whether dyskinesia present, unspecified whether manifestations fluctuate (HCC) (Primary Dx); Spinal stenosis of lumbar region with neurogenic claudication; Acute pain of left shoulder due to trauma; Neuropathy; Abnormality of gait; IRINEO on CPAP; Treatment-emergent central sleep apnea; Class 3 severe obesity with body mass index (BMI) of 40.0 to 44.9 in adult, unspecified obesity type, unspecified whether serious comorbidity present (HCC) Start: 03-21-2024 End: 04-03-2024 Telephone encounter Arsh Polk MD Work Phone: [facility] Comment on above: Patient Question Start: 03-20-2024 End: 03-20-2024 [facility] Work Phone: Hematology/Oncology Comment on above: 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) (HCC) (Primary Dx) Start: 03-06-2024 End: 03-06-2024 Patient encounter procedure Yenny Bill Work Phone: Hematology/Oncology Start: 03-06-2024 End: 03-06-2024 ambulatory [facility] Work Phone: Hematology/Oncology Comment on above: 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) (HCC) (Primary Dx) Start: 03-04-2024 End: 03-06-2024 Refill Arsh Polk MD Work Phone: [facility] [place] Comment on above: Refill Request Start: 02-21-2024 End: 02-21-2024 ambulatory [facility] Work Phone: Hematology/Oncology Comment on above: 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) (HCC) (Primary Dx) Start: 02-07-2024 End: 02-07-2024 Telephone encounter Yenny Fly Work Phone: Hematology/Oncology Start: 02-07-2024 End: 02-07-2024 ambulatory [facility] Work Phone: Hematology/Oncology Comment on above: 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) (HCC) (Primary Dx) Start: 02-02-2024 End: 02-02-2024 Patient encounter procedure Arsh Polk MD Work Phone: [facility] Comment on above: Open fracture of mul tiple ribs of right side with routine healing, subsequent encounter (Primary Dx); Stage 3 chronic kidney disease, 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); Anemia due to folic acid deficiency, unspecified deficiency type; Essential hypertension, benign; Hypertensive kidney disease with stage 3 chronic kidney disease, 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); History of iron deficiency anemia Start: 01-31-2024 End: 02-02-2024 ambulatory Yenny Bill Work Phone: Hematology/Oncology Comment on above: Ramírez s shots Start: 01-26-2024 End: 01-26-2024 Subsequent hospital visit by physician [facility] Work Phone: Radiology Comment on above: Rib pain on right si de [R07.81] Start: 01-26-2024 End: 01-26-2024 Office outpatient visit 15 minutes Gabriel Butler APRN.CNP Work Phone: [facility] Comment on above: Rib pain on right si de (Primary Dx); Closed fracture of multiple ribs of right side, initial encounter Start: 01-21-2024 End: 01-24-2024 Orders Only Yenny Bill Work Phone: Hematology/Oncology Start: 01-19-2024 End: 01-19-2024 ambulatory Yenny Bill Work Phone: Hematology/Oncology Comment on above: 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) (HCC) (Primary Dx); Stage 3b chronic kidney disease (HCC); Iron malabsorption; Anemia, unspecified type Start: 01-19-2024 End: 01-19-2024 Patient encounter procedure Yenny Bill Work Phone: Hematology/Oncology Start: 01-14-2024 End: 01-17-2024 Orders Only Yenny Bill Work Phone: Hematology/Oncology Comment on above: 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) (HCC) (Primary Dx); Iron malabsorption Start: 12-29-2023 End: 12-29-2023 Patient encounter procedure Kaylee Herrmann PA-C Work Phone: Neurology Comment on above: Weakness of both low er extremities (Primary Dx); Parkinson's disease, unspecified whether dyskinesia present, unspecified whether manifestations fluctuate (HCC); Sciatica of right side; Neuropathy; Abnormality of gait; Depression, unspecified depression type; Lumbar degenerative disc disease Start: 12-22-2023 End: 12-22-2023 ambulatory [facility] Work Phone: Hematology/Oncology Comment on above: Iron malabsorption ( Primary Dx); 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); Stage 3b chronic kidney disease (HCC) Start: 12-22-2023 End: 12-22-2023 Patient encounter procedure Treatment Rm [facility] Work Phone: Hematology/Oncology Start: 12-20-2023 End: 12-20-2023 ambulatory [facility] Work Phone: Hematology/Oncology Comment on above: Iron malabsorption ( Primary Dx); 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); Stage 3b chronic kidney disease (HCC) Start: 12-20-2023 End: 12-20-2023 Patient encounter procedure Treatment Rm 17 [facility] Work Phone: Hematology/Oncology Start: 12-18-2023 Refill Arsh Polk MD Work Phone: [facility] Comment on above: Refill Request Start: 12-17-2023 End: 12-17-2023 ambulatory [facility] Work Phone: Hematology/Oncology Comment on above: Iron malabsorption ( Primary Dx); 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); Stage 3b chronic kidney disease (HCC) Start: 12-17-2023 End: 12-17-2023 Patient encounter procedure Treatment Rm 14 [facility] Work Phone: Hematology/Oncology Start: 12-15-2023 End: 12-15-2023 ambulatory [facility] Work Phone: Hematology/Oncology Comment on above: Iron malabsorption ( Primary Dx); 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); Stage 3b chronic kidney disease (HCC) Start: 12-15-2023 End: 12-15-2023 Patient encounter procedure Treatment Rm 14 [facility] Work Phone: Hematology/Oncology Start: 12-13-2023 Telephone encounter Marlen feliciano APRN.IGNITER CAPPER Work Phone: Neurology Comment on above: Patient Update Start: 12-13-2023 End: 12-13-2023 ambulatory [facility] Work Phone: Hematology/Oncology Comment on above: Iron malabsorption ( Primary Dx); 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); Stage 3b chronic kidney disease (HCC) Start: 12-13-2023 End: 12-13-2023 Patient encounter procedure Treatment Rm 16 [facility] Work Phone: Hematology/Oncology Start: 12-02-2023 Telephone encounter Yenny garcia Work Phone: Hematology/Oncology Comment on above: Results; Care Coordi nator - Other Start: 11-29-2023 End: 11-29-2023 ambulatory Yenny Bill Work Phone: Hematology/Oncology Comment on above: Anemia, unspecified type Start: 11-29-2023 End: 11-29-2023 Patient encounter procedure Yenny Bill Work Phone: Hematology/Oncology Start: 11-14-2023 Refill Arsh Polk MD Work Phone: [facility] Comment on above: Refill Request Start: 11-08-2023 Telephone encounter Arsh Polk MD Work Phone: [facility] [place] Comment on above: Results Start: 11-08-2023 End: 11-08-2023 Patient encounter procedure Marlen Madrigal DIETARY TECH.IGNITER CAPPER Work Phone: Neurology Comment on above: IRINEO (obstructive sle ep apnea) (Primary Dx); Treatment-emergent central sleep apnea Start: 11-03-2023 Refill Arsh Polk MD Work Phone: [facility] [place] Comment on above: Refill Request Start: 11-02-2023 Telephone encounter Marlen feliciano DIETARY TECH.IGNITER CAPPER Work Phone: Neurology Comment on above: PAP Therapy Follow U p Start: 10-20-2023 Telephone encounter Arsh Polk MD Work Phone: [facility] Comment on above: Results Start: 09-17-2023 End: 09-17-2023 Patient encounter procedure Arsh Polk MD Work Phone: [facility] Comment on above: Diabetic polyneuropa thy associated with type 2 diabetes mellitus (HCC) (Primary Dx); Hypersomnia; Aortic valve stenosis, etiology of cardiac valve disease unspecified; History of non-ST elevation myocardial infarction (NSTEMI); Hypertensive kidney disease with stage 3 chronic kidney disease, 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); Mixed hyperlipidemia; Essential hypertension, benign; Coronary artery disease involving [place] coronary artery of [place] heart without angina pectoris; Multiple premature ventricular complexes; Anemia due to vitamin B12 deficiency, unspecified B12 deficiency type; Anemia due to folic acid deficiency, unspecified deficiency type; Type 2 diabetes mellitus with stage 3 chronic kidney disease, without long-term current use of insulin, 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); 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); Anxiety with depression; TIA (transient ischemic attack); Vitamin D deficiency; BMI 40.0-44.9, adult (HCC); History of iron deficiency anemia; Parkinson's disease, unspecified whether dyskinesia present, unspecified whether manifestations fluctuate (HCC); Benign prostatic hyperplasia without lower urinary tract symptoms; IRINEO (obstructive sleep apnea) Start: 09-16-2023 Telephone encounter Arsh Otto MD Work Phone: Neurology Comment on above: Fax over OV from 08/09 01/31 Start: 09-14-2023 Refill Arsh Polk MD Work Phone: [facility] Comment on above: Refill Request Start: 09-13-2023 Refill Arsh Polk MD Work Phone: [facility] Comment on above: Refill Request Start: 09-06-2023 End: 09-06-2023 Patient encounter procedure Arsh Otto MD Work Phone: Neurology Comment on above: Parkinson's disease, unspecified whether dyskinesia present, unspecified whether manifestations fluctuate (HCC) (Primary Dx); Weakness of both lower extremities; Lumbar degenerative disc disease; Sciatica of right side; Neuropathy; IRINEO on CPAP; Treatment-emergent central sleep apnea; Abnormality of gait; Class 3 severe obesity with body mass index (BMI) of 40.0 to 44.9 in adult, unspecified obesity type, unspecified whether serious comorbidity present (HCC) Start: 09-06-2023 Telephone encounter Arsh Otto MD Work Phone: Neurology Start: 09-02-2023 Telephone encounter Arsh Otto MD Work Phone: Neurology Comment on above: Appointment Start: 08-24-2023 End: 08-24-2023 ambulatory [facility] Work Phone: Start: 08-24-2023 End: 08-24-2023 Patient encounter procedure [facility]-Laboratory Work Phone: Start: 07-26-2023 End: 07-26-2023 ambulatory [facility] Work Phone: Start: 07-26-2023 End: 07-26-2023 Patient encounter procedure [facility]-Ultrasound, [facility] Work Phone: Start: 07-20-2023 End: 07-20-2023 ambulatory [facility] Work Phone: Start: 07-20-2023 End: 07-20-2023 Patient encounter procedure [facility]-Laboratory, Specimen Work Phone: Start: 07-08-2023 Refill Kaylee florez PA-C Work Phone: Neurology Comment on above: Refill Request Start: 06-18-2023 End: 06-18-2023 Patient encounter procedure Arsh Polk MD Work Phone: [facility] Comment on above: Mixed hyperlipidemia (Primary Dx); Essential hypertension, benign; Aortic valve stenosis, etiology of cardiac valve disease unspecified; Hypertensive kidney disease with stage 3 chronic kidney disease, 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); Anemia due to vitamin B12 deficiency, unspecified B12 deficiency type; Anemia due to folic acid deficiency, unspecified deficiency type; Diabetic polyneuropathy associated with type 2 diabetes mellitus (HCC) Start: 06-17-2023 Telephone encounter Arsh Polk MD Work Phone: [facility] Comment on above: Results Start: 04-05-2023 Refill Arsh Polk MD Work Phone: [facility] Comment on above: Refill Request Start: 03-01-2023 Refill Arsh Polk MD Work Phone: [facility] Comment on above: Refill Request Start: 02-16-2023 End: 02-16-2023 Subsequent hospital visit by physician [facility] (I-Stat/1.5t) Work Phone: Radiology Comment on above: Other symptoms and s igns involving the nervous system [R29.818] Start: 01-26-2023 End: 01-26-2023 Patient encounter procedure Kaylee Herrmann PA-C Work Phone: Neurology Comment on above: Parkinson disease (H CC) (Primary Dx); Weakness of both lower extremities; Lumbar degenerative disc disease; Other symptoms and signs involving the nervous system Start: 12-06-2022 Refill Arsh Polk MD Work Phone: [facility] Comment on above: Refill Request Start: 11-26-2022 End: 11-26-2022 Patient encounter procedure Arsh Polk MD Work Phone: [facility] Comment on above: Diabetic polyneuropa thy associated with type 2 diabetes mellitus (HCC) (Primary Dx); Hypertensive kidney disease with stage 3 chronic kidney disease, 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); Mixed hyperlipidemia; Essential hypertension, benign; History of non-ST elevation myocardial infarction (NSTEMI); IRINEO (obstructive sleep apnea); Anemia due to folic acid deficiency, unspecified deficiency type; Anemia due to vitamin B12 deficiency, unspecified B12 deficiency type; Type 2 diabetes mellitus with stage 3 chronic kidney disease, without long-term current use of insulin, 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); Benign non-nodular prostatic hyperplasia with lower urinary tract symptoms; 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); Anxiety with depression; TIA (transient ischemic attack); Vitamin D deficiency; Tremor, essential; Abrasion Start: 11-23-2022 End: 11-23-2022 Patient encounter procedure Arsh Otto MD Work Phone: Neurology Comment on above: IRINEO on CPAP (Primary Dx); Treatment-emergent central sleep apnea; Parkinson disease (HCC) Start: 11-12-2022 Telephone encounter Arsh Polk MD Work Phone: [facility] Comment on above: Orders Start: 11-02-2022 Refill Arsh Polk MD Work Phone: [facility] Comment on above: Refill Request Start: 10-23-2022 End: 10-23-2022 ambulatory [facility] Work Phone: Start: 10-23-2022 End: 10-23-2022 Patient encounter procedure [facility]-Sleep Lab Start: 10-22-2022 Telephone encounter Arsh Otto MD Work Phone: Neurology Comment on above: Patient Question Start: 10-21-2022 ambulatory Arsh abdullahi Jr., MD Work Phone: [facility] Start: 10-21-2022 Patient encounter procedure Arsh Otto MD Work Phone: Neurology Comment on above: Mask fit appointment Start: 07-20-2022 Refill Arsh Polk MD Work Phone: [facility] Comment on above: Refill Request Start: 07-18-2022 Refill Darnell Mackey PA-C Work Phone: Urology Comment on above: Refill Request Start: 07-15-2022 Refill Darnell Mackey PA-C Work Phone: Urology Comment on above: Refill Request Start: 07-09-2022 End: 07-09-2022 Subsequent hospital visit by physician [facility] Work Phone: Radiology Comment on above: URI, acute [J06.9] Start: 07-09-2022 End: 07-09-2022 Patient encounter procedure Montez CONNOR Work Phone: [facility] Comment on above: URI, acute (Primary Dx); Acute cough Start: 06-24-2022 End: 06-24-2022 ambulatory [facility] Work Phone: Start: 06-24-2022 End: 06-24-2022 Patient encounter procedure [facility]-Sleep Lab Start: 06-22-2022 Refill Arsh Polk MD Work Phone: [facility] Comment on above: Refill Request Start: 05-29-2022 End: 05-29-2022 Patient encounter procedure Arsh Polk MD Work Phone: [facility] Comment on above: Diabetic polyneuropa thy associated with type 2 diabetes mellitus (HCC) (Primary Dx); Morbid obesity with BMI of 40.0-44.9, adult (HCC); Type 2 diabetes mellitus with stage 3 chronic kidney disease, without long-term current use of insulin, 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); 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 1 through stage 4 chronic kidney disease, or unspecified chronic kidney disease (HCC); Tremor, essential; Mixed hyperlipidemia; Hypertensive kidney disease with stage 3 chronic kidney disease, 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); History of non-ST elevation myocardial infarction (NSTEMI); Essential hypertension, benign; Aortic valve stenosis, etiology of cardiac valve disease unspecified; Anemia due to folic acid deficiency, unspecified deficiency type; Anemia due to vitamin B12 deficiency, unspecified B12 deficiency type; Stage 3 chronic kidney disease, 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); Lymphoma in remission ([facility]); Vitamin D deficiency; TIA (transient ischemic attack); Microalbuminuria; Anxiety with depression; IRINEO (obstructive sleep apnea) Start: 05-06-2022 Refill Arsh Polk MD Work Phone: [facility] Comment on above: Refill Request Start: 04-05-2022 Refill Mery Meng on [employer]svine Work Phone: [facility] Comment on above: Refill Request Start: 03-25-2022 End: 03-25-[address] Arsh Polk Work Phone: [facility] Work Phone: Start: 03-25-2022 End: 03-25-[address] Arsh Polk Work Phone: [facility]Sleep Lab Start: 03-11-2022 ambulatory Arsh Polk MD Work Phone: [facility] Comment on above: Ramírez -sleep test Start: 03-10-2022 End: 03-10-[address] Arsh Polk Work Phone: [facility] Work Phone: Start: 03-10-2022 End: 03-10-[address] Arsh Polk Work Phone: [facility]Sleep Lab Start: 03-09-2022 Refill Mery Meng on PA-C Work Phone: [facility] Comment on above: Refill Request Start: 03-02-2022 Telephone encounter Arsh Polk MD Work Phone: [facility] Comment on above: [facility] Sleep Lab reques ting records Start: 02-20-2022 End: 02-20-[address] Arsh Polk Work Phone: [facility] Start: 01-21-2022 Telephone encounter Arsh Polk MD Work Phone: [facility] Comment on above: Appointment Start: 01-21-2022 End: 01-21-2022 Patient encounter procedure Arsh Polk MD Work Phone: [facility] Comment on above: Fatigue, unspecified type (Primary Dx); Encounter for immunization; Anxiety with depression; IRINEO (obstructive sleep apnea) Start: 01-20-2022 Telephone encounter Arsh Polk MD Work Phone: [facility] Comment on above: Results Start: 12-16-2021 End: 12-16-[address] Arsh Polk Work Phone: [facility] Start: 12-11-2021 End: 12-11-2021 Subsequent hospital visit by physician [facility] Cat Scan Comment on above: Lymphoma in remissio n (HCC) [C85.90] Start: 12-10-2021 End: 12-10-2021 Patient encounter procedure Arsh Polk MD Work Phone: [facility] Comment on above: Fatigue, unspecified type (Primary Dx); Diabetic polyneuropathy associated with type 2 diabetes mellitus (HCC); Hypertensive kidney disease with stage 3 chronic kidney disease, 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); Mixed hyperlipidemia; Aortic valve stenosis, etiology of cardiac valve disease unspecified; Anemia due to folic acid deficiency, unspecified deficiency type; Anemia due to vitamin B12 deficiency, unspecified B12 deficiency type; Type 2 diabetes mellitus with stage 3 chronic kidney disease, without long-term current use of insulin, 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); 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 Arsh Polk Work Phone: [facility]Laboratory Start: 11-18-2021 Chart abstracting Sleep Center Main Work Phone: Neurology Comment on above: HSAT Check In (Adult ) Start: 11-13-2021 Non-patient / Non-visit Dr. Davin Polk Work Phone: [facility] Start: 11-12-2021 Non-patient / Non-visit Dr. Davin Polk Work Phone: [facility] Start: 11-12-2021 End: 11-12-2021 Admission to same day surgery center Dr. Arsh Polk Work Phone: [facility]-Endoscopy Start: 11-07-2021 Telephone encounter Arsh Polk MD Work Phone: [facility] Comment on above: Medication Problem Start: 11-07-2021 End: 11-07-2021 Patient encounter procedure Arsh Polk MD Work Phone: [facility] Comment on above: Essential hypertensi on, benign (Primary Dx); Mixed hyperlipidemia; Fatigue, unspecified type; Anemia, unspecified type; Vitamin B12 deficiency; IRINEO (obstructive sleep apnea); Diabetic polyneuropathy associated with type 2 diabetes mellitus (HCC); Aortic valve stenosis, etiology of cardiac valve disease unspecified; Anemia due to folic acid deficiency, unspecified deficiency type; Anemia due to vitamin B12 deficiency, unspecified B12 deficiency type Start: 10-28-2021 End: 10-28-2021 Patient encounter procedure Darnell Mackey PA-C Work Phone: Urology Comment on above: Phimosis (Primary Dx ) Start: 10-25-2021 Refill Arsh Polk MD Work Phone: [facility] Comment on above: Refill Request Start: 10-16-2021 End: 10-16-[address] Arsh Polk Work Phone: [facility] Start: 10-13-2021 Non-patient / Non-visit Dr. Davin Polk Work Phone: [facility] Start: 10-13-2021 End: 10-13-[address] Arsh Polk Work Phone: [facility]Cardiovascular Services Start: 10-13-2021 End: 10-13-[address] Arsh Polk Work Phone: [facility] Start: 08-30-2021 Refill Arsh Polk MD Work Phone: [facility] Comment on above: Refill Request Start: 02-14-2021 End: 02-14-2021 Subsequent hospital visit by physician [facility] Work Phone: Radiology Comment on above: Cough [R05.9] Start: 11-07-2020 End: 11-07-2020 Subsequent hospital visit by physician [facility] Work Phone: Radiology Comment on above: Diarrhea, unspecifie d type [R19.7] Start: 10-24-2020 End: 10-24-2020 Subsequent hospital visit by physician Alav Lara APRN - IGNITER CAPPER Work Phone: [facility] Comment on above: Severe aortic stenos is Start: 10-16-2020 End: 10-17-2020 Evaluation and management of inpatient Curry Shore MD Work Phone: [facility] Comment on above: Arrived Start: 10-03-2020 End: 10-03-2020 Subsequent hospital visit by physician Radha Mistry DIETARY TECH - IGNITER CAPPER Work Phone: [facility] [address] Comment on above: Aortic valve stenosi s, etiology of cardiac valve disease unspecified; Dyspnea on exertion Procedures Date Procedure Procedure Detail Performing Clinician Start: 11-09-2024 Ct head/brain w/o contrast material Patti Moreira APRN.IGNITER CAPPER Work Phone: Start: 10-25-2024 Mri brain brain stem w/o contrast material Arsh Otto MD Work Phone: Start: 09-03-2024 Plain chest X-ray Dr. Arsh Polk MD Work Phone: Start: 09-03-[address] Arsh Polk MD Work Phone: Start: 08-31-2024 Urnls dip stick/tablet reagent auto microscopy Dr. Arsh Polk MD Work Phone: Start: 08-31-[address] Arsh Polk MD Work Phone: Start: 08-25-[address] Arsh Polk MD Work Phone: Start: 08-25-2024 Serum inorganic phosphate measurement Dr. Arsh Polk MD Work Phone: Start: 04-12-2024 Mri any jt upper extremity w/o contrast matrl Arsh Otto MD Work Phone: Start: 01-26-2024 Radex ribs uni w/posteroant ch minimum 3 views Gabriel Butler APRN.IGNITER CAPPER Work Phone: Start: 07-26-2023 US urinary tract Start: 02-16-2023 Mri brain brain stem w/o contrast material Kaylee Herrmann PA-C Work Phone: Start: 07-09-2022 Radiologic exam chest 2 views Montez CONNOR Work Phone: Start: 01-21-2022 INFLUENZA SEASONAL QUADRIVALENT HIGH DOSE AGE 65+ Arsh Polk MD Work Phone: Start: 12-11-2021 Ct abdomen & pelvis w/o contrast material Arsh Polk MD Work Phone: Start: 11-12-[address] Arsh Polk Work Phone: Start: 10-28-2021 Urnls dip stick/tablet rgnt auto w/o microscopy Darnell Mackey PA-C Work Phone: Start: 02-14-2021 Radiologic exam chest 2 views Pretty Mims DIETARY TECH.IGNITER CAPPER Work Phone: Start: 11-07-2020 Radiologic exam abdomen 1 view Arsh Polk MD Work Phone: Start: 11-07-2020 Radiologic exam chest 2 views Arsh Polk MD Work Phone: Start: 10-24-2020 Basic metabolic panel calcium total Alva Lara DIETARY TECH - IGNITER CAPPER Work Phone: Start: 10-17-2020 Echo tthrc r-t 2d w/wom-mode compl spec&colr d Radha Mistry DIETARY TECH - IGNITER CAPPER Work Phone: Start: 10-17-2020 Ecg routine ecg w/least 12 lds w/i&r Radha Mistry DIETARY TECH - IGNITER CAPPER Work Phone: Start: 10-17-2020 Gluc bld gluc mntr dev cleared fda spec home use Curry Shore MD Work Phone: Start: 10-17-2020 Basic metabolic panel calcium total Radha Mistry DIETARY TECH - IGNITER CAPPER Work Phone: Start: 10-16-2020 Ecg routine ecg w/least 12 lds w/i&r Radha Mistry DIETARY TECH - IGNITER CAPPER Work Phone: Start: 10-16-2020 OPERATIVE REPORT 3m Scanning Start: 10-16-2020 Ecg routine ecg w/least 12 lds w/i&r Radha Mistry DIETARY TECH - IGNITER CAPPER Work Phone: Start: 10-16-2020 Basic metabolic panel calcium total Radha Mistry DIETARY TECH - IGNITER CAPPER Work Phone: Start: 10-16-2020 Echocardiography Curry Pacheco Work Phone: Start: 10-16-2020 Gluc bld gluc mntr dev cleared fda spec home use Curry Shore MD Work Phone: Start: 10-03-2020 Antibody screen Radha Mistry DIETARY TECH - C SUPERVISING DEPUTY Work Phone: Start: 10-03-2020 Blood typing serologic abo Curry mcdonald MD Work Phone: Start: 10-03-2020 Comprehensive metabolic panel Curry Shore MD Work Phone: Start: 10-03-2020 Radiologic exam chest 2 views Radha Mistry DIETARY TECH - IGNITER CAPPER Work Phone: Start: 03-24-2017 End: 03-24-2017 VOLTAGE TESTER John Herndon MD Start: 03-24-2017 End: 03-24-2017 Ecg routine ecg w/least 12 lds w/i&r John Herndon MD Start: 03-24-2017 End: 03-24-2017 Follow Up Appt 1 year John Herndon MD Plan of Treatment Date Care Activity Detail Author Start: 11-26-2032 Urine microalbumin profile [facility] Start: 01-02-2026 Diabetic foot examination Diabetic Foot Exam [facility] Start: 09-25-2025 Shingrix Vaccine (1 of 2) Shingrix Vaccine (1 of 2) [facility] Comment on above: Postponed from 1959 (Declined at t his time) Postponed from 05/10 (Declined at this time) Start: 07-16-2025 End: 07-16-2025 Patient encounter procedure 07/16/2025 1:40 PM EDT Office Visit Family Alejandro Cain [address] [place], [place] [phone] rAsh Polk MD [address] [place], [place] [phone] 6 mo follow up Family Alejandro Cain Comment on above: 6 mo follow up Start: 07-13-2025 Glaucoma screening Dilated Retinal Exam [facility] Start: 07-06-2025 End: 10-05-2025 Comprehensive metabolic 2000 panel - Serum or Plasma COMPREHENSIVE METABOLIC PANEL Lab Routine 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 1 through stage 4 chronic kidney disease, or unspecified chronic kidney disease (HCC) Expected: 07/06/2025, Expires: 10/05/2025 [facility] Comment on above: Expected: 07/06/2025, Expires: Start: 07-06-2025 End: 10-05-2025 Hemoglobin A1c in Blood HEMOGLOBIN A1C Lab Routine Diabetic polyneuropathy associated with type 2 diabetes mellitus (HCC) Expected: 07/06/2025, Expires: 10/05/2025 [facility] Work Phone: Comment on above: Expected: 07/06/2025, Expires: Start: 07-06-2025 End: 10-05-2025 Lipid 1996 panel - Serum or Plasma LIPID PANEL, FASTING Lab Routine 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 1 through stage 4 chronic kidney disease, or unspecified chronic kidney disease (HCC) Expected: 07/06/2025, Expires: 10/05/2025 [facility] Comment on above: Expected: 07/06/2025, Expires: Start: 06-28-2025 Hemoglobin A1c measurement HbA1C [facility] Start: 04-18-2025 End: 04-18-2025 ambulatory [facility] Comment on above: (SO)CBC* QMO ARANESP/LAB GIUSEPPE Y* Start: 03-30-2025 End: 03-30-2025 Patient encounter procedure 03/30/2025 11:40 AM EST Office Visit Neurology [address] [place] [address] Arsh Otto Jr., MD [address] [place] [address] f/up Neurology Comment on above: f/up Start: 03-27-2025 Covid-19 Vaccine ( season) Covid-19 Vaccine ( season) [facility] Comment on above: Postponed from 03/28/2024 (Declined at t his time) Start: 03-27-2025 Covid-19 Vaccine (7 - Moderna risk season) Covid-19 Vaccine (7 - Moderna risk ) [facility] Comment on above: Postponed from 07/31/2024 (Declined at t his time) Start: 03-27-2025 Hepatitis B screening Urine Albumin:Creatinine Ratio [facility] Start: 03-21-2025 Hemoglobin A1c measurement HbA1C [facility] Start: 03-21-2025 End: 03-21-2025 [facility] Comment on above: (SO)CBC* QMO ARANESP/LAB GIUSEPPE Y* Start: 03-20-2025 Hepatitis B surface antibody level LDL Cholesterol [facility] Start: 03-01-2025 End: 03-01-2025 Patient encounter procedure 03/01/2025 1:00 PM EDT [facility] [address] [place] [id number] Yeyo Bailey APRN.IGNITER CAPPER [address] [place] [address] 3 mo f/u - CT 02/26 [facility] Comment on above: 3 mo f/u - CT 02/26 Start: 02-26-2025 End: 02-26-2025 Patient encounter procedure 02/26/2025 1:20 PM EDT Appointment Cat Scan [address] [place] [address] Dx: Subdural hematoma, 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] Cat Scan Comment on above: Dx: Subdural hematoma, chronic (HCC) [I6 2.03] Start: 02-21-2025 End: 02-21-2025 ambulatory [facility] Comment on above: (SO)CBC* QMO ARANESP/LAB GIUSEPPE Y* Start: 02-02-2025 End: 02-02-2025 Patient encounter procedure 02/02/2025 2:15 PM EDT Office Visit [facility] [address] [place] [address] Palak Herman, OD [address] [place] [address] Diagnostics[facility] [address] [place] [phone] Dx: Vision loss [H54.7] Ophthalmology Comment on above: Dx: Vision loss [H54.7] Start: 01-30-2025 End: 01-30-2025 Patient encounter procedure Neurology Comment on above: Appt to address new issue and concerns Dx: Vision loss [H54 .7] Start: 01-24-2025 End: 01-24-2025 ambulatory [facility] Comment on above: (SO)CBC* QMO ARANESP/LAB GIUSEPPE Y*3MO OV IN DEC QMO ARANESP/LAB GIUSEPPE Y* Start: 01-08-2025 Influenza vaccination Influenza Vaccine (#1) [facility] Start: 01-03-2025 End: 01-03-2025 Patient encounter procedure 01/03/2025 2:20 PM EDT Office Visit [facility] [place] [address] [place], [place] [phone] Arsh Polk MD [address] [place], [place] [phone] medicare wellness. labs prior [facility] Comment on above: medicare wellness. labs prior Start: 12-26-2024 End: 03-27-2025 Basic metabolic 2000 panel - Serum or Plasma BASIC METABOLIC PANEL Lab Routine Stage 3 chronic kidney disease, 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) Expected: 12/26/2024, Expires: 03/27/2025 [facility] Work Phone: Comment on above: Expected: 12/26/2024, Expires: Start: 12-26-2024 End: 03-27-2025 Hemoglobin A1c in Blood HEMOGLOBIN A1C Lab Routine Type 2 diabetes mellitus with stage 3 chronic kidney disease, without long-term current use of insulin, 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) Expected: 12/26/2024, Expires: 03/27/2025 [facility] Comment on above: Expected: 12/26/2024, Expires: Start: 12-26-2024 End: 12-26-2024 ambulatory [facility] Comment on above: (SO)CBC* 3 MO OV/LAB EARLY/IN J TODAY* QMO ARANESP/LAB GIUSEPPE Y*3MO OV IN DEC (SO)CBC/Q3MO IRON ST UDIES* QMO ARANESP/LAB&OV E ANNE* Start: 11-29-2024 End: 11-29-2024 ambulatory [facility] Comment on above: (SO)CBC* QMO ARANESP/LAB GIUSEPPE Y* QMO ARANESP/LAB GIUSEPPE Y*3MO OV IN DEC Start: 11-28-2024 End: 11-28-2024 Patient encounter procedure 11/28/2024 11:00 AM EDT Office Visit [facility] [address] [place], [place] [phone] Romina Flynn, DIETARY TECH.IGNITER CAPPER [address] [place], [place] [phone] Pressure ulcers on reddened buttocks for a few weeks now. See triage. [facility] Comment on above: Pressure ulcers on reddened buttocks for a few weeks now. See triage. Start: 11-23-2024 End: 11-23-2024 Patient encounter procedure 11/23/2024 1:00 PM EDT Office Visit [facility] [address] [facility] [place] [id number] Yeyo Bailey, DIETARY TECH.IGNITER CAPPER [address] [place] [address] SDH f/u, CT done 11/09 *pt requested this date, cannot move up [facility] Comment on above: SDH f/u, CT done 11/09 *pt requested this date, cannot move up Start: 11-09-2024 End: 11-09-2024 Patient encounter procedure 11/09/2024 11:40 AM EDT Appointment Cat Scan [address] [place], [place] [phone] Subdural hematoma (HCC) [S06.5XAA] Cat Scan Comment on above: Subdural hematoma (HCC) [S06.5XAA] Start: 11-01-2024 End: 11-01-2024 ambulatory [place] [facility] Comment on above: (SO)CBC* QMO ARANESP/LAB GIUSEPPE Y* Start: 10-25-2024 End: 10-25-2024 Patient encounter procedure 10/25/2024 12:00 PM EDT Appointment Rad[facility] [address] [facility] [place] [phone] Parkinson's disease, unspecified whether dyskinesia present, unspecified whether manifestations fluctuate (HCC) [G20.A1]; Abnormality of gait [R26.9]; Altered mental status, unspecified altered mental status type [R41.82] Radiology Comment on above: Parkinson's disease, unspecified whether dyskinesia present, unspecified whether manifestations fluctuate (HCC) [G20.A1]; Abnormality of gait [R26.9]; Altered mental status, unspecified altered mental status type [R41.82] Start: 10-24-2024 Glaucoma screening Dilated Retinal Exam [facility] Start: 10-20-2024 End: 10-20-2024 Patient encounter procedure 10/20/2024 3:20 PM EDT Office Visit Neurology [address] [place] [phone] Arsh Otto Jr., MD [address] [place] [address] hospital f/u Neurology Comment on above: hospital f/u Start: 10-04-2024 End: 01-03-2025 CBC W Auto Differential panel - Blood COMPLETE BLOOD COUNT AND DIFFERENTIAL Lab STAT Anemia due to vitamin B12 deficiency, unspecified B12 deficiency type Expected: 10/04/2024, Expires: 01/03/2025 [facility] Comment on above: Expected: 10/04/2024, Expires: Start: 10-04-2024 End: 01-03-2025 Cobalamin (Vitamin B12) [Mass/volume] in Serum or Plasma VITAMIN B12 Lab Routine Anemia due to vitamin B12 deficiency, unspecified B12 deficiency type Expected: 10/04/2024, Expires: 01/03/2025 [facility] Work Phone: Comment on above: Expected: 10/04/2024, Expires: Start: 10-04-2024 End: 10-04-2024 ambulatory Hematology/Oncology Comment on above: ?Q2WK ARANESP/LAB&OV EARLY* ?QMO ARANESP/LAB&OV EARLY/AUTH EXP 05/09/25* Start: 10-04-2024 End: 10-04-2024 ambulatory [facility] Comment on above: (SO)CBC/FERRITIN/IRON STUDIES* 3 MO OV/LAB & INJECT ION TODAY* Start: 09-25-2024 End: 09-25-2024 Patient encounter procedure 09/25/2024 10:40 AM EDT Office Visit [facility] [address] [place] [address] Arsh Polk MD [address] [place] [address] 6 month follow up. Labs prior [facility] Comment on above: 6 month follow up. Labs prior Start: 09-24-2024 End: 12-24-2024 Basic metabolic 2000 panel - Serum or Plasma BASIC METABOLIC PANEL Lab Routine Mixed hyperlipidemia Expected: 09/24/2024, Expires: 12/24/2024 [facility] Comment on above: Expected: 09/24/2024, Expires: Start: 09-24-2024 End: 12-24-2024 Hemoglobin A1c in Blood HEMOGLOBIN A1C Lab Routine Type 2 diabetes mellitus with stage 3 chronic kidney disease, without long-term current use of insulin, 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) Expected: 09/24/2024, Expires: 12/24/2024 [facility] Comment on above: Expected: 09/24/2024, Expires: Start: 09-17-2024 Hemoglobin A1c measurement HbA1C [facility] Start: 09-04-2024 End: 09-04-2024 ambulatory [facility] Comment on above: (SO)CBC* 1 MO OV/LAB & INJECT ION TODAY* CBC/? Q2WK ARANESP* CBC/? QMO ARANESP/AU TH EXP? * CBC/? QMO ARANESP/AU TH EXP 05/09/25* Start: 09-03-2024 [facility] Start: 09-03-2024 End: 09-03-2024 [facility] Start: 08-21-2024 End: 08-21-2024 [facility] Comment on above: (SO)CBC* CBC/? Q2WK ARANESP* Start: 08-07-2024 End: 08-07-2024 ambulatory [facility] Comment on above: (SO)CBC* CBC/? Q2WK ARANESP* 1 MO OV/LAB & INJECT ION TODAY* CBC/? QMO ARANESP/AU TH EXP?* CBC/? QMO ARANESP/AU TH EXP 05/09/25* Start: 07-24-2024 End: 07-24-2024 ambulatory [facility] Comment on above: (SO)CBC* CBC/? Q2WK ARANESP* Start: 07-11-2024 Diabetic foot examination Diabetic Foot Exam [facility] Comment on above: Postponed from 06/01/2024 (Postponed - N ot Clinically Indicated) Start: 07-10-2024 End: 07-10-2024 [facility] Comment on above: (SO)CBC* CBC/? Q2WK ARANESP* 1 MO OV/LAB & INJECT ION TODAY* r/s from 06/26 Start: 06-26-2024 End: 06-26-2024 ambulatory 06/26/2024 10:45 AM [facility] Infusion Center Hematology/Oncology [address] [place] [address] Wstr, Injection [facility] [address] [place] [address] ?Q2WK ARANESP/LAB&OV EARLY* Hematology/Oncology Comment on above: ?Q2WK ARANESP/LAB&OV EARLY* Start: 06-26-2024 End: 06-26-2024 [facility] Comment on above: (SO)CBC* 1 MO OV/LAB & INJECT ION TODAY* Start: 06-12-2024 End: 06-12-2024 ambulatory [facility] Comment on above: (SO)CBC* CBC/? Q2WK ARANESP* Start: 06-02-2024 Covid-19 Vaccine () Covid-19 Vaccine () [facility] Comment on above: Postponed from 04/26/2023 (Declined at t his time) Start: 06-02-2024 Shingrix Vaccine (1 of 2) Shingrix Vaccine (1 of 2) [facility] Comment on above: Postponed from 1959 (Declined at t his time) Start: 06-01-2024 End: 06-01-2024 Patient encounter procedure 06/01/2024 2:40 PM EST Office Visit Family [facility] [address] [place] [address] Romina Flynn, DIETARY TECH.IGNITER CAPPER [address] [place] [address] follow up [facility] Afib rbr [facility] Comment on above: follow up [facility] Afib rbr Start: 06-01-2024 Diabetic foot examination Diabetic Foot Exam [facility] Start: 05-31-2024 Hepatitis B surface antibody level LDL Cholesterol [facility] Start: 05-29-2024 End: 05-29-2024 Patient encounter procedure 05/29/2024 1:40 PM EST Office Visit Family [facility] [address] [place] [address] Romina Flynn, DIETARY TECH.IGNITER CAPPER [address] [place], [place] [address] follow up [facility] Afib rbr Family [facility] Comment on above: follow up [facility] Afib rbr Start: 05-29-2024 End: 05-29-2024 [facility] Comment on above: (SO)CBC* 1 MO OV/LAB & INJECT ION TODAY* ?Q2WK ARANESP/LAB&OV EARLY* Start: 05-15-2024 End: 05-15-2024 ambulatory [facility] Comment on above: (SO)CBC* CBC/? Q2WK ARANESP* Start: 2024 Advance Directive Discussion Advance Directive Discussion [facility] Start: 2024 Medicare Advantage Annual Wellness Visit Medicare Advantage Annual Wellness Visit [facility] Start: 05-01-2024 End: 05-01-2024 [facility] Comment on above: (SO)CBC* CBC/? Q2WK ARANESP* Start: 04-26-2024 End: 04-26-2024 Patient encounter procedure 04/26/2024 10:30 AM EST Office Visit Neurology [address] [place], [place] [phone] Kaylee Herrmann PA-C [address] [place], [place] [phone] Follow up, stopped Sinemet per Dr. Otto Neurology Comment on above: Follow up, stopped Sinemet per Dr. Otto Start: 04-17-2024 End: 04-17-2024 [facility] Comment on above: (SO)CBC* CBC/? 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 Q2WK ARANESP* 1 MO OV/LAB & INJECT ION TODAY* Start: 03-28-2024 Covid-19 Vaccine ( season) Covid-19 Vaccine () [facility] Start: 03-27-2024 End: 06-26-2024 Microalbumin/Creatinine [Mass Ratio] in Urine [facility] Comment on above: Expected: 03/27/2024, Expires: Start: 03-27-2024 End: 03-27-2024 Patient encounter procedure Family Medicine [facility] Comment on above: 6 month follow up. Labs prior 3 month follow up, P arkinson's and IRINEO 3 month follow up Pa rkinson's and IRINEO, blake 8.21.24 cont Sinemet 25/100 mg TID, stay hydrated, increase physical activity Start: 03-20-2024 End: 03-20-2024 ambulatory [facility] [place] [facility] Comment on above: (SO)CBC* CBC/? Q2WK ARANESP* Start: 03-19-2024 End: 06-18-2024 CBC W Auto Differential panel - Blood COMPLETE BLOOD COUNT AND DIFFERENTIAL Lab Routine Anemia due to vitamin B12 deficiency, unspecified B12 deficiency type Anemia due to folic acid deficiency, unspecified deficiency type History of iron deficiency anemia Expected: 03/19/2024, Expires: 06/18/2024 [facility] Comment on above: Expected: 03/19/2024, Expires: Start: 03-19-2024 End: 06-18-2024 Cobalamin (Vitamin B12) [Mass/volume] in Serum or Plasma VITAMIN B12 Lab Routine Anemia due to vitamin B12 deficiency, unspecified B12 deficiency type Expected: 03/19/2024, Expires: 06/18/2024 [facility] Comment on above: Expected: 03/19/2024, Expires: Start: 03-19-2024 End: 06-18-2024 Folate [Mass/volume] in Serum or Plasma FOLATE, SERUM Lab Routine Anemia due to folic acid deficiency, unspecified deficiency type Expected: 03/19/2024, Expires: 06/18/2024 [facility] Comment on above: Expected: 03/19/2024, Expires: Start: 03-19-2024 End: 06-18-2024 Hemoglobin A1c in Blood HEMOGLOBIN A1C Lab Routine Diabetic polyneuropathy associated with type 2 diabetes mellitus (HCC) Expected: 03/19/2024, Expires: 06/18/2024 [facility] Work Phone: Comment on above: Expected: 03/19/2024, Expires: Start: 03-19-2024 End: 06-18-2024 Hepatic function 2000 panel - Serum or Plasma HEPATIC FUNCTION PNL Lab Routine Mixed hyperlipidemia Expected: 03/19/2024, Expires: 06/18/2024 [facility] Comment on above: Expected: 03/19/2024, Expires: Start: 03-19-2024 End: 06-18-2024 Iron and Iron binding capacity panel - Serum or Plasma IRON AND TIBC Lab Routine History of iron deficiency anemia Expected: 03/19/2024, Expires: 06/18/2024 [facility] Comment on above: Expected: 03/19/2024, Expires: Start: 03-19-2024 End: 06-18-2024 Lipid 1996 panel - Serum or Plasma LIPID PANEL BASIC Lab Routine Mixed hyperlipidemia Expected: 03/19/2024, Expires: 06/18/2024 [facility] Comment on above: Expected: 03/19/2024, Expires: Start: 03-12-2024 Hemoglobin A1c measurement HbA1C [facility] Start: 03-06-2024 End: 03-06-2024 ambulatory [facility] Comment on above: CBC* CBC/? Q2WK ARANESP* OV PER 02/07/24 TE/LA B & INJECTION TODAY* (SO)CBC* Start: 02-21-2024 End: 02-21-2024 ambulatory [facility] Comment on above: CBC* CBC/? Q2WK ARANESP* Start: 02-07-2024 End: 02-07-2024 ambulatory [facility] Comment on above: CBC/EPO LEVEL* CBC/EPO LEVEL/? Q2WK ARANESP* Start: 02-07-2024 End: 02-07-2024 Patient encounter procedure 02/07/2024 10:30 AM EDT Office Visit Neurology [address] [place] [address] Marlen Madrigal, DIETARY TECH.IGNITER CAPPER [address] [place] [address] IRINEO follow up Neurology Comment on above: IRINEO follow up Start: 02-02-2024 End: 02-02-2024 Patient encounter procedure 02/02/2024 4:00 PM EDT Office Visit [facility] [place] [address] [place] [address] Arsh Polk MD [address] [place], [place] [address] f/u right rib pain Family Medicine [facility] Comment on above: f/u right rib pain Start: 01-19-2024 End: 04-19-2024 Erythropoietin (EPO) [Units/volume] in Serum or Plasma ERYTHROPOIETIN/EPO Lab Routine Stage 3b chronic kidney disease (HCC) Expected: 01/19/2024, Expires: 04/19/2024 [facility] Work Phone: Comment on above: Expected: 01/19/2024, Expires: 4 Start: 01-19-2024 End: 01-19-2024 ambulatory Hematology/Oncology Comment on above: OV (LABS EARLY) OV(LABS 01/16)* Start: 01-17-2024 End: 04-17-2024 Ferritin [Mass/volume] in Serum or Plasma [facility] Comment on above: Expected: 01/17/2024, Expires: Start: 01-17-2024 End: 04-17-2024 Iron and Iron binding capacity panel - Serum or Plasma [facility] Work Phone: Comment on above: Expected: 01/17/2024, Expires: 4 Start: 01-17-2024 End: 01-17-2024 ambulatory 01/17/2024 10:30 AM EDT Results Only [facility] [address] [place] [address] CBC,CMP, IRON STUDIES [facility] Comment on above: CBC,CMP, IRON STUDIES Start: 01-09-2024 Covid-19 Vaccine ( season) Covid-19 Vaccine ( season) [facility] Start: 01-09-2024 Covid-19 Vaccine ( season) Covid-19 Vaccine () [facility] Start: 01-09-2024 Influenza vaccination Influenza Vaccine (#1) [facility] Start: 12-29-2023 End: 12-29-2023 Patient encounter procedure 12/29/2023 3:30 PM EDT Office Visit Neurology [address] [place], [place] [id number] Kaylee Herrmann PA-C [address] [place], [place] [id number] Follow up 8 wk Neurology Comment on above: Follow up 8 wk Start: 12-22-2023 End: 12-22-2023 ambulatory Hematology/Oncology Comment on above: 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 Start: 12-20-2023 End: 12-20-2023 ambulatory Hematology/Oncology Comment on above: 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 Start: 12-17-2023 End: 12-17-2023 ambulatory Hematology/Oncology Comment on above: 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 Start: 12-15-2023 End: 12-15-2023 ambulatory Hematology/Oncology Comment on above: 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 Start: 12-13-2023 End: 12-13-2023 ambulatory 12/13/2023 11:00 AM EDT Visit (SP) Office Hematology/Oncology [address] [place], [place] [id number] 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 Hematology/Oncology Comment on above: 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 Start: 11-29-2023 Hemoglobin A1c measurement HbA1C [facility] Start: 11-29-2023 End: 02-28-2024 MONOCLONAL PROT UR W/INTERP [facility] Comment on above: Expected: 11/29/2023, Expires: Start: 11-29-2023 End: 02-28-2024 MONOCLONAL PROTEIN, SERUM (BLOOD) [facility] Work Phone: Comment on above: Expected: 11/29/2023, Expires: Start: 11-29-2023 End: 02-28-2024 PROTEIN ELECTROPHORESIS SERUM W/INTERP [facility] Comment on above: Expected: 11/29/2023, Expires: Start: 11-29-2023 End: 11-29-2023 ambulatory 11/29/2023 10:30 AM EDT Visit (SP) Office Hematology/Oncology [address] [place] [id number] Yenny Bill [address] [place] [phone] SUPERVISING DEPUTY/ANEMIA/REF ARSH POLK* - PATIENT CHOICE Hematology/Oncology Comment on above: SUPERVISING DEPUTY/ANEMIA/REF ARSH POLK* - PATIENT CH OICE Start: 11-18-2023 Hepatitis B screening URINE ALBUMIN:CREATININE RATIO [facility] Start: 11-18-2023 Hepatitis B surface antibody level LDL CHOLESTEROL [facility] Start: 11-08-2023 End: 11-08-2023 Patient encounter procedure 11/08/2023 10:30 AM EDT Office Visit Neurology [address] [place] [phone] Marlen Madrigal APRN.IGNITER CAPPER [address] [place], [place] [phone] IRINEO follow up Neurology Comment on above: IRINEO follow up Start: 11-03-2023 End: 11-03-2023 ambulatory 11/03/2023 9:10 AM EDT Results Only [facility] [address] [place] [id number] Anemia, unspecified type [D64.9] [facility] Comment on above: Anemia, unspecified type [D64.9] Start: 10-20-2023 End: 10-19-2024 CBC W Auto Differential panel - Blood COMPLETE BLOOD COUNT AND DIFFERENTIAL Lab Routine Anemia, unspecified type Expected: 10/20/2023, Expires: 10/19/2024 [facility] Work Phone: Comment on above: Expected: 10/20/2023, Expires: Start: 10-20-2023 End: 10-19-2024 Cobalamin (Vitamin B12) [Mass/volume] in Serum or Plasma VITAMIN B12 Lab Routine Anemia, unspecified type Expected: 10/20/2023, Expires: 10/19/2024 [facility] Comment on above: Expected: 10/20/2023, Expires: Start: 10-20-2023 End: 10-19-2024 Ferritin [Mass/volume] in Serum or Plasma FERRITIN Lab Routine Anemia, unspecified type Expected: 10/20/2023, Expires: 10/19/2024 [facility] Comment on above: Expected: 10/20/2023, Expires: Start: 10-20-2023 End: 10-19-2024 Folate [Mass/volume] in Serum or Plasma FOLATE, SERUM Lab Routine Anemia, unspecified type Expected: 10/20/2023, Expires: 10/19/2024 [facility] Comment on above: Expected: 10/20/2023, Expires: Start: 10-20-2023 End: 10-19-2024 Hemoglobin.gastrointesti nal.lower [Presence] in Stool by Immunoassay IMMUNOCHEMICAL FECAL OCCULT BLOOD TEST Lab Routine Anemia, unspecified type Expected: 10/20/2023, Expires: 10/19/2024 [facility] Comment on above: Expected: 10/20/2023, Expires: Start: 10-20-2023 End: 10-19-2024 Iron and Iron binding capacity panel - Serum or Plasma IRON AND TIBC Lab Routine Anemia, unspecified type Expected: 10/20/2023, Expires: 10/19/2024 [facility] Comment on above: Expected: 10/20/2023, Expires: Start: 10-18-2023 End: 01-17-2024 Basic metabolic 2000 panel - Serum or Plasma BASIC METABOLIC PANEL Lab Routine Hypertensive kidney disease with stage 3 chronic kidney disease, 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) Expected: 10/18/2023, Expires: 01/17/2024 [facility] Comment on above: Expected: 10/18/2023, Expires: Start: 10-18-2023 End: 01-17-2024 CBC W Auto Differential panel - Blood COMPLETE BLOOD COUNT AND DIFFERENTIAL Lab Routine Hypertensive kidney disease with stage 3 chronic kidney disease, 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) Anemia due to vitamin B12 deficiency, unspecified B12 deficiency type Anemia due to folic acid deficiency, unspecified deficiency type History of iron deficiency anemia Expected: 10/18/2023, Expires: 01/17/2024 [facility] Comment on above: Expected: 10/18/2023, Expires: Start: 09-17-2023 End: 09-17-2023 Patient encounter procedure 09/17/2023 11:00 AM EDT Office Visit Family [facility] [place] [address] [place] [phone] Arsh Polk MD [address] [place] [address] 3 Month follow up Family Alejandro [place] Comment on above: 3 Month follow up Start: 09-16-2023 End: 12-16-2023 Hemoglobin A1c in Blood HGB A1C Lab Routine Diabetic polyneuropathy associated with type 2 diabetes mellitus (HCC) Expected: 09/16/2023, Expires: 12/16/2023 [facility] Work Phone: Comment on above: Expected: 09/16/2023, Expires: Start: 09-12-2023 Glaucoma screening Dilated Retinal Exam [facility] Start: 09-12-2023 Hepatitis C antibody, confirmatory test DILATED RETINAL EXAM [facility] Start: 09-06-2023 End: 09-06-2023 Patient encounter procedure 09/06/2023 3:20 PM EDT Office Visit Neurology [address] [place] [address] Arsh Otto Jr., MD [address] [id number] Follow up Parkinsons, IRINEO (review [facility] appt scheduled 20 min to f/u IRINEO and Parkinsons) MQ note stated allow 60 min. Neurology Comment on above: Follow up Parkinsons, IRINEO (review [facility] ap pt scheduled 20 min to f/u IRINEO and Parkinsons) MQ note stated allow 60 min. Start: 07-20-2023 Urine protein electrophoresis [facility] Start: 06-18-2023 End: 09-17-2023 Basic metabolic 2000 panel - Serum or Plasma BASIC METABOLIC PNL Lab Routine Hypertensive kidney disease with stage 3 chronic kidney disease, 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) Expected: 06/18/2023, Expires: 09/17/2023 [facility] Work Phone: Comment on above: Expected: 06/18/2023, Expires: 4 Start: 06-18-2023 End: 09-17-2023 CBC W Auto Differential panel - Blood CBC + DIFF Lab Routine Anemia due to vitamin B12 deficiency, unspecified B12 deficiency type Anemia due to folic acid deficiency, unspecified deficiency type Expected: 06/18/2023, Expires: 09/17/2023 [facility] Work Phone: Comment on above: Expected: 06/18/2023, Expires: 4 Start: 05-20-2023 Hemoglobin A1c/Hemoglobin.total in Blood HBA1C [facility] Start: 05-15-2023 3 comp foot exam completed DIABETIC FOOT EXAM [facility] Start: 01-08-2023 Covid-19 Vaccine ( season) Covid-19 Vaccine () [facility] Start: 01-08-2023 Influenza vaccination [facility] Start: 12-02-2022 Hepatitis B surface antibody level LDL CHOLESTEROL [facility] Start: 11-26-2022 End: 01-26-2023 CBC W Auto Differential panel - Blood CBC + DIFF Lab Routine Anemia due to folic acid deficiency, unspecified deficiency type Expected: 11/26/2022, Expires: 01/26/2023 [facility] Work Phone: Comment on above: Expected: 11/26/2022, Expires: 3 Start: 11-26-2022 Hemoglobin A1c/Hemoglobin.total in Blood HBA1C [facility] Start: 11-26-2022 End: 01-26-2023 Iron and Iron binding capacity panel - Serum or Plasma IRON + TIBC Lab Routine Anemia due to folic acid deficiency, unspecified deficiency type Expected: 11/26/2022, Expires: 01/26/2023 [facility] Work Phone: Comment on above: Expected: 11/26/2022, Expires: 3 Start: 11-12-2022 End: 01-12-2023 25-hydroxyvitamin D3 [Mass/volume] in Serum or Plasma VITAMIN D 25 HYDROXY Lab Routine Diabetic polyneuropathy associated with type 2 diabetes mellitus (HCC) Mixed hyperlipidemia Vitamin D deficiency Type 2 diabetes mellitus with stage 3 chronic kidney disease, without long-term current use of insulin, 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) Expected: 11/12/2022, Expires: 01/12/2023 [facility] Work Phone: Comment on above: Expected: 11/12/2022, Expires: Start: 11-12-2022 End: 01-12-2023 ALBUMIN/CREAT RATIO RND UR ALBUMIN/CREAT RATIO RND UR Lab Routine Diabetic polyneuropathy associated with type 2 diabetes mellitus (HCC) Mixed hyperlipidemia Vitamin D deficiency Type 2 diabetes mellitus with stage 3 chronic kidney disease, without long-term current use of insulin, 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) Expected: 11/12/2022, Expires: 01/12/2023 [facility] Work Phone: Comment on above: Expected: 11/12/2022, Expires: 3 Start: 11-12-2022 End: 01-12-2023 CBC W Auto Differential panel - Blood CBC + DIFF Lab Routine Diabetic polyneuropathy associated with type 2 diabetes mellitus (HCC) Mixed hyperlipidemia Vitamin D deficiency Type 2 diabetes mellitus with stage 3 chronic kidney disease, without long-term current use of insulin, 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) Expected: 11/12/2022, Expires: 01/12/2023 [facility] Work Phone: Comment on above: Expected: 11/12/2022, Expires: Start: 11-12-2022 End: 01-12-2023 Cobalamin (Vitamin B12) [Mass/volume] in Serum or Plasma VITAMIN B12 BLOOD Lab Routine Diabetic polyneuropathy associated with type 2 diabetes mellitus (HCC) Mixed hyperlipidemia Vitamin D deficiency Type 2 diabetes mellitus with stage 3 chronic kidney disease, without long-term current use of insulin, 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) Expected: 11/12/2022, Expires: 01/12/2023 [facility] Work Phone: Comment on above: Expected: 11/12/2022, Expires: Start: 11-12-2022 End: 01-12-2023 Comprehensive metabolic 2000 panel - Serum or Plasma COMP METABOLIC PANEL Lab Routine Diabetic polyneuropathy associated with type 2 diabetes mellitus (HCC) Mixed hyperlipidemia Vitamin D deficiency Type 2 diabetes mellitus with stage 3 chronic kidney disease, without long-term current use of insulin, 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) Expected: 11/12/2022, Expires: 01/12/2023 [facility] Work Phone: Comment on above: Expected: 11/12/2022, Expires: Start: 11-12-2022 End: 01-12-2023 Hemoglobin A1c in Blood HGB A1C Lab Routine Diabetic polyneuropathy associated with type 2 diabetes mellitus (HCC) Mixed hyperlipidemia Vitamin D deficiency Type 2 diabetes mellitus with stage 3 chronic kidney disease, without long-term current use of insulin, 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) Expected: 11/12/2022, Expires: 01/12/2023 [facility] Work Phone: Comment on above: Expected: 11/12/2022, Expires: Start: 11-12-2022 End: 01-12-2023 Iron and Iron binding capacity panel - Serum or Plasma IRON + TIBC Lab Routine Diabetic polyneuropathy associated with type 2 diabetes mellitus (HCC) Mixed hyperlipidemia Vitamin D deficiency Type 2 diabetes mellitus with stage 3 chronic kidney disease, without long-term current use of insulin, 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) Expected: 11/12/2022, Expires: 01/12/2023 [facility] Work Phone: Comment on above: Expected: 11/12/2022, Expires: 3 Start: 11-12-2022 End: 01-12-2023 Lipid 1996 panel - Serum or Plasma LIPID PANEL BASIC Lab Routine Diabetic polyneuropathy associated with type 2 diabetes mellitus (HCC) Mixed hyperlipidemia Vitamin D deficiency Type 2 diabetes mellitus with stage 3 chronic kidney disease, without long-term current use of insulin, 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) Expected: 11/12/2022, Expires: 01/12/2023 [facility] Work Phone: Comment on above: Expected: 11/12/2022, Expires: 3 Start: 10-28-2022 Hepatitis B screening URINE ALBUMIN:CREATININE RATIO [facility] Start: 10-28-2022 Hepatitis B surface antibody level LDL CHOLESTEROL [facility] Start: 08-26-2022 Hepatitis C antibody, confirmatory test DILATED RETINAL EXAM [facility] Start: 07-09-2022 End: 07-23-2022 Influenza virus A and B RNA and SARS-CoV-2 (COVID-19) N gene panel - Respiratory specimen by ARIANA with probe detection [facility] Work Phone: Comment on above: Expected: 07/09/2022, Expires: 3 Start: 05-29-2022 End: 07-29-2022 Basic metabolic 2000 panel - Serum or Plasma [facility] Work Phone: Comment on above: Expected: 05/29/2022, Expires: 3 Start: 05-29-2022 End: 07-29-2022 CBC W Auto Differential panel - Blood [facility] Work Phone: Comment on above: Expected: 05/29/2022, Expires: 3 Start: 05-29-2022 End: 07-29-2022 Cobalamin (Vitamin B12) [Mass/volume] in Serum or Plasma [facility] Work Phone: Comment on above: Expected: 05/29/2022, Expires: 3 Start: 05-29-2022 End: 07-29-2022 Folate [Mass/volume] in Serum or Plasma [facility] Work Phone: Comment on above: Expected: 05/29/2022, Expires: 3 Start: 05-29-2022 End: 07-29-2022 Hemoglobin A1c in Blood [facility] Work Phone: Comment on above: Expected: 05/29/2022, Expires: 3 Start: 2022 ADVANCE DIRECTIVE DISCUSSION ADVANCE DIRECTIVE DISCUSSION [facility] Start: 2022 DEPRESSION ASSESSMENT DEPRESSION ASSESSMENT [facility] Start: 2022 End: 07-10-2022 Lipid 1996 panel - Serum or Plasma LIPID PANEL BASIC Lab Routine Mixed hyperlipidemia Expected: 2022, Expires: 07/10/2022 [facility] Work Phone: Comment on above: Expected: 2022, Expires: 3 Start: 04-29-2022 Hemoglobin A1c/Hemoglobin.total in Blood HBA1C [facility] Start: 04-21-2022 Covid-19 Vaccine (5 - Moderna risk series) Covid-19 Vaccine (5 - Moderna risk series) [facility] Start: 01-30-2022 3 comp foot exam completed DIABETIC FOOT EXAM [facility] Start: 01-22-2022 Hemoglobin A1c/Hemoglobin.total in Blood HBA1C [facility] Start: 01-08-2022 Influenza vaccination INFLUENZA (#1) [facility] Start: 12-19-2021 End: 02-18-2022 Thyrotropin [Units/volume] in Serum or Plasma TSH BLD Lab Routine Fatigue, unspecified type Expected: 12/19/2021, Expires: 02/18/2022 [facility] Work Phone: Comment on above: Expected: 12/19/2021, Expires: 2 Start: 11-12-2021 Colonoscopy flx dx w/collj spec when pfrmd DIAGNOSTIC COLONOSCOPY [facility] Work Phone: Start: 11-12-2021 Patient discharge [facility] Work Phone: Start: 11-07-2021 End: 01-07-2022 CBC W Auto Differential panel - Blood CBC + DIFF Lab Routine Anemia, unspecified type Expected: 11/07/2021, Expires: 01/07/2022 [facility] Work Phone: Comment on above: Expected: 11/07/2021, Expires: 2 Start: 11-07-2021 End: 01-07-2022 Cobalamin (Vitamin B12) [Mass/volume] in Serum or Plasma VITAMIN B12 BLOOD Lab Routine Vitamin B12 deficiency Expected: 11/07/2021, Expires: 01/07/2022 [facility] Work Phone: Comment on above: Expected: 11/07/2021, Expires: 2 Start: 11-07-2021 End: 01-07-2022 Folate [Mass/volume] in Serum or Plasma FOLATE SERUM Lab Routine Anemia, unspecified type Expected: 11/07/2021, Expires: 01/07/2022 [facility] Work Phone: Comment on above: Expected: 11/07/2021, Expires: 2 Start: 11-07-2021 End: 01-07-2022 Hepatic function 2000 panel - Serum or Plasma HEPATIC FUNCTION PNL Lab Routine Mixed hyperlipidemia Expected: 11/07/2021, Expires: 01/07/2022 [facility] Work Phone: Comment on above: Expected: 11/07/2021, Expires: 2 Start: 11-07-2021 End: 01-07-2022 Iron and Iron binding capacity panel - Serum or Plasma IRON + TIBC Lab Routine Anemia, unspecified type Expected: 11/07/2021, Expires: 01/07/2022 [facility] Work Phone: Comment on above: Expected: 11/07/2021, Expires: Start: 11-04-2021 Hepatitis B surface antibody level LDL CHOLESTEROL [facility] Start: 10-24-2021 Creatinine measurement Creatinine monitoring [facility] Work Phone: Start: 10-24-2021 Potassium monitoring Potassium monitoring [facility] Work Phone: Start: 10-17-2021 Creatinine measurement Creatinine monitoring [facility] Work Phone: Start: 10-17-2021 Potassium monitoring Potassium monitoring [facility] Work Phone: Start: 10-03-2021 Creatinine measurement Creatinine monitoring [facility] Work Phone: Start: 10-03-2021 Potassium monitoring Potassium monitoring [facility] Work Phone: Start: 06-17-2021 COVID-19 VACCINE (4 - Booster for Moderna series) COVID-19 VACCINE (4 - Booster for Moderna series) [facility] Start: 06-09-2021 COVID-19 VACCINE (4 - Booster for Moderna series) COVID-19 VACCINE (4 - Booster for Moderna series) [facility] Start: 05-23-2021 Hepatitis B screening URINE ALBUMIN:CREATININE RATIO [facility] Start: 2021 ADVANCE DIRECTIVE DISCUSSION ADVANCE DIRECTIVE DISCUSSION [facility] Start: 2021 DEPRESSION ASSESSMENT DEPRESSION ASSESSMENT [facility] Start: 11-20-2020 End: 11-20-2020 Patient encounter procedure [facility] [address] Start: 10-24-2020 End: 10-24-2020 Patient encounter procedure 10/24/2020 Office Visit Cardiology Al[place] Lara, DIETARY TECH - IGNITER CAPPER [address] [place] [address] [phone] [facility] Start: 10-16-2020 End: 10-16-2020 Patient encounter procedure 10/16/2020 Appointment General Surgery Curry Shore MD [address] [place] [address] [phone] Mago Doyle MD [address] [place] [address] [phone] [facility] General Surgery Start: 09-11-2020 Annual Wellness Visit (AWV) Annual Wellness Visit (AWV) [facility] Work Phone: Start: 03-24-2018 End: 03-24-2018 Appointment Appointment [facility] Work Phone: Start: 03-24-2017 End: 03-24-2017 VOLTAGE TESTER VOLTAGE TESTER [facility] Work Phone: Start: 03-24-2017 End: 03-24-2017 Follow Up Appt 1 year Follow Up Appt 1 year [facility] Work Phone: Start: 03-24-2017 End: 03-24-2017 Appointment Appointment [facility] Work Phone: Start: 01-09-2014 End: 01-09-2014 Mri any jt lower extrem w/o contrast matrl MRI Joint Lower Extremity [facility] Work Phone: Start: 2000 Hepatitis B Vaccine (1 of 3 - Risk 3-dose series) Hepatitis B Vaccine (1 of 3 - Risk 3-dose series) [facility] Start: 2000 RSV Vaccine (1 - 1-dose 60+ series) RSV Vaccine (1 - 1-dose 60+ series) [facility] Start: 1990 Shingles Vaccine (1 of 2) Shingles Vaccine (1 of 2) [facility] Work Phone: Start: 1990 SHINGRIX VACCINE (1 of 2) SHINGRIX VACCINE (1 of 2) [facility] Start: 1959 DTaP/Tdap/Td vaccine (1 - Tdap) DTaP/Tdap/Td vaccine (1 - Tdap) [facility] Work Phone: Start: 1959 SHINGRIX VACCINE (1 of 2) SHINGRIX VACCINE (1 of 2) [facility] Start: 1959 Urine microalbumin profile DTAP,TDAP,TD (1 - Tdap) [facility] Start: 1950 Lipid panel Lipid screen [facility] Work Phone: Basic metabolic 2000 panel - Serum or Plasma Basic Metabolic Panel Lab Routine Daily until discontinued starting 10/16/2020, 2 completed [facility] Work Phone: Comment on above: Daily until discontinued starting 2020, 2 completed CBC panel - Blood by Automated count CBC Lab Routine Daily until discontinued starting 10/16/2020, 2 completed [facility] Work Phone: Comment on above: Daily until discontinued starting 2020, 2 completed Continuous pulse oximetry Pulse oximetry, continuous Respiratory Care Routine Every 4hr until discontinued starting 10/16/2020 [facility] Work Phone: Comment on above: Every 4hr until discontinued starting End: 01-09-2023 Ct abdomen & pelvis w/o contrast material CT ABD/PEL WO IVCON Radiology Routine 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) Lymphadenopathy, abdominal Localized enlarged lymph nodes 1 Occurrences starting 12/10/2021 until 01/09/2023 [facility] [employer] Work Phone: Comment on above: 1 Occurrences starting 12/10/2021 until 01/09/2023 Ct abdomen & pelvis w/o contrast material CT ABD/PEL WO IVCON Radiology Routine 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) Lymphadenopathy, abdominal Localized enlarged lymph nodes 12/11/2021 11:48 AM EDT [facility] [employer] Work Phone: End: 12-23-2025 CT Head WO contrast CT BRAIN WO IVCON Radiology Routine Subdural hematoma, chronic (HCC) 1 Occurrences starting 11/23/2024 until 12/23/2025 [facility] [employer] Work Phone: Comment on above: 1 Occurrences starting 11/23/2024 until 12/23/2025 End: 10-03-2020 CTA CHEST ABDOMEN PELVIS W CONTRAST CTA CHEST ABDOMEN PELVIS W CONTRAST Imaging Routine Aortic valve stenosis, etiology of cardiac valve disease unspecified 1 Occurrences starting 10/03/2020 until 10/03/2020 [facility] Work Phone: Comment on above: 1 Occurrences starting 10/03/2020 until 10/03/2020 CTA CHEST ABDOMEN PE LVIS W CONTRAST CTA CHEST ABDOMEN PELVIS W CONTRAST Imaging Routine Aortic valve stenosis, etiology of cardiac valve disease unspecified 10/03/2020 1:36 PM EDT [facility] Work Phone: ECHO Complete 2D W Doppler W Color ECHO Complete 2D W Doppler W Color Echocardiography Routine 10/17/2020 3:06 PM EDT [facility] Work Phone: EKG 12 lead [facility] Work Phone: Comment on above: Daily until discontinued starting 2020, 2 completed End: 11-07-2022 HOME SLEEP APNEA TEST (HSAT) HOME SLEEP APNEA TEST (HSAT) Procedures Routine IRINEO (obstructive sleep apnea) 1 Occurrences starting 11/07/2021 until 11/07/2022 [facility] Work Phone: Comment on above: 1 Occurrences starting 11/07/2021 until 11/07/2022 Measurement of monoclonal protein concentration [facility] End: 11-19-2025 MR Brain WO contrast MRI BRAIN WO IVCON Radiology Routine Parkinson's disease, unspecified whether dyskinesia present, unspecified whether manifestations fluctuate (HCC) Abnormality of gait Altered mental status, unspecified altered mental status type 1 Occurrences starting 10/20/2024 until 11/19/2025 [facility] Work Phone: Comment on above: 1 Occurrences starting 10/20/2024 until 11/19/2025 End: 04-26-2025 MR Lumbar spine WO contrast MRI LUMBAR SPINE WO IVCON Radiology Routine Spinal stenosis of lumbar region with neurogenic claudication 1 Occurrences starting 03/27/2024 until 04/26/2025 [facility] Work Phone: Comment on above: 1 Occurrences starting 03/27/2024 until 04/26/2025 End: 04-26-2025 MR Shoulder - left WO contrast MRI SHOULDER WO IVCON LEFT Radiology Routine Acute pain of left shoulder due to trauma 1 Occurrences starting 03/27/2024 until 04/26/2025 [facility] Comment on above: 1 Occurrences starting 03/27/2024 until 04/26/2025 End: 02-25-2024 Mri brain brain stem w/o contrast material MRI BRAIN WO IVCON Radiology Routine Other symptoms and signs involving the nervous system 1 Occurrences starting 01/26/2023 until 02/25/2024 [facility] Work Phone: Comment on above: 1 Occurrences starting 01/26/2023 until 02/25/2024 Oxygen therapy [[facility] Data Set] Initiate Oxygen Therapy Protocol Respiratory Care Routine Daily until discontinued starting 10/16/2020 [employer] Work Phone: Comment on above: Daily until discontinued starting 2020 End: 02-19-2023 PAP TITRATION PSG (CPAP, BIPAP, ASV) PAP TITRATION PSG (CPAP, BIPAP, ASV) Procedures Routine IRINEO (obstructive sleep apnea) 1 Occurrences starting 01/20/2022 until 02/19/2023 [facility] Work Phone: Comment on above: 1 Occurrences starting 01/20/2022 until 02/19/2023 End: 06-28-2023 PAP TITRATION PSG (CPAP, BIPAP, ASV) PAP TITRATION PSG (CPAP, BIPAP, ASV) Procedures Routine IRINEO (obstructive sleep apnea) 1 Occurrences starting 05/29/2022 until 06/28/2023 [facility] Work Phone: Comment on above: 1 Occurrences starting 05/29/2022 until 06/28/2023 Patient Education ED Chest Pain, Uncertain Cause [facility] Work Phone: Patient referral [facility] Work Phone: End: 10-03-2020 PREPARE RBC (CROSSMATCH), 2 Units PREPARE RBC (CROSSMATCH), 2 Units Blood Bank Routine Aortic valve stenosis, etiology of cardiac valve disease unspecified 1 Occurrences starting 10/03/2020 until 10/03/2020 [employer] [facility] [employer] Work Phone: Comment on above: 1 Occurrences starting 10/03/2020 until 10/03/2020 PREPARE RBC (CROSSMATCH), 2 Units PREPARE RBC (CROSSMATCH), 2 Units Blood Bank Routine Aortic valve stenosis, etiology of cardiac valve disease unspecified 10/03/2020 1:41 PM EDT [facility] Work Phone: Spirometry panel Incentive raymundo metry Respiratory Care Routine Every 2hr while awake until discontinued starting 10/16/2020 [facility] Work Phone: Comment on above: Every 2hr while awake until discontinued starting 10/16/2020 End: 12-18-2025 XR Shoulder - left 3 Views XR SHOULDER GENERAL 3V OR MORE AP/TRUE AP/OTHER LEFT Radiology Routine Acute pain of left shoulder 1 Occurrences starting 03/27/2024 until 04/26/2025 [facility] Work Phone: Comment on above: 1 Occurrences starting 03/27/2024 until 04/26/2025 XR Shoulder - left 3 Views XR SHOULDER GENERAL 3V OR MORE AP/TRUE AP/OTHER LEFT Radiology Routine Acute pain of left shoulder 03/27/2024 11:08 AM EST [facility] Immunizations Immunization Date Immunization Notes Care Provider Fa [facility] 02-01-2024 Covid (Spikevax) Dr. Arsh Polk MD Work Phone: [facility] 02-01-2024 influenza, high dose seasonal, preservative-free Romina Flynn DIETARY TECH.IGNITER CAPPER Work Phone: [facility] 02-01-2024 influenza virus vacc ine, unspecified formulation Ct (I-Stat) Work Phone: [facility] 03-01-2023 influenza (HD-IIV4) vaccine, age 65+ yr, high dose, quadrivalent, PF (FLUZONE HIGH-DOSE) Arsh Polk MD Work Phone: [facility] 03-01-2023 respiratory syncytia l virus (RSV) vaccine, bivalent (ABRYSVO) Arsh Polk MD Work Phone: [facility] 03-01-2023 influenza virus vacc ine, unspecified formulation Marlen Madrigal DIETARY TECH.IGNITER CAPPER Work Phone: [facility] 11-26-2022 tetanus toxoid, redu kavon diphtheria toxoid, and acellular pertussis vaccine, adsorbed Arsh Polk MD Work Phone: [facility] 01-21-2022 influenza, high-dose , quadrivalent vaccine (FLUZONE HIGH DOSE QUADRIVALENT) Arsh Polk MD Work Phone: [facility] 01-21-2022 influenza virus vacc ine, unspecified formulation Kaylee Herrmann PA-C Work Phone: [facility] 01-30-2021 influenza, high-dose , quadrivalent vaccine (FLUZONE HIGH DOSE QUADRIVALENT) Arsh Polk MD Work Phone: [facility] 07-03-2020 COVID-19 vaccine, fu ll dose (MODERNA) Arsh Polk MD Work Phone: [facility] 06-05-2020 COVID-19 vaccine, fu ll dose (MODERNA) Arsh Polk MD Work Phone: [facility] 02-01-2020 influenza, high-dose , quadrivalent vaccine (FLUZONE HIGH DOSE QUADRIVALENT) Arsh Pokl MD Work Phone: [facility] 05-11-2019 influenza, high dose seasonal, preservative-free Arsh Polk MD Work Phone: [facility] 02-14-2018 influenza, high dose seasonal, preservative-free Arsh Polk MD Work Phone: [facility] Work Phone: 02-25-2017 influenza, high dose seasonal, preservative-free Arsh Polk MD Work Phone: [facility] 02-20-2016 influenza, high dose seasonal, preservative-free Arsh Polk MD Work Phone: [facility] 03-07-2015 influenza, high dose seasonal, preservative-free Arsh Polk MD Work Phone: [facility] 01-03-2015 pneumococcal conjuga te vaccine, 13 valent Arsh Polk MD Work Phone: [facility] 02-01-2014 influenza, high dose seasonal, preservative-free Arsh Polk MD Work Phone: [facility] Work Phone: 02-28-2013 influenza virus vacc ine, unspecified formulation Arsh Polk MD Work Phone: [facility] 2007 pneumococcal polysaccharide vaccine, 23 valent Arsh Polk MD Work Phone: [facility] Work Phone: 08-01-2004 pneumococcal polysaccharide vaccine, 23 valalecia Polk MD Work Phone: [facility] Work Phone: Payers Date Payer Category Payer Medicare (Managed Care) MMO MEDADVANTAGE HMO [id number] 2024 Self-pay [id number] 2023 Unknown [id number] 2019 Unknown MMO MMO MEDICARE SUPPLEMENT [id number] 2019-Present [phone] [place] [id number] Indemnity [id number] 2019 Unknown MMO MMO MEDICARE SUPPLEMENT [id number] 2019-Present [phone] [place] [id number] Indemnity [id number] 2018 Unknown [id number] 2005 Medicare MEDICARE MEDICAR E A AND B [id number] 2005-Present [phone] [address] [address] [place] [address] Medicare [id number] 2005 Medicare [id number] 2005 Medicare [id number] Unknown [id number] Unknown [id number] 462 Unknown [id number]. 462 Unknown [id number]. 462 Unknown [id number]. 462 Unknown [id number]. 462 Unknown [id number]. 462 Unknown [id number]. 462 Unknown [id number]. 462 Unknown [id number]. 462 Unknown [id number]. 462 Unknown [id number]. 462 Unknown [id number]. 462 Unknown [id number]. 462 Unknown [id number] 462 Unknown [id number] 462 Social History Date Type Detail Facility Start: 10-03-2020 End: 11-23-2022 Tobacco smoking status NHIS Former smoker [facility] Start: 10-03-2020 End: 11-23-2022 Tobacco use and exposure Never used [facility] Work Phone: Start: 10-03-2020 End: 12-26-2024 Alcohol intake Lifetime non-drinker (finding) [facility] Phone: Start: 11-20-2019 End: 09-11-2020 History SDOH Alcohol Frequency 1 [employer] Phone: Start: 1940 Sex Assigned At Not on file [facility] Phone: Start: 10-08-2020 End: 02-25-2022 Exposure to SARS-CoV-2 (event) Not sure [facility] End: 11-27-2003 History of tobacco use Current smoker [facility] End: 11-27-2003 History of tobacco use Cigar Smoker [facility] Start: 07-30-2021 End: 11-28-2024 Alcohol intake Current non-drinker of alcohol (finding) [facility] Start: 11-20-2019 History SDOH Alcohol Std Drinks 98 [facility] Start: 11-20-2019 History SDOH Social Connections Phone 2 [facility] Start: 11-20-2019 History SDOH Social Connections Living 3 [facility] Start: 11-20-2019 History SDOH Financial 5 [facility] Start: 09-05-2015 End: 01-21-2022 Tobacco Comment cigars-6 a day [facility] Start: 10-13-2021 End: 11-17-2022 Tobacco smoking status PRIS Unknown if ever smoked [facility] Start: 01-22-2020 None [facility] Start: 01-22-2020 Spouse/ Significant Other [facility] Start: 01-22-2020 Cigars [facility] Start: 1940 Sex Assigned At Male [facility] Start: 11-20-2019 End: 02-02-2024 History of Social function [facility] Start: 11-20-2019 End: 02-02-2024 Social connection and isolation panel [facility] Start: 04-10-2012 How often do you attend catholic or presybeterian services? Patient refused [facility] Do you belong to any clubs or organizations such as catholic groups, unions, fraternal or athletic groups, or school groups? No [facility] Are you now , , , , never or living with a partner? [facility] How often to you hav e a drink containing alcohol? Never [facility] Do you feel stress - tense, restless, nervous, or anxious, or unable to sleep at night because your mind is troubled all the time - these days [OSQ] Only a little [facility] (I/We) worried [facility] (my/our) food would run out before (I/we) got money to buy more. Never true [facility] Medical Equipment Procedure Code Equipment Code Equipment Origin al Text Equipment Identifier Dates Stent Inlay Opti ma 6fr Taper [place] Green Polymer Phreecoat 26cm [facility] - [id number] Start: 09-10-2015 [id number], [id number] Start: 07-22-2006 Comment on above: Test blood sugar(s) 1 times daily. Dx: Type 1 DM - Controlled E10.9 Insulin: No USE DIRECTED Suarez Tona 3 transcatheter heart valve FDA Start: 10-16-2020 Suarez Tona 3 transcatheter heart valve FDA Start: 10-16-2020 Suarez Tona 3 transcatheter heart valve FDA Start: 10-16-2020 Suarez Tona 3 transcatheter heart valve FDA Start: 10-16-2020 Suarez Tona 3 transcatheter heart valve FDA Start: 10-16-2020 Suarez Tona 3 transcatheter heart valve FDA Start: 10-16-2020 Suarez Tona 3 transcatheter heart valve FDA Start: 10-16-2020 Suarez Tona 3 transcatheter heart valve FDA Start: 10-16-2020 Suarez Tona 3 transcatheter heart valve FDA Start: 10-16-2020 Suaerz Tona 3 transcatheter heart valve FDA Start: 10-16-2020 Suarez Tona 3 transcatheter heart valve FDA Start: 10-16-2020 Goals Date Patient Goal Desired Activity /State Functional Status Date Assessment Result Facility 12-26-2024 Total score [AUDIT-C] 0 12/27/19 9:47 AM EDT Andi Moreland MA [facility] 06-04-2014 Are you deaf, or do you have serious difficulty hearing No 06/04/2014 8:08 AM Leatha Fleming LPN No [facility] 06-04-2014 Are you blind, or do you have serious difficulty seeing, even when wearing glasses No 06/04/2014 8:08 AM Leatha Fleming LPN No [facility] 06-04-2014 Do you have serious difficulty walking or climbing stairs No 06/04/2014 8:08 AM Leatha Fleming LPN No [facility] 06-04-2014 Do you have difficul ty dressing or bathing No 06/04/2014 8:08 AM Leatha Fleming LPN No [facility] 06-04-2014 Because of a physica l, mental, or emotional condition, do you have difficulty doing errands alone such as visiting a physician's office or shopping No 06/04/2014 8:08 AM Leatha Fleming LPN No [facility] c Mental Status Date Assessment Result Facility 09-03-2024 Cognitive function Voice/Name [facility] Work Phone: 11-12-2021 Cognitive function Voice/Name [facility] Work Phone: 06-04-2014 Because of a physica l, mental, or emotional condition, do you have serious difficulty concentrating, remembering, or making decisions No 06/04/2014 8:08 AM Leatha Fleming LPN No [facility] Clinical Notes 08-19-2015 to 02-26-2025 Telephone Encounter - Marline Roach MA - 01/15/2025 5:05 PM EDTTelephone Encounter - Marline Roach MA - 01/15/2025 5:05 PM EDTTelephone Encounter - Romina Flynn APRN.IGNITER CAPPER - 01/15/2025 4:57 PM EDT Note Date & Type Note [facility] 02-26-2025 Note HNO ID: [id number] Author: DELMA TOBIAS LPN Service: ? Author Type: Licensed Nurse Type: Progress Notes Filed: 02/26/2025 14:02 Note Text: Aranesp injection deferred, treatment parameter not met, hgb 11.3 Delma Tobias LPN [facility] 02-26-2025 Note [facility] 01-30-2025 Note [facility] 01-24-2025 Note HNO ID: [id number] Author: DELMA TOBIAS LPN Service: ? Author Type: Licensed Nurse Type: Progress Notes Filed: 01/24/2025 16:20 Note Text: Patient here for injection of Aranesp. Given SQ in right arm. Patient tolerated well. Delma Tobias LPN [facility] 01-15-2025 Telephone encounter Note Order faxed to [facility] [facility] 01-15-2025 Miscellaneous Notes Order faxed to [employer] Not sure what they carry. Order written for DME lift assist. Patient last visit with Dr Polk on 01/03/25 for Medicare wellness exam. Has some mention of falls/balance issues. documented in this encounter [facility] 01-15-2025 Telephone encounter Note Not sure what they carry. Order written for DME lift assist. [facility] 01-15-2025 Telephone encounter Note Patient last visit with Dr Polk on 01/03/25 for Medicare wellness exam. Has some mention of falls/balance issues. [facility] 01-12-2025 Telephone encounter Note Prescription Refill Information The patient has been identified by name and date of : Yes Caregiver verified no other encounters exist for this prescription request: Yes Caregiver confirmed with patient/requestor that no other refills are due, in the near future, with this provider at this time: Yes The last office visit in the department: 10/20/24 with BRIONNA Does the patient have a future office visit with this provider/department: Yes- 01/30/25 with MQ for ne issue and concerns and has 6 month follow up then for 07/16/25 with WANGEL Requested Prescriptions Pending Prescriptions Disp Refills carbidopa-levodopa (SINEMET 25-100) 25-100 mg per tablet [Pharmacy Med Name: Carbidopa-Levodopa Oral Tablet 25-100 MG] 90 tablet 0 Sig: Take 1 tablet by mouth at 7AM, Noon and 5PM. Deborah Sykes LPN January 12, 2025 2:15 PM [facility] 01-12-2025 Miscellaneous Notes Prescription Refill Information The patient has been identified by name and date of : Yes Caregiver verified no other encounters exist for this prescription request: Yes Caregiver confirmed with patient/requestor that no other refills are due, in the near future, with this provider at this time: Yes The last office visit in the department: 10/20/24 with BRIONNA Does the patient have a future office visit with this provider/department: Yes- 01/30/25 with MQ for ne issue and concerns and has 6 month follow up then for 07/16/25 with WPaulineN Requested Prescriptions Pending Prescriptions Disp Refills carbidopa-levodopa (SINEMET 25-100) 25-100 mg per tablet [Pharmacy Med Name: Carbidopa-Levodopa Oral Tablet 25-100 MG] 90 tablet 0 Sig: Take 1 tablet by mouth at 7AM, Noon and 5PM. Deborah Sykes LPN January 12, 2025 2:15 PM documented in this encounter [facility] 01-03-2025 Instructions Arsh Polk MD - 01/03/2025 3:32 PM EDT - Labs ordered for six months from now: hemoglobin A1c, comprehensive metabolic panel (kidney and liver tests), and lipid panel - Ophthalmology consult placed for a second opinion on your vision loss--please schedule this appointment when contacted - Continue home health physical therapy visits twice weekly as arranged - Keep your podiatry follow-up with Dr. Spaulding in two weeks to monitor the sore on your heel - Deink Ensure (or a similar nutrition supplement) if you have a poor appetite to help maintain protein and calories - Apply a moisturizing cream to your arms daily and wear long sleeves to protect your skin from tearing or bruising - Plan to get a flu shot this fall and a COVID-19 vaccine when it becomes available - Return for your next exam in six months documented in this encounter [facility] 01-03-2025 Note [facility] 01-03-2025 History of Presen t illness Narrative Images from the original note were not included. Axel Serrano is a 84 year old male here for a Medicare wellness visit. Medicare Health Risk Assessment General Health Don Exercise: Minutes/Day 45 minutes Exercise: Days/Week twice Alcohol: Daily Use Never Alcohol: Drinks/Day Patient does not drink Alcohol: 6 or more drinks Never Feel off balance yes Concerns: Teeth/Dentures fair Concerns: Sexual function No Troubled by feelings No Frequency: Eating healthy diet Doing better ADLs requiring help No driving, needs help with bathing and dressing. Safety precautions in home/vehicle Yes. Smoke, vape, chews tobacco no Difficulty hearing bad Difficulty seeing glasses Current Providers Specialists: I have reviewed specialist-related care of the patient in the medical record. Current care team: Patient Care Team: Arsh Polk MD as PCP - General (Family Medicine) Lexi Winkler, ALTAGRACIA.IGNITER CAPPER as Finisher [employer] (Family Medicine) Romina Flynn APRN.BRIAN as [employer] (Family Medicine) Dr Spaulding, podiatry. Dr Otto, neurology Yeyo Bailey, neurosurgery [facility], cardiology. Dr Head, optometry. Dr Laboy nephrology Yenny Bill, hematology Medical/Family history review Reviewed and updated problem list, medical/surgical/family/social history, medications, and allergies. Opioid use review Opioid Medications (last 90 days) No data to display Anxiety/Depression screening Being treated. Recommendation: no further intervention at this time Cognitive screening Cognitive screening reviewed and Patient has known cognitive impairment. Functional Observation Was the patient's Timed Up & Go test unsteady or >= 12 seconds? Yes Advance Care Planning Surrogate decision maker and/or advance care plan documented Measurements BP 126/86 Pulse 81 Wt 118.4 kg (261 lb) SpO2 97% BMI 37.45 kg/m Vision Screening: Follows with optometry/ophthalmology ADDITIONAL INFO: Annual Wellness Exam: - Axel Pacheco Yue describes general health as "don." - Physical therapy sessions twice weekly, lasting approximately 45 minutes each. - Axel denies alcohol consumption. - Axel reports feeling off balance; uses a walker at home and occasionally a wheelchair. - One recent fall described as a "controlled sit" while attempting to get into a van. - No concerns with teeth or dentures; Axel has two dentures. - Axel denies concerns with sexual functioning. - Axel denies being troubled by feelings. - Axel reports eating a healthy diet, including fruits, vegetables, oats for breakfast, and orange juice. - Decreased appetite; Axel lost approximately 50 lbs since onset of health problems, with 19 lbs lost since August. - Axel requires assistance with dressing and bathing. - Axel uses seatbelts in the car. - Axel denies tobacco use. - Axel reports hearing is "bad"; does not wear hearing aids. - Axel wears glasses; lost 60% of vision in one eye and some vision in the other eye; struggles to read the paper. Parkinson's Disease: - Managed with Sinemet and gabapentin. - Axel reports tremor is slightly worse. Aortic Stenosis: - Managed by cardiology. - Axel denies chest pain or dyspnea. TIA: - Remote history. Diabetes: - Managed with Januvia and metformin. - Axel does not check blood sugars at home. Depression: - Managed with sertraline. ROS: Constitutional: (+) weight loss, (+) decreased appetite Eyes: (+) vision loss Ears/Nose/Mouth/Throat: (+) hearing loss, (+) difficulty chewing, (+) left-sided oral leakage, (-) sore throat Cardiovascular: (-) chest pain, (-) peripheral edema Respiratory: (-) shortness of breath, (-) cough, (-) wheeze Gastrointestinal: (-) abdominal pain, (-) bowel changes, (-) melena Genitourinary: (-) dysuria Musculoskeletal: (+) falls Skin: (+) heel sore Neurological: (+) imbalance, (+) resting tremor, (-) confusion Psychiatric: (+) depressed mood PE: GENERAL: NAD, alert and oriented. SKIN: Unremarkable, no rash or skin lesions. HEAD: Normocephalic. EYES: PERRLA, EOMI, conjunctiva clear. EARS: External ears normal, canals clear, TM's normal. NOSE/SINUSES: Nares normal. Septum midline. OROPHARYNX: Lips, mucosa, and tongue normal, good dentition. No oral lesions noted. NECK: Supple, no lymphadenopathy, normal thyroid, no carotid bruits. LUNGS: Clear to auscultation bilaterally, no wheezes/rhonchi/rales. HEART: Regular rate and rhythm, no murmurs. No ectopy. EXTREMITIES: Normal, no deformities, no skin discoloration, no edema. NEURO: Awake, alert and oriented x3, cranial nerves II-XII grossly intact, normal gait, no involuntary motions. Assessment and Plan: 1. Medicare annual wellness visit, subsequent (Z00.00) - Completed Medicare annual wellness visit; no additional concerns requiring separate billing addressed. - Discussed importance of flu and COVID vaccinations; advised to obtain flu shot in the fall and COVID vaccine when available. - Follow-up in 6 months. 2. 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 1 through stage 4 chronic kidney disease, or unspecified chronic kidney disease (HCC) (I13.0) 3. Essential hypertension, benign (I10) 4. Aortic valve stenosis, etiology of cardiac valve disease unspecified (I35.0) 5. Coronary artery disease involving [place] coronary artery of [place] heart without angina pectoris (I25.10) - Blood pressure today 126/86 after sitting; no chest pain or shortness of breath. - Continue current management. 6. 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 per neurology 7. 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 8. Obesity, Class II, BMI 35-39.9 (E66.812) - Weight loss of approximately 19 lbs since August; previously weighed 305 lbs, now 261 lbs. - Encourage adequate protein intake to support healing; advised to continue Ensure. 9. Tremor, essential (G25.0) 10. Parkinson's disease, unspecified whether dyskinesia present, unspecified whether manifestations fluctuate (HCC) (G20.A1) - Tremor slightly worse; continue Sinemet and gabapentin. 11. 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 12. Diabetic polyneuropathy associated with type 2 diabetes mellitus (HCC) (E11.42) 13. Type 2 diabetes mellitus with stage 3 chronic kidney disease, without long-term current use of insulin, 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) (E11.22) - Most recent A1c 7.3. - Continue Januvia and metformin. 14. Mixed hyperlipidemia (E78.2) - Last checked 03/20: total cholesterol 119, HDL 36, LDL 56. - Continue current management. - Ordered cholesterol panel for 6 months from now. 15. IRINEO (obstructive sleep apnea) (G47.33) - CPAP discontinued per Dr. Otto. 16. Anemia due to folic acid deficiency, unspecified deficiency type (D52.9) 17. Anemia due to vitamin B12 deficiency, unspecified B12 deficiency type (D51.9) 18. 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 - Continue iron and folate supplementation. 20. Stage 3 chronic kidney disease, 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) (N18.30) - Most recent GFR 33, creatinine 1.96, BUN 36; stable. - Continue management with Dr. Laboy, nephrology. 21. Anxiety with depression (F41.8) - On sertraline; discussed option to increase dose to 75 mg, but patient declined. - Continue current dose; will consider adjustment if symptoms worsen. 22. History of TIA (transient ischemic attack) (Z86.73) - stable 23. Vision loss (H54.7) - Loss of 60% vision in one eye; difficulty reading. - wants to see ophthalmology for second opinion. 24. Non healing left heel wound (S91.302A) - Being monitored by Dr. Spaulding, diesel mechanic apprentice; follow-up in a couple of weeks. Arsh Polk MD Recording using [employer] software for draft documentation of the visit was discussed with the patient/authorized contact center representative; all questions welcomed and answered. Patient/authorized contact center representative agreed to proceed documented in this encounter [facility] 12-28-2024 Telephone encounter Note noted [facility] 12-28-2024 Miscellaneous Notes noted Yun [facility] called in and reports she did her evaluation on the Pt today and they are going to be seeing the Pt once a week for 4 more weeks. She states they will be seeing him for wound care and medication changes. She reports he still has open wounds on his buttocks they are dressing, and treating his lower legs for fungal infection, then they are applying a mepilex to his L heel for a pressure wound. She states the Pt sees Dr Spaulding in a week and she told the Pt to update her on his L heel, so they can make sure she can look at it at his appointment. She states she thinks it may need debridement. The Pt's HR has been running in the 40s and he had been drowsy. [facility] heart group decreased his Metoprolol from 50 mg BID to 25 mg BID. When the Pt was in to see Hematology on 12/26/24 Yenny Bill NP discontinued the Metoprolol. Yun report the Pt had a fall getting into his car before he made it to his Hematology appointment. She states she thinks it was partially due to him being so drowsy/weak and part his Parkinson's. She states Pt has no injuries and did not hit his head. PT has told them they may need to get a chair, because they park a ways away from the house and then he can sit partway to the car. She states after stopping the Metoprolol PT had his HR up to 64-70. Yun said after he had rested after PT his HR was 59. She states he is a lot more alert. Yun reports she doesn't need a call back unless any new orders. Sumit Carlson RN documented in this encounter [facility] 12-27-2024 Telephone encounter Note Yun [facility] called in and reports she did her evaluation on the Pt today and they are going to be seeing the Pt once a week for 4 more weeks. She states they will be seeing him for wound care and medication changes. She reports he still has open wounds on his buttocks they are dressing, and treating his lower legs for fungal infection, then they are applying a mepilex to his L heel for a pressure wound. She states the Pt sees Dr Spaulding in a week and she told the Pt to update her on his L heel, so they can make sure she can look at it at his appointment. She states she thinks it may need debridement. The Pt's HR has been running in the 40s and he had been drowsy. [facility] heart group decreased his Metoprolol from 50 mg BID to 25 mg BID. When the Pt was in to see Hematology on 12/26/24 Yenny Bill SUPERVISING DEPUTY discontinued the Metoprolol. Yun report the Pt had a fall getting into his car before he made it to his Hematology appointment. She states she thinks it was partially due to him being so drowsy/weak and part his Parkinson's. She states Pt has no injuries and did not hit his head. PT has told them they may need to get a chair, because they park a ways away from the house and then he can sit partway to the car. She states after stopping the Metoprolol PT had his HR up to 64-70. Yun said after he had rested after PT his HR was 59. She states he is a lot more alert. Yun reports she doesn't need a call back unless any new orders. Sumit Carlson, RN [facility] 12-26-2024 Note HNO ID: [id number] Author: MARAL BRUSH LPN Service: ? Author Type: Licensed Nurse Type: Progress Notes Filed: 12/26/2024 09:48 Note Text: Injection deferred, parameters not met HGB 10.2 Maral Brush LPN [facility] 12-26-2024 History of Presen t illness Narrative Injection deferred, parameters not met HGB 10.2 Maral Brush LPN documented in this encounter [facility] 12-26-2024 Note [facility] 12-26-2024 History of Presen t illness Narrative Progress Note Axel Pacheco Yue 1940 Encounter date: 12/26/2024 HPI: Axel Serrano is a 84 year old gentleman with PMHx o T2DM, Parkinson's, HTN, HLD, aortic stenosis, CKD, IRINEO, TIA, anemia, and 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 Winn records in care everywhere), presenting as referral from his PCP, Dr. Polk for further anemia workup. Hgb has been gradually decreasing over the last year or so. Thorough workup for anemia completed. Folate deficiency corrected. No iron or b12 deficiency. Denies new aches or pains today. Chronic back pain stable. Some R side rib pain s/p fall in shower into toilet resulting in rib fx >10 years ago. Denies new lumps or bumps. No SOB, CP, or palpitations. No DOVER, dizziness, or changes in vision. Denies N/V/C/D. No changes in bowel or bladder habits. No hematuria, hematochezia, occult stool negative. No rash or skin changes. Denies recent bleeding or bruising. Hx of blood tx during clinical trial. No IV iron. Denies unintentional weight loss. 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 Some chemical exposure to round up (household use). BM bx in the past at [facility] while undergoing treatment for DLBCL. Denies know family hx of cancer or blood disorders. Last scope [address] Cano, declines additional. Recent fall, tripped on floor mat walking into a restaurant. Fractured humerus well healed Recent hospitalization for confusion Apr 27 - May 19. Feels better today. Spouse notes he has good days and bad. Changes made to parkinsons medications during admission. Seem to be helping. Has a few scrapes and skin tears that are healing. No other bleeding. They have home health coming 2x daily at the moment. Interval Hx: Mr. Serrano presents today with his spouse. Several recent falls. States he feels like his legs just give out on him. Currently following with neuro for concern for subdural hematoma s/p prior fall. No acute concerns on imaging. Reports that he feels off today. Did not eat breakfast prior to OV. Was given crackers and ensure in office, which helped. Also HR and BP low. He did take his metroprolol this morning. Advised to hold evening dose. Recommend discontinuing with continuously low BP and HR. He is symptomatic. Has follow up with PCP next week. Discussed with spouse if symptoms worsen or he is not feeling any better to present to ED. Pt and spouse acknowledged Discussed labs stable from a hematology perspective. No rash or skin changes. Denies bleeding or bruising. Spending >50% day in recliner. 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 folic acid 1 mg tablet Take 1 mg by mouth once daily. zinc oxide-white petrolatum (BILL MOIST BARRIER-ZINC) 10-78 % crea Apply to affected area three times a day as needed (to buttock). 99 g 2 atorvastatin (LIPITOR) 40 mg tablet Take 1 tablet by mouth daily at bedtime. For cholesterol. 90 tablet 3 gabapentin (NEURONTIN) 300 mg capsule Take 1 capsule by mouth two times a day. 60 capsule 11 terbinafine HCl (LAMISIL) 1 % cream Apply to affected area two times a day. 4 GM each leg 2 x day 56.8 g 1 aspirin, enteric coated (ASPIRIN, ENTERIC COATED) 81 mg EC tablet Take 81 mg by mouth once daily. carbidopa-levodopa (SINEMET) 25-100 mg per tablet Take 1 tablet at 7AM, Noon and 5PM. 90 tablet 2 sertraline (ZOLOFT) 50 mg tablet Take 1 tablet by mouth once daily. 90 tablet 3 LORazepam (ATIVAN) 0.5 mg Take 0.5 mg by mouth every 4 hours as needed. metFORMIN ER (GLUCOPHAGE XR) 500 mg 24 hr tablet Take 1 tablet by mouth two times a day before meals. 180 tablet 3 rivastigmine tartrate (EXELON) 1.5 mg capsule TAKE 1 CAPSULE BY MOUTH 2 TIMES A DAY WITH MEALS 135 capsule 3 SITagliptin phosphate (JANUVIA) 50 mg tablet Take 1 tablet by mouth once daily. 90 tablet 3 tamsulosin (FLOMAX) 0.4 mg Take 2 capsules by mouth once daily. 180 capsule 3 furosemide (LASIX) 40 mg tablet Take 40 mg by mouth once daily. cyanocobalamin (VITAMIN B-12) 1,000 mcg tab Take 1 tablet by mouth once daily. 30 tablet 11 ferrous gluconate 256 mg (28 mg iron) tab Take 1 tablet by mouth two times a day. 180 tablet 1 blood sugar diagnostic (BLOOD GLUCOSE TEST) test strip Test blood sugar(s) 1 times daily. Dx: Type 1 DM - Controlled E10.9 Insulin: No 50 Strip 11 LANCETS USE DIRECTED 100 0 No current facility-administered medications for this visit. ALLERGIES Allergen Reactions Mai Inhibitors Other: See Comments Hyperkalemia Atorvastatin Myalgia Pravastatin Myalgia [id number]-Btj Red* Myalgia FAMILY HISTORY Problem Relation Age of Onset Coronary Artery Disease Mother Coronary Artery Disease Father Coronary Artery Disease Brother Heart disease Brother Heart disease Maternal Grandmother Heart disease Maternal Grandfather Heart disease Paternal Grandmother Heart disease Paternal Grandfather Social History Tobacco Use Smoking status: Former Types: Cigars Smokeless tobacco: Never Tobacco comments: cigars-6 a day Vaping Use Vaping status: Never Used Substance Use Topics Alcohol use: Never Drug use: No Review of Systems: Negative except as noted in HPI reviewed 12/26/2024 Physical Exam: BP 94/50 Pulse 46 Temp (Src) 96.6 (Temporal) Wt 0 lb (0.0kg) SpO2 95% General: Age-appropriate well developed. Appears fatigued. HEENT: Normocephalic, no sclera icterus Neck: Supple, no JVD. Chest: Clear bilaterally, no wheezes, not labored. Heart: Normal S1 and S2, no abnormal sounds, bradycardic Abdomen: Soft, nontender, Extremities: No cyanosis, clubbing, gross deformities. Neurological: Cranial nerves II through XII are intact bilaterally, no focal deficits. Skin: Warm and dry with no rashes. Skin tears on arms, several healing bruises to both lower arms. Hematologic: no petechiae. Psychiatric: Alert and oriented x3. I have performed the physical exam today (12/26/2024) and have edited the note to correlate with current findings. Lab Results Component Value Date WBC 10.52 12/26/2024 HB 10.2 (L) 12/26/2024 MCV 87.7 12/26/2024 PLT 179 12/26/2024 Lab Results Component Value Date NA 137 12/26/2024 K 5.0 12/26/2024 CO2 22 12/26/2024 BUN 36 (H) 12/26/2024 CREAT 1.96 (H) 12/26/2024 TBILI 0.3 10/25/2024 TPROT 6.5 10/25/2024 ALB 3.4 (L) 10/25/2024 ALKPHOS 53 10/25/2024 ALT <5 (L) 10/25/2024 AST 9 (L) 10/25/2024 Ferritin Date Value Ref Range Status 10/04/2024 421.0 30.3 - 565.7 ng/mL Final 07/10/2024 459.0 30.3 - 565.7 ng/mL Final 01/17/2024 566.0 (H) 30.3 - 565.7 ng/mL Final 11/03/2023 233.0 30.3 - 565.7 ng/mL Final 06/16/2023 270.0 30.3 - 565.7 ng/mL Final Iron Date Value Ref Range Status 10/04/2024 49 41 - 186 ug/dL Final 07/10/2024 54 41 - 186 ug/dL Final 03/20/2024 37 (L) 41 - 186 ug/dL Final 01/17/2024 47 41 - 186 ug/dL Final 11/03/2023 55 41 - 186 ug/dL Final TIBC Date Value Ref Range Status 10/04/2024 212 (L) 232 - 386 ug/dL Final 07/10/2024 207 (L) 232 - 386 ug/dL Final 03/20/2024 200 (L) 232 - 386 ug/dL Final 01/17/2024 235 232 - 386 ug/dL Final 11/03/2023 254 232 - 386 ug/dL Final Transferrin Saturation Date Value Ref Range Status 10/04/2024 23.1 15.0 - 57.0 % Final 07/10/2024 26.1 15.0 - 57.0 % Final 03/20/2024 18.5 15.0 - 57.0 % Final 01/17/2024 20.0 15.0 - 57.0 % Final 11/03/2023 21.7 15.0 - 57.0 % Final Assessment and Plan: Mr. Serrano is a pleasant 84 year old gentleman presenting for anemia workup Anemia, CKD - dicussed potential causes of anemia with patient and spouse in detail not limited to kidney/liver dysfunction, bone marrow disorders, chronic blood loss, etc. Reviewed likely multifactorial, hx of chemotherapy, CKD significant contributor. - discussed possible need for bone marrow bx, pt and spouse acknowledged. Continue to hold off for now. - CBC stable, CMP reflective of CKD, SPEP and urine protein negative for M protein, k/l ratio normal. - completed IV iron sucrose 200mg x5 with minimal improvement in CBC. Last dose 12/2023. Iron studies remain stable - Improvement in counts with epo - HGB 10.2, no injection today - follow up with cardiology. No OSH records, now off of eliquis in the last few months. - continue to follow with neuro - continue to monitor labs. Repeat ferritin, iron studies every 3 months - follow up with PCP - stable from hematology perspective. - advised to present to ED if symptoms fail to improve. CBC, possible aranesp in 1 month. Yenny Bill APRN.IGNITER CAPPER I spent a total of 30 minutes on the date of the service which included preparing to see the patient, [id number] patient care, completing clinical documentation, obtaining and/or reviewing separately obtained history, and counseling and educating the patient/family/caregiver. Portions of this note including HPI, ROS, impression/plan may have been copied forward as to provide important historical information essential in contributing to medical decision making. Documentation has been reviewed and edited as necessary to support clinical decision making for today's visit and to reflect my own independent evaluation of this patient. documented in this encounter [facility] 12-20-2024 Telephone encounter Note Jerry was notified Gwen Bear MA [facility] 12-20-2024 Miscellaneous Notes Jerry was notified Gwen Bear MA Ok. See if they can call with hr at next ov. Make sure not symptomatic. Jeryr with [facility] PT calls with PT POC. PT will see pt twice a week x 3 weeks for functional mobility. Also pt's HR was 43 today. Pt was asymptomatic. Leatha Jansen LPN documented in this encounter [facility] 12-19-2024 Telephone encounter Note Ok. See if they can call with hr at next ov. Make sure not symptomatic. [facility] 12-19-2024 Telephone encounter Note Jerry with [facility] PT calls with PT POC. PT will see pt twice a week x 3 weeks for functional mobility. Also pt's HR was 43 today. Pt was asymptomatic. Leatha Jansen LPN [facility] 12-12-2024 Note [facility] 12-11-2024 Telephone encounter Note Prescription Refill Information The patient has been identified by name and date of : Yes Caregiver verified no other encounters exist for this prescription request: Yes Caregiver confirmed with patient/requestor that no other refills are due, in the near future, with this provider at this time: Yes The last office visit in the department: 11/28/24 Does the patient have a future office visit with this provider/department: Yes Requested Prescriptions Pending Prescriptions Disp Refills metoprolol succinate ER (TOPROL XL) 50 mg 24 hr tablet 180 tablet 1 Sig: take 1 tablet by mouth 2 times a day Lizzette Restrepo LPN December 11, 2024 3:15 PM [facility] 12-11-2024 Miscellaneous Notes Prescription Refill Information The patient has been identified by name and date of : Yes Caregiver verified no other encounters exist for this prescription request: Yes Caregiver confirmed with patient/requestor that no other refills are due, in the near future, with this provider at this time: Yes The last office visit in the department: 11/28/24 Does the patient have a future office visit with this provider/department: Yes Requested Prescriptions Pending Prescriptions Disp Refills metoprolol succinate ER (TOPROL XL) 50 mg 24 hr tablet 180 tablet 1 Sig: take 1 tablet by mouth 2 times a day Lizzette Restrepo LPN December 11, 2024 3:15 PM documented in this encounter [facility] 11-30-2024 Telephone encounter Note Notified of such. [facility] 11-30-2024 Miscellaneous Notes Notified of such. Sorry, it looks like it didn't go through, resent phoned asking if [facility] office faxed the order for the Skin Barrier paste to the pharmacy or where did office fax it to? Where does go to pick it up? [facility] does not have the order. Please advise and phone with reply. [phone] documented in this encounter [facility] 11-30-2024 Telephone encounter Note Order was faxed to [facility] home health number provided as requested. [facility] 11-30-2024 Miscellaneous Notes Order was faxed to [facility] home health number provided as requested. Please fax order to other organization Hayley from [facility] Home Health calling asking for another order for home health please. Received one for [facility] home care. Please fax to [phone]. Pending order needs diagnosis, for non [facility] home health. Please advise documented in this encounter [facility] 11-30-2024 Telephone encounter Note Please fax order to other organization [facility] 11-30-2024 Telephone encounter Note Sorry, it looks like it didn't go through, resent [facility] 11-29-2024 Telephone encounter Note Hayley from [facility] Home Health calling asking for another order for home health please. Received one for [facility] home care. Please fax to [phone]. Pending order needs diagnosis, for non [facility] home health. Please advise [facility] 11-29-2024 Telephone encounter Note phoned asking if [facility] office faxed the order for the Skin Barrier paste to the pharmacy or where did office fax it to? Where does go to pick it up? [facility] does not have the order. Please advise and phone with reply. [phone] [facility] 11-29-2024 Note HNO ID: [id number] Author: DELMA TOBIAS LPN Service: ? Author Type: LICENSED NURSE Type: Progress Notes Filed: 11/29/2024 09:22 Note Text: Hgb 10.1 Treatment parameter not met. Aranesp injection deferred. Delma Tobias LPN [facility] 11-29-2024 History of Presen t illness Narrative Hgb 10.1 Treatment parameter not met. Aranesp injection deferred. Delma Tobias LPN documented in this encounter [facility] 11-28-2024 Telephone encounter Note See other encounter, patient requested [facility] home health, referral was faxed there. Marline Roach MA November 28, 2024 2:34 PM [facility] 11-28-2024 Miscellaneous Notes See other encounter, patient requested [facility] home health, referral was faxed there. Marline Roach MA November 28, 2024 2:34 PM Thank you for the referral of your patient to [facility]. At this time, we are at capacity and are unable to accept your patient. In order to help your patient receive quality home care, we have included reputable agencies that service this area: [facility] - , [place] [facility] Phone -[phone] . Please contact this agency and they will work with your patient to arrange timely services. Thank you, CAROLYNE Cruz 11/28/2024 11:58 AM documented in this encounter [facility] 11-28-2024 Telephone encounter Note Patient and requested orders for home health be faxed to [facility] like last time. Office note, face sheet, and order were faxed. Marline Roach MA November 28, 2024 12:11 PM [facility] 11-28-2024 Miscellaneous Notes Patient and requested orders for home health be faxed to [facility] like last time. Office note, face sheet, and order were faxed. Marline Roach MA November 28, 2024 12:11 PM documented in this encounter [facility] 11-28-2024 Telephone encounter Note Thank you for the referral of your patient to [facility]. At this time, we are at capacity and are unable to accept your patient. In order to help your patient receive quality home care, we have included reputable agencies that service this area: [facility] - , [place] [facility] ([facility]) Phone -[phone] . Please contact this agency and they will work with your patient to arrange timely services. Thank you, CAROLYNE Cruz 11/28/2024 11:58 AM [facility] 11-28-2024 Instructions Romina Flynn APRN.BRIAN - 11/28/2024 11:49 AM EDT - Apply the terbinafine antifungal cream to the affected areas on both legs twice daily for 30 days; once the rash has cleared, continue using it for an additional week. Prescription sent to [facility] pharmacy. - Use a barrier cream on the pressure sore on your buttocks to protect and soothe the skin. - Place an sli-jlwzz-oishc foam cushion on your wheelchair seat to relieve pressure on the sore. - A referral has been sent for a home health nurse to visit and check and dress your leg and buttock sores. Terbinafine 2 x day. - Continue wearing your compression stockings as tolerated. documented in this encounter [facility] 11-28-2024 Note [facility] 11-28-2024 History of Presen t illness Narrative This is a 84 year old male who presents today with: Patient presents with: Pressure Ulcers HISTORY OF PRESENT ILLNESS: Axel Serrano is a 84 year old male. Patient presents with: Pressure Ulcers Came in for wound on buttocks and legs. Suffered a nickel sized skin tear on left forearm. Cleaned with NS and band aid applied. Coccyx both sized with redness and first few layers of skin peeling. Axel Serrano is an 84-year-old male with a history of diabetes, neuropathy, and Parkinson's disease, presenting with chronic skin lesions on the legs and buttocks. Chronic Skin Lesions: - Lesions on legs and buttocks, present for months. - Lesions on legs are dry, with occasional seeping; no significant increase in size. - Lesions on buttocks have worsened, with redness and loss of the first layer of skin. - No pruritus, pain, or burning associated with lesions. - Applying hydrocortisone cream with some improvement noted. - Denies fever, chills, or headaches. Neuropathy: - Neuropathy primarily in feet, with occasional extension into legs. - Recent fall in the bathroom due to leg weakness. Diabetes: - Hemoglobin A1c: 7.5%. Parkinson's Disease: - Diagnosed at the beginning of the year. - Requires EPO injections for hemoglobin levels below 10 g/dL; last level was 9.9 g/dL. - Limited mobility, primarily using a lift chair at home for sitting and sleeping. - Has a hospital bed and wheelchair but rarely uses them. PAST MEDICAL HISTORY: PAST MEDICAL HISTORY Diagnosis Date 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) 12/02/2023 Cardiomyopathy in other diseases classified elsewhere CKD (chronic kidney disease) 09/16/2017 Diabetes mellitus without mention of complication Diabetes mellitus Diverticulosis of colon (without mention of hemorrhage) 07/13/2005 Essential hypertension External hemorrhoids without mention of complication 07/13/2005 Hyperplasia of prostate Internal hemorrhoids without mention of complication 07/13/2005 Iron malabsorption (HCC) 12/02/2023 Lymphoma in remission ([facility]) 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 Splenic artery aneurysm repeat scans showed no change/not identified PAST SURGICAL HISTORY Procedure Laterality Date CHOLECYSTECTOMY COLONOSCOPY FLX DX W/COLLJ SPEC WHEN PFRMD 07/13/2005 COLONOSCOPY FLX DX W/COLLJ SPEC WHEN PFRMD 03/11/2015 Colonoscopy COLONOSCOPY SCREENING 11/12/2021 Dr Cano no repeat due to age ESOPHAGOGASTRODUODENOSCOPY TRANSORAL DIAGNOSTIC 03/11/2015 EGD PAST SURGICAL HISTORY OF 2020 Aortic Valve Replacement ALLERGIES Mai Inhibitors, Atorvastatin, Pravastatin, and Irskwcw-Blr-Qxj Reductase Inhibitors MEDICATIONS Current Outpatient Medications Medication Sig aspirin, enteric coated (ASPIRIN, ENTERIC COATED) 81 mg EC tablet Take 81 mg by mouth once daily. carbidopa-levodopa (SINEMET) 25-100 mg per tablet Take 1 tablet at 7AM, Noon and 5PM. sertraline (ZOLOFT) 50 mg tablet Take 1 tablet by mouth once daily. LORazepam (ATIVAN) 0.5 mg Take 0.5 mg by mouth every 4 hours as needed. metFORMIN ER (GLUCOPHAGE XR) 500 mg 24 hr tablet Take 1 tablet by mouth two times a day before meals. rivastigmine tartrate (EXELON) 1.5 mg capsule TAKE 1 CAPSULE BY MOUTH 2 TIMES A DAY WITH MEALS SITagliptin phosphate (JANUVIA) 50 mg tablet Take 1 tablet by mouth once daily. tamsulosin (FLOMAX) 0.4 mg Take 2 capsules by mouth once daily. metoprolol succinate ER (TOPROL XL) 50 mg 24 hr tablet take 1 tablet by mouth 2 times a day ferrous gluconate 256 mg (28 mg iron) tab Take 1 tablet by mouth two times a day. folic acid 1 mg tablet Take 1 tablet by mouth once daily. gabapentin (NEURONTIN) 300 mg capsule Take 1 capsule by mouth two times a day. atorvastatin (LIPITOR) 40 mg tablet Take 1 tablet by mouth daily at bedtime. For cholesterol. furosemide (LASIX) 40 mg tablet Take 40 mg by mouth once daily. cyanocobalamin (VITAMIN B-12) 1,000 mcg tab Take 1 tablet by mouth once daily. blood sugar diagnostic (BLOOD GLUCOSE TEST) test strip Test blood sugar(s) 1 times daily. Dx: Type 1 DM - Controlled E10.9 Insulin: No LANCETS USE DIRECTED No current facility-administered medications for this visit. FAMILY HISTORY Problem Relation Age of Onset Coronary Artery Disease Mother Coronary Artery Disease Father Coronary Artery Disease Brother Heart disease Brother Heart disease Maternal Grandmother Heart disease Maternal Grandfather Heart disease Paternal Grandmother Heart disease Paternal Grandfather Social History Tobacco Use Smoking status: Former Types: Cigars Smokeless tobacco: Never Tobacco comments: cigars-6 a day Vaping Use Vaping status: Never Used Substance Use Topics Alcohol use: No Drug use: No REVIEW OF SYSTEMS Constitutional: (+) weakness Head: (-) headache Gastrointestinal: (+) increased bowel movements, (+) bowel incontinence Genitourinary: (+) urinary incontinence Musculoskeletal: (+) recent fall Skin: (+) weeping skin lesion of leg, (-) pruritus, (-) skin pain, (-) skin burning Neurological: (+) numbness of feet EXAM: BP 136/64 Pulse 65 Temp 36.6 C (97.8 F) (Left Tympanic) SpO2 94% PHYSICAL EXAM: GENERAL: NAD, alert and oriented. SKIN: Skin tear on arm- nickel sized- cleaned with NS and band aid applied. Lesions on legs, some with erythematous outline- pink center- scaly skin peelings, no itching or pain reported. Irregularly shaped, size of 2 hands. One on right leg that is smaller per - moves from leg to leg. Pressure sore on buttocks, erythematous, with superficial skin loss. HEAD: Normocephalic. LUNGS: Clear to auscultation bilaterally, no wheezes/rhonchi/rales. HEART: Regular rate and rhythm, no murmurs. No ectopy. EXTREMITIES: Normal, no deformities, minimal edema left lower leg, right lower leg with compression sleeve on. NEURO: Awake, alert and oriented x3 and minimal hand tremors. LABS: Labs: (Today) - Blood glucose: 7.5 - Hemoglobin: 9.9 g/dL ASSESSMENT/PLAN: 1. Diabetic polyneuropathy associated with type 2 diabetes mellitus (HCC) (E11.42) - Neuropathy primarily in the feet, with possible extension into the legs. Renewed gabapentin - Monitor blood glucose levels to manage neuropathy symptoms. 2. Mixed hyperlipidemia (E78.2) - Continue current management. Atorvastatin renewed 3. Pressure injury of buttock, stage 2, unspecified laterality ([facility]) (L89.302) - Erythematous area with loss of the first layer of skin observed on the buttocks. - Recommended use of a donut cushion to relieve pressure. - Advised to use a barrier cream to protect the skin. - Discussed the use of an egg crate foam cushion for the wheelchair to further alleviate pressure. - Initiated referral for home care nursing to monitor and manage the pressure injury. 4. Parkinson's disease without dyskinesia or fluctuating manifestations ([facility]) (G20.A1) - Diagnosed earlier this year; patient experiencing weakness and falls. - Continue current management. 5. Tinea corporis (B35.4) - Erythematous, scaly lesions on the legs with a red outline, consistent with a fungal infection. - Prescribed terbinafine cream to be applied to both legs twice daily for 30 days. - Advised to continue using the cream for an additional week after symptoms improve to ensure complete eradication of the infection. - Prescription sent to [facility] pharmacy. Discussed treatment plan and patient voices understanding. Patient's questions answered appropriately. Medications and potential side effects were discussed and patient voices understanding. Return to the office as scheduled or as needed for worsening/no improvement. Romina Flynn APRN.IGNITER CAPPER documented in this encounter [facility] 11-27-2024 Telephone encounter Note reports pt has 1 open pressure ulcer on left buttock, 2 open pressure ulcers on right buttock, all approx size of a pea. Reports whole buttock is red the last couple weeks. Ulcers maybe started 4 weeks ago and has gotten worse the past week. is putting desitin cream on the open areas. contacted pcp office to ask for [facility] nurse to start visiting again, since HH nurse was able to clear pressure ulcers up on same area after [facility] visit in Jun. Protocol recommends see provider in 24 hours. agreeable for now. States she will talk to patient and also she has a delivery coming today she does not want to miss. Reason for Disposition Looks like a boil or deep ulcer Answer Assessment - Initial Assessment Questions 1. APPEARANCE of SORES: 1 open area on the left buttock approx size of pea. 2 open areas on right buttock approx size of pea each. Whole buttock is red. No drainage. Do not look infected per . Pt gets up 5 times a day to go to the bathroom. Otherwise he doesn't walk. Pt is not incontinent. 2. NUMBER: 3 3. SIZE: Approximately size of pea- all 3 open areas. 4. LOCATION: Left buttock has 1 open area, right buttock has 2 open areas. 5. ONSET: Worse this past week. There was just 1- it's been a while, maybe 4 weeks ago since it started. The reddness started the last couple weeks. 6. TENDER: No tenderness, doesn't hurt when puts desitin on them. Pt states the area is tender when he sits. 7. CAUSE: Pressure when sitting in chair. Pt using a donut pillow. 8. OTHER SYMPTOMS: No fever. No new weakness. No other symptoms. Reports pt has been better since he got back on Parkinsons medication about 3 weeks ago. Protocols used: [id number] [facility] 11-27-2024 Miscellaneous Notes reports pt has 1 open pressure ulcer on left buttock, 2 open pressure ulcers on right buttock, all approx size of a pea. Reports whole buttock is red the last couple weeks. Ulcers maybe started 4 weeks ago and has gotten worse the past week. is putting desitin cream on the open areas. contacted pcp office to ask for [facility] nurse to start visiting again, since nurse was able to clear pressure ulcers up on same area after [facility] visit in Jun. Protocol recommends see provider in 24 hours. agreeable for now. States she will talk to patient and also she has a delivery coming today she does not want to miss. Reason for Disposition Looks like a boil or deep ulcer Answer Assessment - Initial Assessment Questions 1. APPEARANCE of SORES: 1 open area on the left buttock approx size of pea. 2 open areas on right buttock approx size of pea each. Whole buttock is red. No drainage. Do not look infected per . Pt gets up 5 times a day to go to the bathroom. Otherwise he doesn't walk. Pt is not incontinent. 2. NUMBER: 3 3. SIZE: Approximately size of pea- all 3 open areas. 4. LOCATION: Left buttock has 1 open area, right buttock has 2 open areas. 5. ONSET: Worse this past week. There was just 1- it's been a while, maybe 4 weeks ago since it started. The reddness started the last couple weeks. 6. TENDER: No tenderness, doesn't hurt when puts desitin on them. Pt states the area is tender when he sits. 7. CAUSE: Pressure when sitting in chair. Pt using a donut pillow. 8. OTHER SYMPTOMS: No fever. No new weakness. No other symptoms. Reports pt has been better since he got back on Parkinsons medication about 3 weeks ago. Protocols used: [id number] documented in this encounter [facility] 11-23-2024 Instructions Yeyo Bailey APRN.CNP - 11/23/2024 1:35 PM EDT - Continue taking your aspirin as prescribed. - Schedule a head CT scan in about three months for comparison; the merchandising internship will set this up before you leave today. - Plan a virtual follow-up (by phone or via [employer]) to review your CT results so you won t need to return in person. - Follow up with your eye doctor in about one month to reassess your vision. documented in this encounter [facility] 11-23-2024 History of Presen t illness Narrative NEUROSURGERY FOLLOW UP OFFICE NOTE Yeyo Bailey APRN.CNP Date of visit: November 23, 2024 Patient Name: Mr.Merven Junior Serrano Date of : 1940 Current Age: [age] year old Sex: male MRN/E# [id number] Last Office Visit: Hospital follow-up CHIEF COMPLAINT: Patient presents with: Established Patient HPI: The patient presents for a hospital follow up with imaging (CT B) for evaluation. This is an 84-year-old male with a PMHx of Parkinson's, DM, CAD, CKD, B-cell lymphoma s/p chemotherapy, anemia, A-fib (ASA) who was seen for consult at [facility] on 10/25/[address] Reese. Patient underwent an MRI of the brain by his neurologist for dementia workup. He was contacted by the neurology office to present to the ED after an abnormality was noted on the scan. Once in the ED his reported that he had a bad fall in March 2024 causing him to strike his face on the concrete. Workup was negative for acute intracranial abnormality. 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 During that admission he developed a new onset of atrial fibrillation and was started on Eliquis and low-dose ASA. He followed up with cardiology and had a Holter monitor that showed no episodes of atrial fibrillation. Eliquis was discontinued and he remained on low-dose ASA. His reported that confusion has improved since his admission in April. MRI was reviewed and showed bilateral subdural fluid collections. There was no evidence of acute hemorrhage noted. There is no evidence of compression or midline shift. CT brain demonstrated a chronic appearance of these subdural fluid collections. No neurosurgical intervention was indicated. He was cleared to continue low-dose ASA with recommendation to follow-up with neurosurgery in 2 weeks with a repeat CT. Today he states that he is overall doing well and denies any specific complaints or concerns. He denies any headache, speech deficits, seizure activity, motor or sensory changes. He does report intermittent episodes of blurry vision in the right eye. States he was seen by his eye doctor who changed his prescription and it is slightly improved however he continues to have difficulty reading especially in the dark. He is scheduled to follow-up with his eye doctor next month for a follow-up visit. Presents for image review, evaluation and plan of care. SYMPTOMS: Mild right eye vision changes PREVIOUS CONSERVATIVE TREATMENTS: None PREVIOUS SURGERY: None SURGICAL RISK: Smoker: Former Diabetic: Yes -A1c 7.5% on 09/18/2024 Anticoagulants / Antiplatelets: ASA 81 mg Occupation: N/A PAIN EVALUATION No data found in the last 1 encounters. 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 Splenic artery aneurysm repeat scans showed no change/not identified PAST SURGICAL HISTORY Procedure Laterality Date CHOLECYSTECTOMY COLONOSCOPY FLX DX W/COLLJ SPEC WHEN PFRMD 07/13/2005 COLONOSCOPY FLX DX W/COLLJ SPEC WHEN PFRMD 03/11/2015 Colonoscopy COLONOSCOPY SCREENING 11/12/2021 Dr Cano no repeat due to age ESOPHAGOGASTRODUODENOSCOPY TRANSORAL DIAGNOSTIC 03/11/2015 EGD PAST SURGICAL HISTORY OF 2020 Aortic Valve Replacement FAMILY HISTORY Problem Relation Age of Onset Coronary Artery Disease Mother Coronary Artery Disease Father Coronary Artery Disease Brother Heart disease Brother Heart disease Maternal Grandmother Heart disease Maternal Grandfather Heart disease Paternal Grandmother Heart disease Paternal Grandfather ALLERGIES Allergen Reactions Mai Inhibitors Other: See Comments Hyperkalemia Atorvastatin Myalgia Pravastatin Myalgia Wltnabl-Upj-Nnb Red* Myalgia Current Outpatient Medications Medication Sig Dispense Refill aspirin, enteric coated (ASPIRIN, ENTERIC COATED) 81 mg EC tablet Take 81 mg by mouth once daily. carbidopa-levodopa (SINEMET) 25-100 mg per tablet Take 1 tablet at 7AM, Noon and 5PM. 90 tablet 2 sertraline (ZOLOFT) 50 mg tablet Take 1 tablet by mouth once daily. 90 tablet 3 LORazepam (ATIVAN) 0.5 mg Take 0.5 mg by mouth every 4 hours as needed. metFORMIN ER (GLUCOPHAGE XR) 500 mg 24 hr tablet Take 1 tablet by mouth two times a day before meals. 180 tablet 3 rivastigmine tartrate (EXELON) 1.5 mg capsule TAKE 1 CAPSULE BY MOUTH 2 TIMES A DAY WITH MEALS 135 capsule 3 SITagliptin phosphate (JANUVIA) 50 mg tablet Take 1 tablet by mouth once daily. 90 tablet 3 tamsulosin (FLOMAX) 0.4 mg Take 2 capsules by mouth once daily. 180 capsule 3 metoprolol succinate ER (TOPROL XL) 50 mg 24 hr tablet take 1 tablet by mouth 2 times a day 90 tablet 3 ferrous gluconate 256 mg (28 mg iron) tab Take 1 tablet by mouth two times a day. 180 tablet 1 folic acid 1 mg tablet Take 1 tablet by mouth once daily. 30 tablet 11 gabapentin (NEURONTIN) 300 mg capsule Take 1 capsule by mouth two times a day. 60 capsule 11 atorvastatin (LIPITOR) 40 mg tablet Take 1 tablet by mouth daily at bedtime. For cholesterol. 90 tablet 3 furosemide (LASIX) 40 mg tablet Take 40 mg by mouth once daily. cyanocobalamin (VITAMIN B-12) 1,000 mcg tab Take 1 tablet by mouth once daily. 30 tablet 11 blood sugar diagnostic (BLOOD GLUCOSE TEST) test strip Test blood sugar(s) 1 times daily. Dx: Type 1 DM - Controlled E10.9 Insulin: No 50 Strip 11 LANCETS USE DIRECTED 100 0 No current facility-administered medications for this visit. REVIEW OF SYSTEMS: Review of Systems All other systems reviewed and are negative. Constitutional: (-) sleepiness Head: (-) headache Eyes: (+) blurred vision right eye Gastrointestinal: (-) vomiting OBJECTIVE: BP 144/67 Pulse 46 Resp 16 SpO2 97% PHYSICAL EXAM: Mental State : Alert. Attention span and concentration normal for patient's age. Speech normal, fluent. No receptive or expressive speech deficit. Recent and remote memory normal. Orientation : Oriented to person, place and time. Higher Cortical Function : Intact speech and language. Comprehension normal. Fund of knowledge intact for pt level of education. Cranial Nerves : II: Mild blurry vision in right eye. Makes and sustains eye contact. III, IV, : No double vision or lid drooping. Pupils equal and reactive to light. Extraocular muscles intact. No nystagmus. V: Normal sensation on the face, normal jaw movements. VII: No paresis on either side. VIII: No gross hearing deficit IX: Good and equal shoulder shrugs. XII: Tongue midline, no fasciculations. Sensory: SILT. Normal Sensation in bilateral upper and bilateral lower extremities to touch and noxious stimuli. Motor: Normal muscle tone and bulk. No spasticity, tremor or uncontrollable movements. Strength: Upper Extremities : R L Deltoid 5/5 5/5 Biceps 5/5 5/5 Triceps 5/5 5/5 Wrist Ext 5/5 5/5 Wrist Flx 5/5 5/5 Hand Int 5/5 5/5 Lower Extremities : Hip Flexors 5/5 5/5 Hip Extensors 5/5 5/5 Hip Abductors 5/5 5/5 Straight leg Neg Neg Ankle dorsiflex 5/5 5/5 Ankle Plantar 5/5 5/5 Cerebellar Function : Normal finger to nose. Normal rapid alternating movements. No ataxia. . Gait and Station: Compensated gait, Parkinson's. Currently in wheelchair. DATA REVIEW: IMAGING STUDIES: CT Brain WO IVCON performed on 11/09/24 demonstrates: IMPRESSION: No significant interval change in size of thin hypoattenuating subdural fluid collections along the bilateral cerebral convexities without substantial mass effect, measuring up to 5 mm in greatest thickness. No midline shift. Personal review of medical records: I reviewed with the patient, history, physical exam, the images and the chart. ASSESSMENT/PLAN: (I62.03) Subdural hematoma, chronic (HCC) (primary encounter diagnosis) 1. Subdural hematoma, chronic (HCC) (I62.03) - Recent CT scan on November 09 shows no change in chronic subdural fluid collections compared to previous imaging from October 25. - Explained that these are chronic fluid collections, not active bleeding. - No symptoms such as headaches, nausea, or altered mental status observed. - Scheduled a follow-up CT scan in 3 months to monitor for any changes. - Will conduct a virtual visit post-scan to discuss results. - Patient is currently on aspirin therapy; previously on Eliquis for presumed AFib, which has been discontinued after cardiac monitoring showed no evidence of AFib. Yeyo Bailey APRN-BRIAN Neurosurgery Nurse Practitioner [facility] FOLLOW UP: Return in about 3 months (around 02/23/2025) for review of imaging and plan of care. Please Note: This note has been partially generated using Tirendo, a speech recognition software program, and may contain errors including punctuation, grammar, spelling, gender, and inappropriate words or phrases that pertain to the system. Recording using Cause.it software for draft documentation of the visit was discussed with the patient/authorized contact center representative; all questions welcomed and answered. Patient/authorized contact center representative agreed to proceed documented in this encounter [facility] 11-23-2024 Note HNO ID: [id number] Author: YEYO BAILEY APRN.CNP Service: ? Author Type: Nurse Practitioner Type: Progress Notes Filed: 11/23/2024 13:35 Note Text: NEUROSURGERY FOLLOW UP OFFICE NOTE Yeyo Bailey APRN.CNP Date of visit: November 23, 2024 Patient Name: Mr.Merven Junior Serrano Date of : 1940 Current Age: [age] year old Sex: male MRN/E# [id number] Last Office Visit: Hospital follow-up CHIEF COMPLAINT: Patient presents with: Established Patient HPI: The patient presents for a hospital follow up with imaging (CT B) for evaluation. This is an 84-year-old male with a PMHx of Parkinson's, DM, CAD, CKD, B-cell lymphoma s/p chemotherapy, anemia, A-fib (ASA) who was seen for consult at [facility] on 10/25/[address] Reese. Patient underwent an MRI of the brain by his neurologist for dementia workup. He was contacted by the neurology office to present to the ED after an abnormality was noted on the scan. Once in the ED his reported that he had a bad fall in March 2024 causing him to strike his face on the concrete. Workup was negative for acute intracranial abnormality. 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 During that admission he developed a new onset of atrial fibrillation and was started on Eliquis and low-dose ASA. He followed up with cardiology and had a Holter monitor that showed no episodes of atrial fibrillation. Eliquis was discontinued and he remained on low-dose ASA. His reported that confusion has improved since his admission in April. MRI was reviewed and showed bilateral subdural fluid collections. There was no evidence of acute hemorrhage noted. There is no evidence of compression or midline shift. CT brain demonstrated a chronic appearance of these subdural fluid collections. No neurosurgical intervention was indicated. He was cleared to continue low-dose ASA with recommendation to follow-up with neurosurgery in 2 weeks with a repeat CT. Today he states that he is overall doing well and denies any specific complaints or concerns. He denies any headache, speech deficits, seizure activity, motor or sensory changes. He does report intermittent episodes of blurry vision in the right eye. States he was seen by his eye doctor who changed his prescription and it is slightly improved however he continues to have difficulty reading especially in the dark. He is scheduled to follow-up with his eye doctor next month for a follow-up visit. Presents for image review, evaluation and plan of care. SYMPTOMS: Mild right eye vision changes PREVIOUS CONSERVATIVE TREATMENTS: None PREVIOUS SURGERY: None SURGICAL RISK: Smoker: Former Diabetic: Yes -A1c 7.5% on 09/18/2024 Anticoagulants / Antiplatelets: ASA 81 mg Occupation: N/A PAIN EVALUATION No data found in the last 1 encounters. 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 Splenic artery aneurysm repeat scans showed no change/not identified PAST SURGICAL HISTORY Procedure Laterality Date CHOLECYSTECTOMY COLONOSCOPY FLX DX W/COLLJ SPEC WHEN PFRMD 07/13/2005 COLONOSCOPY FLX DX W/COLLJ SPEC WHEN PFRMD 03/11/2015 Colonoscopy COLONOSCOPY SCREENING 11/12/2021 Dr Cano no repeat due to age ESOPHAGOGASTRODUODENOSCOPY TRANSORAL DIAGNOSTIC 03/11/2015 EGD PAST SURGICAL HISTORY OF 2020 Aortic Valve Replacement FAMILY HISTORY Problem Relation Age of Onset Coronary Artery Disease Mother Coronary Artery Disease Father Coronary Artery Disease Brother Heart disease Brother Heart disease Maternal Grandmother Heart disease Maternal Grandfather Heart disease Paternal Grandmother Heart disease Paternal Grandfather ALLERGIES Allergen Reactions Mai Inhibitors Other: See Comments Hyperkalemia Atorvastatin Myalgia Pravastatin Myalgia [id number]-Qrv-Oec Red* Myalgia Current Outpatient Medications Medication Sig Dispense Refill aspirin, enteric coated (ASPIRIN, ENTERIC COATED) 81 mg EC tablet Take 81 mg by mouth once daily. carbidopa-levodopa (SINEMET) 25-100 mg per tablet Take 1 tablet at 7AM, Noon and 5PM. 90 tablet 2 sertraline (ZOLOFT) 50 mg tablet Take 1 tablet by mouth once daily. 90 tablet 3 LORazepam (ATIVAN) 0.5 mg Take 0.5 mg by mouth every 4 hours as needed. metFORMIN ER (GLUCOPHAGE XR) 500 mg 24 hr tablet Ta (more content not included)... [facility] 11-09-2024 History of Presen t illness Narrative Radiology Service Progress Note PATIENT NAME: Axel Serrano DATE OF SERVICE: November 09, 2024 TIME: 3:02 PM PATIENT IDENTITY VERIFICATION COMPLETED USING TWO (2) IDENTIFIERS: Name and Date of confirmed by patient verbally. FALL SCREENING: Has the patient had 2 falls in the last year or 1 fall with injury or currently using an Ambulatory Assistive Device (Walker, Cane, Wheelchair, Crutches, etc.)? No PATIENT GENDER DATA: Assigned female at . status: : No status: NO. PATIENT RELEVANT IMPLANT DATA REVIEWED: Yes PATIENT PRESENTS WITH AN IMPLANTABLE OR ATTACHED QUALITY AND RELIABILITY ENGINEER: No RADIOLOGY DEPARTMENT: CT; Exam(s) Completed: Brain PERIPHERAL IV DATA: Not applicable SIGNED BY: RT Sharan(R) November 09, 2024 3:02 PM documented in this encounter [facility] 11-09-2024 Note [facility] 11-01-2024 Note [facility] 11-01-2024 History of Presen t illness Narrative Patient presents with: Imm/Inj Pt is identified by name and birthdate: Yes. Allergies and medications reviewed. Latex allergy? No. Does this patient have: Unplanned weight loss or gain of greater than 10 pounds, or a change of appetite over the last year? No Does the patient have any concerns about safety in the home/falls? Not at risk for falls Has the patient fallen in the past year? No Does the patient have difficulty performing or completing routine daily living activities? No Does this patient have concerns about personal safety? No Is patient having pain? Pain: No=0 (pain 0 on a scale of 0-10). Health Maintenance: Reviewed and updated. Does patient have MyChart access or Caregiver proxy: yes Pt/Caregiver willingness and readiness to learn assessed: Yes. Barriers: none Aranesp injection administered, left arm,tolerated well, no immediate adverse reactions noted. Maral Brush LPN documented in this encounter [facility] 10-25-2024 Telephone encounter Note Patient/spouse contacted by provider please see separate TE. Deborah Sykes LPN [facility] 10-25-2024 Miscellaneous Notes Patient/spouse contacted by provider please see separate TE. Deborah Sykes LPN TC to patient. Unable to reach. Please transfer to ext. [phone] when returns call to office. Deborah Sykes LPN documented in this encounter [facility] 10-25-2024 Telephone encounter Note Contacted by radiology indicating patient with suspected subdural hematomas (see rad report). Possible cause of symptoms including AMS. Onset of SDH uncertain with prior imaging at OSH and not available for review. Last CT brain available is 04/2024 making no mention of bleed. Recently on Elquis for afib but switched to ASA on 10/05/24. Due to uncertainty of cause or duration of suspected SDHs recommend immediately ER evaluation (including coags and plt). Patient will be going to [facility]. I have contacted their ER and notified them of patient with details of history provided. D/w pt and pt en route now. Arsh Otto MD [facility] 10-25-2024 Miscellaneous Notes Contacted by radiology indicating patient with suspected subdural hematomas (see rad report). Possible cause of symptoms including AMS. Onset of SDH uncertain with prior imaging at OSH and not available for review. Last CT brain available is 04/2024 making no mention of bleed. Recently on Elquis for afib but switched to ASA on 10/05/24. Due to uncertainty of cause or duration of suspected SDHs recommend immediately ER evaluation (including coags and plt). Patient will be going to [facility]. I have contacted their ER and notified them of patient with details of history provided. D/w pt and pt en route now. Arsh Otto MD documented in this encounter [facility] 10-25-2024 Telephone encounter Note TC to patient. Unable to reach. Please transfer to ext. [phone] when returns call to office. Deborah Sykes LPN [facility] 10-25-2024 History of Presen t illness Narrative Radiology Service Progress Note PATIENT NAME: Axel Serrano DATE OF SERVICE: October 25, 2024 TIME: 12:00 PM PATIENT IDENTITY VERIFICATION COMPLETED USING TWO (2) IDENTIFIERS: Name and Date of confirmed by patient verbally. FALL SCREENING: Has the patient had 2 falls in the last year or 1 fall with injury or currently using an Ambulatory Assistive Device (Walker, Cane, Wheelchair, Crutches, etc.)? Yes, Patient High Risk for Falls What interventions were put in place to prevent falls during this visit? Instructed Patient to Call for Help if Needed, Offered Assistance with Transfers/Clothing, Instructed Patient to Remain Seated (Not on Exam Table) Until Exam, and Increased Observations by Caregivers PATIENT GENDER DATA: Assigned male at PATIENT RELEVANT IMPLANT DATA REVIEWED: Yes PATIENT PRESENTS WITH AN IMPLANTABLE OR ATTACHED QUALITY AND RELIABILITY ENGINEER: No RADIOLOGY DEPARTMENT: MR; Exam(s) Completed: Head: Routine Brain. Lavender Administered: No PERIPHERAL IV DATA: Not applicable SIGNED BY: Addie Carrillo RT(R) October 25, 2024 12:00 PM documented in this encounter [facility] 10-25-2024 Note [facility] 10-20-2024 Note [facility] 10-20-2024 History of Presen t illness Narrative ESTABLISHED PATIENT VISIT CHIEF COMPLAINT: Follow Up HISTORY OF PRESENT ILLNESS: Axel Serrano is a 84 year old male, with a PMH significant for and per last office visit of 04/06/24: 1. Parkinson's disease, unspecified whether dyskinesia present, unspecified whether manifestations fluctuate (HCC) - ICD9: 332.0, ICD10: G20.A1 (primary diagnosis) Patient non-compliant with meds as Rx'd as above. Current exam showing progression of PD, but difficult to assess effectiveness of meds with pt not taking dose since 6AM (7+ hours ago). Again d/w pt and his the etiology, physiology and treatment of PD and the manner in which Sinemet works including its duration of action. Given significant symptoms, will restart patient on Sinemet 25/100mg but would like patient to take QID (6AM, 10AM, 2PM and 6PM). SE and ADRs d/w pt and his . In addition he is not active. Needs exercise. Consult placed to PT, but pt wanting therapy at home. Explained therapy at a PT location would be more effective. Will have them further d/w PT. 2. Spinal stenosis of lumbar region with neurogenic claudication - ICD9: 724.03, ICD10: M48.062 Lower back pain, radiating down legs when ambulating. MRI L spine with no recent imaging with concern for stenosis. 3. Acute pain of left shoulder due to trauma - ICD9: 719.41, 338.11, ICD10: M25.512, G89.11 XR results pending, but suspect rotator cuff injury by history. Thus, will also place order for MRI SHOULDER WO IVCON LEFT. If XR shows obvious source of pain, then can d/c MRI. He will need ortho evaluation. 4. Neuropathy - ICD9: 355.9, ICD10: G62.9 Stable, no pain is peripheral distribution. History of chemo as well as DM. Continue to monitor. 5. Abnormality of gait - ICD9: 781.2, ICD10: R26.9 Multifactorial due to those above. - CONSULT TO PHYSICAL THERAPY 6. IRINEO on CPAP - ICD9: 327.23, ICD10: G47.33 7. Treatment-emergent central sleep apnea - ICD9: 327.29, ICD10: G47.39 8. Class 3 severe obesity with body mass index (BMI) of 40.0 to 44.9 in adult, unspecified obesity type, unspecified whether serious comorbidity present (HCC) - ICD9: 278.01, V85.41, ICD10: E66.813, E66.01, Z68.41 PAP data download pending. Still subjective mask leaks. Encouraged compliance. Further comments once PAP data known. MRI L spine of 04/12/24 showed per rad report: Degenerative changes most pronounced at L4-5 and L5-S1. Anatomic Lumbar Variant: None. L4-5 is considered the level of the iliac crest and assume there are 5 lumbar-type vertebrae. Canal stenosis varies from mild to moderate degree depending on level. MRI shoulder on 04/12/24 showed per rad report: Comminuted nondisplaced fracture of the proximal humerus which is likely subacute healing. Severe tendinosis of the rotator cuff without tear. Pt admitted to [facility] in April for AMS - was there for a week for acute AMS with visual hallucinations. Was told he has dementia. States had a fall on March 13, 2024 and struck his head. At that time was seen in ER and reportedly had scans of the brain. This was prior to last visit with me. Note providing history. This is the same fall that caused humerus fracture. Again no cognitive issues until mid April. Note that during admit in April 2024 also had afib and started on Eliquis. Patient also no longer on Sinemet and cannot determined who stopped this. Review of notes of other physicians through 2024 keep stating newly diagnosed PD but we have been treating for years. ER notes reviewed from 04/2024 and t was in [place]. CT brain on 04/24/24 showed per rad report no aute changes. Modified MOCA: Immediate recall: 5/5 Number repeat: 2/2 Sentence repeat: 06/11 Serial 7s: 06/12 Abstract: 06/11 Namin/3 Orientation: 10/13 Delayed: 07/12 Clock drawin/3 Pt now off PAP after hospital discontinued and started on oxygen. Again new dx of afib. He was not on O2 after d/c. Pt now not wanting to go back on PAP. REVIEW OF SYSTEMS GENERAL:No weight loss, malaise or fevers. HEENT:Negative for frequent or significant headaches, No changes in hearing or vision, no nose bleeds or other nasal problems NECK:Negative for lumps, goiter, pain and significant neck swelling RESPIRATORY: Negative for cough, wheezing or shortness of breath. CARDIOVASCULAR: Negative for chest pain, leg swelling or palpitations. GASTROINTESTINAL: Negative for abdominal discomfort, blood in stools or black stools or change in bowel habits GENITOURINARY: No history of dysuria, frequency or incontinence MUSCULOSKELETAL: Negative for joint pain or swelling, back pain or muscle pain. NEUROLOGIC:See HPI. LAB/IMAGING: Those performed since patient's last visit have been reviewed. WBC (k/uL) Date Value 10/04/2024 8.13 RBC (m/uL) Date Value 10/04/2024 3.74 (L) Hemoglobin (g/dL) Date Value 10/04/2024 10.6 (L) Hematocrit (%) Date Value 10/04/2024 32.7 (L) MCV (fL) Date Value 10/04/2024 87.4 MCH (pg) Date Value 10/04/2024 28.3 MCHC (g/dL) Date Value 10/04/2024 32.4 RDW-CV (%) Date Value 10/04/2024 14.6 Platelet Count (k/uL) Date Value 10/04/2024 162 MPV (fL) Date Value 10/04/2024 9.8 Glucose (mg/dL) Date Value 09/18/2024 171 (H) BUN (mg/dL) Date Value 09/18/2024 25 (H) Creatinine (mg/dL) Date Value 09/18/2024 1.71 (H) Sodium (mmol/L) Date Value 09/18/2024 137 Potassium (mmol/L) Date Value 09/18/2024 4.4 Chloride (mmol/L) Date Value 09/18/2024 101 CO2 (mmol/L) Date Value 09/18/2024 24 Protein, Total (g/dL) Date Value 03/20/2024 6.5 Albumin (g/dL) Date Value 03/20/2024 3.5 (L) Calcium, Total (mg/dL) Date Value 09/18/2024 9.1 Alkaline Phosphatase (U/L) Date Value 03/20/2024 48 Bilirubin, Total (mg/dL) Date Value 03/20/2024 0.6 AST (U/L) Date Value 03/20/2024 8 (L) ALT (U/L) Date Value 03/20/2024 <5 (L) YOGI (no units) Date Value 05/20/2017 Positive (A) Rheumatoid Factor (IU/mL) Date Value 05/20/2017 <10 MEDICATIONS: aspirin, enteric coated (ASPIRIN, ENTERIC COATED) 81 mg EC tablet Take 81 mg by mouth once daily. sertraline (ZOLOFT) 50 mg tablet Take 1 tablet by mouth once daily. LORazepam (ATIVAN) 0.5 mg Take 0.5 mg by mouth every 4 hours as needed. metFORMIN ER (GLUCOPHAGE XR) 500 mg 24 hr tablet Take 1 tablet by mouth two times a day before meals. apixaban (ELIQUIS) 5 mg tab(s) Take 1/2 tablet by mouth two times a day rivastigmine tartrate (EXELON) 1.5 mg capsule TAKE 1 CAPSULE BY MOUTH 2 TIMES A DAY WITH MEALS SITagliptin phosphate (JANUVIA) 50 mg tablet Take 1 tablet by mouth once daily. tamsulosin (FLOMAX) 0.4 mg Take 2 capsules by mouth once daily. metoprolol succinate ER (TOPROL XL) 50 mg 24 hr tablet take 1 tablet by mouth 2 times a day ferrous gluconate 256 mg (28 mg iron) tab Take 1 tablet by mouth two times a day. folic acid 1 mg tablet Take 1 tablet by mouth once daily. gabapentin (NEURONTIN) 300 mg capsule Take 1 capsule by mouth two times a day. atorvastatin (LIPITOR) 40 mg tablet Take 1 tablet by mouth daily at bedtime. For cholesterol. furosemide (LASIX) 40 mg tablet Take 40 mg by mouth once daily. cyanocobalamin (VITAMIN B-12) 1,000 mcg tab Take 1 tablet by mouth once daily. LANCETS USE DIRECTED blood sugar diagnostic (BLOOD GLUCOSE TEST) test strip Test blood sugar(s) 1 times daily. 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 Splenic artery aneurysm repeat scans showed no change/not identified FAMILY HISTORY Problem Relation Age of Onset Coronary Artery Disease Mother Coronary Artery Disease Father Coronary Artery Disease Brother Heart disease Brother Heart disease Maternal Grandmother Heart disease Maternal Grandfather Heart disease Paternal Grandmother Heart disease Paternal Grandfather SOCIAL HISTORY Social History Tobacco Use Smoking status: Former Types: Cigars Smokeless tobacco: Never Tobacco comments: cigars-6 a day Vaping Use Vaping status: Never Used Substance Use Topics Alcohol use: No Drug use: No PHYSICAL EXAMINATION There were no vitals taken for this visit. GENERAL EXAM: General appearance: NAD, pleasant. HEENT: NC/AT, nasal congestion absent, no oral lesions, membranes moist. NECK: ROM nml. Lungs: CTA bilaterally. CV: RRR nl S1, S2. Extr: No evidence of fasciculations. Extremity pulses palpable and normal. Skin: Cool to touch. No rash. NEUROLOGICAL EXAM: General: Awake, alert, oriented x3 (person,place,time), fluent, no dysarthria; masked facies. +Hypophonia. CN: PERRL, EOMI and without nystagmus, VFF to confrontation, facial sensation and strength are normal and symmetric, hearing is intact, palate and tongue movements are intact and symmetric. SCM and trapezius strength symmetric. Motor: Increased tone of cogwheel nature in LUE > RUE. Strength (5/5) bilaterally (throughout extremities x4). Coordination: FNF, ALEX impaired in LUE>RUE. Resting tremor in LUE. Sensation: Light touch and vibration intact throughout. No evidence of neglect. Gait: Stooped posture. Needs 1 assist to help patient rise from seated position. Shuffling gait. +Retropulsion with minimal pull. Essentially no arm swing. Assessment and Plan: ASSESSMENT/PLAN: 1. Parkinson's disease, unspecified whether dyskinesia present, unspecified whether manifestations fluctuate (HCC) - ICD9: 332.0, ICD10: G20.A1 (primary diagnosis) 2. Abnormality of gait - ICD9: 781.2, ICD10: R26.9 3. Altered mental status, unspecified altered mental status type - ICD9: 780.97, ICD10: R41.82 Patient with known history of PD, for which he has been on Sinemet since at least 2022 from review of records. Admitted to [facility] for AMS. Limited records available for review as above, but dx'd with Parkinson's with agitation due to Parkinson's dementia. However, this AMS was acute and not suggestive of dementia. While incorrect dosing of Sinemet (pt non compliance) might cause hallucinations, these persisted even after the dose had been lowered to a dose he had been on for months without issue. At this time, history not supportive that PD was the definite cause of AMS. Furthermore, modified MOCA today not suggestive of a dementia or at least not a degree of cognitive impairment that would result in hallucinations and changes in behaviors. Possible that KOFI and other metabolic derangements were cause of changes. In addition, they report new dx of afib in ER at time of AMS. Patient never had MRI brain, and thus unknown if patient may have had a cerebrovascular event that had not yet declared on CT brain (I do not have actual images for review). To further evaluate for causes of AMS, will get MRI brain wo contrast to evaluate. At this time, patient with very limited ability to function - impaired mobility as result of PD. D/w patient and restarting Sinemet dose that he was tolerating. Will restart on 25/100mg TID with at 7am, Noon and 5PM. If any side effects they are to stop immediately. They asked about Requip or Mirapex type meds, but higher risk of side effects on these than Sinemet given age. 4. IRINEO on CPAP - ICD9: 327.23, ICD10: G47.33 5. Treatment-emergent central sleep apnea - ICD9: 327.29, ICD10: G47.39 Pt with known history of severe IRINEO. and treatment emergent CSA. AHI was near normalized while using ASV. PAP therapy stopped while inpatient as above, and patient now not wanting to restart as later reports they told him "he does not need it." Reviewed with patient and med conditions associated with untreated sleep apnea including Afib. Previously compliant with ASV nightly. Requesting ECHO if performed during hospitalization to see if ASV would remain appropriate. No matter, even after discussing, patient not wanting to restart ASV or any form of PAP therapy. Arsh Otto MD I spent a total of 70 minutes on the date of the service which included preparing to see the patient, [id number] patient care, completing clinical documentation, obtaining and/or reviewing separately obtained history, performing a medically appropriate examination, counseling and educating the patient/family/caregiver, ordering medications, tests, or procedures, and communicating results to the patient/family/caregiver. documented in this encounter [facility] 10-20-2024 Note HNO ID: [id number] Author: DEBORAH SYKES LPN Service: ? Author Type: LICENSED NURSE Type: Progress Notes Filed: 10/20/2024 18:25 Note Text: [facility] 10-04-2024 Note HNO ID: [id number] Author: DELMA TOBIAS LPN Service: ? Author Type: LICENSED NURSE Type: Progress Notes Filed: 10/04/2024 10:05 Note Text: Aranesp injection deferred, Hgb 10.6. Treatment parameter not met. Delma Tobias LPN [facility] 10-04-2024 History of Presen t illness Narrative Aranesp injection deferred, Hgb 10.6. Treatment parameter not met. 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 Winn records in care everywhere), presenting as referral from his PCP, Dr. Polk for further anemia workup. Hgb has been gradually decreasing over the last year or so. Thorough workup for anemia completed. Folate deficiency corrected. No iron or b12 deficiency. Denies new aches or pains today. Chronic back pain stable. Some R side rib pain s/p fall in shower into toilet resulting in rib fx >10 years ago. Denies new lumps or bumps. No SOB, CP, or palpitations. No DOVER, dizziness, or changes in vision. Denies N/V/C/D. No changes in bowel or bladder habits. No hematuria, hematochezia, occult stool negative. No rash or skin changes. Denies recent bleeding or bruising. Hx of blood tx during clinical trial. No IV iron. Denies unintentional weight loss. 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 Some chemical exposure to round up (household use). BM bx in the past at [facility] while undergoing treatment for DLBCL. Denies know family hx of cancer or blood disorders. Last scope 2014 with [facility], declines additional. Recent fall, tripped on floor mat walking into a restaurant. Fractured humerus well healed Recent hospitalization for confusion Apr 27 - May 19. Feels better today. Spouse notes he has good days and bad. Changes made to parkinsons medications during admission. Seem to be helping. Has a few scrapes and skin tears that are healing. No other bleeding. They have home health coming 2x daily at the moment. Interval Hx: Mr. Serrano presents today with his spouse. He reports feeling well today. Denies any new issues. States he has his good days and bad days. Denies any recent hospital admissions. ED visit in the last few weeks for a brief, sudden chest pain. Work up in ED without any concerning findings. No pain since. "It just felt weird" Spouse questioning if he needs to stay on eliquis. She notes that pt had holter monitor for 2 weeks, she was told that it did not show any episodes of afib. No current access to [facility] notes or clinical information. With patients hx of falls recommend that they reach out to cardiology office to see if necessary to continue. Denies new aches or pains. No new issues. No changes in bowel or bladder habits.Still having issues with diarrhea, urgency. Has not utilized antidiarrheals. No rash or skin changes. Denies bleeding or bruising. Spending >50% day in recliner. PAST MEDICAL HISTORY Diagnosis Date 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) 12/02/2023 Cardiomyopathy in other diseases classified elsewhere CKD (chronic kidney disease) 09/16/2017 Diabetes mellitus without mention of complication Diabetes mellitus Diverticulosis of colon (without mention of hemorrhage) 07/13/2005 Essential hypertension External hemorrhoids without mention of complication 07/13/2005 Hyperplasia of prostate Internal hemorrhoids without mention of complication 07/13/2005 Iron malabsorption (HCC) 12/02/2023 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 Splenic artery aneurysm repeat scans showed no change/not identified PAST SURGICAL HISTORY Procedure Laterality Date CHOLECYSTECTOMY COLONOSCOPY FLX DX W/COLLJ SPEC WHEN PFRMD 07/13/2005 COLONOSCOPY FLX DX W/COLLJ SPEC WHEN PFRMD 03/11/2015 Colonoscopy COLONOSCOPY SCREENING 11/12/2021 Dr Cano no repeat due to age ESOPHAGOGASTRODUODENOSCOPY TRANSORAL DIAGNOSTIC 03/11/2015 EGD PAST SURGICAL HISTORY OF 2020 Aortic Valve Replacement Current Outpatient Medications Medication Sig Dispense Refill sertraline (ZOLOFT) 50 mg tablet Take 1 tablet by mouth once daily. 90 tablet 3 LORazepam (ATIVAN) 0.5 mg Take 0.5 mg by mouth every 4 hours as needed. metFORMIN ER (GLUCOPHAGE XR) 500 mg 24 hr tablet Take 1 tablet by mouth two times a day before meals. 180 tablet 3 apixaban (ELIQUIS) 5 mg tab(s) Take 1/2 tablet by mouth two times a day 30 tablet 2 rivastigmine tartrate (EXELON) 1.5 mg capsule TAKE 1 CAPSULE BY MOUTH 2 TIMES A DAY WITH MEALS 135 capsule 3 SITagliptin phosphate (JANUVIA) 50 mg tablet Take 1 tablet by mouth once daily. 90 tablet 3 tamsulosin (FLOMAX) 0.4 mg Take 2 capsules by mouth once daily. 180 capsule 3 metoprolol succinate ER (TOPROL XL) 50 mg 24 hr tablet take 1 tablet by mouth 2 times a day 90 tablet 3 ferrous gluconate 256 mg (28 mg iron) tab Take 1 tablet by mouth two times a day. 180 tablet 1 folic acid 1 mg tablet Take 1 tablet by mouth once daily. 30 tablet 11 gabapentin (NEURONTIN) 300 mg capsule Take 1 capsule by mouth two times a day. 60 capsule 11 atorvastatin (LIPITOR) 40 mg tablet Take 1 tablet by mouth daily at bedtime. For cholesterol. 90 tablet 3 furosemide (LASIX) 40 mg tablet Take 40 mg by mouth once daily. cyanocobalamin (VITAMIN B-12) 1,000 mcg tab Take 1 tablet by mouth once daily. 30 tablet 11 blood sugar diagnostic (BLOOD GLUCOSE TEST) test strip Test blood sugar(s) 1 times daily. Dx: Type 1 DM - Controlled E10.9 Insulin: No 50 Strip 11 LANCETS USE DIRECTED 100 0 No current facility-administered medications for this visit. ALLERGIES Allergen Reactions Mai Inhibitors Other: See Comments Hyperkalemia Atorvastatin Myalgia Pravastatin Myalgia [id number] Red* Myalgia FAMILY HISTORY Problem Relation Age of Onset Coronary Artery Disease Mother Coronary Artery Disease Father Coronary Artery Disease Brother Heart disease Brother Heart disease Maternal Grandmother Heart disease Maternal Grandfather Heart disease Paternal Grandmother Heart disease Paternal Grandfather Social History Tobacco Use Smoking status: Former Types: Cigars Smokeless tobacco: Never Tobacco comments: cigars-6 a day Vaping Use Vaping status: Never Used Substance Use Topics Alcohol use: No Drug use: No Review of Systems: Negative except as noted in HPI reviewed 10/04/2024 Physical Exam: BP 139/74 Pulse 55 Temp 96.6 Wt 272 lb 8 oz (123.6kg) SpO2 99% General: Age-appropriate well developed. Appears well. HEENT: Normocephalic, no sclera icterus Neck: Supple, no JVD. Chest: Clear bilaterally, no wheezes, not labored. Heart: Normal S1 and S2, no abnormal sounds Abdomen: Soft, nontender, Extremities: No cyanosis, clubbing, gross deformities. Neurological: Cranial nerves II through XII are intact bilaterally, no focal deficits. Skin: Warm and dry with no rashes Hematologic: no bruising or petechiae. Psychiatric: Alert and oriented x3. Emotional well-being assessment was performed. Pt denies depression, distress, and or problems with coping or adjustment. I have performed the physical exam today (10/04/2024) and have edited the note to correlate with current findings. Lab Results Component Value Date WBC 8.13 10/04/2024 HB 10.6 (L) 10/04/2024 MCV 87.4 10/04/2024 PLT 162 10/04/2024 Lab Results Component Value Date NA 137 09/18/2024 K 4.4 09/18/2024 CO2 24 09/18/2024 BUN 25 (H) 09/18/2024 CREAT 1.71 (H) 09/18/2024 TBILI 0.6 03/20/2024 TPROT 6.5 03/20/2024 ALB 3.5 (L) 03/20/2024 ALKPHOS 48 03/20/2024 ALT <5 (L) 03/20/2024 AST 8 (L) 03/20/2024 Ferritin Date Value Ref Range Status 07/10/2024 459.0 30.3 - 565.7 ng/mL Final 01/17/2024 566.0 (H) 30.3 - 565.7 ng/mL Final 11/03/2023 233.0 30.3 - 565.7 ng/mL Final 06/16/2023 270.0 30.3 - 565.7 ng/mL Final 11/25/2020 367.0 30.3 - 565.7 ng/mL Final Iron Date Value Ref Range Status 07/10/2024 54 41 - 186 ug/dL Final 03/20/2024 37 (L) 41 - 186 ug/dL Final 01/17/2024 47 41 - 186 ug/dL Final 11/03/2023 55 41 - 186 ug/dL Final 06/16/2023 47 41 - 186 ug/dL Final TIBC Date Value Ref Range Status 07/10/2024 207 (L) 232 - 386 ug/dL Final 03/20/2024 200 (L) 232 - 386 ug/dL Final 01/17/2024 235 232 - 386 ug/dL Final 11/03/2023 254 232 - 386 ug/dL Final 06/16/2023 281 232 - 386 ug/dL Final Transferrin Saturation Date Value Ref Range Status 07/10/2024 26.1 15.0 - 57.0 % Final 03/20/2024 18.5 15.0 - 57.0 % Final 01/17/2024 20.0 15.0 - 57.0 % Final 11/03/2023 21.7 15.0 - 57.0 % Final 06/16/2023 16.7 15.0 - 57.0 % Final Assessment and Plan: Mr. Serrano is a pleasant 84 year old gentleman presenting for anemia workup Anemia, CKD - dicussed potential causes of anemia with patient and spouse in detail not limited to kidney/liver dysfunction, bone marrow disorders, chronic blood loss, etc. Reviewed likely multifactorial, hx of chemotherapy, CKD significant contributor. - discussed possible need for bone marrow bx, pt and spouse acknowledged. Continue to hold off for now. - CBC stable, CMP reflective of CKD, SPEP and urine protein negative for M protein, k/l ratio normal. - completed IV iron sucrose 200mg x5 with minimal improvement in CBC. Last dose 12/2023. Iron studies remain stable - Improvement in counts with epo - HGB 10.6 - last 09/04/2024 - follow up with cardiology. No OSH records. Pt states that he was told that he does not have afib. Remains on eliquis. - no hx of clots. ? If discontinuation may also improve hgb. - continue to follow with neuro - continue to monitor labs. Repeat ferritin, iron studies every 3 months CBC, possible aranesp in 1 month. Yenny Bill APRN.IGNITER CAPPER I spent a total of 30 minutes on the date of the service which included preparing to see the patient, [id number] patient care, completing clinical documentation, obtaining and/or reviewing separately obtained history, and counseling and educating the patient/family/caregiver. Portions of this note including HPI, ROS, impression/plan may have been copied forward as to provide important historical information essential in contributing to medical decision making. Documentation has been reviewed and edited as necessary to support clinical decision making for today's visit and to reflect my own independent evaluation of this patient. documented in this encounter [facility] 09-25-2024 Note [facility] 09-25-2024 History of Presen t illness Narrative Patient presents with: 6 Month Exam HPI: Patient presents today for office visit for routine 6 month follow up. Hospitalized in [facility] back in April. Saw Gillian Flynn for follow up. See note: Discussed increased falls, anemia and dementia. Placed on Eliquis for Afib Newly DX Parkinson's with agitation Discussion about risk of falls Feeling better since home again Agitation with confusion- worse at night. has only used Ativan once. Not needing Confused. Was in hospital for 3 weeks over all the holiday Eating and drinking ok Bowels and bladder ok. Sleep poor No pain No falls. Memory slipping slightly but overall ok. No bleeding or bruising concerns. No new a fib seen on most recent scan Will be staying on it until cardiology appt. Eating and sleeping well. Has been having bouts of diarrhea. Started this last month. He suspects it was when nephrology increased his iron. Has improved since they cut back on his iron. Using loperamide 2 mg with relief. No bloody stools. No pain. Is on metformin. Will consider further work up if not back to his normal in the next week or two. Has been drinking more milk. Discussed limiting for now. Seen in [place] on 09/03. [place] a jolt with left arm pain. ACS ruled out. Had monitor on while there. Sees [facility] next month. Has already discussed it with cardiology. Seeing nephrology, hematology, and neurology. Sees podiatry. No chest pain Breathing is stable. IRINEO: had not been wearing it since in hospital. Encouraged to use it. Has some chronic edema. Sleeps in the chair. Wears compression hose. No weight gain. A1c is slightly higher. They had stopped his amaryl. Sugars are acceptable at his age. Will follow. Sertraline is doing well over all. Latest Ref Rng 09/18/2024 Glucose 74 - 99 mg/dL 171 (H) BUN 9 - 24 mg/dL 25 (H) Creatinine 0.73 - 1.22 mg/dL 1.71 (H) Sodium 136 - 144 mmol/L 137 Potassium 3.7 - 5.1 mmol/L 4.4 Chloride 98 - 107 mmol/L 101 CO2 22 - 30 mmol/L 24 Anion Gap 8 - 15 mmol/L 12 Calcium 8.5 - 10.2 mg/dL 9.1 eGFR >=60 mL/min/1.73m 39 (L) Hemoglobin A1C 4.3 - 5.6 % 7.5 (H) Estimated Average Glucose mg/dL 169 MEDICATIONS: Current Outpatient Medications Medication Sig sertraline (ZOLOFT) 50 mg tablet Take 1 tablet by mouth once daily. LORazepam (ATIVAN) 0.5 mg Take 0.5 mg by mouth every 4 hours as needed. metFORMIN ER (GLUCOPHAGE XR) 500 mg 24 hr tablet Take 1 tablet by mouth two times a day before meals. apixaban (ELIQUIS) 5 mg tab(s) Take 1/2 tablet by mouth two times a day rivastigmine tartrate (EXELON) 1.5 mg capsule TAKE 1 CAPSULE BY MOUTH 2 TIMES A DAY WITH MEALS SITagliptin phosphate (JANUVIA) 50 mg tablet Take 1 tablet by mouth once daily. tamsulosin (FLOMAX) 0.4 mg Take 2 capsules by mouth once daily. metoprolol succinate ER (TOPROL XL) 50 mg 24 hr tablet take 1 tablet by mouth 2 times a day ferrous gluconate 256 mg (28 mg iron) tab Take 1 tablet by mouth two times a day. folic acid 1 mg tablet Take 1 tablet by mouth once daily. gabapentin (NEURONTIN) 300 mg capsule Take 1 capsule by mouth two times a day. atorvastatin (LIPITOR) 40 mg tablet Take 1 tablet by mouth daily at bedtime. For cholesterol. furosemide (LASIX) 40 mg tablet Take 40 mg by mouth once daily. cyanocobalamin (VITAMIN B-12) 1,000 mcg tab Take 1 tablet by mouth once daily. blood sugar diagnostic (BLOOD GLUCOSE TEST) test strip Test blood sugar(s) 1 times daily. Dx: Type 1 DM - Controlled E10.9 Insulin: No LANCETS USE DIRECTED cholecalciferol, vitamin D3, (VITAMIN D3 ORAL) Take 1 tablet by mouth once daily. (Patient not taking: Reported on 07/10/2024) glimepiride (AMARYL) 4 mg tablet Take 1 tablet by mouth two times a day with meals. (Patient not taking: Reported on 09/25/2024) No current facility-administered medications for this visit. ALLERGIES: ALLERGIES Allergen Reactions Mai Inhibitors Other: See Comments Hyperkalemia Atorvastatin Myalgia Pravastatin Myalgia Vhkevgg-Eop-Fkf Red* Myalgia PAST MEDICAL HISTORY Diagnosis Date 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) 12/02/2023 Cardiomyopathy in other diseases classified elsewhere CKD (chronic kidney disease) 09/16/2017 Diabetes mellitus without mention of complication Diabetes mellitus Diverticulosis of colon (without mention of hemorrhage) 07/13/2005 Essential hypertension External hemorrhoids without mention of complication 07/13/2005 Hyperplasia of prostate Internal hemorrhoids without mention of complication 07/13/2005 Iron malabsorption (HCC) 12/02/2023 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 Splenic artery aneurysm repeat scans showed no change/not identified PAST SURGICAL HISTORY Procedure Laterality Date CHOLECYSTECTOMY COLONOSCOPY FLX DX W/COLLJ SPEC WHEN PFRMD 07/13/2005 COLONOSCOPY FLX DX W/COLLJ SPEC WHEN PFRMD 03/11/2015 Colonoscopy COLONOSCOPY SCREENING 11/12/2021 Dr Cano no repeat due to age ESOPHAGOGASTRODUODENOSCOPY TRANSORAL DIAGNOSTIC 03/11/2015 EGD PAST SURGICAL HISTORY OF 2020 Aortic Valve Replacement FAMILY HISTORY Problem Relation Age of Onset Coronary Artery Disease Mother Coronary Artery Disease Father Coronary Artery Disease Brother Heart disease Brother Heart disease Maternal Grandmother Heart disease Maternal Grandfather Heart disease Paternal Grandmother Heart disease Paternal Grandfather Social History Tobacco Use Smoking status: Former Types: Cigars Smokeless tobacco: Never Tobacco comments: cigars-6 a day Vaping Use Vaping status: Never Used Substance Use Topics Alcohol use: No Drug use: No Reviewed current medications, allergies, past medical history, surgical history, family history and social history today. REVIEW OF SYSTEMS All other reviewed and negative other than HPI. HEALTH MAINTENANCE: Reviewed health maintenance issues today and recommended the following in detail. Shingrix Vaccine(1 of 2) Never done Advance Directive Discussion due on 2024 Diabetic Foot Exam -will see podiatry. VITALS: BP 102/60 Pulse (!) 58 Ht 177.8 cm (5' 10") Wt 126.2 kg (278 lb 3.2 oz) SpO2 97% BMI 39.92 kg/m Last 4 Encounter Wt Readings: Date: Wt: 09/25/2024 126.2 kg (278 lb 3.2 oz) 09/04/2024 127 kg (280 lb) 07/10/2024 127 kg (280 lb) 05/29/2024 125.2 kg (276 lb) PHYSICAL EXAMINATION: General appearance: Well appearing, alert, in no acute distress, well-hydrated, well nourished. and Wheelchair Skin: Skin color, texture, turgor normal, no suspicious rashes or lesions Head: Normocephalic, no masses, lesions, tenderness or abnormalities Lungs: Lungs clear to auscultation. No wheezing, rhonchi, rales Heart: RRR without murmur, gallop, or rubs. No ectopy Abdomen: Normal abdominal exam, Abdomen soft, non-tender. Bowel sounds normal. No masses, organomegaly Extremities: No deformities, one plus edema, skin discoloration, clubbing or cyanosis. Good capillary refill. ASSESSMENT/PLAN: 1. Tremor, essential - ICD9: 333.1, ICD10: G25.0 (primary diagnosis) - stable. 2. Parkinson's disease, unspecified whether dyskinesia present, unspecified whether manifestations fluctuate (HCC) - ICD9: 332.0, ICD10: G20.A1 - per neuro 3. Essential hypertension, benign - ICD9: 401.1, ICD10: I10 - Controlled - Continue current medications 4. Mixed hyperlipidemia - ICD9: 272.2, ICD10: E78.2 - Controlled - Continue current medications 5. Aortic valve stenosis, etiology of cardiac valve disease unspecified - ICD9: 424.1, ICD10: I35.0 - stable. 6. Hypertensive kidney disease with stage 3 chronic kidney disease, 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) - ICD9: 403.90, 585.3, ICD10: I12.9, N18.30 - Controlled - Continue current medications 7. Coronary artery disease involving [place] coronary artery of [place] heart without angina pectoris - ICD9: 414.01, ICD10: I25.10 - per cardiology. 8. LV dysfunction - ICD9: 429.9, ICD10: I51.9 - per cardiology. 9. IRINEO (obstructive sleep apnea) - ICD9: 327.23, ICD10: G47.33 - encouraged to use. 10. Anemia due to vitamin B12 deficiency, unspecified B12 deficiency type - ICD9: 281.1, ICD10: D51.9 - per hematology 11. Anemia due to folic acid deficiency, unspecified deficiency type - ICD9: 281.2, ICD10: D52.9 - per hematology. 12. Iron malabsorption (HCC) - ICD9: 579.8, ICD10: K90.9 - continue low dosed iron. 13. Stage 3 chronic kidney disease, 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) - ICD9: 585.3, ICD10: N18.30 - per nephrology. - BASIC METABOLIC PANEL 14. Type 2 diabetes mellitus with stage 3 chronic kidney disease, without long-term current use of insulin, 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) - ICD9: 250.40, 585.3, ICD10: E11.22, N18.30 - follow sugars since now off of amaryl. Acceptable given age - HEMOGLOBIN A1C 15. Microalbuminuria - ICD9: 791.0, ICD10: R80.9 - stable. 16. Lymphoma in remission - ICD9: 202.80, ICD10: C85.9A - doing well. 17. Anxiety with depression - ICD9: 300.4, ICD10: F41.8 - doing well. 18. TIA (transient ischemic attack) - ICD9: 435.9, ICD10: G45.9 No new issues. 19. Class 2 obesity with body mass index (BMI) of 39.0 to 39.9 in adult, unspecified obesity type, unspecified whether serious comorbidity present - ICD9: 278.00, V85.39, ICD10: E66.812, Z68.39 - stable. 20. Diarrhea, unspecified type - ICD9: 787.91, ICD10: R19.7 - limit dairy. Red flags for re-assessment reviewed with patient in detail. Call if symptoms worsen at all or if not better in one to two weeks Consider gi if continues. Arsh Polk MD documented in this encounter [facility] 09-04-2024 Note [facility] 08-09-2024 Evaluation note Diagnosis Onset Date Resolution Atherosclerotic heart disease of [place] coronary artery without angina pectoris chronic August 09, 2024 12:45pm CHF (congestive heart failure), NYHA class III chronic August 09, 2024 12:45pm History of transcatheter aortic valve replacement (TAVR) October 16, 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 August 09, 2024 12:45pm HLD (hyperlipidemia) chronic 2024 12:45pm Paroxysmal atrial fibrillation with RVR chronic August 09, 2024 12:45pm Parkinson disease acute November 11:06am Atherosclerotic heart disease of [place] coronary artery without angina pectoris chronic November 14, 2024 11:06am CHF (congestive heart failure), NYHA class III chronic November 14, 2024 11:06am History of transcatheter aortic valve replacement (TAVR) October 16, 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 November 14, 2024 11:06am HLD (hyperlipidemia) chronic November 14, 2024 11:06am Paroxysmal atrial fibrillation with RVR chronic November 14, 2024 11:06am [facility] Work Phone: 1(360) 610-783703-31-2025 Telephone encounter Note* Telephone Encounter - Lizzette Restrepo LPN - 08/07/2024 1:52 PM EDT Prescription Refill Information The patient has been identified by name and date of : Yes Caregiver verified no other encounters exist for this prescription request: Yes Caregiver confirmed with patient/requestor that no other refills are due, in the near future, with this provider at this time: Yes The last office visit in the department: 06/01/24 Does the patient have a future office visit with this provider/department: Yes Requested Prescriptions Pending Prescriptions Disp Refills sertraline (ZOLOFT) 50 mg tablet 90 tablet 3 Sig: Take 1 tablet by mouth once daily. Lizzette Restrepo LPN August 07, 2024 1:52 PM [facility]03-31-2025 Miscellaneous Notes* Telephone Encounter - Lizzette Restrepo LPN - 08/07/2024 1:52 PM EDT Prescription Refill Information The patient has been identified by name and date of : Yes Caregiver verified no other encounters exist for this prescription request: Yes Caregiver confirmed with patient/requestor that no other refills are due, in the near future, with this provider at this time: Yes The last office visit in the department: 06/01/24 Does the patient have a future office visit with this provider/department: Yes Requested Prescriptions Pending Prescriptions Disp Refills sertraline (ZOLOFT) 50 mg tablet 90 tablet 3 Sig: Take 1 tablet by mouth once daily. Lizzette Restrepo LPN August 07, 2024 1:52 PM [facility]25 NoteHNO ID: [id number] Author: MARAL BRUSH LPN Service: ? Author Type: LICENSED NURSE Type: Progress Notes Filed: 08/07/2024 11:13 Note Text: Injection deferred parameters not met HGB 10.1 [facility] History of Present illness Narrative* Maral Brush LPN - 08/07/2024 11:07 AM EDT Injection deferred parameters not met HGB 10.1 Maral S HOLLIE Brush documented [facility] Evaluation note* Diagnosis Anemia due to stage 3a chronic kidney disease (HCC) [N18.31, D63.1]- Primary 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) documented in this encounter [facility]03-17-2025 Telephone encounter Note* Telephone Encounter - Mariola Mckeon - 07/24/2024 3:29 PM EDT Thank you! [facility] Work Phone: [phone] Miscellaneous Notes* Telephone Encounter - Mariola Mckeon - 07/24/2024 3:29 PM EDT Thank you! * Telephone Encounter - Yenny Bill - 07/24/2024 2:03 PM EDT Monthly is correct * Telephone Encounter - Mariola Mckeon - 07/24/2024 1:45 PM EDT Please advise if Aranesp is QMO or Q2WK. 08/07 was put in for QMO. I updated future appts, however, am now questioning if it is Q2WK. [facility] Telephone encounter Note * Telephone Encounter - Yenny Bill - 07/24/2024 2:03 PM EDT Monthly is correct [facility] Work Phone: 1(455) 852-830603-17-2025 Telephone encounter Note* Telephone Encounter - Mariola Mckeon - 07/24/2024 1:45 PM EDT Please advise if Aranesp is QMO or Q2WK. 08/07 was put in for QMO. I updated future appts, however, am now questioning if it is Q2WK. [facility] History of Present illness Narrative* Liliam Holt RN - 07/13/2024 11:49 AM EST CDM ENROLLMENT Provider Action / FYI: Patient identified by name and date of . Discussed care with patient. Program Details Chronic Disease Management Status: Enrolled Effective Dates: 07/13/2024 - present Responsible Staff: Liliam Holt, RN Support and Services: Hypertension, Diabetes, Chronic Kidney Disease (CKD) Assessments CDM Assessment Medications: Do you have any questions about taking your medications or which medications you should be taking?:No Do you need any medication refills at this time, including any of the medication you might take only when needed?: No Social: It can be normal to feel anxious or down during a time like this. Would you like to talk to a mental health professional about how you have been feeling?: No Symptoms: Are you experiencing any new or worsening symptoms that you need to talk about today?: No ADLs Patients can perform the following activities without help: Dressing: Yes Bathing: No Doing laundry: No Climbing a flight of stairs: No Walking briskly: No Instrumental activities of daily living Do you drive a car?: No Do you need help from others to take care of things inside the house, for example: laundry, house cleaning, preparing meals?: Yes Did you have the help you needed?: Yes Do you need help from others with errands outside the house, for example: shopping for groceries orclothes, going medical appointments?: Yes Did you have the help you needed?: Yes Fall Risk One or more falls in the last year:: Yes Any near falls in the last year?: No Advised to use a cane or walker to get around safely:: Yes (uses a walker and wheelchair) Feels unsteady when walking:: Yes Steadies self on furniture while walking at home:: No Worried about falling:: Yes Needs to push with hands when rising from a chair:: Yes Has trouble stepping up onto a curb:: Yes Often has to parisi to the toilet:: Yes Has lost some feeling in feet:: Yes Takes medicine that makes him/her feel lightheaded or more tired than usual:: Yes Takes medicine to sleep or improve mood:: Yes Fall risk factors:: Visual difficulties SDOH Financial Resource Strain How hard is it for you to pay for the very basics like food, housing, medical care, and heating?: Not hard at all Housing Stability In the last 12 months, was there a time when you were not able to pay the mortgage or rent on time?: No At any time in the past 12 months, were you homeless or living in a longterm (including now)?: No Transportation Needs In the past 12 months, has lack of transportation kept you from medical appointments or from getting medications?: No In the past 12 months, has lack of transportation kept you from meetings, work, or from getting things needed for daily living?: No Food Insecurity Within the past 12 months, you worried that your food would run out before you got the money to buymore.: Never true Within the past 12 months, the food you bought just didn't last and you didn't have money to get more.: Never true Utilities In the past 12 months has the [employer], gas, oil, or water [employer] threatened to shut off services in your home?: No Tobacco Use Patient reports that he has quit smoking. His smoking use included cigars. He has never used smokeless tobacco. Interventions The following were addressed during this visit: - Initial enrollment outreach - Month 3: Schedule/Order BMP Lab - Month 1: Schedule/Order HbA1C Lab - Month 1: Schedule/Order Lipid Panel Lab - Month 1: Schedule Diabetes Eye Exam - Month 3: Schedule/Order Urine Albumin Creatinine lab - Schedule Biannual PCP Appointment - Develop a Patient-Stated Goal (add to Target comments) Liliam Holt RN July 13, 2024 11:52 AM documented in this encounterCh[facility] Telephone encounter Note * Telephone Encounter - Liliam Holt RN - 07/13/2024 11:14 AM EST MyChart message sent [facility]03-06-2025 Miscellaneous Notes* Telephone Encounter - Liliam Holt RN - 07/13/2024 11:14 AM EST MyChart message sent documented in this encounterChillic[facility]03-03-[facility] History of Present illness Narrative* Maral Brush LPN - 07/10/2024 11:06 AM EST aranesp injection administered, right arm, tolerated well, no immediate adverse reactions noted. See office notes Maral Brush LPN documented in this encounterChillicothe [facility]03-03-2025 [facility] History of Present illness Narrative* Yenny Bill - 07/10/2024 10:42 AM EST Progress Note Axel Serrano 1940 Encounter date: 07/10/2024 HPI: Jessicaisabella Pacheco Yue is a 84 year old gentleman with PMHx o T2DM, Parkinson's, HTN, HLD, aortic stenosis, CKD, IRINEO, TIA, anemia, and DLBCL s/p CALGB protocol 37934: 6 cycles R-EPOCH until September 2006 and consolidation XRT at [facility] (Dr. Winn records in care everywhere), presenting as referral from his PCP, Dr. Polk for further anemia workup. Hgb has been gradually decreasing over the last year orso. Thorough workup for anemia completed. Folate deficiency corrected. No iron or b12 deficiency. Denies new aches or pains today. Chronic back pain stable. Some R side rib pain s/p fall in shower into toilet resulting in rib fx >10 years ago. Denies new lumps or bumps. No SOB, CP, or palpitations. No DOVER, dizziness, or changes in vision. Denies N/V/C/D. No changes in bowel or bladder habits.No hematuria, hematochezia, occult stool negative. No rash or skin changes. Denies recent bleeding or bruising. Hx of blood tx during clinical trial. No IV iron. Denies unintentional weight loss. 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 Some chemical exposure to round up (household use). BM bx in the past at [facility] while undergoing treatment for DLBCL. Denies know family hx of cancer or blood disorders. Last scope [address] Cano, declines additional. Recent fall, tripped on floor mat walking into a restaurant. Fractured humerus well healed Recent hospitalization for confusion Apr 27 - May 19. Feels better today. Spouse notes he has good days and bad. Changes made to parkinsons medications during admission. Seem to be helping. Has a fewscrapes and skin tears that are healing. No other bleeding. They have home health coming 2x daily at the moment. Interval Hx: Mr. Serrano presents today with his spouse. He reports feeling well today. Denies any new issues. Pt notes that his arm was hurting more today than it has in some time after recent fracture. A little achy. Denies recent illness, fevers, chills or NS. No SOB, CP, or palpitations. Endorses ISSA. Spouse feltthat PT really helped. No DOVER, dizziness, or changes in vision. Denies N/V/C/D. No changes in bowel or bladder habits. No rash or skin changes. Denies bleeding or bruising. Spending >50% day in recliner. 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 metFORMIN ER (GLUCOPHAGE XR) 500 mg 24 hr tablet Take 1 tablet by mouth two times a day before meals. 180 tablet 3 apixaban (ELIQUIS) 5 mg tab(s) Take 1/2 tablet by mouth two times a day 30 tablet 2 rivastigmine tartrate (EXELON) 1.5 mg capsule TAKE 1 CAPSULE BY MOUTH 2 TIMES A DAY WITH MEALS 135 capsule 3 SITagliptin phosphate (JANUVIA) 50 mg tablet Take 1 tablet by mouth once daily. 90 tablet 3 tamsulosin (FLOMAX) 0.4 mg Take 2 capsules by mouth once daily. 180 capsule 3 metoprolol succinate ER (TOPROL XL) 50 mg 24 hr tablet take 1 tablet by mouth 2 times a day 90 tablet 3 ferrous gluconate 256 mg (28 mg iron) tab Take 1 tablet by mouth two times a day. 180 tablet 1 folic acid 1 mg tablet Take 1 tablet by mouth once daily. 30 tablet 11 gabapentin (NEURONTIN) 300 mg capsule Take 1 capsule by mouth two times a day. 60 capsule 11 atorvastatin (LIPITOR) 40 mg tablet Take 1 tablet by mouth daily at bedtime. For cholesterol. 90 tablet 3 sertraline (ZOLOFT) 50 mg tablet Take 1 tablet by mouth once daily. 90 tablet 3 furosemide (LASIX) 40 mg tablet Take 40 mg by mouth once daily. cyanocobalamin (VITAMIN B-12) 1,000 mcg tab Take 1 tablet by mouth once daily. 30 tablet 11 cholecalciferol, vitamin D3, (VITAMIN D3 ORAL) Take 1 tablet by mouth once daily. (Patient not taking: Reported on 07/10/2024) glimepiride (AMARYL) 4 mg tablet Take 1 tablet by mouth two times a day with meals. 180 tablet 3 blood sugar diagnostic (BLOOD GLUCOSE TEST) test strip Test blood sugar(s) 1 times daily. Dx: Type 1 DM - Controlled E10.9 Insulin: No 50 Strip 11 LANCETS USE DIRECTED 100 0 No current facility-administered medications for this visit. ALLERGIES Allergen Reactions Mai Inhibitors Other: See Comments Hyperkalemia Atorvastatin Myalgia Pravastatin Myalgia Jbrqohi-Ivz-Tlm Red* Myalgia FAMILY HISTORY Problem Relation Age of Onset Coronary Artery Disease Mother Coronary Artery Disease Father Coronary Artery Disease Brother Heart disease Brother Heart disease Maternal Grandmother Heart disease Maternal Grandfather Heart disease Paternal Grandmother Heart disease Paternal Grandfather Social History Tobacco Use Smoking status: Former Types: Cigars Smokeless tobacco: Never Tobacco comments: cigars-6 a day Vaping Use Vaping status: Never Used Substance Use Topics Alcohol use: No Drug use: No Review of Systems: Negative except as noted in HPI reviewed 07/10/2024 Physical Exam: BP 164/64 Pulse 55 Temp (Src) 97.8 (Temporal) Wt 280 lb (127.0kg) SpO2 98% General: Age-appropriate well developed. Appears well. HEENT: Normocephalic, no sclera icterus Neck: Supple, no JVD. Chest: Clear bilaterally, no wheezes, not labored. Heart: Normal S1 and S2, no abnormal sounds Abdomen: Soft, nontender, Extremities: No cyanosis, clubbing, gross deformities. Neurological: Cranial nerves II through XII are intact bilaterally, no focal deficits. Skin: Warm and dry with no rashes Hematologic: no bruising or petechiae. Psychiatric: Alert and oriented x3. Emotional well-being assessment was performed. Pt denies depression, distress, and or problems with coping or adjustment. I have performed the physical exam today (07/10/2024) and have edited the note to correlate with current findings. Lab Results Component Value Date WBC 8.54 07/10/2024 HB 9.9 (L) 07/10/2024 MCV 90.2 07/10/2024 PLT 162 07/10/2024 Lab Results Component Value Date NA 138 01/17/2024 K 5.0 01/17/2024 CO2 23 01/17/2024 BUN 30 (H) 01/17/2024 CREAT 1.86 (H) 01/17/2024 TBILI 0.6 03/20/2024 TPROT 6.5 03/20/2024 ALB 3.5 (L) 03/20/2024 ALKPHOS 48 03/20/2024 ALT <5 (L) 03/20/2024 AST 8 (L) 03/20/2024 Latest Reference Range & Units 11/03/23 09:07 11/29/23 12:06 01/17/24 10:42 eGFR >=60 mL/min/1.73m 40 (L) 35 (L) Vitamin B12 232 - 1,245 pg/mL 941 Folate >4.7 ng/mL >20.0 Ferritin 30.3 - 565.7 ng/mL 233.0 566.0 (H) Iron 41 - 186 ug/dL 55 47 TIBC 232 - 386 ug/dL 254 235 Transferrin Saturation 15.0 - 57.0 % 21.7 20.0 (L): Data is abnormally low (H): Data is abnormally high Assessment and Plan: Mr. Serrano is a pleasant 84 year old gentleman presenting for anemia workup Anemia, CKD - dicussed potential causes of anemia with patient and spouse in detail not limited to kidney/liverdysfunction, bone marrow disorders, chronic blood loss, etc. Reviewed likely multifactorial, hx of chemotherapy, CKD significant contributor - discussed possible need for bone marrow bx, pt and spouse acknowledged. Continue to hold off for now. - CBC stable, CMP reflective of CKD, SPEP and urine protein negative for M protein, k/l ratio normal. - completed IV iron sucrose 200mg x5 with minimal improvement in CBC. Last dose 12/2023. Iron studies remain stable - Improvement in counts with epo - HGB 9.9 - injection today, last 04/17 - continue to follow with neuro - continue to monitor labs. Repeat ferritin, iron studies every 3 months CBC, possible aranesp in 1 month. Yenny Bill APRN.IGNITER CAPPER I spent a total of 30 minutes on the date of the service which included preparing to see the patient, [id number] patient care, completing clinical documentation, obtaining and/or reviewing separately obtained history, and counseling and educating the patient/family/caregiver. Portions of this note including HPI, ROS, impression/plan may have been copied forward as to provide important historical information essential in contributing to medical decision making. Documentation has been reviewed and edited as necessary to support clinical decision making for today's visit and to reflect my own independent evaluation of this patient. documented in this encounterCh[facility]02-17-2025 Telephone encounter Note * Telephone Encounter - Kaylee Villa LPN - 06/26/2024 9:51 AM EST Patient's is aware his Hgb was 11.2 last checked. Okay to wait until 07/10/2024 fo next injection. Kaylee Villa LPN [facility]02-17-2025 Miscellaneous Notes* Telephone Encounter - Kaylee Villa LPN - 06/26/2024 9:51 AM EST Patient's is aware his Hgb was 11.2 last checked. Okay to wait until 07/10/2024 fo next injection. Kaylee Villa LPN * Telephone Encounter - Mariola Mckeon - 06/26/2024 9:41 AM EST Spouse called stating patient is ill and will not be in for lab/inj today. She is asking if it is okay to wait until next appointment on 07/10. Please advise. documented in this encounterChillic[facility]02-17-2025 Telephone encounter Note * Telephone Encounter - Mariola Mckeon - 06/26/2024 9:41 AM EST Spouse called stating patient is ill and will not be in for lab/inj today. She is asking if it is okay to wait until next appointment on 07/10. Please advise. [facility] Work Phone: [phone] Telephone encounter Note* Telephone Encounter - Mery Helm RN - 06/20/2024 4:24 PM EST Phoned Yun and given pcp verbal approval. [facility]02-11-[facility] Miscellaneous Notes* Telephone Encounter - Mery Helm RN - 06/20/2024 4:24 PM EST Phoned Yun and given pcp verbal approval. * Telephone Encounter - Arsh Polk MD - 06/20/2024 3:14 PM EST Ok to do * Telephone Encounter - Lulu Calabrese LPN - 06/20/2024 3:08 PM EST Yun with [facility], nursing called to let you know she was going to d/c pt today from nursing but noticed pt has an open wound on his buttock. Yun reports it looks like a shearing injury because theskin is blanchable. Yun advised pt to get a cushion for his chair and nursing is going to continue to see pt to monitor the wound. Will see pt 1 x a week for 1 week, then 1 time week for 2 weeks. Yun asking for a verbal order to put a skin protectant cream to the area and a for dressing over it to protect the wound. Please advise Yun with a verbal order. Lulu Calabrese LPN documented in this encounterChillicothe [facility]02-11-2025 Telephone encounter Note * Telephone Encounter - Arsh Polk MD - 06/20/2024 3:14 PM EST Ok to do [facility]02-11-20[facility] Telephone encounter Note* Telephone Encounter - Lulu Calabrese LPN - 06/20/2024 3:08 PM EST Yun with [facility], nursing called to let you know she was going to d/c pt today from nursing but noticed pt has an open wound on his buttock. Yun reports it looks like a shearing injury because theskin is blanchable. Yun advised pt to get a cushion for his chair and nursing is going to continue to see pt to monitor the wound. Will see pt 1 x a week for 1 week, then 1 time week for 2 weeks. Yun asking for a verbal order to put a skin protectant cream to the area and a for dressing over it to protect the wound. Please advise Yun with a verbal order. Lulu Calabrese LPN [facility]01-29-20[facility] Telephone encounter Note* Telephone Encounter - Kaia Liu MA - 06/07/2024 3:37 PM EST Placed call to Yun with home care. No answer. Left detailed message on her confidential line giving verbal ok for orders below. Advised her to call back with any further questions and/or concerns. Kaia Liu MA [facility]01-29-2025 Miscellaneous Notes* Telephone Encounter - Kaia Liu MA - 06/07/2024 3:37 PM EST Placed call to Yun with home care. No answer. Left detailed message on her confidential line giving verbal ok for orders below. Advised her to call back with any further questions and/or concerns. Kaia Liu MA * Telephone Encounter - Arsh Polk MD - 06/07/2024 3:14 PM EST Ok for ua and c and s, wound care and additional orders as below. Take lasix 40 mg extra once a day for two days, if continues or worsens, needs seen * Telephone Encounter - Mery Helm RN - 06/07/2024 2:53 PM EST Yun- [facility]- reports she saw patient today and has a couple of concerns: 1) Pt has increased edema in gwendolyn legs from knees to toes. Today 2+ pitting. Pt has a little reddness but no concerns for cellulitis. Pt also has clear drainage near right ankle area and Yun placed adaptic to area covered with ABD and instructed to keep clean and change daily or as needed pending drainage. Will need wound care order from pcp. 2) Pt has hx of heart failure and takes lasix 40 mg daily. Asking if pcp wants to increase this dose or add something else for the increased edema? 3) Yun would like to add nurse visits to the POC: would like to do xtra 1 x visit this week and next week, in addition to the already scheduled visit each week, to equal 2 visits each week by nursing. Would need verbal order for this. 4) Pt is c/o burning with urination. No other s/s. Asking if pcp wants nursing to collect a UACNS at their next visit on Wednesday? Please phone Yun with verbal: [phone] Patient uses [facility] in [place]. documented in this encounterChillic[facility]01-29-2025 Telephone encounter Note * Telephone Encounter - Arsh Polk MD - 06/07/2024 3:14 PM EST Ok for ua and c and s, wound care and additional orders as below. Take lasix 40 mg extra once a day for two days, if continues or worsens, needs seen [facility]01-29-2025 Telephone encounter Note* Telephone Encounter - Mery Helm RN - 06/07/2024 2:53 PM EST Yun- [facility]- reports she saw patient today and has a couple of concerns: 1) Pt has increased edema in gwendolyn legs from knees to toes. Today 2+ pitting. Pt has a little reddness but no concerns for cellulitis. Pt also has clear drainage near right ankle area and Yun placed adaptic to area covered with ABD and instructed to keep clean and change daily or as needed pending drainage. Will need wound care order from pcp. 2) Pt has hx of heart failure and takes lasix 40 mg daily. Asking if pcp wants to increase this dose or add something else for the increased edema? 3) Yun would like to add nurse visits to the POC: would like to do xtra 1 x visit this week and next week, in addition to the already scheduled visit each week, to equal 2 visits each week by nursing. Would need verbal order for this. 4) Pt is c/o burning with urination. No other s/s. Asking if pcp wants nursing to collect a UACNS at their next visit on Wednesday? Please phone Yun with verbal: [phone] Patient uses [facility] in [place]. [facility]01-24-2025 Telephone encounter Note* Telephone Encounter - Romina Asher LPN - 06/02/2024 11:17 AM EST Prescription Refill Information The patient has been identified by name and date of : Yes Caregiver verified no other encounters exist for this prescription request: Yes Caregiver confirmed with patient/requestor that no other refills are due, in the near future, with this provider at this time: Yes The last office visit in the department: 06/01/2024 Does the patient have a future office visit with this provider/department: Yes Requested Prescriptions Pending Prescriptions Disp Refills metFORMIN ER (GLUCOPHAGE XR) 500 mg 24 hr tablet 180 tablet 3 Sig: Take 1 tablet by mouth two times a day before meals. Romina Asher LPN June 02, 2024 11:17 AM [facility]01-24-2025 Miscellaneous Notes* Telephone Encounter - Romina Asher LPN - 06/02/2024 11:17 AM EST Prescription Refill Information The patient has been identified by name and date of : Yes Caregiver verified no other encounters exist for this prescription request: Yes Caregiver confirmed with patient/requestor that no other refills are due, in the near future, with this provider at this time: Yes The last office visit in the department: 06/01/2024 Does the patient have a future office visit with this provider/department: Yes Requested Prescriptions Pending Prescriptions Disp Refills metFORMIN ER (GLUCOPHAGE XR) 500 mg 24 hr tablet 180 tablet 3 Sig: Take 1 tablet by mouth two times a day before meals. Romina Asher LPN June 02, 2024 11:17 AM documented in this encounterChillicothe [facility]01-24-2025 Telephone encounter Note * Telephone Encounter - Eda Gabriel MSW - 06/02/2024 9:34 AM EST Sw spoke with patient spouse regarding patient home care assistance needs. Spouse reports that patient currently has [facility] that is coming out to see patient for home care. Sw noted [facility], [facility], and [facility] for home designer local options. Sw also noted [facility] and [facility] resource guide for home care, support group, and group home care information. Sw and spouse also discussed home delivered meal options. Spouse took down this [employer] direct number for any further questions . [facility]01-24-2025 Miscellaneous Notes* Telephone Encounter - Eda Gabriel MSW - 06/02/2024 9:34 AM EST Sw spoke with patient spouse regarding patient home care assistance needs. Spouse reports that patient currently has [facility] that is coming out to see patient for home care. Sw noted [facility], [facility], and [facility] for home designer local options. Sw also noted [facility] resource guide for home care, support group, and buttermaker helper care information. Sw and spouse also discussed home delivered meal options. Spouse took down this SW direct number for any further questions . documented in this encounterChillicothe [facility]01-23-2025 Instructions* Patient Instructions* Romina Flynn APRN.CNP - 06/01/2024 4:05 PM EST 1) Keep appt. With Dr. Polk in September 2) Make cardiology appt. About whether Xarelto is a good idea with falls and dementia 3) DME request printed for hospital bed and mattress/ fvlh-tje-vuh table and trapeze 4) wafer production worker consult for resources documented in this encounterChillicothe [facility]01-23-2025 [facility]01-[facility] History of Present illness Narrative* Romina Flynn APRN.CNP - 06/01/2024 3:29 PM EST This is a 84 year old male who presents today with: Patient presents with: Hospital F/U HISTORY OF PRESENT ILLNESS: Axel Serrano is a 84 year old male. Patient presents with: Hospital F/U Discussed increased falls, anemia and dementia. Placed on Eliquis for Afib Newly DX Parkinson's with agitation Discussion about risk of falls Feeling better since home again Agitation with confusion- worse at night. has only used Ativan once. Not needing Confused. Was in hospital for 3 weeks over all the holiday Eating and drinking ok Bowels and bladder ok. 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 Splenic artery aneurysm (HCC) repeat scans showed no change/not identified PAST SURGICAL HISTORY Procedure Laterality Date CHOLECYSTECTOMY COLONOSCOPY FLX DX W/COLLJ SPEC WHEN PFRMD 07/13/2005 COLONOSCOPY FLX DX W/COLLJ SPEC WHEN PFRMD 03/11/2015 Colonoscopy COLONOSCOPY SCREENING 11/12/2021 Dr Cano no repeat due to age ESOPHAGOGASTRODUODENOSCOPY TRANSORAL DIAGNOSTIC 03/11/2015 EGD PAST SURGICAL HISTORY OF 2020 Aortic Valve Replacement ALLERGIES Mai Inhibitors, Atorvastatin, Pravastatin, and Nfpnchi-Iak-Apn Reductase Inhibitors MEDICATIONS Current Outpatient Medications Medication Sig cholecalciferol, vitamin D3, (VITAMIN D3 ORAL) Take 1 tablet by mouth once daily. apixaban (ELIQUIS) 5 mg tab(s) Take 1/2 tablet by mouth two times a day LORazepam (ATIVAN) 0.5 mg TAKE 1 TABLET BY MOUTH EVERY 4 HOURS NEEDED FOR AGITATION AND RESTLESSNESS FOR 30 DAYS metoprolol succinate ER (TOPROL XL) 50 mg 24 hr tablet take 1 tablet by mouth 2 times a day rivastigmine tartrate (EXELON) 1.5 mg capsule TAKE 1 CAPSULE BY MOUTH 2 TIMES A DAY WITH MEALS ferrous gluconate 256 mg (28 mg iron) tab Take 1 tablet by mouth two times a day. folic acid 1 mg tablet Take 1 tablet by mouth once daily. gabapentin (NEURONTIN) 300 mg capsule Take 1 capsule by mouth two times a day. atorvastatin (LIPITOR) 40 mg tablet Take 1 tablet by mouth daily at bedtime. For cholesterol. tamsulosin (FLOMAX) 0.4 mg Take 2 capsules by mouth once daily. glimepiride (AMARYL) 4 mg tablet Take 1 tablet by mouth two times a day with meals. sertraline (ZOLOFT) 50 mg tablet Take 1 tablet by mouth once daily. SITagliptin phosphate (JANUVIA) 50 mg tablet Take 1 tablet by mouth once daily. metFORMIN ER (GLUCOPHAGE XR) 500 mg 24 hr tablet Take 1 tablet by mouth two times a day before meals. furosemide (LASIX) 40 mg tablet Take 40 mg by mouth once daily. cyanocobalamin (VITAMIN B-12) 1,000 mcg tab Take 1 tablet by mouth once daily. blood sugar diagnostic (BLOOD GLUCOSE TEST) test strip Test blood sugar(s) 1 times daily. Dx: Type 1 DM - Controlled E10.9 Insulin: No LANCETS USE DIRECTED No current facility-administered medications for this visit. FAMILY HISTORY Problem Relation Age of Onset Coronary Artery Disease Mother Coronary Artery Disease Father Coronary Artery Disease Brother Heart disease Brother Heart disease Maternal Grandmother Heart disease Maternal Grandfather Heart disease Paternal Grandmother Heart disease Paternal Grandfather Social History Tobacco Use Smoking status: Former Types: Cigars Smokeless tobacco: Never Tobacco comments: cigars-6 a day Vaping Use Vaping status: Never Used Substance Use Topics Alcohol use: No Drug use: No EXAM: BP 115/62 Pulse (!) 57 Temp 36.4 C (97.6 F) SpO2 97% PHYSICAL EXAM: Physical Exam Vitals reviewed. Constitutional: Appearance: Normal appearance. HENT: Head: Normocephalic. Cardiovascular: Rate and Rhythm: Normal rate and regular rhythm. Pulses: Normal pulses. Heart sounds: Murmur heard. Comments: Very distant heart sounds Pulmonary: Effort: Pulmonary effort is normal. Breath sounds: Normal breath sounds. Abdominal: General: Bowel sounds are normal. Palpations: Abdomen is soft. Tenderness: There is no abdominal tenderness. There is no guarding or rebound. Musculoskeletal: General: Normal range of motion. Right lower leg: Edema present. Left lower leg: Edema present. Comments: Trace edema in hands and feet Presents in wheelchair, unable to walk any distance and falls Skin: General: Skin is warm and dry. Findings: Bruising present. Neurological: Mental Status: He is alert and oriented to person, place, and time. Psychiatric: Mood and Affect: Mood normal. Behavior: Behavior normal. DM: Reports overall feeling well. Medication side effects: No. Home sugar checks: uncertain Hypoglycemic spells: No. Watching diet: No. Unexpected weight loss: No. Polyuria, polydipsia: No. Vision Changes: Occ blurred Foot lesions or numbness or pain: Yes. LABS: ASSESSMENT/PLAN: 1. Parkinson's disease with dyskinesia, unspecified whether manifestations fluctuate (HCC) - ICD9: 332.0, ICD10: G20.B1 (primary diagnosis) New diagnosis - RIVASTIGMINE 1.5 MG CAPSULE - DME SUPPLY OR ACCESSORY, NOS- RX for hospital bed - PRIMARY CARE SOCIAL WORK CONSULT 2. Anxiety - ICD9: 300.00, ICD10: F41.9 Ongoing 3. Diabetic polyneuropathy associated with type 2 diabetes mellitus (HCC) - ICD9: 250.60, 357.2, ICD10: E11.42 - Control undetermined, due for labs - Continue current medications - SITAGLIPTIN PHOSPHATE 50 MG TABLET 4. Benign prostatic hyperplasia without lower urinary tract symptoms - ICD9: 600.00, ICD10: N40.0 Stable - TAMSULOSIN 0.4 MG CAPSULE 5. Paroxysmal atrial fibrillation (HCC) - ICD9: 427.31, ICD10: I48.0 Uncertain about DOAC with falls and hallucinations/ agitation - APIXABAN 5 MG TABLET- 1/2 tab 2 x day - METOPROLOL SUCCINATE ER 50 MG TABLET,EXTENDED RELEASE 24 HR - DME SUPPLY OR ACCESSORY, NOS - PRIMARY CARE SOCIAL WORK CONSULT 6. Age-related physical debility - ICD9: 797, ICD10: R54 Progressive - DME SUPPLY OR ACCESSORY, NOS - PRIMARY CARE SOCIAL WORK CONSULT Discussed treatment plan and patient voices understanding. Patient's questions answered appropriately. Medications and potential side effects were discussed and patient voices understanding. Return to the office as scheduled or as needed for worsening/no improvement. Romina Flynn APRN.CNP documented in this encounterCh[facility]01-[facility]25 Telephone encounter Note * Telephone Encounter - Romina Flynn APRN.CNP - 06/01/2024 1:51 PM EST Patient was seen at [facility] for delirium, A-fib with rapid ventricular response Discharge diagnosis: Debility, altered mental status resolved, repeat falls with visual hallucinations, acute kidney injury, acute kidney failure, new onset atrial fib, Parkinson's acute, heart failure with reduced ejection fraction, hyperlipidemia, diabetes, depression, anemia. Patient was seen for altered mental status. Acute kidney injury, visual hallucinations, multiple falls, complicated newonset A-fib with RVR admitted to telemetry with debility. Here for rehab and strengthening prior todischarge home with . WBC 8.8, hemoglobin 10.7, hemoglobin 32.9, hematocrit hematocrit 32.9, platelet count 208 Sodium 139, potassium 4.1, BUN 39, creatinine 1.89, glucose 167 Medications were reconciled. [facility]01-23-[facility] Miscellaneous Notes* Telephone Encounter - Romina Flynn APRN.CNP - 06/01/2024 1:51 PM EST Patient was seen at [facility] for delirium, A-fib with rapid ventricular response Discharge diagnosis: Debility, altered mental status resolved, repeat falls with visual hallucinations, acute kidney injury, acute kidney failure, new onset atrial fib, Parkinson's acute, heart failure with reduced ejection fraction, hyperlipidemia, diabetes, depression, anemia. Patient was seen for altered mental status. Acute kidney injury, visual hallucinations, multiple falls, complicated newonset A-fib with RVR admitted to telemetry with debility. Here for rehab and strengthening prior todischarge home with . WBC 8.8, hemoglobin 10.7, hemoglobin 32.9, hematocrit hematocrit 32.9, platelet count 208 Sodium 139, potassium 4.1, BUN 39, creatinine 1.89, glucose 167 Medications were reconciled. documented in this encounterChillicothe [facility]01-20-[facility] History of Present illness Narrative* Yenny Bill - 05/29/2024 10:27 AM EST Progress Note Axel Serrano 1940 Encounter date: 05/29/2024 HPI: Axel Serrano is a 84 year old gentleman with PMHx o T2DM, Parkinson's, HTN, HLD, aortic stenosis, CKD, IRINEO, TIA, anemia, and DLBCL s/p CALGB protocol 48494: 6 cycles R-EPOCH until September 2006 and consolidation XRT at [facility] (Dr. Winn records in care everywhere), presenting as referral from his PCP, Dr. Polk for further anemia workup. Hgb has been gradually decreasing over the last year orso. Thorough workup for anemia completed. Folate deficiency corrected. No iron or b12 deficiency. Denies new aches or pains today. Chronic back pain stable. Some R side rib pain s/p fall in shower into toilet resulting in rib fx >10 years ago. Denies new lumps or bumps. No SOB, CP, or palpitations. No DOVER, dizziness, or changes in vision. Denies N/V/C/D. No changes in bowel or bladder habits.No hematuria, hematochezia, occult stool negative. No rash or skin changes. Denies recent bleeding or bruising. Hx of blood tx during clinical trial. No IV iron. Denies unintentional weight loss. 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 Some chemical exposure to round up (household use). BM bx in the past at [facility] while undergoing treatment for DLBCL. Denies know family hx of cancer or blood disorders. Last scope [address] Cano Interval Hx: Mr. Serrano presents today with his spouse. Recent fall, tripped on floor mat walking into a restaurant. Fractured humerus well healed, no residual symptoms. Recent hospitalization for confusion Apr 27 - May 19. Feels better today. Spouse notes he has good days and bad. Changes made to parkinsons medications during admission. Seem to be helping. Has a fewscrapes and skin tears that are healing. No other bleeding. They have home health coming 2x daily at the moment. Denies recent illness, fevers, chills or NS. No SOB, CP, or palpitations. Endorses ISSA. No DOVER, dizziness, or changes in vision. Denies N/V/C/D. No changes in bowel or bladder habits. No rash or skin changes. Denies bleeding or bruising. Spending >50% day in recliner. 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 apixaban (ELIQUIS) 5 mg tab(s) Take 1/2 tablet by mouth two times a day LORazepam (ATIVAN) 0.5 mg TAKE 1 TABLET BY MOUTH EVERY 4 HOURS NEEDED FOR AGITATION AND RESTLESSNESS FOR 30 DAYS metoprolol succinate ER (TOPROL XL) 50 mg 24 hr tablet take 1 tablet by mouth 2 times a day rivastigmine tartrate (EXELON) 1.5 mg capsule TAKE 1 CAPSULE BY MOUTH 2 TIMES A DAY WITH MEALS ferrous gluconate 256 mg (28 mg iron) tab Take 1 tablet by mouth two times a day. 180 tablet 1 folic acid 1 mg tablet Take 1 tablet by mouth once daily. 30 tablet 11 gabapentin (NEURONTIN) 300 mg capsule Take 1 capsule by mouth two times a day. 60 capsule 11 atorvastatin (LIPITOR) 40 mg tablet Take 1 tablet by mouth daily at bedtime. For cholesterol. 90 tablet 3 tamsulosin (FLOMAX) 0.4 mg Take 2 capsules by mouth once daily. sertraline (ZOLOFT) 50 mg tablet Take 1 tablet by mouth once daily. 90 tablet 3 SITagliptin phosphate (JANUVIA) 50 mg tablet Take 1 tablet by mouth once daily. 90 tablet 3 metFORMIN ER (GLUCOPHAGE XR) 500 mg 24 hr tablet Take 1 tablet by mouth two times a day before meals. 180 tablet 3 furosemide (LASIX) 40 mg tablet Take 40 mg by mouth once daily. cyanocobalamin (VITAMIN B-12) 1,000 mcg tab Take 1 tablet by mouth once daily. 30 tablet 11 blood sugar diagnostic (BLOOD GLUCOSE TEST) test strip Test blood sugar(s) 1 times daily. Dx: Type 1 DM - Controlled E10.9 Insulin: No 50 Strip 11 LANCETS USE DIRECTED 100 0 carbidopa-levodopa (SINEMET) 25-100 mg per tablet Take 1 tablet at 6AM, 1 tablet at 10AM, 1 tablet at 2PM and 1 tablet at 6PM. (Patient not taking: Reported on 04/17/2024) 360 tablet 0 metoprolol tartrate, short acting, (LOPRESSOR) 50 mg tablet Take 1 tablet by mouth two times a day.180 tablet 3 glimepiride (AMARYL) 4 mg tablet Take 1 tablet by mouth two times a day with meals. 180 tablet 3 aspirin, enteric coated (ASPIRIN, ENTERIC COATED) 81 mg EC tablet Take 81 mg by mouth once daily. No current facility-administered medications for this visit. ALLERGIES Allergen Reactions Mai Inhibitors Other: See Comments Hyperkalemia Atorvastatin Myalgia Pravastatin Myalgia Evkmjne-Nmj-Def Red* Myalgia FAMILY HISTORY Problem Relation Age of Onset Coronary Artery Disease Mother Coronary Artery Disease Father Coronary Artery Disease Brother Heart disease Brother Heart disease Maternal Grandmother Heart disease Maternal Grandfather Heart disease Paternal Grandmother Heart disease Paternal Grandfather Social History Tobacco Use Smoking status: Former Types: Cigars Smokeless tobacco: Never Tobacco comments: cigars-6 a day Vaping Use Vaping status: Never Used Substance Use Topics Alcohol use: No Drug use: No Review of Systems: Negative except as noted in HPI reviewed 05/29/2024 Physical Exam: BP 125/78 Pulse 67 Temp (Src) 97.4 (Temporal) Wt 276 lb (125.2kg) SpO2 97% General: Age-appropriate well developed. Appears well. HEENT: Normocephalic, no sclera icterus Neck: Supple, no JVD. Chest: Clear bilaterally, no wheezes, not labored. Heart: Normal S1 and S2, no abnormal sounds Abdomen: Soft, nontender, Extremities: No cyanosis, clubbing, gross deformities. Neurological: Cranial nerves II through XII are intact bilaterally, no focal deficits. Skin: Warm and dry with no rashes Hematologic: no bruising or petechiae. Psychiatric: Alert and oriented x3. Emotional well-being assessment was performed. Pt denies depression, distress, and or problems with coping or adjustment. I have performed the physical exam today (05/29/2024) and have edited the note to correlate with current findings. Lab Results Component Value Date WBC 11.10 (H) 05/29/2024 HB 11.2 (L) 05/29/2024 MCV 87.8 05/29/2024 PLT 155 05/29/2024 Lab Results Component Value Date NA 138 01/17/2024 K 5.0 01/17/2024 CO2 23 01/17/2024 BUN 30 (H) 01/17/2024 CREAT 1.86 (H) 01/17/2024 TBILI 0.6 03/20/2024 TPROT 6.5 03/20/2024 ALB 3.5 (L) 03/20/2024 ALKPHOS 48 03/20/2024 ALT <5 (L) 03/20/2024 AST 8 (L) 03/20/2024 Latest Reference Range & Units 11/03/23 09:07 11/29/23 12:06 01/17/24 10:42 eGFR >=60 mL/min/1.73m 40 (L) 35 (L) Vitamin B12 232 - 1,245 pg/mL 941 Folate >4.7 ng/mL >20.0 Ferritin 30.3 - 565.7 ng/mL 233.0 566.0 (H) Iron 41 - 186 ug/dL 55 47 TIBC 232 - 386 ug/dL 254 235 Transferrin Saturation 15.0 - 57.0 % 21.7 20.0 (L): Data is abnormally low (H): Data is abnormally high Assessment and Plan: Mr. Serrano is a pleasant 84 year old gentleman presenting for anemia workup Anemia, CKD - dicussed potential causes of anemia with patient and spouse in detail today not limited to kidney/liver dysfunction, bone marrow disorders, chronic blood loss, etc. Reviewed likely multifactorial, CKD significant contributor - discussed possible need for bone marrow bx, pt and spouse acknowledged. Continue to hold off for now. - CBC stable, CMP reflective of CKD, SPEP and urine protein negative for M protein, k/l ratio normal. - completed IV iron sucrose 200mg x5 with minimal improvement in CBC. Iron studies remain stable - discussed epo administration now that Iron is appropriate - received 1 dose of epo with significant improvement. - HGB 11.2 - no injection today - continue to follow with neuro - continue to monitor labs. Repeat ferritin, iron studies every 3 months CBC, possible aranesp in 1 month. Yenny Bill APRN.IGNITER CAPPER I spent a total of 30 minutes on the date of the service which included preparing to see the patient, [id number] patient care, completing clinical documentation, obtaining and/or reviewing separately obtained history, and counseling and educating the patient/family/caregiver. Portions of this note including HPI, ROS, impression/plan may have been copied forward as to provide important historical information essential in contributing to medical decision making. Documentation has been reviewed and edited as necessary to support clinical decision making for today's visit and to reflect my own independent evaluation of this patient. documented in this encounterChillic[facility]01-20-2025 NoteHNO ID: [id number] Author: MARAL BRUSH LPN Service: ? Author Type: LICENSED NURSE Type: Progress Notes Filed: 05/29/2024 10:04 Note Text: Injection deferred, parameters not met HGB 11.2 [facility] History of Present illness Narrative* Maral Brush LPN - 05/29/2024 10:03 AM EST Injection deferred, parameters not met HGB 11.2 Maral Brush LPN documented in this encounterChillicothe [facility]01-14-2025 Telephone encounter Note * Telephone Encounter - Arsh Polk MD - 05/23/2024 4:06 PM EST noted [facility]01-14-2025 Miscellaneous Notes* Telephone Encounter - Arsh Polk MD - 05/23/2024 4:06 PM EST noted * Telephone Encounter - Sumit Carlson RN - 05/23/2024 2:45 PM EST Jerry PT with [facility] called in and reports he will see the Pt twice a week for 4 weeks for functional mobility training. He is calling OT POC and states they are going to see Pt once this week, then twice a week for 3 weeks for activities of daily living. States he does not need a call back. documented in this encounterChillicothe [facility]01-14-2025 Telephone encounter Note * Telephone Encounter - Sumit Carlson RN - 05/23/2024 2:45 PM EST Jerry PT with [facility] called in and reports he will see the Pt twice a week for 4 weeks for functional mobility training. He is calling OT POC and states they are going to see Pt once this week, then twice a week for 3 weeks for activities of daily living. States he does not need a call back. [facility]01-13-2025 Telephone encounter Note* Telephone Encounter - Steffany Hernandez RN - 05/22/2024 1:45 PM EST Yun from [facility] calling to update Dr. Polk as she saw pt today for his admission assessment. Pt on 4 new meds-entered as med updates. Pt was prescribed Metoprolol Succinate ER 24 hr 50 mg tablets. (Pt was on Metoprolol Tartrate, short acting, 50 mg tablets before) Meds loaded and pended for provider to review first. Pt has medications for now. Pt was discharged from [facility] on Wednesday for Atrialfibrillation RVR. Pt is now sinus rhythm. When pt was admitted to hospital had some confusion but with hx of dementia and Parkinson's disease, said now that he is back home, he is back to baseline. She wanted to let Dr. Polk know that pt has 2 skin tears on his left elbow and one on his left dover d. Currently orders to change drsg every 5 days which she did today. Areas look good. Order is to clean with soap/water and apply Adaptic Foam. He also has a skin tear on his right lower leg that is currently ordered to be changed daily. Yun assessed it and changed the drsg-no drainage. She is marking down to change every 3-4 days and as needed for drainage. Only call Yun back if Dr. Polk is not okay with this drsg change order. Yun is going to see pt 2x/wk for 1 wk and then 1x/wk for 3 wks. She is also ordering aide to come in and help with bathing 1x/wk for 2 wks. PT/OT/ST/SW all willbe seeing pt as well and calling in their plan of cares. [facility]01-13-[facility] Miscellaneous Notes* Telephone Encounter - Steffany Hernandez RN - 05/22/2024 1:45 PM EST Yun from [facility] calling to update Dr. Polk as she saw pt today for his admission assessment. Pt on 4 new meds-entered as med updates. Pt was prescribed Metoprolol Succinate ER 24 hr 50 mg tablets. (Pt was on Metoprolol Tartrate, short acting, 50 mg tablets before) Meds loaded and pended for provider to review first. Pt has medications for now. Pt was discharged from [facility] on Wednesday for Atrialfibrillation RVR. Pt is now sinus rhythm. When pt was admitted to hospital had some confusion but with hx of dementia and Parkinson's disease, said now that he is back home, he is back to baseline. She wanted to let Dr. Polk know that pt has 2 skin tears on his left elbow and one on his left dover d. Currently orders to change drsg every 5 days which she did today. Areas look good. Order is to clean with soap/water and apply Adaptic Foam. He also has a skin tear on his right lower leg that is currently ordered to be changed daily. Yun assessed it and changed the drsg-no drainage. She is marking down to change every 3-4 days and as needed for drainage. Only call Yun back if Dr. Polk is not okay with this drsg change order. Yun is going to see pt 2x/wk for 1 wk and then 1x/wk for 3 wks. She is also ordering aide to come in and help with bathing 1x/wk for 2 wks. PT/OT/ST/SW all willbe seeing pt as well and calling in their plan of cares. documented in this encounterChillicothe [facility]01-10-2025 Telephone encounter Note * Telephone Encounter - Lizzette Restrepo LPN - 05/19/2024 4:37 PM EST Notified. [facility]01-10-2025 Miscellaneous Notes* Telephone Encounter - Lizzette Restrepo LPN - 05/19/2024 4:37 PM EST Notified. * Telephone Encounter - Arsh Polk MD - 05/19/2024 3:59 PM EST yes * Telephone Encounter - Carole Cerrato RN - 05/19/2024 3:36 PM EST Hayley with [facility] calling and asking if provider will sign and follow patient for Home Health Nursing, PT, OT, ST, HH Aide and Social Work orders? Please call Hayley back at [phone]. Carole Cerrato RN documented in this encounterChillicothe [facility]01-10-2025 Telephone encounter Note * Telephone Encounter - Arsh Polk MD - 05/19/2024 3:59 PM EST yes [facility]01-10-[facility] Telephone encounter Note* Telephone Encounter - Carole Cerrato RN - 05/19/2024 3:36 PM EST Hayley with [facility] calling and asking if provider will sign and follow patient for Home Health Nursing, PT, OT, ST, HH Aide and Social Work orders? Please call Hayley back at [phone]. Carole Cerrato RN [facility]01-07-2025 [facility] Medical Records Department [address] [place] [id number] Discharge Summary 05/16/24 1736 MR#: [id number] Acct: [id number] Name: AXEL SERRANO Rep #: [id number] : 1940 84 From: Bertrand Romano MD PCP: Dr. Arsh Polk MD Status:ADM IN Location: [place] [address] Providers Date of Admission: 04/27/24 Primary Care Physician: Dr. Arsh Polk MD Consultations 04/27/24 18:13 Consult: Onc/Wound/it help desk analyst Routine Comment: Reason for Consult:: Ulcers to leg. Diabetic. Reason For Visit: DELIRIUM, AFIB RVR Diagnosis Discharge Diagnosis (1) Debility: Status: Acute Code(s): R53.81 - Other malaise (2) Altered mental status: Status: Resolved Code(s): R41.82 - Altered mental status, unspecified (3) Multiple falls: Status: Acute Code(s): R29.6 - Repeated falls (4) Visual hallucinations: Status: Acute Code(s): R44.1 - Visual hallucinations (5) KOFI (acute kidney injury): Status: Ruled-out Code(s): N17.9 - Acute kidney failure, unspecified (6) New onset atrial fibrillation: Status: Acute Code(s): I48.91 - Unspecified atrial fibrillation (7) Parkinson disease: Status: Acute Code(s): G20.A1 - Parkinson's disease without dyskinesia, without mention of fluctuations (8) Parkinson's disease dementia: Status: Acute Code(s): G20.A1 - Parkinson's disease without dyskinesia, without mention of fluctuations; F02.80 - Dementia in other diseases classified elsewhere, unspecified severity, without behavioral disturbance, psychotic disturbance, mood disturbance, and anxiety (9) Coronary artery disease: Status: Acute Code(s): I25.10 - Atherosclerotic heart disease of [place] coronary artery without angina pectoris (10) HFrEF (heart failure with reduced ejection fraction): Status: Acute Code(s): I50.20 - Unspecified systolic (congestive) heart failure (11) HLD (hyperlipidemia): Status: Chronic Code(s): E78.5 - Hyperlipidemia, unspecified Qualifiers: Hyperlipidemia type: pure hypercholesterolemia Qualified Code(s): E78.00 - Pure hypercholesterolemia, unspecified (12) Anemia: Status: Acute Code(s): D64.9 - Anemia, unspecified (13) Diabetes mellitus: Status: Acute Code(s): E11.9 - Type 2 diabetes mellitus without complications (14) Essential (primary) hypertension: Status: Acute Code(s): I10 - Essential (primary) hypertension (15) Depression: Status: Acute Code(s): F32.A - Depression, unspecified (16) Iron deficiency anemia: Status: Acute Code(s): D50.9 - Iron deficiency anemia, unspecified (17) B12 deficiency: Status: Acute Code(s): E53.8 - Deficiency of other specified B group vitamins (18) BPH (benign prostatic hyperplasia): Status: Acute Code(s): N40.0 - Benign prostatic hyperplasia without lower urinary tract symptoms Plan 83 year old male with below past medical history hospitalized for change in mental status, acute kidney injury, visual hallucinations, multiple falls, complicated by new onset atrial fibrillation with rapid ventricular response, admitted to TCU with debility, here for rehabilitation, strengthening, prior to discharge home with . * Debility - PT/OT. * Dysphagia - ST. * Cognition - ST. * Pain - Tylenol 1000mg q6 prn pain (1-10). * Bowel - senna/colace 1 tablet bid, Magnesium citrate 300mL daily prn. * Adult immunization - Administer pneumonia vaccine, covid vaccine, flu vaccine as appropriate. * DVT prophylaxis - on Eliquis. * Atrial fibrillation - Metoprolol 50mg bid, Eliquis 2.5mg bid. * Hyperlipidemia - Atorvastatin 40mg qhs. * B12 deficiency - B12 1000mcg daily. * Vitamin D deficiency - D 1.25mg per week. * Iron deficiency anemia - Ferrous gluconate 325mg q48. * Folate deficiency - Foic acid 1mg daily. * HFrEF - Metoprolol 50mg bid, Furosemide 40mg daily * Diabetes Mellitus II - Metformin 500mg bidcm, Tradjenta 5mg daily. * Skin irritation - Calmoseptine topical bid. * Depression - Sertraline 50mg daily, stable chronic buttermaker helper use, GDR not recommended. * BPH - Tamsulosin 0.8mg daily. Medications at Discharge Home Medications folic acid 1 mg tablet 1 mg PO DAILY [facility] 11/11/21 atorvastatin 40 mg tablet 40 mg PO DAILY cholesterol 02/20/22 cholecalciferol (vitamin D3) 1,250 mcg (50,000 unit) capsule 50,000 unit PO QWEEK [facility] emergency department 02/20/22 sertraline 50 mg tablet 50 mg PO DAILY Depression 02/20/22 mecobalamin (vitamin B12) 1,000 mcg chewable tablet 1,000 mcg PO DAILY [facility] department 11/16/23 metformin 500 mg tablet,extended release 24 hr 500 mg PO BID DM 11/16/23 sitagliptin phosphate 50 mg tablet (Januvia) 50 mg PO QDAY Diabetes 11/16/23 furosemide 40 mg tablet See Rx Instructions .Route .COMPLEX water pill #90 tabs 04/19/24 tamsulosin 0.4 mg capsule (Flomax) 0.8 mg PO DAILY bladder 04/24/24 ferrous gluconate 324 mg (37.5 mg iron) tablet 325 mg (more content not included)...[facility]12-19-2024 [facility] Medical Records Department [address] [place] [address] History Physical Exam 04/27/242004 MR#: [id number] Acct: [id number] Name: AXEL SERRANO Rep #: [id number] : 1940 83 From: Bertrand Romano MD PCP: Dr. Arsh Polk MD Status:ADM IN Location: [address] - General General Date of Admission: 04/27/24 Date of Service: 04/28/24 Chief Complaint: Here for rehabilitation. HPI Narrative AXEL SERRANO, is a 83 Male who presents with followin04/18/2024 [facility] ED with change in mental status. Episodic confusion, delrium for 2 weeks. Visual hallucinations, recent restart of Sinemet, then stopped it. Hallucinations worse, cough, decreased oral intake. Frequent falls 2/[address] bran negative, urinalysis negative. EKG atrial fibrillation with rvr, amiodarone drip started, start Eliquis. 04/24/2024 Admit [facility]. IV fluids, Hold Sinemet, Hold gabapentin for encephalopathy/hallucinations. . Hold Lasix. Echo, Amiodarone drip, Eliquis for new onset atrial fibrillation with rvr. 04/24/2024 Echo LVEF 40%. Mild concentric LVH. Mild to moderate global hypokinesis of LV. Bioprosthetic aortic valve. 04/25/2024 Tired, confused. PT/OT. Parkinson Disease Dementia NPO per ST. Atrial fibrillation convered to sinus rhythm, Lopressor 50mg bid, Eliquis 5mg bid. Kofi resolved with IV fluids. 04/26/2024 More alert and oriented. PT/OT for SNF, NPO, plan bedside swallow evaluation. Lopressor 50mg bid, Eliquis 5mg bid, new onset atrial fibrillation with RVR. KOFI resolved. 04/27/2024 Admit to TCU with debility, here for rehabilitation, strengthening, prior to discharge home with . [facility] Medical History (Updated 04/27/24 @ 20:[address] 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) Chronic kidney disease (CKD) Non-ischemic cardiomyopathy History of non-ST elevation myocardial infarction (NSTEMI) (01/22/20) Chronic systolic (congestive) heart failure CHF (congestive heart failure), NYHA class III 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 Mild chronic anemia Nonrheumatic aortic (valve) stenosis Non-Hodgkin lymphoma Obesity Splenic artery aneurysm Type 2 diabetes mellitus Kidney stones HLD (hyperlipidemia) Home Medications ???Medication ???Instructions ???Recorded ???Last Taken ???Type aspirin 81 mg tablet,delayed 81 mg PO [email or web address] [facility] 01/22/20 04/26/24 21:05 History release metoprolol tartrate 50 mg tablet 50 mg PO BID blood sugar #60 tabs 01/24/20 08/14/20 Rx folic acid 1 mg tablet 1 mg PO DAILY [facility] 11/11/21 04/27/24 08:20 History atorvastatin 40 mg tablet 40 mg PO DAILY cholesterol 02/20/22 04/26/24 21:05 History cholecalciferol (vitamin D3) 1,250 50,000 unit PO QWE health 02/20/22 Unknown History mcg (50,000 unit) capsule [facility] sertraline 50 mg tablet 50 mg PO DAILY Depression 02/20/22 04/27/24 08:20 History mecobalamin (vitamin B12) 1,000 1,000 mcg PO DAILY health 11/16/23 Unknown History mcg chewable tablet [facility] metformin 500 mg tablet,extended 500 mg PO BID DM 11/16/23 04/27/24 08:20 History release 24 hr saw palmetto 1 cap PO DAILY prostate 11/16/23 Unknown History sitagliptin phosphate 50 mg tablet 50 mg PO QDAY Diabetes 11/16/23 Unknown History (Januvia) furosemide 40 mg tablet See Rx Instructions .Route 04/19/24 Unknown Rx .COMPLEX water pill #90 tabs tamsulosin 0.4 mg capsule (Flomax) 0.8 mg PO DAILY bladder 04/24/24 04/27/24 08:20 History apixaban 5 mg tablet (Eliquis) 2.5 mg (1/2 x 5 mg) PO BID blood 04/27/24 04/27/24 08:20 Rx thinner 30 days #30 tabs ferrous gluconate 324 mg (37.5 mg 325 mg (1.0031 x 324 mg (37.5 mg 04/27/24 04/27/24 08:20 Rx iron) tablet iron)) PO [employer] maitenance 30 days #15 tabs Allergy/AdvReac Type Severity Reaction Status Date / Time No Known Allergies Allergy Verified 04/24/24 16:19 Family History Mother Heart disease Father Heart disease Brother Heart disease Surgical History History of left heart catheterization (08/14/20) Hx of cataract surgery Hx of cholecystectomy Social History (Updated 04/27/24 @ 20:[address] Bertrand Romano MD) hous (more content not included)...[facility]12-19-2024 Miscellaneous Notes* Telephone Encounter - Kaylee Villa LPN - 04/27/2024 12:33 PM EST Patient admitted to [facility] for altered mental status 04/24/2024. Patient's states they are going to be transferring him to TCU. Appointments for 05/01/2024 cancelled. Kaylee Villa LPN * Telephone Encounter - Petra Montez - 04/27/2024 12:17 PM EST Pt is scheduled 05/01 for labs and injection. called stating he is in hospital now and not sure when he will get out. Please advise and call back thank you documented [facility] encounter[facility] Telephone encounter Note * Telephone Encounter - Kaylee Villa LPN - 04/27/2024 12:33 PM EST Patient admitted to [facility] for altered mental status 04/24/2024. Patient's states they are going to be transferring him to TCU. Appointments for 05/01/2024 cancelled. Kaylee Villa LPN [facility]12-19-2024 Telephone encounter Note* Telephone Encounter - Petra Montez - 04/27/2024 12:17 PM EST Pt is scheduled 05/01 for labs and injection. called stating he is in hospital now and not sure when he will get out. Please advise and call back thank you [facility]12-19-2024 [facility] Medical Records Department [address] [place] [id number] Discharge Summary 04/27/24 1115 MR#: [id number] Acct: [id number] Name: AXEL SERRANO Junior Rep #: [id number] : 1940 83 From: Owen Chakraborty DO PCP: Dr. Arsh Polk MD Status:ADM IN Location: [place] [address] Providers Date of Admission: 04/24/24 Date of Discharge: 04/27/24 Primary Care Physician: Dr. Arsh Polk MD Consultations 04/26/24 14:52 Consult: Onc/Wound/it help desk analyst Routine Comment: Reason for Consult:: stasis ulcer left arredondo Reason For Visit: DELIRIUM AFIB RVR Diagnosis Discharge Diagnosis (1) Altered mental status: Status: Acute Code(s): R41.82 - Altered mental status, unspecified (2) Hallucinations: Status: Acute Code(s): R44.3 - Hallucinations, unspecified (3) Paroxysmal atrial fibrillation with RVR: Status: Acute Code(s): I48.0 - Paroxysmal atrial fibrillation Medications at Discharge Home Medications aspirin 81 mg tablet,delayed release 81 mg PO [email or web address] [facility] 01/22/20 metoprolol tartrate 50 mg tablet 50 mg PO BID #60 tabs 01/24/20 folic acid 1 mg tablet 1 mg PO DAILY 11/11/21 atorvastatin 40 mg tablet 40 mg PO DAILY 02/20/22 cholecalciferol (vitamin D3) 1,250 mcg (50,000 unit) capsule 50,000 unit PO QWEEK 02/20/22 sertraline 50 mg tablet 50 mg PO DAILY 02/20/22 mecobalamin (vitamin B12) 1,000 mcg chewable tablet 1,000 mcg PO DAILY 11/16/23 metformin 500 mg tablet,extended release 24 hr 500 mg PO BID DM 11/16/23 saw palmetto 1 cap PO DAILY 11/16/23 sitagliptin phosphate 50 mg tablet (Januvia) 50 mg PO QDAY 11/16/23 furosemide 40 mg tablet See Rx Instructions .Route .COMPLEX #90 tabs 04/19/24 tamsulosin 0.4 mg capsule (Flomax) 0.8 mg PO DAILY 04/24/24 apixaban 5 mg tablet (Eliquis) 2.5 mg (1/2 x 5 mg) PO BID 30 days #30 tabs 04/27/24 ferrous gluconate 324 mg (37.5 mg iron) tablet 325 mg (1.0031 x 324 mg (37.5 mg iron)) PO QODAY 30 days #15 tabs 04/27/24 Hospital Course Operations None Procedures EKG, Modified Barium Swallow, Transthoracic echo and - (Chest x-ray, CT brain) Summary of Care Provided Minutes Spent on Discharge: 35 Hospital Course: Patient is an 83-year-old male who presented to [facility] ED on 04/24/2024 with altered mentation and hallucinations. Hospital course as noted below. Patient discharged to TCU in stable condition on 04/27. 1. Altered mentation with hallucinations in setting of Parkinson disease with dementia, improved; moderate oropharyngeal dysphagia; acute on chronic debility ??? PT/OT/case management followed. Speech therapy followed. Initially had more concern for simple progression of patient's underlying Parkinson's disease with dementia. However he had great improvement in mental status by morning of 04/26 and has been alert and oriented x 3 since then. Suspect the altered mentation may have been related to medications that were being taken prior to admission. Will avoid sedating medications moving forward as able. Completed modified barium swallow study on 04/26 and diagnosed with moderate oropharyngeal dysphagia, with recommendation for mechanical soft textures and thin liquids with small bites and small sips going forward. Additional speech therapy is recommended. Patient stable for discharge to TCU on 04/27. 2. A-fib with RVR, improved; chronic HFrEF; hypertension; hyperlipidemia ??? Patient developed new onset A-fib with RVR on evening of admission. There was concern for possible wide-complex tachycardia with this so he was started on an amiodarone drip. Converted back to sinus rhythm by hospital day 2. Discontinued amiodarone drip and restarted home Lopressor 50 mg twice daily. Has remained in sinus rhythm since conversion. Echo on 04/25 showed EF 40%, mild concentric LV hypertrophy, mild to moderate global hypokinesis of the LV. EF is slightly reduced from prior echo on 12/09/2023 that showed EF 45%. Will continue Lopressor and Eliquis 2.5 mg twice daily on discharge. Continue home aspirin and statin. Held Lasix during hospitalization, okay to resume on discharge. 3. Mild creatinine elevation in setting of CKD stage IIIb, resolved ??? Creatinine 2.47 on admit, baseline 1.7-1.9. Improved back to baseline by hospital day 2 after IV fluid resuscitation. Chronic medical conditions: ??? Class I obesity: BMI 34 on admit. Complicates hospital course, care and prognosis. ??? Type 2 diabetes mellitus: Treated with sliding scale insulin while inpatient. Okay to resume home metformin and sitagliptin on discharge. Discontinued home glimepiride. ??? BPH with obstructive symptoms: Continue home Flomax. ??? Depression: Continue home sertraline. ??? History of aortic stenosis s/p TAVR Total clinical time spent by myself addressing the patient's medical issues, reviewing all the data, and collaborating wi (more content not included)...[facility] 04-26-2024 Telephone encounter Note* Telephone Encounter - Carole Cerrato RN - 04/26/2024 9:30 AM EST Patient's calling into update Dr. Otto's office that patient's appointment needs cancelled for today with GEETA Reyes. Appt has been cancelled as requested. states patient is at [facility] due to hallucinations. Carole Cerrato RN [facility]12-18-2024 Miscellaneous Notes* Telephone Encounter - Carole Cerrato RN - 04/26/2024 9:30 AM EST Patient's calling into update Dr. Otto's office that patient's appointment needs cancelled for today with GEETA Reyes. Appt has been cancelled as requested. states patient is at [facility] due to hallucinations. Carole Cerrato RN documented in this encounterCh[facility]ic[facility]12-16-2024 Telephone encounter Note * Telephone Encounter - Malgorzata Alcaraz OCCA - 04/24/2024 10:58 AM EST TC to patients who verbalized understanding of below. states they have already seen Orthoand fracture is healing well. Also scheduled pt for appointment with Neur SHAHBAZ on 04/26 to discuss medications as currently d/c'd Sinemet per Dr. Otto as TE 04/12. MACK Sorensen [facility]12-16-2024 Miscellaneous Notes* Telephone Encounter - Malgorzata Alcaraz OCCA - 04/24/2024 10:58 AM EST TC to patients who verbalized understanding of below. states they have already seen Orthoand fracture is healing well. Also scheduled pt for appointment with Neur SHAHBAZ on 04/26 to discuss medications as currently d/c'd Sinemet per Dr. Otto as TE 04/12. MACK Sorensen * Telephone Encounter - Malgorzata Alcaraz OCCA - 04/24/2024 7:51 AM EST Images from the original note were not included. Arsh Otto Jr., MD P tr Neur [place] Nurse Please make sure that patient has followed up with ortho. The MRI of the shoulder confirmed the upper extremity fracture. Dr. Polk may know this on March 30 and had arrange an ortho follow up at that time. Thank you Arsh Otto MD. Note, you can copy the above in the telephone encounter * Telephone Encounter - Arsh Otto Jr., MD - 04/20/2024 6:53 PM EST Please try to arrange a follow up with neur shahbaz - virtual ok. Arsh Otto MD * Telephone Encounter - Velia Burk LPN - 04/20/2024 3:54 PM EST Patients calling, states that he has not been taking the carbidopa and the hallucinations got better however his mood is not improved and she is not sure if there is another medication he could try. Also states he had his MRI last week but has not gotten the results. Please advise. documented in this encounterCh[facility]12-16-2024 Telephone encounter Note * Telephone Encounter - Malgorzata Alcaraz OCCA - 04/24/2024 7:51 AM EST Images from the original note were not included. Arsh Otto Jr., MD P tr Neur [place] Nurse Please make sure that patient has followed up with ortho. The MRI of the shoulder confirmed the upper extremity fracture. Dr. Polk may know this on March 30 and had arrange an ortho follow up at that time. Thank you Arsh Otto MD. Note, you can copy the above in the telephone encounter [facility]12-12-2024 Telephone encounter Note* Telephone Encounter - Arsh Otto Jr., MD - 04/20/2024 6:53 PM EST Please try to arrange a follow up with neur shahbaz - virtual ok. Arsh Otto MD [facility]12-12-2024 Telephone encounter Note* Telephone Encounter - Velia Burk LPN - 04/20/2024 3:54 PM EST Patients calling, states that he has not been taking the carbidopa and the hallucinations got better however his mood is not improved and she is not sure if there is another medication he could try. Also states he had his MRI last week but has not gotten the results. Please advise. [facility]12-09-20[facility] Nurse Note* Maral Brush LPN - 04/17/2024 2:40 PM EST Patient presents with: Imm/Inj Pt is identified by name and birthdate: Yes. Allergies and medications reviewed. Latex allergy? No. Does this patient have: Unplanned weight loss or gain of greater than 10 pounds, or a change of appetite over the last year? No Does the patient have any concerns about safety in the home/falls? At risk due to: imbalance and weakness Has the patient fallen in the past year? Yes: Patient has the following symptoms: no symptoms at this time Does the patient have difficulty performing or completing routine daily living activities? No Does this patient have concerns about personal safety? No Is patient having pain? Pain: No=0 (pain 0 on a scale of 0-10). Health Maintenance: Reviewed and updated. Does patient have MyChart access or Caregiver proxy: yes Pt/Caregiver willingness and readiness to learn assessed: Yes. Barriers: none aranesp injection administered, left arm, tolerated well, no immediate adverse reactions noted. Maral Brush LPN [facility]12-09-2024 Nurse Note* Maral Brush LPN - 04/17/2024 2:40 PM EST Patient presents with: Imm/Inj Pt is identified by name and birthdate: Yes. Allergies and medications reviewed. Latex allergy? No. Does this patient have: Unplanned weight loss or gain of greater than 10 pounds, or a change of appetite over the last year? No Does the patient have any concerns about safety in the home/falls? At risk due to: imbalance and weakness Has the patient fallen in the past year? Yes: Patient has the following symptoms: no symptoms at this time Does the patient have difficulty performing or completing routine daily living activities? No Does this patient have concerns about personal safety? No Is patient having pain? Pain: No=0 (pain 0 on a scale of 0-10). Health Maintenance: Reviewed and updated. Does patient have MyChart access or Caregiver proxy: yes Pt/Caregiver willingness and readiness to learn assessed: Yes. Barriers: none aranesp injection administered, left arm, tolerated well, no immediate adverse reactions noted. Maral Brush LPN documented in this encounterChillic[facility]12-04-2024 History of Present illness Narrative* Marline Romeo RT(R) - 04/12/2024 12:00 PM EST Radiology Service Progress Note PATIENT NAME: Axel Serrano DATE OF SERVICE: April 12, 2024 TIME: 12:32 PM PATIENT IDENTITY VERIFICATION COMPLETED USING TWO (2) IDENTIFIERS: Name and Date of confirmedby patient verbally. FALL SCREENING: Has the patient had 2 falls in the last year or 1 fall with injury or currently using an Ambulatory Assistive Device (Walker, Cane, Wheelchair, Crutches, etc.)? Yes, Patient High Riskfor Falls What interventions were put in place to prevent falls during this visit? Instructed Patient to Callfor Help if Needed, Offered Assistance with Transfers/Clothing, Instructed Patient to Remain Seated(Not on Exam Table) Until Exam, and Increased Observations by Caregivers PATIENT GENDER DATA: Male PATIENT RELEVANT IMPLANT DATA REVIEWED: Yes PATIENT PRESENTS WITH AN IMPLANTABLE OR ATTACHED QUALITY AND RELIABILITY ENGINEER: No RADIOLOGY DEPARTMENT: MR; Exam(s) Completed: Spine: Lumbar spine Upper MSK: Shoulder, left PERIPHERAL IV DATA: Not applicable SIGNED BY: RT Julito(Gena) April 12, 2024 12:32 PM documented in this encounterChillicothe [facility]12-04-[facility] Telephone encounter Note* Telephone Encounter - Virgie Lees LPN - 04/12/2024 10:21 AM EST Spoke to patients and advised of message below. verbalized understanding. Nurse emphasized to please call back on Wednesday to update office. verbalized understanding [facility]12-04-2024 Miscellaneous Notes* Telephone Encounter - Virgie Lees LPN - 04/12/2024 10:21 AM EST Spoke to patients and advised of message below. verbalized understanding. Nurse emphasized to please call back on Wednesday to update office. verbalized understanding * Telephone Encounter - Arsh Otto Jr., MD - 04/12/2024 10:07 AM EST Please have patient hold medication for 24 hours to see if improvement. Pt should provide us feedback Wednesday. If not improving, would also recommend that pt follow up with PCP as symptoms might also be due to urinary tract infection or metabolic derangement. Arsh Otto MD * Telephone Encounter - Lulu Calabrese LPN - 04/12/2024 9:24 AM EST calling to report pt has been on Medication Carbidopa-Levodopa x 12 days taking 4 per day. Yesterday when he woke up at 4 am he got out of bed and took off without his walker and fell into cupboard in dinning room. Hit his left eye and skinned up area on right arm. Saying thing all day long that did not make sense, testy, hallucinating, not sleeping well (usually sleeps during the day but not yesterday he was awake). Pt just not himself. reports today maybe a little more calmer. feels it may be coming from the medication above and wants to know if maybe should stop and see how he does. Example: today pt is say what is that on the floor and reports there is nothing there. Please advise if she should stop medication or continue it. She reports she has not given him any yet today 9:32 am. Pt has an MRI today and they are planning on taking him to this apt. Lulu Calabrese LPN documented in this encounterChillicothe [facility]12-04-2024 Telephone encounter Note * Telephone Encounter - Arsh Otto Jr., MD - 04/12/2024 10:07 AM EST Please have patient hold medication for 24 hours to see if improvement. Pt should provide us feedback Wednesday. If not improving, would also recommend that pt follow up with PCP as symptoms might also be due to urinary tract infection or metabolic derangement. Arsh Otto MD [facility]12-04-2024 Telephone encounter Note* Telephone Encounter - Lulu Calabrese LPN - 04/12/2024 9:24 AM EST calling to report pt has been on Medication Carbidopa-Levodopa x 12 days taking 4 per day. Yesterday when he woke up at 4 am he got out of bed and took off without his walker and fell into cupboard in dinning room. Hit his left eye and skinned up area on right arm. Saying thing all day long that did not make sense, testy, hallucinating, not sleeping well (usually sleeps during the day but not yesterday he was awake). Pt just not himself. reports today maybe a little more calmer. feels it may be coming from the medication above and wants to know if maybe should stop and see how he does. Example: today pt is say what is that on the floor and reports there is nothing there. Please advise if she should stop medication or continue it. She reports she has not given him any yet today 9:32 am. Pt has an MRI today and they are planning on taking him to this apt. Lulu Calabrese LPN [facility]12-04-2024 Telephone encounter Note* Telephone Encounter - Lulu Calabrese LPN - 04/12/2024 9:23 AM EST error [facility]12-04-2024 Miscellaneous Notes* Telephone Encounter - Lulu Calabrese LPN - 04/12/2024 9:23 AM EST error documented in this encounterCh[facility]11-[facility] History of Present illness Narrative* Denny Toure MD - 04/03/2024 11:09 AM EST Denny Toure MD Department of Orthopaedics Orthopaedics [address] [facility] [address] Dept: [phone] Dept April 03, 2024 CHIEF COMPLAINT: New and Fracture of the Left Shoulder HPI Patient here for evaluation left proximal humerus fracture. Patient states on 03/15 he tripped on a mat a restaurant and face planted. He started having shoulder pain and went to the ED the following day at [facility]. Has been wearing a sling. States he pain is worse when he has the sling on. X-rays done 03/16/24 at [facility], and on 03/27/24. Referred by Dr. Polk. with patient today. ASSESSMENT: M25.512 Acute pain of left shoulder (primary encounter diagnosis) S42.295A Other closed nondisplaced fracture of proximal end of left humerus, initial encounter PLAN: Caution with any wt bearing. Normal, waist level motion for ADLs. Repeat xrays in 3-4 weeks. FOLLOW UP INSTRUCTIONS: As above. OBJECTIVE: Mr. Axel Serrano is a pleasant 83 year old in no apparent distress. Gen:There were no vitals taken for this visit. nl development, obese, no deformities ENT: Normocephalic, normal hearing, moist mucosa CV: Pulses:Radial= 2+ and symmetric, capillary refill < 2 secs, no peripheral edema/varicosities Skin: no rash, bruising or lesions. Good turgor. Psych: cooperative and appropriate, alert and oriented x 3, good mood and affect. Musculoskeletal: Mild and appropriate swelling. Limited motion. IMAGING: * * *Final Report* * * DATE OF EXAM: Mar 27 2024 11:08AM WOX [id number] - XR SHLDR >/=3V AP/ELROY AP/OTHR LT / PROCEDURE REASON: Acute pain of left shoulder * * * * Physician Interpretation * * * * EXAMINATION: XR SHLDR >/=3V AP/ELROY AP/OTHR LT PATIENT/TECHNOLOGIST PROVIDED HISTORY: Left shoulder pain after recent fall. CLINICAL INFORMATION: 83 years old Male with Acute pain of left shoulder TECHNIQUE: XR SHLDR >/=3V AP/ELROY AP/OTHR LT Laterality: LEFT Number of different views (projections): 3 COMPARISON: None RESULT: Nondisplaced fracture of the LEFT proximal humerus involving the humeral neck and greater tuberosity. Osteopenia. Mild degenerative changes glenohumeral and acromioclavicular joints. Acromiohumeral interval appears maintained. Status post transcatheter aortic valve replacement. Several remote healed fracture deformities of the LEFT ribs. Degenerative changes in the thoracic spine. 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 Splenic artery aneurysm (HCC) repeat scans showed no change/not identified Past Surgical History: PAST SURGICAL HISTORY Procedure Laterality Date CHOLECYSTECTOMY COLONOSCOPY FLX DX W/COLLJ SPEC WHEN PFRMD 07/13/2005 COLONOSCOPY FLX DX W/COLLJ SPEC WHEN PFRMD 03/11/2015 Colonoscopy COLONOSCOPY SCREENING 11/12/2021 Dr Cano no repeat due to age ESOPHAGOGASTRODUODENOSCOPY TRANSORAL DIAGNOSTIC 03/11/2015 EGD PAST SURGICAL HISTORY OF 2020 Aortic Valve Replacement Family History: FAMILY HISTORY Problem Relation Age of Onset Coronary Artery Disease Mother Coronary Artery Disease Father Coronary Artery Disease Brother Heart disease Brother Heart disease Maternal Grandmother Heart disease Maternal Grandfather Heart disease Paternal Grandmother Heart disease Paternal Grandfather Social History: Social History Tobacco Use Smoking status: Former Types: Cigars Smokeless tobacco: Never Tobacco comments: cigars-6 a day Vaping Use Vaping status: Never Used Substance Use Topics Alcohol use: No Drug use: No Medications: Current Outpatient Medications Medication Sig carbidopa-levodopa (SINEMET) 25-100 mg per tablet Take 1 tablet at 6AM, 1 tablet at 10AM, 1 tablet at 2PM and 1 tablet at 6PM. ferrous gluconate 256 mg (28 mg iron) tab Take 1 tablet by mouth two times a day. metoprolol tartrate, short acting, (LOPRESSOR) 50 mg tablet Take 1 tablet by mouth two times a day. folic acid 1 mg tablet Take 1 tablet by mouth once daily. gabapentin (NEURONTIN) 300 mg capsule Take 1 capsule by mouth two times a day. atorvastatin (LIPITOR) 40 mg tablet Take 1 tablet by mouth daily at bedtime. For cholesterol. tamsulosin (FLOMAX) 0.4 mg Take 2 capsules by mouth once daily. glimepiride (AMARYL) 4 mg tablet Take 1 tablet by mouth two times a day with meals. sertraline (ZOLOFT) 50 mg tablet Take 1 tablet by mouth once daily. SITagliptin phosphate (JANUVIA) 50 mg tablet Take 1 tablet by mouth once daily. metFORMIN ER (GLUCOPHAGE XR) 500 mg 24 hr tablet Take 1 tablet by mouth two times a day before meals. furosemide (LASIX) 40 mg tablet Take 40 mg by mouth once daily. cyanocobalamin (VITAMIN B-12) 1,000 mcg tab Take 1 tablet by mouth once daily. blood sugar diagnostic (BLOOD GLUCOSE TEST) test strip Test blood sugar(s) 1 times daily. Dx: Type 1 DM - Controlled E10.9 Insulin: No aspirin, enteric coated (ASPIRIN, ENTERIC COATED) 81 mg EC tablet Take 81 mg by mouth once daily. LANCETS USE DIRECTED No current facility-administered medications for this visit. Allergies: Mai Inhibitors, Atorvastatin, Pravastatin, and Ntivlas-Nme-Rat Reductase Inhibitors ROS: General (negative for fatigue, malaise, weight loss/gain) HEENT (negative for headache, earache, recent vision changes, sinus pain, sore throat) Respiratory (no recent shortness of breath, hemoptysis) CV (negative for chest tightness, palpitations) Musculoskeletal (see HPI) Psych (no depression, anxiety) REFERRING PHYSICIAN: Consultation requested by Dr. Polk for an opinion regarding shoulder pain. My final recommendationswill be communicated back to the requesting physician by way of shared Medical record or letter to requesting physician via US mail. Arsh Polk [address] [facility] [id number] Denny Toure MD documented in this encounterChillic[facility]11-25-[facility]24 Nurse Note* Maral Brush LPN - 04/03/2024 11:04 AM EST Injection deferred, parameters not met HGB 10.0 Maral Brush LPN [facility]11-25-2024 Nurse Note* Maral Brush LPN - 04/03/2024 11:04 AM EST Injection deferred, parameters not met HGB 10.0 Maral Brush LPN documented in this encounterChillicothe [facility]11-25-2024 Note[facility] History of Present illness Narrative* Yenny Bill - 04/03/2024 10:38 AM EST Progress Note Axel Serrano 1940 Encounter date: 04/03/2024 HPI: Axel Serrano is a 83 year old gentleman with PMHx o T2DM, Parkinson's, HTN, HLD, aortic stenosis, CKD, IRINEO, TIA, anemia, and 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 Winn records in care everywhere), presenting as referral from his PCP, Dr. Polk for further anemia workup. Hgb has been gradually decreasing over the last year orso. Thorough workup for anemia completed. Folate deficiency corrected. No iron or b12 deficiency. Denies new aches or pains today. Chronic back pain stable. Some R side rib pain s/p fall in shower into toilet resulting in rib fx >10 years ago. Denies new lumps or bumps. No SOB, CP, or palpitations. No DOVER, dizziness, or changes in vision. Denies N/V/C/D. No changes in bowel or bladder habits.No hematuria, hematochezia, occult stool negative. No rash or skin changes. Denies recent bleeding or bruising. Hx of blood tx during clinical trial. No IV iron. Denies unintentional weight loss. 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 Some chemical exposure to round up (household use). BM bx in the past at [facility] while undergoing treatment for DLBCL. Denies know family hx of cancer or blood disorders. Last scope [address] Cano Interval Hx: Mr. Serrano presents today with his spouse. Recent fall, tripped on floor mat walking into a restaurant. Fractured humerus, seeing ortho today after this appt. Wearing a sling from ED. Otherwise doing ok. Feels sore. Has a few scrapes and skin tears that are healing. No other bleeding. Denies recent illness, fevers, chills or NS. No SOB, CP, or palpitations. Endorses ISSA. Parkinson'sstable. No DOVER, dizziness, or changes in vision. Denies N/V/C/D. No changes in bowel or bladder habits. No rash or skin changes. Denies bleeding or bruising. Spending >50% day in recliner. 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 Splenic artery aneurysm (HCC) repeat scans showed no change/not identified PAST SURGICAL HISTORY Procedure Laterality Date CHOLECYSTECTOMY COLONOSCOPY FLX DX W/COLLJ SPEC WHEN PFRMD 07/13/2005 COLONOSCOPY FLX DX W/COLLJ SPEC WHEN PFRMD 03/11/2015 Colonoscopy COLONOSCOPY SCREENING 11/12/2021 Dr Cano no repeat due to age ESOPHAGOGASTRODUODENOSCOPY TRANSORAL DIAGNOSTIC 03/11/2015 EGD PAST SURGICAL HISTORY OF 2020 Aortic Valve Replacement Current Outpatient Medications Medication Sig Dispense Refill carbidopa-levodopa (SINEMET) 25-100 mg per tablet Take 1 tablet at 6AM, 1 tablet at 10AM, 1 tablet at 2PM and 1 tablet at 6PM. 360 tablet 0 ferrous gluconate 256 mg (28 mg iron) tab Take 1 tablet by mouth two times a day. 180 tablet 1 metoprolol tartrate, short acting, (LOPRESSOR) 50 mg tablet Take 1 tablet by mouth two times a day.180 tablet 3 folic acid 1 mg tablet Take 1 tablet by mouth once daily. 30 tablet 11 gabapentin (NEURONTIN) 300 mg capsule Take 1 capsule by mouth two times a day. 60 capsule 11 atorvastatin (LIPITOR) 40 mg tablet Take 1 tablet by mouth daily at bedtime. For cholesterol. 90 tablet 3 tamsulosin (FLOMAX) 0.4 mg Take 2 capsules by mouth once daily. glimepiride (AMARYL) 4 mg tablet Take 1 tablet by mouth two times a day with meals. 180 tablet 3 sertraline (ZOLOFT) 50 mg tablet Take 1 tablet by mouth once daily. 90 tablet 3 SITagliptin phosphate (JANUVIA) 50 mg tablet Take 1 tablet by mouth once daily. 90 tablet 3 metFORMIN ER (GLUCOPHAGE XR) 500 mg 24 hr tablet Take 1 tablet by mouth two times a day before meals. 180 tablet 3 furosemide (LASIX) 40 mg tablet Take 40 mg by mouth once daily. cyanocobalamin (VITAMIN B-12) 1,000 mcg tab Take 1 tablet by mouth once daily. 30 tablet 11 aspirin, enteric coated (ASPIRIN, ENTERIC COATED) 81 mg EC tablet Take 81 mg by mouth once daily. blood sugar diagnostic (BLOOD GLUCOSE TEST) test strip Test blood sugar(s) 1 times daily. Dx: Type 1 DM - Controlled E10.9 Insulin: No 50 Strip 11 LANCETS USE DIRECTED 100 0 No current facility-administered medications for this visit. ALLERGIES Allergen Reactions Mai Inhibitors Other: See Comments Hyperkalemia Atorvastatin Myalgia Pravastatin Myalgia Ytlebhv-Lnb-Vdg Red* Myalgia FAMILY HISTORY Problem Relation Age of Onset Coronary Artery Disease Mother Coronary Artery Disease Father Coronary Artery Disease Brother Heart disease Brother Heart disease Maternal Grandmother Heart disease Maternal Grandfather Heart disease Paternal Grandmother Heart disease Paternal Grandfather Social History Tobacco Use Smoking status: Former Types: Cigars Smokeless tobacco: Never Tobacco comments: cigars-6 a day Vaping Use Vaping status: Never Used Substance Use Topics Alcohol use: No Drug use: No Review of Systems: Negative except as noted in HPI reviewed 04/03/2024 Physical Exam: BP 145/79 Pulse 67 Temp (Src) 96.4 (Temporal) Wt 0 lb (0.0kg) SpO2 98% General: Age-appropriate well developed. Appears well. HEENT: Normocephalic, no sclera icterus, external ears normal, oral cavity clear. Neck: Supple, no thyroid nodules, no JVD. Chest: Clear bilaterally, no wheezes, not labored. Heart: Normal S1 and S2, no abnormal sounds Abdomen: Soft, nontender, nondistended, bowel sounds present, no organomegaly or mass, no rigidity. Extremities: No cyanosis, clubbing, gross deformities. L arm in sling today, hand and finger edema.Skin tears from recent fall Neurological: Cranial nerves II through XII are intact bilaterally, strength normal in the upper and lower extremities, no focal deficits. Skin: Warm and dry with no rashes or ulcerations. Nodes: No palpable adenopathy in the cervical, supraclavicular, infraclavicular, or axillary regions. Hematologic: no bruising or petechiae. Psychiatric: Alert and oriented x3. Emotional well-being assessment was performed. Pt denies depression, distress, and or problems with coping or adjustment. I have performed the physical exam today (04/03/2024) and have edited the note to correlate with current findings. Lab Results Component Value Date WBC 9.46 04/03/2024 HB 10.0 (L) 04/03/2024 MCV 89.3 04/03/2024 PLT 209 04/03/2024 Lab Results Component Value Date NA 138 01/17/2024 K 5.0 01/17/2024 CO2 23 01/17/2024 BUN 30 (H) 01/17/2024 CREAT 1.86 (H) 01/17/2024 TBILI 0.6 03/20/2024 TPROT 6.5 03/20/2024 ALB 3.5 (L) 03/20/2024 ALKPHOS 48 03/20/2024 ALT <5 (L) 03/20/2024 AST 8 (L) 03/20/2024 Latest Reference Range & Units 11/03/23 09:07 11/29/23 12:06 01/17/24 10:42 eGFR >=60 mL/min/1.73m 40 (L) 35 (L) Vitamin B12 232 - 1,245 pg/mL 941 Folate >4.7 ng/mL >20.0 Ferritin 30.3 - 565.7 ng/mL 233.0 566.0 (H) Iron 41 - 186 ug/dL 55 47 TIBC 232 - 386 ug/dL 254 235 Transferrin Saturation 15.0 - 57.0 % 21.7 20.0 (L): Data is abnormally low (H): Data is abnormally high Assessment and Plan: Mr. Serrano is a pleasant 83 year old gentleman presenting for anemia workup Anemia, CKD - dicussed potential causes of anemia with patient and spouse in detail today not limited to kidney/liver dysfunction, bone marrow disorders, chronic blood loss, etc. Reviewed likely multifactorial, CKD significant contributor - discussed possible need for bone marrow bx, pt and spouse acknowledged. Hold off for now. - CBC stable, CMP reflective of CKD, SPEP and urine protein negative for M protein, k/l ratio normal. - completed IV iron sucrose 200mg x5 with minimal improvement in CBC, - discussed epo administration now that Iron is appropriate - received 1 dose of epo with significant improvement. - Hgb 10.0 today, per insurance pt must be below 10 for injection - no injection today - continue to follow with neuro - continue to monitor labs. Repeat iron studies with next OV Continue with CBC/possible aranesp every 2 weeks. Discussed spacing out visits if remains stable Yenny Bill APRN.IGNITER CAPPER I spent a total of 30 minutes on the date of the service which included preparing to see the patient, [id number] patient care, completing clinical documentation, obtaining and/or reviewing separately obtained history, and counseling and educating the patient/family/caregiver. Portions of this note including HPI, ROS, impression/plan may have been copied forward as to provide important historical information essential in contributing to medical decision making. Documentation has been reviewed and edited as necessary to support clinical decision making for today's visit and to reflect my own independent evaluation of this patient. documented in this encounterCh[facility]11[facility] Telephone encounter Note * Telephone Encounter - Marline Roach MA - 03/30/2024 12:19 PM EST Patient and stopped by office and sling was sized and dispensed. Large sling dispensed Form was signed. Marline Roach MA March 30, 2024 12:20 PM [facility]11-21-2024 Miscellaneous Notes* Telephone Encounter - Marline Roach MA - 03/30/2024 12:19 PM EST Patient and stopped by office and sling was sized and dispensed. Large sling dispensed Form was signed. Marline Roach MA March 30, 2024 12:20 PM * Telephone Encounter - Marline Roach MA - 03/30/2024 10:30 AM EST notified and will stop in office to get sling and set up ortho appt. Marline Roach MA March 30, 2024 10:31 AM * Telephone Encounter - Arsh Polk MD - 03/30/2024 10:13 AM EST Let him know they just called me. He does have a break that is starting to show in his upper arm. Needs a sling in place and referred to ortho. Can we have them come in to get fitted for a sling. Setup with ortho soon documented in this encounterChillicothe [facility]11-21-2024 Telephone encounter Note * Telephone Encounter - Marline Roach MA - 03/30/2024 10:30 AM EST notified and will stop in office to get sling and set up ortho appt. Marline Roach MA March 30, 2024 10:31 AM [facility]11-21-2024 Telephone encounter Note* Telephone Encounter - Arsh Polk MD - 03/30/2024 10:13 AM EST Let him know they just called me. He does have a break that is starting to show in his upper arm. Needs a sling in place and referred to ortho. Can we have them come in to get fitted for a sling. Setup with ortho soon [facility]11-18-[facility]11-[facility] History of Present illness Narrative* Arsh Otto Jr., MD - 03/27/2024 1:19 PM EST ESTABLISHED PATIENT VISIT CHIEF COMPLAINT: Follow Up HISTORY OF PRESENT ILLNESS: Axel Serrano is a 83 year old male, BMI 40.75 kg/m2 with a PMH significant for and per last neuro note of Mery CONNOR on 12/29/23: 1. Weakness of both lower extremities - ICD9: 729.89, ICD10: R29.898 (primary diagnosis) 2. Parkinson's disease, unspecified whether dyskinesia present, unspecified whether manifestations fluctuate (HCC) - ICD9: 332.0, ICD10: G20.A1 3. Sciatica of right side - ICD9: 724.3, ICD10: M54.31 4. Neuropathy - ICD9: 355.9, ICD10: G62.9 5. Abnormality of gait - ICD9: 781.2, ICD10: R26.9 6. Depression, unspecified depression type - ICD9: 311, ICD10: F32.A 7. Lumbar degenerative disc disease - ICD9: 722.52, ICD10: M51.36 Patient grossly unchanged from last appointment. Was started on controlled- release Sinemet but did not tolerate this well due to significant dizziness. Stopped it after 1 week and this resolved. Notes that he still has some tremor in his left upper extremity but otherwise feels that his Parkinson'sis well- controlled. However, notes that his gait is unchanged and he still shuffles, uses a walker at home and a cane when he is outside. Was able to complete the physical therapy, states that he still overwhelmed with many of his appointments that he does not want to do anything else. noting some depression at home because of all the medications and appointments he has to go through. Does walk around his house quite often but not a lot exercise at home, no presyncope or falls since last appointment. No new symptoms today. Does not that he has been sleeping well with his CPAP machine butsometimes wakes up with the machine off of his face. Denies any history of REM sleep disturbance oracting out his dreams at night. No hallucinations, memory loss, issue constipation. Discussed at length with the patient's regimen same as he is becoming fatigued with medication changes and appointments. Will continue with 1 tablet of Sinemet 25/100 mg 3 times daily. Refills for this were sent. Did discuss physical therapy and patient deferring at this time. Emphasized the importance of physical activity at home and patient and understand and agree. I do not have an updated compliance report. Last from 12/13/23. AHI was 7. On ASV 11/12/17. Was using nightly at that time. Pt with recurrent falls. Patient first states he is falling frequently with bruises all over body. Then states one fall 2 weeks ago and then none prior for months. States he just "cannot walk, I justfall down". Sleeps sitting up in a chair. Endorses back pain as sitting here in office. Pain can radiate into lower back. Last imaging in 2020 (MRI) showed mild canal stenosis. CT brain and C spine post fall was reportedly unremarkable. Mood described as "pretty good" per pt and . Only taking Sinemet IR as states CR made him "funny". No messages sent to us at that time. States biggest issue since recent fall is he cannot bear weight on LUE due to pain. Dr. Polk had patient undergo XR of L shoulder this AM. Pt did not take Sinemet since this AM as he forgot his pills. Last dose about 7AM. On further discussion, patient is not taking Sinemet as Rx'd. Takes first dose in AM and then again 6PM. Patient states he did not know Sinemet was for anything other than tremors - note he was educated in detail on this med multiple times. Current wake time is 6AM and up until about 11PM. Difficult to determine how active patient is as he is repeatedly joking throughout the interview. REVIEW OF SYSTEMS GENERAL:No weight loss, malaise or fevers. HEENT:Negative for frequent or significant headaches, No changes in hearing or vision, no nose bleeds or other nasal problems NECK:Negative for lumps, goiter, pain and significant neck swelling RESPIRATORY: Negative for cough, wheezing or shortness of breath. CARDIOVASCULAR: Negative for chest pain, leg swelling or palpitations. GASTROINTESTINAL: Negative for abdominal discomfort, blood in stools or black stools or change in bowel habits GENITOURINARY: No history of dysuria, frequency or incontinence MUSCULOSKELETAL: Negative for joint pain or swelling, back pain or muscle pain. NEUROLOGIC: See HPI. LAB/IMAGING: Those performed since patient's last visit have been reviewed. WBC (k/uL) Date Value 03/20/2024 10.90 RBC (m/uL) Date Value 03/20/2024 3.55 (L) Hemoglobin (g/dL) Date Value 03/20/2024 10.3 (L) Hematocrit (%) Date Value 03/20/2024 31.0 (L) MCV (fL) Date Value 03/20/2024 87.3 MCH (pg) Date Value 03/20/2024 29.0 MCHC (g/dL) Date Value 03/20/2024 33.2 RDW-CV (%) Date Value 03/20/2024 14.6 Platelet Count (k/uL) Date Value 03/20/2024 181 MPV (fL) Date Value 03/20/2024 9.7 Glucose (mg/dL) Date Value 01/17/2024 120 (H) BUN (mg/dL) Date Value 01/17/2024 30 (H) Creatinine (mg/dL) Date Value 01/17/2024 1.86 (H) Sodium (mmol/L) Date Value 01/17/2024 138 Potassium (mmol/L) Date Value 01/17/2024 5.0 Chloride (mmol/L) Date Value 01/17/2024 105 CO2 (mmol/L) Date Value 01/17/2024 23 Protein, Total (g/dL) Date Value 03/20/2024 6.5 Albumin (g/dL) Date Value 03/20/2024 3.5 (L) Calcium, Total (mg/dL) Date Value 01/17/2024 9.4 Alkaline Phosphatase (U/L) Date Value 03/20/2024 48 Bilirubin, Total (mg/dL) Date Value 03/20/2024 0.6 AST (U/L) Date Value 03/20/2024 8 (L) ALT (U/L) Date Value 03/20/2024 <5 (L) YOGI (no units) Date Value 05/20/2017 Positive (A) Rheumatoid Factor (IU/mL) Date Value 05/20/2017 <10 MEDICATIONS: metoprolol tartrate, short acting, (LOPRESSOR) 50 mg tablet Take 1 tablet by mouth two times a day. ferrous gluconate 256 mg (28 mg iron) tab Take 1 tablet by mouth two times a day. carbidopa-levodopa (SINEMET) 25-100 mg per tablet Take 1 tablet daily at 0600AM, 1 tablet daily at 1100AM and 1 tablet daily at 1600PM folic acid 1 mg tablet Take 1 tablet by mouth once daily. gabapentin (NEURONTIN) 300 mg capsule Take 1 capsule by mouth two times a day. atorvastatin (LIPITOR) 40 mg tablet Take 1 tablet by mouth daily at bedtime. For cholesterol. tamsulosin (FLOMAX) 0.4 mg Take 2 capsules by mouth once daily. glimepiride (AMARYL) 4 mg tablet Take 1 tablet by mouth two times a day with meals. sertraline (ZOLOFT) 50 mg tablet Take 1 tablet by mouth once daily. SITagliptin phosphate (JANUVIA) 50 mg tablet Take 1 tablet by mouth once daily. metFORMIN ER (GLUCOPHAGE XR) 500 mg 24 hr tablet Take 1 tablet by mouth two times a day before meals. furosemide (LASIX) 40 mg tablet Take 40 mg by mouth once daily. cyanocobalamin (VITAMIN B-12) 1,000 mcg tab Take 1 tablet by mouth once daily. blood sugar diagnostic (BLOOD GLUCOSE TEST) test strip Test blood sugar(s) 1 times daily. Dx: Type 1 DM - Controlled E10.9 Insulin: No aspirin, enteric coated (ASPIRIN, ENTERIC COATED) 81 mg EC tablet Take 81 mg by mouth once daily. 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 Splenic artery aneurysm (HCC) repeat scans showed no change/not identified FAMILY HISTORY Problem Relation Age of Onset Coronary Artery Disease Mother Coronary Artery Disease Father Coronary Artery Disease Brother Heart disease Brother Heart disease Maternal Grandmother Heart disease Maternal Grandfather Heart disease Paternal Grandmother Heart disease Paternal Grandfather SOCIAL HISTORY Social History Tobacco Use Smoking status: Former Types: Cigars Smokeless tobacco: Never Tobacco comments: cigars-6 a day Vaping Use Vaping status: Never Used Substance Use Topics Alcohol use: No Drug use: No PHYSICAL EXAMINATION BP 108/72 Pulse 72 Wt 128.8 kg (284 lb) SpO2 98% BMI 40.75 kg/m GENERAL EXAM: General appearance: NAD, pleasant. HEENT: NC/AT, nasal congestion absent, no oral lesions, membranes moist. NECK: ROM nml. Lungs: CTA bilaterally. No wheezes present. CV: RRR nl S1, S2 Extr: No cyanosis, clubbing or edema. Skin: Cool to touch. NEUROLOGICAL EXAM: General: Masked facies. Awake, alert, oriented x3 (person,place,time), speech fluent, no dysarthria; comprehension, naming, repetition intact. CN: PERRL, EOMI and without nystagmus, VFF to confrontation, facial sensation and strength are normal and symmetric, hearing is intact to finger rub bilaterally, palate and tongue movements are intact and symmetric. SCM and trapezius strength normal. Motor: Increased tone gwendolyn UEs. No focal weakness except that due to pain in the R shoulder. Coordination: FNF intact but negin, ALEX decreased in gwendolyn hands, resting tremor in gwendolyn UEs. Sensation: Light touch and vibration decreased distal to knees gwendolyn. No evidence of neglect. Gait: Needs sig assist to rise from chair, stooped posture, shuffling gait, unsteady even with walker. Assessment and Plan: ASSESSMENT/PLAN: 1. Parkinson's disease, unspecified whether dyskinesia present, unspecified whether manifestations fluctuate (HCC) - ICD9: 332.0, ICD10: G20.A1 (primary diagnosis) Patient non-compliant with meds as Rx'd as above. Current exam showing progression of PD, but difficult to assess effectiveness of meds with pt not taking dose since 6AM (7+ hours ago). Again d/w pt and his the etiology, physiology and treatment of PD and the manner in which Sinemet works including its duration of action. Given significant symptoms, will restart patient on Sinemet 25/100mg but would like patient to take QID (6AM, 10AM, 2PM and 6PM). SE and ADRs d/w pt and his . In addition he is not active. Needs exercise. Consult placed to PT, but pt wanting therapy at home. Explained therapy at a PT location would be more effective. Will have them further d/w PT. 2. Spinal stenosis of lumbar region with neurogenic claudication - ICD9: 724.03, ICD10: M48.062 Lower back pain, radiating down legs when ambulating. MRI L spine with no recent imaging with concern for stenosis. 3. Acute pain of left shoulder due to trauma - ICD9: 719.41, 338.11, ICD10: M25.512, G89.11 XR results pending, but suspect rotator cuff injury by history. Thus, will also place order for MRISHOULDER WO IVCON LEFT. If XR shows obvious source of pain, then can d/c MRI. He will need ortho evaluation. 4. Neuropathy - ICD9: 355.9, ICD10: G62.9 Stable, no pain is peripheral distribution. History of chemo as well as DM. Continue to monitor. 5. Abnormality of gait - ICD9: 781.2, ICD10: R26.9 Multifactorial due to those above. - CONSULT TO PHYSICAL THERAPY 6. IRINEO on CPAP - ICD9: 327.23, ICD10: G47.33 7. Treatment-emergent central sleep apnea - ICD9: 327.29, ICD10: G47.39 8. Class 3 severe obesity with body mass index (BMI) of 40.0 to 44.9 in adult, unspecified obesity type, unspecified whether serious comorbidity present (HCC) - ICD9: 278.01, V85.41, ICD10: E66.813, E66.01, Z68.41 PAP data download pending. Still subjective mask leaks. Encouraged compliance. Further comments once PAP data known. Arsh Otto MD I spent a total of 40+ minutes on the date of the service which included preparing to see the patient, [id number] patient care, completing clinical documentation, obtaining and/or reviewing separately obtained history, performing a medically appropriate examination, counseling and educating the pa tient/family/caregiver, ordering medications, tests, or procedures, communicating with other HCPs (not separately reported), and communicating results to the patient/family/caregiver. documented in this encounter[facility] History of Present illness Narrative* Melissa Goodwin RT(R) - 03/27/2024 10:50 AM EST Radiology Service Progress Note PATIENT NAME: Axel Serrano DATE OF SERVICE: March 27, 2024 TIME: 10:48 AM PATIENT IDENTITY VERIFICATION COMPLETED USING TWO (2) IDENTIFIERS: Name and Date of confirmedby patient verbally. FALL SCREENING: Has the patient had 2 falls in the last year or 1 fall with injury or currently using an Ambulatory Assistive Device (Walker, Cane, Wheelchair, Crutches, etc.)? Yes, Patient High Riskfor Falls What interventions were put in place to prevent falls during this visit? Offered Assistance with Transfers/Clothing, Instructed Patient to Remain Seated (Not on Exam Table) Until Exam, and Increased Observations by Caregivers PATIENT GENDER DATA: Male PATIENT RELEVANT IMPLANT DATA REVIEWED: Yes PATIENT PRESENTS WITH AN IMPLANTABLE OR ATTACHED QUALITY AND RELIABILITY ENGINEER: No RADIOLOGY DEPARTMENT: General X-ray: Exam(s) Completed: Upper Extremity X- Ray(s): Shoulder, AP / TRUE AP / AXILLARY left PERIPHERAL IV DATA: Not applicable SIGNED BY: RT Antonio(R) March 27, 2024 10:48 AM documented in this encounterCh[facility] History of Present illness Narrative* Arsh Polk MD - 03/27/2024 9:47 AM EST Patient presents with: 6 Month Exam HPI: Patient presents today for office visit for follow up. DM: Does not check his sugars at home. Takes all meds consistently. Watches diet "somewhat". Has numbness in feet. No lesions. HLD: No myalgias. Had a bad fall a couple weeks ago. Was walking with a cane into an establishment and tripped over mat on ground and fell face first. Hit his face and bruised his left side. Has some open abrasions on left arm and left hand. Some swelling. Still with pain. Seen in [place] [facility] on 03/16/24. Follows with Neurology, Cardiology and Nephro and hematology. Sees neurology. Sees nephrology, Dr Laboy as well. Denies chest pain and shortness of breath. Had a mechanical fall on the . Hit his nose. No LOC. Did go to ER the next day. Has pain in his left arm. Pain over his left arm. Has a fair amount of bruising on his left upper arm. No headache. No nausea or vomiting. Had ct of head, c spine and xray of the left extremity. Latest Ref Rng 03/20/2024 WBC 3.70 - 11.00 k/uL 10.90 RBC 4.20 - 6.00 m/uL 3.55 (L) Hemoglobin 13.0 - 17.0 g/dL 10.3 (L) Hematocrit 39.0 - 51.0 % 31.0 (L) MCV 80.0 - 100.0 fL 87.3 MCH 26.0 - 34.0 pg 29.0 MCHC 30.5 - 36.0 g/dL 33.2 RDW-CV 11.5 - 15.0 % 14.6 Platelet Count 150 - 400 k/uL 181 MPV 9.0 - 12.7 fL 9.7 Neut% % 79.7 Abs Neut (ANC) 1.45 - 7.50 k/uL 8.68 (H) Lymph% % 8.3 Abs Lymph 1.00 - 4.00 k/uL 0.91 (L) Camp% % 7.9 Abs Camp <0.87 k/uL 0.86 Eosin% % 3.1 Abs Eosin <0.46 k/uL 0.34 Baso% % 0.4 Abs Baso <0.11 k/uL 0.04 Immature Gran % % 0.6 IMMATURE GRANS (ABS) <0.10 k/uL 0.07 NRBC /100 WBC 0.0 Absolute nRBC <0.01 k/uL <0.01 DTYPE Auto Cholesterol, Total <200 mg/dL 119 Triglyceride <150 mg/dL 133 HDL Cholesterol >39 mg/dL 36 (L) Non HDL Cholesterol <130 mg/dL 83 Fasting Time hrs 12 VLDL Cholesterol <30 mg/dL 27 TC:HDL Ratio <5.10 3.31 LDL Cholesterol <100 mg/dL 56 LDL:HDL Ratio <2.54 1.56 Albumin 3.9 - 4.9 g/dL 3.5 (L) Bilirubin, Total 0.2 - 1.3 mg/dL 0.6 Bilirubin, Direct <0.2 mg/dL 0.2 (H) Alkaline Phosphatase 38 - 113 U/L 48 AST 14 - 40 U/L 8 (L) ALT 10 - 54 U/L <5 (L) Protein, Total 6.3 - 8.0 g/dL 6.5 Iron 41 - 186 ug/dL 37 (L) TIBC 232 - 386 ug/dL 200 (L) Transferrin Saturation 15.0 - 57.0 % 18.5 Hemoglobin A1C 4.3 - 5.6 % 6.8 (H) Estimated Average Glucose mg/dL 148 Vitamin B12 232 - 1,245 pg/mL 1,060 Folate >4.7 ng/mL >20.0 Legend: (L) Low (H) High MEDICATIONS: Current Outpatient Medications Medication Sig metoprolol tartrate, short acting, (LOPRESSOR) 50 mg tablet Take 1 tablet by mouth two times a day. ferrous gluconate 256 mg (28 mg iron) tab Take 1 tablet by mouth two times a day. carbidopa-levodopa (SINEMET) 25-100 mg per tablet Take 1 tablet daily at 0600AM, 1 tablet daily at 1100AM and 1 tablet daily at 1600PM folic acid 1 mg tablet Take 1 tablet by mouth once daily. gabapentin (NEURONTIN) 300 mg capsule Take 1 capsule by mouth two times a day. atorvastatin (LIPITOR) 40 mg tablet Take 1 tablet by mouth daily at bedtime. For cholesterol. tamsulosin (FLOMAX) 0.4 mg Take 2 capsules by mouth once daily. glimepiride (AMARYL) 4 mg tablet Take 1 tablet by mouth two times a day with meals. sertraline (ZOLOFT) 50 mg tablet Take 1 tablet by mouth once daily. SITagliptin phosphate (JANUVIA) 50 mg tablet Take 1 tablet by mouth once daily. metFORMIN ER (GLUCOPHAGE XR) 500 mg 24 hr tablet Take 1 tablet by mouth two times a day before meals. furosemide (LASIX) 40 mg tablet Take 40 mg by mouth once daily. cyanocobalamin (VITAMIN B-12) 1,000 mcg tab Take 1 tablet by mouth once daily. blood sugar diagnostic (BLOOD GLUCOSE TEST) test strip Test blood sugar(s) 1 times daily. Dx: Type 1 DM - Controlled E10.9 Insulin: No aspirin, enteric coated (ASPIRIN, ENTERIC COATED) 81 mg EC tablet Take 81 mg by mouth once daily. LANCETS USE DIRECTED No current facility-administered medications for this visit. ALLERGIES: ALLERGIES Allergen Reactions Mai Inhibitors Other: See Comments Hyperkalemia Atorvastatin Myalgia Pravastatin Myalgia Ujdqygy-Pjl-Moa Red* Myalgia 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 Splenic artery aneurysm (HCC) repeat scans showed no change/not identified PAST SURGICAL HISTORY Procedure Laterality Date CHOLECYSTECTOMY COLONOSCOPY FLX DX W/COLLJ SPEC WHEN PFRMD 07/13/2005 COLONOSCOPY FLX DX W/COLLJ SPEC WHEN PFRMD 03/11/2015 Colonoscopy COLONOSCOPY SCREENING 11/12/2021 Dr Cano no repeat due to age ESOPHAGOGASTRODUODENOSCOPY TRANSORAL DIAGNOSTIC 03/11/2015 EGD PAST SURGICAL HISTORY OF 2020 Aortic Valve Replacement FAMILY HISTORY Problem Relation Age of Onset Coronary Artery Disease Mother Coronary Artery Disease Father Coronary Artery Disease Brother Heart disease Brother Heart disease Maternal Grandmother Heart disease Maternal Grandfather Heart disease Paternal Grandmother Heart disease Paternal Grandfather Social History Tobacco Use Smoking status: Former Types: Cigars Smokeless tobacco: Never Tobacco comments: cigars-6 a day Vaping Use Vaping status: Never Used Substance Use Topics Alcohol use: No Drug use: No Reviewed current medications, allergies, past medical history, surgical history, family history andsocial history today. REVIEW OF SYSTEMS All other reviewed and negative other than HPI. HEALTH MAINTENANCE: Reviewed health maintenance issues today and recommended the following in detail. Urine Albumin:Creatinine Ratio due on 11/18/2023 Covid-19 Vaccine() due on 03/28/2024 VITALS: BP 94/62 Pulse 72 Ht 177.8 cm (5' 10") Wt 128.8 kg (284 lb) SpO2 95% BMI 40.75 kg/m Last 4 Encounter Wt Readings: Date: Wt: 03/06/2024 139.7 kg (308 lb) 02/07/2024 133.8 kg (295 lb) 02/02/2024 135.6 kg (298 lb 15.1 oz) 01/26/2024 136 kg (299 lb 13.2 oz) PHYSICAL EXAMINATION: General appearance: Well appearing, alert, in no acute distress, well-hydrated, well nourished. Skin: Skin color, texture, turgor normal, no suspicious rashes or lesions Head: Normocephalic, no masses, lesions, tenderness or abnormalities Lungs: Lungs clear to auscultation. No wheezing, rhonchi, rales Heart: RRR without murmur, gallop, or rubs. No ectopy Abdomen: Normal abdominal exam, Abdomen soft, non-tender. Bowel sounds normal. No masses, organomegaly Extremities: No deformities, edema, skin discoloration, clubbing or cyanosis. Good capillary refill. Musculoskeletal: No joint swelling, deformity, or tenderness Decreased range of motion of shoulder. Large hematoma. No deformity. ASSESSMENT/PLAN: 1. Parkinson's disease, unspecified whether dyskinesia present, unspecified whether manifestations fluctuate ([facility]) - ICD9: 332.0, ICD10: G20.A1 (primary diagnosis) - continue to follow with neurology. 2. Essential hypertension, benign - ICD9: 401.1, ICD10: I10 - Controlled 3. Mixed hyperlipidemia - ICD9: 272.2, ICD10: E78.2 - Controlled - Counseled on healthy diet and regular exercise - BASIC METABOLIC PANEL 4. Hypertensive kidney disease with stage 3 chronic kidney disease, unspecified whether stage 3a or3b CKD ([facility]) - ICD9: 403.90, 585.3, ICD10: I12.9, N18.30 - stable. 5. Coronary artery disease involving [place] coronary artery of [place] heart without angina pectoris- ICD9: 414.01, ICD10: I25.10 - stable. 6. IRINEO (obstructive sleep apnea) - ICD9: 327.23, ICD10: G47.33 - benefiting from treatment. 7. Anemia due to vitamin B12 deficiency, unspecified B12 deficiency type - ICD9: 281.1, ICD10: D51.9 - stable. 8. Type 2 diabetes mellitus with stage 3 chronic kidney disease, without long- term current use of insulin, unspecified whether stage 3a or 3b CKD ([facility]) - ICD9: 250.40, 585.3, ICD10: E11.22, N18.30 - follow labs. - HEMOGLOBIN A1C 9. 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) ([facility]) - ICD9: 285.21, 585.3, ICD10: N18.32, D63.1 - stable. 10. Vitamin D deficiency - ICD9: 268.9, ICD10: E55.9 - stable. 11. BMI 40.0-44.9, adult (HCC) - ICD9: V85.41, ICD10: Z68.41 - stable. 12. Acute pain of left shoulder - ICD9: 719.41, ICD10: M25.512 - consider ortho. Ice alternating with heat. - XR SHOULDER GENERAL 3V OR MORE AP/TRUE AP/OTHER LEFT Arsh Polk MD documented in this encounterCh[facility]11-12-[facility] Telephone encounter Note * Telephone Encounter - Carole Cerrato RN - 03/21/2024 10:44 AM EST Patient has 6 month follow up appt with Dr. Polk on 03/27/24. Pt had multiple lab tests completed recently. Asking if Dr. Polk wanted to add any other labs before seeing him next week? Please call patient's with response. Thank you. [facility]11-12-[facility] Miscellaneous Notes* Telephone Encounter - Carole Cerrato RN - 03/21/2024 10:44 AM EST Patient has 6 month follow up appt with Dr. Polk on 03/27/24. Pt had multiple lab tests completed recently. Asking if Dr. Polk wanted to add any other labs before seeing him next week? Please call patient's with response. Thank you. documented in this encounterCh[facility]11-11-2024 Nurse Note* Maral Brush LPN - 03/20/2024 10:36 AM EST Injection deferred, parameters not met HGB 10.3 Maral Brush LPN [place] [id number] Nurse Note* Maral Brush LPN - 03/20/2024 10:36 AM EST Injection deferred, parameters not met HGB 10.3 Maral Brush LPN documented in this encounterChillic[facility]10-28-20[facility] History of Present illness Narrative* Yenny Bill - 03/06/2024 11:50 AM EDT Progress Note Axel Serrano 1940 Encounter date: 03/07/2024 HPI: Axel Serrano is a 83 year old gentleman with PMHx o T2DM, Parkinson's, HTN, HLD, aortic stenosis, CKD, IRINEO, TIA, anemia, and DLBCL s/p CALGB protocol 67863: 6 cycles R-EPOCH until September 2006 and consolidation XRT at [facility] (Dr. Winn records in care everywhere), presenting as referral from his PCP, Dr. Polk for further anemia workup. Hgb has been gradually decreasing over the last year orso. Thorough workup for anemia completed. Folate deficiency corrected. No iron or b12 deficiency. Denies new aches or pains today. Chronic back pain stable. Some R side rib pain s/p fall in shower into toilet resulting in rib fx >10 years ago. Denies new lumps or bumps. No SOB, CP, or palpitations. No DOVER, dizziness, or changes in vision. Denies N/V/C/D. No changes in bowel or bladder habits.No hematuria, hematochezia, occult stool negative. No rash or skin changes. Denies recent bleeding or bruising. Hx of blood tx during clinical trial. No IV iron. Denies unintentional weight loss. 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 Some chemical exposure to round up (household use). BM bx in the past at [facility] while undergoing treatment for DLBCL. Denies know family hx of cancer or blood disorders. Last scope [address] Friend Interval Hx: Mr. Serrano presents today with his spouse. Overall feels well. Denies new issues. States that he did feel "a little more ambitious" following IV iron administration. Since last visit he did taper back down on carbidopa-levodopa. States higher dose made him feel off. Lower dose still helps withhis tremors. Spouse notes he has good and bad days. Denies recent illness, fevers, chills or NS. No hospital admissions or ED visits. Denies new aches or pains. No SOB, CP, or palpitations. No DOVER, dizziness, or changes in vision. Denies N/V/C/D. No changes in bowel or bladder habits. No rash or skin changes. Denies bleeding or bruising. Spends >50% day in recliner. 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 Splenic artery aneurysm (HCC) repeat scans showed no change/not identified PAST SURGICAL HISTORY Procedure Laterality Date CHOLECYSTECTOMY COLONOSCOPY FLX DX W/COLLJ SPEC WHEN PFRMD 07/13/2005 COLONOSCOPY FLX DX W/COLLJ SPEC WHEN PFRMD 03/11/2015 Colonoscopy COLONOSCOPY SCREENING 11/12/2021 Dr Cano no repeat due to age ESOPHAGOGASTRODUODENOSCOPY TRANSORAL DIAGNOSTIC 03/11/2015 EGD PAST SURGICAL HISTORY OF 2020 Aortic Valve Replacement Current Outpatient Medications Medication Sig Dispense Refill metoprolol tartrate, short acting, (LOPRESSOR) 50 mg tablet Take 1 tablet by mouth two times a day.180 tablet 3 ferrous gluconate 256 mg (28 mg iron) tab Take 1 tablet by mouth two times a day. 180 tablet 1 carbidopa-levodopa (SINEMET) 25-100 mg per tablet Take 1 tablet daily at 0600AM, 1 tablet daily at 1100AM and 1 tablet daily at 1600PM 270 tablet 3 folic acid 1 mg tablet Take 1 tablet by mouth once daily. 30 tablet 11 gabapentin (NEURONTIN) 300 mg capsule Take 1 capsule by mouth two times a day. 60 capsule 11 atorvastatin (LIPITOR) 40 mg tablet Take 1 tablet by mouth daily at bedtime. For cholesterol. 90 tablet 3 tamsulosin (FLOMAX) 0.4 mg Take 2 capsules by mouth once daily. glimepiride (AMARYL) 4 mg tablet Take 1 tablet by mouth two times a day with meals. 180 tablet 3 sertraline (ZOLOFT) 50 mg tablet Take 1 tablet by mouth once daily. 90 tablet 3 SITagliptin phosphate (JANUVIA) 50 mg tablet Take 1 tablet by mouth once daily. 90 tablet 3 metFORMIN ER (GLUCOPHAGE XR) 500 mg 24 hr tablet Take 1 tablet by mouth two times a day before meals. 180 tablet 3 furosemide (LASIX) 40 mg tablet Take 40 mg by mouth once daily. aspirin, enteric coated (ASPIRIN, ENTERIC COATED) 81 mg EC tablet Take 81 mg by mouth once daily. cyanocobalamin (VITAMIN B-12) 1,000 mcg tab Take 1 tablet by mouth once daily. (Patient not taking:Reported on 02/07/2024) 30 tablet 11 blood sugar diagnostic (BLOOD GLUCOSE TEST) test strip Test blood sugar(s) 1 times daily. Dx: Type 1 DM - Controlled E10.9 Insulin: No 50 Strip 11 Saw Misenheimer 160 mg capsule Take 300 mg by mouth once daily. (Patient not taking: Reported on 03/06/2024) LANCETS USE DIRECTED 100 0 No current facility-administered medications for this visit. ALLERGIES Allergen Reactions Mai Inhibitors Other: See Comments Hyperkalemia Atorvastatin Myalgia Pravastatin Myalgia Pbwbgis-Per-Ogn Red* Myalgia FAMILY HISTORY Problem Relation Age of Onset Coronary Artery Disease Mother Coronary Artery Disease Father Coronary Artery Disease Brother Heart disease Brother Heart disease Maternal Grandmother Heart disease Maternal Grandfather Heart disease Paternal Grandmother Heart disease Paternal Grandfather Social History Tobacco Use Smoking status: Former Types: Cigars Smokeless tobacco: Never Tobacco comments: cigars-6 a day Vaping Use Vaping status: Never Used Substance Use Topics Alcohol use: No Drug use: No Review of Systems: Negative except as noted in HPI reviewed 03/07/2024 Physical Exam: BP 146/91 Pulse 65 Temp (Src) 96.7 (Temporal) Wt 308 lb (139.7kg) SpO2 99% General: Age-appropriate well developed. Appears well. HEENT: Normocephalic, no sclera icterus, external ears normal, oral cavity clear. Neck: Supple, no thyroid nodules, no JVD. Chest: Clear bilaterally, no wheezes, not labored. Heart: Normal S1 and S2, no abnormal sounds Abdomen: Soft, nontender, nondistended, bowel sounds present, no organomegaly or mass, no rigidity. Extremities: No cyanosis, clubbing, gross deformities, or palpable cords. Neurological: Cranial nerves II through XII are intact bilaterally, strength normal in the upper and lower extremities, no focal deficits. Skin: Warm and dry with no rashes or ulcerations. Nodes: No palpable adenopathy in the cervical, supraclavicular, infraclavicular, or axillary regions. Hematologic: no bruising or petechiae. Psychiatric: Alert and oriented x3. Emotional well-being assessment was performed. Pt denies depression, distress, and or problems with coping or adjustment. I have performed the physical exam today (03/07/2024) and have edited the note to correlate with current findings. Lab Results Component Value Date WBC 8.30 03/06/2024 HB 10.8 (L) 03/06/2024 MCV 90.5 03/06/2024 PLT 187 03/06/2024 Lab Results Component Value Date NA 138 01/17/2024 K 5.0 01/17/2024 CO2 23 01/17/2024 BUN 30 (H) 01/17/2024 CREAT 1.86 (H) 01/17/2024 TBILI 0.5 01/17/2024 TPROT 6.3 01/17/2024 ALB 3.5 (L) 01/17/2024 ALKPHOS 49 01/17/2024 ALT <5 (L) 01/17/2024 AST 9 (L) 01/17/2024 Latest Reference Range & Units 11/03/23 09:07 11/29/23 12:06 01/17/24 10:42 eGFR >=60 mL/min/1.73m 40 (L) 35 (L) Vitamin B12 232 - 1,245 pg/mL 941 Folate >4.7 ng/mL >20.0 Ferritin 30.3 - 565.7 ng/mL 233.0 566.0 (H) Iron 41 - 186 ug/dL 55 47 TIBC 232 - 386 ug/dL 254 235 Transferrin Saturation 15.0 - 57.0 % 21.7 20.0 (L): Data is abnormally low (H): Data is abnormally high Assessment and Plan: Mr. Serrano is a pleasant 83 year old gentleman presenting for anemia workup Anemia, CKD - dicussed potential causes of anemia with patient and spouse in detail today not limited to kidney/liver dysfunction, bone marrow disorders, chronic blood loss, etc. Reviewed likely multifactorial, CKD significant contributor - discussed possible need for bone marrow bx, pt and spouse acknowledged. Hold off for now. - CBC stable, CMP reflective of CKD, SPEP and urine protein negative for M protein, k/l ratio normal. - completed IV iron sucrose 200mg x5 with minimal improvement in CBC, - discussed epo administration now that Iron is appropriate - received 1 dose of epo with significant improvement. Hgb 10.8 today - no injection today - continue to follow with neuro - continue to monitor labs. Continue with CBC/possible aranesp every 2 weeks. Discussed spacing out visits if remains stable Yenny Bill APRN.IGNITER CAPPER I spent a total of 30 minutes on the date of the service which included preparing to see the patient, [id number] patient care, completing clinical documentation, obtaining and/or reviewing separately obtained history, and counseling and educating the patient/family/caregiver. Portions of this note including HPI, ROS, impression/plan may have been copied forward as to provide important historical information essential in contributing to medical decision making. Documentation has been reviewed and edited as necessary to support clinical decision making for today's visit and to reflect my own independent evaluation of this patient. [facility]* Delma Tobias LPN - 03/06/2024 10:55 AM EDT Aranesp Injection deferred, treatment parameter not met, hgb 10.8 Delma Tobias LPN [facility] Note* Delma Tobias LPN - 03/06/2024 10:55 AM EDT Aranesp Injection deferred, treatment parameter not met, hgb 10.8 Delma Tobias LPN documented in this encounterCh[facility]10-[facility] Telephone encounter Note * Telephone Encounter - Karson Johansen LPN - 03/06/2024 8:56 AM EDT Prescription Refill Information The patient has been identified by name and date of : Yes Caregiver verified no other encounters exist for this prescription request: Yes Caregiver confirmed with patient/requestor that no other refills are due, in the near future, with this provider at this time: Yes The last office visit in the department: 02/02/24 Does the patient have a future office visit with this provider/department: Yes, 03/27/24 Requested Prescriptions Pending Prescriptions Disp Refills metoprolol tartrate, short acting, (LOPRESSOR) 50 mg tablet 180 tablet 3 Sig: Take 1 tablet by mouth two times a day. ferrous gluconate 256 mg (28 mg iron) tab 180 tablet 1 Sig: Take 1 tablet by mouth two times a day. Karson Johansen LPN March 06, 2024 8:56 AM [facility]10[facility] Miscellaneous Notes* Telephone Encounter - Karson Johansen LPN - 03/06/2024 8:56 AM EDT Prescription Refill Information The patient has been identified by name and date of : Yes Caregiver verified no other encounters exist for this prescription request: Yes Caregiver confirmed with patient/requestor that no other refills are due, in the near future, with this provider at this time: Yes The last office visit in the department: 02/02/24 Does the patient have a future office visit with this provider/department: Yes, 03/27/24 Requested Prescriptions Pending Prescriptions Disp Refills metoprolol tartrate, short acting, (LOPRESSOR) 50 mg tablet 180 tablet 3 Sig: Take 1 tablet by mouth two times a day. ferrous gluconate 256 mg (28 mg iron) tab 180 tablet 1 Sig: Take 1 tablet by mouth two times a day. Karson Johansen LPN March 06, 2024 8:56 AM documented in this encounterCh[facility] Nurse Note* Maral Brush LPN - 02/21/2024 11:12 AM EDT Injection deferred, parameters not met HGB 10.7 Maral Brush LPN [facility] Note* Maral Brush LPN - 02/21/2024 11:12 AM EDT Injection deferred, parameters not met HGB 10.7 Maral Brush LPN documented in this encounterCh[facility]09[facility] Telephone encounter Note * Telephone Encounter - Bozena Avitia - 02/07/2024 4:29 PM EDT Scheduled as directed. Bozena Avitia [facility]09-30[facility] Miscellaneous Notes* Telephone Encounter - Bozena Avitia - 02/07/2024 4:29 PM EDT Scheduled as directed. Bozena Avitia * Telephone Encounter - Yenny Bill - 02/07/2024 2:22 PM EDT Can you please add OV with 03/06 injection? Thank you! Yenny Bill APRN.IGNITER CAPPER documented in this encounterCh[facility]09-30-[facility]24 Telephone encounter Note * Telephone Encounter - Yenny Bill - 02/07/2024 2:22 PM EDT Can you please add OV with 03/06 injection? Thank you! Yenny Bill APRN.IGNITER CAPPER [facility] Work Phone: 1(381) 874-876209-30-2024 Nurse Note* Maral Brush LPN - 02/07/2024 11:30 AM EDT Patient presents with: Imm/Inj Pt is identified by name and birthdate: Yes. Allergies and medications reviewed. Latex allergy? No. Does this patient have: Unplanned weight loss or gain of greater than 10 pounds, or a change of appetite over the last year? No Does the patient have any concerns about safety in the home/falls? Not at risk for falls Has the patient fallen in the past year? No Does the patient have difficulty performing or completing routine daily living activities? No Does this patient have concerns about personal safety? No Is patient having pain? Pain: No=0 (pain 0 on a scale of 0-10). Health Maintenance: Reviewed and updated. Does patient have MyChart access or Caregiver proxy: yes Pt/Caregiver willingness and readiness to learn assessed: Yes. Barriers: none aranesp injection administered, right arm, tolerated well, no immediate adverse reactions noted. Maral Brush LPN [facility] Nurse Note* Maral Brush LPN - 02/07/2024 11:30 AM EDT Patient presents with: Imm/Inj Pt is identified by name and birthdate: Yes. Allergies and medications reviewed. Latex allergy? No. Does this patient have: Unplanned weight loss or gain of greater than 10 pounds, or a change of appetite over the last year? No Does the patient have any concerns about safety in the home/falls? Not at risk for falls Has the patient fallen in the past year? No Does the patient have difficulty performing or completing routine daily living activities? No Does this patient have concerns about personal safety? No Is patient having pain? Pain: No=0 (pain 0 on a scale of 0-10). Health Maintenance: Reviewed and updated. Does patient have MyChart access or Caregiver proxy: yes Pt/Caregiver willingness and readiness to learn assessed: Yes. Barriers: none aranesp injection administered, right arm, tolerated well, no immediate adverse reactions noted. Maral Brush LPN documented in this encounterCh[facility]09-25-[facility] History of Present illness Narrative* Arsh Polk MD - 02/02/2024 3:45 PM EDT Patient presents with: Follow Up HPI: Patient presents today for office visit for follow up. Follow up rib fractures from fall. Feeling somewhat better. No shortness of breath or cough. Using ice to help. Overall doing. No headaches or numbness or tingling. Using tylenol. Note was copied and pasted, without alteration from express care: Nontoxic-appearing male presents urgent care chief complaint right rib pain. Patient states he fell10 days ago striking his right side of his rib on the nightstand. Presents today for evaluation. States symptoms were improving and then noticed some increased pain today. Denies any other injuries. No head neck or back pain. No LOC. Is not on blood thinners. Denies any hemoptysis shortness of breath or difficulty breathing. Past medical history prescription medications allergies reviewed. .Patient presents with: right rib pain: Fell 10 days ago Xray: IMPRESSION: Fractures of the lateral right eighth and ninth ribs. No pleural effusion or pneumothorax. Got iron iv's Saw hematology:note copied and pasted from note Anemia - dicussed potential causes of anemia with patient and spouse in detail today not limited to kidney/liver dysfunction, bone marrow disorders, chronic blood loss, etc. Reviewed likely multifactorial, CKD significant contributor - discussed possible need for bone marrow bx, pt and spouse acknowledged. Hold off for now. - check labs , CBC, CMP, LDH, SPEP, urine protein - CBC stable, CMP reflective of CKD, SPEP and urine protein negative for M protein, k/l ratio normal. - completed IV iron sucrose 200mg x5 with minimal improvement in CBC. - discussed epo administration. Iron is appropriate - continue to follow with neuro - encouraged GI work up. - continue to monitor labs. MEDICATIONS: Current Outpatient Medications Medication Sig carbidopa-levodopa (SINEMET) 25-100 mg per tablet Take 1 tablet daily at 0600AM, 1 tablet daily at 1100AM and 1 tablet daily at 1600PM folic acid 1 mg tablet Take 1 tablet by mouth once daily. gabapentin (NEURONTIN) 300 mg capsule Take 1 capsule by mouth two times a day. atorvastatin (LIPITOR) 40 mg tablet Take 1 tablet by mouth daily at bedtime. For cholesterol. tamsulosin (FLOMAX) 0.4 mg Take 2 capsules by mouth once daily. glimepiride (AMARYL) 4 mg tablet Take 1 tablet by mouth two times a day with meals. ferrous gluconate 256 mg (28 mg iron) tab Take 1 tablet by mouth two times a day. sertraline (ZOLOFT) 50 mg tablet Take 1 tablet by mouth once daily. SITagliptin phosphate (JANUVIA) 50 mg tablet Take 1 tablet by mouth once daily. metFORMIN ER (GLUCOPHAGE XR) 500 mg 24 hr tablet Take 1 tablet by mouth two times a day before meals. metoprolol tartrate, short acting, (LOPRESSOR) 50 mg tablet Take 1 tablet by mouth two times a day. furosemide (LASIX) 40 mg tablet Take 40 mg by mouth once daily. cyanocobalamin (VITAMIN B-12) 1,000 mcg tab Take 1 tablet by mouth once daily. blood sugar diagnostic (BLOOD GLUCOSE TEST) test strip Test blood sugar(s) 1 times daily. Dx: Type 1 DM - Controlled E10.9 Insulin: No aspirin, enteric coated (ASPIRIN, ENTERIC COATED) 81 mg EC tablet Take 81 mg by mouth once daily. Saw Misenheimer 160 mg capsule Take 300 mg by mouth once daily. LANCETS USE DIRECTED No current facility-administered medications for this visit. ALLERGIES: ALLERGIES Allergen Reactions Mai Inhibitors Other: See Comments Hyperkalemia Atorvastatin Myalgia Pravastatin Myalgia Kxadnyi-Wpq-Cfd Red* Myalgia 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 Splenic artery aneurysm (HCC) repeat scans showed no change/not identified PAST SURGICAL HISTORY Procedure Laterality Date CHOLECYSTECTOMY COLONOSCOPY FLX DX W/COLLJ SPEC WHEN PFRMD 07/13/2005 COLONOSCOPY FLX DX W/COLLJ SPEC WHEN PFRMD 03/11/2015 Colonoscopy COLONOSCOPY SCREENING 11/12/2021 Dr Cano no repeat due to age ESOPHAGOGASTRODUODENOSCOPY TRANSORAL DIAGNOSTIC 03/11/2015 EGD PAST SURGICAL HISTORY OF 2020 Aortic Valve Replacement FAMILY HISTORY Problem Relation Age of Onset Coronary Artery Disease Mother Coronary Artery Disease Father Coronary Artery Disease Brother Heart disease Brother Heart disease Maternal Grandmother Heart disease Maternal Grandfather Heart disease Paternal Grandmother Heart disease Paternal Grandfather Social History Tobacco Use Smoking status: Former Types: Cigars Smokeless tobacco: Never Tobacco comments: cigars-6 a day Vaping Use Vaping status: Never Used Substance Use Topics Alcohol use: No Drug use: No Reviewed current medications, allergies, past medical history, surgical history, family history andsocial history today. REVIEW OF SYSTEMS All other reviewed and negative other than HPI. VITALS: BP 110/58 Pulse (!) 55 Wt 135.6 kg (298 lb 15.1 oz) SpO2 95% BMI 42.32 kg/m Last 4 Encounter Wt Readings: Date: Wt: 02/02/2024 135.6 kg (298 lb 15.1 oz) 01/26/2024 136 kg (299 lb 13.2 oz) 01/19/2024 134.7 kg (297 lb) 12/29/2023 140.6 kg (310 lb) PHYSICAL EXAMINATION: General appearance: Well appearing, alert, in no acute distress, well-hydrated, well nourished. Skin: Skin color, texture, turgor normal, no suspicious rashes or lesions Head: Normocephalic, no masses, lesions, tenderness or abnormalities Lungs: Lungs clear to auscultation. No wheezing, rhonchi, rales Heart: RRR without murmur, gallop, or rubs. No ectopy Abdomen: Normal abdominal exam, Abdomen soft, non-tender. Bowel sounds normal. No masses, organomegaly Extremities: No deformities, edema, skin discoloration, clubbing or cyanosis. Good capillary refill. Chest wall tender to palpation. No deformity or step off. ASSESSMENT/PLAN: 1. Open fracture of multiple ribs of right side with routine healing, subsequent encounter - ICD9: V54.19, ICD10: S22.41XD (primary diagnosis) - ice and tylenol prn. - Call if symptoms worsen at all or if not better in one to two weeks 2. Stage 3 chronic kidney disease, 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) - ICD9: 585.3, ICD10: N18.30 - follow labs. 3. Anemia due to folic acid deficiency, unspecified deficiency type - ICD9: 281.2, ICD10: D52.9 - stable. 4. Essential hypertension, benign - ICD9: 401.1, ICD10: I10 - Controlled - Continue current medications 5. Hypertensive kidney disease with stage 3 chronic kidney disease, unspecified whether stage 3a or3b CKD (HCC) - ICD9: 403.90, 585.3, ICD10: I12.9, N18.30 - Controlled - Continue current medications 6. History of iron deficiency anemia - ICD9: V12.3, ICD10: Z86.2 - following with hematology Arsh Polk MD documented in [facility] encounter[facility] Telephone encounter Note * Telephone Encounter - Kayla Lloyd - 02/02/2024 3:37 PM EDT I called and spoke to patient's spouse Suri and scheduled Axel to come in Wednesday02/07/24 10:45 am lab and 11:15 am injection, she confirmed this date and times Kayla Newsome [facility]09-25-2024 Miscellaneous Notes* Telephone Encounter - Kayla Lloyd - 02/02/2024 3:37 PM EDT I called and spoke to patient's spouse Suri and scheduled Axel to come in Wednesday02/07/24 10:45 am lab and 11:15 am injection, she confirmed this date and times Kayla Sorensen Pss * Telephone Encounter - Kaylee Villa LPN - 02/02/2024 9:31 AM EDT PSS- please contact patient to schedule Q 2 week CBC/Aranesp. Will also need EPO level (lab) at 1 st injection appointment. Kaylee Villa LPN * Telephone Encounter - Yenny Bill - 02/02/2024 8:33 AM EDT I apologize! I know AVS was not clear. I was conferring with Dr. Aguila regarding bm bx. Overall count are stable. Pt with CKD. Remote hx of DLBCL s/p chemotherapy. Suggest proceeding with aranesp and reassessing response. Plan for Q2 week due to CKD. Will check epo with cbc at first injection. Yenny Bill APRN.IGNITER CAPPER * Telephone Encounter - Kaylee Villa LPN - 02/01/2024 12:35 PM EDT Just to clarify- this is the AVS for your OV 01/19/2024- Check-out Note Follow up pending labs Patient is not scheduled for any follow up including injections. Would you like him scheduled for Q 2 week CBC/Aranesp or did you want to wait for the EPO level? Kaylee Villa LPN * Telephone Encounter - Yenny Bill - 02/01/2024 8:48 AM EDT Can we go ahead and schedule him with repeat cbc and epo level day of inj? Yenny documented in this encounterCh[facility]09-[facility]24 Telephone encounter Note * Telephone Encounter - Kaylee Villa LPN - 02/02/2024 9:31 AM EDT PSS- please contact patient to schedule Q 2 week CBC/Aranesp. Will also need EPO level (lab) at 1 st injection appointment. Kaylee Villa LPN [facility] Telephone encounter Note* Telephone Encounter - Yenny Bill - 02/02/2024 8:33 AM EDT I apologize! I know AVS was not clear. I was conferring with Dr. Aguila regarding bm bx. Overall count are stable. Pt with CKD. Remote hx of DLBCL s/p chemotherapy. Suggest proceeding with aranesp and reassessing response. Plan for Q2 week due to CKD. Will check epo with cbc at first injection. Yenny Bill APRN.IGNITER CAPPER [facility] Work Phone: 1(364) 154-171309-24-2024 Telephone encounter Note* Telephone Encounter - Kaylee Villa LPN - 02/01/2024 12:35 PM EDT Just to clarify- this is the AVS for your OV 01/19/2024- Check-out Note Follow up pending labs Patient is not scheduled for any follow up including injections. Would you like him scheduled for Q 2 week CBC/Aranesp or did you want to wait for the EPO level? Kaylee Villa LPN [facility] Telephone encounter Note* Telephone Encounter - Yenny Bill - 02/01/2024 8:48 AM EDT Can we go ahead and schedule him with repeat cbc and epo level day of ? Yenny [facility]09-18-20[facility] History of Present illness Narrative* Michelle Latham RT(R) - 01/26/2024 12:50 PM EDT Radiology Service Progress Note PATIENT NAME: Axel Serrano DATE OF SERVICE: January 26, 2024 TIME: 12:50 PM PATIENT IDENTITY VERIFICATION COMPLETED USING TWO (2) IDENTIFIERS: Name and Date of confirmedby patient verbally. FALL SCREENING: Has the patient had 2 falls in the last year or 1 fall with injury or currently using an Ambulatory Assistive Device (Walker, Cane, Wheelchair, Crutches, etc.)? Yes, Patient High Riskfor Falls What interventions were put in place to prevent falls during this visit? Offered Assistance with Transfers/Clothing and Instructed Patient to Remain Seated (Not on Exam Table) Until Exam PATIENT GENDER DATA: Male PATIENT RELEVANT IMPLANT DATA REVIEWED: Not Applicable PATIENT PRESENTS WITH AN IMPLANTABLE OR ATTACHED QUALITY AND RELIABILITY ENGINEER: No RADIOLOGY DEPARTMENT: General X-ray: Exam(s) Completed: Rib X-Ray: Right PERIPHERAL IV DATA: Not applicable SIGNED BY: RT Harriet(R) January 26, 2024 12:50 PM documented in this encounterCh[facility]09-18-2024 History of Present illness Narrative* Gabriel Butler APRN.CNP - 01/26/2024 12:43 PM EDT Images from the original note were not included. Subjective HPI Nontoxic-appearing male presents urgent care chief complaint right rib pain. Patient states he fell10 days ago striking his right side of his rib on the nightstand. Presents today for evaluation. States symptoms were improving and then noticed some increased pain today. Denies any other injuries. No head neck or back pain. No LOC. Is not on blood thinners. Denies any hemoptysis shortness of breath or difficulty breathing. Past medical history prescription medications allergies reviewed. 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 Splenic artery aneurysm (HCC) repeat scans showed no change/not identified PAST SURGICAL HISTORY Procedure Laterality Date CHOLECYSTECTOMY COLONOSCOPY FLX DX W/COLLJ SPEC WHEN PFRMD 07/13/2005 COLONOSCOPY FLX DX W/COLLJ SPEC WHEN PFRMD 03/11/2015 Colonoscopy COLONOSCOPY SCREENING 11/12/2021 Dr Cano no repeat due to age ESOPHAGOGASTRODUODENOSCOPY TRANSORAL DIAGNOSTIC 03/11/2015 EGD PAST SURGICAL HISTORY OF 2020 Aortic Valve Replacement ALLERGIES Mai Inhibitors, Atorvastatin, Pravastatin, and Bzozbzp-Smd-Dqo Reductase Inhibitors MEDICATIONS carbidopa-levodopa (SINEMET) 25-100 mg per tablet Take 1 tablet daily at 0600AM, 1 tablet daily at 1100AM and 1 tablet daily at 1600PM folic acid 1 mg tablet Take 1 tablet by mouth once daily. gabapentin (NEURONTIN) 300 mg capsule Take 1 capsule by mouth two times a day. atorvastatin (LIPITOR) 40 mg tablet Take 1 tablet by mouth daily at bedtime. For cholesterol. tamsulosin (FLOMAX) 0.4 mg Take 2 capsules by mouth once daily. glimepiride (AMARYL) 4 mg tablet Take 1 tablet by mouth two times a day with meals. ferrous gluconate 256 mg (28 mg iron) tab Take 1 tablet by mouth two times a day. sertraline (ZOLOFT) 50 mg tablet Take 1 tablet by mouth once daily. SITagliptin phosphate (JANUVIA) 50 mg tablet Take 1 tablet by mouth once daily. metFORMIN ER (GLUCOPHAGE XR) 500 mg 24 hr tablet Take 1 tablet by mouth two times a day before meals. metoprolol tartrate, short acting, (LOPRESSOR) 50 mg tablet Take 1 tablet by mouth two times a day. furosemide (LASIX) 40 mg tablet Take 40 mg by mouth once daily. cyanocobalamin (VITAMIN B-12) 1,000 mcg tab Take 1 tablet by mouth once daily. blood sugar diagnostic (BLOOD GLUCOSE TEST) test strip Test blood sugar(s) 1 times daily. Dx: Type 1 DM - Controlled E10.9 Insulin: No aspirin, enteric coated (ASPIRIN, ENTERIC COATED) 81 mg EC tablet Take 81 mg by mouth once daily. Saw Misenheimer 160 mg capsule Take 300 mg by mouth once daily. LANCETS USE DIRECTED FAMILY HISTORY Problem Relation Age of Onset Coronary Artery Disease Mother Coronary Artery Disease Father Coronary Artery Disease Brother Heart disease Brother Heart disease Maternal Grandmother Heart disease Maternal Grandfather Heart disease Paternal Grandmother Heart disease Paternal Grandfather Social History Tobacco Use Smoking status: Former Types: Cigars Smokeless tobacco: Never Tobacco comments: cigars-6 a day Vaping Use Vaping status: Never Used Substance Use Topics Alcohol use: No Drug use: No BP 132/82 Pulse 61 Temp 36.6 C (97.8 F) (Tympanic) Resp 16 Wt 136 kg (299 lb 13.2 oz) SpO2 98% BMI 42.45 kg/m Review of Systems Constitutional: Negative for chills, fever and malaise/fatigue. HENT: Negative for congestion, ear discharge, ear pain, sinus pain and sore throat. Eyes: Negative for blurred vision, pain, discharge and redness. Respiratory: Negative for cough, hemoptysis, sputum production, shortness of breath, wheezing and stridor. Cardiovascular: Negative for chest pain. Gastrointestinal: Negative for abdominal pain, diarrhea, nausea and vomiting. Musculoskeletal: Positive for falls. Negative for back pain, joint pain, myalgias and neck pain. Skin: Negative for itching and rash. Neurological: Negative for dizziness and headaches. Objective Physical Exam Constitutional: General: He is not in acute distress. Appearance: He is not toxic-appearing. HENT: Head: Normocephalic. Nose: Nose normal. Eyes: Pupils: Pupils are equal, round, and reactive to light. Cardiovascular: Rate and Rhythm: Normal rate. Pulmonary: Effort: Pulmonary effort is normal. No respiratory distress. Musculoskeletal: Arms: Cervical back: Normal range of motion. Comments: Pain to highlighted area. No crepitus. No deformities. Breath sounds equal unlabored. Skin: General: Skin is warm and dry. Comments: Healing ecchymosis/contusion noted highlighted area. Neurological: General: No focal deficit present. Mental Status: He is alert. ASSESSMENT/PLAN: 1. Rib pain on right side - ICD9: 786.50, ICD10: R07.81 (primary diagnosis) - XR RIBS/CHEST 3V AP RIB/OBLS/CXR RIGHT 2. Closed fracture of multiple ribs of right side, initial encounter - ICD9: 807.09, ICD10: S22.41XA IMPRESSION: Fractures of the lateral right eighth and ninth ribs. No pleural effusion or pneumothorax. Diagnosed with rib fracture of eighth and ninth rib. At this point patient is able to achieve pain management with OTC medications. Will follow-up with PCP as scheduled for reevaluation. Red flags for ER evaluation discussed. Patient was educated on supportive therapies. Patient was instructed to immediately proceed to emergency room for any new, worsening, or symptoms lasting longer than anticipated. The patient's clinical presentation is otherwise unremarkable at this time. Based on exam and clinical finding, the patient is stable for discharge. Plan of care was discussed with patient. Patient verbalizes understanding and agrees to plan of care. This note was generated using Tivity software. It may contain errors in wording, punctuation, or spelling. Gabriel Butler APRN.IGNITER CAPPER documented in this encounterCh[facility]09-16-[facility] History of Present illness Narrative* Yenny Bill - 01/24/2024 12:21 PM EDT Discussed with Dr. France. Tx for anemia of CKD with aranesp. Anemia of CKD, hx of chemotherapy in 2006 Hgb less than 10 Follow up OV in 3 months with labs. Yenny Bill APRN.IGNITER CAPPER documented in this encounterCh[facility]09-11-2024 History of Present illness Narrative* Yenny Bill - 01/19/2024 9:00 AM EDT Progress Note Axel Serrano 1940 Encounter date: 01/21/2024 HPI: Axel Serrano is a 83 year old gentleman with PMHx o T2DM, Parkinson's, HTN, HLD, aortic stenosis, CKD, IRINEO, TIA, anemia, and DLBCL s/p CALGB protocol 04742: 6 cycles R-EPOCH until September 2006 and consolidation XRT at [facility] (Dr. Winn records in care everywhere), presenting as referral from his PCP, Dr. Polk for further anemia workup. Hgb has been gradually decreasing over the last year orso. Thorough workup for anemia completed. Folate deficiency corrected. No iron or b12 deficiency. Denies new aches or pains today. Chronic back pain stable. Some R side rib pain s/p fall in shower into toilet resulting in rib fx >10 years ago. Denies new lumps or bumps. No SOB, CP, or palpitations. No DOVER, dizziness, or changes in vision. Denies N/V/C/D. No changes in bowel or bladder habits.No hematuria, hematochezia, occult stool negative. No rash or skin changes. Denies recent bleeding or bruising. Hx of blood tx during clinical trial. No IV iron. Denies unintentional weight loss. 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 Some chemical exposure to round up (household use). BM bx in the past at [facility] while undergoing treatment for DLBCL. Denies know family hx of cancer or blood disorders. Last scope [address] Cano Interval Hx: Mr. Serrano presents today with his spouse. Overall feels well. Denies new issues. States that he did feel "a little more ambitious" following IV iron administration. Since last visit he did taper back down on carbidopa-levodopa. States higher dose made him feel off. Lower dose still helps withhis tremors. Denies recent illness, fevers, chills or NS. No hospital admissions or ED visits. Denies new aches or pains. No SOB, CP, or palpitations. No DOVER, dizziness, or changes in vision. Denies N/V/C/D. No changes in bowel or bladder habits. No rash or skin changes. Denies bleeding or bruising. 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 Splenic artery aneurysm (HCC) repeat scans showed no change/not identified PAST SURGICAL HISTORY Procedure Laterality Date CHOLECYSTECTOMY COLONOSCOPY FLX DX W/COLLJ SPEC WHEN PFRMD 07/13/2005 COLONOSCOPY FLX DX W/COLLJ SPEC WHEN PFRMD 03/11/2015 Colonoscopy COLONOSCOPY SCREENING 11/12/2021 Dr Cano no repeat due to age ESOPHAGOGASTRODUODENOSCOPY TRANSORAL DIAGNOSTIC 03/11/2015 EGD PAST SURGICAL HISTORY OF 2020 Aortic Valve Replacement Current Outpatient Medications Medication Sig Dispense Refill carbidopa-levodopa (SINEMET) 25-100 mg per tablet Take 1 tablet daily at 0600AM, 1 tablet daily at 1100AM and 1 tablet daily at 1600PM 270 tablet 3 folic acid 1 mg tablet Take 1 tablet by mouth once daily. 30 tablet 11 gabapentin (NEURONTIN) 300 mg capsule Take 1 capsule by mouth two times a day. 60 capsule 11 atorvastatin (LIPITOR) 40 mg tablet Take 1 tablet by mouth daily at bedtime. For cholesterol. 90 tablet 3 tamsulosin (FLOMAX) 0.4 mg Take 2 capsules by mouth once daily. glimepiride (AMARYL) 4 mg tablet Take 1 tablet by mouth two times a day with meals. 180 tablet 3 ferrous gluconate 256 mg (28 mg iron) tab Take 1 tablet by mouth two times a day. 180 tablet 1 sertraline (ZOLOFT) 50 mg tablet Take 1 tablet by mouth once daily. 90 tablet 3 SITagliptin phosphate (JANUVIA) 50 mg tablet Take 1 tablet by mouth once daily. 90 tablet 3 metFORMIN ER (GLUCOPHAGE XR) 500 mg 24 hr tablet Take 1 tablet by mouth two times a day before meals. 180 tablet 3 metoprolol tartrate, short acting, (LOPRESSOR) 50 mg tablet Take 1 tablet by mouth two times a day.180 tablet 3 furosemide (LASIX) 40 mg tablet Take 40 mg by mouth once daily. cyanocobalamin (VITAMIN B-12) 1,000 mcg tab Take 1 tablet by mouth once daily. 30 tablet 11 blood sugar diagnostic (BLOOD GLUCOSE TEST) test strip Test blood sugar(s) 1 times daily. Dx: Type 1 DM - Controlled E10.9 Insulin: No 50 Strip 11 aspirin, enteric coated (ASPIRIN, ENTERIC COATED) 81 mg EC tablet Take 81 mg by mouth once daily. Saw Misenheimer 160 mg capsule Take 300 mg by mouth once daily. LANCETS USE DIRECTED 100 0 No current facility-administered medications for this visit. ALLERGIES Allergen Reactions Mai Inhibitors Other: See Comments Hyperkalemia Atorvastatin Myalgia Pravastatin Myalgia [id number]-Bkh Red* Myalgia FAMILY HISTORY Problem Relation Age of Onset Coronary Artery Disease Mother Coronary Artery Disease Father Coronary Artery Disease Brother Heart disease Brother Heart disease Maternal Grandmother Heart disease Maternal Grandfather Heart disease Paternal Grandmother Heart disease Paternal Grandfather Social History Tobacco Use Smoking status: Former Types: Cigars Smokeless tobacco: Never Tobacco comments: cigars-6 a day Vaping Use Vaping status: Never Used Substance Use Topics Alcohol use: No Drug use: No Review of Systems: Negative except as noted in HPI reviewed 01/21/2024 Physical Exam: BP 145/76 Pulse 59 Temp (Src) 97.1 (Temporal) Wt 297 lb (134.7kg) SpO2 97% General: Age-appropriate well developed. Appears well. HEENT: Normocephalic, no sclera icterus, external ears normal, oral cavity clear. Neck: Supple, no thyroid nodules, no JVD. Chest: Clear bilaterally, no wheezes, not labored. Heart: Normal S1 and S2, no abnormal sounds Abdomen: Soft, nontender, nondistended, bowel sounds present, no organomegaly or mass, no rigidity. Extremities: No cyanosis, clubbing, gross deformities, or palpable cords. Neurological: Cranial nerves II through XII are intact bilaterally, strength normal in the upper and lower extremities, no focal deficits. Skin: Warm and dry with no rashes or ulcerations. Nodes: No palpable adenopathy in the cervical, supraclavicular, infraclavicular, or axillary regions. Hematologic: no bruising or petechiae. Psychiatric: Alert and oriented x3. Emotional well-being assessment was performed. Pt denies depression, distress, and or problems with coping or adjustment. Lab Results Component Value Date WBC 6.99 01/17/2024 HB 9.9 (L) 01/17/2024 MCV 86.5 01/17/2024 PLT 172 01/17/2024 Lab Results Component Value Date NA 138 01/17/2024 K 5.0 01/17/2024 CO2 23 01/17/2024 BUN 30 (H) 01/17/2024 CREAT 1.86 (H) 01/17/2024 TBILI 0.5 01/17/2024 TPROT 6.3 01/17/2024 ALB 3.5 (L) 01/17/2024 ALKPHOS 49 01/17/2024 ALT <5 (L) 01/17/2024 AST 9 (L) 01/17/2024 Latest Reference Range & Units 11/03/23 09:07 11/29/23 12:06 01/17/24 10:42 eGFR >=60 mL/min/1.73m 40 (L) 35 (L) Vitamin B12 232 - 1,245 pg/mL 941 Folate >4.7 ng/mL >20.0 Ferritin 30.3 - 565.7 ng/mL 233.0 566.0 (H) Iron 41 - 186 ug/dL 55 47 TIBC 232 - 386 ug/dL 254 235 Transferrin Saturation 15.0 - 57.0 % 21.7 20.0 (L): Data is abnormally low (H): Data is abnormally high Assessment and Plan: Mr. Serrano is a pleasant 83 year old gentleman presenting for anemia workup Anemia - dicussed potential causes of anemia with patient and spouse in detail today not limited to kidney/liver dysfunction, bone marrow disorders, chronic blood loss, etc. Reviewed likely multifactorial, CKD significant contributor - discussed possible need for bone marrow bx, pt and spouse acknowledged. Hold off for now. - check labs , CBC, CMP, LDH, SPEP, urine protein - CBC stable, CMP reflective of CKD, SPEP and urine protein negative for M protein, k/l ratio normal. - completed IV iron sucrose 200mg x5 with minimal improvement in CBC. - discussed epo administration. Iron is appropriate - continue to follow with neuro - encouraged GI work up. - continue to monitor labs. Yenny Bill APRN.IGNITER CAPPER I spent a total of 30 minutes on the date of the service which included preparing to see the patient, [id number] patient care, completing clinical documentation, obtaining and/or reviewing separately obtained history, and ordering medications, tests, or procedures. Portions of this note including HPI, ROS, impression/plan may have been copied forward as to provide important historical information essential in contributing to medical decision making. Documentation has been reviewed and edited as necessary to support clinical decision making for today's visit and to reflect my own independent evaluation of this patient. documented in this encounterCh[facility]08-21-2024 Instructions* Patient Instructions* Kaylee Herrmann PA-C - 12/29/2023 3:47 PM EDT Will continue with Sinemet 25/100mg three times a day Increase physical activity and make sure you stay hydrated. Follow up in four months with Dr. Otto documented in this encounterCh[facility]08-21-2024 History of Present illness Narrative* Kaylee Herrmann PA-C - 12/29/2023 3:07 PM EDT ESTABLISHED PATIENT VISIT Last visit: 09/06/[address] Otto ASSESSMENT/PLAN: 1. Parkinson's disease, unspecified whether dyskinesia present, unspecified whether manifestations fluctuate (HCC) - ICD9: 332.0, ICD10: G20.A1 (primary diagnosis) 2. Weakness of both lower extremities - ICD9: 729.89, ICD10: R29.898 3. Lumbar degenerative disc disease - ICD9: 722.52, ICD10: M51.36 4. Sciatica of right side - ICD9: 724.3, ICD10: M54.31 5. Neuropathy - ICD9: 355.9, ICD10: G62.9 6. Abnormality of gait - ICD9: 781.2, ICD10: R26.9 Patient with multiple physical complaints as above, of which it is difficult to determine the primary cause. Exam would suggest under treated Parkinson's disease (tremor, gait, impaired coordination...) . However, likely component of lumbar spine disease as well. Regarding PD, patient state he could not tolerate higher dose of Sinemet IR as above. Thus, will continue on Sinemet IR 25/100mg 1 tab TID but add Sinemet CR 50/200 mg twice daily as follows: Continue Sinemet 25/100mg, 1 tab, at 0600, at 1100, and then at 1600. Start Sinemet CR 50/200mg, 1 tab at 0600 and 1 tablet 1800. In addition, patient with very sedentary lifestyle. Explained the need for exercise from standpointof slowing the PD disease process. Referral made to PT/OT. May also help lumbar disease. As for lumbar disease, offered repeat imagine as well as referral to spine and pain, but pt declines both. Note denies red flags such as b/b dysfunction. Encouraged weight loss. 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 No changes made to gabapentin dosing based on impaired renal function. 7. IRINEO on CPAP - ICD9: 327.23, ICD10: G47.33 8. Treatment-emergent central sleep apnea - ICD9: 327.29, ICD10: G47.39 9. Class 3 severe obesity with body mass index (BMI) of 40.0 to 44.9 in adult, unspecified obesity type, unspecified whether serious comorbidity present (HCC) - ICD9: 278.01, V85.41, ICD10: E66.01, Z68.41 Patient with IRINEO, not controlled by ASV at the present. No central events of significance on download. Discussed repeating titration but pt declines. Patient with significant mask leak nightly and uncertain why based on history. Will refer back to VERNA Lieberman for formal PAP mask fitting session. Reminded patient and his the need to clean and replace PAP equipment regularly. Advised pt not to drive or operate heavy machinery if sleepy. Arsh Otto MD CHIEF COMPLAINT: follow up HISTORY OF PRESENT ILLNESS: Axel Serrano is a 83 year old male, There were no vitals taken for this visit. with a PMH significant for Parkinson's disease, diabetic polyneuropathy, hypersomnia, tremor, hyperlipidemia, hypertension, aortic stenosis, STEMI, CKD stage III, IRINEO, DM type 2, lymphoma, anxiety and depression, kidney stones. Last seen by Dr. Otto for PD on 09/06/23, cannot tolerate more than 1 tablet of sinemet tid. Has significant lower back pain as well. Gabapentin 300mg bid for neuropathy. Referred to PT/OT, continuing Sinemet IR 25/100mg one tab tid and added sinemet CR 50/200mg twice daily. Patient presents with his for follow-up appointment. Patient notes no significant change from previous appointment. Notes that he did try the extended release Sinemet about a week but notes significant dizziness, described as a motion type feeling while he was on it. States that this completely resolved after he stopped taking the medication. No new symptoms, no falls since last appointment,no other dizziness or lightheadedness. No hallucinations, no change in gait, no constipation, no REM sleep disturbance. Notes that he is sleeping well throughout the night but does have his sleep apnea machine dislodged some nights. No worsening gait since last appointment. Notes that he was unableto do the physical therapy occupational therapy with all of his other doctors appointments. Notes he is also getting iron infusions as well due to his anemia. Does not that he has been dreaming a lotbut no nightmares. Has been using a walker at home as well as a cane when he is outside. No new concerns today. REVIEW OF SYSTEMS GENERAL:No weight loss, malaise or fevers. HEENT:Negative for frequent or significant headaches, No changes in hearing or vision, no nose bleeds or other nasal problems NECK:Negative for lumps, goiter, pain and significant neck swelling RESPIRATORY: Negative for cough, wheezing or shortness of breath. CARDIOVASCULAR: Negative for chest pain, leg swelling or palpitations. GASTROINTESTINAL: Negative for abdominal discomfort, blood in stools or black stools or change in bowel habits GENITOURINARY: No history of dysuria, frequency or incontinence MUSCULOSKELETAL: Negative for joint pain or swelling, back pain or muscle pain. NEUROLOGIC:Negative for focal numbness or weakness, headaches and dizziness or syncope, vision changes, speech/languag changes - EXCEPT that as per HPI above. SKIN:Negative for lesions, rash, and itching. PSYCHIATRIC: Negative for sleep disturbance, mood disorder and recent psychosocial stressors. HEMATOLOGIC/LYMPHATIC/IMMUNOLOGIC:Negative for prolonged bleeding, bruising easily or swollen nodes. ENDOCRINE: Negative for cold or heat intolerance, polyuria, polydipsia and goiter. The remainder of the ROS was reviewed and is negative. LAB/IMAGING: Those performed since patient's last visit have been reviewed. No new imaging MEDICATIONS: folic acid 1 mg tablet Take 1 tablet by mouth once daily. gabapentin (NEURONTIN) 300 mg capsule Take 1 capsule by mouth two times a day. atorvastatin (LIPITOR) 40 mg tablet Take 1 tablet by mouth daily at bedtime. For cholesterol. tamsulosin (FLOMAX) 0.4 mg Take 2 capsules by mouth once daily. glimepiride (AMARYL) 4 mg tablet Take 1 tablet by mouth two times a day with meals. ferrous gluconate 256 mg (28 mg iron) tab Take 1 tablet by mouth two times a day. carbidopa-levodopa CR (SINEMET CR) 50-200 mg per tablet Take 1 tablet at 0600 and 1 tablet at 1800.(Patient not taking: Reported on 11/29/2023) carbidopa-levodopa (SINEMET) 25-100 mg per tablet Take 1 tablet daily at 0600AM, 1 tablet daily at 1100AM and 1 tablet daily at 1600PM sertraline (ZOLOFT) 50 mg tablet Take 1 tablet by mouth once daily. SITagliptin phosphate (JANUVIA) 50 mg tablet Take 1 tablet by mouth once daily. metFORMIN ER (GLUCOPHAGE XR) 500 mg 24 hr tablet Take 1 tablet by mouth two times a day before meals. metoprolol tartrate, short acting, (LOPRESSOR) 50 mg tablet Take 1 tablet by mouth two times a day. furosemide (LASIX) 40 mg tablet Take 40 mg by mouth once daily. cyanocobalamin (VITAMIN B-12) 1,000 mcg tab Take 1 tablet by mouth once daily. blood sugar diagnostic (BLOOD GLUCOSE TEST) test strip Test blood sugar(s) 1 times daily. Dx: Type 1 DM - Controlled E10.9 Insulin: No aspirin, enteric coated (ASPIRIN, ENTERIC COATED) 81 mg EC tablet Take 81 mg by mouth once daily. Saw Misenheimer 160 mg capsule Take 160 mg by mouth once daily. LANCETS USE DIRECTED HISTORIES PAST MEDICAL HISTORY 12/02/2023: 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) No date: Cardiomyopathy in other diseases classified elsewhere 09/16/2017: CKD (chronic kidney disease) No date: Diabetes mellitus without mention of complication Comment: Diabetes mellitus 07/13/2005: Diverticulosis of colon (without mention of hemorrhage) No date: Essential hypertension 07/13/2005: External hemorrhoids without mention of complication No date: Hyperplasia of prostate 07/13/2005: Internal hemorrhoids without mention of complication 12/02/2023: Iron malabsorption No date: 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: 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 No date: Splenic artery aneurysm (HCC) Comment: repeat scans showed no change/not identified FAMILY HISTORY Problem Relation Age of Onset Coronary Artery Disease Mother Coronary Artery Disease Father Coronary Artery Disease Brother Heart disease Brother Heart disease Maternal Grandmother Heart disease Maternal Grandfather Heart disease Paternal Grandmother Heart disease Paternal Grandfather SOCIAL HISTORY Social History Tobacco Use Smoking status: Former Types: Cigars Smokeless tobacco: Never Tobacco comments: cigars-6 a day Vaping Use Vaping status: Never Used Substance Use Topics Alcohol use: No Drug use: No PHYSICAL EXAMINATION There were no vitals taken for this visit. GENERAL EXAM: General appearance: NAD, pleasant. HEENT: NC/AT, nasal congestion absent, no oral lesions, membranes moist. NECK: No masses, supple. Lungs: Breathing comfortably Extr: Moves all extremities without difficulty Skin: Cool to touch. No rash. NEUROLOGICAL EXAM: General: Awake, alert, oriented x3 (person,place,time), speech fluent, no dysarthria; comprehension, naming, repetition intact. Short and group home memory intact. CN: PERRL, EOMI and without nystagmus, VFF to confrontation, facial sensation and strength are normal and symmetric, hearing is intact to finger rub bilaterally, palate and tongue movements are intact and symmetric. SCM and trapezius strength normal. Motor: Normal tone, bulk and strength (5/5) bilaterally (throughout extremities x4). Reflexes: 2/4 to the upper extremities, 0 out of 4 to the lower extremities bilaterally Coordination: Resting tremor of the left upper extremity, slight increased rigidity to the right upper extremity and left upper extremity, right worse than left. Sensation: Decreased vibration to lower extremities throughout Gait: Stooped posture, slowed gait, using wheelchair back into the office today. Assessment and Plan: ASSESSMENT/PLAN: 1. Weakness of both lower extremities - ICD9: 729.89, ICD10: R29.898 (primary diagnosis) 2. Parkinson's disease, unspecified whether dyskinesia present, unspecified whether manifestations fluctuate (HCC) - ICD9: 332.0, ICD10: G20.A1 3. Sciatica of right side - ICD9: 724.3, ICD10: M54.31 4. Neuropathy - ICD9: 355.9, ICD10: G62.9 5. Abnormality of gait - ICD9: 781.2, ICD10: R26.9 6. Depression, unspecified depression type - ICD9: 311, ICD10: F32.A 7. Lumbar degenerative disc disease - ICD9: 722.52, ICD10: M51.36 Patient grossly unchanged from last appointment. Was started on controlled- release Sinemet but did not tolerate this well due to significant dizziness. Stopped it after 1 week and this resolved. Notes that he still has some tremor in his left upper extremity but otherwise feels that his Parkinson'sis well- controlled. However, notes that his gait is unchanged and he still shuffles, uses a walker at home and a cane when he is outside. Was able to complete the physical therapy, states that he still overwhelmed with many of his appointments that he does not want to do anything else. noting some depression at home because of all the medications and appointments he has to go through. Does walk around his house quite often but not a lot exercise at home, no presyncope or falls since last appointment. No new symptoms today. Does not that he has been sleeping well with his CPAP machine butsometimes wakes up with the machine off of his face. Denies any history of REM sleep disturbance oracting out his dreams at night. No hallucinations, memory loss, issue constipation. Discussed at length with the patient's regimen same as he is becoming fatigued with medication changes and appointments. Will continue with 1 tablet of Sinemet 25/100 mg 3 times daily. Refills for this were sent. Did discuss physical therapy and patient deferring at this time. Emphasized the importance of physical activity at home and patient and understand and agree. Patient agreeable to treatment plan of care at this time, questions were answered. Patient to follow-up with Dr. Otto in 3 to 4 months or sooner should any symptoms change or worsen. Kaylee Herrmann PA-C I spent a total of 30 minutes on the date of the service which included preparing to see the patient, [id number] patient care, completing clinical documentation, obtaining and/or reviewing separately obtained history, performing a medically appropriate examination, counseling and educating the pat ient/family/caregiver, and ordering medications, tests, or procedures. This document has been created with the use of voice recognition technology. It may contain inaccuracies: (e.g. misspellings, inaccurate syntax or word sense) that have escaped review. documented in this encounterCh[facility]08-12-[facility]24 Telephone encounter Note * Telephone Encounter - Romina Asher LPN - 12/20/2023 2:22 PM EDT Prescription Refill Information The patient has been identified by name and date of : Yes Caregiver verified no other encounters exist for this prescription request: Yes Caregiver confirmed with patient/requestor that no other refills are due, in the near future, with this provider at this time: Yes The last office visit in the department: 09/17/2023 Does the patient have a future office visit with this provider/department: Yes Requested Prescriptions Pending Prescriptions Disp Refills folic acid 1 mg tablet 30 tablet 11 Sig: Take 1 tablet by mouth once daily. Romina Asher LPN December 20, 2023 2:23 PM [facility]08-12-2024 Miscellaneous Notes* Telephone Encounter - Romina Asher LPN - 12/20/2023 2:22 PM EDT Prescription Refill Information The patient has been identified by name and date of : Yes Caregiver verified no other encounters exist for this prescription request: Yes Caregiver confirmed with patient/requestor that no other refills are due, in the near future, with this provider at this time: Yes The last office visit in the department: 09/17/2023 Does the patient have a future office visit with this provider/department: Yes Requested Prescriptions Pending Prescriptions Disp Refills folic acid 1 mg tablet 30 tablet 11 Sig: Take 1 tablet by mouth once daily. Romina Asher LPN December 20, 2023 2:23 PM documented in this encounterCh[facility]24 Telephone encounter Note * Telephone Encounter - Pretty Harden LPN - 12/13/2023 3:14 PM EDT TC to pts who voiced understanding. Pt is due for another mask and is going to [facility] Wednesday, will do another fitting then. Pretty Harden LPN [facility]08-05-2024 Miscellaneous Notes* Telephone Encounter - Pretty Harden LPN - 12/13/2023 3:14 PM EDT TC to pts who voiced understanding. Pt is due for another mask and is going to [facility] Wednesday, will do another fitting then. Pretty Harden LPN * Telephone Encounter - Marlen Madrigal APRN.CNP - 12/13/2023 9:38 AM EDT Please tell pt I reviewed a download from his ASV. Still having very large mask leaks. Residual number of apneas is better at 7. I think it would be normal if we could improve the leaks. I know he has had multiple mask fittings at [facility]. Marlen Madrigal APRN.BRIAN documented in this encounterCh[facility]ic[facility]08-[facility]-2024 Telephone encounter Note * Telephone Encounter - Marlen Madrigal APRN.BRIAN - 12/13/2023 9:38 AM EDT Please tell pt I reviewed a download from his ASV. Still having very large mask leaks. Residual number of apneas is better at 7. I think it would be normal if we could improve the leaks. I know he has had multiple mask fittings at [facility]. Marlen Madrigal APRN.IGNITER CAPPER [facility]07-26-2024 Telephone encounter Note* Telephone Encounter - Tawnya Bess - 12/03/2023 4:41 PM EDT Scheduled as directed. Tawnya Bess [facility]07-26-2024 Miscellaneous Notes* Telephone Encounter - Tawnya Bess - 12/03/2023 4:41 PM EDT Scheduled as directed. Tawnya Bess * Telephone Encounter - Yenny Bill - 12/02/2023 3:12 PM EDT Labs reviewed: labs negative for M protein. K/l ratio wnl. CKD. Plan to start with IV iron sucrose 200mg x5 for Called Mr. Serrano to discuss, labs reviewed with Rossy, pts spouse. Reviewed IV iron infusionsand dosage. Plan to recheck about 6 weeks following last IV iron dose. Possible addition of epo pending repeat labs. Pts spouse acknowledged. All questions answered at this time. PSR: can you please schedule for IV iron sucrose 200mg x5 followed by OV with repeat CBC, CMP, ironstudies about 6 weeks out from last IV iron infusion? Yenny Bill APRN.IGNITER CAPPER documented in this encounterChillicothe [facility]07-25-2024 Telephone encounter Note * Telephone Encounter - Yenny Bill - 12/02/2023 3:12 PM EDT Labs reviewed: labs negative for M protein. K/l ratio wnl. CKD. Plan to start with IV iron sucrose 200mg x5 for Called Mr. Serrano to discuss, labs reviewed with Rossy, pts spouse. Reviewed IV iron infusionsand dosage. Plan to recheck about 6 weeks following last IV iron dose. Possible addition of epo pending repeat labs. Pts spouse acknowledged. All questions answered at this time. PSR: can you please schedule for IV iron sucrose 200mg x5 followed by OV with repeat CBC, CMP, ironstudies about 6 weeks out from last IV iron infusion? Yenny Bill APRN.IGNITER CAPPER [facility] Work Phone: 1(764) 789-508607-22-2024 History of Present illness Narrative* Yenny Bill - 11/29/2023 10:55 AM EDT New Patient Progress Note Axel Serrano 1940 Encounter date: 11/29/2023 Cancer Staging No matching staging information was found for the patient. HPI: Axel Serrano is a 83 year old gentleman with PMHx o T2DM, Parkinson's, HTN, HLD, aortic stenosis, CKD, IRINEO, TIA, anemia, and DLBCL s/p CALGB protocol 63082: 6 cycles R-EPOCH until September 2006 and consolidation XRT at [facility] (Dr. Winn records in care everywhere), presenting as referral from his PCP, Dr. Polk for further anemia workup. Hgb has been gradually decreasing over the last year orso. Thorough workup for anemia completed. Folate deficiency corrected. No iron or b12 deficiency. Denies new aches or pains today. Chronic back pain stable. Some R side rib pain s/p fall in shower into toilet resulting in rib fx >10 years ago. Denies new lumps or bumps. No SOB, CP, or palpitations. No DOVER, dizziness, or changes in vision. Denies N/V/C/D. No changes in bowel or bladder habits.No hematuria, hematochezia, occult stool negative. No rash or skin changes. Denies recent bleeding or bruising. Hx of blood tx during clinical trial. No IV iron. Denies unintentional weight loss. 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 Some chemical exposure to round up (household use). BM bx in the past at [facility] while undergoing treatment for DLBCL. Denies know family hx of cancer or blood disorders. Last scope [address] 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 60 capsule 11 atorvastatin (LIPITOR) 40 mg tablet Take 1 tablet by mouth daily at bedtime. For cholesterol. 90 tablet 3 tamsulosin (FLOMAX) 0.4 mg Take 2 capsules by mouth once daily. glimepiride (AMARYL) 4 mg tablet Take 1 tablet by mouth two times a day with meals. 180 tablet 3 ferrous gluconate 256 mg (28 mg iron) tab Take 1 tablet by mouth two times a day. 180 tablet 1 carbidopa-levodopa (SINEMET) 25-100 mg per tablet Take 1 tablet daily at 0600AM, 1 tablet daily at 1100AM and 1 tablet daily at 1600PM 270 tablet 3 sertraline (ZOLOFT) 50 mg tablet Take 1 tablet by mouth once daily. 90 tablet 3 SITagliptin phosphate (JANUVIA) 50 mg tablet Take 1 tablet by mouth once daily. 90 tablet 3 metFORMIN ER (GLUCOPHAGE XR) 500 mg 24 hr tablet Take 1 tablet by mouth two times a day before meals. 180 tablet 3 metoprolol tartrate, short acting, (LOPRESSOR) 50 mg tablet Take 1 tablet by mouth two times a day.180 tablet 3 folic acid 1 mg tablet Take 1 tablet by mouth once daily. 30 tablet 11 furosemide (LASIX) 40 mg tablet Take 40 mg by mouth once daily. cyanocobalamin (VITAMIN B-12) 1,000 mcg tab Take 1 tablet by mouth once daily. 30 tablet 11 aspirin, enteric coated (ASPIRIN, ENTERIC COATED) 81 mg EC tablet Take 81 mg by mouth once daily. Saw Misenheimer 160 mg capsule Take 160 mg by mouth once daily. carbidopa-levodopa CR (SINEMET CR) 50-200 mg per tablet Take 1 tablet at 0600 and 1 tablet at 1800.(Patient not taking: Reported on 11/29/2023) 60 tablet 2 blood sugar diagnostic (BLOOD GLUCOSE TEST) test strip Test blood sugar(s) 1 times daily. Dx: Type 1 DM - Controlled E10.9 Insulin: No 50 Strip 11 LANCETS USE DIRECTED 100 0 No current facility-administered medications for this visit. ALLERGIES Allergen Reactions Mai Inhibitors Other: See Comments Hyperkalemia Atorvastatin Myalgia Pravastatin Myalgia Xxcmnxy-Swy-Apd Red* Myalgia FAMILY HISTORY Problem Relation Age of Onset Coronary Artery Disease Mother Coronary Artery Disease Father Coronary Artery Disease Brother Heart disease Brother Heart disease Maternal Grandmother Heart disease Maternal Grandfather Heart disease Paternal Grandmother Heart disease Paternal Grandfather Social History Tobacco Use Smoking status: Former Types: Cigars Smokeless tobacco: Never Tobacco comments: cigars-6 a day Vaping Use Vaping Use: Never used Substance Use Topics Alcohol use: No Drug use: No Review of Systems: Negative except as noted in HPI reviewed 11/29/2023 Physical Exam: BP 141/67 Pulse 59 Temp (Src) 97.4 (Temporal) Ht 5' 10.472" (1.79m) Wt 310 lb (140.6kg) SpO2 97% BMI 43.89 kg/(m^2). General: Age-appropriate well developed. Appears well. HEENT: Normocephalic, no sclera icterus, external ears normal, oral cavity clear. Neck: Supple, no thyroid nodules, no JVD. Chest: Clear bilaterally, no wheezes, not labored. Heart: Normal S1 and S2, no abnormal sounds Abdomen: Soft, nontender, nondistended, bowel sounds present, no organomegaly or mass, no rigidity. Extremities: No cyanosis, clubbing, gross deformities, or palpable cords. Neurological: Cranial nerves II through XII are intact bilaterally, strength normal in the upper and lower extremities, no focal deficits. Skin: Warm and dry with no rashes or ulcerations. Nodes: No palpable adenopathy in the cervical, supraclavicular, infraclavicular, or axillary regions. Hematologic: no bruising or petechiae. Psychiatric: Alert and oriented x3. Emotional well-being assessment was performed. Pt denies depression, distress, and or problems with coping or adjustment. Lab Results Component Value Date WBC 7.82 11/03/2023 HB 9.1 (L) 11/03/2023 MCV 90.0 11/03/2023 PLT 165 11/03/2023 Lab Results Component Value Date NA 138 10/19/2023 K 4.6 10/19/2023 CO2 22 10/19/2023 BUN 32 (H) 10/19/2023 CREAT 1.67 (H) 10/19/2023 TBILI 0.5 05/31/2023 TPROT 6.3 05/31/2023 ALB 3.4 (L) 05/31/2023 ALKPHOS 42 05/31/2023 ALT <5 (L) 05/31/2023 AST 11 (L) 05/31/2023 Latest Reference Range & Units 11/03/23 09:07 Vitamin B12 232 - 1,245 pg/mL 941 Folate >4.7 ng/mL >20.0 Ferritin 30.3 - 565.7 ng/mL 233.0 Iron 41 - 186 ug/dL 55 TIBC 232 - 386 ug/dL 254 Transferrin Saturation 15.0 - 57.0 % 21.7 Assessment and Plan: Mr. Serrano is a pleasant 83 year old gentleman presenting for anemia workup Anemia - dicussed potential causes of anemia with patient and spouse in detail today not limited to kidney/liver dysfunction, bone marrow disorders, chronic blood loss, etc. Reviewed likely multifactorial - check labs today, CBC, CMP, LDH, SPEP, urine protein. - discussed possible need for bone marrow bx pending labs, pt and spouse acknowledged. - encouraged GI work up. RTC pending labs. Yenny Bill APRN.BRIAN I spent a total of 60 minutes on the date of the service which included preparing to see the patient, [id number] patient care, completing clinical documentation, obtaining and/or reviewing separately obtained history, performing a medically appropriate examination, counseling and educating the pat ient/family/caregiver, and ordering medications, tests, or procedures. Portions of this note including HPI, ROS, impression/plan may have been copied forward as to provide important historical information essential in contributing to medical decision making. Documentation has been reviewed and edited as necessary to support clinical decision making for today's visit and to reflect my own independent evaluation of this patient. documented in this encounterCh[facility]07-[facility] Telephone encounter Note * Telephone Encounter - Lizzette Restrepo LPN - 11/15/2023 9:01 AM EDT Prescription Refill Information The patient has been identified by name and date of : Yes Caregiver verified no other encounters exist for this prescription request: Yes Caregiver confirmed with patient/requestor that no other refills are due, in the near future, with this provider at this time: Yes The last office visit in the department: 09/17/23 Does the patient have a future office visit with this provider/department: Yes Requested Prescriptions Pending Prescriptions Disp Refills gabapentin (NEURONTIN) 300 mg capsule 60 capsule 11 Sig: Take 1 capsule by mouth two times a day. Lizzette Restrepo LPN November 15, 2023 9:01 AM [facility]07-08-2024 Miscellaneous Notes* Telephone Encounter - Lizzette Restrepo LPN - 11/15/2023 9:01 AM EDT Prescription Refill Information The patient has been identified by name and date of : Yes Caregiver verified no other encounters exist for this prescription request: Yes Caregiver confirmed with patient/requestor that no other refills are due, in the near future, with this provider at this time: Yes The last office visit in the department: 09/17/23 Does the patient have a future office visit with this provider/department: Yes Requested Prescriptions Pending Prescriptions Disp Refills gabapentin (NEURONTIN) 300 mg capsule 60 capsule 11 Sig: Take 1 capsule by mouth two times a day. Lizzette Restrepo LPN November 15, 2023 9:01 AM documented in this encounterCh[facility]ic[facility]07-02-2024 Telephone encounter Note * Telephone Encounter - Bozena Avitia - 11/09/2023 4:41 PM EDT Spoke with patient's spouse and scheduled as directed. Bozena Avitia [facility]07-02-2024 Miscellaneous Notes* Telephone Encounter - Bozena Avitia - 11/09/2023 4:41 PM EDT Spoke with patient's spouse and scheduled as directed. Bozena Avitia * Telephone Encounter - Kaylee Villa LPN - 11/09/2023 9:55 AM EDT Ok to schedule with Yenny 11/29/2023. Kaylee Villa LPN * Telephone Encounter - Mariola Mckeon - 11/09/2023 9:22 AM EDT Received call from [facility] regarding referral. Please review and advise. * Telephone Encounter - Lizzette Restrepo LPN - 11/08/2023 12:57 PM EDT Spoke with /patient and they are agreeable to be seen. Please place referral and we can route to hem/oc scheduling pool. * Telephone Encounter - Arsh Polk MD - 11/08/2023 11:59 AM EDT Anemia still low. Stool test negative. May be related to his kidney disease. Has had gi work up in the past. If they are willing, we could have hematology look at him as well to make sure we are not missing anything. Let me know if willing. documented in this encounterCh[facility]ic[facility]07-[facility]-2024 Telephone encounter Note * Telephone Encounter - Kaylee Villa LPN - 11/09/2023 9:55 AM EDT Ok to schedule with Yenny 11/29/2023. Kaylee Villa LPN [facility]07-02-2024 Telephone encounter Note* Telephone Encounter - Mariola Mckeon - 11/09/2023 9:22 AM EDT Received call from [facility] regarding referral. Please review and advise. [facility] Work Phone: 1(629) 993-236807-01-2024 Telephone encounter Note* Telephone Encounter - Lizzette Restrepo LPN - 11/08/2023 12:57 PM EDT Spoke with /patient and they are agreeable to be seen. Please place referral and we can route to hem/oc scheduling pool. [facility]07-01-2024 Telephone encounter Note* Telephone Encounter - Arsh Polk MD - 11/08/2023 11:59 AM EDT Anemia still low. Stool test negative. May be related to his kidney disease. Has had gi work up in the past. If they are willing, we could have hematology look at him as well to make sure we are not missing anything. Let me know if willing. [facility]07-01-2024 Instructions* Patient Instructions* Marlen Madrigal APRN.CNP - 11/08/2023 10:41 AM EDT PAP Supply Guidelines Below are the guidelines for reordering your supplies. You will be responsible for your deductible,co-payments, and out of pocket expenses. Item Medicare & Commercial Insurance Medicaid & HCAP Nasal Mask (no headgear) 1 every 3 months 1 per year Nasal Mask Cushion 1 every month 2 per year Full Face Mask (no headgear) 1 every 3 months 1 per year Full Face Mask Cushion 1 every month *Self-Pay Nasal Pillows 2 every month 2 per year Headgear 1 every 6 months 1 per year Chin Strap 1 every 6 months 2 per year Tubing 1 every 3 months 1 per year Filters: Reusable 1 every 6 months 4 per year Filters: Disposable 2 every month 1 per month Humidifier Chamber(disposable) 1 every 6 months *Self-Pay documented in this encounterChillicothe [facility] Center07-01-2024 History of Present illness Narrative* Marlen Madrigal APRN.CNP - 11/08/2023 10:30 AM EDT Images from the original note were not included. [facility] Follow up/ Established patient visit Date of last visit : 09/06/23 The following Impression/Plan was copied and pasted from the patient's last [facility] visit on 09/06/23: ASSESSMENT/PLAN: 1. Parkinson's disease, unspecified whether dyskinesia present, unspecified whether manifestations fluctuate (HCC) - ICD9: 332.0, ICD10: G20.A1 (primary diagnosis) 2. Weakness of both lower extremities - ICD9: 729.89, ICD10: R29.898 3. Lumbar degenerative disc disease - ICD9: 722.52, ICD10: M51.36 4. Sciatica of right side - ICD9: 724.3, ICD10: M54.31 5. Neuropathy - ICD9: 355.9, ICD10: G62.9 6. Abnormality of gait - ICD9: 781.2, ICD10: R26.9 Patient with multiple physical complaints as above, of which it is difficult to determine the primary cause. Exam would suggest under treated Parkinson's disease (tremor, gait, impaired coordination...) . However, likely component of lumbar spine disease as well. Regarding PD, patient state he could not tolerate higher dose of Sinemet IR as above. Thus, will continue on Sinemet IR 25/100mg 1 tab TID but add Sinemet CR 50/200 mg twice daily as follows: Continue Sinemet 25/100mg, 1 tab, at 0600, at 1100, and then at 1600. Start Sinemet CR 50/200mg, 1 tab at 0600 and 1 tablet 1800. In addition, patient with very sedentary lifestyle. Explained the need for exercise from standpointof slowing the PD disease process. Referral made to PT/OT. May also help lumbar disease. As for lumbar disease, offered repeat imagine as well as referral to spine and pain, but pt declines both. Note denies red flags such as b/b dysfunction. Encouraged weight loss. 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 No changes made to gabapentin dosing based on impaired renal function. 7. IRINEO on CPAP - ICD9: 327.23, ICD10: G47.33 8. Treatment-emergent central sleep apnea - ICD9: 327.29, ICD10: G47.39 9. Class 3 severe obesity with body mass index (BMI) of 40.0 to 44.9 in adult, unspecified obesity type, unspecified whether serious comorbidity present (HCC) - ICD9: 278.01, V85.41, ICD10: E66.01, Z68.41 Patient with IRINEO, not controlled by ASV at the present. No central events of significance on download. Discussed repeating titration but pt declines. Patient with significant mask leak nightly and uncertain why based on history. Will refer back to VERNA Lieberman for formal PAP mask fitting session. Reminded patient and his the need to clean and replace PAP equipment regularly. Advised pt not to drive or operate heavy machinery if sleepy. Arsh Otto MD Here for follow up for IRINEO, TECSA; he faithfully uses ASV every night. He sleeps in a recliner. He has had issues with mask leaks, has had multiple mask fittings at [facility]. Using a hybrid FFM, reports this is the best fitting mask he has had, but does still awake with leaks. At last visit his residual AHI ws 17.6, it is now 8.6. His accompanies him. They have been for almost 58 yrs. They have a coffee/breakfast club 6 days a week. SLEEP APNEA Sleep apnea type : IRINEO, and TECSA Most Recent Apnea-Hypopnea Index (AHI): 30.9 on HSAT Treatment : PAP therapy DME: [facility] PAP History: Current PAP setting: ASV Reviewed objective PAP compliance data: Mask type: hybrid full face mask Mask issues: air leak There is a perceived benefit by the patient: better sleep SLEEP HYGIENE QUESTIONS: Bedtime : 10-11 pm Wake up Time : 530 am Time it takes to fall sleep : quick Number of times patient wakes up per night : 1-2x Reason (s) why patient wakes up during the night : dreams, mask leak Naps : Yes PATIENT-ENTERED QUESTIONNAIRE SLEEP SCORES 10/18/2022 PROMIS CAT Sleep Disturbance PROMIS Sleep Disturbance T-Score 58 (mild) PROMIS Sleep Disturbance Percentile 21 ALLERGIES Allergen Reactions Mai Inhibitors Other: See Comments Hyperkalemia Atorvastatin Myalgia Pravastatin Myalgia Kojryri-Ysh-Zqb Red* Myalgia CURRENT MEDICATIONS: atorvastatin (LIPITOR) 40 mg tablet Take 1 tablet by mouth daily at bedtime. For cholesterol. tamsulosin (FLOMAX) 0.4 mg Take 2 capsules by mouth once daily. glimepiride (AMARYL) 4 mg tablet Take 1 tablet by mouth two times a day with meals. ferrous gluconate 256 mg (28 mg iron) tab Take 1 tablet by mouth two times a day. carbidopa-levodopa (SINEMET) 25-100 mg per tablet Take 1 tablet daily at 0600AM, 1 tablet daily at 1100AM and 1 tablet daily at 1600PM sertraline (ZOLOFT) 50 mg tablet Take 1 tablet by mouth once daily. SITagliptin phosphate (JANUVIA) 50 mg tablet Take 1 tablet by mouth once daily. metFORMIN ER (GLUCOPHAGE XR) 500 mg 24 hr tablet Take 1 tablet by mouth two times a day before meals. metoprolol tartrate, short acting, (LOPRESSOR) 50 mg tablet Take 1 tablet by mouth two times a day. folic acid 1 mg tablet Take 1 tablet by mouth once daily. furosemide (LASIX) 40 mg tablet Take 40 mg by mouth once daily. cyanocobalamin (VITAMIN B-12) 1,000 mcg tab Take 1 tablet by mouth once daily. blood sugar diagnostic (BLOOD GLUCOSE TEST) test strip Test blood sugar(s) 1 times daily. Dx: Type 1 DM - Controlled E10.9 Insulin: No aspirin, enteric coated (ASPIRIN, ENTERIC COATED) 81 mg EC tablet Take 81 mg by mouth once daily. Saw Misenheimer 160 mg capsule Take 160 mg by mouth once daily. LANCETS USE DIRECTED carbidopa-levodopa CR (SINEMET CR) 50-200 mg per tablet Take 1 tablet at 0600 and 1 tablet at 1800.(Patient not taking: Reported on 11/08/2023) gabapentin (NEURONTIN) 300 mg capsule Take 1 capsule by mouth twice daily. PHYSICAL EXAMINATION: Vital Signs: BP 158/75 Pulse 61 Resp 18 Wt 134.3 kg (296 lb) SpO2 97% BMI 42.47 kg/m PHYSICAL EXAM: Pleasant, NAD, uses a wheelchair, obese IMPRESSION: Irineo (obstructive sleep apnea) (primary encounter diagnosis) Treatment-emergent central sleep apnea Axel Serrano is a 83 year old male with IRINEO, TECSA, improved residual AHI, mask leaks. PMH of Parkinson's, DM. Reviewed download with pt and , significant improvement in residual AHI, down to 8.6, still with large leaks but he is pleased with this hybrid FFM. Mask fitting was done with dentures, but he sleeps w/o dentures, so he plans to try sleeping w/ dentures vs w/o and tightening mask a little bit. Make sure to get a new mask cushion every month. --Patient is compliant with PAP therapy and reports subjective benefits from treatment --We reviewed PAP compliance report; AHI is almost normalized PLAN: - Continue ASV - Remember to clean your mask and equipment regularly, as directed. - You should be eligible for new supplies approximately every 3-6 months, depending on your insurance coverage. Contact your Durable Medical Equipment (DME) company for new supplies as needed. I'll check a download in a month Follow up 3 mos Marlen Madrigal APRN.BRIAN documented in this encounterChillicothe [facility]06-26-2024 Telephone encounter Note * Telephone Encounter - Lulu Calabrese LPN - 11/03/2023 4:34 PM EDT The patient has been identified by name and date of : Yes Caregiver verified no other encounters exist for this prescription request: Yes Caregiver confirmed with patient/requestor that no other refills are due, in the near future, with this provider at this time: Yes The last office visit in the department: 09/17/2023 Does the patient have a future office visit with this provider/department: Yes 03/27/2024 Requested Prescriptions Pending Prescriptions Disp Refills atorvastatin (LIPITOR) 40 mg tablet 90 tablet 3 Sig: Take 1 tablet by mouth daily at bedtime. For cholesterol. Lulu Calabrese LPN November 03, 2023 4:35 PM [facility]06-26-2024 Miscellaneous Notes* Telephone Encounter - Lulu Calabrese LPN - 11/03/2023 4:34 PM EDT The patient has been identified by name and date of : Yes Caregiver verified no other encounters exist for this prescription request: Yes Caregiver confirmed with patient/requestor that no other refills are due, in the near future, with this provider at this time: Yes The last office visit in the department: 09/17/2023 Does the patient have a future office visit with this provider/department: Yes 03/27/2024 Requested Prescriptions Pending Prescriptions Disp Refills atorvastatin (LIPITOR) 40 mg tablet 90 tablet 3 Sig: Take 1 tablet by mouth daily at bedtime. For cholesterol. Lulu Calabrese LPN November 03, 2023 4:35 PM documented in this encounterCh[facility] Telephone encounter Note * Telephone Encounter - Sedrick Epstein MA - 11/02/2023 9:20 AM EDT Images from the original note were not included. [facility]06-25-2024 Miscellaneous Notes* Telephone Encounter - Sedrick Epstein MA - 11/02/2023 9:20 AM EDT Images from the original note were not included. documented in this encounterCh[facility]06[facility] Telephone encounter Note * Telephone Encounter - Kaia Liu MA - 10/20/2023 11:43 AM EDT Patient was driving so spoke with Srui. Informed and verbalized understanding. Kaia Liu MA [facility]06-12-2024 Miscellaneous Notes* Telephone Encounter - Kaia Liu MA - 10/20/2023 11:43 AM EDT Patient was driving so spoke with Suri. Informed and verbalized understanding. Kaia Liu MA * Telephone Encounter - Arsh Polk MD - 10/20/2023 11:38 AM EDT Kidney function is slightly better and overall stable. Red count stable but slightly lower than it has been. Recheck labs in two weeks and ifobt documented in this encounterCh[facility] Telephone encounter Note * Telephone Encounter - Arsh Polk MD - 10/20/2023 11:38 AM EDT Kidney function is slightly better and overall stable. Red count stable but slightly lower than it has been. Recheck labs in two weeks and ifobt [facility]2024 History of Present illness Narrative* Arsh Polk MD - 09/17/2023 10:58 AM EDT Patient presents with: Follow Up HPI: Patient presents today for office visit for follow up. DM: Does not check sugars at home No vision changes. Due for exam Some numbness in feet. No lesions. Does not watch diet. No low sugars spells. Follows with Dr. Otto, Neurology. They are adding more sinemet. Has not felt well since taking the higher dose. Feels dizzy at times. Discussed his renal fluids. They had increased his flomax as well. He wants to stay on it now. HLD: No myalgias Some swelling to B/L feet Left is worse. Was not wearing his hose which might contribute. Is not worse than it has been. Weight is down slightly. Continues on Furosemide Denies chest pain and shortness of breath Follows with cardiology. Has upcoming appointment. Renal function is slightly worse. Anemia slightly worse. Treating his b12 and folate, however, he likely has some component of anemia of ckd, as well. IFOBT was negative., iron and ferritin are ok. Is on iron due to iron def anemia in the past and had colonscopy in 2021. No further work up per gi due to his age. Continues to follow with Dr Laboy. Sees her again next month. Latest Ref Rng 09/10/2023 WBC 3.70 - 11.00 k/uL 7.98 RBC 4.20 - 6.00 m/uL 3.38 (L) Hemoglobin 13.0 - 17.0 g/dL 9.6 (L) Hematocrit 39.0 - 51.0 % 30.0 (L) MCV 80.0 - 100.0 fL 88.8 MCH 26.0 - 34.0 pg 28.4 MCHC 30.5 - 36.0 g/dL 32.0 RDW-CV 11.5 - 15.0 % 14.8 Platelet Count 150 - 400 k/uL 191 MPV 9.0 - 12.7 fL 10.7 Neut% % 69.9 Abs Neut (ANC) 1.45 - 7.50 k/uL 5.58 Lymph% % 15.3 Abs Lymph 1.00 - 4.00 k/uL 1.22 Camp% % 8.3 Abs Camp <0.87 k/uL 0.66 Eosin% % 5.5 Abs Eosin <0.46 k/uL 0.44 Baso% % 0.5 Abs Baso <0.11 k/uL 0.04 Immature Gran % % 0.5 IMMATURE GRANS (ABS) <0.10 k/uL 0.04 NRBC /100 WBC 0.0 Absolute nRBC <0.01 k/uL <0.01 DTYPE Auto Glucose 74 - 99 mg/dL 128 (H) BUN 9 - 24 mg/dL 29 (H) Creatinine 0.73 - 1.22 mg/dL 1.98 (H) Sodium 136 - 144 mmol/L 139 Potassium 3.7 - 5.1 mmol/L 4.6 Chloride 97 - 105 mmol/L 104 CO2 22 - 30 mmol/L 24 Anion Gap 9 - 18 mmol/L 11 Calcium 8.5 - 10.2 mg/dL 9.0 eGFR >=60 mL/min/1.73m 33 (L) Hemoglobin A1C 4.3 - 5.6 % 7.0 (H) Estimated Average Glucose mg/dL 154 Legend: (L) Low (H) High MEDICATIONS: Current Outpatient Medications Medication Sig glimepiride (AMARYL) 4 mg tablet Take 1 tablet by mouth two times a day with meals. ferrous gluconate 256 mg (28 mg iron) tab Take 1 tablet by mouth two times a day. carbidopa-levodopa CR (SINEMET CR) 50-200 mg per tablet Take 1 tablet at 0600 and 1 tablet at 1800. carbidopa-levodopa (SINEMET) 25-100 mg per tablet Take 1 tablet daily at 0600AM, 1 tablet daily at 1100AM and 1 tablet daily at 1600PM sertraline (ZOLOFT) 50 mg tablet Take 1 tablet by mouth once daily. SITagliptin phosphate (JANUVIA) 50 mg tablet Take 1 tablet by mouth once daily. metFORMIN ER (GLUCOPHAGE XR) 500 mg 24 hr tablet Take 1 tablet by mouth two times a day before meals. tamsulosin (FLOMAX) 0.4 mg Take 1 capsule by mouth daily at bedtime. (Patient taking differently: Take 0.8 mg by mouth once daily.) metoprolol tartrate, short acting, (LOPRESSOR) 50 mg tablet Take 1 tablet by mouth two times a day. folic acid 1 mg tablet Take 1 tablet by mouth once daily. gabapentin (NEURONTIN) 300 mg capsule Take 1 capsule by mouth twice daily. atorvastatin (LIPITOR) 40 mg tablet Take 1 tablet by mouth daily at bedtime. For cholesterol. furosemide (LASIX) 40 mg tablet Take 40 mg by mouth once daily. cyanocobalamin (VITAMIN B-12) 1,000 mcg tab Take 1 tablet by mouth once daily. blood sugar diagnostic (BLOOD GLUCOSE TEST) test strip Test blood sugar(s) 1 times daily. Dx: Type 1 DM - Controlled E10.9 Insulin: No aspirin, enteric coated (ASPIRIN, ENTERIC COATED) 81 mg EC tablet Take 81 mg by mouth once daily. Saw Misenheimer 160 mg capsule Take 160 mg by mouth once daily. LANCETS USE DIRECTED No current facility-administered medications for this visit. 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 Splenic artery aneurysm (HCC) repeat scans showed no change/not identified PAST SURGICAL HISTORY Procedure Laterality Date CHOLECYSTECTOMY COLONOSCOPY FLX DX W/COLLJ SPEC WHEN PFRMD 07/13/2005 COLONOSCOPY FLX DX W/COLLJ SPEC WHEN PFRMD 03/11/2015 Colonoscopy COLONOSCOPY SCREENING 11/12/2021 Dr Cano no repeat due to age ESOPHAGOGASTRODUODENOSCOPY TRANSORAL DIAGNOSTIC 03/11/2015 EGD FAMILY HISTORY Problem Relation Age of Onset Coronary Artery Disease Mother Coronary Artery Disease Father Coronary Artery Disease Brother Heart disease Brother Heart disease Maternal Grandmother Heart disease Maternal Grandfather Heart disease Paternal Grandmother Heart disease Paternal Grandfather Social History Tobacco Use Smoking status: Former Types: Cigars Smokeless tobacco: Never Tobacco comments: cigars-6 a day Vaping Use Vaping Use: Never used Substance Use Topics Alcohol use: No Drug use: No Reviewed current medications, allergies, past medical history, surgical history, family history andsocial history today. REVIEW OF SYSTEMS All other reviewed and negative other than HPI. HEALTH MAINTENANCE: Reviewed health maintenance issues today and recommended the following in detail. Dilated Retinal Exam due on 09/12/2023 VITALS: BP 126/78 Pulse (!) 54 Ht 177.8 cm (5' 10") Wt 134.3 kg (296 lb) SpO2 97% BMI 42.47 kg/m Last 4 Encounter Wt Readings: Date: Wt: 09/17/2023 134.3 kg (296 lb) 09/06/2023 0 kg () 06/18/2023 135.6 kg (299 lb) 06/02/2023 137.4 kg (303 lb) PHYSICAL EXAMINATION: General appearance: Well appearing, alert, in no acute distress, well-hydrated, well nourished. Skin: Skin color, texture, turgor normal, no suspicious rashes or lesions Head: Normocephalic, no masses, lesions, tenderness or abnormalities Lungs: Lungs clear to auscultation. No wheezing, rhonchi, rales Heart: RRR without murmur, gallop, or rubs. No ectopy Abdomen: Normal abdominal exam, Abdomen soft, non-tender. Bowel sounds normal. No masses, organomegaly Extremities: one plus chronic edmea. Musculoskeletal: No joint swelling, deformity, or tenderness Peripheral pulses: Normal Neuro: Negative. ASSESSMENT/PLAN: 1. Diabetic polyneuropathy associated with type 2 diabetes mellitus (HCC) - ICD9: 250.60, 357.2, ICD10: E11.42 (primary diagnosis) - well controlled. - HEMOGLOBIN A1C 2. Hypersomnia - ICD9: 780.54, ICD10: G47.10 - stable. 3. Aortic valve stenosis, etiology of cardiac valve disease unspecified - ICD9: 424.1, ICD10: I35.0 - per cardiology. 4. History of non-ST elevation myocardial infarction (NSTEMI) - ICD9: 412, ICD10: I25.2 - stable. 5. Hypertensive kidney disease with stage 3 chronic kidney disease, unspecified whether stage 3a or3b CKD (HCC) - ICD9: 403.90, 585.3, ICD10: I12.9, N18.30 - per nephro. Given labs are slightly worse, follow them. - COMPLETE BLOOD COUNT AND DIFFERENTIAL - BASIC METABOLIC PANEL 6. Mixed hyperlipidemia - ICD9: 272.2, ICD10: E78.2 - Controlled - Counseled on healthy diet and regular exercise - HEPATIC FUNCTION PNL - LIPID PANEL BASIC 7. Essential hypertension, benign - ICD9: 401.1, ICD10: I10 - Controlled - Continue current medications 8. Coronary artery disease involving [place] coronary artery of [place] heart without angina pectoris- ICD9: 414.01, ICD10: I25.10 - stable. 9. Multiple premature ventricular complexes - ICD9: 427.69, ICD10: I49.3 - stable. 10. Anemia due to vitamin B12 deficiency, unspecified B12 deficiency type - ICD9: 281.1, ICD10: D51.9 - follow labs. - COMPLETE BLOOD COUNT AND DIFFERENTIAL - VITAMIN B12 - COMPLETE BLOOD COUNT AND DIFFERENTIAL 11. Anemia due to folic acid deficiency, unspecified deficiency type - ICD9: 281.2, ICD10: D52.9 - follow labs. - COMPLETE BLOOD COUNT AND DIFFERENTIAL - FOLATE, SERUM - COMPLETE BLOOD COUNT AND DIFFERENTIAL 12. Type 2 diabetes mellitus with stage 3 chronic kidney disease, without long- term current use of insulin, 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) - ICD9: 250.40, 585.3, ICD10: E11.22, N18.30 - stable. Part of his renal issues may also be contributing to his anemia. 13. 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) - ICD9: 202.80, ICD10: C85.90 - stable. Is a remote issues. 14. Anxiety with depression - ICD9: 300.4, ICD10: F41.8 - doing well. 15. TIA (transient ischemic attack) - ICD9: 435.9, ICD10: G45.9 - no reucrrence. 16. Vitamin D deficiency - ICD9: 268.9, ICD10: E55.9 - followed per nephrology 17. BMI 40.0-44.9, adult (HCC) - ICD9: V85.41, ICD10: Z68.41 - continue to follow. 18. History of iron deficiency anemia - ICD9: V12.3, ICD10: Z86.2 - iron has been stable. - COMPLETE BLOOD COUNT AND DIFFERENTIAL - IRON AND TIBC - COMPLETE BLOOD COUNT AND DIFFERENTIAL 19. Parkinson's disease, unspecified whether dyskinesia present, unspecified whether manifestationsfluctuate (HCC) - ICD9: 332.0, ICD10: G20.A1 - per neurology 20. Benign prostatic hyperplasia without lower urinary tract symptoms - ICD9: 600.00, ICD10: N40.0 - wants to stay on higher dose for now. - TAMSULOSIN 0.4 MG CAPSULE 21. IRINEO (obstructive sleep apnea) - ICD9: 327.23, ICD10: G47.33 - sees neuro. Continue to treat. Arsh Polk MD documented in this encounterCh[facility] Telephone encounter Note * Telephone Encounter - Sumit Carlson RN - 09/16/2023 11:59 AM EDT Stephanie cristo Lieberman called and was asking to have OV note from 09/06/23 faxed over to them at fax # [phone]. Faxed. [facility]05-09-2024 Miscellaneous Notes* Telephone Encounter - Sumit Carlson RN - 09/16/2023 11:59 AM EDT Stephanie Lieberman called and was asking to have OV note from 09/06/23 faxed over to them at fax # [phone]. Faxed. documented in this encounterCh[facility]05-[facility]-2024 Telephone encounter Note * Telephone Encounter - Karson Johansen LPN - 09/14/2023 10:26 AM EDT Patient has been identified by name and date of : Yes Patient phones for refill(s): Requested Prescriptions Pending Prescriptions Disp Refills glimepiride (AMARYL) 4 mg tablet 180 tablet 3 Sig: Take 1 tablet by mouth two times a day with meals. Date of last office visit in primary care: 06/18/23 Date of next office visit in primary care: 09/17/23 Please advise. Thank you. Karson Johansen LPN. [facility]05-07-2024 Miscellaneous Notes* Telephone Encounter - Karson Johansen LPN - 09/14/2023 10:26 AM EDT Patient has been identified by name and date of : Yes Patient phones for refill(s): Requested Prescriptions Pending Prescriptions Disp Refills glimepiride (AMARYL) 4 mg tablet 180 tablet 3 Sig: Take 1 tablet by mouth two times a day with meals. Date of last office visit in primary care: 06/18/23 Date of next office visit in primary care: 09/17/23 Please advise. Thank you. Karson Johansen LPN. documented in this encounterCh[facility]05[facility] Telephone encounter Note * Telephone Encounter - Lizzette Restrepo LPN - 09/13/2023 1:59 PM EDT See message reports Dr Laboy wants him taking twice a day. [facility]05-06-2024 Miscellaneous Notes* Telephone Encounter - Lizzette Restrepo LPN - 09/13/2023 1:59 PM EDT See message reports Dr Laboy wants him taking twice a day. documented in this encounterCh[facility]04-29-2024 Telephone encounter Note * Telephone Encounter - Shraddha Calabrese LPN - 09/06/2023 6:33 PM EDT [facility] [phone] 11 pages. Faxed Rx PT, OT to [facility] [phone] 14 pages. Shraddha Calabrese LPN [facility]04-29-2024 Miscellaneous Notes* Telephone Encounter - Shraddha Calabrese LPN - 09/06/2023 6:33 PM EDT Faxed Rx mask fit to [facility] [phone] 11 pages. Faxed Rx PT, OT to [facility] [phone] 14 pages. Shraddha Calabrese LPN documented in this encounterChillicothe [facility]04-29-2024 Instructions* Patient Instructions* Arsh Otto Jr., MD - 09/06/2023 3:51 PM EDT Continue Sinemet 25/100mg, 1 tab, at 0600, at 1100, and then at 1600. Start Sinemet CR 50/200mg, 1 tab at 0600 and 1 tablet 1800. 3. Will refer to [facility] for formal mask fit and request for PAP download over the 2 weeks following the mask fit. documented in this encounterChillicothe [facility]04-29-2024 History of Present illness Narrative* Arsh Otto Jr., MD - 09/06/2023 2:45 PM EDT ESTABLISHED PATIENT VISIT CHIEF COMPLAINT: Follow Up HISTORY OF PRESENT ILLNESS: Axel Serrano is a 83 year old male, with a PMH significant for PD, Lumbar disease, DM neuropathy and IRINEO/treatment emergent central sleep apnea. Pt decreased Sinemet 25/100mg 1 tab TID due to stomach upset. On gabapentin for neuropathy. PAP data download reviewed. Used ASV 90/ days leading to appt. Avgt use of 5 hours and 4 minutes.AHI is 17.6. 95% leak is 97.5 LPM. states when PAP is on it is a good fit. Pt states lots of time wakes and the mask needs to be resealed. Currently sleeping in a recliner. Patient denies any mask discomfort. Reports pressure feels excessive at times. Currently using a FFM. Patient not wanting another sleep study. Regarding PD, states he cannot tolerate dose greater than 1 tab TID of Sinemet 25/100mg. Patient states keeps PD under control but on further discussion he is only referring to tremor. Patient with significant gait issues. Unclear as to what extent is due to lumbar disease. Pretty shaky with fine motor tasks. Struggles getting out of a chair. Not in PT and has not done any in some time. Pt stateshe should be doing therapy, but "I don't know". Patient states uncertain if can do PT due to lower back pain. States saw [facility] - tried injections with no help. Patient states he has had multiple imaging studies and told nothing surgical - I do not have these for review. Neuropathy unchanged with both numbness and burning I his feet. On gabapentin 300mg BID but decreased renal function. States of all the things above, his back is bothering him most. Uses cane or walker for stability. REVIEW OF SYSTEMS GENERAL:No weight loss, malaise or fevers. HEENT:Negative for frequent or significant headaches, No changes in hearing or vision, no nose bleeds or other nasal problems NECK:Negative for lumps, goiter, pain and significant neck swelling RESPIRATORY: Negative for cough, wheezing or shortness of breath. CARDIOVASCULAR: Negative for chest pain, leg swelling or palpitations. GASTROINTESTINAL: Negative for abdominal discomfort, blood in stools or black stools or change in bowel habits GENITOURINARY: No history of dysuria, frequency or incontinence MUSCULOSKELETAL: See HPI. NEUROLOGIC:See HPI. SKIN:Negative for lesions, rash, and itching. HEMATOLOGIC/LYMPHATIC/IMMUNOLOGIC:Negative for prolonged bleeding, bruising easily or swollen nodes. ENDOCRINE: Negative for cold or heat intolerance, polyuria, polydipsia and goiter. The remainder of the ROS was reviewed and is negative. LAB/IMAGING: Those performed since patient's last visit have been reviewed. WBC (k/uL) Date Value 06/16/2023 9.82 RBC (m/uL) Date Value 06/16/2023 3.52 (L) Hemoglobin (g/dL) Date Value 06/16/2023 10.2 (L) Hematocrit (%) Date Value 06/16/2023 32.0 (L) MCV (fL) Date Value 06/16/2023 90.9 MCH (pg) Date Value 06/16/2023 29.0 MCHC (g/dL) Date Value 06/16/2023 31.9 RDW-CV (%) Date Value 06/16/2023 14.2 Platelet Count (k/uL) Date Value 06/16/2023 201 MPV (fL) Date Value 06/16/2023 10.9 Glucose (mg/dL) Date Value 06/16/2023 117 (H) BUN (mg/dL) Date Value 06/16/2023 26 (H) Creatinine (mg/dL) Date Value 06/16/2023 1.75 (H) Sodium (mmol/L) Date Value 06/16/2023 140 Potassium (mmol/L) Date Value 06/16/2023 4.8 Chloride (mmol/L) Date Value 06/16/2023 102 CO2 (mmol/L) Date Value 06/16/2023 25 Protein, Total (g/dL) Date Value 05/31/2023 6.3 Albumin (g/dL) Date Value 05/31/2023 3.4 (L) Calcium, Total (mg/dL) Date Value 06/16/2023 9.5 Alkaline Phosphatase (U/L) Date Value 05/31/2023 42 Bilirubin, Total (mg/dL) Date Value 05/31/2023 0.5 AST (U/L) Date Value 05/31/2023 11 (L) ALT (U/L) Date Value 05/31/2023 <5 (L) YOGI (no units) Date Value 05/20/2017 Positive (A) Rheumatoid Factor (IU/mL) Date Value 05/20/2017 <10 MEDICATIONS: carbidopa-levodopa (SINEMET) 25-100 mg per tablet Take 1 tablet daily at 530AM, 1 tablet daily at 11AM and 1 tablet daily at 430PM. sertraline (ZOLOFT) 50 mg tablet Take 1 tablet by mouth once daily. SITagliptin phosphate (JANUVIA) 50 mg tablet Take 1 tablet by mouth once daily. metFORMIN ER (GLUCOPHAGE XR) 500 mg 24 hr tablet Take 1 tablet by mouth two times a day before meals. metoprolol tartrate, short acting, (LOPRESSOR) 50 mg tablet Take 1 tablet by mouth two times a day. folic acid 1 mg tablet Take 1 tablet by mouth once daily. gabapentin (NEURONTIN) 300 mg capsule Take 1 capsule by mouth twice daily. atorvastatin (LIPITOR) 40 mg tablet Take 1 tablet by mouth daily at bedtime. For cholesterol. glimepiride (AMARYL) 4 mg tablet Take 1 tablet by mouth twice daily with meals. furosemide (LASIX) 40 mg tablet Take 40 mg by mouth once daily. cyanocobalamin (VITAMIN B-12) 1,000 mcg tab Take 1 tablet by mouth once daily. blood sugar diagnostic (BLOOD GLUCOSE TEST) test strip Test blood sugar(s) 1 times daily. Dx: Type 1 DM - Controlled E10.9 Insulin: No aspirin, enteric coated (ASPIRIN, ENTERIC COATED) 81 mg EC tablet Take 81 mg by mouth once daily. Saw Misenheimer 160 mg capsule Take 160 mg by mouth once daily. LANCETS USE DIRECTED tamsulosin (FLOMAX) 0.4 mg Take 1 capsule by mouth daily at bedtime. (Patient not taking: Reported on 09/06/2023) ferrous gluconate 256 mg (28 mg iron) tab Take 1 tablet by mouth once daily. 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 Splenic artery aneurysm (HCC) repeat scans showed no change/not identified FAMILY HISTORY Problem Relation Age of Onset Coronary Artery Disease Mother Coronary Artery Disease Father Coronary Artery Disease Brother Heart disease Brother Heart disease Maternal Grandmother Heart disease Maternal Grandfather Heart disease Paternal Grandmother Heart disease Paternal Grandfather SOCIAL HISTORY Social History Tobacco Use Smoking status: Former Types: Cigars Smokeless tobacco: Never Tobacco comments: cigars-6 a day Vaping Use Vaping Use: Never used Substance Use Topics Alcohol use: No Drug use: No PHYSICAL EXAMINATION BP 128/64 Pulse (!) 58 Resp 16 SpO2 94% GENERAL EXAM: General appearance: NAD, flat affect. HEENT: NC/AT, nasal congestion absent, no oral lesions, membranes moist. NECK: ROM nml. Lungs: CTA bilaterally. CV: RRR nl S1, S2 Extr: 2+ lower ext edema. NEUROLOGICAL EXAM: General: Masked facies. Awake, alert, oriented x3 (person,place,time), fluent, no dysarthria; comprehension, naming, repetition intact. CN: PERRL, fundi appear normal including no evidence of papilledema, EOMI and without nystagmus, VFF to confrontation, facial sensation and strength are normal andsymmetric, hearing is intact to finger rub bilaterally, palate and tongue movements are intact and s ymmetric. SCM and trapezius strength normal. Motor: Increased tone RUE. Strength (5/5) bilaterally (throughout extremities x4). Coordination: FNF intact. ALEX mildly impaired in RUE. Resting tremor noted in RUE. Sensation: Light touch intact but vibration diminished in feet gwendolyn. No evidence of neglect. Gait: Cannot rise from seated position without assist of upper extremities. Once walking, stooped posture with decreased arm swing RUE worse than LUE. 8 steps to turn 180 degress. Decreased stride and essentially shuffling gait. +Retropulsion.. Assessment and Plan: ASSESSMENT/PLAN: 1. Parkinson's disease, unspecified whether dyskinesia present, unspecified whether manifestations fluctuate (HCC) - ICD9: 332.0, ICD10: G20.A1 (primary diagnosis) 2. Weakness of both lower extremities - ICD9: 729.89, ICD10: R29.898 3. Lumbar degenerative disc disease - ICD9: 722.52, ICD10: M51.36 4. Sciatica of right side - ICD9: 724.3, ICD10: M54.31 5. Neuropathy - ICD9: 355.9, ICD10: G62.9 6. Abnormality of gait - ICD9: 781.2, ICD10: R26.9 Patient with multiple physical complaints as above, of which it is difficult to determine the primary cause. Exam would suggest under treated Parkinson's disease (tremor, gait, impaired coordination...) . However, likely component of lumbar spine disease as well. Regarding PD, patient state he could not tolerate higher dose of Sinemet IR as above. Thus, will continue on Sinemet IR 25/100mg 1 tab TID but add Sinemet CR 50/200 mg twice daily as follows: Continue Sinemet 25/100mg, 1 tab, at 0600, at 1100, and then at 1600. Start Sinemet CR 50/200mg, 1 tab at 0600 and 1 tablet 1800. In addition, patient with very sedentary lifestyle. Explained the need for exercise from standpointof slowing the PD disease process. Referral made to PT/OT. May also help lumbar disease. As for lumbar disease, offered repeat imagine as well as referral to spine and pain, but pt declines both. Note denies red flags such as b/b dysfunction. Encouraged weight loss. 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 No changes made to gabapentin dosing based on impaired renal function. 7. IRINEO on CPAP - ICD9: 327.23, ICD10: G47.33 8. Treatment-emergent central sleep apnea - ICD9: 327.29, ICD10: G47.39 9. Class 3 severe obesity with body mass index (BMI) of 40.0 to 44.9 in adult, unspecified obesity type, unspecified whether serious comorbidity present (HCC) - ICD9: 278.01, V85.41, ICD10: E66.01, Z68.41 Patient with IRINEO, not controlled by ASV at the present. No central events of significance on download. Discussed repeating titration but pt declines. Patient with significant mask leak nightly and uncertain why based on history. Will refer back to VERNA Lieberman for formal PAP mask fitting session. Reminded patient and his the need to clean and replace PAP equipment regularly. Advised pt not to drive or operate heavy machinery if sleepy. Arsh Otto MD I spent a total of 42 minutes on the date of the service which included preparing to see the patient, [id number] patient care, completing clinical documentation, obtaining and/or reviewing separately obtained history, performing a medically appropriate examination, counseling and educating the pat ient/family/caregiver, ordering medications, tests, or procedures, independently interpreting results (not separately reported), and communicating results to the patient/family/caregiver (results include PAP data download). documented in this [facility] Telephone encounter Note * Telephone Encounter - Shraddha Calabrese LPN - 09/02/2023 5:04 PM EDT Last OV MQ stated 60 min, pt scheduled in 20 min declined to r/s. Last OV with [facility] 11/23/2022, MQ 05/25/2023, download scanned into chart for review. Shraddha Calabrese LPN [facility]04-25-2024 Miscellaneous Notes* Telephone Encounter - Shraddha Calabrese LPN - 09/02/2023 5:04 PM EDT Last OV MQ stated 60 min, pt scheduled in 20 min declined to r/s. Last OV with [facility] 11/23/2022, MQ 05/25/2023, download scanned into chart for review. Shradhda Calabrese LPN documented in this encounterCh[facility]02-29-2024 Miscellaneous Notes* Telephone Encounter - Karson Johansen LPN - 07/08/2023 11:32 AM EST Patient has been identified by name and date of : Yes Patient phones for refill(s): Requested Prescriptions Pending Prescriptions Disp Refills sertraline (ZOLOFT) 50 mg tablet 90 tablet 3 Sig: Take 1 tablet by mouth once daily. Date of last office visit in primary care: 06/18/2023 Date of next office visit in primary care: 09/17/2023 Please advise. Thank you. Karson Johansen LPN. documented in this encounterCh[facility]02-29-2024 Miscellaneous Notes* Telephone Encounter - Shraddha Calabrese LPN - 07/08/2023 10:35 AM EST Patient has been identified by name and date of : Yes Requested Prescriptions Pending Prescriptions Disp Refills carbidopa-levodopa (SINEMET) 25-100 mg per tablet 90 tablet 1 Sig: Take 1 tablet daily at 530AM, 1 tablet daily at 11AM and 1 tablet daily at 430PM. Sinemet 05/25/2023 qty 90 w/ 1 r/f Last OV MQ 05/25/2023 Next OV [facility] 09/06/2023 Assessment and Plan: ASSESSMENT/PLAN: 1. Parkinson disease - ICD9: 332.0, ICD10: G20.A1 (primary diagnosis) Patient notes worsening symptoms since last appointment with worsening tremor and gait. Notes that he significantly decreased his Sinemet 25 over 100 mg 2 tablets 3 times daily to just 2 tablets in the morning. States that he was starting to have some stomachache and nausea and was attributing it to this medication so he decreased it. Notes that by the time he was at 2 tablets in the morning his stomachache had resolved. No new symptoms with this, does have occasional lightheadedness but otherwise stable from previous. Discussed that this is a short acting medication and only taking in the morning is likely contributing to worsening symptoms throughout the day. Patient is fearful of side effects and does not want to continue her previous regimen, will start at 1 tablet 3 times a day and titrate up as tolerated, patient is agreeable with this. Discussed common side effects and patient isamenable. Refill sent. Discussed other conservative therapies for Parkinson's including increasing e xercise, increasing water intake. Patient did start wearing compression socks as well. MRI of the brain was negative for any acute process. 2. Weakness of both lower extremities - ICD9: 729.89, ICD10: R29.898 3. Lumbar degenerative disc disease - ICD9: 722.52, ICD10: M51.36 4. Other symptoms and signs involving the nervous system - ICD9: 781.99, ICD10: R29.818 5. Neuropathy - ICD9: 355.9, ICD10: G62.9 Patient still endorsing some lumbar pain, stable and unchanged since the previous visit. Did refer to physical therapy at last appointment the patient did not complete this. Additionally, did also discuss alpha lipoic acid for neuropathy and patient did not wish to try that. Did emphasize the importance of exercise to avoid deconditioning and weakness in the lower extremities. Patient has not hadany falls since last appointment, but did start using a walker due to worsening gait. This is likely secondary to chronic low back pain, neuropathy as well as worsening Parkinson's as he decreased his Sinemet. No new symptoms that would warrant additional workup at this time. Discussed conservativetherapy at length with patient family including increasing exercise, physical therapy, water intake. Patient agrees and understands. Patient was expressing some concerns with his sleep. Does have sleep apnea, uses CPAP machine but reports some behavior consistent with REM sleep disturbance. Will have patient follow-up with Dr. Otto in 3 months to discuss Parkinson's as well as sleep. Likely will need hour-long appointment time. Kaylee Herrmann PA-C documented in this encounterCh[facility]02-09-[facility]24 History of Present illness Narrative* Arsh Polk MD - 06/18/2023 10:30 AM EST Patient presents with: Follow Up HPI: Patient presents today for office visit for 2 week follow up. Edema is better. Continues to wear compression stockings. Taking Lasix daily Weight is down four lbs. No chest pain or shortness of breath. Sees cardiology this summer. Has appt set up. Discussed daily weights and support socks. DM: Metformin decreased to 500 mg BID at last OV Noticing a difference in frequency of BM's. Diarrhea has improved. Januvia also decreased to 50 mg daily. Not checking sugars. Fecal occult not done yet. Anemia still at same level. Iron and vitamin levels are ok. Referral placed to Nephrology for his ckd III and anemia of CKD. Can consider hematology as well if worsens. Await iofbt also. See previous ov: DM: Continues on Metformin, Glimepiride and Januvia. Does not check his sugars at home. No vision changes. Up to date on eye exam. No unexpected weight loss. Does not watch diet strictly with sugar content. No exercise. No foot lesions. Has some tingling in B/L feet. Started wearing compression stockings per podiatry. Has edema to B/L feet/ankles and legs. Continues on Lasix. Follows with Cardiology. Denies chest pain Dyspnea on exertion Chronic edema. HLD: No myalgias Continues on Lipitor. IRINEO: Continues with BiPAP nightly Gives him a constant dry mouth Sleeping pretty good through the night. Sleeps in recliner. Does not feel rested when he wakes. Lots of daytime fatigue. Takes frequent naps. Follows with Neuro. Parkinson's. Continues on Sinemet. Renal function has declined slightly as has his anemia. The anemia has appeared to be partly related to ckd. We need to adjust his januvia and metormin doses. Does have occasional incontinence of stool. Stools are occasionally loose. Discussed that I might want to cut metformin as above and see if that helps. Had colonoscopy done 1.5 years ago. No black or bloody stools. Emotionally is ok. Component Latest Ref Rng & Units 06/16/2023 WBC 3.70 - 11.00 k/uL 9.82 RBC 4.20 - 6.00 m/uL 3.52 (L) Hemoglobin 13.0 - 17.0 g/dL 10.2 (L) Hematocrit 39.0 - 51.0 % 32.0 (L) MCV 80.0 - 100.0 fL 90.9 MCH 26.0 - 34.0 pg 29.0 MCHC 30.5 - 36.0 g/dL 31.9 RDW-CV 11.5 - 15.0 % 14.2 Platelet Count 150 - 400 k/uL 201 MPV 9.0 - 12.7 fL 10.9 Neut% % 71.7 Abs Neut (ANC) 1.45 - 7.50 k/uL 7.04 Lymph% % 16.6 Abs Lymph 1.00 - 4.00 k/uL 1.63 Camp% % 7.7 Abs Camp <0.87 k/uL 0.76 Eosin% % 3.3 Abs Eosin <0.46 k/uL 0.32 Baso% % 0.4 Abs Baso <0.11 k/uL 0.04 Immature Gran % % 0.3 IMMATURE GRANS (ABS) <0.10 k/uL 0.03 NRBC /100 WBC 0.0 Absolute nRBC <0.01 k/uL <0.01 DTYPE Auto Glucose 74 - 99 mg/dL 117 (H) BUN 9 - 24 mg/dL 26 (H) Creatinine 0.73 - 1.22 mg/dL 1.75 (H) Sodium 136 - 144 mmol/L 140 Potassium 3.7 - 5.1 mmol/L 4.8 Chloride 97 - 105 mmol/L 102 CO2 22 - 30 mmol/L 25 Anion Gap 9 - 18 mmol/L 13 Calcium 8.5 - 10.2 mg/dL 9.5 eGFR >=60 mL/min/1.73m 38 (L) Iron 41 - 186 ug/dL 47 TIBC 232 - 386 ug/dL 281 Transferrin Saturation 15.0 - 57.0 % 16.7 Retic % 0.4 - 2.0 % 1.3 Abs Retic 0.018 - 0.100 M/uL 0.045 Vitamin B12 232 - 1,245 pg/mL 1,220 Folate >4.7 ng/mL >20.0 Ferritin 30.3 - 565.7 ng/mL 270.0 Prealbumin 17 - 36 mg/dL 17 MEDICATIONS: Current Outpatient Medications Medication Sig SITagliptin phosphate (JANUVIA) 50 mg tablet Take 1 tablet by mouth once daily. metFORMIN ER (GLUCOPHAGE XR) 500 mg 24 hr tablet Take 1 tablet by mouth two times a day before meals. tamsulosin (FLOMAX) 0.4 mg Take 1 capsule by mouth daily at bedtime. carbidopa-levodopa (SINEMET) 25-100 mg per tablet Take 1 tablet daily at 530AM, 1 tablet daily at 11AM and 1 tablet daily at 430PM. metoprolol tartrate, short acting, (LOPRESSOR) 50 mg tablet Take 1 tablet by mouth two times a day. folic acid 1 mg tablet Take 1 tablet by mouth once daily. gabapentin (NEURONTIN) 300 mg capsule Take 1 capsule by mouth twice daily. atorvastatin (LIPITOR) 40 mg tablet Take 1 tablet by mouth daily at bedtime. For cholesterol. ferrous gluconate 256 mg (28 mg iron) tab Take 1 tablet by mouth once daily. sertraline (ZOLOFT) 50 mg tablet Take 1 tablet by mouth once daily. glimepiride (AMARYL) 4 mg tablet Take 1 tablet by mouth twice daily with meals. furosemide (LASIX) 40 mg tablet Take 40 mg by mouth once daily. cyanocobalamin (VITAMIN B-12) 1,000 mcg tab Take 1 tablet by mouth once daily. blood sugar diagnostic (BLOOD GLUCOSE TEST) test strip Test blood sugar(s) 1 times daily. Dx: Type 1 DM - Controlled E10.9 Insulin: No aspirin, enteric coated (ASPIRIN, ENTERIC COATED) 81 mg EC tablet Take 81 mg by mouth once daily. Saw Misenheimer 160 mg capsule Take 160 mg by mouth once daily. LANCETS USE DIRECTED No current facility-administered medications for this visit. 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 Splenic artery aneurysm (HCC) repeat scans showed no change/not identified PAST SURGICAL HISTORY Procedure Laterality Date CHOLECYSTECTOMY COLONOSCOPY FLX DX W/COLLJ SPEC WHEN PFRMD 07/13/2005 COLONOSCOPY FLX DX W/COLLJ SPEC WHEN PFRMD 03/11/2015 Colonoscopy COLONOSCOPY SCREENING 11/12/2021 Dr Cano no repeat due to age ESOPHAGOGASTRODUODENOSCOPY TRANSORAL DIAGNOSTIC 03/11/2015 EGD FAMILY HISTORY Problem Relation Age of Onset Coronary Artery Disease Mother Coronary Artery Disease Father Coronary Artery Disease Brother Heart disease Brother Heart disease Maternal Grandmother Heart disease Maternal Grandfather Heart disease Paternal Grandmother Heart disease Paternal Grandfather Social History Tobacco Use Smoking status: Former Types: Cigars Smokeless tobacco: Never Tobacco comments: cigars-6 a day Vaping Use Vaping Use: Never used Substance Use Topics Alcohol use: No Drug use: No Reviewed current medications, allergies, past medical history, surgical history, family history andsocial history today. REVIEW OF SYSTEMS All other reviewed and negative other than HPI. HEALTH MAINTENANCE: Reviewed health maintenance issues today and recommended the following in detail. There are no preventive care reminders to display for this patient. VITALS: BP 136/61 Pulse (!) 51 Ht 177.8 cm (5' 10") Wt 135.6 kg (299 lb) SpO2 95% BMI 42.90 kg/m Last 4 Encounter Wt Readings: Date: Wt: 06/02/2023 137.4 kg (303 lb) 05/25/2023 138.6 kg (305 lb 9.6 oz) 01/26/2023 127 kg (280 lb) 11/26/2022 136.1 kg (300 lb) PHYSICAL EXAMINATION: General appearance: Well appearing, alert, in no acute distress, well-hydrated, well nourished. Skin: Skin color, texture, turgor normal, no suspicious rashes or lesions Lungs: Lungs clear to auscultation. No wheezing, rhonchi, rales Heart: RRR without murmur, gallop, or rubs. No ectopy Abdomen: Normal abdominal exam, Abdomen soft, non-tender. Bowel sounds normal. No masses, organomegaly Extremities: No deformities, edema, skin discoloration, clubbing or cyanosis. Good capillary refill. ASSESSMENT/PLAN: 1. Mixed hyperlipidemia - ICD9: 272.2, ICD10: E78.2 (primary diagnosis) - Controlled - Continue current medications 2. Essential hypertension, benign - ICD9: 401.1, ICD10: I10 - Controlled - Continue current medications 3. Aortic valve stenosis, etiology of cardiac valve disease unspecified - ICD9: 424.1, ICD10: I35.0 - stable. 4. Hypertensive kidney disease with stage 3 chronic kidney disease, unspecified whether stage 3a or3b CKD (HCC) - ICD9: 403.90, 585.3, ICD10: I12.9, N18.30 - Controlled - Continue current medications - BASIC METABOLIC PNL 5. Anemia due to vitamin B12 deficiency, unspecified B12 deficiency type - ICD9: 281.1, ICD10: D51.9 - stable - CBC + DIFF 6. Anemia due to folic acid deficiency, unspecified deficiency type - ICD9: 281.2, ICD10: D52.9 - stable. - CBC + DIFF 7. Diabetic polyneuropathy associated with type 2 diabetes mellitus (HCC) - ICD9: 250.60, 357.2, ICD10: E11.42 - call if any issues. - HGB A1C Arsh Polk MD documented in this encounterCh[facility]02-[facility]-2024 Miscellaneous Notes* Telephone Encounter - Kaia Liu - 06/17/2023 9:48 AM EST Placed call to Pt. Unavailable. Spoke with Suri. Okay per chart to discuss information. Relayed results. She verbalized understanding and states she would let Axel know. He has an appt with Dr. Polk tomorrow 06/18/23. I explained to her that we could discuss everything at appt as well. Kaia Alexa * Telephone Encounter - Arsh Polk MD - 06/17/2023 8:47 AM EST His anemia is still in the same level. His iron and vitamin levels are ok Most likely it is related to his kidney function which as declined over time. If willing, we could send him to nephrology or a kidney dr to follow both. Referral placed documented in this encounterCh[facility]02-[facility] Evaluation note* Diagnosis Stage 3b chronic kidney disease (HCC)- Primary Anemia of chronic renal failure, stage 3a (HCC) (HCC) documented in this encounter [facility] History of Past illness Narrative* Problem Noted Date Diagnosed Date Resolved Date Dyspnea on exertion 06/02/2023 06/02/2023 06/02/19 24 Fall 06/02/2023 06/02/2023 06/02/2023 Fatigue 06/02/2023 06/02/2023 06/02/2023 Class 2 obesity with body ma ss index (BMI) of 38.0 to 38.9 in adult 09/14/2017 06/02/2023 Abnormal electrocardiography 03/23/2017 06/02/2023 06/02/2023 Vitamin B12 deficiency 02/25/201705/29 Bladder stone 08/19/2015 02/25/2017 Hydronephrosis 08/19/2015 05/29/2022 Kidney stone 08/19/2015 02/25/2017 Diabetic neuropathy 04/03/2014 12/19/19 15 Abdominal or pelvic swelling , mass, or lump, other specified site 05/24/2006 02/25/2017 DIABETES MELLITUS TYPE II-UNCOMPL 06/11/2005 12/18/2014 Other primary cardiomyopathies 06/11/2005 09/16/2017 documented as of this encounter (statuses as of 06/17/2023) [facility] of Past illness Narrative* Problem Noted Date Diagnosed Date Resolved Date Dyspnea on exertion 06/02/2023 06/02/2023 06/02/19 24 Fall 06/02/2023 06/02/2023 06/02/2023 Fatigue 06/02/2023 06/02/2023 06/02/2023 Class 2 obesity with body ma ss index (BMI) of 38.0 to 38.9 in adult 09/14/2017 06/02/2023 Abnormal electrocardiography 03/23/2017 06/02/2023 06/02/2023 Vitamin B12 deficiency 02/25/201705/29 Bladder stone 08/19/2015 02/25/2017 Hydronephrosis 08/19/2015 05/29/2022 Kidney stone 08/19/2015 02/25/2017 Diabetic neuropathy 04/03/2014 12/19/19 15 Abdominal or pelvic swelling , mass, or lump, other specified site 05/24/2006 02/25/2017 DIABETES MELLITUS TYPE II-UNCOMPL 06/11/2005 12/18/2014 Other primary cardiomyopathies 06/11/2005 09/16/2017 documented as of this encounter (statuses as of 06/18/2023) [facility] of Past illness Narrative* Problem Noted Date Diagnosed Date Resolved Date Dyspnea on exertion 06/02/2023 06/02/2023 06/02/19 24 Fall 06/02/2023 06/02/2023 06/02/2023 Fatigue 06/02/2023 06/02/2023 06/02/2023 Class 2 obesity with body ma ss index (BMI) of 38.0 to 38.9 in adult 09/14/2017 06/02/2023 Abnormal electrocardiography 03/23/2017 06/02/2023 06/02/2023 Vitamin B12 deficiency 02/25/201705/29 Bladder stone 08/19/2015 02/25/2017 Hydronephrosis 08/19/2015 05/29/2022 Kidney stone 08/19/2015 02/25/2017 Diabetic neuropathy 04/03/2014 12/19/19 15 Abdominal or pelvic swelling , mass, or lump, other specified site 05/24/2006 02/25/2017 DIABETES MELLITUS TYPE II-UNCOMPL 06/11/2005 12/18/2014 Other primary cardiomyopathies 06/11/2005 09/16/2017 documented as of this encounter (statuses as of 07/08/2023) [facility] of Past illness Narrative* Problem Noted Date Diagnosed Date Resolved Date Dyspnea on exertion 06/02/2023 06/02/2023 06/02/19 24 Fall 06/02/2023 06/02/2023 06/02/2023 Fatigue 06/02/2023 06/02/2023 06/02/2023 Class 2 obesity with body ma ss index (BMI) of 38.0 to 38.9 in adult 09/14/2017 06/02/2023 Abnormal electrocardiography 03/23/2017 06/02/2023 06/02/2023 Vitamin B12 deficiency 02/25/201705/29 Bladder stone 08/19/2015 02/25/2017 Hydronephrosis 08/19/2015 05/29/2022 Kidney stone 08/19/2015 02/25/2017 Diabetic neuropathy 04/03/2014 12/19/19 15 Abdominal or pelvic swelling , mass, or lump, other specified site 05/24/2006 02/25/2017 DIABETES MELLITUS TYPE II-UNCOMPL 06/11/2005 12/18/2014 Other primary cardiomyopathies 06/11/2005 09/16/2017 documented as of this encounter (statuses as of 07/08/2023) [facility] Miscellaneous Notes* Telephone Encounter - Leslie Lamb MA - 04/05/2023 10:14 AM EST Patient has been identified by name and date of : Yes Requested Prescriptions Pending Prescriptions Disp Refills sitaGLIPtin phosphate (JANUVIA) 100 mg tablet 90 tablet 3 Sig: Take 1 tablet by mouth once daily. RX INSTRUCTIONS: Patient aware RX will be sent to pharmacy. No need to notify patient. Leslie Lamb MA Blake 11/2022 Nov 05/2023 Last refill: 03/2022 documented in this encounterCh[facility]10-23-2023 Miscellaneous Notes* Telephone Encounter - Lizzette Restrepo LPN - 03/01/2023 11:52 AM EDT Patient has been identified by name and date of : Yes Requested Prescriptions Pending Prescriptions Disp Refills metoprolol tartrate, short acting, (LOPRESSOR) 50 mg tablet 180 tablet 3 Sig: Take 1 tablet by mouth two times a day. RX INSTRUCTIONS: Patient aware RX will be sent to pharmacy. No need to notify patient. Lizzette Restrepo LPN documented in this encounterCh[facility]10-10-2023 History of Present illness Narrative* Marline Romeo RT(R) - 02/16/2023 8:40 AM EDT Radiology Service Progress Note PATIENT NAME: Axel Serrano DATE OF SERVICE: February 16, 2023 TIME: 9:17 AM PATIENT IDENTITY VERIFICATION COMPLETED USING TWO (2) IDENTIFIERS: Name and Date of confirmedby patient verbally. FALL SCREENING: Has the patient had 2 falls in the last year or 1 fall with injury or currently using an Ambulatory Assistive Device (Walker, Cane, Wheelchair, Crutches, etc.)? Yes, Patient High Riskfor Falls What interventions were put in place to prevent falls during this visit? Instructed Patient to Callfor Help if Needed, Offered Assistance with Transfers/Clothing, Instructed Patient to Remain Seated(Not on Exam Table) Until Exam, and Increased Observations by Caregivers PATIENT GENDER DATA: Male PATIENT RELEVANT IMPLANT DATA REVIEWED: Yes RADIOLOGY DEPARTMENT: MR; Exam(s) Completed: Head: Routine Brain PERIPHERAL IV DATA: Not applicable SIGNED BY: RT Julito(Gena) February 16, 2023 9:17 AM documented in this encounterChillic[facility]09-19-2023 Instructions* Patient Instructions* Kaylee Herrmann PA-C - 01/26/2023 1:54 PM EDT Consult to physical therapy Try alpha lipoic acid for diabetic neuropathy 600 mg Increase water intake and exercise MRI of the brain Continue with sinemet 2 tablets three times 2 tablets 5 am 2 tablets at 11 am 2 tablets 4 pm Follow up in 3 months documented in this encounterCh[facility]09-19-2023 History of Present illness Narrative* Kaylee Herrmann PA-C - 01/26/2023 1:23 PM EDT Images from the original note were not included. ESTABLISHED PATIENT VISIT Last visit: 11/23/[address] Otto ASSESSMENT/PLAN: 1. IRINEO on CPAP - ICD9: 327.23, V46.8, ICD10: G47.33 (primary diagnosis) 2. Treatment-emergent central sleep apnea - ICD9: 327.29, ICD10: G47.39 Overall AHI improving despite minimal improvement in mask leak with new mask ([employer] - DME). Patient feels like too much pressure at start of the night. Will request DME review PAP settings and lower ramp start up if possible. However, somewhat difficult to lower pressures with pt on ASV which would be variable. Would like patient to be with current mask for a long duration to see if further improvement over time. Reminded to clean and replace PAP equipment regularly. Advised no driving or operate heavy machinery if sleepy. 3. Parkinson disease (HCC) - ICD9: 332.0, ICD10: G20 While patient and initially noted no difference on Sinemet, after examining patient and seeingimprovement in gait and fine motor movement as well as tremor, they admit that they have been more focused on PAP therapy than PD symptoms. D/w them and would like to further increase Sinemet dose to25/100mg 2 tabs TID as scheduled above to see if further improves symptoms. Review Sinemet SE and ADRs with patient and . Follow up in 8 weeks or sooner prn to see if symptom continue to improve. Arsh Otto MD CHIEF COMPLAINT: follow up HISTORY OF PRESENT ILLNESS: Axel Serrano is a 82 year old male, There were no vitals taken for this visit. with a PMH significant for parkinson disease, IRINEO, HLD, DM type 2 with neuropathy, B12 deficiency, CKD stage 3, NSTEMI, aortic stenosis, lymphoma, TIA, kidney stones. Saw Clarita 11/23/22 for parkinsons, IRINEO. Noted improvment on PE when starting sinemet. Increase to two tablets tid and see if he has further improvment. Patient notes that he has been doing well since last visit. Increased his Sinemet to 2 tablets 3 times a day and notes improvement in his tremor and other symptoms. No side effects including lightheadedness, impulsivity, hallucinations or other symptoms. No new symptoms. Patient does report fall that occurred a few days after his last appointment. notes that if he is had a long day and is very tired he will have weakness in his lower extremities bilaterally. This would then cause him to fall, this is been an issue for the last year with no etiology found. MRI of the lumbar spine in 2020 does show mild degenerative changes, but no severe stenosis. Patient does report some bowel and bladder urgency, but no incontinence. No saddle anesthesia. Does note chronic numbness and tingling in the lower extremities consistent with his history of diabetic neuropathy. Last A1c was 7. Denies any foot drop, no paresthesias or weakness in the hands.Never had an EMG in the past. Notes that he never had history of diabetes in the past prior to his chemotherapy 14 years ago. Patient is compliant with his CPAP machine, notes that over the last month he has gotten more more used to the machine but does not quite feel refreshed in the morning. Of note, patient with history of anemia with last hemoglobin at 10. Last B12 was 1125. REVIEW OF SYSTEMS GENERAL:No weight loss, malaise or fevers. HEENT:Negative for frequent or significant headaches, No changes in hearing or vision, no nose bleeds or other nasal problems NECK:Negative for lumps, goiter, pain and significant neck swelling RESPIRATORY: Negative for cough, wheezing or shortness of breath. CARDIOVASCULAR: Negative for chest pain, leg swelling or palpitations. GASTROINTESTINAL: Negative for abdominal discomfort, blood in stools or black stools or change in bowel habits GENITOURINARY: No history of dysuria, frequency or incontinence MUSCULOSKELETAL: Negative for joint pain or swelling, back pain or muscle pain. NEUROLOGIC:Negative for focal numbness or weakness, headaches and dizziness or syncope, vision changes, speech/languag changes - EXCEPT that as per HPI above. SKIN:Negative for lesions, rash, and itching. PSYCHIATRIC: Negative for sleep disturbance, mood disorder and recent psychosocial stressors. HEMATOLOGIC/LYMPHATIC/IMMUNOLOGIC:Negative for prolonged bleeding, bruising easily or swollen nodes. ENDOCRINE: Negative for cold or heat intolerance, polyuria, polydipsia and goiter. The remainder of the ROS was reviewed and is negative. LAB/IMAGING: Those performed since patient's last visit have been reviewed. MRI lumbar spine 2020 MEDICATIONS: metFORMIN ER (GLUCOPHAGE XR) 500 mg 24 hr tablet Take 4 tablets by mouth daily with breakfast. folic acid 1 mg tablet Take 1 tablet by mouth once daily. carbidopa-levodopa (SINEMET) 25-100 mg per tablet Take 2 tablet daily at 530AM, 2 tablet daily at 11AM and 2 tablet daily at 430PM. gabapentin (NEURONTIN) 300 mg capsule Take 1 capsule by mouth twice daily. atorvastatin (LIPITOR) 40 mg tablet Take 1 tablet by mouth daily at bedtime. For cholesterol. ferrous gluconate 256 mg (28 mg iron) tab Take 1 tablet by mouth once daily. tamsulosin (FLOMAX) 0.4 mg Take 1 capsule by mouth daily at bedtime. sertraline (ZOLOFT) 50 mg tablet Take 1 tablet by mouth once daily. glimepiride (AMARYL) 4 mg tablet Take 1 tablet by mouth twice daily with meals. SITagliptin (JANUVIA) 100 mg tablet Take 1 tablet by mouth once daily. metoprolol tartrate, short acting, (LOPRESSOR) 50 mg tablet Take 1 tablet by mouth twice daily. furosemide (LASIX) 40 mg tablet Take 40 mg by mouth once daily. cyanocobalamin (VITAMIN B-12) 1,000 mcg tab Take 1 tablet by mouth once daily. blood sugar diagnostic (BLOOD GLUCOSE TEST) test strip Test blood sugar(s) 1 times daily. Dx: Type 1 DM - Controlled E10.9 Insulin: No aspirin, enteric coated (ASPIRIN, ENTERIC COATED) 81 mg EC tablet Take 81 mg by mouth once daily. Saw Misenheimer 160 mg capsule Take 160 mg by mouth once daily. LANCETS USE DIRECTED cholecalciferol, Vitamin D3, (VITAMIN D3) 1,250 mcg (50,000 unit) cap capsule Take 1 capsule by mouth one time a week. 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 Splenic artery aneurysm (HCC) repeat scans showed no change/not identified FAMILY HISTORY Problem Relation Age of Onset Coronary Artery Disease Mother Coronary Artery Disease Father Coronary Artery Disease Brother Heart disease Brother Heart disease Maternal Grandmother Heart disease Maternal Grandfather Heart disease Paternal Grandmother Heart disease Paternal Grandfather SOCIAL HISTORY Social History Tobacco Use Smoking status: Former Types: Cigars Quit date: 11/27/2003 Years since quittin.1 Smokeless tobacco: Never Tobacco comments: cigars-6 a day Vaping Use Vaping Use: Never used Substance Use Topics Alcohol use: No Drug use: No PHYSICAL EXAMINATION BP 122/74 Pulse (!) 56 Resp 16 Wt 127 kg (280 lb) SpO2 95% BMI 40.18 kg/m GENERAL EXAM: General appearance: NAD, pleasant. HEENT: NC/AT, nasal congestion absent, no oral lesions, membranes moist. NECK: No masses, supple. Lungs: Breathing comfortably Extr: Moves all extremities without difficulty Skin: Cool to touch. No rash. NEUROLOGICAL EXAM: General: Awake, alert, oriented x3 (person,place,time), speech fluent, no dysarthria; comprehension, naming, repetition intact. Short and group home memory intact. CN: PERRL, EOMI and without nystagmus, VFF to confrontation, facial sensation and strength are normal and symmetric, hearing is intact to finger rub bilaterally, palate and tongue movements are intact and symmetric. SCM and trapezius strength normal. Motor: Rigidity to the BUE worse on the right, cogwheel. Decreased strength in the left upper and lower extremity throughout (4+/5) Reflexes: Absent achilles reflex bilaterally, decreased patella bilaterally. UE 2/4 Coordination: FNF intact HTS intact. Resting tremor and intention tremor to the LUE. ALEX slightly decreased in the LE on the left. Sensation: Decreased vibration to the lower extremities (absent at the great toe, improving proximally). Slightly decreased to the DIP bilaterally. Gait: Patient leaning forward reporting low back pain, shuffled gait, 4-5 steps to turn. Slightly decreased arm swing on LUE. Romberg normal. Assessment and Plan: ASSESSMENT/PLAN: 1. Parkinson disease (HCC) - ICD9: 332.0, ICD10: G20 (primary diagnosis) Patient notes improvement in his tremor and symptoms since last visit since increasing Sinemet to 2tablets 3 times a day. No side effects, tolerating this well. Does note 1 fall since last appointment, but attributes this to weakness in his lower extremities. No lightheadedness, syncope, no falls backwards. No worsening symptoms, no new symptoms. We will continue with 2 tablets Sinemet 25/100mg 3 times a day. Also discussed other conservative measures that may be beneficial for Parkinson's disease including increasing water intake and exercise. Patient and agree and understand. 2. Weakness of both lower extremities - ICD9: 729.89, ICD10: R29.898 3. Lumbar degenerative disc disease - ICD9: 722.52, ICD10: M51.36 4. Other symptoms and signs involving the nervous system - ICD9: 781.99, ICD10: R29.818 Patient reporting weakness to the lower extremities that has caused multiple falls in the last year. MRI of the lumbar spine in 2020 shows mild degenerative changes. Patient reporting diffuse low back pain during ambulation today. Notes that the weakness in his legs is bilateral and equal, no etiology that he can think of at onset. Patient has not tried physical therapy in the past, will refer tophysical therapy for low back pain and strengthening the lower extremities. Patient also reporting history of neuropathy to the lower extremities. On my exam, has vibration loss diffusely to the lower extremities. Likely secondary from both chemotherapy and diabetes. Patientalready taking gabapentin, discussed alpha lipoic acid as well. Patient would like to try this. On exam, patient does have slightly asymmetric strength with weakness on the left upper and lower extremity. This was not seen at previous visit in November. Patient and are unsure of any strokelikesymptoms or when this officially began. Patient does take aspirin daily since his heart attack manyyears ago. No MRI imaging of the brain. We will obtain MRI of the brain to rule out CVA contributing to patient's weakness on exam today. Patient and agreeable to treatment plan of care at this time, all questions were answered. Patient to follow-up in 2 to 3 months or sooner should any symptoms change or worsen. Kaylee Herrmann PA-C I spent a total of 50 minutes on the date of the service which included preparing to see the patient, [id number] patient care, completing clinical documentation, obtaining and/or reviewing separately obtained history, performing a medically appropriate examination, counseling and educating the pat ient/family/caregiver, and ordering medications, tests, or procedures. This document has been created with the use of voice recognition technology. It may contain inaccuracies: (e.g. misspellings, inaccurate syntax or word sense) that have escaped review. documented [facility] this [facility] Miscellaneous Notes* Telephone Encounter - Lizzette Restrepo LPN - 12/07/2022 9:01 AM EDT Patient has been identified by name and date of : Yes Requested Prescriptions Pending Prescriptions Disp Refills folic acid 1 mg tablet 30 tablet 11 Sig: Take 1 tablet by mouth once daily. RX INSTRUCTIONS: Patient aware RX will be sent to pharmacy. No need to notify patient. Lizzette Restrepo LPN documented in this encounterCh[facility] History of Present illness Narrative* Arsh Polk MD - 11/26/2022 11:00 AM EDT Patient presents with: Follow Up: 6 month follow up HPI: Patient presents today for office visit for follow up. Had a fall last week. [place] tired and landed on his left elbow.or knees. No head injury or LOC Is now using a cane. Discussed trying physical therapy if worsens. CARDIO:still seeing cardiology. Has chronic edema recently since more humid. Has been sleeping in a recliner. Dicussed elevation Discussed support hose. No redness or warmth. No pain He is very sedentary. No chest pain or shortness of breath. HYPERTENSION:bp is stable. No dizziness. HLD:no myalgias. IRINEO:seeing Dr. Otto. Using his cpap. He is also worried about possible parkinson's Suggested he continue to follow up with him. NEPHRO:follow renal function. HEME:is in remission. Slightly more anemic. Had colonoscopy in the last year. No black or bloody stools. Iron has been ok. May be more related to anemia of CD Will follow labs. DM:sugars are doing well. Does not check PSYCH:emotionally is stable. Taking his "happy pill" His feels he is doing better. Feels down due to not doing what he used to do but is stable. Stopped his vitamin d. Component Latest Ref Rng & Units 11/17/2022 WBC 3.70 - 11.00 k/uL 10.03 RBC 4.20 - 6.00 m/uL 3.67 (L) Hemoglobin 13.0 - 17.0 g/dL 10.5 (L) Hematocrit 39.0 - 51.0 % 33.1 (L) MCV 80.0 - 100.0 fL 90.2 MCH 26.0 - 34.0 pg 28.6 MCHC 30.5 - 36.0 g/dL 31.7 RDW-CV 11.5 - 15.0 % 14.6 Platelet Count 150 - 400 k/uL 198 MPV 9.0 - 12.7 fL 10.8 Neut% % 70.6 Abs Neut (ANC) 1.45 - 7.50 k/uL 7.08 Lymph% % 16.8 Abs Lymph 1.00 - 4.00 k/uL 1.69 Camp% % 8.7 Abs Camp <0.87 k/uL 0.87 (H) Eosin% % 2.7 Abs Eosin <0.46 k/uL 0.27 Baso% % 0.5 Abs Baso <0.11 k/uL 0.05 Immature Gran % % 0.7 IMMATURE GRANS (ABS) <0.10 k/uL 0.07 NRBC /100 WBC 0.0 Absolute nRBC <0.01 k/uL <0.01 DTYPE Auto Protein, Total 6.3 - 8.0 g/dL 6.7 Albumin 3.9 - 4.9 g/dL 3.5 (L) Calcium 8.5 - 10.2 mg/dL 9.6 Bilirubin, Total 0.2 - 1.3 mg/dL 0.5 Alkaline Phosphatase 38 - 113 U/L 38 AST 14 - 40 U/L 11 (L) ALT 10 - 54 U/L <5 (L) Glucose 74 - 99 mg/dL 134 (H) BUN 9 - 24 mg/dL 29 (H) Creatinine 0.73 - 1.22 mg/dL 1.80 (H) Sodium 136 - 144 mmol/L 139 Potassium 3.7 - 5.1 mmol/L 5.2 (H) Chloride 97 - 105 mmol/L 101 CO2 22 - 30 mmol/L 23 Anion Gap 9 - 18 mmol/L 15 eGFR >=60 mL/min/1.73m 37 (L) Cholesterol, Total <200 mg/dL 101 Triglyceride <150 mg/dL 84 HDL Cholesterol >39 mg/dL 45 Non HDL Cholesterol <130 mg/dL 56 Fasting Time hrs 12 VLDL Cholesterol <30 mg/dL 17 TC:HDL Ratio <5.10 2.24 LDL Cholesterol <100 mg/dL 39 LDL:HDL Ratio <2.54 0.87 Iron 41 - 186 ug/dL 68 TIBC 232 - 386 ug/dL 253 Transferrin Saturation 15.0 - 57.0 % 26.9 Creatinine, Ur Random (UCRR) 20.0 - 300.0 mg/dL 68.9 Albumin, Urine Random mg/L 119.8 Albumin/Creat Ratio <30 mg/g 174 (H) Hemoglobin A1C 4.3 - 5.6 % 7.0 (H) Estimated Average Glucose mg/dL 154 Vitamin B12 232 - 1,245 pg/mL 1,125 Vitamin D 25 Hydroxy 31.0 - 80.0 ng/mL 90.8 (H) See previous ov: We have not gotten bipap titration results yet. Feels like he " is 82 years old" Feels better with sertraline. No side effects. He is using iron. Was upsetting his stomach but eating a few crackers with it and if feels better. No chest pain or shortness of breath. No edema. Sees Dr. Herndon in November. Does not need to see gi any longer. Bowels are working well. Sugars feel ok. Has polyuria but is unchanged. MEDICATIONS: Current Outpatient Medications Medication Sig carbidopa-levodopa (SINEMET) 25-100 mg per tablet Take 2 tablet daily at 530AM, 2 tablet daily at 11AM and 2 tablet daily at 430PM. gabapentin (NEURONTIN) 300 mg capsule Take 1 capsule by mouth twice daily. atorvastatin (LIPITOR) 40 mg tablet Take 1 tablet by mouth daily at bedtime. For cholesterol. ferrous gluconate 256 mg (28 mg iron) tab Take 1 tablet by mouth once daily. tamsulosin (FLOMAX) 0.4 mg Take 1 capsule by mouth daily at bedtime. sertraline (ZOLOFT) 50 mg tablet Take 1 tablet by mouth once daily. glimepiride (AMARYL) 4 mg tablet Take 1 tablet by mouth twice daily with meals. SITagliptin (JANUVIA) 100 mg tablet Take 1 tablet by mouth once daily. metoprolol tartrate, short acting, (LOPRESSOR) 50 mg tablet Take 1 tablet by mouth twice daily. metFORMIN ER (GLUCOPHAGE XR) 500 mg 24 hr tablet Take 4 tablets by mouth daily with breakfast. folic acid 1 mg tablet Take 1 tablet by mouth once daily. furosemide (LASIX) 40 mg tablet Take 40 mg by mouth once daily. cyanocobalamin (VITAMIN B-12) 1,000 mcg tab Take 1 tablet by mouth once daily. blood sugar diagnostic (BLOOD GLUCOSE TEST) test strip Test blood sugar(s) 1 times daily. Dx: Type 1 DM - Controlled E10.9 Insulin: No aspirin, enteric coated (ASPIRIN, ENTERIC COATED) 81 mg EC tablet Take 81 mg by mouth once daily. Saw Misenheimer 160 mg capsule Take 160 mg by mouth once daily. LANCETS USE DIRECTED cholecalciferol, Vitamin D3, (VITAMIN D3) 1,250 mcg (50,000 unit) cap capsule Take 1 capsule by mouth one time a week. (Patient not taking: Reported on 11/23/2022) No current facility-administered medications for this visit. 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 Splenic artery aneurysm (HCC) repeat scans showed no change/not identified PAST SURGICAL HISTORY Procedure Laterality Date CHOLECYSTECTOMY COLONOSCOPY FLX DX W/COLLJ SPEC WHEN PFRMD 07/13/2005 COLONOSCOPY FLX DX W/COLLJ SPEC WHEN PFRMD 03/11/2015 Colonoscopy COLONOSCOPY SCREENING 11/12/2021 Dr Cano no repeat due to age ESOPHAGOGASTRODUODENOSCOPY TRANSORAL DIAGNOSTIC 03/11/2015 EGD FAMILY HISTORY Problem Relation Age of Onset Coronary Artery Disease Mother Coronary Artery Disease Father Coronary Artery Disease Brother Heart disease Brother Heart disease Maternal Grandmother Heart disease Maternal Grandfather Heart disease Paternal Grandmother Heart disease Paternal Grandfather Social History Tobacco Use Smoking status: Former Types: Cigars Quit date: 11/27/2003 Years since quittin.0 Smokeless tobacco: Never Tobacco comments: cigars-6 a day Vaping Use Vaping Use: Never used Substance Use Topics Alcohol use: No Drug use: No Reviewed current medications, allergies, past medical history, surgical history, family history andsocial history today. REVIEW OF SYSTEMS Seeing Dr. Spaulding for his toes. All other reviewed and negative other than HPI. VITALS: BP 128/68 Pulse 87 Wt 136.1 kg (300 lb) SpO2 96% BMI 43.05 kg/m Last 4 Encounter Wt Readings: Date: Wt: 11/26/2022 136.1 kg (300 lb) 11/23/2022 132.5 kg (292 lb) 10/19/2022 132.5 kg (292 lb) 07/09/2022 0 kg () PHYSICAL EXAMINATION: General appearance: Well appearing, alert, in no acute distress, well-hydrated, well nourished. Skin: abrasions on arms. Head: Normocephalic, no masses, lesions, tenderness or abnormalitie Lungs: Lungs clear to auscultation. No wheezing, rhonchi, rales Heart: RRR without murmur, gallop, or rubs. No ectopy Abdomen: Normal abdominal exam, Abdomen soft, non-tender. Bowel sounds normal. No masses, organomegaly Extremities: No deformities, skin discoloration, clubbing or cyanosis. Good capillary refill. One plus edema. No redness or warmth. Musculoskeletal: No joint swelling, deformity, or tenderness Peripheral pulses: Normal Neuro: no change. Psych: good affect. ASSESSMENT/PLAN: 1. Diabetic polyneuropathy associated with type 2 diabetes mellitus (HCC) - ICD9: 250.60, 357.2, ICD10: E11.42 (primary diagnosis) - Controlled - Continue current medications 2. Hypertensive kidney disease with stage 3 chronic kidney disease, unspecified whether stage 3a or3b CKD ([facility]) - ICD9: 403.90, 585.3, ICD10: I12.9, N18.30 - Controlled - Continue current medications - follow labs. 3. Mixed hyperlipidemia - ICD9: 272.2, ICD10: E78.2 - Controlled 4. Essential hypertension, benign - ICD9: 401.1, ICD10: I10 - Controlled - Continue current medications 5. History of non-ST elevation myocardial infarction (NSTEMI) - ICD9: 412, ICD10: I25.2 - stable. 6. IRINEO (obstructive sleep apnea) - ICD9: 327.23, ICD10: G47.33 - per sleep med. 7. Anemia due to folic acid deficiency, unspecified deficiency type - ICD9: 281.2, ICD10: D52.9 - likely related to chronic disease - CBC + DIFF - IRON + TIBC 8. Anemia due to vitamin B12 deficiency, unspecified B12 deficiency type - ICD9: 281.1, ICD10: D51.9 - stable. 9. Type 2 diabetes mellitus with stage 3 chronic kidney disease, without long- term current use of insulin, unspecified whether stage 3a or 3b CKD ([facility]) - ICD9: 250.40, 585.3, ICD10: E11.22, N18.30 - doing well 10. Benign non-nodular prostatic hyperplasia with lower urinary tract symptoms - ICD9: 600.91, ICD10: N40.1 - stable. 11. 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) - ICD9: 202.80, ICD10: C85.90 - stable. 12. Anxiety with depression - ICD9: 300.4, ICD10: F41.8 - doing well 13. TIA (transient ischemic attack) - ICD9: 435.9, ICD10: G45.9 - no issues 14. Vitamin D deficiency - ICD9: 268.9, ICD10: E55.9 - no chagnes. 15. Tremor, essential - ICD9: 333.1, ICD10: G25.0 - stable. 16. Abrasion - ICD9: 919.0, ICD10: T14.8XXA - Discussed risks and benefits of new medication with the patient. Advised them to call if any sideeffects or questions. - TDAP VACCINE, AGE 7+ YR (ADACEL, BOOSTRIX) Arsh Polk MD documented [facility] this [facility] Evaluation note* Diagnosis Diabetic polyneuropathy associated with type 2 diabetes mellitus (HCC)- Primary Hypertensive kidney disease with stage 3 chronic kidney disease, 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) Mixed hyperlipidemia Essential hypertension, benign History of non-ST elevation myocardial infarction (NSTEMI) Old myocardial infarction IRINEO (obstructive sleep apnea) Obstructive sleep apnea (adult) (pediatric) Anemia due to folic acid deficiency, unspecified deficiency type Anemia due to vitamin B12 deficiency, unspecified B12 deficiency type Type 2 diabetes mellitus with stage 3 chronic kidney disease, without long-term current use of insulin, 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) Benign non-nodular prostatic hyperplasia with lower urinary tract symptoms 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, unspecified site, extranodal and solid organ sites Anxiety with depression TIA (transient ischemic attack) Unspecified transient cerebral ischemia Vitamin D deficiency Unspecified vitamin D deficiency Tremor, essential Essential and other specified forms of tremor Abrasion Abrasion or friction burn of other, multiple, and unspecified sites, without mention of infection documented in this encounter [facility]07[facility] History of Present illness Narrative* Arsh Otto Jr., MD - 11/23/2022 2:28 PM EDT ESTABLISHED PATIENT VISIT CHIEF COMPLAINT: Follow Up HISTORY OF PRESENT ILLNESS: Axel Serrano is a 82 year old male, BMI 41.9 kg/m2 with a PMH significant for and per last office visit of 10/19/22: 1. IRINEO (obstructive sleep apnea) - ICD9: 327.23, ICD10: G47.33 (primary diagnosis) 2. Treatment-emergent central sleep apnea - ICD9: 327.29, ICD10: G47.39 Patient on ASV as above, but with elevated AHI despite ASV compliance and complaints of mask leaks as above, as well as no clinical improvement of symptoms since on PAP. Suspect, after reviewing download, that elevation in AHI and symptoms directly related to mask leak. Note there are some nights that AHI is normalized over past 90 days and it appears on those nights that pressures are not as high as others, while the leak (while still elevated) is not as severe. Discussed with pt and his and feel at this point, rather than change pressure, that focus be on proper mask fit. He has tried x2 through [facility], and thus contacted sleep lab at [facility] to see if they can perform a pap ed and mask fitting. They will schedule so that he can be fitted with PAP on and in a recliner as he sleeps at home. I am also asking that they try him with an under the nose FFM. These were demonstrated todayvia the WWW. Discussed with patient: the physiology of OSAS, medical conditions associated with OSAS (DM, HTN, CAD, Depression, Stroke, Headache...) and treatment options (UPPP, Dental appliances, CPAP...). Advised patient to avoid activities that could harm self or others when tired/sleepy, including driving and/or operating heavy machinery. Encouraged weight loss, and continued compliance with other medications. 3. Parkinson disease (HCC) - ICD9: 332.0, ICD10: G20 Patient with s/s to suggest clinical diagnosis of PD. Due to limited duration with pt today (and 2 major dx) d/w pt option of not starting meds until a reevaluation in a few weeks. However, after discussing dx with pt, symptoms, and treatment options, he would like to try a medication to see if anyimprovement in symptoms. Thus, will place on Sinemet 25/100mg TID (approximately 4-6 hours between doses for now). SE and ADRs d/w pt. Advised pt and his to monitor for any improvement in symptoms. They will follow up in 4 weeks or sooner prn. At that time will further expand on PD education and discuss other treatment options such as stop the dz therapy. PAP data download since last visit does show overall improvement in AHI but still elevated >5 and suspect directly related to persistent mask leak. AHI is 15.2 with AI of 1.9. 95% leak is 80.9 LPM. Feels PAP setting too much when first starts. ASV set EEP 7 cmH2O, PS 6-18 H2O. He feels new mask fits better. Leaks per pt appear to be in the gwendolyn NLFs. states when first puts PAP on, it fits well. Sleeping in the recliner. Patient does not report any difference since on Sinemet. When I ask , states she has not been paying attention to the tremor. They have focused only on tremor and not all other symptoms. Did havea fall during the interim - fatigues easily. States he just felt like he was going down. No loc. Nolightheadedness. States just that the back of his legs give out. Taking Sinemet 5AM-11AM and 4PM. Overall function worst in the AM but pt blames on prior back injuries. REVIEW OF SYSTEMS GENERAL:No weight loss, malaise or fevers. HEENT:Negative for frequent or significant headaches, No changes in hearing or vision, no nose bleeds or other nasal problems RESPIRATORY: Negative for cough, wheezing or shortness of breath. CARDIOVASCULAR: Negative for chest pain, leg swelling or palpitations. GASTROINTESTINAL: Negative for abdominal discomfort, blood in stools or black stools or change in bowel habits GENITOURINARY: No history of dysuria, frequency or incontinence MUSCULOSKELETAL: See HPI. NEUROLOGIC:See HPI. LAB/IMAGING: Those performed since patient's last visit have been reviewed. WBC (k/uL) Date Value 11/17/2022 10.03 RBC (m/uL) Date Value 11/17/2022 3.67 (L) Hemoglobin (g/dL) Date Value 11/17/2022 10.5 (L) Hematocrit (%) Date Value 11/17/2022 33.1 (L) MCV (fL) Date Value 11/17/2022 90.2 MCH (pg) Date Value 11/17/2022 28.6 MCHC (g/dL) Date Value 11/17/2022 31.7 RDW-CV (%) Date Value 11/17/2022 14.6 Platelet Count (k/uL) Date Value 11/17/2022 198 MPV (fL) Date Value 11/17/2022 10.8 Glucose (mg/dL) Date Value 11/17/2022 134 (H) BUN (mg/dL) Date Value 11/17/2022 29 (H) Creatinine (mg/dL) Date Value 11/17/2022 1.80 (H) Sodium (mmol/L) Date Value 11/17/2022 139 Potassium (mmol/L) Date Value 11/17/2022 5.2 (H) Chloride (mmol/L) Date Value 11/17/2022 101 CO2 (mmol/L) Date Value 11/17/2022 23 Protein, Total (g/dL) Date Value 11/17/2022 6.7 Albumin (g/dL) Date Value 11/17/2022 3.5 (L) Calcium, Total (mg/dL) Date Value 11/17/2022 9.6 Alkaline Phosphatase (U/L) Date Value 11/17/2022 38 Bilirubin, Total (mg/dL) Date Value 11/17/2022 0.5 AST (U/L) Date Value 11/17/2022 11 (L) ALT (U/L) Date Value 11/17/2022 <5 (L) YOGI (no units) Date Value 05/20/2017 Positive (A) Rheumatoid Factor (IU/mL) Date Value 05/20/2017 <10 MEDICATIONS: gabapentin (NEURONTIN) 300 mg capsule Take 1 capsule by mouth twice daily. atorvastatin (LIPITOR) 40 mg tablet Take 1 tablet by mouth daily at bedtime. For cholesterol. ferrous gluconate 256 mg (28 mg iron) tab Take 1 tablet by mouth once daily. carbidopa-levodopa (SINEMET) 25-100 mg per tablet Take 1 tablet daily at 530AM, 1 tablet daily at 11AM and 1 tablet daily at 430PM. tamsulosin (FLOMAX) 0.4 mg Take 1 capsule by mouth daily at bedtime. sertraline (ZOLOFT) 50 mg tablet Take 1 tablet by mouth once daily. glimepiride (AMARYL) 4 mg tablet Take 1 tablet by mouth twice daily with meals. SITagliptin (JANUVIA) 100 mg tablet Take 1 tablet by mouth once daily. metoprolol tartrate, short acting, (LOPRESSOR) 50 mg tablet Take 1 tablet by mouth twice daily. metFORMIN ER (GLUCOPHAGE XR) 500 mg 24 hr tablet Take 4 tablets by mouth daily with breakfast. folic acid 1 mg tablet Take 1 tablet by mouth once daily. furosemide (LASIX) 40 mg tablet Take 40 mg by mouth once daily. cyanocobalamin (VITAMIN B-12) 1,000 mcg tab Take 1 tablet by mouth once daily. aspirin, enteric coated (ASPIRIN, ENTERIC COATED) 81 mg EC tablet Take 81 mg by mouth once daily. Saw Misenheimer 160 mg capsule Take 160 mg by mouth once daily. cholecalciferol, Vitamin D3, (VITAMIN D3) 1,250 mcg (50,000 unit) cap capsule Take 1 capsule by mouth one time a week. (Patient not taking: Reported on 11/23/2022) blood sugar diagnostic (BLOOD GLUCOSE TEST) test strip Test blood sugar(s) 1 times daily. 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 Splenic artery aneurysm (HCC) repeat scans showed no change/not identified FAMILY HISTORY Problem Relation Age of Onset Coronary Artery Disease Mother Coronary Artery Disease Father Coronary Artery Disease Brother Heart disease Brother Heart disease Maternal Grandmother Heart disease Maternal Grandfather Heart disease Paternal Grandmother Heart disease Paternal Grandfather SOCIAL HISTORY Social History Tobacco Use Smoking status: Former Types: Cigars Quit date: 11/27/2003 Years since quittin.0 Smokeless tobacco: Never Tobacco comments: cigars-6 a day Vaping Use Vaping Use: Never used Substance Use Topics Alcohol use: No Drug use: No PHYSICAL EXAMINATION BP 126/64 Pulse 60 Temp 36.6 C (97.9 F) Resp 16 Wt 132.5 kg (292 lb) SpO2 95% BMI 41.90kg/m GENERAL EXAM: General appearance: NAD, pleasant. HEENT: NC/AT, nasal congestion absent, no oral lesions, membranes moist. Lungs: CTA bilaterally. CV: RRR nl S1, S2 Skin: Cool to touch. NEUROLOGICAL EXAM: General: Masked facies, mild hypophonia. Awake, alert, oriented x3 (person,place,time), speech fluent, no dysarthria; comprehension, naming, repetition intact. CN: PERRL, fundi with no evidence of papilledema, EOMI and without nystagmus, VFF to confrontation,facial sensation and strength are normal and symmetric, hearing is intact to finger rub bilaterally, palate and tongue movements are intact and symmetric. SCM and trapezius strength normal. Motor: Bulk and strength (5/5) bilaterally (throughout extremities x4). Increased tone LUE. Coordination: FNF, ALEX, HTS intact. Resting tremor minimal today - when noted in LUE only. Sensation: Light touch, vibration, temperature intact throughout. No evidence of neglect. Gait: Cannot rise from chair without use of upper exts but less effort today. Stride not normal butstill improved since last visit. Stooped posture. Decreased arm swing mild in LUE and normal arm swing in RUE. 4 steps to turn 180 degrees. Retropulsion on pull testing. Romberg normal. Assessment and Plan: ASSESSMENT/PLAN: 1. IRINEO on CPAP - ICD9: 327.23, V46.8, ICD10: G47.33 (primary diagnosis) 2. Treatment-emergent central sleep apnea - ICD9: 327.29, ICD10: G47.39 Overall AHI improving despite minimal improvement in mask leak with new mask ([employer] - DME). Patient feels like too much pressure at start of the night. Will request DME review PAP settings and lower ramp start up if possible. However, somewhat difficult to lower pressures with pt on ASV which would be variable. Would like patient to be with current mask for a long duration to see if further improvement over time. Reminded to clean and replace PAP equipment regularly. Advised no driving or operate heavy machinery if sleepy. 3. Parkinson disease (HCC) - ICD9: 332.0, ICD10: G20 While patient and initially noted no difference on Sinemet, after examining patient and seeingimprovement in gait and fine motor movement as well as tremor, they admit that they have been more focused on PAP therapy than PD symptoms. D/w them and would like to further increase Sinemet dose to25/100mg 2 tabs TID as scheduled above to see if further improves symptoms. Review Sinemet SE and ADRs with patient and . Follow up in 8 weeks or sooner prn to see if symptom continue to improve. Arsh Otto MD I spent a total of 35 minutes on the date of the service which included preparing to see the patient, [id number] patient care, completing clinical documentation, obtaining and/or reviewing separately obtained history, performing a medically appropriate examination, counseling and educating the pat ient/family/caregiver, ordering medications, tests, or procedures, independently interpreting results (not separately reported), and communicating results to the patient/family/caregiver. Medical Decision Making: Problems: Moderate: 2+ stable chronic illnesses Data: Unique test result(s) reviewed: 2 Risk: Moderate: Drug management Medical Decision Making Level: 4 - Moderate documented in this encounterCh[facility] Miscellaneous Notes* Telephone Encounter - Lizzette Restrepo LPN - 11/02/2022 4:55 PM EDT Patient has been identified by name and date of : Yes Requested Prescriptions Pending Prescriptions Disp Refills atorvastatin (LIPITOR) 40 mg tablet 90 tablet 3 Sig: Take 1 tablet by mouth daily at bedtime. For cholesterol. ferrous gluconate 256 mg (28 mg iron) tab 90 tablet 3 Sig: Take 1 tablet by mouth once daily. RX INSTRUCTIONS: Patient aware RX will be sent to pharmacy. No need to notify patient. Lizzette Restrepo LPN documented in this encounterCh[facility]06-26-2023 Miscellaneous Notes* Telephone Encounter - Lizzette Restrepo LPN - 11/02/2022 4:51 PM EDT Patient has been identified by name and date of : Yes Requested Prescriptions Pending Prescriptions Disp Refills gabapentin (NEURONTIN) 300 mg capsule 60 capsule 11 Sig: Take 1 capsule by mouth twice daily. RX INSTRUCTIONS: Patient aware RX will be sent to pharmacy. No need to notify patient. Lizzette Restrepo LPN documented in this encounterCh[facility]06-15-2023 Miscellaneous Notes* Telephone Encounter - Lupe Reyna MA - 10/22/2022 8:08 PM EDT Advised spouse some under the nose full face mask brands are: [employer] Respironics Dream Wear full face mask or [employer]Med AirFit F30 full face mask. Advised spouse to call office back if any issues goingfurther. Spouse verbalized understanding of instructions. Lupe Reyna MA * Telephone Encounter - Magda Turner RN - 10/22/2022 10:42 AM EDT Spouse (Suri) calls to report that [facility] Sleep lab doesn't know what face mask provider is referring to. Reviewed below high light with Suri. Suri asking for a specific name or brand and further directions be added to current order and faxed to [facility]. Suri requests call back from provider's office at [phone]. ASSESSMENT/PLAN: 1. IRINEO (obstructive sleep apnea) - ICD9: 327.23, ICD10: G47.33 (primary diagnosis) 2. Treatment-emergent central sleep apnea - ICD9: 327.29, ICD10: G47.39 Patient on ASV as above, but with elevated AHI despite ASV compliance and complaints of mask leaks as above, as well as no clinical improvement of symptoms since on PAP. Suspect, after reviewing download, that elevation in AHI and symptoms directly related to mask leak. Note there are some nights that AHI is normalized over past 90 days and it appears on those nights that pressures are not as high as others, while the leak (while still elevated) is not as severe. Discussed with pt and his and feel at this point, rather than change pressure, that focus be on proper mask fit. He has tried x2 through [facility], and thus contacted sleep lab at [facility] to see if they can perform a pap ed and mask fitting. They will schedule so that he can be fitted with PAP on and in a recliner as he sleeps at home. I am also asking that they try him with an under the nose FFM. These were demonstrated todayvia the WWW. Thank you, Magda Turner RN documented in this encounterCh[facility]03-14-2023 Miscellaneous Notes* Telephone Encounter - Lulu Alcazar - 07/21/2022 1:39 PM EDT Rx refilled in separate encounter. Tvoop message sent to inform and let him know to make appt. Lulu Alcazar * Telephone Encounter - Jackie Hardy LPN - 07/21/2022 1:25 PM EDT Called patient. Patient unable to talk on phone at this time. Message left for patient to call clinic. Jackie Hardy LPN * Telephone Encounter - Darnell Mackey PA-C - 07/20/2022 4:35 PM EDT Patient needs annual Appointment for Renewals JUAN Garcia, LIS ISSA documented in this encounterChillic[facility]03-13-2023 Miscellaneous Notes* Telephone Encounter - Lizzette Restrepo LPN - 07/20/2022 3:05 PM EDT Patient has been identified by name and date of : Yes Requested Prescriptions Pending Prescriptions Disp Refills sertraline (ZOLOFT) 50 mg tablet 90 tablet 3 Sig: Take 1 tablet by mouth once daily. RX INSTRUCTIONS: Patient aware RX will be sent to pharmacy. No need to notify patient. Lizzette Restrepo LPN documented in this encounterChillic[facility]03-02-2023 History of Present illness Narrative* Larisa Mccollum, RT(R) - 07/09/2022 1:30 PM EST Radiology Service Progress Note PATIENT NAME: Axel Serrano DATE OF SERVICE: July 09, 2022 TIME: 1:22 PM PATIENT IDENTITY VERIFICATION COMPLETED USING TWO (2) IDENTIFIERS: Name and Date of confirmedby patient verbally. FALL SCREENING: Has the patient had 2 falls in the last year or 1 fall with injury or currently using an Ambulatory Assistive Device (Walker, Cane, Wheelchair, Crutches, etc.)? No PATIENT GENDER DATA: Male PATIENT RELEVANT IMPLANT DATA REVIEWED: Yes RADIOLOGY DEPARTMENT: General X-ray: Exam(s) Completed: Chest X-Ray PERIPHERAL IV DATA: Not applicable SIGNED BY: RT Landon(R) July 09, 2022 1:22 PM documented in this encounterChillicothe [facility]03-02-2023 History of Present illness Narrative* GEETA Parham - 07/09/2022 1:19 PM EST This note was created using Agillicriter. Subjective Axel Serrano is a 82 year old male. HPI 82-year-old male presents for cough, sore throat x4-5 days. Patient states over the weekend he had congestion and cough. States the cough is improving a little bit. He states yesterday he felt very fatigued and weak. This is improved today. He has not had any fevers, but states that he felt warm over the weekend. No sick contacts. No vomiting or diarrhea. No chest pain or shortness of breath. 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 cholecalciferol, Vitamin D3, (VITAMIN D3) 1,250 mcg (50,000 unit) cap capsule Take 1 capsule by mouth one time a week. ferrous gluconate 256 mg (28 mg iron) tab Take 1 tablet by mouth once daily. SITagliptin (JANUVIA) 100 mg tablet Take 1 tablet by mouth once daily. metoprolol tartrate, short acting, (LOPRESSOR) 50 mg tablet Take 1 tablet by mouth twice daily. sertraline (ZOLOFT) 50 mg tablet Take 1 tablet by mouth once daily. metFORMIN ER (GLUCOPHAGE XR) 500 mg 24 hr tablet Take 4 tablets by mouth daily with breakfast. folic acid 1 mg tablet Take 1 tablet by mouth once daily. atorvastatin (LIPITOR) 40 mg tablet Take 1 tablet by mouth daily at bedtime. For cholesterol. gabapentin (NEURONTIN) 300 mg capsule Take 1 capsule by mouth twice daily. tamsulosin (FLOMAX) 0.4 mg TAKE ONE CAPSULE BY MOUTH DAILY AT BEDTIME furosemide (LASIX) 40 mg tablet Take 40 mg by mouth once daily. cyanocobalamin (VITAMIN B-12) 1,000 mcg tab Take 1 tablet by mouth once daily. aspirin, enteric coated (ASPIRIN, ENTERIC COATED) 81 mg EC tablet Take 81 mg by mouth once daily. Saw Misenheimer 160 mg capsule Take 160 mg by mouth once daily. blood sugar diagnostic (BLOOD GLUCOSE TEST) test strip Test blood sugar(s) 1 times daily. Dx: Type 1 DM - Controlled E10.9 Insulin: No (Patient not taking: No sig reported) LANCETS USE DIRECTED (Patient not taking: No sig reported) FAMILY HISTORY Problem Relation Age of Onset Coronary Artery Disease Mother Coronary Artery Disease Father Coronary Artery Disease Brother Heart disease Brother Heart disease Maternal Grandmother Heart disease Maternal Grandfather Heart disease Paternal Grandmother Heart disease Paternal Grandfather Social History Tobacco Use Smoking status: Former Types: Cigars Quit date: 11/27/2003 Years since quittin.6 Smokeless tobacco: Never Tobacco comments: cigars-6 a day Vaping Use Vaping Use: Never used Substance Use Topics Alcohol use: No Drug use: No Review of Systems Constitutional: Positive for fatigue. Negative for chills and fever (tactile). HENT: Positive for congestion and sore throat. Respiratory: Positive for cough. Negative for shortness of breath. Gastrointestinal: Negative for diarrhea and vomiting. Objective BP 126/72 Pulse 60 Temp 36.6 C (97.9 F) (Tympanic) Resp 16 SpO2 95% Physical Exam Vitals and nursing note reviewed. Constitutional: General: He is not in acute distress. Appearance: Normal appearance. He is not toxic-appearing. HENT: Right Ear: Tympanic membrane and ear canal normal. Left Ear: Tympanic membrane and ear canal normal. Nose: Congestion present. Mouth/Throat: Mouth: Mucous membranes are moist. Eyes: Conjunctiva/sclera: Conjunctivae normal. Cardiovascular: Rate and Rhythm: Normal rate and regular rhythm. Pulmonary: Effort: Pulmonary effort is normal. Breath sounds: Normal breath sounds. Skin: General: Skin is warm and dry. Neurological: Mental Status: He is alert. Assessment and Plan ASSESSMENT/PLAN: 1. URI, acute - ICD9: 465.9, ICD10: J06.9 (primary diagnosis) - Discussed viral etiology and rationale for treatment. - Symptomatic treatment with prn analgesia - Supportive care with fluids and rest - COVID WITH FLUA+B, ROUTINE -Out of window for antiviral and Tamiflu - XR CHEST 2V FRONTAL/LAT-no acute findings 2. Acute cough - ICD9: 786.2, ICD10: R05.1 - XR CHEST 2V FRONTAL/LAT-no acute finding -Patient states his cough and symptoms are improving. Recommended fluids, OTC Tylenol/Motrin as needed. -Follow-up with PCP if not improving. -COVID/flu test pending. Out of window for the antiviral for COVID Diagnosis and treatment plan were discussed and questions were answered to the patient's satisfaction. Pt acknowledged understanding of concepts and follow up plan. Specific signs and symptoms that would indicate the need for higher level of care were discussed in detail warranting prompt ER evaluation. GEETA Parham documented in this encounterCh[facility]02-13-2023 Miscellaneous Notes* Telephone Encounter - Aye Silvestre Ma - 06/22/2022 2:19 PM EST Declined refill and placed in other refill encounter. Made pt aware of why he would see decline. Aye Silvestre Ma documented in this encounterCh[facility]ic[facility]02-13-2023 Miscellaneous Notes* Telephone Encounter - Aye Silvestre Ma - 06/22/2022 2:17 PM EST Last OV; 05/29/22 Next OV; 11/26/22 Amaryl - 04/14/21 #180 w/3. Vit D - 07/21/21 #12 w/3. Aye Silvestre Ma documented in this encounterChillic[facility]01-20-2023 History of Present illness Narrative* Arsh Polk MD - 05/29/2022 10:08 AM EST Patient presents with: Follow Up Sleep Apnea: Needing PSG results from [facility] unsure what is happening there will log in to look for results. HPI: Patient presents today for office visit for follow up. We have not gotten bipap titration results yet. Feels like he " is 82 years old" Feels better with sertraline. No side effects. He is using iron. Was upsetting his stomach but eating a few crackers with it and if feels better. No chest pain or shortness of breath. No edema. Sees Dr. Herndon in November. Does not need to see gi any longer. Bowels are working well. Sugars feel ok. Has polyuria but is unchanged. MEDICATIONS: Current Outpatient Medications Medication Sig ferrous gluconate 256 mg (28 mg iron) tab Take 1 tablet by mouth once daily. SITagliptin (JANUVIA) 100 mg tablet Take 1 tablet by mouth once daily. metoprolol tartrate, short acting, (LOPRESSOR) 50 mg tablet Take 1 tablet by mouth twice daily. sertraline (ZOLOFT) 50 mg tablet Take 1 tablet by mouth once daily. metFORMIN ER (GLUCOPHAGE XR) 500 mg 24 hr tablet Take 4 tablets by mouth daily with breakfast. folic acid 1 mg tablet Take 1 tablet by mouth once daily. atorvastatin (LIPITOR) 40 mg tablet Take 1 tablet by mouth daily at bedtime. For cholesterol. gabapentin (NEURONTIN) 300 mg capsule Take 1 capsule by mouth twice daily. cholecalciferol, Vitamin D3, (VITAMIN D3) 1,250 mcg (50,000 unit) cap capsule Take 1 capsule by mouth one time a week. tamsulosin (FLOMAX) 0.4 mg TAKE ONE CAPSULE BY MOUTH DAILY AT BEDTIME glimepiride (AMARYL) 4 mg tablet Take 1 tablet by mouth twice daily with meals. furosemide (LASIX) 40 mg tablet Take 40 mg by mouth once daily. cyanocobalamin (VITAMIN B-12) 1,000 mcg tab Take 1 tablet by mouth once daily. blood sugar diagnostic (BLOOD GLUCOSE TEST) test strip Test blood sugar(s) 1 times daily. Dx: Type 1 DM - Controlled E10.9 Insulin: No (Patient not taking: No sig reported) aspirin, enteric coated (ASPIRIN, ENTERIC COATED) 81 mg EC tablet Take 81 mg by mouth once daily. Saw Misenheimer 160 mg capsule Take 160 mg by mouth once daily. LANCETS USE DIRECTED (Patient not taking: No sig reported) No current facility-administered medications for this visit. 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 Splenic artery aneurysm (HCC) repeat scans showed no change/not identified PAST SURGICAL HISTORY Procedure Laterality Date CHOLECYSTECTOMY COLONOSCOPY FLX DX W/COLLJ SPEC WHEN PFRMD 07/13/2005 COLONOSCOPY FLX DX W/COLLJ SPEC WHEN PFRMD 03/11/2015 Colonoscopy COLONOSCOPY SCREENING 11/12/2021 Dr Cano no repeat due to age ESOPHAGOGASTRODUODENOSCOPY TRANSORAL DIAGNOSTIC 03/11/2015 EGD FAMILY HISTORY Problem Relation Age of Onset Coronary Artery Disease Mother Coronary Artery Disease Father Coronary Artery Disease Brother Heart disease Brother Heart disease Maternal Grandmother Heart disease Maternal Grandfather Heart disease Paternal Grandmother Heart disease Paternal Grandfather Social History Tobacco Use Smoking status: Former Types: Cigars Quit date: 11/27/2003 Years since quittin.5 Smokeless tobacco: Never Tobacco comments: cigars-6 a day Vaping Use Vaping Use: Never used Substance Use Topics Alcohol use: No Drug use: No Reviewed current medications, allergies, past medical history, surgical history, family history andsocial history today. REVIEW OF SYSTEMS All other reviewed and negative other than HPI. HEALTH MAINTENANCE: Reviewed health maintenance issues today and recommended the following in detail. DIABETIC FOOT EXAM due on 01/30/2022 HBA1C due on 04/29/2022 ADVANCE DIRECTIVE DISCUSSION -had dpoa. is surrogate DEPRESSION ASSESSMENT was done VITALS: BP 122/72 Pulse 84 Wt 135.2 kg (298 lb) BMI 42.76 kg/m Last 4 Encounter Wt Readings: Date: Wt: 05/29/2022 135.2 kg (298 lb) 02/25/2022 132.9 kg (293 lb) 01/21/2022 135.6 kg (299 lb) 12/10/2021 135.6 kg (299 lb) PHYSICAL EXAMINATION: General appearance: Well appearing, alert, in no acute distress, well-hydrated, well nourished. Skin: Skin color, texture, turgor normal, no suspicious rashes or lesions Head: Normocephalic, no masses, lesions, tenderness or abnormalities Lungs: Lungs clear to auscultation. No wheezing, rhonchi, rales Heart: RRR without murmur, gallop, or rubs. No ectopy Abdomen: Normal abdominal exam, Abdomen soft, non-tender. Bowel sounds normal. No masses, organomegaly Extremities: No deformities, edema, skin discoloration, clubbing or cyanosis. Good capillary refill. ASSESSMENT/PLAN: 1. Diabetic polyneuropathy associated with type 2 diabetes mellitus (HCC) - ICD9: 250.60, 357.2, ICD10: E11.42 (primary diagnosis) - continue current issues. - HGB A1C - CBC + DIFF - BASIC METABOLIC PNL 2. Morbid obesity with BMI of 40.0-44.9, adult (HCC) - ICD9: 278.01, V85.41, ICD10: E66.01, Z68.41 - stable. 3. Type 2 diabetes mellitus with stage 3 chronic kidney disease, without long- term current use of insulin, 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) - ICD9: 250.40, 585.3, ICD10: E11.22, N18.30 Controlled. - Continue current medications - HGB A1C 4. 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 1 through stage 4 chronic kidney disease, or unspecified chronic kidney disease (HCC) - ICD9: 404.91, 428.9, 585.9, ICD10: I13.0 - good control - Continue current medication(s) - Goal of BP <130/80 5. Tremor, essential - ICD9: 333.1, ICD10: G25.0 - stable. 6. Mixed hyperlipidemia - ICD9: 272.2, ICD10: E78.2 - good control - Continue current medication. 7. Hypertensive kidney disease with stage 3 chronic kidney disease, unspecified whether stage 3a or3b CKD (HCC) - ICD9: 403.90, 585.3, ICD10: I12.9, N18.30 - good control - Goal of BP <130/80 8. History of non-ST elevation myocardial infarction (NSTEMI) - ICD9: 412, ICD10: I25.2 9. Essential hypertension, benign - ICD9: 401.1, ICD10: I10 - good control - Goal of BP <130/80 10. Aortic valve stenosis, etiology of cardiac valve disease unspecified - ICD9: 424.1, ICD10: I35.0 - continue current med 11. Anemia due to folic acid deficiency, unspecified deficiency type - ICD9: 281.2, ICD10: D52.9 - FOLATE SERUM 12. Anemia due to vitamin B12 deficiency, unspecified B12 deficiency type - ICD9: 281.1, ICD10: D51.9 - VITAMIN B12 BLOOD 13. Stage 3 chronic kidney disease, 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) - ICD9: 585.3, ICD10: N18.30 - stable. 14. 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) - ICD9: 202.80, ICD10: C85.90 - stable. 15. Vitamin D deficiency - ICD9: 268.9, ICD10: E55.9 16. TIA (transient ischemic attack) - ICD9: 435.9, ICD10: G45.9 17. Microalbuminuria - ICD9: 791.0, ICD10: R80.9 18. Anxiety with depression - ICD9: 300.4, ICD10: F41.8 - continue meds. 19. IRINEO (obstructive sleep apnea) - ICD9: 327.23, ICD10: G47.33 - needs a second titration. - PAP TITRATION PSG (CPAP, BIPAP, ASV) Arsh Polk MD documented in this [facility]12[facility]28-[facility]22 Miscellaneous Notes* Telephone Encounter - Karson Johansen LPN - 05/06/2022 9:45 AM EST Patient phones requesting refills as follows: Requested Prescriptions Pending Prescriptions Disp Refills ferrous gluconate 256 mg (28 mg iron) tab 30 tablet 5 Sig: Take 1 tablet by mouth once daily. [facility] 02/25/22 05/29/22 Please review and advise. Karson Johansen LPN documented in this encounterCh[facility]11-28-2022 Miscellaneous Notes* Telephone Encounter - Karson Johansen LPN - 04/06/2022 10:05 AM EST Patient phones requesting refills as follows: Requested Prescriptions Pending Prescriptions Disp Refills SITagliptin (JANUVIA) 100 mg tablet 90 tablet 3 Sig: Take 1 tablet by mouth once daily. [facility] 02/25/22 05/29/22 Please review and advise. Karson Johansen LPN documented [facility] this [facility]10[facility]31[facility] Miscellaneous Notes* Telephone Encounter - Lizzette Restrepo LPN - 03/09/2022 12:14 PM EDT Patient has been identified by name and date of : Yes Requested Prescriptions Pending Prescriptions Disp Refills metoprolol tartrate, short acting, (LOPRESSOR) 50 mg tablet 180 tablet 3 Sig: Take 1 tablet by mouth twice daily. RX INSTRUCTIONS: Patient aware RX will be sent to pharmacy. No need to notify patient. Lizzette Restrepo LPN documented in this encounterCh[facility]10-24-2022 Miscellaneous Notes* Telephone Encounter - Henna Rankin LPN - 03/02/2022 1:19 PM EDT [facility] from [facility] Sleep lab calling asking for copy of office notes prior to home sleep study done in early January, discussing sleep apnea or snoring, etc. Printed office notes from 11/07/2021 and faxed to [phone] as requested. documented in this encounterCh[facility]09-16-2022 Miscellaneous Notes* Telephone Encounter - Lizzette Restrepo LPN - 01/23/2022 2:21 PM EDT Left detailed message with appt time. * Telephone Encounter - Aye Silvestre Ma - 01/21/2022 3:02 PM EDT Please see note below. Only appt's available are 1 day, Physical and Hospital f/u as well as PCP Flex. Aye Slivestre Ma * Telephone Encounter - Mariola Nick Pss - 01/21/2022 2:32 PM EDT Spouse called stating patient was in the office today and was to have a 4 week follow up scheduled.Nothing available with Dr. Polk until March. Please schedule and advise. documented in this encounterCh[facility]09-14-2022 History of Present illness Narrative* Arsh Polk MD - 01/21/2022 10:57 AM EDT Patient presents with: Follow Up HPI: Patient presents today for office visit for 6wk follow up. Fatigue about the same. Still on B-12 and Iron. Sleep study completed and results in. Reviewed study. He needs in house study. Would cause his issues. Some myalgias with statin. Notices in shoulders more than anything. Does not check BS at home. He again admits to depression. Denies suicidal ideation. He is now willing to take medications. Bp is lower today. No chest pain or new shortness of breath. No dizziness. See previous ov: See last ov. Had refused egd and colonoscopy when recommended. They had issues with his sleep study. Trying again soon. He did finally have a colonoscopy. He sees Dr. Cano's office again. No bloody or black stools. Dark from iron Discussed that they should see if they want to do an egd. No dysphagia. No heartburn. He is back on his lipitor. No new myalgias. We discussed that in addition to an egd, he consider seeing hematology. He will take it "one step at ta time." Still fatigued. Remains on b12 and iron. His anemia dates back about 7 years when he was diagnosed with b12 deficiency. Has actually been stable on oral b12. Used to be on shots had egd and colonoscopy initially andhas been stable. He just underwent another colonoscopy. Awaiting sleep study. He did remotely have mld subcm lymphadenopathy but was unchanged after recheck over several years. He had declined further follow up at that time. Admits to depression. Frustrated at not being able to do as much. Offered repeat ct and or hematology work up. Offered meds or counseling-"not ready"-"I am old school." Sleep study: . This study confirms a diagnosis of severe sleep apnea with both central and obstructive events. The central events did occur in a periodic fashion. The diagnosis of central sleep apnea is limited on home sleep apnea testing due to lack of sleep staging and arousal detection. An in-laboratory PAP titration study is recommended . MEDICATIONS: Current Outpatient Medications Medication Sig metFORMIN ER (GLUCOPHAGE XR) 500 mg 24 hr tablet Take 4 tablets by mouth daily with breakfast. folic acid 1 mg tablet Take 1 tablet by mouth once daily. ferrous gluconate 256 mg (28 mg iron) tab Take 1 tablet by mouth once daily. atorvastatin (LIPITOR) 40 mg tablet Take 1 tablet by mouth daily at bedtime. For cholesterol. gabapentin (NEURONTIN) 300 mg capsule Take 1 capsule by mouth twice daily. metoprolol tartrate, short acting, (LOPRESSOR) 50 mg tablet Take 1 tablet by mouth twice daily. cholecalciferol, Vitamin D3, (VITAMIN D3) 1,250 mcg (50,000 unit) cap capsule Take 1 capsule by mouth one time a week. tamsulosin (FLOMAX) 0.4 mg TAKE ONE CAPSULE BY MOUTH DAILY AT BEDTIME glimepiride (AMARYL) 4 mg tablet Take 1 tablet by mouth twice daily with meals. SITagliptin (JANUVIA) 100 mg tablet Take 1 tablet by mouth once daily. furosemide (LASIX) 40 mg tablet Take 40 mg by mouth once daily. cyanocobalamin (VITAMIN B-12) 1,000 mcg tab Take 1 tablet by mouth once daily. blood sugar diagnostic (BLOOD GLUCOSE TEST) test strip Test blood sugar(s) 1 times daily. Dx: Type 1 DM - Controlled E10.9 Insulin: No (Patient not taking: Reported on 07/22/2021 ) aspirin, enteric coated (ASPIRIN, ENTERIC COATED) 81 mg EC tablet Take 81 mg by mouth once daily. Saw Misenheimer 160 mg capsule Take 160 mg by mouth once daily. LANCETS USE DIRECTED (Patient not taking: Reported on 07/22/2021) No current facility-administered medications for this visit. 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 Splenic artery aneurysm (HCC) repeat scans showed no change/not identified PAST SURGICAL HISTORY Procedure Laterality Date CHOLECYSTECTOMY COLONOSCOPY FLX DX W/COLLJ SPEC WHEN PFRMD 07/13/2005 COLONOSCOPY FLX DX W/COLLJ SPEC WHEN PFRMD 03/11/2015 Colonoscopy COLONOSCOPY SCREENING 11/12/2021 Dr Cano no repeat due to age ESOPHAGOGASTRODUODENOSCOPY TRANSORAL DIAGNOSTIC 03/11/2015 EGD FAMILY HISTORY Problem Relation Age of Onset Coronary Artery Disease Mother Coronary Artery Disease Father Coronary Artery Disease Brother Heart disease Brother Heart disease Maternal Grandmother Heart disease Maternal Grandfather Heart disease Paternal Grandmother Heart disease Paternal Grandfather Social History Tobacco Use Smoking status: Former Types: Cigars Quit date: 11/27/2003 Years since quittin.1 Smokeless tobacco: Never Tobacco comments: cigars-6 a day Vaping Use Vaping Use: Never used Substance Use Topics Alcohol use: No Drug use: No Reviewed current medications, allergies, past medical history, surgical history, family history andsocial history today. REVIEW OF SYSTEMS All other reviewed and negative other than HPI. VITALS: BP 108/60 Pulse (!) 55 Ht 177.8 cm (5' 10") Wt 135.6 kg (299 lb) SpO2 99% BMI 42.90 kg/m Last 4 Encounter Wt Readings: Date: Wt: 12/10/2021 135.6 kg (299 lb) 11/07/2021 137 kg (302 lb) 10/28/2021 137 kg (302 lb) 07/30/2021 131.5 kg (290 lb) PHYSICAL EXAMINATION: General appearance: Well appearing, alert, in no acute distress, well-hydrated, well nourished. Skin: Skin color, texture, turgor normal, no suspicious rashes or lesions Head: Normocephalic, no masses, lesions, tenderness or abnormalities Lungs: Lungs clear to auscultation. No wheezing, rhonchi, rales Heart: RRR without murmur, gallop, or rubs. No ectopy Abdomen: Normal abdominal exam, Abdomen soft, non-tender. Bowel sounds normal. No masses, organomegaly Extremities: No deformities, edema, skin discoloration, clubbing or cyanosis. Good capillary refill. ASSESSMENT/PLAN: 1. Fatigue, unspecified type - ICD9: 780.79, ICD10: R53.83 (primary diagnosis) - willing to add meds. Red flags for re-assessment reviewed with patient in detail. Discussed risks and benefits of new medication with the patient. Advised them to call if any side effects or questions. - SERTRALINE 50 MG TABLET 2. Encounter for immunization - ICD9: V03.89, ICD10: Z23 - INFLUENZA SEASONAL QUADRIVALENT HIGH DOSE AGE 65+ 3. Anxiety with depression - ICD9: 300.4, ICD10: F41.8 - SERTRALINE 50 MG TABLET 4. IRINEO (obstructive sleep apnea) - ICD9: 327.23, ICD10: G47.33 - do in lab titration. Arsh DANIELLE in four weeks. documented in this encounterCh[facility]09-13-2022 Miscellaneous Notes* Telephone Encounter - Karson Johansen LPN - 01/20/2022 1:15 PM EDT TC to pt, notified of results/provider instructions. Pt will schedule PSG while in for appt tomorrow. Karson Johansen LPN * Telephone Encounter - Arsh Polk MD - 01/20/2022 12:22 PM EDT Shows severe sleep apnea. Is enough that they feel we need to do an inhouse titration.please set up documented in this encounterCh[facility]08-04-2022 History of Present illness Narrative* RT Mary(R) - 12/11/2021 11:00 AM EDT Radiology Service Progress Note PATIENT NAME: Axel Serrano DATE OF SERVICE: December 11, 2021 TIME: 2:23 PM PATIENT IDENTITY VERIFICATION COMPLETED USING TWO (2) IDENTIFIERS: Name and Date of confirmedby patient verbally. FALL SCREENING: Has the patient had 2 falls in the last year or 1 fall with injury or currently using an Ambulatory Assistive Device (Walker, Cane, Wheelchair, Crutches, etc.)? No PATIENT GENDER DATA: Male PATIENT RELEVANT IMPLANT DATA REVIEWED: Yes RADIOLOGY DEPARTMENT: CT; Exam(s) Completed: Abdomen/Pelvis PERIPHERAL IV DATA: Not applicable SIGNED BY: RT Sharan(R) December 11, 2021 2:23 PM documented in this encounterCh[facility]08-03-2022 History of Present illness Narrative* Arsh Polk MD - 12/10/2021 11:15 AM EDT Patient presents with: Follow Up: review labs HPI: Patient presents today for office visit for follow up. See last ov. Had refused egd and colonoscopy when recommended. They had issues with his sleep study. Trying again soon. He did finally have a colonoscopy. He sees Dr. Cano's office again. No bloody or black stools. Dark from iron Discussed that they should see if they want to do an egd. No dysphagia. No heartburn. He is back on his lipitor. No new myalgias. We discussed that in addition to an egd, he consider seeing hematology. He will take it "one step at ta time." Still fatigued. Remains on b12 and iron. His anemia dates back about 7 years when he was diagnosed with b12 deficiency. Has actually been stable on oral b12. Used to be on shots had egd and colonoscopy initially andhas been stable. He just underwent another colonoscopy. Awaiting sleep study. He did remotely have mld subcm lymphadenopathy but was unchanged after recheck over several years. He had declined further follow up at that time. Admits to depression. Frustrated at not being able to do as much. Offered repeat ct and or hematology work up. Offered meds or counseling-"not ready"-"I am old school." See previous ov: Accompanied by his today. Recently saw cardiology. They did an echo They wanted him to let us know he is anemic. Which we have already been dealing with. No gi issues. Stopped lipitor and iron on his own. Will resume iron Willing to retry lipitor at a lower dose. No chest pain No new shortness of breath. They did adjust lasix recently for three days. Now dong better. Not checking sugars a1c is stable. Has some fatigue. Says its due to " being 80." Does admit to some depression occasionally but does not want it treated. Says he is taking b12 Back still is an issue. Pain management says they cannot help him. Does snore. reports he stops breathing. Has fatigue. Component Latest Ref Rng & Units 12/02/2021 WBC 3.70 - 11.00 k/uL 10.42 RBC 4.20 - 6.00 m/uL 3.92 (L) Hemoglobin 13.0 - 17.0 g/dL 11.6 (L) Hematocrit 39.0 - 51.0 % 35.1 (L) MCV 80.0 - 100.0 fL 89.5 MCH 26.0 - 34.0 pg 29.6 MCHC 30.5 - 36.0 g/dL 33.0 RDW-CV 11.5 - 15.0 % 13.7 Platelet Count 150 - 400 k/uL 186 MPV 9.0 - 12.7 fL 10.9 Neut% % 74.8 Abs Neut (ANC) 1.45 - 7.50 k/uL 7.79 (H) Lymph% % 15.6 Abs Lymph 1.00 - 4.00 k/uL 1.63 Camp% % 6.6 Abs Camp <0.87 k/uL 0.69 Eosin% % 2.0 Abs Eosin <0.46 k/uL 0.21 Baso% % 0.3 Abs Baso <0.11 k/uL 0.03 Immature Gran % % 0.7 IMMATURE GRANS (ABS) <0.10 k/uL 0.07 NRBC /100 WBC 0.0 Absolute nRBC <0.01 k/uL <0.01 DTYPE Auto Cholesterol, Total <200 mg/dL 113 Triglyceride <150 mg/dL 102 HDL Cholesterol >39 mg/dL 46 Non HDL Cholesterol <130 mg/dL 67 Fasting Time hrs 12 VLDL Cholesterol <30 mg/dL 20 TC:HDL Ratio <5.10 2.46 LDL Cholesterol <100 mg/dL 47 LDL:HDL Ratio <2.54 1.02 Albumin 3.9 - 4.9 g/dL 3.6 (L) Bilirubin, Total 0.2 - 1.3 mg/dL 0.6 Bilirubin, Conjug <0.2 mg/dL <0.2 Alkaline Phosphatase 38 - 113 U/L 35 (L) AST 14 - 40 U/L 10 (L) ALT 10 - 54 U/L 8 (L) Protein, Total 6.3 - 8.0 g/dL 6.4 Iron 41 - 186 ug/dL 59 TIBC 232 - 386 ug/dL 275 Transferrin Saturation 15.0 - 57.0 % 21.5 Vitamin B12 232-1,245 pg/mL 990 TSH 0.270 - 4.200 mIU/L 4.090 Folate >4.7 ng/mL >20.0 MEDICATIONS: Current Outpatient Medications Medication Sig metFORMIN ER (GLUCOPHAGE XR) 500 mg 24 hr tablet Take 4 tablets by mouth daily with breakfast. folic acid 1 mg tablet Take 1 tablet by mouth once daily. ferrous gluconate 256 mg (28 mg iron) tab Take 1 tablet by mouth once daily. atorvastatin (LIPITOR) 40 mg tablet Take 1 tablet by mouth daily at bedtime. For cholesterol. gabapentin (NEURONTIN) 300 mg capsule Take 1 capsule by mouth twice daily. metoprolol tartrate, short acting, (LOPRESSOR) 50 mg tablet Take 1 tablet by mouth twice daily. cholecalciferol, Vitamin D3, (VITAMIN D3) 1,250 mcg (50,000 unit) cap capsule Take 1 capsule by mouth one time a week. tamsulosin (FLOMAX) 0.4 mg TAKE ONE CAPSULE BY MOUTH DAILY AT BEDTIME glimepiride (AMARYL) 4 mg tablet Take 1 tablet by mouth twice daily with meals. SITagliptin (JANUVIA) 100 mg tablet Take 1 tablet by mouth once daily. furosemide (LASIX) 40 mg tablet Take 40 mg by mouth once daily. cyanocobalamin (VITAMIN B-12) 1,000 mcg tab Take 1 tablet by mouth once daily. aspirin, enteric coated (ASPIRIN, ENTERIC COATED) 81 mg EC tablet Take 81 mg by mouth once daily. Saw Misenheimer 160 mg capsule Take 160 mg by mouth once daily. blood sugar diagnostic (BLOOD GLUCOSE TEST) test strip Test blood sugar(s) 1 times daily. Dx: Type 1 DM - Controlled E10.9 Insulin: No (Patient not taking: Reported on 07/22/2021 ) LANCETS USE DIRECTED (Patient not taking: Reported on 07/22/2021) No current facility-administered medications for this visit. 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 Splenic artery aneurysm (HCC) repeat scans showed no change/not identified PAST SURGICAL HISTORY Procedure Laterality Date CHOLECYSTECTOMY COLONOSCOPY FLX DX W/COLLJ SPEC WHEN PFRMD 07/13/2005 COLONOSCOPY FLX DX W/COLLJ SPEC WHEN PFRMD 03/11/2015 Colonoscopy COLONOSCOPY SCREENING 11/12/2021 Dr Cano no repeat due to age ESOPHAGOGASTRODUODENOSCOPY TRANSORAL DIAGNOSTIC 03/11/2015 EGD FAMILY HISTORY Problem Relation Age of Onset Coronary Artery Disease Mother Coronary Artery Disease Father Coronary Artery Disease Brother Heart disease Brother Heart disease Maternal Grandmother Heart disease Maternal Grandfather Heart disease Paternal Grandmother Heart disease Paternal Grandfather Social History Tobacco Use Smoking status: Former Smoker Years: 40.00 Types: Cigars Quit date: 11/27/2003 Years since quittin.0 Smokeless tobacco: Never Used Tobacco comment: cigars-6 a day Vaping Use Vaping Use: Never used Substance Use Topics Alcohol use: No Drug use: No Reviewed current medications, allergies, past medical history, surgical history, family history andsocial history today. REVIEW OF SYSTEMS All other reviewed and negative other than HPI. VITALS: BP 138/80 Pulse 76 Resp 16 Wt 135.6 kg (299 lb) SpO2 98% BMI 42.90 kg/m Last 4 Encounter Wt Readings: Date: Wt: 12/10/2021 135.6 kg (299 lb) 11/07/2021 137 kg (302 lb) 10/28/2021 137 kg (302 lb) 07/30/2021 131.5 kg (290 lb) PHYSICAL EXAMINATION: General appearance: Well appearing, alert, in no acute distress, well-hydrated, well nourished. Skin: Skin color, texture, turgor normal, no suspicious rashes or lesions Head: Normocephalic, no masses, lesions, tenderness or abnormalities Neck: Supple, no adenopathy; thyroid symmetric, normal size, no bruits Lungs: Lungs clear to auscultation. No wheezing, rhonchi, rales Heart: RRR without murmur, gallop, or rubs. No ectopy Abdomen: Normal abdominal exam, Abdomen soft, non-tender. Bowel sounds normal. No masses, organomegaly Extremities: No deformities, edema, skin discoloration, clubbing or cyanosis. Good capillary refill. ASSESSMENT/PLAN: 1. Fatigue, unspecified type - ICD9: 780.79, ICD10: R53.83 (primary diagnosis) - recheck ct , hold on contrast due to renal function Consider hematology recheck. He declines for now. Consider meds for depression Await sleep study. - CT ABD/PEL W IVCON - ENTERIC CONTRAST (RADIOLOGY PROCEDURE) 2. Diabetic polyneuropathy associated with type 2 diabetes mellitus (HCC) - ICD9: 250.60, 357.2, ICD10: E11.42 - stable. 3. Hypertensive kidney disease with stage 3 chronic kidney disease, unspecified whether stage 3a or3b CKD (HCC) - ICD9: 403.90, 585.3, ICD10: I12.9, N18.30 - good control - Continue current medication(s) - Goal of BP <130/80 4. Mixed hyperlipidemia - ICD9: 272.2, ICD10: E78.2 - good control - Continue current medication. 5. Aortic valve stenosis, etiology of cardiac valve disease unspecified - ICD9: 424.1, ICD10: I35.0 - per cardiology 6. Anemia due to folic acid deficiency, unspecified deficiency type - ICD9: 281.2, ICD10: D52.9 - stable. 7. Anemia due to vitamin B12 deficiency, unspecified B12 deficiency type - ICD9: 281.1, ICD10: D51.9 - stable. 8. Type 2 diabetes mellitus with stage 3 chronic kidney disease, without long- term current use of insulin, 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) - ICD9: 250.40, 585.3, ICD10: E11.22, N18.30 9. 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) - ICD9: 202.80, ICD10: C85.90 - is remote. As above. Declines hematology referral. Recheck ct, he had previous declined further follow up. Agrees today - CT ABD/PEL WO IVCON - ENTERIC CONTRAST (RADIOLOGY PROCEDURE) 10. Lymphadenopathy, abdominal - ICD9: 785.6, ICD10: R59. - CT ABD/PEL WO IVCON - ENTERIC CONTRAST (RADIOLOGY PROCEDURE) 11. Localized enlarged lymph nodes - ICD9: 785.6, ICD10: R59.0 - CT ABD/PEL WO IVCON - ENTERIC CONTRAST (RADIOLOGY PROCEDURE) Arsh Polk RTO in six weeks and prn. documented in this encounterCh[facility]08-01-2022 Miscellaneous Notes* Telephone Encounter - Karson Johansen LPN - 12/08/2021 10:44 AM EDT Patient phones requesting refills as follows: Pending Prescriptions Disp Refills METFORMIN ER 500 MG TABLET,EXTENDED RELEASE 24 HR 120 tablet 11 Sig: Take 4 tablets by mouth daily with breakfast. OSMANI: No BLAKE 11/07/21 NOV 12/10/21 Please review and advise. Karson Johansen LPN documented in this encounterCh[facility]ic[facility]07-26-2022 History of Present illness Narrative* Brynn Arroyo - 12/02/2021 12:36 PM EDT Sleep Study Check-In Documentation Date: December 02, 2021 Name: Axel Serrano Comments: HST was returned in work order, questionnaire completed. Patient failed sleep study. Called & left message to see if they would like to reschedule to try again. Brynn Arroyo * Bambi Baptiste - 11/27/2021 1:46 PM EDT [facility]# [id number] , date shipped out 11/27 Tracking mailout: [id number] Tracking return: [phone] * Ha Samuel III, PhD - 11/19/2021 12:25 PM EDT November 19, 2021 Standing PSG Orders signed in the last 90 days None Future PSG Orders signed in the last 90 days Ordered Auth. provider HOME SLEEP APNEA TEST (HSAT) [[id number]] 11/07/21 Arsh Polk MD Assoc. diagnoses: IRINEO (obstructive sleep apnea) [G47.33] Q: Indications: A: Obstructive sleep apnea Q: STOP-BANG conditions - Select All That Apply: A: GENDER = male A2: BMI > 35 kg/m2 A3: AGE > 50 A4: high blood PRESSURE A5: SNORING that is loud or disruptive A6: TIREDNESS, fatigue or sleepiness during the day A7: OBSERVED sleep apnea Q: Current use of supplemental oxygen during sleep period?: A: No All Prior Sleep Studies (past 365 days) Some values may be hidden. Unless noted otherwise, only the newest values recorded on each date aredisplayed. 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 Indications for study: IRINEO suspected with comorbid medical or sleep disorders: Morbid obesity (BMI>40 kg/m2) Sleep study to be performed: Home Sleep Apnea Test (HSAT) Special instructions: None-follow laboratory protocol [facility] Staff Note: I have read the above protocol, edited as needed, and agree to the plan. Ha Samuel III, PhD 3:54 PM, 11/19/2021 * Martha Chandler - 11/18/2021 1:46 PM EDT November 18, 2021 An order has been received for Home Sleep Apnea Test (HSAT) from [facility]. [facility] Staff. Visit prep complete. Comments :No The sleep study is scheduled for . Insurance: Payor: MEDICARE / Plan: MEDICARE A AND B / Product Type: Medicare / Payor/Plan Subscr Sex Relation Sub. Ins. ID Effective Group Num 1. MEDICARE - ME* RAMÍREZ SERRANO* 1940 Male Self [id number] 04/09/[address] MMO - MMO MED* RAMÍREZ SERRANO* 1940 Male Self [id number] 06/10/19 [address] Martha Chandler documented in this encounterCh[facility]07-01-[facility]22 Miscellaneous Notes* Telephone Encounter - Lizzette Restrepo LPN - 11/07/2021 11:29 AM EDT Notified pharmacy. * Telephone Encounter - Arsh Polk MD - 11/07/2021 11:06 AM EDT That is fine. * Telephone Encounter - Sumit Carlson RN - 11/07/2021 10:57 AM EDT Aundrea from [facility] called in and reports provider ordered ferrous gluconate with 28 mg of iron. She states they can only get it with 27 mg of iron in it. She was calling to ask if this was ok with the provider. Please notify pharmacy. documented in this encounterChillic[facility]07-01-2022 History of Present illness Narrative* Arsh Polk MD - 11/07/2021 10:00 AM EDT Patient presents with: Follow Up: 3 month follow up HPI: Patient presents today for office visit for follow up. Accompanied by his today. Recently saw cardiology. They did an echo They wanted him to let us know he is anemic. Which we have already been dealing with. No gi issues. Stopped lipitor and iron on his own. Will resume iron Willing to retry lipitor at a lower dose. No chest pain No new shortness of breath. They did adjust lasix recently for three days. Now dong better. Not checking sugars a1c is stable. Has some fatigue. Says its due to " being 80." Does admit to some depression occasionally but does not want it treated. Says he is taking b12 Back still is an issue. Pain management says they cannot help him. Does snore. reports he stops breathing. Has fatigue. See previous ov: Discussed senile purpura. Having continued issues with his lower back. Has done pain management and chiropractic Had RFA They had recommended physical therapy. In lower back on his right. Has had issues for 40 years. Recently had an MRI per Dr. Nielson Already have appt for therapy. Just need order. Still with alternating bowel habits. We had wanted to do scopes before due to his anemia. Had been cleared by cardiology but he had declined scopes when gi attempted to schedule. Our providers would have to take him to outside facility. He wanted to see someone in town. No current chest pain No shortness of breath. No edema. No dizziness. Still seeing Dr. Rico. See previous ov: Anemia: saw Sylvia Rebolledo. He is to have colonoscopy once cardiac clearance is completed. Stomach is alittle better. He is seeing Dr. Herndon in the next month. Need to follow his anemia. No bloody bowels or black stools. Still some bowel changes. HTN: Patient is compliant with meds Yes Denies side effects: Yes. Chest pain: No. Dyspnea: No. Edema: No. Palpitations: No. Syncope: No. Headache: No. Dizziness: No. DM: Reports overall feeling well. Medication side effects: No. Home sugar check frequency/results:not checking. Hypoglycemic spells: No. Unexpected weight loss: No. Polyuria, polydipsia: No. Component Latest Ref Rng & Units 10/28/2021 WBC 3.70 - 11.00 k/uL 9.06 RBC 4.20 - 6.00 m/uL 3.78 (L) Hemoglobin 13.0 - 17.0 g/dL 11.3 (L) Hematocrit 39.0 - 51.0 % 34.0 (L) MCV 80.0 - 100.0 fL 89.9 MCH 26.0 - 34.0 pg 29.9 MCHC 30.5 - 36.0 g/dL 33.2 RDW-CV 11.5 - 15.0 % 14.2 Platelet Count 150 - 400 k/uL 190 MPV 9.0 - 12.7 fL 11.1 Neut% % 73.2 Abs Neut (ANC) 1.45 - 7.50 k/uL 6.64 Lymph% % 15.9 Abs Lymph 1.00 - 4.00 k/uL 1.44 Camp% % 7.1 Abs Camp <0.87 k/uL 0.64 Eosin% % 2.2 Abs Eosin <0.46 k/uL 0.20 Baso% % 0.8 Abs Baso <0.11 k/uL 0.07 Immature Gran % % 0.8 IMMATURE GRANS (ABS) <0.10 k/uL 0.07 NRBC /100 WBC 0.0 Absolute nRBC <0.01 k/uL <0.01 DTYPE Auto GLUCOSE UA (POCT) Negative mg/dL Negative BILIRUBIN UA (POCT) Negative Negative KETONE UA (POCT) Negative mg/dL Negative SPECIFIC GRAVITY UA (POCT) 1.005 - 1.030 1.010 HEMOGLOBIN/BLOOD UA (POCT) Negative Negative PH UA (POCT) 4.5 - 8.0 5.5 PROTEIN UA (POCT) Negative mg/dL 30 (A) UROBILINOGEN UA (POCT) Normal E.U./dL 0.2 NITRITE UA (POCT) Negative Negative LEUKOCYTES UA (POCT) Negative Small (A) COLOR UA (POCT) Light yellow CLARITY UA (POCT) Clear Glucose 74 - 99 mg/dL 163 (H) BUN 9 - 24 mg/dL 21 Creatinine 0.73 - 1.22 mg/dL 1.61 (H) Sodium 136 - 144 mmol/L 138 Potassium 3.7 - 5.1 mmol/L 4.5 Chloride 97 - 105 mmol/L 101 CO2 22 - 30 mmol/L 25 Anion Gap 9 - 18 mmol/L 12 Calcium 8.5 - 10.2 mg/dL 9.6 eGFR >=60 mL/min/1.73m 43 (L) Cholesterol, Total <200 mg/dL 188 Triglyceride <150 mg/dL 118 HDL Cholesterol >39 mg/dL 45 Non HDL Cholesterol <130 mg/dL 143 (H) Fasting Time hrs 16 VLDL Cholesterol <30 mg/dL 24 TC:HDL Ratio <5.10 4.18 LDL Cholesterol <100 mg/dL 119 (H) LDL:HDL Ratio <2.54 2.64 (H) Creatinine, Ur Random (UCRR) 20.0 - 300.0 mg/dL 64.0 Albumin, Urine Random mg/L 152.2 Albumin/Creat Ratio <30 mg/g 238 (H) Hemoglobin A1C 4.3 - 5.6 % 7.3 (H) Estimated Average Glucose mg/dL 163 MEDICATIONS: Current Outpatient Medications Medication Sig gabapentin (NEURONTIN) 300 mg capsule Take 1 capsule by mouth twice daily. metoprolol tartrate, short acting, (LOPRESSOR) 50 mg tablet Take 1 tablet by mouth twice daily. cholecalciferol, Vitamin D3, (VITAMIN D3) 1,250 mcg (50,000 unit) cap capsule Take 1 capsule by mouth one time a week. tamsulosin (FLOMAX) 0.4 mg TAKE ONE CAPSULE BY MOUTH DAILY AT BEDTIME glimepiride (AMARYL) 4 mg tablet Take 1 tablet by mouth twice daily with meals. SITagliptin (JANUVIA) 100 mg tablet Take 1 tablet by mouth once daily. metFORMIN ER (GLUCOPHAGE XR) 500 mg 24 hr tablet Take 4 tablets by mouth daily with breakfast. folic acid 1 mg tablet Take 1 tablet by mouth once daily. furosemide (LASIX) 40 mg tablet Take 40 mg by mouth once daily. cyanocobalamin (VITAMIN B-12) 1,000 mcg tab Take 1 tablet by mouth once daily. aspirin, enteric coated (ASPIRIN, ENTERIC COATED) 81 mg EC tablet Take 81 mg by mouth once daily. Saw Misenheimer 160 mg capsule Take 160 mg by mouth once daily. ferrous gluconate 256 mg (28 mg iron) tab 256 mg once daily. (Patient not taking: Reported on 10/28/2021 ) atorvastatin (LIPITOR) 40 mg tablet Take 2 tablets by mouth daily at bedtime. For cholesterol. (Patient not taking: Reported on 07/22/2021 ) blood sugar diagnostic (BLOOD GLUCOSE TEST) test strip Test blood sugar(s) 1 times daily. Dx: Type 1 DM - Controlled E10.9 Insulin: No (Patient not taking: Reported on 07/22/2021 ) LANCETS USE DIRECTED (Patient not taking: Reported on 07/22/2021) No current facility-administered medications for this visit. 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 Splenic artery aneurysm (HCC) repeat scans showed no change/not identified PAST SURGICAL HISTORY Procedure Laterality Date CHOLECYSTECTOMY COLONOSCOPY FLX DX W/COLLJ SPEC WHEN PFRMD 07/13/05 COLONOSCOPY FLX DX W/COLLJ SPEC WHEN PFRMD 03/11/15 Colonoscopy ESOPHAGOGASTRODUODENOSCOPY TRANSORAL DIAGNOSTIC 03/11/15 EGD FAMILY HISTORY Problem Relation Age of Onset Coronary Artery Disease Mother Coronary Artery Disease Father Coronary Artery Disease Brother Heart disease Brother Heart disease Maternal Grandmother Heart disease Maternal Grandfather Heart disease Paternal Grandmother Heart disease Paternal Grandfather Social History Tobacco Use Smoking status: Former Smoker Years: 40.00 Types: Cigars Quit date: 11/27/2003 Years since quittin.9 Smokeless tobacco: Never Used Tobacco comment: cigars-6 a day Vaping Use Vaping Use: Never used Substance Use Topics Alcohol use: No Drug use: No Reviewed current medications, allergies, past medical history, surgical history, family history andsocial history today. REVIEW OF SYSTEMS All other reviewed and negative other than HPI. HEALTH MAINTENANCE: Reviewed health maintenance issues today VITALS: BP 120/62 Pulse 70 Wt (!) 137 kg (302 lb) SpO2 96% BMI 43.33 kg/m Last 4 Encounter Wt Readings: Date: Wt: 10/28/2021 137 kg (302 lb) 07/30/2021 131.5 kg (290 lb) 07/22/2021 128.8 kg (284 lb) 02/14/2021 130.6 kg (288 lb) PHYSICAL EXAMINATION: General appearance: Well appearing, alert, in no acute distress, well-hydrated, well nourished. Skin: Skin color, texture, turgor normal, no suspicious rashes or lesions Head: Normocephalic, no masses, lesions, tenderness or abnormalities Lungs: Lungs clear to auscultation. No wheezing, rhonchi, rales Heart: RRR without murmur, gallop, or rubs. No ectopy Abdomen: Normal abdominal exam, Abdomen soft, non-tender. Bowel sounds normal. No masses, organomegaly Extremities: No deformities, edema, skin discoloration, clubbing or cyanosis. Good capillary refill. Musculoskeletal: No joint swelling, deformity, or tenderness Peripheral pulses: Normal Neuro: Negative. ASSESSMENT/PLAN: 1. Essential hypertension, benign - ICD9: 401.1, ICD10: I10 (primary diagnosis) - good control - Continue current medication(s) - Goal of BP <130/80 2. Mixed hyperlipidemia - ICD9: 272.2, ICD10: E78.2 - good control - Continue current medication. - LIPID PANEL BASIC - HEPATIC FUNCTION PNL 3. Fatigue, unspecified type - ICD9: 780.79, ICD10: R53.83 - follow labs. Get sleep study. Follow with gi for his colonoscopy. - TSH BLD 4. Anemia, unspecified type - ICD9: 285.9, ICD10: D64.9 - as above. Getting scoped next week. - CBC + DIFF - IRON + TIBC - FOLATE SERUM 5. Vitamin B12 deficiency - ICD9: 266.2, ICD10: E53.8 - VITAMIN B12 BLOOD 6. IRINEO (obstructive sleep apnea) - ICD9: 327.23, ICD10: G47.33 - HOME SLEEP APNEA TEST (HSAT) 7. Diabetic polyneuropathy associated with type 2 diabetes mellitus (HCC) - ICD9: 250.60, 357.2, ICD10: E11.42 Controlled. - Continue current medications 8. Aortic valve stenosis, etiology of cardiac valve disease unspecified - ICD9: 424.1, ICD10: I35.0 - per cardiology 9. Anemia due to folic acid deficiency, unspecified deficiency type - ICD9: 281.2, ICD10: D52.9 10. Anemia due to vitamin B12 deficiency, unspecified B12 deficiency type - ICD9: 281.1, ICD10: D51.9 Arsh Polk RTO in four to six weeks after labs. and prn. documented in this encounterChillic[facility]06-21-2022 History of Present illness Narrative* Darnell Mackey PA-C - 10/28/2021 11:12 AM EDT [facility] ESTABLISHED PATIENT NOTE PATIENT INFO: Axel Serrano PCP: Arsh Polk MD UROLOGY DIAGNOSES: 1. Phimosis - ICD9: 605, ICD10: N47.1 CHIEF COMPLAINT: BPH, Phimosis HPI: Patient returns for follow up after trying Lotrisone and foreskin stretching for 1 month, on exam today He has very little progress with actually loosening the phimosis and I have recommended he discuss possible circumcision with Urology surgeon, he would like to think about it. And let me know. 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 metoprolol tartrate, short acting, (LOPRESSOR) 50 mg tablet Take 1 tablet by mouth twice daily. cholecalciferol, Vitamin D3, (VITAMIN D3) 1,250 mcg (50,000 unit) cap capsule Take 1 capsule by mouth one time a week. tamsulosin (FLOMAX) 0.4 mg TAKE ONE CAPSULE BY MOUTH DAILY AT BEDTIME glimepiride (AMARYL) 4 mg tablet Take 1 tablet by mouth twice daily with meals. SITagliptin (JANUVIA) 100 mg tablet Take 1 tablet by mouth once daily. metFORMIN ER (GLUCOPHAGE XR) 500 mg 24 hr tablet Take 4 tablets by mouth daily with breakfast. folic acid 1 mg tablet Take 1 tablet by mouth once daily. furosemide (LASIX) 40 mg tablet Take 40 mg by mouth once daily. lisinopril (ZESTRIL, PRINIVIL) 5 mg tablet Take 2.5 mg by mouth once daily. aspirin, enteric coated (ASPIRIN, ENTERIC COATED) 81 mg EC tablet Take 81 mg by mouth once daily. Saw Misenheimer 160 mg capsule Take 160 mg by mouth once daily. albuterol HFA (PROVENTIL HFA, VENTOLIN HFA) 90 mcg/actuation inhaler Inhale 2 Puffs as instructed every 4 hours as needed for wheezing/shortness of breath. (Patient not taking: Reported on 10/28/2021 ) ferrous gluconate 256 mg (28 mg iron) tab 256 mg once daily. (Patient not taking: Reported on 10/28/2021 ) sodium sulfate-potassium sulfate-magnesium sulfate (SUPREP BOWEL PREP KIT) 17.5-3.13-1.6 gram oral liquid Please follow instructions provided by doctors office (Patient not taking: Reported on 07/22/2021 ) atorvastatin (LIPITOR) 40 mg tablet Take 2 tablets by mouth daily at bedtime. For cholesterol. (Patient not taking: Reported on 07/22/2021 ) cyanocobalamin (VITAMIN B-12) 1,000 mcg tab Take 1 tablet by mouth once daily. (Patient not taking:Reported on 10/28/2021 ) blood sugar diagnostic (BLOOD GLUCOSE TEST) test strip Test blood sugar(s) 1 times daily. Dx: Type 1 DM - Controlled E10.9 Insulin: No (Patient not taking: Reported on 07/22/2021 ) LANCETS USE DIRECTED (Patient not taking: Reported on 07/22/2021) No current facility-administered medications for this visit. PVR - 0 ml PHYSICAL EXAM: BP 118/82 (BP Site: Right Arm, BP Position: Sitting, BP Cuff Size: Large Adult) Pulse 66 Temp 36.2 C (97.2 F) (Temporal) Resp 14 Ht 177.8 cm (5' 10") Wt (!) 137 kg (302 lb) SpO2 98% BMI43.33 kg/m Body mass index is 43.33 kg/m . General Appearance/ Constitutional: Well developed, well nourished, and in no apparent distress Penis- Tight phimotic Ring cannot visualize the glans at all, no signs of infection seen DIAGNOSES: 1. Phimosis - ICD9: 605, ICD10: N47.1 Phimosis IMPRESSION/PLAN: > BPH w LUTS > Proscar refilled > Phimosis - with tight ring > Lotrisone twice per day x 1-2 months > if not improved or tearing of foreskin would require circumcision > Recommending Circumcision JUAN Garcia MT, PA-C * Jackie Hardy LPN - 10/28/2021 11:08 AM EDT CC Post Void Residual HPI: Axel Serrano is a 81 year old male. The patient is here now for an appointment with JUAN Garcia MT, PA-COV. Procedure: Explained procedure to patient and verbalizes understanding. Performed a PVR. Patient urinated and instructed to empty bladder as much as possible just prior to having PVR done using bladder ultrasound scanner. Results of scan: 0 mL The patient tolerated the procedure well. Plan: Appointment with Darnell. documented in this encounterChillicothe [facility]06-19-2022 Miscellaneous Notes* Telephone Encounter - Shraddha Calabrese LPN - 10/26/2021 12:59 PM EDT Patient has been identified by name and date of : Yes Pending Prescriptions Disp Refills GABAPENTIN 300 MG CAPSULE 60 capsule 11 Sig: Take 1 capsule by mouth twice daily. OSMANI: No Gabapentin 09/30/2020 qty 60 w/ 11 r/f Last OV 07/30/2021 Next OV 11/07/2021 Labs 10/22/2021 RX INSTRUCTIONS: Shraddha Calabrese LPN documented in this encounterChillicothe [facility]04-25-2022 Miscellaneous Notes* Telephone Encounter - Karson Sparksdenys BROWNE - 09/01/2021 10:54 AM EDT Patient phones requesting refills as follows: Pending Prescriptions Disp Refills METOPROLOL TARTRATE 50 MG TABLET 60 tablet 5 Sig: Take 1 tablet by mouth twice daily. OSMANI: No BLAKE 07/30/21 NOV 11/07/21 Please review and advise. Karson Sparksdenys BROWNE documented in this encounterChillicothe [facility] Center10-08-2021 History of Present illness Narrative* Michelle Latham RT(R) - 02/14/2021 11:10 AM EDT Radiology Service Progress Note PATIENT NAME: Axel Serrano DATE OF SERVICE: February 14, 2021 TIME: 11:08 AM PATIENT IDENTITY VERIFICATION COMPLETED USING TWO (2) IDENTIFIERS: Name and Date of confirmedby patient verbally. FALL SCREENING: Has the patient had 2 falls in the last year or 1 fall with injury or currently using an Ambulatory Assistive Device (Walker, Cane, Wheelchair, Crutches, etc.)? No PATIENT GENDER DATA: Male PATIENT RELEVANT IMPLANT DATA REVIEWED: Not Applicable RADIOLOGY DEPARTMENT: General X-ray: Exam(s) Completed: Chest X-Ray PERIPHERAL IV DATA: Not applicable SIGNED BY: RT Harriet(R) February 14, 2021 11:08 AM documented in this encounterChillicothe [facility]07-01-2021 History of Present illness Narrative* Michelle Latham RT(R) - 11/07/2020 11:40 AM EDT Radiology Service Progress Note PATIENT NAME: Axel Serrano DATE OF SERVICE: November 07, 2020 TIME: 12:01 PM PATIENT IDENTITY VERIFICATION COMPLETED USING TWO (2) IDENTIFIERS: Name and Date of confirmedby patient verbally. FALL SCREENING: Has the patient had 2 falls in the last year or 1 fall with injury or currently using an Ambulatory Assistive Device (Walker, Cane, Wheelchair, Crutches, etc.)? No PATIENT GENDER DATA: Male PATIENT RELEVANT IMPLANT DATA REVIEWED: Not Applicable RADIOLOGY DEPARTMENT: General X-ray: Exam(s) Completed: Chest X-Ray Abdomen X-Ray: Abdomen PERIPHERAL IV DATA: Not applicable SIGNED BY: RT Harriet(R) November 07, 2020 12:01 PM documented in this encounterChillicothe [facility]06-10-2021 History of Present illness Narrative* Chelsy Granados RN - 10/17/2020 3:00 PM EDT Discharge instructions gone over with patient and patient's . No questions at this time. Peripheral IV removed. Valve card given to patient. Patient discharged home to be driven by family friend. documented in this encounterSCOS[facility] Work Phone: 1(661) 553-735106-10-2021 Hospital Discharge instructions* Instructions* Alva Lara APRN - BRIAN - 10/17/2020 - Please call the [facility] with any questions: [phone] -You will have have the following follow up appointments in the [facility]: one week post procedure, one month post procedure with echocardiogram, one year post procedure with echocardiogram. -Wash groin/wrist incision with soap and water, pat dry. Apply bandage for 5 days. If you have a chest incision, you will receive specific instructions from your surgeon regarding care of the incision. -Check incision every day. If you see any changes in the way it looks, call the [facility] at . Look for any of these problems: redness and warmth that does not go away, yellow or green drainage from the wound, fever and chills, numbness in your legs, pain that is getting worse. -It is normal to have a bruise or soft lump in the groin. This will get smaller and go away with time -Do not drive until after your first Heart Valve Clinic Appointment. -Do not lift, push, or pull anything weighing more than 5 lbs or more for one week if you had the procedure through your groin and 4 weeks if you had the procedure through the chest -We strongly encourage a regular exercise program such as cardiac rehabilitation once you have beencleared to resume normal activity. -Eating well is important for your recovery. Eat nutritious foods every day. Please follow a cardiac, 2 gram sodium diet. Please continue to follow any other dietary recommendations provided by your health care provider prior to your valve surgery. -From now on, tell your doctors and health care providers about your heart valve implantation (prosthetic heart valve ). -If you go to the emergency room or are admitted to the hospital during the first year after your procedure, please call the [facility] at -If you have major dental work or other invasive medical procedures (like surgery) you may need to take antibiotics before the dental work or the procedure. Please discuss with your health care provider. - You will need to take blood thinning medications(antiplatelet) after your valve procedure. Generally, this includes aspirin and clopidogrel. The clopidogrel will be for 3 months and the aspirin will be indefinite. documented in this encounterSUMMA Work Phone: 1(114) 227-128006-09-2021 Note Attestation signed by Curry Shore MD at 10/22/2020 9:34 PM I, Dr. Shore, saw and evaluated the patient. I personally obtained the gant and critical portions of the history and physical exam. I reviewed the chart and discussed the patient with the Nurse Practitioner. I agree with the Nurse Practitioner's medical decision making. I spoke with Axel Serrano this morning. he tells me that nothing has changed clinically since our last office visit. We will proceed with the planned procedure. Name: Axel Serrano Date of : 1940 Date of Admission: 10/16/2020 Date of Discharge: 10/17/2020 Admitting physician: Curry Shore MD Discharge Attending: ALTAGRACIA Agustin CNP, Dr. BittenbenderMD Primary Care Physician: Arsh Polk MD Reason for Admission: Severe Symptomatic Aortic Stenosis Consultants: cardiac rehab HOSPITAL ADMISSION PROBLEM LIST: Patient Active Problem List Diagnosis ? Nonrheumatic aortic valve stenosis ? Coronary artery disease involving [place] coronary artery of [place] heart without angina pectoris ? Essential hypertension ? LV dysfunction ? Severe aortic stenosis The patient feels well. Denies any chest pain, dyspnea, palpitations, bleeding, groin or wrist complaints. He was ambulatory with RN. He wants to go home Review of Systems Review of Systems Constitutional: Negative for chills, fatigue and fever. HENT: Negative for dental problem, ear discharge, ear pain, mouth sores and nosebleeds. Eyes: Negative for discharge and itching. Respiratory: Negative for cough and shortness of breath. Cardiovascular: Positive for leg swelling. Negative for chest pain and palpitations. Gastrointestinal: Negative for abdominal pain and blood in stool. Endocrine: Negative for cold intolerance and heat intolerance. Genitourinary: Negative for dysuria, frequency and hematuria. Musculoskeletal: Negative for gait problem and joint swelling. Skin: Negative for rash and wound. Neurological: Negative for dizziness, syncope and weakness. Psychiatric/Behavioral: Negative for agitation and confusion. Physical Exam Physical Exam Vitals reviewed. Constitutional: General: He is not in acute distress. Appearance: Normal appearance. He is well-developed. He is not diaphoretic. HENT: Head: Normocephalic and atraumatic. Mouth/Throat: Pharynx: No oropharyngeal exudate. Eyes: General: No scleral icterus. Right eye: No discharge. Left eye: No discharge. Pupils: Pupils are equal, round, and reactive to light. Neck: Thyroid: No thyromegaly. Vascular: No JVD. Cardiovascular: Rate and Rhythm: Normal rate and regular rhythm. Chest Wall: PMI is not displaced. Pulses: Normal pulses. Heart sounds: Normal heart sounds. No murmur heard. No gallop. Pulmonary: Effort: No accessory muscle usage or respiratory distress. Breath sounds: Normal breath sounds. No wheezing or rales. Abdominal: General: Bowel sounds are normal. There is no distension or abdominal bruit. Palpations: Abdomen is soft. There is no shifting dullness or hepatomegaly. Tenderness: There is no abdominal tenderness. Musculoskeletal: General: No deformity. Normal range of motion. Cervical back: Normal range of motion. Right lower leg: Edema present. Left lower leg: Edema present. Skin: General: Skin is warm and dry. Findings: No rash. Comments: Right groin soft without bleeding or hematoma Neurological: Mental Status: He is alert and oriented to person, place, and time. Cranial Nerves: No cranial nerve deficit. Sensory: No sensory deficit. Psychiatric: Thought Content: Thought content normal. Procedures: Transfemoral transcatheter AVR with mmSapien S3 valve under moderate sedation Transthoracic echocardiogram HOSPITAL COURSE : The patient was admitted to the hospital for elective TAVR on 10/16/20 . A 29 mm Tona S3 valve was implanted. The patient returned to [facility] for recovery. Vital signs and labs were stable. There were no groin complications. The patient was ambulatory the evening of the procedure. Post procedure echocardiogram demonstrated : Left ventricle: Systolic function is at the lower limits of normal by visual assessment. The estimated ejection fraction is 50%. 2. Pre procedure: Severe aortic stenosis. Mild aortic regurgitation. The mean aortic valve systolic gradient is 37 mm Hg. 3. Post procedure: The mean aortic valve systolic gradient is 5 mm Hg. 4. Successful TAVR. The trileaflet bioprosthesis is well-seated with normal leaflet excursion. There is trivial perivalvular regurgitation. Patient education including SBE prophylaxis, activity, access site care, follow up appointments, and medications was provided. The p (more content not included)...[facility]10-19-2017 History of Past illness Narrative* Problem Noted Date Resolved Date Vitamin B12 deficiency 02/25/2017 3 Bladder stone 08/19/2015 02/25/2017 Hydronephrosis 08/19/2015 05/29/2022 Kidney stone 08/19/2015 02/25/2017 Diabetic neuropathy 04/03/2014 12/18/2014 Abdominal or pelvic swelling , mass, or lump, other specified site 05/24/2006 02/25/2017 DIABETES MELLITUS TYPE II-UNCOMPL 06/11/2005 12/18/2014 Other primary cardiomyopathies 06/11/2005 0 09/16/2017 documented as of this encounter (statuses as of 05/29/2022) [facility]10-[facility]-2017 History of Past illness Narrative* Problem Noted Date Resolved Date Vitamin B12 deficiency 02/25/2017 3 Bladder stone 08/19/2015 02/25/2017 Hydronephrosis 08/19/2015 05/29/2022 Kidney stone 08/19/2015 02/25/2017 Diabetic neuropathy 04/03/2014 12/18/2014 Abdominal or pelvic swelling , mass, or lump, other specified site 05/24/2006 02/25/2017 DIABETES MELLITUS TYPE II-UNCOMPL 06/11/2005 12/18/2014 Other primary cardiomyopathies 06/11/2005 0 09/16/2017 documented as of this encounter (statuses as of 06/22/2022) [facility] History of Past illness Narrative* Problem Noted Date Resolved Date Vitamin B12 deficiency 02/25/2017 3 Bladder stone 08/19/2015 02/25/2017 Hydronephrosis 08/19/2015 05/29/2022 Kidney stone 08/19/2015 02/25/2017 Diabetic neuropathy 04/03/2014 12/18/2014 Abdominal or pelvic swelling , mass, or lump, other specified site 05/24/2006 02/25/2017 DIABETES MELLITUS TYPE II-UNCOMPL 06/11/2005 12/18/2014 Other primary cardiomyopathies 06/11/2005 0 09/16/2017 documented as of this encounter (statuses as of 06/23/2022) [facility] History of Past illness Narrative* Problem Noted Date Resolved Date Vitamin B12 deficiency 02/25/2017 3 Bladder stone 08/19/2015 02/25/2017 Hydronephrosis 08/19/2015 05/29/2022 Kidney stone 08/19/2015 02/25/2017 Diabetic neuropathy 04/03/2014 12/18/2014 Abdominal or pelvic swelling , mass, or lump, other specified site 05/24/2006 02/25/2017 DIABETES MELLITUS TYPE II-UNCOMPL 06/11/2005 12/18/2014 Other primary cardiomyopathies 06/11/2005 0 09/16/2017 documented as of this encounter (statuses as of 07/09/2022) [facility] History of Past illness Narrative* Problem Noted Date Resolved Date Vitamin B12 deficiency 02/25/2017 3 Bladder stone 08/19/2015 02/25/2017 Hydronephrosis 08/19/2015 05/29/2022 Kidney stone 08/19/2015 02/25/2017 Diabetic neuropathy 04/03/2014 12/18/2014 Abdominal or pelvic swelling , mass, or lump, other specified site 05/24/2006 02/25/2017 DIABETES MELLITUS TYPE II-UNCOMPL 06/11/2005 12/18/2014 Other primary cardiomyopathies 06/11/2005 0 09/16/2017 documented as of this encounter (statuses as of 07/21/2022) [facility] History of Past illness Narrative* Problem Noted Date Resolved Date Vitamin B12 deficiency 02/25/2017 3 Bladder stone 08/19/2015 02/25/2017 Hydronephrosis 08/19/2015 05/29/2022 Kidney stone 08/19/2015 02/25/2017 Diabetic neuropathy 04/03/2014 12/18/2014 Abdominal or pelvic swelling , mass, or lump, other specified site 05/24/2006 02/25/2017 DIABETES MELLITUS TYPE II-UNCOMPL 06/11/2005 12/18/2014 Other primary cardiomyopathies 06/11/2005 0 09/16/2017 documented as of this encounter (statuses as of 07/21/2022) [facility] History of Past illness Narrative* Problem Noted Date Resolved Date Vitamin B12 deficiency 02/25/2017 3 Bladder stone 08/19/2015 02/25/2017 Hydronephrosis 08/19/2015 05/29/2022 Kidney stone 08/19/2015 02/25/2017 Diabetic neuropathy 04/03/2014 12/18/2014 Abdominal or pelvic swelling , mass, or lump, other specified site 05/24/2006 02/25/2017 DIABETES MELLITUS TYPE II-UNCOMPL 06/11/2005 12/18/2014 Other primary cardiomyopathies 06/11/2005 0 09/16/2017 documented as of this encounter (statuses as of 07/21/2022) [facility] History of Past illness Narrative* Problem Noted Date Resolved Date Vitamin B12 deficiency 02/25/2017 3 Bladder stone 08/19/2015 02/25/2017 Hydronephrosis 08/19/2015 05/29/2022 Kidney stone 08/19/2015 02/25/2017 Diabetic neuropathy 04/03/2014 12/18/2014 Abdominal or pelvic swelling , mass, or lump, other specified site 05/24/2006 02/25/2017 DIABETES MELLITUS TYPE II-UNCOMPL 06/11/2005 12/18/2014 Other primary cardiomyopathies 06/11/2005 0 09/16/2017 documented as of this encounter (statuses as of 10/23/2022) [facility] History of Past illness Narrative* Problem Noted Date Resolved Date Vitamin B12 deficiency 02/25/2017 3 Bladder stone 08/19/2015 02/25/2017 Hydronephrosis 08/19/2015 05/29/2022 Kidney stone 08/19/2015 02/25/2017 Diabetic neuropathy 04/03/2014 12/18/2014 Abdominal or pelvic swelling , mass, or lump, other specified site 05/24/2006 02/25/2017 DIABETES MELLITUS TYPE II-UNCOMPL 06/11/2005 12/18/2014 Other primary cardiomyopathies 06/11/2005 0 09/16/2017 documented as of this encounter (statuses as of 10/23/2022) [facility] History of Past illness Narrative* Problem Noted Date Resolved Date Vitamin B12 deficiency 02/25/2017 3 Bladder stone 08/19/2015 02/25/2017 Hydronephrosis 08/19/2015 05/29/2022 Kidney stone 08/19/2015 02/25/2017 Diabetic neuropathy 04/03/2014 12/18/2014 Abdominal or pelvic swelling , mass, or lump, other specified site 05/24/2006 02/25/2017 DIABETES MELLITUS TYPE II-UNCOMPL 06/11/2005 12/18/2014 Other primary cardiomyopathies 06/11/2005 0 09/16/2017 documented as of this encounter (statuses as of 11/03/2022) [facility] History of Past illness Narrative* Problem Noted Date Resolved Date Vitamin B12 deficiency 02/25/2017 3 Bladder stone 08/19/2015 02/25/2017 Hydronephrosis 08/19/2015 05/29/2022 Kidney stone 08/19/2015 02/25/2017 Diabetic neuropathy 04/03/2014 12/18/2014 Abdominal or pelvic swelling , mass, or lump, other specified site 05/24/2006 02/25/2017 DIABETES MELLITUS TYPE II-UNCOMPL 06/11/2005 12/18/2014 Other primary cardiomyopathies 06/11/2005 0 09/16/2017 documented as of this encounter (statuses as of 11/03/2022) [facility] History of Past illness Narrative* Problem Noted Date Resolved Date Vitamin B12 deficiency 02/25/2017 3 Bladder stone 08/19/2015 02/25/2017 Hydronephrosis 08/19/2015 05/29/2022 Kidney stone 08/19/2015 02/25/2017 Diabetic neuropathy 04/03/2014 12/18/2014 Abdominal or pelvic swelling , mass, or lump, other specified site 05/24/2006 02/25/2017 DIABETES MELLITUS TYPE II-UNCOMPL 06/11/2005 12/18/2014 Other primary cardiomyopathies 06/11/2005 0 09/16/2017 documented as of this encounter (statuses as of 11/13/2022) [facility] History of Past illness Narrative* Problem Noted Date Diagnosed Date Resolved Date Vitamin B12 deficiency 02/25/201705/29 Bladder stone 08/19/2015 02/25/2017 Hydronephrosis 08/19/2015 05/29/2022 Kidney stone 08/19/2015 02/25/2017 Diabetic neuropathy 04/03/2014 12/19/19 15 Abdominal or pelvic swelling , mass, or lump, other specified site 05/24/2006 02/25/2017 DIABETES MELLITUS TYPE II-UNCOMPL 06/11/2005 12/18/2014 Other primary cardiomyopathies 06/11/2005 09/16/2017 documented as of this encounter (statuses as of 11/24/2022) [facility] History of Past illness Narrative* Problem Noted Date Diagnosed Date Resolved Date Vitamin B12 deficiency 02/25/201705/29 Bladder stone 08/19/2015 02/25/2017 Hydronephrosis 08/19/2015 05/29/2022 Kidney stone 08/19/2015 02/25/2017 Diabetic neuropathy 04/03/2014 12/19/19 15 Abdominal or pelvic swelling , mass, or lump, other specified site 05/24/2006 02/25/2017 DIABETES MELLITUS TYPE II-UNCOMPL 06/11/2005 12/18/2014 Other primary cardiomyopathies 06/11/2005 09/16/2017 documented as of this encounter (statuses as of 11/26/2022) [facility] History of Past illness Narrative* Problem Noted Date Diagnosed Date Resolved Date Vitamin B12 deficiency 02/25/201705/29 Bladder stone 08/19/2015 02/25/2017 Hydronephrosis 08/19/2015 05/29/2022 Kidney stone 08/19/2015 02/25/2017 Diabetic neuropathy 04/03/2014 12/19/19 15 Abdominal or pelvic swelling , mass, or lump, other specified site 05/24/2006 02/25/2017 DIABETES MELLITUS TYPE II-UNCOMPL 06/11/2005 12/18/2014 Other primary cardiomyopathies 06/11/2005 09/16/2017 documented as of this encounter (statuses as of 12/07/2022) [facility] History of Past illness Narrative* Problem Noted Date Diagnosed Date Resolved Date Vitamin B12 deficiency 02/25/201705/29 Bladder stone 08/19/2015 02/25/2017 Hydronephrosis 08/19/2015 05/29/2022 Kidney stone 08/19/2015 02/25/2017 Diabetic neuropathy 04/03/2014 12/19/19 15 Abdominal or pelvic swelling , mass, or lump, other specified site 05/24/2006 02/25/2017 DIABETES MELLITUS TYPE II-UNCOMPL 06/11/2005 12/18/2014 Other primary cardiomyopathies 06/11/2005 09/16/2017 documented as of this encounter (statuses as of 01/27/2023) [facility] History of Past illness Narrative* Problem Noted Date Diagnosed Date Resolved Date Vitamin B12 deficiency 02/25/201705/29 Bladder stone 08/19/2015 02/25/2017 Hydronephrosis 08/19/2015 05/29/2022 Kidney stone 08/19/2015 02/25/2017 Diabetic neuropathy 04/03/2014 12/19/19 15 Abdominal or pelvic swelling , mass, or lump, other specified site 05/24/2006 02/25/2017 DIABETES MELLITUS TYPE II-UNCOMPL 06/11/2005 12/18/2014 Other primary cardiomyopathies 06/11/2005 09/16/2017 documented as of this encounter (statuses as of 03/01/2023) [facility] History of Past illness Narrative* Problem Noted Date Diagnosed Date Resolved Date Vitamin B12 deficiency 02/25/201705/29 Bladder stone 08/19/2015 02/25/2017 Hydronephrosis 08/19/2015 05/29/2022 Kidney stone 08/19/2015 02/25/2017 Diabetic neuropathy 04/03/2014 12/19/19 15 Abdominal or pelvic swelling , mass, or lump, other specified site 05/24/2006 02/25/2017 DIABETES MELLITUS TYPE II-UNCOMPL 06/11/2005 12/18/2014 Other primary cardiomyopathies 06/11/2005 09/16/2017 documented as of this encounter (statuses as of 03/14/2023) [facility] History of Past illness Narrative* Problem Noted Date Diagnosed Date Resolved Date Vitamin B12 deficiency 02/25/201705/29 Bladder stone 08/19/2015 02/25/2017 Hydronephrosis 08/19/2015 05/29/2022 Kidney stone 08/19/2015 02/25/2017 Diabetic neuropathy 04/03/2014 12/19/19 15 Abdominal or pelvic swelling , mass, or lump, other specified site 05/24/2006 02/25/2017 DIABETES MELLITUS TYPE II-UNCOMPL 06/11/2005 12/18/2014 Other primary cardiomyopathies 06/11/2005 09/16/2017 documented as of this encounter (statuses as of 04/05/2023) [facility] History of Past illness Narrative* Problem Noted Date Resolved Date Bladder stone 08/19/2015 02/25/2017 Kidney stone 08/19/2015 02/25/2017 Diabetic neuropathy 04/03/2014 12/18/2014 Abdominal or pelvic swelling , mass, or lump, other specified site 05/24/2006 02/25/2017 DIABETES MELLITUS TYPE II-UNCOMPL 06/11/2005 12/18/2014 Other primary cardiomyopathies 06/11/2005 0 09/16/2017 documented as of this encounter (statuses as of 09/01/2021) [facility] History of Past illness Narrative* Problem Noted Date Resolved Date Bladder stone 08/19/2015 02/25/2017 Kidney stone 08/19/2015 02/25/2017 Diabetic neuropathy 04/03/2014 12/18/2014 Abdominal or pelvic swelling , mass, or lump, other specified site 05/24/2006 02/25/2017 DIABETES MELLITUS TYPE II-UNCOMPL 06/11/2005 12/18/2014 Other primary cardiomyopathies 06/11/2005 0 09/16/2017 documented as of this encounter (statuses as of 10/27/2021) [facility] History of Past illness Narrative* Problem Noted Date Resolved Date Bladder stone 08/19/2015 02/25/2017 Kidney stone 08/19/2015 02/25/2017 Diabetic neuropathy 04/03/2014 12/18/2014 Abdominal or pelvic swelling , mass, or lump, other specified site 05/24/2006 02/25/2017 DIABETES MELLITUS TYPE II-UNCOMPL 06/11/2005 12/18/2014 Other primary cardiomyopathies 06/11/2005 0 09/16/2017 documented as of this encounter (statuses as of 10/28/2021) [facility] History of Past illness Narrative* Problem Noted Date Resolved Date Bladder stone 08/19/2015 02/25/2017 Kidney stone 08/19/2015 02/25/2017 Diabetic neuropathy 04/03/2014 12/18/2014 Abdominal or pelvic swelling , mass, or lump, other specified site 05/24/2006 02/25/2017 DIABETES MELLITUS TYPE II-UNCOMPL 06/11/2005 12/18/2014 Other primary cardiomyopathies 06/11/2005 0 09/16/2017 documented as of this encounter (statuses as of 11/07/2021) [facility] History of Past illness Narrative* Problem Noted Date Resolved Date Bladder stone 08/19/2015 02/25/2017 Kidney stone 08/19/2015 02/25/2017 Diabetic neuropathy 04/03/2014 12/18/2014 Abdominal or pelvic swelling , mass, or lump, other specified site 05/24/2006 02/25/2017 DIABETES MELLITUS TYPE II-UNCOMPL 06/11/2005 12/18/2014 Other primary cardiomyopathies 06/11/2005 0 09/16/2017 documented as of this encounter (statuses as of 11/07/2021) [facility] History of Past illness Narrative* Problem Noted Date Resolved Date Bladder stone 08/19/2015 02/25/2017 Kidney stone 08/19/2015 02/25/2017 Diabetic neuropathy 04/03/2014 12/18/2014 Abdominal or pelvic swelling , mass, or lump, other specified site 05/24/2006 02/25/2017 DIABETES MELLITUS TYPE II-UNCOMPL 06/11/2005 12/18/2014 Other primary cardiomyopathies 06/11/2005 0 09/16/2017 documented as of this encounter (statuses as of 12/02/2021) [facility] History of Past illness Narrative* Problem Noted Date Resolved Date Bladder stone 08/19/2015 02/25/2017 Kidney stone 08/19/2015 02/25/2017 Diabetic neuropathy 04/03/2014 12/18/2014 Abdominal or pelvic swelling , mass, or lump, other specified site 05/24/2006 02/25/2017 DIABETES MELLITUS TYPE II-UNCOMPL 06/11/2005 12/18/2014 Other primary cardiomyopathies 06/11/2005 0 09/16/2017 documented as of this encounter (statuses as of 12/08/2021) [facility] History of Past illness Narrative* Problem Noted Date Resolved Date Bladder stone 08/19/2015 02/25/2017 Kidney stone 08/19/2015 02/25/2017 Diabetic neuropathy 04/03/2014 12/18/2014 Abdominal or pelvic swelling , mass, or lump, other specified site 05/24/2006 02/25/2017 DIABETES MELLITUS TYPE II-UNCOMPL 06/11/2005 12/18/2014 Other primary cardiomyopathies 06/11/2005 0 09/16/2017 documented as of this encounter (statuses as of 12/10/2021) [facility] History of Past illness Narrative* Problem Noted Date Resolved Date Bladder stone 08/19/2015 02/25/2017 Kidney stone 08/19/2015 02/25/2017 Diabetic neuropathy 04/03/2014 12/18/2014 Abdominal or pelvic swelling , mass, or lump, other specified site 05/24/2006 02/25/2017 DIABETES MELLITUS TYPE II-UNCOMPL 06/11/2005 12/18/2014 Other primary cardiomyopathies 06/11/2005 0 09/16/2017 documented as of this encounter (statuses as of 12/12/2021) [facility] of Past illness Narrative* Problem Noted Date Resolved Date Bladder stone 08/19/2015 02/25/2017 Kidney stone 08/19/2015 02/25/2017 Diabetic neuropathy 04/03/2014 12/18/2014 Abdominal or pelvic swelling , mass, or lump, other specified site 05/24/2006 02/25/2017 DIABETES MELLITUS TYPE II-UNCOMPL 06/11/2005 12/18/2014 Other primary cardiomyopathies 06/11/2005 0 09/16/2017 documented as of this encounter (statuses as of 12/12/2021) [facility] of Past illness Narrative* Problem Noted Date Resolved Date Bladder stone 08/19/2015 02/25/2017 Kidney stone 08/19/2015 02/25/2017 Diabetic neuropathy 04/03/2014 12/18/2014 Abdominal or pelvic swelling , mass, or lump, other specified site 05/24/2006 02/25/2017 DIABETES MELLITUS TYPE II-UNCOMPL 06/11/2005 12/18/2014 Other primary cardiomyopathies 06/11/2005 0 09/16/2017 documented as of this encounter (statuses as of 01/20/2022) [facility] of Past illness Narrative* Problem Noted Date Resolved Date Bladder stone 08/19/2015 02/25/2017 Kidney stone 08/19/2015 02/25/2017 Diabetic neuropathy 04/03/2014 12/18/2014 Abdominal or pelvic swelling , mass, or lump, other specified site 05/24/2006 02/25/2017 DIABETES MELLITUS TYPE II-UNCOMPL 06/11/2005 12/18/2014 Other primary cardiomyopathies 06/11/2005 0 09/16/2017 documented as of this encounter (statuses as of 01/21/2022) [facility] of Past illness Narrative* Problem Noted Date Resolved Date Bladder stone 08/19/2015 02/25/2017 Kidney stone 08/19/2015 02/25/2017 Diabetic neuropathy 04/03/2014 12/18/2014 Abdominal or pelvic swelling , mass, or lump, other specified site 05/24/2006 02/25/2017 DIABETES MELLITUS TYPE II-UNCOMPL 06/11/2005 12/18/2014 Other primary cardiomyopathies 06/11/2005 0 09/16/2017 documented as of this encounter (statuses as of 01/23/2022) [facility] of Past illness Narrative* Problem Noted Date Resolved Date Bladder stone 08/19/2015 02/25/2017 Kidney stone 08/19/2015 02/25/2017 Diabetic neuropathy 04/03/2014 12/18/2014 Abdominal or pelvic swelling , mass, or lump, other specified site 05/24/2006 02/25/2017 DIABETES MELLITUS TYPE II-UNCOMPL 06/11/2005 12/18/2014 Other primary cardiomyopathies 06/11/2005 0 09/16/2017 documented as of this encounter (statuses as of 03/02/2022) [facility] of Past illness Narrative* Problem Noted Date Resolved Date Bladder stone 08/19/2015 02/25/2017 Kidney stone 08/19/2015 02/25/2017 Diabetic neuropathy 04/03/2014 12/18/2014 Abdominal or pelvic swelling , mass, or lump, other specified site 05/24/2006 02/25/2017 DIABETES MELLITUS TYPE II-UNCOMPL 06/11/2005 12/18/2014 Other primary cardiomyopathies 06/11/2005 0 09/16/2017 documented as of this encounter (statuses as of 03/09/2022) [facility] illness Narrative* Problem Noted Date Resolved Date Bladder stone 08/19/2015 02/25/2017 Kidney stone 08/19/2015 02/25/2017 Diabetic neuropathy 04/03/2014 12/18/2014 Abdominal or pelvic swelling , mass, or lump, other specified site 05/24/2006 02/25/2017 DIABETES MELLITUS TYPE II-UNCOMPL 06/11/2005 12/18/2014 Other primary cardiomyopathies 06/11/2005 0 09/16/2017 documented as of this encounter (statuses as of 03/11/2022) [facility] illness Narrative* Problem Noted Date Resolved Date Bladder stone 08/19/2015 02/25/2017 Kidney stone 08/19/2015 02/25/2017 Diabetic neuropathy 04/03/2014 12/18/2014 Abdominal or pelvic swelling , mass, or lump, other specified site 05/24/2006 02/25/2017 DIABETES MELLITUS TYPE II-UNCOMPL 06/11/2005 12/18/2014 Other primary cardiomyopathies 06/11/2005 0 09/16/2017 documented as of this encounter (statuses as of 04/06/2022) [facility] illness Narrative* Problem Noted Date Resolved Date Bladder stone 08/19/2015 02/25/2017 Kidney stone 08/19/2015 02/25/2017 Diabetic neuropathy 04/03/2014 12/18/2014 Abdominal or pelvic swelling , mass, or lump, other specified site 05/24/2006 02/25/2017 DIABETES MELLITUS TYPE II-UNCOMPL 06/11/2005 12/18/2014 Other primary cardiomyopathies 06/11/2005 0 09/16/2017 documented as of this encounter (statuses as of 05/12/2022) [facility] Aortic valve stenosis, etiology of cardiac valve disease unspecified Dyspnea on exertion Other dyspnea and respiratory abnormality documented in this encounter [facility] Work [facility]: Evaluation [facility]* Diagnosis Severe aortic stenosis Aortic valve disorders documented in this encounter [facility] Work Phone: Evaluation note* Diagnosis Severe aortic stenosis Aortic valve disorders documented in this encounter [facility] Work Phone: Evaluation note* Diagnosis Onset Date Resolution Status Anemia acute 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 Work Phone: Evaluation note* Diagnosis Phimosis- Primary Redundant prepuce and phimosis documented in this encounter [facility] note* Diagnosis Essential hypertension, benign- Primary Mixed hyperlipidemia Fatigue, unspecified type Anemia, unspecified type Vitamin B12 deficiency Other B-complex deficiencies IRINEO (obstructive sleep apnea) Obstructive sleep apnea (adult) (pediatric) Diabetic polyneuropathy associated with type 2 diabetes mellitus (HCC) Aortic valve stenosis, etiology of cardiac valve disease unspecified Anemia due to folic acid deficiency, unspecified deficiency type Anemia due to vitamin B12 deficiency, unspecified B12 deficiency type 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 HLD (hyperlipidemia) chronic Encounter for screening colonoscopy acute [facility] Work Phone: Evaluation note* Diagnosis Fatigue, unspecified type- Primary Diabetic polyneuropathy associated with type 2 diabetes mellitus (HCC) Hypertensive kidney disease with stage 3 chronic kidney disease, 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) Mixed hyperlipidemia Aortic valve stenosis, etiology of cardiac valve disease unspecified Anemia due to folic acid deficiency, unspecified deficiency type Anemia due to vitamin B12 deficiency, unspecified B12 deficiency type Type 2 diabetes mellitus with stage 3 chronic kidney disease, without long-term current use of insulin, 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) 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 Diagnosis IRINEO (obstructive sleep apnea)- Primary Obstructive sleep apnea (adult) (pediatric) [facility] Diagnosis Fatigue, unspecified type- Primary Encounter for immunization Need for other specified prophylactic vaccination against single bacterial disease Anxiety with depression IRINEO (obstructive sleep apnea) Obstructive sleep apnea (adult) (pediatric) [facility] Diagnosis Onset Date Resolution Status Constipation acute Tubular adenoma of colon acu te Obstructive sleep apnea acut e Atherosclerotic heart diseas e of [place] coronary artery without angina pectoris chronic CHF (congestive heart failure), NYHA class III chronic 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 Work Phone: Evaluation note* Diagnosis Diabetic polyneuropathy associated with type 2 diabetes mellitus (HCC) documented in this encounter [facility] note* Diagnosis Diabetic polyneuropathy associated with type 2 diabetes mellitus (HCC)- Primary Morbid obesity with BMI of 40.0-44.9, adult (HCC) Morbid obesity Type 2 diabetes mellitus with stage 3 chronic kidney disease, without long-term current use of insulin, 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) 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 1 through stage 4 chronic kidney disease, or unspecified chronic kidney disease (HCC) Tremor, essential Essential and other specified forms of tremor Mixed hyperlipidemia Hypertensive kidney disease with stage 3 chronic kidney disease, 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) History of non-ST elevation myocardial infarction (NSTEMI) Old myocardial infarction Essential hypertension, benign Aortic valve stenosis, etiology of cardiac valve disease unspecified Anemia due to folic acid deficiency, unspecified deficiency type Anemia due to vitamin B12 deficiency, unspecified B12 deficiency type Stage 3 chronic kidney disease, 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) 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 noteNo assessment information availableWBet[facility] Work Phone: Evaluation note* Diagnosis URI, acute- Primary Acute upper respiratory infections of unspecified site Acute cough documented in this encounter [facility] note* Diagnosis Fatigue, unspecified type Anxiety with depression documented in this encounter [facility] note* Diagnosis Diabetic polyneuropathy associated with type 2 diabetes mellitus (HCC)- Primary Mixed hyperlipidemia Vitamin D deficiency Unspecified vitamin D deficiency Type 2 diabetes mellitus with stage 3 chronic kidney disease, without long-term current use of insulin, 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) [facility] Diagnosis IRINEO on CPAP- Primary Obstructive sleep apnea (adult) (pediatric) Treatment-emergent central sleep apnea Parkinson disease (HCC) Paralysis agitans [facility] Diagnosis Anemia due to folic acid deficiency, unspecified deficiency type [facility] Diagnosis Parkinson disease (HCC)- Primary Paralysis agitans Weakness of both lower extremities Lumbar degenerative disc disease Degeneration of lumbar or lumbosacral intervertebral disc Other symptoms and signs involving the nervous system [facility] Diagnosis Other symptoms and signs involving the nervous system [facility] Diagnosis Diabetic polyneuropathy associated with type 2 diabetes mellitus (HCC) [facility] Diagnosis Mixed hyperlipidemia- Primary Essential hypertension, benign Aortic valve stenosis, etiology of cardiac valve disease unspecified Hypertensive kidney disease with stage 3 chronic kidney disease, 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) Anemia due to vitamin B12 deficiency, unspecified B12 deficiency type Anemia due to folic acid deficiency, unspecified deficiency type Diabetic polyneuropathy associated with type 2 diabetes mellitus (HCC) [facility] Diagnosis Fatigue, unspecified type Anxiety with depression [facility]* Diagnosis Parkinson's disease, unspecified whether dyskinesia present, unspecified whether manifestations fluctuate ([facility])- Primary Weakness of both lower extremities Lumbar degenerative disc disease Degeneration of lumbar or lumbosacral intervertebral disc Sciatica of right side Sciatica Neuropathy Mononeuritis of unspecified site IRINEO on CPAP Obstructive sleep apnea (adult) (pediatric) Treatment-emergent central sleep apnea Abnormality of gait Class 3 severe obesity with body mass index (BMI) of 40.0 to 44.9 in adult, unspecified obesity type, unspecified whether serious comorbidity present ([facility]) [facility] Diagnosis Diabetic polyneuropathy associated with type 2 diabetes mellitus (HCC)- Primary Hypersomnia Hypersomnia, unspecified Aortic valve stenosis, etiology of cardiac valve disease unspecified History of non-ST elevation myocardial infarction (NSTEMI) Old myocardial infarction Hypertensive kidney disease with stage 3 chronic kidney disease, 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) Mixed hyperlipidemia Essential hypertension, benign Coronary artery disease involving [place] coronary artery of [place] heart without angina pectoris Multiple premature ventricular complexes Other premature beats Anemia due to vitamin B12 deficiency, unspecified B12 deficiency type Anemia due to folic acid deficiency, unspecified deficiency type Type 2 diabetes mellitus with stage 3 chronic kidney disease, without long-term current use of insulin, 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) 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, unspecified site, extranodal and solid organ sites Anxiety with depression TIA (transient ischemic attack) Unspecified transient cerebral ischemia Vitamin D deficiency Unspecified vitamin D deficiency BMI 40.0-44.9, adult (HCC) Body Mass Index 40.0-44.9, adult History of iron deficiency anemia Personal history of diseases of blood and blood-forming organs Parkinson's disease, unspecified whether dyskinesia present, unspecified whether manifestations fluctuate (HCC) Benign prostatic hyperplasia without lower urinary tract symptoms IRINEO (obstructive sleep apnea) Obstructive sleep apnea (adult) (pediatric) [facility] Diagnosis Anemia, unspecified type- [facility] IRINEO (obstructive sleep apnea)- Primary Obstructive sleep apnea (adult) (pediatric) Treatment-emergent central sleep apnea [facility] Diagnosis Anemia, unspecified type- Primary [facility] Diagnosis Anemia, unspecified type [facility] Diagnosis 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) Stage 3b chronic kidney disease (HCC) [facility] Diagnosis 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) Stage 3b chronic kidney disease (HCC) [facility] Diagnosis 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) Stage 3b chronic kidney disease (HCC) [facility] 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) Stage 3b chronic kidney disease (HCC) [facility]* Diagnosis Anemia due to folic acid deficiency, unspecified deficiency type [facility]* Diagnosis Weakness of both lower extremities- Primary Parkinson's disease, unspecified whether dyskinesia present, unspecified whether manifestations fluctuate (HCC) Sciatica of right side Sciatica Neuropathy Mononeuritis of unspecified site Abnormality of gait Depression, unspecified depression type Lumbar degenerative disc disease Degeneration of lumbar or lumbosacral intervertebral disc [facility]* Diagnosis 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)- Primary Iron malabsorption Other specified intestinal malabsorption [facility] Diagnosis Anemia, unspecified type Stage 3b chronic kidney disease (HCC) Iron malabsorption Other specified intestinal malabsorption [facility] Diagnosis Rib pain on right side- Primary Chest pain, unspecified Closed fracture of multiple ribs of right side, initial encounter Rib pain on right side Chest pain, unspecified [facility] Diagnosis Rib pain on right side Chest pain, unspecified [facility]* Diagnosis URI, acute Acute upper respiratory infections of unspecified site Acute cough [facility] Diagnosis Open fracture of multiple ribs of right side with routine healing, subsequent encounter- Primary Stage 3 chronic kidney disease, 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) Anemia due to folic acid deficiency, unspecified deficiency type Essential hypertension, benign Hypertensive kidney disease with stage 3 chronic kidney disease, 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) History of iron deficiency anemia Personal history of diseases of blood and blood-forming organs [facility] Diagnosis 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)- Primary [facility] Diagnosis Cough [facility]* Diagnosis Diarrhea, unspecified type Cough [facility]* Diagnosis 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)- Primary [facility] Diagnosis 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)- Primary [facility] Diagnosis 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)- Primary [facility] Diagnosis 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)- Primary [facility]* Diagnosis Parkinson's disease, unspecified whether dyskinesia present, unspecified whether manifestations fluctuate (HCC)- Primary Essential hypertension, benign Mixed hyperlipidemia Hypertensive kidney disease with stage 3 chronic kidney disease, 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) Coronary artery disease involving [place] coronary artery of [place] heart without angina pectoris IRINEO (obstructive sleep apnea) Obstructive sleep apnea (adult) (pediatric) Anemia due to vitamin B12 deficiency, unspecified B12 deficiency type Type 2 diabetes mellitus with stage 3 chronic kidney disease, without long-term current use of insulin, 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) 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) Vitamin D deficiency Unspecified vitamin D deficiency BMI 40.0-44.9, adult ([facility]) Body Mass Index 40.0-44.9, adult Acute pain of left shoulder [facility]* Diagnosis Parkinson's disease, unspecified whether dyskinesia present, unspecified whether manifestations fluctuate (HCC)- Primary Spinal stenosis of lumbar region with neurogenic claudication Spinal stenosis, lumbar region, with neurogenic claudication Acute pain of left shoulder due to trauma Neuropathy Mononeuritis of unspecified site Abnormality of gait IRINEO on CPAP Obstructive sleep apnea (adult) (pediatric) Treatment-emergent central sleep apnea Class 3 severe obesity with body mass index (BMI) of 40.0 to 44.9 in adult, unspecified obesity type, unspecified whether serious comorbidity present ([facility]) [facility] Acute pain of left shoulder [facility] Diagnosis Other closed nondisplaced fracture of proximal end of humerus, unspecified laterality, initial encounter- Primary [facility] Diagnosis 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)- Primary Iron malabsorption Other specified intestinal malabsorption [facility] Diagnosis Acute pain of left shoulder due to trauma [facility] Diagnosis Spinal stenosis of lumbar region with neurogenic claudication Spinal stenosis, lumbar region, with neurogenic claudication [facility] Diagnosis Acute pain of left shoulder- Primary Other closed nondisplaced fracture of proximal end of left humerus, initial encounter [facility] Diagnosis Anxiety- Primary Anxiety state, unspecified [facility] Diagnosis 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)- Primary [facility] Diagnosis 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)- Primary Iron malabsorption Other specified intestinal malabsorption [facility] Diagnosis Parkinson's disease with dyskinesia, unspecified whether manifestations fluctuate (HCC)- Primary Anxiety Anxiety state, unspecified Diabetic polyneuropathy associated with type 2 diabetes mellitus (HCC) Benign prostatic hyperplasia without lower urinary tract symptoms Paroxysmal atrial fibrillation (HCC) Atrial fibrillation Age-related physical debility Senility without mention of psychosis [facility] Diagnosis Diabetic polyneuropathy associated with type 2 diabetes mellitus (HCC) [facility] Diagnosis 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)- Primary [facility] Diagnosis 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)- Primary Iron malabsorption Other specified intestinal malabsorption [facility] Diagnosis Fatigue, unspecified type Anxiety with depression [facility]* Diagnosis Tremor, essential- Primary Essential and other specified forms of tremor Parkinson's disease, unspecified whether dyskinesia present, unspecified whether manifestations fluctuate (HCC) Essential hypertension, benign Mixed hyperlipidemia Aortic valve stenosis, etiology of cardiac valve disease unspecified Hypertensive kidney disease with stage 3 chronic kidney disease, 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) Coronary artery disease involving [place] coronary artery of [place] heart without angina pectoris LV dysfunction Heart disease, unspecified IRINEO (obstructive sleep apnea) Obstructive sleep apnea (adult) (pediatric) Anemia due to vitamin B12 deficiency, unspecified B12 deficiency type Anemia due to folic acid deficiency, unspecified deficiency type Iron malabsorption (HCC) Other specified intestinal malabsorption Stage 3 chronic kidney disease, 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) Type 2 diabetes mellitus with stage 3 chronic kidney disease, without long-term current use of insulin, 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) Microalbuminuria Proteinuria Lymphoma in remission Other malignant lymphomas, unspecified site, extranodal and solid organ sites Anxiety with depression TIA (transient ischemic attack) Unspecified transient cerebral ischemia Class 2 obesity with body mass index (BMI) of 39.0 to 39.9 in adult, unspecified obesity type, unspecified whether serious comorbidity present Diarrhea, unspecified type [facility] Diagnosis 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)- Primary [facility] Diagnosis Anemia due to vitamin B12 deficiency, unspecified B12 deficiency type- Primary [facility] Diagnosis 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)- Primary [facility]* Diagnosis Parkinson's disease, unspecified whether dyskinesia present, unspecified whether manifestations fluctuate (HCC)- Primary Abnormality of gait Altered mental status, unspecified altered mental status type IRINEO on CPAP Obstructive sleep apnea (adult) (pediatric) Treatment-emergent central sleep apnea [facility] Diagnosis Parkinson's disease, unspecified whether dyskinesia present, unspecified whether manifestations fluctuate (HCC) Abnormality of gait Altered mental status, unspecified altered mental status type [facility]* Diagnosis 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)- Primary [facility] Diagnosis Subdural hematoma (HCC) Subdural hemorrhage [facility] Diagnosis Subdural hematoma, chronic (HCC)- Primary Subdural hemorrhage [facility]* Diagnosis Diabetic polyneuropathy associated with type 2 diabetes mellitus (HCC)- Primary Mixed hyperlipidemia Pressure injury of buttock, stage 2, unspecified laterality (HCC) Parkinson's disease without dyskinesia or fluctuating manifestations (HCC) Tinea corporis Dermatophytosis of the body [facility]* Diagnosis 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)- Primary [facility] Diagnosis Tremor, essential- Primary Essential and other specified forms of tremor Diabetic polyneuropathy associated with type 2 diabetes mellitus (HCC) Parkinson's disease without dyskinesia or fluctuating manifestations (HCC) Essential hypertension, benign Mixed hyperlipidemia Aortic valve stenosis, etiology of cardiac valve disease unspecified Hypertensive kidney disease with stage 3b chronic kidney disease (HCC) Coronary artery disease involving [place] coronary artery of [place] heart without angina 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 note* Diagnosis Pressure injury of sacral region, stage 2 (HCC)- Primary documented in this encounter [facility] note* Diagnosis Paroxysmal atrial fibrillation (HCC) Atrial fibrillation documented in this encounter 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, unspecified site, extranodal and solid organ sites Obesity, Class II, BMI 35-39.9 Obesity, unspecified Tremor, essential Essential and other specified forms of tremor Subdural hematoma, chronic (HCC) Subdural hemorrhage Parkinson's disease, unspecified whether dyskinesia present, unspecified whether manifestations fluctuate (HCC) Diabetic polyneuropathy associated with type 2 diabetes mellitus (HCC) Coronary artery disease involving [place] coronary artery of [place] heart without angina pectoris Essential hypertension, benign Aortic valve stenosis, etiology of cardiac valve disease unspecified Mixed hyperlipidemia IRINEO (obstructive sleep apnea) Obstructive sleep apnea (adult) (pediatric) Anemia due to folic acid deficiency, unspecified deficiency type Anemia due to vitamin B12 deficiency, unspecified B12 deficiency type Iron malabsorption (HCC) Other specified intestinal malabsorption 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) Stage 3 chronic kidney disease, 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) Type 2 diabetes mellitus with stage 3 chronic kidney disease, without long-term current use of insulin, 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) Anxiety with depression History of TIA (transient ischemic attack) Transient ischemic attack (TIA), and 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 deficits Vision loss Unspecified visual loss Non healing left heel wound Open wound of foot except toe(s) alone, complicated [facility] Diagnosis Parkinson's disease, unspecified whether dyskinesia present, unspecified whether manifestations fluctuate (HCC) [facility] Diagnosis Falls frequently- Primary Personal history of fall documented in this encounter [facility] for referral (narrative)* Diagnostic Procedure Only (Routine) - Authorized Specialty Diagnoses / Procedures Referred By Contac t Referred To Contact [facility] Diagnoses IRINEO (obstructive sleep apnea) Procedures HOME SLEEP APNEA TEST (HSAT) SLEEP STD AIRFLOW HRT RATE&O2 SAT EFFORT Arsh Vines MD [address] [place] [address] Neurological [place] [address] [place] [place] [id number] Referral ID Status Reason Start Date Expiration Date Visits Requested Visits Authorized [id number] Authorized Auto-Generat ed Referral 11/07/2021 11/07/2022 1 1 [facility] for referral (narrative)* Diagnostic Procedure Only (Urgent) - Closed Specialty Diagnoses / Procedures [facility] Referred To Contact XR IMAGING Diagnoses Rib pain on right side Procedures XR RIBS/CHEST 3V AP RIB/OBLS/CXR RIGHT RADEX RIBS UNI W/POSTEROANT CH MINIMUM 3 VIEWS Gabriel Butler APRN.IGNITER CAPPER [address] [place] [address] [place] [address] Referral ID Status Reason Start Date Expiration Date V isits Requested Visits Authorized [id number] Closed Auto-Generate d Referral 01/26/2024 02/24/2025 1 1 [facility] for referral (narrative)* Diagnostic Procedure Only (Urgent) - Closed Specialty Diagnoses / Procedures [facility] Referred To Contact XR IMAGING Diagnoses Rib pain on right side Procedures XR RIBS/CHEST 3V AP RIB/OBLS/CXR RIGHT RADEX RIBS UNI W/POSTEROANT CH MINIMUM 3 VIEWS Gabriel Butler APRN.IGNITER CAPPER [address] [place] [address] [place] [address] Referral ID Status Reason Start Date Expiration Date V isits Requested Visits Authorized [id number] Closed Auto-Generate d Referral 01/26/2024 02/24/2025 1 1 [facility] for referral (narrative)* Diagnostic Procedure Only (Routine) - Closed Specialty Diagnoses / Procedures Referred By Contac t Referred To Contact XR IMAGING Diagnoses Acute pain of left shoulder Procedures XR SHOULDER GENERAL 3V OR MORE AP/TRUE AP/OTHER LEFT RADEX SHOULDER COMPLETE MINIMUM 2 VIEWS Arsh Polk MD [address] [place] [address] [place] [address] Referral ID Status Reason Start Date Expiration Date V isits Requested Visits Authorized [id number] Closed Auto-Generate d Referral 03/27/2024 04/26/2025 1 1 [facility] for referral (narrative)No reason for referral information [facility] Work Phone[facility] Narrative* Diagnostic Procedure Only (Urgent) - Closed Specialty Diagnoses / Procedures Referred By Contac t Referred To Contact XR IMAGING Diagnoses Rib pain on right side Procedures XR RIBS/CHEST 3V AP RIB/OBLS/CXR RIGHT RADEX RIBS UNI W/POSTEROANT CH MINIMUM 3 VIEWS Gabriel Butler APRN.IGNITER CAPPER [address] [place] [address] [place] [address] Referral ID Status Reason Start Date Expiration Date V isits Requested Visits Authorized [id number] Closed Auto-Generate d Referral 01/26/2024 02/24/2025 1 1 [facility] for visit Narrative* Diagnostic Procedure Only (Routine) - Closed Specialty Diagnoses / Procedures Referred By Contac t Referred To Contact XR IMAGING Diagnoses Acute pain of left shoulder Procedures XR SHOULDER GENERAL 3V OR MORE AP/TRUE AP/OTHER LEFT RADEX SHOULDER COMPLETE MINIMUM 2 VIEWS Arsh Polk MD [address] [place] [address] [place] [address] Referral ID Status Reason Start Date Expiration Date V isits Requested Visits Authorized [id number] Closed Auto-Generate d Referral 03/27/2024 04/26/2025 1 1 [facility]* MRI/CT (Routine) - Closed Specialty Diagnoses / Procedures Referred By Contac t Referred To Contact MR IMAGING Diagnoses Parkinson's disease, unspecified whether dyskinesia present, unspecified whether manifestations fluctuate (HCC) Abnormality of gait Altered mental status, unspecified altered mental status type Procedures MRI BRAIN WO IVCON MRI BRAIN BRAIN STEM W/O CONTRAST MATERIAL Arsh Otto Jr., MD [address] [place] [address] Phone: tel: fax: MR IMAGING [facility]95 Referral ID Status Reason Start Date Expiration Date V isits Requested Visits Authorized [id number] Closed Auto-Generate d Referral 10/20/2024 11/19/2025 1 1 [facility] Reason for Referral Status Reason Specialty Diagnoses / Procedures Referre d By Contact Referred To Contact Closed Radiology Diagnoses Aortic valve stenosis, etiology of cardiac valve disease unspecified Procedures CTA CHEST ABDOMEN PELVIS W CONTRAST [place] Lara, DIETARY TECH - IGNITER CAPPER [address] [address] Specialty Diagnoses / Procedures Referred By Contac t Referred To Contact CT IMAGING Diagnoses 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) Lymphadenopathy, abdominal Localized enlarged lymph nodes Procedures CT ABD/PEL WO IVCON CT ABD & PELVIS W/O CONTRAST Arsh Polk MD [facility] [place] [address] Ct Imaging Referral ID Status Reason Start Date Expiration Date Visits Requested Visits Authorized [id number] Authorized Auto-Generat ed Referral 12/10/2021 01/09/2023 1 1 Referral ID Status Reason Start Date Expiration Date V isits Requested Visits Authorized [id number] Closed Auto-Generate d Referral 12/10/2021 01/09/2023 1 1 Specialty Diagnoses / Procedures Referred By Contac t Referred To Contact MR IMAGING Diagnoses Other symptoms and signs involving the nervous system Procedures MRI BRAIN WO IVCON MRI BRAIN BRAIN STEM W/O CONTRAST MATERIAL Kaylee Herrmann PA-C [address] [place] [address] Mr Imaging [facility]95 Referral ID Status Reason Start Date Expiration Date Visits Requested Visits Authorized [id number] Authorized Auto-Generat ed Referral 01/26/2023 02/25/2024 1 1 Specialty Diagnoses / Procedures Referred By Gilma t Referred To Contact [facility] Diagnoses Weakness of both lower extremities Lumbar degenerative disc disease Procedures CONSULT TO PHYSICAL THERAPY PHYSICAL THERAPY EVALUATION [facility] 45 MINS Kaylee Herrmann PA-C [address] [place] [address] [facility] [place] [address] [place] [address] Referral ID Status Reason Start Date Expiration Date Visits Requested Visits Authorized [id number] Authorized PCP Requested Referral Auto-Generate d Referral 01/26/2023 01/26/2024 99 99 Specialty Diagnoses / Procedures Referred By Gilma t Referred To Contact MR IMAGING Diagnoses Other symptoms and signs involving the nervous system Procedures MRI BRAIN WO IVCON MRI BRAIN BRAIN STEM W/O CONTRAST MATERIAL Kaylee Herrmann PA-C [address] [place] [address] Mr Imaging [facility]95 Referral ID Status Reason Start Date Expiration Date V isits Requested Visits Authorized [id number] Closed Auto-Generate d Referral 01/26/2023 02/25/2024 1 1 Specialty Diagnoses / Procedures Referred By Gilma t Referred To Contact Nephrology Diagnoses Stage 3b chronic kidney disease (HCC) Anemia of chronic renal failure, stage 3a (HCC) (HCC) Procedures CONSULT TO NEPHROLOGY OFFICE/OUTPATIENT [facility] 60 MINUTES Arsh Polk MD [address] [place] [address] Referral ID Status Reason Start Date Expiration Date Visits Requested Visits Authorized [id number] Authorized PCP Requested Referral 06/17/2023 06/16/2024 1 1 Specialty Diagnoses / Procedures Referred By Contac t Referred To Contact [facility] Diagnoses Parkinson's disease, unspecified whether dyskinesia present, unspecified whether manifestations fluctuate (HCC) Weakness of both lower extremities Lumbar degenerative disc disease Sciatica of right side Neuropathy Abnormality of gait Procedures CONSULT TO ASSURANCE SENIOR OCCUPATIONAL THERAPY EVAL [facility] 60 [place] [address] [place] [address] [address] [place] [address] [address] Referral ID Status Reason Start Date Expiration Date Visits Requested Visits Authorized [id number] Authorized PCP Requested Referral Auto-Generate d Referral 09/06/2023 09/05/2024 99 99 Specialty Diagnoses / Procedures Referred By Contac t Referred To Contact [facility] Diagnoses Parkinson's disease, unspecified whether dyskinesia present, unspecified whether manifestations fluctuate (HCC) Weakness of both lower extremities Lumbar degenerative disc disease Sciatica of right side Neuropathy Abnormality of gait Procedures CONSULT TO PHYSICAL THERAPY PHYSICAL THERAPY EVALUATION [facility] 45 MINS Arsh Otto Jr., MD [facility] [address] [address] Referral ID Status Reason Start Date Expiration Date Visits Requested Visits Authorized [id number] Authorized PCP Requested Referral Auto-Generate d Referral 09/06/2023 09/05/2024 99 99 Specialty Diagnoses / Procedures Referred By Contac t Referred To Contact Hematology Diagnoses Anemia, unspecified type Procedures CONSULT TO HEMATOLOGY OFFICE/OUTPATIENT [facility] 60 MINUTES Arsh Polk MD [address] [place] [address] Referral ID Status Reason Start Date Expiration Date Visits Requested Visits Authorized [id number] Authorized PCP Requested Referral 11/08/2023 11/07/2024 1 1 Specialty Diagnoses / Procedures Referred By Contac t Referred To Contact [facility] Diagnoses Parkinson's disease, unspecified whether dyskinesia present, unspecified whether manifestations fluctuate (HCC) Abnormality of gait Procedures CONSULT TO PHYSICAL THERAPY PHYSICAL THERAPY EVALUATION [facility] 45 MINS Arsh Otto Jr., MD [address] [place] [address] [facility] [place] [address] [place] [id number] Referral ID Status Reason Start Date Expiration Date Visits Requested Visits Authorized [id number] Authorized PCP Requested Referral Auto-Generate d Referral 4 03/27/2025 99 99 Specialty Diagnoses / Procedures Referred By Contac t Referred To Contact MR IMAGING Diagnoses Acute pain of left shoulder due to trauma Procedures MRI SHOULDER WO IVCON LEFT MRI ANY JT UPPER EXTREMITY W/O CONTRAST MATRL Arsh Otto Jr., MD [address] [place] [address] Mr Imaging [facility]95 Referral ID Status Reason Start Date Expiration Date Visits Requested Visits Authorized [id number] Authorized Auto-Generat ed Referral 4 04/26/2025 1 1 Specialty Diagnoses / Procedures Referred By Contac t Referred To Contact MR IMAGING Diagnoses Spinal stenosis of lumbar region with neurogenic claudication Procedures MRI LUMBAR SPINE WO IVCON MRI SPINAL CANAL LUMBAR W/O CONTRAST MATERIAL Arsh Otto Jr., MD [address] [place] [address] Mr Imaging [facility]95 Referral ID Status Reason Start Date Expiration Date Visits Requested Visits Authorized [id number] Authorized Auto-Generat ed Referral 4 04/26/2025 1 1 Specialty Diagnoses / Procedures Referred By Contac t Referred To Contact Orthopedics Diagnoses Other closed nondisplaced fracture of proximal end of humerus, unspecified laterality, initial encounter Procedures CONSULT TO ORTHOPAEDICS OFFICE/OUTPATIENT [facility] 60 MINUTES Arsh Polk MD [address] [place] [address] Referral ID Status Reason Start Date Expiration Date Visits Requested Visits Authorized [id number] Authorized PCP Requested Referral 4 03/30/2025 1 1 Referral ID Status Reason Start Date Expiration Date V isits Requested Visits Authorized [id number] Closed Auto-Generate d Referral 03/27/2024 04/26/2025 1 1 Referral ID Status Reason Start Date Expiration Date V isits Requested Visits Authorized [id number] Closed Auto-Generate d Referral 03/27/2024 04/26/2025 1 1 Advance Directives No Advanced Directives Records FoundDocuments on File Type Date Recorded Patient Auto Camp Attendant Expl anation ACP-Advance Directive 10/03/2020 12:00 AM Latest Code Status on File Code Status Date Activated Date Inactivated Comments Full Code 10/16/2020 10:08 AM Full Code 10/16/2020 6:42 AM 10/16/2020 9:29 AM Latest Code Status on File Code Status Date Activated Date Inactivated Comments Full Code 10/16/2020 10:08 AM 10/17/2020 5:24 PM Documents on File Type Date Recorded Patient Auto Camp Attendant Expl anation Advance Directive(s) 10/02/2015 6:41 AM Advance Directive(s) 09/10/2015 12:38 PM Advance Directive(s) 09/03/2015 9:15 AM Advance Directive Response Recorded Date/ Time Advance Directives Yes August 14 7:01am Living Will Yes August 14, 2020 7:01am Power of [employer] Advanced Operator Maintainer Yes August 14 7:01am Documents on File Type Date Recorded Patient Auto Camp Attendant Expl anation Advance Directive(s) 10/02/2015 6:41 AM Advance Directive(s) 09/10/2015 12:38 PM Advance Directive(s) 09/03/2015 9:15 AM Advance Directive Response Recorded Date/ Time Name of Medical Power of [employer] Advanced Operator Maintainer November 11, 2021 12:24pm Advance Directives Yes August 14 7:01am Living Will Yes November 11, 2021 1 2:24pm Power of [employer] Advanced Operator Maintainer Yes November 11, 2021 12:24pm Advance Directive Response Recorded Date/ Time Advance Directives Yes August 14 6:01am Living Will Yes November 11, 2021 1 1:24am Power of [employer] Advanced Operator Maintainer Yes November 11, 2021 11:24am Advance Directive Response Recorded Date/ Time Advance Directives Yes August 14 7:01am Living Will Yes November 11, 2021 1 2:24pm Power of [employer] Advanced Operator Maintainer Yes November 11, 2021 12:24pm Documents on File Type Date Recorded Patient Auto Camp Attendant Expl anation Advance Directive(s) 12/04/2022 11:42 AM Documents on File Type Date Recorded Patient Auto Camp Attendant Expl anation Advance Directive(s) 12/04/2022 11:42 AM Advance Directive Response Recorded Date/ Time Living Will Yes November 11, 2021 1 2:24pm Do you have a Healthcare Power of [employer] Advanced Operator Maintainer? Yes November 11, 2021 12:24pm Do you have a Healthcare Power of [employer] Advanced Operator Maintainer? Yes September 03, 2024 10:53am Name of Medical Power of [employer] Advanced Operator Maintainer September 03, 2024 10:53am Advance Directives Yes August 14 7:01am Summary Purpose Family History No Family History Records Found Relationship Condition Age at Onset Recorded Date/T alana mother Cardiac disease Unknown father Cardiac disease Unknown brother Cardiac disease Unknown Chief Complaint and Reason for Visit Chief Complaint ANEMIA IBS VALVE REPLACEMENT EVAL *KATRINA* 6 M FU, Needs EKG Reason for Visit Anemia 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 CHF (congestive heart failure), NYHA class III History of transcatheter aortic valve replacement (TAVR) HLD (hyperlipidemia) Chief Complaint ANEMIA IBS VALVE REPLACEMENT EVAL *KATRINA* 6 M FU, Needs EKG EORDER Reason for Visit Anemia 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 CHF (congestive heart failure), NYHA class III History of transcatheter aortic valve replacement (TAVR) HLD (hyperlipidemia) Encounter for screening colonoscopy Chief Complaint EORDER 2 WK FU 4 M FU IRINEO Reason for Visit Constipation Tubular adenoma of colon Obstructive sleep apnea Atherosclerotic heart disease of [place] coronary artery without angina pectoris CHF (congestive heart failure), NYHA class III History of transcatheter aortic valve replacement (TAVR) HLD (hyperlipidemia) Hypersomnolence Chief Complaint EORDER 2 WK FU 4 M FU IRINEO IRINEO Reason for Visit Constipation Tubular adenoma of colon Obstructive sleep apnea Atherosclerotic heart disease of [place] coronary artery without angina pectoris CHF (congestive heart failure), NYHA class III History of transcatheter aortic valve replacement (TAVR) HLD (hyperlipidemia) Hypersomnolence Chief Complaint IRINEO IRINEO IRINEO Chief Complaint [place] Chief Complaint CKD3 Chief Complaint Admit Date S/P [facility] 05/19August 09, 2024 12:4 5pm PAROXYSMAL A-FIB August 31, 2024 10: 51am PAROXYSMAL A-FIB August 31, 2024 11: 12am CHEST PAIN September 03, 2024 10: 43am 1 Y FU November 14, 2024 11:06 am Reason for Visit Admit Date Atherosclerotic heart diseas e of [place] coronary artery without angina pectoris August 09, 2024 12:45pm CHF (congestive heart failure), NYHA cla ss III August 09, 2024 12:45pm History of transcatheter aortic valve re placement (TAVR) August 09, 2024 12:45pm HLD (hyperlipidemia) August 09, 2024 12: 45pm Paroxysmal atrial fibrillation with RVR August 09, 2024 12:45pm Parkinson disease November 14, 2024 11:06 am Atherosclerotic heart diseas e of [place] coronary artery without angina pectoris November 14, 2024 11:06am CHF (congestive heart failure), NYHA cla ss III November 14, 2024 11:06am History of transcatheter aortic valve re placement (TAVR) November 14, 2024 11:06am HLD (hyperlipidemia) November 14, 2024 11:0 6am Paroxysmal atrial fibrillation with RVR November 14, 2024 11:06am Health Concerns Infection Onset Date Last Indicated Resolved Time COVID-19 Rule-Out 07/09/2022 07/09/2022 Additional Source Comments Ordered Prescriptions (unrec ognized section and content) Prescription Sig Dispensed Refills Start Date End Da te metFORMIN (GLUCOPHAGE) 1000 MG tablet Take 2 tablets by mouth daily (with breakfast) Resume 10/18/2020 60 tablet 3 10/17/2020 Scheduled Active and Recently Administ ered Medications (unrecognized section and content) Medication Order 10/15/2020 10/16/2020 10/17/2020 aspirin EC tablet 81 mg 81 mg, Oral, DAILY, First dose on Wed10/17/20 at 0900, Do not crush or break. 0756 (Given - Provider: Chelsy Granados RN) atorvastatin (LIPITOR) tablet 40 mg 40 mg, Oral, DAILY, First dose on Wed10/16/20 at 2100 2013 (Given - Provider: Yocasta Barr RN) 2100 (Due) clopidogrel (PLAVIX) tablet 75 mg 75 mg, Oral, DAILY, First dose on Wed10/17/20 at 0900 0756 (Given - Provider: Chelsy Granados RN) EPINEPHrine (EPINEPHrine HCL) 5 mg in dextrose 5 % 250 mL infusion 1-30 mcg/min (3-90 mL/hr), Intravenous, at 3-90 mL/hr, ONCE, On Wed10/16/20 at 0815, For 1 dose, Medication for administration in Operating Room 1109 (Not Given - Provider: Chelsy Granados RN - Reason: Other - Comment: Medication for administration in Operating Room) furosemide (LASIX) tablet 40 mg 40 mg, Oral, DAILY, First dose on Wed10/17/20 at 0900 0756 (Given - Provider: Chelsy Granados RN) gabapentin (NEURONTIN) capsule 100 mg 100 mg, Oral, 2 TIMES DAILY, First dose on Wed10/17/20 at 2100 2100 (Due) linagliptin (TRADJENTA) tablet 5 mg 5 mg, Oral, DAILY, First dose on Wed10/16/20 at 1130 1157 (Given - Provider: Chelsy Granados RN) 0914 (Given - Provider: Chelsy Granados RN) lisinopril (PRINIVIL;ZESTRIL) tablet 5 mg 5 mg, Oral, DAILY, First dose on Wed10/17/20 at 0900 0756 (Given - Provider: Chelsy Granados RN) pantoprazole (PROTONIX) tablet 40 mg 40 mg, Oral, DAILY, First dose on Wed10/16/20 at 1030, Do not crush or break., Post-op 1114 (Given - Provider: Chelsy Granados RN) 0755 (Given - Provider: Chelsy Granados RN) tamsulosin (FLOMAX) capsule 0.4 mg 0.4 mg, Oral, DAILY, First dose on Wed10/17/20 at 0900, Do not crush or break. 0755 (Given - Provider: Chelsy Granados RN) PRN Medication Order 10/15/2020 10/16/2020 10/17/2020 acetaminophen (TYLENOL) tablet 650 mg 650 mg, Oral, EVERY 4 HOURS PRN, Pain Mild (1-3), Fever, Fever >100.5 F (38 C), Starting on Wed10/16/20 at 1008, Maximum dose of acetaminophen is 4000 mg from all sources in 24 hours., Post-op bisacodyl (DULCOLAX) EC tablet 5 mg 5 mg, Oral, DAILY PRN, Constipation, Starting on Wed10/16/20 at 1008, First line therapy for constipation., Post-op ondansetron (ZOFRAN) injection 4 mg 4 mg, Intravenous, EVERY 8 HOURS PRN, Nausea, Starting on Wed10/16/20 at 1008, Post-op perflutren lipid microspheres (DEFINITY) injection 1.65 mg 1.65 mg (1.5 mL), Intravenous, IMG ONCE PRN, Other, Suboptimal Echo Image, Starting on Wed10/16/20 at 0752, For 72 hours, Administer up to 1.65 mg via slow IVP for suboptimal echocardiogram enhancement. May administer as concentrated dose or diluted in 8.5 mL of 0.9% sodium chloride for a total volume of 10 mL. May administer as divided doses to reach optimal image enhancement. perflutren lipid microspheres (DEFINITY) injection 1.65 mg 1.65 mg (1.5 mL), Intravenous, IMG ONCE PRN, Other, Suboptimal Echo Image, Starting on Wed10/16/20 at 0954, For 72 hours, Administer up to 1.65 mg via slow IVP for suboptimal echocardiogram enhancement. May administer as concentrated dose or diluted in 8.5 mL of 0.9% sodium chloride for a total volume of 10 mL. May administer as divided doses to reach optimal image enhancement. 1441 (Given - Provid er: Chelsy Granados RN) sodium chloride flush 0.9 % injection 5-40 mL 5-40 mL, Intravenous, PRN, Line Care, Per Pattern Chain Builder Request, Starting on Wed10/16/20 at 0752, For 72 hours, May use order for Line Care after every IV line use and Agitated Saline Bubble Study. Administration for Bubble Study per piano accompanist request for only. Remove 1 mL 0.9% sodium chloride from 10 mL syringe for creating agitated saline. If following IV push medication, administer flush at same rate as the IV push. Flush volume is determined by type of infusion therapy being given. , For non-viscous solutions use: Peripheral IV = 5 mL Midline or Central Line = 10 mL/lumen For viscous solutions (i.e. blood components, parenteral nutrition, contrast media, or after obtaining blood sample) use: Peripheral IV = 10 mL Midline or Central Line = 20 mL/lumen sodium chloride flush 0.9 % injection 5-40 mL 5-40 mL, Intravenous, PRN, Line Care, Per Pattern Chain Builder Request, Starting on Wed10/16/20 at 0954, For 72 hours, May use order for Line Care after every IV line use and Agitated Saline Bubble Study. Administration for Bubble Study per piano accompanist request for only. Remove 1 mL 0.9% sodium chloride from 10 mL syringe for creating agitated saline. If following IV push medication, administer flush at same rate as the IV push. Flush volume is determined by type of infusion therapy being given. , For non-viscous solutions use: Peripheral IV = 5 mL Midline or Central Line = 10 mL/lumen For viscous solutions (i.e. blood components, parenteral nutrition, contrast media, or after obtaining blood sample) use: Peripheral IV = 10 mL Midline or Central Line = 20 mL/lumen (unrecognized sect ion and content) No Status Records FoundNo Status Records FoundNo Status Records FoundNo Status Records FoundNo Status Records Found INFORMATION SOURCE (unrecogn ized section and content) DATE CREATED AUTHOR 11/06/2020 [facility] DATE CREATED AUTHOR AUTHOR'S ORGANIZ ATION 10/28/2024 [facility] DATE CREATED AUTHOR AUTHOR'S ORGANIZ ATION 02/27/2025 [facility] DATE CREATED AUTHOR AUTHOR'S ORGANIZ ATION 03/03/2025 [facility] DATE CREATED AUTHOR AUTHOR'S ORGANIZ ATION 03/20/2025 [facility] Source Comments (unrecognize d section and content) In the event this informatio n is protected by the Federal Confidentiality of Alcohol and Drug Abuse Patient Records regulations: The Federal rules restrict any use of the information to criminally investigate or prosecute any alcohol or drug abuse patient.[facility] the event this information is protected by the Federal Confidentiality of Alcohol and Drug Abuse Patient Records regulations: The Federal rules restrict any use of the information to criminally investigate or prosecute any alcohol or drug abuse patient.[facility] the event this information is protected by the Federal Confidentiality of Alcohol and Drug Abuse Patient Records regulations: The Federal rules restrict any use of the information to criminally investigate or prosecute any alcohol or drug abuse patient.[facility] the event this information is protected by the Federal Confidentiality of Alcohol and Drug Abuse Patient Records regulations: The Federal rules restrict any use of the information to criminally investigate or prosecute any alcohol or drug abuse patient.[facility] the event this information is protected by the Federal Confidentiality of Alcohol and Drug Abuse Patient Records regulations: The Federal rules restrict any use of the information to criminally investigate or prosecute any alcohol or drug abuse patient.[facility] CenterIn the event this information is protected by the Federal Confidentiality of Alcohol and Drug Abuse Patient Records regulations: The Federal rules restrict any use of the information to criminally investigate or prosecute any alcohol or drug abuse patient.[facility] CenterIn the event this information is protected by the Federal Confidentiality of Alcohol and Drug Abuse Patient Records regulations: The Federal rules restrict any use of the information to criminally investigate or prosecute any alcohol or drug abuse patient.[facility] CenterIn the event this information is protected by the Federal Confidentiality of Alcohol and Drug Abuse Patient Records regulations: The Federal rules restrict any use of the information to criminally investigate or prosecute any alcohol or drug abuse patient.[facility] CenterIn the event this information is protected by the Federal Confidentiality of Alcohol and Drug Abuse Patient Records regulations: The Federal rules restrict any use of the information to criminally investigate or prosecute any alcohol or drug abuse patient.[facility] CenterIn the event this information is protected by the Federal Confidentiality of Alcohol and Drug Abuse Patient Records regulations: The Federal rules restrict any use of the information to criminally investigate or prosecute any alcohol or drug abuse patient.[facility] CenterIn the event this information is protected by the Federal Confidentiality of Alcohol and Drug Abuse Patient Records regulations: The Federal rules restrict any use of the information to criminally investigate or prosecute any alcohol or drug abuse patient.[facility] CenterIn the event this information is protected by the Federal Confidentiality of Alcohol and Drug Abuse Patient Records regulations: The Federal rules restrict any use of the information to criminally investigate or prosecute any alcohol or drug abuse patient.[facility] CenterIn the event this information is protected by the Federal Confidentiality of Alcohol and Drug Abuse Patient Records regulations: The Federal rules restrict any use of the information to criminally investigate or prosecute any alcohol or drug abuse patient.[facility]In the event this information is protected by the Federal Confidentiality of Alcohol and Drug Abuse Patient Records regulations: The Federal rules restrict any use of the information to criminally investigate or prosecute any alcohol or drug abuse patient.[facility]In the event this information is protected by the Federal Confidentiality of Alcohol and Drug Abuse Patient Records regulations: The Federal rules restrict any use of the information to criminally investigate or prosecute any alcohol or drug abuse patient.[facility]In the event this information is protected by the Federal Confidentiality of Alcohol and Drug Abuse Patient Records regulations: The Federal rules restrict any use of the information to criminally investigate or prosecute any alcohol or drug abuse patient.[facility] CenterIn the event this information is protected by the Federal Confidentiality of Alcohol and Drug Abuse Patient Records regulations: The Federal rules restrict any use of the information to criminally investigate or prosecute any alcohol or drug abuse patient.[facility] CenterIn the event this information is protected by the Federal Confidentiality of Alcohol and Drug Abuse Patient Records regulations: The Federal rules restrict any use of the information to criminally investigate or prosecute any alcohol or drug abuse patient.[facility] CenterIn the event this information is protected by the Federal Confidentiality of Alcohol and Drug Abuse Patient Records regulations: The Federal rules restrict any use of the information to criminally investigate or prosecute any alcohol or drug abuse patient.[facility] CenterIn the event this information is protected by the Federal Confidentiality of Alcohol and Drug Abuse Patient Records regulations: The Federal rules restrict any use of the information to criminally investigate or prosecute any alcohol or drug abuse patient.[facility] CenterIn the event this information is protected by the Federal Confidentiality of Alcohol and Drug Abuse Patient Records regulations: The Federal rules restrict any use of the information to criminally investigate or prosecute any alcohol or drug abuse patient.[facility]In the event this information is protected by the Federal Confidentiality of Alcohol and Drug Abuse Patient Records regulations: The Federal rules restrict any use of the information to criminally investigate or prosecute any alcohol or drug abuse patient.[facility] CenterIn the event this information is protected by the Federal Confidentiality of Alcohol and Drug Abuse Patient Records regulations: The Federal rules restrict any use of the information to criminally investigate or prosecute any alcohol or drug abuse patient.[facility] CenterIn the event this information is protected by the Federal Confidentiality of Alcohol and Drug Abuse Patient Records regulations: The Federal rules restrict any use of the information to criminally investigate or prosecute any alcohol or drug abuse patient.[facility] CenterIn the event this information is protected by the Federal Confidentiality of Alcohol and Drug Abuse Patient Records regulations: The Federal rules restrict any use of the information to criminally investigate or prosecute any alcohol or drug abuse patient.[facility] CenterIn the event this information is protected by the Federal Confidentiality of Alcohol and Drug Abuse Patient Records regulations: The Federal rules restrict any use of the information to criminally investigate or prosecute any alcohol or drug abuse patient.[facility] CenterIn the event this information is protected by the Federal Confidentiality of Alcohol and Drug Abuse Patient Records regulations: The Federal rules restrict any use of the information to criminally investigate or prosecute any alcohol or drug abuse patient.[facility] CenterIn the event this information is protected by the Federal Confidentiality of Alcohol and Drug Abuse Patient Records regulations: The Federal rules restrict any use of the information to criminally investigate or prosecute any alcohol or drug abuse patient.[facility] CenterIn the event this information is protected by the Federal Confidentiality of Alcohol and Drug Abuse Patient Records regulations: The Federal rules restrict any use of the information to criminally investigate or prosecute any alcohol or drug abuse patient.[facility] CenterIn the event this information is protected by the Federal Confidentiality of Alcohol and Drug Abuse Patient Records regulations: The Federal rules restrict any use of the information to criminally investigate or prosecute any alcohol or drug abuse patient.[facility] CenterIn the event this information is protected by the Federal Confidentiality of Alcohol and Drug Abuse Patient Records regulations: The Federal rules restrict any use of the information to criminally investigate or prosecute any alcohol or drug abuse patient.[facility] CenterIn the event this information is protected by the Federal Confidentiality of Alcohol and Drug Abuse Patient Records regulations: The Federal rules restrict any use of the information to criminally investigate or prosecute any alcohol or drug abuse patient.[facility]In the event this information is protected by the Federal Confidentiality of Alcohol and Drug Abuse Patient Records regulations: The Federal rules restrict any use of the information to criminally investigate or prosecute any alcohol or drug abuse patient.[facility] CenterIn the event this information is protected by the Federal Confidentiality of Alcohol and Drug Abuse Patient Records regulations: The Federal rules restrict any use of the information to criminally investigate or prosecute any alcohol or drug abuse patient.[facility]In the event this information is protected by the Federal Confidentiality of Alcohol and Drug Abuse Patient Records regulations: The Federal rules restrict any use of the information to criminally investigate or prosecute any alcohol or drug abuse patient.[facility]In the event this information is protected by the Federal Confidentiality of Alcohol and Drug Abuse Patient Records regulations: The Federal rules restrict any use of the information to criminally investigate or prosecute any alcohol or drug abuse patient.[facility]In the event this information is protected by the Federal Confidentiality of Alcohol and Drug Abuse Patient Records regulations: The Federal rules restrict any use of the information to criminally investigate or prosecute any alcohol or drug abuse patient.[facility]In the event this information is protected by the Federal Confidentiality of Alcohol and Drug Abuse Patient Records regulations: The Federal rules restrict any use of the information to criminally investigate or prosecute any alcohol or drug abuse patient.[facility]In the event this information is protected by the Federal Confidentiality of Alcohol and Drug Abuse Patient Records regulations: The Federal rules restrict any use of the information to criminally investigate or prosecute any alcohol or drug abuse patient.[facility]In the event this information is protected by the Federal Confidentiality of Alcohol and Drug Abuse Patient Records regulations: The Federal rules restrict any use of the information to criminally investigate or prosecute any alcohol or drug abuse patient.[facility]In the event this information is protected by the Federal Confidentiality of Alcohol and Drug Abuse Patient Records regulations: The Federal rules restrict any use of the information to criminally investigate or prosecute any alcohol or drug abuse patient.[facility]In the event this information is protected by the Federal Confidentiality of Alcohol and Drug Abuse Patient Records regulations: The Federal rules restrict any use of the information to criminally investigate or prosecute any alcohol or drug abuse patient.[facility]In the event this information is protected by the Federal Confidentiality of Alcohol and Drug Abuse Patient Records regulations: The Federal rules restrict any use of the information to criminally investigate or prosecute any alcohol or drug abuse patient.[facility]In the event this information is protected by the Federal Confidentiality of Alcohol and Drug Abuse Patient Records regulations: The Federal rules restrict any use of the information to criminally investigate or prosecute any alcohol or drug abuse patient.[facility]In the event this information is protected by the Federal Confidentiality of Alcohol and Drug Abuse Patient Records regulations: The Federal rules restrict any use of the information to criminally investigate or prosecute any alcohol or drug abuse patient.[facility]In the event this information is protected by the Federal Confidentiality of Alcohol and Drug Abuse Patient Records regulations: The Federal rules restrict any use of the information to criminally investigate or prosecute any alcohol or drug abuse patient.[facility]In the event this information is protected by the Federal Confidentiality of Alcohol and Drug Abuse Patient Records regulations: The Federal rules restrict any use of the information to criminally investigate or prosecute any alcohol or drug abuse patient.[facility]In the event this information is protected by the Federal Confidentiality of Alcohol and Drug Abuse Patient Records regulations: The Federal rules restrict any use of the information to criminally investigate or prosecute any alcohol or drug abuse patient.[facility]In the event this information is protected by the Federal Confidentiality of Alcohol and Drug Abuse Patient Records regulations: The Federal rules restrict any use of the information to criminally investigate or prosecute any alcohol or drug abuse patient.[facility]In the event this information is protected by the Federal Confidentiality of Alcohol and Drug Abuse Patient Records regulations: The Federal rules restrict any use of the information to criminally investigate or prosecute any alcohol or drug abuse patient.[facility]In the event this information is protected by the Federal Confidentiality of Alcohol and Drug Abuse Patient Records regulations: The Federal rules restrict any use of the information to criminally investigate or prosecute any alcohol or drug abuse patient.[facility]In the event this information is protected by the Federal Confidentiality of Alcohol and Drug Abuse Patient Records regulations: The Federal rules restrict any use of the information to criminally investigate or prosecute any alcohol or drug abuse patient.[facility]In the event this information is protected by the Federal Confidentiality of Alcohol and Drug Abuse Patient Records regulations: The Federal rules restrict any use of the information to criminally investigate or prosecute any alcohol or drug abuse patient.[facility]In the event this information is protected by the Federal Confidentiality of Alcohol and Drug Abuse Patient Records regulations: The Federal rules restrict any use of the information to criminally investigate or prosecute any alcohol or drug abuse patient.[facility]In the event this information is protected by the Federal Confidentiality of Alcohol and Drug Abuse Patient Records regulations: The Federal rules restrict any use of the information to criminally investigate or prosecute any alcohol or drug abuse patient.[facility]In the event this information is protected by the Federal Confidentiality of Alcohol and Drug Abuse Patient Records regulations: The Federal rules restrict any use of the information to criminally investigate or prosecute any alcohol or drug abuse patient.[facility]In the event this information is protected by the Federal Confidentiality of Alcohol and Drug Abuse Patient Records regulations: The Federal rules restrict any use of the information to criminally investigate or prosecute any alcohol or drug abuse patient.[facility]In the event this information is protected by the Federal Confidentiality of Alcohol and Drug Abuse Patient Records regulations: The Federal rules restrict any use of the information to criminally investigate or prosecute any alcohol or drug abuse patient.[facility]In the event this information is protected by the Federal Confidentiality of Alcohol and Drug Abuse Patient Records regulations: The Federal rules restrict any use of the information to criminally investigate or prosecute any alcohol or drug abuse patient.[facility]In the event this information is protected by the Federal Confidentiality of Alcohol and Drug Abuse Patient Records regulations: The Federal rules restrict any use of the information to criminally investigate or prosecute any alcohol or drug abuse patient.[facility]In the event this information is protected by the Federal Confidentiality of Alcohol and Drug Abuse Patient Records regulations: The Federal rules restrict any use of the information to criminally investigate or prosecute any alcohol or drug abuse patient.[facility]In the event this information is protected by the Federal Confidentiality of Alcohol and Drug Abuse Patient Records regulations: The Federal rules restrict any use of the information to criminally investigate or prosecute any alcohol or drug abuse patient.[facility]In the event this information is protected by the Federal Confidentiality of Alcohol and Drug Abuse Patient Records regulations: The Federal rules restrict any use of the information to criminally investigate or prosecute any alcohol or drug abuse patient.[facility]In the event this information is protected by the Federal Confidentiality of Alcohol and Drug Abuse Patient Records regulations: The Federal rules restrict any use of the information to criminally investigate or prosecute any alcohol or drug abuse patient.[facility]In the event this information is protected by the Federal Confidentiality of Alcohol and Drug Abuse Patient Records regulations: The Federal rules restrict any use of the information to criminally investigate or prosecute any alcohol or drug abuse patient.[facility]In the event this information is protected by the Federal Confidentiality of Alcohol and Drug Abuse Patient Records regulations: The Federal rules restrict any use of the information to criminally investigate or prosecute any alcohol or drug abuse patient.[facility]In the event this information is protected by the Federal Confidentiality of Alcohol and Drug Abuse Patient Records regulations: The Federal rules restrict any use of the information to criminally investigate or prosecute any alcohol or drug abuse patient.[facility]In the event this information is protected by the Federal Confidentiality of Alcohol and Drug Abuse Patient Records regulations: The Federal rules restrict any use of the information to criminally investigate or prosecute any alcohol or drug abuse patient.[facility]In the event this information is protected by the Federal Confidentiality of Alcohol and Drug Abuse Patient Records regulations: The Federal rules restrict any use of the information to criminally investigate or prosecute any alcohol or drug abuse patient.[facility]In the event this information is protected by the Federal Confidentiality of Alcohol and Drug Abuse Patient Records regulations: The Federal rules restrict any use of the information to criminally investigate or prosecute any alcohol or drug abuse patient.[facility]In the event this information is protected by the Federal Confidentiality of Alcohol and Drug Abuse Patient Records regulations: The Federal rules restrict any use of the information to criminally investigate or prosecute any alcohol or drug abuse patient.[facility]In the event this information is protected by the Federal Confidentiality of Alcohol and Drug Abuse Patient Records regulations: The Federal rules restrict any use of the information to criminally investigate or prosecute any alcohol or drug abuse patient.[facility]In the event this information is protected by the Federal Confidentiality of Alcohol and Drug Abuse Patient Records regulations: The Federal rules restrict any use of the information to criminally investigate or prosecute any alcohol or drug abuse patient.[facility]In the event this information is protected by the Federal Confidentiality of Alcohol and Drug Abuse Patient Records regulations: The Federal rules restrict any use of the information to criminally investigate or prosecute any alcohol or drug abuse patient.[facility]In the event this information is protected by the Federal Confidentiality of Alcohol and Drug Abuse Patient Records regulations: The Federal rules restrict any use of the information to criminally investigate or prosecute any alcohol or drug abuse patient.[facility]In the event this information is protected by the Federal Confidentiality of Alcohol and Drug Abuse Patient Records regulations: The Federal rules restrict any use of the information to criminally investigate or prosecute any alcohol or drug abuse patient.[facility]In the event this information is protected by the Federal Confidentiality of Alcohol and Drug Abuse Patient Records regulations: The Federal rules restrict any use of the information to criminally investigate or prosecute any alcohol or drug abuse patient.[facility]In the event this information is protected by the Federal Confidentiality of Alcohol and Drug Abuse Patient Records regulations: The Federal rules restrict any use of the information to criminally investigate or prosecute any alcohol or drug abuse patient.[facility]In the event this information is protected by the Federal Confidentiality of Alcohol and Drug Abuse Patient Records regulations: The Federal rules restrict any use of the information to criminally investigate or prosecute any alcohol or drug abuse patient.[facility]In the event this information is protected by the Federal Confidentiality of Alcohol and Drug Abuse Patient Records regulations: The Federal rules restrict any use of the information to criminally investigate or prosecute any alcohol or drug abuse patient.[facility]In the event this information is protected by the Federal Confidentiality of Alcohol and Drug Abuse Patient Records regulations: The Federal rules restrict any use of the information to criminally investigate or prosecute any alcohol or drug abuse patient.[facility]In the event this information is protected by the Federal Confidentiality of Alcohol and Drug Abuse Patient Records regulations: The Federal rules restrict any use of the information to criminally investigate or prosecute any alcohol or drug abuse patient.[facility]In the event this information is protected by the Federal Confidentiality of Alcohol and Drug Abuse Patient Records regulations: The Federal rules restrict any use of the information to criminally investigate or prosecute any alcohol or drug abuse patient.[facility]In the event this information is protected by the Federal Confidentiality of Alcohol and Drug Abuse Patient Records regulations: The Federal rules restrict any use of the information to criminally investigate or prosecute any alcohol or drug abuse patient.[facility]In the event this information is protected by the Federal Confidentiality of Alcohol and Drug Abuse Patient Records regulations: The Federal rules restrict any use of the information to criminally investigate or prosecute any alcohol or drug abuse patient.[facility]In the event this information is protected by the Federal Confidentiality of Alcohol and Drug Abuse Patient Records regulations: The Federal rules restrict any use of the information to criminally investigate or prosecute any alcohol or drug abuse patient.[facility]In the event this information is protected by the Federal Confidentiality of Alcohol and Drug Abuse Patient Records regulations: The Federal rules restrict any use of the information to criminally investigate or prosecute any alcohol or drug abuse patient.[facility] CenterIn the event this information is protected by the Federal Confidentiality of Alcohol and Drug Abuse Patient Records regulations: The Federal rules restrict any use of the information to criminally investigate or prosecute any alcohol or drug abuse patient.[facility] CenterIn the event this information is protected by the Federal Confidentiality of Alcohol and Drug Abuse Patient Records regulations: The Federal rules restrict any use of the information to criminally investigate or prosecute any alcohol or drug abuse patient.[facility] CenterIn the event this information is protected by the Federal Confidentiality of Alcohol and Drug Abuse Patient Records regulations: The Federal rules restrict any use of the information to criminally investigate or prosecute any alcohol or drug abuse patient.[facility] CenterIn the event this information is protected by the Federal Confidentiality of Alcohol and Drug Abuse Patient Records regulations: The Federal rules restrict any use of the information to criminally investigate or prosecute any alcohol or drug abuse patient.[facility] CenterIn the event this information is protected by the Federal Confidentiality of Alcohol and Drug Abuse Patient Records regulations: The Federal rules restrict any use of the information to criminally investigate or prosecute any alcohol or drug abuse patient.[facility] CenterIn the event this information is protected by the Federal Confidentiality of Alcohol and Drug Abuse Patient Records regulations: The Federal rules restrict any use of the information to criminally investigate or prosecute any alcohol or drug abuse patient.[facility] CenterIn the event this information is protected by the Federal Confidentiality of Alcohol and Drug Abuse Patient Records regulations: The Federal rules restrict any use of the information to criminally investigate or prosecute any alcohol or drug abuse patient.[facility] CenterIn the event this information is protected by the Federal Confidentiality of Alcohol and Drug Abuse Patient Records regulations: The Federal rules restrict any use of the information to criminally investigate or prosecute any alcohol or drug abuse patient.[facility] CenterIn the event this information is protected by the Federal Confidentiality of Alcohol and Drug Abuse Patient Records regulations: The Federal rules restrict any use of the information to criminally investigate or prosecute any alcohol or drug abuse patient.[facility] CenterIn the event this information is protected by the Federal Confidentiality of Alcohol and Drug Abuse Patient Records regulations: The Federal rules restrict any use of the information to criminally investigate or prosecute any alcohol or drug abuse patient.[facility] CenterIn the event this information is protected by the Federal Confidentiality of Alcohol and Drug Abuse Patient Records regulations: The Federal rules restrict any use of the information to criminally investigate or prosecute any alcohol or drug abuse patient.[facility] CenterIn the event this information is protected by the Federal Confidentiality of Alcohol and Drug Abuse Patient Records regulations: The Federal rules restrict any use of the information to criminally investigate or prosecute any alcohol or drug abuse patient.[facility] CenterIn the event this information is protected by the Federal Confidentiality of Alcohol and Drug Abuse Patient Records regulations: The Federal rules restrict any use of the information to criminally investigate or prosecute any alcohol or drug abuse patient.[facility] CenterIn the event this information is protected by the Federal Confidentiality of Alcohol and Drug Abuse Patient Records regulations: The Federal rules restrict any use of the information to criminally investigate or prosecute any alcohol or drug abuse patient.[facility] CenterIn the event this information is protected by the Federal Confidentiality of Alcohol and Drug Abuse Patient Records regulations: The Federal rules restrict any use of the information to criminally investigate or prosecute any alcohol or drug abuse patient.[facility] CenterIn the event this information is protected by the Federal Confidentiality of Alcohol and Drug Abuse Patient Records regulations: The Federal rules restrict any use of the information to criminally investigate or prosecute any alcohol or drug abuse patient.[facility] CenterIn the event this information is protected by the Federal Confidentiality of Alcohol and Drug Abuse Patient Records regulations: The Federal rules restrict any use of the information to criminally investigate or prosecute any alcohol or drug abuse patient.[facility] CenterIn the event this information is protected by the Federal Confidentiality of Alcohol and Drug Abuse Patient Records regulations: The Federal rules restrict any use of the information to criminally investigate or prosecute any alcohol or drug abuse patient.[facility] CenterIn the event this information is protected by the Federal Confidentiality of Alcohol and Drug Abuse Patient Records regulations: The Federal rules restrict any use of the information to criminally investigate or prosecute any alcohol or drug abuse patient.[facility] CenterIn the event this information is protected by the Federal Confidentiality of Alcohol and Drug Abuse Patient Records regulations: The Federal rules restrict any use of the information to criminally investigate or prosecute any alcohol or drug abuse patient.[facility] CenterIn the event this information is protected by the Federal Confidentiality of Alcohol and Drug Abuse Patient Records regulations: The Federal rules restrict any use of the information to criminally investigate or prosecute any alcohol or drug abuse patient.[facility] CenterIn the event this information is protected by the Federal Confidentiality of Alcohol and Drug Abuse Patient Records regulations: The Federal rules restrict any use of the information to criminally investigate or prosecute any alcohol or drug abuse patient.[facility] CenterIn the event this information is protected by the Federal Confidentiality of Alcohol and Drug Abuse Patient Records regulations: The Federal rules restrict any use of the information to criminally investigate or prosecute any alcohol or drug abuse patient.[facility] CenterIn the event this information is protected by the Federal Confidentiality of Alcohol and Drug Abuse Patient Records regulations: The Federal rules restrict any use of the information to criminally investigate or prosecute any alcohol or drug abuse patient.[facility] CenterIn the event this information is protected by the Federal Confidentiality of Alcohol and Drug Abuse Patient Records regulations: The Federal rules restrict any use of the information to criminally investigate or prosecute any alcohol or drug abuse patient.[facility] CenterIn the event this information is protected by the Federal Confidentiality of Alcohol and Drug Abuse Patient Records regulations: The Federal rules restrict any use of the information to criminally investigate or prosecute any alcohol or drug abuse patient.[facility] CenterIn the event this information is protected by the Federal Confidentiality of Alcohol and Drug Abuse Patient Records regulations: The Federal rules restrict any use of the information to criminally investigate or prosecute any alcohol or drug abuse patient.[facility] CenterIn the event this information is protected by the Federal Confidentiality of Alcohol and Drug Abuse Patient Records regulations: The Federal rules restrict any use of the information to criminally investigate or prosecute any alcohol or drug abuse patient.[facility] CenterIn the event this information is protected by the Federal Confidentiality of Alcohol and Drug Abuse Patient Records regulations: The Federal rules restrict any use of the information to criminally investigate or prosecute any alcohol or drug abuse patient.[facility] CenterIn the event this information is protected by the Federal Confidentiality of Alcohol and Drug Abuse Patient Records regulations: The Federal rules restrict any use of the information to criminally investigate or prosecute any alcohol or drug abuse patient.[facility] CenterIn the event this information is protected by the Federal Confidentiality of Alcohol and Drug Abuse Patient Records regulations: The Federal rules restrict any use of the information to criminally investigate or prosecute any alcohol or drug abuse patient.[facility] CenterIn the event this information is protected by the Federal Confidentiality of Alcohol and Drug Abuse Patient Records regulations: The Federal rules restrict any use of the information to criminally investigate or prosecute any alcohol or drug abuse patient.[facility] CenterIn the event this information is protected by the Federal Confidentiality of Alcohol and Drug Abuse Patient Records regulations: The Federal rules restrict any use of the information to criminally investigate or prosecute any alcohol or drug abuse patient.[facility] CenterIn the event this information is protected by the Federal Confidentiality of Alcohol and Drug Abuse Patient Records regulations: The Federal rules restrict any use of the information to criminally investigate or prosecute any alcohol or drug abuse patient.[facility] CenterIn the event this information is protected by the Federal Confidentiality of Alcohol and Drug Abuse Patient Records regulations: The Federal rules restrict any use of the information to criminally investigate or prosecute any alcohol or drug abuse patient.[facility] CenterIn the event this information is protected by the Federal Confidentiality of Alcohol and Drug Abuse Patient Records regulations: The Federal rules restrict any use of the information to criminally investigate or prosecute any alcohol or drug abuse patient.[facility] CenterIn the event this information is protected by the Federal Confidentiality of Alcohol and Drug Abuse Patient Records regulations: The Federal rules restrict any use of the information to criminally investigate or prosecute any alcohol or drug abuse patient.[facility] CenterIn the event this information is protected by the Federal Confidentiality of Alcohol and Drug Abuse Patient Records regulations: The Federal rules restrict any use of the information to criminally investigate or prosecute any alcohol or drug abuse patient.[facility] CenterIn the event this information is protected by the Federal Confidentiality of Alcohol and Drug Abuse Patient Records regulations: The Federal rules restrict any use of the information to criminally investigate or prosecute any alcohol or drug abuse patient.[facility] CenterIn the event this information is protected by the Federal Confidentiality of Alcohol and Drug Abuse Patient Records regulations: The Federal rules restrict any use of the information to criminally investigate or prosecute any alcohol or drug abuse patient.[facility] CenterIn the event this information is protected by the Federal Confidentiality of Alcohol and Drug Abuse Patient Records regulations: The Federal rules restrict any use of the information to criminally investigate or prosecute any alcohol or drug abuse patient.[facility] CenterIn the event this information is protected by the Federal Confidentiality of Alcohol and Drug Abuse Patient Records regulations: The Federal rules restrict any use of the information to criminally investigate or prosecute any alcohol or drug abuse patient.[facility] CenterIn the event this information is protected by the Federal Confidentiality of Alcohol and Drug Abuse Patient Records regulations: The Federal rules restrict any use of the information to criminally investigate or prosecute any alcohol or drug abuse patient.[facility] CenterIn the event this information is protected by the Federal Confidentiality of Alcohol and Drug Abuse Patient Records regulations: The Federal rules restrict any use of the information to criminally investigate or prosecute any alcohol or drug abuse patient.[facility] CenterIn the event this information is protected by the Federal Confidentiality of Alcohol and Drug Abuse Patient Records regulations: The Federal rules restrict any use of the information to criminally investigate or prosecute any alcohol or drug abuse patient.[facility] CenterIn the event this information is protected by the Federal Confidentiality of Alcohol and Drug Abuse Patient Records regulations: The Federal rules restrict any use of the information to criminally investigate or prosecute any alcohol or drug abuse patient.[facility] CenterIn the event this information is protected by the Federal Confidentiality of Alcohol and Drug Abuse Patient Records regulations: The Federal rules restrict any use of the information to criminally investigate or prosecute any alcohol or drug abuse patient.[facility] CenterIn the event this information is protected by the Federal Confidentiality of Alcohol and Drug Abuse Patient Records regulations: The Federal rules restrict any use of the information to criminally investigate or prosecute any alcohol or drug abuse patient.[facility] CenterIn the event this information is protected by the Federal Confidentiality of Alcohol and Drug Abuse Patient Records regulations: The Federal rules restrict any use of the information to criminally investigate or prosecute any alcohol or drug abuse patient.[facility] CenterIn the event this information is protected by the Federal Confidentiality of Alcohol and Drug Abuse Patient Records regulations: The Federal rules restrict any use of the information to criminally investigate or prosecute any alcohol or drug abuse patient.[facility] CenterIn the event this information is protected by the Federal Confidentiality of Alcohol and Drug Abuse Patient Records regulations: The Federal rules restrict any use of the information to criminally investigate or prosecute any alcohol or drug abuse patient.[facility] CenterIn the event this information is protected by the Federal Confidentiality of Alcohol and Drug Abuse Patient Records regulations: The Federal rules restrict any use of the information to criminally investigate or prosecute any alcohol or drug abuse patient.[facility] CenterIn the event this information is protected by the Federal Confidentiality of Alcohol and Drug Abuse Patient Records regulations: The Federal rules restrict any use of the information to criminally investigate or prosecute any alcohol or drug abuse patient.[facility] CenterIn the event this information is protected by the Federal Confidentiality of Alcohol and Drug Abuse Patient Records regulations: The Federal rules restrict any use of the information to criminally investigate or prosecute any alcohol or drug abuse patient.[facility] CenterIn the event this information is protected by the Federal Confidentiality of Alcohol and Drug Abuse Patient Records regulations: The Federal rules restrict any use of the information to criminally investigate or prosecute any alcohol or drug abuse patient.[facility] CenterIn the event this information is protected by the Federal Confidentiality of Alcohol and Drug Abuse Patient Records regulations: The Federal rules restrict any use of the information to criminally investigate or prosecute any alcohol or drug abuse patient.[facility] Reason for Visit (unrecogniz ed section and content) Reason Comments Established Patient Specialty Diagnoses / Procedures Referred By Gilma t Referred To Contact Diagnoses 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) Stage 3b chronic kidney disease (HCC) Josiah Bird, DO [address] [place] [address] [facility] [address] [place] [address] Referral ID Status Reason Start Date Expiration Date V isits Requested Visits Authorized [id number] Authorized 12/02/2023 03/01/2024 [address] Specialty Diagnoses / Procedures Referred By Contac t Referred To Contact CT IMAGING Diagnoses 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) Lymphadenopathy, abdominal Localized enlarged lymph nodes Procedures CT ABD/PEL WO IVCON CT ABD & PELVIS W/O CONTRAST Arsh Polk MD [address] [place] [address] Ct Imaging Referral ID Status Reason Start Date Expiration Date V isits Requested Visits Authorized [id number] Closed Auto-Generate d Referral 12/10/2021 01/09/2023 1 1 Reason Onset Date Comments Refill Request 08/30/2021 Reason Onset Date Comments Refill Request 10/25/2021 Reason Comments Follow Up Reason Comments Follow Up 3 month follow up Reason Comments Medication Problem Reason Comments HSAT Check In (Adult) Reason Onset Date Comments Refill Request 12/06/2021 Reason Comments Follow Up review labs Reason Comments Results Reason Comments Appointment Reason Comments [facility] Sleep Lab requesting records Reason Onset Date Comments Refill Request 03/09/2022 Reason Onset Date Comments Refill Request 04/05/2022 Reason Onset Date Comments Refill Request 05/06/2022 Reason Comments Follow Up Sleep Apnea Needing PSG results from [facility] unsure what is happening there will log in to look for results. Reason Onset Date Comments Refill Request 06/22/2022 Reason Comments Cough Chest congestion, we akness, x4 days. Reason Onset Date Comments Refill Request 07/20/2022 Reason Onset Date Comments Refill Request 07/18/2022 Reason Onset Date Comments Refill Request 07/15/2022 Reason Comments Patient Question Reason Onset Date Comments Refill Request 11/02/2022 Reason Comments Orders Reason Comments Follow Up 6 month follow up Reason Onset Date Comments Refill Request 12/06/2022 Reason Comments New Patient Pt reported improved tremors, x2 wks. Reason Onset Date Comments Refill Request 03/01/2023 Specialty Diagnoses / Procedures Referred By Contac t Referred To Contact MR IMAGING Diagnoses Other symptoms and signs involving the nervous system Procedures MRI BRAIN WO IVCON MRI BRAIN BRAIN STEM W/O CONTRAST MATERIAL Kaylee Herrmann PA-C [address] [id number] [facility] [place] [address] Referral ID Status Reason Start Date Expiration Date V isits Requested Visits Authorized [id number] Closed Auto-Generate d Referral 01/26/2023 02/25/2024 1 1 Reason Onset Date Comments Refill Request 04/05/2023 Reason Comments Results Reason Onset Date Comments Refill Request 07/08/2023 Reason Comments Follow Up Follow up pt reporte d mask concerns, leaks, tremors remained unchanged. Reason Onset Date Comments Refill Request 09/13/2023 Reason Onset Date Comments Refill Request 09/14/2023 Reason Comments Fax over OV from 09/06/23 Reason Comments PAP Therapy Follow Up Reason Onset Date Comments Refill Request 11/03/2023 Reason Onset Date Comments Refill Request 11/14/2023 Reason Comments New Patient Specialty Diagnoses / Procedures Referred By Contac t Referred To Contact Hematology Diagnoses Anemia, unspecified type Procedures CONSULT TO HEMATOLOGY OFFICE/OUTPATIENT NEW HIGH MDM 60 MINUTES Arsh Polk MD [address] [place] [address] Referral ID Status Reason Start Date Expiration Date V isits Requested Visits Authorized [id number] Closed PCP Requested Referral 11/08/2023 11/07/2024 1 1 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 Reason Comments Non-Chemotherapy Treatment Reason Comments Patient Update Reason Onset Date Comments Refill Request 12/18/2023 Reason Comments right rib pain Fell 10 days ago Reason Comments Imm/Inj Specialty Diagnoses / Procedures Referred By Contac t Referred To Contact Diagnoses 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) Procedures DARBEPOETIN SANTOS, NON-ESRD Yenny [address] [place] [phone] [facility] [address] [place] [address] Referral ID Status Reason Start Date Expiration Date V isits Requested Visits Authorized [id number] Authorized 01/24/2024 08/06/2024 99 99 Reason Onset Date Comments Refill Request 03/04/2024 Reason Comments 6 Month Exam Reason Comments New Patient 3 mth follow up for parkinsons & IRINEO Reason Comments Results Arm fracture Specialty Diagnoses / Procedures Referred By Contac t Referred To Contact MR IMAGING Diagnoses Acute pain of left shoulder due to trauma Procedures MRI SHOULDER WO IVCON LEFT MRI ANY JT UPPER EXTREMITY W/O CONTRAST MATRL Arsh Otto Jr., MD [address] [place] [id number] [place] [address] Referral ID Status Reason Start Date Expiration Date V isits Requested Visits Authorized [id number] Closed Auto-Generate d Referral 03/27/2024 04/26/2025 1 1 Specialty Diagnoses / Procedures Referred By Contac t Referred To Contact MR IMAGING Diagnoses Spinal stenosis of lumbar region with neurogenic claudication Procedures MRI LUMBAR SPINE WO IVCON MRI SPINAL CANAL LUMBAR W/O CONTRAST MATERIAL Arsh Otto Jr., MD [address] [place] [id number] [place] [address] Referral ID Status Reason Start Date Expiration Date V isits Requested Visits Authorized [id number] Closed Auto-Generate d Referral 03/27/2024 04/26/2025 1 1 Specialty Diagnoses / Procedures Referred By Contac t Referred To Contact Diagnoses 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) Procedures DARBEPOETIN SANTOS, NON-ESRD Yenny Bill [address] [place] [address] [facility] [address] [place] [address] Reason Comments New Fracture Reason Comments Home Health REquest Reason Comments Home Care Management Reason Comments Home Health Point of Care Results Referral ID Status Reason Start Date Expiration Date V isits Requested Visits Authorized [id number] Authorized 01/24/2024 05/09/2025 99 99 Reason Comments Hospital F/U Reason Onset Date Comments Refill Request 06/02/2024 Reason Comments [facility] HH Order request Reason Comments [facility] HH, verbal orders needed Reason Onset Date Comments Refill Request 06/30/2024 Specialty Diagnoses / Procedures Referred By Contac t Referred To Contact Diagnoses 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) Procedures DARBEPOETIN SANTOS, NON-ESRD Anali Billianna [address] [place] [address] Phone: tel: fax: Hematology/Oncology [address] [place] [address] Phone: tel: fax: Specialty Diagnoses / Procedures Referred By Contac t Referred To Contact Diagnoses 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) Procedures DARBEPOETIN SANTOS, NON-ESRD BillAnaliYenny [address] [place] [address] Phone: tel: fax: Hematology/Oncology [address] [place] [address] Phone: tel: fax: Reason Onset Date Comments Refill Request 08/06/2024 Reason Comments 6 Month Exam Reason Comments Follow Up Following April 10 Hospitalization and Discharge from [facility]. Has Parkinsons and dementia. Specialty Diagnoses / Procedures Referred By Contac t Referred To Contact CT IMAGING Diagnoses Subdural hematoma (HCC) Procedures CT BRAIN WO IVCON CT HEAD/BRAIN W/O CONTRAST MATERIAL Patti Moreira APRN.IGNITER CAPPER [address] [address] Phone: tel: fax: [place] [address] Referral ID Status Reason Start Date Expiration Date V isits Requested Visits Authorized [id number] Closed Auto-Generate d Referral 10/26/2024 11/25/2025 1 1 Reason Comments Established Patient Reason Comments wound on buttocks Reason Comments Pressure Ulcers Reason Comments Home Care Declined Reason Comments Orders Home Health Reason Onset Date Comments Refill Request 12/11/2024 Reason Comments POC Reason Comments Patient Update Home Health Point of Care Results Reason Comments Medicare Wellness Exam Reason Comments Refill Request Care Teams (unrecognized sec tion and content) Machine Design Engineer Relationship Specialty Start Date End Date Arsh Polk MD [address] [facility] [place] [address] PCP - General Family Practice 01/03/15 Machine Design Engineer Relationship Specialty Start Date End Date Arsh Polk MD [address] [facility] [place] [address] PCP - General Family Practice 01/03/15 Machine Design Engineer Relationship Specialty Start Date End Date Arsh Polk MD [address] [place] [address] PCP - General Family Practice 01/03/15 Machine Design Engineer Relationship Specialty Start Date End Date Arsh Polk MD [address] [place] [address] PCP - General Family Practice 01/03/15 Machine Design Engineer Relationship Specialty Start Date End Date Arsh Polk MD [address] [facility] [place] [address] PCP - General Family Practice 01/03/15 Machine Design Engineer Relationship Specialty Start Date End Date Arsh Polk MD [address] [facility] [place] [address] PCP - General Family Practice 01/03/15 Machine Design Engineer Relationship Specialty Start Date End Date Arsh Polk MD [address] [facility] [place] [address] PCP - General Family Practice 01/03/15 Machine Design Engineer Relationship Specialty Start Date End Date Arsh Polk MD [address] [place] [address] PCP - General Family Practice 01/03/15 Machine Design Engineer Relationship Specialty Start Date End Date Arsh Polk MD [address] [facility] [place] [address] PCP - General Family Practice 01/03/15 Machine Design Engineer Relationship Specialty Start Date End Date Arsh Polk MD [address] [facility] [place] [address] PCP - General Family Practice 01/03/15 Machine Design Engineer Relationship Specialty Start Date End Date Arsh Polk MD [address] [facility] [place] [address] PCP - General Family Practice 01/03/15 Machine Design Engineer Relationship Specialty Start Date End Date Arsh Polk MD [address] [facility] [place] [address] PCP - General Family Practice 01/03/15 Machine Design Engineer Relationship Specialty Start Date End Date Arsh Polk MD [address] [facility] [place] [address] PCP - General Family Medicine 01/03/15 Machine Design Engineer Relationship Specialty Start Date End Date Arsh Polk MD [address] [facility] [place] [address] PCP - General Family Medicine 01/03/15 Machine Design Engineer Relationship Specialty Start Date End Date Arsh Polk MD [address] [facility] [place] [address] PCP - General Family Medicine 01/03/15 Machine Design Engineer Relationship Specialty Start Date End Date Arsh Polk MD [address] [facility] [place] [address] PCP - General Family Medicine 01/03/15 Machine Design Engineer Relationship Specialty Start Date End Date Arsh Polk MD [address] [facility] [place] [address] PCP - General Family Medicine 01/03/15 Machine Design Engineer Relationship Specialty Start Date End Date Arsh Polk MD [address] [place] [address] PCP - General Family Medicine 01/03/15 Team Status: Active Member Role Status Dates Dr. Arsh Polk MD Family Provider Active Dr. Arsh Polk MD Primary Care Provider Active Team Status: Inactive Member Role Status Dates Dr. Arsh Polk MD Primary Care Provider, Attending Provider Active Team Status: Inactive Member Role Status Dates Dr. Arsh Polk MD Primary Care Provi dianne, Attending Provider, Referring Provider Active Machine Design Engineer Relationship Specialty Start Date End Date Arsh Polk MD [address] [place] [address] PCP - General Family Medicine 01/03/15 Machine Design Engineer Relationship Specialty Start Date End Date Arsh Polk MD [address] [place] [address] PCP - General Family Medicine 01/03/15 Team Status: Inactive Member Role Status Dates Dr. Arsh Polk MD Primary Care Provider Active Dr. Arsh Otto MD Attending Provider Active Machine Design Engineer Relationship Specialty Start Date End Date Arsh Polk MD [address] [place] [address] PCP - General Family Medicine 01/03/15 Machine Design Engineer Relationship Specialty Start Date End Date Arsh Polk MD [address] [place] [address] PCP - General Family Medicine 01/03/15 Machine Design Engineer Relationship Specialty Start Date End Date Arsh Polk MD [address] [place] [address] PCP - General Family Medicine 01/03/15 Machine Design Engineer Relationship Specialty Start Date End Date Arsh Polk MD [address] [place] [address] PCP - General Family Medicine 01/03/15 Machine Design Engineer Relationship Specialty Start Date End Date Arsh Polk MD [address] [place] [address] PCP - General Family Medicine 01/03/15 Machine Design Engineer Relationship Specialty Start Date End Date Arsh Polk MD [address] [place] [address] PCP - General Family Medicine 01/03/15 Machine Design Engineer Relationship Specialty Start Date End Date Arsh Polk MD [address] [place] [address] PCP - General Family Medicine 01/03/15 Machine Design Engineer Relationship Specialty Start Date End Date Arsh Polk MD [address] [place] [address] PCP - General Family Medicine 01/03/15 Machine Design Engineer Relationship Specialty Start Date End Date Arsh Polk MD [address] [place] [address] PCP - General Family Medicine 01/03/15 Machine Design Engineer Relationship Specialty Start Date End Date Arsh Polk MD [address] [place] [address] PCP - General Family Medicine 01/03/15 Machine Design Engineer Relationship Specialty Start Date End Date Arsh Polk MD [address] [place] [address] PCP - General Family Medicine 01/03/15 Machine Design Engineer Relationship Specialty Start Date End Date Arsh Polk MD [address] [facility], [place] [address] PCP - General Family Medicine 01/03/15 Team Status: Inactive Member Role Status Dates Dr. Arsh Polk MD Primary Care Provider Active Dr. Nakia Laboy DO Attending Provider Active Team Status: Inactive Member Role Status Dates Dr. Arsh Polk MD Primary Care Provider Active Dr. Nakia Laboy DO Attending Provider, Silvestre fink Active Machine Design Engineer Relationship Specialty Start Date End Date Arsh Polk MD [address] [facility], [place] [address] PCP - General Family Medicine 01/03/15 Machine Design Engineer Relationship Specialty Start Date End Date Arsh Polk MD [address] [place] [address] PCP - General Family Medicine 01/03/15 Machine Design Engineer Relationship Specialty Start Date End Date Arsh Polk MD [address] [facility], [place] [address] PCP - General Family Medicine 01/03/15 Machine Design Engineer Relationship Specialty Start Date End Date Arsh Polk MD [address] [facility], [place] [address] PCP - General Family Medicine 01/03/15 Machine Design Engineer Relationship Specialty Start Date End Date Arsh Polk MD [address] [facility], [place] [address] PCP - General Family Medicine 01/03/15 Machine Design Engineer Relationship Specialty Start Date End Date Arsh Polk MD [address] [facility], [place] [address] PCP - General Family Medicine 01/03/15 Machine Design Engineer Relationship Specialty Start Date End Date Arsh Polk MD [address] [place] [address] PCP - General Family Medicine 01/03/15 Machine Design Engineer Relationship Specialty Start Date End Date Arsh Polk MD [address] [place] [address] PCP - General Family Medicine 01/03/15 Machine Design Engineer Relationship Specialty Start Date End Date Arsh Polk MD [address] [place] [address] PCP - General Family Medicine 01/03/15 Machine Design Engineer Relationship Specialty Start Date End Date Arsh Polk MD [address] [place] [address] PCP - General Family Medicine 01/03/15 Machine Design Engineer Relationship Specialty Start Date End Date Arsh Polk MD [address] [place] [address] PCP - General Family Medicine 01/03/15 Machine Design Engineer Relationship Specialty Start Date End Date Arsh Polk MD [address] [place] [address] PCP - General Family Medicine 01/03/15 Machine Design Engineer Relationship Specialty Start Date End Date Arsh Polk MD [address] [place] [address] PCP - General Family Medicine 01/03/15 Machine Design Engineer Relationship Specialty Start Date End Date Arsh Polk MD [address] [place] [address] PCP - General Family Medicine 01/03/15 Machine Design Engineer Relationship Specialty Start Date End Date Arsh Polk MD [address] [place], [place] [address] PCP - General Family Medicine 01/03/15 Machine Design Engineer Relationship Specialty Start Date End Date Arsh Polk MD [address] [place] [address] PCP - General Family Medicine 01/03/15 Machine Design Engineer Relationship Specialty Start Date End Date Arsh Polk MD [address] [place] [address] PCP - General Family Medicine 01/03/15 Machine Design Engineer Relationship Specialty Start Date End Date Arsh Polk MD [address] [place] [address] PCP - General Family Medicine 01/03/15 Machine Design Engineer Relationship Specialty Start Date End Date Arsh Polk MD [address] [place] [address] PCP - General Family Medicine 01/03/15 Machine Design Engineer Relationship Specialty Start Date End Date Arsh Polk MD [address] [place] [address] PCP - General Family Medicine 01/03/15 Machine Design Engineer Relationship Specialty Start Date End Date Arsh Polk MD [address] [place], [place] [address]4731 PCP - General Family Medicine 01/03/15 Machine Design Engineer Relationship Specialty Start Date End Date Arsh Polk MD [address] [place], [place] [address] PCP - General Family Medicine 01/03/15 Machine Design Engineer Relationship Specialty Start Date End Date Arsh Polk MD [address] [place] [address] PCP - General Family Medicine 01/03/15 Machine Design Engineer Relationship Specialty Start Date End Date Arsh Polk MD [address] [place] [address] PCP - General Family Medicine 01/03/15 Machine Design Engineer Relationship Specialty Start Date End Date Arsh Polk MD [address] [place] [address] PCP - General Family Medicine 01/03/15 Machine Design Engineer Relationship Specialty Start Date End Date Arsh Polk MD [address] [place] [address] PCP - General Family Medicine 01/03/15 Machine Design Engineer Relationship Specialty Start Date End Date Arsh Polk MD [address] [place] [address] PCP - General Family Medicine 01/03/15 Machine Design Engineer Relationship Specialty Start Date End Date Arsh Polk MD [address] [place] [address] PCP - General Family Medicine 01/03/15 Lexi Winkler APRN.IGNITER CAPPER [address] [place] [address] Finisher Fine Diamond Dies Family Medicine 04/17/24 Romina Flynn APRN.IGNITER CAPPER [address] [place] [address] [facility] 04/17/24 Machine Design Engineer Relationship Specialty Start Date End Date Arsh Polk MD [address] [place] [address] PCP - General Family Medicine 01/03/15 Lexi Winkler, DIETARY TECH.IGNITER CAPPER [address] [facility] [place] [address] Fin[employer] Dies Family Medicine 04/17/24 Romina Flynn DIETARY TECH.IGNITER CAPPER [address] [facility] [place] [address] [facility] 04/17/24 Machine Design Engineer Relationship Specialty Start Date End Date Arsh Polk MD [address] [place] [address] PCP - General Family Medicine 01/03/15 Lexi Winkler DIETARY TECH.IGNITER CAPPER [address] [facility] [place] [address] [facility] 04/17/24 Romina Flynn DIETARY TECH.IGNITER CAPPER [address] [place] [address] [facility] 04/17/24 Machine Design Engineer Relationship Specialty Start Date End Date Arsh Polk MD [address] [place] [address] PCP - General Family Medicine 01/03/15 Lexi Winkler, DIETARY TECH.IGNITER CAPPER [address] [place] [address] [facility] 04/17/24 Romina Flynn APRN.IGNITER CAPPER [address] [place] [address] [facility] 04/17/24 Machine Design Engineer Relationship Specialty Start Date End Date Arsh Polk MD [address] [facility] [address] PCP - General Family Medicine 01/03/15 Lexi Winkler APRN.IGNITER CAPPER [address] [facility] [address] [facility] 04/17/24 Romina Flynn DIETARY TECH.IGNITER CAPPER [address] [place] [address] [facility] 04/17/24 Machine Design Engineer Relationship Specialty Start Date End Date Arsh Polk MD [address] [facility] [place] [address] PCP - General Family Medicine 01/03/15 Lexi Winkler APRN.IGNITER CAPPER [address] [facility] [place] [address] [facility] 04/17/24 Romina Flynn DIETARY TECH.IGNITER CAPPER [address] [facility] [place] [address] [facility] 04/17/24 Machine Design Engineer Relationship Specialty Start Date End Date Arsh Polk MD [address] [place] [address] PCP - General Family Medicine 01/03/15 Lexi Winkler APRN.IGNITER CAPPER [address] [place] [address] Finisher Fine [employer] Dies Family [facility] 04/17/24 Romina Flynn APRN.IGNITER CAPPER [address] [place] [address] Finisher Fine Diamond Dies [facility] Medicine 04/17/24 Machine Design Engineer Relationship Specialty Start Date End Date Arsh Polk MD [address] [place] [address] PCP - General Family Medicine 01/03/15 Lexi Winkler APRN.IGNITER CAPPER [address] [facility] [place] [address] [facility] 04/17/24 Romina Flynn APRN.IGNITER CAPPER [address] [facility] [place] [address] [facility] 04/17/24 Machine Design Engineer Relationship Specialty Start Date End Date Arsh Polk MD [address] [place] [address] PCP - General Family Medicine 01/03/15 Lexi Winkler APRN.IGNITER CAPPER [address] [facility] [place] [address] Fin[employer] Dies Family Medicine 04/17/24 Romina Flynn DIETARY TECH.IGNITER CAPPER [address] [place] [address] [facility] 04/17/24 Machine Design Engineer Relationship Specialty Start Date End Date Arsh Polk MD [address] [place] [address] PCP - General Family Medicine 01/03/15 Lexi Winkler APRN.IGNITER CAPPER [address] [place] [address] Finisher [employer] Dies Family [facility] 04/17/24 Romina Flynn APRN.IGNITER CAPPER [address] [place] [address] [facility] 04/17/24 Machine Design Engineer Relationship Specialty Start Date End Date Arsh Polk MD [address] [place] [address] PCP - General Family Medicine 01/03/15 Lexi Winkler APRN.IGNITER CAPPER [address] [place] [address] Finisher [employer] Dies Family [facility] 04/17/24 Romina Flynn APRN.IGNITER CAPPER [address] [place] [address] [facility] 04/17/24 Liliam Holt RN [address] [place] [id number] Caramel Maker 07/07/24 Machine Design Engineer Relationship Specialty Start Date End Date Arsh Polk MD [address] [place] [address] PCP - General Family Medicine 01/03/15 Lexi Winkler APRN.IGNITER CAPPER [address] [place] [address] Fin[employer] Dies Family Medicine 04/17/24 Romina Flynn APRN.IGNITER CAPPER [address] [facility] [place] [address] Finisher [employer] Dies Family [facility] 04/17/24 Liliam Holt, RN [address] [place] [address] Caramel Maker 07/07/24 Machine Design Engineer Relationship Specialty Start Date End Date Arsh Polk MD [address] [facility] [place] [address] PCP - General Family Medicine 01/03/15 Lexi Winkler APRN.IGNITER CAPPER [address] [facility] [address] Finisher Fine [employer] Dies Family Medicine 04/17/24 Romina Flynn APRN.IGNITER CAPPER [address] [facility] [place] [address] Finisher Fine Diamond Dies [facility] 04/17/24 Liliam Holt, FRANKY [address] [place] [address] Caramel Maker 07/07/24 Machine Design Engineer Relationship Specialty Start Date End Date Arsh Polk MD [address] [facility] [place] [address] PCP - General Family Medicine 01/03/15 Lexi Winkler DIETARY TECH.IGNITER CAPPER [address] [facility] [place] [address] Finisher [employer] Dies Family Medicine 04/17/24 Romina Flynn APRN.IGNITER CAPPER [address] [facility] [place] [address] Finisher [employer] Dies Family Medicine 04/17/24 Liliam Holt, FRANKY [address] [place] [address] Caramel Maker 07/07/24 Machine Design Engineer Relationship Specialty Start Date End Date Arsh Polk MD [address] [facility] [place] [address] PCP - General Family Medicine 01/03/15 Lexi Winkler, DIETARY TECH.IGNITER CAPPER [address] [place] [address] Finisher [employer] Dies Family [facility] 04/17/24 Romina Flynn DIETARY TECH.IGNITER CAPPER [address] [place] [address] [facility] 04/17/24 Machine Design Engineer Relationship Specialty Start Date End Date Arsh Polk MD [address] [place] [address] PCP - General Family Medicine 01/03/15 Lexi Winkler, DIETARY TECH.IGNITER CAPPER [address] [place] [address] Fin[employer] Dies Family Medicine 04/17/24 Romina Flynn DIETARY TECH.IGNITER CAPPER [address] [place] [address] Finisher [facility] 04/17/24 Machine Design Engineer Relationship Specialty Start Date End Date Arsh Polk MD [address] [place] [address] PCP - General Family Medicine 01/03/15 Lexi Winkler, DIETARY TECH.IGNITER CAPPER [address] [place] [address] Finisher [employer] Dies Family Medicine 04/17/24 Romina Flynn APRN.IGNITER CAPPER [address] [facility] [place] [address] Finisher [employer] Dies Family Medicine 04/17/24 Machine Design Engineer Relationship Specialty Start Date End Date Arsh Polk MD [address] [facility] [place] [address] PCP - General Family Medicine 01/03/15 Lexi Winkler DIETARY TECH.IGNITER CAPPER [address] [facility] [address] Finisher [employer] Dies Family Medicine 04/17/24 Romina Flynn DIETARY TECH.IGNITER CAPPER [address] [facility] [place] [address] Fin[facility] 04/17/24 Machine Design Engineer Relationship Specialty Start Date End Date Arsh oPlk MD [address] [facility] [place] [address] PCP - General Family Medicine 01/03/15 Lexi Winkler, DIETARY TECH.IGNITER CAPPER [address] [facility] [address] Finisher [employer] Dies Family Medicine 04/17/24 Romina Flynn DIETARY TECH.IGNITER CAPPER [address] [facility] [place] [address] Finisher [employer] Dies Family Medicine 04/17/24 Machine Design Engineer Relationship Specialty Start Date End Date Arsh Polk MD [address] [facility] [place] [address] PCP - General Family Medicine 01/03/15 Lexi Winkler, DIETARY TECH.IGNITER CAPPER [address] [facility] [address] Finisher [employer] Dies Family [facility] 04/17/24 Romina Flynn APRN.IGNITER CAPPER [address] [place] [address] Finisher [employer] Dies Family [facility] 04/17/24 Machine Design Engineer Relationship Specialty Start Date End Date Arsh Polk MD [address] [place] [address] PCP - General Family Medicine 01/03/15 Lexi Winkler APRN.IGNITER CAPPER [address] [place] [address] Fin[employer] Family Medicine 04/17/24 Romina Flynn APRN.IGNITER CAPPER [address] [place] [address] [facility] 04/17/24 Machine Design Engineer Relationship Specialty Start Date End Date Arsh Polk MD [address] [place] [address] PCP - General Family Medicine 01/03/15 Lexi Winkler APRN.IGNITER CAPPER [address] [place] [address] Finisher [employer] Dies [facility] 04/17/24 Romina Flynn APRN.IGNITER CAPPER [address] [place] [address] Finisher [employer] Dies [facility] 04/17/24 Team Status: Active Member Role/Relationship Status Dates Dr. Arsh Polk MD Primary Care Provider Active Team Status: Inactive Member Role/Relationship Status Dates Dr. Arsh Polk MD Primary Care Provider Active Start: August 09, 2024 End: August 09, 2024 Dr. Arsh Polk MD Referring Provider Active Start: August 09, 2024 End: August 09, 2024 Alva Patel PA, PA Attending Provider Active Start: August 09, 2024 End: August 09, 2024 Team Status: Inactive Member Role/Relationship Status Dates Dr. Arsh Polk MD Primary Care Provider Active Start: August 25, 2024 End: August 25, 2024 Dr. Nakia Laboy DO Attending Provider Active Start: August 25, 2024 End: August 25, 2024 Dr. Nakia Laboy DO Referring Provider Active Start: August 25, 2024 End: August 25, 2024 Team Status: Inactive Member Role/Relationship Status Dates Dr. Arsh Polk MD Primary Care Provider Active Start: August 31, 2024 End: August 31, 2024 Dr. Nakia Laboy DO Other Provider Active Sta rt: August 31, 2024 End: August 31, 2024 Alva CONNOR, PA Attending Provider Active Start: August 31, 2024 End: August 31, 2024 Avla Patel PA, PA Referring Provider Active Start: August 31, 2024 End: August 31, 2024 Team Status: Active Member Role/Relationship Status Dates Dr. Arsh Polk MD Primary Care Provider Active Start: August 31, 2024 Dr. John Herndon MD Attending Provider Active S tart: August 31, 2024 Alva Patel PA, PA Referring Provider Active Start: August 31, 2024 Team Status: Inactive Member Role/Relationship Status Dates Dr. Arsh Polk MD Primary Care Provider Active Start: September 03, 2024 End: September 03, 2024 Dr. Didier Encarnacion DO Attending Provider Active Start : September 03, 2024 End: September 03, 2024 Dr. Didier Encarnacion DO Emergency Provider Active Start : September 03, 2024 End: September 03, 2024 Team Status: Inactive Member Role/Relationship Status Dates Dr. Arsh Polk MD Primary Care Provider Active Start: November 14, 2024 End: November 14, 2024 Dr. Arsh Polk MD Referring Provider Active Start: November 14, 2024 End: November 14, 2024 Reagan Webster SUPERVISING DEPUTY, SUPERVISING DEPUTY-C Attending Provider Active S tart: November 14, 2024 End: November 14, 2024 Machine Design Engineer Relationship Specialty Start Date End Date Arsh Polk MD [address] [place] [address] PCP - General Family Medicine 01/03/15 Lexi Winkler APRN.IGNITER CAPPER [address] [place] [address] Finisher [employer] Dies Family Medicine 04/17/24 Romina Flynn APRN.IGNITER CAPPER [address] [place] [address] Fin[facility] 04/17/24 Machine Design Engineer Relationship Specialty Start Date End Date Arsh Polk MD [address] [place] [address] PCP - General Family Medicine 01/03/15 Lexi Winkler, DIETARY TECH.IGNITER CAPPER [address] [place] [address] [employer] Family Medicine 04/17/24 Romina Flynn DIETARY TECH.IGNITER CAPPER [address] [place] [address] Finisher [employer] Dies Family Medicine 04/17/24 Machine Design Engineer Relationship Specialty Start Date End Date Arsh Polk MD [address] [place] [address] PCP - General Family Medicine 01/03/15 Lexi Winkler DIETARY TECH.IGNITER CAPPER [address] [facility] [place] [address] Finisher [employer] Dies Family Medicine 04/17/24 Romina Flynn DIETARY TECH.IGNITER CAPPER [address] [place] [address] [facility] 04/17/24 Machine Design Engineer Relationship Specialty Start Date End Date Arsh Polk MD [address] [place] [address] PCP - General Family Medicine 01/03/15 Lexi Winkler APRN.IGNITER CAPPER [address] [facility] [place] [address] [facility] 04/17/24 Romina Flynn DIETARY TECH.IGNITER CAPPER [address] [place] [address] [facility] 04/17/24 Machine Design Engineer Relationship Specialty Start Date End Date Arsh Polk MD [address] [place] [address] PCP - General Family Medicine 01/03/15 Lexi Winkler DIETARY TECH.IGNITER CAPPER [address] [facility] [place] [address] [facility] 04/17/24 Romina Flynn DIETARY TECH.IGNITER CAPPER [address] [place] [address] [facility] 04/17/24 Machine Design Engineer Relationship Specialty Start Date End Date Arsh Polk MD [address] [place] [address] PCP - General Family Medicine 01/03/15 HaLexi webster APRN.IGNITER CAPPER [address] [place], [place] [address] [facility] 04/17/24 Romina Flynn APRN.IGNITER CAPPER [address] [place] [address] [facility] 04/17/24 Goals (unrecognized section and content) Goals may be documented in a n alternate sectionGoals may be documented in an alternate sectionGoals may be documented in an alternate sectionGoals may be documented in an alternate sectionGoals may be documented in an alternate sectionGoals may be documented in an alternate sectionGoals may be documented in an alternate sectionGoals may be documented in an alternate sectionGoals may be documented in an alternate section FOR RECORDS PERTAINING TO PATIENTS WHO ARE OR HAVE BEEN ENROLLED IN A CHEMICAL DEPENDENCY/SUBSTANCEABUSE PROGRAM, SOME INFORMATION MAY BE OMITTED. This clinical summary was aggregated from multiple sources. Caution should be exercised in using it in the provision of clinical care. This summary normalizes information from multiple sources, and as a consequence, information in this document may materially change the coding, format and clinical context of patient data. In addition, data may be omitted in some cases. CLINICAL DECISIONS SHOULD BE BASED ON THE PRIMARY CLINICAL RECORDS. [facility] [employer] [facility]. provides no warranty or guarantee of the accuracy or completeness of information in this document.
[2025-03-20 20:56] LABS: Magnesium 1.5 mg/dL (1.5-2.2)
[2025-03-20 21:09] LABS: Troponin T High Sens 4 HR 101 ng/L (<=22)
[2025-03-20] MEDS: 0.9% Normal Saline (1000mL) 1,000 ML 75 ML IV (22:00)
[2025-03-20 22:03] LABS: Procalcitonin 0.14 ng/mL (<=0.10)
--- NOTE | 2025-03-20 22:22 | PN.HOSP_ITS ---
Hospitalist Note Pt reports known dysphagia and home routine for minced and moist foods of bite- sized proportions. Dietary order adjusted for same. ST consulted to review.
--- NOTE | 2025-03-20 22:22 | PCM.HOSP.N ---
Hospitalist Note Pt reports known dysphagia and home routine for minced and moist foods of bite-sized proportions. Dietary order adjusted for same. ST consulted to review.
[2025-03-21] VITALS (8 sets, daily range): BP systolic 132–173; BP diastolic 72–84; PULSE 73–96; RESP 16–18; TEMP 36.6–37.1; O2SAT 92–94; BMI 34.0
[2025-03-21] MEDS: 0.9% Saline Lock 10 ML Syringe IV (01:14)
--- NOTE | 2025-03-21 05:00 | RAD_ITS ---
PROCEDURE: CHEST 1 VIEW (PORTABLE) 03/21/2025 REASON FOR EXAM: LEUKOCYTOSIS TECHNIQUE: Frontal view of the chest. COMPARISON: 03/20/2025 FINDINGS: Stable cardiomegaly and aortic calcifications. 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 Faint right lower lung zone infiltrates are seen. Right mid lung zone bronchiectasis noted. Minimal right pleural effusion. No left pleural effusion. No acute ribs abnormalities. RAD/Chest 1 View (Portable) IMPRESSION: Cardiomegaly. Faint right lower lung zone infiltrates likely infectious, new as compared. Ple ase correlate clinically. Reading [facility] [address]
[2025-03-21 07:35] LABS: Hematocrit 28.2 % (40-54); Hemoglobin 9.5 g/dL (13.0-16.5); Immature Granulocytes Count 0.100 X10^3/uL (0.0-0.0); Mean Corp Hgb Conc 33.7 g/dL (32-36); Mean Corpuscular Volume 88.7 fL (80-94); Mean Platelet Vol. 10.6 fl (6.2-12.0); NRBC Flagged by Analyzer 0 % (0-5); Platelet Count 210 K/mm3 (150-450); RBC Distribution Width CV 14.4 % (11.6-14.6); RBC Distribution Width SD 46.9 fl (35.1-43.9); Red Blood Count 3.18 M/mm3 (4.6-6.2); White Blood Count 14.8 K/mm3 (4.4-11.0)
--- NOTE | 2025-03-21 08:20 | PCM.PN.HOSP ---
Reason for Visit Chief Complaint: Weakness, debility, fall. Objective Data Objective Data Vital Signs: Vital Signs Temp Pulse Resp BP Pulse Ox O2 Del Method 98.0 F 87 16 155/74 H 92 Room Air 03/21/25 06:00 03/21/25 06:00 03/21/25 06:00 03/21/25 06:00 03/21/25 06:00 03/21/25 06:00 Oxygen Delivery Method Room Air Weight: 251 lb 1.704 oz Body Mass Index (BMI) 34.0 Intake & Output: Intake and Output for Last 24 Hours 03/19/25 03/20/25 03/21/25 23:59 23:59 23:59 Intake Total 400 / 400 550 / 550 Output Total 200 / 200 450 / 450 Balance 200 / 200 100 / 100 Lab / Micro Data 03/21/25 07:11 03/21/25 07:11 Labs: Laboratory Results - last 24 hr 03/20/25 16:38: WBC 19.0 H, RBC 3.49 L, Hgb 10.3 L, Hct 31.0 L, MCV 88.8, MCH 29.5, MCHC 33.2, RDW Std Deviation 46.6 H, RDW Coeff of Wendy 14.6, Plt Count 202, MPV 10.4, Immature Gran % (Auto) 0.600, Neut % (Auto) 89.1 H, Lymph % (Auto) 3.5 L, [place] % (Auto) 6.3, Eos % (Auto) 0.2, Baso % (Auto) 0.3, Absolute Neuts (auto) 16.9 H, Absolute Lymphs (auto) 0.67 L, Nucleated RBC % 0, Sodium 136, Potassium 5.1, Chloride 100, Carbon Dioxide 26.1, Anion Gap 10, BUN 28 H, Creatinine 1.86 H, Estim Creat Clear Calc 39.22 L, Est GFR (MDRD) Non-Af 35 L, BUN/Creatinine Ratio 15.0, Glucose 201 H, Calcium 9.0, Troponin T High Sens 96 H* D 03/20/25 17:50: Lactic Acid 1.1 03/20/25 18:00: Urine Color Yellow, Urine Clarity Clear, Urine pH 6.0, Ur Specific [place] 1.015, Urine Protein 100 H, Urine Glucose (UA) Normal, Urine Ketones Negative, Urine Occult Blood 10 H, Urine Nitrite Negative, Urine Bilirubin Negative, Urine Urobilinogen Normal, Ur Leukocyte Esterase Negative, Urine RBC 0-5 SEEN, Urine WBC 0-5 SEEN, Ur Squamous Epith Cells 0-5 SEEN, Urine Bacteria 0 SEEN, Urine Mucus 0 SEEN 03/20/25 18:55: Troponin T Hi Sens 2 Hr 107 H* 03/20/25 20:25: Magnesium 1.5, Troponin T Hi Sens 4Hr 101 H*, Procalcitonin 0.14 H 03/20/25 22:13: POC Glucose 162 H 03/21/25 06:05: POC Glucose 163 H 03/21/25 07:11: WBC 14.8 H, RBC 3.18 L, Hgb 9.5 L, Hct 28.2 L, MCV 88.7, MCH 29.9, MCHC 33.7, RDW Std Deviation 46.9 H, RDW Coeff of Wendy 14.4, Plt Count 210, MPV 10.6, Immature Gran % (Auto) 0.700, Neut % (Auto) 89.3 H, Lymph % (Auto) 4.2 L, [place] % (Auto) 5.4, Eos % (Auto) 0.2, Baso % (Auto) 0.2, Absolute Neuts (auto) 13.2 H, Absolute Lymphs (auto) 0.62 L, Nucleated RBC % 0 Micro: Microbiology 03/20/25 16:38 Mucosa - Nose SARS-CoV-2, Influenza & RSV (PCR) - Final Radiography Diagnostic Testing: Radiology Impression Brain CT 03/20/25 16:24 IMPRESSION: 1. No acute intracranial abnormality. 2. Age-related senescent changes. Reading Location: [facility] Cervical Spine CT 03/20/25 16:24 IMPRESSION: 1. No acute cervical spine fracture. 2. Chronic degenerative changes of the spine. Reading Location: [facility] Pelvis X-Ray 03/20/25 16:26 IMPRESSION: No acute osseous abnormalities. Bilateral hip osteoarthrosis. Reading Location: [facility] [address] Chest X-Ray 03/20/25 16:50 IMPRESSION: NO ACUTE FINDINGS. Cardiomegaly. Reading Location: [facility] Chest X-Ray 03/21/25 05:00 IMPRESSION: Cardiomegaly. Faint right lower lung zone infiltrates likely infectious, new as compared. Please correlate clinically. Reading Location: [place] [address] Physical Exam Narrative Seen and examined Patient has multiple comorbidities and has been gradually declining for 4 weeks. Hard to transfer, ambulate and fall. Physical exam General: Alert, Oriented x3, Cooperative. BMI 34.1 kg per square HEENT: Atraumatic, PERRLA, EOMI, Normocephalic. Oral: No Gingival or Mucosal Lesions/ Ulcerations Neck: Supple, No JVD, Negative Carotid Bruits Chest wall/Lungs: Air entry diminished in bilateral lungs. No crepitation/rhonchi Cardiovascular: Sinus rhythm, normal S1,S2, systolic murmur Abdomen: Bowel Sounds Present, Soft, Non Tender, Non-Distended : No dysuria. No renal angle tenderness. No suprapubic tenderness. Extremities: Mild pitting bilateral ankle edema, Capillary Refill Less than 3 Seconds Skin: No rashes, No breakdown Musculoskeletal: No Tenderness to Palpation of Joints or Extremities. ROM severely limited. Degenerative arthritis of knees and hips. Increase in stiffness/tone of muscles muscle strength 4+/5 at knees and hip joints spine: Spine: Difficulty in turning around from supine to lateral or prone. ROM limited over thoracic and lumbar spine Neurological: Cranial nerves II-XII grossly intact, DTR 2+/4. No acute focal neurological deficit. Psych/Mental Status: Flat Assessment & Plan Assessment/Plan (1) Failure to thrive in adult: PLAN: Plan The patient is an 84 y/o M was admitted with worsening weakness, for 3 to 4 weeks could not transfer from bed to commode, fell down hit on head on something. No significant injury or LOC. Parkinson's disease. Low-grade fever at home. Pressure sores on the buttock. History of non-Hodgkin's lymphoma status post chemoradiation 2006 05. Acute debility with progressive weakness, inability to do ADL, failure to thrive, fall: Patient is being admitted in the PCU. Fall and aspiration precaution. PT OT and case management Patient has limited mobility with high risk fall due to Parkinson disease. Palliative care consulted Suspicion of right lower lobe infiltrate/pneumonia with leukocytosis/bronchiectasis on x-ray: Patient had 19,000 leukocytosis, 89% neutrophil 3.5% lymphocyte. Immature granulocytes normal. Platelet count 202. Leukocytosis improving. Started on IV ceftriaxone and doxycycline. Patient had 1 dose of ceftriaxone and doxycycline in ED. Radiologist also reported right midlung zone bronchiectasis though I could not appreciate it. Patient had history of smoking and quit in 2006. #2. 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 Chest x-ray no acute cardiopulmonary finding. Troponin 96, 100, 101, no significant delta change. Patient had cardiac cath in August 2021 with no evidence of any high-grade stenosis. Continue home medication aspirin, statin. Not on MAI or ARB secondary to renal disease 3. PAF/flutter: Not on any rate or rhythm agents, previously on Eliquis however given significant fall risk Eliquis was eventually discontinued. Patient had TAVR and no significant recurrence of atrial fibrillation or flutter event #5. Chronic HFrEF: Most recent echocardiogram as noted 04/24/2024 with LVEF 40%, normal LV size, mild concentric LVH, mild to moderate global hypokinesis LV, bioprosthetic AV, continue Lasix. #6. Chronic Kidney Disease Stage IIIb: Admission BUN/Cr 28/1.86, GFR 35, baseline renal function primarily 1.5-1.9, she follows Dr. Nakia Laboy #7. Chronic normocytic anemia/iron deficiency anemia: Admission hemoglobin 10.3, MCV 88.8, baseline hemoglobin primarily more recently 10 range, stable, continue to trend, continue iron supplementation. #8. Parkinson's disease of unclear specific extent/severity: Will continue patient home Sinemet and rivastigmine regimen, complicates presentation, maintain on fall and aspiration precautions, PT/OT/case management consulted for discharge planning. #9. Hx Non-Hodgkin's lymphoma/diffuse large B-cell lymphoma: Status post chemo and radiation 2006, consider remission, encourage follow-up with oncology as previously arranged. #10. Diabetes mellitus type II with chronic neuropathy: Hold oral home regimen, ADA diet, accu checks w/ ISS, continue home gabapentin regimen. #11. Anxiety and depression: Will continue patient home sertraline regimen as well as low-dose as needed lorazepam however will hold for sedation. #12. Valvular heart disease: Status post TAVR, most recent echocardiogram 04/24/2024 with LVEF 40%, normal LV size, mild concentric LVH, mild to moderate global hypokinesis LV, bioprosthetic AV, mean aortic gradient 10 mmHg. #13. Hypertension: Continue home regimen including Lasix with hold parameters as needed, PRN hydralazine. #14. Hyperlipidemia: Continue home statin regimen. 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 DVT prophylaxis: Lovenox. CODE status: Patient MANN is his who is present and living will is currently in place. Discussed CODE status at length including difference between FULL code, DNR-CCA and DNR-CC status. Following discussions about the differences in these status, requested Full Code status. Charges/Coding Visit Charges Inpatient E&M: 07100 Subs Hosp L2
[2025-03-21 08:44] LABS: Cholesterol 83 mg/dL (<=200); Low Density Lipoprotein Calc. 24 mg/dL; Triglycerides 89 mg/dL; Very Low Density Lipoprotein 18 mg/dL (5-40); cholesterol:hdl ratio screen 2.01
[2025-03-21 08:45] LABS: AST(SGOT) 10 U/L (<=37); Alanine Aminotransfer ALT/SGPT < 5 U/L (<=46); Albumin, Serum 3.0 g/dL (3.4-4.8); Alkaline Phosphatase 48 U/L (40-129); Anion Gap 10 (5-15); BUN 29 mg/dL (4-19); BUN/Creat Ratio 16.9 RATIO (10-20); Calcium,Total 8.8 mg/dL (7.6-11.0); Carbon Dioxide 24.0 mmol/L (21.0-32.0); Chloride 102 mmol/L (98-108); Estimated Creatinine Clearance 42.40 ml/min (50-250); Globulin 3.1 g/dL (2.2-4.2); Glucose 180 mg/dL (70-99); Potassium 4.6 mmol/L (3.3-5.1)
[2025-03-21] MEDS: Aspirin E.C. 81 MG Tablet PO (09:30)
--- NOTE | 2025-03-21 10:23 | CON.PCM.PA_ITS ---
[facility] 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) Chronic kidney disease (CKD) Non-ischemic cardiomyopathy History of non-ST elevation myocardial infarction (NSTEMI) (01/22/20) Chronic systolic (congestive) heart failure CHF (congestive heart failure), NYHA class III 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 Mild chronic anemia Nonrheumatic aortic (valve) stenosis Non-Hodgkin lymphoma Obesity Splenic artery aneurysm Type 2 diabetes mellitus Kidney stones HLD (hyperlipidemia) Home Medications Medication Instructions Recorded Last Taken Type folic acid 1 mg tablet 1 mg PO [facility]ILY [facility] 11/11[facility]21 09/02/24 History atorvastatin 40 mg tablet 40 mg PO QHS cholesterol 09/02/24 History sertraline 50 mg tablet 50 mg PO DAILY Depression 09/02/24 History mecobalamin (vitamin B12) 1,000 1,000 mcg PO DAILY [facility] 11/16/23 09/02/24 History mcg [facility]able [facility] metformin 500 mg tablet,extended 500 mg PO BID DM 01/3109/02/24 History release 24 hr sitagliptin phosphate 50 mg tablet 50 mg PO DAILY Diab etes 11/16/23 09/02/24 History (Januvia) tamsulosin 0.4 mg capsule (Flomax) 0.4 mg PO BID [place] 04/24/24 09/02/24 History rivastigmine tartrate 1.5 mg 1.5 mg PO BIDCM 30 days # 60 caps 05/16/24 09/02/24 Rx capsule gabapentin 300 mg capsule 300 mg PO BID 08/09/2409/02 History ferrous gluconate 324 mg (37.5 mg 325 mg PO BID [facility] 09/03/24 09/02/24 History iron) tablet furosemide 40 mg tablet 40 mg PO DAILY water pill 09/02/24 History lorazepam 0.5 mg tablet 0.5 mg PO Q4H PRN aggitation & 09/03/24 Unknown History restlessness aspirin 81 mg tablet,delayed 81 mg PO QDAY 10/06/24 Un known History release (Adult Low Dose Aspirin) carbidopa 25 mg-levodopa 100 mg 1 tab PO TID 11/14/24 Unknown History tablet Allergy/AdvReac Type Severity Reaction Status Date / Time No Known Allergies Allergy Verified 03/20/25 16:14 Family History Mother Heart disease Father Heart disease Brother Heart disease Surgical History History of left heart catheterization (08/14/20) Hx of cataract surgery Hx of cholecystectomy Social History household members: spouse Smoking Status: Former smoker how long ago did patient quit smokin alcohol intake: never substance use type: does not use caffeine: Yes Type: coffee Number of servings: 2 ROS Constitutional Constitutional: Reports as per HPI, poor appetite and weakness Eyes Eyes: Reports as per HPI and other Details: Wears corrective lenses ENT HEENT: Reports dysphagia Cardiovascular Cardiovascular: Reports arrhythmia on telemetry and leg edema Respiratory/Chest Respiratory/Chest: Reports cough and dyspnea on exertion Gastrointestinal Gastrointestinal: Reports systems reviewed and no addt'l complaints, except as documented Genitourinary Genitourinary: Reports difficulty urinating Musculoskeletal Musculoskeletal: Reports joint pain Integumentary Integumentary: Reports wounds Neurologic Neurologic: Reports confusion Psychiatric Psychiatric: Reports as per HPI Endocrine Endocrinology: Reports as per HPI Hematologic/Lymphatic Hematologic/Lymphatic: Reports anemia Allergic/Immunologic Allergic/Immunologic: Reports as per HPI Physical Exam Const alert Constitutional Narrative: Orientation did improve as conversation progressed. Orientation / Consciousness: confused HEENT normocephalic Eyes Eyes Narrative: Corrective lenses Neck General: trachea midline Lymph Lymphatic: lymphedema Resp Auscultation: wheezes right lower and diminished lung sounds Cardio regular rate Cardio Narrative: Irregular rhythm Rhythm: abnormal rhythm GI normal to inspection, nondistended, normoactive bowel sounds and non-tender Extremity normal capillary refill Skin Wounds: wounds noted other Reported wound to the buttocks. I did not assess as patient was sitting down in his recliner. Neuro Speech: speech normal Psych Mood & Affect: flat affect Charges/Coding Palliative Care Palliative Care: 82095 New Pt Consult 80+ min HPI Current admission Current Code Status: NNRCC-A no intubation Associated Diagnosis: FTT, RLL infiltrates, dysphasia Consult Data Date of Consult: 03/21/25 Location of consult: PCU Reason for referral: [facility] Referral source: CM Palliative care diagnosis (Summary list): FTT, dysphasia Palliative care services/treatment (Accepted, as consult): Accepted Case discussed with referring provider: goals of care HPI Narrative HPI Narrative: PAIN ASSESSMENT Denies pain at this time. Prior to meeting with the patient at bedside I reviewed labs, radiological studies and documentation. I then met with the patient, Tylor and his at bedside. I introduced myself and the concept of palliative care in which they voluntarily excepted our services. Alma was admitted to [facility] on 03/20/2025 for failure to thrive, generalized weakness and fall. Patient, during the time of my assessment, was unable to tell me the name of the building we were in and he stated that the year was 2003. Oddly, he was able to tell me that he was waiting for a swallow study. Initially he stated that his was the "neighbor lady." After he got his bearings he was able to tell me that it was his and her name. I did review patient's medical history and when she does have CKD 3, paroxysmal A-fib, Parkinson's, non-Hodgkin's lymphoma with diffuse large B-cell lymphoma, BPH, depression and anxiety. He does have chronic normocytic anemia/iron deficiency anemia. I was able to confirm medical history with the patient's . He did have a CT scan of his head after having a fall at home and striking his head. It did show microvascular ischemic changes with patchy white periventricular white matter. I had an extensive goals of care conversation with the patient and his and he stated that he does not have much of an appetite. I did recommend eating 6 small meals per day versus eating 3 large meals. His did state that she has been giving him Ensure. He based on his chronic kidney disease I did recommend that he be given nephro and have a dietitian consult. The goal for both the patient and his is that he would return home. They are open to a short SNF placement if needed for rehab. Patient has not received PT/OT today per documentation. Patient did have a swallow study today which she did have some coughing on thin liquids. There is a barium swallow study scheduled for today. Patient's mentation did improve during assessment. Will continue to follow. We did have a discussion about support on an outpatient basis and I do recommend outpatient palliative care services which both the patient and his accept. Patient's feels that this would be a good service for them for an additional layer support going forward. I did provide her with a list and they are in [facility]. [facility]. I did update CM/SW and referral is being placed. All questions the patient and his had were answered. Palliative care will continue to follow for continued support as clinical picture evolves. per hospitalist: "The patient is an 84 y/o M w/ PMHx: Obesity, Parkinson's disease, PAF, Anxiety and Depression, Former tobacco use, Chronic normocytic anemia/iron deficiency anemia, CKD stage III unclear subtype per GFR trending, Valvular Heart Disease s/p TAVR, Diabetes mellitus type II, HFrEF, Nonobstructive CAD, Hx Non-Hodgkin's lymphoma/diffuse large B-cell lymphoma, BPH with obstructive pathology who presents to [facility] ED on 03/20/2025 secondary to notable weakness more notable over the last 3 to 4 weeks unfortunately progressing and on day of presentation while he was transferring from his bed with the walker to the commode he lost his balance falling backwards and striking his head with no loss of consciousness or any significant back or neck pain prompting ED evaluation to be cautious. His is his primary caregiver and he does live at home. Patient notes he did have mild dysuria sensation but reports this was a couple months previous. Patient denies any recent URI type symptoms, dyspnea or chest pain. Workup in the ED included T98.4, heart rate 80, BP 119/71, respiratory rate 16, 94% on room air with most recent repeat vitals T97.9 Oral, heart rate 87, BP 145/76, respiratory rate 19, 96% on room air, CBC with WC 19, hemoglobin 10.3, MCV 88.8, platelet 202 with left shift and lymphopenia, BMP with BUN/Cr 28/1.86, GFR 35, glucose 201, lactic acid 1.1, initial troponin 96, urinalysis unremarkable, CT brain with no acute intracranial findings with age-related senescent changes, CT cervical spine with no acute cervical spinal fracture, chronic degenerative changes, plain film of the pelvis with no acute osseous abnormalities with bilateral hip osteoarthrosis, chest x-ray with cardiomegaly with no acute cardiopulmonary findings, EKG with SR with no acute evidence of ischemia. In the ED prior to results being obtained given concern for possible UTI versus pneumonia patient was administered Rocephin 1 g IV x 1 and doxycycline 100 mg IV x 1." *This note was generated with Citelighter dictation software. It may contain incorrect words, spelling, and punctuation that were not noted in checking the note before signing. Palliative Assessment Advanced Directive - Current Admission Advance Directive: Advance Directive ON ADMISSION - REFERENCE 3 Do you have a Healthcare Yes 03/20/25 21:50 Living Will? Is a Healthcare Living Will No, requested patient bring 03/20/25 21:50 present in the medical record? copy into [facility] Do you have a Healthcare Power Yes 03/20/25 21:50 of Scale Operator? Is a Healthcare Power of Yes, It is scanned in 03/20/25 21:50 Scale Operator present in the medical rec Do You Want Additional Declined 03/20/25 21:50 Information on Advanced Directives or Healthcare Proxy/DPOA comments: pts Suri Psychosocial/Spiritual Information Living situation/Marital status: Patient is and lives with his Geographic location: [facility] Supports: Patient states that they have a lot of friends that they used to be things with. Rastafari/Dianna or spiritual preference: Spiritism Spiritual distress: Denies Prior functional status: Patient is able to dress himself and brush his teeth. He has had difficulty recently. Assistive devices at home: Walker at the house and to get to the vehicle. Wheelchair when out and about or scooter Cultrual issues: None Information about the patient as a person: Patient states that he has lost interest in the majority of his past times. 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 He currently sleeps in his recliner and his sleeps in his hospital bed next to him. He enjoys watching television. Symptoms Palliative performance scale: 50% Palliative prognostic index: 6.0 prognosis is guarded. Dyspnea symptoms: None Constipation symptoms: None Nausea symptoms: None Vomiting symptoms: None Depression symptoms: Moderate Anorexia symptoms: Moderate Cough symptoms: Mild Insomnia symptoms: None Diarrhea symptoms: None Fatigue symptoms: Moderate Weakness symptoms: Moderate Confusion symptoms: Mild Side Effects & Interventions: Confusion did improve with continued conversation. Objective Data Objective Data Vital Signs: Vital Signs Temp Pulse Resp BP Pulse Ox O2 Del Method 98.7 F 96 18 133/72 H 93 Room Air 03/21/25 08:29 03/21/25 08:29 03/21/25 08:29 03/21/25 08:29 03/21/25 08:03/21/25 09:32 Oxygen Delivery Method Room Air Weight: 251 lb 1.704 oz Body Mass Index (BMI) 34.0 Intake & Output: Intake and Output for Last 24 Hours 03/19/25 03/20/25 03/21/25 23:59 23:59 23:59 Intake Total 400 / 400 550 / 550 Output Total 200 / 200 450 / 450 Balance 200 / 200 100 / 100 Lab / Micro Data Attestation: I reviewed the patient's lab results. Lab results narrative: Patient's hemoglobin today is 9.5 from 10.3 yesterday. Improvement in leukocytosis from 19 yesterday to 14.8 today, liver function is within normal limits, his BUN is slightly higher today at 29 from 28 yesterday, improvement in creatinine from 1.86-1.69 today, improvement in GFR to 48 from 35 yesterday. On admission the patient did have elevated tropes of 96, 107 and 101. His Pro-Wei was 0.14 and elevated. Does have a decreased albumin. 03/21/25 07:11 03/21/25 07:11 Labs: Laboratory Results - last 24 hr 03/20/25 16:38: WBC 19.0 H, RBC 3.49 L, Hgb 10.3 L, Hct 31.0 L, MCV 88.8, MCH 29.5, MCHC 33.2, RDW Std Deviation 46.6 H, RDW Coeff of Wendy 14.6, Plt Count 202, MPV 10.4, Immature Gran % (Auto) 0.600, Neut % (Auto) 89.1 H, Lymph % (Auto) 3.5 L, Porter % (Auto) 6.3, Eos % (Auto) 0.2, Baso % (Auto) 0.3, Absolute Neuts (auto) 16.9 H, Absolute Lymphs (auto) 0.67 L, Nucleated RBC % 0, Sodium 136, Potassium 5.1, Chloride 100, Carbon Dioxide 26.1, Anion Gap 10, BUN 28 H, Creatinine 1.86 H, Estim Creat Clear Calc 39.22 L, Est GFR (MDRD) Non-Af 35 L, BUN/Creatinine Ratio 15.0, Glucose 201 H, Calcium 9.0, Troponin T High Sens 96 H* D 03/20/25 17:50: Lactic Acid 1.1 03/20/25 18:00: Urine Color Yellow, Urine Clarity Clear, Urine pH 6.0, Ur Specific [place] 1.015, Urine Protein 100 H, Urine Glucose (UA) Normal, Urine Ketones Negative, Urine Occult Blood 10 H, Urine Nitrite Negative, Urine Bilirubin Negative, Urine Urobilinogen Normal, Ur Leukocyte Esterase Negative, Urine RBC 0-5 SEEN, Urine WBC 0-5 SEEN, Ur Squamous Epith Cells 0-5 SEEN, Urine Bacteria 0 SEEN, Urine Mucus 0 SEEN 03/20/25 18:55: Troponin T Hi Sens 2 Hr 107 H* 03/20/25 20:25: Magnesium 1.5, Troponin T Hi Sens 4Hr 101 H*, Procalcitonin 0.14 H 03/20/25 22:13: POC Glucose 162 H 03/21/25 06:05: POC Glucose 163 H 03/21/25 07:11: WBC 14.8 H, RBC 3.18 L, Hgb 9.5 L, Hct 28.2 L, MCV 88.7, MCH 29.9, MCHC 33.7, RDW Std Deviation 46.9 H, RDW Coeff of Wendy 14.4, Plt Count 210, MPV 10.6, Immature Gran % (Auto) 0.700, Neut % (Auto) 89.3 H, Lymph % (Auto) 4.2 L, Porter % (Auto) 5.4, Eos % (Auto) 0.2, Baso % (Auto) 0.2, Absolute Neuts (auto) 13.2 H, Absolute Lymphs (auto) 0.62 L, Nucleated RBC % 0, Sodium 136, Potassium 4.6, Chloride 102, Carbon Dioxide 24.0, Anion Gap 10, BUN 29 H, Creatinine 1.69 H, Estim Creat Clear Calc 42.40 L, Est GFR (MDRD) Non-Af 40 L, BUN/Creatinine Ratio 16.9, Glucose 180 H, Calcium 8.8, Total Bilirubin 0.62, AST 10, ALT < 5, Alkaline Phosphatase 48, Total Protein 6.1, Albumin 3.0 L, Globulin 3.1, Albumin/Globulin Ratio 1.0, Triglycerides 89, Cholesterol 83, LDL Cholesterol, Calc 24, VLDL Cholesterol 18, HDL Cholesterol 41, Cholesterol/HDL Ratio 2.01 Micro: Microbiology 03/20/25 16:38 Mucosa - Nose SARS-CoV-2, Influenza & RSV (PCR) - Final Radiography Diagnostic Testing: Radiology Impression Brain CT 03/20/25 16:24 IMPRESSION: 1. No acute intracranial abnormality. 2. Age-related senescent changes. Reading Location: [facility] Cervical Spine CT 03/20/25 16:24 IMPRESSION: 1. No acute cervical spine fracture. 2. Chronic degenerative changes of the spine. Reading Location: [facility] Pelvis X-Ray 03/20/25 16:26 IMPRESSION: No acute osseous abnormalities. Bilateral hip osteoarthrosis. Reading Location: [facility] Chest X-Ray 03/20/25 16:50 IMPRESSION: NO ACUTE FINDINGS. Cardiomegaly. Reading Location: [facility] Chest X-Ray 03/21/25 05:00 IMPRESSION: Cardiomegaly. Faint right lower lung zone infiltrates likely infectious, new as compared. Please correlate clinically. Reading Location: [place] [id number] Rhythm Strip Ectopy: - (Irregular rhythm noted on auscultation and palpation) Impressions & Recommendations Patient & Family Issues discussed with the patient and family: Goals of care going forward Patient goal: Patient is hoping to return home soon Family goal: Family is open to SNF placement if needed. Palliative referral sent Ethical & Legal Ethical and legal: Patient does have intermittent confusion. May require POA interventions Impressions Impressions: Patient has multiple chronic illnesses and would benefit from outpatient palliative services. Recommentation Palliative recommendations: Outpatient palliative services Encouter Achieved as a result of this Palliative Care Encounter: [ [id number], [id number]] minutes were spent in total for this visit which consisted, primarily of counseling and education dealing with the complex and emotionally intense issues of symptom management and palliative care in the setting of serious and potentially life-threatening illness. Review of documentation, labs and radiological studies. Patient/family had the opportunity to ask questions Plan (1) Failure to thrive in adult: (2) HFrEF (heart failure with reduced ejection fraction): (3) Parkinson's disease dementia: (4) Diffuse large B cell lymphoma: (5) Non-Hodgkin lymphoma: (6) CHF (congestive heart failure), NYHA class III: (7) Goals of care, counseling/discussion: (8) Palliative care encounter: PLAN: Plan *Medical management per primary team *Discussion with patient and family about goals of care going forward *Confirmed CODE STATUS of DNR CC–a with no intubation *Recommend dietitian consult for decreased appetite and renal diet *Recommend eating 6 small meals versus 3 large meals *Recommend PT/OT evaluation and treatment *Patient and agreeable to palliative outpatient referral to [facility].
--- NOTE | 2025-03-21 10:34 | CASEMGMT ---
Social Work Primary Care Doctor: Dr. Hwang Speciality doctors: neurology- Dr. Otto, [facility]- oncology, Dr. Herndon- cardiology Insurance: [place] Medicare. Pharmacy: Patient utilizes [facility] in [place] Advanced directives: yes and it in the patients chart LNOK:. Living Situation: Patient lives at home with his . They have no children. They have nieces and nephews in the area. Friends and a nephew help if needed. There is a ramp into the house. ADL's/Prior level of functioning: The assist with ADL's. Transportation: The transports to [facility]. DME: WC, shower bench, FWW, BSC, ramp [facility]/home health history: no NH. [facility] Mental Health: none Substance abuse history: none Assessment: Patient lives at home with his . Patient was able to walk short distances prior to yesterday. He uses his FWW in the home. PLAN: To be determined. BRANDY Chaney
--- NOTE | 2025-03-21 13:23 | ST.MBS ---
Modified Barium Swallow Patient Information Study Date: 03/21/25 Study Time: 13:30 Direct Billable Minutes: 110 Total Minutes procedure & reportin Diagnosis: PD G20.A1; Dementia F02.80 Referring Physician: Juan Carlos Martínez Reason for Referral: Objectively assess swallow function, assess risk for aspiration, and determine recommendations for least restrictive diet textures and compensatory strategies to improve safety of swallow. Medical History: The patient w/ PMH significant for Parkinson's disease, CKD stage III, Diabetes mellitus type II, HFrEF, and Hx Non-Hodgkin's lymphoma/diffuse large B-cell lymphoma (See full PMH below) presented to [facility] ED 03/20/2025 w/ progressive weakness over the last 3 to 4 weeks. On day of presentation, pt unable to transfer from his bed to the commode w/ his walker resulting in a fall, striking his head w/o LOC or significant back or neck pain. brought him for ED evaluation to be cautious. His is his primary caregiver and he does live at home. In the ED, urinalysis unremarkable, CT brain with no acute intracranial findings with age-related senescent changes, CT cervical spine with no acute cervical spinal fracture, chronic degenerative changes, plain film of the pelvis with no acute osseous abnormalities with bilateral hip osteoarthrosis, chest x-ray with cardiomegaly with no acute cardiopulmonary findings, EKG with SR with no acute evidence of ischemia. He was admitted for adult FTT. ST consulted due to concern for swallowing difficulty. Chest X-ray 03/21/2025 revealed cardiomegaly and faint right lower lung zone infiltrates likely infectious, new. Of note, pt has hx of dysphagia w/ MBSS in 04/26/2024, which revealed moderate oropharyngeal dysphagia w/ SILENT aspiration of thin liquids by tsp, thin liquids by cup w/ chin tuck, and SILENT post prandial aspiration of thin liquids via single cup sip. Effortful swallows did not eliminate aspiration, but these strategies decreased amount of laryngeal penetration and decreased aspiration risk. The patient was recommended for Soft and Bite Size Textures (IDDSI Level 6) and Thin Liquids w/ the following compensatory strategies: Small Bites, Small Sips (HARD/EFFORTFUL SWALLOWS EACH SIP, Cue intermittent cough and re-swallow every 4-5 sips), Slow Rate, Alternate bites/solids and sips/liquids (1:1 ratio) and Sitting upright; Supervision: 1:1 Close Supervision (ALL FOOD/DRINK). 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) Chronic kidney disease (CKD) Non-ischemic cardiomyopathy History of non-ST elevation myocardial infarction (NSTEMI) (01/22/20) Chronic systolic (congestive) heart failure CHF (congestive heart failure), NYHA class III 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 Mild chronic anemia Nonrheumatic aortic (valve) stenosis Non-Hodgkin lymphoma Obesity Splenic artery aneurysm Type 2 diabetes mellitus Kidney stones HLD (hyperlipidemia) Current Diet Ordered: NPO Dentition: Upper Dentures and Lower Dentures Mental Status: Impaired (AMS, but able to follow commands for the evaluation) Respiratory Status: Oxygenating on Room Air Penetration-Aspiration Scale Penetration-Aspiration Scale: OBJECTIVE ASSESSMENT OF SWALLOW FUNCTION (QUANTITATIVE – PER TRIAL): PENETRATION / ASPIRATION SCALE (VALDERRAMA): 1 = does not enter airway 2 = enters airway/above vocal folds/ejected 3 = enters airway/above vocal folds/not ejected 4 = enters airway/contacts vocal folds/ejected 5 = enters airway/contacts vocal folds/not ejected 6 = enters airway/below vocal folds/ejected 7 = enters airway/below vocal folds/not ejected despite effort 8 = enters airway/below vocal folds/no effort VIDEOFLOROSCOPIC SCALE SCORE (VALDERRAMA): Grade I = aspiration of material that has penetrated into the laryngeal vestibule, intact cough reflex Grade II = aspiration < 10 % of the bolus, intact cough reflex Grade III = aspiration of < 10 % of the bolus, reduced cough reflex or aspiration of > 10 % of the bolus, intact cough reflex Grade IV = aspiration of > 10 % of the bolus, reduced cough reflex Penetration-Aspiration Scale Score Thin Liquid via teaspoon: Result: 2= enter airway/above vocal folds/ejected Thin Liquid via teaspoon Trial 2: Result: 2= enter airway/above vocal folds/ejected Thin Liquid via small single sip: cup: Result: 2= enter airway/above vocal folds/ejected Geyser Thick Liquid via small single sip: cup: Result: 8= enters airway/below vocal folds/no effort Pudding via teaspoon: Result: 1= does not enter airway Comment: Esophageal screen = Complete clearance. Cued cough = mostly effective in clearing aspirated contrast from previous trial Thin Liquid via single sip: straw: Result: 2= enter airway/above vocal folds/ejected 1/4 Cookie: Result: 1= does not enter airway Thin Liquid via single sip: straw Trial 2: Result: 5= enters airways/contacts vocal folds/not ejected Comment: Silent post prandial aspiration Cued cough 2X = mostly effective in clearing aspirated contrast Thin Liquid via small single sip: cup Trial 2: Result: 1= does not enter airway Honey Thick Liquid via small single sip: cup: Result: 1= does not enter airway Oral Phase Labial Seal: Escape beyond mid-chin Tongue Control During Bolus Hold: Posterior escape of less than half of bolus Bolus Preparation/Mastication: Disorganized chewing/mashing with solid pieces of bolus unchewed Bolus Transport/Lingual Motion: Repetitive/disorganized tongue motion Pharyngeal Phase Initiation of Pharyngeal Swallow: Bolus head in pyriforms Soft Palate Elevation: Trace column of contrast/air between soft palate and pharyngeal wall Laryngeal Elevation: Partial superior movement thyroid cart/partial apprx aryt-epig petiole Anterior Hyoid Excursion: Partial anterior movement Epiglottic Movement: Partial inversion Laryngeal Vestibule Closure at Height of Swallow: Incomplete; narrow column of air/contrast in laryngeal vestibule Pharyngeal Stripping Wave: Present - diminished Pharyngoesophageal Segment Opening: Parital distension and partial duration; parital obstruction of flow Tongue Base Retraction: Wide column of contrast between tongue base & post. pharyngeal wall Pharyngeal Residue: Collection of residue within or on pharyngeal structures Esophageal Phase Esophageal Clearance: Complete clearance Diagnosis/Impression Diagnosis: Moderate oropharyngeal dysphagia R13.12 MBS Impressions: The oral phase is primarily marked by... -Premature posterior loss of <1/2 of liquids to the pyriform sinuses prior to swallow onset. -Slowed and disorganized tongue motion for A-P transport. -Small pieces of regular textured cookie were not fully masticated. Recommend soft and bite size textures. -Mild oral residues. The pharyngeal phase is primarily marked by... -Delayed swallow onset. -Decreased pharyngeal motility due to decreased TB retraction and pharyngeal stripping wave. Liquid wash somewhat cleared pharyngeal residues. -Decreased airway closure due to decreased anterior hyoid excursion, partial epiglottic inversion, and decreased laryngeal elevation. SILENT aspiration of mildly thick liquids via cup (during the swallow) and thin liquids via straw (after the swallow). Other findings: Pt presents w/ large anterior cervical osteophytes from C2-C6 (only visible C2-C4 during 04/26/25 study), which were noted during prior MBSS in April of 2024. Osteophytes did appear to negatively impact pharyngeal stripping wave and impede epiglottic inversion. Recommendations Diet: Soft and Bite Sized Textures and Thin Liquids Comment: Frequent oral care Compensatory Strategies: Small Bites, Small Sips, No Straws, Slow Rate, Alternate bites/solids and sips/liquids, Sitting upright and Remain sitting upright for 30 minutes after PO intake Supervision: 1:1 Direct Supervision (Feeding Assistance) Recommend Repeat Modified Barium Swallow: TBD Need for Skilled Speech Therapy Services: Yes Comment: -Train the patient and his in use of strategies to decrease risk for aspiration. -Ongoing assessment of diet tolerance of recommended textures. Monitor respiratory status closely. -Train the patient in a thorough oral care routine. -Train the patient in oropharyngeal exercise program to improve bolus control/transport, pharyngeal motility, and airway closure (lingual resistance/coordination exercises, Prerna, effortful, CTAR). Education Completed: 1. Described result of evaluation. and 2. Pt understands evaluation & agrees with goals and treatment plan. Status Active ST Patient: Active Contact Information [facility] Speech Therapy:: Yun Sutton M.A. [facility] Speech-Language Pathologist [facility] [address] [place] [address] [email or web address] [phone]
--- NOTE | 2025-03-21 15:14 | CASEMGMT ---
Discharge Planning A list of SNF providers including quality and resource use data and consistent with the patient's preferred geographic region, medical needs, and insurance network was created in [employer] Guide. This list was provided to the RUBIN. Deborah Ferguson Discharge Planning Asst
--- NOTE | 2025-03-21 15:16 | CASEMGMT ---
Social Work A list of SNF providers including quality and resource use data and consistent with the patient's preferred geographic region, medical needs, and insurance network was created in [employer] Guide. SW called the and explained SW left the list in the patients room. The reported they are going to have palliative care services. SW explained SW can meet with the and patient in the morning to discuss options. Plan: SW plans to meet with the and discuss options in the morning. BRANDY Morfin
--- NOTE | 2025-03-21 15:18 | CASEMGMT ---
FRANKY LUTZ upated by Inpatient Pallaitive PHLEBOTOMY SUPPORT TECH that patient and would like [facility] at discharge. FRANKY LUTZ received order for palliative consult. FRANKY LUTZ made referral to [facility] via [facility]. FRANKY LUTZ updated SW.
[2025-03-21] MEDS: Doxycycline monohydrate 25 MG/5 ML SUSP. 100 MG PO (21:16)
[2025-03-22 03:05] VITALS: BP 147/75; PULSE 89; RESP 18; TEMP 36; O2SAT 93
[2025-03-22 04:15] VITALS: BMI 33.7
--- NOTE | 2025-03-22 04:45 | EKG12_ITS ---
Test Reason : TACHYCARDIA Blood Pressure : */* mmHG Vent. Rate : 128 BPM Atrial Rate : * BPM P-R Int : * ms QRS Dur : 144 ms QT Int : 358 ms P-R-T Axes : * -30 130 degrees QTcB Int : 522 ms Atrial fibrillation with rapid ventricular response Left axis deviation Left bundle branch block Abnormal ECG When compared with ECG of 21-Mar-2025 05:48, Atrial fibrillation has replaced Sinus rhythm Vent. rate has increased by 42 bpm Left bundle branch block is now Present Confirmed by SABI VILLANUEVA, SERGIO ([id number]), advertising editor CHRISTEN BEAR ([id number]) on 03/26/2025 9:30:43 AM Referred By: Confirmed By: SERGIO CELESTIN MD
[2025-03-22 04:51] VITALS: BP 130/65; PULSE 128
[2025-03-22 05:00] LABS: Hematocrit 29.9 % (40-54); Hemoglobin 10.0 g/dL (13.0-16.5); Immature Granulocytes Count 0.080 X10^3/uL (0.0-0.0); Mean Corp Hgb Conc 33.4 g/dL (32-36); Mean Corpuscular Volume 88.7 fL (80-94); Mean Platelet Vol. 11.5 fl (6.2-12.0); NRBC Flagged by Analyzer 0 % (0-5); Platelet Count 193 K/mm3 (150-450); RBC Distribution Width CV 14.6 % (11.6-14.6); RBC Distribution Width SD 47.1 fl (35.1-43.9); Red Blood Count 3.37 M/mm3 (4.6-6.2); White Blood Count 14.4 K/mm3 (4.4-11.0)
[2025-03-22 05:35] VITALS: PULSE 128
[2025-03-22 05:35] LABS: Anion Gap 13 (5-15); BUN 28 mg/dL (4-19); BUN/Creat Ratio 17.3 RATIO (10-20); Calcium,Total 9.0 mg/dL (7.6-11.0); Carbon Dioxide 21.2 mmol/L (21.0-32.0); Chloride 102 mmol/L (98-108); Estimated Creatinine Clearance 43.46 ml/min (50-250); Glucose 169 mg/dL (70-99); Potassium 4.3 mmol/L (3.3-5.1)
[2025-03-22] MEDS: Metoprolol(XL)Succ 50 MG Tablet PO ×2 (05:35→09:19)
--- NOTE | 2025-03-22 09:00 | PCM.PN.HOSP ---
Reason for Visit Chief Complaint: Weakness, debility, fall. Objective Data Objective Data Vital Signs: Vital Signs Temp Pulse Resp BP Pulse Ox O2 Del Method 96.8 F L 128 H 18 130/65 H 93 Room Air 03/22/25 03:05 03/22/25 05:35 03/22/25 03:05 03/22/25 04:51 03/22/25 03:05 03/22/25 08:15 Oxygen Delivery Method Room Air Weight: 248 lb 7.375 oz Body Mass Index (BMI) 33.7 Intake & Output: Intake and Output for Last 24 Hours 03/20/25 03/21/25 03/22/25 23:59 23:59 23:59 Intake Total 400 / 400 600 / 600 Output Total 200 / 200 700 / 700 Balance 200 / 200 -100 / -100 Lab / Micro Data 03/22/25 04:15 03/22/25 04:15 Labs: Laboratory Results - last 24 hr 03/21/25 11:54: POC Glucose 174 H 03/21/25 16:45: POC Glucose 163 H 03/21/25 21:06: POC Glucose 174 H 03/22/25 04:15: WBC 14.4 H, RBC 3.37 L, Hgb 10.0 L, Hct 29.9 L, MCV 88.7, MCH 29.7, MCHC 33.4, RDW Std Deviation 47.1 H, RDW Coeff of Wendy 14.6, Plt Count 193, MPV 11.5, Immature Gran % (Auto) 0.600, Neut % (Auto) 85.9 H, Lymph % (Auto) 6.2 L, [place] % (Auto) 6.8, Eos % (Auto) 0.2, Baso % (Auto) 0.3, Absolute Neuts (auto) 12.4 H, Absolute Lymphs (auto) 0.89, Nucleated RBC % 0, Sodium 136, Potassium 4.3, Chloride 102, Carbon Dioxide 21.2, Anion Gap 13, BUN 28 H, Creatinine 1.64 H, Estim Creat Clear Calc 43.46 L, Est GFR (MDRD) Non-Af 41 L, BUN/Creatinine Ratio 17.3, Glucose 169 H, Calcium 9.0 03/22/25 06:27: POC Glucose 160 H Micro: Microbiology 03/20/25 16:38 Mucosa - Nose SARS-CoV-2, Influenza & RSV (PCR) - Final Rhythm Strip Ectopy: - (Irregular rhythm noted on auscultation and palpation) Physical Exam Narrative Seen and examined Patient has multiple comorbidities and has been gradually declining for 4 weeks. Hard to transfer, ambulate and fall. Physical exam General: Alert, Oriented x3, Cooperative. BMI 34.1 kg per square HEENT: Atraumatic, PERRLA, EOMI, Normocephalic. Oral: No Gingival or Mucosal Lesions/ Ulcerations Neck: Supple, No JVD, Negative Carotid Bruits Chest wall/Lungs: Air entry diminished in bilateral lungs. No crepitation/rhonchi Cardiovascular: Sinus rhythm, normal S1,S2, systolic murmur Abdomen: Bowel Sounds Present, Soft, Non Tender, Non-Distended : No dysuria. No renal angle tenderness. No suprapubic tenderness. Extremities: Mild pitting bilateral ankle edema, Capillary Refill Less than 3 Seconds Skin: No rashes, No breakdown Musculoskeletal: No Tenderness to Palpation of Joints or Extremities. ROM severely limited. Degenerative arthritis of knees and hips. Increase in stiffness/tone of muscles muscle strength 4+/5 at knees and hip joints spine: Spine: Difficulty in turning around from supine to lateral or prone. ROM limited over thoracic and lumbar spine Neurological: Cranial nerves II-XII grossly intact, DTR 2+/4. No acute focal neurological deficit. Psych/Mental Status: Flat Assessment & Plan Assessment/Plan (1) Failure to thrive in adult: PLAN: Plan The patient is an 84 y/o M was admitted with worsening weakness, for 3 to 4 weeks could not transfer from bed to commode, fell down hit on head on something. No significant injury or LOC. Parkinson's disease. Low-grade fever at home. Pressure sores on the buttock. History of non-Hodgkin's lymphoma status post chemoradiation 2006 1. Acute debility with progressive weakness, inability to do ADL, failure to thrive, fall: Patient is being admitted in the PCU. Fall and aspiration precaution. PT OT and case management Patient has limited mobility with high risk fall due to Parkinson disease. Palliative care consulted Suspicion of right lower lobe infiltrate/pneumonia with leukocytosis/bronchiectasis on x-ray: Patient had 19,000 leukocytosis, 89% neutrophil 3.5% lymphocyte. Immature granulocytes normal. Platelet count 202. Leukocytosis improving. Started on IV ceftriaxone and doxycycline. Patient had 1 dose of ceftriaxone and doxycycline in ED. Radiologist also reported right midlung zone bronchiectasis though I could not appreciate it. Patient had history of smoking and quit in 2006. #2. 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 Chest x-ray no acute cardiopulmonary finding. Troponin 96, 100, 101, no significant delta change. Patient had cardiac cath in August 2021 with no evidence of any high-grade stenosis. Continue home medication aspirin, statin. Not on MAI or ARB secondary to renal disease 3. PAF/flutter: Not on any rate or rhythm agents, previously on Eliquis however given significant fall risk Eliquis was eventually discontinued. Patient had TAVR and no significant recurrence of atrial fibrillation or flutter event #5. Chronic HFrEF: Most recent echocardiogram as noted 04/24/2024 with LVEF 40%, normal LV size, mild concentric LVH, mild to moderate global hypokinesis LV, bioprosthetic AV, continue Lasix. #6. Chronic Kidney Disease Stage IIIb: Admission BUN/Cr 28/1.86, GFR 35, baseline renal function primarily 1.5-1.9, she follows Dr. Nakia aLboy #7. Chronic normocytic anemia/iron deficiency anemia: Admission hemoglobin 10.3, MCV 88.8, baseline hemoglobin primarily more recently 10 range, stable, continue to trend, continue iron supplementation. #8. Parkinson's disease of unclear specific extent/severity: Will continue patient home Sinemet and rivastigmine regimen, complicates presentation, maintain on fall and aspiration precautions, PT/OT/case management consulted for discharge planning. #9. Hx Non-Hodgkin's lymphoma/diffuse large B-cell lymphoma: Status post chemo and radiation 2006, consider remission, encourage follow-up with oncology as previously arranged. #10. Diabetes mellitus type II with chronic neuropathy: Hold oral home regimen, ADA diet, accu checks w/ ISS, continue home gabapentin regimen. #11. Anxiety and depression: Will continue patient home sertraline regimen as well as low-dose as needed lorazepam however will hold for sedation. #12. Valvular heart disease: Status post TAVR, most recent echocardiogram 04/24/2024 with LVEF 40%, normal LV size, mild concentric LVH, mild to moderate global hypokinesis LV, bioprosthetic AV, mean aortic gradient 10 mmHg. #13. Hypertension: Continue home regimen including Lasix with hold parameters as needed, PRN hydralazine. #14. Hyperlipidemia: Continue home statin regimen. 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 DVT prophylaxis: Lovenox. CODE status: Patient MANN is his who is present and living will is currently in place. Discussed CODE status at length including difference between FULL code, DNR-CCA and DNR-CC status. Following discussions about the differences in these status, requested Full Code status.
[2025-03-22] MEDS: Aspirin E.C. 81 MG Tablet PO (09:16)
[2025-03-22 09:19] VITALS: BP 128/76; PULSE 71
[2025-03-22 09:28] VITALS: BP 128/76; PULSE 71; RESP 16; TEMP 36.6; O2SAT 97
--- NOTE | 2025-03-22 10:19 | CASEMGMT ---
Social Work SW spoke with the patient and his . The 1st choice to SNF is TCU. SW sent a referral to TCU. BRANDY Chaney
--- NOTE | 2025-03-22 11:05 | PCM.TXEXTCAR ---
Diet Diet Order/Speech Therapy: INPATIENT Hospital Diet / Speech Therapy Order(s) 03/21/25 14:31 Diet: Cardiac - Heart Healthy Food consistency:: Soft & Bite Sized Liquid Consistency:: Regular/Thin Dietary Modifications:: Consistent Carbohydrate Speech Therapy Comments: No straws, Direct sup/feeding assist,Small sips 1@ time, Meds whole in Routine Orders/Code Status Suppository Type: Dulcolax 10mg Suppository Frequency: Daily PRN DC O2, CPAP, BIPAP needs Home O2 Discharge instructions: No Wound(s) Coccyx: Wound Type: Pressure Injury Therapies Extremity Affected:: Bilateral Lower Physical Therapy: Eval and Treat Occupational Therapy: Eval and Treat Speech Therapy: Eval and Treat Problem/Diagnosis (1) Failure to thrive in adult: Status: Acute Code(s): R62.7 - Adult failure to thrive Plan The patient is an 84 y/o M was admitted with worsening weakness, for 3 to 4 weeks could not transfer from bed to commode, fell down hit on head on something. No significant injury or LOC. Parkinson's disease. Low-grade fever at home. Pressure sores on the buttock. History of non-Hodgkin's lymphoma status post chemoradiation 2006 1. Acute debility with progressive weakness, inability to do ADL, failure to thrive, fall: Patient is being admitted in the PCU. Fall and aspiration precaution. PT OT and case management Patient has limited mobility with high risk fall due to Parkinson disease. Palliative care consulted Suspicion of right lower lobe infiltrate/pneumonia with leukocytosis/bronchiectasis on x-ray: Patient had 19,000 leukocytosis, 89% neutrophil 3.5% lymphocyte. Immature granulocytes normal. Platelet count 202. Leukocytosis improving. Started on IV ceftriaxone and doxycycline. Patient had 1 dose of ceftriaxone and doxycycline in ED. Radiologist also reported right midlung zone bronchiectasis though I could not appreciate it. Patient had history of smoking and quit in 2006. #2. 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 Chest x-ray no acute cardiopulmonary finding. Troponin 96, 100, 101, no significant delta change. Patient had cardiac cath in August 2021 with no evidence of any high-grade stenosis. Continue home medication aspirin, statin. Not on MAI or ARB secondary to renal disease 3. PAF/flutter: Not on any rate or rhythm agents, previously on Eliquis however given significant fall risk Eliquis was eventually discontinued. Patient had TAVR and no significant recurrence of atrial fibrillation or flutter event #5. Chronic HFrEF: Most recent echocardiogram as noted 04/24/2024 with LVEF 40%, normal LV size, mild concentric LVH, mild to moderate global hypokinesis LV, bioprosthetic AV, continue Lasix. #6. Chronic Kidney Disease Stage IIIb: Admission BUN/Cr 28/1.86, GFR 35, baseline renal function primarily 1.5-1.9, she follows Dr. Nakia Laboy #7. Chronic normocytic anemia/iron deficiency anemia: Admission hemoglobin 10.3, MCV 88.8, baseline hemoglobin primarily more recently 10 range, stable, continue to trend, continue iron supplementation. #8. Parkinson's disease of unclear specific extent/severity: Will continue patient home Sinemet and rivastigmine regimen, complicates presentation, maintain on fall and aspiration precautions, PT/OT/case management consulted for discharge planning. #9. Hx Non-Hodgkin's lymphoma/diffuse large B-cell lymphoma: Status post chemo and radiation 2006, consider remission, encourage follow-up with oncology as previously arranged. #10. Diabetes mellitus type II with chronic neuropathy: Hold oral home regimen, ADA diet, accu checks w/ ISS, continue home gabapentin regimen. #11. Anxiety and depression: Will continue patient home sertraline regimen as well as low-dose as needed lorazepam however will hold for sedation. #12. Valvular heart disease: Status post TAVR, most recent echocardiogram 04/24/2024 with LVEF 40%, normal LV size, mild concentric LVH, mild to moderate global hypokinesis LV, bioprosthetic AV, mean aortic gradient 10 mmHg. #13. Hypertension: Continue home regimen including Lasix with hold parameters as needed, PRN hydralazine. #14. Hyperlipidemia: Continue home statin regimen. 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 DVT prophylaxis: Lovenox. CODE status: Patient MANN is his who is present and living will is currently in place. Discussed CODE status at length including difference between FULL code, DNR-CCA and DNR-CC status. Following discussions about the differences in these status, requested Full Code status. Allergies/Procedures Done in Hospital Allergies No Known Allergies Allergy (Verified 03/20/25 16:14) Type of Care/Length of Stay Estimated LOS: Convalescent Care Less Than 30 days Type of Care Needed: Skilled Rehab Potential: Good Prognosis: Good Additional Orders/Day of Discharge Day of Discharge: 03/22/25 Dietary and Speech Recommendations Dietitian Recommendations/Changes: Recommend Consistent carbohydrate/Cardiac diet with texture/consistency per THERAPEUTIC RADIOLOGIST to manage medical conditions. Discharge Plan Admission Admit Date/Time: 03/20/25 20:11 Attending Provider: Juan Carlos Martínez Primary Care Provider: Lalo Hwang Consulting Providers: Ave Rivero; Agatha Davis Discharge Orders/Prescriptions Prescriptions: New doxycycline monohydrate 25 mg/5 mL Suspension For Reconstitution 100 mg PO Q12 5 Days Qty: 200 0RF sennosides-docusate sodium [Stimulant Laxative Plus] 8.6-50 mg Tablet 2 tab PO BID PRN PRN (Reason: Constipation) Qty: 0 0RF guaifenesin 100 mg/5 mL Liquid 200 mg PO Q4H PRN PRN (Reason: Cough) Qty: 0 0RF Rx Instructions: For 7 days cefdinir 125 mg/5 mL suspension for reconstitution 300 mg PO BID 5 Days Qty: 120 0RF Continued atorvastatin 40 mg tablet 40 mg PO QHS sertraline 50 mg tablet 50 mg PO DAILY Januvia 50 mg tablet 50 mg PO DAILY metformin 500 mg tablet extended release 24 hr 500 mg PO BID Rx Instructions: resume 01/27/2020 mecobalamin (vitamin B12) 1,000 mcg tablet,chewable 1,000 mcg PO DAILY carbidopa-levodopa 25-100 mg tablet 1 tab PO TID gabapentin 300 mg capsule 300 mg PO BID folic acid 1 mg Tablet 1 mg PO DAILY furosemide 40 mg tablet 40 mg PO DAILY lorazepam 0.5 mg Tablet 0.5 mg PO Q4H PRN (Reason: aggitation & restlessness) ferrous gluconate 324 mg (37.5 mg iron) Tablet 325 mg PO BID metoprolol succinate 50 mg tablet extended release 24 hr 50 mg PO BID tamsulosin [Flomax] 0.4 mg capsule 0.4 mg PO BID rivastigmine tartrate 1.5 mg Capsule 1.5 mg PO BIDCM 30 Days Qty: 60 0RF aspirin [Adult Low Dose Aspirin] 81 mg tablet,delayed release (DR/EC) 81 mg PO QDAY Referrals / Follow Up: Lalo Hwang MD [Primary Care Provider, Medical] - Within 2 Weeks Agatha Davis NP-C [Med Staff - Active Staff, Palliative Medicine] - Within 1 Month Disposition Disposition (needs filled in before D/C Order can be placed): Shelter Facility
--- NOTE | 2025-03-22 11:16 | CASEMGMT ---
Social Work RUBIN spoke with the patient and the . RUBIN explained the patient has been accepted at [facility] and the request for approval has been sent to the insurance company. RUBIN explained the insurance can deny it. RUBIN informed them SW will keep them updated. Plan: RUBIN will provide updates to the patient and as received. BRANDY Chaney
--- NOTE | 2025-03-22 12:48 | CASEMGMT ---
Social Work TCU received precert. Patient will DC today to TCU. SW informed the patient, his , the nurse and physician that the patient is approved to DC to TCU BRANDY Chaney
--- NOTE | 2025-03-22 13:03 | PCM.DC.SUM ---
Providers Date of Admission: 03/20/25 Date of Discharge: 03/22/25 Primary Care Physician: Dr. Lalo Hwang MD Consultations 03/21/25 10:03 Consult: Inpatient Palliative Care Routine Consulting Provider: Agatha Davis Reason for Consult: Goals of care EMERGENT Consult: No MD Notified: Yes Date Notified: 03/21/25 Time Notified: 10:03 Method of Notification: Text Reason For Visit: INDETERM TROP, FALLS, ADULT FTT Diagnosis Discharge Diagnosis (1) Failure to thrive in adult: Status: Acute Code(s): R62.7 - Adult failure to thrive Plan The patient is an 84 y/o M was admitted with worsening weakness, for 3 to 4 weeks could not transfer from bed to commode, fell down hit on head on something. No significant injury or LOC. Parkinson's disease. Low-grade fever at home. Pressure sores on the buttock. History of non-Hodgkin's lymphoma status post chemoradiation 2006 05. Acute debility with progressive weakness, inability to do ADL, failure to thrive, fall: Patient is being admitted in the PCU. Fall and aspiration precaution. PT OT and case management Patient has limited mobility with high risk fall due to Parkinson disease. Palliative care consulted 03/22: Patient was evaluated by speech therapist and recommended soft and bite sized food. Patient also gets intermittently disoriented with history of Parkinson disease with probability of mild cognitive deficits/early dementia. Advised follow-up with PCP. Patient approved for tissue and is being discharged. Suspicion of right lower lobe infiltrate/pneumonia with leukocytosis/bronchiectasis on x-ray: Patient had 19,000 leukocytosis, 89% neutrophil 3.5% lymphocyte. Immature granulocytes normal. Platelet count 202. Leukocytosis improving. Started on IV ceftriaxone and doxycycline. Patient had 1 dose of ceftriaxone and doxycycline in ED. Radiologist also reported right midlung zone bronchiectasis though I could not appreciate it. Patient had history of smoking and quit in 2006. 03/22: Patient discharged on 5 more days of cefdinir and doxycycline to complete antibiotic course. Blood cultures x 2 pending but Triple PCR for SARS-CoV-2, flu and RSV are negative #2. 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 Chest x-ray no acute cardiopulmonary finding. Troponin 96, 100, 101, no significant delta change. Patient had cardiac cath in August 2021 with no evidence of any high-grade stenosis. Continue home medication aspirin, statin. Not on MAI or ARB secondary to renal disease 3. PAF/flutter: Not on any rate or rhythm agents, previously on Eliquis however given significant fall risk Eliquis was eventually discontinued. Patient had TAVR and no significant recurrence of atrial fibrillation or flutter event 03/22 currently patient normal sinus rhythm, heart rate controlled. Continue home medication #5. Chronic HFrEF: Most recent echocardiogram as noted 04/24/2024 with LVEF 40%, normal LV size, mild concentric LVH, mild to moderate global hypokinesis LV, bioprosthetic AV, continue Lasix. #6. Chronic Kidney Disease Stage IIIb: Admission BUN/Cr 28/1.86, GFR 35, baseline renal function primarily 1.5-1.9, she follows Dr. Nakia Laboy #7. Chronic normocytic anemia/iron deficiency anemia: Admission hemoglobin 10.3, MCV 88.8, baseline hemoglobin primarily more recently 10 range, stable, continue to trend, continue iron supplementation. #8. Parkinson's disease of unclear specific extent/severity: Will continue patient home Sinemet and rivastigmine regimen, complicates presentation, maintain on fall and aspiration precautions, PT/OT/case management consulted for discharge planning. #9. Hx Non-Hodgkin's lymphoma/diffuse large B-cell lymphoma: Status post chemo and radiation 2006, consider remission, encourage follow-up with oncology as previously arranged. #10. Diabetes mellitus type II with chronic neuropathy: Hold oral home regimen, ADA diet, accu checks w/ ISS, continue home gabapentin regimen. #11. Anxiety and depression: Will continue patient home sertraline regimen as well as low-dose as needed lorazepam however will hold for sedation. #12. Valvular heart disease: Status post TAVR, most recent echocardiogram 04/24/2024 with LVEF 40%, normal LV size, mild concentric LVH, mild to moderate global hypokinesis LV, bioprosthetic AV, mean aortic gradient 10 mmHg. #13. Hypertension: Continue home regimen including Lasix with hold parameters as needed, PRN hydralazine. #14. Hyperlipidemia: Continue home statin regimen. 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 DVT prophylaxis: Lovenox. Living will/advanced directive/end of life care: Patient does have living will or advanced directive. His is power of customer solutions representative for health. After discussion of benefits/risks procedures involved with full code, DNR CC arrest and DNR CC, the patient opted for DNR CC arrest with no intubation. Similarly CODE STATUS was changed on 03/21/2025 Patient doesn't want artificial life support including intubation, tube feed, ventilator and/chest compression, central venous catheter, vasopressor and DC shock if needed Total time spent in [id number] encounter in discussion of advanced directive 17 minutes. Discharge medication reconciliation done. Discharge follow-up instructions completed. Discharge process discussed with the patient and all questions were answered to patient's satisfaction. Follow with PCP in 1 to 2 weeks Total time spent, exact 35 minutes on discharge meds reconciliation, examination, coordination of care with nurses and ancillary staff, review of imaging and blood test and discussion with the patient on follow-up instructions. Medications at Discharge Home Medications folic acid 1 mg tablet 1 mg PO DAILY [facility] 11/11/21 atorvastatin 40 mg tablet 40 mg PO QHS cholesterol 02/20/22 sertraline 50 mg tablet 50 mg PO DAILY Depression 02/20/22 mecobalamin (vitamin B12) 1,000 mcg chewable tablet 1,000 mcg PO DAILY [facility] department 11/16/23 metformin 500 mg tablet,extended release 24 hr 500 mg PO BID DM 11/16/23 sitagliptin phosphate 50 mg tablet (Januvia) 50 mg PO DAILY Diabetes 11/16/23 tamsulosin 0.4 mg capsule (Flomax) 0.4 mg PO BID bladder 04/24/24 rivastigmine tartrate 1.5 mg capsule 1.5 mg PO BIDCM 30 days #60 caps 05/16/24 gabapentin 300 mg capsule 300 mg PO BID 08/09/24 ferrous gluconate 324 mg (37.5 mg iron) tablet 325 mg PO BID [facility] 09/03/24 furosemide 40 mg tablet 40 mg PO DAILY water pill 09/03/24 lorazepam 0.5 mg tablet 0.5 mg PO Q4H PRN aggitation & restlessness 09/03/24 aspirin 81 mg tablet,delayed release (Adult Low Dose Aspirin) 81 mg PO QDAY 10/06/24 carbidopa 25 mg-levodopa 100 mg tablet 1 tab PO TID 11/14/24 cefdinir 125 mg/5 mL oral suspension 300 mg (12 mL) PO BID 5 days #120 mL 03/22/25 doxycycline monohydrate 25 mg/5 mL oral suspension 100 mg (20 mL) PO Q12 5 days #200 mL 03/22/25 guaifenesin 100 mg/5 mL oral liquid 200 mg (10 mL) PO Q4H PRN PRN Cough #0 mL 03/22/25 metoprolol succinate 50 mg tablet,extended release 24 hr 50 mg PO BID heart rate 03/22/25 sennosides 8.6 mg-docusate sodium 50 mg tablet (Stimulant Laxative Plus) 2 tab PO BID PRN PRN Constipation #0 tabs 03/22/25 Physical Exam Narrative Seen and examined Patient been evaluated by PT OT and speech therapy. Recommended SNF. Patient has multiple comorbidities and has been gradually declining for 4 weeks. Hard to transfer, ambulate and fall. Physical exam General: Alert, Oriented x3, Cooperative. BMI 34.1 kg per square HEENT: Atraumatic, PERRLA, EOMI, Normocephalic. Oral: No Gingival or Mucosal Lesions/ Ulcerations Neck: Supple, No JVD, Negative Carotid Bruits Chest wall/Lungs: Air entry diminished in bilateral lungs. No crepitation/rhonchi Cardiovascular: Sinus rhythm, normal S1,S2, systolic murmur Abdomen: Bowel Sounds Present, Soft, Non Tender, Non-Distended : No dysuria. No renal angle tenderness. No suprapubic tenderness. Extremities: Mild pitting bilateral ankle edema, Capillary Refill Less than 3 Seconds Skin: No rashes, No breakdown Musculoskeletal: No Tenderness to Palpation of Joints or Extremities. ROM severely limited. Degenerative arthritis of knees and hips. Increase in stiffness//hypertonia, power 4+/5 at knees and hip joints Spine: Difficulty in turning around from supine to lateral or prone. ROM limited over thoracic and lumbar spine Neurological: Cranial nerves II-XII grossly intact, DTR 2+/4. No acute focal neurological deficit. Psych/Mental Status: Flat Weight / BMI Weight Weight: 248 lb 7.375 oz Body Mass Index (BMI) 33.7 ABG / Lab / Microbiology Data 03/22/25 04:15 03/22/25 04:15 Laboratory: Laboratory Results - last 24 hr 03/21/25 16:45: POC Glucose 163 H 03/21/25 21:06: POC Glucose 174 H 03/22/25 04:15: WBC 14.4 H, RBC 3.37 L, Hgb 10.0 L, Hct 29.9 L, MCV 88.7, MCH 29.7, MCHC 33.4, RDW Std Deviation 47.1 H, RDW Coeff of Wendy 14.6, Plt Count 193, MPV 11.5, Immature Gran % (Auto) 0.600, Neut % (Auto) 85.9 H, Lymph % (Auto) 6.2 L, [place] % (Auto) 6.8, Eos % (Auto) 0.2, Baso % (Auto) 0.3, Absolute Neuts (auto) 12.4 H, Absolute Lymphs (auto) 0.89, Nucleated RBC % 0, Sodium 136, Potassium 4.3, Chloride 102, Carbon Dioxide 21.2, Anion Gap 13, BUN 28 H, Creatinine 1.64 H, Estim Creat Clear Calc 43.46 L, Est GFR (MDRD) Non-Af 41 L, BUN/Creatinine Ratio 17.3, Glucose 169 H, Calcium 9.0 03/22/25 06:27: POC Glucose 160 H 03/22/25 12:29: POC Glucose 172 H Microbiology: Microbiology 03/20/25 16:38 Mucosa - Nose SARS-CoV-2, Influenza & RSV (PCR) - Final D/C Instructions DC O2, CPAP, BIPAP Needs Home O2 Discharge instructions: No Meaningful Use Info Meaningful Use Meaningful Use Diagnoses (Choose all that apply): None applicable Discharge Plan Admission Admit Date/Time: 03/20/25 20:11 Attending Provider: Juan Carlos Martínez Primary Care Provider: Lalo Hwang Consulting Providers: Ave Rivero; Agatha Davis Discharge Orders/Prescriptions Prescriptions: New doxycycline monohydrate 25 mg/5 mL Suspension For Reconstitution 100 mg PO Q12 5 Days Qty: 200 0RF sennosides-docusate sodium [Stimulant Laxative Plus] 8.6-50 mg Tablet 2 tab PO BID PRN PRN (Reason: Constipation) Qty: 0 0RF guaifenesin 100 mg/5 mL Liquid 200 mg PO Q4H PRN PRN (Reason: Cough) Qty: 0 0RF Rx Instructions: For 7 days cefdinir 125 mg/5 mL suspension for reconstitution 300 mg PO BID 5 Days Qty: 120 0RF Continued atorvastatin 40 mg tablet 40 mg PO QHS sertraline 50 mg tablet 50 mg PO DAILY Januvia 50 mg tablet 50 mg PO DAILY metformin 500 mg tablet extended release 24 hr 500 mg PO BID Rx Instructions: resume 01/27/2020 mecobalamin (vitamin B12) 1,000 mcg tablet,chewable 1,000 mcg PO DAILY carbidopa-levodopa 25-100 mg tablet 1 tab PO TID gabapentin 300 mg capsule 300 mg PO BID folic acid 1 mg Tablet 1 mg PO DAILY furosemide 40 mg tablet 40 mg PO DAILY lorazepam 0.5 mg Tablet 0.5 mg PO Q4H PRN (Reason: aggitation & restlessness) ferrous gluconate 324 mg (37.5 mg iron) Tablet 325 mg PO BID metoprolol succinate 50 mg tablet extended release 24 hr 50 mg PO BID tamsulosin [Flomax] 0.4 mg capsule 0.4 mg PO BID rivastigmine tartrate 1.5 mg Capsule 1.5 mg PO BIDCM 30 Days Qty: 60 0RF aspirin [Adult Low Dose Aspirin] 81 mg tablet,delayed release (DR/EC) 81 mg PO QDAY Referrals / Follow Up: Lalo Hwang MD [Primary Care Provider, Medical] - Within 2 Weeks Agatha Davis NP-C [Med Staff - Active Staff, Palliative Medicine] - Within 1 Month Disposition Disposition (needs filled in before D/C Order can be placed): [facility] Facility Charges/Coding Visit Charges Inpatient E&M: 97571 Disch Hosp >30min
--- NOTE | 2025-03-22 13:19 | PHA.DC_ITS ---
Pharmacy [facility] Reconciliation Pharmacy Service has performed discharge medication reconciliation for this patient. The patient's discharge medication list was reviewed for discrepancies and discrepancies were resolved. Medications at Discharge Home Medications folic acid 1 mg tablet 1 mg PO DAILY [facility] 11/11/21 atorvastatin 40 mg tablet 40 mg PO QHS cholesterol 02/20/22 sertraline 50 mg tablet 50 mg PO DAILY Depression 02/20/22 mecobalamin (vitamin B12) 1,000 mcg chewable tablet 1,000 mcg PO DAILY [facility] 11/16/23 metformin 500 mg tablet,extended release 24 hr 500 mg PO BID DM 11/16/23 sitagliptin phosphate 50 mg tablet (Januvia) 50 mg PO DAILY Diabetes 11/16/23 tamsulosin 0.4 mg capsule (Flomax) 0.4 mg PO BID bladder 04/24/24 rivastigmine tartrate 1.5 mg capsule 1.5 mg PO BIDCM 30 days #60 caps 05/16/24 gabapentin 300 mg capsule 300 mg PO BID 08/09/24 ferrous gluconate 324 mg (37.5 mg iron) tablet 325 mg PO BID [facility] 09/03/24 furosemide 40 mg tablet 40 mg PO DAILY water pill 09/03/24 lorazepam 0.5 mg tablet 0.5 mg PO Q4H PRN aggitation & restlessness 09/03/24 aspirin 81 mg tablet,delayed release (Adult Low Dose Aspirin) 81 mg PO QDAY 10/06/24 carbidopa 25 mg-levodopa 100 mg tablet 1 tab PO TID 11/14/24 cefdinir 125 mg/5 mL oral suspension 300 mg (12 mL) PO BID 5 days #120 mL 03/22/25 doxycycline monohydrate 25 mg/5 mL oral suspension 100 mg (20 mL) PO Q12 5 days #200 mL 03/22/25 guaifenesin 100 mg/5 mL oral liquid 200 mg (10 mL) PO Q4H PRN PRN Cough #0 mL 03/22/25 metoprolol succinate 50 mg tablet,extended release 24 hr 50 mg PO BID heart rate 03/22/25 sennosides 8.6 mg-docusate sodium 50 mg tablet (Stimulant Laxative Plus) 2 tab PO BID PRN PRN Constipation #0 tabs 03/22/25
[2025-03-22 13:38] VITALS: BP 100/60; PULSE 58; RESP 14; TEMP 36.4; O2SAT 97
--- NOTE | 2025-03-22 14:41 | NURSING ---
called report to Didier HIDALGO. No other questions
== END 2025-03-22 15:25 | disposition skilled nursing facility (03) | DRG 947 ==
LOC: ED 19:44 → PCU 20:45
PROVIDERS: Admitting Provider Family Medicine; Emergency Provider Student in an Organized Health Care Education/Training Program; PCP Family Medicine; Visit Provider Internal Medicine
DX: R53.1 Weakness (principal); J18.9 Pneumonia, unspecified organism; I48.92 Unspecified atrial flutter; N13.8 Other obstructive and reflux uropathy; I13.0 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 1 through stage 4 chronic kidney disease, or unspecified chronic kidney disease; F02.84 Dementia in other diseases classified elsewhere, unspecified severity, with anxiety; I50.22 Chronic systolic (congestive) heart failure; F02.83 Dementia in other diseases classified elsewhere, unspecified severity, with mood disturbance; L89.152 Pressure ulcer of sacral region, stage 2; R62.7 Adult failure to thrive; R13.12 Dysphagia, oropharyngeal phase; Z51.5 Encounter for palliative care; S09.90XA Unspecified injury of head, initial encounter; G20.A1 Parkinson's disease without dyskinesia, without mention of fluctuations; E11.22 Type 2 diabetes mellitus with diabetic chronic kidney disease; J47.9 Bronchiectasis, uncomplicated; N18.32 Chronic kidney disease, stage 3b; D50.9 Iron deficiency anemia, unspecified; E66.9 Obesity, unspecified; Z95.2 Presence of prosthetic heart valve; I48.0 Paroxysmal atrial fibrillation; E78.5 Hyperlipidemia, unspecified; I25.10 Atherosclerotic heart disease of native coronary artery without angina pectoris; I25.2 Old myocardial infarction; I35.0 Nonrheumatic aortic (valve) stenosis; W01.0XXA Fall on same level from slipping, tripping and stumbling without subsequent striking against object, initial encounter; M16.0 Bilateral primary osteoarthritis of hip; E11.40 Type 2 diabetes mellitus with diabetic neuropathy, unspecified; M17.0 Bilateral primary osteoarthritis of knee; Z85.72 Personal history of non-Hodgkin lymphomas; R35.0 Frequency of micturition; N40.1 Benign prostatic hyperplasia with lower urinary tract symptoms; R53.81 Other malaise; Z92.21 Personal history of antineoplastic chemotherapy; Z92.3 Personal history of irradiation; Z87.891 Personal history of nicotine dependence; Z79.84 Long term (current) use of oral hypoglycemic drugs; Z79.899 Other long term (current) drug therapy; Z79.82 Long term (current) use of aspirin; Z68.35 Body mass index [BMI] 35.0-35.9, adult; Z91.81 History of falling
CPT/HCPCS: 36415; 70450; 71045; 71046; 72125; 72170; 74230; 80048; 80053; 80061; 81001; 82962; 83605; 83735; 84145; 84484; 85025; 87040; 87631; 92610; 92611; 93005; 97163; 97167; 97802; 99285; P9612; A4216

== ENCOUNTER 2025-03-22 15:41 | Inpatient (IN) | payer MEDICARE, SELFPAY ==
[2025-03-22 16:09] VITALS: BMI 33.4
[2025-03-22 16:24] VITALS: BP 124/61; PULSE 64; RESP 16; TEMP 36.6; O2SAT 95
--- NOTE | 2025-03-22 16:35 | NURSING ---
Call placed to PCU to clarify discharge oral antibiotic orders. RN spoke with electrical discharge machine operator. Clarification ordered was obtained by PCU electrical discharge machine operator from Dr. Martínez. Orders were verified with readback. Medication order on med list updated by Dr. Martínez.
[2025-03-22] MEDS: metFORMIN (XR) 500 MG Tablet PO (18:47)
--- NOTE | 2025-03-22 19:46 | PCM.HP.STD ---
HPI - General General Date of Admission: 03/22/25 Date of Service: 03/22/25 Chief Complaint: Here for rehabilitation. HPI Narrative AXEL SERRANO, is a 84 M who presents with followin03/20/2025 [facility] ED weakness. Weak for 3 to 4 weeks. Lost balance, fell backwards, hit back of head. Bed sores. WBC 19, Urinalysis negative, Troponin elevated, Chest X-ray negative. Viral swab negative. Rocephin, Doxycycline given. 03/20/[address] [facility]. PT/OT/CM for discharge planning. Cycle cardiac enzymes for elevated troponin. 03/20/2025 ST for dysphagia. 03/21/2025 Gradual decline for 4 weeks. Rocephin, Doxycycline for pneumonia. 03/22/2025 PT/OT/CM for SNF. High risk of falls 2/2 Parkinson Disease. Cefdinir, Doxycycline for pneumonia on discharge. 03/22/2025 Admit to TCU with debility, here for rehabilitation, strengthening, prior to discharge home with . 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) Chronic kidney disease (CKD) Non-ischemic cardiomyopathy History of non-ST elevation myocardial infarction (NSTEMI) (01/22/20) Chronic systolic (congestive) heart failure CHF (congestive heart failure), NYHA class III 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 Mild chronic anemia Nonrheumatic aortic (valve) stenosis Non-Hodgkin lymphoma Obesity Splenic artery aneurysm Type 2 diabetes mellitus Kidney stones HLD (hyperlipidemia) Home Medications Medication Instructions Recorded Last Taken Type folic acid 1 mg tablet 1 mg PO DAILY health [facility] 11/11/21 09/02/24 History atorvastatin 40 mg tablet 40 mg PO QHS cholesterol 02/20/22 03/21/25 History sertraline 50 mg tablet 50 mg PO DAILY Depression 02/20/22 03/22/25 History mecobalamin (vitamin B12) 1,000 1,000 mcg PO DAILY health 11/16/23 09/02/24 History mcg chewable tablet [facility] metformin 500 mg tablet,extended 500 mg PO BID DM 11/16/23 09/02/24 History release 24 hr sitagliptin phosphate 50 mg tablet 50 mg PO DAILY Diabetes 11/16/23 09/02/24 History (Januvia) tamsulosin 0.4 mg capsule (Flomax) 0.4 mg PO BID bladder 04/24/24 03/22/25 History rivastigmine tartrate 1.5 mg 1.5 mg PO BIDCM memory 30 days #60 05/16/24 03/22/25 Rx capsule caps gabapentin 300 mg capsule 300 mg PO BID nerve pain 08/09/24 03/22/25 History ferrous gluconate 324 mg (37.5 mg 325 mg PO BID [facility] 09/03/24 03/22/25 History iron) tablet furosemide 40 mg tablet 40 mg PO DAILY water pill 09/03/24 03/22/25 History lorazepam 0.5 mg tablet 0.5 mg PO Q4H PRN aggitation & 09/03/24 Unknown History restlessness aspirin 81 mg tablet,delayed 81 mg PO QDAY [facility] 10/06/24 03/22/25 History release (Adult Low Dose Aspirin) carbidopa 25 mg-levodopa 100 mg 1 tab PO TID parkinsons 11/14/24 03/22/25 History tablet cefdinir 125 mg/5 mL oral 300 mg (12 mL) PO BID antibiotic 5 03/22/25 Unknown Rx suspension days #120 mL doxycycline hyclate 100 mg tablet 100 mg PO BID infection 5 days #10 03/22/25 Unknown Rx tabs guaifenesin 100 mg/5 mL oral liquid 200 mg (10 mL) PO Q4H PRN PRN 03/22/25 Unknown Rx Cough #0 mL metoprolol succinate 50 mg 50 mg PO BID heart rate 03/22/25 03/22/25 History tablet,extended release 24 hr sennosides 8.6 mg-docusate sodium 2 tab PO BID PRN PRN Constipation 03/22/25 Unknown Rx 50 mg tablet (Stimulant Laxative #0 tabs Plus) Allergy/AdvReac Type Severity Reaction Status Date / Time No Known Allergies Allergy Verified 03/20/25 16:14 Family History Mother Heart disease Father Heart disease Brother Heart disease Surgical History History of left heart catheterization (08/14/20) Hx of cataract surgery Hx of cholecystectomy Social History household members: spouse Smoking Status: Former smoker how long ago did patient quit smokin alcohol intake: never substance use type: does not use caffeine: Yes Type: coffee Number of servings: 2 ROS Constitutional Constitutional: Reports weakness; Denies chills, fever(s) or weight gain ENT HEENT: Denies headache(s), nasal congestion or nasal discharge Cardiovascular Cardiovascular: Denies chest pain or palpitations Respiratory/Chest Respiratory/Chest: Denies cough, excessive phlegm production or shortness of breath with exertion Gastrointestinal Gastrointestinal: Denies abdominal pain, nausea or vomiting Genitourinary Genitourinary: Denies dysuria Musculoskeletal Musculoskeletal: Denies joint pain or joint swelling Integumentary Integumentary: Denies rash or wounds Neurologic Neurologic: Denies focal weakness, numbness or tingling Psychiatric Psychiatric: Denies anxiety, auditory hallucinations, depression, homicidal ideation or suicidal ideation Vital Signs Vital Signs Vital Signs: 03/22/25 16:24 03/22/25 17:21 Temperature 97.8 F Temperature Source Oral Pulse Rate 64 Pulse Rhythm Regular Pulse Strength Normal (2+) Respiratory Rate 16 Respiratory Effort Normal Non-Labored Respiratory Depth Normal Respiratory Pattern Normal Blood Pressure 124/61 H Blood Pressure Mean 82 Blood Pressure Position Semi-Fowlers Blood Pressure Location Left Arm Pulse Ox 95 Oxygen Delivery Method Room Air Room Air Weight Weight: 111.765 kg Body Mass Index (BMI) 33.4 Physical Exam Const alert General Appearance: cooperative HEENT normocephalic Eyes PERRL and EOMs intact bilaterally Neck supple, no JVD and no carotid bruits Resp normal respiratory effort, normal air movement and clear to auscultation bilaterally Cardio regular rate and regular rhythm GI normal to inspection, nondistended, normoactive bowel sounds, non-tender and non-distended Extremity normal capillary refill General Extremity: Negative for edema Skin no rashes or lesions noted General Skin Exam: no breakdown Psych affect normal Appearance: appropriate Results Lab / Micro Data Labs: Laboratory Results - last 24 hr 03/22/25 16:46: POC Glucose 149 H Assessment & Plan Assessment/Plan (1) Debility: (2) Failure to thrive: (3) Pneumonia: (4) Elevated troponin: (5) Non Hodgkin's lymphoma: (6) Coronary artery disease: (7) Type 2 diabetes mellitus with hyperglycemia: (8) Parkinson disease: (9) Anemia: (10) Atrial fibrillation: (11) HFrEF (heart failure with reduced ejection fraction): PLAN: Plan 84 year old male with below past medical history hospitalized for failure to thrive 2/2 pneumonia, admitted to TCU with debility, here for rehabilitation, strengthening, prior to discharge home with . Debility - PT/OT. Cognition - ST. Pain - Tylenol 1000mg q6 prn pain (1-10). Bowel - senna/colace 2 tablets bid prn. Adult immunization - Administer pneumonia vaccine, covid vaccine, flu vaccine as appropriate. DVT prophylaxis - Lovenox 40mg sc daily. Coronary artery disease - Metoprolol succinate 50mg bid, Aspirin 81mg daily. Hyperlipidemia - Atorvastatin 40mg qhs. Parkinson Disease - Sinemet 25/100mg tidac. Parkinson Disease dementia - Rivastigmine 1.5mg bidcm. Pneumonia - Cefdinir 300mg bid thru 03/27/2025, Doxycycline 100mg bid thru 03/27/2025. Cough - Robitussin 10mL po q4 prn. Vitamin B12 deficiency - B12 1000mcg daily. Iron deficiency anemia - Ferrous sulfate 324mg bidcm. Folate deficiency - Folic acid 1mg daily. Chronic HFpEF - Metoprolol succinate 50mg bid, Furosemide 40mg daily. Diabetic polyneuropathy - Gabapentin 300mg bid. Diabetes Mellitus II - Metformin XR 500mg bidcm, Tradjenta 5mg daily. Skin irritation - Calmoseptine topical bid. Thrush - Nystatin 500,000 po 4x/day thru 04/01/2025. Tinea Corporis - Nystaitn powder topical bid. BPH - Tamsulosin 0.4mg bid. The following psychotropic medication was present on admission: Sertraline 50mg daily. Psychotropic medication therapy is indicated for a diagnosis of: Major Depression. Based on my clinical evaluation, continuation of the medication is necessary at this time. Gradual dose reduction plan (select one): ____ GDR will be attempted. Will monitor patient symptoms and behaviors in response to GDR. __x__ GRD contraindicated. 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 The following psychotropic medication was present on admission: Lorazepam 0.5mg po q4 prn. Psychotropic medication therapy is indicated for a diagnosis of: Anxiety. Based on my clinical evaluation, continuation of the medication is necessary at this time. Gradual dose reduction plan (select one): ____ GDR will be attempted. Will monitor patient symptoms and behaviors in response to GDR. __x__ GRD contraindicated. 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
[2025-03-22 21:23] VITALS: BP 133/64; PULSE 61; RESP 17; O2SAT 94
[2025-03-22] MEDS: NYSTATIN 500,000 UNIT/5 ML UDC 500000 UNIT PO (21:30)
[2025-03-22 21:31] VITALS: BP 133/64; PULSE 61
[2025-03-22] MEDS: Metoprolol(XL)Succ 50 MG Tablet PO (21:31)
[2025-03-23] MEDS: NYSTATIN 500,000 UNIT/5 ML UDC 500000 UNIT PO ×4 (05:45→21:28)
[2025-03-23 05:51] LABS: Hematocrit 28.8 % (40-54); Hemoglobin 9.6 g/dL (13.0-16.5); Immature Granulocytes Count 0.080 X10^3/uL (0.0-0.0); Mean Corp Hgb Conc 33.3 g/dL (32-36); Mean Corpuscular Volume 89.7 fL (80-94); Mean Platelet Vol. 10.1 fl (6.2-12.0); NRBC Flagged by Analyzer 0 % (0-5); Platelet Count 223 K/mm3 (150-450); RBC Distribution Width CV 14.7 % (11.6-14.6); RBC Distribution Width SD 48.3 fl (35.1-43.9); Red Blood Count 3.21 M/mm3 (4.6-6.2); White Blood Count 11.8 K/mm3 (4.4-11.0)
[2025-03-23 06:17] VITALS: PULSE 58; RESP 17; O2SAT 93
[2025-03-23 09:05] LABS: Anion Gap 10 (5-15); BUN 37 mg/dL (4-19); BUN/Creat Ratio 20.1 RATIO (10-20); Calcium,Total 9.1 mg/dL (7.6-11.0); Carbon Dioxide 25.3 mmol/L (21.0-32.0); Chloride 103 mmol/L (98-108); Estimated Creatinine Clearance 38.16 ml/min (50-250); Glucose 159 mg/dL (70-99); Potassium 4.8 mmol/L (3.3-5.1)
[2025-03-23 10:04] VITALS: BP 128/62; PULSE 56; RESP 20; TEMP 35.8; O2SAT 94
[2025-03-23] MEDS: Aspirin E.C. 81 MG Tablet PO (10:06)
[2025-03-23] MEDS: metFORMIN (XR) 500 MG Tablet PO ×2 (10:07→18:17)
[2025-03-23 10:08] VITALS: PULSE 56
[2025-03-23] MEDS: LINAGLIPTIN 5 MG TABLET PO (10:08)
[2025-03-23] MEDS: Metoprolol(XL)Succ 50 MG Tablet PO ×2 (10:08→21:31)
[2025-03-23] MEDS: Tuberculin,Purif.prot.deriv. 50 TU/ML Vial 0.1 ML ID (10:11)
--- NOTE | 2025-03-23 13:41 | MDS.RN ---
MDS Entry Tracker complete, Pain assessed.
--- NOTE | 2025-03-23 14:05 | PHA.CONS_ITS ---
Documented by User: Reagan Edwards 03/23/25 14:41 TCU RX Drug Regimen Review Subjective/Objective Subjective/Objective Subjective: TCU admission note. 84 year old male with below past medical history hospitalized for failure to thrive 2/2 pneumonia, admitted to TCU with debility, here for rehabilitation, strengthening, prior to discharge home with . Objective: Allergies No Known Allergies Allergy (Verified 03/20/25 16:14) Current Medications Generic Name Dose Route Start Last Admin Trade Name Freq PRN Reason Stop Dose Admin Acetaminophen 1,000 mg 03/22/25 20:14 Acetaminophen 500 Mg Tablet PO Q6H PRN PRN Pain Score 1-10 Aspirin 81 mg 03/23/25 08:00 03/23/25 10:06 Aspirin E.C. 81 Mg Tablet PO 81 mg BREAKFAST HAIM Administration Atorvastatin Calcium 40 mg 03/22/25 22:00 03/22/25 21:29 Atorvastatin Calcium 40 Mg Tablet PO 40 mg QHS HAIM Administration Calamine/Phenol 1 applic 03/22/25 22:00 03/23/25 10:07 Menthol/Lanolin/Calamine/Znox 113 Gm Tube TOPICAL 1 applic BID HAIM Administration Protocol Carbidopa/Levodopa 1 tablet 03/22/25 16:45 03/23/25 10:09 Carbidopa/Levodopa 25/100 Tablet PO 1 tablet TIDAC HAIM Administration Cefdinir 300 mg 03/22/25 22:00 03/23/25 10:08 Cefdinir 300 Mg Capsule PO 03/27/25 22:01 300 mg BID HAIM Administration Cyanocobalamin 1,000 mcg 03/23/25 10:00 03/23/25 10:08 Cyanocobalamin 500 Mcg Tablet PO 1,000 mcg DAILY HAIM Administration Doxycycline Monohydrate 100 mg 03/22/25 22:00 03/23/25 10:09 Doxycycline 100 Mg Capsule PO 03/27/25 22:01 100 mg BID HAIM Administration Enoxaparin Sodium 40 mg 03/23/25 06:00 03/23/25 05:45 Enoxaparin 40 Mg/0.4 Ml Syringe SC 40 mg DAILY@0600 HAIM Administration Ferrous Gluconate 324 mg 03/22/25 17:00 03/23/25 10:06 Ferrous Gluconate 324 Mg Tablet PO 324 mg BIDCM HAIM Administration Folic Acid 1 mg 03/23/25 08:00 03/23/25 10:06 Folic Acid 1 Mg Tablet PO 1 mg BREAKFAST HAIM Administration Furosemide 40 mg 03/23/25 10:00 03/23/25 10:08 Furosemide 40 Mg Tablet PO 40 mg DAILY HAIM Administration Protocol Gabapentin 300 mg 03/22/25 22:00 03/23/25 10:11 Gabapentin 300 Mg Capsule PO 300 mg BID HAIM Administration Guaifenesin 10 ml 03/22/25 16:22 Guaifenesin 10 Ml Udc (200mg/10ml) PO Q4H PRN PRN COUGH Linagliptin 5 mg 03/23/25 10:00 03/23/25 10:08 Linagliptin 5 Mg Tablet PO 5 mg DAILY HAIM Administration Lorazepam 0.5 mg 03/22/25 16:22 Lorazepam 0.5 Mg Tablet PO Q4H PRN aggitation & restlessness Metformin HCl 500 mg 03/22/25 17:00 03/23/25 10:07 Metformin (Xr) 500 Mg Tablet PO 500 mg BIDCM HAIM Administration Metoprolol Succinate 50 mg 03/22/25 22:00 03/23/25 10:08 Metoprolol(Xl)Succ 50 Mg Tablet PO 50 mg BID HAIM Administration Protocol Nystatin 500,000 unit 03/22/25 22:00 03/23/25 10:09 Nystatin 500,000 Unit/5 Ml Udc PO 04/01/25 22:01 500,000 unit 4X/DAY HAIM Administration Nystatin 1 applic 03/22/25 22:00 03/23/25 10:09 Nystatin Powder 15gm Bottle TOPICAL 1 applic BID HAIM Administration Protocol Rivastigmine Tartrate 1.5 mg 03/22/25 17:00 03/23/25 10:09 Rivastigmine Tartrate 1.5 Mg Capsule PO 1.5 mg BIDCM HAIM Administration Senna/Docusate Sodium 2 tablet 03/22/25 16:22 Senna/Docusate Sodium 1 Tablet PO BID PRN PRN CONSTIPATION Sertraline HCl 50 mg 03/23/25 10:00 03/23/25 10:08 Sertraline 50 Mg Tablet PO 50 mg DAILY HAIM Administration Tamsulosin HCl 0.4 mg 03/22/25 22:00 03/23/25 10:07 Tamsulosin Hcl 0.4 Mg Capsule PO 0.4 mg BID HAIM Administration Tuberculin PPD 0.1 ml 03/30/25 10:00 Tuberculin,Purif.Prot.Deriv. 50 Tu/Ml Vial ID 03/30/25 10:01 X1 ONE Problem List HFrEF (heart failure with reduced ejection fraction) (Acute) Atrial fibrillation (Acute) Type 2 diabetes mellitus with hyperglycemia (Acute) Non Hodgkin's lymphoma (Acute) Elevated troponin (Acute) Pneumonia (Acute) Failure to thrive (Acute) Coronary artery disease (Acute) Parkinson disease (Acute) Debility (Acute) Anemia (Acute) Vital Signs Temp Pulse Resp BP Pulse Ox O2 Del Method 96.5 F L 56 L 20 H 128/62 H 94 Room Air 03/23/25 10:04 03/23/25 10:08 03/23/25 10:04 03/23/25 10:04 03/23/25 10:04 03/23/25 10:04 Oxygen Delivery Method Room Air Weight: 111.765 kg Body Mass Index (BMI) 33.4 Sodium 138 mmol/L (133-145) 03/23/25 07:30 Potassium 4.8 mmol/L (3.3-5.1) 03/23/25 07:30 Chloride 103 mmol/L (98-108) 03/23/25 07:30 Carbon Dioxide 25.3 mmol/L (21.0-32.0) 03/23/25 07:30 Anion Gap 10 (5-15) 03/23/25 07:30 BUN 37 mg/dL (4-19) H 03/23/25 07:30 Creatinine 1.86 mg/dL (0.70-1.20) H 03/23/25 07:30 Est GFR (MDRD) Non-Af 35 (>60) L 03/23/25 07:30 BUN/Creatinine Ratio 20.1 RATIO (10-20) H 03/23/25 07:30 Glucose 159 mg/dL (70-99) H 03/23/25 07:30 Assessment/Plan: 1. Pain: acetaminophen 1000 mg PO Q6H PRN pain (-02/16). The patient has not required any PRN doses of acetaminophen so far this admission. Please continue to monitor pain levels, PRN medication usage, and LFTs (AST/ALT = 10/<5 U/L on 03/21/25). 2. Bowel: senna/docusate 2 tablets PO BID PRN constipation. The patient has not required any PRN doses of senna/docusate so far this admission. Please continue to monitor for bowel movements (last BM documented on 03/22/25), PRN medication usage, constipation and diarrhea. 3. DVT prophylaxis: Enoxaparin 40 mg SC daily. Please continue to monitor for s/s of a DVT such as pain/erythema/swelling in an extremity, for bleeding/excessive bruising, hemoglobin levels (Hgb = 9.6 g/dL on 03/23/25), platelet counts (Plt = 223 K/mm3 on 03/23/25), and renal function (serum creatinine = 1.86 mg/dL with creatinine clearance ~ 38 mL/min on 03/23/25). 4. Coronary artery disease/chronic HFpEF: metoprolol succinate 50 mg PO BID, aspirin 81 mg PO daily, furosemide 40 mg PO daily. Please continue to monitor for chest pain, shortness of breath, for s/s of a CHF exacerbation such as leg swelling and JVD, heart rates (recent range = 56-128 beats/min), blood pressures (recent range = 100-157/60-84 mmHg), for fatigue, for s/s of bleeding/excessive bruising, platelet counts ((Plt = 223 K/mm3 on 03/23/25), for GI distress with aspirin administration, for s/s of dehydration, renal function (serum creatinine = 1.86 mg/dL with creatinine clearance ~ 38 mL/min on 03/23/25), sodium levels (Na = 138 mmol/L on 03/23/25), potassium levels (K = 4.8 mmol/L on 03/23/25), and calcium levels (Ca = 9.1 mg/dL on 03/23/25). 5. Pneumonia: cefdinir 300 mg PO BID through 03/27/25, doxycycline 100 mg PO BID through 03/27/25. Please continue to monitor for s/s of infection/pneumonia including shortness of breath, respiratory rates (recent range = 14 - 20 breaths/min), for fevers (T = 96.5F on 03/23/25), white blood cell counts (WBC = 11.8 K/mm3 on 03/23/25), renal function (serum creatinine = 1.86 mg/dL with creatinine clearance ~ 38 mL/min on 03/23/25), diarrhea, and for photosensitivity. 6. Hyperlipidemia: atorvastatin 40 mg PO QHS. Please continue to monitor lipid levels (cholesterol = 83 mg/dL with LDL = 24 mg/dL on 03/21/25), LFTs (AST/ALT = 10/<5 U/L on 03/21/25), and for myalgias. 7. Diabetes Mellitus II: metformin XR 500 mg PO BID with meals, linagliptin 5 mg PO daily. Please continue to monitor blood glucose levels (recent range = 137- 172 mg/dL), hemoglobin A1C levels (no recent A1C documented), renal function (serum creatinine = 1.86 mg/dL with creatinine clearance ~ 38 mL/min and GFR = 35 mL/min on 03/23/25), for s/s of lactic acidosis, for GI distress with metformin administration, for s/s of hypo/hyperglycemia, and for s/s of pancreatitis. 8. Parkinson disease/parkinson disease dementia: carbidopa/levodopa 1 tablets PO TIDAC, rivastigmine 1.5 mg PO BID with meals. Please continue to monitor for abnormal movements, dyskinesias, insomnia, nausea, and vomiting. 9. Diabetic polyneuropathy: gabapentin 300 mg PO BID. Please continue to monitor for neuropathy, renal function (serum creatinine = 1.86 mg/dL with creatinine clearance ~ 38 mL/min on 03/23/25), for lower extremity edema, and for dizziness/drowsiness/syncope/ataxia/falls. 10. BPH: tamsulosin 0.4 mg PO BID. Please continue to monitor for BPH symptoms including urinary retention and urine stream, as well as for s/s of orthostasis. 11. Thrush: nystatin 500,000 unit/5 mL swish and swallow 4x/day through 04/01/25. Please continue to monitor for resolution of thrush. 12. Iron deficiency anemia: ferrous gluconate 324 mg PO BID with meals. Please continue to monitor hemoglobin levels (Hgb = 9.6 g/dL on 03/23/25), iron levels (iron = 63 ug/dL on 03/08/24), and for GI distress with iron administration. 13. Cough: guaifenesin 10 mL PO Q4H PRN cough. The patient has not required any PRN doses of guaifenesin so far this admission. Please continue to monitor for cough and for PRN medication usage. 14. Vitamin B12 deficiency: cyanocobalamin 1000 mcg PO daily. Please continue to monitor vitamin B12 levels (B12 = 1076 pg/mL on 05/01/24), and for s/s of vitamin B12 deficiency. 15. Folate deficiency: folic acid 1 mg PO daily. Please continue to monitor for s/s of folic acid deficiency. 16. Skin irritation/tinea corporis: calmoseptine 1 application topically BID, nystatin powder 1 application topically BID. Please continue to monitor for resolution of tinea corporis and for skin irritation/skin integrity. Assessment/Plan for indications treated with psychotropic medications: 1. Major depression: sertraline 50 mg PO daily. Please see provider note regarding stable/chronic long-term therapy GDR not recommended. Monitor for efficacy including resident symptoms, behaviors and indications of distress. Monitor for depression and SI. Monitor for tolerability including mental status, cognition, excessive sleepiness, withdrawal or decreased participation in activities and decline in physical functioning.Maximize use of nonpharmacologic/behavioral interventions to facilitate dose reduction or discontinuation as appropriate. Please evaluate the appropriateness of GDR unless contraindicated. If appropriate, GDR should be attempted in 2 separate quarters within the first year of use or admission to TCU. If GDR attempted, monitor resident symptoms/behaviors. Monitor for diarrhea, nausea, headache, anxiety or drowsiness, suicidal thoughts or behaviors (Boxed Warning), symptoms of bleeding, symptoms of serotonin syndrome (including agitation, confusion, hyperreflexia, rigidity/myoclonus, tremor, tachycardia, tachypnea), sodium levels (last Na = 138 mmol/L on 03/23/25). 2. Anxiety: lorazepam 0.5 mg PO Q4H PRN anxiety. Please see provider note regarding stable/chronic long-term therapy GDR not recommended. Monitor prn usage and efficacy of prn doses including resident symptoms, behaviors and indications of distress. Monitor for anxiety, restlessness and agitation. Monitor for tolerability including mental status, cognition, excessive sleepiness, withdrawal or decreased participation in activities and decline in physical functioning. Maximize use of nonpharmacologic/behavior interventions to minimize use of prn medication. Prn psychotropic order must be renewed at 14 days per policy. Evaluate continued need for medication, effect of prn medication on resident’s symptoms/distress and tolerability to determine the appropriateness of order renewal. Monitor for sedation, mental status and cognition. Monitor for falls (risk factor for falls) and implement fall prevention strategies. Monitor for respiratory depression. RR range since admission = 14-20 breaths/min. Medical chart and medication regimen reviewed. The following medication irregularities or issues were identified: No recommendations for resident at this time. Date Date of Note: 03/23/25 Documented by User: Dr. Bertrand Romano MD 03/23/25 14:42 TCU RX Drug Regimen Review Provider Comments Provider responsibility Provider Comments to Recommendations by Pharmacy Agree
--- NOTE | 2025-03-23 14:20 | NURSING ---
Frame Wirer Note; Activity Asset: Oswaldo Lyles is independent in his choice of daily activities. He has returned for more therapy and continues to welcome the damage inside adjuster and therapy dog when avaliable. He and his will play card and he watches tv, reads the paper and has his phone. Staff will remind him of weekly activities and respect his right to say no.
--- NOTE | 2025-03-23 15:45 | CHAPLAIN ---
Type of Pastoral Visit _x__ Initial Visit ___ Follow-up Visit ___ On-call Visit ___ General Patient Visit ___ Spiritual Assessment ___ Family Conference ___ Bereavement ___ Rapid Response ___ Code Blue ___ Other (describe below) Pastoral Care Referral From _x__ Patient ___ Family ___ Nurse ___ Physician ___ [employer] ___ Junior Sales Assistant ___ Other (describe below) Sacrament/Intervention _x__ Active listening ___ Anointing ___ Anabaptism ___ Bereavement ___ Communion ___ Dianna exploration ___ _x__ Life review _x__ Prayer ___ Reconciliation ___ Sacrament of Sick _x__ Supportive presence ___ Wedding ___ Other (describe below) Pastoral Comments patient says that 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
--- NOTE | 2025-03-23 17:03 | CASEMGMT ---
Social Work SW met with patient to complete initial assessment. Introduced self and role. Verified contacts. Patient confirmed code status as DNR-CCA, no intubation. SW educated to [facility] insurance with NRD 03/28 and continued stay is not guaranteed with each review. Pt's goal is to return home with . SW will continue to follow for DC planning. Magda Whitt VETERANS' COUNSELOR DIRECTOR PROCESS IMPROVEMENT
[2025-03-23 21:31] VITALS: BP 162/73; PULSE 65
[2025-03-24] MEDS: NYSTATIN 500,000 UNIT/5 ML UDC 500000 UNIT PO ×4 (06:32→21:13)
[2025-03-24 06:40] LABS: Hematocrit 28.9 % (40-54); Hemoglobin 9.4 g/dL (13.0-16.5); Immature Granulocytes Count 0.110 X10^3/uL (0.0-0.0); Mean Corp Hgb Conc 32.5 g/dL (32-36); Mean Corpuscular Volume 90.3 fL (80-94); Mean Platelet Vol. 10.5 fl (6.2-12.0); NRBC Flagged by Analyzer 0 % (0-5); Platelet Count 244 K/mm3 (150-450); RBC Distribution Width CV 14.6 % (11.6-14.6); RBC Distribution Width SD 48.1 fl (35.1-43.9); Red Blood Count 3.20 M/mm3 (4.6-6.2); White Blood Count 8.5 K/mm3 (4.4-11.0)
[2025-03-24 09:54] VITALS: BP 114/57; PULSE 56; RESP 16; TEMP 36.4; O2SAT 95
[2025-03-24] MEDS: Aspirin E.C. 81 MG Tablet PO (09:56)
[2025-03-24] MEDS: metFORMIN (XR) 500 MG Tablet PO ×2 (09:58→17:38)
[2025-03-24] MEDS: LINAGLIPTIN 5 MG TABLET PO (09:59)
[2025-03-24 10:08] VITALS: PULSE 56
--- NOTE | 2025-03-24 10:09 | NURSING ---
Addendum entered by Mohamud Shultz 03/24/25 11:10: Call placed to Dr. Romano with update. New order received to discontinue Metoprolol. VORB. Original Note: Discussed decreased heart rate with patient's . Patient's states Metoprolol was discontinued by cardiology in December. Medication was not given this morning. Communication left for Dr. Romano.
[2025-03-25] MEDS: NYSTATIN 500,000 UNIT/5 ML UDC 500000 UNIT PO ×4 (05:24→22:24)
[2025-03-25 09:50] VITALS: BP 130/52; PULSE 62; RESP 16; TEMP 36.6; O2SAT 94
[2025-03-25] MEDS: Aspirin E.C. 81 MG Tablet PO (09:55)
[2025-03-25] MEDS: metFORMIN (XR) 500 MG Tablet PO ×2 (09:56→17:34)
[2025-03-25] MEDS: LINAGLIPTIN 5 MG TABLET PO (09:58)
[2025-03-26] MEDS: NYSTATIN 500,000 UNIT/5 ML UDC 500000 UNIT PO ×4 (05:44→21:44)
[2025-03-26 05:46] LABS: Hematocrit 29.8 % (40-54); Hemoglobin 9.6 g/dL (13.0-16.5)
[2025-03-26 09:16] VITALS: BP 131/60; PULSE 71; RESP 17; TEMP 36.4; O2SAT 93
[2025-03-26] MEDS: metFORMIN (XR) 500 MG Tablet PO ×2 (09:17→16:38)
[2025-03-26] MEDS: LINAGLIPTIN 5 MG TABLET PO (09:18)
[2025-03-26] MEDS: Aspirin E.C. 81 MG Tablet PO (09:19)
[2025-03-26 10:46] VITALS: O2SAT 93
--- NOTE | 2025-03-26 15:00 | NURSING ---
Offered covid vaccine. Resident and say he had it a few weeks ago.
[2025-03-26 22:05] VITALS: PULSE 58; RESP 16
[2025-03-27] MEDS: NYSTATIN 500,000 UNIT/5 ML UDC 500000 UNIT PO ×4 (05:46→21:28)
[2025-03-27] MEDS: Senna/Docusate Sodium 1 Tablet 2 TABLET PO (05:57)
[2025-03-27 06:06] VITALS: PULSE 60; RESP 17
[2025-03-27] MEDS: LINAGLIPTIN 5 MG TABLET PO (09:26)
[2025-03-27] MEDS: Aspirin E.C. 81 MG Tablet PO (09:26)
[2025-03-27] MEDS: metFORMIN (XR) 500 MG Tablet PO ×2 (09:26→17:21)
[2025-03-27 09:37] VITALS: BP 157/60; PULSE 61; RESP 18; TEMP 36.4; O2SAT 95
[2025-03-27 12:34] VITALS: BMI 33.1
[2025-03-28] MEDS: NYSTATIN 500,000 UNIT/5 ML UDC 500000 UNIT PO ×3 (05:57→21:04)
[2025-03-28] MEDS: Aspirin E.C. 81 MG Tablet PO (08:05)
[2025-03-28] MEDS: metFORMIN (XR) 500 MG Tablet PO ×2 (08:06→17:31)
[2025-03-28] MEDS: LINAGLIPTIN 5 MG TABLET PO (08:06)
[2025-03-28 08:13] VITALS: BP 99/54; PULSE 78; RESP 16; TEMP 35.8; O2SAT 96
--- NOTE | 2025-03-28 13:12 | CASEMGMT ---
Social Work IDT met with patient, , son and DIL for care plan meeting. Discussed patient's progress in PT/OT/ST/SN/RDN. Educated to [facility] insurance with NRD 03/28 and continued stay is not guaranteed with each review. Provided pt/family with written communication of insurance process and copay coverage during stay. SW explained Mary from [facility] met with pt and earlier today and both were not ready to commit to palliative yet. Family confirmed. SW offered to answer questions or concerns. Family had none. SW broached that pt may need an alternative DC plan as the insurance may issue DC prior to when pt can return home. is unable to provide physical assistance. Today is pt's first day of separate therapy sessions, but nursing is still providing x2 assist. SW educated that SNF is OOP or Medicaid coverage and INN vs OON. SW educated to difference between managed Medicare plans and traditional Medicare. Answered families questions. Family to process information. SW requested update on plans next week. agreed. SW will continue to follow for DC planning. Magda Whitt TRANSITION SPECIALIST OFFICE DIRECTOR
--- NOTE | 2025-03-28 18:21 | NURSING ---
PT had a small amount of emesis this morning unmeasurable. Pt stated he had a some nausea but felt better after emesis. No other C/O this shift. Per this happens every once in a while.
[2025-03-28 19:49] VITALS: PULSE 74; RESP 16; O2SAT 16
[2025-03-29] MEDS: NYSTATIN 500,000 UNIT/5 ML UDC 500000 UNIT PO ×4 (06:24→20:13)
[2025-03-29 09:17] VITALS: BP 124/69; PULSE 82; RESP 16; TEMP 35.7; O2SAT 96
[2025-03-29] MEDS: Aspirin E.C. 81 MG Tablet PO (09:21)
[2025-03-29] MEDS: LINAGLIPTIN 5 MG TABLET PO (09:22)
[2025-03-29] MEDS: metFORMIN (XR) 500 MG Tablet PO ×2 (09:22→17:13)
--- NOTE | 2025-03-29 12:16 | CASEMGMT ---
Social Work SW completed BIMS (04/23) and PHQ-9 () for MDS assessment. SW explored pt's feelings. SW inquired when he has feelings of being better off , what does he think of. Pt replied, "I feel useless". SW discussed further and pt's depressive feelings originate from loss of independence and lack of ability to do favorite past-time hobbies. SW did clarify with pt that he does not have any thoughts/intents of hurting himself in some way. SW focused on positives and the things the pt can do independently. Encouraged pt to name those things and asked about what things bring karthik to pt. Pt reports music, football games and visiting with visits. SW offered music in room and pt agreed. SW inquired about an anti-depressant. Pt agreed to med. reported pt is already on an antidepressant and his PCP has had to increase the dosage before. SW to notify Dr. Romano and either it can be increased, changed or a medication can be added. Pt and agree. Written communication left for Dr. Romano. SW provided pt with music of choice and DC player at bedside. Pt appreciative. Magda Whitt SEMIAUTOMATIC TAPER OPERATOR INDUSTRIAL PSYCHOLOGY PROFESSOR
[2025-03-29 14:25] VITALS: PULSE 71; RESP 17; O2SAT 95
--- NOTE | 2025-03-29 14:40 | NURSING ---
students noted skin tear to RT forearm over a bruised age spot, cleansed w/NS, adaptic applied & wrapped with judith. pt does not know how it happened, states he has thin skin. states his physician told him to keep his arms covered to protect them.
[2025-03-30] MEDS: NYSTATIN 500,000 UNIT/5 ML UDC 500000 UNIT PO ×4 (05:50→21:29)
[2025-03-30 06:08] LABS: Hematocrit 29.4 % (40-54); Hemoglobin 9.5 g/dL (13.0-16.5); Immature Granulocytes Count 0.180 X10^3/uL (0.0-0.0); Mean Corp Hgb Conc 32.3 g/dL (32-36); Mean Corpuscular Volume 90.2 fL (80-94); Mean Platelet Vol. 10.9 fl (6.2-12.0); NRBC Flagged by Analyzer 0 % (0-5); Platelet Count 243 K/mm3 (150-450); RBC Distribution Width CV 14.6 % (11.6-14.6); RBC Distribution Width SD 48.0 fl (35.1-43.9); Red Blood Count 3.26 M/mm3 (4.6-6.2); White Blood Count 9.1 K/mm3 (4.4-11.0)
[2025-03-30 06:39] LABS: Anion Gap 11 (5-15); BUN 53 mg/dL (4-19); BUN/Creat Ratio 28.2 RATIO (10-20); Calcium,Total 9.0 mg/dL (7.6-11.0); Carbon Dioxide 23.1 mmol/L (21.0-32.0); Chloride 109 mmol/L (98-108); Estimated Creatinine Clearance 37.40 ml/min (50-250); Glucose 129 mg/dL (70-99); Potassium 4.5 mmol/L (3.3-5.1)
[2025-03-30] MEDS: Aspirin E.C. 81 MG Tablet PO (08:10)
[2025-03-30] MEDS: LINAGLIPTIN 5 MG TABLET PO (08:11)
[2025-03-30] MEDS: metFORMIN (XR) 500 MG Tablet PO ×2 (08:11→17:12)
--- NOTE | 2025-03-30 08:26 | NURSING ---
Pneumatic Tester Note; MDS for 03/29/2025 Complete
[2025-03-30 08:28] VITALS: BP 107/56; PULSE 76; RESP 16; TEMP 35.9; O2SAT 96
[2025-03-30] MEDS: Tuberculin,Purif.prot.deriv. 50 TU/ML Vial 0.1 ML ID (11:35)
[2025-03-30 22:00] VITALS: PULSE 69; RESP 16; O2SAT 98
[2025-03-31] MEDS: NYSTATIN 500,000 UNIT/5 ML UDC 500000 UNIT PO ×4 (06:16→21:13)
[2025-03-31 10:00] VITALS: BP 113/69; PULSE 68; RESP 16; TEMP 35.6; O2SAT 94
[2025-03-31] MEDS: Aspirin E.C. 81 MG Tablet PO (10:02)
[2025-03-31] MEDS: metFORMIN (XR) 500 MG Tablet PO ×2 (10:03→16:45)
[2025-03-31] MEDS: LINAGLIPTIN 5 MG TABLET PO (10:04)
[2025-03-31 10:19] VITALS: PULSE 69; RESP 18; O2SAT 98
--- NOTE | 2025-03-31 16:07 | NURSING ---
dr grover updated on Bun/cr & GFR. new order to encourage fluids and recheck BMP in AM
[2025-03-31 16:14] VITALS: BP 109/59; PULSE 71; RESP 12; TEMP 35.3
[2025-04-01] MEDS: NYSTATIN 500,000 UNIT/5 ML UDC 500000 UNIT PO ×4 (06:10→22:02)
[2025-04-01 07:33] LABS: Anion Gap 10 (5-15); BUN 50 mg/dL (4-19); BUN/Creat Ratio 26.8 RATIO (10-20); Calcium,Total 9.3 mg/dL (7.6-11.0); Carbon Dioxide 23.8 mmol/L (21.0-32.0); Chloride 107 mmol/L (98-108); Estimated Creatinine Clearance 38.00 ml/min (50-250); Glucose 149 mg/dL (70-99); Potassium 4.5 mmol/L (3.3-5.1)
[2025-04-01 09:16] VITALS: BP 118/72; PULSE 67; RESP 18; TEMP 35.8; O2SAT 97
[2025-04-01] MEDS: Aspirin E.C. 81 MG Tablet PO (09:19)
[2025-04-01] MEDS: LINAGLIPTIN 5 MG TABLET PO (09:20)
[2025-04-01] MEDS: metFORMIN (XR) 500 MG Tablet PO ×2 (09:20→16:39)
[2025-04-02 07:48] VITALS: BP 103/60; PULSE 67; RESP 17; TEMP 36.4; O2SAT 96
[2025-04-02] MEDS: metFORMIN (XR) 500 MG Tablet PO ×2 (07:50→17:12)
[2025-04-02] MEDS: Aspirin E.C. 81 MG Tablet PO (07:51)
[2025-04-02] MEDS: LINAGLIPTIN 5 MG TABLET PO (07:51)
[2025-04-02 10:00] VITALS: O2SAT 95
--- NOTE | 2025-04-02 12:07 | MDS.RN ---
Information for the MDS was obtained from review of the clinical record, interview of resident, staff, and direct observation of resident’s care.
[2025-04-02 16:08] VITALS: BP 151/73; PULSE 68; RESP 24; TEMP 36.3; O2SAT 96
--- NOTE | 2025-04-02 20:32 | NURSING ---
HS meds administered at this time per pt. request, "Tired, ready for bed". No distress observed or reported. Denies further requests. Positioned for comfort. Call light and personal items within reach.
[2025-04-03] MEDS: Aspirin E.C. 81 MG Tablet PO (09:42)
[2025-04-03] MEDS: LINAGLIPTIN 5 MG TABLET PO (09:43)
[2025-04-03] MEDS: metFORMIN (XR) 500 MG Tablet PO ×2 (09:43→17:03)
--- NOTE | 2025-04-03 09:44 | CASEMGMT ---
Addendum entered by Magda Whitt 04/03/25 10:42: phoned this worker to request meeting with SW today with her friend. SW agreed and scheduled for 1300. Original Note: Social Work SW phoned to follow up on DC plans as insurance update is today. became emotional and expressed she "doesn't know what to do". SW provided verbal support and assured this worker will assist with navigating plans. Inquired about children; denied. SW discussed each option and step in detail. asked for explanation about Parkinson's disease and recommendation for DC. SW educated to Parkinson's, explaining it is a progressive movement disorder; having good and bad days; encouraged to have forward thinking. stated she and pt really want pt at home. SW validated but explained currently pt needs too much physical assistance for to assist alone. SW explained that if the insurance approves continued stay and pt can continue making improvements, there could be less assistance for at home. But if pt were to DC home this week, the recommendation is 24/7 care outside of , which can be accommodated with hiring aides or admit to an ECF. Educated to OOP cost and explored finances. Pt would not qualify for Medicaid and would need to spend down some resources first. overwhelmed with information and cost and leaning on this worker to make a decision. SW explained private duty CHARGE ACCOUNT IDENTIFICATION CLERK and problem solved actual need for hours/day. stated pt does not typically get up during the night; wakes up at 7a, bedtime about 9-10p. SW offered for to contact private duty agencies to inquire about availability, and if that can be secured, she can start with DC home. SW will coordinate a skilled HHC agency with PT/OT/ST/SN/ALLRED/SW to assist with the transition, and if pt does not do well at home, the SW can assist with transfer to a SNF. expressed understanding and inquired about SNFs. She received a SNF list from [facility] and noted [facility] was her first choice because a family member is there, but that is not INN with insurance. SW offered to still place referral and inquire about OON benefits or one-time contracts. interested also in [facility] and [facility]. SW educated to [facility] only having semi-private rooms, but it is the least expensive SNF option. requested referrals to all 3 SNFs to determine availaibility. stated she is coming to visit this morning and SW to leave list of private duty aides in pt's room for to review and start contacting. appreciative of assistance and support. SW will continue to follow. - Referrals sent via [facility] to [facility]. Magda Whitt MSW PIZZA HUT TEAM MEMBER
[2025-04-03 12:00] VITALS: BMI 33.0
--- NOTE | 2025-04-03 14:46 | CASEMGMT ---
Social Work SW met with patient's and friend. SW provided updated information from [facility]T [facility] explaining that pt has since declined in therapy. Pt is being co-treated again. Pt's Parkinson's seems to be flaring up; he is 'freezing', his TUG score and ambulation distance has drastically declined. Pt's cognition and swallowing has also declined and provided examples from [facility] [employer] [facility]. IDT concerned with pt returning home and having assist. Recommending 24/7 care and currently needing 2 people to assist pt. SW educated that Parkinson's is a progressive disease and a movement disorder. Pt will have good and bad days and needs to be prepared for both. is conflicted with decision for DC. inquired further about insurance coverage. SW re-educated to INN and ONN benefits, private pay room and board, and the facilities would need to be INN with both [employer] and [employer], as [employer] is the insurance pt is switching to in 2025. [facility] confirmed that [facility] does not have any OON benefits. SW encouraged to research that plan further to ensure that is the best fit for pt and . and friend agreed and will discuss with hospital insurance clerk. interested in [facility] as well. SW to place referral. SW also provided list of private duty TIME STUDY TECHNOLOGIST that are OOP cost. appreciative of time and assistance. SW will provide with outcome of insurance update and SNF referrals. - SW sent referral to [facility] via [facility]. Magda Whitt LEAN MANUFACTURING ENGINEER PRECISION FARMING SPECIALIST
[2025-04-03 16:00] VITALS: BP 131/73; PULSE 67; RESP 16; TEMP 36.8; O2SAT 93
--- NOTE | 2025-04-03 17:14 | RAD_ITS ---
PROCEDURE: CHEST PA AND LATERAL 04/03/2025 REASON FOR EXAM: COUGH. TECHNIQUE: Procedure Code: RADCXR Modality: DX Procedure: CHEST PA AND LATERAL FINDINGS: No focal consolidation. Mild pulmonary vascular congestion. No pleural effusion or pneumothorax. Cardiac silhouette is within normal limits. Calcified aortic arch. No acute fractures. TAVR noted. RAD/Chest PA and Lateral IMPRESSION: No focal consolidation. Mild pulmonary vascular congestion. Reading Location: [id number]
--- NOTE | 2025-04-03 17:54 | NURSING ---
Therapy reported patient decline, states patient cough has increased, and has phlegm. LS clear/diminished. Patient states he "has had a dry cough." Updated Dr. Romano. New orders entered by Dr. Romano.
[2025-04-03 19:53] LABS: Hematocrit 30.8 % (40-54); Hemoglobin 9.9 g/dL (13.0-16.5); Immature Granulocytes Count 0.120 X10^3/uL (0.0-0.0); Mean Corp Hgb Conc 32.1 g/dL (32-36); Mean Corpuscular Volume 90.1 fL (80-94); Mean Platelet Vol. 11.0 fl (6.2-12.0); NRBC Flagged by Analyzer 0 % (0-5); Platelet Count 230 K/mm3 (150-450); RBC Distribution Width CV 15.0 % (11.6-14.6); RBC Distribution Width SD 49.4 fl (35.1-43.9); Red Blood Count 3.42 M/mm3 (4.6-6.2); White Blood Count 11.7 K/mm3 (4.4-11.0)
[2025-04-03 20:23] LABS: Anion Gap 14 (5-15); BUN 44 mg/dL (4-19); BUN/Creat Ratio 23.1 RATIO (10-20); Calcium,Total 8.8 mg/dL (7.6-11.0); Carbon Dioxide 22.2 mmol/L (21.0-32.0); Chloride 107 mmol/L (98-108); Estimated Creatinine Clearance 37.19 ml/min (50-250); Glucose 186 mg/dL (70-99); Potassium 4.9 mmol/L (3.3-5.1)
[2025-04-03] MEDS: Senna/Docusate Sodium 1 Tablet 2 TABLET PO (20:23)
[2025-04-04 07:26] VITALS: RESP 17
--- NOTE | 2025-04-04 08:27 | CASEMGMT ---
Social Work SW phoned to update that [facility] can accept [facility] but not [employer]. [facility] can accept [employer] but not [facility]. [facility] can accept the pt under both insurances. SW reminded that [facility] is the other in [place] that can accept both insurances as well. stated, "I've made a decision this morning that I am going to take him home. Call me crazy, but I need to try". was emotional and apologized. SW validated feelings. SW inquired who was going to help the at home. stated she is going to contact the private duty agencies today and see who can accept. SW agreed that was a good idea and also recommended attend ongoing therapy training. agreed and will start attending today. SW updated the therapists. appreciative of this worker's assistance. SW will continue to follow and updated [facility]. Magda Whitt MSW PASSENGER BRAKEMAN
[2025-04-04 10:15] VITALS: BP 129/68; PULSE 94; RESP 18; TEMP 36.6; O2SAT 97
[2025-04-04] MEDS: Aspirin E.C. 81 MG Tablet PO (10:18)
[2025-04-04] MEDS: LINAGLIPTIN 5 MG TABLET PO (10:18)
[2025-04-04] MEDS: metFORMIN (XR) 500 MG Tablet PO ×2 (10:19→16:51)
[2025-04-04 14:10] LABS: Mucous, Urine 0 SEEN /hpf (<or=2+); Red Blood Cells-Urine 0 SEEN /hpf (0-5); Squamous Epithelial Cells - UA 0 SEEN /hpf (0-5)
[2025-04-04 14:13] LABS: Color, Urine Yellow (Yellow); Glucose, Dipstick Normal (Normal); Ketone-Dipstick Negative (Negative); Leukocyte Esterase-Dipstick Negative /ul (Negative); Nitrite-Dipstick Negative (Negative); Occult Blood-Urine Negative /ul (Negative); Protein-Dipstick 30 mg/dl (Negative); Specific Gravity, Urine 1.015 (1.002-1.030); Urine Bilirubin Dipstick Negative (Negative)
[2025-04-04 14:46] VITALS: O2SAT 98
--- NOTE | 2025-04-04 14:58 | CASEMGMT ---
Social Work present at bedside. SW provided requested resources on Parkinson's Disease. stated she contacted several home care agencies and is meeting with [facility] on Wednesday. - attended therapy session and therapy reported pt had decline and is now a burton lift for safety. Communication left for Dr. Romano on change in status. acknowledged she cannot care for pt at home and pt also voiced he does not want to get hurt. emotional but agreed to pursue SNF placement. stated she is meeting with their insurance account executive on Wednesday and will update RUBIN if she chooses to not change insurances to [facility] in 2025, which may change the SNF options. SW agreed. Will continue to follow. Magda Whitt MSW INSURANCE CLAIMS ADJUSTER
[2025-04-04 16:00] VITALS: BP 98/55; PULSE 81; RESP 16; TEMP 36.4; O2SAT 97
--- NOTE | 2025-04-04 16:58 | PCA ---
no void nurse aware and bladder scanning
[2025-04-05] MEDS: LINAGLIPTIN 5 MG TABLET PO (08:09)
[2025-04-05] MEDS: metFORMIN (XR) 500 MG Tablet PO ×2 (08:10→16:24)
[2025-04-05] MEDS: Aspirin E.C. 81 MG Tablet PO (08:10)
[2025-04-05 08:22] VITALS: BP 104/69; PULSE 75; RESP 18; TEMP 36.7; O2SAT 96
[2025-04-05 15:00] VITALS: BP 125/82; PULSE 79; RESP 14; TEMP 35.7; O2SAT 94
--- NOTE | 2025-04-05 17:10 | NURSING ---
Bladder scanned pt due to no output this shift for >900mL Straight cath for 1050mL
[2025-04-05 20:30] VITALS: PULSE 118; RESP 20; O2SAT 90
--- NOTE | 2025-04-05 21:12 | NURSING ---
This nurse was walking by room at approximately 20:15 when noted patient was on floor, lying on right side in front of chair. Patient's eyes were closed, but he woke up when this nurse spoke to him. He was last observed at 20:00 by this nurse sitting in his chair. VS taken: [id number] Temporal-90% room air. Patient stated he did hit head, no red velásquez or edema noted to right side or back of head. Right elbow noted to have new skin tears. Patient stated he landed on his elbow and it did hurt. No deformities noted to right elbow. Unable to stand patient from floor. Tyrone pad placed under patient and he was lifted from floor to bed. Right arm cleaned and dressed. Patient appeared very tired, eyes closed, but would open them when spoken to. Eyes PEERL. Dr. Romano notified of fall. New orders to send to ER. Family notified, VM left. supervisor forming department notified. Report called to ER. Patient transported to ER at approximately 21:10.
--- NOTE | 2025-04-06 00:37 | NURSING ---
Addendum entered by John Cox 04/06/25 01:15: Patient's updated of status. Original Note: Patient returned from ER. New orders received from Dr. Romano.
[2025-04-06] MEDS: 0.9% Normal Saline (1000mL) 1,000 ML 75 ML IV (01:49)
--- NOTE | 2025-04-06 05:51 | NURSING ---
Patient resting in bed, having brief periods of apnea. Able to arouse him for a very short time with sternal rubs, speaking loudly. Opens eyes, doesn't focus on anything, closes eyes almost immediately. Held PO medications due to status. SpO2 fluctuating between 81-95%, O2 turned up to 3L/min via nc. Continues to receive IV fluids 75ml/hr via SL left forearm. No issues with IV. Continue frequent checks. Call light is within reach, alarms in place.
[2025-04-06 05:53] LABS: Hematocrit 29.3 % (40-54); Hemoglobin 9.5 g/dL (13.0-16.5); Immature Granulocytes Count 0.070 X10^3/uL (0.0-0.0); Mean Corp Hgb Conc 32.4 g/dL (32-36); Mean Corpuscular Volume 91.0 fL (80-94); Mean Platelet Vol. 11.2 fl (6.2-12.0); NRBC Flagged by Analyzer 0 % (0-5); Platelet Count 228 K/mm3 (150-450); RBC Distribution Width CV 15.0 % (11.6-14.6); RBC Distribution Width SD 50.4 fl (35.1-43.9); Red Blood Count 3.22 M/mm3 (4.6-6.2); White Blood Count 11.7 K/mm3 (4.4-11.0)
[2025-04-06 05:58] VITALS: O2SAT 94
[2025-04-06 07:25] LABS: Anion Gap 13 (5-15); BUN 48 mg/dL (4-19); BUN/Creat Ratio 22.1 RATIO (10-20); Calcium,Total 8.7 mg/dL (7.6-11.0); Carbon Dioxide 20.1 mmol/L (21.0-32.0); Chloride 109 mmol/L (98-108); Estimated Creatinine Clearance 32.41 ml/min (50-250); Glucose 137 mg/dL (70-99); Potassium 4.8 mmol/L (3.3-5.1)
[2025-04-06 08:46] VITALS: BP 143/64; PULSE 60; RESP 18; TEMP 36.3; O2SAT 99
--- NOTE | 2025-04-06 08:49 | NURSING ---
pt woke easily for this nurse this AM, able to answer questions approp but still lethargic. asked this nurse how day is. pt resting in bed, heels elevated on pillow. oxygen 2 liters, sat 99%. HOB elevated 30. call light in reach. alarms in place
--- NOTE | 2025-04-06 10:24 | NURSING ---
pt at bedside, pt wakes easily but goes right back to sleeping. holding off on meds d/t lethargy and risk of choking on meds. reported pt has history of sleep apnea was suppose to be wearing PAP machine but hasn't for 1 yr. states pt could not get it to fit right, had many sleep studies and mask adjustments with no help, "it was frustrating him so he just quit wearing it". oxygen at 2 liters while sleeping.
[2025-04-06] MEDS: Aspirin E.C. 81 MG Tablet PO (12:44)
[2025-04-06] MEDS: metFORMIN (XR) 500 MG Tablet PO ×2 (12:45→16:41)
[2025-04-06] MEDS: LINAGLIPTIN 5 MG TABLET PO (12:46)
--- NOTE | 2025-04-06 12:54 | NURSING ---
pt given all meds except neurontin at this time d/t lethargy. pt more awake, joking around. at side. therapy has pt sitting up on edge of bed and was able to swallow all pills in applesauce w/out difficulty. pt leaning to right and starts leaning back. therapy assisting pt to sit tall.
[2025-04-06 16:00] VITALS: BP 162/80; PULSE 70; RESP 18; TEMP 36.6; O2SAT 70
[2025-04-07 07:17] VITALS: O2SAT 96
[2025-04-07 07:41] LABS: Anion Gap 11 (5-15); BUN 47 mg/dL (4-19); BUN/Creat Ratio 24.1 RATIO (10-20); Calcium,Total 9.2 mg/dL (7.6-11.0); Carbon Dioxide 23.1 mmol/L (21.0-32.0); Chloride 110 mmol/L (98-108); Estimated Creatinine Clearance 36.61 ml/min (50-250); Glucose 157 mg/dL (70-99); Potassium 4.7 mmol/L (3.3-5.1)
[2025-04-07 08:59] VITALS: BP 143/76; PULSE 88; RESP 18; TEMP 36.8; O2SAT 96
[2025-04-07] MEDS: Aspirin E.C. 81 MG Tablet PO (09:00)
[2025-04-07] MEDS: LINAGLIPTIN 5 MG TABLET PO (09:01)
[2025-04-07] MEDS: metFORMIN (XR) 500 MG Tablet PO ×2 (09:02→16:44)
[2025-04-07 10:00] VITALS: PULSE 65; RESP 18; O2SAT 96
[2025-04-07 12:29] VITALS: O2SAT 97
[2025-04-07] MEDS: 0.9% Saline Lock 10 ML Syringe IV (16:43)
--- NOTE | 2025-04-08 08:48 | NURSING ---
pt in common area for breakfast, increased drowsiness over the last few days, attempted to get patient to speak, he would only open his eyes and stare at you. hand grasps are present but weak. spoke with on changes, new orders obtained. when approached patient to return him to his room to place him in bed he spoke a few words. but would close eyes again, responds to voice and touch stimuli for short moments, and returns eyes to close. pt returned to bed, alarm on. will hold off on am meds, and will continue to monitor patient.
--- NOTE | 2025-04-08 10:14 | NURSING ---
canceled new orders that were obtained this AM. would like hospice referral done, order placed and call placed to hospice. code status changed per Suri. Dr. Romano aware. PT more alert at this time and spoke with him and gave him and update on care, Yvan understood and agrees with this plan. This nurse asked pt if he would be willing to take his meds this am since he is more awake, he agreed to, nurse will administer meds and continue to monitor pt.
[2025-04-08] MEDS: Aspirin E.C. 81 MG Tablet PO (10:59)
[2025-04-08] MEDS: metFORMIN (XR) 500 MG Tablet PO (10:59)
[2025-04-08] MEDS: LINAGLIPTIN 5 MG TABLET PO (11:01)
--- NOTE | 2025-04-08 12:10 | NURSING ---
hospice aware of consult, at bedside, pt more alert, meds administered
--- NOTE | 2025-04-08 12:11 | NURSING ---
hospice returned phone call will meet with patient and at 530pm today
[2025-04-09 09:00] VITALS: BP 151/94; PULSE 94; RESP 20; TEMP 36.3; O2SAT 97
--- NOTE | 2025-04-09 10:22 | CASEMGMT ---
Addendum entered by Magda Whitt 04/09/25 10:49: SW phoned Physician's and scheduled cot transport for 1100. Original Note: Social Work SW followed up with Yohana at [facility] to inquire about outcome of visit with over the weekend. Yohana stated the had an informational session, but pt has not been evaluated by hospice yet. SW phoned to follow up on plans. confirmed she met with hospice and she and pt want hospice services. Pt wants to DC home and agreeable. SW agreed to have hospice assist at home but they do not provide 24/ care and inquired about additional assistance. stated she will contact [facility]. inquired about DC date as the insurance update is tomorrow. SW confirmed insurance update but explained since pt/ has elected hospice, pt can DC at any time. requested for pt to receive additional time. SW explained now that pt has elected hospice, the insurance will issue a DC date, which would likely be for 04/13, but pt can DC prior. stated she would like time this week to get things in order at home and agreed to DC 04/13. SW confirmed and will coordinate transport and update hospice. appreciative. - IDT updated. [facility] updated. Plan: DC home 04/13 with and [facility] Magda Whitt [employer]
--- NOTE | 2025-04-09 19:25 | DS.PCM_ITS ---
Providers Date of Admission: 03/22/25 Primary Care Physician: Dr. Lalo Hwang MD Reason For Visit: FALLS & ADULT FAILURE TO THRIVE Diagnosis Discharge Diagnosis (1) Debility: Status: Acute Code(s): R53.81 - Other malaise (2) Failure to thrive: Status: Acute (3) Pneumonia: Status: Acute Code(s): J18.9 - Pneumonia, unspecified organism (4) Elevated troponin: Status: Acute Code(s): R79.89 - Other specified abnormal findings of blood chemistry (5) Non Hodgkin's lymphoma: Status: Acute Code(s): C85.90 - Non-Hodgkin lymphoma, unspecified, unspecified site (6) Coronary artery disease: Status: Acute Code(s): I25.10 - Atherosclerotic heart disease of [place] coronary artery without angina pectoris (7) Type 2 diabetes mellitus with hyperglycemia: Status: Acute Code(s): E11.65 - Type 2 diabetes mellitus with hyperglycemia (8) Parkinson disease: Status: Acute Code(s): G20.A1 - Parkinson's disease without dyskinesia, without mention of fluctuations (9) Anemia: Status: Acute Code(s): D64.9 - Anemia, unspecified (10) Atrial fibrillation: Status: Acute Code(s): I48.91 - Unspecified atrial fibrillation (11) HFrEF (heart failure with reduced ejection fraction): Status: Acute Code(s): I50.20 - Unspecified systolic (congestive) heart failure Plan 84 year old male with below past medical history hospitalized for failure to thrive 2/2 pneumonia, admitted to TCU with debility, here for rehabilitation, strengthening, prior to discharge home with . * Debility - PT/OT. * Cognition - ST. * Pain - Tylenol 1000mg q6 prn pain (1-10). * Bowel - senna/colace 2 tablets bid prn. * Adult immunization - Administer pneumonia vaccine, covid vaccine, flu vaccine as appropriate. * DVT prophylaxis - Lovenox 40mg sc daily. * Coronary artery disease - Metoprolol succinate 50mg bid, Aspirin 81mg daily. * Hyperlipidemia - Atorvastatin 40mg qhs. * Parkinson Disease - Sinemet 25/100mg tidac. 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 * Pneumonia - Cefdinir 300mg bid thru 03/27/2025, Doxycycline 100mg bid thru 03/27/2025. * Cough - Robitussin 10mL po q4 prn. * Vitamin B12 deficiency - B12 1000mcg daily. * Iron deficiency anemia - Ferrous sulfate 324mg bidcm. * Folate deficiency - Folic acid 1mg daily. * Chronic HFpEF - Metoprolol succinate 50mg bid, Furosemide 40mg daily. * Diabetic polyneuropathy - Gabapentin 300mg bid. * Diabetes Mellitus II - Metformin XR 500mg bidcm, Tradjenta 5mg daily. * Skin irritation - Calmoseptine topical bid. * Thrush - Nystatin 500,000 po 4x/day thru 04/01/2025. * Tinea Corporis - Nystaitn powder topical bid. * BPH - Tamsulosin 0.4mg bid. The following psychotropic medication was present on admission: Sertraline 50mg daily. Psychotropic medication therapy is indicated for a diagnosis of: Major Depression. Based on my clinical evaluation, continuation of the medication is necessary at this time. Gradual dose reduction plan (select one): ____ GDR will be attempted. Will monitor patient symptoms and behaviors in response to GDR. __x__ GRD contraindicated. 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 The following psychotropic medication was present on admission: Lorazepam 0.5mg po q4 prn. Psychotropic medication therapy is indicated for a diagnosis of: Anxiety. Based on my clinical evaluation, continuation of the medication is necessary at this time. Gradual dose reduction plan (select one): ____ GDR will be attempted. Will monitor patient symptoms and behaviors in response to GDR. __x__ GRD contraindicated. Reason contraindicated: stable chronic half-way use. Hospital Course Operations None Procedures None Summary of Care Provided Minutes Spent on Discharge: 35 Hospital Course: 84 year old male with below past medical history hospitalized for failure to thrive 2/2 pneumonia, admitted to TCU with debility, here for rehabilitation, strengthening, prior to discharge home with . Yvan had significant decline. He/ requested comfort care. Discharge home with 04/13/2025, [facility]. Physical Exam Const alert General Appearance: cooperative HEENT normocephalic Eyes PERRL and EOMs intact bilaterally Neck supple, no JVD and no carotid bruits Resp normal respiratory effort, normal air movement and clear to auscultation bilaterally Cardio regular rate and regular rhythm GI normal to inspection, nondistended, normoactive bowel sounds, non-tender and non-distended Extremity normal capillary refill General Extremity: Negative for edema Skin no rashes or lesions noted General Skin Exam: no breakdown Psych affect normal Appearance: appropriate Weight / BMI Weight Weight: 110.733 kg Body Mass Index (BMI) 33.0 ABG / Lab / Microbiology Data 04/06/25 05:24 04/07/25 06:30 Laboratory: Laboratory Results - last 24 hr 04/09/25 06:01: POC Glucose 145 H Microbiology: Microbiology 04/03/25 17:30 Urine Catheter - Catheter Urine Culture - Final Culture exhibits no growth. 04/03/25 18:02 Mucosa - Nasopharyngeal Respiratory Panel (PCR) - Final 04/03/25 17:20 Nasal Secretion SARS-CoV-2 Antigen (Rapid) - Final D/C Instructions DC O2, CPAP, BIPAP Needs Home O2 Discharge instructions: No Additional Instructions: Discharge home with 04/13/2025, [facility]. Please Follow Up With: Lalo Otto MD When: Cancel. Meaningful Use Info Meaningful Use Meaningful Use Diagnoses (Choose all that apply): None applicable Discharge Plan Admission Admit Date/Time: 03/22/25 15:41 Primary Reason for Your Visit: Debility. Attending Provider: Bertrand Romano Chi Primary Care Provider: Lalo Hwang Instructions Additional Instructions / Restrictions: Discharge home with 04/13/2025, [facility]. Discharge Orders/Prescriptions Prescriptions: Discontinued atorvastatin 40 mg tablet 40 mg PO QHS metformin 500 mg tablet extended release 24 hr 500 mg PO BID Rx Instructions: resume 01/27/2020 carbidopa-levodopa 25-100 mg tablet 1 tab PO TID folic acid 1 mg Tablet 1 mg PO DAILY furosemide 40 mg tablet 40 mg PO DAILY lorazepam 0.5 mg Tablet 0.5 mg PO Q4H PRN (Reason: aggitation & restlessness) ferrous gluconate 324 mg (37.5 mg iron) Tablet 325 mg PO BID sennosides-docusate sodium [Stimulant Laxative Plus] 8.6-50 mg Tablet 2 tab PO BID PRN PRN (Reason: Constipation) Qty: 0 0RF tamsulosin [Flomax] 0.4 mg capsule 0.4 mg PO BID rivastigmine tartrate 1.5 mg Capsule 1.5 mg PO BIDCM 30 Days Qty: 60 0RF enoxaparin [Lovenox] 40 mg/0.4 mL syringe 40 mg subcut DAILY guaifenesin [Mucinex] 600 mg tablet extended release 12hr 600 mg PO BID nystatin 100,000 unit/gram powder 1 applic topical BID PRN (Reason: Redness) gabapentin 100 mg capsule 200 mg PO BID finasteride 5 mg tablet 5 mg PO DAILY Tradjenta 5 mg tablet 5 mg PO DAILY cyanocobalamin (vitamin B-12) 1,000 mcg capsule 1,000 mcg PO DAILY sertraline [Zoloft] 50 mg tablet 50 mg PO DAILY aspirin [Adult Low Dose Aspirin] 81 mg tablet,delayed release (DR/EC) 81 mg PO QDAY Referrals / Follow Up: Lalo Hwang MD [Primary Care Provider, Medical] Disposition Disposition (needs filled in before D/C Order can be placed): Hospice in Home
[2025-04-09 22:20] VITALS: PULSE 80; O2SAT 97
[2025-04-10] MEDS: morphine (oral solution) 10MG/0.5ML Syringe 10 MG SL/PO ×2 (06:04→16:34)
--- NOTE | 2025-04-10 07:27 | NURSING ---
Written communication left for Dr. Romano regarding clarification for AM blood sugar check order.
[2025-04-10 07:54] VITALS: BP 157/88; PULSE 50; RESP 20; TEMP 36.4; O2SAT 98
[2025-04-10 14:00] VITALS: RESP 20
--- NOTE | 2025-04-10 15:45 | CASEMGMT ---
Addendum entered by Magda Whitt 04/10/25 17:04: SW canceled Physician's transport Original Note: Social Work Staff expressed concern with pt remaining stable for a successful DC 04/13 and inquired about DC sooner or IPU. SW recalled wanting pt to at home, but will follow up. RUBIN spoke with and DR agreed to home sooner, IPU or on TCU. - SW presented to pt's room. present. SW inquired about readiness for pt to return home. stated she has the home ready; [facility] is scheduled for an assessment tomorrow at 1300. SW gently explained Dr and staff note pt is actively dying and may not have until Wednesday to DC. emotional but voiced understanding. SW inquired about DC home sooner or admit to IPU. confirmed she wants pt to at home but agreed to earlier DC. SW to contact hospice and [facility] to inquire about change in DC. appreciative. - RUBIN phoned Yohana at [facility] to update. Yohana confirmed she can complete admission with at bedside, order DME (O2) and schedule transport home for tonight. SW appreciative and provided needed information. RUBIN phoned Juan M at [facility] to update and inquire about sooner DC. Juan M stated they can change the assessment to the home tomorrow at 1300 and schedule aides from there. - SW returned to room. Updated . Friends came to support and Yohana arrived. IDT updated. Will await transport time. Plan: DC home 04/10 with and [facility] Magda Whitt [employer]
[2025-04-10 16:00] VITALS: PULSE 104; RESP 34; TEMP 37.4; O2SAT 90
--- NOTE | 2025-04-10 17:40 | NURSING ---
PO ativan from [facility] retail pharmacy given at this time per family request. demonstrated how to administer crushed in sm amt of water for home use. and daughter at side. verbalized understanding. Hospice nurse to continue teaching at home & this was explained to family
--- NOTE | 2025-04-10 18:00 | NURSING ---
pt off unit with transport via cot to home with hospice
== END 2025-04-10 18:02 | disposition hospice, home (50) | DRG 194 ==
PROVIDERS: Admitting Provider Family Medicine Geriatric Medicine; PCP Family Medicine; Referring Provider Family Medicine Geriatric Medicine; Visit Provider Family Medicine Geriatric Medicine
DX: J18.9 Pneumonia, unspecified organism (principal); C85.90 Non-Hodgkin lymphoma, unspecified, unspecified site; B37.0 Candidal stomatitis; I42.8 Other cardiomyopathies; I50.42 Chronic combined systolic (congestive) and diastolic (congestive) heart failure; R62.7 Adult failure to thrive; Z51.5 Encounter for palliative care; Z66 Do not resuscitate; I48.0 Paroxysmal atrial fibrillation; B35.4 Tinea corporis; E11.22 Type 2 diabetes mellitus with diabetic chronic kidney disease; F02.80 Dementia in other diseases classified elsewhere, unspecified severity, without behavioral disturbance, psychotic disturbance, mood disturbance, and anxiety; G20.A1 Parkinson's disease without dyskinesia, without mention of fluctuations; D50.9 Iron deficiency anemia, unspecified; N18.9 Chronic kidney disease, unspecified; F32.9 Major depressive disorder, single episode, unspecified; E11.65 Type 2 diabetes mellitus with hyperglycemia; I25.10 Atherosclerotic heart disease of native coronary artery without angina pectoris; E53.8 Deficiency of other specified B group vitamins; E78.5 Hyperlipidemia, unspecified; E11.42 Type 2 diabetes mellitus with diabetic polyneuropathy; F41.9 Anxiety disorder, unspecified; Z87.891 Personal history of nicotine dependence; Z79.899 Other long term (current) drug therapy; N40.0 Benign prostatic hyperplasia without lower urinary tract symptoms; Z79.82 Long term (current) use of aspirin; Z79.84 Long term (current) use of oral hypoglycemic drugs
CPT/HCPCS: 36415; 71046; 80048; 81001; 82962; 85014; 85018; 85025; 87086; 87633; 87811; 92507; 92523; 92526; 92610; 97110; 97116; 97129; 97130; 97162; 97166; 97530; 97535; A4216

== ENCOUNTER 2025-04-05 21:01 | Emergency (ER) | payer MEDICARE, SELFPAY ==
[2025-04-05 21:02] VITALS: BP 97/82; PULSE 122; RESP 19; TEMP 36.8; O2SAT 93; BMI 33.5
--- OUTSIDE RECORDS SUMMARY | 2025-04-05 21:13 | XMS RPT_ITS | CCD ---
Author Organization [facility] Care Team Providers Care [employer] Consultant Name Role Phone Tasha Romeroginger Gillis Unavailable Nick Manuela Gillis Unavailable FRANKY Greco, Macey Ordonez Unavailable Unavailabl e Jam VILLANUEVA, Arsh Grier Primary Care Provider [phone] Arsh Polk MD Primary Care Provider Dr. Arsh Polk Primary Care Provider Dr. Arsh Polk Referring Provider Dr. Fish Cano Attending Provider KatrinaDr. Lopez Attending Provider Eleanor FOUNTAIN SERVER, FOUNTAIN SERVER-Raul Feliciano Attending Provider Dr. Fish Cano Other Provider Arsh Polk MD Primary Care Provider Arsh Polk MD Primary Care Provider Dr. Arsh Polk Primary Care Provider Dr. Arsh Polk Referring Provider Kaitlin FOUNTAIN SERVER, FOUNTAIN SERVER-C Marlen Ordonez Attending Provider Eleanor FOUNTAIN SERVER, FOUNTAIN SERVER-Raul Feliciano Attending Provider Arsh Polk MD Primary Care Provider Arsh Polk MD Primary Care Provider Cathi MANAGER SOFTWARE DEVELOPMENT.Lexi TORRES Unavailable Elena MANAGER SOFTWARE DEVELOPMENT.PROP DRAWER, Romina A Unavailable Suppan MANAGER SOFTWARE DEVELOPMENT.PROP DRAWER, Romina A Unavailable Suppan MANAGER SOFTWARE DEVELOPMENT.PROP DRAWER, Romina A Unavailable Liliam Holt RN Unavailable Dr. Arsh Polk MD Primary Care Provider Dr. Arsh Polk MD Referring Provider Alva Vázquez Attending Provider Dr. Nakia Laboy DO Attending Provider Dr. Nakia Laboy DO Referring Provider Dr. Nakia Laboy DO Other Provider Alva Vázquez Referring Provider [phone] Katrina VILLANUEVA, Dr. Lopez Attending Provider [phone] Didier Encarnacion DO Attending Provider Dr. Didier Encarnacion DO Emergency Provider [phone] [facility] Reagan AYERS Attending Provider PATTI MOREIRA Referring [...] BAILEY Attending Unavailable PATTI MOREIRA Referring Unavailable Dayday Dominguezolas F Admitting Unavailable Owen Chakraborty Attending Unavailable [place], Arsh Primary Care Unavailable Angelica Rey F Consulting Unavailable Owen Chakraborty Consulting Unavailable Alva Vázquez Referring Unavail able John Herndon Attending Unavailable [place], Arsh Primary Care Unavailable John Herndon Attending Unavailable [place], [employer] Primary Care Unavailable Ave Rivero Consulting Unavailable Ave Rivero Admitting Unavailable [facility] Primary Care Unavailable Agatha Davis Attending Agatha Morejon Consulting Juan Carlos Tineo Consulting Unavailable Ave Rivero Attending Unavailable [place], Arsh Primary Care Unavailable Juan Carlos Martínez Attending Unavailable Jinonis Rey F Admitting Unavailable Owen Chakraborty Attending Unavailable Angelica Rey F Consulting Unavailable [place], Arsh Primary Care Unavailable Nakia Laboy Referring Unavailable Nakia Laboy Attending Unavailable [place], Arsh Primary Care Unavailable [place], Arsh Attending Unavailable [place], Arsh Primary Care Unavailable [place], Arsh Referring Unavailable Didier Encarnacion Attending Unavailable [place], Arsh Primary Care Unavailable Juan Antonio Bertrand Chi Attending Unavailable Juan Antonio, Bertrand Chi Admitting Unavailable [place], Arsh Primary Care Unavailable Nakia Laboy Consulting Unavailable Alva Vázquez M Referring Unavail able Alva Vázquez Attending Unavail able [facility] Primary Care Unavailable Nakia Laboy Referring Unavailable Nakia Laboy Attending Unavailable [facility] Primary Care Unavailable Rey Dominguez Attending Unavailable [facility] Care Unavailable Alva Vázquez Attending Unavail able [facility] Care Unavailable [facility] Referring Unavailable Eleanor FOUNTAIN SERVER, Reagan Feliciano Attending Unavailable [facility] Primary Care Unavailable [facility] Referring Unavailable Allergies Allergy Classification Reported Allergen(s) Allergy Type Date of Onset Reaction(s) Facility HMG-CoA Reductase Inhibitors (statins) (2 sources) atorvastatin Drug Allergy 7 Myalgia [facility] Work Phone: (20 sources) pravastatin; Translations: [PRAVASTATIN] Drug Allergy 7 Myalgia [facility] Work Phone: (4 sources) NKDA; Translations: [NKDA] allergy to substance 7 [facility] Work Phone: [phone] (5 sources) Angiotensin-conv erting enzyme inhibitor agent; Translations: [MAI INHIBITORS] Propensity to adverse reactions to drug 8 Other: See Comments [facility] Work Phone: (20 sources) atorvastatin; Translations: [ATORVASTATIN] Drug Allergy 7 Myalgia [facility] Work Phone: (5 sources) HMG-CoA reductase inhibitor; Translations: [[id number]-FAV REDUCTASE INHIBITORS] Drug Intolerance 9 Myalgia [facility] Work Phone: (20 sources) Angiotensin-conv erting enzyme inhibitor agent Propensity to adverse reactions to drug 8 Other: See Comments [facility] Work Phone: (20 sources) HMG-CoA reductase inhibitor Drug Intolerance 9 Myalgia [facility] Work Phone: Medications Current Medications Medication Drug [...] TABS One tablet by mouth daily ASPIRIN [id number] Macey Greco RN Comment on above: Take [...] Start: 11-17-2022 take 1 tablet by johny th once daily Carbidopa-Levodopa Active 1 TABLET PO [...] mg PO DAILY September 03, 2024 12:00am [facility] Start: 04-27-2024 End: 09-03-2024 take 1 tablet by mouth every other day Ferrous Gluconate 324 mg (37.5 mg iron) Tablet Discontinued 325 mg PO EVERY OTHER DAY April 27, 2024 1:00am September 03, 2024 12:21pm [facility] Start: 03-06-2024 End: 01-03-2025 take 1 tablet [...] mg tablet Discontinued 40 mg PO DAILY 90 March 25, 2021 12:52pm October 24, 2021 [...] two times a day. 60 capsule 11 11/28/2024 11/28/2025 Active Start: 10-16-2021 End: 11-17-2022 [...] PAIN Start: 03-23-2017 [facility] GABAPENTIN 300 MG CAPS One tablet by mouth three times daily GABAPENTIN [id number] Macey Greco RN Comment on above: Take 1 capsule by mo [facility] twice daily. linagliptin 5 mg oral tablet (1 source) Dipeptidyl Peptidase 4 Inhibitor Start: linagliptin (TRADJENTA) tablet 5 mg LORazepam 0.5 mg oral tablet (20 sources) Benzodiazepine Start: End: take 1 tablet by mouth every four hours as needed Lorazepam 0.5 mg Tablet Active 0.5 mg PO Q4H as needed for aggitation & restlessness September 03, 2024 12:00am mecobalamin 1 mg chewable tablet (1 source) Start: take 1 tablet by mouth once daily Mecobalamin (Vitamin B12) 1,000 mcg tablet,chewable Active 1000 ug PO DAILY November 16, 2023 12:00am [facility] 24 hr metFORMIN hydrochloride 500 mg extended release oral tablet (20 sources) Biguanide Start: End: take 1 tablet by mouth [...] Discontinued 2000 mg PO WITH BREAKFAST 0 January 24, 2020 12:21pm November 16, [...] Start: 01-09-2014 take 3 tablets by mo ut once daily at breakfast METFORMIN HCL 1000 MG TABS Three tablets by mouth daily with breakfast METFORMIN HCL [id number] Macey Greco RN Start: 01-09-2014 take 1 tablet by johny th twice daily METFORMIN HCL 1000 MG TABS One tablet by mouth twice daily METFORMIN HCL [id number] Shanna Guillaume Kalin Start: 01-09-2014 METFORMIN HCL 500 MG TABS four tablets with breakfast METFORMIN HCL [id number] John Herndon MD Comment on above: Take 4 tablets by mo uth daily with breakfast. Take 1 tablet by johny th two times a day before meals. 2 [...] MEALS 135 capsule 3 06/01/2024 Active Saw Bowlegs 160 MG CAPS (3 sources) take 1 capsule by mouth once daily Saw Bowlegs 160 MG CAPS Take by mouth daily 0 Active sertraline 50 mg oral tablet (20 sources) Serotonin Reuptake Inhibitor Start: 02-20-2022 End: 08-06-2024 take 1 tablet by mouth once daily sertraline (ZOLOFT) 50 mg tablet Indications: Fatigue, unspecified type , Anxiety with depression Take 1 tablet by mouth once daily. 90 tablet 3 08/07/2024 Active Start: 01-21-2022 take 0.5 tablet by m outh once daily, then take 1 tablet by [...] a day Take 1 tablet by johny th once daily. SITagliptin 50 mg oral tablet [...] AT BEDTIME Take 1 capsule by mo [facility] daily at bedtime. terbinafine hydrochloride 10 mg/ml topical cream (11 sources) Allylamine Antifungal Start: 5 End: 5 terbinafine HCl (LAMISIL) 1 % cream Indications: [...] Start: 10-06-2018 take 1 tablet by johny th once daily cyanocobalamin (VITAMIN B-12) 1,000 mcg tab Indications: Anemia, unspecified type Take 1 tablet by mouth once daily. 30 tablet 11 10/06/2018 Active Start: 03-23-2017 CYANOCOBALAMIN 1000 MCG/ML SOLN one injection monthly CYANOCOBALAMIN [id number] Macey Greco RN vitamin B-12 (CY ANOCOBALAMIN) 100 MCG tablet Take 50 mcg by mouth daily 0 Active Comment on above: Take 1 tablet by johny th once daily. Completed/Discontinued Medications Medication Drug Class(es) Dates Sig (Normalized) Sig (Original) [id number] 200 actuat albuterol 0.09 mg/actuat metered dose [...] D3) 1,250 mcg (50,000 unit) capsule Discontinued 11539 U PO EVERY WEEK February 20, 2022 12:00am August 09, 2024 1:05pm [facility] jed Comment on above: Take 1 capsule by [facility] one time a week. cholecalciferol, vitamin D3, [...] One tablet by mouth daily CINNAMON TABS [id number] Macey Greco RN Start: 01-09-2014 CINNAMON TABS as directed CINNAMON TABS [id number] Shanna Guillaume Kalin clopidogrel 75 mg oral tablet (15 sources) [...] Ergocalciferol (Vitamin D2) 50,000 UNIT capsule Discontinued 06208 U PO TU January 22, 2020 12:00am February 20, 2022 10:35am SUPPLEMENT take 1.25 mg by mouth every week vitamin D (ERGOCALCIFEROL) 1.25 MG (89476 UT) CAPS capsule Take 50,000 Units by mouth once a week 0 Active fish oil (3 sources) Start: 01-09-2014 take 1 tablet by mouth once daily [facility] FISH OIL 1200 MG CAPS One tablet by mouth daily OMEGA-3 FATTY ACIDS [id number] Shanna Gagnon glimepiride 4 mg oral tablet (20 sources) Sulfonylurea Start: 01-09-2014 End: 09-25-2024 take 1 tablet by mouth twice daily Glimepiride 4 mg tablet Discontinued 4 mg PO TWICE A DAY March 24, 2018 1:00am April 27, 2024 12:31pm DM Start: 01-09-2014 take 1 tablet by johny th once daily GLIMEPIRIDE 4 MG TABS One tablet by mouth daily GLIMEPIRIDE [id number] Shanna Gagnon Comment on above: Take 1 [...] Spacing Device (1 source) Start: 1 End: 1 Inhalational Spacing Device 1 Device one time only for 1 dose. 1 Each 02/14/2021 02/14/2021 iron sucrose iv piggyback 200 mg in NaCl 0.9% 100 mL (VENOFER) (5 sources) Start: 4 End: 4 iron sucrose iv piggyback 200 mg in [...] March 25, 2021 12:16pm Start: 11-08-2020 End: 11-16-2021 take 2.5 mg by mouth once daily Lisinopril Discontinue d 2.5 MG PO DAILY November 08, 2020 11:01am March 25, 2021 12:16pm Start: 06-21-2020 End: 11-08-2020 take 1 tablet by mouth once daily Lisinopril 5 mg tablet Discontinued 5 mg PO DAILY 30 June 21, 2020 1:00am November 08, 2020 11:03am Start: 01-09-2014 End: 03-23-2017 take 1 tablet by mouth once daily LISINOPRIL 2.5 MG TABS One tablet by mouth daily LISINOPRIL [id number] Macey Greco RN Comment on above: Take [...] th once daily TOPROL XL 50 MG [id number] One tablet by mouth daily METOPROLOL SUCCINATE [id number] Shanna Gagnon Comment on above: Take 1 [...] tablet by mouth twice daily PHENAZOPYRIDINE HCL [id number] John Herndon MD pravastatin sodium 40 mg oral tablet (5 sources) HMG-CoA Reductase Inhibitor Start: 01-09-2014 End: 03-24-2017 take 1 tablet by mouth once daily PRAVASTATIN SODIUM 40 MG TABS One tablet by mouth daily PRAVASTATIN SODIUM [id number] MD steve Copelando (5 sources) Start: 11-16-2023 End: 05-16-2024 saw palmetto Discontinued 1 NMA PO DAILY November 16, 2023 11:01am May 16, 2024 8:49pm prostate Start: 11-17-2022 End: 11-16-2023 saw palmetto Discontinued PO November 17, 2022 12:00am November 16, 2023 11:03am Start: 11-17-2022 saw palmetto A ctive PO November 17, 2022 12:00am Saw Bowlegs 160 mg capsule (20 sources) Start: 02-22-2015 End: 03-27-2024 Saw Bowlegs 160 mg capsule Take 300 mg by mouth once daily. 02/22/2015 03/27/2024 Discontinued (Other) Start: 02-22-2015 Saw Bowlegs 1 60 mg capsule Take 300 mg by mouth once daily. 02/22/2015 Active Start: 02-22-2015 take 1 capsule by mo uth once daily Saw Bowlegs 160 mg capsule Take 160 mg by mouth once daily. 02/22/2015 Active Start: 02-22-2015 take 1 capsule by mo uth once daily Saw Bowlegs 160 mg capsule Take 160 mg by mouth once daily. 0 02/22/2015 Active Comment on above: Take 160 mg by mouth once daily. Steve Bowlegs (20 sources) Start: 11-08-2020 End: 11-17-2022 take 1 capsule by mouth once daily Saw Bowlegs 160 mg capsule Discontinued 300 mg PO DAILY November 08, 2020 11:03am November 17, 2022 12:05pm SUPPLEMENT Start: 11-08-2020 End: 11-17-2022 take 300 mg by mouth once daily Saw Bowlegs Discontin ued 300 MG PO DAILY November 08, 2020 11:03am November 17, 2022 12:05pm Start: 11-08-2020 take 300 mg by mouth once melyssa y Saw Bowlegs Active 300 MG PO DAILY November 08, 2020 10:03am Start: 11-08-2020 take 300 mg by mouth once melyssa y Saw Bowlegs Active 300 MG PO DAILY November 08, 2020 11:03am Start: 11-08-2020 take 320 mg by mouth once melyssa y Saw Bowlegs Active 320 MG PO DAILY November 08, 2020 11:03am Start: 08-02-2020 End: 11-08-2020 take 1 capsule by mouth once daily Saw Bowlegs 160 mg capsule Discontinued 160 mg PO DAILY August 02, 2020 11:09am November 08, 2020 11:03am SUPPLEMENT Start: 08-02-2020 End: 11-08-2020 take 160 mg by mouth once daily Saw Bowlegs Discontin ued 160 MG PO DAILY August 02, 2020 10:09am November 08, 2020 10:03am Start: 08-02-2020 End: 11-08-2020 take 160 mg by mouth once daily Saw Bowlegs Discontin ued 160 MG PO DAILY August 02, 2020 11:09am November 08, 2020 11:03am Start: 03-24-2018 End: 08-02-2020 take 160 mg by mouth twice daily Saw Bowlegs Discontinued 160 MG PO TWICE A DAY March 24, 2018 11:35am August 02, 2020 11:11am Start: 03-24-2018 End: 08-02-2020 take 1 capsule by mouth twice daily Saw Bowlegs 160 mg capsule Discontinued 160 mg PO TWICE A DAY March 24, 2018 1:00am August 02, 2020 11:11am SUPPLEMENT Start: 03-24-2018 End: 08-02-2020 take 160 mg by mouth twice daily Saw Bowlegs Discontinued 160 MG PO TWICE A DAY March 24, 2018 12:00am August 02, 2020 10:11am Start: 03-24-2018 End: 08-02-2020 take 160 mg by mouth twice daily Saw Bowlegs Discontinued 160 MG PO TWICE A DAY March 24, 2018 1:00am August 02, 2020 11:11am Start: 01-09-2014 take 1 tablet by johny th twice daily GNP SAW PALMETTO 160 MG CAPS One tablet by mouth twice daily SAW FRANCISCOO (SERENOA REPENS) [id number] Shanna Gagnon valACYclovir 500 mg oral tablet (5 sources) Herpesvirus Nucleoside Analog DNA Polymerase Inhibitor, Herpes Simplex Virus Nucleoside Analog DNA Polymerase Inhibitor, Herpes Zoster Virus Nucleoside Analog DNA Polymerase Inhibitor Start: 03-23-2017 End: 03-24-2017 VALTREX 500 MG TABS as directed VALACYCLOVIR HCL [id number] John Herndon MD Vitamin B Complex (B Complex-Vitamin B12) [...] 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 10-25-2024 Chronic Administrative/social admission (20 sources) Patient encounter status; Translations: [Other specified counseling] Onset: 07-30-2021 07-30-2021 Episodic Anxiety disorders (20 sources) Mixed anxiety and [...] 06-02-2023 04-09-2021 Chronic Comment on above: per holter 04/04/21 Chronic kidney disease (20 sources) Chronic [...] congestive heart failure; Translations: [Heart failure, unspecified] Onset: 03-22-2025 Chronic Coronary atherosclerosis and other heart disease (20 sources) Coronary atherosclerosis; Translations: [Atherosclerotic heart disease of [place] coronary artery without angina pectoris] Onset: 01-22-2020 [...] deficiency anemia; Translations: [Iron deficiency anemia, unspecified] 12-19-2024 Episodic Deficiency and other anemia (2 sources) Deficiency and other anemia; Translations: [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)] Onset: 12-02-2023 Delirium, dementia, and amnestic and other cognitive disorders (7 sources) Senile asthenia; Translations: [Age-related physical debility] [...] Onset: 02-06-2014 Resolved: 03-23-2017 02-06-2014 Chronic Other aftercare (1 source) Encounter for palliative care; Translations: [Encounter for palliative care] Onset: 03-22-2025 Episodic Other and ill-defined heart disease (20 sources) [...] comorbidity present (HCC)] Onset: 03-27-2024 Chronic Other nutritional; endocrine; and metabolic disorders (1 source) Adult failure to thrive; Translations: [Adult failure to thrive] Onset: 03-22-2025 Episodic Other upper respiratory infections (2 sources) Acute upper respiratory infection; Translations: [Acute upper respiratory infection, unspecified] Episodic Parkinson`s disease (20 sources) Parkinson's disease; Translations: [Parkinson's disease] Onset: 09-17-2023 11-23-2022 Chronic Parkinson`s disease (6 sources) Parkinson`s disease; Translations: [Parkinson's disease, unspecified [...] (3 sources) Long-term drug therapy; Translations: [Other skilled nursing (current) drug therapy] Onset: 03-23-2017 03-23-2017 Unclassified [...] in remission; 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, [address] Calcium [Mass/Vol] 9.0 mg/dL Normal 7.6-11.0 [facility] Comment on above: Performed By: #### L 100.0100, L500.2500 ####[facility] [address] [place], [address] Chloride [Moles/Vol] 102 mmol/L Normal 98-108 [facility] Comment on above: Performed By: #### L 100.0100, L500.2500 ####[facility] [address] [place], [address] CO2 [Moles/Vol] 21.2 mmol/L Normal 21.0-32.0 [facility] Comment on above: Performed By: #### L 100.0100, L500.2500 ####[facility] [address] [place], [address] Creatinine [Mass/Vol] 1.64 mg/dL High 0.70-1.20 [facility] Comment on above: Performed By: #### L 100.0100, L500.2500 ####[facility] [address] [place], [address] ECRCL 43.46 ml/min Low 50-250 [facility] Comment on above: Performed By: #### L 100.0100, L500.2500 ####[facility] [address] [place], [address] GAP 13 Normal 5-15 [facility] Comment on above: Performed By: #### L 100.0100, L500.2500 ####[facility] [address] [place], [address] GFR/1.73 sq M.predicted among non-blacks MDRD (S/P/Bld) [Vol rate/Area] 41 mL/min/{1.73_m2} Low >60 [facility] Comment on above: Result Comment: mL/m in/1.73m2 CKD-EPI Creatinine Equation (2020) Performed By: #### L 100.0100, L500.2500 ####[facility] [address] [place], [address] Glucose [Mass/Vol] 169 mg/dL High 70-99 [facility] Comment on above: Performed By: #### L 100.0100, L500.2500 ####[facility] [address] [place], [address] Potassium [Moles/Vol] 4.3 mmol/L Normal 3.3-5.1 [facility] Comment on above: Performed By: #### L 100.0100, L500.2500 ####[facility] [address] [place], [address] Sodium [Moles/Vol] 136 mmol/L Normal 133-145 [facility] Comment on above: Performed By: #### L 100.0100, L500.2500 ####[facility] [address] [place], [address] Urea nitrogen [Mass/Vol] 28 mg/dL High 4-19 [facility] Comment on above: Performed By: #### L 100.0100, L500.2500 ####[facility] [address] [place], [address] CBC W/Diff, Automatedon 11-1 Absolute Lymph 0.89 X10 3/uL Normal 0.83-4.51 [facility] Comment on above: Performed By: #### L 100.0100, L500.2500 ####[facility] [address] [place], [address] Absolute Neut 12.4 X10 3/uL High 2.0-7.7 [facility] Comment on above: Performed By: #### L 100.0100, L500.2500 ####[facility] [address] [place], [address] Basophils/100 WBC (Bld) 0.3 % Normal 0-1 [facility] Comment on above: Performed By: #### L 100.0100, L500.2500 ####[facility] [address] [place], [address] Eosinophils/100 WBC (Bld) 0.2 % Normal 0-5 [facility] Comment on above: Performed By: #### L 100.0100, L500.2500 ####[facility] [address] [place], [address] Erythrocyte distribution width (RBC) [Ratio] 14.6 % Normal 11.6-14.6 [facility] Comment on above: Performed By: #### L 100.0100, L500.2500 ####[facility] [address] [place], [address] Hematocrit (Bld) [Volume fraction] 29.9 % Low 40-54 [facility] Comment on above: Performed By: #### L 100.0100, L500.2500 ####[facility] [address] [place], [address] Hemoglobin (Bld) [Mass/Vol] 10.0 g/dL Low 13.0-16.5 [facility] Comment on above: Performed By: #### L 100.0100, L500.2500 ####[facility] [address] [place], [address] IG% 0.600 Normal 0.0-0.9 [facility] Comment on above: Result Comment: IG% - Immature Granulocytes (promyelocytes, myelocytes andmetamyelocytes) > 1% indicates that a LEFT SHIFT is Present. Performed By: #### L 100.0100, L500.2500 ####[facility] [address] [place], [address] Lymphocytes/100 WBC (Bld) 6.2 % Low 19-41 [facility] Comment on above: Performed By: #### L 100.0100, L500.2500 ####[facility] [address] [place], [address] MCH (RBC) [Entitic mass] 29.7 pg Normal 27.0-32.0 [facility] Comment on above: Performed By: #### L 100.0100, L500.2500 ####[facility] [address] [place], [address] MCHC (RBC) [Mass/Vol] 33.4 g/dL Normal 32-36 [facility] Comment on above: Performed By: #### L 100.0100, L500.2500 ####[facility] [address] [place], [address] MCV (RBC) [Entitic vol] 88.7 fL Normal 80-94 [facility] Comment on above: Performed By: #### L 100.0100, L500.2500 ####[facility] [address] [place], [address] Monocytes/100 WBC (Bld) 6.8 % Normal 0-10 [facility] Comment on above: Performed By: #### L 100.0100, L500.2500 ####[facility] [address] [place], [address] Neutrophils/100 WBC (Bld) 85.9 % High 47-70 [facility] Comment on above: Performed By: #### L 100.0100, L500.2500 ####[facility] [address] [place], [address] Nucleated RBC (Bld) [#/Vol] 0 10*3/uL Normal 0-5 [facility] Comment on above: Performed By: #### L 100.0100, L500.2500 ####[facility] [address] [place], [address] Platelet mean volume (Bld) [Entitic vol] 11.5 fL Normal 6.2-12.0 [facility] Comment on above: Performed By: #### L 100.0100, L500.2500 ####[facility] [address] [place], [address] Platelets (Bld) [#/Vol] 193 10*3/uL Normal 150-450 [facility] Comment on above: Performed By: #### L 100.0100, L500.2500 ####[facility] [address] [place], [address] RBC (Bld) [#/Vol] 3.37 10*6/uL Low 4.6-6.2 [facility] Comment on above: Performed By: #### L 100.0100, L500.2500 ####[facility] [address] [place], [address] RDW SD 47.1 fl High 35.1-43.9 [facility] Comment on above: Performed By: #### L 100.0100, L500.2500 ####[facility] [address] [place], [address] WBC (Bld) [#/Vol] 14.4 10*3/uL High 4.4-11.0 [facility] Comment on above: Performed By: #### L 100.0100, L500.2500 ####[facility] [address] [place], [address] Bedside Glucoseon 03-21-2025 FINGERSTICK GLU 163 mg/dL High 74-106 [facility] Comment on above: Result Comment: EARNESTINE LOPEZ OF PATIENT CARE PER NURSING PROTOCOL Performed By: #### L 501.080 ####[facility] [address] [place], [address] FINGERSTICK GLU 174 mg/dL High 74-106 [facility] Comment on above: Result Comment: EARNESTINE GEMENT OF PATIENT CARE PER NURSING PROTOCOL Performed By: #### L 501.080 ####[facility] [address] [place], [address] FINGERSTICK GLU 163 mg/dL High 74-106 [facility] Comment on above: Result Comment: EARNESTINE GEMENT OF PATIENT CARE PER NURSING PROTOCOL Performed By: #### L 501.080 ####[facility] [address] [place], [address] CBC W/Diff, Automatedon 11-1 2-2024 Absolute Lymph 0.62 X10 3/uL Low 0.83-4.51 [facility] Comment on above: Performed By: #### L 100.0100, L500.4100, L500.4050 ####[facility] [address] [place], [address] Absolute Neut 13.2 X10 3/uL High 2.0-7.7 [facility] Comment on above: Performed By: #### L 100.0100, L500.4100, L500.4050 ####[facility] [address] [place], [address] Basophils/100 WBC (Bld) 0.2 % Normal 0-1 [facility] Comment on above: Performed By: #### L 100.0100, L500.4100, L500.4050 ####[facility] [address] [place], [address] Eosinophils/100 WBC (Bld) 0.2 % Normal 0-5 [facility] Comment on above: Performed By: #### L 100.0100, L500.4100, L500.4050 ####[facility] [address] [place], [address] Erythrocyte distribution width (RBC) [Ratio] 14.4 % Normal 11.6-14.6 [facility] Comment on above: Performed By: #### L 100.0100, L500.4100, L500.4050 ####[facility] [address] [place], [address] Hematocrit (Bld) [Volume fraction] 28.2 % Low 40-54 [facility] Comment on above: Performed By: #### L 100.0100, L500.4100, L500.4050 ####[facility] [address] [place], [address] Hemoglobin (Bld) [Mass/Vol] 9.5 g/dL Low 13.0-16.5 [facility] Comment on above: Performed By: #### L 100.0100, L500.4100, L500.4050 ####[facility] [address] [place], [address] IG% 0.700 Normal 0.0-0.9 [facility] Comment on above: Result Comment: IG% - Immature Granulocytes (promyelocytes, myelocytes andmetamyelocytes) > 1% indicates that a LEFT SHIFT is Present. Performed By: #### L 100.0100, L500.4100, L500.4050 ####[facility] [address] [place], [address] Lymphocytes/100 WBC (Bld) 4.2 % Low 19-41 [facility] Comment on above: Performed By: #### L 100.0100, L500.4100, L500.4050 ####[facility] [address] [place], [address] MCH (RBC) [Entitic mass] 29.9 pg Normal 27.0-32.0 [facility] Comment on above: Performed By: #### L 100.0100, L500.4100, L500.4050 ####[facility] [address] [place], [address] MCHC (RBC) [Mass/Vol] 33.7 g/dL Normal 32-36 [facility] Comment on above: Performed By: #### L 100.0100, L500.4100, L500.4050 ####[facility] [address] [place], [address] MCV (RBC) [Entitic vol] 88.7 fL Normal 80-94 [facility] Comment on above: Performed By: #### L 100.0100, L500.4100, L500.4050 ####[facility] [address] [place], [address] Monocytes/100 WBC (Bld) 5.4 % Normal 0-10 [facility] Comment on above: Performed By: #### L 100.0100, L500.4100, L500.4050 ####[facility] [address] [place], [address] Neutrophils/100 WBC (Bld) 89.3 % High 47-70 [facility] Comment on above: Performed By: #### L 100.0100, L500.4100, L500.4050 ####[facility] [address] [place], [address] Nucleated RBC (Bld) [#/Vol] 0 10*3/uL Normal 0-5 [facility] Comment on above: Performed By: #### L 100.0100, L500.4100, L500.4050 ####[facility] [address] [place], [address] Platelet mean volume (Bld) [Entitic vol] 10.6 fL Normal 6.2-12.0 [facility] Comment on above: Performed By: #### L 100.0100, L500.4100, L500.4050 ####[facility] [address] [place], [address] Platelets (Bld) [#/Vol] 210 10*3/uL Normal 150-450 [facility] Comment on above: Performed By: #### L 100.0100, L500.4100, L500.4050 ####[facility] [address] [place], [address] RBC (Bld) [#/Vol] 3.18 10*6/uL Low 4.6-6.2 [facility] Comment on above: Performed By: #### L 100.0100, L500.4100, L500.4050 ####[facility] [address] [place], [address] RDW SD 46.9 fl High 35.1-43.9 [facility] Comment on above: Performed By: #### L 100.0100, L500.4100, L500.4050 ####[facility] [address] [place], [address] WBC (Bld) [#/Vol] 14.8 10*3/uL High 4.4-11.0 [facility] Comment on above: Performed By: #### L 100.0100, L500.4100, L500.4050 ####[facility] [address] [place], [address] Chest 1 View (Portable)on Chest 1 View (Portable) Normal [facility] Comprehensive Metabolic Prof ilon 03-21-2025 Albumin [Mass/Vol] 3.0 g/dL Low 3.4-4.8 [facility] Comment on above: Performed By: #### L 100.0100, L500.4100, L500.4050 ####[facility] [address] [place], [address] Albumin/Globulin [Mass ratio] 1.0 {ratio} Normal 0.9-2.4 [facility] Comment on above: Performed By: #### L 100.0100, L500.4100, L500.4050 ####[facility] [address] [place], [address] ALK PHOS 48 U/L Normal 40-129 [facility] Comment on above: Performed By: #### L 100.0100, L500.4100, L500.4050 ####[facility] [address] [place], [address] ALT [Catalytic activity/Vol] U/L Normal <=46 [facility] Comment on above: Performed By: #### L 100.0100, L500.4100, L500.4050 ####[facility] [address] [place], [address] AST [Catalytic activity/Vol] 10 U/L Normal <=37 [facility] Comment on above: Performed By: #### L 100.0100, L500.4100, L500.4050 ####[facility] [address] [place], [address] Bilirubin [Mass/Vol] 0.62 mg/dL Normal 0.00-1.30 [facility] Comment on above: Performed By: #### L 100.0100, L500.4100, L500.4050 ####[facility] [address] [place], [address] BUN/CRE 16.9 RATIO Normal 10-20 [facility] Comment on above: Performed By: #### L 100.0100, L500.4100, L500.4050 ####[facility] [address] [place], [address] Calcium [Mass/Vol] 8.8 mg/dL Normal 7.6-11.0 [facility] Comment on above: Performed By: #### L 100.0100, L500.4100, L500.4050 ####[facility] [address] [place], [address] Chloride [Moles/Vol] 102 mmol/L Normal 98-108 [facility] Comment on above: Performed By: #### L 100.0100, L500.4100, L500.4050 ####[facility] [address] [place], [address] CO2 [Moles/Vol] 24.0 mmol/L Normal 21.0-32.0 [facility] Comment on above: Performed By: #### L 100.0100, L500.4100, L500.4050 ####[facility] [address] [place], [address] Creatinine [Mass/Vol] 1.69 mg/dL High 0.70-1.20 [facility] Comment on above: Performed By: #### L 100.0100, L500.4100, L500.4050 ####[facility] [address] [place], [address] ECRCL 42.40 ml/min Low 50-250 [facility] Comment on above: Performed By: #### L 100.0100, L500.4100, L500.4050 ####[facility] [address] [place], [address] GAP 10 Normal 5-15 [facility] Comment on above: Performed By: #### L 100.0100, L500.4100, L500.4050 ####[facility] [address] [place], [address] GFR/1.73 sq M.predicted among non-blacks MDRD (S/P/Bld) [Vol rate/Area] 40 mL/min/{1.73_m2} Low >60 [facility] Comment on above: Result Comment: mL/m in/1.73m2 CKD-EPI Creatinine Equation (2020) Performed By: #### L 100.0100, L500.4100, L500.4050 ####[facility] [address] [place], [address] Globulin (S) [Mass/Vol] 3.1 g/dL Normal 2.2-4.2 [facility] Comment on above: Performed By: #### L 100.0100, L500.4100, L500.4050 ####[facility] [address] [place], [address] Glucose [Mass/Vol] 180 mg/dL High 70-99 [facility] Comment on above: Performed By: #### L 100.0100, L500.4100, L500.4050 ####[facility] [address] [place], [address] Potassium [Moles/Vol] 4.6 mmol/L Normal 3.3-5.1 [facility] Comment on above: Performed By: #### L 100.0100, L500.4100, L500.4050 ####[facility] [address] [place], [address] Sodium [Moles/Vol] 136 mmol/L Normal 133-145 [facility] Comment on above: Performed By: #### L 100.0100, L500.4100, L500.4050 ####[facility] [address] [place], [address] T PROT 6.1 g/dL Normal 5.9-8.4 [facility] Comment on above: Performed By: #### L 100.0100, L500.4100, L500.4050 ####[facility] [address] [place], [address] Urea nitrogen [Mass/Vol] 29 mg/dL High 4-19 [facility] Comment on above: Performed By: #### L 100.0100, L500.4100, L500.4050 ####[facility] [address] [place], [address] Lipid Profileon 03-21-2025 CHOL:HDL 2.01 Normal [facility] Comment on above: Performed By: #### L 100.0100, L500.4100, L500.4050 ####[facility] [address] [place], [address] Cholesterol [Mass/Vol] 83 mg/dL Normal <=200 [facility] Comment on above: Result Comment: Chol esterol level, Desirable <200 mg/dLBorderline high cholesterol 200-239 mg/dLHigh cholesterol >=240 mg/dLRecommendations of the NCEP Adult Treatment Panel for thefollowing risk-cutoff thresholds for the [place] [facility]. Performed By: #### L 100.0100, L500.4100, L500.4050 ####[facility] [address] [place], [address] Cholesterol in HDL [Mass/Vol] 41 mg/dL Normal [facility] Comment on above: Result Comment: Nuvia onal Cholesterol Education Program (NCEP) guidelines:<40 mg/dL: Low HDL-cholesterol (major risk factor for CHD)>= 60 mg/dL: High HDL-cholesterol (negative risk factor forCHD)HDL-cholesterol is affected by a number of factors, e.g.smoking, exercise, hormones, sex and age. Performed By: #### L 100.0100, L500.4100, L500.4050 ####[facility] [address] [place], [address] Cholesterol in LDL [Mass/Vol] 24 mg/dL Normal [facility] Comment on above: Result Comment: Bord dhqepn=293-621 mg/dL Higher Lnnm=772 mg/dL or greaterSampson Equation 2020 for LDL-C Performed By: #### L 100.0100, L500.4100, L500.4050 ####[facility] [address] [place], [address] Cholesterol in VLDL [Mass/Vol] 18 mg/dL Normal 5-40 [facility] Comment on above: Performed By: #### L 100.0100, L500.4100, L500.4050 ####[facility] [address] [place], [address] Triglyceride [Mass/Vol] 89 mg/dL Normal [facility] Comment on above: Result Comment: The drugs N-Acetylcysteine and Metamizole may falselydepress this assay.Normal range: <150 mg/dLBorderline High: 150-199 mg/dLHigh: 200-499 mg/dLVery High: >500 mg/dL Performed By: #### L 100.0100, L500.4100, L500.4050 ####[facility] [address] [place], [address] MR/CON.PCM.PAon 03-21-2025 MR/CON.PCM.PA Normal [facility] Modified Barium Swallow Stud yon 03-21-2025 Modified Barium Swallow Study Normal [facility] 12 Lead EKGon 03-20-2025 12 Lead EKG Normal [facility] 12 Lead EKG Normal [facility] Basic Metabolic Profile (BMP )on 03-20-2025 BUN/CRE 15.0 RATIO Normal 10-20 [facility] Comment on above: Performed By: #### L 100.0100, L501.4021, L500.2500 ####[facility] [address] [place], [address] Calcium [Mass/Vol] 9.0 mg/dL Normal 7.6-11.0 [facility] Comment on above: Performed By: #### L 100.0100, L501.4021, L500.2500 ####[facility] [address] [place], [address] Chloride [Moles/Vol] 100 mmol/L Normal 98-108 [facility] Comment on above: Performed By: #### L 100.0100, L501.4021, L500.2500 ####[facility] [address] [place], [address] CO2 [Moles/Vol] 26.1 mmol/L Normal 21.0-32.0 [facility] Comment on above: Performed By: #### L 100.0100, L501.4021, L500.2500 ####[facility] [address] [place], [address] Creatinine [Mass/Vol] 1.86 mg/dL High 0.70-1.20 [facility] Comment on above: Performed By: #### L 100.0100, L501.4021, L500.2500 ####[facility] [address] [place], [address] ECRCL 39.22 ml/min Low 50-250 [facility] Comment on above: Performed By: #### L 100.0100, L501.4021, L500.2500 ####[facility] [address] [place], [address] GAP 10 Normal 5-15 [facility] Comment on above: Performed By: #### L 100.0100, L501.4021, L500.2500 ####[facility] [address] [place], [address] GFR/1.73 sq M.predicted among non-blacks MDRD (S/P/Bld) [Vol rate/Area] 35 mL/min/{1.73_m2} Low >60 [facility] Comment on above: Result Comment: mL/m in/1.73m2 CKD-EPI Creatinine Equation (2020) Performed By: #### L 100.0100, L501.4021, L500.2500 ####[facility] [address] [place], [address] Glucose [Mass/Vol] 201 mg/dL High 70-99 [facility] Comment on above: Performed By: #### L 100.0100, L501.4021, L500.2500 ####[facility] [address] [place], [address] Potassium [Moles/Vol] 5.1 mmol/L Normal 3.3-5.1 [facility] Comment on above: Performed By: #### L 100.0100, L501.4021, L500.2500 ####[facility] [address] [place], [address] Sodium [Moles/Vol] 136 mmol/L Normal 133-145 [facility] Comment on above: Performed By: #### L 100.0100, L501.4021, L500.2500 ####[facility] [address] [place], [address] Urea nitrogen [Mass/Vol] 28 mg/dL High 4-19 [facility] Comment on above: Performed By: #### L 100.0100, L501.4021, L500.2500 ####[facility] [address] [place], [address] Bedside Glucoseon 03-20-2025 FINGERSTICK GLU 162 mg/dL High 74-106 [facility] Comment on above: Result Comment: EARNESTINE LOPEZ OF PATIENT CARE PER NURSING PROTOCOL Performed By: #### L 501.080 ####[facility] [address] [place], [address] Brain/Head without Contrasto n 03-20-2025 Brain/Head without Contrast Normal [facility] CBC W/Diff, Automatedon 03-10 Absolute Lymph 0.67 X10 3/uL Low 0.83-4.51 [facility] Comment on above: Performed By: #### L 100.0100, L501.4021, L500.2500 ####[facility] [address] [place], [address] Absolute Neut 16.9 X10 3/uL High 2.0-7.7 [facility] Comment on above: Performed By: #### L 100.0100, L501.4021, L500.2500 ####[facility] [address] [place], [address] Basophils/100 WBC (Bld) 0.3 % Normal 0-1 [facility] Comment on above: Performed By: #### L 100.0100, L501.4021, L500.2500 ####[facility] [address] [place], [address] Eosinophils/100 WBC (Bld) 0.2 % Normal 0-5 [facility] Comment on above: Performed By: #### L 100.0100, L501.4021, L500.2500 ####[facility] [address] [place], [address] Erythrocyte distribution width (RBC) [Ratio] 14.6 % Normal 11.6-14.6 [facility] Comment on above: Performed By: #### L 100.0100, L501.4021, L500.2500 ####[facility] [address] [place], [address] Hematocrit (Bld) [Volume fraction] 31.0 % Low 40-54 [facility] Comment on above: Performed By: #### L 100.0100, L501.4021, L500.2500 ####[facility] [address] [place], [address] Hemoglobin (Bld) [Mass/Vol] 10.3 g/dL Low 13.0-16.5 [facility] Comment on above: Performed By: #### L 100.0100, L501.4021, L500.2500 ####[facility] [address] [place], [address] IG% 0.600 Normal 0.0-0.9 [facility] Comment on above: Result Comment: IG% - Immature Granulocytes (promyelocytes, myelocytes andmetamyelocytes) > 1% indicates that a LEFT SHIFT is Present. Performed By: #### L 100.0100, L501.4021, L500.2500 ####[facility] [address] [place], [address] Lymphocytes/100 WBC (Bld) 3.5 % Low 19-41 [facility] Comment on above: Performed By: #### L 100.0100, L501.4021, L500.2500 ####[facility] [address] [place], [address] MCH (RBC) [Entitic mass] 29.5 pg Normal 27.0-32.0 [facility] Comment on above: Performed By: #### L 100.0100, L501.4021, L500.2500 ####[facility] [address] [place], [address] MCHC (RBC) [Mass/Vol] 33.2 g/dL Normal 32-36 [facility] Comment on above: Performed By: #### L 100.0100, L501.4021, L500.2500 ####[facility] [address] [place], [address] MCV (RBC) [Entitic vol] 88.8 fL Normal 80-94 [facility] Comment on above: Performed By: #### L 100.0100, L501.4021, L500.2500 ####[facility] [address] [place], [address] Monocytes/100 WBC (Bld) 6.3 % Normal 0-10 [facility] Comment on above: Performed By: #### L 100.0100, L501.4021, L500.2500 ####[facility] [address] [place], [address] Neutrophils/100 WBC (Bld) 89.1 % High 47-70 [facility] Comment on above: Performed By: #### L 100.0100, L501.4021, L500.2500 ####[facility] [address] [place], [address] Nucleated RBC (Bld) [#/Vol] 0 10*3/uL Normal 0-5 [facility] Comment on above: Performed By: #### L 100.0100, L501.4021, L500.2500 ####[facility] [address] [place], [address] Platelet mean volume (Bld) [Entitic vol] 10.4 fL Normal 6.2-12.0 [facility] Comment on above: Performed By: #### L 100.0100, L501.4021, L500.2500 ####[facility] [address] [place], [address] Platelets (Bld) [#/Vol] 202 10*3/uL Normal 150-450 [facility] Comment on above: Performed By: #### L 100.0100, L501.4021, L500.2500 ####[facility] [address] [place], [address] RBC (Bld) [#/Vol] 3.49 10*6/uL Low 4.6-6.2 [facility] Comment on above: Performed By: #### L 100.0100, L501.4021, L500.2500 ####[facility] [address] [place], [address] RDW SD 46.6 fl High 35.1-43.9 [facility] Comment on above: Performed By: #### L 100.0100, L501.4021, L500.2500 ####[facility] [address] [place], [address] WBC (Bld) [#/Vol] 19.0 10*3/uL High 4.4-11.0 [facility] Comment on above: Performed By: #### L 100.0100, L501.4021, L500.2500 ####[facility] [address] [place], [address] Chest PA and Lateralon 03-20 Chest PA and Lateral Normal [facility] Emergency Department Summary on 03-20-2025 Emergency Department Summary Normal [facility] H AND P Exam - Hospitaliston 03-20-2025 H&P Exam - Hospitalist Normal [facility] L501.4021on 03-20-2025 Trop T High Sen 96 ng/L Invalid Interpretation Code <=22 [facility] Comment on above: Result Comment: Crit ical Result(s) Called FOSTER at: 1743 by:JOSÉ??Results read back by same. Performed By: #### L 100.0100, L501.4021, L500.2500 ####[facility] [address] [place], [address] L509.7001on 03-20-2025 Procalcitonin 0.14 ng/mL High <=0.10 [facility] Comment on above: Result Comment: Inte rpretation:<0.10-0.25 ng/mL: Antibiotic therapy discouraged. Bacterialinfection unlikely.0.25-0.50 ng/mL: Antibiotic therapy encouraged. Bacterialinfection possible.>0.50 ng/mL: Antibiotic therapy strongly encouraged.Suggestive of presence of bacterial infection.PCT should always be interpreted in the clinical context ofthe patient. Therefore, clinicians should use the PCTresults in conjunction with other laboratory findings andclinical signs of the patient. Performed By: #### L 509.7001 ####[facility] [address] [place], [address] Lactic Acidon 03-20-2025 Lactate [Moles/Vol] 1.1 mmol/L Normal 0.0-2.0 [facility] Comment on above: Order Comment: Y Performed By: #### L 503.6005 ####[facility] [address] [place], [address] M100.678on 03-20-2025 M100.678 Pending SARS-CoV-2 (COVID 19) Negative INFLUENZA A Negative INFLUENZA B Negative RSV PCR Negative Normal [facility] Comment on above: Performed By: #### M 100.678, L400.0001 ####[facility] [address] [place], [address] Magnesiumon 03-20-2025 Magnesium [Mass/Vol] 1.5 mg/dL Normal 1.5-2.2 [facility] Comment on above: Order Comment: Comme nts: may add to ED labs Performed By: #### L 501.5202 ####[facility] [address] [place], [address] Pelvis 1 or 2 Viewson 2024 Pelvis 1 or 2 Views Normal [facility] Spine Cervical without Contr ason 03-20-2025 Spine Cervical without Contras Normal [facility] Troponin T HS 2 HRon 025 Trop T High Sen 107 ng/L Invalid Interpretation Code <=22 [facility] Comment on above: Result Comment: Crit ical Result(s) Called ALAMMERS at: 2040 by:BWORKMAN??Results read back by same. Performed By: #### L 499.0042 ####[facility] [address] [place], [address] Troponin T HS 4 HRon 025 Trop T High Sen 101 ng/L Invalid Interpretation Code <=22 [facility] Comment on above: Result Comment: Crit ical Result(s) Called MMARTIN at: 2109 by:BWORKMAN??Results read back by same. Performed By: #### L 499.0043 ####[facility] [address] [place], [address] Urinalysis, Completeon 03-20 EPI,SQUAMOUS 0-5 SEEN Normal 0-5 [facility] Comment on above: Order Comment: CLEAN CATCH Performed By: #### M 100.678, L400.0001 ####[facility] [address] [place], [address] RBC 0-5 SEEN Normal 0-5 [facility] Comment on above: Order Comment: CLEAN CATCH Performed By: #### M 100.678, L400.0001 ####[facility] [address] [place], [address] WBC 0-5 SEEN Normal 0-5 [facility] Comment on above: Order Comment: CLEAN CATCH Performed By: #### M 100.678, L400.0001 ####[facility] [address] [place], [address] BACTERIA 0 SEEN Normal None Seen [facility] Comment on above: Order Comment: CLEAN CATCH Performed By: #### M 100.678, L400.0001 ####[facility] [address] [place], [address] Mucus Ql (Urine sed) 0 SEEN Normal [facility] Comment on above: Order Comment: CLEAN CATCH Performed By: #### M 100.678, L400.0001 ####[facility] [address] [place], [address] Urine Cultureon 03-09-2025 URC Below infection leve l. Mixed Gram Positive Organisms [place] Count 1000-10,000 MIXC Mixed contaminants. Submit a new specimen if indicated. Normal [facility] Comment on above: Performed By: #### L 500.3600, M100.2200, L509.1000, L400.0001 ####[facility] [address] [place], [address] PTHINon 03-07-2025 PTH 50 pg/mL Normal 11-61 [facility] Comment on above: Performed By: #### L 500.3600, M100.2200, L509.1000, L400.0001 ####[facility] [address] [place], [address] Renal Profileon 03-07-2025 Albumin [Mass/Vol] 3.5 g/dL Normal 3.4-4.8 [facility] Comment on above: Performed By: #### L 500.3600, M100.2200, L509.1000, L400.0001 ####[facility] [address] [place], [address] BUN/CRE 14.4 RATIO Normal 10-20 [facility] Comment on above: Performed By: #### L 500.3600, M100.2200, L509.1000, L400.0001 ####[facility] [address] [place], [address] Calcium [Mass/Vol] 8.9 mg/dL Normal 7.6-11.0 [facility] Comment on above: Performed By: #### L 500.3600, M100.2200, L509.1000, L400.0001 ####[facility] [address] [place], [address] Chloride [Moles/Vol] 103 mmol/L Normal 98-108 [facility] Comment on above: Performed By: #### L 500.3600, M100.2200, L509.1000, L400.0001 ####[facility] [address] [place], [address] CO2 [Moles/Vol] 23.8 mmol/L Normal 21.0-32.0 [facility] Comment on above: Performed By: #### L 500.3600, M100.2200, L509.1000, L400.0001 ####[facility] [address] [place], [address] Creatinine [Mass/Vol] 1.57 mg/dL High 0.70-1.20 [facility] Comment on above: Performed By: #### L 500.3600, M100.2200, L509.1000, L400.0001 ####[facility] [address] [place], [address] GAP 11 Normal 5-15 [facility] Comment on above: Performed By: #### L 500.3600, M100.2200, L509.1000, L400.0001 ####[facility] [address] [place], [address] GFR/1.73 sq M.predicted among non-blacks MDRD (S/P/Bld) [Vol rate/Area] 43 mL/min/{1.73_m2} Low >60 [facility] Comment on above: Result Comment: mL/m in/1.73m2 CKD-EPI Creatinine Equation (2020) Performed By: #### L 500.3600, M100.2200, L509.1000, L400.0001 ####[facility] [address] [place], [address] Glucose [Mass/Vol] 221 mg/dL High 70-99 [facility] Comment on above: Performed By: #### L 500.3600, M100.2200, L509.1000, L400.0001 ####[facility] [address] [place], [address] Phosphate [Mass/Vol] 3.6 mg/dL Normal 2.7-4.5 [facility] Comment on above: Performed By: #### L 500.3600, M100.2200, L509.1000, L400.0001 ####[facility] [address] [place], [address] Potassium [Moles/Vol] 4.4 mmol/L Normal 3.3-5.1 [facility] Comment on above: Performed By: #### L 500.3600, M100.2200, L509.1000, L400.0001 ####[facility] [address] [place], [address] Sodium [Moles/Vol] 138 mmol/L Normal 133-145 [facility] Comment on above: Performed By: #### L 500.3600, M100.2200, L509.1000, L400.0001 ####[facility] [address] [place], [address] Urea nitrogen [Mass/Vol] 23 mg/dL High 4-19 [facility] Comment on above: Performed By: #### L 500.3600, M100.2200, L509.1000, L400.0001 ####[facility] [address] [place], [address] Urinalysis, Completeon 03-07 BACTERIA RARE Normal None Seen [facility] Comment on above: Order Comment: Urine , Random Performed By: #### L 500.3600, M100.2200, L509.1000, L400.0001 ####[facility] [address] [place], [address] EPI,SQUAMOUS 0-5 SEEN Normal 0-5 [facility] Comment on above: Order Comment: Urine , Random Performed By: #### L 500.3600, M100.2200, L509.1000, L400.0001 ####[facility] [address] [place], [address] WBC 0-5 SEEN Normal 0-5 [facility] Comment on above: Order Comment: Urine , Random Performed By: #### L 500.3600, M100.2200, L509.1000, L400.0001 ####[facility] [address] [place], [address] Mucus Ql (Urine sed) 0 SEEN Normal [facility] Comment on above: Order Comment: Urine , Random Performed By: #### L 500.3600, M100.2200, L509.1000, L400.0001 ####[facility] [address] [place], [address] RBC 0 SEEN Normal 0-5 [facility] Comment on above: Order Comment: Urine , Random Performed By: #### L 500.3600, M100.2200, L509.1000, L400.0001 ####[facility] [address] [place], [address] CNPNon 03-01-2025 CNPN Telephone (NEAGCLM) AXEL SERRANO ([id number]) 1940 M Date Time Provider Department 03/01/25 YEYO BAILEY NEAGCLM During your visit today, we recorded the following information about you: Yeyo Bailey APRN.CNP 03/01/2025 11:45 AM Signed Contacted the patient [...] concerns were addressed in detail. Yeyo Bailey APRN-[facility] Neurosurgery Nurse Practitioner [facility] 11:45 AM 03/01/2025 Allergies As of Date: 03/01/2025 Noted Allergy Reaction MAI INHIBITORS 12/16/2017 14 - Other: See Comments Comments: Hyperkalemia ATORVASTATIN 05/05/2017 17 - Myalgia PRAVASTATIN 03/24/2017 17 - Myalgia BJQZWWO-SDW-MAT REDUCTASE INHIBIT*02/16/2019 17 - Myalgia Date Reviewed: [...] body m (more content not included)... Normal [facility] CBC W Auto Differential pane l (Bld)on 02-26-2025 Basophils (Bld) [#/Vol] 0.04 10*3/uL Normal <0.11 [facility] Comment on above: Order Comment: Speci men Type: BLOOD SPECIMENOrdering Facility: [facility] Address: [address] [place] [address] Performed By: #### 5 7021-8 ####[facility] MILLWMILIA [id number] [place] [address] [place] Basophils/100 WBC (Bld) 0.4 % Normal [facility] Comment on above: Order Comment: Speci men Type: BLOOD SPECIMENOrdering Facility: [facility] Address: [address] [place] [address] Performed By: #### 5 7021-8 ####[facility] SPRINGSA [id number] [place] [address] [place] Differential cell count method Nom (Bld) Auto Normal [facility] Comment on above: Order Comment: Speci men Type: BLOOD SPECIMENOrdering Facility: [facility] Address: [address] [place] [address] Performed By: #### 5 7021-8 ####[facility] SPRINGSA [id number] [place] [address] [place] Eosinophils (Bld) [#/Vol] 0.41 10*3/uL Normal <0.46 [facility] Comment on above: Order Comment: Speci men Type: BLOOD SPECIMENOrdering Facility: [facility] Address: [address] [place] [address] Performed By: #### 5 7021-8 ####[facility] CENTERLIA [id number] [place] [address] [place] Eosinophils/100 WBC (Bld) 4.3 % Normal [facility] Comment on above: Order Comment: Speci men Type: BLOOD SPECIMENOrdering Facility: [facility] Address: [address] [place] [address] Performed By: #### 5 7021-8 ####[facility] JGNCTAINA [id number] [place] [address] [place] Erythrocyte distribution width (RBC) [Ratio] 14.4 % Normal 11.5-15.0 [facility] Comment on above: Order Comment: Speci men Type: BLOOD SPECIMENOrdering Facility: [facility] Address: [address] [place] [address] Performed By: #### 5 7021-8 ####[facility] ELLENBREMENKAVITALIMingo [id number] [place] [address] [place] Hematocrit (Bld) [Volume fraction] 33.6 % Low 39.0-51.0 [facility] Comment on above: Order Comment: Speci men Type: BLOOD SPECIMENOrdering Facility: [facility] Address: [address] [place] [address] Performed By: #### 5 7021-8 ####[facility] ELLENBREMENKAVITALIA [id number] [place] [address] [place] Hemoglobin (Bld) [Mass/Vol] 11.3 g/dL Low 13.0-17.0 [facility] Comment on above: Order Comment: Speci men Type: BLOOD SPECIMENOrdering Facility: [facility] Address: [address] [place] [address] Performed By: #### 5 7021-8 ####[facility] HOSPITALNCLIA [id number] [place] [address] [place] Immature granulocytes (Bld) [#/Vol] 0.06 10*3/uL Normal <0.10 [facility] Comment on above: Order Comment: Speci men Type: BLOOD SPECIMENOrdering Facility: [facility] Address: [address] [place], [place] [address] Performed By: #### 5 7021-8 ####[facility] HOSPITALNCLIA [id number] [place] [address] [place] [facility] Immature granulocytes/100 WBC (Bld) 0.6 % Normal [facility] Comment on above: Order Comment: Speci men Type: BLOOD SPECIMENOrdering Facility: [facility] Address: [address] [place] [address] Performed By: #### 5 7021-8 ####[facility]OSPITALNCLIA [id number] [place] [address] [place] Lymphocytes (Bld) [#/Vol] 1.11 10*3/uL Normal 1.00-4.00 [facility] Comment on above: Order Comment: Speci men Type: BLOOD SPECIMENOrdering Facility: [facility] Address: [address] [place] [address] Performed By: #### 5 7021-8 ####[facility] [id number] [place] [address] [place] Lymphocytes/100 WBC (Bld) 11.6 % Normal [facility] Comment on above: Order Comment: Speci men Type: BLOOD SPECIMENOrdering Facility: [facility] Address: [address] [place] [address] Performed By: #### 5 7021-8 ####[facility]SA [id number] [place] [address] [place] MCH (RBC) [Entitic mass] 29.7 pg Normal 26.0-34.0 [facility] Comment on above: Order Comment: Speci men Type: BLOOD SPECIMENOrdering Facility: [facility] Address: [address] [place] [address] Performed By: #### 5 7021-8 ####[facility]PITALNCK[facility] [id number] [place] [address] [place] MCHC (RBC) [Mass/Vol] 33.6 g/dL Normal 30.5-36.0 [facility] Comment on above: Order Comment: Speci men Type: BLOOD SPECIMENOrdering Facility: [facility] Address: [address] [place] [address] Performed By: #### 5 7021-8 ####[facility] ELLENSherryKAVITALIA [id number] [place] [address] [place] MCV (RBC) [Entitic vol] 88.2 fL Normal 80.0-100.0 [facility] Comment on above: Order Comment: Speci men Type: BLOOD SPECIMENOrdering Facility: [facility] Address: [address] [place] [address] Performed By: #### 5 7021-8 ####[facility] HOSPITALNCCOLTONA [id number] [place] [address] [place] Monocytes (Bld) [#/Vol] 0.59 10*3/uL Normal <0.87 [facility] Comment on above: Order Comment: Speci men Type: BLOOD SPECIMENOrdering Facility: [facility] Address: [address] [place] [address] Performed By: #### 5 7021-8 ####[facility] HOSPITALNCLIA [id number] [place] [address] [place] Monocytes/100 WBC (Bld) 6.2 % Normal [facility] Comment on above: Order Comment: Speci men Type: BLOOD SPECIMENOrdering Facility: [facility] Address: [address] [place] [address] Performed By: #### 5 7021-8 ####[facility] HOSPITALNCLIA [id number] [place] [address] [place] Neutrophils (Bld) [#/Vol] 7.33 10*3/uL Normal 1.45-7.50 [facility] Comment on above: Order Comment: Speci men Type: BLOOD SPECIMENOrdering Facility: [facility] Address: [address] [place] [address] Performed By: #### 5 7021-8 ####[facility] ELLENBREMENZENA [id number] [place] [address] [place] Neutrophils/100 WBC (Bld) 76.9 % Normal [facility] Comment on above: Order Comment: Speci men Type: BLOOD SPECIMENOrdering Facility: [facility] Address: [address] [place] [address] Performed By: #### 5 7021-8 ####[facility] [id number] [place] [address] [place] Nucleated RBC (Bld) [#/Vol] 10*3/uL Normal <0.01 [facility] Comment on above: Order Comment: Speci men Type: BLOOD SPECIMENOrdering Facility: [facility] Address: [address] [place] [address] Performed By: #### 5 7021-8 ####[facility] [id number] [place] [address] [place] Nucleated RBC/100 WBC (Bld) [Ratio] 0.0 /100 WBC Normal [facility] Comment on above: Order Comment: Speci men Type: BLOOD SPECIMENOrdering Facility: [facility] Address: [address] [place] [address] Performed By: #### 5 7021-8 ####[facility] [id number] [place] [address] [place] Platelet mean volume (Bld) [Entitic vol] 9.7 fL Normal 9.0-12.7 [facility] Comment on above: Order Comment: Speci men Type: BLOOD SPECIMENOrdering Facility: [facility] Address: [address] [place] [address] Performed By: #### 5 7021-8 ####[facility] ELLENSherryNCTAINA [id number] [place] [address] [place] Platelets (Bld) [#/Vol] 190 10*3/uL Normal 150-400 [facility] Comment on above: Order Comment: Speci men Type: BLOOD SPECIMENOrdering Facility: [facility] Address: [address] [place], [place] [address] Performed By: #### 5 7021-8 ####[facility] HOSPITALJAMAL [id number] [place] [address] [place] RBC (Bld) [#/Vol] 3.81 10*6/uL Low 4.20-6.00 [facility] Comment on above: Order Comment: Speci men Type: BLOOD SPECIMENOrdering Facility: [facility] Address: [address] [place] [address] Performed By: #### 5 7021-8 ####[facility]OSPITALNCLIA [id number] [place] [address] [place] WBC (Bld) [#/Vol] 9.54 10*3/uL Normal 3.70-11.00 [facility] Comment on above: Order Comment: Speci men Type: BLOOD SPECIMENOrdering Facility: [facility] Address: [address] [place], [place] [address] Performed By: #### 5 7021-8 ####[facility] CENTERTAINA [id number] [place] [address] [place] BRAIN WO IVCONon 02-27-20 CT BRAIN WO IVCON Normal [facility] CNOVon 01-30-2025 CNOV Normal [facility] CNPNon 01-26-2025 CNPN Normal [facility] CBC W Auto Differential pane l (Bld)on 01-24-2025 Basophils (Bld) [#/Vol] 0.04 10*3/uL Normal <0.11 [facility] Comment on above: Order Comment: Speci men Type: BLOOD SPECIMENOrdering Facility: [facility] Address: [address] [place] [address] Performed By: #### 5 7021-8 ####[facility] CENTERLIA [id number] [place] [address] [place] Basophils/100 WBC (Bld) 0.4 % Normal [facility] Comment on above: Order Comment: Speci men Type: BLOOD SPECIMENOrdering Facility: [facility] Address: [address] [place] [address] Performed By: #### 5 7021-8 ####[facility] CENTERLIA [id number] [place] [address] [place] Differential cell count method Nom (Bld) Auto Normal [facility] Comment on above: Order Comment: Speci men Type: BLOOD SPECIMENOrdering Facility: [facility] Address: [address] [place] [address] Performed By: #### 5 7021-8 ####[facility] SPRINGSA [id number] [place] [address] [place] Eosinophils (Bld) [#/Vol] 0.22 10*3/uL Normal <0.46 [facility] Comment on above: Order Comment: Speci men Type: BLOOD SPECIMENOrdering Facility: [facility] Address: [address] [place] [address] Performed By: #### 5 7021-8 ####[facility]SA [id number] [place] [address] [place] Eosinophils/100 WBC (Bld) 2.3 % Normal [facility] Comment on above: Order Comment: Speci men Type: BLOOD SPECIMENOrdering Facility: [facility] Address: [address] [place] [address] Performed By: #### 5 7021-8 ####[facility]OSPITALNCLIA [id number] [place] [address] [place] Erythrocyte distribution width (RBC) [Ratio] 14.6 % Normal 11.5-15.0 [facility] Comment on above: Order Comment: Speci men Type: BLOOD SPECIMENOrdering Facility: [facility] Address: [address] [place] [address] Performed By: #### 5 7021-8 ####[facility] [id number] [place] [address] [place] Hematocrit (Bld) [Volume fraction] 29.3 % Low 39.0-51.0 [facility] Comment on above: Order Comment: Speci men Type: BLOOD SPECIMENOrdering Facility: [facility] Address: [address] [place] [address] Performed By: #### 5 7021-8 ####[facility]PITALNCLIA [id number] [place] [address] [place] Hemoglobin (Bld) [Mass/Vol] 9.9 g/dL Low 13.0-17.0 [facility] Comment on above: Order Comment: Speci men Type: BLOOD SPECIMENOrdering Facility: [facility] Address: [address] [place] [address] Performed By: #### 5 7021-8 ####[facility] [id number] [place] [address] [place] Immature granulocytes (Bld) [#/Vol] 0.07 10*3/uL Normal <0.10 [facility] Comment on above: Order Comment: Speci men Type: BLOOD SPECIMENOrdering Facility: [facility] Address: [address] [place] [address] Performed By: #### 5 7021-8 ####[facility] HOSPITALNCLI [id number] [place] [address] [place] Immature granulocytes/100 WBC (Bld) 0.7 % Normal [facility] Comment on above: Order Comment: Speci men Type: BLOOD SPECIMENOrdering Facility: [facility] Address: [address] [place] [address] Performed By: #### 5 7021-8 ####[facility]PITALNCK[facility] [id number] [place] [address] [place] Lymphocytes (Bld) [#/Vol] 1.05 10*3/uL Normal 1.00-4.00 [facility] Comment on above: Order Comment: Speci men Type: BLOOD SPECIMENOrdering Facility: [facility] Address: [address] [place] [address] Performed By: #### 5 7021-8 ####[facility]ITALNCK[facility] [id number] [place] [address] [place] Lymphocytes/100 WBC (Bld) 11.0 % Normal [facility] Comment on above: Order Comment: Speci men Type: BLOOD SPECIMENOrdering Facility: [facility] Address: [address] [place] [address] Performed By: #### 5 7021-8 ####[facility] HOSPITALNCLI [id number] [place] [address] [place] MCH (RBC) [Entitic mass] 29.8 pg Normal 26.0-34.0 [facility] Comment on above: Order Comment: Speci men Type: BLOOD SPECIMENOrdering Facility: [facility] Address: [address] [place] [address] Performed By: #### 5 7021-8 ####[facility] HOSPITALNCLI [id number] [place] [address] [place] MCHC (RBC) [Mass/Vol] 33.8 g/dL Normal 30.5-36.0 [facility] Comment on above: Order Comment: Speci men Type: BLOOD SPECIMENOrdering Facility: [facility] Address: [address] [place] [address] Performed By: #### 5 7021-8 ####[facility] ELLENREYNA [id number] [place] [address] [place] MCV (RBC) [Entitic vol] 88.3 fL Normal 80.0-100.0 [facility] Comment on above: Order Comment: Speci men Type: BLOOD SPECIMENOrdering Facility: [facility] Address: [address] [place] [address] Performed By: #### 5 7021-8 ####[facility] [id number] [place] [address] [place] Monocytes (Bld) [#/Vol] 0.65 10*3/uL Normal <0.87 [facility] Comment on above: Order Comment: Speci men Type: BLOOD SPECIMENOrdering Facility: [facility] Address: [address] [place] [address] Performed By: #### 5 7021-8 ####[facility]OSPITALNCLIA [id number] [place] [address] [place] Monocytes/100 WBC (Bld) 6.8 % Normal [facility] Comment on above: Order Comment: Speci men Type: BLOOD SPECIMENOrdering Facility: [facility] Address: [address] [place] [address] Performed By: #### 5 7021-8 ####[facility]OSPITALNCLIA [id number] [place] [address] [place] Neutrophils (Bld) [#/Vol] 7.54 10*3/uL High 1.45-7.50 [facility] Comment on above: Order Comment: Speci men Type: BLOOD SPECIMENOrdering Facility: [facility] Address: [address] [place] [address] Performed By: #### 5 7021-8 ####[facility] ELLENWNCLIA [id number] [place] [address] [place] Neutrophils/100 WBC (Bld) 78.8 % Normal [facility] Comment on above: Order Comment: Speci men Type: BLOOD SPECIMENOrdering Facility: [facility] Address: [address] [place] [address] Performed By: #### 5 7021-8 ####[facility] HOSPITALKAVITALIA [id number] [place] [address] [place] Nucleated RBC (Bld) [#/Vol] 10*3/uL Normal <0.01 [facility] Comment on above: Order Comment: Speci men Type: BLOOD SPECIMENOrdering Facility: [facility] Address: [address] [place] [address] Performed By: #### 5 7021-8 ####[facility]SA [id number] [place] [address] [place] Nucleated RBC/100 WBC (Bld) [Ratio] 0.0 /100 WBC Normal [facility] Comment on above: Order Comment: Speci men Type: BLOOD SPECIMENOrdering Facility: [facility] Address: [address] [place] [address] Performed By: #### 5 7021-8 ####[facility] CENTERLIA [id number] [place] [address] [place] Platelet mean volume (Bld) [Entitic vol] 9.8 fL Normal 9.0-12.7 [facility] Comment on above: Order Comment: Speci men Type: BLOOD SPECIMENOrdering Facility: [facility] Address: [address] [place] [address] Performed By: #### 5 7021-8 ####[facility] CENTERLIA [id number] [place] [address] [place] Platelets (Bld) [#/Vol] 201 10*3/uL Normal 150-400 [facility] Comment on above: Order Comment: Speci men Type: BLOOD SPECIMENOrdering Facility: [facility] Address: [address] [place] [address] Performed By: #### 5 7021-8 ####[facility] ELLENREYNA [id number] [place] [address] [place] RBC (Bld) [#/Vol] 3.32 10*6/uL Low 4.20-6.00 [facility] Comment on above: Order Comment: Speci men Type: BLOOD SPECIMENOrdering Facility: [facility] Address: [address] [place] [address] Performed By: #### 5 7021-8 ####[facility] CHILDRENSherryNCCOLTONA [id number] [place] [address] [place] WBC (Bld) [#/Vol] 9.57 10*3/uL Normal 3.70-11.00 [facility] Comment on above: Order Comment: Speci men Type: BLOOD SPECIMENOrdering Facility: [facility] Address: [address] [place] [address] Performed By: #### 5 7021-8 ####[facility] CHILDRENDEBA [id number] [place] [id number] [place] CNOVon 01-03-2025 CNOV Normal [facility] CNPNon 12-27-2024 CNPN Normal [facility] Basic metabolic 2000 panelon 12-26-2024 Anion gap [Moles/Vol] 14 mmol/L Normal 8-15 [facility] Comment on above: Order Comment: Speci men Type: BLOOD SPECIMENOrdering Facility: [facility] Address: [address] [place] [address] Performed By: #### 2 4321-2 ####[facility] GERTRUDE [id number] [place] [address] [place] Calcium [Mass/Vol] 9.2 mg/dL Normal 8.5-10.2 [facility] Comment on above: Order Comment: Speci men Type: BLOOD SPECIMENOrdering Facility: [facility] Address: [address] [place] [address] Performed By: #### 2 4321-2 ####[facility] MILLWNCLIA [id number] [place] [address] [place] Chloride [Moles/Vol] 101 mmol/L Normal 98-107 [facility] Comment on above: Order Comment: Speci men Type: BLOOD SPECIMENOrdering Facility: [facility] Address: [address] [place] [address] Performed By: #### 2 4321-2 ####[facility] CENTERLIA [id number] [place] [address] [place] CO2 [Moles/Vol] 22 mmol/L Normal 22-30 [facility] Comment on above: Order Comment: Speci men Type: BLOOD SPECIMENOrdering Facility: [facility] Address: [address] [place] [address] Performed By: #### 2 4321-2 ####[facility]ENWNCLIA [id number] [place] [address] [place] Creatinine [Mass/Vol] 1.96 mg/dL High 0.73-1.22 [facility] Comment on above: Order Comment: Speci men Type: BLOOD SPECIMENOrdering Facility: [facility] Address: [address] [place] [address] Performed By: #### 2 4321-2 ####[facility]ITALNCLIA [id number] [place] [address] [place] eGFRcr SerPlBld CKD-EPI 2020 33 mL/min/1.73m??? Low >=60 [facility] Comment on above: Order Comment: Patricia quiroz Type: BLOOD SPECIMENOrdering Facility: [facility] Address: [address] [place] [address] Result Comment: Lady mated Glomerular Filtration Rate [...] actual GFR. Performed By: #### 2 4321-2 ####[facility] [id number] [place] [address] [place] Glucose [Mass/Vol] 203 mg/dL High 74-99 [facility] Comment on above: Order Comment: Patricia quiroz Type: BLOOD SPECIMENOrdering Facility: [facility] Address: [address] [place] [address] Result Comment: The [place] Diabetes Association (ADA) provides guidance for cutoff [...] Standards of Medical Care in Diabetes 2016, [place] Diabetes Association. Diabetes Care. 2016.39(Suppl 1). Performed By: #### 2 4321-2 ####[facility] [id number] [place] [address] [place] Potassium [Moles/Vol] 5.0 mmol/L Normal 3.7-5.1 [facility] Comment on above: Order Comment: Patricia quiroz Type: BLOOD SPECIMENOrdering Facility: [facility] Address: [address] [place] [address] Performed By: #### 2 4321-2 ####[facility]ITALNCLIA [id number] [place] [address] [place] Sodium [Moles/Vol] 137 mmol/L Normal 136-144 [facility] Comment on above: Order Comment: Speci men Type: BLOOD SPECIMENOrdering Facility: [facility] Address: [address] [place] [address] Performed By: #### 2 4321-2 ####[facility] HOSPITALNCLI [id number] [place] [address] [place] Urea nitrogen [Mass/Vol] 36 mg/dL High 9-24 [facility] Comment on above: Order Comment: Speci men Type: BLOOD SPECIMENOrdering Facility: [facility] Address: [address] [place] [address] Performed By: #### 2 4321-2 ####[facility]ITALNCLIA [id number] [place] [address] [place] CBC W Auto Differential pane l (Bld)on 12-26-2024 Basophils (Bld) [#/Vol] 0.03 10*3/uL Normal <0.11 [facility] Comment on above: Order Comment: Speci men Type: BLOOD SPECIMENOrdering Facility: [facility] Address: [address] [place] [address] Performed By: #### 5 7021-8 ####[facility]ITALNCLIA [id number] [place] [address] [place] Basophils/100 WBC (Bld) 0.3 % Normal [facility] Comment on above: Order Comment: Speci men Type: BLOOD SPECIMENOrdering Facility: [facility] Address: [address] [place] [address] Performed By: #### 5 7021-8 ####[facility] ELLENBREMENKAVITALIA [id number] [place] [address] [place] Differential cell count method Nom (Bld) Auto Normal [facility] Comment on above: Order Comment: Speci men Type: BLOOD SPECIMENOrdering Facility: [facility] Address: [address] [place] [address] Performed By: #### 5 7021-8 ####[facility] [id number] [place] [address] [place] Eosinophils (Bld) [#/Vol] 0.34 10*3/uL Normal <0.46 [facility] Comment on above: Order Comment: Speci men Type: BLOOD SPECIMENOrdering Facility: [facility] Address: [address] [place] [address] Performed By: #### 5 7021-8 ####[facility] [id number] [place] [address] [place] Eosinophils/100 WBC (Bld) 3.2 % Normal [facility] Comment on above: Order Comment: Speci men Type: BLOOD SPECIMENOrdering Facility: [facility] Address: [address] [place] [address] Performed By: #### 5 7021-8 ####[facility] [id number] [place] [address] [place] Erythrocyte distribution width (RBC) [Ratio] 14.8 % Normal 11.5-15.0 [facility] Comment on above: Order Comment: Speci men Type: BLOOD SPECIMENOrdering Facility: [facility] Address: [address] [place] [address] Performed By: #### 5 7021-8 ####[facility]OSPITALNCLIA [id number] [place] [address] [place] Hematocrit (Bld) [Volume fraction] 30.7 % Low 39.0-51.0 [facility] Comment on above: Order Comment: Speci men Type: BLOOD SPECIMENOrdering Facility: [facility] Address: [address] [place] [address] Performed By: #### 5 7021-8 ####[facility]PITALNCK[facility] [id number] [place] [address] [place] Hemoglobin (Bld) [Mass/Vol] 10.2 g/dL Low 13.0-17.0 [facility] Comment on above: Order Comment: Speci men Type: BLOOD SPECIMENOrdering Facility: [facility] Address: [address] [place] [address] Performed By: #### 5 7021-8 ####[facility]ITALNCK[facility] [id number] [place] [address] [place] Immature granulocytes (Bld) [#/Vol] 0.04 10*3/uL Normal <0.10 [facility] Comment on above: Order Comment: Speci men Type: BLOOD SPECIMENOrdering Facility: [facility] Address: [address] [place] [address] Performed By: #### 5 7021-8 ####[facility]OSPITALNCLIA [id number] [place] [address] [place] Immature granulocytes/100 WBC (Bld) 0.4 % Normal [facility] Comment on above: Order Comment: Speci men Type: BLOOD SPECIMENOrdering Facility: [facility] Address: [address] [place] [address] Performed By: #### 5 7021-8 ####[facility] [id number] [place] [address] [place] Lymphocytes (Bld) [#/Vol] 0.87 10*3/uL Low 1.00-4.00 [facility] Comment on above: Order Comment: Speci men Type: BLOOD SPECIMENOrdering Facility: [facility] Address: [address] [place] [address] Performed By: #### 5 7021-8 ####[facility] ELLENBREMENJAMAL [id number] [address] STATES [facility] Lymphocytes/100 WBC (Bld) 8.3 % Normal [facility] Comment on above: Order Comment: Speci men Type: BLOOD SPECIMENOrdering Facility: [facility] Address: [address] [place] [address] Performed By: #### 5 7021-8 ####[facility] ELLENBREMENKAVITATAINA [id number] [place] [address] [place] MCH (RBC) [Entitic mass] 29.1 pg Normal 26.0-34.0 [facility] Comment on above: Order Comment: Speci men Type: BLOOD SPECIMENOrdering Facility: [facility] Address: [address] [place] [address] Performed By: #### 5 7021-8 ####[facility]OSPITALNCLIA [id number] [place] [address] [place] MCHC (RBC) [Mass/Vol] 33.2 g/dL Normal 30.5-36.0 [facility] Comment on above: Order Comment: Speci men Type: BLOOD SPECIMENOrdering Facility: [facility] Address: [address] [place] [address] Performed By: #### 5 7021-8 ####[facility] HOSPITALKAVITALIMingo [id number] [place] [address] [place] MCV (RBC) [Entitic vol] 87.7 fL Normal 80.0-100.0 [facility] Comment on above: Order Comment: Speci men Type: BLOOD SPECIMENOrdering Facility: [facility] Address: [address] [place] [address] Performed By: #### 5 7021-8 ####[facility] HOSPITALKAVITAMingo [id number] [place] [address] [place] Monocytes (Bld) [#/Vol] 0.67 10*3/uL Normal <0.87 [facility] Comment on above: Order Comment: Speci men Type: BLOOD SPECIMENOrdering Facility: [facility] Address: [address] [place] [address] Performed By: #### 5 7021-8 ####[facility] CENTERLIA [id number] [place] [address] [place] Monocytes/100 WBC (Bld) 6.4 % Normal [facility] Comment on above: Order Comment: Speci men Type: BLOOD SPECIMENOrdering Facility: [facility] Address: [address] [place] [address] Performed By: #### 5 7021-8 ####[facility] SPRINGSA [id number] [place] [address] [place] Neutrophils (Bld) [#/Vol] 8.57 10*3/uL High 1.45-7.50 [facility] Comment on above: Order Comment: Speci men Type: BLOOD SPECIMENOrdering Facility: [facility] Address: [address] [place] [address] Performed By: #### 5 7021-8 ####[facility] CENTERLIA [id number] [place] [address] [place] Neutrophils/100 WBC (Bld) 81.4 % Normal [facility] Comment on above: Order Comment: Speci men Type: BLOOD SPECIMENOrdering Facility: [facility] Address: [address] [place] [address] Performed By: #### 5 7021-8 ####[facility] CENTERLIA [id number] [place] [address] [place] Nucleated RBC (Bld) [#/Vol] 10*3/uL Normal <0.01 [facility] Comment on above: Order Comment: Speci men Type: BLOOD SPECIMENOrdering Facility: [facility] Address: [address] [place] [address] Performed By: #### 5 7021-8 ####[facility] HOSPITALNCLI [id number] [place] [address] [place] Nucleated RBC/100 WBC (Bld) [Ratio] 0.0 /100 WBC Normal [facility] Comment on above: Order Comment: Speci men Type: BLOOD SPECIMENOrdering Facility: [facility] Address: [address] [place] [address] Performed By: #### 5 7021-8 ####[facility] HOSPITALNCLI [id number] [place] [address] [place] Platelet mean volume (Bld) [Entitic vol] 10.6 fL Normal 9.0-12.7 [facility] Comment on above: Order Comment: Speci men Type: BLOOD SPECIMENOrdering Facility: [facility] Address: [address] [place] [address] Performed By: #### 5 7021-8 ####[facility] HOSPITALNCLIA [id number] [place] [address] [place] Platelets (Bld) [#/Vol] 179 10*3/uL Normal 150-400 [facility] Comment on above: Order Comment: Speci men Type: BLOOD SPECIMENOrdering Facility: [facility] Address: [address] [place] [address] Performed By: #### 5 7021-8 ####[facility]OSPITALNCLIA [id number] [place] [address] [place] RBC (Bld) [#/Vol] 3.50 10*6/uL Low 4.20-6.00 [facility] Comment on above: Order Comment: Speci men Type: BLOOD SPECIMENOrdering Facility: [facility] Address: [address] [place] [address] Performed By: #### 5 7021-8 ####[facility] HOSPITALZENA [id number] [place] [address] [place] WBC (Bld) [#/Vol] 10.52 10*3/uL Normal 3.70-11.00 [facility] Comment on above: Order Comment: Speci men Type: BLOOD SPECIMENOrdering Facility: [facility] Address: [address] [place] [address] Performed By: #### 5 7021-8 ####[facility]OSPITALKAVITAMingo [id number] [place] [address] [place] CNOVSPon 12-26-2024 CNOVSP Normal [facility] Ferritin SerPl-mCncon 2024 Ferritin [Mass/Vol] 546.0 ng/mL Normal 30.3-565.7 [facility] Comment on above: Order Comment: Speci men Type: BLOOD SPECIMENOrdering Facility: [facility] Address: [address] [place] [address] Performed By: #### 2 276-4, 88975-0 ####[facility] LABCLIA [id number] [place] [address] [place] HbA1c (Bld)on 12-26-2024 Average glucose Estimated from glycated hemoglobin (Bld) [Mass/Vol] 163 mg/dL Normal [facility] Comment on above: Order Comment: Speci men Type: BLOOD SPECIMENOrdering Facility: [facility] Address: [address] [place] [address] Result Comment: eAG: (Estimated average glucose) is a calculated value from HgbA1c and is airport representative of the average blood glucose level in the last 2-3 month period. Performed By: #### 5 5454-3 ####[facility] LABCLIA [id number] [place] [address] [place] HbA1c (Bld) [Mass fraction] 7.3 % High 4.3-5.6 [facility] Comment on above: Order Comment: Speci men Type: BLOOD SPECIMENOrdering Facility: [facility] Address: [address] [place] [address] Result Comment: [place] Diabetes Association guidelines indicate that patients with HgbA1c in the range 5.7-6.4% are at increased risk for development of diabetes, and intervention by lifestyle modification may be beneficial. HgbA1c greater or equal to 6.5% is considered diagnostic of diabetes. Performed By: #### 5 5454-3 ####[facility] LABCLIA [id number] [address] [place] Iron and Iron binding capaci ty panelon 12-26-2024 Iron [Mass/Vol] 57 ug/dL Normal 41-186 [facility] Comment on above: Order Comment: Speci men Type: BLOOD SPECIMENOrdering Facility: [facility] Address: [address] [place] [address] Performed By: #### 2 276-4, 48586-6 ####[facility] LABCLIA [id number] [address] [place] Iron binding capacity [Mass/Vol] 234 ug/dL Normal 232-386 [facility] Comment on above: Order Comment: Speci men Type: BLOOD SPECIMENOrdering Facility: [facility] Address: [address] [place] [address] Performed By: #### 2 276-4, 98065-0 ####[facility] LABCLIA [id number] [place] [id number] [place] Iron/TIBC [Molar ratio] 24.4 % Normal 15.0-57.0 [facility] Comment on above: Order Comment: Speci men Type: BLOOD SPECIMENOrdering Facility: [facility] Address: [address] [place] [address] Performed By: #### 2 276-4, 66273-8 ####[facility] LABCLIA [id number] [address] [address] [place] CNPNon 12-19-2024 CNPN Normal [facility] CNPNon 12-14-2024 CNPN Normal [facility] Bacteria Ur Culton Bacteria identified Cx Nom (U) ORGANISM ID: 1 10,000 -<50,000 CFU/ml Normal urogenital shakir Normal [facility] Comment on above: Performed By: #### 6 30-4 ####[facility] LABCLIA [id number] [place] [id number] [place] CNOVon 12-12-2024 CNOV Normal [facility] CBC W Auto Differential pane l (Bld)on 11-29-2024 Basophils (Bld) [#/Vol] 0.03 10*3/uL Normal <0.11 [facility] Comment on above: Order Comment: Speci men Type: BLOOD SPECIMENOrdering Facility: [facility] Address: [address] [place] [address] Performed By: #### 5 7021-8 ####[facility] HOSPITALZENA [id number] [address] [place] Basophils/100 WBC (Bld) 0.3 % Normal [facility] Comment on above: Order Comment: Speci men Type: BLOOD SPECIMENOrdering Facility: [facility] Address: [address] [place] [address] Performed By: #### 5 7021-8 ####[facility] HOSPITALZENA [id number] [address] STATES OF [facility] Differential cell count method Nom (Bld) Auto Normal [facility] Comment on above: Order Comment: Speci men Type: BLOOD SPECIMENOrdering Facility: [facility] Address: [address] [place] [address] Performed By: #### 5 7021-8 ####[facility] [id number] [place] [address] [place] Eosinophils (Bld) [#/Vol] 0.14 10*3/uL Normal <0.46 [facility] Comment on above: Order Comment: Speci men Type: BLOOD SPECIMENOrdering Facility: [facility] Address: [address] [place] [address] Performed By: #### 5 7021-8 ####[facility] [id number] [place] [address] [place] Eosinophils/100 WBC (Bld) 1.6 % Normal [facility] Comment on above: Order Comment: Speci men Type: BLOOD SPECIMENOrdering Facility: [facility] Address: [address] [place] [address] Performed By: #### 5 7021-8 ####[facility] [id number] [place] [address] [place] Erythrocyte distribution width (RBC) [Ratio] 15.5 % High 11.5-15.0 [facility] Comment on above: Order Comment: Speci men Type: BLOOD SPECIMENOrdering Facility: [facility] Address: [address] [place] [address] Performed By: #### 5 7021-8 ####[facility] [id number] [place] [address] [place] Hematocrit (Bld) [Volume fraction] 30.7 % Low 39.0-51.0 [facility] Comment on above: Order Comment: Speci men Type: BLOOD SPECIMENOrdering Facility: [facility] Address: [address] [place] [address] Performed By: #### 5 7021-8 ####[facility]PITALNCLI [id number] [place] [address] [place] Hemoglobin (Bld) [Mass/Vol] 10.1 g/dL Low 13.0-17.0 [facility] Comment on above: Order Comment: Speci men Type: BLOOD SPECIMENOrdering Facility: [facility] Address: [address] [place] [address] Performed By: #### 5 7021-8 ####[facility]SA [id number] [place] [address] [place] Immature granulocytes (Bld) [#/Vol] 10*3/uL Normal <0.10 [facility] Comment on above: Order Comment: Speci men Type: BLOOD SPECIMENOrdering Facility: [facility] Address: [address] [place] [address] Performed By: #### 5 7021-8 ####[facility] [id number] [place] [address] [place] Immature granulocytes/100 WBC (Bld) 0.2 % Normal [facility] Comment on above: Order Comment: Speci men Type: BLOOD SPECIMENOrdering Facility: [facility] Address: [address] [place] [address] Performed By: #### 5 7021-8 ####[facility] [id number] [place] [address] [place] Lymphocytes (Bld) [#/Vol] 1.04 10*3/uL Normal 1.00-4.00 [facility] Comment on above: Order Comment: Speci men Type: BLOOD SPECIMENOrdering Facility: [facility] Address: [address] [place] [address] Performed By: #### 5 7021-8 ####[facility] [id number] [place] [address] [place] Lymphocytes/100 WBC (Bld) 11.9 % Normal [facility] Comment on above: Order Comment: Speci men Type: BLOOD SPECIMENOrdering Facility: [facility] Address: [address] [place] [address] Performed By: #### 5 7021-8 ####[facility] ELLENESSENTIA HEALTHA [id number] [place] [address] [place] MCH (RBC) [Entitic mass] 28.9 pg Normal 26.0-34.0 [facility] Comment on above: Order Comment: Speci men Type: BLOOD SPECIMENOrdering Facility: [facility] Address: [address] [place] [address] Performed By: #### 5 7021-8 ####[facility] [id number] [place] [address] [place] MCHC (RBC) [Mass/Vol] 32.9 g/dL Normal 30.5-36.0 [facility] Comment on above: Order Comment: Speci men Type: BLOOD SPECIMENOrdering Facility: [facility] Address: [address] [place] [address] Performed By: #### 5 7021-8 ####[facility] [id number] [place] [address] [place] MCV (RBC) [Entitic vol] 87.7 fL Normal 80.0-100.0 [facility] Comment on above: Order Comment: Speci men Type: BLOOD SPECIMENOrdering Facility: [facility] Address: [address] [place] [address] Performed By: #### 5 7021-8 ####[facility] [id number] [place] [address] [place] Monocytes (Bld) [#/Vol] 0.64 10*3/uL Normal <0.87 [facility] Comment on above: Order Comment: Speci men Type: BLOOD SPECIMENOrdering Facility: [facility] Address: [address] [place] [address] Performed By: #### 5 7021-8 ####[facility] CENTERLIA [id number] [place] [address] [place] Monocytes/100 WBC (Bld) 7.3 % Normal [facility] Comment on above: Order Comment: Speci men Type: BLOOD SPECIMENOrdering Facility: [facility] Address: [address] [place] [address] Performed By: #### 5 7021-8 ####[facility] CENTERLIA [id number] [place] [address] [place] Neutrophils (Bld) [#/Vol] 6.87 10*3/uL Normal 1.45-7.50 [facility] Comment on above: Order Comment: Speci men Type: BLOOD SPECIMENOrdering Facility: [facility] Address: [address] [place] [address] Performed By: #### 5 7021-8 ####[facility] [id number] [place] [address] [place] Neutrophils/100 WBC (Bld) 78.7 % Normal [facility] Comment on above: Order Comment: Speci men Type: BLOOD SPECIMENOrdering Facility: [facility] Address: [address] [place] [address] Performed By: #### 5 7021-8 ####[facility] [id number] [place] [address] [place] Nucleated RBC (Bld) [#/Vol] 10*3/uL Normal <0.01 [facility] Comment on above: Order Comment: Speci men Type: BLOOD SPECIMENOrdering Facility: [facility] Address: [address] [place] [address] Performed By: #### 5 7021-8 ####[facility]ITAL[facility]CL[facility] [id number] [place] [address] [place] [place] Nucleated RBC/100 WBC (Bld) [Ratio] 0.0 /100 WBC Normal [facility] Comment on above: Order Comment: Speci men Type: BLOOD SPECIMENOrdering Facility: [facility] Address: [address] [place] [address] Performed By: #### 5 7021-8 ####[facility] [id number] [place] [address] [place] Platelet mean volume (Bld) [Entitic vol] 10.4 fL Normal 9.0-12.7 [facility] Comment on above: Order Comment: Speci men Type: BLOOD SPECIMENOrdering Facility: [facility] Address: [address] [place] [address] Performed By: #### 5 7021-8 ####[facility] [id number] [place] [address] [place] Platelets (Bld) [#/Vol] 184 10*3/uL Normal 150-400 [facility] Comment on above: Order Comment: Speci men Type: BLOOD SPECIMENOrdering Facility: [facility] Address: [address] [place] [address] Performed By: #### 5 7021-8 ####[facility] [id number] [place] [address] [place] RBC (Bld) [#/Vol] 3.50 10*6/uL Low 4.20-6.00 [facility] Comment on above: Order Comment: Speci men Type: BLOOD SPECIMENOrdering Facility: [facility] Address: [address] [place] [address] Performed By: #### 5 7021-8 ####[facility] [id number] [place] [address] [place] WBC (Bld) [#/Vol] 8.74 10*3/uL Normal 3.70-11.00 [facility] Comment on above: Order Comment: Speci men Type: BLOOD SPECIMENOrdering Facility: [facility] Address: [address] [place] [address] [place] [id number] Performed By: #### 5 7021-8 ####[facility] [id number] [place] [address] [place] CNPNon 11-29-2024 CNPN Normal [facility] Vit B12 SerPl-mCncon 11-29- 025 Cobalamin (Vitamin B12) [Mass/Vol] 972 pg/mL Normal 232-1245 [facility] Comment on above: Order Comment: Speci men Type: BLOOD SPECIMENOrdering Facility: [facility] Address: [address] [place] [address] Performed By: #### 2 132-9 ####[facility] LABCLIA [id number] [place] [id number] [place] CNOVon 11-28-2024 CNOV Normal [facility] CNPNon 11-28-2024 CNPN Normal [facility] CNOVon 11-23-2024 CNOV Office Visit (NEAGCL M) YUEAXEL ([id number]) 1940 M Date Time Provider Department 11/23/24 1:00 PM YEYO BAILEY NEAGCLM During your visit today, we recorded the following information about you: Pulse Respiration Blood pressure 46/minute 16/minute 140/67 Yeyo Bailey APRN.CNP 11/23/2024 1:35 PM Signed NEUROSURGERY FOLLOW UP OFFICE NOTE Yeyo Bailey APRN.CNP Date of visit: November 23, 2024 Patient Name: Mr.Merven Pacheco Yue Date of : 1940 Current Age: [age] year old Sex: male MRN/E# [id number] Last Office Visit: Hospital follow-up CHIEF COMPLAINT: Patient presents with: Established Patient HPI: The patient presents for a hospital follow up with imaging (CT B) for evaluation. This is an 84-year-old male with a PMHx of Parkinson's, DM, CAD, CKD, B-cell lymphoma s/p chemotherapy, anemia, A-fib (ASA) who was seen for consult at [facility] on 10/25/[address] Reese. Patient underwent [...] See Comments Hyperkalemia Atorvastatin Myalgia Pravastatin Myalgia Xugqtfl-Qxn-Bsd Red* Myalgia Current Outpatient Medications Medication Sig Dispense Refill aspirin, enteric coated (ASPIRIN, ENTERIC COATED) 81 mg EC tablet Take 81 mg by mouth once daily. carbidopa-levodopa (SINEMET) 25-100 mg per tablet Take 1 (more content not included)... Normal [facility] Cardiology Visit Reporton Cardiology Visit Report Normal [facility] CT BRAIN WO IVCONon 11-10-19 CT BRAIN WO IVCON Normal [facility] CT Head WO contraston 2024 IMPRESSION: No significant interval change in size of thin hypoattenuating subdural fluid collections along the bilateral cerebral convexities without substantial mass effect, measuring up to 5 mm in greatest thickness. No midline shift. Podiatric Assistant: DAVID Transcribe Date/Time: Nov 09 2024 12:14P Dictated by : NELSON PROCTOR MD This examination was interpreted and the report reviewed and electronically signed by: NELSON PROCTOR MD on Nov 09 2024 12:17PM [facility] DIVISION OF RADIOLOGY * * *Final Report* * * DATE OF EXAM: Nov 09 2024 11:54AM [facility] 0504 - CT BRAIN WO IVCON / [...] tissues are unremarkable. DIVISION OF RADIOLOGY Provider, [facility] - 11/09/2024 * * *Final Report* * * DATE OF EXAM: Nov 09 2024 11:54AM [facility] 0504 - CT BRAIN WO IVCON / [...] mm in greatest thickness. No midline shift. Podiatric Assistant: PSCB Transcribe Date/Time: Nov 09 2024 12:14P Dictated by : NELSON PROCTOR MD This examination was interpreted and the report reviewed and electronically signed by: NELSON PROCTOR MD on Nov 09 2024 12:17PM EST [facility] Radiology Study observation (narrative) [facility] CT Head WO contrastOrdered B y: Ccf Provider on 11-09-2024 [facility] CBC W Auto Differential pane l (Bld)on 11-01-2024 Basophils (Bld) [#/Vol] 0.04 10*3/uL Normal <0.11 [facility] Comment on above: Order Comment: Speci men Type: BLOOD SPECIMENOrdering Facility: [facility] Address: [address] [place] [address] Performed By: #### 5 7021-8 ####[facility] [id number] [place] [address] [place] Basophils/100 WBC (Bld) 0.5 % Normal [facility] Comment on above: Order Comment: Speci men Type: BLOOD SPECIMENOrdering Facility: [facility] Address: [address] [place] [address] Performed By: #### 5 7021-8 ####[facility] JGZENA [id number] [place] [address] [place] Differential cell count method Nom (Bld) Auto Normal [facility] Comment on above: Order Comment: Speci men Type: BLOOD SPECIMENOrdering Facility: [facility] Address: [address] [place] [address] Performed By: #### 5 7021-8 ####[facility] ELLENDEBA [id number] [place] [address] [place] Eosinophils (Bld) [#/Vol] 0.55 10*3/uL High <0.46 [facility] Comment on above: Order Comment: Speci men Type: BLOOD SPECIMENOrdering Facility: [facility] Address: [address] [place] [address] Performed By: #### 5 7021-8 ####[facility] [id number] [place] [address] [place] Eosinophils/100 WBC (Bld) 6.3 % Normal [facility] Comment on above: Order Comment: Speci men Type: BLOOD SPECIMENOrdering Facility: [facility] Address: [address] [place] [address] Performed By: #### 5 7021-8 ####[facility]ILDRENSherryKAVITALIA [id number] [place] [address] [place] Erythrocyte distribution width (RBC) [Ratio] 15.0 % Normal 11.5-15.0 [facility] Comment on above: Order Comment: Speci men Type: BLOOD SPECIMENOrdering Facility: [facility] Address: [address] [place] [address] Performed By: #### 5 7021-8 ####[facility] [id number] [place] [address] [place] Hematocrit (Bld) [Volume fraction] 29.8 % Low 39.0-51.0 [facility] Comment on above: Order Comment: Speci men Type: BLOOD SPECIMENOrdering Facility: [facility] Address: [address] [place] [address] Performed By: #### 5 7021-8 ####[facility] [id number] [place] [address] [place] Hemoglobin (Bld) [Mass/Vol] 9.9 g/dL Low 13.0-17.0 [facility] Comment on above: Order Comment: Speci men Type: BLOOD SPECIMENOrdering Facility: [facility] Address: [address] [place] [address] Performed By: #### 5 7021-8 ####[facility] [id number] [place] [address] [place] Immature granulocytes (Bld) [#/Vol] 0.06 10*3/uL Normal <0.10 [facility] Comment on above: Order Comment: Speci men Type: BLOOD SPECIMENOrdering Facility: [facility] Address: [address] [place] [address] Performed By: #### 5 7021-8 ####[facility] [id number] [place] [address] [place] Immature granulocytes/100 WBC (Bld) 0.7 % Normal [facility] Comment on above: Order Comment: Speci men Type: BLOOD SPECIMENOrdering Facility: [facility] Address: [address] [place] [address] Performed By: #### 5 7021-8 ####[facility] [id number] [place] [address] [place] Lymphocytes (Bld) [#/Vol] 1.16 10*3/uL Normal 1.00-4.00 [facility] Comment on above: Order Comment: Speci men Type: BLOOD SPECIMENOrdering Facility: [facility] Address: [address] [place] [address] Performed By: #### 5 7021-8 ####[facility] [id number] [place] [address] [place] Lymphocytes/100 WBC (Bld) 13.2 % Normal [facility] Comment on above: Order Comment: Speci men Type: BLOOD SPECIMENOrdering Facility: [facility] Address: [address] [place] [address] Performed By: #### 5 7021-8 ####[facility] [id number] [place] [address] [place] MCH (RBC) [Entitic mass] 28.7 pg Normal 26.0-34.0 [facility] Comment on above: Order Comment: Speci men Type: BLOOD SPECIMENOrdering Facility: [facility] Address: [address] [place] [address] Performed By: #### 5 7021-8 ####[facility] [id number] [place] [address] [place] MCHC (RBC) [Mass/Vol] 33.2 g/dL Normal 30.5-36.0 [facility] Comment on above: Order Comment: Speci men Type: BLOOD SPECIMENOrdering Facility: [facility] Address: [address] [place] [address] Performed By: #### 5 7021-8 ####[facility] [id number] [place] [address] [place] MCV (RBC) [Entitic vol] 86.4 fL Normal 80.0-100.0 [facility] Comment on above: Order Comment: Speci men Type: BLOOD SPECIMENOrdering Facility: [facility] Address: [address] [place] [address] Performed By: #### 5 7021-8 ####[facility] MIKELWNCLIA [id number] [place] [address] [place] Monocytes (Bld) [#/Vol] 0.58 10*3/uL Normal <0.87 [facility] Comment on above: Order Comment: Speci men Type: BLOOD SPECIMENOrdering Facility: [facility] Address: [address] [place] [address] Performed By: #### 5 7021-8 ####[facility]ILDRENWKAVITALIA [id number] [place] [address] [place] Monocytes/100 WBC (Bld) 6.6 % Normal [facility] Comment on above: Order Comment: Speci men Type: BLOOD SPECIMENOrdering Facility: [facility] Address: [address] [place] [address] Performed By: #### 5 7021-8 ####[facility]OS[facility]ITALKAVITALIA [id number] [place] [address] [place] Neutrophils (Bld) [#/Vol] 6.40 10*3/uL Normal 1.45-7.50 [facility] Comment on above: Order Comment: Speci men Type: BLOOD SPECIMENOrdering Facility: [facility] Address: [address] [place] [address] Performed By: #### 5 7021-8 ####[facility]ILDRENWNCL[facility] [id number] [place] [address] [place] Neutrophils/100 WBC (Bld) 72.7 % Normal [facility] Comment on above: Order Comment: Speci men Type: BLOOD SPECIMENOrdering Facility: [facility] Address: [address] [place] [address] Performed By: #### 5 7021-8 ####[facility] CENTERLIA [id number] [place] [address] [place] Nucleated RBC (Bld) [#/Vol] 10*3/uL Normal <0.01 [facility] Comment on above: Order Comment: Speci men Type: BLOOD SPECIMENOrdering Facility: [facility] Address: [address] [place] [address] Performed By: #### 5 7021-8 ####[facility] [id number] [place] [address] [place] Nucleated RBC/100 WBC (Bld) [Ratio] 0.0 /100 WBC Normal [facility] Comment on above: Order Comment: Speci men Type: BLOOD SPECIMENOrdering Facility: [facility] Address: [address] [place] [address] Performed By: #### 5 7021-8 ####[facility] [id number] [place] [address] [place] Platelet mean volume (Bld) [Entitic vol] 10.5 fL Normal 9.0-12.7 [facility] Comment on above: Order Comment: Speci men Type: BLOOD SPECIMENOrdering Facility: [facility] Address: [address] [place] [address] Performed By: #### 5 7021-8 ####[facility] [id number] [place] [address] [place] Platelets (Bld) [#/Vol] 176 10*3/uL Normal 150-400 [facility] Comment on above: Order Comment: Speci men Type: BLOOD SPECIMENOrdering Facility: [facility] Address: [address] [place] [address] Performed By: #### 5 7021-8 ####[facility]ENTERLI [id number] [place] [address] [place] RBC (Bld) [#/Vol] 3.45 10*6/uL Low 4.20-6.00 [facility] Comment on above: Order Comment: Speci men Type: BLOOD SPECIMENOrdering Facility: [facility] Address: [address] [place] [address] Performed By: #### 5 7021-8 ####[facility]OS[facility]ITALNCLI [id number] [address] WBC (Bld) [#/Vol] 8.79 10*3/uL Normal 3.70-11.00 [facility] Comment on above: Order Comment: Speci men Type: BLOOD SPECIMENOrdering Facility: [facility] Address: [address] [place] [address] Performed By: #### 5 7021-8 ####[facility]ITALN[facility] [id number] [address] [place] ALLIED HEALTHon 10-25-2024 ALLIED HEALTH HNO ID: [id number] Author: JUNG PATRICK RT(R) Service: ? Author [...] PATIENT PRESENTS WITH AN IMPLANTABLE OR ATTACHED MORALE OFFICER: No RADIOLOGY DEPARTMENT: CT; Exam(s) Completed: Brain PERIPHERAL IV DATA: Not applicable SIGNED BY: RT Nunu(R) October 25, 2024 8:16 PM Normal [facility] CBC W Auto Differential pane l (Bld)on 10-25-2024 Basophils (Bld) [#/Vol] 0.05 10*3/uL Normal <0.11 [facility] Comment on above: Order Comment: Speci men Type: BLOOD SPECIMEN [facility] Address: [address] [place] [address] Performed By: #### 5 7021-8 #### [facility] CLIA [id number] [address] Basophils/100 WBC (Bld) 0.6 % Normal [facility] Comment on above: Order Comment: Speci men Type: BLOOD SPECIMEN [facility] Address: [address] [place] [address] Performed By: #### 5 7021-8 #### [facility] CLIA [id number] [address] Differential cell count method Nom (Bld) Auto Normal [facility] Comment on above: Order Comment: Speci men Type: BLOOD SPECIMEN [facility] Address: [address] [place] [address] Performed By: #### 5 7021-8 #### [facility] CLIA [id number] [address] [facility] Eosinophils (Bld) [#/Vol] 0.63 10*3/uL High <0.46 [facility] Comment on above: Order Comment: Speci men Type: BLOOD SPECIMEN [facility] Address: [address] [place] [address] Performed By: #### 5 7021-8 #### [facility] CLIA [id number] [address] Eosinophils/100 WBC (Bld) 7.2 % Normal [facility] Comment on above: Order Comment: Speci men Type: BLOOD SPECIMEN [facility] Address: [address] [place] [address] Performed By: #### 5 7021-8 #### [facility] CLIA [id number] [address] [place] Erythrocyte distribution width (RBC) [Ratio] 14.8 % Normal 11.5-15.0 [facility] Comment on above: Order Comment: Speci men Type: BLOOD SPECIMEN [facility] Address: [address] [place] [address] Performed By: #### 5 7021-8 #### [facility] CLIA [id number] [address] [place] Hematocrit (Bld) [Volume fraction] 32.3 % Low 39.0-51.0 [facility] Comment on above: Order Comment: Speci men Type: BLOOD SPECIMEN [facility] Address: [address] [place] [address] Performed By: #### 5 7021-8 #### [facility] CLIA [id number] [address] [place] Hemoglobin (Bld) [Mass/Vol] 10.3 g/dL Low 13.0-17.0 [facility] Comment on above: Order Comment: Speci men Type: BLOOD SPECIMEN [facility] Address: [address] [place] [address] Performed By: #### 5 7021-8 #### [facility] CLIA [id number] [address] [facility] Immature granulocytes (Bld) [#/Vol] 0.07 10*3/uL Normal <0.10 [facility] Comment on above: Order Comment: Speci men Type: BLOOD SPECIMEN [facility] Address: [address] [place] [address] Performed By: #### 5 7021-8 #### [facility] CLIA [id number] [address] Immature granulocytes/100 WBC (Bld) 0.8 % Normal [facility] Comment on above: Order Comment: Speci men Type: BLOOD SPECIMEN [facility] Address: [address] [place] [address] Performed By: #### 5 7021-8 #### [facility] CLIA [id number] [address] OF [place] Lymphocytes (Bld) [#/Vol] 1.18 10*3/uL Normal 1.00-4.00 [facility] Comment on above: Order Comment: Speci men Type: BLOOD SPECIMEN [facility] Address: [address] [place] [address] Performed By: #### 5 7021-8 #### [facility] CLIA [id number] [address] Lymphocytes/100 WBC (Bld) 13.5 % Normal [facility] Comment on above: Order Comment: Speci men Type: BLOOD SPECIMEN [facility] Address: [address] [place] [address] Performed By: #### 5 7021-8 #### [facility] CLIA [id number] [address] MCH (RBC) [Entitic mass] 28.3 pg Normal 26.0-34.0 [facility] Comment on above: Order Comment: Speci men Type: BLOOD SPECIMEN [facility] Address: [address] [place] [address] Performed By: #### 5 7021-8 #### [facility] CLIA [id number] [address] [facility] MCHC (RBC) [Mass/Vol] 31.9 g/dL Normal 30.5-36.0 [facility] Comment on above: Order Comment: Speci men Type: BLOOD SPECIMEN [facility] Address: [address] [place] [address] Performed By: #### 5 7021-8 #### [facility] CLIA [id number] [address] MCV (RBC) [Entitic vol] 88.7 fL Normal 80.0-100.0 [facility] Comment on above: Order Comment: Speci men Type: BLOOD SPECIMEN [facility] Address: [address] [place] [address] Performed By: #### 5 7021-8 #### [facility] CLIA [id number] [address] [place] Monocytes (Bld) [#/Vol] 0.75 10*3/uL Normal <0.87 [facility] Comment on above: Order Comment: Speci men Type: BLOOD SPECIMEN [facility] Address: [address] [place] [address] Performed By: #### 5 7021-8 #### [facility] CLIA [id number] [address] [place] Monocytes/100 WBC (Bld) 8.6 % Normal [facility] Comment on above: Order Comment: Speci men Type: BLOOD SPECIMEN [facility] Address: [address] [place] [address] Performed By: #### 5 7021-8 #### [facility] CLIA [id number] [address] [place] Neutrophils (Bld) [#/Vol] 6.05 10*3/uL Normal 1.45-7.50 [facility] Comment on above: Order Comment: Speci men Type: BLOOD SPECIMEN [facility] Address: [address] [place] [address] Performed By: #### 5 7021-8 #### [facility] CLIA [id number] [address] [place] Neutrophils/100 WBC (Bld) 69.3 % Normal [facility] Comment on above: Order Comment: Speci men Type: BLOOD SPECIMEN [facility] Address: [address] [place] [address] Performed By: #### 5 7021-8 #### [facility] CLIA [id number] [address] [place] [address] [place] Nucleated RBC (Bld) [#/Vol] 10*3/uL Normal <0.01 [facility] Comment on above: Order Comment: Speci men Type: BLOOD SPECIMEN [facility] Address: [address] [place] [address] Performed By: #### 5 7021-8 #### [facility] CLIA [id number] [address] [place] Nucleated RBC/100 WBC (Bld) [Ratio] 0.0 /100 WBC Normal [facility] Comment on above: Order Comment: Speci men Type: BLOOD SPECIMEN [facility] Address: [address] [place] [address] Performed By: #### 5 7021-8 #### [facility] CLIA [id number] [address] [place] Platelet mean volume (Bld) [Entitic vol] 10.5 fL Normal 9.0-12.7 [facility] Comment on above: Order Comment: Speci men Type: BLOOD SPECIMEN [facility] Facility: [facility] Address: [address] [place] [address] Performed By: #### 5 7021-8 #### [facility] CLIA [id number] [address] [place] Platelets (Bld) [#/Vol] 206 10*3/uL Normal 150-400 [facility] Comment on above: Order Comment: Speci men Type: BLOOD SPECIMEN [facility] Facility: [facility] Address: [address] [place] [address] Performed By: #### 5 7021-8 #### [facility] CLIA [id number] [address] [place] [address] [place] RBC (Bld) [#/Vol] 3.64 10*6/uL Low 4.20-6.00 [facility] Comment on above: Order Comment: Speci men Type: BLOOD SPECIMEN [facility] Address: [facility] [place] [address] Performed By: #### 5 7021-8 #### [facility] CLIA [id number] [address] [place] [address] [place] WBC (Bld) [#/Vol] 8.73 10*3/uL Normal 3.70-11.00 [facility] Comment on above: Order Comment: Speci men Type: BLOOD SPECIMEN [facility] Address: [address] [place] [address] Performed By: #### 5 7021-8 #### 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 Normal [facility] CT BRAIN WO IVCONon 10-26-[address] BRAIN WO IVCON * * *Final Report* * * DATE OF EXAM: Oct 25 2024 8:19PM [facility] 0504 - CT BRAIN WO IVCON [...] of thin bilateral cerebral convexity subdural collections. Podiatric Assistant: PSCB Transcribe Date/Time: Oct 25 2024 9:34P Dictated by : UZAIR PUENTES MD This examination was interpreted and the report reviewed and electronically signed by: UZAIR PUENTES MD on Oct 25 2024 9:39PM EST [id number] Normal [facility] Comprehensive metabolic 2000 panelon 10-25-2024 Albumin [Mass/Vol] 3.4 g/dL Low 3.9-4.9 [facility] Comment on above: Order Comment: Speci men Type: BLOOD SPECIMEN Ordering Facility: [facility] Address: [address] [place] [address] Performed By: #### 2 4323-8 #### [facility] CLIA [id number] [address] ALP [Catalytic activity/Vol] 53 U/L Normal 38-113 [facility] Comment on above: Order Comment: Speci men Type: BLOOD SPECIMEN Ordering Facility: [facility] Address: [address] [place] [address] Performed By: #### 2 4323-8 #### [facility] [place] CLIA [id number] [address] STATES OF [facility] ALT With P-5'-P [Catalytic activity/Vol] U/L Low 10-54 [facility] Comment on above: Order Comment: Speci men Type: BLOOD SPECIMEN Ordering Facility: [facility] Address: [address] [place] [address] Performed By: #### 2 4323-8 #### [facility] CLIA [id number] [address] Anion gap [Moles/Vol] 11 mmol/L Normal 8-15 [facility] Comment on above: Order Comment: Speci men Type: BLOOD SPECIMEN Ordering Facility: [facility] Address: [address] [place] [address] Performed By: #### 2 4323-8 #### [facility] CLIA [id number] [address] [place] AST With P-5'-P [Catalytic activity/Vol] 9 U/L Low 14-40 [facility] Comment on above: Order Comment: Speci men Type: BLOOD SPECIMEN Ordering Facility: [facility] Address: [address] [place] [address] Performed By: #### 2 4323-8 #### [facility] CLIA [id number] [address] [place] [address] [place] Bilirubin [Mass/Vol] 0.3 mg/dL Normal 0.2-1.3 [facility] Comment on above: Order Comment: Speci men Type: BLOOD SPECIMEN Ordering Facility: [facility] Address: [address] [place] [address] Performed By: #### 2 4323-8 #### [facility] CLIA [id number] [address] [place] Calcium [Mass/Vol] 9.0 mg/dL Normal 8.5-10.2 [facility] Comment on above: Order Comment: Speci men Type: BLOOD SPECIMEN Ordering Facility: [facility] Address: [address] [place] [address] Performed By: #### 2 4323-8 #### [facility] CLIA [id number] [address] [place] Chloride [Moles/Vol] 102 mmol/L Normal 98-107 [facility] Comment on above: Order Comment: Speci men Type: BLOOD SPECIMEN Ordering Facility: [facility] Address: [address] [place] [address] Performed By: #### 2 4323-8 #### [facility] CLIA [id number] [address] [place] CO2 [Moles/Vol] 25 mmol/L Normal 22-30 [facility] Comment on above: Order Comment: Speci men Type: BLOOD SPECIMEN Ordering Facility: [facility] Address: [address] [place] [address] Performed By: #### 2 4323-8 #### [facility] CLIA [id number] [address] [place] [address] [place] Creatinine [Mass/Vol] 2.21 mg/dL High 0.73-1.22 [facility] Comment on above: Order Comment: Patricia quiroz Type: BLOOD SPECIMEN Ordering Facility: [facility] Address: [address] [place] [address] Performed By: #### 2 4323-8 #### [facility] CLIA [id number] [address] OF [facility] Creatinine and Glomerular filtration rate.predicted panel (S/P/Bld) 29 mL/min/1.73m??? Low >=60 [facility] Comment on above: Order Comment: Patricia quiroz Type: BLOOD SPECIMEN Ordering Facility: [facility] Address: [address] [place] [address] Result Comment: Lady mated Glomerular Filtration Rate [...] Performed By: #### 2 4323-8 #### [facility] CLIA [id number] [address] [place] Glucose [Mass/Vol] 150 mg/dL High 74-99 [facility] Comment on above: Order Comment: Patricia quiroz Type: BLOOD SPECIMEN Ordering Facility: [facility] Address: [address] [place] [address] Result Comment: The [place] Diabetes Association (ADA) provides guidance for cutoff [...] Standards of Medical Care in Diabetes 2016, [place] [employer]. Diabetes Care. 2016.39(Suppl 1). Performed By: #### 2 4323-8 #### [facility] CLIA [id number] [address] [place] [facility] Potassium [Moles/Vol] 4.6 mmol/L Normal 3.7-5.1 [facility] Comment on above: Order Comment: Speci men Type: BLOOD SPECIMEN Ordering Facility: [facility] Address: [address] [place] [address] Performed By: #### 2 4323-8 #### [facility] CLIA [id number] [address] STATES [facility] Protein [Mass/Vol] 6.5 g/dL Normal 6.3-8.0 [facility] Comment on above: Order Comment: Speci men Type: BLOOD SPECIMEN Ordering Facility: [facility] Address: [address] [place] [address] Performed By: #### 2 4323-8 #### [facility] CLIA [id number] [address] Sodium [Moles/Vol] 138 mmol/L Normal 136-144 [facility] Comment on above: Order Comment: Speci men Type: BLOOD SPECIMEN Ordering Facility: [facility] Address: [address] [place] [address] Performed By: #### 2 4323-8 #### [facility] CLIA [id number] [address] [place] Urea nitrogen [Mass/Vol] 32 mg/dL High 9-24 [facility] Comment on above: Order Comment: Speci men Type: BLOOD SPECIMEN Ordering Facility: [facility] Address: [address] [place] [address] Performed By: #### 2 4323-8 #### [facility] CLIA [id number] [address] [place] ED NOTEon 06-18-2025 ED NOTE HNO ID: [id number] Author: MARLO BAI RN Service: ? Author Type: Registered Nurse Type: ED Notes Filed: 10/25/2024 20:12 Note Text: Patti MAYNARD at bedside discussing hx with pt spouse. [facility] ED NOTE HNO ID: [id number] Author: MARLO BAI RN Service: ? Author Type: Registered Nurse Type: ED Notes Filed: 10/25/2024 19:56 Note Text: To CT in cart [facility] ED PROV NOTEon 10-25-2024 ED PROV NOTE HNO ID: [id number] Author: DIEUDONNE LOPEZ DO Service: Emergency Medicine [...] above. Conc (more content not included)... Normal [facility] MR Brain WO contraston 10-25 IMPRESSION: 1. Interval development of bilateral subdural collections. 2. Differential: Subdural hematomas versus dural thickening (intracranial hypotension). 3. Stable remaining senescent with changes without acute abdominal normality. URGENT RESULTS Acuity: Urgent Communication: Communicated with Dr. Arsh Otto JR; , on 10/25/2024 2:35 PM via verbal communication. --END OF FINDING-- Podiatric Assistant: DAVID Transcribe Date/Time: Oct 25 2024 2:32P Dictated by : LATASHA IRWIN MD This examination was interpreted and the report reviewed and electronically signed by: LATASHA IRWIN MD on Oct 25 2024 2:42PM [facility] DIVISION OF RADIOLOGY * * *Final Report* * * DATE OF EXAM: Oct 25 2024 12:20PM [facility] 0294 - MRI BRAIN WO IVCON / [...] mass effect noted. DIVISION OF RADIOLOGY Provider, [facility] - 10/25/2024 * * *Final Report* * * DATE OF EXAM: Oct 25 2024 12:20PM [facility] 0294 - MRI BRAIN IVCON / PROCEDURE REASON: multiple diagnoses * [...] PM via verbal communication. --END OF FINDING-- Podiatric Assistant: DAVID Transcribe Date/Time: Oct 25 2024 2:32P Dictated by : LATASHA IRWIN MD This examination was interpreted and the report reviewed and electronically signed by: LATASHA IRWIN MD on Oct 25 2024 2:42PM EST [facility] Radiology Study observation (narrative) Nasir [facility] MR Brain WO contrastOrdered By: Ccf Provider on 10-25-2024 [facility] MRI BRAIN WO IVCONon 025 MRI BRAIN WO IVCON Normal [facility] PT panel Coag (PPP)on 2024 INR Coag (PPP) [Relative time] 1.1 {INR} Normal 0.9-1.3 [facility] Comment on above: Order Comment: Speci men Type: BLOOD SPECIMEN Ordering Facility: [facility] Address: [address] [place] [address] Result Comment: Abby min K Antagonist (VKA) Therapeutic Range: INR 2 to 3 (Target INR of 2.5) Note: For patients treated with VKA drugs, such as warfarin, the [place] [employer]icians 2012 Guideline recommends [...] Chest 2012, 141:7S-47S Gunner RA, et al. [facility] 2017, 70: 252-289 Performed By: #### 3 4528-0, 98818-6 #### [facility] CLIA [id number] [address] OF [facility] PT Coag (PPP) [Time] 11.5 s Normal 9.7-13.0 [facility] Comment on above: Order Comment: Patricia quiroz Type: BLOOD SPECIMEN Ordering Facility: [facility] Address: [address] [place] [address] Performed By: #### 3 4528-0, 72814-5 #### [facility] CLIA [id number] [address] aPTT PPPon 10-25-2024 aPTT Coag (PPP) [Time] 26.9 s Normal 23.0-32.4 [facility] Comment on above: Order Comment: Patricia quiroz Type: BLOOD SPECIMEN Ordering Facility: [facility] Address: [address] [place] [address] Performed By: #### 3 4528-0, 64064-9 #### [facility] CLIA [id number] [address] CNOVon 10-20-2024 CNOV Normal [facility] CBC W Auto Differential pane l (Bld)on 10-04-2024 Basophils (Bld) [#/Vol] 0.04 10*3/uL Normal <0.11 [facility] Comment on above: Order Comment: Patricia quiroz Type: BLOOD SPECIMENOrdering Facility: [facility] Address: [address] [place] [address] Performed By: #### 5 7021-8 ####[facility] MILLWKAVITALIA [id number] [place] [address] [place] Basophils/100 WBC (Bld) 0.5 % Normal [facility] Comment on above: Order Comment: Speci men Type: BLOOD SPECIMENOrdering Facility: [facility] Address: [address] [place] [address] Performed By: #### 5 7021-8 ####[facility]ENTERLIA [id number] [place] [address] [place] Differential cell count method Nom (Bld) Auto Normal [facility] Comment on above: Order Comment: Speci men Type: BLOOD SPECIMENOrdering Facility: [facility] Address: [address] [place] [address] Performed By: #### 5 7021-8 ####[facility] CENTERLIA [id number] [place] [address] [place] Eosinophils (Bld) [#/Vol] 0.40 10*3/uL Normal <0.46 [facility] Comment on above: Order Comment: Speci men Type: BLOOD SPECIMENOrdering Facility: [facility] Address: [address] [place] [address] Performed By: #### 5 7021-8 ####[facility]ILDRENWNCLIA [id number] [place] [address] [place] Eosinophils/100 WBC (Bld) 4.9 % Normal [facility] Comment on above: Order Comment: Speci men Type: BLOOD SPECIMENOrdering Facility: [facility] Address: [address] [place] [address] Performed By: #### 5 7021-8 ####[facility] CENTERLIA [id number] [place] [address] [place] Erythrocyte distribution width (RBC) [Ratio] 14.6 % Normal 11.5-15.0 [facility] Comment on above: Order Comment: Speci men Type: BLOOD SPECIMENOrdering Facility: [facility] Address: [address] [place] [address] Performed By: #### 5 7021-8 ####[facility]ITALKAVITAKANE [facility] [id number] [place] [address] [place] Hematocrit (Bld) [Volume fraction] 32.7 % Low 39.0-51.0 [facility] Comment on above: Order Comment: Speci men Type: BLOOD SPECIMENOrdering Facility: [facility] Address: [address] [place] [address] Performed By: #### 5 7021-8 ####[facility] [id number] [place] [address] [place] Hemoglobin (Bld) [Mass/Vol] 10.6 g/dL Low 13.0-17.0 [facility] Comment on above: Order Comment: Speci men Type: BLOOD SPECIMENOrdering Facility: [facility] Address: [address] [place] [address] Performed By: #### 5 7021-8 ####[facility] [id number] [place] [address] [place] Immature granulocytes (Bld) [#/Vol] 0.06 10*3/uL Normal <0.10 [facility] Comment on above: Order Comment: Speci men Type: BLOOD SPECIMENOrdering Facility: [facility] Address: [address] [place] [address] Performed By: #### 5 7021-8 ####[facility]OSPITALNCLI [id number] [place] [address] [place] Immature granulocytes/100 WBC (Bld) 0.7 % Normal [facility] Comment on above: Order Comment: Speci men Type: BLOOD SPECIMENOrdering Facility: [facility] Address: [address] [place] [address] Performed By: #### 5 7021-8 ####[facility] ELLENBREMENNCTAINA [id number] [place] [address] [place] Lymphocytes (Bld) [#/Vol] 1.15 10*3/uL Normal 1.00-4.00 [facility] Comment on above: Order Comment: Speci men Type: BLOOD SPECIMENOrdering Facility: [facility] Address: [address] [place] [address] Performed By: #### 5 7021-8 ####[facility]ITALNCK[facility] [id number] [place] [address] [place] Lymphocytes/100 WBC (Bld) 14.1 % Normal [facility] Comment on above: Order Comment: Speci men Type: BLOOD SPECIMENOrdering Facility: [facility] Address: [address] [place] [address] Performed By: #### 5 7021-8 ####[facility] [id number] [place] [address] [place] MCH (RBC) [Entitic mass] 28.3 pg Normal 26.0-34.0 [facility] Comment on above: Order Comment: Speci men Type: BLOOD SPECIMENOrdering Facility: [facility] Address: [address] [place] [address] Performed By: #### 5 7021-8 ####[facility]ITALNCLIA [id number] [place] [address] [place] MCHC (RBC) [Mass/Vol] 32.4 g/dL Normal 30.5-36.0 [facility] Comment on above: Order Comment: Speci men Type: BLOOD SPECIMENOrdering Facility: [facility] Address: [address] [place] [address] Performed By: #### 5 7021-8 ####[facility] MILLWNCLIA [id number] [place] [address] [place] MCV (RBC) [Entitic vol] 87.4 fL Normal 80.0-100.0 [facility] Comment on above: Order Comment: Speci men Type: BLOOD SPECIMENOrdering Facility: [facility] Address: [address] [place] [address] Performed By: #### 5 7021-8 ####[facility]ITALNCLIA [id number] [place] [address] [place] Monocytes (Bld) [#/Vol] 0.62 10*3/uL Normal <0.87 [facility] Comment on above: Order Comment: Speci men Type: BLOOD SPECIMENOrdering Facility: [facility] Address: [address] [place] [address] Performed By: #### 5 7021-8 ####[facility]ITALNCLIA [id number] [place] [address] [place] Monocytes/100 WBC (Bld) 7.6 % Normal [facility] Comment on above: Order Comment: Speci men Type: BLOOD SPECIMENOrdering Facility: [facility] Address: [address] [place] [address] Performed By: #### 5 7021-8 ####[facility]ITALNCLIA [id number] [place] [address] [place] Neutrophils (Bld) [#/Vol] 5.86 10*3/uL Normal 1.45-7.50 [facility] Comment on above: Order Comment: Speci men Type: BLOOD SPECIMENOrdering Facility: [facility] Address: [address] [place] [address] Performed By: #### 5 7021-8 ####[facility] CENTERLIA [id number] [place] [address] [place] Neutrophils/100 WBC (Bld) 72.2 % Normal [facility] Comment on above: Order Comment: Speci men Type: BLOOD SPECIMENOrdering Facility: [facility] Address: [address] [place] [address] Performed By: #### 5 7021-8 ####[facility]OSPITALKAVITAMingo [id number] [place] [address] [place] Nucleated RBC (Bld) [#/Vol] 10*3/uL Normal <0.01 [facility] Comment on above: Order Comment: Speci men Type: BLOOD SPECIMENOrdering Facility: [facility] Address: [address] [place] [address] Performed By: #### 5 7021-8 ####[facility]PITALKAVITAMingo [id number] [place] [address] [place] Nucleated RBC/100 WBC (Bld) [Ratio] 0.0 /100 WBC Normal [facility] Comment on above: Order Comment: Speci men Type: BLOOD SPECIMENOrdering Facility: [facility] Address: [address] [place] [address] Performed By: #### 5 7021-8 ####[facility]OSPITALNCLI [id number] [place] [address] [place] Platelet mean volume (Bld) [Entitic vol] 9.8 fL Normal 9.0-12.7 [facility] Comment on above: Order Comment: Speci men Type: BLOOD SPECIMENOrdering Facility: [facility] Address: [address] [place] [address] Performed By: #### 5 7021-8 ####[facility]PITALNCLIA [id number] [place] [address] [place] Platelets (Bld) [#/Vol] 162 10*3/uL Normal 150-400 [facility] Comment on above: Order Comment: Speci men Type: BLOOD SPECIMENOrdering Facility: [facility] Address: [address] [place] [address] Performed By: #### 5 7021-8 ####[facility] ELLENBREMENNCLIA [id number] [place] [address] [place] RBC (Bld) [#/Vol] 3.74 10*6/uL Low 4.20-6.00 [facility] Comment on above: Order Comment: Speci men Type: BLOOD SPECIMENOrdering Facility: [facility] Address: [address] [place] [address] Performed By: #### 5 7021-8 ####[facility]ITALNCLIA [id number] [place] [address] [place] WBC (Bld) [#/Vol] 8.13 10*3/uL Normal 3.70-11.00 [facility] Comment on above: Order Comment: Speci men Type: BLOOD SPECIMENOrdering Facility: [facility] Address: [address] [place] [address] Performed By: #### 5 7021-8 ####[facility]ITALNCLIA [id number] [place] [address] [place] CNOVSPon 10-04-2024 CNOVSP Normal [facility] CNPNon 10-04-2024 CNPN Normal [facility] Ferritin SerPl-mCncon 2024 Ferritin [Mass/Vol] 421.0 ng/mL Normal 30.3-565.7 [facility] Comment on above: Order Comment: Speci men Type: BLOOD SPECIMENOrdering Facility: [facility] Address: [address] [place] [address] Performed By: #### 5 0190-8, 2276-4 ####[facility] LABCLIA [id number] [place] [address] [place] Iron and Iron binding capaci ty panelon 10-04-2024 Iron [Mass/Vol] 49 ug/dL Normal 41-186 [facility] Comment on above: Order Comment: Speci men Type: BLOOD SPECIMENOrdering Facility: [facility] Address: [address] [place] [address] Performed By: #### 5 0190-8, 2276-4 ####[facility] LABIA [id number] [address] [place] Iron binding capacity [Mass/Vol] 212 ug/dL Low 232-386 [facility] Comment on above: Order Comment: Speci men Type: BLOOD SPECIMENOrdering Facility: [facility] Address: [address] [place] [address] Performed By: #### 5 0190-8, 6-4 ####[facility] [id number] [place] [address] [place] Iron/TIBC [Molar ratio] 23.1 % Normal 15.0-57.0 [facility] Comment on above: Order Comment: Speci men Type: BLOOD SPECIMENOrdering Facility: [facility] Address: [address] [place] [address] Performed By: #### 5 0190-8, 6-4 ####[facility] [id number] [place] [address] [place] CNOVon 09-25-2024 CNOV Normal [facility] Basic metabolic 2000 panelon 09-18-2024 Anion gap [Moles/Vol] 12 mmol/L Normal 8-15 [facility] Comment on above: Order Comment: Speci men Type: BLOOD SPECIMENOrdering Facility: [facility] Address: [address] [place] [address] Performed By: #### 2 4321-2 ####[facility] LABST[facility] [id number] [place] [address] [place] Calcium [Mass/Vol] 9.1 mg/dL Normal 8.5-10.2 [facility] Comment on above: Order Comment: Speci men Type: BLOOD SPECIMENOrdering Facility: [facility] Address: [address] [place] [address] Performed By: #### 2 4321-2 ####[facility] LABCLIA [id number] [facility] [place] [id number] [place] Chloride [Moles/Vol] 101 mmol/L Normal 98-107 [facility] Comment on above: Order Comment: Speci men Type: BLOOD SPECIMENOrdering Facility: [facility] Address: [address] [place] [address] Performed By: #### 2 4321-2 ####[facility] [facility] LABCLIA [id number] [place] [address] [place] CO2 [Moles/Vol] 24 mmol/L Normal 22-30 [facility] Comment on above: Order Comment: Speci men Type: BLOOD SPECIMENOrdering Facility: [facility] Address: [address] [place] [address] Performed By: #### 2 4321-2 ####[facility] LABCLIA [id number] [place] [address] [place] Creatinine [Mass/Vol] 1.71 mg/dL High 0.73-1.22 [facility] Comment on above: Order Comment: Speci men Type: BLOOD SPECIMENOrdering Facility: [facility] Address: [address] [place] [address] Performed By: #### 2 4321-2 ####[facility] LABCLIA [id number] [place] [id number] [place] Creatinine and Glomerular filtration rate.predicted panel (S/P/Bld) 39 mL/min/1.73m??? Low >=60 [facility] Comment on above: Order Comment: Speci men Type: BLOOD SPECIMENOrdering Facility: [facility] Address: [address] [place] [address] Result Comment: Lady mated Glomerular Filtration Rate [...] actual GFR. Performed By: #### 2 4321-2 ####[facility] LABCLIA [id number] [place] [address] [place] Glucose [Mass/Vol] 171 mg/dL High 74-99 [facility] Comment on above: Order Comment: Specshaista quiroz Type: BLOOD SPECIMENOrdering Facility: [facility] Address: [address] [place] [address] Result Comment: The [place] Diabetes Association (ADA) provides guidance for cutoff [...] Standards of Medical Care in Diabetes 2016, [place] Diabetes Association. Diabetes Care. 2016.39(Suppl 1). Performed By: #### 2 4321-2 ####[facility] LABCLIA [id number] [place] [address] [place] Potassium [Moles/Vol] 4.4 mmol/L Normal 3.7-5.1 [facility] Comment on above: Order Comment: Patricia quiroz Type: BLOOD SPECIMENOrdering Facility: [facility] Address: [address] [place] [address] Performed By: #### 2 4321-2 ####[facility] LABCLIA [id number] [place] [id number] [place] Sodium [Moles/Vol] 137 mmol/L Normal 136-144 [facility] Comment on above: Order Comment: Agustinai men Type: BLOOD SPECIMENOrdering Facility: [facility] Address: [address] [place] [address] Performed By: #### 2 4321-2 ####[facility] LABIA [id number] [place] [address] [place] Urea nitrogen [Mass/Vol] 25 mg/dL High 9-24 [facility] Comment on above: Order Comment: Agustinai men Type: BLOOD SPECIMENOrdering Facility: [facility] Address: [address] [place] [address] Performed By: #### 2 4321-2 ####[facility] [id number] [place] [address] [place] HbA1c (Bld)on 09-18-2024 Average glucose Estimated from glycated hemoglobin (Bld) [Mass/Vol] 169 mg/dL Normal [facility] Comment on above: Order Comment: Agustinai men Type: BLOOD SPECIMENOrdering Facility: [facility] Address: [address] [place] [address] Result Comment: eAG: (Estimated average glucose) is a calculated value from HgbA1c and is airport representative of the average blood glucose level in the last 2-3 month period. Performed By: #### 5 5454-3 ####[facility] [id number] [place] [address] [place] HbA1c (Bld) [Mass fraction] 7.5 % High 4.3-5.6 [facility] Comment on above: Order Comment: Agustinai men Type: BLOOD SPECIMENOrdering Facility: [facility] Address: [address] [place] [address] Result Comment: [place] Diabetes Association guidelines indicate that patients with HgbA1c in the range 5.7-6.4% are at increased risk for development of diabetes, and intervention by lifestyle modification may be beneficial. HgbA1c greater or equal to 6.5% is considered diagnostic of diabetes. Performed By: #### 5 5454-3 ####[facility] LABCLIA [id number] [place] [address] [place] CBC W Auto Differential pane l (Bld)on 09-04-2024 Basophils (Bld) [#/Vol] 0.03 10*3/uL Normal <0.11 [facility] Comment on above: Order Comment: Speci men Type: BLOOD SPECIMENOrdering Facility: [facility] Address: [address] [place] [address] Performed By: #### 5 7021-8 ####[facility] [id number] [place] [address] [place] Basophils/100 WBC (Bld) 0.4 % Normal [facility] Comment on above: Order Comment: Speci men Type: BLOOD SPECIMENOrdering Facility: [facility] Address: [address] [place] [address] Performed By: #### 5 7021-8 ####[facility] [id number] [place] [address] [place] Differential cell count method Nom (Bld) Auto Normal [facility] Comment on above: Order Comment: Speci men Type: BLOOD SPECIMENOrdering Facility: [facility] Address: [address] [place] [address] Performed By: #### 5 7021-8 ####[facility] [id number] [place] [address] [place] Eosinophils (Bld) [#/Vol] 0.32 10*3/uL Normal <0.46 [facility] Comment on above: Order Comment: Speci men Type: BLOOD SPECIMENOrdering Facility: [facility] Address: [address] [place] [address] Performed By: #### 5 7021-8 ####[facility] ELLENBREMENKAVITALIA [id number] [place] [address] [place] Eosinophils/100 WBC (Bld) 4.2 % Normal [facility] Comment on above: Order Comment: Speci men Type: BLOOD SPECIMENOrdering Facility: [facility] Address: [address] [place] [address] Performed By: #### 5 7021-8 ####[facility]ENTERLIA [id number] [place] [address] [place] Erythrocyte distribution width (RBC) [Ratio] 14.4 % Normal 11.5-15.0 [facility] Comment on above: Order Comment: Speci men Type: BLOOD SPECIMENOrdering Facility: [facility] Address: [address] [place] [address] Performed By: #### 5 7021-8 ####[facility] [id number] [address] [place] Hematocrit (Bld) [Volume fraction] 29.9 % Low 39.0-51.0 [facility] Comment on above: Order Comment: Speci men Type: BLOOD SPECIMENOrdering Facility: [facility] Address: [address] [place] [address] Performed By: #### 5 7021-8 ####[facility] CENTERLIA [id number] [place] [address] [place] Hemoglobin (Bld) [Mass/Vol] 9.8 g/dL Low 13.0-17.0 [facility] Comment on above: Order Comment: Speci men Type: BLOOD SPECIMENOrdering Facility: [facility] Address: [address] [place] [address] Performed By: #### 5 7021-8 ####[facility]ITALNCLIA [id number] [place] [address] [place] Immature granulocytes (Bld) [#/Vol] 0.03 10*3/uL Normal <0.10 [facility] Comment on above: Order Comment: Speci men Type: BLOOD SPECIMENOrdering Facility: [facility] Address: [address] [place] [address] Performed By: #### 5 7021-8 ####[facility] CENTERLIA [id number] [place] [address] [place] [facility] Immature granulocytes/100 WBC (Bld) 0.4 % Normal [facility] Comment on above: Order Comment: Speci men Type: BLOOD SPECIMENOrdering Facility: [facility] Address: [address] [place] [address] Performed By: #### 5 7021-8 ####[facility] [id number] [place] [address] [place] Lymphocytes (Bld) [#/Vol] 0.96 10*3/uL Low 1.00-4.00 [facility] Comment on above: Order Comment: Speci men Type: BLOOD SPECIMENOrdering Facility: [facility] Address: [address] [place] [address] Performed By: #### 5 7021-8 ####[facility] [id number] [address] [place] Lymphocytes/100 WBC (Bld) 12.7 % Normal [facility] Comment on above: Order Comment: Speci men Type: BLOOD SPECIMENOrdering Facility: [facility] Address: [address] [place] [address] Performed By: #### 5 7021-8 ####[facility] [id number] [place] [address] [place] MCH (RBC) [Entitic mass] 28.7 pg Normal 26.0-34.0 [facility] Comment on above: Order Comment: Speci men Type: BLOOD SPECIMENOrdering Facility: [facility] Address: [address] [place] [address] Performed By: #### 5 7021-8 ####[facility] ELLENREYNA [id number] [place] [address] [place] MCHC (RBC) [Mass/Vol] 32.8 g/dL Normal 30.5-36.0 [facility] Comment on above: Order Comment: Speci men Type: BLOOD SPECIMENOrdering Facility: [facility] Address: [address] [place] [address] Performed By: #### 5 7021-8 ####[facility] ELLENBREMENJAMAL [id number] [place] [address] [place] MCV (RBC) [Entitic vol] 87.4 fL Normal 80.0-100.0 [facility] Comment on above: Order Comment: Speci men Type: BLOOD SPECIMENOrdering Facility: [facility] Address: [address] [place] [address] Performed By: #### 5 7021-8 ####[facility] SPRINGSMingo [id number] [place] [address] [place] Monocytes (Bld) [#/Vol] 0.48 10*3/uL Normal <0.87 [facility] Comment on above: Order Comment: Speci men Type: BLOOD SPECIMENOrdering Facility: [facility] Address: [address] [place] [address] Performed By: #### 5 7021-8 ####[facility] [id number] [place] [address] [place] Monocytes/100 WBC (Bld) 6.4 % Normal [facility] Comment on above: Order Comment: Speci men Type: BLOOD SPECIMENOrdering Facility: [facility] Address: [address] [place] [address] Performed By: #### 5 7021-8 ####[facility] MILLTOWNCLIA [id number] [place] [address] [place] Neutrophils (Bld) [#/Vol] 5.72 10*3/uL Normal 1.45-7.50 [facility] Comment on above: Order Comment: Speci men Type: BLOOD SPECIMENOrdering Facility: [facility] Address: [address] [place] [address] Performed By: #### 5 7021-8 ####[facility] CENTERLIA [id number] [place] [address] [place] Neutrophils/100 WBC (Bld) 75.9 % Normal [facility] Comment on above: Order Comment: Speci men Type: BLOOD SPECIMENOrdering Facility: [facility] Address: [address] [place] [address] Performed By: #### 5 7021-8 ####[facility]ENTERLIA [id number] [place] [address] [place] Nucleated RBC (Bld) [#/Vol] 10*3/uL Normal <0.01 [facility] Comment on above: Order Comment: Speci men Type: BLOOD SPECIMENOrdering Facility: [facility] Address: [address] [place] [address] Performed By: #### 5 7021-8 ####[facility]ENTERLIA [id number] [place] [address] [place] Nucleated RBC/100 WBC (Bld) [Ratio] 0.0 /100 WBC Normal [facility] Comment on above: Order Comment: Speci men Type: BLOOD SPECIMENOrdering Facility: [facility] Address: [address] [place] [address] Performed By: #### 5 7021-8 ####[facility]OSPITALNCLIA [id number] [place] [address] [place] Platelet mean volume (Bld) [Entitic vol] 9.6 fL Normal 9.0-12.7 [facility] Comment on above: Order Comment: Speci men Type: BLOOD SPECIMENOrdering Facility: [facility] Address: [address] [place] [address] Performed By: #### 5 7021-8 ####[facility]ITALNCLIA [id number] [place] [address] [place] Platelets (Bld) [#/Vol] 157 10*3/uL Normal 150-400 [facility] Comment on above: Order Comment: Speci men Type: BLOOD SPECIMENOrdering Facility: [facility] Address: [address] [place] [address] Performed By: #### 5 7021-8 ####[facility]OSPITALNCK[facility] [id number] [place] [address] [place] RBC (Bld) [#/Vol] 3.42 10*6/uL Low 4.20-6.00 [facility] Comment on above: Order Comment: Speci men Type: BLOOD SPECIMENOrdering Facility: [facility] Address: [address] [place] [address] Performed By: #### 5 7021-8 ####[facility] HOSPITALNCA [id number] [place] [address] [place] WBC (Bld) [#/Vol] 7.54 10*3/uL Normal 3.70-11.00 [facility] Comment on above: Order Comment: Speci men Type: BLOOD SPECIMENOrdering Facility: [facility] Address: [address] [place] [address] Performed By: #### 5 7021-8 ####[facility] HOSPITALNCLI [id number] [place] [address] [place] 12 Lead EKGon 09-03-2024 12 Lead EKG Normal [facility] Absolute lymphocyte countOrd ered By: Didier Encarnacion on 09-03-2024 Lymphocytes Auto (Unsp spec) [#/Vol] 1.22 10*3/uL 0.83-4.51 [facility] Absolute neutrophil countOrd ered By: Didier Encarnacion on 09-03-2024 Neutrophils (Bld) [#/Vol] 7.2 10*3/uL 2.0-7.7 [facility] Anion gap in Serum or Plasma Ordered By: Didier Encarnacion on 09-03-2024 Anion gap [Moles/Vol] 11 mmol/L 5- [facility] Automated lymphocyte count a s percentage of total leukocytesOrdered By: Didier Encarnacion on 09-03-2024 Lymphocytes/100 WBC Auto (Unsp spec) 13.0 % Low - [facility] BUN/creatinine ratioOrdered By: Didier Encarnacion on 09-03-2024 Urea nitrogen/Creatinine [Mass ratio] 14.5 mg/mg - [facility] Basic Metabolic Profile (BMP )on 09-03-2024 BUN/CRE 14.5 RATIO Normal - [facility] Comment on above: Performed By: #### L 100.0100, L501.4021, L500.2500 ####[facility] [address] [place], [address] Calcium [Mass/Vol] 8.9 mg/dL Normal 7.6-11.0 [facility] Comment on above: Performed By: #### L 100.0100, L501.4021, L500.2500 ####[facility] [address] [place], [address] Chloride [Moles/Vol] 103 mmol/L Normal 98-108 [facility] Comment on above: Performed By: #### L 100.0100, L501.4021, L500.2500 ####[facility] [address] [place], [address] CO2 [Moles/Vol] 25.8 mmol/L Normal 21.0-32.0 [facility] Comment on above: Performed By: #### L 100.0100, L501.4021, L500.2500 ####[facility] [address] [place], [address] Creatinine [Mass/Vol] 1.86 mg/dL High 0.70-1.20 [facility] Comment on above: Performed By: #### L 100.0100, L501.4021, L500.2500 ####[facility] [address] [place], [address] ECRCL 41.21 ml/min Low 50-250 [facility] Comment on above: Performed By: #### L 100.0100, L501.4021, L500.2500 ####[facility] [address] [place], [address] GAP 11 Normal 5-15 [facility] Comment on above: Performed By: #### L 100.0100, L501.4021, L500.2500 ####[facility] [address] [place], [address] GFR/1.73 sq M.predicted among non-blacks MDRD (S/P/Bld) [Vol rate/Area] 35 mL/min/{1.73_m2} Low >60 [facility] Comment on above: Result Comment: mL/m in/1.73m2 CKD-EPI Creatinine Equation (2020) Performed By: #### L 100.0100, L501.4021, L500.2500 ####[facility] [address] [place], [address] Glucose [Mass/Vol] 186 mg/dL High 70-99 [facility] Comment on above: Performed By: #### L 100.0100, L501.4021, L500.2500 ####[facility] [address] [place], [address] Potassium [Moles/Vol] 4.8 mmol/L Normal 3.3-5.1 [facility] Comment on above: Result Comment: Hemo lysis present, Results??could be affected.?? Performed By: #### L 100.0100, L501.4021, L500.2500 ####[facility] [address] [place], [address] Sodium [Moles/Vol] 140 mmol/L Normal 133-145 [facility] Comment on above: Performed By: #### L 100.0100, L501.4021, L500.2500 ####[facility] [address] [place], [address] Urea nitrogen [Mass/Vol] 27 mg/dL High 4-19 [facility] Comment on above: Performed By: #### L 100.0100, L501.4021, L500.2500 ####[facility] [address] [place], [address] Basophil percentageOrdered B y: Didier Encarnacion on 09-03-2024 Basophils/100 WBC (Bld) 0.4 % 0-1 [facility] CBC W/Diff, Automatedon 08-09 Absolute Lymph 1.22 X10 3/uL Normal 0.83-4.51 [facility] Comment on above: Performed By: #### L 100.0100, L501.4021, L500.2500 ####[facility] [address] [place], [address] Absolute Neut 7.2 X10 3/uL Normal 2.0-7.7 [facility] Comment on above: Performed By: #### L 100.0100, L501.4021, L500.2500 ####[facility] [address] [place], [address] Basophils/100 WBC (Bld) 0.4 % Normal 0-1 [facility] Comment on above: Performed By: #### L 100.0100, L501.4021, L500.2500 ####[facility] [address] [place], [address] Eosinophils/100 WBC (Bld) 3.1 % Normal 0-5 [facility] Comment on above: Performed By: #### L 100.0100, L501.4021, L500.2500 ####[facility] [address] [place], [address] Erythrocyte distribution width (RBC) [Ratio] 14.3 % Normal 11.6-14.6 [facility] Comment on above: Performed By: #### L 100.0100, L501.4021, L500.2500 ####[facility] [address] [place], [address] Hematocrit (Bld) [Volume fraction] 31.7 % Low 40-54 [facility] Comment on above: Performed By: #### L 100.0100, L501.4021, L500.2500 ####[facility] [address] [place], [address] Hemoglobin (Bld) [Mass/Vol] 10.4 g/dL Low 13.0-16.5 [facility] Comment on above: Performed By: #### L 100.0100, L501.4021, L500.2500 ####[facility] [address] [place], [address] IG% 0.400 Normal 0.0-0.9 [facility] Comment on above: Result Comment: IG% - Immature Granulocytes (promyelocytes, myelocytes andmetamyelocytes) > 1% indicates that a LEFT SHIFT is Present. Performed By: #### L 100.0100, L501.4021, L500.2500 ####[facility] [address] [place], [address] Lymphocytes/100 WBC (Bld) 13.0 % Low 19-41 [facility] Comment on above: Performed By: #### L 100.0100, L501.4021, L500.2500 ####[facility] [address] [place], [address] MCH (RBC) [Entitic mass] 29.1 pg Normal 27.0-32.0 [facility] Comment on above: Performed By: #### L 100.0100, L501.4021, L500.2500 ####[facility] [address] [place], [address] MCHC (RBC) [Mass/Vol] 32.8 g/dL Normal 32-36 [facility] Comment on above: Performed By: #### L 100.0100, L501.4021, L500.2500 ####[facility] [address] [place], [address] MCV (RBC) [Entitic vol] 88.5 fL Normal 80-94 [facility] Comment on above: Performed By: #### L 100.0100, L501.4021, L500.2500 ####[facility] [address] [place], [address] Monocytes/100 WBC (Bld) 6.8 % Normal 0-10 [facility] Comment on above: Performed By: #### L 100.0100, L501.4021, L500.2500 ####[facility] [address] [place], [address] Neutrophils/100 WBC (Bld) 76.3 % High 47-70 [facility] Comment on above: Performed By: #### L 100.0100, L501.4021, L500.2500 ####[facility] [address] [place], [address] Nucleated RBC (Bld) [#/Vol] 0 10*3/uL Normal 0-5 [facility] Comment on above: Performed By: #### L 100.0100, L501.4021, L500.2500 ####[facility] [address] [place], [address] Platelet mean volume (Bld) [Entitic vol] 11.4 fL Normal 6.2-12.0 [facility] Comment on above: Performed By: #### L 100.0100, L501.4021, L500.2500 ####[facility] [address] [place], [address] Platelets (Bld) [#/Vol] 171 10*3/uL Normal 150-450 [facility] Comment on above: Performed By: #### L 100.0100, L501.4021, L500.2500 ####[facility] [address] [place], [address] RBC (Bld) [#/Vol] 3.58 10*6/uL Low 4.6-6.2 [facility] Comment on above: Performed By: #### L 100.0100, L501.4021, L500.2500 ####[facility] [address] [place], [address] RDW SD 45.8 fl High 35.1-43.9 [facility] Comment on above: Performed By: #### L 100.0100, L501.4021, L500.2500 ####[facility] [address] [place], [address] WBC (Bld) [#/Vol] 9.4 10*3/uL Normal 4.4-11.0 [facility] Comment on above: Performed By: #### L 100.0100, L501.4021, L500.2500 ####[facility] [address] [place], [address] Carbon dioxide, total [Moles /volume] in Central venous bloodOrdered By: Didier Encarnacion on 09-03-2024 CO2 [Moles/Vol] 25.8 mmol/L 21.0-32.0 [facility] Chest 1 View (Portable)on Chest 1 View (Portable) Normal [facility] Chloride assayOrdered By: Lazaro Encarnacion on 09-03-2024 Chloride [Moles/Vol] 103 mmol/L 98-108 [facility] Emergency Department Summary on 09-03-2024 Emergency Department Summary Normal [facility] Eosinophil percentageOrdered By: Didier Encarnacion on 09-03-2024 Eosinophils/100 WBC (Bld) 3.1 % 0-5 [facility] Erythrocyte distribution wid th ratioOrdered By: Didier Encarnacion on 09-03-2024 Erythrocyte distribution width (RBC) [Ratio] 14.3 % 11.6-14.6 [facility] Erythrocyte distribution wid th standard deviationOrdered By: Didier Encarnacion on 09-03-2024 Erythrocyte distribution width (RBC) [Ratio] 45.8 fl High 35.1-43.9 [facility] Glomerular filtration rate ( GFR) estimation/1.73 sq m using serum, plasma, or whole bOrdered By: Didier Encarnacion on 09-03-2024 GFR/1.73 sq M.predicted among non-blacks MDRD (S/P/Bld) [Vol rate/Area] 35 mL/min/{1.73_m2} Low >60 [facility] Comment on above: mL/min/1.73m2 CKD-EP I Creatinine Equation (2020) Hematocrit Auto (Bld) [Volum e fraction]Ordered By: Didier Encarnacion on 09-03-2024 Hematocrit (Bld) [Volume fraction] 31.7 % Low 40-54 [facility] Hemoglobin measurementOrdere d By: Didier Encarnacion on 09-03-2024 Hemoglobin (Bld) [Mass/Vol] 10.4 g/dL Low 13.0-16.5 [facility] Immature granulocytes/100 WB C Auto (Bld)Ordered By: Didier Encarnacion on 09-03-2024 Immature granulocytes/100 WBC (Bld) 0.400 % 0.0-0.9 [facility] Comment on above: IG% - Immature Granu locytes (promyelocytes, myelocytes and metamyelocytes) > 1% indicates that a LEFT SHIFT is Present. L499.0042on 09-03-2024 Trop T High Sen 51 ng/L High <=22 [facility] Comment on above: Performed By: #### L 499.0042 ####[facility] [address] [place], [address] L499.0043on 09-03-2024 Trop T High Sen Normal <=22 [facility] Comment on above: Result Comment: Canc elled via OM: Order cancelled - Patient discharged Performed By: #### L 499.0043 ####[facility] [address] [place], [address] L501.4021on 09-03-2024 Trop T High Sen 51 ng/L High <=22 [facility] Comment on above: Performed By: #### L 100.0100, L501.4021, L500.2500 ####[facility] [address] [place], [address] MCV (mean corpuscular volume ) determinationOrdered By: Didier Encarnacion on 09-03-2024 MCV (RBC) [Entitic vol] 88.5 fL 80-94 [facility] Mean corpuscular hemoglobin (MCH) determinationOrdered By: Didier Encarnacion on 09-03-2024 MCH (RBC) [Entitic mass] 29.1 pg 27.0-32.0 [facility] Mean corpuscular hemoglobin concentration (MCHC) determinationOrdered By: Didier Encarnacion on 09-03-2024 MCHC (RBC) [Mass/Vol] 32.8 g/dL 32-36 [facility] Mean platelet volume determi nationOrdered By: Didier Encarnacion on 09-03-2024 Platelet mean volume (Bld) [Entitic vol] 11.4 fL 6.2-12.0 [facility] Monocyte percentageOrdered B y: Didier Encarnacion on 09-03-2024 Monocytes/100 WBC (Bld) 6.8 % 0-10 [facility] Neutrophil percentageOrdered By: Didier Encarnacion on 09-03-2024 Neutrophils/100 WBC (Bld) 76.3 % High 47-70 [facility] Nucleated red blood cell per centageOrdered By: Didier Encarnacion on 09-03-2024 Nucleated RBC/100 WBC (Bld) [Ratio] 0 % 0-5 [facility] Platelet countOrdered By: Lazaro saleh Alysha on 09-03-2024 Platelets (Bld) [#/Vol] 171 10*3/uL 150-450 [facility] Potassium measurement (mass/ volume)Ordered By: Didier Encarnacion on 09-03-2024 Potassium (Unsp spec) [Mass/Vol] 4.8 mmol/L 3.3-5.1 [facility] Comment on above: Hemolysis present, R esults could be affected. RBC Auto (Bld) [#/Vol]Ordere d By: Didier Encarnacion on 09-03-2024 RBC (Bld) [#/Vol] 3.58 10*6/uL Low 4.6-6.2 [facility] Serum creatinine measurement (mass/volume)Ordered By: Didier Encarnacion on 09-03-2024 Creatinine [Mass/Vol] 1.86 mg/dL High 0.70-1.20 [facility] Serum glucose measurement (m ass/volume)Ordered By: Didier Encarnacion on 09-03-2024 Glucose [Mass/Vol] 186 mg/dL High 70-99 [facility] Serum or plasma calcium pedrito urement (mass/volume)Ordered By: Didier Encarnacion on 09-03-2024 Calcium [Mass/Vol] 8.9 mg/dL 7.6-11.0 [facility] Serum or plasma urea nitroge n measurement (mass/volume)Ordered By: Didier Encarnacion on 09-03-2024 Urea nitrogen [Mass/Vol] 27 mg/dL High 4-19 [facility] Sodium levelOrdered By: Didier Encarnacion on 09-03-2024 Sodium [Moles/Vol] 140 mmol/L 133-145 [facility] Troponin T.cardiac [Mass/vol ume] in Serum or Plasma by High sensitivity methodOrdered By: Didier Encarnacion on 09-03-2024 Troponin T.cardiac High sensitivity method [Mass/Vol] 51 ng/L High <22 [facility] Troponin T.cardiac High sensitivity method [Mass/Vol] 51 ng/L High <22 [facility] White blood cell (WBC) count Ordered By: Didier Encarnacion on 09-03-2024 WBC (Bld) [#/Vol] 9.4 10*3/uL 4.4-11.0 [facility] Urine Cultureon 09-01-2024 URC Culture exhibits no growth. Normal [facility] Comment on above: Performed By: #### M 100.2200, L400.0001 ####[facility] [address] [place], [place], [id number] Bilirubin Test strip Ql (U)O rdered By: Alva Patel on 08-31-2024 Bilirubin Ql (U) Negative Negative [facility] Ketones Test strip Ql (U)Ord ered By: Alva Patel on 08-31-2024 Ketones Ql (U) Negative Negative [facility] Microscopic analysis of urin e for red blood cells (RBC)Ordered By: Alva Patel on 08-31-2024 Microscopic analysis of urine for red blood cells (RBC) 0 SEEN /hpf 0-5 [facility] Mucus LM Ql (Urine sed)Order ed By: Alva Patel on 08-31-2024 Mucus Ql (Urine sed) 0 SEEN /hpf [facility] Nitrite Test strip Ql (U)Ord ered By: Alva Patel on 08-31-2024 Nitrite Ql (U) Negative Negative [facility] Protein Test strip Ql (U)Ord ered By: Alva Patel on 08-31-2024 Protein Ql (U) 100 mg/dl High Negative [facility] Squamous epithelial cells de tection in urine sediment by light microscopyOrdered By: Alva Patel on 08-31-2024 Epithelial cells.squamous LM Ql (Urine sed) 0 SEEN /hpf 0-5 [facility] Urinalysis, Completeon 08-31 WBC 0-5 SEEN Normal 0-5 [facility] Comment on above: Order Comment: Urine , Random Performed By: #### M 100.2200, L400.0001 ####[facility] [address] [place], [address] BACTERIA 0 SEEN Normal None Seen [facility] Comment on above: Order Comment: Urine , Random Performed By: #### M 100.2200, L400.0001 ####[facility] [address] [place], [address] EPI,SQUAMOUS 0 SEEN Normal 0-5 [facility] Comment on above: Order Comment: Urine , Random Performed By: #### M 100.2200, L400.0001 ####[facility] [address] [place], [address] Mucus Ql (Urine sed) 0 SEEN Normal [facility] Comment on above: Order Comment: Urine , Random Performed By: #### M 100.2200, L400.0001 ####[facility] [address] [place], [address] RBC 0 SEEN Normal 0-5 [facility] Comment on above: Order Comment: Urine , Random Performed By: #### M 100.2200, L400.0001 ####[facility] [address] [place], [address] Urine clarityOrdered By: Ganesh Patel on 08-31-2024 Clarity (U) Clear Clear [facility] Urine color determinationOrd ered By: Alva Patel on 08-31-2024 Color (U) Yellow Yellow [facility] Urine cultureOrdered By: Ganesh Patel on 08-31-2024 Bacteria identified Cx Nom (U) Culture exhibits no growth. [facility] Urine glucose detectionOrder ed By: Alva Patel on 08-31-2024 Glucose Ql (U) Normal mg/dl Normal [facility] Urine leukocyte esterase det ection by dipstickOrdered By: Alva Patel on 08-31-2024 Leukocyte esterase Test strip Ql (U) 25 /ul High Negative [facility] Urine pHOrdered By: Alva Patel on 08-31-2024 pH (U) 5.0 [pH] 5.0 - 8.0 [facility] Urine sediment bacteria coun t by microscopy (number/high power field)Ordered By: Alva Patel on 08-31-2024 Bacteria LM.HPF (Urine sed) [#/Area] 0 /[HPF] None Seen [facility] Urine specific gravity measu rementOrdered By: Alva Patel on 08-31-2024 Specific gravity (U) [Rel density] 1.015 1.002-1.03 0 [facility] Urine urobilinogen measureme ntOrdered By: Alva Patel on 08-31-2024 Urobilinogen Ql (U) Normal mg/dl Normal [facility] White blood cell countOrdere d By: Alva Patel on 08-31-2024 White blood cell count 0-5 SEEN /hpf 0-5 [facility] Anion gap in Serum or Plasma Ordered By: Nakia Laboy on 08-25-2024 Anion gap [Moles/Vol] 11 mmol/L 5-15 [facility] BUN/creatinine ratioOrdered By: Nakia Laboy on 08-25-2024 Urea nitrogen/Creatinine [Mass ratio] 15.9 mg/mg 10-20 [facility] Carbon dioxide, total [Moles /volume] in Central venous bloodOrdered By: Nakia Laboy on 08-25-2024 CO2 [Moles/Vol] 22.7 mmol/L 21.0-32.0 [facility] Chloride assayOrdered By: Dianna Laboy on 08-25-2024 Chloride [Moles/Vol] 103 mmol/L 98-108 [facility] Glomerular filtration rate ( GFR) estimation/1.73 sq m using serum, plasma, or whole bOrdered By: Nakia Laboy on 08-25-2024 GFR/1.73 sq M.predicted among non-blacks MDRD (S/P/Bld) [Vol rate/Area] 33 mL/min/{1.73_m2} Low >60 [facility] Comment on above: mL/min/1.73m2 CKD-EP I Creatinine Equation (2020) PTHINon 08-25-2024 PTH 71 pg/mL High 11-61 [facility] Comment on above: Performed By: #### L 500.3600, L509.1000 ####[facility] [address] [place], [place], [id number] Potassium measurement (mass/ volume)Ordered By: Nakia Laboy on 08-25-2024 Potassium (Unsp spec) [Mass/Vol] 4.4 mmol/L 3.3-5.1 [facility] Renal Profileon 08-25-2024 Albumin [Mass/Vol] 3.3 g/dL Low 3.4-4.8 [facility] Comment on above: Performed By: #### L 500.3600, L509.1000 ####[facility] [address] [place], [address] BUN/CRE 15.9 RATIO Normal 10-20 [facility] Comment on above: Performed By: #### L 500.3600, L509.1000 ####[facility] [address] [place], [address] Calcium [Mass/Vol] 8.6 mg/dL Normal 7.6-11.0 [facility] Comment on above: Performed By: #### L 500.3600, L509.1000 ####[facility] [address] [place], [address] Chloride [Moles/Vol] 103 mmol/L Normal 98-108 [facility] Comment on above: Performed By: #### L 500.3600, L509.1000 ####[facility] [address] [place], [address] CO2 [Moles/Vol] 22.7 mmol/L Normal 21.0-32.0 [facility] Comment on above: Performed By: #### L 500.3600, L509.1000 ####[facility] [address] [place], [address] Creatinine [Mass/Vol] 1.96 mg/dL High 0.70-1.20 [facility] Comment on above: Performed By: #### L 500.3600, L509.1000 ####[facility] [address] [place], [address] GAP 11 Normal 5-15 [facility] Comment on above: Performed By: #### L 500.3600, L509.1000 ####[facility] [address] [place], [address] GFR/1.73 sq M.predicted among non-blacks MDRD (S/P/Bld) [Vol rate/Area] 33 mL/min/{1.73_m2} Low >60 [facility] Comment on above: Result Comment: mL/m in/1.73m2 CKD-EPI Creatinine Equation (2020) Performed By: #### L 500.3600, L509.1000 ####[facility] [address] [place], [address] Glucose [Mass/Vol] 224 mg/dL High 70-99 [facility] Comment on above: Performed By: #### L 500.3600, L509.1000 ####[facility] [address] [place], [address] Phosphate [Mass/Vol] 3.5 mg/dL Normal 2.7-4.5 [facility] Comment on above: Performed By: #### L 500.3600, L509.1000 ####[facility] [address] [place], [address] Potassium [Moles/Vol] 4.4 mmol/L Normal 3.3-5.1 [facility] Comment on above: Performed By: #### L 500.3600, L509.1000 ####[facility] [address] [place], [address] Sodium [Moles/Vol] 137 mmol/L Normal 133-145 [facility] Comment on above: Performed By: #### L 500.3600, L509.1000 ####[facility] [address] [place], [address] Urea nitrogen [Mass/Vol] 31 mg/dL High 4-19 [facility] Comment on above: Performed By: #### L 500.3600, L509.1000 ####[facility] [address] [place], [place], [address] Serum creatinine measurement (mass/volume)Ordered By: Nakia Laboy on 08-25-2024 Creatinine [Mass/Vol] 1.96 mg/dL High 0.70-1.20 [facility] Serum glucose measurement (m ass/volume)Ordered By: Nakia Laboy on 08-25-2024 Glucose [Mass/Vol] 224 mg/dL High 70-99 [facility] Serum or plasma albumin pedrito urement (mass/volume)Ordered By: Nakia Laboy on 08-25-2024 Albumin [Mass/Vol] 3.3 g/dL Low 3.4-4.8 [facility] Serum or plasma calcium pedrito urement (mass/volume)Ordered By: Nakia Laboy on 08-25-2024 Calcium [Mass/Vol] 8.6 mg/dL 7.6-11.0 [facility] Serum or plasma urea nitroge n measurement (mass/volume)Ordered By: Nakia Laboy on 08-25-2024 Urea nitrogen [Mass/Vol] 31 mg/dL High 4-19 [facility] Sodium levelOrdered By: Indira Laboy on 08-25-2024 Sodium [Moles/Vol] 137 mmol/L 133-145 [facility] Cardiology Visit Reporton Cardiology Visit Report Normal [facility] CBC W Auto Differential pane l (Bld)on 08-07-2024 Basophils (Bld) [#/Vol] 0.05 10*3/uL Normal <0.11 [facility] Comment on above: Order Comment: Speci men Type: BLOOD SPECIMENOrdering Facility: [facility] Address: [address] [place] [address] Performed By: #### 5 7021-8 ####[facility] [id number] [place] [id number] [place] Basophils/100 WBC (Bld) 0.6 % Normal [facility] Comment on above: Order Comment: Speci men Type: BLOOD SPECIMENOrdering Facility: [facility] Address: [address] [place] [address] Performed By: #### 5 7021-8 ####[facility]ITALNCLIA [id number] [place] [address] [place] Differential cell count method Nom (Bld) Auto Normal [facility] Comment on above: Order Comment: Speci men Type: BLOOD SPECIMENOrdering Facility: [facility] Address: [address] [place] [address] Performed By: #### 5 7021-8 ####[facility]ITALNCK[facility] [id number] [place] [address] [place] Eosinophils (Bld) [#/Vol] 0.33 10*3/uL Normal <0.46 [facility] Comment on above: Order Comment: Speci men Type: BLOOD SPECIMENOrdering Facility: [facility] Address: [address] [place] [address] Performed By: #### 5 7021-8 ####[facility]ITALNCLIA [id number] [place] [address] [place] Eosinophils/100 WBC (Bld) 3.9 % Normal [facility] Comment on above: Order Comment: Speci men Type: BLOOD SPECIMENOrdering Facility: [facility] Address: [address] [place] [address] Performed By: #### 5 7021-8 ####[facility]ITALNCLIA [id number] [place] [address] [place] Erythrocyte distribution width (RBC) [Ratio] 14.7 % Normal 11.5-15.0 [facility] Comment on above: Order Comment: Speci men Type: BLOOD SPECIMENOrdering Facility: [facility] Address: [address] [place] [address] Performed By: #### 5 7021-8 ####[facility]ITALNCLI [id number] [place] [address] [place] Hematocrit (Bld) [Volume fraction] 31.0 % Low 39.0-51.0 [facility] Comment on above: Order Comment: Speci men Type: BLOOD SPECIMENOrdering Facility: [facility] Address: [address] [place] [address] Performed By: #### 5 7021-8 ####[facility] ELLENBREMENJAMAL [id number] [place] [address] [place] Hemoglobin (Bld) [Mass/Vol] 10.1 g/dL Low 13.0-17.0 [facility] Comment on above: Order Comment: Speci men Type: BLOOD SPECIMENOrdering Facility: [facility] Address: [address] [place] [address] Performed By: #### 5 7021-8 ####[facility]OSPITALKAVITAMingo [id number] [place] [address] [place] Immature granulocytes (Bld) [#/Vol] 0.05 10*3/uL Normal <0.10 [facility] Comment on above: Order Comment: Speci men Type: BLOOD SPECIMENOrdering Facility: [facility] Address: [address] [place] [address] Performed By: #### 5 7021-8 ####[facility] HOSPITALJAMAL [id number] [place] [address] [place] Immature granulocytes/100 WBC (Bld) 0.6 % Normal [facility] Comment on above: Order Comment: Speci men Type: BLOOD SPECIMENOrdering Facility: [facility] Address: [address] [place] [address] Performed By: #### 5 7021-8 ####[facility]ITALNCLI [id number] [place] [address] [place] Lymphocytes (Bld) [#/Vol] 1.27 10*3/uL Normal 1.00-4.00 [facility] Comment on above: Order Comment: Speci men Type: BLOOD SPECIMENOrdering Facility: [facility] Address: [address] [place] [address] Performed By: #### 5 7021-8 ####[facility]ITALN[facility] [id number] [place] [address] [place] Lymphocytes/100 WBC (Bld) 14.9 % Normal [facility] Comment on above: Order Comment: Speci men Type: BLOOD SPECIMENOrdering Facility: [facility] Address: [address] [place] [address] Performed By: #### 5 7021-8 ####[facility]ITALN[facility] [id number] [place] [address] [place] MCH (RBC) [Entitic mass] 28.9 pg Normal 26.0-34.0 [facility] Comment on above: Order Comment: Speci men Type: BLOOD SPECIMENOrdering Facility: [facility] Address: [address] [place] [address] Performed By: #### 5 7021-8 ####[facility] [id number] [place] [address] [place] MCHC (RBC) [Mass/Vol] 32.6 g/dL Normal 30.5-36.0 [facility] Comment on above: Order Comment: Speci men Type: BLOOD SPECIMENOrdering Facility: [facility] Address: [address] [place] [address] Performed By: #### 5 7021-8 ####[facility]OSPITALNCLI [id number] [place] [address] [place] MCV (RBC) [Entitic vol] 88.6 fL Normal 80.0-100.0 [facility] Comment on above: Order Comment: Speci men Type: BLOOD SPECIMENOrdering Facility: [facility] Address: [address] [place] [address] Performed By: #### 5 7021-8 ####[facility] MILLTOWNCLIA [id number] [place] [address] [place] Monocytes (Bld) [#/Vol] 0.60 10*3/uL Normal <0.87 [facility] Comment on above: Order Comment: Speci men Type: BLOOD SPECIMENOrdering Facility: [facility] Address: [address] [place] [address] Performed By: #### 5 7021-8 ####[facility] MILLWNCLIA [id number] [place] [address] [place] Monocytes/100 WBC (Bld) 7.0 % Normal [facility] Comment on above: Order Comment: Speci men Type: BLOOD SPECIMENOrdering Facility: [facility] Address: [address] [place] [address] Performed By: #### 5 7021-8 ####[facility]ITALNCLIA [id number] [place] [address] [place] Neutrophils (Bld) [#/Vol] 6.22 10*3/uL Normal 1.45-7.50 [facility] Comment on above: Order Comment: Speci men Type: BLOOD SPECIMENOrdering Facility: [facility] Address: [address] [place] [address] Performed By: #### 5 7021-8 ####[facility] MILLTOWNCLIA [id number] [place] [address] [place] Neutrophils/100 WBC (Bld) 73.0 % Normal [facility] Comment on above: Order Comment: Speci men Type: BLOOD SPECIMENOrdering Facility: [facility] Address: [address] [place] [address] Performed By: #### 5 7021-8 ####[facility] MILLTOWNCLIA [id number] [place] [address] [place] Nucleated RBC (Bld) [#/Vol] 10*3/uL Normal <0.01 [facility] Comment on above: Order Comment: Speci men Type: BLOOD SPECIMENOrdering Facility: [facility] Address: [address] [place] [address] Performed By: #### 5 7021-8 ####[facility]OSPITALKAVITACOLTONMingo [id number] [place] [address] [place] Nucleated RBC/100 WBC (Bld) [Ratio] 0.0 /100 WBC Normal [facility] Comment on above: Order Comment: Speci men Type: BLOOD SPECIMENOrdering Facility: [facility] Address: [address] [place] [address] Performed By: #### 5 7021-8 ####[facility] HOSPITALNCMingo [id number] [place] [address] [place] Platelet mean volume (Bld) [Entitic vol] 9.6 fL Normal 9.0-12.7 [facility] Comment on above: Order Comment: Speci men Type: BLOOD SPECIMENOrdering Facility: [facility] Address: [address] [place] [address] Performed By: #### 5 7021-8 ####[facility] HOSPITALJAMAL [id number] [place] [address] [place] Platelets (Bld) [#/Vol] 152 10*3/uL Normal 150-400 [facility] Comment on above: Order Comment: Speci men Type: BLOOD SPECIMENOrdering Facility: [facility] Address: [address] [place] [address] Performed By: #### 5 7021-8 ####[facility]ITALNCLIA [id number] [place] [address] [place] RBC (Bld) [#/Vol] 3.50 10*6/uL Low 4.20-6.00 [facility] Comment on above: Order Comment: Speci men Type: BLOOD SPECIMENOrdering Facility: [facility] Address: [address] [place] [address] Performed By: #### 5 7021-8 ####[facility] FOR CHILDRENWKAVITALIA [id number] [place] [address] [place] WBC (Bld) [#/Vol] 8.52 10*3/uL Normal 3.70-11.00 [facility] Comment on above: Order Comment: Speci men Type: BLOOD SPECIMENOrdering Facility: [facility] Address: [address] [place] [address] Performed By: #### 5 7021-8 ####[facility] HOSPITALKAVITAA [id number] [place] [address] [place] CNPNon 07-24-2024 CNPN Normal [facility] CNPTOUTREACHon 07-13-2024 CNPTOUTREACH Normal [facility] CBC W Auto Differential pane l (Bld)on 07-10-2024 Basophils (Bld) [#/Vol] 0.04 10*3/uL Normal <0.11 [facility] Comment on above: Order Comment: Speci men Type: BLOOD SPECIMENOrdering Facility: [facility] Address: [address] [place] [address] Performed By: #### 5 7021-8 ####[facility]ITALNCLIA [id number] [place] [address] [place] Basophils/100 WBC (Bld) 0.5 % Normal [facility] Comment on above: Order Comment: Speci men Type: BLOOD SPECIMENOrdering Facility: [facility] Address: [address] [place] [address] Performed By: #### 5 7021-8 ####[facility] HOSPITALJAMAL [id number] [place] [id number] [place] Differential cell count method Nom (Bld) Auto Normal [facility] Comment on above: Order Comment: Speci men Type: BLOOD SPECIMENOrdering Facility: [facility] Address: [address] [place] [address] Performed By: #### 5 7021-8 ####[facility]ITALNCK[facility] [id number] [place] [address] [place] Eosinophils (Bld) [#/Vol] 0.33 10*3/uL Normal <0.46 [facility] Comment on above: Order Comment: Speci men Type: BLOOD SPECIMENOrdering Facility: [facility] Address: [address] [place] [address] Performed By: #### 5 7021-8 ####[facility] [id number] [place] [address] [place] Eosinophils/100 WBC (Bld) 3.9 % Normal [facility] Comment on above: Order Comment: Speci men Type: BLOOD SPECIMENOrdering Facility: [facility] Address: [address] [place] [address] Performed By: #### 5 7021-8 ####[facility]ITALN[facility] [id number] [place] [address] [place] Erythrocyte distribution width (RBC) [Ratio] 14.7 % Normal 11.5-15.0 [facility] Comment on above: Order Comment: Speci men Type: BLOOD SPECIMENOrdering Facility: [facility] Address: [address] [place] [address] Performed By: #### 5 7021-8 ####[facility] [id number] [place] [address] [place] Hematocrit (Bld) [Volume fraction] 30.5 % Low 39.0-51.0 [facility] Comment on above: Order Comment: Speci men Type: BLOOD SPECIMENOrdering Facility: [facility] Address: [address] [place] [address] Performed By: #### 5 7021-8 ####[facility] HOSPITALJAMAL [id number] [place] [address] [place] Hemoglobin (Bld) [Mass/Vol] 9.9 g/dL Low 13.0-17.0 [facility] Comment on above: Order Comment: Speci men Type: BLOOD SPECIMENOrdering Facility: [facility] Address: [address] [place] [address] Performed By: #### 5 7021-8 ####[facility]ITALN[facility] [id number] [place] [address] [place] Immature granulocytes (Bld) [#/Vol] 0.05 10*3/uL Normal <0.10 [facility] Comment on above: Order Comment: Speci men Type: BLOOD SPECIMENOrdering Facility: [facility] Address: [address] [place] [address] Performed By: #### 5 7021-8 ####[facility] SPRINGSA [id number] [place] [address] [place] Immature granulocytes/100 WBC (Bld) 0.6 % Normal [facility] Comment on above: Order Comment: Speci men Type: BLOOD SPECIMENOrdering Facility: [facility] Address: [address] [place] [address] Performed By: #### 5 7021-8 ####[facility]OSPITALNCLIA [id number] [place] [address] [place] Lymphocytes (Bld) [#/Vol] 1.09 10*3/uL Normal 1.00-4.00 [facility] Comment on above: Order Comment: Speci men Type: BLOOD SPECIMENOrdering Facility: [facility] Address: [address] [place] [address] Performed By: #### 5 7021-8 ####[facility] ELLENBREMENNCCOLTONA [id number] [place] [address] [place] Lymphocytes/100 WBC (Bld) 12.8 % Normal [facility] Comment on above: Order Comment: Speci men Type: BLOOD SPECIMENOrdering Facility: [facility] Address: [address] [place] [address] Performed By: #### 5 7021-8 ####[facility] HOSPITALJAMAL [id number] [place] [address] [place] MCH (RBC) [Entitic mass] 29.3 pg Normal 26.0-34.0 [facility] Comment on above: Order Comment: Speci men Type: BLOOD SPECIMENOrdering Facility: [facility] Address: [address] [place] [address] Performed By: #### 5 7021-8 ####[facility] HOSPITALKAVITAKANE [facility] [id number] [place] [address] [place] MCHC (RBC) [Mass/Vol] 32.5 g/dL Normal 30.5-36.0 Joni [facility] Comment on above: Order Comment: Speci men Type: BLOOD SPECIMENOrdering Facility: [facility] Address: [address] [place] [address] Performed By: #### 5 7021-8 ####[facility] HOSPITALKAVITACOLTONMingo [id number] [place] [address] [place] MCV (RBC) [Entitic vol] 90.2 fL Normal 80.0-100.0 [facility] Comment on above: Order Comment: Speci men Type: BLOOD SPECIMENOrdering Facility: [facility] Address: [address] [place] [address] Performed By: #### 5 7021-8 ####[facility] HOSPITALNCLI [id number] [place] [address] [place] Monocytes (Bld) [#/Vol] 0.57 10*3/uL Normal <0.87 [facility] Comment on above: Order Comment: Speci men Type: BLOOD SPECIMENOrdering Facility: [facility] Address: [address] [place] [address] Performed By: #### 5 7021-8 ####[facility]SA [id number] [place] [address] [place] Monocytes/100 WBC (Bld) 6.7 % Normal [facility] Comment on above: Order Comment: Speci men Type: BLOOD SPECIMENOrdering Facility: [facility] Address: [address] [place] [address] Performed By: #### 5 7021-8 ####[facility] [id number] [place] [address] [place] Neutrophils (Bld) [#/Vol] 6.46 10*3/uL Normal 1.45-7.50 [facility] Comment on above: Order Comment: Speci men Type: BLOOD SPECIMENOrdering Facility: [facility] Address: [address] [place] [address] Performed By: #### 5 7021-8 ####[facility]SA [id number] [place] [address] [place] Neutrophils/100 WBC (Bld) 75.5 % Normal [facility] Comment on above: Order Comment: Speci men Type: BLOOD SPECIMENOrdering Facility: [facility] Address: [address] [place] [address] Performed By: #### 5 7021-8 ####[facility]SA [id number] [place] [address] [place] Nucleated RBC (Bld) [#/Vol] 10*3/uL Normal <0.01 [facility] Comment on above: Order Comment: Speci men Type: BLOOD SPECIMENOrdering Facility: [facility] Address: [address] [place] [address] Performed By: #### 5 7021-8 ####[facility] GERTRUDE [id number] [place] [address] [place] Nucleated RBC/100 WBC (Bld) [Ratio] 0.0 /100 WBC Normal [facility] Comment on above: Order Comment: Speci men Type: BLOOD SPECIMENOrdering Facility: [facility] Address: [address] [place] [address] Performed By: #### 5 7021-8 ####[facility] HOSPITALNCTAINA [id number] [place] [address] [place] Platelet mean volume (Bld) [Entitic vol] 10.9 fL Normal 9.0-12.7 [facility] Comment on above: Order Comment: Speci men Type: BLOOD SPECIMENOrdering Facility: [facility] Address: [address] [place] [address] Performed By: #### 5 7021-8 ####[facility] HOSPITALKAVITAA [id number] [place] [address] [place] Platelets (Bld) [#/Vol] 162 10*3/uL Normal 150-400 [facility] Comment on above: Order Comment: Speci men Type: BLOOD SPECIMENOrdering Facility: [facility] Address: [address] [place] [address] Performed By: #### 5 7021-8 ####[facility] MEDICAL CENTERLIA [id number] [place] [address] [place] RBC (Bld) [#/Vol] 3.38 10*6/uL Low 4.20-6.00 [facility] Comment on above: Order Comment: Speci men Type: BLOOD SPECIMENOrdering Facility: [facility] Address: [address] [place] [address] Performed By: #### 5 7021-8 ####[facility] MILLTOWNCLIA [id number] [place] [address] [place] WBC (Bld) [#/Vol] 8.54 10*3/uL Normal 3.70-11.00 [facility] Comment on above: Order Comment: Speci men Type: BLOOD SPECIMENOrdering Facility: [facility] Address: [address] [place] [address] Performed By: #### 5 7021-8 ####[facility] CHILDRENWNCLIA [id number] [place] [address] [place] CNOVSPon 07-10-2024 CNOVSP Normal [facility] Ferritin SerPl-mCncon 2024 Ferritin [Mass/Vol] 459.0 ng/mL Normal 30.3-565.7 [facility] Comment on above: Order Comment: Speci men Type: BLOOD SPECIMENOrdering Facility: [facility] Address: [address] [place] [address] Performed By: #### 2 276-4, 68964-9 ####[facility] LABORATORYCLIA [id number] [place] [address] [place] Iron and Iron binding capaci ty panelon 07-10-2024 Iron [Mass/Vol] 54 ug/dL Normal 41-186 [facility] Comment on above: Order Comment: Speci men Type: BLOOD SPECIMENOrdering Facility: [facility] Address: [address] [place] [address] Performed By: #### 2 276-4, 20516-4 ####[facility] LABORATORYCLIA [id number] [place] [address] [place] Iron binding capacity [Mass/Vol] 207 ug/dL Low 232-386 [facility] Comment on above: Order Comment: Speci men Type: BLOOD SPECIMENOrdering Facility: [facility] Address: [address] [place] [address] Performed By: #### 2 276-4, 14429-3 ####[facility] LABORATORYCLIA [id number] [place] [address] [place] Iron saturation [Mass fraction] 26.1 % Normal 15.0-57.0 [facility] Comment on above: Order Comment: Speci men Type: BLOOD SPECIMENOrdering Facility: [facility] Address: [address] [place] [address] Performed By: #### 2 276-4, 53633-7 ####[facility] LABORATORYCLIA [id number] [place] [address] [place] CNPNon 06-26-2024 CNPN Normal [facility] CNPNon 06-20-2024 CNPN Normal [facility] Urine Cultureon 06-11-2024 URC Normal [facility] Comment on above: Performed By: #### Mery , ####[facility] [address] [place], [address] Urinalysis, Routine (Dipstic k)on 06-09-2024 BILIRUBIN URINE Negative Normal Negative [facility] Comment on above: Order Comment: CLEAN CATCH Performed By: #### Mery , ####[facility] [address] [place], [address] Clarity (U) Clear Normal Clear [facility] Comment on above: Order Comment: CLEAN CATCH Performed By: #### Mery 100, ####[facility] [address] [place], [address] Color (U) Yellow Normal Yellow [facility] Comment on above: Order Comment: CLEAN CATCH Performed By: #### M 100, ####[facility] [address] [place], [address] GLUCOSE, UR Normal Normal Normal [facility] Comment on above: Order Comment: CLEAN CATCH Performed By: #### Mery 100, ####[facility] [address] [place], [address] KETONE UR Negative Normal Negative [facility] Comment on above: Order Comment: CLEAN CATCH Performed By: #### M .2199, ####[facility] [address] [place], [address] LEUK ESTERASE Negative Normal Negative [facility] Comment on above: Order Comment: CLEAN CATCH Performed By: #### M , ####[facility] [address] [place], [address] Nitrite Ql (U) Negative Normal Negative [facility] Comment on above: Order Comment: CLEAN CATCH Performed By: #### M L4 ####[facility] [address] [place], [address] OCCULT BLOOD-UR Negative Normal Negative [facility] Comment on above: Order Comment: CLEAN CATCH Performed By: #### M L4 ####[facility] [address] [place], [address] pH UR 5.0 Normal 5.0 - 8.0 [facility] Comment on above: Order Comment: CLEAN CATCH Performed By: #### M L4 ####[facility] [address] [place], [address] PROT DIPSTX 15 mg/dl Abnormal Negative [facility] Comment on above: Order Comment: CLEAN CATCH Performed By: #### M L4 ####[facility] [address] [place], [address] SP.GR. DIPSTX 1.010 Normal 1.002-1.03 0 [facility] Comment on above: Order Comment: CLEAN CATCH Performed By: #### M L4 ####[facility] [address] [place], [address] UROBILI Normal Normal Normal [facility] Comment on above: Order Comment: CLEAN CATCH Performed By: #### M 100.2200, L400.2010 ####[facility] [address] [place], [address] CNPNon 06-07-2024 CNPN Normal [facility] CNPNon 06-02-2024 CNPN Normal [facility] CNOVon 06-01-2024 CNOV Normal [facility] CNPNon 06-01-2024 CNPN Normal [facility] CBC W Auto Differential pane l (Bld)on 05-29-2024 Basophils (Bld) [#/Vol] 0.03 10*3/uL Normal <0.11 [facility] Comment on above: Order Comment: Speci men Type: BLOOD SPECIMENOrdering Facility: [facility] Address: [address] [place] [address] Performed By: #### 5 7021-8 ####[facility] CENTERLIA [id number] [place] [address] [place] Basophils/100 WBC (Bld) 0.3 % Normal [facility] Comment on above: Order Comment: Speci men Type: BLOOD SPECIMENOrdering Facility: [facility] Address: [address] [place] [address] Performed By: #### 5 7021-8 ####[facility] CHILDRENWNCLIA [id number] [place] [address] [place] Differential cell count method Nom (Bld) Auto Normal [facility] Comment on above: Order Comment: Speci men Type: BLOOD SPECIMENOrdering Facility: [facility] Address: [address] [place] [address] Performed By: #### 5 7021-8 ####[facility] HOSPITALNCLIA [id number] [place] [address] [place] Eosinophils (Bld) [#/Vol] 0.29 10*3/uL Normal <0.46 [facility] Comment on above: Order Comment: Speci men Type: BLOOD SPECIMENOrdering Facility: [facility] Address: [address] [place] [address] Performed By: #### 5 7021-8 ####[facility]SA [id number] [place] [address] [place] Eosinophils/100 WBC (Bld) 2.6 % Normal [facility] Comment on above: Order Comment: Speci men Type: BLOOD SPECIMENOrdering Facility: [facility] Address: [address] [place] [address] Performed By: #### 5 7021-8 ####[facility] [id number] [place] [address] [place] Erythrocyte distribution width (RBC) [Ratio] 15.9 % High 11.5-15.0 [facility] Comment on above: Order Comment: Speci men Type: BLOOD SPECIMENOrdering Facility: [facility] Address: [address] [place] [address] Performed By: #### 5 7021-8 ####[facility] [id number] [place] [address] [place] Hematocrit (Bld) [Volume fraction] 34.4 % Low 39.0-51.0 [facility] Comment on above: Order Comment: Speci men Type: BLOOD SPECIMENOrdering Facility: [facility] Address: [address] [place] [address] Performed By: #### 5 7021-8 ####[facility]ITALNCK[facility] [id number] [place] [address] [place] Hemoglobin (Bld) [Mass/Vol] 11.2 g/dL Low 13.0-17.0 [facility] Comment on above: Order Comment: Speci men Type: BLOOD SPECIMENOrdering Facility: [facility] Address: [address] [place] [address] Performed By: #### 5 7021-8 ####[facility] HOSPITALZENA [id number] [place] [address] [place] Immature granulocytes (Bld) [#/Vol] 0.11 10*3/uL High <0.10 [facility] Comment on above: Order Comment: Speci men Type: BLOOD SPECIMENOrdering Facility: [facility] Address: [address] [place] [address] Performed By: #### 5 7021-8 ####[facility] [id number] [place] [address] [place] Immature granulocytes/100 WBC (Bld) 1.0 % Normal [facility] Comment on above: Order Comment: Speci men Type: BLOOD SPECIMENOrdering Facility: [facility] Address: [address] [place] [address] Performed By: #### 5 7021-8 ####[facility] [id number] [place] [address] [place] Lymphocytes (Bld) [#/Vol] 1.29 10*3/uL Normal 1.00-4.00 [facility] Comment on above: Order Comment: Speci men Type: BLOOD SPECIMENOrdering Facility: [facility] Address: [address] [place] [address] Performed By: #### 5 7021-8 ####[facility] MED[facility] CENTERLIA [id number] [place] [address] [place] Lymphocytes/100 WBC (Bld) 11.6 % Normal [facility] Comment on above: Order Comment: Speci men Type: BLOOD SPECIMENOrdering Facility: [facility] Address: [address] [place] [address] Performed By: #### 5 7021-8 ####[facility] ELLENSherryNCCOLTONA [id number] [place] [address] [place] MCH (RBC) [Entitic mass] 28.6 pg Normal 26.0-34.0 [facility] Comment on above: Order Comment: Speci men Type: BLOOD SPECIMENOrdering Facility: [facility] Address: [address] [place] [address] Performed By: #### 5 7021-8 ####[facility] [id number] [place] [address] [place] MCHC (RBC) [Mass/Vol] 32.6 g/dL Normal 30.5-36.0 [facility] Comment on above: Order Comment: Speci men Type: BLOOD SPECIMENOrdering Facility: [facility] Address: [address] [place] [address] Performed By: #### 5 7021-8 ####[facility] [id number] [place] [address] [place] MCV (RBC) [Entitic vol] 87.8 fL Normal 80.0-100.0 [facility] Comment on above: Order Comment: Speci men Type: BLOOD SPECIMENOrdering Facility: [facility] Address: [address] [place] [address] Performed By: #### 5 7021-8 ####[facility] SPRINGSMingo [id number] [place] [address] [place] Monocytes (Bld) [#/Vol] 0.73 10*3/uL Normal <0.87 [facility] Comment on above: Order Comment: Speci men Type: BLOOD SPECIMENOrdering Facility: [facility] Address: [address] [place] [address] Performed By: #### 5 7021-8 ####[facility] HOSPITALNCLI [id number] [place] [address] [place] Monocytes/100 WBC (Bld) 6.6 % Normal [facility] Comment on above: Order Comment: Speci men Type: BLOOD SPECIMENOrdering Facility: [facility] Address: [address] [place] [address] Performed By: #### 5 7021-8 ####[facility] SPRINGSA [id number] [place] [address] [place] Neutrophils (Bld) [#/Vol] 8.65 10*3/uL High 1.45-7.50 [facility] Comment on above: Order Comment: Speci men Type: BLOOD SPECIMENOrdering Facility: [facility] Address: [address] [place] [address] Performed By: #### 5 7021-8 ####[facility] [id number] [place] [address] [place] Neutrophils/100 WBC (Bld) 77.9 % Normal [facility] Comment on above: Order Comment: Speci men Type: BLOOD SPECIMENOrdering Facility: [facility] Address: [address] [place] [address] Performed By: #### 5 7021-8 ####[facility]SA [id number] [place] [address] [place] Nucleated RBC (Bld) [#/Vol] 10*3/uL Normal <0.01 [facility] Comment on above: Order Comment: Speci men Type: BLOOD SPECIMENOrdering Facility: [facility] Address: [address] [place] [address] Performed By: #### 5 7021-8 ####[facility] [id number] [place] [address] [place] Nucleated RBC/100 WBC (Bld) [Ratio] 0.0 /100 WBC Normal [facility] Comment on above: Order Comment: Speci men Type: BLOOD SPECIMENOrdering Facility: [facility] Address: [address] [place] [address] Performed By: #### 5 7021-8 ####[facility] JGNCCOLTONA [id number] [place] [address] [place] Platelet mean volume (Bld) [Entitic vol] 9.9 fL Normal 9.0-12.7 [facility] Comment on above: Order Comment: Speci men Type: BLOOD SPECIMENOrdering Facility: [facility] Address: [address] [place] [address] Performed By: #### 5 7021-8 ####[facility] ELLENBREMENNCCOLTONA [id number] [place] [address] [place] Platelets (Bld) [#/Vol] 155 10*3/uL Normal 150-400 [facility] Comment on above: Order Comment: Speci men Type: BLOOD SPECIMENOrdering Facility: [facility] Address: [address] [place] [address] Performed By: #### 5 7021-8 ####[facility]PITALNCLIA [id number] [place] [address] [place] RBC (Bld) [#/Vol] 3.92 10*6/uL Low 4.20-6.00 [facility] Comment on above: Order Comment: Speci men Type: BLOOD SPECIMENOrdering Facility: [facility] Address: [address] [place] [address] Performed By: #### 5 7021-8 ####[facility]OSPITALNCLIA [id number] [place] [address] [place] WBC (Bld) [#/Vol] 11.10 10*3/uL High 3.70-11.00 [facility] Comment on above: Order Comment: Speci men Type: BLOOD SPECIMENOrdering Facility: [facility] Address: [address] [place] [address] Performed By: #### 5 7021-8 ####[facility] SPRINGSA [id number] [place] [address] [place] CNOVSPon 05-29-2024 CNOVSP Normal [facility] Basic Metabolic Profile (BMP )on 05-26-2024 BUN Normal 7-18 [facility] Comment on above: Result Comment: Canc elled via OM: Order cancelled - Patient discharged Performed By: #### L 100.0100, L500.2500 ####[facility] [address] [place], [address] BUN/CRE Normal 10-20 [facility] Comment on above: Result Comment: Canc elled via OM: Order cancelled - Patient discharged Performed By: #### L 100.0100, L500.2500 ####[facility] [address] [place], [address] CA,Total Normal 8.5-10.1 [facility] Comment on above: Result Comment: Canc elled via OM: Order cancelled - Patient discharged Performed By: #### L 100.0100, L500.2500 ####[facility] [address] [place], [address] CL Normal 98-107 [facility] Comment on above: Result Comment: Canc elled via OM: Order cancelled - Patient discharged Performed By: #### L 100.0100, L500.2500 ####[facility] [address] [place], [address] CO2 Normal 21.0-32.0 [facility] Comment on above: Result Comment: Canc elled via OM: Order cancelled - Patient discharged Performed By: #### L 100.0100, L500.2500 ####[facility] [address] [place], [address] CREAT,SERUM Normal 0.70-1.30 [facility] Comment on above: Result Comment: Canc elled via OM: Order cancelled - Patient discharged Performed By: #### L 100.0100, L500.2500 ####[facility] [address] [place], [address] EST GFR Normal >60 [facility] Comment on above: Result Comment: Canc elled via OM: Order cancelled - Patient discharged Performed By: #### L 100.0100, L500.2500 ####[facility] [address] [place], [address] EST GFR - AA Normal >60 [facility] Comment on above: Result Comment: Canc elled via OM: Order cancelled - Patient discharged Performed By: #### L 100.0100, L500.2500 ####[facility] [address] [place], [address] GAP Normal 5-15 [facility] Comment on above: Result Comment: Canc elled via OM: Order cancelled - Patient discharged Performed By: #### L 100.0100, L500.2500 ####[facility] [address] [place], [address] GLU Normal 74-106 [facility] Comment on above: Result Comment: Canc elled via OM: Order cancelled - Patient discharged Performed By: #### L 100.0100, L500.2500 ####[facility] [address] [place], [address] Potassium Normal 3.5-5.1 [facility] Comment on above: Result Comment: Canc elled via OM: Order cancelled - Patient discharged Performed By: #### L 100.0100, L500.2500 ####[facility] [address] [place], [address] Basic Metabolic Profile (BMP) Normal 136-145 [facility] Comment on above: Result Comment: Canc elled via OM: Order cancelled - Patient discharged Performed By: #### L 100.0100, L500.2500 ####[facility] [address] [place], [address] CBC W/Diff, Automatedon 05-10 Absolute Neut Normal 2.0-7.7 [facility] Comment on above: Result Comment: Canc elled via OM: Order cancelled - Patient discharged Performed By: #### L 100.0100, L500.2500 ####[facility] [address] [place], [address] HCT Normal 40-54 [facility] Comment on above: Result Comment: Canc elled via OM: Order cancelled - Patient discharged Performed By: #### L 100.0100, L500.2500 ####[facility] [address] [place], [address] HGB Normal 13.0-16.5 [facility] Comment on above: Result Comment: Canc elled via OM: Order cancelled - Patient discharged Performed By: #### L 100.0100, L500.2500 ####[facility] [address] [place], [address] MCH Normal 27.0-32.0 [facility] Comment on above: Result Comment: Canc elled via OM: Order cancelled - Patient discharged Performed By: #### L 100.0100, L500.2500 ####[facility] [address] [place], [address] MCHC Normal 32-36 [facility] Comment on above: Result Comment: Canc elled via OM: Order cancelled - Patient discharged Performed By: #### L 100.0100, L500.2500 ####[facility] [address] [place], [address] MCV Normal 80-94 [facility] Comment on above: Result Comment: Canc elled via OM: Order cancelled - Patient discharged Performed By: #### L 100.0100, L500.2500 ####[facility] [address] [place], [address] NEUT% Normal 47-70 [facility] Comment on above: Result Comment: Canc elled via OM: Order cancelled - Patient discharged Performed By: #### L 100.0100, L500.2500 ####[facility] [address] [place], [address] PLT Normal 150-450 [facility] Comment on above: Result Comment: Canc elled via OM: Order cancelled - Patient discharged Performed By: #### L 100.0100, L500.2500 ####[facility] [address] [place], [address] RBC Normal 4.6-6.2 [facility] Comment on above: Result Comment: Canc elled via OM: Order cancelled - Patient discharged Performed By: #### L 100.0100, L500.2500 ####[facility] [address] [place], [address] RDW CV Normal 11.6-14.6 [facility] Comment on above: Result Comment: Canc elled via OM: Order cancelled - Patient discharged Performed By: #### L 100.0100, L500.2500 ####[facility] [address] [place], [address] RDW SD Normal 35.1-43.9 [facility] Comment on above: Result Comment: Canc elled via OM: Order cancelled - Patient discharged Performed By: #### L 100.0100, L500.2500 ####[facility] [address] [place], [address] WBC Normal 4.4-11.0 [facility] Comment on above: Result Comment: Canc elled via OM: Order cancelled - Patient discharged Performed By: #### L 100.0100, L500.2500 ####[facility] [address] [place], [address] CNPNon 05-23-2024 CNPN Normal [facility] CNPNon 05-22-2024 CNPN Normal [facility] Basic Metabolic Profile (BMP )on 05-19-2024 BUN/CRE 19.9 RATIO Normal 10-20 [facility] Comment on above: Performed By: #### L 100.0100, L500.2500 ####[facility] [address] [place], [address] CA,Total 9.0 mg/dL Normal 8.5-10.1 [facility] Comment on above: Performed By: #### L 100.0100, L500.2500 ####[facility] [address] [place], [address] Chloride [Moles/Vol] 114 mmol/L High 98-107 [facility] Comment on above: Performed By: #### L 100.0100, L500.2500 ####[facility] [address] [place], [address] CO2 [Moles/Vol] 21.0 mmol/L Normal 21.0-32.0 [facility] Comment on above: Performed By: #### L 100.0100, L500.2500 ####[facility] [address] [place], [address] Creatinine [Mass/Vol] 2.21 mg/dL High 0.70-1.30 [facility] Comment on above: Result Comment: The validity of the calculated GFR GFRAA in patients over70 years has not been determined. Clinical correlation isessential. Performed By: #### L 100.0100, L500.2500 ####[facility] [address] [place], [address] ECRCL 33.08 ml/min Normal [facility] Comment on above: Performed By: #### L 100.0100, L500.2500 ####[facility] [address] [place], [address] EST GFR - AA 37 mL/min Low >60 [facility] Comment on above: Result Comment: Afri can Guyanese GFR Calc Performed By: #### L 100.0100, L500.2500 ####[facility] [address] [place], [address] GAP 6 Normal 5-15 [facility] Comment on above: Performed By: #### L 100.0100, L500.2500 ####[facility] [address] [place], [address] GFR/1.73 sq M.predicted among non-blacks MDRD (S/P/Bld) [Vol rate/Area] 30 mL/min/{1.73_m2} Low >60 [facility] Comment on above: Result Comment: Non- GFR Calc Performed By: #### L 100.0100, L500.2500 ####[facility] [address] [place], [address] Glucose [Mass/Vol] 186 mg/dL High 74-106 [facility] Comment on above: Result Comment: Fast ing Glucose result greater than or equal to 126 mg/dLsuggests DIABETES MELLITUS per A.D.A. criteria. Performed By: #### L 100.0100, L500.2500 ####[facility] [address] [place], [address] Potassium [Moles/Vol] 4.6 mmol/L Normal 3.5-5.1 [facility] Comment on above: Performed By: #### L 100.0100, L500.2500 ####[facility] [address] [place], [address] Sodium [Moles/Vol] 141 mmol/L Normal 136-145 [facility] Comment on above: Performed By: #### L 100.0100, L500.2500 ####[facility] [address] [place], [address] Urea nitrogen [Mass/Vol] 44 mg/dL High 7-18 [facility] Comment on above: Performed By: #### L 100.0100, L500.2500 ####[facility] [address] [place], [address] Bedside Glucoseon 05-19-2024 FINGERSTICK GLU 167 mg/dL High 74-106 [facility] Comment on above: Result Comment: EARNESTINE GEMENT OF PATIENT CARE PER NURSING PROTOCOL Performed By: #### L 501.080 ####[facility] [address] [place], [address] FINGERSTICK GLU 165 mg/dL High 74-106 [facility] Comment on above: Result Comment: EARNESTINE GEMENT OF PATIENT CARE PER NURSING PROTOCOL Performed By: #### L 501.080 ####[facility] [address] [place], [address] CBC W/Diff, Automatedon - 0-2024 Absolute Lymph 1.38 X10 3/uL Normal 0.83-4.51 [facility] Comment on above: Performed By: #### L 100.0100, L500.2500 ####[facility] [address] [place], [address] Absolute Neut 8.7 X10 3/uL High 2.0-7.7 [facility] Comment on above: Performed By: #### L 100.0100, L500.2500 ####[facility] [address] [place], [address] Basophils/100 WBC (Bld) 0.4 % Normal 0-1 [facility] Comment on above: Performed By: #### L 100.0100, L500.2500 ####[facility] [address] [place], [address] Eosinophils/100 WBC (Bld) 2.4 % Normal 0-5 [facility] Comment on above: Performed By: #### L 100.0100, L500.2500 ####[facility] [address] [place], [address] Erythrocyte distribution width (RBC) [Ratio] 15.3 % High 11.6-14.6 [facility] Comment on above: Performed By: #### L 100.0100, L500.2500 ####[facility] [address] [place], [address] Hematocrit (Bld) [Volume fraction] 32.7 % Low 40-54 [facility] Comment on above: Performed By: #### L 100.0100, L500.2500 ####[facility] [address] [place], [address] Hemoglobin (Bld) [Mass/Vol] 10.5 g/dL Low 13.0-16.5 [facility] Comment on above: Performed By: #### L 100.0100, L500.2500 ####[facility] [address] [place], [address] IG% 0.800 Normal 0.0-0.9 [facility] Comment on above: Result Comment: IG% - Immature Granulocytes (promyelocytes, myelocytes andmetamyelocytes) > 1% indicates that a LEFT SHIFT is Present. Performed By: #### L 100.0100, L500.2500 ####[facility] [address] [place], [address] Lymphocytes/100 WBC (Bld) 12.3 % Low 19-41 [facility] Comment on above: Performed By: #### L 100.0100, L500.2500 ####[facility] [address] [place], [address] MCH (RBC) [Entitic mass] 28.5 pg Normal 27.0-32.0 [facility] Comment on above: Performed By: #### L 100.0100, L500.2500 ####[facility] [address] [place], [address] MCHC (RBC) [Mass/Vol] 32.1 g/dL Normal 32-36 [facility] Comment on above: Performed By: #### L 100.0100, L500.2500 ####[facility] [address] [place], [address] MCV (RBC) [Entitic vol] 88.6 fL Normal 80-94 [facility] Comment on above: Performed By: #### L 100.0100, L500.2500 ####[facility] [address] [place], [address] Monocytes/100 WBC (Bld) 6.3 % Normal 0-10 [facility] Comment on above: Performed By: #### L 100.0100, L500.2500 ####[facility] [address] [place], [address] Neutrophils/100 WBC (Bld) 77.8 % High 47-70 [facility] Comment on above: Performed By: #### L 100.0100, L500.2500 ####[facility] [address] [place], [address] Nucleated RBC (Bld) [#/Vol] 0 10*3/uL Normal 0-5 [facility] Comment on above: Performed By: #### L 100.0100, L500.2500 ####[facility] [address] [place], [address] Platelet mean volume (Bld) [Entitic vol] 10.8 fL Normal 6.2-12.0 [facility] Comment on above: Performed By: #### L 100.0100, L500.2500 ####[facility] [address] [place], [address] Platelets (Bld) [#/Vol] 186 10*3/uL Normal 150-450 [facility] Comment on above: Performed By: #### L 100.0100, L500.2500 ####[facility] [address] [place], [address] RBC (Bld) [#/Vol] 3.69 10*6/uL Low 4.6-6.2 [facility] Comment on above: Performed By: #### L 100.0100, L500.2500 ####[facility] [address] [place], [address] RDW SD 49.5 fl High 35.1-43.9 [facility] Comment on above: Performed By: #### L 100.0100, L500.2500 ####[facility] [address] [place], [address] WBC (Bld) [#/Vol] 11.2 10*3/uL High 4.4-11.0 [facility] Comment on above: Performed By: #### L 100.0100, L500.2500 ####[facility] [address] [place], [address] CNPNon 05-19-2024 CNPN Normal [facility] Bedside Glucoseon 05-18-2024 FINGERSTICK GLU 149 mg/dL High 74-106 [facility] Comment on above: Result Comment: EARNESTINE GEMENT OF PATIENT CARE PER NURSING PROTOCOL Performed By: #### L 501.080 ####[facility] [address] [place], [address] FINGERSTICK GLU 180 mg/dL High 74-106 [facility] Comment on above: Result Comment: EARNESTINE GEMENT OF PATIENT CARE PER NURSING PROTOCOL Performed By: #### L 501.080 ####[facility] [address] [place], [address] Bedside Glucoseon 05-17-2024 FINGERSTICK GLU 191 mg/dL High 74-106 [facility] Comment on above: Result Comment: EARNESTINE GEMENT OF PATIENT CARE PER NURSING PROTOCOL Performed By: #### L 501.080 ####[facility] [address] [facility] [address] FINGERSTICK GLU 143 mg/dL High [address] [place] [address] Comment on above: Result Comment: EARNESTINE GEMENT OF PATIENT CARE PER NURSING PROTOCOL Performed By: #### L 501.080 ####[facility] [address] [facility] [address] Bedside Glucoseon 05-16-2024 FINGERSTICK GLU 126 mg/dL [address] Comment on above: Result Comment: EARNESTINE GEMENT OF PATIENT CARE PER NURSING PROTOCOL Performed By: #### L 501.080 ####[facility] [address] [facility] [address] FINGERSTICK GLU 137 mg/dL [address] Comment on above: Result Comment: EARNESTINE GEMENT OF PATIENT CARE PER NURSING PROTOCOL Performed By: #### L 501.080 ####[facility] [address] [facility] [address] Bedside Glucoseon 05-15-2024 FINGERSTICK GLU 198 mg/dL [address] Comment on above: Result Comment: EARNESTINE GEMENT OF PATIENT CARE PER NURSING PROTOCOL Performed By: #### L 501.080 ####[facility] [address] [facility] [address] FINGERSTICK GLU 147 mg/dL [address] Comment on above: Result Comment: EARNESTINE GEMENT OF PATIENT CARE PER NURSING PROTOCOL Performed By: #### L 501.080 ####[facility] [address] [facility] [address] Bedside Glucoseon 05-14-2024 FINGERSTICK GLU 139 mg/dL [address] Comment on above: Result Comment: EARNESTINE GEMENT OF PATIENT CARE PER NURSING PROTOCOL Performed By: #### L 501.080 ####[facility] [address] [place], [address] FINGERSTICK GLU 160 mg/dL High 74-106 [facility] Comment on above: Result Comment: EARNESTINE GEMENT OF PATIENT CARE PER NURSING PROTOCOL Performed By: #### L 501.080 ####[facility] [address] [place], [address] Bedside Glucoseon 05-13-2024 FINGERSTICK GLU 132 mg/dL High 74-106 [facility] Comment on above: Result Comment: EARNESTINE GEMENT OF PATIENT CARE PER NURSING PROTOCOL Performed By: #### L 501.080 ####[facility] [address] [place], [address] FINGERSTICK GLU 123 mg/dL High 74-106 [facility] Comment on above: Result Comment: EARNESTINE GEMENT OF PATIENT CARE PER NURSING PROTOCOL Performed By: #### L 501.080 ####[facility] [address] [place], [address] Basic Metabolic Profile (BMP )on 05-12-2024 BUN/CRE 20.6 RATIO High 10-20 [facility] Comment on above: Performed By: #### L 100.0100, L500.2500 ####[facility] [address] [place], [address] CA,Total 9.1 mg/dL Normal 8.5-10.1 [facility] Comment on above: Performed By: #### L 100.0100, L500.2500 ####[facility] [address] [place], [address] Chloride [Moles/Vol] 111 mmol/L High 98-107 [facility] Comment on above: Performed By: #### L 100.0100, L500.2500 ####[facility] [address] [place], [address] CO2 [Moles/Vol] 24.0 mmol/L Normal 21.0-32.0 [facility] Comment on above: Performed By: #### L 100.0100, L500.2500 ####[facility] [address] [place], [address] Creatinine [Mass/Vol] 1.89 mg/dL High 0.70-1.30 [facility] Comment on above: Result Comment: The validity of the calculated GFR GFRAA in patients over70 years has not been determined. Clinical correlation isessential. Performed By: #### L 100.0100, L500.2500 ####[facility] [address] [place], [address] ECRCL 38.65 ml/min Normal [facility] Comment on above: Performed By: #### L 100.0100, L500.2500 ####[facility] [address] [place], [address] EST GFR - AA 44 mL/min Low >60 [facility] Comment on above: Result Comment: Afri can Guyanese GFR Calc Performed By: #### L 100.0100, L500.2500 ####[facility] [address] [place], [address] GAP 4 Low 5-15 [facility] Comment on above: Performed By: #### L 100.0100, L500.2500 ####[facility] [address] [place], [address] GFR/1.73 sq M.predicted among non-blacks MDRD (S/P/Bld) [Vol rate/Area] 36 mL/min/{1.73_m2} Low >60 [facility] Comment on above: Result Comment: Non- GFR Calc Performed By: #### L 100.0100, L500.2500 ####[facility] [address] [place], [address] Glucose [Mass/Vol] 167 mg/dL High 74-106 [facility] Comment on above: Result Comment: Fast ing Glucose result greater than or equal to 126 mg/dLsuggests DIABETES MELLITUS per A.D.A. criteria. Performed By: #### L 100.0100, L500.2500 ####[facility] [address] [place], [address] Potassium [Moles/Vol] 4.1 mmol/L Normal 3.5-5.1 [facility] Comment on above: Performed By: #### L 100.0100, L500.2500 ####[facility] [address] [place], [address] Sodium [Moles/Vol] 139 mmol/L Normal 136-145 [facility] Comment on above: Performed By: #### L 100.0100, L500.2500 ####[facility] [address] [place], [address] Urea nitrogen [Mass/Vol] 39 mg/dL High 7-18 [facility] Comment on above: Performed By: #### L 100.0100, L500.2500 ####[facility] [address] [place], [address] Bedside Glucoseon 05-12-2024 FINGERSTICK GLU 153 mg/dL High 74-106 [facility] Comment on above: Result Comment: EARNESTINE GEMENT OF PATIENT CARE PER NURSING PROTOCOL Performed By: #### L 501.080 ####[facility] [address] [place], [address] FINGERSTICK GLU 139 mg/dL High 74-106 [facility] Comment on above: Result Comment: EARNESTINE GEMENT OF PATIENT CARE PER NURSING PROTOCOL Performed By: #### L 501.080 ####[facility] [address] [place], [address] CBC W/Diff, Automatedon -0 Absolute Lymph 1.23 X10 3/uL Normal 0.83-4.51 [facility] Comment on above: Performed By: #### L 100.0100, L500.2500 ####[facility] [address] [place], [address] Absolute Neut 6.4 X10 3/uL Normal 2.0-7.7 [facility] Comment on above: Performed By: #### L 100.0100, L500.2500 ####[facility] [address] [place], [address] Basophils/100 WBC (Bld) 0.6 % Normal 0-1 [facility] Comment on above: Performed By: #### L 100.0100, L500.2500 ####[facility] [address] [place], [address] Eosinophils/100 WBC (Bld) 3.7 % Normal 0-5 [facility] Comment on above: Performed By: #### L 100.0100, L500.2500 ####[facility] [address] [place], [address] Erythrocyte distribution width (RBC) [Ratio] 15.2 % High 11.6-14.6 [facility] Comment on above: Performed By: #### L 100.0100, L500.2500 ####[facility] [address] [place], [address] Hematocrit (Bld) [Volume fraction] 32.9 % Low 40-54 [facility] Comment on above: Performed By: #### L 100.0100, L500.2500 ####[facility] [address] [place], [address] Hemoglobin (Bld) [Mass/Vol] 10.7 g/dL Low 13.0-16.5 [facility] Comment on above: Performed By: #### L 100.0100, L500.2500 ####[facility] [address] [place], [address] IG% 0.700 Normal 0.0-0.9 [facility] Comment on above: Result Comment: IG% - Immature Granulocytes (promyelocytes, myelocytes andmetamyelocytes) > 1% indicates that a LEFT SHIFT is Present. Performed By: #### L 100.0100, L500.2500 ####[facility] [address] [place], [address] Lymphocytes/100 WBC (Bld) 14.0 % Low 19-41 [facility] Comment on above: Performed By: #### L 100.0100, L500.2500 ####[facility] [address] [place], [address] MCH (RBC) [Entitic mass] 28.6 pg Normal 27.0-32.0 [facility] Comment on above: Performed By: #### L 100.0100, L500.2500 ####[facility] [address] [place], [address] MCHC (RBC) [Mass/Vol] 32.5 g/dL Normal 32-36 [facility] Comment on above: Performed By: #### L 100.0100, L500.2500 ####[facility] [address] [place], [address] MCV (RBC) [Entitic vol] 88.0 fL Normal 80-94 [facility] Comment on above: Performed By: #### L 100.0100, L500.2500 ####[facility] [address] [place], [address] Monocytes/100 WBC (Bld) 8.6 % Normal 0-10 [facility] Comment on above: Performed By: #### L 100.0100, L500.2500 ####[facility] [address] [place], [address] Neutrophils/100 WBC (Bld) 72.4 % High 47-70 [facility] Comment on above: Performed By: #### L 100.0100, L500.2500 ####[facility] [address] [place], [address] Nucleated RBC (Bld) [#/Vol] 0 10*3/uL Normal 0-5 [facility] Comment on above: Performed By: #### L 100.0100, L500.2500 ####[facility] [address] [place], [address] Platelet mean volume (Bld) [Entitic vol] 10.0 fL Normal 6.2-12.0 [facility] Comment on above: Performed By: #### L 100.0100, L500.2500 ####[facility] [address] [place], [address] Platelets (Bld) [#/Vol] 208 10*3/uL Normal 150-450 [facility] Comment on above: Performed By: #### L 100.0100, L500.2500 ####[facility] [address] [place], [address] RBC (Bld) [#/Vol] 3.74 10*6/uL Low 4.6-6.2 [facility] Comment on above: Performed By: #### L 100.0100, L500.2500 ####[facility] [address] [place], [address] RDW SD 49.6 fl High 35.1-43.9 [facility] Comment on above: Performed By: #### L 100.0100, L500.2500 ####[facility] [address] [place], [address] WBC (Bld) [#/Vol] 8.8 10*3/uL Normal 4.4-11.0 [facility] Comment on above: Performed By: #### L 100.0100, L500.2500 ####[facility] [address] [place], [address] Bedside Glucoseon 05-11-2024 FINGERSTICK GLU 147 mg/dL High 74-106 [facility] Comment on above: Result Comment: EARNESTINE GEMENT OF PATIENT CARE PER NURSING PROTOCOL Performed By: #### L 501.080 ####[facility] [address] [place], [address] FINGERSTICK GLU 155 mg/dL High 74-106 [facility] Comment on above: Result Comment: EARNESTINE GEMENT OF PATIENT CARE PER NURSING PROTOCOL Performed By: #### L 501.080 ####[facility] [address] [place], [address] Bedside Glucoseon 2024 FINGERSTICK GLU 149 mg/dL High 74-106 [facility] Comment on above: Result Comment: EARNESTINE GEMENT OF PATIENT CARE PER NURSING PROTOCOL Performed By: #### L 501.080 ####[facility] [address] [place], [address] FINGERSTICK GLU 156 mg/dL High 74-106 [facility] Comment on above: Result Comment: EARNESTINE GEMENT OF PATIENT CARE PER NURSING PROTOCOL Performed By: #### L 501.080 ####[facility] [address] [place], [address] Bedside Glucoseon 05-09-2024 FINGERSTICK GLU 158 mg/dL High 74-106 [facility] Comment on above: Result Comment: EARNESTINE GEMENT OF PATIENT CARE PER NURSING PROTOCOL Performed By: #### L 501.080 ####[facility] [address] [place], [address] FINGERSTICK GLU 139 mg/dL High 74-106 [facility] Comment on above: Result Comment: EARNESTINE GEMENT OF PATIENT CARE PER NURSING PROTOCOL Performed By: #### L 501.080 ####[facility] [address] [place], [address] Bedside Glucoseon 05-08-2024 FINGERSTICK GLU 159 mg/dL High 74-106 [facility] Comment on above: Result Comment: EARNESTINE GEMENT OF PATIENT CARE PER NURSING PROTOCOL Performed By: #### L 501.080 ####[facility] [address] [place], [address] FINGERSTICK GLU 143 mg/dL High 74-106 [facility] Comment on above: Result Comment: EARNESTINE GEMENT OF PATIENT CARE PER NURSING PROTOCOL Performed By: #### L 501.080 ####[facility] [address] [place], [address] Bedside Glucoseon 05-07-2024 FINGERSTICK GLU 152 mg/dL High 74-106 [facility] Comment on above: Result Comment: EARNESTINE GEMENT OF PATIENT CARE PER NURSING PROTOCOL Performed By: #### L 501.080 ####[facility] [address] [place], [address] FINGERSTICK GLU 136 mg/dL High -106 [facility] Comment on above: Result Comment: EARNESTINE GEMENT OF PATIENT CARE PER NURSING PROTOCOL Performed By: #### L 501.080 ####[facility] [address] [place], [address] Chest PA and Lateralon 05-07 Chest PA and Lateral Normal [facility] Bedside Glucoseon 05-06-2024 FINGERSTICK GLU 133 mg/dL High 74-106 [facility] Comment on above: Result Comment: EARNESTINE GEMENT OF PATIENT CARE PER NURSING PROTOCOL Performed By: #### L 501.080 ####[facility] [address] [place], [address] FINGERSTICK GLU 128 mg/dL High 74-106 [facility] Comment on above: Result Comment: EARNESTINE GEMENT OF PATIENT CARE PER NURSING PROTOCOL Performed By: #### L 501.080 ####[facility] [address] [place], [address] Basic Metabolic Profile (BMP )on 05-05-2024 BUN/CRE 16.8 RATIO Normal 10-20 [facility] Comment on above: Performed By: #### L 100.0100, L500.2500 ####[facility] [address] [place], [address] CA,Total 9.1 mg/dL Normal 8.5-10.1 [facility] Comment on above: Performed By: #### L 100.0100, L500.2500 ####[facility] [address] [place], [address] Chloride [Moles/Vol] 110 mmol/L High 98-107 [facility] Comment on above: Performed By: #### L 100.0100, L500.2500 ####[facility] [address] [place], [address] CO2 [Moles/Vol] 21.0 mmol/L Normal 21.0-32.0 [facility] Comment on above: Performed By: #### L 100.0100, L500.2500 ####[facility] [address] [place], [address] Creatinine [Mass/Vol] 1.96 mg/dL High 0.70-1.30 [facility] Comment on above: Result Comment: The validity of the calculated GFR GFRAA in patients over70 years has not been determined. Clinical correlation isessential. Performed By: #### L 100.0100, L500.2500 ####[facility] [address] [place], [address] ECRCL 38.58 ml/min Normal [facility] Comment on above: Performed By: #### L 100.0100, L500.2500 ####[facility] [address] [place], [address] EST GFR - AA 42 mL/min Low >60 [facility] Comment on above: Result Comment: Afri can Guyanese GFR Calc Performed By: #### L 100.0100, L500.2500 ####[facility] [address] [place], [address] GAP 8 Normal 5-15 [facility] Comment on above: Performed By: #### L 100.0100, L500.2500 ####[facility] [address] [place], [address] GFR/1.73 sq M.predicted among non-blacks MDRD (S/P/Bld) [Vol rate/Area] 35 mL/min/{1.73_m2} Low >60 [facility] Comment on above: Result Comment: Non- GFR Calc Performed By: #### L 100.0100, L500.2500 ####[facility] [address] [place], [address] Glucose [Mass/Vol] 156 mg/dL High 74-106 [facility] Comment on above: Result Comment: Fast ing Glucose result greater than or equal to 126 mg/dLsuggests DIABETES MELLITUS per A.D.A. criteria. Performed By: #### L 100.0100, L500.2500 ####[facility] [address] [place], [address] Potassium [Moles/Vol] 4.2 mmol/L Normal 3.5-5.1 [facility] Comment on above: Performed By: #### L 100.0100, L500.2500 ####[facility] [address] [place], [address] Sodium [Moles/Vol] 139 mmol/L Normal 136-145 [facility] Comment on above: Performed By: #### L 100.0100, L500.2500 ####[facility] [address] [place], [address] Urea nitrogen [Mass/Vol] 33 mg/dL High 7-18 [facility] Comment on above: Performed By: #### L 100.0100, L500.2500 ####[facility] [address] [place], [address] Bedside Glucoseon 05-05-2024 FINGERSTICK GLU 171 mg/dL High 74-106 [facility] Comment on above: Result Comment: EARNESTINE GEMENT OF PATIENT CARE PER NURSING PROTOCOL Performed By: #### L 501.080 ####[facility] [address] [place], [address] FINGERSTICK GLU 148 mg/dL High 74-106 [facility] Comment on above: Result Comment: EARNESTINE GEMENT OF PATIENT CARE PER NURSING PROTOCOL Performed By: #### L 501.080 ####[facility] [address] [place], [address] CBC W/Diff, Automatedon 12- Absolute Lymph 1.29 X10 3/uL Normal 0.83-4.51 [facility] Comment on above: Performed By: #### L 100.0100, L500.2500 ####[facility] [address] [place], [address] Absolute Neut 6.2 X10 3/uL Normal 2.0-7.7 [facility] Comment on above: Performed By: #### L 100.0100, L500.2500 ####[facility] [address] [place], [address] Basophils/100 WBC (Bld) 0.5 % Normal 0-1 [facility] Comment on above: Performed By: #### L 100.0100, L500.2500 ####[facility] [address] [place], [address] Eosinophils/100 WBC (Bld) 3.6 % Normal 0-5 [facility] Comment on above: Performed By: #### L 100.0100, L500.2500 ####[facility] [address] [place], [address] Erythrocyte distribution width (RBC) [Ratio] 15.4 % High 11.6-14.6 [facility] Comment on above: Performed By: #### L 100.0100, L500.2500 ####[facility] [address] [place], [address] Hematocrit (Bld) [Volume fraction] 33.6 % Low 40-54 [facility] Comment on above: Performed By: #### L 100.0100, L500.2500 ####[facility] [address] [place], [address] Hemoglobin (Bld) [Mass/Vol] 11.1 g/dL Low 13.0-16.5 [facility] Comment on above: Performed By: #### L 100.0100, L500.2500 ####[facility] [address] [place], [address] IG% 0.700 Normal 0.0-0.9 [facility] Comment on above: Result Comment: IG% - Immature Granulocytes (promyelocytes, myelocytes andmetamyelocytes) > 1% indicates that a LEFT SHIFT is Present. Performed By: #### L 100.0100, L500.2500 ####[facility] [address] [place], [address] Lymphocytes/100 WBC (Bld) 14.8 % Low 19-41 [facility] Comment on above: Performed By: #### L 100.0100, L500.2500 ####[facility] [address] [place], [address] MCH (RBC) [Entitic mass] 29.1 pg Normal 27.0-32.0 [facility] Comment on above: Performed By: #### L 100.0100, L500.2500 ####[facility] [address] [place], [address] MCHC (RBC) [Mass/Vol] 33.0 g/dL Normal 32-36 [facility] Comment on above: Performed By: #### L 100.0100, L500.2500 ####[facility] [address] [place], [address] MCV (RBC) [Entitic vol] 88.0 fL Normal 80-94 [facility] Comment on above: Performed By: #### L 100.0100, L500.2500 ####[facility] [address] [place], [address] Monocytes/100 WBC (Bld) 9.2 % Normal 0-10 [facility] Comment on above: Performed By: #### L 100.0100, L500.2500 ####[facility] [address] [place], [address] Neutrophils/100 WBC (Bld) 71.2 % High 47-70 [facility] Comment on above: Performed By: #### L 100.0100, L500.2500 ####[facility] [address] [place], [address] Nucleated RBC (Bld) [#/Vol] 0 10*3/uL Normal 0-5 [facility] Comment on above: Performed By: #### L 100.0100, L500.2500 ####[facility] [address] [place], [address] Platelet mean volume (Bld) [Entitic vol] 9.9 fL Normal 6.2-12.0 [facility] Comment on above: Performed By: #### L 100.0100, L500.2500 ####[facility] [address] [place], [address] Platelets (Bld) [#/Vol] 207 10*3/uL Normal 150-450 [facility] Comment on above: Performed By: #### L 100.0100, L500.2500 ####[facility] [address] [place], [address] RBC (Bld) [#/Vol] 3.82 10*6/uL Low 4.6-6.2 [facility] Comment on above: Performed By: #### L 100.0100, L500.2500 ####[facility] [address] [place], [address] RDW SD 49.6 fl High 35.1-43.9 [facility] Comment on above: Performed By: #### L 100.0100, L500.2500 ####[facility] [address] [place], [address] WBC (Bld) [#/Vol] 8.7 10*3/uL Normal 4.4-11.0 [facility] Comment on above: Performed By: #### L 100.0100, L500.2500 ####[facility] [address] [place], [address] Bedside Glucoseon 05-04-2024 FINGERSTICK GLU 124 mg/dL High 74-106 [facility] Comment on above: Result Comment: EARNESTINE GEMENT OF PATIENT CARE PER NURSING PROTOCOL Performed By: #### L 501.080 ####[facility] [address] [place], [address] FINGERSTICK GLU 149 mg/dL High 74-106 [facility] Comment on above: Result Comment: EARNESTINE GEMENT OF PATIENT CARE PER NURSING PROTOCOL Performed By: #### L 501.080 ####[facility] [address] [place], [address] Urinalysis, Completeon 05-04 CAST,HYALINE 0-5 SEEN Normal 0-5 [facility] Comment on above: Order Comment: ZULEYKA TER SPECIMEN Performed By: #### L 400.0001 ####[facility] [address] [place], [address] BACTERIA 0 SEEN Normal None Seen [facility] Comment on above: Order Comment: ZULEYKA TER SPECIMEN Performed By: #### L 400.0001 ####[facility] [address] [place], [address] EPI,SQUAMOUS 0 SEEN Normal 0-5 [facility] Comment on above: Order Comment: ZULEYKA TER SPECIMEN Performed By: #### L 400.0001 ####[facility] [address] [place], [address] Mucus Ql (Urine sed) 0 SEEN Normal [facility] Comment on above: Order Comment: ZULEYKA TER SPECIMEN Performed By: #### L 400.0001 ####[facility] [address] [place], [address] RBC 0 SEEN Normal 0-5 [facility] Comment on above: Order Comment: ZULEYKA TER SPECIMEN Performed By: #### L 400.0001 ####[facility] [address] [place], [address] WBC 0 SEEN Normal 0-5 [facility] Comment on above: Order Comment: ZULEYKA TER SPECIMEN Performed By: #### L 400.0001 ####[facility] [address] [place], [address] Bedside Glucoseon 05-03-2024 FINGERSTICK GLU 122 mg/dL High 74-106 [facility] Comment on above: Result Comment: EARNESTINE GEMENT OF PATIENT CARE PER NURSING PROTOCOL Performed By: #### L 501.080 ####[facility] [address] [place], [address] FINGERSTICK GLU 136 mg/dL High 74-106 [facility] Comment on above: Result Comment: EARNESTINE GEMENT OF PATIENT CARE PER NURSING PROTOCOL Performed By: #### L 501.080 ####[facility] [address] [place], [address] Bedside Glucoseon 05-02-2024 FINGERSTICK GLU 153 mg/dL High [address] [place] [address] Comment on above: Result Comment: EARNESTINE GEMENT OF PATIENT CARE PER NURSING PROTOCOL Performed By: #### L 501.080 ####[facility] [address] [place], [address] FINGERSTICK GLU 143 mg/dL High [address] [place] [address] Comment on above: Result Comment: EARNESTINE GEMENT OF PATIENT CARE PER NURSING PROTOCOL Performed By: #### L 501.080 ####[facility] [address] [place], [address] Bedside Glucoseon 05-01-2024 FINGERSTICK GLU 140 mg/dL High [address] [place] [address] Comment on above: Result Comment: EARNESTINE GEMENT OF PATIENT CARE PER NURSING PROTOCOL Performed By: #### L 501.080 ####[facility] [address] [place], [address] FINGERSTICK GLU 155 mg/dL High [address] [place] [address] Comment on above: Result Comment: EARNESTINE GEMENT OF PATIENT CARE PER NURSING PROTOCOL Performed By: #### L 501.080 ####[facility] [address] [place], [address] FINGERSTICK GLU 132 mg/dL High [address] [place] [address] Comment on above: Result Comment: EARNESTINE GEMENT OF PATIENT CARE PER NURSING PROTOCOL Performed By: #### L 501.080 ####[facility] [address] [place], [address] COVID 19 AG RAPID (FRANKY Armstrong)on 05-01-2024 SARS-CoV-2 (COVID-19) RNA ARIANA+probe Ql (Unsp spec) SARS-CoV-2 (COVID 19) Negative RAPID METHOD BinaxNow COVID19 Ag Card Normal [facility] Comment on above: Performed By: #### M 100.505 ####[facility] [address] [place], [address] Lipid Profileon 05-01-2024 Cholesterol [Mass/Vol] 83 mg/dL Normal 200 [facility] Comment on above: Result Comment: <200 mg/dL Desirable 200-240 mg/dL Borderline >240 mg/dL High Risk Performed By: #### L 500.4100, L506.1000, L503.0105 ####[facility] [address] [place], [address] Cholesterol in HDL [Mass/Vol] 44 mg/dL Normal [facility] Comment on above: Result Comment: The drugs N-Acetylcysteine and Metamizole may falselydepress this assay. Reference Range HDL <40 mg/dL Low HDL Cholesterol HDL >or= 60 mg/dL High HDL Cholesterol Performed By: #### L 500.4100, L506.1000, L503.0105 ####[facility] [address] [place], [address] Cholesterol in LDL [Mass/Vol] 18 mg/dL Normal 0-130 [facility] Comment on above: Performed By: #### L 500.4100, L506.1000, L503.0105 ####[facility] [address] [place], [address] Cholesterol in VLDL [Mass/Vol] 21 mg/dL Normal 5-40 [facility] Comment on above: Performed By: #### L 500.4100, L506.1000, L503.0105 ####[facility] [address] [place], [address] Triglyceride [Mass/Vol] 104 mg/dL Normal [facility] Comment on above: Result Comment: The drugs N-Acetylcysteine and Metamizole may falselydepress this assay.Serum Triglycerides Reference Interval Normal <150 mg/dL Borderline high 150 - 199 mg/dL High 200 - 499 mg/dL Very High > or = 500 mg/dL Performed By: #### L 500.4100, L506.1000, L503.0105 ####[facility] [address] [place], [address] Vitamin B12on 05-01-2024 Cobalamin (Vitamin B12) [Mass/Vol] 1076 pg/mL High 211-911 [facility] Comment on above: Performed By: #### L 500.4100, L506.1000, L503.0105 ####[facility] [address] [place], [address] Vitamin D,25 Hydroxyon 05-01 Vitamin D 25-OH 53.4 ng/mL Normal [facility] Comment on above: Result Comment: Abby min D 25(OH) Status Range Deficiency <20 ng/mL (50nmol/L) Insufficiency 20 - 30 ng/mL (50 - 75 nmol/L) Sufficiency 30 - 100 ng/mL (75 - 250 nmol/L) Toxicity >100 ng/mL (>250 nmol/L) Performed By: #### L 500.4100, L506.1000, L503.0105 ####[facility] [address] [place], [address] Bedside Glucoseon 04-30-2024 FINGERSTICK GLU 133 mg/dL High 74-106 [facility] Comment on above: Result Comment: EARNESTINE GEMENT OF PATIENT CARE PER NURSING PROTOCOL Performed By: #### L 501.080 ####[facility] [address] [place], [address] FINGERSTICK GLU 137 mg/dL High 74-106 [facility] Comment on above: Result Comment: EARNESTINE GEMENT OF PATIENT CARE PER NURSING PROTOCOL Performed By: #### L 501.080 ####[facility] [address] [place], [address] Bedside Glucoseon 4 FINGERSTICK GLU 143 mg/dL High 74-106 [facility] Comment on above: Result Comment: EARNESTINE GEMENT OF PATIENT CARE PER NURSING PROTOCOL Performed By: #### L 501.080 ####[facility] [address] [place], [address] FINGERSTICK GLU 137 mg/dL High 74-106 [facility] Comment on above: Result Comment: EARNESTINE LOPEZ OF PATIENT CARE PER NURSING PROTOCOL Performed By: #### L 501.080 ####[facility] [address] [place], [address] Basic Metabolic Profile (BMP )on 04-28-2024 BUN Normal -18 [facility] Comment on above: Result Comment: Canc elled via OM: Order cancelled - Patient discharged Performed By: #### L 500.2500 ####[facility] [address] [place], [address] BUN/CRE Normal - [facility] Comment on above: Result Comment: Canc elled via OM: Order cancelled - Patient discharged Performed By: #### L 500.2500 ####[facility] [address] [place], [address] CA,Total Normal 8.5-10.1 [facility] Comment on above: Result Comment: Canc elled via OM: Order cancelled - Patient discharged Performed By: #### L 500.2500 ####[facility] [address] [place], [address] CL Normal 98-107 [facility] Comment on above: Result Comment: Canc elled via OM: Order cancelled - Patient discharged Performed By: #### L 500.2500 ####[facility] [address] [place], [address] CO2 Normal 21.0-32.0 [facility] Comment on above: Result Comment: Canc elled via OM: Order cancelled - Patient discharged Performed By: #### L 500.2500 ####[facility] [address] [place], [address] CREAT,SERUM Normal 0.70-1.30 [facility] Comment on above: Result Comment: Canc elled via OM: Order cancelled - Patient discharged Performed By: #### L 500.2500 ####[facility] [address] [place], [address] EST GFR Normal >60 [facility] Comment on above: Result Comment: Canc elled via OM: Order cancelled - Patient discharged Performed By: #### L 500.2500 ####[facility] [address] [place], [address] EST GFR - AA Normal >60 [facility] Comment on above: Result Comment: Canc elled via OM: Order cancelled - Patient discharged Performed By: #### L 500.2500 ####[facility] [address] [place], [address] GAP Normal 5-15 [facility] Comment on above: Result Comment: Canc elled via OM: Order cancelled - Patient discharged Performed By: #### L 500.2500 ####[facility] [address] [place], [address] GLU Normal 74-106 [facility] Comment on above: Result Comment: Canc elled via OM: Order cancelled - Patient discharged Performed By: #### L 500.2500 ####[facility] [address] [place], [address] Potassium Normal 3.5-5.1 [facility] Comment on above: Result Comment: Canc elled via OM: Order cancelled - Patient discharged Performed By: #### L 500.2500 ####[facility] [address] [place], [address] Basic Metabolic Profile (BMP) Normal 136-145 [facility] Comment on above: Result Comment: Canc elled via OM: Order cancelled - Patient discharged Performed By: #### L 500.2500 ####[facility] [address] [place], [address] BUN/CRE 14.7 RATIO Normal 10-20 [facility] Comment on above: Performed By: #### L 100.0100, L500.2500 ####[facility] [address] [place], [address] CA,Total 8.8 mg/dL Normal 8.5-10.1 [facility] Comment on above: Performed By: #### L 100.0100, L500.2500 ####[facility] [address] [place], [address] Chloride [Moles/Vol] 109 mmol/L High 98-107 [facility] Comment on above: Performed By: #### L 100.0100, L500.2500 ####[facility] [address] [place], [address] CO2 [Moles/Vol] 25.0 mmol/L Normal 21.0-32.0 [facility] Comment on above: Performed By: #### L 100.0100, L500.2500 ####[facility] [address] [place], [address] Creatinine [Mass/Vol] 1.77 mg/dL High 0.70-1.30 [facility] Comment on above: Result Comment: The validity of the calculated GFR GFRAA in patients over70 years has not been determined. Clinical correlation isessential. Performed By: #### L 100.0100, L500.2500 ####[facility] [address] [place], [address] ECRCL 42.79 ml/min Normal [facility] Comment on above: Performed By: #### L 100.0100, L500.2500 ####[facility] [address] [place], [address] EST GFR - AA 47 mL/min Low >60 [facility] Comment on above: Result Comment: Afri can Guyanese GFR Calc Performed By: #### L 100.0100, L500.2500 ####[facility] [address] [place], [address] GAP 5 Normal 5-15 [facility] Comment on above: Performed By: #### L 100.0100, L500.2500 ####[facility] [address] [place], [address] GFR/1.73 sq M.predicted among non-blacks MDRD (S/P/Bld) [Vol rate/Area] 39 mL/min/{1.73_m2} Low >60 [facility] Comment on above: Result Comment: Non- GFR Calc Performed By: #### L 100.0100, L500.2500 ####[facility] [address] [place], [address] Glucose [Mass/Vol] 146 mg/dL High 74-106 [facility] Comment on above: Result Comment: Fast ing Glucose result greater than or equal to 126 mg/dLsuggests DIABETES MELLITUS per A.D.A. criteria. Performed By: #### L 100.0100, L500.2500 ####[facility] [address] [place], [address] Potassium [Moles/Vol] 4.0 mmol/L Normal 3.5-5.1 [facility] Comment on above: Performed By: #### L 100.0100, L500.2500 ####[facility] [address] [place], [address] Sodium [Moles/Vol] 138 mmol/L Normal 136-145 [facility] Comment on above: Performed By: #### L 100.0100, L500.2500 ####[facility] [address] [place], [address] Urea nitrogen [Mass/Vol] 26 mg/dL High 7-18 [facility] Comment on above: Performed By: #### L 100.0100, L500.2500 ####[facility] [address] [place], [address] Bedside Glucoseon 04-28-2024 FINGERSTICK GLU 140 mg/dL High 74-106 [facility] Comment on above: Result Comment: EARNESTINE GEMENT OF PATIENT CARE PER NURSING PROTOCOL Performed By: #### L 501.080 ####[facility] [address] [place], [address] FINGERSTICK GLU 149 mg/dL High 74-106 [facility] Comment on above: Result Comment: EARNESTINE GEMENT OF PATIENT CARE PER NURSING PROTOCOL Performed By: #### L 501.080 ####[facility] [address] [place], [address] CBC W/Diff, Automatedon 04-10 0 Absolute Lymph 1.40 X10 3/uL Normal 0.83-4.51 [facility] Comment on above: Performed By: #### L 100.0100, L500.2500 ####[facility] [address] [place], [address] Absolute Neut 6.0 X10 3/uL Normal 2.0-7.7 [facility] Comment on above: Performed By: #### L 100.0100, L500.2500 ####[facility] [address] [place], [address] Basophils/100 WBC (Bld) 0.5 % Normal 0-1 [facility] Comment on above: Performed By: #### L 100.0100, L500.2500 ####[facility] [address] [place], [address] Eosinophils/100 WBC (Bld) 4.9 % Normal 0-5 [facility] Comment on above: Performed By: #### L 100.0100, L500.2500 ####[facility] [address] [place], [address] Erythrocyte distribution width (RBC) [Ratio] 15.8 % High 11.6-14.6 [facility] Comment on above: Performed By: #### L 100.0100, L500.2500 ####[facility] [address] [place], [address] Hematocrit (Bld) [Volume fraction] 31.3 % Low 40-54 [facility] Comment on above: Performed By: #### L 100.0100, L500.2500 ####[facility] [address] [place], [address] Hemoglobin (Bld) [Mass/Vol] 10.2 g/dL Low 13.0-16.5 [facility] Comment on above: Performed By: #### L 100.0100, L500.2500 ####[facility] [address] [place], [address] IG% 0.700 Normal 0.0-0.9 [facility] Comment on above: Result Comment: IG% - Immature Granulocytes (promyelocytes, myelocytes andmetamyelocytes) > 1% indicates that a LEFT SHIFT is Present. Performed By: #### L 100.0100, L500.2500 ####[facility] [address] [place], [address] Lymphocytes/100 WBC (Bld) 16.0 % Low 19-41 [facility] Comment on above: Performed By: #### L 100.0100, L500.2500 ####[facility] [address] [place], [address] MCH (RBC) [Entitic mass] 29.1 pg Normal 27.0-32.0 [facility] Comment on above: Performed By: #### L 100.0100, L500.2500 ####[facility] [address] [place], [address] MCHC (RBC) [Mass/Vol] 32.6 g/dL Normal 32-36 [facility] Comment on above: Performed By: #### L 100.0100, L500.2500 ####[facility] [address] [place], [address] MCV (RBC) [Entitic vol] 89.4 fL Normal 80-94 [facility] Comment on above: Performed By: #### L 100.0100, L500.2500 ####[facility] [address] [place], [address] Monocytes/100 WBC (Bld) 9.6 % Normal 0-10 [facility] Comment on above: Performed By: #### L 100.0100, L500.2500 ####[facility] [address] [place], [address] Neutrophils/100 WBC (Bld) 68.3 % Normal 47-70 [facility] Comment on above: Performed By: #### L 100.0100, L500.2500 ####[facility] [address] [place], [address] Nucleated RBC (Bld) [#/Vol] 0 10*3/uL Normal 0-5 [facility] Comment on above: Performed By: #### L 100.0100, L500.2500 ####[facility] [address] [place] [place], [address] Platelet mean volume (Bld) [Entitic vol] 9.6 fL Normal 6.2-12.0 [facility] Comment on above: Performed By: #### L 100.0100, L500.2500 ####[facility] [address] [place], [address] Platelets (Bld) [#/Vol] 218 10*3/uL Normal 150-450 [facility] Comment on above: Performed By: #### L 100.0100, L500.2500 ####[facility] [address] [place], [address] RBC (Bld) [#/Vol] 3.50 10*6/uL Low 4.6-6.2 [facility] Comment on above: Performed By: #### L 100.0100, L500.2500 ####[facility] [address] [place], [address] RDW SD 51.0 fl High 35.1-43.9 [facility] Comment on above: Performed By: #### L 100.0100, L500.2500 ####[facility] [address] [place], [address] WBC (Bld) [#/Vol] 8.7 10*3/uL Normal 4.4-11.0 [facility] Comment on above: Performed By: #### L 100.0100, L500.2500 ####[facility] [address] [place], [address] Basic Metabolic Profile (BMP )on 04-27-2024 BUN/CRE 13.9 RATIO Normal 10-20 [facility] Comment on above: Performed By: #### L 500.2500 ####[facility] [address] [place], [address] CA,Total 8.9 mg/dL Normal 8.5-10.1 [facility] Comment on above: Performed By: #### L 500.2500 ####[facility] [address] [place], [address] Chloride [Moles/Vol] 111 mmol/L High 98-107 [facility] Comment on above: Performed By: #### L 500.2500 ####[facility] [address] [place], [address] CO2 [Moles/Vol] 23.0 mmol/L Normal 21.0-32.0 [facility] Comment on above: Performed By: #### L 500.2500 ####[facility] [address] [place], [address] Creatinine [Mass/Vol] 1.87 mg/dL High 0.70-1.30 [facility] Comment on above: Result Comment: The validity of the calculated GFR GFRAA in patients over70 years has not been determined. Clinical correlation isessential. Performed By: #### L 500.2500 ####[facility] [address] [place], [address] ECRCL 39.02 ml/min Normal [facility] Comment on above: Performed By: #### L 500.2500 ####[facility] [address] [place], [address] EST GFR - AA 45 mL/min Low >60 [facility] Comment on above: Result Comment: Afri can Guyanese GFR Calc Performed By: #### L 500.2500 ####[facility] [address] [place], [address] GAP 5 Normal 5-15 [facility] Comment on above: Performed By: #### L 500.2500 ####[facility] [address] [place], [address] GFR/1.73 sq M.predicted among non-blacks MDRD (S/P/Bld) [Vol rate/Area] 37 mL/min/{1.73_m2} Low >60 [facility] Comment on above: Result Comment: Non- GFR Calc Performed By: #### L 500.2500 ####[facility] [address] [place], [address] Glucose [Mass/Vol] 152 mg/dL High 74-106 [facility] Comment on above: Result Comment: Fast ing Glucose result greater than or equal to 126 mg/dLsuggests DIABETES MELLITUS per A.D.A. criteria. Performed By: #### L 500.2500 ####[facility] [address] [place], [address] Potassium [Moles/Vol] 4.3 mmol/L Normal 3.5-5.1 [facility] Comment on above: Performed By: #### L 500.2500 ####[facility] [address] [place], [address] Sodium [Moles/Vol] 138 mmol/L Normal 136-145 [facility] Comment on above: Performed By: #### L 500.2500 ####[facility] [address] [place], [address] Urea nitrogen [Mass/Vol] 26 mg/dL High 7-18 [facility] Comment on above: Performed By: #### L 500.2500 ####[facility] [address] [place], [address] Bedside Glucoseon 04-27-2024 FINGERSTICK GLU 198 mg/dL High 74-106 [facility] Comment on above: Result Comment: EARNESTINE GEMENT OF PATIENT CARE PER NURSING PROTOCOL Performed By: #### L 501.080 ####[facility] [address] [place], [address] FINGERSTICK GLU 150 mg/dL High 74-106 [facility] Comment on above: Result Comment: EARNESTINE GEMENT OF PATIENT CARE PER NURSING PROTOCOL Performed By: #### L 501.080 ####[facility] [address] [place], [address] CBC-Complete Blood Cnt No Di ffon 04-27-2024 Erythrocyte distribution width (RBC) [Ratio] 15.6 % High 11.6-14.6 [facility] Comment on above: Performed By: #### L 100.0500 ####[facility] [address] [place], [address] Hematocrit (Bld) [Volume fraction] 31.1 % Low 40-54 [facility] Comment on above: Performed By: #### L 100.0500 ####[facility] [address] [place], [address] Hemoglobin (Bld) [Mass/Vol] 9.7 g/dL Low 13.0-16.5 [facility] Comment on above: Performed By: #### L 100.0500 ####[facility] [address] [place], [address] MCH (RBC) [Entitic mass] 28.2 pg Normal 27.0-32.0 [facility] Comment on above: Performed By: #### L 100.0500 ####[facility] [address] [place], [address] MCHC (RBC) [Mass/Vol] 31.2 g/dL Low 32-36 [facility] Comment on above: Performed By: #### L 100.0500 ####[facility] [address] [place], [address] MCV (RBC) [Entitic vol] 90.4 fL Normal 80-94 [facility] Comment on above: Performed By: #### L 100.0500 ####[facility] [address] [place], [address] Platelet mean volume (Bld) [Entitic vol] 9.8 fL Normal 6.2-12.0 [facility] Comment on above: Performed By: #### L 100.0500 ####[facility] [address] [place], [address] Platelets (Bld) [#/Vol] 209 10*3/uL Normal 150-450 [facility] Comment on above: Performed By: #### L 100.0500 ####[facility] [address] [place], [address] RBC (Bld) [#/Vol] 3.44 10*6/uL Low 4.6-6.2 [facility] Comment on above: Performed By: #### L 100.0500 ####[facility] [address] [place], [address] RDW SD 50.0 fl High 35.1-43.9 [facility] Comment on above: Performed By: #### L 100.0500 ####[facility] [address] [place], [address] WBC (Bld) [#/Vol] 9.6 10*3/uL Normal 4.4-11.0 [facility] Comment on above: Performed By: #### L 100.0500 ####[facility] [address] [place], [address] CNPNon 04-27-2024 CNPN Normal [facility] Basic Metabolic Profile (BMP )on 04-26-2024 BUN/CRE 16.1 RATIO Normal 10-20 [facility] Comment on above: Performed By: #### L 500.2500 ####[facility] [address] [place], [address] CA,Total 8.8 mg/dL Normal 8.5-10.1 [facility] Comment on above: Performed By: #### L 500.2500 ####[facility] [address] [place], [address] Chloride [Moles/Vol] 111 mmol/L High 98-107 [facility] Comment on above: Performed By: #### L 500.2500 ####[facility] [address] [place], [address] CO2 [Moles/Vol] 24.0 mmol/L Normal 21.0-32.0 [facility] Comment on above: Performed By: #### L 500.2500 ####[facility] [address] [place], [address] Creatinine [Mass/Vol] 1.68 mg/dL High 0.70-1.30 [facility] Comment on above: Result Comment: The validity of the calculated GFR GFRAA in patients over70 years has not been determined. Clinical correlation isessential. Performed By: #### L 500.2500 ####[facility] [address] [place], [address] ECRCL 43.43 ml/min Normal [facility] Comment on above: Performed By: #### L 500.2500 ####[facility] [address] [place], [address] EST GFR - AA 50 mL/min Low >60 [facility] Comment on above: Result Comment: Afri can Guyanese GFR Calc Performed By: #### L 500.2500 ####[facility] [address] [place], [address] GAP 4 Low 5-15 [facility] Comment on above: Performed By: #### L 500.2500 ####[facility] [address] [place], [address] GFR/1.73 sq M.predicted among non-blacks MDRD (S/P/Bld) [Vol rate/Area] 42 mL/min/{1.73_m2} Low >60 [facility] Comment on above: Result Comment: Non- GFR Calc Performed By: #### L 500.2500 ####[facility] [address] [place], [address] Glucose [Mass/Vol] 123 mg/dL High 74-106 [facility] Comment on above: Result Comment: Fast ing Glucose result from 100 to 125 mg/dLsuggests IMPAIRED HOMEOSTASIS per A.D.A. criteria. Performed By: #### L 500.2500 ####[facility] [address] [place], [address] Potassium [Moles/Vol] 4.5 mmol/L Normal 3.5-5.1 [facility] Comment on above: Performed By: #### L 500.2500 ####[facility] [address] [place], [address] Sodium [Moles/Vol] 139 mmol/L Normal 136-145 [facility] Comment on above: Performed By: #### L 500.2500 ####[facility] [address] [place], [address] Urea nitrogen [Mass/Vol] 27 mg/dL High 7-18 [facility] Comment on above: Performed By: #### L 500.2500 ####[facility] [address] [place], [address] Bedside Glucoseon 04-26-2024 FINGERSTICK GLU 156 mg/dL High 74-106 [facility] Comment on above: Result Comment: EARNESTINE GEMENT OF PATIENT CARE PER NURSING PROTOCOL Performed By: #### L 501.080 ####[facility] [address] [place], [address] FINGERSTICK GLU 163 mg/dL High 74-106 [facility] Comment on above: Result Comment: EARNESTINE GEMENT OF PATIENT CARE PER NURSING PROTOCOL Performed By: #### L 501.080 ####[facility] [address] [place], [address] FINGERSTICK GLU 170 mg/dL High 74-106 [facility] Comment on above: Result Comment: EARNESTINE GEMENT OF PATIENT CARE PER NURSING PROTOCOL Performed By: #### L 501.080 ####[facility] [address] [place], [address] FINGERSTICK GLU 122 mg/dL High 74-106 [facility] Comment on above: Result Comment: EARNESTINE GEMENT OF PATIENT CARE PER NURSING PROTOCOL Performed By: #### L 501.080 ####[facility] [address] [place], [address] CNPNon 04-26-2024 CNPN Normal [facility] Modified Barium Swallow Stud yon 04-26-2024 Modified Barium Swallow Study Normal [facility] 12 Lead EKGon 04-25-2024 12 Lead EKG Normal [facility] Basic Metabolic Profile (BMP )on 04-25-2024 BUN/CRE 16.5 RATIO Normal 10-20 [facility] Comment on above: Performed By: #### L 100.0100, L500.2500 ####[facility] [address] [place], [address] CA,Total 9.2 mg/dL Normal 8.5-10.1 [facility] Comment on above: Performed By: #### L 100.0100, L500.2500 ####[facility] [address] [place], [address] Chloride [Moles/Vol] 109 mmol/L High 98-107 [facility] Comment on above: Performed By: #### L 100.0100, L500.2500 ####[facility] [address] [place], [address] CO2 [Moles/Vol] 23.0 mmol/L Normal 21.0-32.0 [facility] Comment on above: Performed By: #### L 100.0100, L500.2500 ####[facility] [address] [place], [address] Creatinine [Mass/Vol] 1.76 mg/dL High 0.70-1.30 [facility] Comment on above: Result Comment: The validity of the calculated GFR GFRAA in patients over70 years has not been determined. Clinical correlation isessential. Performed By: #### L 100.0100, L500.2500 ####[facility] [address] [place], [address] ECRCL 41.45 ml/min Normal [facility] Comment on above: Performed By: #### L 100.0100, L500.2500 ####[facility] [address] [place], [address] EST GFR - AA 48 mL/min Low >60 [facility] Comment on above: Result Comment: Afri can Guyanese GFR Calc Performed By: #### L 100.0100, L500.2500 ####[facility] [address] [place], [address] GAP 7 Normal 5-15 [facility] Comment on above: Performed By: #### L 100.0100, L500.2500 ####[facility] [address] [place], [address] GFR/1.73 sq M.predicted among non-blacks MDRD (S/P/Bld) [Vol rate/Area] 39 mL/min/{1.73_m2} Low >60 [facility] Comment on above: Result Comment: Non- GFR Calc Performed By: #### L 100.0100, L500.2500 ####[facility] [address] [place], [address] Glucose [Mass/Vol] 170 mg/dL High 74-106 [facility] Comment on above: Result Comment: Fast ing Glucose result greater than or equal to 126 mg/dLsuggests DIABETES MELLITUS per A.D.A. criteria. Performed By: #### L 100.0100, L500.2500 ####[facility] [address] [place], [address] Potassium [Moles/Vol] 5.0 mmol/L Normal 3.5-5.1 [facility] Comment on above: Performed By: #### L 100.0100, L500.2500 ####[facility] [address] [place], [address] Sodium [Moles/Vol] 138 mmol/L Normal 136-145 [facility] Comment on above: Performed By: #### L 100.0100, L500.2500 ####[facility] [address] [place], [address] Urea nitrogen [Mass/Vol] 29 mg/dL High 7-18 [facility] Comment on above: Performed By: #### L 100.0100, L500.2500 ####[facility] [address] [place], [address] Bedside Glucoseon 04-25-2024 FINGERSTICK GLU 107 mg/dL High 74-106 [facility] Comment on above: Result Comment: EARNESTINE GEMENT OF PATIENT CARE PER NURSING PROTOCOL Performed By: #### L 501.080 ####[facility] [address] [place], [address] FINGERSTICK GLU 138 mg/dL High -106 [facility] Comment on above: Result Comment: EARNESTINE GEMENT OF PATIENT CARE PER NURSING PROTOCOL Performed By: #### L 501.080 ####[facility] [address] [place], [address] FINGERSTICK GLU 134 mg/dL High -106 [facility] Comment on above: Result Comment: EARNESTINE GEMENT OF PATIENT CARE PER NURSING PROTOCOL Performed By: #### L 501.080 ####[facility] [address] [place], [address] FINGERSTICK GLU 146 mg/dL High [facility]106 [facility] Comment on above: Result Comment: EARNESTINE GEMENT OF PATIENT CARE PER NURSING PROTOCOL Performed By: #### L 501.080 ####[facility] [address] [place], [address] FINGERSTICK GLU 144 mg/dL High -[address] [place] [address] Comment on above: Result Comment: EARNESTINE GEMENT OF PATIENT CARE PER NURSING PROTOCOL Performed By: #### L 501.080 ####[facility] [address] [place], [address] CBC W/Diff, Automatedon - Absolute Lymph 0.85 X10 3/uL Normal 0.83-4.51 [facility] Comment on above: Performed By: #### L 100.0100, L500.2500 ####[facility] [address] [place], [address] Absolute Neut 10.0 X10 3/uL High 2.0-7.7 [facility] Comment on above: Performed By: #### L 100.0100, L500.2500 ####[facility] [address] [place], [address] Basophils/100 WBC (Bld) 0.2 % Normal 0-1 [facility] Comment on above: Performed By: #### L 100.0100, L500.2500 ####[facility] [address] [place], [address] Eosinophils/100 WBC (Bld) 1.3 % Normal 0-5 [facility] Comment on above: Performed By: #### L 100.0100, L500.2500 ####[facility] [address] [place], [address] Erythrocyte distribution width (RBC) [Ratio] 15.6 % High 11.6-14.6 [facility] Comment on above: Performed By: #### L 100.0100, L500.2500 ####[facility] [address] [place], [address] Hematocrit (Bld) [Volume fraction] 33.3 % Low 40-54 [facility] Comment on above: Performed By: #### L 100.0100, L500.2500 ####[facility] [address] [place], [address] Hemoglobin (Bld) [Mass/Vol] 10.6 g/dL Low 13.0-16.5 [facility] Comment on above: Performed By: #### L 100.0100, L500.2500 ####[facility] [address] [place], [address] IG% 0.600 Normal 0.0-0.9 [facility] Comment on above: Result Comment: IG% - Immature Granulocytes (promyelocytes, myelocytes andmetamyelocytes) > 1% indicates that a LEFT SHIFT is Present. Performed By: #### L 100.0100, L500.2500 ####[facility] [address] [place], [address] Lymphocytes/100 WBC (Bld) 7.1 % Low 19-41 [facility] Comment on above: Performed By: #### L 100.0100, L500.2500 ####[facility] [address] [place], [address] MCH (RBC) [Entitic mass] 29.0 pg Normal 27.0-32.0 [facility] Comment on above: Performed By: #### L 100.0100, L500.2500 ####[facility] [address] [place], [address] MCHC (RBC) [Mass/Vol] 31.8 g/dL Low 32-36 [facility] Comment on above: Performed By: #### L 100.0100, L500.2500 ####[facility] [address] [place], [address] MCV (RBC) [Entitic vol] 91.0 fL Normal 80-94 [facility] Comment on above: Performed By: #### L 100.0100, L500.2500 ####[facility] [address] [place], [address] Monocytes/100 WBC (Bld) 6.6 % Normal 0-10 [facility] Comment on above: Performed By: #### L 100.0100, L500.2500 ####[facility] [address] [place], [address] Neutrophils/100 WBC (Bld) 84.2 % High 47-70 [facility] Comment on above: Performed By: #### L 100.0100, L500.2500 ####[facility] [address] [place], [address] Nucleated RBC (Bld) [#/Vol] 0.2 10*3/uL Normal 0-5 [facility] Comment on above: Performed By: #### L 100.0100, L500.2500 ####[facility] [address] [place], [address] Platelet mean volume (Bld) [Entitic vol] 9.9 fL Normal 6.2-12.0 [facility] Comment on above: Performed By: #### L 100.0100, L500.2500 ####[facility] [address] [place], [address] Platelets (Bld) [#/Vol] 223 10*3/uL Normal 150-450 [facility] Comment on above: Performed By: #### L 100.0100, L500.2500 ####[facility] [address] [place], [address] RBC (Bld) [#/Vol] 3.66 10*6/uL Low 4.6-6.2 [facility] Comment on above: Performed By: #### L 100.0100, L500.2500 ####[facility] [address] [place], [address] RDW SD 50.2 fl High 35.1-43.9 [facility] Comment on above: Performed By: #### L 100.0100, L500.2500 ####[facility] [address] [place], [address] WBC (Bld) [#/Vol] 11.9 10*3/uL High 4.4-11.0 [facility] Comment on above: Performed By: #### L 100.0100, L500.2500 ####[facility] [address] [place], [address] 12 Lead EKGon 04-24-2024 12 Lead EKG Normal [facility] 12 Lead EKG Normal [facility] Brain/Head without Contrasto n 04-24-2024 Brain/Head without Contrast Normal [facility] CBC W/Diff, Automatedon 12- Absolute Lymph 1.01 X10 3/uL Normal 0.83-4.51 [facility] Comment on above: Performed By: #### L 500.4050, L501.5425, L100.0100 ####[facility] [address] [place], [address] Absolute Neut 8.8 X10 3/uL High 2.0-7.7 [facility] Comment on above: Performed By: #### L 500.4050, L501.5425, L100.0100 ####[facility] [address] [place], [address] Basophils/100 WBC (Bld) 0.3 % Normal 0-1 [facility] Comment on above: Performed By: #### L 500.4050, L501.5425, L100.0100 ####[facility] [address] [place], [address] Eosinophils/100 WBC (Bld) 2.1 % Normal 0-5 [facility] Comment on above: Performed By: #### L 500.4050, L501.5425, L100.0100 ####[facility] [address] [place], [address] Erythrocyte distribution width (RBC) [Ratio] 15.7 % High 11.6-14.6 [facility] Comment on above: Performed By: #### L 500.4050, L501.5425, L100.0100 ####[facility] [address] [place], [address] Hematocrit (Bld) [Volume fraction] 33.4 % Low 40-54 [facility] Comment on above: Performed By: #### L 500.4050, L501.5425, L100.0100 ####[facility] [address] [place], [address] Hemoglobin (Bld) [Mass/Vol] 10.6 g/dL Low 13.0-16.5 [facility] Comment on above: Performed By: #### L 500.4050, L501.5425, L100.0100 ####[facility] [address] [place], [address] IG% 0.600 Normal 0.0-0.9 [facility] Comment on above: Result Comment: IG% - Immature Granulocytes (promyelocytes, myelocytes andmetamyelocytes) > 1% indicates that a LEFT SHIFT is Present. Performed By: #### L 500.4050, L501.5425, L100.0100 ####[facility] [address] [place], [address] Lymphocytes/100 WBC (Bld) 9.3 % Low 19-41 [facility] Comment on above: Performed By: #### L 500.4050, L501.5425, L100.0100 ####[facility] [address] [place], [address] MCH (RBC) [Entitic mass] 28.9 pg Normal 27.0-32.0 [facility] Comment on above: Performed By: #### L 500.4050, L501.5425, L100.0100 ####[facility] [address] [place], [address] MCHC (RBC) [Mass/Vol] 31.7 g/dL Low 32-36 [facility] Comment on above: Performed By: #### L 500.4050, L501.5425, L100.0100 ####[facility] [address] [place], [address] MCV (RBC) [Entitic vol] 91.0 fL Normal 80-94 [facility] Comment on above: Performed By: #### L 500.4050, L501.5425, L100.0100 ####[facility] [address] [place], [address] Monocytes/100 WBC (Bld) 7.2 % Normal 0-10 [facility] Comment on above: Performed By: #### L 500.4050, L501.5425, L100.0100 ####[facility] [address] [place], [address] Neutrophils/100 WBC (Bld) 80.5 % High 47-70 [facility] Comment on above: Performed By: #### L 500.4050, L501.5425, L100.0100 ####[facility] [address] [place], [address] Nucleated RBC (Bld) [#/Vol] 0 10*3/uL Normal 0-5 [facility] Comment on above: Performed By: #### L 500.4050, L501.5425, L100.0100 ####[facility] [address] [place], [address] Platelet mean volume (Bld) [Entitic vol] 9.9 fL Normal 6.2-12.0 [facility] Comment on above: Performed By: #### L 500.4050, L501.5425, L100.0100 ####[facility] [address] [place], [address] Platelets (Bld) [#/Vol] 233 10*3/uL Normal 150-450 [facility] Comment on above: Performed By: #### L 500.4050, L501.5425, L100.0100 ####[facility] [address] [place], [address] RBC (Bld) [#/Vol] 3.67 10*6/uL Low 4.6-6.2 [facility] Comment on above: Performed By: #### L 500.4050, L501.5425, L100.0100 ####[facility] [address] [place], [address] RDW SD 51.3 fl High 35.1-43.9 [facility] Comment on above: Performed By: #### L 500.4050, L501.5425, L100.0100 ####[facility] [address] [place], [address] WBC (Bld) [#/Vol] 10.9 10*3/uL Normal 4.4-11.0 [facility] Comment on above: Performed By: #### L 500.4050, L501.5425, L100.0100 ####[facility] [address] [place], [address] Chest PA and Lateralon 04-24 Chest PA and Lateral Normal [facility] Comprehensive Metabolic Prof ilon 04-24-2024 Albumin [Mass/Vol] 2.9 g/dL Low 3.2-5.0 [facility] Comment on above: Order Comment: 1Y Performed By: #### L 500.4050, L501.5425, L100.0100 ####[facility] [address] [place], [address] Albumin/Globulin [Mass ratio] 0.7 {ratio} Low 0.9-2.4 [facility] Comment on above: Order Comment: 1Y Performed By: #### L 500.4050, L501.5425, L100.0100 ####[facility] [address] [place], [address] ALK P 76 U/L Normal 45-117 [facility] [facility] Comment on above: Order Comment: 1Y Performed By: #### L 500.4050, L501.5425, L100.0100 ####[facility] [address] [place], [address] ALT [Catalytic activity/Vol] 12 U/L Low 16-61 [facility] Comment on above: Order Comment: 1Y Performed By: #### L 500.4050, L501.5425, L100.0100 ####[facility] [address] [place], [address] AST [Catalytic activity/Vol] 9 U/L Low 15-37 [facility] Comment on above: Order Comment: 1Y Performed By: #### L 500.4050, L501.5425, L100.0100 ####[facility] [address] [place], [address] Bilirubin [Mass/Vol] 0.70 mg/dL Normal 0.20-1.00 [facility] Comment on above: Order Comment: 1Y Result Comment: For patients on eltrombopag therapy, use of Dimension [place] TBIL is not recommended. Performed By: #### L 500.4050, L501.5425, L100.0100 ####[facility] [address] [place], [address] BUN/CRE 12.6 RATIO Normal 10-20 [facility] Comment on above: Order Comment: 1Y Performed By: #### L 500.4050, L501.5425, L100.0100 ####[facility] [address] [place], [address] CA,Total 9.4 mg/dL Normal 8.5-10.1 [facility] Comment on above: Order Comment: 1Y Performed By: #### L 500.4050, L501.5425, L100.0100 ####[facility] [address] [place], [address] Chloride [Moles/Vol] 108 mmol/L High 98-107 [facility] Comment on above: Order Comment: 1Y Performed By: #### L 500.4050, L501.5425, L100.0100 ####[facility] [address] [place], [address] CO2 [Moles/Vol] 25.0 mmol/L Normal 21.0-32.0 [facility] Comment on above: Order Comment: 1Y Performed By: #### L 500.4050, L501.5425, L100.0100 ####[facility] [address] [place], [address] Creatinine [Mass/Vol] 2.47 mg/dL High 0.70-1.30 [facility] Comment on above: Order Comment: 1Y Result Comment: The validity of the calculated GFR GFRAA in patients over70 years has not been determined. Clinical correlation isessential. Performed By: #### L 500.4050, L501.5425, L100.0100 ####[facility] [address] [place], [address] ECRCL 31.04 ml/min Normal [facility] Comment on above: Order Comment: 1Y Performed By: #### L 500.4050, L501.5425, L100.0100 ####[facility] [address] [place], [address] EST GFR - AA 32 mL/min Low >60 [facility] Comment on above: Order Comment: 1Y Result Comment: Afri can Guyanese GFR Calc Performed By: #### L 500.4050, L501.5425, L100.0100 ####[facility] [address] [place], [address] GAP 4 Low 5-15 [facility] Comment on above: Order Comment: 1Y Performed By: #### L 500.4050, L501.5425, L100.0100 ####[facility] [address] [place], [address] GFR/1.73 sq M.predicted among non-blacks MDRD (S/P/Bld) [Vol rate/Area] 27 mL/min/{1.73_m2} Low >60 [facility] Comment on above: Order Comment: 1Y Result Comment: Non- GFR Calc Performed By: #### L 500.4050, L501.5425, L100.0100 ####[facility] [address] [place], [address] Globulin (S) [Mass/Vol] 4.2 g/dL Normal 2.2-4.2 [facility] Comment on above: Order Comment: 1Y Performed By: #### L 500.4050, L501.5425, L100.0100 ####[facility] [address] [place], [address] Glucose [Mass/Vol] 137 mg/dL High 74-106 [facility] Comment on above: Order Comment: 1Y Result Comment: Fast ing Glucose result greater than or equal to 126 mg/dLsuggests DIABETES MELLITUS per A.D.A. criteria. Performed By: #### L 500.4050, L501.5425, L100.0100 ####[facility] [address] [place], [address] Potassium [Moles/Vol] 5.4 mmol/L High 3.5-5.1 [facility] Comment on above: Order Comment: 1Y Performed By: #### L 500.4050, L501.5425, L100.0100 ####[facility] [address] [place], [address] Sodium [Moles/Vol] 137 mmol/L Normal 136-145 [facility] Comment on above: Order Comment: 1Y Performed By: #### L 500.4050, L501.5425, L100.0100 ####[facility] [address] [place], [address] T PROT 7.1 g/dL Normal 6.4-8.2 [facility] Comment on above: Order Comment: 1Y Performed By: #### L 500.4050, L501.5425, L100.0100 ####[facility] [address] [place], [address] Urea nitrogen [Mass/Vol] 31 mg/dL High 7-18 [facility] Comment on above: Order Comment: 1Y Performed By: #### L 500.4050, L501.5425, L100.0100 ####[facility] [address] [place], [address] Echo Complete W/ Contraston 04-24-2024 Echo Complete W/ Contrast Normal [facility] Emergency Department Summary on 04-24-2024 Emergency Department Summary Normal [facility] H AND P Exam - Hospitaliston 04-24-2024 H&P Exam - Hospitalist Normal [facility] L501.4020on 04-24-2024 TROPONIN-I HS 24 pg/mL Normal 3.0-78.0 [facility] Comment on above: Result Comment: Plea se Note: New Test Units and Gender Specific Reference Ranges. For more information see Policy Stat Procedure [place] High Sensitivity Troponin (TNIH) and attachments. Performed By: #### L 501.4020 ####[facility] [address] [place], [address] L501.5425on 04-24-2024 TROPONIN-I HS 26 pg/mL Normal 3.0-78.0 [facility] Comment on above: Order Comment: 1Y Result Comment: Plea se Note: New Test Units and Gender Specific Reference Ranges. For more information see Policy Stat Procedure [place] High Sensitivity Troponin (TNIH) and attachments. Performed By: #### L 500.4050, L501.5425, L100.0100 ####[facility] [address] [place], [address] M100.678on 04-24-2024 M100.678 Pending SARS-CoV-2 (COVID 19) Negative INFLUENZA A Negative INFLUENZA B Negative RSV PCR Negative Normal [facility] Comment on above: Performed By: #### M 100.678, L400.0001 ####[facility] [address] [place], [address] Thyroid Stim Hormone (TSH)on 04-24-2024 TSH 3.140 uIU/mL Normal 0.358-3.74 0 [facility] Comment on above: Performed By: #### L 501.9520 ####[facility] [address] [place], [address] Urinalysis, Completeon 04-24 BACTERIA RARE Normal None Seen [facility] Comment on above: Order Comment: COLLE CTOR TO SPECIFY Performed By: #### M 100.678, L400.0001 ####[facility] [address] [place], [address] RBC 0-5 SEEN Normal 0-5 [facility] Comment on above: Order Comment: COLLE CTOR TO SPECIFY Performed By: #### M 100.678, L400.0001 ####[facility] [address] [place], [address] WBC 0-5 SEEN Normal 0-5 [facility] Comment on above: Order Comment: COLLE CTOR TO SPECIFY Performed By: #### M 100.678, L400.0001 ####[facility] [address] [place], [address] EPI,SQUAMOUS 0 SEEN Normal 0-5 [facility] Comment on above: Order Comment: COLLE CTOR TO SPECIFY Performed By: #### M 100.678, L400.0001 ####[facility] [address] [place], [address] Mucus Ql (Urine sed) 0 SEEN Normal [facility] Comment on above: Order Comment: COLLE CTOR TO SPECIFY Performed By: #### M 100.678, L400.0001 ####[facility] [address] [place], [address] CNPNon 04-20-2024 CNPN Normal [facility] CBC W Auto Differential pane l (Bld)on 04-17-2024 Basophils (Bld) [#/Vol] 0.04 10*3/uL Normal <0.11 [facility] Comment on above: Order Comment: Speci men Type: BLOOD SPECIMENOrdering Facility: [facility] Address: [address] [place] [address] Performed By: #### 5 7021-8 ####[facility]ENTER[facility] [id number] [address] STATES [facility] LABCLIA [id number] [place] [address] [place] Basophils/100 WBC (Bld) 0.4 % Normal [facility] Comment on above: Order Comment: Speci men Type: BLOOD SPECIMENOrdering Facility: [facility] Address: [address] [place] [address] Performed By: #### 5 7021-8 ####[facility] [id number] [address] STATES OF [facility] LABCLIA [id number] [place] [address] [place] Differential cell count method Nom (Bld) Auto Normal [facility] Comment on above: Order Comment: Speci men Type: BLOOD SPECIMENOrdering Facility: [facility] Address: [address] [place] [address] Performed By: #### 5 7021-8 ####[facility]ENTERLIA [id number] [place] [address] [place] [facility] LABCLIA [id number] [facility] [place] [address] [place] Eosinophils (Bld) [#/Vol] 0.37 10*3/uL Normal <0.46 [facility] Comment on above: Order Comment: Speci men Type: BLOOD SPECIMENOrdering Facility: [facility] Address: [address] [place] [address] Performed By: #### 5 7021-8 ####[facility] [id number] [address] LABCLIA [id number] [place] [address] [place] Eosinophils/100 WBC (Bld) 3.6 % Normal [facility] Comment on above: Order Comment: Speci men Type: BLOOD SPECIMENOrdering Facility: [facility] Address: [address] [place] [address] Performed By: #### 5 7021-8 ####[facility]INGSA [id number] [address] LABCLIA [id number] [place] [address] [place] Erythrocyte distribution width (RBC) [Ratio] 15.2 % High 11.5-15.0 [facility] Comment on above: Order Comment: Speci men Type: BLOOD SPECIMENOrdering Facility: [facility] Address: [address] [place] [address] Performed By: #### 5 7021-8 ####[facility] [id number] [address] LABCLIA [id number] [place] [address] [place] Hematocrit (Bld) [Volume fraction] 29.8 % Low 39.0-51.0 [facility] Comment on above: Order Comment: Speci men Type: BLOOD SPECIMENOrdering Facility: [facility] Address: [address] [place] [address] Performed By: #### 5 7021-8 ####[facility] MILLWNCLIA [id number] [address] LABCLIA [id number] [place] [address] [place] Hemoglobin (Bld) [Mass/Vol] 9.7 g/dL Low 13.0-17.0 [facility] Comment on above: Order Comment: Speci men Type: BLOOD SPECIMENOrdering Facility: [facility] Address: [address] [place] [address] Performed By: #### 5 7021-8 ####[facility]ITALNCA [id number] [address] LABCLIA [id number] [place] [address] [place] Immature granulocytes (Bld) [#/Vol] 0.08 10*3/uL Normal <0.10 [facility] Comment on above: Order Comment: Speci men Type: BLOOD SPECIMENOrdering Facility: [facility] Address: [address] [place] [address] Performed By: #### 5 7021-8 ####[facility]ITALNCLIA [id number] [address] LABCLIA [id number] [address] STATES [place] Immature granulocytes/100 WBC (Bld) 0.8 % Normal [facility] Comment on above: Order Comment: Speci men Type: BLOOD SPECIMENOrdering Facility: [facility] Address: [address] [place] [address] Performed By: #### 5 7021-8 ####[facility]ITALNCLIA [id number] [address] LABCLIA [id number] [place] [address] [place] Lymphocytes (Bld) [#/Vol] 1.08 10*3/uL Normal 1.00-4.00 [facility] Comment on above: Order Comment: Speci men Type: BLOOD SPECIMENOrdering Facility: [facility] Address: [address] [place] [address] Performed By: #### 5 7021-8 ####[facility] MILLWNCLIA [id number] [address] LABCLIA [id number] [place] [address] [place] Lymphocytes/100 WBC (Bld) 10.5 % Normal [facility] Comment on above: Order Comment: Speci men Type: BLOOD SPECIMENOrdering Facility: [facility] Address: [address] [place] [address] Performed By: #### 5 7021-8 ####[facility]ENWMILIA [id number] [address] LABCLIA [id number] [place] [address] [place] MCH (RBC) [Entitic mass] 29.6 pg Normal 26.0-34.0 [facility] Comment on above: Order Comment: Speci men Type: BLOOD SPECIMENOrdering Facility: [facility] Address: [address] [place] [address] Performed By: #### 5 7021-8 ####[facility] MILLWNCLIA [id number] [address] LABCLIA [id number] [place] [address] [place] MCHC (RBC) [Mass/Vol] 32.6 g/dL Normal 30.5-36.0 [facility] Comment on above: Order Comment: Speci men Type: BLOOD SPECIMENOrdering Facility: [facility] Address: [address] [place] [address] Performed By: #### 5 7021-8 ####[facility]ENWNCLIA [id number] [address] LABCLIA [id number] [place] [address] [place] MCV (RBC) [Entitic vol] 90.9 fL Normal 80.0-100.0 [facility] Comment on above: Order Comment: Speci men Type: BLOOD SPECIMENOrdering Facility: [facility] Address: [address] [place] [address] Performed By: #### 5 7021-8 ####[facility]ITALNCLIA [id number] [address] LABCLIA [id number] [place] [address] [place] Monocytes (Bld) [#/Vol] 0.70 10*3/uL Normal <0.87 [facility] Comment on above: Order Comment: Speci men Type: BLOOD SPECIMENOrdering Facility: [facility] Address: [address] [place] [address] Performed By: #### 5 7021-8 ####[facility]ENWNCLIA [id number] [address] LABCLIA [id number] [place] [address] [place] Monocytes/100 WBC (Bld) 6.8 % Normal [facility] Comment on above: Order Comment: Speci men Type: BLOOD SPECIMENOrdering Facility: [facility] Address: [address] [place] [address] Performed By: #### 5 7021-8 ####[facility]ITALNCLIA [id number] [place] [address] [facility] LABCLIA [id number] [address] [address] [place] Neutrophils (Bld) [#/Vol] 7.97 10*3/uL High 1.45-7.50 [facility] Comment on above: Order Comment: Speci men Type: BLOOD SPECIMENOrdering Facility: [facility] Address: [address] [place] [address] Performed By: #### 5 7021-8 ####[facility]ENWNCLIA [id number] [address] LABCLIA [id number] [address] [address] [place] Neutrophils/100 WBC (Bld) 77.9 % Normal [facility] Comment on above: Order Comment: Speci men Type: BLOOD SPECIMENOrdering Facility: [facility] Address: [address] [place] [address] Performed By: #### 5 7021-8 ####[facility]ENWNCLIA [id number] [address] LABCLIA [id number] [address] [address] [place] Nucleated RBC (Bld) [#/Vol] 10*3/uL Normal <0.01 [facility] Comment on above: Order Comment: Speci men Type: BLOOD SPECIMENOrdering Facility: [facility] Address: [address] [place], [place] [address] Performed By: #### 5 7021-8 ####[facility] MILLTOWNCLIA [id number] [address] LABCLIA [id number] [place] [id number] [place] Nucleated RBC/100 WBC (Bld) [Ratio] 0.0 /100 WBC Normal [facility] Comment on above: Order Comment: Speci men Type: BLOOD SPECIMENOrdering Facility: [facility] Address: [address] [place] [address] Performed By: #### 5 7021-8 ####[facility]ENWNCLIA [id number] [address] LABCLIA [id number] [place] [address] [place] Platelet mean volume (Bld) [Entitic vol] 11.3 fL Normal 9.0-12.7 [facility] Comment on above: Order Comment: Speci men Type: BLOOD SPECIMENOrdering Facility: [facility] Address: [address] [place] [address] Performed By: #### 5 7021-8 ####[facility]ENTERLIA [id number] [address] LABCLIA [id number] [place] [address] [place] Platelets (Bld) [#/Vol] 158 10*3/uL Normal 150-400 [facility] Comment on above: Order Comment: Speci men Type: BLOOD SPECIMENOrdering Facility: [facility] Address: [address] [place] [address] Result Comment: No c lot detected. Performed By: #### 5 7021-8 ####[facility]ENWNCLIA [id number] [address] LABCLIA [id number] [place] [address] [place] RBC (Bld) [#/Vol] 3.28 10*6/uL Low 4.20-6.00 [facility] Comment on above: Order Comment: Speci men Type: BLOOD SPECIMENOrdering Facility: [facility] Address: [address] [place] [address] Performed By: #### 5 7021-8 ####[facility] ANT HUGHESSherryNCLIA [id number] [address] LABCLIA [id number] [place] [address] [place] WBC (Bld) [#/Vol] 10.24 10*3/uL Normal 3.70-11.00 [facility] Comment on above: Order Comment: Speci men Type: BLOOD SPECIMENOrdering Facility: [facility] Address: [address] [place] [address] Performed By: #### 5 7021-8 ####[facility]ITALNCLIA [id number] [address] LABCLIA [id number] [address] OF [place] CNPNon 04-12-2024 CNPN Normal [facility] BRIANN Telephone (ALEKS) AXEL SERRANO ([id number]) 1940 M Date Time Provider Department 04/12/24 ARSH OTTO JR During your visit today, we recorded the following information about you: Lulu Calabrese LPN 04/12/2024 9:23 AM Signed error Allergies As of Date: 04/12/2024 Noted Allergy Reaction MAI INHIBITORS 12/16/2017 14 - Other: See Comments Comments: Hyperkalemia ATORVASTATIN 05/05/2017 17 - Myalgia PRAVASTATIN 03/24/2017 17 - Myalgia KAEJRUK-PQJ-PQG REDUCTASE INHIBIT*02/16/2019 17 - Myalgia Date Reviewed: [...] 06/02/2023 Diagnosed: 06/02/2023 Coronary artery disease involving suqu[place] cavazos*10/02/2020 Diagnosed: 06/02/2023 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*09/15/2011 03/27/2024 Diagnosed: 06/02/2023 Dyspnea on exertion [R06.09] 06/02/2023 06/02/2023 Diagnosed: 06/02/2023 Fall [W19.XXXA] 06/02/2023 06/02/2023 Diagnosed: 06/02/2023 Fatigue [R53.83] 06/02/2023 06/02/2023 Diagnosed: 06/02/2023 Hypersomnia [G47.10] 06/02/2023 Diagnosed: 06/02/2023 LV dysfunction [I51.9] 10/02/2020 Diagnosed: 06/02/2023 Multiple premature ventricular complexes [I49.3]06/02/2023 Diagnosed: 06/02/2023 Tubular adenoma of colon [D12.6] 06/02/2023 Diagnosed: 06/02/2023 BMI 40.0-44.9, adult ([facility]) [Z68.41] 06/02/2023 History of iron deficiency anemia [Z86.2] 09/17/2023 Parkinson's disease (HCC) [G20.A1] 09/17/2023 Treatment-emergent central sleep apnea [G47.39] 11/08/2023 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 chronic kidney disease ([facility])*12/02/2023 Iron malabsorption [K90.9] 12/02/2023 Encounter Status:Closed by LULU CALABRESE on 04/12/24 [facility] MR Lumbar spine WO contrasto n 04-12-2024 IMPRESSION: Degenerative changes most pronounced at L4-5 and L5-S1. Anatomic Lumbar Variant: None. L4-5 is considered the level of the iliac crest and assume there are 5 lumbar-type vertebrae. Podiatric Assistant: PSCB Transcribe Date/Time: Apr 12 2024 1:54P Dictated by : CRISTIANE BAI MD This examination was interpreted and the report reviewed and electronically signed by: CRISTIANE BAI MD on Apr 12 2024 2:00PM [facility] DIVISION OF RADIOLOGY * * *Final Report* * * DATE OF EXAM: Apr 12 2024 1:00PM [facility] 0303 - MRI LUMBAR SPINE WO IVCON [...] the sacroiliac joints. DIVISION OF RADIOLOGY Provider, [facility] - 04/12/2024 * * *Final Report* * * DATE OF EXAM: Apr 12 2024 1:00PM [facility] 0303 - MRI LUMBAR SPINE WO IVCON [...] and assume there are 5 lumbar-type vertebrae. Podiatric Assistant: PSCB Transcribe Date/Time: Apr 12 2024 1:54P Dictated by : CRISTIANE BAI MD This examination was interpreted and the report reviewed and electronically signed by: CRISTIANE BAI MD on Apr 12 2024 2:00PM [facility] MR Lumbar spine WO contrastO rdered By: Ccf Provider on 04-12-2024 [facility] MR Shoulder - left WO marlyn brandon 04-12-2024 IMPRESSION: Motion degraded exam. Comminuted nondisplaced fracture of the proximal humerus which is likely subacute healing. Severe tendinosis of the rotator cuff without tear. Podiatric Assistant: DAVID Transcribe Date/Time: Apr 12 2024 3:58P Dictated by : MAINE BRAVO MD This examination was interpreted and the report reviewed and electronically signed by: MAINE BRAVO MD on Apr 12 2024 4:06PM [facility] DIVISION OF RADIOLOGY * * *Final Report* * * DATE OF EXAM: Apr 12 2024 1:00PM [facility] 0239 - MRI SHOULDER WO IVCON LT [...] No additional findings. DIVISION OF RADIOLOGY Provider, [facility] - 04/12/2024 * * *Final Report* [...] tendinosis of the rotator cuff without tear. Podiatric Assistant: PSCB Transcribe Date/Time: Apr 12 2024 3:58P Dictated by : MAINE BRAVO MD This examination was interpreted and the report reviewed and electronically signed by: MAINE BRAVO MD on Apr 12 2024 4:06PM EST [facility] MR Shoulder - left WO contra stOrdered By: Ccf Provider on 04-12-2024 [facility] MRI LUMBAR SPINE WO IVCONon 04-12-2024 MRI LUMBAR SPINE WO IVCON Normal [facility] MRI SHOULDER WO IVCON LTon 1 06-13-2023 MRI SHOULDER WO IVCON LT Normal [facility] No Panel Informationon 04-12 Radiology Study observation (narrative) [facility] CBC W Auto Differential pane l (Bld)on 04-03-2024 Basophils (Bld) [#/Vol] 0.04 10*3/uL Normal <0.11 [facility] Comment on above: Order Comment: Speci men Type: BLOOD SPECIMENOrdering Facility: [facility] Address: [address] [place] [address] Performed By: #### 5 7021-8 ####[facility] [id number] [place] [address] [place] Basophils/100 WBC (Bld) 0.4 % Normal [facility] Comment on above: Order Comment: Speci men Type: BLOOD SPECIMENOrdering Facility: [facility] Address: [address] [place] [address] Performed By: #### 5 7021-8 ####[facility] [id number] [place] [address] [place] Differential cell count method Nom (Bld) Auto Normal [facility] Comment on above: Order Comment: Speci men Type: BLOOD SPECIMENOrdering Facility: [facility] Address: [address] [place] [address] Performed By: #### 5 7021-8 ####[facility] [id number] [place] [address] [place] Eosinophils (Bld) [#/Vol] 0.36 10*3/uL Normal <0.46 [facility] Comment on above: Order Comment: Speci men Type: BLOOD SPECIMENOrdering Facility: [facility] Address: [address] [place] [address] Performed By: #### 5 7021-8 ####[facility] [id number] [place] [address] [place] Eosinophils/100 WBC (Bld) 3.8 % Normal [facility] Comment on above: Order Comment: Speci men Type: BLOOD SPECIMENOrdering Facility: [facility] [facility] Address: [address] [place] [address] Performed By: #### 5 7021-8 ####[facility] [id number] [place] [address] [place] Erythrocyte distribution width (RBC) [Ratio] 14.8 % Normal 11.5-15.0 [facility] Comment on above: Order Comment: Speci men Type: BLOOD SPECIMENOrdering Facility: [facility] Address: [address] [place] [address] Performed By: #### 5 7021-8 ####[facility] [id number] [place] [address] [place] Hematocrit (Bld) [Volume fraction] 30.2 % Low 39.0-51.0 [facility] Comment on above: Order Comment: Speci men Type: BLOOD SPECIMENOrdering Facility: [facility] Address: [address] [place] [address] Performed By: #### 5 7021-8 ####[facility] MILLWNCLIA [id number] [place] [address] [place] Hemoglobin (Bld) [Mass/Vol] 10.0 g/dL Low 13.0-17.0 [facility] Comment on above: Order Comment: Speci men Type: BLOOD SPECIMENOrdering Facility: [facility] Address: [address] [place] [address] Performed By: #### 5 7021-8 ####[facility]ITALNCLIA [id number] [place] [address] [place] Immature granulocytes (Bld) [#/Vol] 0.06 10*3/uL Normal <0.10 [facility] Comment on above: Order Comment: Speci men Type: BLOOD SPECIMENOrdering Facility: [facility] Address: [address] [place] [address] Performed By: #### 5 7021-8 ####[facility] CENTERLIA [id number] [place] [address] [place] Immature granulocytes/100 WBC (Bld) 0.6 % Normal [facility] Comment on above: Order Comment: Speci men Type: BLOOD SPECIMENOrdering Facility: [facility] Address: [address] [place] [address] Performed By: #### 5 7021-8 ####[facility] CENTERLIA [id number] [place] [address] [place] Lymphocytes (Bld) [#/Vol] 1.01 10*3/uL Normal 1.00-4.00 [facility] Comment on above: Order Comment: Speci men Type: BLOOD SPECIMENOrdering Facility: [facility] Address: [address] [place] [address] Performed By: #### 5 7021-8 ####[facility] CENTERLIA [id number] [place] [address] [place] Lymphocytes/100 WBC (Bld) 10.7 % Normal [facility] Comment on above: Order Comment: Speci men Type: BLOOD SPECIMENOrdering Facility: [facility] Address: [address] [place] [address] Performed By: #### 5 7021-8 ####[facility] [id number] [place] [address] [place] MCH (RBC) [Entitic mass] 29.6 pg Normal 26.0-34.0 [facility] Comment on above: Order Comment: Speci men Type: BLOOD SPECIMENOrdering Facility: [facility] Address: [address] [place] [address] Performed By: #### 5 7021-8 ####[facility] [id number] [place] [address] [place] MCHC (RBC) [Mass/Vol] 33.1 g/dL Normal 30.5-36.0 [facility] Comment on above: Order Comment: Speci men Type: BLOOD SPECIMENOrdering Facility: [facility] Address: [address] [place] [address] Performed By: #### 5 7021-8 ####[facility] [id number] [place] [address] [place] MCV (RBC) [Entitic vol] 89.3 fL Normal 80.0-100.0 [facility] Comment on above: Order Comment: Speci men Type: BLOOD SPECIMENOrdering Facility: [facility] Address: [address] [place] [address] Performed By: #### 5 7021-8 ####[facility]OSPITALNCLI [id number] [place] [address] [place] Monocytes (Bld) [#/Vol] 0.58 10*3/uL Normal <0.87 [facility] Comment on above: Order Comment: Speci men Type: BLOOD SPECIMENOrdering Facility: [facility] Address: [address] [place] [address] Performed By: #### 5 7021-8 ####[facility] [id number] [place] [address] [place] Monocytes/100 WBC (Bld) 6.1 % Normal [facility] Comment on above: Order Comment: Speci men Type: BLOOD SPECIMENOrdering Facility: [facility] Address: [address] [place] [address] Performed By: #### 5 7021-8 ####[facility] [id number] [place] [address] [place] Neutrophils (Bld) [#/Vol] 7.41 10*3/uL Normal 1.45-7.50 [facility] Comment on above: Order Comment: Speci men Type: BLOOD SPECIMENOrdering Facility: [facility] Address: [address] [place] [address] Performed By: #### 5 7021-8 ####[facility] [id number] [place] [address] [place] Neutrophils/100 WBC (Bld) 78.4 % Normal [facility] Comment on above: Order Comment: Speci men Type: BLOOD SPECIMENOrdering Facility: [facility] Address: [address] [place] [address] Performed By: #### 5 7021-8 ####[facility] [id number] [place] [address] [place] Nucleated RBC (Bld) [#/Vol] 10*3/uL Normal <0.01 [facility] Comment on above: Order Comment: Speci men Type: BLOOD SPECIMENOrdering Facility: [facility] Address: [address] [place] [address] Performed By: #### 5 7021-8 ####[facility] JANEELIA [id number] [place] [address] [place] Nucleated RBC/100 WBC (Bld) [Ratio] 0.0 /100 WBC Normal [facility] Comment on above: Order Comment: Speci men Type: BLOOD SPECIMENOrdering Facility: [facility] Address: [address] [place] [address] Performed By: #### 5 7021-8 ####[facility] ELLENBREMENNCLIA [id number] [place] [address] [place] Platelet mean volume (Bld) [Entitic vol] 10.4 fL Normal 9.0-12.7 [facility] Comment on above: Order Comment: Speci men Type: BLOOD SPECIMENOrdering Facility: [facility] Address: [address] [place] [address] Performed By: #### 5 7021-8 ####[facility]PITALNCLIA [id number] [place] [address] [place] Platelets (Bld) [#/Vol] 209 10*3/uL Normal 150-400 [facility] Comment on above: Order Comment: Speci men Type: BLOOD SPECIMENOrdering Facility: [facility] Address: [address] [place] [address] Performed By: #### 5 7021-8 ####[facility] ELLENBREMENNCLIA [id number] [place] [address] [place] RBC (Bld) [#/Vol] 3.38 10*6/uL Low 4.20-6.00 [facility] Comment on above: Order Comment: Speci men Type: BLOOD SPECIMENOrdering Facility: [facility] Address: [address] [place] [address] Performed By: #### 5 7021-8 ####[facility]ENTERZENA [id number] [place] [address] [place] WBC (Bld) [#/Vol] 9.46 10*3/uL Normal 3.70-11.00 [facility] Comment on above: Order Comment: Speci men Type: BLOOD SPECIMENOrdering Facility: [facility] Address: [address] [place] [address] Performed By: #### 5 7021-8 ####[facility] [id number] [place] [address] [place] CNOVon 04-03-2024 CNOV Normal [facility] CNOVSPon 04-03-2024 CNOVSP Normal [facility] CNPNon 03-30-2024 CNPN Normal [facility] ALBUMIN/CREATININE RATIO, UR INEon 03-27-2024 Albumin DL <= 20 mg/L (U) [Mass/Vol] 387.3 mg/L Normal [facility] Comment on above: Order Comment: Speci men Type: URINE SPECIMENOrdering Facility: [facility] Address: [address] [place] [address] Performed By: #### U ACR ####[facility] LABCLIA [id number] [place] [address] [place] Albumin/Creatinine (U) [Mass ratio] 424 mg/g High <30 [facility] Comment on above: Order Comment: Speci men Type: URINE SPECIMENOrdering Facility: [facility] Address: [address] [place] [address] Result Comment: Adul t Male and Female Nephrotic Criteria:<30 mg/g is considered normal to mildly xijrwpiwi32-558 mg/g is considered moderately increased>300 mg/g is considered severely increasedKDIGO. (2013). KDIGO 2012 Clinical Practice Guideline for the Evaluation and Management of Chronic Kidney Disease. Official Journal of the International Society of Nephrology, 3(1), 1-150. Performed By: #### U ACR ####[facility] LABCLIA [id number] [place] [id number] [place] Creatinine (U) [Mass/Vol] 91.4 mg/dL Normal 20.0-300.0 [facility] Comment on above: Order Comment: Speci men Type: URINE SPECIMENOrdering Facility: [facility] Address: [address] [place] [address] Performed By: #### U ACR ####[facility] LABCLIA [id number] [place] [id number] [place] CNOVon 03-27-2024 CNOV Normal [facility] XR SHLDR >/=3V AP/ELROY AP/OTH R LTon 03-27-2024 XR SHLDR >/=3V AP/ELROY AP/OTHR LT Normal [facility] CNPNon 03-21-2024 CNPN Normal [facility] CBC W Auto Differential pane l (Bld)on 03-20-2024 Basophils (Bld) [#/Vol] 0.04 10*3/uL Normal <0.11 [facility] Comment on above: Order Comment: Speci men Type: BLOOD SPECIMENOrdering Facility: [facility] Address: [address] [place] [address] Performed By: #### 5 7021-8 ####[facility] [id number] [place] [address] [place] Basophils/100 WBC (Bld) 0.4 % Normal [facility] Comment on above: Order Comment: Speci men Type: BLOOD SPECIMENOrdering Facility: [facility] Address: [address] [place], [place] [address] Performed By: #### 5 7021-8 ####[facility] [id number] [place] [address] [place] Differential cell count method Nom (Bld) Auto Normal [facility] Comment on above: Order Comment: Speci men Type: BLOOD SPECIMENOrdering Facility: [facility] Address: [address] [place] [address] Performed By: #### 5 7021-8 ####[facility] MILLWNCLIA [id number] [place] [address] [place] Eosinophils (Bld) [#/Vol] 0.34 10*3/uL Normal <0.46 [facility] Comment on above: Order Comment: Speci men Type: BLOOD SPECIMENOrdering Facility: [facility] Address: [address] [place] [address] Performed By: #### 5 7021-8 ####[facility] CHILDRENWKAVITALIA [id number] [place] [address] [place] Eosinophils/100 WBC (Bld) 3.1 % Normal [facility] Comment on above: Order Comment: Speci men Type: BLOOD SPECIMENOrdering Facility: [facility] Address: [address] [place] [address] Performed By: #### 5 7021-8 ####[facility] CENTERLIA [id number] [place] [address] [place] Erythrocyte distribution width (RBC) [Ratio] 14.6 % Normal 11.5-15.0 [facility] Comment on above: Order Comment: Speci men Type: BLOOD SPECIMENOrdering Facility: [facility] Address: [address] [place] [address] Performed By: #### 5 7021-8 ####[facility] MILLWNCLIA [id number] [place] [address] [place] Hematocrit (Bld) [Volume fraction] 31.0 % Low 39.0-51.0 [facility] Comment on above: Order Comment: Speci men Type: BLOOD SPECIMENOrdering Facility: [facility] Address: [address] [place] [address] Performed By: #### 5 7021-8 ####[facility] CENTERLIA [id number] [place] [address] [place] Hemoglobin (Bld) [Mass/Vol] 10.3 g/dL Low 13.0-17.0 [facility] Comment on above: Order Comment: Speci men Type: BLOOD SPECIMENOrdering Facility: [facility] Address: [address] [place] [address] Performed By: #### 5 7021-8 ####[facility] [id number] [place] [address] [place] Immature granulocytes (Bld) [#/Vol] 0.07 10*3/uL Normal <0.10 [facility] Comment on above: Order Comment: Speci men Type: BLOOD SPECIMENOrdering Facility: [facility] Address: [address] [place] [address] Performed By: #### 5 7021-8 ####[facility] [id number] [place] [address] [place] Immature granulocytes/100 WBC (Bld) 0.6 % Normal [facility] Comment on above: Order Comment: Speci men Type: BLOOD SPECIMENOrdering Facility: [facility] Address: [address] [place] [address] Performed By: #### 5 7021-8 ####[facility] [id number] [place] [address] [place] Lymphocytes (Bld) [#/Vol] 0.91 10*3/uL Low 1.00-4.00 [facility] Comment on above: Order Comment: Speci men Type: BLOOD SPECIMENOrdering Facility: [facility] Address: [address] [place] [address] Performed By: #### 5 7021-8 ####[facility] [id number] [place] [address] [place] Lymphocytes/100 WBC (Bld) 8.3 % Normal [facility] Comment on above: Order Comment: Speci men Type: BLOOD SPECIMENOrdering Facility: [facility] Address: [address] [place] [address] Performed By: #### 5 7021-8 ####[facility] HOSPITALNCCOLTON [id number] [place] [address] [place] MCH (RBC) [Entitic mass] 29.0 pg Normal 26.0-34.0 [facility] Comment on above: Order Comment: Speci men Type: BLOOD SPECIMENOrdering Facility: [facility] Address: [address] [place] [address] Performed By: #### 5 7021-8 ####[facility]ITALNCKANE [facility] [id number] [place] [address] [place] MCHC (RBC) [Mass/Vol] 33.2 g/dL Normal 30.5-36.0 [facility] Comment on above: Order Comment: Speci men Type: BLOOD SPECIMENOrdering Facility: [facility] Address: [address] [place] [address] Performed By: #### 5 7021-8 ####[facility]OSPITALNCLIA [id number] [address] [place] MCV (RBC) [Entitic vol] 87.3 fL Normal 80.0-100.0 [facility] Comment on above: Order Comment: Speci men Type: BLOOD SPECIMENOrdering Facility: [facility] Address: [address] [place] [address] Performed By: #### 5 7021-8 ####[facility] HOSPITALNCA [id number] [address] [place] Monocytes (Bld) [#/Vol] 0.86 10*3/uL Normal <0.87 [facility] Comment on above: Order Comment: Speci men Type: BLOOD SPECIMENOrdering Facility: [facility] Address: [address] [place] [address] Performed By: #### 5 7021-8 ####[facility] CENTERLIA [id number] [place] [address] [place] Monocytes/100 WBC (Bld) 7.9 % Normal [facility] Comment on above: Order Comment: Speci men Type: BLOOD SPECIMENOrdering Facility: [facility] Address: [address] [place] [address] Performed By: #### 5 7021-8 ####[facility] CENTERLIA [id number] [place] [address] [place] Neutrophils (Bld) [#/Vol] 8.68 10*3/uL High 1.45-7.50 [facility] Comment on above: Order Comment: Speci men Type: BLOOD SPECIMENOrdering Facility: [facility] Address: [address] [place] [address] Performed By: #### 5 7021-8 ####[facility] SPRINGSA [id number] [place] [address] [place] Neutrophils/100 WBC (Bld) 79.7 % Normal [facility] Comment on above: Order Comment: Speci men Type: BLOOD SPECIMENOrdering Facility: [facility] Address: [address] [place] [address] Performed By: #### 5 7021-8 ####[facility] CENTERLIA [id number] [place] [address] [place] Nucleated RBC (Bld) [#/Vol] 10*3/uL Normal <0.01 [facility] Comment on above: Order Comment: Speci men Type: BLOOD SPECIMENOrdering Facility: [facility] Address: [address] [place] [address] Performed By: #### 5 7021-8 ####[facility] CENTERLIA [id number] [place] [address] [place] Nucleated RBC/100 WBC (Bld) [Ratio] 0.0 /100 WBC Normal [facility] Comment on above: Order Comment: Speci men Type: BLOOD SPECIMENOrdering Facility: [facility] Address: [address] [place] [address] Performed By: #### 5 7021-8 ####[facility] CENTERTAINA [id number] [place] [address] [place] Platelet mean volume (Bld) [Entitic vol] 9.7 fL Normal 9.0-12.7 [facility] Comment on above: Order Comment: Speci men Type: BLOOD SPECIMENOrdering Facility: [facility] Address: [address] [place] [address] Performed By: #### 5 7021-8 ####[facility] CENTERTAINA [id number] [place] [address] [place] Platelets (Bld) [#/Vol] 181 10*3/uL Normal 150-400 [facility] Comment on above: Order Comment: Speci men Type: BLOOD SPECIMENOrdering Facility: [facility] Address: [address] [place] [address] Performed By: #### 5 7021-8 ####[facility] ELLENBREMENKAVITATAINA [id number] [place] [address] [place] RBC (Bld) [#/Vol] 3.55 10*6/uL Low 4.20-6.00 [facility] Comment on above: Order Comment: Speci men Type: BLOOD SPECIMENOrdering Facility: [facility] Address: [address] [place] [address] Performed By: #### 5 7021-8 ####[facility]OSPITALNCLIA [id number] [place] [address] [place] WBC (Bld) [#/Vol] 10.90 10*3/uL Normal 3.70-11.00 [facility] Comment on above: Order Comment: Speci men Type: BLOOD SPECIMENOrdering Facility: [facility] Address: [address] [place] [address] Performed By: #### 5 7021-8 ####[facility]PITALNCK[facility] [id number] [place] [address] [place] Folate [facility]20 24 Folate [Mass/Vol] ng/mL Normal >4.7 [facility] Comment on above: Order Comment: Speci men Type: BLOOD SPECIMENOrdering Facility: [facility] Address: [address] [place] [address] Result Comment: A re sult of > 20 ng/mL is not necessarily indicative of a pathologic or treatable condition: it reflects a limitation of the test methodology.Assay reference range: 4.8 to 24.2 ng/mL. Suitable for detection of folate deficiency.Reference:Folate III (Folate III) [package insert V 1.0 Syrian]. [facility], [place], [place]: March 2015. Performed By: #### 5 0190-8, 2132-9, 2284-8 ####[facility] LABIA [id number] [place] [address] [place]#### 47290-1 ####[facility] LABIA [id number] [place] [address] [place] [facility] [id number] [place] [address] [place] HbA1c (Bld)on 03-20-2024 Average glucose Estimated from glycated hemoglobin (Bld) [Mass/Vol] 148 mg/dL Normal [facility] Comment on above: Order Comment: Speci men Type: BLOOD SPECIMENOrdering Facility: [facility] Address: [address] [place] [address] Result Comment: eAG: (Estimated average glucose) is a calculated value from HgbA1c and is airport representative of the average blood glucose level in the last 2-3 month period. Performed By: #### 5 5454-3 ####[facility] LABIA [id number] [place] [address] [place] HbA1c (Bld) [Mass fraction] 6.8 % High 4.3-5.6 [facility] Comment on above: Order Comment: Speci men Type: BLOOD SPECIMENOrdering Facility: [facility] Address: [address] [place] [address] Result Comment: [place] Diabetes Association guidelines indicate that patients with HgbA1c in the range 5.7-6.4% are at increased risk for development of diabetes, and intervention by lifestyle modification may be beneficial. HgbA1c greater or equal to 6.5% is considered diagnostic of diabetes. Performed By: #### 5 5454-3 ####[facility] LABIA [id number] [place] [address] [place] Hepatic function 2000 panelo n 03-20-2024 Albumin [Mass/Vol] 3.5 g/dL Low 3.9-4.9 [facility] Comment on above: Order Comment: Patricia quiroz Type: BLOOD SPECIMENOrdering Facility: [facility] Address: [address] [place] [address] Performed By: #### 2 4325-3 ####[facility] HOSPITALZENA [id number] [place] [address] [place] ALP [Catalytic activity/Vol] 48 U/L Normal 38-113 [facility] Comment on above: Order Comment: Agustinai men Type: BLOOD SPECIMENOrdering Facility: [facility] Address: [address] [place] [address] Performed By: #### 2 4325-3 ####[facility]OSPITALNCLIA [id number] [place] [address] [place] ALT [Catalytic activity/Vol] U/L Low 10-54 [facility] Comment on above: Order Comment: Speci men Type: BLOOD SPECIMENOrdering Facility: [facility] Address: [address] [place] [address] Performed By: #### 2 4325-3 ####[facility] ELLENSherryNCLIA [id number] [place] [address] [place] AST [Catalytic activity/Vol] 8 U/L Low 14-40 [facility] Comment on above: Order Comment: Speci men Type: BLOOD SPECIMENOrdering Facility: [facility] Address: [address] [place] [address] Performed By: #### 2 4325-3 ####[facility]ITALNCK[facility] [id number] [place] [address] [place] Bilirubin [Mass/Vol] 0.6 mg/dL Normal 0.2-1.3 [facility] Comment on above: Order Comment: Speci men Type: BLOOD SPECIMENOrdering Facility: [facility] Address: [address] [place] [address] Performed By: #### 2 4325-3 ####[facility]OSPITALNCLIA [id number] [place] [address] [place] Bilirubin.conjugated [Mass/Vol] 0.2 mg/dL High <0.2 [facility] Comment on above: Order Comment: Speci men Type: BLOOD SPECIMENOrdering Facility: [facility] Address: [address] [place] [address] Performed By: #### 2 4325-3 ####[facility]OSPITALNCLIA [id number] [place] [address] [place] Protein [Mass/Vol] 6.5 g/dL Normal 6.3-8.0 [facility] Comment on above: Order Comment: Speci men Type: BLOOD SPECIMENOrdering Facility: [facility] Address: [address] [place] [address] Performed By: #### 2 4325-3 ####[facility] MILLWNCLIA [id number] [place] [address] [place] Iron and Iron binding capaci ty panelon 03-20-2024 Iron [Mass/Vol] 37 ug/dL Low 41-186 [facility] Comment on above: Order Comment: Speci men Type: BLOOD SPECIMENOrdering Facility: [facility] Address: [address] [place] [address] Performed By: #### 5 0190-8, 2132-01, 2283-12 ####[facility] LABCLIA [id number] [place] [address] [place]#### 56178-9 ####[facility] LABCLIA [id number] [address] [id number] [address] [place] Iron binding capacity [Mass/Vol] 200 ug/dL Low 232-386 [facility] Comment on above: Order Comment: Speci men Type: BLOOD SPECIMENOrdering Facility: [facility] Address: [address] [place] [address] Performed By: #### 5 0190-8, 2132-01, 2283-12 ####[facility] LABCLIA [id number] [place] [address] [place]#### 66829-6 ####[facility] LABCLIA [id number] [address] STATES OF [facility] [id number] [place] [address] [place] Iron/TIBC [Molar ratio] 18.5 % Normal 15.0-57.0 [facility] Comment on above: Order Comment: Speci men Type: BLOOD SPECIMENOrdering Facility: [facility] Address: [address] [place] [address] Performed By: #### 5 0-8, 2132-01, 2283-12 ####[facility] LABCLIA [id number] [place] [address] [place]#### 13244-3 ####[facility] LABCLIA [id number] [address] OF [facility] [id number] [place] [address] [place] Lipid 1996 panelon 4 Cholesterol [Mass/Vol] 119 mg/dL Normal <200 [facility] Comment on above: Order Comment: Speci men Type: BLOOD SPECIMENOrdering Facility: [facility] Address: [address] [place] [address] Result Comment: <200 mg/dL, Desirable 200-239 mg/dL, Borderline high>239 mg/dL, High Performed By: #### 5 0-8, 2132-01, 2283-12 ####[facility] LABCLIA [id number] [address] [place]#### 14530-7 ####[facility] LABCLIA [id number] [place] [address] [place] [facility] [id number] [place] [address] [place] Cholesterol in HDL [Mass/Vol] 36 mg/dL Low >39 [facility] Comment on above: Order Comment: Speci men Type: BLOOD SPECIMENOrdering Facility: [facility] Address: [address] [place] [address] Result Comment: 40-5 9 mg/dL, Acceptable>59 mg/dL, High: Negative risk factor for coronary heart disease<40 mg/dL, Low: Positive risk factor for coronary heart disease Performed By: #### 5 0190-8, 2132-01, 2283-12 ####[facility] LABCLIA [id number] [place] [address] [place]#### 54977-1 ####[facility] LABCLIA [id number] [place] [address] [place] [facility] [id number] [place] [address] [place] Cholesterol in LDL [Mass/Vol] 56 mg/dL Normal <100 [facility] Comment on above: Order Comment: Speci men Type: BLOOD SPECIMENOrdering Facility: [facility] Address: [address] [place] [address] Result Comment: <100 mg/dL, Optimal 100-129 mg/dL, Near optimal/above optimal 130-159 mg/dL, Borderline high 160-189 mg/dL, High>189 mg/dL, Very highSecondary prevention optimal LDL Cholesterol levels are recommended to be < 70 mg/dL Performed By: #### 5 0190-8, 2132-01, 2283-12 ####[facility] LABCLIA [id number] [place] [address] [place]#### 44181-8 ####[facility] LABCLIA [id number] [place] [address] [place] [facility] [id number] [place] [address] [place] Cholesterol in LDL/Cholesterol in HDL [Mass ratio] 1.56 {ratio} Normal <2.54 [facility] Comment on above: Order Comment: Speci men Type: BLOOD SPECIMENOrdering Facility: [facility] Address: [address] [place] [address] Result Comment: Refe rence:1. National Cholesterol Education Program ATP III Guideline At-A-Glance Quick Desk Reference: National Heart, Lung, and Blood [place]. National Institutes of Health. 2001: NIH Publication No. 01-3305.2. An International Atherosclerosis Society position paper: global recommendations for the management of dyslipidemia: executive summary, Atherosclerosis. 2014: 232(2):410-413. Performed By: #### 5 0190-8, 2132-01, 2283-12 ####[facility] LABCLIA [id number] [address] [place]#### 46203-5 ####[facility] LABCLIA [id number] [address] [id number] [place] [address] [place] Cholesterol in VLDL [Mass/Vol] 27 mg/dL Normal <30 [facility] Comment on above: Order Comment: Speci men Type: BLOOD SPECIMENOrdering Facility: [facility] Address: [address] [place] [address] Performed By: #### 5 0190-8, 2132-01, 2283-12 ####[facility] LABCLIA [id number] [address] [place]#### 55633-6 ####[facility] LABCLIA [id number] [address] [id number] [place] [address] [place] Cholesterol non HDL [Mass/Vol] 83 mg/dL Normal <130 [facility] Comment on above: Order Comment: Agustinai men Type: BLOOD SPECIMENOrdering Facility: [facility] Address: [address] [place] [address] Result Comment: <130 mg/dL, Optimal 130-159 mg/dL, Near optimal/above optimal 160-189 mg/dL, Borderline high 190-219 mg/dL, High>219 mg/dL, Very highSecondary prevention optimal non HDL Cholesterol levels are recommended to be <100 mg/dL Performed By: #### 5 0-8, 2132-01, 2283-12 ####[facility] LABCLIA [id number] [address] [address] [place]#### 07767-2 ####[facility] LABCLIA [id number] [address] [address] [facility] [id number] [place] [address] [place] Cholesterol.total/Cinthya sterol in HDL [Mass ratio] 3.31 {ratio} Normal <5.10 [facility] Comment on above: Order Comment: Speci men Type: BLOOD SPECIMENOrdering Facility: [facility] Address: [address] [place] [id number] Performed By: #### 5 8, 2132-01, 2283-12 ####[facility] LABCLIA [id number] [address] [address] [place]#### 14957-9 ####[facility] LABCLIA [id number] [address] [address] [facility] [id number] [place] [address] [place] FASTING TIME 12 hrs Normal [facility] Comment on above: Order Comment: Speci men Type: BLOOD SPECIMENOrdering Facility: [facility] Address: [address] [place] [address] Performed By: #### 5 0-8, 2132-01, 2283-12 ####[facility] LABCLIA [id number] [address] [address] [place]#### 85806-4 ####[facility] LABCLIA [id number] [address] [id number] [place] [address] [place] Triglyceride [Mass/Vol] 133 mg/dL Normal <150 [facility] Comment on above: Order Comment: Speci men Type: BLOOD SPECIMENOrdering Facility: [facility] Address: [address] [place] [address] Result Comment: <150 mg/dL, Normal 150-199 mg/dL, Borderline high 200-499 mg/dL, High>499 mg/dL, Very high Performed By: #### 5 0190-8, 2132-01, 2283-12 ####[facility] LABCLIA [id number] [place] [address] [place]#### 34582-1 ####[facility] LABCLIA [id number] [address] [id number] [place] [address] [place] Vit B12 [facility] 11-11-2 024 Cobalamin (Vitamin B12) [Mass/Vol] 1060 pg/mL Normal 232-1245 [facility] Comment on above: Order Comment: Speci men Type: BLOOD SPECIMENOrdering Facility: [facility] Address: [address] [place] [address] Performed By: #### 5 0190-8, 2132-01, 2283-12 ####[facility] LABCLIA [id number] [place] [address] [place]#### 87659-7 ####[facility] LABCLIA [id number] [place] [address] [place] [facility] [id number] [place] [address] [place] CBC W Auto Differential pane l (Bld)on 03-06-2024 Basophils (Bld) [#/Vol] 0.05 10*3/uL Normal <0.11 [facility] Comment on above: Order Comment: Speci men Type: BLOOD SPECIMENOrdering Facility: [facility] Address: [address] [place] [address] Performed By: #### 5 7021-8 ####[facility]DRENWMILIA [id number] [place] [address] [place] Basophils/100 WBC (Bld) 0.6 % Normal [facility] Comment on above: Order Comment: Speci men Type: BLOOD SPECIMENOrdering Facility: [facility] Address: [address] [place] [address] Performed By: #### 5 7021-8 ####[facility]INGSA [id number] [address] STATES OF [facility] Differential cell count method Nom (Bld) Auto Normal [facility] Comment on above: Order Comment: Speci men Type: BLOOD SPECIMENOrdering Facility: [facility] Address: [address] [place] [address] Performed By: #### 5 7021-8 ####[facility] [id number] [place] [address] [place] Eosinophils (Bld) [#/Vol] 0.40 10*3/uL Normal <0.46 [facility] Comment on above: Order Comment: Speci men Type: BLOOD SPECIMENOrdering Facility: [facility] Address: [address] [place] [address] Performed By: #### 5 7021-8 ####[facility] CENTERLIA [id number] [place] [address] [place] Eosinophils/100 WBC (Bld) 4.8 % Normal [facility] Comment on above: Order Comment: Speci men Type: BLOOD SPECIMENOrdering Facility: [facility] Address: [address] [place] [address] Performed By: #### 5 7021-8 ####[facility] ELLENREYNA [id number] [place] [address] [place] Erythrocyte distribution width (RBC) [Ratio] 15.0 % Normal 11.5-15.0 [facility] Comment on above: Order Comment: Speci men Type: BLOOD SPECIMENOrdering Facility: [facility] Address: [address] [place] [address] Performed By: #### 5 7021-8 ####[facility] HOSPITALNCTAINA [id number] [place] [address] [place] Hematocrit (Bld) [Volume fraction] 33.3 % Low 39.0-51.0 [facility] Comment on above: Order Comment: Speci men Type: BLOOD SPECIMENOrdering Facility: [facility] Address: [address] [place] [address] Performed By: #### 5 7021-8 ####[facility]ITALNCLIA [id number] [place] [address] [place] Hemoglobin (Bld) [Mass/Vol] 10.8 g/dL Low 13.0-17.0 [facility] Comment on above: Order Comment: Speci men Type: BLOOD SPECIMENOrdering Facility: [facility] Address: [address] [place] [address] Performed By: #### 5 7021-8 ####[facility]ITALNCLIA [id number] [place] [address] [place] Immature granulocytes (Bld) [#/Vol] 0.06 10*3/uL Normal <0.10 [facility] Comment on above: Order Comment: Speci men Type: BLOOD SPECIMENOrdering Facility: [facility] Address: [address] [place] [address] Performed By: #### 5 7021-8 ####[facility]ILDRENWNCLIA [id number] [place] [address] [place] Immature granulocytes/100 WBC (Bld) 0.7 % Normal [facility] Comment on above: Order Comment: Speci men Type: BLOOD SPECIMENOrdering Facility: [facility] Address: [address] [place] [address] Performed By: #### 5 7021-8 ####[facility] CENTERLIA [id number] [place] [address] [place] Lymphocytes (Bld) [#/Vol] 1.26 10*3/uL Normal 1.00-4.00 [facility] Comment on above: Order Comment: Speci men Type: BLOOD SPECIMENOrdering Facility: [facility] Address: [address] [place] [address] Performed By: #### 5 7021-8 ####[facility] [id number] [place] [address] [place] Lymphocytes/100 WBC (Bld) 15.2 % Normal [facility] Comment on above: Order Comment: Speci men Type: BLOOD SPECIMENOrdering Facility: [facility] Address: [address] [place] [address] Performed By: #### 5 7021-8 ####[facility] [id number] [place] [address] [place] MCH (RBC) [Entitic mass] 29.3 pg Normal 26.0-34.0 [facility] Comment on above: Order Comment: Speci men Type: BLOOD SPECIMENOrdering Facility: [facility] Address: [address] [place] [address] Performed By: #### 5 7021-8 ####[facility]OSPITALNCLI [id number] [place] [address] [place] MCHC (RBC) [Mass/Vol] 32.4 g/dL Normal 30.5-36.0 [facility] Comment on above: Order Comment: Speci men Type: BLOOD SPECIMENOrdering Facility: [facility] Address: [address] [place] [address] Performed By: #### 5 7021-8 ####[facility] [id number] [place] [address] [place] MCV (RBC) [Entitic vol] 90.5 fL Normal 80.0-100.0 [facility] Comment on above: Order Comment: Speci men Type: BLOOD SPECIMENOrdering Facility: [facility] Address: [address] [place] [address] Performed By: #### 5 7021-8 ####[facility] [id number] [place] [address] [place] Monocytes (Bld) [#/Vol] 0.67 10*3/uL Normal <0.87 [facility] Comment on above: Order Comment: Speci men Type: BLOOD SPECIMENOrdering Facility: [facility] Address: [address] [place] [address] Performed By: #### 5 7021-8 ####[facility] [id number] [place] [address] [place] Monocytes/100 WBC (Bld) 8.1 % Normal [facility] Comment on above: Order Comment: Speci men Type: BLOOD SPECIMENOrdering Facility: [facility] Address: [address] [place] [address] Performed By: #### 5 7021-8 ####[facility] [id number] [place] [address] [place] Neutrophils (Bld) [#/Vol] 5.86 10*3/uL Normal 1.45-7.50 [facility] Comment on above: Order Comment: Speci men Type: BLOOD SPECIMENOrdering Facility: [facility] Address: [address] [place] [address] Performed By: #### 5 7021-8 ####[facility] ELLENREYNA [id number] [place] [address] [place] Neutrophils/100 WBC (Bld) 70.6 % Normal [facility] Comment on above: Order Comment: Speci men Type: BLOOD SPECIMENOrdering Facility: [facility] Address: [address] [place] [address] Performed By: #### 5 7021-8 ####[facility] HOSPITALJAMAL [id number] [place] [address] [place] Nucleated RBC (Bld) [#/Vol] 10*3/uL Normal <0.01 [facility] Comment on above: Order Comment: Speci men Type: BLOOD SPECIMENOrdering Facility: [facility] Address: [address] [place] [address] Performed By: #### 5 7021-8 ####[facility] SPRINGSMingo [id number] [place] [address] [place] Nucleated RBC/100 WBC (Bld) [Ratio] 0.0 /100 WBC Normal [facility] Comment on above: Order Comment: Speci men Type: BLOOD SPECIMENOrdering Facility: [facility] Address: [address] [place] [address] Performed By: #### 5 7021-8 ####[facility] [id number] [place] [address] [place] Platelet mean volume (Bld) [Entitic vol] 10.0 fL Normal 9.0-12.7 [facility] Comment on above: Order Comment: Speci men Type: BLOOD SPECIMENOrdering Facility: [facility] Address: [address] [place] [address] Performed By: #### 5 7021-8 ####[facility]ITALNCLIA [id number] [place] [address] [place] Platelets (Bld) [#/Vol] 187 10*3/uL Normal 150-400 [facility] Comment on above: Order Comment: Speci men Type: BLOOD SPECIMENOrdering Facility: [facility] Address: [address] [place] [address] Performed By: #### 5 7021-8 ####[facility]ITALNCLIA [id number] [place] [address] [place] RBC (Bld) [#/Vol] 3.68 10*6/uL Low 4.20-6.00 [facility] Comment on above: Order Comment: Speci men Type: BLOOD SPECIMENOrdering Facility: [facility] Address: [address] [place] [address] Performed By: #### 5 7021-8 ####[facility] CENTERLIA [id number] [place] [address] [place] WBC (Bld) [#/Vol] 8.30 10*3/uL Normal 3.70-11.00 [facility] Comment on above: Order Comment: Speci men Type: BLOOD SPECIMENOrdering Facility: [facility] Address: [address] [place] [address] Performed By: #### 5 7021-8 ####[facility] CENTERLIA [id number] [place] [address] [place] CNOVSPon 03-06-2024 CNOVSP Normal [facility] XR Ribs - right Views and Ch est PAon 01-26-2024 IMPRESSION: Fractures of the lateral right eighth and ninth ribs. No pleural effusion or pneumothorax. Podiatric Assistant: DAVID Transcribe Date/Time: Jan 26 2024 1:22P Dictated by : PETRA CARPENTER MD This examination was interpreted and the report reviewed and electronically signed by: PETRA CARPENTER MD on Jan 26 2024 1:24PM EST DIVISION OF RADIOLOGY * * *Final [...] and ninth ribs DIVISION OF RADIOLOGY Provider[facility] 01/26/2024 * * *Final Report* * [...] ninth ribs. No pleural effusion or pneumothorax. Podiatric Assistant: PSCB Transcribe Date/Time: Jan 26 2024 1:22P Dictated by : PETRA CARPENTER MD This examination was interpreted and the report reviewed and electronically signed by: PETRA CARPENTER MD on Jan 26 2024 1:24PM EST [facility] Radiology Study observation (narrative) Nasir Moreno XR Ribs - right Views and Ch est PAOrdered By: Ccf Provider on 01-26-2024 [facility] CBC W Auto Differential pane l (Bld)on 01-17-2024 Basophils (Bld) [#/Vol] 0.03 10*3/uL [facility] Basophils/100 WBC (Bld) 0.4 % [facility] Differential cell count method Nom (Bld) Auto [facility] Eosinophils (Bld) [#/Vol] 0.27 10*3/uL [facility] Eosinophils/100 WBC (Bld) 3.9 % [facility] Erythrocyte distribution width (RBC) [Ratio] 15.2 % High 11.5 - 15.0 % [facility] Hematocrit (Bld) [Volume fraction] 29.6 % Low 39.0 - 51.0 % [facility] Hemoglobin (Bld) [Mass/Vol] 9.9 g/dL Low 13.0 - 17.0 g/dL [facility] Immature granulocytes (Bld) [#/Vol] 0.04 10*3/uL [facility] Immature granulocytes/100 WBC (Bld) 0.6 % [facility] Interpretation and review of laboratory results Abnormal [facility] Lymphocytes (Bld) [#/Vol] 1.02 10*3/uL [facility] Lymphocytes/100 WBC (Bld) 14.6 % [facility] MCH (RBC) [Entitic mass] 28.9 pg 26.0 - 34.0 pg [facility] MCHC (RBC) [Mass/Vol] 33.4 g/dL 30.5 - 36.0 g/dL [facility] MCV (RBC) [Entitic vol] 86.5 fL 80.0 - 100.0 fL [facility] Monocytes (Bld) [#/Vol] 0.59 10*3/uL [facility] Monocytes/100 WBC (Bld) 8.4 % [facility] Neutrophils (Bld) [#/Vol] 5.04 10*3/uL [facility] Neutrophils/100 WBC (Bld) 72.1 % [facility] Nucleated RBC (Bld) [#/Vol] [facility] Nucleated RBC/100 WBC (Bld) [Ratio] 0.0 % /100 WBC [facility] Platelet mean volume (Bld) [Entitic vol] 10.0 fL 9.0 - 12.7 fL [facility] Platelets (Bld) [#/Vol] 172 10*3/uL [facility] RBC (Bld) [#/Vol] 3.42 10*6/uL Low 4.20 - 6.00 m/uL [facility] WBC (Bld) [#/Vol] 6.99 10*3/uL [facility] Comprehensive metabolic 2000 panelOrdered By: Nakia Loza on 01-17-2024 Albumin [Mass/Vol] 3.5 g/dL Low 3.9 - 4.9 g/dL [facility] ALP [Catalytic activity/Vol] 49 U/L 38 - 113 U/L [facility] ALT [Catalytic activity/Vol] U/L Low 10 - 54 U/L [facility] Anion gap [Moles/Vol] 10 mmol/L 8 - 15 mmol/L [facility] AST [Catalytic activity/Vol] 9 U/L Low 14 - 40 U/L [facility] Bilirubin [Mass/Vol] 0.5 mg/dL 0.2 - 1 .3 mg/dL [facility] Calcium [Mass/Vol] 9.4 mg/dL 8.5 - 10. 2 mg/dL [facility] Chloride [Moles/Vol] 105 mmol/L 98 - 10 7 mmol/L [facility] CO2 [Moles/Vol] 23 mmol/L 22 - 30 mmol/L [facility] Creatinine [Mass/Vol] 1.86 mg/dL High 0.73 - 1.22 mg/dL [facility] GFR/1.73 sq M.predicted among non-blacks MDRD (S/P/Bld) [Vol rate/Area] 35 mL/min/{1.73_m2} Low - PINF [facility] Comment on above: Estimated Glomerular Filtration Rate [...] 120 mg/dL High 74 - 99 mg/dL [facility] Comment on above: The [place] Di[employer] Association (ADA) provides guidance for [...] Standards of Medical Care in Diabetes 2016, [place] [employer]. Diabetes Care. 2016.39(Suppl 1). Interpretation and review of laboratory results Abnormal [facility] Potassium [Moles/Vol] 5.0 mmol/L 3.7 - 5.1 mmol/L [facility] Protein [Mass/Vol] 6.3 g/dL 6.3 - 8.0 g/dL [facility] Sodium [Moles/Vol] 138 mmol/L 136 - 144 mmol/L [facility] Urea nitrogen [Mass/Vol] 30 mg/dL High 9 - 24 mg/dL [facility] CBC W Auto Differential pane l (Bld)on 11-29-2023 Basophils (Bld) [#/Vol] 0.05 10*3/uL [facility] Basophils/100 WBC (Bld) 0.6 % [facility] Differential cell count method Nom (Bld) Auto [facility] Eosinophils (Bld) [#/Vol] 0.41 10*3/uL [facility] Eosinophils/100 WBC (Bld) 5.0 % [facility] Erythrocyte distribution width (RBC) [Ratio] 15.0 % 11.5 - 15.0 % [facility] Hematocrit (Bld) [Volume fraction] 27.5 % Low 39.0 - 51.0 % [facility] Hemoglobin (Bld) [Mass/Vol] 9.2 g/dL Low 13.0 - 17.0 g/dL [facility] Immature granulocytes (Bld) [#/Vol] 0.04 10*3/uL [facility] Immature granulocytes/100 WBC (Bld) 0.5 % [facility] Interpretation and review of laboratory results Abnormal [facility] Lymphocytes (Bld) [#/Vol] 1.06 10*3/uL [facility] Lymphocytes/100 WBC (Bld) 13.0 % [facility] MCH (RBC) [Entitic mass] 28.6 pg 26.0 - 34.0 pg [facility] MCHC (RBC) [Mass/Vol] 33.5 g/dL 30.5 - 36.0 g/dL [facility] MCV (RBC) [Entitic vol] 85.4 fL 80.0 - 100.0 fL [facility] Monocytes (Bld) [#/Vol] 0.59 10*3/uL [facility] Monocytes/100 WBC (Bld) 7.2 % [facility] Neutrophils (Bld) [#/Vol] 6.03 10*3/uL [facility] Neutrophils/100 WBC (Bld) 73.7 % [facility] Nucleated RBC (Bld) [#/Vol] NINF [facility] Nucleated RBC/100 WBC (Bld) [Ratio] 0.0 % /100 WBC [facility] Platelet mean volume (Bld) [Entitic vol] 10.3 fL 9.0 - 12.7 fL [facility] Platelets (Bld) [#/Vol] 186 10*3/uL [facility] RBC (Bld) [#/Vol] 3.22 10*6/uL Low 4.20 - 6.00 m/uL [facility] WBC (Bld) [#/Vol] 8.18 10*3/uL [facility] Comprehensive metabolic 2000 panelOrdered By: Nakia Loza on 11-29-2023 Albumin [Mass/Vol] 3.6 g/dL Low 3.9 - 4.9 g/dL [facility] ALP [Catalytic activity/Vol] 50 U/L 38 - 113 U/L [facility] ALT [Catalytic activity/Vol] U/L Low 10 - 54 U/L [facility] Anion gap [Moles/Vol] 8 mmol/L 8 - 15 mmol/L [facility] AST [Catalytic activity/Vol] 7 U/L Low 14 - 40 U/L [facility] Bilirubin [Mass/Vol] 0.3 mg/dL 0.2 - 1 .3 mg/dL [facility] Calcium [Mass/Vol] 8.9 mg/dL 8.5 - 10. 2 mg/dL [facility] Chloride [Moles/Vol] 104 mmol/L 98 - 10 7 mmol/L [facility] CO2 [Moles/Vol] 26 mmol/L 22 - 30 mmol/L [facility] Creatinine [Mass/Vol] 1.68 mg/dL High 0.73 - 1.22 mg/dL [facility] GFR/1.73 sq M.predicted among non-blacks MDRD (S/P/Bld) [Vol rate/Area] 40 mL/min/{1.73_m2} Low - PINF [facility] Comment on above: Estimated Glomerular Filtration Rate [...] 143 mg/dL High 74 - 99 mg/dL [facility] Comment on above: The [place] Di[employer] Association (ADA) provides guidance for [...] Standards of Medical Care in Diabetes 2016, [place] [employer]. Diabetes Care. 2016.39(Suppl 1). Interpretation and review of laboratory results Abnormal [facility] Potassium [Moles/Vol] 4.6 mmol/L 3.7 - 5.1 mmol/L [facility] Protein [Mass/Vol] 6.2 g/dL Low 6.3 - 8.0 g/dL [facility] Sodium [Moles/Vol] 138 mmol/L 136 - 144 mmol/L [facility] Urea nitrogen [Mass/Vol] 30 mg/dL High 9 - 24 mg/dL [facility] LACTATE DEHYDROGENASEon 11-08 LDH [Catalytic activity/Vol] 141 U/L 135 - 225 U/L [facility] LDH [Catalytic activity/Vol] on 11-29-2023 Interpretation and review of laboratory results Normal [facility] Albumin Elph [Mass/Vol]Order ed By: Nakia Laboy on 08-24-2023 Albumin [Mass/Vol] 3.0 g/dL 2.9-4.4 [facility] Basophil percentageOrdered B y: Nakia Laboy on 08-24-2023 Basophil percentage 3.7 mg/dL 2.5-4.9 [facility] Chloride [Moles/Vol] 110 mmol/L 98-107 [facility] Glucose [Mass/Vol] 139 mg/dL 74-106 [facility] Comment on above: Fasting Glucose resu lt greater than or equal to 126 mg/dL suggests DIABETES MELLITUS per A.D.A. criteria. Potassium [Moles/Vol] 4.4 mmol/L 3.5-5.1 [facility] Sodium [Moles/Vol] 139 mmol/L 136-145 [facility] Interpretation of serum or p lasma protein pattern by immunofixation (narrative resultOrdered By: Nakia Laboy on 08-24-2023 Protein Fractions Immunofixation Carlos [Interp] Not Observed g/dL Not Observed [facility] - Chemistry and C hemistry - challengeOrdered By: Nakia Laboy on 08-24-2023 CO2 [Moles/Vol] 25.0 mmol/L 21.0-32.0 [facility] Urea nitrogen/Creatinine [Mass ratio] 13.1 mg/mg 10-20 [facility] No Panel InformationOrdered By: Nakia Laboy on 08-24-2023 Addendum Document Comment . [facility] Comment on above: Protein electrophore sis scan will follow via computer,mail, or hopper filler delivery.Performed at: - [address] [id number] Director: Patrice Brown PhD, Phone: [phone] Immunoglobulin M 97 mg/dL 15-143 [facility] Parathyroid Hormone (Intact) 61.3 pg/mL 18.4-80.1 [facility] Estimated GFR (MDRD) Amer 44 mL/min >60 [facility] Comment on above: GFR Calc Estimated GFR (MDRD) Non-Af Amer 36 mL/min >60 [facility] Comment on above: Non- GFR Calc Serum [id number] measu rement by electrophoresisOrdered By: Nakia Laboy on 08-24-2023 Alpha 1 globulin Elph [Mass/Vol] 0.2 g/dL 0.0-0.4 [facility] Alpha 1 globulin Elph [Mass/Vol] 0.8 g/dL 0.4-1.0 [facility] Serum globulin measurement ( mass/volume)Ordered By: Nakia Laboy on 08-24-2023 Globulin (S) [Mass/Vol] 2.8 g/dL 2.2-3.9 [facility] Serum or plasma IgA measurem ent (mass/volume)Ordered By: Nakia Laboy on 08-24-2023 IgA [Mass/Vol] 430 mg/dL 61-437 [facility] Serum or plasma IgG measurem ent (mass/volume)Ordered By: Nakia Laboy on 08-24-2023 IgG [Mass/Vol] 988 mg/dL 603-1613 [facility] Serum or plasma beta globuli n measurement by electrophoresis (mass/volume)Ordered By: Nakia Laboy on 08-24-2023 Beta globulin Elph [Mass/Vol] 0.9 g/dL 0.7-1.3 [facility] Serum or plasma calcium pedrito urement (mass/volume)Ordered By: Nakia Laboy 08-24-2023 Calcium [Mass/Vol] 8.6 mg/dL 8.5-10.1 [facility] Serum or plasma creatinine m easurement (mass/volume)Ordered By: Nakia Laboy 08-24-2023 Creatinine [Mass/Vol] 1.91 mg/dL 0.70-1.30 [facility] Comment on above: The validity of the calculated GFR & GFRAA in patients over 70 years has not been determined. Clinical correlation is essential. Serum or plasma gamma globul in measurement by electrophoresis (mass/volume)Ordered By: Nakia Laboy on 08-24-2023 Gamma globulin Elph [Mass/Vol] 0.9 g/dL 0.4-1.8 [facility] Serum or plasma immunoelectr ophoresis interpretation (nominal result)Ordered By: Nakia Laboy on 08-24-2023 Interpretation IEP [Interp] Comment: . [facility] Comment on above: Presence of monoclon al protein is unclear at this time. Suggestrepeat in 3 to 6 months if clinically indicated. Serum or plasma urea nitroge n measurement (mass/volume)Ordered By: Nakia Laboy on 08-24-2023 Urea nitrogen [Mass/Vol] 25 mg/dL 7-18 [facility] Thin prep Papanicolaou smear with manual screeningOrdered By: Nakia Laboy on 08-24-2023 Thin prep Papanicolaou smear with manual screening 1.1 0.7-1.7 [facility] Thin prep Papanicolaou smear with manual screening 2.7 g/dL 3.2-5.0 [facility] Total protein bloodOrdered B y: Nakia Laboy on 08-24-2023 Protein [Mass/Vol] 5.8 g/dL 6.0-8.5 [facility] 24 hour urine alpha 2 globul in/total protein ratio by electrophoresis (mass fraction)Ordered By: Nakia Laboy on 07-20-2023 Alpha 2 globulin Elph (24H U) [Mass fraction] 5.4 % . [facility] 24 hour urine beta globulin/ total protein ratio by electrophoresis (mass fraction)Ordered By: Nakia Laboy on 07-20-2023 Beta globulin Elph (24H U) [Mass fraction] 16.1 % . [facility] 24 hour urine gamma globulin /total protein ratio by electrophoresis (mass fraction)Ordered By: Nakia Laboy on 07-20-2023 Gamma globulin Elph (24H U) [Mass fraction] 10.2 % . [facility] No Panel InformationOrdered By: Nakia Laboy on 07-20-2023 Urine Immunofixation PEP Note Comment . [facility] Comment on above: Protein electrophore sis scan will follow via computer,mail, or hopper filler delivery.Performed at: - [facility] [id number] Director: Patrice Brown PhD, Phone: [phone] Urine Microalbumin/Creatinine Ratio 424.0 mg/g CRE <30 [facility] Thin prep Papanicolaou smear with manual screeningOrdered By: Nakia Laboy on 07-20-2023 Thin prep Papanicolaou smear with manual screening 385.0 mg/L NO RANGE EST. [facility] Urine albumin/total protein mass ratio by electrophoresisOrdered By: Nakia Laboy on 07-20-2023 Albumin Elph (U) [Mass fraction] 66.7 % . [facility] Urine alpha 1 globulin/total protein ratio by electrophoresis (mass fraction)Ordered By: Nakia Laboy on 07-20-2023 Alpha 1 globulin Elph (U) [Mass fraction] 1.5 % . [facility] Urine creatinine measurement (mass/volume)Ordered By: Nakia Laboy on 07-20-2023 Creatinine (U) [Mass/Vol] 90.80 mg/dL NO RANGE EST. [facility] Urine monoclonal protein/tot al protein mass ratio by electrophoresisOrdered By: Nakia Laboy on 07-20-2023 Protein.monoclonal Elph (U) [Mass fraction] See comment [facility] Comment on above: NOT OBSERVED Urine protein measurement (m ass/volume)Ordered By: Nakia Laboy on 07-20-2023 Protein (U) [Mass/Vol] 57.9 mg/dL Not Estab. [facility] MRI BRAIN WO IVCONon 023 [facility] XR CHEST 2V FRONTAL/LATon [facility] XR Chest PA and Lateralon IMPRESSION: No acute radiographic abnormality. Podiatric Assistant: PSCB Transcribe Date/Time: Jul 09 2022 1:47P Dictated by : PETRA CARPENTER MD This examination was interpreted and the report reviewed and electronically signed by: PETRA CARPENTER MD on Jul 09 2022 1:49PM [facility] DIVISION OF RADIOLOGY * * *Final Report* [...] soft tissues: Unremarkable. DIVISION OF RADIOLOGY Provider, [facility] - 07/09/2022 * * *Final Report* * [...] Unremarkable. IMPRESSION IMPRESSION: No acute radiographic abnormality. Podiatric Assistant: DAVID Transcribe Date/Time: Jul 09 2022 1:47P Dictated by : PETRA CARPENTER MD This examination was interpreted and the report reviewed and electronically signed by: PETRA CARPENTER MD on Jul 09 2022 1:49PM EST [facility] Radiology Study observation (narrative) Nasir pacheco [facility] XR Chest PA and LateralOrder ed By: Ccf Provider on 07-09-2022 [facility] Basophil percentageon 2021 Chloride [Moles/Vol] 102 mmol/L 98-107 [facility] Work Phone: Glucose [Mass/Vol] 199 mg/dL 74-106 [facility] Work Phone: Comment on above: Fasting Glucose resu lt greater than or equal to 126 mg/dL suggests DIABETES MELLITUS per A.D.A. criteria. Potassium [Moles/Vol] 4.2 mmol/L 3.5-5.1 [facility] Work Phone: Sodium [Moles/Vol] 136 mmol/L 136-145 [facility] Work Phone: Laboratory - Chemistry and C hemistry - challengeon 12-02-2021 CO2 [Moles/Vol] 26.0 mmol/L 21.0-32.0 [facility] Work Phone: Urea nitrogen/Creatinine [Mass ratio] 12.1 mg/mg 10-20 [facility] Work Phone: No Panel Informationon 12-02 Estimated GFR (MDRD) Amer 49 mL/min >60 [facility] Work Phone: Comment on above: GFR Calc Estimated GFR (MDRD) Non-Af Amer 40 mL/min >60 [facility] Work Phone: Comment on above: Non- GFR Calc Serum or plasma calcium pedrito urement (mass/volume)on 12-02-2021 Calcium [Mass/Vol] 9.3 mg/dL 8.5-10.1 [facility] Work Phone: Serum or plasma creatinine m easurement (mass/volume)on 12-02-2021 Creatinine [Mass/Vol] 1.73 mg/dL 0.70-1.30 [facility] Work Phone: Comment on above: The validity of the calculated GFR & GFRAA in patients over 70 years has not been determined. Clinical correlation is essential. Serum or plasma urea nitroge n measurement (mass/volume)on 12-02-2021 Urea nitrogen [Mass/Vol] 21 mg/dL 7-18 [facility] Work Phone: Thin prep Papanicolaou smear with manual screeningon 12-02-2021 Thin prep Papanicolaou smear with manual screening 8 5-15 [facility] Work Phone: UA DIP, URINE (POC)on 2021 BILIRUBIN UA (POCT) Negative Negative [facility] CLARITY UA (POCT) Clear [facility] COLOR UA (POCT) Light yellow [facility] GLUCOSE UA (POCT) Negative Negative mg/dL [facility] HEMOGLOBIN/BLOOD UA (POCT) Negative Negative [facility] KETONE UA (POCT) Negative Negative mg/dL [facility] LEUKOCYTES UA (POCT) Small Abnormal Negative [facility] NITRITE UA (POCT) Negative [facility] ([facility]) 5.5 4.5 - 8.0 [facility] Protein Ql (U) 30 mg/dL Abnormal Negative mg/dL [facility] SPECIFIC GRAVITY UA (POCT) 1.010 1.005 - 1.030 [facility] UROBILINOGEN UA (POCT) 0.2 E.U./dL Gala l E.U./dL [facility] Absolute lymphocyte counton 10-13-2021 Lymphocytes Auto (Unsp spec) [#/Vol] 1.14 10*3/uL 0.83-4.51 [facility] Work Phone: Basophil percentageon 2021 Basophils/100 WBC (Bld) 0.5 % 0-1 [facility] Work Phone: Chloride [Moles/Vol] 104 mmol/L 98-107 [facility] Work Phone: Eosinophils/100 WBC (Bld) 2.1 % 0-5 [facility] Work Phone: Glucose [Mass/Vol] 225 mg/dL 74-106 [facility] Work Phone: Comment on above: Glucose result great er than or equal to 200 mg/dLsuggests DIABETES MELLITUS per A.D.A. criteria. Neutrophils (Bld) [#/Vol] 5.3 10*3/uL 2.0-7.7 [facility] Work Phone: Neutrophils/100 WBC (Bld) 72.6 % 47-70 [facility] Work Phone: Potassium [Moles/Vol] 4.4 mmol/L 3.5-5.1 [facility] Work Phone: Sodium [Moles/Vol] 137 mmol/L 136-145 [facility] Work Phone: WBC (Bld) [#/Vol] 7.3 10*3/uL 4.4-11.0 [facility] Work Phone: Blood erythrocytes count (nu mber/volume)on 10-13-2021 RBC (Bld) [#/Vol] 3.58 10*6/uL 4.6-6.2 [facility] Work Phone: Blood hemoglobin measurement (mass/volume)on 10-13-2021 Hemoglobin (Bld) [Mass/Vol] 10.7 g/dL 13.0-16.5 [facility] Work Phone: Blood lymphocytes/100 leukoc yteson 10-13-2021 Lymphocytes/100 WBC (Bld) 15.6 % 19-41 [facility] Work Phone: Blood monocytes/100 leukocyt eson 10-13-2021 Monocytes/100 WBC (Bld) 8.5 % 0-10 [facility] Work Phone: Blood platelet mean volumeon 10-13-2021 Platelet mean volume (Bld) [Entitic vol] 10.6 fL 6.2-12.0 [facility] Work Phone: [phone] Determination of erythrocyte mean corpuscular volume (MCV)on 10-13-2021 MCV (RBC) [Entitic vol] 91.1 fL 80-94 [facility] Work Phone: Hematocrit Auto (Bld) [Volum e fraction]on 10-13-2021 Hematocrit (Bld) [Volume fraction] 32.6 % 40-54 [facility] Work Phone: [phone] Laboratory - Chemistry and C hemistry - challengeon 10-13-2021 CO2 [Moles/Vol] 28.0 mmol/L 21.0-32.0 [facility] Work Phone: [phone] Urea nitrogen/Creatinine [Mass ratio] 13.6 mg/mg 10-20 [facility] Work Phone: Laboratory - Hematology and Cell countson 10-13-2021 Erythrocyte distribution width (RBC) [Entitic vol] 47.7 fL 35.1-43.9 [facility] Work Phone: [phone] Erythrocyte distribution width (RBC) [Ratio] 14.3 % 11.6-14.6 [facility] Work Phone: Immature granulocytes/100 WBC (Bld) 0.700 % 0.0-0.9 [facility] Work Phone: [phone] Comment on above: IG% - Immature Granu locytes (promyelocytes, myelocytes and metamyelocytes) > 1% indicates that a LEFT SHIFT is Present. MCH (RBC) [Entitic mass] 29.9 pg 27.0-32.0 [facility] Work Phone: Nucleated RBC/100 WBC (Bld) [Ratio] 0 % 0-5 [facility] Work Phone: MCHC Auto (RBC) [Mass/Vol]on 10-13-2021 MCHC (RBC) [Mass/Vol] 32.8 g/dL 32-36 [facility] Work Phone: No Panel Informationon 10-13 Estimated GFR (MDRD) Amer 48 mL/min >60 [facility] Work Phone: Comment on above: GFR Calc Estimated GFR (MDRD) Non-Af Amer 40 mL/min >60 [facility] Work Phone: Comment on above: Non- GFR Calc Platelets bldon 10-13-2021 Platelets (Bld) [#/Vol] 185 10*3/uL 150-450 [facility] Work Phone: Serum or plasma calcium pedrito urement (mass/volume)on 10-13-2021 Calcium [Mass/Vol] 9.0 mg/dL 8.5-10.1 [facility] Work Phone: Serum or plasma creatinine m easurement (mass/volume)on 10-13-2021 Creatinine [Mass/Vol] 1.76 mg/dL 0.70-1.30 [facility] Work Phone: Comment on above: The validity of the calculated GFR & GFRAA in patients over 70 years has not been determined. Clinical correlation is essential. Serum or plasma urea nitroge n measurement (mass/volume)on 10-13-2021 Urea nitrogen [Mass/Vol] 24 mg/dL 7-18 [facility] Work Phone: Thin prep Papanicolaou smear with manual screeningon 10-13-2021 Thin prep Papanicolaou smear with manual screening 5 5-15 [facility] Work Phone: XR Chest PA and Lateralon IMPRESSION: 1. Lines, Tubes, and Devices: None 2. Lungs and Pleura: The lungs are clear. No infiltrates, nodules or pleural effusions are seen. 3. Cardiomediastinal silhouette: Heart size within normal limits. Pulmonary vascularity is unremarkable. 4. Other: Bony structures unremarkable. Podiatric Assistant: DAVID Transcribe Date/Time: Feb 14 2021 11:21A Dictated by : STEPHANIE STAFFORD DO This examination was interpreted and the report reviewed and electronically signed by: STEPHANIE STAFFORD DO on Feb 14 2021 11:21AM [facility] DIVISION OF RADIOLOGY * * *Final Report* * * DATE OF EXAM: Feb 14 2021 11:17AM WOX [id number] - XR CHEST 2V FRONTAL/LAT / PROCEDURE REASON: Cough * * * * Physician Interpretation * * * * EXAMINATION: CHEST RADIOGRAPH (2 VIEW FRONTAL & LATERAL) CLINICAL HISTORY: Cough MQ: [id number] EXAM DATE/TIME: 02/14/2021 11:17 AM Comparison: 11/07/2020 RESULT: DIVISION OF RADIOLOGY Provider, [facility] - 02/14/2021 * * *Final Report* * [...] is unremarkable. 4. Other: Bony structures unremarkable. Podiatric Assistant: DAVID Transcribe Date/Time: Feb 14 2021 11:21A Dictated by : STEPHANIE STAFFORD DO This examination was interpreted and the report reviewed and electronically signed by: STEPHANIE STAFFORD DO on Feb 14 2021 11:21AM EST [facility] Radiology Study observation (narrative) [facility] XR Chest PA and LateralOrder ed By: Ccf Provider on 02-14-2021 [facility] No Panel Informationon 11-07 Radiology Study observation (narrative) [facility] XR Abdomen Supine and Uprigh ton 11-07-2020 IMPRESSION: Nonobstr uctive bowel gas pattern with fecal retention. Podiatric Assistant: DAVID Transcribe Date/Time: Nov 07 2020 12:25P [...] no pathologic calculi. DIVISION OF RADIOLOGY [facility] * * *Final Report* * [...] Nonobstructive bowel gas pattern with fecal retention. Podiatric Assistant: [facility] Transcribe Date/Time: Nov 07 2020 12:25P Dictated by : HENNA PALACIOS MD This examination was interpreted and the report reviewed and electronically signed by: HENNA PALACIOS MD on Nov 07 2020 12:26PM EST [facility] XR Abdomen Supine and Uprigh tOrdered By: [facility]cf Provider on [facility]-07-[facility] PA and Lateralon IMPRESSION: Stable chest. No acute cardiopulmonary process. Podiatric Assistant: [facility] Transcribe Date/Time: Nov 07 2020 12:37P Dictated by : HENNA PALACIOS MD This examination was interpreted and the report reviewed and electronically signed by: HENNA PALACIOS MD on Nov 07 2020 12:39PM EST DIVISION OF RADIOLOGY * * *Final [...] structures are intact DIVISION OF RADIOLOGY Provider, [facility] - 11/07/2020 * * *Final Report* [...] IMPRESSION: Stable chest. No acute cardiopulmonary process. Podiatric Assistant: PSCB Transcribe Date/Time: Nov 07 2020 12:37P Dictated by : HENNA PALACOIS MD This examination was interpreted and the report reviewed and electronically signed by: HENNA PALACIOS MD on Nov 07 2020 12:39PM [facility] Op Noteon 10-30-2020 Op Note PATIENT: AXEL SERRANO ADMISSION DATE: 10/16/2020 SURGERY DATE: 10/16/2020 DATE OF : 1940 AGE: 80 ADMITTING PHYSICIAN: Reinier Shore MD ATTENDING PHYSICIAN: Junito Borjas MD DICTATING PHYSICIAN: Junito Borjas MD OPERATIVE RECORD Procedure: A #29 TONA S3 VALVE IMPLANTATION, TRANSFEMORAL TRANSCATHETER AORTIC VALVE REPLACEMENT. Preoperative Diagnosis: Severe symptomatic aortic valvular stenosis. Postoperative Diagnosis: Severe symptomatic aortic valvular stenosis. Anesthesia: Conscious sedation. Cardiologists: 1. Reinier Shore M.D. 2. Carter Mistry M.D. Indications [...] radial artery, and right femoral vein. A 6-Swiss sheath was placed in the right femoral vein through which a temporary pacing wire was advanced to the RV apex where appropriate capture was documented. Sterile tubing was attached to the side port of this sheath. A 6-Swiss sheath was placed in the right radial artery through which a pigtail catheter was placed to the aortic annulus for confirmation of the implant angle. A 6-Swiss sheath was placed in the right femoral [...] to the recovery room. Disk[employer] Job ID: [id number] Junito Borjas MD DOD:10/30/2020 09:47 A MARY/petey DOT:10/30/2020 10:26 A Job Number: [id number] Document Number: [id number] cc: Reinier Shore MD [address] [facility] [address] [facility] [address] Junito Borjas MD [facility] [address] [facility] [address] [facility] [address] Normal [facility] Basic Metabolic Panelon 06- Calcium [Mass/Vol] 9.6 mg/dL Normal 8.4-10.4 [facility] Comment on above: Performed By: #### H LEDY FELIPE3 #### [address] [address] Anion gap [Moles/Vol] 9 mmol/L Normal 3-13 [facility] Comment on above: Performed By: #### H LEDY FELIPE3 #### [facility] [address] [place] [address] CO2 [Moles/Vol] 26 mmol/L Normal 22-30 [facility] Comment on above: Performed By: #### H LEDY FELIPE3 #### [facility] [address] [place], [place] Creatinine [Mass/Vol] 1.38 mg/dL High 0.52-1.25 [facility] Comment on above: Performed By: #### H LEDY FELIPE3 #### [facility] [address] [place], [place] GFR/1.73 sq M.predicted among blacks MDRD (S/P/Bld) [Vol rate/Area] 55.4 mL/min/{1.73_m2} Abnormal >60 [facility] Comment on above: Performed By: #### H DESTINEE BMP3 #### [facility] [address] [place] [address] GFR/1.73 sq M.predicted among non-blacks MDRD (S/P/Bld) [Vol rate/Area] 47.8 mL/min/{1.73_m2} Abnormal >60 [facility] Comment on above: Result Comment: KDIG O [...] tubular creatinine secretion. Performed By: #### H DESTINEE BMP3 #### [facility] [address] [place], [place] Glucose [Mass/Vol] 109 mg/dL High 70-100 [facility] Comment on above: Performed By: #### H DESTINEE BMP3 #### [facility] [address] [place], [place] Urea nitrogen [Mass/Vol] 28 mg/dL High 7-20 [facility] Comment on above: Performed By: #### H EMOG, BMP3 #### [facility] [address] [place] [address] Chloride [Moles/Vol] 104 mmol/L Normal 98-107 [facility] Comment on above: Performed By: #### H EMOG, BMP3 #### [facility] [address] [place] [address] Potassium [Moles/Vol] 4.9 mmol/L Normal 3.5-5.1 [facility] Comment on above: Performed By: #### H ANDRADEG, BMP3 #### [facility] [address] [place] [address] Sodium [Moles/Vol] 138 mmol/L Normal 135-145 [facility] Comment on above: Performed By: #### H EMOG, BMP3 #### [facility] [address] [place] [address] Basic Metabolic PanelOrdered By: Alva Lara on 10-24-2020 Anion gap [Moles/Vol] 9 mmol/L 3 - 13 mmol/L [facility] Work Phone: Calcium [Mass/Vol] 9.6 mg/dL 8.4 - 10. 4 mg/dL [facility] Work Phone: Chloride [Moles/Vol] 104 mmol/L 98 - 10 7 mmol/L [facility] Work Phone: CO2 [Moles/Vol] 26 mmol/L 22 - 30 mmol/L [facility] Work Phone: Creatinine [Mass/Vol] 1.38 mg/dL High 0.52 - 1.25 mg/dL [facility] Work Phone: EGFR IF NonAfrican Guyanese 47.8 mL/min Abnormal >60 [facility] Work Phone: Comment on above: KDIGO guidelines [...] 55.4 mL/min/{1.73_m2} Abnormal >60 [facility] Work Phone: [phone] Glucose [Mass/Vol] 109 mg/dL High 70 - 100 mg/dL [facility] Work Phone: [phone] Interpretation and review of laboratory results Abnormal [facility] Work Phone: [phone] Potassium [Moles/Vol] 4.9 mmol/L 3.5 - 5.1 mmol/L [facility] Work Phone: [phone] Sodium [Moles/Vol] 138 mmol/L 135 - 145 mmol/L [facility] Work Phone: [phone] Urea nitrogen (BldV) [Mass/Vol] 28 mg/dL High 7 - 20 mg/dL [facility] Work Phone: [phone] Test Performed by [facility], [address] [place] [address] [facility] Work Phone: [phone] [facility] Work Phone: [phone] CBCOrdered By: Alva taylor on 10-24-2020 Hematocrit (Bld) [Volume fraction] 32.9 % Low 40.0 - 52.0 % [facility] Work Phone: [phone] Hemoglobin.gastrointest inal spec 1 Ql (Stl) 11.5 g/dL Low 13.0 - 18.0 g/dL [facility] Work Phone: [phone] Interpretation and review of laboratory results Abnormal [facility] Work Phone: [phone] MCH (RBC) [Entitic mass] 29.9 pg 26.0 - 34.0 pg [facility] Work Phone: MCHC (RBC) [Mass/Vol] 34.9 % 32.0 - 36.0 % [facility] Work Phone: MCV (RBC) [Entitic vol] 85.7 fL 80.0 - 98.0 fL [facility] Work Phone: Platelet distribution width (Bld) [Ratio] 15.4 % High 11.5 - 14.5 % [facility] Work Phone: Platelet mean volume (Bld) [Entitic vol] 8.8 fL 7.4 - 10.4 fL [facility] Work Phone: Platelets (Bld) [#/Vol] 168 10*3/uL 140 - 440 10*3/uL [facility] Work Phone: RBC (Bld) [#/Vol] 3.83 10*6/uL Low 4.40 - 5.90 10*6/uL [facility] Work Phone: WBC (Bld) [#/Vol] 7.9 10*3/uL 3.6 - 10.7 10*3/uL [facility] Work Phone: Test Performed by [address] [address] [facility] Work Phone: [facility] Phone: Hemogramon 10-24-2020 Erythrocyte distribution width (RBC) [Ratio] 15.4 % High 11.5-14.5 [facility] Comment on above: Performed By: #### H LEDY FELIPE3 #### [facility] [employer] [place] [address] Hematocrit (Bld) [Volume fraction] 32.9 % Low 40.0-52.0 [facility] Comment on above: Performed By: #### H LEDY FELIPE3 #### [facility] [employer] [facility] [address] [place] [address] Hemoglobin (Bld) [Mass/Vol] 11.5 g/dL Low 13.0-18.0 [facility] Comment on above: Performed By: #### H EMOG, BMP3 #### [facility] [address] [place], [place] MCH (RBC) [Entitic mass] 29.9 pg Normal 26.0-34.0 [facility] Comment on above: Performed By: #### H DESTINEE, BMP3 #### [facility] [address] [place], [place] MCHC 34.9 % Normal 32.0-36.0 [facility] Comment on above: Performed By: #### H DESTINEE BMP3 #### [facility] [address] [place], [place] MCV (RBC) [Entitic vol] 85.7 fL Normal 80.0-98.0 S [facility] Comment on above: Performed By: #### H DESTINEE BMP3 #### [place] [address] [place] Platelet mean volume (Bld) [Entitic vol] 8.8 fL Normal 7.4-10.4 [facility] Comment on above: Performed By: #### H DESTINEE BMP3 #### [facility] [address] [place], [place] Platelets (Bld) [#/Vol] 168 10*3/uL Normal 140-440 [facility] Comment on above: Performed By: #### H DESTINEE BMP3 #### [facility] [address] [place], [place] RBC (Bld) [#/Vol] 3.83 10*6/uL Low 4.40-5.90 [facility] Comment on above: Performed By: #### H DESTINEE, BMP3 #### [facility] [address] [place], [place] WBC (Bld) [#/Vol] 7.9 10*3/uL Normal 3.6-10.7 [facility] Comment on above: Performed By: #### H EMOFlynn, BMP3 #### [facility] [address] [place], [place] Basic Metabolic Panelon 06--2020 Anion gap [Moles/Vol] 6 mmol/L Normal 3-13 [facility] Comment on above: Performed By: #### H DESTINEE, BMP3 ####[employer] [address] [place], [place] Calcium [Mass/Vol] 9.0 mg/dL Normal 8.4-10.4 [facility] Comment on above: Performed By: #### H DESTINEE, BMP3 ####[facility] [employer] [address] [place], [place] CO2 [Moles/Vol] 24 mmol/L Normal 22-30 [facility] Comment on above: Performed By: #### H DESTINEE BMP3 ####[facility] [employer] [address] [place], [place] Glucose [Mass/Vol] 145 mg/dL High 70-100 [facility] Comment on above: Performed By: #### H DESTINEE BMP3 ####[facility] [employer] [address] [place], [place] Urea nitrogen [Mass/Vol] 27 mg/dL High 7-20 [facility] Comment on above: Performed By: #### H DESTINEE BMP3 ####[facility] [employer] [address] [place], [place] Creatinine [Mass/Vol] 1.23 mg/dL Normal 0.52-1.25 [facility] Comment on above: Performed By: #### H DESTINEE, BMP3 ####[employer] [address] [place], [place] GFR/1.73 sq M.predicted among blacks MDRD (S/P/Bld) [Vol rate/Area] 63.7 mL/min/{1.73_m2} Normal >60 [facility] Comment on above: Performed By: #### H DESTINEE, BMP3 ####[employer] [address] [place], [place] GFR/1.73 sq M.predicted among non-blacks MDRD (S/P/Bld) [Vol rate/Area] 54.9 mL/min/{1.73_m2} Abnormal >60 [facility] Comment on above: Result Comment: KDIG O [...] tubular creatinine secretion. Performed By: #### H DESTINEE BMP3 ####[employer] [place] [address] Potassium [Moles/Vol] 4.8 mmol/L Normal 3.5-5.1 [facility] Comment on above: Result Comment: Vadimjoe brain hemolysed, interpret with caution. Performed By: #### H DESTINEE BMP3 ####[employer] [address] [place] [address] Sodium [Moles/Vol] 136 mmol/L Normal 135-145 [facility] Comment on above: Performed By: #### H DESTINEE, BMP3 ####[employer] [place] [address] Chloride [Moles/Vol] 106 mmol/L Normal 98-107 [facility] Comment on above: Performed By: #### H DESTINEE, BMP3 ####[employer] [address] [place] [address] Basic Metabolic PanelOrdered By: Radha Mistry on 10-17-2020 Anion gap [Moles/Vol] 6 mmol/L 3 - 13 mmol/L [facility] Work Phone: Calcium [Mass/Vol] 9.0 mg/dL 8.4 - 10. 4 mg/dL [facility] Work Phone: Chloride [Moles/Vol] 106 mmol/L 98 - 10 7 mmol/L [facility] Work Phone: CO2 [Moles/Vol] 24 mmol/L 22 - 30 mmol/L [facility] Work Phone: Creatinine [Mass/Vol] 1.23 mg/dL 0.52 - 1.25 mg/dL [facility] Work Phone: EGFR IF NonAfrican Guyanese 54.9 mL/min Abnormal >60 [facility] Work Phone: Comment on above: [...] 145 mg/dL High 70 - 100 mg/dL [facility] Work Phone: Interpretation and review of laboratory results Abnormal [facility] Work Phone: Potassium [Moles/Vol] 4.8 mmol/L 3.5 - 5.1 mmol/L [facility] Work Phone: Comment on above: Slightly hemolysed, interpret with caution. Sodium [Moles/Vol] 136 mmol/L 135 - 145 mmol/L [facility] Work Phone: Urea nitrogen (BldV) [Mass/Vol] 27 mg/dL High 7 - 20 mg/dL [facility] Work Phone: [phone] Test Performed by [facility], [place] [address] [facility] Work Phone: [phone] [facility] Work Phone: [...] 80.0 - 98.0 fL [facility] Work Phone: [phone] Platelet distribution width (Bld) [Ratio] 15.4 % High 11.5 - 14.5 % [facility] Work Phone: [phone] Platelet mean volume (Bld) [Entitic vol] 8.8 fL 7.4 - 10.4 fL [facility] Work Phone: [phone] Platelets (Bld) [#/Vol] 136 10*3/uL Low 140 - 440 10*3/uL [facility] Work Phone: [phone] RBC (Bld) [#/Vol] 3.69 10*6/uL Low 4.40 - 5.90 10*6/uL [facility] Work Phone: [phone] WBC (Bld) [#/Vol] 8.9 10*3/uL 3.6 - 10.7 10*3/uL [facility] Work Phone: [phone] Test Performed by [facility], [address] [place] [address] [facility] Work Phone: [facility] Work Phone: EKG 12 leadOrdered By: Star Mistry on 10-17-2020 [facility] [employer] [facility] Test Date: 2020-10-16 Pat Name: AXEL SERRANO Department: 1AU Room: [facility]20 Gender: M Tread Cutter: [facility] : 1940 Requested By: RADHA MISTRY Order Number: [id number] Reading MD: Steve Romero Measurements Intervals [place] Rate: 54 P: 28 [place]: 189 QRS: -40 QRSD: 131 T: 153 QT: 486 QTc: 461 Interpretive Statements Sinus bradycardia Ventricular premature complex LVH with IVCD, LAD and secondary repol abnrm Electronically Signed On 10-17-2020 15:14:19 EDT by Steve Romero [facility] Work Phone: Raman, [facility] Incoming Cardiology Results From [facility] - 10/17/2020 3:15 PM EDT [facility] Test Date: 2020-10-16 Pat Name: AX[facility]ERRAN[facility] Gender: M Tread Cutter: [facility] : 1940 Requested By: RADHA MISTRY Order Number: [id number] Reading : Steve Romero Measurements Intervals [place] Rate: 54 P: 28 [place]: 189 QRS: -40 QRSD: 131 T: 153 QT: 486 QTc: 461 Interpretive Statements Sinus bradycardia Ventricular premature complex LVH with IVCD, LAD and secondary repol abnrm Electronically Signed On 10-17-2020 15:14:19 EDT by Steve Romero [facility] Work Phone: [facility] Work Phone: Echo Complete w/wo Contrasto n 10-17-2020 Echo Complete w/wo Contrast Patient Name: AXEL SERRANO Ultrasound ACCESSION EXAM DATE/TIME PROCEDURE ORDERING PROVIDER [id number] 10/17/2020 15:06 EDT Echo Complete w/wo BRIAN MISTRY MEGGAN Contrast Reason For Exam (Echo Complete w/wo Contrast) severe s/p TAVR POD 1 Report TRANSTHORACIC ECHOCARDIOGRAM PATIENT: Yue, STUDY DATE: 10/17/2020 Axel : 1940 AGE: 80 HT/WT: 177.8 cm (70 127.5 kg (280.4 in) lb) GENDER: M BP: 124 / 73 LOCATION: [facility] PATIENT Inpatient main STATUS: *ORDERING PHYSICIAN: * Radha Mistry *READING PHYSICIAN: * Franklin *HEMSTITCHING MACHINE OPERATOR: * Merry Naranjo MD RDCS,AE, PE, RVT [...] ml 2 (more content not included)... Normal [facility] Glucose,Bedsideon 10-17-2020 Glucose [Mass/Vol] 187 mg/dL High 70-100 [facility] Comment on above: Result Comment: Test performed by glucose meter. Results may be 10%-15% lower than serum/plasma values. (CLIA ID [id number]) Performed By: #### B GLU #### [facility] [address] [place], [place] Hemogramon 10-17-2020 Erythrocyte distribution width (RBC) [Ratio] 15.4 % High 11.5-14.5 [facility] Comment on above: Performed By: #### H LEDY FELIPE3 ####[facility] [employer] [address] [place], [place] Hematocrit (Bld) [Volume fraction] 30.9 % Low 40.0-52.0 [facility] Comment on above: Performed By: #### H DESTINEE BMP3 ####[facility] [employer] [address] [place], [place] Hemoglobin (Bld) [Mass/Vol] 10.8 g/dL Low 13.0-18.0 [facility] Comment on above: Performed By: #### H DESTINEE BMP3 ####[facility] [employer] [address] [place], [place] MCH (RBC) [Entitic mass] 29.2 pg Normal 26.0-34.0 [facility] Comment on above: Performed By: #### H DESTINEE BMP3 ####[facility] [employer] [address] [place], [place] MCHC 34.9 % Normal 32.0-36.0 [facility] Comment on above: Performed By: #### H DESTINEE BMP3 ####[facility] [employer] [address] [place], [place] MCV (RBC) [Entitic vol] 83.8 fL Normal 80.0-98.0 S [facility] Comment on above: Performed By: #### H DESTINEE BMP3 ####[facility] [employer] [address] [place] [address] Platelet mean volume (Bld) [Entitic vol] 8.8 fL Normal 7.4-10.4 [facility] Comment on above: Performed By: #### H DESTINEE, BMP3 ####[facility] [employer] [address] [place] [address] Platelets (Bld) [#/Vol] 136 10*3/uL Low 140-440 [facility] Comment on above: Performed By: #### H DESTINEE, BMP3 ####[facility] [address] [place] [address] RBC (Bld) [#/Vol] 3.69 10*6/uL Low 4.40-5.90 [facility] Comment on above: Performed By: #### H DESTINEE, BMP3 ####[facility] [employer] [address] [place] [address] WBC (Bld) [#/Vol] 8.9 10*3/uL Normal 3.6-10.7 [facility] Comment on above: Performed By: #### H DESTINEE BMP3 ####[facility] [employer] [address] [place], [place] Leukodepleted Red Cellson Leukodepleted Red Cells Leukodepleted Re d Cells: [id number] released 10/17/20 07:33 JMV Unit Blood Type: A Unit Blood Rh: POS Blood Product Code: AS1 Unit Number: [id number] Unit Status: released Barcoded Unit Number: =[id number] Barcoded Product Code: = Barcoded ABO/Rh: =%6200 Unit Expiration: [id number] Leukodepleted Red Cells: [id number] released 10/17/20 07:33 JMV Unit Blood Type: A Unit Blood Rh: POS Blood Product Code: AS1 Unit Number: [id number] Unit Status: released Barcoded Unit Number: =[id number] Barcoded Product Code: = Barcoded ABO/Rh: =%6200 Unit Expiration: Unit Volume Transfused: 0 Unit Transfusion Start Date/Time: Unit Transfusion End Date/Time: Normal [facility] Comment on above: Performed By: #### L RC ####[address] [address]#### TSGL ####[facility] POCT GlucoseOrdered By: Uvaldo Shore on 10-17-2020 Glucose [Mass/Vol] 187 mg/dL High 70 - 100 mg/dL [facility] Work Phone: Comment on above: Test performed by gl ucose meter. Results may be 10%-15% lower than serum/plasma values. (CLIA ID [id number]) Interpretation and review of laboratory results Abnormal [facility] Work Phone: Test Performed by [facility], [address] [place] [id number] [place] [address] Work Phone: [facility] Work Phone: Basic Metabolic Panelon 06-0 Anion gap [Moles/Vol] 8 mmol/L Normal 3-13 [facility] Comment on above: Performed By: #### H EMOFlynn BMP3 #### [address] [address] Chloride [Moles/Vol] 106 mmol/L Normal 98-107 [facility] Comment on above: Performed By: #### H EMOG, BMP3 #### [address] [address] Potassium [Moles/Vol] 5.1 mmol/L Normal 3.5-5.1 [facility] Comment on above: Result Comment: Slig htly hemolysed, interpret with caution. Performed By: #### H EMOG, BMP3 #### [address] [address] Sodium [Moles/Vol] 137 mmol/L Normal 135-145 [facility] Comment on above: Performed By: #### H EMOG, BMP3 #### [address] [address] Calcium [Mass/Vol] 8.7 mg/dL Normal 8.4-10.4 [facility] Comment on above: Performed By: #### H EMOG, BMP3 #### [facility] [address] [place] [address] CO2 [Moles/Vol] 25 mmol/L Normal 22-30 [facility] Comment on above: Performed By: #### H EMOG, BMP3 #### [facility] [address] [place] [address] Glucose [Mass/Vol] 154 mg/dL High 70-100 [facility] Comment on above: Performed By: #### H DESTINEE, BMP3 #### [facility] [address] [place] [address] Urea nitrogen [Mass/Vol] 31 mg/dL High 7-20 [facility] Comment on above: Performed By: #### H DESTINEE, BMP3 #### [facility] [address] [place] [address] Creatinine [Mass/Vol] 1.37 mg/dL High 0.52-1.25 [facility] Comment on above: Performed By: #### H EMOG, BMP3 #### [facility] [address] [place] [address] GFR/1.73 sq M.predicted among blacks MDRD (S/P/Bld) [Vol rate/Area] 55.9 mL/min/{1.73_m2} Abnormal >60 [facility] Comment on above: Performed By: #### H DESTINEE, BMP3 #### [facility] [address] [place] [address] GFR/1.73 sq M.predicted among non-blacks MDRD (S/P/Bld) [Vol rate/Area] 48.2 mL/min/{1.73_m2} Abnormal >60 [facility] Comment on above: Result Comment: KDIG O [...] Performed By: #### H LEDY FELIPE3 #### [employer] [address] [address] Basic Metabolic PanelOrdered By: Radha Mistry on 10-16-2020 Anion gap [Moles/Vol] 8 mmol/L 3 - 13 mmol/L [facility] Work Phone: Calcium [Mass/Vol] 8.7 mg/dL 8.4 - 10. 4 mg/dL [facility] Work Phone: Chloride [Moles/Vol] 106 mmol/L 98 - 10 7 mmol/L [facility] Work Phone: CO2 [Moles/Vol] 25 mmol/L 22 - 30 mmol/L [facility] Work Phone: Creatinine [Mass/Vol] 1.37 mg/dL High 0.52 - 1.25 mg/dL [facility] Work Phone: EGFR IF NonAfrican Guyanese 48.2 mL/min Abnormal >60 [facility] Work Phone: Comment on above: KDIGO guidelines [...] 55.9 mL/min/{1.73_m2} Abnormal >60 [facility] Work Phone: [phone] Glucose [Mass/Vol] 154 mg/dL High 70 [...] [facility] Work Phone: [phone] Test Performed by [facility], [address] [place] [address] [facility] Work Phone: [phone] [facility] Work Phone: [phone] CBCOrdered By: Radha patel 10-16-2020 Hematocrit (Bld) [Volume fraction] 31.3 % Low 40.0 - 52.0 % [facility] Work Phone: [phone] Hemoglobin.gastrointest inal spec 1 Ql (Stl) 10.8 g/dL Low 13.0 - 18.0 g/dL [facility] Work Phone: [phone] Interpretation and review of laboratory results Abnormal [facility] Work Phone: [phone] MCH (RBC) [Entitic mass] 29.6 pg 26.0 - 34.0 pg [facility] Work Phone: [phone] MCHC (RBC) [Mass/Vol] 34.4 % 32.0 - 36.0 % [facility] Work Phone: [phone] MCV (RBC) [Entitic vol] 86.1 fL 80.0 - 98.0 fL [facility] Work Phone: Platelet distribution width (Bld) [Ratio] 15.5 % High 11.5 - 14.5 % [facility] Work Phone: [phone] Platelet mean volume (Bld) [Entitic vol] 8.6 fL 7.4 - 10.4 fL [facility] Work Phone: [phone] Platelets (Bld) [#/Vol] 149 10*3/uL 140 - 440 10*3/uL [facility] Work Phone: [phone] RBC (Bld) [#/Vol] 3.64 10*6/uL Low 4.40 - 5.90 10*6/uL [facility] Work Phone: [phone] WBC (Bld) [#/Vol] 6.8 10*3/uL 3.6 - 10.7 10*3/uL [facility] Work Phone: [phone] Test Performed by [address] [address] [facility] Work Phone: [phone] [facility] Work Phone: [phone] ECHOCARDIOGRAM LIMITEDOrdere d By: Reinier Shore on 10-16-2020 LIMITED TRANSTHORACI C ECHOCARDIOGRAM Perioperative - TAVR PATIENT: Yue, STUDY DATE: 10/16/2020 Axel : 1940 AGE: 80 HT/WT: 177.8 cm (70 135.6 kg (298.4 in) lb) GENDER: M BP: 148 / 74 LOCATION: [facility] [employer] [facility] PATIENT Inpatient main STATUS: *ORDERING PHYSICIAN: * Reinier Shore MD *READING PHYSICIAN: * Danyel, *HEMSTITCHING MACHINE OPERATOR: * Esther Rivero MD RDCS, AE INDICATIONS: [...] VTI ratio, LVOT/AV (more content not included)... [facility] Work Phone: Raman, [employer] Incoming Cardiology [facility] - 10/16/2020 9:59 AM EDT LIMITED TRANSTHORACIC ECHOCARDIOGRAM Perioperative - TAVR PATIENT: Yue, STUDY DATE: 10/16/2020 Axel : 1940 AGE: 80 HT/WT: 177.8 cm (70 135.6 kg (298.4 in) lb) GENDER: M BP: 148 / 74 LOCATION: [facility] [employer] [facility] PATIENT Inpatient main STATUS: *ORDERING PHYSICIAN: * Reinier Shore MD *READING PHYSICIAN: * Danyel, LeslieHEMSTITCHING MACHINE OPERATOR: * Esther Rivero MD RD, AE INDICATIONS: [...] ml --------- Stroke (more content not included)... [facility] Work Phone: [facility] Work Phone: Echo Limited Echo w/wo Contr cindy 10-16-2020 Echo Limited Echo w/wo Contrast Patient Name: AXEL SERRANO Ultrasound ACCESSION EXAM DATE/TIME PROCEDURE ORDERING PROVIDER [id number] 10/16/2020 09:05 EDT Echo Limited Echo w/wo MD SHORE PETER Contrast Reason For Exam (Echo Limited Echo w/wo Contrast) TAVR procedure Report LIMITED TRANSTHORACIC ECHOCARDIOGRAM Perioperative - TAVR PATIENT: Yue, STUDY DATE: 10/16/2020 Axel : 1940 AGE: 80 HT/WT: 177.8 cm (70 135.6 kg (298.4 in) lb) GENDER: M BP: 148 / 74 LOCATION: [facility] PATIENT Inpatient main STATUS: *ORDERING PHYSICIAN: * Reinier Shore MD *READING PHYSICIAN: * Danyel, *HEMSTITCHING MACHINE OPERATOR: * Esther Rivero MD RD, AE INDICATIONS: [...] cm 0.6 (more content not included)... [facility] Glucose,Bedsideon 10-16-2020 Glucose [Mass/Vol] 161 mg/dL High 70-100 [facility] [employer] [facility] Comment on above: Result Comment: Test performed by glucose meter. Results may be 10%-15% lower than serum/plasma values. (CLIA ID [id number]) Performed By: #### B GLU ####[employer] [place] [place] [address] Hemogramon 10-16-2020 Erythrocyte distribution width (RBC) [Ratio] 15.5 % High 11.5-14.5 [facility] [employer] Comment on above: Performed By: #### H EMOG BMP3 #### [employer] [address] [place] [address] Hematocrit (Bld) [Volume fraction] 31.3 % Low 40.0-52.0 [facility] [employer] [facility] Comment on above: Performed By: #### H EMOG, BMP3 #### [facility] [address] [place], [place] Hemoglobin (Bld) [Mass/Vol] 10.8 g/dL Low 13.0-18.0 [facility] Comment on above: Performed By: #### H EMOG, BMP3 #### [facility] [address] [place], [place] MCH (RBC) [Entitic mass] 29.6 pg Normal 26.0-34.0 [facility] Comment on above: Performed By: #### H EMOG, BMP3 #### [facility] [address] [place], [place] MCHC 34.4 % Normal 32.0-36.0 [facility] Comment on above: Performed By: #### H EMOG, BMP3 #### [facility] [address] [place], [place] MCV (RBC) [Entitic vol] 86.1 fL Normal 80.0-98.0 S [facility] Comment on above: Performed By: #### H EMOG, BMP3 #### [facility] [address] [place], [place] Platelet mean volume (Bld) [Entitic vol] 8.6 fL Normal 7.4-10.4 [facility] Comment on above: Performed By: #### H EMOG, BMP3 #### [facility] [address] [place], [place] Platelets (Bld) [#/Vol] 149 10*3/uL Normal 140-440 [facility] Comment on above: Performed By: #### H EMOG, BMP3 #### [facility] [address] [place], [place] RBC (Bld) [#/Vol] 3.64 10*6/uL Low 4.40-5.90 [facility] Comment on above: Performed By: #### H EMOG, BMP3 #### [facility] [address] [place], [place] WBC (Bld) [#/Vol] 6.8 10*3/uL Normal 3.6-10.7 [employer] Comment on above: Performed By: #### H DESTINEE, LEDY3 #### [employer] [address] [place] [address] OPERATIVE REPORTOrdered By: Scanning on 10-16-2020 [facility] Work Phone: Op Noteon 10-16-2020 Op Note TAVR Procedural Repo rt Interventional Cardiologists: -Reinier Shore MD -Carter Mistry MD Cardiothoracic Surgeon: [...] Via the right femoral vein, a 6 Swiss sheath was placed and temporary pacing wire was placed into the RV apex with appropriate capture, in addition sterile tubing was attached and given the anesthesia for central access. Via right radial artery, a 6-Swiss sheath was placed and the pigtail catheter was placed into the aortic annulus with confirmation the implant angle. Via the right femoral artery, a 6-Swiss sheath was placed. The patient was then heparinized. Next, two Perclose devices were used using the pre-close strategy. A Super Stiff wire was then placed through the second Perclose into the descending aorta. Then, a 16-Swiss Tona E-sheath was introduced over the wire [...] care of your patient while hospitalized at [facility]. I will continue to follow along while hospitalized. Please do not hesitate to call with any questions. Normal [facility] POCT GlucoseOrdered By: Uvaldo Shore on 10-16-2020 Glucose [Mass/Vol] 161 mg/dL High 70 - 100 mg/dL [employer] Work Phone: Comment on above: Test performed by [employer] ucose meter. Results may be 10%-15% lower than serum/plasma values. (CLIA ID [id number]) Interpretation and review of laboratory results Abnormal [facility] Work Phone: Test Performed by [employer], [facility] [place] [address] [facility] Work Phone: [facility] Work Phone: [phone] Brain Natriuretic PeptideOrd ered By: Reinier Shore on 10-03-2020 Interpretation and review of laboratory results Abnormal [facility] Work Phone: Natriuretic peptide B (Bld) [Mass/Vol] 2995 pg/mL High 0 - 450 pg/mL [facility] Work Phone: Test Performed by [employer], [facility] [place] [address] [facility] Work Phone: [facility] Work Phone: CBC Auto DifferentialOrdered By: Reinier Shore on 10-03-2020 Absolute Baso # 0.0 10*3/uL 0.0 - 0.2 10*3/uL [facility] Work Phone: Absolute Neut # 5.0 10*3/uL 1.8 - 7.0 10*3/uL [facility] Work Phone: [phone] Basophils/100 WBC (Bld) 0.6 % 0.0 - 2.0 % [facility] Work Phone: [phone] Eosinophils (Bld) [#/Vol] 0.3 10*3/uL 0.0 - 0.5 10*3/uL [facility] Work Phone: Eosinophils/100 WBC (Bld) 3.8 % 1.0 - 6.0 % [facility] Work Phone: [phone] Granulocytes/100 WBC (Bld) 65.2 % 40.0 - 80.0 % [facility] Work Phone: Hematocrit (Bld) [Volume fraction] 33.4 % Low 40.0 - 52.0 % [facility] Work Phone: Hemoglobin.gastrointest inal spec 1 Ql (Stl) 11.4 g/dL Low 13.0 - 18.0 g/dL [facility] Work Phone: Interpretation and review of laboratory results Abnormal [facility] Work Phone: [phone] Lymphocytes (Bld) [#/Vol] 1.5 10*3/uL 1.0 - 4.3 10*3/uL [facility] Work Phone: Lymphocytes/100 WBC (Bld) 20.0 % 20.0 - 40.0 % [facility] Work Phone: MCH (RBC) [Entitic mass] 29.5 pg 26.0 - 34.0 pg [facility] Work Phone: MCHC (RBC) [Mass/Vol] 34.1 % 32.0 - 36.0 % [facility] Work Phone: MCV (RBC) [Entitic vol] 86.4 fL 80.0 - 98.0 fL [facility] Work Phone: [phone] Monocytes (Bld) [#/Vol] 0.8 10*3/uL 0.0 - 0.8 10*3/uL [facility] Work Phone: [phone] Monocytes/100 WBC (Bld) 10.4 % High 2.0 - 10.0 % [facility] Work Phone: [phone] Platelet distribution width (Bld) [Ratio] 15.4 % High 11.5 - 14.5 % [facility] Work Phone: [phone] Platelet mean volume (Bld) [Entitic vol] 8.6 fL 7.4 - 10.4 fL [facility] Work Phone: [phone] Platelets (Bld) [#/Vol] 185 10*3/uL 140 - 440 10*3/uL [facility] Work Phone: [phone] RBC (Bld) [#/Vol] 3.87 10*6/uL Low 4.40 - 5.90 10*6/uL [facility] Work Phone: [phone] WBC (Bld) [#/Vol] 7.7 10*3/uL 3.6 - 10.7 10*3/uL [facility] Work Phone: [phone] Test Performed by [address] [address] [facility] Work Phone: [phone] [facility] Work Phone: CR Chest PA/LATon 10-03-2020 CR Chest PA/LAT Patient Name: AXEL CHAMBERLAIN Diagnostic Radiology ACCESSION EXAM DATE/TIME PROCEDURE ORDERING PROVIDER [id number] 10/03/2020 13:36 EDT CR Chest PA and LAT BRIAN MISTRY MEGGAN CPT code 15510 Reason For Exam (CR Chest PA and [...] Transcribed Date and Time: 10/03/2020 1:38 Normal [facility] CTA Chest/Abdomen/Pelvis w/ + w/o contraon 10-03-2020 CTA Chest/Abdomen/Pelvis w/ + w/o contra Patient Name: AXEL SERRANO Computed Tomography ACCESSION EXAM DATE/TIME PROCEDURE ORDERING PROVIDER [id number] 10/03/2020 13:37 EDT CTA Chest/Abdomen/Pelvis ADRIENNE LARA MICHELLE w/ + w/o contra CPT code 48185 49743 [id number] Reason For Exam (CTA Chest/Abdomen/Pelvis w/ + w/o contra) TAVR Report [facility] Valve [facility] Cardiovascular CTA Indication: 80-year-old year-old woman with severe aortic stenosis, being evaluated for transcatheter aortic valve implantation. Technique: Computed tomography of the heart, thoracoabdominal aorta, and iliofemoral system was performed using a [employer] One 320 detector scanner. Images were [...] Predicted deployment angle (3-cusp view): ULRICH 5, RAIL CREW MEMBER 4 Aortic Annulus: Dimensions: 3.6 x 2.6 [...] Transcribed Date and Time: 10/04/2020 6:04 Normal [facility] Comp Metabolic Panelon 10-03 ALT [Catalytic activity/Vol] 10 U/L Normal 0-49 [facility] Comment on above: Result Comment: The ALT test is performed by an updated assay method. Please note that the reference intervals have been changed and are now sex specific. Performed By: #### H EMDF, CMP3, BNP3 #### [facility] [address] [place] [phone] Calcium [Mass/Vol] 9.5 mg/dL Normal 8.4-10.4 [facility] Comment on above: Performed By: #### H EMDF, CMP3, BNP3 #### [facility] [address] [place], [place] Glucose [Mass/Vol] 77 mg/dL Normal 70-100 [facility] Comment on above: Performed By: #### H EMDF, CMP3, BNP3 #### [facility] [address], [place] ALP [Catalytic activity/Vol] 32 U/L Low 38-126 [facility] Comment on above: Performed By: #### H EMDF, CMP3, BNP3 #### [place] [address] [place], [place] Anion gap [Moles/Vol] 8 mmol/L Normal 3-13 [facility] Comment on above: Performed By: #### H EMDF, CMP3, BNP3 #### [place] [address] [address] [place], [place] AST [Catalytic activity/Vol] 19 U/L Normal 15-46 [facility] Comment on above: Performed By: #### H EMDF, CMP3, BNP3 #### [place] [address] [place], [place] Bilirubin [Mass/Vol] 0.6 mg/dL Normal 0.2-1.3 [facility] Comment on above: Performed By: #### H EMDF, CMP3, BNP3 #### [facility] [address] [place], [place] CO2 [Moles/Vol] 26 mmol/L Normal 22-30 [facility] Comment on above: Performed By: #### H EMDF, CMP3, BNP3 #### [place] [address] [place], [place] Creatinine [Mass/Vol] 1.34 mg/dL High 0.52-1.25 [facility] Comment on above: Performed By: #### H EMDF, CMP3, BNP3 #### [place] [address] [place], [place] GFR/1.73 sq M.predicted among blacks MDRD (S/P/Bld) [Vol rate/Area] 57.4 mL/min/{1.73_m2} Abnormal >60 [facility] Comment on above: Performed By: #### H EMDF, CMP3, BNP3 #### [facility] [address] [place], [place] GFR/1.73 sq M.predicted among non-blacks MDRD (S/P/Bld) [Vol rate/Area] 49.5 mL/min/{1.73_m2} Abnormal >60 [facility] Comment on above: Result Comment: KDIG O [...] By: #### H EMDF, CMP3, BNP3 #### [facility] [employer] [facility] [address] [place], [place] Protein [Mass/Vol] 6.8 g/dL Normal 6.3-8.2 [facility] Comment on above: Performed By: #### H EMDF, CMP3, BNP3 #### [facility] [employer] [facility] [address] [place], [place] Urea nitrogen [Mass/Vol] 33 mg/dL High 7-20 [facility] Comment on above: Performed By: #### H EMDF, CMP3, BNP3 #### [facility] [employer] [facility] [address] [place], [place] Potassium [Moles/Vol] 4.9 mmol/L Normal 3.5-5.1 [facility] Comment on above: Performed By: #### H EMDF, CMP3, BNP3 #### [facility] [address] [place], [place] Sodium [Moles/Vol] 136 mmol/L Normal 135-145 [facility] Comment on above: Performed By: #### H EMDF, CMP3, BNP3 #### [facility] [address] [place], [place] Albumin [Mass/Vol] 3.6 g/dL Normal 3.5-5.0 [facility] Comment on above: Performed By: #### H EMDF, CMP3, BNP3 #### [facility] [address] [place], [place] Chloride [Moles/Vol] 102 mmol/L Normal 98-107 [facility] Comment on above: Performed By: #### H EMDF, CMP3, BNP3 #### [place] [address] [place], [place] Comprehensive Metabolic Pane lOrdered By: Reinier Shore on 10-03-2020 Albumin [Mass/Vol] 3.6 g/dL 3.5 - 5.0 g/dL [facility] Work Phone: ALP (Bld) [Catalytic activity/Vol] 32 U/L Low 38 - 126 U/L [facility] Work Phone: ALT [Catalytic activity/Vol] 10 U/L 0 - 49 U/L [facility] Work Phone: Comment on above: The ALT test is perf ormed by an updated assay method. Please note that the reference intervals have been changed and are now sex specific. Anion gap [Moles/Vol] 8 mmol/L 3 - 13 mmol/L [facility] Work Phone: AST [Catalytic activity/Vol] 19 U/L 15 - 46 U/L [facility] Work Phone: Bilirubin [Mass/Vol] 0.6 mg/dL 0.2 - 1 .3 mg/dL [facility] Work Phone: Calcium [Mass/Vol] 9.5 mg/dL 8.4 - 10. 4 mg/dL [facility] Work Phone: Chloride [Moles/Vol] 102 mmol/L 98 - 10 7 mmol/L [facility] Work Phone: CO2 [Moles/Vol] 26 mmol/L 22 - 30 mmol/L [facility] Work Phone: Creatinine [Mass/Vol] 1.34 mg/dL High 0.52 - 1.25 mg/dL [facility] Work Phone: EGFR IF NonAfrican Guyanese 49.5 mL/min Abnormal >60 [facility] Work Phone: [...] fraction] 6.8 g/dL 6.3 - 8.2 g/dL [facility] Work Phone: GFR/1.73 sq M.predicted among blacks MDRD (S/P/Bld) [Vol rate/Area] 57.4 mL/min/{1.73_m2} Abnormal >60 [facility] Work Phone: Glucose [Mass/Vol] 77 mg/dL 70 - 100 mg/dL [facility] Work Phone: Interpretation and review of laboratory results Abnormal [facility] Work Phone: Potassium [Moles/Vol] 4.9 mmol/L 3.5 - 5.1 mmol/L [facility] Work Phone: Sodium [Moles/Vol] 136 mmol/L 135 - 145 mmol/L [facility] Work Phone: Urea nitrogen (BldV) [Mass/Vol] 33 mg/dL High 7 - 20 mg/dL [facility] Work Phone: Test Performed by [facility], [address] [place] [address] [facility] Work Phone: [facility] Work Phone: Hemogram w/ Autodiffon 10-03 Abs Baso Cnt 0.0 10*3/uL Normal 0.0-0.2 [facility] Comment on above: Performed By: #### H EMDF, CMP3, BNP3 #### [address] [phone] Abs Neutrophile Cnt 5.0 10*3/uL Normal 1.8-7.0 [facility] Comment on above: Performed By: #### H EMDF, CMP3, BNP3 #### [address] [address] Basophils/100 WBC (Bld) 0.6 % Normal 0.0-2.0 [facility] Comment on above: Performed By: #### H EMDF, CMP3, BNP3 #### [address] [address] Eosinophils (Bld) [#/Vol] 0.3 10*3/uL Normal 0.0-0.5 [facility] Comment on above: Performed By: #### H EMDF, CMP3, BNP3 #### [address] [address] Eosinophils/100 WBC (Bld) 3.8 % Normal 1.0-6.0 [facility] Comment on above: Performed By: #### H EMDF, CMP3, BNP3 #### [address] [address] Erythrocyte distribution width (RBC) [Ratio] 15.4 % High 11.5-14.5 [facility] Comment on above: Performed By: #### H EMDF, CMP3, BNP3 #### [place] [address] [place] Granulocytes/100 WBC (Bld) 65.2 % Normal 40.0-80.0 [facility] Comment on above: Performed By: #### H EMDF, CMP3, BNP3 #### [place] [address] [place] Hematocrit (Bld) [Volume fraction] 33.4 % Low 40.0-52.0 [facility] Comment on above: Performed By: #### H EMDF, CMP3, BNP3 #### [place] [address] [place], [place] Hemoglobin (Bld) [Mass/Vol] 11.4 g/dL Low 13.0-18.0 [facility] Comment on above: Performed By: #### H EMDF, CMP3, BNP3 #### [place] [address] [place] Lymphocytes (Bld) [#/Vol] 1.5 10*3/uL Normal 1.0-4.3 [facility] Comment on above: Performed By: #### H EMDF, CMP3, BNP3 #### [address] Lymphocytes/100 WBC (Bld) 20.0 % Normal 20.0-40.0 [facility] Comment on above: Performed By: #### H EMDF, CMP3, BNP3 #### [place] [address] [address] [place] MCH (RBC) [Entitic mass] 29.5 pg Normal 26.0-34.0 [facility] Comment on above: Performed By: #### H EMDF, CMP3, BNP3 #### [address] MCHC 34.1 % Normal 32.0-36.0 [facility] Comment on above: Performed By: #### H EMDF, CMP3, BNP3 #### [place] [address] [place], [place] MCV (RBC) [Entitic vol] 86.4 fL Normal 80.0-98.0 [facility] Comment on above: Performed By: #### H EMDF, CMP3, BNP3 #### [place] [address] [place], [place] Monocytes (Bld) [#/Vol] 0.8 10*3/uL Normal 0.0-0.8 [facility] Comment on above: Performed By: #### H EMDF, CMP3, BNP3 #### [place] [address] [address] [place], [place] Monocytes/100 WBC (Bld) 10.4 % High 2.0-10.0 [facility] Comment on above: Performed By: #### H EMDF, CMP3, BNP3 #### [place] [address] [address] [place] Platelet mean volume (Bld) [Entitic vol] 8.6 fL Normal 7.4-10.4 [facility] Comment on above: Performed By: #### H EMDF, CMP3, BNP3 #### [place] [address] [place], [place] Platelets (Bld) [#/Vol] 185 10*3/uL Normal 140-440 [facility] Comment on above: Performed By: #### H EMDF, CMP3, BNP3 #### [place] [address] [place], [place] RBC (Bld) [#/Vol] 3.87 10*6/uL Low 4.40-5.90 [facility] Comment on above: Performed By: #### H EMDF, CMP3, BNP3 #### [place] [address] [place], [place] WBC (Bld) [#/Vol] 7.7 10*3/uL Normal 3.6-10.7 [facility] Comment on above: Performed By: #### H EMDF, CMP3, BNP3 #### [place] [address] [place], [place] NT pro BNPon 10-03-2020 Natriuretic peptide B (Bld) [Mass/Vol] 2995 pg/mL High 0-450 [facility] [employer] [facility] Comment on above: Performed By: #### H EMDF, CMP3, BNP3 #### [facility] [employer] System [address] [place] [address] TS GELon 10-03-2020 TS GEL ABO Group: A Rh, Gel: POS Antibody Screen Gel: NEG Normal [facility] [employer] [facility] Comment on above: Performed By: #### L RC ####[facility] [place] [address]#### TSGL ####[facility] Platiza TYPE AND SCREENOrdered By: Nemo Shore on 10-03-2020 ABO Grouping A [facility] Work Phone: Rh Type Positive [facility] Work Phone: Test Performed by [facility], [address] [place] [address] [facility] Work Phone: [facility] Work Phone: XR CHEST (2 VW)Ordered By: Mery Mistry on 10-03-2020 Patient Name: AXEL CHAMBERLAIN Diagnostic Radiology ACCESSION EXAM DATE/TIME PROCEDURE ORDERING PROVIDER [id number] 10/03/2020 13:36 EDT CR Chest PA & LAT BRIAN MISTRY MEGGAN CPT code 78953 Reason For Exam (CR Chest PA & [...] ANTHONY Transcribed Date and Time: 10/03/2020 1:38 [facility] Work Phone: Raman, [facility] Incoming Radiology Results From [facility] - 10/03/2020 1:42 PM EDT Patient Name: AXEL SERRANO Diagnostic Radiology ACCESSION EXAM DATE/TIME PROCEDURE ORDERING PROVIDER [id number] 10/03/2020 13:36 EDT CR Chest PA & LAT BRIAN MISTRY MEGGAN CPT code 59746 Reason For Exam (CR Chest PA & [...] ANTHONY Transcribed Date and Time: 10/03/2020 1:38 [facility] Work Phone: [facility] Work Phone: Office Visiton 03-24-2017 Dietary management education, guidance, and counseling (procedure) yes Invalid Interpretation Code [facility] Work Phone: Documentation of current medications (procedure) Done Invalid Interpretation Code [facility] Work Phone: Fall risk assessment No Invalid Interpretation Code [facility] Work Phone: Replaced Document: Chivo Sibley CG Observationson 03-24-2017 EKG QRS axis -41 deg Invalid Interpretation Code [facility] Work Phone: Interpretation Sinus Bradycardia - occasional PAC # PACs = 1.-Left axis -anterior fascicular block. Voltage criteria for LVH (R(aVL) exceeds 1.26 mV). - Nonspecific T-abnormality. ABNORMAL Invalid Interpretation Code [employer] Work Phone: [phone] P [place] 35 deg Invalid Interpretation Code [employer] Work Phone: [phone] [place] Interval 180 ms Invalid Interpretation Code [employer] Work Phone: [phone] Pulse (Heart Rate) 58 /min Invalid Interpretation Code [employer] Work Phone: [phone] QRS Duration 116 ms Invalid Interpretation Code [employer] Work Phone: [phone] QT Interval new path ms Invalid Interpretation Code [employer] Work Phone: [phone] QTc Pascal 431 ms Invalid Interpretation Code [employer] Work Phone: [phone] T [place] 114 deg Invalid Interpretation Code [employer] Work Phone: [phone] Clinical Lists Update: Prelo early morning 03-23-2017 Left ventricular Ejection fraction 55 % Invalid Interpretation Code [employer] Work Phone: [phone] Tobacco use CPHS Former smoker Invalid Interpretation Code [employer] Work Phone: [phone] Office Visiton 02-16-2014 Documentation of current medications (procedure) Done Invalid Interpretation Code [employer] Work Phone: [phone] Smoking cessation education (procedure) yes Invalid Interpretation Code [employer] Work Phone: [phone] Microbiology: CUBFon 2 014 BFC NO GROWTH IN 14 DAYS Invalid Interpretation Code [employer] Work Phone: [phone] Vital Signs Date Time Vital Sign Value Performing Clinician Mauro hdez 01-03-2025 15:22-0400 Diastolic blood pressure 86 mm[Hg] Arsh Polk MD Work Phone: [facility] 01-03-2025 15:22-0400 Systolic blood pressure 126 mm[Hg] Arsh Polk MD Work Phone: [facility] 01-03-2025 14:04-0400 Body mass index (BMI) [Ratio] 37.45 kg/m2 Arsh Polk MD Work Phone: [facility] 01-03-2025 14:04-0400 Body weight 118.39 kg Arsh Polk MD Work Phone: [facility] 01-03-2025 14:04-0400 Heart rate 81 /min Arsh Polk MD Work Phone: [facility] 01-03-2025 14:04-0400 SaO2% (BldA) [Mass fraction] 97 % Arsh Polk MD Work Phone: [facility] 12-26-2024 09:48-0400 Body temperature 96.6 [degF] Yenny Bill Work Phone: [facility] 12-26-2024 09:48-0400 Diastolic blood pressure 50 mm[Hg] Yenny Bill Work Phone: [facility] 12-26-2024 09:48-0400 Heart rate 46 /min Yenny Bill Work Phone: [facility] 12-26-2024 09:48-0400 SaO2% (BldA) [Mass fraction] 95 % Yenny Bill Work Phone: [facility] 12-26-2024 09:48-0400 Systolic blood pressure 94 mm[Hg] Yenny Bill Work Phone: [facility] 11-28-2024 11:05-0400 Body temperature 97.81 [degF] Romina Suppan MANAGER SOFTWARE DEVELOPMENT[employer] Work Phone: [facility] 11-28-2024 11:05-0400 Diastolic blood pressure 64 mm[Hg] Romina Suppan MANAGER SOFTWARE DEVELOPMENT.[employer]RAW[employer] Work Phone: [facility] 11-28-2024 11:05-0400 Heart rate 65 /min Romina Suppan MANAGER SOFTWARE DEVELOPMENT.[employer] Work Phone: [facility] 11-28-2024 11:05-0400 SaO2% (BldA) [Mass fraction] 94 % Romina Suppan MANAGER SOFTWARE DEVELOPMENT.[employer] Work Phone: [facility] 11-28-2024 11:05-0400 Systolic blood pressure 136 mm[Hg] Romina Suppan MANAGER SOFTWARE DEVELOPMENT.[employer] Work Phone: [facility] 11-23-2024 13:28-0400 Diastolic blood pressure 67 mm[Hg] Yeyo Fegatelli MANAGER SOFTWARE DEVELOPMENT.[employer] Work Phone: [facility] 11-23-2024 13:28-0400 Heart rate 46 /min Yeyo Fegatelli MANAGER SOFTWARE DEVELOPMENT.[employer] Work Phone: [facility] 11-23-2024 13:28-0400 Respiratory rate 16 /min Yeyo Fegatelli MANAGER SOFTWARE DEVELOPMENT.[employer] Work Phone: [facility] 11-23-2024 13:28-0400 SaO2% (BldA) [Mass fraction] 97 % Yeyo Fegatelli MANAGER SOFTWARE DEVELOPMENT.[employer] Work Phone: [facility] 11-23-2024 13:28-0400 Systolic blood pressure 140 mm[Hg] Yeyo Fegatelli MANAGER SOFTWARE DEVELOPMENT.[employer] Work Phone: [facility] 11-14-2024 11:33-0400 Body height 182.[address] Arsh Polk MD Work Phone: [facility] 11-14-2024 11:33-0400 Body mass index (BMI) [Ratio] 37.3 kg/m2 Dr. Arsh Polk MD Work Phone: [facility] 11-14-2024 11:33-0400 Body weight 124.[address] Arsh Polk MD Work Phone: [facility] 11-14-2024 11:33-0400 Diastolic blood pressure 64 mm[Hg] Dr. Arsh Polk MD Work Phone: [facility] 11-14-2024 11:33-0400 Heart rate 50 /min Dr. Arsh Polk MD Work Phone: [facility] 11-14-2024 11:33-0400 Respiratory rate 18 /min Dr. Arsh Polk MD Work Phone: [facility] 11-14-2024 11:33-0400 Systolic blood pressure 135 mm[Hg] Dr. Arsh Polk MD Work Phone: [facility] 11-01-2024 08:28-0400 Body mass index (BMI) [Ratio] 39.46 kg/m2 Injection Wstr Work Phone: [facility] 11-01-2024 08:28-0400 Body temperature 98.6 [degF] Injection Wstr Work Phone: [facility] 11-01-2024 08:28-0400 Body weight 124.74 kg Injection Wstr Work Phone: [facility] 11-01-2024 08:28-0400 Diastolic blood pressure 75 mm[Hg] Injection Wstr Work Phone: [facility] 11-01-2024 08:28-0400 Heart rate 50 /min Injection Wstr Work Phone: [facility] 11-01-2024 08:28-0400 SaO2% (BldA) [Mass fraction] 98 % Injection Wstr Work Phone: [facility] 11-01-2024 08:28-0400 Systolic blood pressure 120 mm[Hg] Injection Wstr Work Phone: [facility] 10-20-2024 15:31-0400 Body mass index (BMI) [Ratio] 39.46 kg/m2 Arsh Otto Jr., MD Work Phone: [facility] 10-20-2024 15:31-0400 Body weight 124.74 kg Arsh Otto Jr., MD Work Phone: [facility] 10-20-2024 15:31-0400 Diastolic blood pressure 81 mm[Hg] Arsh Otto Jr., MD Work Phone: [facility] 10-20-2024 15:31-0400 Heart rate 61 /min Arsh Otto Jr., MD Work Phone: [facility] 10-20-2024 15:31-0400 Respiratory rate 16 /min Arsh Otto Jr., MD Work Phone: [facility] 10-20-2024 15:31-0400 SaO2% (BldA) [Mass fraction] 95 % Arsh Otto Jr., MD Work Phone: [facility] 10-20-2024 15:31-0400 Systolic blood pressure 138 mm[Hg] Arsh Otto Jr., MD Work Phone: [facility] 10-04-2024 09:39-0400 Body mass index (BMI) [Ratio] 39.1 kg/m2 Yennymarquez Bill Work Phone: [facility] 10-04-2024 09:39-0400 Body temperature 96.6 [degF] Yennymarquez Bill Work Phone: [facility] 10-04-2024 09:39-0400 Body weight 123.61 kg Yenny Bill Work Phone: [facility] 10-04-2024 09:39-0400 Diastolic blood pressure 74 mm[Hg] Yennymarquez Bill Work Phone: [facility] 10-04-2024 09:39-0400 Heart rate 55 /min Yenny Bill Work Phone: [facility] 10-04-2024 09:39-0400 SaO2% (BldA) [Mass fraction] 99 % Yenny Bill Work Phone: [facility] 10-04-2024 09:39-0400 Systolic blood pressure 139 mm[Hg] Yenny Bill Work Phone: [facility] 09-25-2024 10:40-0400 Body height 177.8 cm Arsh Polk MD Work Phone: [facility] 09-25-2024 10:40-0400 Body mass index (BMI) [Ratio] 39.92 kg/m2 Arsh Polk MD Work Phone: [facility] 09-25-2024 10:40-0400 Body weight 126.19 kg Arsh Polk MD Work Phone: [facility] 09-25-2024 10:40-0400 Diastolic blood pressure 60 mm[Hg] Arsh Polk MD Work Phone: [facility] 09-25-2024 10:40-0400 Heart rate 58 /min Arsh Polk MD Work Phone: [facility] 09-25-2024 10:40-0400 SaO2% (BldA) [Mass fraction] 97 % Arsh Polk MD Work Phone: [facility] 09-25-2024 10:40-0400 Systolic blood pressure 102 mm[Hg] Arsh Polk MD Work Phone: [facility] 09-03-2024 14:32-0400 Body temperature 97.6 [degF] Dr. Arsh Polk MD Work Phone: [facility] 09-03-2024 14:32-0400 Diastolic blood pressure 82 mm[Hg] Dr. Arsh Polk MD Work Phone: 2(781)[phone] [place] [address] 09-03-2024 14:32-0400 Heart rate 60 /min Dr. Arsh Polk MD Work Phone: 0(289)[phone] [place] [address] 09-03-2024 14:32-0400 Respiratory rate 18 /min Dr. Arsh Polk MD Work Phone: 3(662)[phone] [place] [address] 09-03-2024 14:32-0400 SaO2% (BldA) [Mass fraction] 98 % Dr. Arsh Polk MD Work Phone: [facility] 09-03-2024 14:32-0400 Systolic blood pressure 184 mm[Hg] Dr. Arsh Polk MD Work Phone: 9(734)021-239230 [place] [address] 09-03-2024 10:44-0400 Body mass index (BMI) [Ratio] 38.8 kg/m2 Dr. Arsh Polk MD Work Phone: 9(907)992-255230 [place] [address] 09-03-2024 10:44-0400 Body weight [address] Arsh Polk MD Work Phone: 8(966)[phone] [place] [address] 08-09-2024 08:32-0400 Body mass index (BMI) [Ratio] 38 kg/m2 Dr. Arsh Polk MD Work Phone: 4(255)101-634830 [place] [address] 08-09-2024 08:32-0400 Body weight [address] Arsh Polk MD Work Phone: [facility] 08-09-2024 08:32-0400 Diastolic blood pressure 72 mm[Hg] Dr. Arsh Polk MD Work Phone: [facility] 08-09-2024 08:32-0400 Heart rate 58 /min Dr. Arsh Polk MD Work Phone: 1(697)[phone] [place] [address] 08-09-2024 08:32-0400 Respiratory rate 18 /min Dr. Arsh Polk MD Work Phone: 8(955)[phone] [place] [address] 08-09-2024 08:32-0400 SaO2% (BldA) [Mass fraction] 97 % Dr. Arsh Polk MD Work Phone: 8(393)[phone] [place] [address] 08-09-2024 08:32-0400 Systolic blood pressure 143 mm[Hg] Dr. Arsh Polk MD Work Phone: [facility] 07-10-2024 10:15-0500 Body mass index (BMI) [Ratio] 40.18 kg/m2 Yenny Biggsight Work Phone: [facility] 07-10-2024 10:15-0500 Body temperature 97.81 [degF] Yenny Bill Work Phone: [facility] 07-10-2024 10:15-0500 Body weight 127.01 kg Yenny Bill Work Phone: [facility] 07-10-2024 10:15-0500 Diastolic blood pressure 64 mm[Hg] Yenny Bill Work Phone: [facility] 07-10-2024 10:15-0500 Heart rate 55 /min Yennymarquez Bill Work Phone: [facility] 07-10-2024 10:15-0500 SaO2% (BldA) [Mass fraction] 98 % Yenny Bill Work Phone: [facility] 07-10-2024 10:15-0500 Systolic blood pressure 164 mm[Hg] Yenny Bill Work Phone: [facility] 06-01-2024 15:04-0500 Body temperature 97.59 [degF] Romina Suppan MANAGER SOFTWARE DEVELOPMENT.PROP DRAWER Work Phone: [facility] 06-01-2024 15:04-0500 Diastolic blood pressure 62 mm[Hg] Romina Suppan MANAGER SOFTWARE DEVELOPMENT.PROP DRAWER Work Phone: [facility] 06-01-2024 15:04-0500 Heart rate 57 /min Romina Suppan MANAGER SOFTWARE DEVELOPMENT.PROP DRAWER Work Phone: [facility] 06-01-2024 15:04-0500 SaO2% (BldA) [Mass fraction] 97 % Romina Suppan MANAGER SOFTWARE DEVELOPMENT.PROP DRAWER Work Phone: [facility] 06-01-2024 15:04-0500 Systolic blood pressure 115 mm[Hg] Romina Suppan MANAGER SOFTWARE DEVELOPMENT.PROP DRAWER Work Phone: [facility] 05-29-2024 10:14-0500 Body mass index (BMI) [Ratio] 39.6 kg/m2 Yenny Bill Work Phone: [facility] 05-29-2024 10:14-0500 Body temperature 97.39 [degF] Yenny Bill Work Phone: [facility] 05-29-2024 10:14-0500 Body weight 125.19 kg Yenny Bill Work Phone: [facility] 05-29-2024 10:14-0500 Diastolic blood pressure 78 mm[Hg] Yenny Bill Work Phone: [facility] 05-29-2024 10:14-0500 Heart rate 67 /min Eynny Bill Work Phone: [facility] 05-29-2024 10:14-0500 SaO2% (BldA) [Mass fraction] 97 % Yenny Bill Work Phone: [facility] 05-29-2024 10:14-0500 Systolic blood pressure 125 mm[Hg] Yenny Bill Work Phone: [facility] 04-17-2024 14:37-0500 Body mass index (BMI) [Ratio] 40.75 kg/m2 Injection Wstr Work Phone: [facility] 04-17-2024 14:37-0500 Body temperature 96.3 [degF] Injection Wstr Work Phone: [facility] 04-17-2024 14:37-0500 Body weight 128.82 kg Injection Wstr Work Phone: [facility] 04-17-2024 14:37-0500 Diastolic blood pressure 52 mm[Hg] Injection Wstr Work Phone: [facility] 04-17-2024 14:37-0500 Heart rate 49 /min Injection Wstr Work Phone: [facility] 04-17-2024 14:37-0500 SaO2% (BldA) [Mass fraction] 98 % Injection Wstr Work Phone: [facility] 04-17-2024 14:37-0500 Systolic blood pressure 120 mm[Hg] Injection Wstr Work Phone: [facility] 04-03-2024 10:22-0500 Body temperature 96.4 [degF] Yenny Bill Work Phone: [facility] 04-03-2024 10:22-0500 Diastolic blood pressure 79 mm[Hg] Yenny Bill Work Phone: [facility] 04-03-2024 10:22-0500 Heart rate 67 /min Yenny Bill Work Phone: [facility] 04-03-2024 10:22-0500 SaO2% (BldA) [Mass fraction] 98 % Yenny Bill Work Phone: [facility] 04-03-2024 10:22-0500 Systolic blood pressure 145 mm[Hg] Yenny Bill Work Phone: [facility] 03-27-2024 13:06-0500 Body mass index (BMI) [Ratio] 40.75 kg/m2 Arsh Otto Jr., MD Work Phone: [facility] 03-27-2024 13:06-0500 Body weight 128.82 kg Arsh Otto Jr., MD Work Phone: [facility] 03-27-2024 13:06-0500 Diastolic blood pressure 72 mm[Hg] Arsh Otto Jr., MD Work Phone: [facility] 03-27-2024 13:06-0500 Heart rate 72 /min Arsh Otto Jr., MD Work Phone: [facility] 03-27-2024 13:06-0500 SaO2% (BldA) [Mass fraction] 98 % Arsh Otto Jr., MD Work Phone: [facility] 03-27-2024 13:06-0500 Systolic blood pressure 108 mm[Hg] Arsh Otto Jr., MD Work Phone: [facility] 03-27-2024 09:47-0500 Body height 177.8 cm Arsh Polk MD Work Phone: [facility] 03-27-2024 09:47-0500 Body mass index (BMI) [Ratio] 40.75 kg/m2 Arsh Polk MD Work Phone: [facility] 03-27-2024 09:47-0500 Body weight 128.82 kg Arsh Polk MD Work Phone: [facility] 03-27-2024 09:47-0500 Diastolic blood pressure 62 mm[Hg] Arsh Polk MD Work Phone: [facility] 03-27-2024 09:47-0500 Heart rate 72 /min Arsh Polk MD Work Phone: [facility] 03-27-2024 09:47-0500 SaO2% (BldA) [Mass fraction] 95 % Arsh Polk MD Work Phone: [facility] 03-27-2024 09:47-0500 Systolic blood pressure 94 mm[Hg] Arsh Polk MD Work Phone: [facility] 03-06-2024 [id number] Body mass index (BMI) [Ratio] 43.6 kg/m2 Yenny Bill Work Phone: [facility] 03-06-2024 11:10040 Body temperature 96.69 [degF] Yenny Fly Work Phone: [facility] 03-06-2024 11:10040 Body weight 139.71 kg Yennymarquez Bill Work Phone: [facility] 03-06-2024 11:10040 Diastolic blood pressure 91 mm[Hg] Yenny Fly Work Phone: [facility] 03-06-2024 11:10040 Heart rate 65 /min Yenny Fly Work Phone: [facility] 03-06-2024 11:[id number] SaO2% (BldA) [Mass fraction] 99 % Yenny Bill Work Phone: [facility] 03-06-2024 11:10040 Systolic blood pressure 146 mm[Hg] Yenny Bill Work Phone: [facility] 02-07-2024 11:[id number] Body mass index (BMI) [Ratio] 41.76 kg/m2 Injection Wstr Work Phone: [facility] 02-07-2024 11:040 Body temperature 96.91 [degF] Injection Wstr Work Phone: [facility] 02-07-2024 11:[id number] Body weight 133.81 kg Injection Wstr Work Phone: [facility] 02-07-2024 11:[id number] Diastolic blood pressure 64 mm[Hg] Injection Wstr Work Phone: [facility] 02-07-2024 11:19040 Heart rate 61 /min Injection Wstr Work Phone: [facility] 02-07-2024 11:19040 SaO2% (BldA) [Mass fraction] 96 % Injection Wstr Work Phone: [facility] 02-07-2024 11:19-0400 Systolic blood pressure 158 mm[Hg] Injection Wstr Work Phone: [facility] 02-02-2024 15:42-0400 Body mass index (BMI) [Ratio] 42.32 kg/m2 Arsh Polk MD Work Phone: [facility] 02-02-2024 15:42-0400 Body weight 135.6 kg Arsh Polk MD Work Phone: [facility] 02-02-2024 15:42-0400 Diastolic blood pressure 58 mm[Hg] Arsh Polk MD Work Phone: [facility] 02-02-2024 15:42-0400 Heart rate 55 /min Arsh Polk MD Work Phone: [facility] 02-02-2024 15:42-0400 SaO2% (BldA) [Mass fraction] 95 % Arsh Polk MD Work Phone: [facility] 02-02-2024 15:42-0400 Systolic blood pressure 110 mm[Hg] Arsh Polk MD Work Phone: [facility] 01-26-2024 12:18-0400 Body mass index (BMI) [Ratio] 42.45 kg/m2 Gabriel Butler MANAGER SOFTWARE DEVELOPMENT.PROP DRAWER Work Phone: [facility] 01-26-2024 12:18-0400 Body temperature 97.81 [degF] Gabriel uBtler MANAGER SOFTWARE DEVELOPMENT.PROP DRAWER Work Phone: [facility] 01-26-2024 12:18-0400 Body weight 136 kg Gabriel Butler MANAGER SOFTWARE DEVELOPMENT.PROP DRAWER Work Phone: [facility] 01-26-2024 12:18-0400 Diastolic blood pressure 82 mm[Hg] Gabriel Butler MANAGER SOFTWARE DEVELOPMENT.PROP DRAWER Work Phone: [facility] 01-26-2024 12:18-0400 Heart rate 61 /min Gabriel Butler MANAGER SOFTWARE DEVELOPMENT.PROP DRAWER Work Phone: [facility] 01-26-2024 12:18-0400 Respiratory rate 16 /min Gabriel Butler MANAGER SOFTWARE DEVELOPMENT.PROP DRAWER Work Phone: [facility] 01-26-2024 12:18-0400 SaO2% (BldA) [Mass fraction] 98 % Gabriel Butler MANAGER SOFTWARE DEVELOPMENT.PROP DRAWER Work Phone: [facility] 01-26-2024 12:18-0400 Systolic blood pressure 132 mm[Hg] Gabriel Butler MANAGER SOFTWARE DEVELOPMENT.PROP DRAWER Work Phone: [facility] 01-19-2024 08:57-0400 Body mass index (BMI) [Ratio] 42.05 kg/m2 Yenny Bill Work Phone: [facility] 01-19-2024 08:57-0400 Body temperature 97.11 [degF] Yenny Bill Work Phone: [facility] 01-19-2024 08:57-0400 Body weight 134.72 kg Yenny Bill Work Phone: [facility] 01-19-2024 08:57-0400 Diastolic blood pressure 76 mm[Hg] Yenny Bill Work Phone: [facility] 01-19-2024 08:57-0400 Heart rate 59 /min Yenny Bill Work Phone: [facility] 01-19-2024 08:57-0400 SaO2% (BldA) [Mass fraction] 97 % Yenny Bill Work Phone: [facility] 01-19-2024 08:57-0400 Systolic blood pressure 145 mm[Hg] Yenny Bill Work Phone: [facility] 12-29-2023 15:17-0400 Body mass index (BMI) [Ratio] 43.89 kg/m2 Kaylee CONNOR-C Work Phone: [facility] 12-29-2023 15:17-0400 Body weight 140.62 kg Kaylee Herrmann PA-C Work Phone: [facility] 12-29-2023 15:17-0400 Diastolic blood pressure 88 mm[Hg] Kaylee Foxer PA-C Work Phone: [facility] 12-29-2023 15:17-0400 Heart rate 53 /min Kaylee Foxer PA-C Work Phone: [facility] 12-29-2023 15:17-0400 Respiratory rate 16 /min Kaylee Foxer PA-C Work Phone: [facility] 12-29-2023 15:17-0400 SaO2% (BldA) [Mass fraction] 97 % Kaylee Foxer PA-C Work Phone: [facility] 12-29-2023 15:17-0400 Systolic blood pressure 163 mm[Hg] Kaylee Foxer PA-C Work Phone: [facility] 12-22-2023 09:52-0400 Body temperature 97.7 [degF] Treatment Wstr Work Phone: [facility] 12-22-2023 09:52-0400 Diastolic blood pressure 79 mm[Hg] Treatment Wstr Work Phone: [facility] 12-22-2023 09:52-0400 Heart rate 54 /min Treatment Wstr Work Phone: [facility] 12-22-2023 09:52-0400 SaO2% (BldA) [Mass fraction] 95 % Treatment Wstr Work Phone: [facility] 12-22-2023 09:52-0400 Systolic blood pressure 145 mm[Hg] Treatment Wstr Work Phone: [facility] 12-20-2023 08:45-0400 Body temperature 97.2 [degF] Treatment Wstr Work Phone: [facility] 12-20-2023 08:45-0400 Diastolic blood pressure 74 mm[Hg] Treatment Wstr Work Phone: [facility] 12-20-2023 08:45-0400 Heart rate 56 /min Treatment Wstr Work Phone: [facility] 12-20-2023 08:45-0400 Respiratory rate 16 /min Treatment Wstr Work Phone: [facility] 12-20-2023 08:45-0400 SaO2% (BldA) [Mass fraction] 97 % Treatment Wstr Work Phone: [facility] 12-20-2023 08:45-0400 Systolic blood pressure 160 mm[Hg] Treatment Wstr Work Phone: [facility] 12-17-2023 10:47-0400 Body temperature 97 [degF] Treatment Wstr Work Phone: [facility] 12-17-2023 10:47-0400 Diastolic blood pressure 72 mm[Hg] Treatment Wstr Work Phone: [facility] 12-17-2023 10:47-0400 Heart rate 55 /min Treatment Wstr Work Phone: [facility] 12-17-2023 10:47-0400 SaO2% (BldA) [Mass fraction] 95 % Treatment Wstr Work Phone: [facility] 12-17-2023 10:47-0400 Systolic blood pressure 121 mm[Hg] Treatment Wstr Work Phone: [facility] 12-15-2023 09:36-0400 Body temperature 96.8 [degF] Treatment Wstr Work Phone: [facility] 12-15-2023 09:36-0400 Diastolic blood pressure 85 mm[Hg] Treatment Wstr Work Phone: [facility] 12-15-2023 09:36-0400 Heart rate 55 /min Treatment Wstr Work Phone: [facility] 12-15-2023 09:36-0400 Respiratory rate 18 /min Treatment Wstr Work Phone: [facility] 12-15-2023 09:36-0400 Systolic blood pressure 155 mm[Hg] Treatment Wstr Work Phone: [facility] 12-13-2023 10:50-0400 Body temperature 98.2 [degF] Treatment Wstr Work Phone: [facility] 12-13-2023 10:50-0400 Diastolic blood pressure 82 mm[Hg] Treatment Wstr Work Phone: [facility] 12-13-2023 10:50-0400 Heart rate 58 /min Treatment Wstr Work Phone: [facility] 12-13-2023 10:50-0400 SaO2% (BldA) [Mass fraction] 94 % Treatment Wstr Work Phone: [facility] 12-13-2023 10:50-0400 Systolic blood pressure 149 mm[Hg] Treatment Wstr Work Phone: [facility] 11-29-2023 10:31-0400 Body height 179 cm Yenny Bill Work Phone: [facility] 11-29-2023 10:31-0400 Body mass index (BMI) [Ratio] 43.89 kg/m2 Yenny Bill Work Phone: [facility] 11-29-2023 10:31-0400 Body temperature 97.39 [degF] Yenny Bill Work Phone: [facility] 11-29-2023 10:31-0400 Body weight 140.62 kg Yenny Bill Work Phone: [facility] 11-29-2023 10:31-0400 Diastolic blood pressure 67 mm[Hg] Yenny Bill Work Phone: [facility] 11-29-2023 10:31-0400 Heart rate 59 /min Yenny Bill Work Phone: [facility] 11-29-2023 10:31-0400 SaO2% (BldA) [Mass fraction] 97 % Yenny Bill Work Phone: [facility] 11-29-2023 10:31-0400 Systolic blood pressure 141 mm[Hg] Yenny Bill Work Phone: [facility] 11-08-2023 10:24-0400 Body mass index (BMI) [Ratio] 42.47 kg/m2 Marlen Kaitlin MANAGER SOFTWARE DEVELOPMENT.PROP DRAWER Work Phone: [facility] 11-08-2023 10:24-0400 Body weight 134.26 kg Marlen Kaitlin MANAGER SOFTWARE DEVELOPMENT.PROP DRAWER Work Phone: [facility] 11-08-2023 10:24-0400 Diastolic blood pressure 75 mm[Hg] Marlen Kaitlin MANAGER SOFTWARE DEVELOPMENT.PROP DRAWER Work Phone: [facility] 11-08-2023 10:24-0400 Heart rate 61 /min Marlen Kaitlin MANAGER SOFTWARE DEVELOPMENT.PROP DRAWER Work Phone: [facility] 11-08-2023 10:24-0400 Respiratory rate 18 /min Marlen Kaitlin MANAGER SOFTWARE DEVELOPMENT.PROP DRAWER Work Phone: [facility] 11-08-2023 10:24-0400 SaO2% (BldA) [Mass fraction] 97 % Marlen Kaitlin MANAGER SOFTWARE DEVELOPMENT.PROP DRAWER Work Phone: [facility] 11-08-2023 10:24-0400 Systolic blood pressure 158 mm[Hg] Marlen Kaitlin MANAGER SOFTWARE DEVELOPMENT.PROP DRAWER Work Phone: [facility] 09-17-2023 10:58-0400 Body height 177.8 cm Arsh Polk MD Work Phone: [facility] 09-17-2023 10:58-0400 Body mass index (BMI) [Ratio] 42.47 kg/m2 Arsh Polk MD Work Phone: [facility] 09-17-2023 10:58-0400 Body weight 134.26 kg Arsh Polk MD Work Phone: [facility] 09-17-2023 10:58-0400 Diastolic blood pressure 78 mm[Hg] Arsh Polk MD Work Phone: [facility] 09-17-2023 10:58-0400 Heart rate 54 /min Arsh Polk MD Work Phone: [facility] 09-17-2023 10:58-0400 SaO2% (BldA) [Mass fraction] 97 % Arsh Polk MD Work Phone: [facility] 09-17-2023 10:58-0400 Systolic blood pressure 126 mm[Hg] Arsh Polk MD Work Phone: [facility] 09-06-2023 15:17-0400 Diastolic blood pressure 64 mm[Hg] Arsh Otto Jr., MD Work Phone: [facility] 09-06-2023 15:17-0400 Heart rate 58 /min Arsh Otto Jr., MD Work Phone: [facility] 09-06-2023 15:17-0400 Respiratory rate 16 /min Arsh Otto Jr., MD Work Phone: [facility] 09-06-2023 15:17-0400 SaO2% (BldA) [Mass fraction] 94 % Arsh Otto Jr., MD Work Phone: [facility] 09-06-2023 15:17-0400 Systolic blood pressure 128 mm[Hg] Arsh Otto Jr., MD Work Phone: [facility] 06-18-2023 10:32-0500 Body height 177.8 cm Arsh Polk MD Work Phone: [facility] 06-18-2023 10:32-0500 Body weight 135.63 kg Arsh Polk MD Work Phone: [facility] 06-18-2023 10:32-0500 Diastolic blood pressure 61 mm[Hg] Arsh Polk MD Work Phone: [facility] 06-18-2023 10:32-0500 Heart rate 51 /min Arsh Polk MD Work Phone: [facility] 06-18-2023 10:32-0500 SaO2% (BldA) [Mass fraction] 95 % Arsh Polk MD Work Phone: [facility] 06-18-2023 10:32-0500 Systolic blood pressure 136 mm[Hg] Arsh Polk MD Work Phone: [facility] 01-26-2023 13:290400 Body weight 127.01 kg Kaylee Foxer PA-C Work Phone: [facility] 01-26-2023 13:29-0400 Diastolic blood pressure 74 mm[Hg] Kaylee Foxer PA-C Work Phone: [facility] 01-26-2023 13:29-0400 Heart rate 56 /min Kaylee Foxer PA-C Work Phone: [facility] 01-26-2023 13:29-0400 Respiratory rate 16 /min Kaylee Foxer PA-C Work Phone: [facility] 01-26-2023 13:290400 SaO2% (BldA) [Mass fraction] 95 % Kaylee Foxer PA-C Work Phone: [facility] 01-26-2023 13:29-0400 Systolic blood pressure 122 mm[Hg] Kaylee Foxer PA-C Work Phone: [facility] 11-26-2022 10:36-0400 Body weight 136.08 kg Arsh Polk MD Work Phone: [facility] 11-26-2022 10:36-0400 Diastolic blood pressure 68 mm[Hg] Arsh Polk MD Work Phone: [facility] 11-26-2022 10:36-0400 Heart rate 87 /min Arsh Polk MD Work Phone: [facility] 11-26-2022 10:36-0400 SaO2% (BldA) [Mass fraction] 96 % Arsh Polk MD Work Phone: [facility] 11-26-2022 10:36-0400 Systolic blood pressure 128 mm[Hg] Arsh Polk MD Work Phone: [facility] 11-23-2022 14:11-0400 Body temperature 97.9 [degF] Arsh Otto Jr., MD Work Phone: [facility] 11-23-2022 14:11-0400 Body weight 132.45 kg Arsh Otto Jr., MD Work Phone: [facility] 11-23-2022 14:11-0400 Diastolic blood pressure 64 mm[Hg] Arsh Otto Jr., MD Work Phone: [facility] 11-23-2022 14:11-0400 Heart rate 60 /min Arsh Otto Jr., MD Work Phone: [facility] 11-23-2022 14:11-0400 Respiratory rate 16 /min Arsh Otto Jr., MD Work Phone: [facility] 11-23-2022 14:11-0400 SaO2% (BldA) [Mass fraction] 95 % Arsh Otto Jr., MD Work Phone: [facility] 11-23-2022 14:11-0400 Systolic blood pressure 126 mm[Hg] Arsh Otto Jr., MD Work Phone: [facility] 07-09-2022 13:13-0500 Body temperature 97.9 [degF] Krislyn Aberegg PA Work Phone: [facility] 07-09-2022 13:13-0500 Diastolic blood pressure 72 mm[Hg] Krislyn Aberegg PA Work Phone: [facility] 07-09-2022 13:13-0500 Heart rate 60 /min Krislyn Aberegg PA Work Phone: [facility] 07-09-2022 13:13-0500 Respiratory rate 16 /min Krislyn Aberegg PA Work Phone: [facility] 07-09-2022 13:13-0500 SaO2% (BldA) [Mass fraction] 95 % Krislyn Aberegg PA Work Phone: [facility] 07-09-2022 13:13-0500 Systolic blood pressure 126 mm[Hg] Krislyn Aberegg PA Work Phone: [facility] 05-29-2022 10:03-0500 Body weight 135.17 kg Arsh Polk MD Work Phone: [facility] 05-29-2022 10:03-0500 Diastolic blood pressure 72 mm[Hg] Arsh Polk MD Work Phone: [facility] 05-29-2022 10:03-0500 Heart rate 84 /min Arsh Polk MD Work Phone: [facility] 05-29-2022 10:03-0500 Systolic blood pressure 122 mm[Hg] Arsh Polk MD Work Phone: [facility] 02-20-2022 10:28-0400 Body height 182.[address] Arsh Polk Work Phone: [facility] Work Phone: 02-20-2022 10:28-0400 Body mass index (BMI) [Ratio] 40.1 kg/m2 Dr. Arsh Polk Work Phone: [facility] Work Phone: 02-20-2022 10:28-0400 Body weight 134.[address] Arsh Polk Work Phone: [facility] Work Phone: 02-20-2022 10:28-0400 Diastolic blood pressure 55 mm[Hg] Dr. Arsh Polk Work Phone: [facility] Work Phone: 02-20-2022 10:28-0400 Heart rate 58 /min Dr. Arsh Polk Work Phone: [facility] Work Phone: 02-20-2022 10:28-0400 Respiratory rate 16 /min Dr. Arsh Polk Work Phone: [facility] Work Phone: 02-20-2022 10:28-0400 Systolic blood pressure 142 mm[Hg] Dr. Arsh Polk Work Phone: [facility] Work Phone: 01-21-2022 11:23-0400 Diastolic blood pressure 60 mm[Hg] Arsh Polk MD Work Phone: [facility] 01-21-2022 11:23-0400 Systolic blood pressure 108 mm[Hg] Arsh Polk MD Work Phone: [facility] 01-21-2022 11:00-0400 Body height 177.8 cm Arsh Polk MD Work Phone: [facility] 01-21-2022 11:00-0400 Body weight 135.63 kg Arsh Polk MD Work Phone: [facility] 01-21-2022 11:00-0400 Heart rate 55 /min Arsh Polk MD Work Phone: [facility] 01-21-2022 11:00-0400 SaO2% (BldA) [Mass fraction] 99 % Arsh Polk MD Work Phone: [facility] 12-16-2021 09:31-0400 Body mass index (BMI) [Ratio] 40.2 kg/m2 Dr. Arsh Polk Work Phone: [facility] Work Phone: 12-16-2021 09:31-0400 Body weight 134.[address] Arsh Polk Work Phone: [facility] Work Phone: 12-16-2021 09:31-0400 Diastolic blood pressure 70 mm[Hg] Dr. Arsh Polk Work Phone: [facility] Work Phone: 12-16-2021 09:31-0400 Heart rate 61 /min Dr. Arsh Polk Work Phone: [facility] Work Phone: 12-16-2021 09:31-0400 SaO2% (BldA) [Mass fraction] 64 % Dr. Arsh Polk Work Phone: [facility] Work Phone: 12-16-2021 09:31-0400 Systolic blood pressure 118 mm[Hg] Dr. Arsh Polk Work Phone: [facility] Work Phone: 12-10-2021 11:02-0400 Body weight 135.63 kg Arsh Polk MD Work Phone: [facility] 12-10-2021 11:02-0400 Diastolic blood pressure 80 mm[Hg] Arsh Polk MD Work Phone: [facility] 12-10-2021 11:02-0400 Heart rate 76 /min Arsh Polk MD Work Phone: [facility] 12-10-2021 11:02-0400 Respiratory rate 16 /min Arsh Polk MD Work Phone: [facility] 12-10-2021 11:02-0400 SaO2% (BldA) [Mass fraction] 98 % Arsh Polk MD Work Phone: [facility] 12-10-2021 11:02-0400 Systolic blood pressure 138 mm[Hg] Arsh Polk MD Work Phone: [facility] 11-12-2021 12:30-0400 Body temperature 96.8 [degF] Dr. Arsh Polk Work Phone: [facility] Work Phone: 11-12-2021 12:30-0400 Diastolic blood pressure 78 mm[Hg] Dr. Arsh Polk Work Phone: [facility] Work Phone: 11-12-2021 12:30-0400 Heart rate 67 /min Dr. Arsh Polk Work Phone: [facility] Work Phone: 11-12-2021 12:30-0400 Respiratory rate 16 /min Dr. Arsh Polk Work Phone: [facility] Work Phone: 11-12-2021 12:30-0400 SaO2% (BldA) [Mass fraction] 94 % Dr. Arsh Polk Work Phone: [facility] Work Phone: 11-12-2021 12:30-0400 Systolic blood pressure 122 mm[Hg] Dr. Arsh Polk Work Phone: [facility] Work Phone: 11-12-2021 10:26-0400 Body height 182.[address] Arsh Polk Work Phone: [facility] Work Phone: 11-12-2021 10:26-0400 Body mass index (BMI) [Ratio] 40 kg/m2 Dr. Arsh Polk Work Phone: [facility] Work Phone: 11-12-2021 10:26-0400 Body weight [address] Arsh Polk Work Phone: [facility] Work Phone: 11-07-2021 10:10-0400 Body weight 136.99 kg Arsh Polk MD Work Phone: [facility] 11-07-2021 10:10-0400 Diastolic blood pressure 62 mm[Hg] Arsh Polk MD Work Phone: [facility] 11-07-2021 10:10-0400 Heart rate 70 /min Arsh Polk MD Work Phone: [facility] 11-07-2021 10:10-0400 SaO2% (BldA) [Mass fraction] 96 % Arsh Polk MD Work Phone: [facility] 11-07-2021 10:10-0400 Systolic blood pressure 120 mm[Hg] Arsh Polk MD Work Phone: [facility] 10-28-2021 11:010400 Body height 177.8 cm Darnell Mackey PA-C Work Phone: [facility] 10-28-2021 11:01040 Body temperature 97.2 [degF] Darnell Mackey PA-C Work Phone: [facility] 10-28-2021 11:010400 Body weight 136.99 kg Darnell Mackey PA-C Work Phone: [facility] 10-28-2021 11:01-0400 Diastolic blood pressure 82 mm[Hg] Darnell Mackey PA-C Work Phone: [facility] 10-28-2021 11:01-0400 Heart rate 66 /min Darnell Mackey PA-C Work Phone: [facility] 10-28-2021 11:01-0400 Respiratory rate 14 /min Darnell Mackey PA-C Work Phone: [facility] 10-28-2021 11:01-0400 SaO2% (BldA) [Mass fraction] 98 % Darnell Mackey PA-C Work Phone: [facility] 10-28-2021 11:01-0400 Systolic blood pressure 118 mm[Hg] Darnell Mackey PA-C Work Phone: [facility] 10-16-2021 10:32-0400 Body mass index (BMI) [Ratio] 41.6 kg/m2 Dr. Arsh Polk Work Phone: [facility] Work Phone: 10-16-2021 10:32-0400 Body weight 139.[address] Arsh Polk Work Phone: [facility] Work Phone: 10-16-2021 10:32-0400 Diastolic blood pressure 65 mm[Hg] Dr. Arsh Polk Work Phone: [facility] Work Phone: 10-16-2021 10:32-0400 Heart rate 56 /min Dr. Arsh Polk Work Phone: [facility] Work Phone: 10-16-2021 10:32-0400 Respiratory rate 20 /min Dr. Arsh Polk Work Phone: [facility] Work Phone: 10-16-2021 10:32-0400 SaO2% (BldA) [Mass fraction] 98 % Dr. Arsh Polk Work Phone: [facility] Work Phone: 10-16-2021 10:32-0400 Systolic blood pressure 149 mm[Hg] Dr. Arsh Polk Work Phone: [facility] Work Phone: 10-16-2021 10:32-0400 Body height 182.[address] Arsh Polk Work Phone: [facility] Work Phone: 10-16-2021 10:32-0400 Body mass index (BMI) [Ratio] 41.6 kg/m2 Dr. Arsh Polk Work Phone: [facility] Work Phone: 10-16-2021 10:32-0400 Body weight 139.[address] Arsh Polk Work Phone: [facility] Work Phone: 10-16-2021 10:32-0400 Diastolic blood pressure 65 mm[Hg] Dr. Arsh Polk Work Phone: [facility] Work Phone: 10-16-2021 10:32-0400 Heart rate 56 /min Dr. Arsh Polk Work Phone: [facility] Work Phone: 10-16-2021 10:32-0400 Respiratory rate 20 /min Dr. Arsh Polk Work Phone: [facility] Work Phone: 10-16-2021 10:32-0400 SaO2% (BldA) [Mass fraction] 98 % Dr. Arsh Polk Work Phone: [facility] Work Phone: 10-16-2021 10:32-0400 Systolic blood pressure 149 mm[Hg] Dr. Arsh Polk Work Phone: [facility] Work Phone: 10-17-2020 14:00-0400 Heart rate 82 /min Reinier Shore MD Work Phone: [facility] Work Phone: 10-17-2020 12:30-0400 Body temperature 97.7 [degF] Reinier Shore MD Work Phone: [facility] Work Phone: 10-17-2020 12:30-0400 Diastolic blood pressure 73 mm[Hg] Reinier Shore MD Work Phone: [facility] Work Phone: 10-17-2020 12:30-0400 Respiratory rate 20 /min Reinier Shore MD Work Phone: [facility] Work Phone: 10-17-2020 12:30-0400 SaO2% (BldA) [Mass fraction] 97 % Reinier Shore MD Work Phone: [facility] Work Phone: 10-17-2020 12:30-0400 Systolic blood pressure 124 mm[Hg] Reinier Shore MD Work Phone: [facility] Work Phone: 10-17-2020 05:37-0400 Body mass index (BMI) [Ratio] 39.78 kg/m2 Reinier Shore MD Work Phone: [facility] Work Phone: 10-17-2020 05:37-0400 Body weight 127.55 kg Reinier Shore MD Work Phone: [employer] Work Phone: Comment on above: standing scale 10-16-2020 09:30-0400 Body height 179.1 cm Reinier Shore MD Work Phone: [facility] Work Phone: 03-24-2017 10:18-0500 BMI (Body Mass Index) 41.23 kg/m2 Manuela Romero [facility] Work Phone: 03-24-2017 10:18-0500 BP Diastolic 70 mm[Hg] [facility] Work Phone: 03-24-2017 10:18-0500 BP Systolic 142 mm[Hg] Manuela [facility] Work Phone: 03-24-2017 10:18-0500 Height 182.88 cm Manuela Cain [employer] Work Phone: 03-24-2017 10:18-0500 Pulse (Heart Rate) 60 /min Manuela Cain [facility] Work Phone: 03-24-2017 10:18-0500 Respiratory Rate 18 /min Manuela Cain [facility] Work Phone: 03-24-2017 10:18-0500 Weight 137.89 kg Manuela [employer] Work Phone: 01-09-2014 13:32-0400 BP Diastolic 71 mm[Hg] Macey Greco RN [employer] Work Phone: 01-09-2014 13:32-0400 BP Systolic 111 mm[Hg] Macey Greco RN [employer] Work Phone: 01-09-2014 13:32-0400 Height 182.88 cm Macey Greco RN [employer] Work Phone: Encounters Encounter Date Encounter Type Care Provider Facility Start: 03-20-2025 Evaluation and management of inpatient [address] Facility:[facility] Start: 03-20-[address] Facility :[facility] Start: 03-07-2025 End: 03-07-2025 ambulatory Nakia Laboy Facility:[facility] Start: 02-26-2025 End: 02-26-2025 ambulatory ARSH POLK Facility:[facility] Start: 01-30-2025 End: 01-30-2025 ambulatory ARSH POLK Facility:[facility] Start: 01-24-2025 End: 01-24-2025 ambulatory ARSH POLK Facility:[facility] Start: 01-15-2025 End: 01-15-2025 ambulatory Romina Flynn MANAGER SOFTWARE DEVELOPMENT.PROP DRAWER Work Phone: [facility] Comment on above: Medical eqipment Start: 01-12-2025 End: 01-12-2025 Refill Arsh Otto MD Work Phone: Neurology Comment on above: Refill Request Start: 01-03-2025 End: 01-03-2025 ambulatory ARSH POLK Facility:[facility] Start: 01-03-2025 End: 01-03-2025 Patient encounter procedure Arsh Polk MD Work Phone: [facility] Comment on above: Medicare annual well [...] diabetes mellitus (HCC); 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; Essential hypertension, benign; [...] Phone: [facility] Comment on above: Patient Update; Home Health Point of Care Results Start: 12-26-2024 End: 12-26-2024 Patient encounter procedure Yenny Bill Work Phone: Hematology/Oncology Start: 12-26-2024 End: 12-26-2024 ambulatory Injection Keith [facility] Work Phone: Hematology/Oncology Comment on above: 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) (Primary Dx) Start: 12-19-2024 End: 12-20-2024 Telephone encounter Arsh Polk MD Work Phone: Family [facility] [place] Comment on above: POC Start: 12-12-2024 End: 12-12-2024 ambulatory ARSH POLK Facility:[facility] Start: 12-11-2024 End: 12-11-2024 Refill Romina A Rosarioan MANAGER SOFTWARE DEVELOPMENT.PROP DRAWER Work Phone: [facility] Comment on above: Refill Request Start: 11-29-2024 End: 11-30-2024 Telephone encounter Romina Flynn MANAGER SOFTWARE DEVELOPMENT.PROP DRAWER Work Phone: Family [facility] [place] Comment on above: Orders Patient Question Start: 11-29-2024 End: 11-29-2024 ambulatory Injection Keith [facility] Work Phone: Hematology/Oncology Comment on above: 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) (Primary Dx) Start: 11-28-2024 End: 11-28-2024 Telephone encounter Sol [facility] Comment on above: Home Care (Declined) Orders (Home Health) Start: 11-28-2024 End: 11-28-2024 Office outpatient visit 25 minutes Romina A Suppan MANAGER SOFTWARE DEVELOPMENT.PROP DRAWER Work Phone: [facility] [place] Comment on above: Diabetic polyneuropa thy associated with type 2 diabetes mellitus (HCC) (Primary Dx); Mixed hyperlipidemia; Pressure injury of buttock, stage 2, unspecified laterality (HCC); Parkinson's disease without dyskinesia or fluctuating manifestations (HCC); Tinea corporis Start: 11-28-2024 End: 11-28-2024 ambulatory ROMINA A SUPPAN Facility:[facility] Start: 11-27-2024 End: 11-27-2024 ambulatory Nurse Intm/Famp Triage [facility] Work Phone: Nurse Phone Triage Comment on above: wound on buttocks Start: 11-23-2024 End: 11-23-2024 Patient encounter procedure Yeyo Bailey MANAGER SOFTWARE DEVELOPMENT.PROP DRAWER Work Phone: [facility] Comment on above: Subdural hematoma, c hronic (HCC) (Primary Dx) Start: 11-23-2024 End: 11-23-2024 ambulatory ARSH POLK Facility:[facility] Start: 11-14-2024 End: 11-14-2024 Patient encounter procedure Reagan Webster [employer] [facility] [place] [facility] Work Phone: Start: 11-14-2024 End: 11-14-[address] Arsh Polk MD Work Phone: [facility] Start: 11-09-2024 ambulatory PATTI MOREIRA Facility :[facility] Start: 11-09-2024 End: 11-09-2024 Subsequent hospital visit by physician Ct [facility] (I-Stat) Work Phone: Cat Scan Comment on above: Subdural hematoma (H CC) [S06.5XAA] Start: 11-01-2024 End: 11-01-2024 ambulatory Injection Keith [facility] Work Phone: Hematology/Oncology Comment on above: 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) (Primary Dx) Start: 11-01-2024 End: 11-01-2024 ambulatory YENNY BILL Facility:[facility] Start: 10-25-2024 End: 10-25-2024 Emergency department patient visit DIEUDONNE LYNNERIO Facility:[facility] Start: 10-25-2024 End: 10-25-2024 Telephone encounter Arsh Otto MD Work Phone: [facility] Provider Adult Start: 10-25-2024 ambulatory ARSH OTTO JR Faci lity:[facility] Start: 10-25-2024 End: 06-18-2025 Subsequent hospital visit by physician [employer] [facility] (I-Stat/1.5t) Work Phone: Radiology Comment on above: [...] 10-20-2024 End: 10-20-2024 ambulatory ARSH OTTO JR Facility:[facility] Start: 10-04-2024 End: 10-04-2024 Telephone encounter Yenny Bill Work Phone: Hematology/Oncology Start: 10-04-2024 End: 10-04-2024 ambulatory Injection Keith [facility] Work Phone: Hematology/Oncology Comment on above: 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) (Primary Dx) Start: 10-04-2024 End: 10-04-2024 Patient encounter procedure Yenny Bill Work Phone: Hematology/Oncology Start: 10-04-2024 End: 10-04-2024 ambulatory YENNY BILL Facility:[facility] Start: 09-25-2024 End: 09-25-2024 Patient encounter procedure Arsh Polk MD Work Phone: [facility] Comment on above: Tremor, essential (P rimary Dx); Parkinson's disease, unspecified whether dyskinesia present, unspecified whether manifestations fluctuate (HCC); Essential hypertension, benign; Mixed hyperlipidemia; Aortic valve stenosis, etiology of cardiac valve disease unspecified; Hypertensive kidney disease with stage 3 chronic kidney disease, 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); 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; LV dysfunction; IRINEO [...] unspecified type Start: 09-25-2024 End: 09-25-2024 ambulatory [facility] Facility:[facility] Start: 09-18-2024 End: 09-18-2024 ambulatory [facility] Facility:[facility] Start: 09-04-2024 End: 09-04-2024 ambulatory [facility] Facility:[facility] Start: 09-03-2024 End: 09-03-2024 Emergency department patient visit Dr. Didier Mcintyre -Emergency Department Work Phone: Start: 08-31-2024 ambulatory Alva CONNOR Facility:[facility] Start: 08-31-2024 Non-patient / Non-visit Dr. Suzy VILLANUEVA -[facility] Work Phone: Start: 08-31-2024 End: 08-31-2024 Patient encounter procedure Alva CONNOR -Pulmonary Services/Neurology Work Phone: Start: 08-31-2024 End: 08-31-2024 ambulatory Nakia Lee Facility:[facility] Start: 08-25-2024 End: 08-25-[address] 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 for Chronic Disease Management Start: 07-13-2024 End: 07-13-2024 Coordination of care plan Arsh Polk MD Work Phone: [employer] Comment on above: Re: Care Coordinatio n Outreach Start: 07-13-2024 End: 07-13-2024 E-mail encounter from caregiver Arsh Polk MD Work Phone: [employer] Start: 07-10-2024 End: 07-10-2024 Patient encounter procedure Yenny Bill Work Phone: Hematology/Oncology Start: 07-10-2024 End: 07-10-2024 ambulatory Injection Keith [facility] Work Phone: Hematology/Oncology Comment on [...] Telephone encounter Arsh Polk MD Work Phone: [facility] Comment on above: [facility], verbal order s needed Start: 06-09-2024 End: 06-09-2024 ambulatory [facility] Facility:[facility] Start: 06-07-2024 End: 06-08-2024 Telephone encounter Arsh Polk MD Work Phone: [facility] Comment on above: [facility] Order request Start: 06-02-2024 End: 06-02-2024 Telephone encounter Eda Gabriel MSW Navigation Comment on above: Refill Request Start: 06-01-2024 End: 06-01-2024 Office outpatient visit 25 minutes Romina Flynn APRN.PROP DRAWER Work Phone: [facility] Comment on above: Parkinson's disease with dyskinesia, unspecified whether manifestations fluctuate (HCC) (Primary Dx); Anxiety; Diabetic polyneuropathy associated with type 2 diabetes mellitus (HCC); Benign prostatic hyperplasia without lower urinary tract symptoms; Paroxysmal atrial fibrillation (HCC); Age-related physical debility Start: 06-01-2024 End: 06-01-2024 ambulatory [facility] Facility:[facility] Start: 06-01-2024 End: 06-01-2024 Telephone encounter Romina Flynn APRN.PROP DRAWER [facility] Start: 05-29-2024 End: 05-29-2024 ambulatory Injection Keith [facility] Work Phone: Hematology/Oncology Comment on above: 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) (HCC) (Primary Dx) 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) (HCC) (Primary Dx); Iron malabsorption Start: 05-29-2024 End: 05-29-2024 Patient encounter procedure Yenny Bill Work Phone: Hematology/Oncology Start: 05-29-2024 End: 05-29-2024 ambulatory [facility] Facility:[facility] Start: 05-23-2024 End: 05-23-2024 Telephone encounter Arsh Polk MD Work Phone: [facility] Comment on above: Home Health Point of Care Results Start: 05-22-2024 End: 05-22-2024 Telephone encounter Arsh Polk MD Work Phone: [facility] Comment on above: Home Care Management Start: 05-19-2024 End: 05-19-2024 Telephone encounter Arsh Polk MD Work Phone: [facility] Comment on above: Home Health REquest Start: 04-27-2024 End: 05-19-2024 Evaluation and management of inpatient Bertrand Genticel [place] Facility:[facility] Start: 04-27-2024 End: 04-27-2024 Telephone encounter Kelin Mojica APRN.CNP Work Phone: [address] [place] [address] Start: 04-26-2024 End: 04-27-2024 Telephone encounter Kaylee Herrmann PA-C Work Phone: Neurology Comment on above: Patient Update Start: 04-25-2024 ambulatory John Katrina Facility[facility] Start: 04-24-2024 ambulatory Rey F Kotsonis Fac ility:[facility] Start: 04-24-2024 End: 04-27-2024 Evaluation and management of inpatient Rey F Kotsonis Facility:[facility] Start: 04-24-2024 ambulatory Rey F Kotsonis Fac ility:[facility] Start: 04-20-2024 End: 04-24-2024 Telephone encounter Arsh Otto MD Work Phone: Neurology Start: 04-17-2024 End: 04-17-2024 ambulatory Injection Keith [facility] Work Phone: Hematology/Oncology Comment on above: 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) (HCC) (Primary Dx) Start: 04-12-2024 End: 04-12-2024 Telephone encounter Arsh Otto MD Work Phone: Sleep Comment on above: Medication Problem Start: 04-12-2024 End: 04-12-2024 ambulatory ARSH POLK Facility:[facility] Start: 04-12-2024 End: 04-12-2024 Subsequent hospital visit by physician [employer] [facility] (I-Stat/1.5t) Work Phone: Radiology Comment on above: Acute pain of left s houlder due to trauma [M25.512, G89.11] 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] Start: 04-03-2024 End: 04-03-2024 ambulatory ARSH Carpenter JAM Facility:[facility] Start: 04-03-2024 End: 04-03-2024 Patient encounter procedure Denny Toure MD Work Phone: Orthopaedics Comment on above: Acute pain of left s houlder (Primary Dx); Other closed nondisplaced fracture of proximal end of left humerus, initial encounter Start: 04-03-2024 End: 04-03-2024 Patient encounter procedure Yenny Bill Work Phone: Hematology/Oncology Start: 04-03-2024 End: 04-03-2024 ambulatory [facility] Work Phone: Hematology/Oncology Comment on above: 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) (HCC) (Primary Dx) 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) (HCC) (Primary Dx); Iron malabsorption Start: 03-30-2024 End: 03-30-2024 Telephone encounter Arsh Polk MD Work Phone: [facility] [place] Comment on above: Results (Arm fractur e) Start: 03-27-2024 End: 03-27-2024 ambulatory ARSH Carpenter JAM Facility:[facility] Start: 03-27-2024 End: 03-27-2024 [facility] Start: 03-27-2024 End: 03-27-2024 Subsequent hospital visit by physician Rashid [facility] Work Phone: Radiology Comment on above: Acute pain of left s houlder [M25.512] Start: 03-27-2024 End: 03-27-2024 [facility] Start: 03-27-2024 End: 03-27-2024 Patient encounter procedure Arsh Polk MD Work Phone: [facility] Comment on above: Parkinson's disease, unspecified whether dyskinesia present, unspecified whether manifestations fluctuate (HCC) (Primary Dx); Essential hypertension, benign; Mixed hyperlipidemia; Hypertensive kidney disease with stage 3 chronic kidney disease, 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); 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; IRINEO (obstructive sleep [...] Telephone encounter Arsh Polk MD Work Phone: [facility] Comment on above: Patient Question Start: 03-20-2024 End: 03-20-2024 ambulatory Injection Keith [facility] Work Phone: Hematology/Oncology Comment on above: 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) (HCC) (Primary Dx) Start: 03-06-2024 End: 03-06-2024 Patient encounter procedure Yenny Bill Work Phone: Hematology/Oncology Start: 03-06-2024 End: 03-06-2024 ambulatory Injection Keith [facility] Work Phone: Hematology/Oncology Comment on above: 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) (HCC) (Primary Dx) Start: 03-04-2024 End: 03-06-2024 Refill Arsh Polk MD Work Phone: [facility] [place] Comment on above: Refill Request Start: 02-21-2024 End: 02-21-2024 ambulatory Injection Keith [facility] Work Phone: Hematology/Oncology Comment on above: 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) (HCC) (Primary Dx) Start: 02-07-2024 End: 02-07-2024 Telephone encounter Yenny Fly Work Phone: Hematology/Oncology Start: 02-07-2024 End: 02-07-2024 ambulatory Injection Keith [facility] Work Phone: Hematology/Oncology Comment on above: 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) (HCC) (Primary Dx) Start: 02-02-2024 End: 02-02-2024 Patient encounter procedure Arsh Polk MD Work Phone: [facility] Comment on above: Open fracture of mul [...] 01-26-2024 Subsequent hospital visit by physician Rashid [facility] Work Phone: Radiology Comment on above: Rib pain on right si de [R07.81] Start: 01-26-2024 End: 01-26-2024 Office outpatient visit 15 minutes Gabriel Butler APRN.CNP Work Phone: [facility] Comment on above: Rib pain [...] 12-22-2023 End: 12-22-2023 Patient encounter procedure Treatment 14 Keith [facility] Work Phone: Hematology/Oncology Start: 12-20-2023 End: 12-20-2023 ambulatory Treatment [facility]str Work Phone: Hematology/Oncology Comment on above: Iron malabsorption ( Primary Dx); 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); Stage 3b chronic kidney disease (HCC) Start: 12-20-2023 End: 12-20-2023 Patient encounter procedure Treatment Rm 17 Keith [facility] Work Phone: Hematology/Oncology Start: 12-18-2023 Refill Arsh Polk MD Work Phone: [facility] Comment on above: Refill Request Start: 12-17-2023 End: 12-17-2023 ambulatory Treatment [facility] Work Phone: Hematology/Oncology Comment on above: Iron malabsorption ( Primary Dx); 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); Stage 3b chronic kidney disease (HCC) Start: 12-17-2023 End: 12-17-2023 Patient encounter procedure Treatment Rm 14 Keith Hugh [facility] Work Phone: Hematology/Oncology Start: 12-15-2023 End: 12-15-2023 ambulatory Treatment Wstr Work Phone: Hematology/Oncology Comment on above: Iron malabsorption ( Primary Dx); 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); Stage 3b chronic kidney disease (HCC) Start: 12-15-2023 End: 12-15-2023 Patient encounter procedure Treatment Rm 14 Keith [facility] Work Phone: Hematology/Oncology Start: 12-13-2023 Telephone encounter Marlen feliciano APRN.PROP DRAWER Work Phone: Neurology Comment on above: Patient Update Start: 12-13-2023 End: 12-13-2023 ambulatory Treatment Wstr Work Phone: Hematology/Oncology Comment on above: Iron malabsorption ( Primary Dx); 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); Stage 3b chronic kidney disease (HCC) Start: 12-13-2023 End: 12-13-2023 Patient encounter procedure Treatment Rm 16 Keith [facility] Work Phone: Hematology/Oncology Start: 12-02-2023 Telephone encounter Yenny garcia Work Phone: Hematology/Oncology Comment on above: Results; Care Coordi nator - Other Start: 11-29-2023 End: 11-29-2023 ambulatory Yenny Bill Work Phone: Hematology/Oncology Comment on above: Anemia, unspecified type Start: 11-29-2023 End: 11-29-2023 Patient encounter procedure Yenny Bill Work Phone: Hematology/Oncology Start: 11-14-2023 Refill Arsh Polk MD Work Phone: [facility] Comment on above: Refill Request Start: 11-08-2023 Telephone encounter Arsh Polk MD Work Phone: [facility] Comment on above: Results Start: 11-08-2023 End: 11-08-2023 Patient encounter procedure Marlen Madrigal APRN.PROP DRAWER Work Phone: Neurology Comment on above: IRINEO (obstructive sle ep apnea) (Primary Dx); Treatment-emergent central sleep apnea Start: 11-03-2023 Refill Arsh Polk MD Work Phone: [facility] [place] Comment on above: Refill Request Start: 11-02-2023 Telephone encounter Marlen feliciano APRN.PROP DRAWER Work Phone: Neurology Comment on above: PAP Therapy Follow U p Start: 10-20-2023 Telephone encounter Arsh Polk MD Work Phone: [facility] [place] Comment on above: Results Start: 09-17-2023 End: [...] Essential hypertension, benign; 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; Multiple premature ventricular [...] 09-13-2023 Refill Arsh Polk MD Work Phone: [facility] Comment on above: Refill Request Start: 09-06-2023 [...] above: Appointment Start: 08-24-2023 End: 08-24-2023 ambulatory [facility] Work Phone: Start: 08-24-2023 End: 08-24-2023 Patient encounter procedure [facility] Work Phone: Start: 07-26-2023 End: 07-26-2023 ambulatory [facility] Work Phone: Start: 07-26-2023 End: 07-26-2023 Patient encounter procedure [facility] Work Phone: Start: 07-20-2023 End: 07-20-2023 ambulatory [facility] Work Phone: Start: 07-20-2023 End: 07-20-2023 Patient encounter procedure [facility] Spec[facility] Work Phone: Start: 07-08-2023 Refill Kaylee florez PA-C Work Phone: Neurology Comment on above: Refill Request Start: 06-18-2023 End: 06-18-2023 Patient encounter procedure Arsh Polk MD Work Phone: [facility] Comment on above: Mixed hyperlipidemia (Primary Dx); [...] Telephone encounter Arsh Polk MD Work Phone: [facility] Comment on above: Results Start: 04-05-2023 Refill Arsh Polk MD Work Phone: [facility] Comment on above: Refill Request Start: 03-01-2023 Refill Arsh Polk MD Work Phone: [facility] Comment on above: Refill Request Start: 02-16-2023 End: 02-16-2023 Subsequent hospital visit by physician Mri [employer] [facility] (I-Stat/1.5t) Work Phone: Radiology Comment [...] 12-06-2022 Refill Arsh Polk MD Work Phone: [facility] Comment on above: Refill Request Start: 11-26-2022 End: 11-26-2022 Patient encounter procedure Arsh Polk MD Work Phone: [facility] Comment on above: Diabetic polyneuropa thy associated [...] Telephone encounter Arsh Polk MD Work Phone: [facility] Comment on above: Orders Start: 11-02-2022 Refill Arsh Polk MD Work Phone: [facility] Comment on above: Refill Request Start: 10-23-2022 End: 10-23-2022 ambulatory [facility] Work Phone: Start: 10-23-2022 End: 10-23-2022 Patient encounter procedure [facility] Start: 10-22-2022 Telephone encounter Arsh Otto MD Work Phone: Neurology Comment on above: Patient Question Start: 10-21-2022 ambulatory Arsh abdullahi Jr., MD Work Phone: [facility] Start: 10-21-2022 Patient encounter procedure Arsh Otto MD Work Phone: Neurology Comment on above: Mask fit appointment Start: 07-20-2022 Refill Arsh Polk MD Work Phone: [facility] Comment on above: Refill Request Start: 07-18-2022 Refill Darnell Mackey PA-C Work Phone: Urology Comment on above: Refill Request Start: 07-15-2022 Refill Darnell Mackey PA-C Work Phone: Urology Comment on above: Refill Request Start: 07-09-2022 End: 07-09-2022 Subsequent hospital visit by physician [facility] Work Phone: Radiology Comment on above: URI, acute [J06.9] Start: 07-09-2022 End: 07-09-2022 Patient encounter procedure Montez CONNOR Work Phone: [facility] Comment on above: URI, acute (Primary Dx); Acute cough Start: 06-24-2022 End: 06-24-2022 ambulatory [facility] Work Phone: Start: 06-24-2022 End: 06-24-2022 Patient encounter procedure [facility] Start: 06-22-2022 Refill Arsh Polk MD Work Phone: [facility] Comment on above: Refill Request Start: 05-29-2022 End: 05-29-2022 Patient encounter procedure Arsh Polk MD Work Phone: [facility] Comment on above: Diabetic polyneuropa thy associated [...] 3b CKD (HCC); 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 Arsh Polk Work Phone: [facility] Work Phone: Start: 03-25-2022 End: 03-25-[address] Arsh Polk Work Phone: [facility] Start: 03-11-2022 ambulatory Arsh Polk MD Work Phone: [facility] Comment on above: Ramírez -sleep test Start: 03-10-2022 End: 03-10-[address] Arsh Polk Work Phone: [facility] Work Phone: Start: 03-10-2022 End: 03-10-[address] Arsh Polk Work Phone: [facility] Start: 03-09-2022 Refill Mery Meng on [employer] Work Phone: [facility] Comment on above: Refill Request Start: 03-02-2022 Telephone encounter [facility] Comment on above: [facility] Sleep Lab reques ting records Start: 02-20-2022 End: 02-20-[address] Arsh Polk Work Phone: [facility] Start: 01-21-2022 Telephone encounter Arsh Polk MD Work Phone: [facility] Comment on above: Appointment Start: 01-21-2022 End: 01-21-2022 Patient encounter procedure Arsh Polk MD Work Phone: [facility] Comment on above: Fatigue, unspecified type (Primary Dx); Encounter for immunization; Anxiety with depression; IRINEO (obstructive sleep apnea) Start: 01-20-2022 Telephone encounter Arsh Polk MD Work Phone: [facility] Comment on above: Results Start: 12-16-2021 End: 12-16-[address] Arsh Polk Work Phone: [facility] Start: 12-11-2021 End: 12-11-2021 Subsequent hospital visit by physician [facility] Comment on above: [facility] [C85.90] Start: 12-10-2021 End: 12-10-2021 Patient encounter procedure Arsh Polk MD Work Phone: [facility] Comment on above: Fatigue, unspecified type (Primary [...] 12-06-2021 Refill Arsh Polk MD Work Phone: [facility] Comment on above: Refill Request Start: 12-02-2021 End: 12-02-[address] Arsh Polk Work Phone: [facility] Start: 11-18-2021 Chart [facility] Main Work Phone: Neurology Comment on above: HSAT Check In (Adult ) Start: 11-13-2021 Non-patient / Non-visit Dr. Davin Polk Work Phone: [facility] Start: 11-12-2021 Non-patient / Non-visit Dr. Davin Polk Work Phone: [facility] Start: 11-12-2021 End: 11-12-2021 Admission to same day surgery center Dr. Arsh Polk Work Phone: [facility] Start: 11-07-2021 Telephone encounter Arsh Polk MD Work Phone: [facility] Comment on above: Medication Problem Start: 11-07-2021 End: 11-07-2021 Patient encounter procedure Arsh Polk MD Work Phone: [facility] Comment on above: Essential hypertensi on, benign [...] encounter procedure Dr. Arsh Polk Work Phone: [facility] Start: 10-13-2021 Non-patient / Non-visit Dr. Davin Polk Work Phone: [facility] Start: 10-13-2021 End: 10-13-[address] Arsh Polk Work Phone: [facility] Start: 10-13-2021 End: 10-13-[address] Arsh Polk Work Phone: [facility] Start: 08-30-2021 Refill Arsh Polk MD Work Phone: [facility] Comment on above: Refill Request Start: 02-14-2021 End: 02-14-2021 Subsequent hospital visit by physician Xr [facility] Work Phone: Radiology Comment on above: Cough [R05.9] Start: 11-07-2020 End: 11-07-2020 Subsequent hospital visit by physician Rashid [facility] Work Phone: Radiology Comment on above: Diarrhea, unspecifie d type [R19.7] Start: 10-24-2020 End: 10-24-2020 Subsequent hospital visit by physician Alva Lara APRN - [facility] Work Phone: [facility] [address] Comment on above: Severe aortic stenos is Start: 10-16-2020 End: 10-17-2020 Evaluation and management of inpatient Reinier Shore MD Work Phone: [facility] Comment on above: Arrived Start: 10-03-2020 End: 10-03-2020 Subsequent hospital visit by physician Radha Mistry APRN - PROP DRAWER Work Phone: [facility] [address] Comment on above: Aortic valve stenosi s, etiology of cardiac valve disease unspecified; Dyspnea on exertion Procedures Date Procedure Procedure Detail Performing Clinician Start: 11-09-2024 Ct head/brain w/o contrast material Patti Moreira MANAGER SOFTWARE DEVELOPMENT.PROP DRAWER Work Phone: Start: 10-25-2024 Mri brain brain [...] w/posteroant ch minimum 3 views Gabriel Butler MANAGER SOFTWARE DEVELOPMENT.PROP DRAWER Work Phone: Start: 07-26-2023 US urinary tract [...] Radiologic exam chest 2 views Pretty Mims MANAGER SOFTWARE DEVELOPMENT.PROP DRAWER Work Phone: Start: 11-07-2020 Radiologic exam abdomen 1 view Arsh Polk MD Work Phone: Start: 11-07-2020 Radiologic exam chest 2 views Arsh Polk MD Work Phone: Start: 10-24-2020 Basic metabolic panel calcium total Alva Lara MANAGER SOFTWARE DEVELOPMENT - PROP DRAWER Work Phone: Start: 10-17-2020 Echo tthrc r-t 2d w/wom-mode compl spec&colr d Radha Mistry MANAGER SOFTWARE DEVELOPMENT - PROP DRAWER Work Phone: Start: 10-17-2020 Ecg routine ecg w/least 12 lds w/i&r Radha Mistry MANAGER SOFTWARE DEVELOPMENT - PROP DRAWER Work Phone: Start: 10-17-2020 Gluc bld gluc mntr dev cleared fda spec home use Reinier Shore MD Work Phone: Start: 10-17-2020 Basic metabolic panel calcium total Radha Mistry MANAGER SOFTWARE DEVELOPMENT - PROP DRAWER Work Phone: Start: 10-16-2020 Ecg routine ecg w/least 12 lds w/i&r Radha Mistry MANAGER SOFTWARE DEVELOPMENT - PROP DRAWER Work Phone: Start: 10-16-2020 OPERATIVE REPORT 3m Scanning Start: 10-16-2020 Ecg routine ecg w/least 12 lds w/i&r Radha Mistry MANAGER SOFTWARE DEVELOPMENT - PROP DRAWER Work Phone: Start: 10-16-2020 Basic metabolic panel calcium total Radha Mistry MANAGER SOFTWARE DEVELOPMENT - PROP DRAWER Work Phone: Start: 10-16-2020 Echocardiography Reinier Pacheco Work Phone: Start: 10-16-2020 Gluc bld gluc mntr dev cleared fda spec home use Reinier Shore MD Work Phone: Start: 05-27-2021 Antibody screen Radha Mistry MANAGER SOFTWARE DEVELOPMENT - [employer] Work Phone: Start: 10-03-2020 Blood typing serologic abo Reinier mcdonald MD Work Phone: Start: 10-03-2020 Comprehensive metabolic panel Reinier Shore MD Work Phone: Start: 10-03-2020 Radiologic exam chest 2 views Radha Fidelia MANAGER SOFTWARE DEVELOPMENT - PROP DRAWER Work Phone: Start: 03-24-2017 End: 03-24-2017 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 John Herndon MD Start: 03-24-2017 End: 03-24-2017 Ecg routine ecg w/least 12 lds w/i&r John Herndon MD Start: 03-24-2017 End: 03-24-2017 Follow Up Appt 1 year John Herndon MD Plan of Treatment Date Care Activity Detail Author Start: 11-26-2032 Urine microalbumin profile [facility] Start: 01-02-2026 Diabetic foot examination Diabetic Foot Exam [facility] Start: 09-25-2025 Shingrix Vaccine (1 of 2) Shingrix Vaccine (1 of 2) [facility] Comment on above: Postponed from 1959 (Declined at t his time) Postponed from 05/10 (Declined at this time) Start: 07-16-2025 End: 07-16-2025 Patient encounter procedure 07/16/2025 1:40 PM EDT Office Visit Family Alejandro Cain [address] [place], [place] [id number] Arsh Polk MD [address] [place], [place] [phone] 6 mo follow up Family Alejandro Cain Comment on above: 6 mo follow up Start: 07-13-2025 Glaucoma screening Dilated Retinal Exam [facility] Start: 07-06-2025 End: 10-05-2025 Comprehensive metabolic 2000 panel - Serum or Plasma COMPREHENSIVE METABOLIC PANEL Lab Routine 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 1 through stage 4 chronic kidney disease, or unspecified chronic kidney disease (HCC) Expected: 07/06/2025, Expires: 10/05/2025 [facility] Comment on above: Expected: 07/06/2025, Expires: Start: 07-06-2025 End: 10-05-2025 Hemoglobin A1c in Blood HEMOGLOBIN A1C Lab Routine Diabetic polyneuropathy associated with type 2 diabetes mellitus (HCC) Expected: 07/06/2025, Expires: 10/05/2025 [facility] Work Phone: Comment on above: Expected: 07/06/2025, Expires: Start: 07-06-2025 End: 10-05-2025 Lipid 1996 panel - Serum or Plasma LIPID PANEL, FASTING Lab Routine 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 1 through stage 4 chronic kidney disease, or unspecified chronic kidney disease (HCC) Expected: 07/06/2025, Expires: 10/05/2025 [facility] Comment on above: Expected: 07/06/2025, Expires: Start: 06-28-2025 Hemoglobin A1c measurement HbA1C [facility] Start: 04-18-2025 End: 04-18-[address] [facility] Comment on above: (SO)CBC* QMO ARANESP/LAB GIUSEPPE Y* Start: 03-30-2025 End: 03-30-2025 Patient encounter procedure 03/30/2025 11:40 AM EST Office Visit Neurology [address] [place] [address] Arsh Otto Jr., MD [address] [place] [address] f/up Neurology Comment on above: f/up Start: 03-27-2025 Covid-19 Vaccine ( season) Covid-19 Vaccine ( season) [facility] Comment on above: Postponed from 03/28/2024 (Declined at t his time) Start: 03-27-2025 Covid-19 Vaccine (7 - Moderna risk season) Covid-19 Vaccine (7 - Moderna risk season) [facility] Comment on above: Postponed from 07/31/2024 (Declined at t his time) Start: 03-27-2025 Hepatitis B screening Urine Albumin:Creatinine Ratio [facility] Start: 03-21-2025 Hemoglobin A1c measurement HbA1C [facility] Start: 03-21-2025 End: 03-21-[address] [facility] Comment on above: (SO)CBC* QMO ARAJAKEP/LAB GIUSEPPE Y* Start: 03-20-2025 Hepatitis B surface antibody level LDL Cholesterol [facility] Start: 03-01-2025 End: 03-01-2025 Patient encounter procedure 03/01/2025 1:00 PM EDT [facility] [address] [place] [id number] Yeyo Bailey APRN.PROP DRAWER [address] [address] 3 mo f/u - CT 02/26 [facility] Comment on above: 3 mo f/u - CT 02/26 Start: 02-26-2025 End: 02-26-2025 Patient encounter procedure 02/26/2025 1:20 PM EDT Appointment Cat Scan [address] [place] [address] Dx: Subdural hematoma, 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 Comment on above: (SO)CBC* QMO ARANESP/LAB GIUSEPPE Y* Start: 02-02-2025 End: 02-02-2025 Patient encounter procedure 02/02/2025 2:15 PM EDT Office Visit [facility] [address] [place] [address] Palak Herman, OD [address] [place] [id number] [facility] [address] [id number] Dx: Vision loss [H54.7] Ophthalmology Comment on above: Dx: Vision loss [H54.7] Start: 01-30-2025 End: 01-30-2025 Patient encounter procedure Neurology Comment on above: Appt to address new issue and concerns Dx: Vision loss [H54 .7] Start: 01-24-2025 End: 01-24-[address] [place] [facility] Comment on above: (SO)CBC* QMO ARANESP/LAB GIUSEPPE Y*3MO OV IN DEC QMO ARANESP/LAB GIUSEPPE Y* Start: 01-08-2025 Influenza vaccination Influenza Vaccine (#1) [facility] Start: 01-03-2025 End: 01-03-2025 Patient encounter procedure 01/03/2025 2:20 PM EDT Office Visit Family Alejandro Cain [address] [place], [place] [phone] Arsh Polk MD [address] [place], [place] [phone] medicare wellness. labs prior [facility] Comment on above: medicare wellness. labs prior Start: 12-26-2024 End: 03-27-2025 Basic metabolic 2000 panel - Serum or Plasma BASIC METABOLIC PANEL Lab Routine Stage 3 chronic kidney disease, 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) Expected: 12/26/2024, Expires: 03/27/2025 [facility] Work Phone: Comment on above: Expected: 12/26/2024, Expires: Start: 12-26-2024 End: 03-27-2025 Hemoglobin A1c in Blood HEMOGLOBIN A1C Lab Routine Type 2 diabetes mellitus with stage 3 chronic kidney disease, without long-term current use of insulin, 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) Expected: 12/26/2024, Expires: 03/27/2025 [facility] Comment on above: Expected: 12/26/2024, Expires: Start: 12-26-2024 End: 12-26-[address] [facility] Comment on above: (SO)CBC* 3 MO OV/LAB EARLY/IN J TODAY* QMO ARANESP/LAB GIUSEPPE Y*3MO OV IN DEC (SO)CBC/Q3MO IRON ST UDIES* QMO ARANESP/LAB&OV E ANNE* Start: 11-29-2024 End: 11-29-[address] [facility] Comment on above: (SO)CBC* QMO ARANESP/LAB GIUSEPPE Y* QMO ARANESP/LAB GIUSEPPE Y*3MO OV IN DEC Start: 11-28-2024 End: 11-28-2024 Patient encounter procedure 11/28/2024 11:00 AM EDT Office Visit [facility] [address] [place], [place] [phone] Romina Flynn, MANAGER SOFTWARE DEVELOPMENT.PROP DRAWER [address] [place] [address] Pressure ulcers on reddened buttocks for a few weeks now. See triage. [facility] Comment on above: Pressure ulcers on reddened buttocks for a few weeks now. See triage. Start: 11-23-2024 End: 11-23-2024 Patient encounter procedure 11/23/2024 1:00 PM EDT Office Visit [facility] [address] [place] [phone] Yeyo Bailey, MANAGER SOFTWARE DEVELOPMENT.PROP DRAWER [address] [place] [address] SDH f/u, CT done 11/09 *pt requested this date, cannot move up [facility] Comment on above: SDH f/u, CT done 11/09 *pt requested this date, cannot move up Start: 11-09-2024 End: 11-09-2024 Patient encounter procedure 11/09/2024 11:40 AM EDT Appointment Cat Scan [address] [place] [place] [place] [address] Subdural hematoma (HCC) [S06.5XAA] Cat Scan Comment on above: Subdural hematoma (HCC) [S06.5XAA] Start: 11-01-2024 End: 11-01-[address] [facility] Comment on above: (SO)CBC* QMO ARANESP/LAB GIUSEPPE Y* Start: 10-25-2024 End: 10-25-2024 Patient encounter procedure 10/25/2024 12:00 PM EDT Appointment Radiology [address] [facility] [place] [id number] Parkinson's disease, unspecified whether dyskinesia present, unspecified whether manifestations fluctuate (HCC) [G20.A1]; Abnormality of gait [R26.9]; Altered mental status, unspecified altered mental status type [R41.82] Radiology Comment on above: Parkinson's disease, unspecified whether dyskinesia present, unspecified whether manifestations fluctuate (HCC) [G20.A1]; Abnormality of gait [R26.9]; Altered mental status, unspecified altered mental status type [R41.82] Start: 10-24-2024 Glaucoma screening Dilated Retinal Exam [facility] Start: 10-20-2024 End: 10-20-2024 Patient encounter procedure 10/20/2024 3:20 PM EDT Office Visit Neurology [address] [place] [phone] Arsh Otto Jr., MD [address] [place], [place] [phone] hospital f/u Neurology Comment on above: hospital f/u Start: 10-04-2024 End: 01-03-2025 CBC W Auto Differential panel - Blood COMPLETE BLOOD COUNT AND DIFFERENTIAL Lab STAT Anemia due to vitamin B12 deficiency, unspecified B12 deficiency type Expected: 10/04/2024, Expires: 01/03/2025 [facility] Comment on above: Expected: 10/04/2024, Expires: Start: 10-04-2024 End: 01-03-2025 Cobalamin (Vitamin B12) [Mass/volume] in Serum or Plasma VITAMIN B12 Lab Routine Anemia due to vitamin B12 deficiency, unspecified B12 deficiency type Expected: 10/04/2024, Expires: 01/03/2025 [facility] Work Phone: Comment on above: Expected: 10/04/2024, Expires: Start: 10-04-2024 End: 10-04-2024 ambulatory Hematology/Oncology Comment on above: ?Q2WK ARANESP/LAB&OV EARLY* ?QMO ARANESP/LAB&OV EARLY/AUTH EXP 05/09/25* Start: 10-04-2024 End: 10-04-[address] [facility] Comment on above: (SO)CBC/FERRITIN/IRON STUDIES* 3 MO OV/LAB & INJECT ION TODAY* Start: 09-25-2024 End: 09-25-2024 Patient encounter procedure 09/25/2024 10:40 AM EDT Office Visit Family Alejandro Cain [address] [place], [place] [phone] Arsh Polk MD [address] [place], [place] [id number] 6 month follow up. Labs prior [facility] Comment on above: 6 month follow up. Labs prior Start: 09-24-2024 End: 12-24-2024 Basic metabolic 2000 panel - Serum or Plasma BASIC METABOLIC PANEL Lab Routine Mixed hyperlipidemia Expected: 09/24/2024, Expires: 12/24/2024 [facility] Comment on above: Expected: 09/24/2024, Expires: Start: 09-24-2024 End: 12-24-2024 Hemoglobin A1c in Blood HEMOGLOBIN A1C Lab Routine Type 2 diabetes mellitus with stage 3 chronic kidney disease, without long-term current use of insulin, 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) Expected: 09/24/2024, Expires: 12/24/2024 [facility] Comment on above: Expected: 09/24/2024, Expires: Start: 09-17-2024 Hemoglobin A1c measurement HbA1C [facility] Start: 09-04-2024 End: 09-04-[address] [facility] Comment on above: (SO)CBC* 1 MO OV/LAB & INJECT ION TODAY* CBC/? Q2WK ARANESP* CBC/? QMO ARANESP/AU TH EXP? * CBC/? QMO ARANESP/AU TH EXP 05/09/25* Start: 09-03-2024 [facility] Start: 09-03-2024 End: 09-03-2024 [facility] Start: 08-21-2024 End: 08-21-2024 [facility] Comment on above: (SO)CBC* CBC/? Q2WK ARANESP* Start: 08-07-2024 End: 08-07-2024 [facility] Comment on above: (SO)CBC* CBC/? Q2WK ARANESP* 1 MO OV/LAB & INJECT ION TODAY* CBC/? QMO ARANESP/AU TH EXP?* CBC/? QMO ARANESP/AU TH EXP 05/09/25* Start: 07-24-2024 End: 07-24-[address] [facility] Comment on above: (SO)CBC* CBC/? Q2WK ARANESP* Start: 07-11-2024 Diabetic foot examination Diabetic Foot Exam [facility] Comment on above: Postponed from 06/01/2024 (Postponed - N ot Clinically Indicated) Start: 07-10-2024 End: 07-10-2024 [facility] Comment on above: (SO)CBC* CBC/? Q2WK ARANESP* 1 MO OV/LAB & INJECT ION TODAY* r/s from 06/26 Start: 06-26-2024 End: 06-26-2024 ambulatory 06/26/2024 10:45 AM [facility] Infusion Center Hematology/Oncology [address] [place] [address] Wstr, Injection [facility] [address] [place] [address] ?Q2WK ARANESP/LAB&OV EARLY* Hematology/Oncology Comment on above: ?Q2WK ARANESP/LAB&OV EARLY* Start: 06-26-2024 End: 06-26-[address] [facility] Comment on above: (SO)CBC* 1 MO OV/LAB & INJECT ION TODAY* Start: 06-12-2024 End: 06-12-2024 [facility] Comment on above: (SO)CBC* CBC/? Q2WK ARANESP* Start: 06-02-2024 Covid-19 Vaccine () Covid-19 Vaccine () [facility] Comment on above: Postponed from 04/26/2023 (Declined at t his time) Start: 06-02-2024 Shingrix Vaccine (1 of 2) Shingrix Vaccine (1 of 2) [facility] Comment on above: Postponed from 1959 (Declined at t his time) Start: 06-01-2024 End: 06-01-2024 Patient encounter procedure 06/01/2024 2:40 PM EST Office Visit Family [place] [address] [place] [address] Romina Flynn, MANAGER SOFTWARE DEVELOPMENT.PROP DRAWER [address] [place], [place] [address] [facility] Comment on above: follow up [facility] Start: 06-01-2024 Diabetic foot examination Diabetic Foot Exam [facility] Start: 05-31-2024 Hepatitis B surface antibody level LDL Cholesterol [facility] Start: 05-29-2024 End: 05-29-2024 Patient encounter procedure 05/29/2024 1:40 PM EST Office Visit Family Medicine [place] [address] [place] [address] Romina Flynn, MANAGER SOFTWARE DEVELOPMENT.PROP DRAWER [address] [place], [place] [id number] follow up [facility] Afib rbr Family [facility] Comment on above: follow up [facility] Start: 05-29-2024 End: 05-29-[address] [facility] Comment on above: (SO)CBC* 1 MO OV/LAB & INJECT ION TODAY* ?Q2WK ARANESP/LAB&OV EARLY* Start: 05-15-2024 End: 05-15-2024 [facility] Comment on above: (SO)CBC* CBC/? Q2WK ARANESP* Start: 2024 Advance Directive Discussion Advance Directive Discussion [facility] Start: 2024 Medicare [facility] Annual Wellness Visit Medicare [facility] Annual Wellness Visit [facility] Start: 05-01-2024 End: 05-01-2024 [facility] Comment on above: (SO)CBC* CBC/? Q2WK ARANESP* Start: 04-26-2024 End: 04-26-2024 Patient encounter procedure 04/26/2024 10:30 AM EST Office Visit Neurology [address] [place], [place] [phone] Kaylee Herrmann PA-C [address] [place], [place] [phone] Follow up, stopped Sinemet per Dr. Otto Neurology Comment on above: Follow up, stopped Sinemet per Dr. Otto Start: 04-17-2024 End: 04-17-2024 [facility] Comment on above: (SO)CBC* CBC/? Q2WK ARANESP* Start: 04-12-2024 End: 04-12-2024 Patient encounter procedure Radiology Comment on above: Spinal stenosis of lumbar region with ne urogenic claudication [M48.062]Acute pain of left shoulder due to trauma [M25.512, G89.11] Start: 04-03-2024 End: 04-03-2024 Patient encounter procedure Orthopaedics Comment on above: Left proximal humerus fracture Arrived Start: 04-03-2024 End: 04-03-2024 [facility] Comment on above: (SO)CBC* CBC/? Q2WK ARANESP* 1 MO OV/LAB & INJECT ION TODAY* Start: 03-28-2024 Covid-19 Vaccine ( season) Covid-19 Vaccine () [facility] Start: 03-27-2024 End: 06-26-2024 Microalbumin/Creatinine [Mass Ratio] in Urine [facility] Comment on above: Expected: 03/27/2024, Expires: Start: 03-27-2024 End: 03-27-2024 Patient encounter procedure [facility] Medicine [place] Comment on above: 6 month follow up. Labs prior 3 month follow up, P robinson's and IRINEO 3 month follow up Pa tamiko's and IRINEO, blake 8.21.24 cont Sinemet 25/100 mg TID, stay hydrated, increase physical activity Start: 03-20-2024 End: 03-20-2024 ambulatory [place] [facility] Comment on above: (SO)CBC* CBC/? 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 deficiency, unspecified B12 deficiency type Expected: 03/19/2024, Expires: 06/18/2024 [facility] Comment on above: Expected: 03/19/2024, Expires: Start: 03-19-2024 End: 06-18-2024 Folate [Mass/volume] in Serum or Plasma FOLATE, SERUM Lab Routine Anemia due to folic acid deficiency, unspecified deficiency type Expected: 03/19/2024, Expires: 06/18/2024 [facility] Comment on above: Expected: 03/19/2024, Expires: Start: 03-19-2024 End: 06-18-2024 Hemoglobin A1c in Blood HEMOGLOBIN A1C Lab Routine Diabetic polyneuropathy associated with type 2 diabetes mellitus (HCC) Expected: 03/19/2024, Expires: 06/18/2024 [facility] Work Phone: Comment on above: Expected: 03/19/2024, Expires: Start: 03-19-2024 End: 06-18-2024 Hepatic function 2000 panel - Serum or Plasma HEPATIC FUNCTION PNL Lab Routine Mixed hyperlipidemia Expected: 03/19/2024, Expires: 06/18/2024 [facility] Comment on above: Expected: 03/19/2024, Expires: Start: 03-19-2024 End: 06-18-2024 Iron and Iron binding capacity panel - Serum or Plasma IRON AND TIBC Lab Routine History of iron deficiency anemia Expected: 03/19/2024, Expires: 06/18/2024 [facility] Comment on above: Expected: 03/19/2024, Expires: Start: 03-19-2024 End: 06-18-2024 Lipid 1996 panel - Serum or Plasma LIPID PANEL BASIC Lab Routine Mixed hyperlipidemia Expected: 03/19/2024, Expires: 06/18/2024 [facility] Comment on above: Expected: 03/19/2024, Expires: Start: 03-12-2024 Hemoglobin A1c measurement HbA1C [facility] Start: 03-06-2024 End: 03-06-[address] [facility] Comment on above: CBC* CBC/? Q2WK ARANESP* OV PER 02/07/24 TE/LA B & INJECTION TODAY* (SO)CBC* Start: 02-21-2024 End: 02-21-[address] [facility] Comment on above: CBC* CBC/? Q2WK ARANESP* Start: 02-07-2024 End: 02-07-[address] [facility] Comment on above: CBC/EPO LEVEL* CBC/EPO LEVEL/? Q2WK ARANESP* Start: 02-07-2024 End: 02-07-2024 Patient encounter procedure 02/07/2024 10:30 AM EDT Office Visit Neurology [address] [place] [address] Marlen Madrigal APRN.PROP DRAWER [address] [place] [address] IRINEO follow up Neurology Comment on above: IRINEO follow up Start: 02-02-2024 End: 02-02-2024 Patient encounter procedure 02/02/2024 4:00 PM EDT Office Visit Family Medicine [place] [address] [place] [address] Arsh Polk MD [address] [place] [address] f/u right rib pain [facility] [place] Comment on above: f/u right rib pain Start: 01-19-2024 End: 04-19-2024 Erythropoietin (EPO) [Units/volume] in Serum or Plasma ERYTHROPOIETIN/EPO Lab Routine Stage 3b chronic kidney disease (HCC) Expected: 01/19/2024, Expires: 04/19/2024 [facility] Work Phone: Comment on above: Expected: 01/19/2024, Expires: 4 Start: 01-19-2024 End: 01-19-2024 ambulatory Hematology/Oncology Comment on above: OV (LABS EARLY) OV(LABS 01/16)* Start: 01-17-2024 End: 04-17-2024 Ferritin [Mass/volume] in Serum or Plasma [facility] Comment on above: Expected: 01/17/2024, Expires: 4 Start: 01-17-2024 End: 04-17-2024 Iron and Iron binding capacity panel - Serum or Plasma [facility] Work Phone: Comment on above: Expected: 01/17/2024, Expires: 4 Start: 01-17-2024 End: 01-17-2024 ambulatory 01/17/2024 10:30 AM EDT Results Only [facility] [address] [place] [address] CBC,CMP, IRON STUDIES [facility] Comment on above: CBC,CMP, IRON STUDIES Start: 01-09-2024 Covid-19 Vaccine ( season) Covid-19 Vaccine ( season) [facility] Start: 01-09-2024 Covid-19 Vaccine ( season) Covid-19 Vaccine ( season) [facility] Start: 01-09-2024 Influenza vaccination Influenza Vaccine (#1) [facility] Start: 12-29-2023 End: 12-29-2023 Patient encounter procedure 12/29/2023 3:30 PM EDT Office Visit Neurology [address] [place], [place] [phone] Kaylee Herrmann PA-C [address] [place] [address] Follow up 8 wk Neurology Comment on [...] Visit (SP) Office Hematology/Oncology [address] [place] [address] 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 Hematology/Oncology Comment on above: 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 Start: 11-29-2023 Hemoglobin A1c measurement HbA1C [facility] Start: 11-29-2023 End: 02-28-2024 MONOCLONAL PROT UR W/INTERP [facility] Comment on above: Expected: 11/29/2023, Expires: Start: 11-29-2023 End: 02-28-2024 MONOCLONAL PROTEIN, SERUM (BLOOD) [facility] Work Phone: Comment on above: Expected: 11/29/2023, Expires: 4 Start: 11-29-2023 End: 02-28-2024 PROTE[facility]ROP[facility]ORESIS [facility] Comment on above: Expected: 11/29/2023, Expires: Start: 11-29-2023 End: 11-29-2023 ambulatory 11/29/2023 10:30 AM EDT Visit (SP) Office Hematology/Oncology [address] [place] [phone] Yenny Bill [address] [place] [phone] FOUNTAIN SERVER/ANEMIA/REF ARSH POLK* - PATIENT CHOICE Hematology/Oncology Comment on above: FOUNTAIN SERVER/ANEMIA/REF ARSH POLK* - PATIENT CH OICE Start: 11-18-2023 Hepatitis B screening URINE ALBUMIN:CREATININE RATIO [facility] Start: 11-18-2023 Hepatitis B surface antibody level LDL CHOLESTEROL [facility] Start: 11-08-2023 End: 11-08-2023 Patient encounter procedure 11/08/2023 10:30 AM EDT Office Visit Neurology [address] [place] [phone] Marlen Madrigal APRN.PROP DRAWER [address] [place] [address] IRINEO follow up Neurology Comment on above: IRINEO follow up Start: 11-03-2023 End: 11-03-2023 ambulatory 11/03/2023 9:10 AM EDT Results Only [place] [facility] [address] [place] [phone] Anemia, unspecified type [D64.9] [place] [facility] Comment on above: Anemia, unspecified type [D64.9] Start: 10-20-2023 End: 10-19-2024 CBC W Auto Differential panel - Blood COMPLETE BLOOD COUNT AND DIFFERENTIAL Lab Routine Anemia, unspecified type Expected: 10/20/2023, Expires: 10/19/2024 [facility] Work Phone: Comment on above: Expected: 10/20/2023, Expires: Start: 10-20-2023 End: 10-19-2024 Cobalamin (Vitamin B12) [Mass/volume] in Serum or Plasma VITAMIN B12 Lab Routine Anemia, unspecified type Expected: 10/20/2023, Expires: 10/19/2024 [facility] Comment on above: Expected: 10/20/2023, Expires: Start: 10-20-2023 End: 10-19-2024 Ferritin [Mass/volume] in Serum or Plasma FERRITIN Lab Routine Anemia, unspecified type Expected: 10/20/2023, Expires: 10/19/2024 [facility] Comment on above: Expected: 10/20/2023, Expires: Start: 10-20-2023 End: 10-19-2024 Folate [Mass/volume] in Serum or Plasma FOLATE, SERUM Lab Routine Anemia, unspecified type Expected: 10/20/2023, Expires: 10/19/2024 [facility] Comment on above: Expected: 10/20/2023, Expires: Start: 10-20-2023 End: 10-19-2024 Hemoglobin.gastrointesti nal.lower [Presence] in Stool by Immunoassay IMMUNOCHEMICAL FECAL OCCULT BLOOD TEST Lab Routine Anemia, unspecified type Expected: 10/20/2023, Expires: 10/19/2024 [facility] Comment on above: Expected: 10/20/2023, Expires: Start: 10-20-2023 End: 10-19-2024 Iron and Iron binding capacity panel - Serum or Plasma IRON AND TIBC Lab Routine Anemia, unspecified type Expected: 10/20/2023, Expires: 10/19/2024 [facility] Comment on above: Expected: 10/20/2023, Expires: Start: 10-18-2023 End: 01-17-2024 Basic metabolic 2000 panel - Serum or Plasma BASIC METABOLIC PANEL Lab Routine Hypertensive kidney disease with stage 3 chronic kidney disease, 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) Expected: 10/18/2023, Expires: 01/17/2024 [facility] Comment on above: Expected: 10/18/2023, Expires: Start: [...] iron deficiency anemia Expected: 10/18/2023, Expires: 01/17/2024 [facility] Comment on above: Expected: 10/18/2023, Expires: Start: 09-17-2023 End: 09-17-2023 Patient encounter procedure 09/17/2023 11:00 AM EDT Office Visit Family [place] [address] [place] [address] Arsh Polk MD [address] [place] [address] 3 Month follow up Family [facility] Comment on above: 3 Month follow up Start: 09-16-2023 End: 12-16-2023 Hemoglobin A1c in Blood HGB A1C Lab Routine Diabetic polyneuropathy associated with type 2 diabetes mellitus (HCC) Expected: 09/16/2023, Expires: 12/16/2023 [facility] Work Phone: Comment on above: Expected: 09/16/2023, Expires: Start: 09-12-2023 Glaucoma screening Dilated Retinal Exam [facility] Start: 09-12-2023 Hepatitis C antibody, confirmatory test DILATED RETINAL EXAM [facility] Start: 09-06-2023 End: 09-06-2023 Patient encounter procedure 09/06/2023 3:20 PM EDT Office Visit Neurology [address] [facility] [place] [address] Arsh Otto Jr., MD [address] [facility] [address] [place] [id number] Follow up Parkinsons, IRINEO (review [facility] appt scheduled 20 min to f/u IRINEO and Parkinsons) MQ note stated allow 60 min. Neurology Comment on above: Follow up Parkinsons, IRINEO (review [facility] ap pt scheduled 20 min to f/u IRINEO and Parkinsons) MQ note stated allow 60 min. Start: 07-20-2023 Urine protein electrophoresis [facility] Start: 06-18-2023 End: 09-17-2023 Basic metabolic 2000 panel - Serum or Plasma BASIC METABOLIC PNL Lab Routine Hypertensive kidney disease with stage 3 chronic kidney disease, 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) Expected: 06/18/2023, Expires: 09/17/2023 [facility] Work Phone: Comment on above: Expected: 06/18/2023, Expires: 4 Start: 06-18-2023 End: 09-17-2023 CBC W Auto Differential panel - Blood CBC + DIFF Lab Routine Anemia due to vitamin B12 deficiency, unspecified B12 deficiency type Anemia due to folic acid deficiency, unspecified deficiency type Expected: 06/18/2023, Expires: 09/17/2023 [facility] Work Phone: Comment on above: Expected: 06/18/2023, Expires: 4 Start: 05-20-2023 Hemoglobin A1c/Hemoglobin.total in Blood HBA1C [facility] Start: 05-15-2023 3 comp foot exam completed DIABETIC FOOT EXAM [facility] Start: 01-08-2023 Covid-19 Vaccine ( season) Covid-19 Vaccine () [facility] Start: 01-08-2023 Influenza vaccination [facility] Start: 12-02-2022 Hepatitis B surface antibody level LDL CHOLESTEROL [facility] Start: 11-26-2022 End: 01-26-2023 CBC W Auto Differential panel - Blood CBC + DIFF Lab Routine Anemia due to folic acid deficiency, unspecified deficiency type Expected: 11/26/2022, Expires: 01/26/2023 [facility] Work Phone: Comment on above: Expected: 11/26/2022, Expires: 3 Start: 11-26-2022 Hemoglobin A1c/Hemoglobin.total in Blood HBA1C [facility] Start: 11-26-2022 End: 01-26-2023 Iron and Iron binding capacity panel - Serum or Plasma IRON + TIBC Lab Routine Anemia due to folic acid deficiency, unspecified deficiency type Expected: 11/26/2022, Expires: 01/26/2023 [facility] Work Phone: Comment on above: Expected: 11/26/2022, Expires: Start: 11-12-2022 End: 01-12-2023 25-hydroxyvitamin D3 [Mass/volume] in Serum or Plasma VITAMIN D 25 HYDROXY Lab Routine Diabetic polyneuropathy associated with type 2 diabetes mellitus (HCC) Mixed hyperlipidemia Vitamin D deficiency Type 2 diabetes mellitus with stage 3 chronic kidney disease, without long-term current use of insulin, 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) Expected: 11/12/2022, Expires: 01/12/2023 [facility] Work Phone: Comment on above: Expected: 11/12/2022, [...] 3b CKD (HCC) Expected: 11/12/2022, Expires: 01/12/2023 [facility] Work Phone: Comment on above: Expected: 11/12/2022, [...] 3b CKD (HCC) Expected: 11/12/2022, Expires: 01/12/2023 [facility] Work Phone: Comment on above: Expected: 11/12/2022, [...] 3b CKD (HCC) Expected: 11/12/2022, Expires: 01/12/2023 [facility] Work Phone: Comment on above: Expected: 11/12/2022, [...] 3b CKD (HCC) Expected: 11/12/2022, Expires: 01/12/2023 [facility] Work Phone: Comment on above: Expected: 11/12/2022, Expires: Start: 11-12-2022 End: 01-12-2023 Hemoglobin A1c in Blood HGB A1C Lab Routine Diabetic polyneuropathy associated with type 2 diabetes mellitus (HCC) Mixed hyperlipidemia Vitamin D deficiency Type 2 diabetes mellitus with stage 3 chronic kidney disease, without long-term current use of insulin, 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) Expected: 11/12/2022, Expires: 01/12/2023 [facility] Work Phone: Comment on above: Expected: 11/12/2022, [...] 3b CKD (HCC) Expected: 11/12/2022, Expires: 01/12/2023 [facility] Work Phone: Comment on above: Expected: 11/12/2022, [...] 3b CKD (HCC) Expected: 11/12/2022, Expires: 01/12/2023 [facility] Work Phone: Comment on above: Expected: 11/12/2022, Expires: 3 Start: 10-28-2022 Hepatitis B screening URINE ALBUMIN:CREATININE RATIO [facility] Start: 10-28-2022 Hepatitis B surface antibody level LDL CHOLESTEROL [facility] Start: 08-26-2022 Hepatitis C antibody, confirmatory test DILATED RETINAL EXAM [facility] Start: 07-09-2022 End: 07-23-2022 Influenza virus A and B RNA and SARS-CoV-2 (COVID-19) N gene panel - Respiratory specimen by ARIANA with probe detection [facility] Work Phone: Comment on above: Expected: 07/09/2022, Expires: 3 Start: 05-29-2022 End: 07-29-2022 Basic metabolic 2000 panel - Serum or Plasma [facility] Work Phone: Comment on above: Expected: 05/29/2022, Expires: 3 Start: 05-29-2022 End: 07-29-2022 CBC W Auto Differential panel - Blood [facility] Work Phone: Comment on above: Expected: 05/29/2022, Expires: 3 Start: 05-29-2022 End: 07-29-2022 Cobalamin (Vitamin B12) [Mass/volume] in Serum or Plasma [facility] Work Phone: Comment on above: Expected: 05/29/2022, Expires: 3 Start: 05-29-2022 End: 07-29-2022 Folate [Mass/volume] in Serum or Plasma [facility] Work Phone: Comment on above: Expected: 05/29/2022, Expires: 3 Start: 05-29-2022 End: 07-29-2022 Hemoglobin A1c in Blood [facility] Work Phone: Comment on above: Expected: 05/29/2022, Expires: 3 Start: 2022 ADVANCE DIRECTIVE DISCUSSION ADVANCE DIRECTIVE DISCUSSION [facility] Start: 2022 DEPRESSION ASSESSMENT DEPRESSION ASSESSMENT [facility] Start: 2022 End: 07-10-2022 Lipid 1996 panel - Serum or Plasma LIPID PANEL BASIC Lab Routine Mixed hyperlipidemia Expected: 2022, Expires: 07/10/2022 [facility] Work Phone: Comment on above: Expected: 2022, Expires: 3 Start: 04-29-2022 Hemoglobin A1c/Hemoglobin.total in Blood HBA1C [facility] Start: 04-21-2022 Covid-19 Vaccine (5 - Moderna risk series) Covid-19 Vaccine (5 - Moderna risk series) [facility] Start: 01-30-2022 3 comp foot exam completed DIABETIC FOOT EXAM [facility] Start: 01-22-2022 Hemoglobin A1c/Hemoglobin.total in Blood HBA1C [facility] Start: 01-08-2022 Influenza vaccination INFLUENZA (#1) [facility] Start: 12-19-2021 End: 02-18-2022 Thyrotropin [Units/volume] in Serum or Plasma TSH BLD Lab Routine Fatigue, unspecified type Expected: 12/19/2021, Expires: 02/18/2022 [facility] Work Phone: Comment on above: Expected: 12/19/2021, Expires: 2 Start: 11-12-2021 Colonoscopy flx dx w/collj spec when pfrmd DIAGNOSTIC COLONOSCOPY [facility] Work Phone: Start: 11-12-2021 Patient discharge [facility] Work Phone: Start: 11-07-2021 End: 01-07-2022 CBC W Auto Differential panel - Blood CBC + DIFF Lab Routine Anemia, unspecified type Expected: 11/07/2021, Expires: 01/07/2022 [facility] Work Phone: Comment on above: Expected: 11/07/2021, Expires: 2 Start: 11-07-2021 End: 01-07-2022 Cobalamin (Vitamin B12) [Mass/volume] in Serum or Plasma VITAMIN B12 BLOOD Lab Routine Vitamin B12 deficiency Expected: 11/07/2021, Expires: 01/07/2022 [facility] Work Phone: Comment on above: Expected: 11/07/2021, Expires: 2 Start: 11-07-2021 End: 01-07-2022 Folate [Mass/volume] in Serum or Plasma FOLATE SERUM Lab Routine Anemia, unspecified type Expected: 11/07/2021, Expires: 01/07/2022 [facility] Work Phone: Comment on above: Expected: 11/07/2021, Expires: 2 Start: 11-07-2021 End: 01-07-2022 Hepatic function 2000 panel - Serum or Plasma HEPATIC FUNCTION PNL Lab Routine Mixed hyperlipidemia Expected: 11/07/2021, Expires: 01/07/2022 [facility] Work Phone: Comment on above: Expected: 11/07/2021, Expires: 2 Start: 11-07-2021 End: 01-07-2022 Iron and Iron binding capacity panel - Serum or Plasma IRON + TIBC Lab Routine Anemia, unspecified type Expected: 11/07/2021, Expires: 01/07/2022 [facility] Work Phone: Comment on above: Expected: 11/07/2021, Expires: Start: 11-04-2021 Hepatitis B surface antibody level LDL CHOLESTEROL [facility] Start: 10-24-2021 Creatinine measurement Creatinine monitoring [facility] [...] VACCINE (4 - Booster for Moderna series) [facility] Start: 06-09-2021 COVID-19 VACCINE (4 - Booster for Moderna series) COVID-19 VACCINE (4 - Booster for Moderna series) [facility] Start: 05-23-2021 Hepatitis B screening URINE ALBUMIN:CREATININE RATIO [facility] Start: 2021 ADVANCE DIRECTIVE DISCUSSION ADVANCE DIRECTIVE DISCUSSION [facility] Start: 2021 DEPRESSION ASSESSMENT DEPRESSION ASSESSMENT [facility] Start: 11-20-2020 End: 11-20-2020 Patient encounter procedure [facility] [address] Start: 10-24-2020 End: 10-24-2020 Patient encounter procedure 10/24/2020 Office Visit Cardiology Alva Lara, MANAGER SOFTWARE DEVELOPMENT - PROP DRAWER [address] [place] [address] [phone] [facility] Start: 10-16-2020 End: 10-16-2020 Patient encounter procedure 10/16/2020 Appointment General Surgery Reinier Shore MD [address] [place] [address] [phone] Mago Doyle MD [address] [place] [address] [phone] [facility] General Surgery Start: 09-11-2020 Annual Wellness Visit (AWV) Annual Wellness Visit (AWV) [facility] Work Phone: Start: 03-24-2018 End: 03-24-2018 Appointment Appointment [facility] Work Phone: Start: 03-24-2017 End: 03-24-2017 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 [facility] Work Phone: Start: 03-24-2017 End: 03-24-2017 Follow Up Appt 1 year Follow Up Appt 1 year [facility] Work Phone: Start: 03-24-2017 End: 03-24-2017 Appointment Appointment [facility] Work Phone: Start: 01-09-2014 End: 01-09-2014 Mri any jt lower extrem w/o contrast matrl MRI Joint Lower Extremity [facility] Work Phone: Start: 2000 Hepatitis B Vaccine (1 of 3 - Risk 3-dose series) Hepatitis B Vaccine (1 of 3 - Risk 3-dose series) [facility] Start: 2000 RSV Vaccine (1 - 1-dose 60+ series) RSV Vaccine (1 - 1-dose 60+ series) [facility] Start: 1990 Shingles Vaccine (1 of 2) Shingles Vaccine (1 of 2) [facility] Work Phone: Start: 1990 SHINGRIX VACCINE (1 of 2) SHINGRIX VACCINE (1 of 2) [facility] Start: 1959 DTaP/Tdap/Td vaccine (1 - Tdap) DTaP/Tdap/Td vaccine (1 - Tdap) [facility] Work Phone: Start: 1959 SHINGRIX VACCINE (1 of 2) SHINGRIX VACCINE (1 of 2) [facility] Start: 1959 Urine microalbumin profile DTAP,TDAP,TD (1 - Tdap) [facility] Start: 1950 Lipid panel Lipid screen [facility] Work Phone: Basic metabolic 2000 panel - Serum or Plasma Basic Metabolic Panel Lab Routine Daily until discontinued starting 10/16/2020, 2 completed [facility] Work Phone: Comment on above: Daily until discontinued starting 2020, 2 completed CBC panel - Blood by Automated count CBC Lab Routine Daily until discontinued starting 10/16/2020, 2 completed [facility] Work Phone: Comment on above: Daily until discontinued starting 2020, 2 completed Continuous pulse oximetry Pulse oximetry, continuous Respiratory Care Routine Every 4hr until discontinued starting 10/16/2020 [facility] Work Phone: Comment on above: Every 4hr until discontinued starting End: 01-09-2023 Ct abdomen & pelvis w/o contrast material CT ABD/PEL WO IVCON Radiology Routine 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) Lymphadenopathy, abdominal Localized enlarged lymph nodes 1 Occurrences starting 12/10/2021 until 01/09/2023 [facility] Work Phone: Comment on above: 1 Occurrences starting 12/10/2021 until 01/09/2023 Ct abdomen & pelvis w/o contrast material CT ABD/PEL WO IVCON Radiology Routine 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) Lymphadenopathy, abdominal Localized enlarged lymph nodes 12/11/2021 11:48 AM EDT [facility] Work Phone: End: 12-23-2025 CT Head WO contrast CT BRAIN WO IVCON Radiology Routine Subdural hematoma, chronic (HCC) 1 Occurrences starting 11/23/2024 until 12/23/2025 [facility] Work Phone: Comment on above: 1 Occurrences starting 11/23/2024 until 12/23/2025 End: 10-03-2020 CTA CHEST ABDOMEN PELVIS W CONTRAST CTA CHEST ABDOMEN PELVIS W CONTRAST Imaging Routine Aortic valve stenosis, etiology of cardiac valve disease unspecified 1 Occurrences starting 10/03/2020 until 10/03/2020 [facility] Work Phone: Comment on above: 1 Occurrences starting 10/03/2020 until 10/03/2020 CTA CHEST ABDOMEN PE LVIS W CONTRAST CTA CHEST ABDOMEN PELVIS W CONTRAST Imaging Routine Aortic valve stenosis, etiology of cardiac valve disease unspecified 10/03/2020 1:36 PM EDT [facility] Work Phone: ECHO Complete 2D W Doppler W Color ECHO Complete 2D W Doppler W Color Echocardiography Routine 10/17/2020 3:06 PM EDT [facility] Work Phone: EKG 12 lead [facility] Work Phone: Comment on above: Daily until discontinued starting 2020, 2 completed End: 11-07-2022 HOME SLEEP APNEA TEST (HSAT) HOME SLEEP APNEA TEST (HSAT) Procedures Routine IRINEO (obstructive sleep apnea) 1 Occurrences starting 11/07/2021 until 11/07/2022 [facility] Work Phone: Comment on above: 1 Occurrences starting 11/07/2021 until 11/07/2022 Measurement of monoclonal protein concentration [facility] End: 11-19-2025 MR Brain WO contrast MRI BRAIN WO IVCON Radiology Routine Parkinson's disease, unspecified whether dyskinesia present, unspecified whether manifestations fluctuate (HCC) Abnormality of gait Altered mental status, unspecified altered mental status type 1 Occurrences starting 10/20/2024 until 11/19/2025 [facility] Work Phone: Comment on above: 1 Occurrences starting 10/20/2024 until 11/19/2025 End: 04-26-2025 MR Lumbar spine WO contrast MRI LUMBAR SPINE WO IVCON Radiology Routine Spinal stenosis of lumbar region with neurogenic claudication 1 Occurrences starting 03/27/2024 until 04/26/2025 [facility] Work Phone: Comment on above: 1 Occurrences starting 03/27/2024 until 04/26/2025 End: 04-26-2025 MR Shoulder - left WO contrast MRI SHOULDER WO IVCON LEFT Radiology Routine Acute pain of left shoulder due to trauma 1 Occurrences starting 03/27/2024 until 04/26/2025 [facility] Comment on above: 1 Occurrences starting 03/27/2024 until 04/26/2025 End: 02-25-2024 Mri brain brain stem w/o contrast material MRI BRAIN WO IVCON Radiology Routine Other symptoms and signs involving the nervous system 1 Occurrences starting 01/26/2023 until 02/25/2024 [facility] Work Phone: Comment on above: 1 Occurrences starting 01/26/2023 until 02/25/2024 Oxygen therapy [[facility] Data Set] Initiate Oxygen Therapy Protocol Respiratory Care Routine Daily until discontinued starting 10/16/2020 [facility] Work Phone: Comment on above: Daily until discontinued starting 2020 End: 02-19-2023 PAP TITRATION PSG (CPAP, BIPAP, ASV) PAP TITRATION PSG (CPAP, BIPAP, ASV) Procedures Routine IRINEO (obstructive sleep apnea) 1 Occurrences starting 01/20/2022 until 02/19/2023 [facility] Work Phone: Comment on above: 1 Occurrences starting 01/20/2022 until 02/19/2023 End: 06-28-2023 PAP TITRATION PSG (CPAP, BIPAP, ASV) PAP TITRATION PSG (CPAP, BIPAP, ASV) Procedures Routine IRINEO (obstructive sleep apnea) 1 Occurrences starting 05/29/2022 until 06/28/2023 [facility] Work Phone: Comment on above: 1 Occurrences starting 05/29/2022 until 06/28/2023 Patient Education ED Chest Pain, Uncertain Cause [facility] Work Phone: Patient referral [facility] Work Phone: End: 10-03-2020 PREPARE RBC (CROSSMATCH), 2 Units PREPARE RBC (CROSSMATCH), 2 Units Blood Bank Routine Aortic valve stenosis, etiology of cardiac valve disease unspecified 1 Occurrences starting 10/03/2020 until 10/03/2020 [facility] Work Phone: Comment on above: 1 Occurrences starting 10/03/2020 until 10/03/2020 PREPARE RBC (CROSSMATCH), 2 Units PREPARE RBC (CROSSMATCH), 2 Units Blood Bank Routine Aortic valve stenosis, etiology of cardiac valve disease unspecified 10/03/2020 1:41 PM EDT [facility] Work Phone: Spirometry panel Incentive raymundo metry Respiratory Care Routine Every 2hr while awake until discontinued starting 10/16/2020 [facility] Work Phone: Comment on above: Every 2hr while awake until discontinued starting 10/16/2020 End: 04-26-2025 XR Shoulder - left 3 Views XR SHOULDER GENERAL 3V OR MORE AP/TRUE AP/OTHER LEFT Radiology Routine Acute pain of left shoulder 1 Occurrences starting 03/27/2024 until 04/26/2025 [facility] Work Phone: Comment on above: 1 Occurrences starting 03/27/2024 until 04/26/2025 XR Shoulder - left 3 Views XR SHOULDER GENERAL 3V OR MORE AP/TRUE AP/OTHER LEFT Radiology Routine Acute pain of left shoulder 03/27/2024 11:08 AM EST [facility] Immunizations Immunization Date Immunization Notes Care Provider [facility] 02-01-2024 Covid (Spikevax) Dr. Arsh Polk MD Work Phone: [facility] 02-01-2024 influenza, high dose seasonal, preservative-free Romina Flynn MANAGER SOFTWARE DEVELOPMENT.PROP DRAWER Work Phone: [facility] 02-01-2024 influenza virus vacc ine, unspecified formulation Ct (I-Stat) Work Phone: [facility] 03-01-2023 influenza (HD-IIV4) vaccine, age 65+ yr, high dose, quadrivalent, PF (FLUZONE HIGH-DOSE) Arsh Polk MD Work Phone: [facility] 03-01-2023 respiratory syncytia l virus (RSV) vaccine, bivalent (ABRYSVO) Arsh Polk MD Work Phone: [facility] 03-01-2023 influenza virus vacc ine, unspecified formulation Marlen Madrigal APRN.PROP DRAWER Work Phone: [facility] 11-26-2022 tetanus toxoid, redu kavon diphtheria toxoid, and acellular pertussis vaccine, adsorbed Arsh Polk MD Work Phone: [facility] 01-21-2022 influenza, high-dose , quadrivalent vaccine (FLUZONE HIGH DOSE QUADRIVALENT) Arsh Polk MD Work Phone: [facility] 01-21-2022 influenza virus vacc ine, unspecified formulation Kaylee Herrmann PA-C Work Phone: [facility] 01-30-2021 influenza, high-dose , quadrivalent vaccine (FLUZONE HIGH DOSE QUADRIVALENT) Arsh Polk MD Work Phone: [facility] 07-03-2020 COVID-19 vaccine, fu ll dose (MODERNA) Arsh Polk MD Work Phone: [facility] 06-05-2020 COVID-19 vaccine, fu ll dose (MODERNA) Arsh Polk MD Work Phone: [facility] 02-01-2020 influenza, high-dose , quadrivalent vaccine (FLUZONE HIGH DOSE QUADRIVALENT) Arsh Polk MD Work Phone: [facility] 05-11-2019 influenza, high dose seasonal, preservative-free Arsh Polk MD Work Phone: [facility] 02-14-2018 influenza, high dose seasonal, preservative-free Arsh Polk MD Work Phone: [facility] Work Phone: 02-25-2017 influenza, high dose seasonal, preservative-free Arsh Polk MD Work Phone: [facility] 02-20-2016 influenza, high dose seasonal, preservative-free Arsh Polk MD Work Phone: [facility] 03-07-2015 influenza, high dose seasonal, preservative-free Arsh Polk MD Work Phone: [facility] 01-03-2015 pneumococcal conjuga te vaccine, 13 valent Arsh Polk MD Work Phone: [facility] 02-01-2014 influenza, high dose seasonal, preservative-free Arsh Polk MD Work Phone: [facility] Work Phone: 02-28-2013 influenza virus vacc ine, unspecified formulation Arsh Polk MD Work Phone: [facility] 2007 pneumococcal polysaccharide vaccine, 23 valent Arsh Polk MD Work Phone: [facility] Work Phone: 08-01-2004 pneumococcal polysaccharide vaccine, 23 valalecia Polk MD Work Phone: [facility] Work Phone: Payers Date Payer Category Payer Medicare (Managed Care) MMO MEDADVANTAGE HMO Member Subscriber Plan / Payer (Effective 2024-) Name: Axel Serrano Relation to Subscriber: Self Name: Axel Serrano Payer ID: Not on file Type: HMO Address: [place] [id number] 2024 Self-pay [id number] 2023 Unknown [id number] 2019 Unknown MMO MMO MEDICARE SUPPLEMENT [id number] 2019-Present [phone] [place], [place] [address] Indemnity [id number] 2019 Unknown MMO MMO MEDICARE SUPPLEMENT [id number] 2019-Present [phone] [place] [address] Indemnity [id number] 2018 Unknown [id number] 2005 Medicare MEDICARE MEDICAR E A AND B [id number] 2005-Present [phone] [address] [address] [place] [address] Medicare [id number] 2005 Medicare [id number] 2005 Medicare [id number] Unknown [id number] Unknown [id number] 2.16.840.1.460395.3.579.2. 462 Unknown [id number] 2.16.840.1.898897.3.579.2. 462 Unknown [id number] 2.16.840.1.488999.3.579.2. 462 Unknown [id number] 2.16.840.1.349682.3.579.2. 462 Unknown [id number] 2.16.840.1.535087.3.579.2. 462 Unknown [id number] 2.16.840.1.577034.3.579.2. 462 Unknown [id number] 2.16.840.1.356576.3.579.2. 462 Unknown [id number] 2.16.840.1.764258.3.579.2. 462 Unknown [id number] 2.16.840.1.684582.3.579.2. 462 Unknown [id number] 2.16.840.1.406105.3.579.2. 462 Unknown [id number] 2.16.840.1.133200.3.579.2. 462 Unknown [id number] 2.16.840.1.004794.3.579.2. 462 Unknown [id number] 2.16.840.1.508482.3.579.2. 462 Unknown [id number] 2.16.840.1.001065.3.579.2. 462 Unknown [id number] 2.16.840.1.688411.3.579.2. 462 Unknown [id number] 2.16.840.1.119466.3.579.2. 462 Unknown [id number] 2.16.840.1.453679.3.579.2. 462 Unknown [id number] 2.16.840.1.322756.3.579.2. 462 Unknown [id number] 2.16.840.1.173380.3.579.2. 462 Social History Date Type Detail Facility Start: 10-03-2020 End: 11-23-2022 Tobacco smoking status NHIS Former smoker [facility] Start: 10-03-2020 End: 11-23-2022 Tobacco use and exposure Never used [facility] Phone: Start: 10-03-2020 End: 12-26-2024 Alcohol intake Lifetime non-drinker (finding) [facility] Phone: Start: 11-20-2019 End: 09-11-2020 History SDOH Alcohol Frequency 1 [facility] Phone: Start: 1940 Sex Assigned At Not on file [facility] Phone: Start: 10-08-2020 End: 02-25-2022 Exposure to SARS-CoV-2 (event) Not sure [facility] End: 11-27-2003 History of tobacco use Current smoker [facility] End: 11-27-2003 History of tobacco use Cigar Smoker [facility] Start: 07-30-2021 End: 11-28-2024 Alcohol intake Current non-drinker of alcohol (finding) [facility] Start: 11-20-2019 History SDOH Alcohol Std Drinks 98 [facility] Start: 11-20-2019 History SDOH Social Connections Phone 2 [facility] Start: 11-20-2019 History SDOH Social Connections Living 3 [facility] Start: 11-20-2019 History SDOH Financial 5 [facility] Start: 09-05-2015 End: 01-21-2022 Tobacco Comment cigars-6 a day [facility] Start: 10-13-2021 End: 11-17-2022 Tobacco smoking status NHIS Unknown if ever smoked [facility] Start: 01-22-2020 None [facility] Start: 01-22-2020 Spouse/ Significant Other [facility] Start: 01-22-2020 Cigars [facility] Start: 1940 Sex Assigned At Male [facility] Start: 11-20-2019 End: 02-02-2024 History of Social function [facility] Start: 11-20-2019 End: 02-02-2024 Social connection and isolation panel [facility] Start: 04-10-2012 How often do you attend muslim or bahai services? Patient refused [facility] Do you belong to any clubs or organizations such as muslim groups, unions, frasli.do or athletic groups, or school groups? No [facility] Are you now , , , , never or living with a partner? [facility] How often to you hav e a drink containing alcohol? Never [facility] Do you feel stress - tense, restless, nervous, or anxious, or unable to sleep at night because your mind is troubled all the time - these days [OSQ] Only a little [facility] (I/We) worried wheth er (my/our) food would run out before (I/we) got money to buy more. Never true [facility] Medical Equipment Procedure Code Equipment Code Equipment Origin al Text Equipment Identifier Dates Stent Inlay Opti ma 6fr Taper [place] Green Polymer Phreecoat 26cm [facility] - [id number] Start: 09-10-2015 [id number], [id number] Start: 07-22-2006 Comment on above: Test blood [...] Total score [AUDIT-C] 0 12/27/19 9:47 AM Andi Moore MA [facility] 06-04-2014 Are you deaf, or do you have serious difficulty hearing No 06/04/2014 8:08 AM Leatha Fleming LPN No [facility] 06-04-2014 Are you blind, or do you have serious difficulty seeing, even when wearing glasses No 06/04/2014 8:08 AM Leatha Fleming LPN No [facility] 06-04-2014 Do you have serious difficulty walking or climbing stairs No 06/04/2014 8:08 AM Leatha Fleming LPN No [facility] 06-04-2014 Do you have difficul ty dressing or bathing No 06/04/2014 8:08 AM Leatha Fleming LPN No [facility] 06-04-2014 Because of a physica l, mental, or emotional condition, do you have difficulty doing errands alone such as visiting a physician's office or shopping No 06/04/2014 8:08 AM Leatha Fleming LPN No [facility] Mental Status Date Assessment Result Facility 09-03-2024 Cognitive function Voice/Name [facility] Work Phone: 11-12-2021 Cognitive function Voice/Name [facility] Work Phone: 06-04-2014 Because of a physica l, mental, or emotional condition, do you have serious difficulty concentrating, remembering, or making decisions No 06/04/2014 8:08 AM Leatha Fleming LPN No [facility] Clinical Notes 08-19-2015 to 02-26-2025 Telephone Encounter - Marline Roach MA - 01/15/2025 5:05 PM EDTTelephone Encounter - Marline Roach MA - 01/15/2025 5:05 PM EDTTelephone Encounter - Romina Flynn APRN.PROP DRAWER - 01/15/2025 4:57 PM EDT Note Date & Type Note Facility 02-26-2025 Note HNO ID: [id number] Author: DELMA TOBIAS LPN Service: ? Author Type: Licensed Nurse Type: Progress Notes Filed: 02/26/2025 14:02 Note Text: Aranesp injection deferred, treatment parameter not met, hgb 11.3 Delma Tobias LPN [facility] 02-26-2025 Note [facility] 01-30-2025 Note [facility] 01-24-2025 Note HNO ID: [id number] Author: DELMA TOBIAS LPN Service: ? Author Type: Licensed Nurse Type: Progress Notes Filed: 01/24/2025 16:20 Note Text: Patient here for injection of Aranesp. Given SQ in right arm. Patient tolerated well. Delma Tobias LPN [facility] 01-15-2025 Telephone encounter Note Order faxed to [employer] 01-15-2025 Miscellaneous Notes Order faxed to [employer] Not sure what they carry. Order written for DME lift assist. Patient last visit with Dr Polk on 01/03/25 for Medicare wellness exam. Has some mention of falls/balance issues. documented in this encounter [facility] 01-15-2025 Telephone encounter Note Not sure what they carry. Order written for DME lift assist. [facility] 01-15-2025 Telephone encounter Note Patient last visit with Dr Polk on 01/03/25 for Medicare wellness exam. Has some mention of falls/balance issues. [facility] 01-12-2025 Telephone encounter Note Prescription Refill Information [...] visit with this provider/department: Yes- 01/30/25 with for ne issue and concerns and has 6 month follow up then for 07/16/25 with WANGEL Requested Prescriptions Pending Prescriptions Disp Refills carbidopa-levodopa (SINEMET 25-100) 25-100 mg per tablet [Pharmacy Med Name: Carbidopa-Levodopa Oral Tablet 25-100 MG] 90 tablet 0 Sig: Take 1 tablet by mouth at 7AM, Noon and 5PM. Deborah Sykes LPN January 12, 2025 2:15 PM [facility] 01-12-2025 Miscellaneous Notes Prescription Refill Information The [...] visit with this provider/department: Yes- 01/30/25 with for ne issue and concerns and has 6 month follow up then for 07/16/25 with WPaulineN Requested Prescriptions Pending Prescriptions Disp Refills carbidopa-levodopa (SINEMET 25-100) 25-100 mg per tablet [Pharmacy Med Name: Carbidopa-Levodopa Oral Tablet 25-100 MG] 90 tablet 0 Sig: Take 1 tablet by mouth at 7AM, Noon and 5PM. Deborah Sykes LPN January 12, 2025 2:15 PM documented in this encounter [facility] 01-03-2025 Instructions Arsh Polk MD - 01/03/2025 [...] in six months documented in this encounter [facility] 01-03-2025 Note [facility] 01-03-2025 History of Presen t illness Narrative [...] as PCP - General (Family Medicine) Lexi Winkler APRN.PROP DRAWER as Automotive Instructor (Family Medicine) Romina Flynn APRN.PROP DRAWER as Automotive Instructor (Family Medicine) Dr Spaulding, podiatry. Dr Otto, neurology Yeyo Bailey, neurosurgery [facility], cardiology. Dr Head, optometry. Dr [...] ADDITIONAL INFO: Annual Wellness Exam: - Axel Serrano describes general health as don. - Physical therapy sessions twice weekly, lasting approximately 45 minutes each. - Axel denies alcohol consumption. - Axel reports feeling off balance; uses a walker at home and occasionally a wheelchair. - One recent fall described as a controlled sit while attempting to get into a van. [...] tobacco use. - Axel reports hearing is bad; does not wear hearing aids. - Axel [...] unspecified (I35.0) 5. 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 (I25.10) - Blood pressure today 126/86 after sitting; no chest pain or shortness of breath. - Continue current management. 6. Mild dementia without behavioral disturbance, psychotic disturbance, mood disturbance, or anxiety, unspecified dementia type ([facility]) (F03.A0) - Continue Exelon. per neurology 7. Lymphoma in remission ([facility]) (C85.9A) - doing well. 8. Obesity, Class II, BMI 35-39.9 (E66.812) - Weight loss of approximately 19 lbs since August; previously weighed 305 lbs, now 261 lbs. - Encourage adequate protein intake to support healing; advised to continue Ensure. 9. Tremor, essential (G25.0) 10. Parkinson's disease, unspecified whether dyskinesia present, unspecified whether manifestations fluctuate ([facility]) (G20.A1) - Tremor slightly worse; continue Sinemet and gabapentin. 11. Subdural hematoma, chronic ([facility]) (I62.03) - Reviewed MRI from October showing interval development of bilateral subdural collections; neurosurgery follow-up with Yeyo Mejía NP, and repeat CT scan scheduled in February. 12. Diabetic polyneuropathy associated with type 2 diabetes mellitus ([facility]) (E11.42) 13. Type 2 diabetes mellitus with [...] (S91.302A) - Being monitored by Dr. Spaulding, manager of software development; follow-up in a couple of weeks. Arsh Polk MD Recording using [employer] software for draft documentation of the visit was discussed with the patient/authorized airport representative; all questions welcomed and answered. Patient/authorized airport representative agreed to proceed documented in this encounter [facility] 12-28-2024 Telephone encounter Note noted [facility] 12-28-2024 Miscellaneous Notes noted Yun [facility] called in and reports she did [...] the 40s and he had been drowsy. [facility] heart group decreased his Metoprolol from 50 [...] a call back unless any new orders. Varsha Carlson RN documented in this encounter [facility] 12-27-2024 Telephone encounter Note Yun [facility] called in and reports she did [...] the 40s and he had been drowsy. [facility] heart group decreased his Metoprolol from 50 mg BID to 25 mg BID. When the Pt was in to see Hematology on 12/26/24 Yneny Bill NP discontinued the Metoprolol. Yun report [...] a call back unless any new orders. Varsha Carlson, RN [facility] 12-26-2024 Note HNO ID: [id number] Author: MARAL BRUSH LPN Service: ? Author Type: Licensed Nurse Type: Progress Notes Filed: 12/26/2024 09:48 Note Text: Injection deferred, parameters not met HGB 10.2 Maral Brush LPN [facility] 12-26-2024 History of Presen t illness Narrative Injection deferred, parameters not met HGB 10.2 Maral Brush LPN documented in this encounter [facility] 12-26-2024 Note [facility] 12-26-2024 History of Presen t illness Narrative Progress Note Axel Serrano 1940 Encounter date: 12/26/2024 HPI: Axel Serrano is a 84 year old gentleman with PMHx o T2DM, Parkinson's, HTN, HLD, aortic stenosis, CKD, IRINEO, TIA, anemia, and DLBCL s/p CALGB protocol 54057: 6 cycles R-EPOCH until September 2006 and [...] See Comments Hyperkalemia Atorvastatin Myalgia Pravastatin Myalgia Xfdoitm-Mfo-Dkk Red* Myalgia FAMILY HISTORY Problem Relation Age [...] possible aranesp in 1 month. Yenny Bill APRN.PROP DRAWER I spent a total of 30 minutes on the date of the service which included preparing to see the patient, lfov-sf-ypcn patient care, completing clinical documentation, obtaining and/or [...] of this patient. documented in this encounter [facility] 12-20-2024 Telephone encounter Note Jerry was notified Gwen Bear MA [facility] 12-20-2024 Miscellaneous Notes Jerry was notified Gwen Bear MA Ok. See if they can call with hr at next ov. Make sure not symptomatic. Jerry with [facility] PT calls with PT POC. PT will see pt twice a week x 3 weeks for functional mobility. Also pt's HR was 43 today. Pt was asymptomatic. Leatha Jansen LPN documented in this encounter [facility] 12-19-2024 Telephone encounter Note Ok. See if they can call with hr at next ov. Make sure not symptomatic. [facility] 12-19-2024 Telephone encounter Note Jerry with [facility] PT calls with PT POC. PT will see pt twice a week x 3 weeks for functional mobility. Also pt's HR was 43 today. Pt was asymptomatic. Leatha Jansen LPN [facility] 12-12-2024 Note [facility] 12-11-2024 Telephone encounter Note Prescription Refill Information [...] Restrepo LPN December 11, 2024 3:15 PM [facility] 12-11-2024 Miscellaneous Notes Prescription Refill Information The [...] 2024 3:15 PM documented in this encounter [facility] 11-30-2024 Telephone encounter Note Notified of such. [facility] 11-30-2024 Miscellaneous Notes Notified of such. Sorry, it looks like it didn't go through, resent phoned asking if [facility]ito Flynn office faxed the order for the Skin Barrier paste to the pharmacy or where did office fax it to? Where does go to pick it up? [facility] does not have the order. Please advise and phone with reply. [phone] documented in this encounter [facility] 11-30-2024 Telephone encounter Note Order was faxed to [facility] home health number provided as requested. [facility] 11-30-2024 Miscellaneous Notes Order was faxed to [facility] home health number provided as requested. Please fax order to other organization Hayley from [facility] Home Health calling asking for another order for home health please. Received one for [facility] home care. Please fax to [phone]. Pending order needs diagnosis, for non [facility] home health. Please advise documented in this encounter [facility] 11-30-2024 Telephone encounter Note Please fax order to other organization [facility] 11-30-2024 Telephone encounter Note Sorry, it looks like it didn't go through, resent [facility] 11-29-2024 Telephone encounter Note Hayley from [facility] Home Health calling asking for another order for home health please. Received one for [facility] home care. Please fax to [phone]. Pending order needs diagnosis, for non [facility] home health. Please advise [facility] 11-29-2024 Telephone encounter Note phoned asking if [facility] Flynn office faxed the order for the Skin Barrier paste to the pharmacy or where did office fax it to? Where does go to pick it up? [facility] does not have the order. Please advise and phone with reply. [phone] [facility] 11-29-2024 Note HNO ID: [id number] Author: DELMA TOBIAS LPN Service: ? Author Type: LICENSED NURSE Type: Progress Notes Filed: 11/29/2024 09:22 Note Text: Hgb 10.1 Treatment parameter not met. Aranesp injection deferred. Delma Tobias LPN [facility] 11-29-2024 History of Presen t illness Narrative Hgb 10.1 Treatment parameter not met. Aranesp injection deferred. Delma Tobias LPN documented in this encounter [facility] 11-28-2024 Telephone encounter Note See other encounter, patient requested [facility] home health, referral was faxed there. Marline Roach MA November 28, 2024 2:34 PM [facility] 11-28-2024 Miscellaneous Notes See other encounter, patient requested [facility] home health, referral was faxed there. Marline Roach MA November 28, 2024 2:34 PM Thank you for the referral of your patient to [facility]. At this time, we are at capacity and are unable to accept your patient. In order to help your patient receive quality home care, we have included reputable agencies that service this area: [facility] - , [place] [facility] ([facility] Phone -[phone] . Please contact this agency and they will work with your patient to arrange timely services. Thank you, CAROLYNE Cruz 11/28/2024 11:58 AM documented in this encounter [facility] 11-28-2024 Telephone encounter Note Patient and requested orders for home health be faxed to [facility] last time. Office note, face sheet, and order were faxed. Marline Roach MA November 28, 2024 12:11 PM [facility] 11-28-2024 Miscellaneous Notes Patient and requested orders for home health be faxed to [facility] last time. Office note, face sheet, and order were faxed. Marline Roach MA November 28, 2024 12:11 PM documented in this encounter [facility] 11-28-2024 Telephone encounter Note Thank you for the referral of your patient to [facility]. At this time, we are at capacity and are unable to accept your patient. In order to help your patient receive quality home care, we have included reputable agencies that service this area: [facility] , [place] [facility] Phone -[phone] . Please contact this agency and they will work with your patient to arrange timely services. Thank you, CAROLYNE Cruz 11/28/2024 11:58 AM [facility] 11-28-2024 Instructions Romina Flynn APRN.CNP - 11/28/2024 11:49 AM EDT - Apply the terbinafine antifungal cream to the affected areas on both legs twice daily for 30 days; once the rash has cleared, continue using it for an additional week. Prescription sent to [facility] pharmacy. - Use a barrier cream on the pressure sore on your buttocks to protect and soothe the skin. - Place an sds-wapla-edxic foam cushion on your wheelchair seat to relieve pressure on the sore. - A referral has been sent for a home health nurse to visit and check and dress your leg and buttock sores. Terbinafine 2 x day. - Continue wearing your compression stockings as tolerated. documented in this encounter [facility] 11-28-2024 Note [facility] 11-28-2024 History of Presen t illness Narrative [...] Replacement ALLERGIES Mai Inhibitors, Atorvastatin, Pravastatin, and Ruesrbf-Cej-Ewq Reductase Inhibitors MEDICATIONS Current Outpatient Medications Medication [...] injury of buttock, stage 2, unspecified laterality ([facility]) (L89.302) - Erythematous area with loss of [...] disease without dyskinesia or fluctuating manifestations (HCC) (G20.A1) - Diagnosed earlier this year; patient [...] of the infection. - Prescription sent to [facility] pharmacy. Discussed treatment plan and patient voices understanding. Patient's questions answered appropriately. Medications and potential side effects were discussed and patient voices understanding. Return to the office as scheduled or as needed for worsening/no improvement. Romina Flynn APRN.PROP DRAWER documented in this encounter [facility] 11-27-2024 Telephone encounter Note reports pt has 1 open pressure ulcer on left buttock, 2 open pressure ulcers on right buttock, all approx size of a pea. Reports whole buttock is red the last couple weeks. Ulcers maybe started 4 weeks ago and has gotten worse the past week. is putting desitin cream on the open areas. contacted pcp office to ask for [facility] nurse to start visiting again, since HH nurse was able to clear pressure ulcers up on same area after [facility] visit in Jun. Protocol recommends see provider [...] medication about 3 weeks ago. Protocols used: Qxitx-RWKEA-BL [facility] 11-27-2024 Miscellaneous Notes reports pt has 1 open pressure ulcer on left buttock, 2 open pressure ulcers on right buttock, all approx size of a pea. Reports whole buttock is red the last couple weeks. Ulcers maybe started 4 weeks ago and has gotten worse the past week. is putting desitin cream on the open areas. contacted pcp office to ask for [facility] nurse to start visiting again, since HH nurse was able to clear pressure ulcers up on same area after [facility] visit in Jun. Protocol recommends see provider [...] medication about 3 weeks ago. Protocols used: Hhmrm-YTQSZ-OH documented in this encounter [facility] 11-23-2024 Instructions Yeyo Bailey APRN.CNP - 11/23/2024 1:35 PM EDT - Continue taking your aspirin as prescribed. - Schedule a head CT scan in about three months for comparison; the medical affairs leader will set this up before you leave today. - Plan a virtual follow-up (by phone or via [employer]) to review your CT results so you won t need to return in person. - Follow up with your eye doctor in about one month to reassess your vision. documented in this encounter [facility] 11-23-2024 History of Presen t illness Narrative NEUROSURGERY FOLLOW UP OFFICE NOTE Yeyo Bailey APRN.CNP Date of visit: November 23, 2024 Patient Name: Mr.Merven Junior Serrano Date of : 1940 Current Age: [age] year old Sex: male MRN/E# [id number] Last Office Visit: Hospital follow-up CHIEF COMPLAINT: Patient presents with: Established Patient HPI: The patient presents for a hospital follow up with imaging (CT B) for evaluation. This is an 84-year-old male with a PMHx of Parkinson's, DM, CAD, CKD, B-cell lymphoma s/p chemotherapy, anemia, A-fib (ASA) who was seen for consult at [facility] on 10/25/[address] Reese. Patient underwent [...] See Comments Hyperkalemia Atorvastatin Myalgia Pravastatin Myalgia Wjaxakp-Evn-Yai Red* Myalgia Current Outpatient Medications Medication Sig [...] AFib. Yeyo Bailey APRN-BRIAN Neurosurgery Nurse Practitioner [facility] General FOLLOW UP: Return in about 3 months (around 02/23/2025) for review of imaging and plan of care. Please Note: This note has been partially generated using [employer], a speech recognition software program, and may contain errors including punctuation, grammar, spelling, gender, and inappropriate words or phrases that pertain to the system. Recording using [employer] software for draft documentation of the visit was discussed with the patient/authorized airport representative; all questions welcomed and answered. Patient/authorized airport representative agreed to proceed documented in this encounter [facility] 11-23-2024 Note HNO ID: [id number] Author: YEYO BAILEY APRN.CNP Service: ? Author Type: Nurse Practitioner Type: Progress Notes Filed: 11/23/2024 13:35 Note Text: NEUROSURGERY FOLLOW UP OFFICE NOTE Yeyo Bailey APRN.CNP Date of visit: November 23, 2024 Patient Name: Mr.Merven Junior Serrano Date of : 1940 Current Age: [age] year old Sex: male MRN/E# [id number] Last Office Visit: Hospital follow-up CHIEF COMPLAINT: Patient presents with: Established Patient HPI: The patient presents for a hospital follow up with imaging (CT B) for evaluation. This is an 84-year-old male with a PMHx of Parkinson's, DM, CAD, CKD, B-cell lymphoma s/p chemotherapy, anemia, A-fib (ASA) who was seen for consult at [facility] on 10/25/[address] Reese. Patient underwent [...] See Comments Hyperkalemia Atorvastatin Myalgia Pravastatin Myalgia Iqxhcnr-Jcy-Ren Red* Myalgia Current Outpatient Medications Medication Sig [...] hr tablet Ta (more content not included)... [facility] 11-09-2024 History of Presen t illness [...] PATIENT PRESENTS WITH AN IMPLANTABLE OR ATTACHED MORALE OFFICER: No RADIOLOGY DEPARTMENT: CT; Exam(s) Completed: Brain PERIPHERAL IV DATA: Not applicable SIGNED BY: RT Sharan(R) November 09, 2024 3:02 PM documented in this encounter [facility] 11-09-2024 Note [facility] 11-01-2024 Note [facility] 11-01-2024 History of Presen t illness Narrative [...] Maral Brush LPN documented in this encounter [facility] 10-25-2024 Telephone encounter Note Patient/spouse contacted by provider please see separate TE. Deborah Sykes LPN [facility] 10-25-2024 Miscellaneous Notes Patient/spouse contacted by provider please see separate TE. Deborah Sykes LPN TC to patient. Unable to reach. Please transfer to ext. [phone] when returns call to office. Deborah Sykes LPN documented in this encounter [facility] 10-25-2024 Telephone encounter Note Contacted by radiology [...] and plt). Patient will be going to [facility]. I have contacted their ER and notified them of patient with details of history provided. D/w pt and pt en route now. Arsh Otto MD [facility] 10-25-2024 Miscellaneous Notes Contacted by radiology indicating [...] Arsh Otto MD documented in this encounter [facility] 10-25-2024 Telephone encounter Note TC to patient. Unable to reach. Please transfer to ext. [phone] when returns call to office. Deborah Sykes LPN [facility] 10-25-2024 History of Presen t illness Narrative [...] PATIENT PRESENTS WITH AN IMPLANTABLE OR ATTACHED MORALE OFFICER: No RADIOLOGY DEPARTMENT: MR; Exam(s) Completed: Head: Routine Brain. Lavender Administered: No PERIPHERAL IV DATA: Not applicable SIGNED BY: Addie Carrillo RT(R) October 25, 2024 12:00 PM documented in this encounter [facility] 10-25-2024 Note [facility] 10-20-2024 Note [facility] 10-20-2024 History of Presen t illness Narrative [...] rotator cuff without tear. Pt admitted to [facility] in April for AMS - was there [...] no aute changes. Modified MOCA: Immediate recall: 09/11 Number repeat: 06/11 Sentence repeat: 06/11 Serial 7s: 06/12 Abstract: [...] whether dyskinesia present, unspecified whether manifestations fluctuate ([facility]) - ICD9: 332.0, ICD10: G20.A1 (primary diagnosis) 2. Abnormality of gait - ICD9: 781.2, ICD10: R26.9 3. Altered mental status, unspecified altered mental status type - ICD9: 780.97, ICD10: R41.82 Patient with known history of PD, for which he has been on Sinemet since at least 2022 from review of records. Admitted to [facility] for AMS. Limited records available for review [...] restart as later reports they told him he does not need it. Reviewed with patient and med conditions associated [...] which included preparing to see the patient, cydo-tu-khbr patient care, completing clinical documentation, obtaining and/or reviewing separately obtained history, performing a medically appropriate examination, counseling and educating the patient/family/caregiver, ordering medications, tests, or procedures, and communicating results to the patient/family/caregiver. documented in this encounter [facility] 10-20-2024 Note HNO ID: [id number] Author: DEBORAH SYKES LPN Service: ? Author Type: LICENSED NURSE Type: Progress Notes Filed: 10/20/2024 18:25 Note Text: [facility] 10-04-2024 Note HNO ID: [id number] Author: DELMA TBOIAS LPN Service: ? Author Type: LICENSED NURSE Type: Progress Notes Filed: 10/04/2024 10:05 Note Text: Aranesp injection deferred, Hgb 10.6. Treatment parameter not met. Delma Tobias LPN [facility] 10-04-2024 History of Presen t illness Narrative Aranesp injection deferred, Hgb 10.6. Treatment parameter not met. Delma Tobias LPN documented in this encounter [facility] 10-04-2024 Note [facility] 10-04-2024 History of Presen t illness Narrative Progress Note Axel Serrano 1940 Encounter date: 10/04/2024 HPI: Axel Pacheco Yue is a 84 year old gentleman with PMHx o T2DM, Parkinson's, HTN, HLD, aortic stenosis, CKD, IRINEO, TIA, anemia, and DLBCL s/p CALGB protocol 87150: 6 cycles R-EPOCH until September 2006 and [...] without any concerning findings. No pain since. It just felt weird Spouse questioning if he needs to stay on eliquis. She notes that pt had holter monitor for 2 weeks, she was told that it did not show any episodes of afib. No current access to [facility] notes or clinical information. With patients hx [...] See Comments Hyperkalemia Atorvastatin Myalgia Pravastatin Myalgia Ozaagvr-Dhy-Xfk Red* Myalgia FAMILY HISTORY Problem Relation Age [...] possible aranesp in 1 month. Yenny Bill APRN.PROP DRAWER I spent a total of 30 minutes on the date of the service which included preparing to see the patient, tbcc-pc-wxfz patient care, completing clinical documentation, obtaining and/or [...] of this patient. documented in this encounter [facility] 09-25-2024 Note [facility] 09-25-2024 History of Presen t illness Narrative Patient presents with: 6 Month Exam HPI: Patient presents today for office visit for routine 6 month follow up. Hospitalized in [facility] back in April. Saw Gillian Flynn for [...] for now. Seen in Er on 09/03. [place] a jolt with left arm pain. ACS [...] See Comments Hyperkalemia Atorvastatin Myalgia Pravastatin Myalgia Qiergky-Qsc-Bdj Red* Myalgia PAST MEDICAL HISTORY Diagnosis Date [...] Pulse (!) 58 Ht 177.8 cm (5' 10) Wt 126.2 kg (278 lb 3.2 oz) [...] current medications 7. 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 16, 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 August 09, 2024 12:45pm HLD (hyperlipidemia) chronic Apri l 2024 12:45pm Paroxysmal atrial fibrillation with RVR chronic August 09, 2024 12:45pm Parkinson disease acute November 11:06am Atherosclerotic heart disease of [place] coronary artery without angina pectoris chronic November 14, 2024 11:06am CHF (congestive heart failure), NYHA class III chronic November 14, 2024 11:06am History of transcatheter aortic valve replacement (TAVR) October 16, 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 November 14, 2024 11:06am HLD (hyperlipidemia) chronic November 14, 2024 11:06am Paroxysmal atrial fibrillation with RVR chronic November 14, 2024 11:06am [facility] Work Phone: [phone] Telephone encounter Note* Telephone Encounter - Lizzette [...] Restrepo LPN August 07, 2024 1:52 PM [facility]03-31-2025 Miscellaneous Notes* Telephone Encounter - Lizzette Restrepo [...] 07, 2024 1:52 PM [facility]25 NoteHNO ID: [id number] Author: MARAL BRUSH LPN Service: ? 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 [facility] Work Phone: [phone]) 544-668203-17-2025 Miscellaneous Notes* Telephone Encounter - Mariola Mckeon [...] if it is Q2WK. [facility] Telephone encounter Note * Telephone Encounter - Yenny Bill - 07/24/2024 2:03 PM EDT Monthly is correct [facility] Work Phone: [phone]) 363-220403-17-2025 Telephone encounter Note* Telephone Encounter - Mariola Mckeon - 07/24/2024 1:45 PM EDT Please advise if Aranesp is QMO or Q2WK. 08/07 was put in for QMO. I updated future appts, however, am now questioning if it is Q2WK. [facility]03[facility]06[facility]20[facility] History of Present illness Narrative* Liliam Holt [...] were you homeless or living in a intermediate (including now)?: No Transportation Needs In the [...] In the past 12 months has the electric, gas, oil, or water company threatened to shut off services in your [...] 13, 2024 11:52 AM [facility] Telephone encounter Note * Telephone Encounter - Liliam Holt RN - 07/13/2024 11:14 AM EST MyChart message sent [facility]03-06-2025 Miscellaneous Notes* Telephone Encounter - Liliam Holt RN - 07/13/2024 11:14 AM EST MyChart message sent documented in [facility] encounter[facility]2025 [facility]03-03-2025 History of Present illness Narrative* Maral Brush LPN - 07/10/2024 11:06 AM EST aranesp injection administered, right arm, tolerated well, no immediate adverse reactions noted. See office notes Maral Brush LPN documented in this encounter[facility]03[facility]2025 [facility]03[facility]2025 History of Present illness Narrative* Yenny Bill - 07/10/2024 10:42 AM EST Progress Note Axel Serrano 1940 Encounter date: 07/10/2024 HPI: Axel Serrano is a 84 year old gentleman with PMHx o T2DM, Parkinson's, HTN, HLD, aortic stenosis, CKD, IRINEO, TIA, anemia, and DLBCL s/p CALGB protocol 00627: 6 cycles R-EPOCH until September 2006 and [...] See Comments Hyperkalemia Atorvastatin Myalgia Pravastatin Myalgia Tqwxhyl-Idz-Wij Red* Myalgia FAMILY HISTORY Problem Relation Age [...] possible aranesp in 1 month. Yenny Bill APRN.PROP DRAWER I spent a total of 30 minutes on the date of the service which included preparing to see the patient, gksa-zt-hmkf patient care, completing clinical documentation, obtaining and/or [...] evaluation of this patient. [facility] Telephone encounter Note * Telephone Encounter - Kaylee Villa LPN - 06/26/2024 9:51 AM EST Patient's is aware his Hgb was 11.2 last checked. Okay to wait until 07/10/2024 fo next injection. Kaylee Villa LPN [facility]02-17-2025 Miscellaneous Notes* Telephone Encounter - Kaylee Villa [...] on 07/10. Please advise. documented in this encounterPar[facility]25 Telephone encounter Note * Telephone Encounter - Mariola Mckeon - 06/26/2024 9:41 AM EST Spouse called stating patient is ill and will not be in for lab/inj today. She is asking if it is okay to wait until next appointment on 07/10. Please advise. [facility] Work Phone: [phone]) 406-318802-11-2025 Telephone encounter Note* Telephone Encounter - Mery Helm RN - 06/20/2024 4:24 PM EST Phoned [facility]un and given pcp verbal approval. [facility]02-11-2025 Miscellaneous Notes* Telephone Encounter - Mery Helm RN - 06/20/2024 4:24 PM EST Phoned Yun and given pcp verbal approval. * Telephone Encounter - Arsh Polk MD - 06/20/2024 3:14 PM EST Ok to do * Telephone Encounter - Lulu Calabrese LPN - 06/20/2024 3:08 PM EST Yun with [facility], nursing called to let you know she [...] order. Lulu Calabrese LPN documented in this encounterParma [facility]02[facility]25 Telephone encounter Note * Telephone Encounter - Arsh Polk MD - 06/20/2024 3:14 PM EST Ok to do [facility]02-11-2025 Telephone encounter Note* Telephone Encounter - Lulu Calabrese LPN - 06/20/2024 3:08 PM EST Yun with [facility], nursing called to let you know she [...] Please advise Yun with a verbal order. Lluu Calabrese LPN [facility]01-29-2025 Telephone encounter Note* Telephone Encounter - Kaia Liu MA - 06/07/2024 3:37 PM EST Placed call to Yun with home care. No answer. Left detailed message on her confidential line giving verbal ok for orders below. Advised her to call back with any further questions and/or concerns. Kaia Liu MA [facility]01-29-2025 Miscellaneous Notes* Telephone Encounter - Kaia Liu [...] RN - 06/07/2024 2:53 PM EST Yun- [facility]- reports she saw patient today and [...] on Wednesday? Please phone Yun with verbal: [phone] Patient uses [facility] in [place] documented in this encounterParma [facility]01-29-2025 Telephone encounter Note * Telephone Encounter - Arsh Polk MD - 06/07/2024 3:14 PM EST Ok for ua and c and s, wound care and additional orders as below. Take lasix 40 mg extra once a day for two days, if continues or worsens, needs seen [facility]01-29-2025 Telephone encounter Note* Telephone Encounter - Mery Helm RN - 06/07/2024 2:53 PM EST Yun- [facility]- reports she saw patient today and [...] on Wednesday? Please phone Yun with verbal: [phone] Patient uses [facility] in [place]. [facility]01-24-2025 Telephone encounter Note* Telephone Encounter - Romina [...] Asher LPN June 02, 2024 11:17 AM [facility]01-24-2025 Miscellaneous Notes* Telephone Encounter - Romina Asher [...] 02, 2024 11:17 AM documented in this encounterParma Community [facility] Hospital01-24-2025 Telephone encounter Note * Telephone Encounter - Eda Gabriel MSW - 06/02/2024 9:34 AM EST Sw spoke with patient spouse regarding patient home care assistance needs. Spouse reports that patient currently has [facility] HH that is coming out to see patient for home care. Sw noted [facility], [facility], and [facility] for home sales service professional local options. Sw also noted [facility] and [place] resource guide for home care, support group, and skilled nursing care information. Sw and spouse also discussed home delivered meal options. Spouse took down this RUBIN direct number for any further questions . [facility]01-24-2025 Miscellaneous Notes* Telephone Encounter - Eda Gabriel MSW - 06/02/2024 9:34 AM EST Sw spoke with patient spouse regarding patient home care assistance needs. Spouse reports that patient currently has [facility] HH that is coming out to see patient for home care. Sw noted [facility], [place] [facility], and [facility] for home sales service professional local options. Sw also noted [facility] and [facility] resource guide for home care, support group, and keno terminal operator care information. Sw and spouse also discussed home delivered meal options. Spouse took down this RUBIN direct number for any further questions . documented in this encounterParma [facility] Hospital01-23-2025 Instructions* Patient Instructions* Romina Flynn APRN.CNP - 06/01/2024 4:05 PM EST 1) Keep appt. With Dr. Polk in September 2) Make cardiology appt. About whether Xarelto is a good idea with falls and dementia 3) DME request printed for hospital bed and mattress/ gmji-gwc-zvu table and trapeze 4) foster care social worker consult for resources documented in this encounterParma [facility]01-23-2025 [facility]01[facility] History of Present illness Narrative* Romina Flynn APRN.CNP - 06/01/2024 3:29 PM EST This is a 84 year old male who presents today with: Patient presents with: Hospital F/U HISTORY OF PRESENT ILLNESS: xAel Serrano is a 84 year old male. [...] Replacement ALLERGIES Mai Inhibitors, Atorvastatin, Pravastatin, and Njakkeo-Iep-Nsp Reductase Inhibitors MEDICATIONS Current Outpatient Medications Medication [...] as needed for worsening/no improvement. Romina Flynn APRN.PROP DRAWER documented in this encounterParma Community [facility] Hospital01-23-2025 Telephone encounter Note * Telephone Encounter - Romina Flynn APRN.CNP - 06/01/2024 1:51 PM EST Patient was seen at [facility] for delirium, A-fib with rapid ventricular response [...] creatinine 1.89, glucose 167 Medications were reconciled. [facility]01-23-2025 Miscellaneous Notes* Telephone Encounter - Romina Flynn APRN.CNP - 06/01/2024 1:51 PM EST Patient was seen at [facility] for delirium, A-fib with rapid ventricular response [...] 167 Medications were reconciled. documented in this encounterParma Community [facility] Hospital01-20-2025 NoteMount Carmel [facility]01-20-2025 History of Present illness Narrative* Yenny Bill - 05/29/2024 10:27 AM EST Progress Note Axel Serrano 1940 Encounter date: 05/29/2024 HPI: Axel Serrano is a 84 year old gentleman with PMHx o T2DM, Parkinson's, HTN, HLD, aortic stenosis, CKD, IRINEO, TIA, anemia, and DLBCL s/p CALGB protocol 69904: 6 cycles R-EPOCH until September 2006 and [...] See Comments Hyperkalemia Atorvastatin Myalgia Pravastatin Myalgia Otwxnpb-Yya-Esl Red* Myalgia FAMILY HISTORY Problem Relation Age [...] possible aranesp in 1 month. Yenny Bill APRN.PROP DRAWER I spent a total of 30 minutes on the date of the service which included preparing to see the patient, lhqq-oo-zrih patient care, completing clinical documentation, obtaining and/or [...] evaluation of this patient. documented in this encounterParma Community [facility] Hospital01-20-2025 NoteHNO ID: [id number] Author: MARAL BRUSH LPN Service: ? Author Type: LICENSED NURSE Type: Progress Notes Filed: 05/29/2024 10:04 Note Text: Injection deferred, parameters not met HGB 11.2 [facility] History of Present illness Narrative* Maral Brush LPN - 05/29/2024 10:03 AM EST Injection deferred, parameters not met HGB 11.2 Maral Brush LPN documented in this encounterParma Community [facility] Hospital01-14-2025 Telephone encounter Note * Telephone Encounter - Arsh Polk MD - 05/23/2024 4:06 PM EST noted [facility]01-14-2025 Miscellaneous Notes* Telephone Encounter - Arsh Polk MD - 05/23/2024 4:06 PM EST noted * Telephone Encounter - Varsha Carlson RN - 05/23/2024 2:45 PM EST Jerry PT with [facility] called in and reports he will see the Pt twice a week for 4 weeks for functional mobility training. He is calling OT POC and states they are going to see Pt once this week, then twice a week for 3 weeks for activities of daily living. States he does not need a call back. documented in this encounterParma [facility]01-14-2025 Telephone encounter Note * Telephone Encounter - Varsha Carlson RN - 05/23/2024 2:45 PM EST Jerry PT with [facility] called in and reports he will see the Pt twice a week for 4 weeks for functional mobility training. He is calling OT [facility] and states they are going to see Pt once this week, then twice a week for 3 weeks for activities of daily living. States he does not need a call back. [facility]01-13-2025 Telephone encounter Note* Telephone Encounter - Steffany Hernandez RN - 05/22/2024 1:45 PM EST Yun from [facility] calling to update Dr. Polk as she saw pt today for his admission assessment. Pt on 4 new meds-entered as med updates. Pt was prescribed Metoprolol Succinate ER 24 hr 50 mg tablets. (Pt was on Metoprolol Tartrate, short acting, 50 mg tablets before) Meds loaded and pended for provider to review first. Pt has medications for now. Pt was discharged from [facility] TCU on Wednesday for Atrialfibrillation RVR. Pt [...] and calling in their plan of cares. [facility]01-13-2025 Miscellaneous Notes* Telephone Encounter - Steffany Hernandez RN - 05/22/2024 1:45 PM EST Yun from [facility] calling to update Dr. Polk as she saw pt today for his admission assessment. Pt on 4 new meds-entered as med updates. Pt was prescribed Metoprolol Succinate ER 24 hr 50 mg tablets. (Pt was on Metoprolol Tartrate, short acting, 50 mg tablets before) Meds loaded and pended for provider to review first. Pt has medications for now. Pt was discharged from [facility] TCU on Wednesday for Atrialfibrillation RVR. Pt [...] their plan of cares. documented in this encounterParma [facility] Hospital01-10-2025 Telephone encounter Note * Telephone Encounter - Lizzette Restrepo LPN - 05/19/2024 4:37 PM EST Notified. [facility]01-10-2025 Miscellaneous Notes* Telephone Encounter - Lizzette Restrepo LPN - 05/19/2024 4:37 PM EST Notified. * Telephone Encounter - Arsh Polk MD - 05/19/2024 3:59 PM EST yes * Telephone Encounter - Carole Cerrato RN - 05/19/2024 3:36 PM EST Hayley with [facility] calling and asking if provider will sign and follow patient for Home Health Nursing, PT, OT, ST, HH Aide and Social Work orders? Please call Hayley back at [phone]. Carole Cerrato RN documented in this encounterParma [facility]01-10-2025 Telephone encounter Note * Telephone Encounter - Arsh Polk MD - 05/19/2024 3:59 PM EST yes [facility]01-10-2025 Telephone encounter Note* Telephone Encounter - Carole Cerrato RN - 05/19/2024 3:36 PM EST Hayley with [facility] calling and asking if provider will sign and follow patient for Home Health Nursing, PT, OT, ST, HH Aide and Social Work orders? Please call Hayley back at [phone]. Carole Cerrato RN [facility]01-07-2025 [facility]12-19-2024 [facility]12-19-2024 Miscellaneous Notes* Telephone Encounter - Kaylee Villa LPN - 04/27/2024 12:33 PM EST Patient admitted to [facility] for altered mental status 04/24/2024. Patient's states [...] call back thank you documented in this encounterParma [facility] Hospital12-19-2024 Telephone encounter Note * Telephone Encounter - Kaylee Villa LPN - 04/27/2024 12:33 PM EST Patient admitted to [facility] for altered mental status 04/24/2024. Patient's states they are going to be transferring him to TCU. Appointments for 05/01/2024 cancelled. Kaylee Villa LPN [facility]12-19-2024 Telephone encounter Note* Telephone Encounter - Petra Montez - 04/27/2024 12:17 PM EST Pt is scheduled 05/01 for labs and injection. called stating he is in hospital now and not sure when he will get out. Please advise and call back thank you [facility]12-19-2024 [facility]12-18-2024 Telephone encounter Note* Telephone Encounter - Carole Cerrato RN - 04/26/2024 9:30 AM EST Patient's calling into sandra Otto's office that patient's appointment needs cancelled for today with GEETA Reyes. Appt has been cancelled as requested. states patient is at [facility] due to hallucinations. Carole Cerrato RN [facility]12-18-2024 Miscellaneous Notes* Telephone Encounter - Carole Cerrato RN - 04/26/2024 9:30 AM EST Patient's calling into sandra Dr. Otto's office that patient's appointment needs cancelled for today with GEETA Reyes. Appt has been cancelled as requested. states patient is at [facility] due to hallucinations. Carole Cerrato, RN documented in this encounterParma [facility]12-16-2024 Telephone encounter Note * Telephone Encounter - Malgorzata Alcaraz OCCA - 04/24/2024 10:58 AM EST TC to patients who verbalized understanding of below. states they have already seen Orthoand fracture is healing well. Also scheduled pt for appointment with Neur SHAHBAZ on 04/26 to discuss medications as currently d/c'd Sinemet per Dr. Otto as TE 04/12. MACK Sorensen [facility]12-16-2024 Miscellaneous Notes* Telephone Encounter - Malgorzata Alcaraz [...] not included. Arsh Otto Jr., MD P [facility] Neur Clarita Nurse Please make sure that [...] to arrange a follow up with neur shahabz - virtual ok. Arsh Otto MD * [...] the results. Please advise. documented in this encounterParma [facility] Hospital12-16-2024 Telephone encounter Note * Telephone Encounter - Malgorzata Alcaraz OCCA - 04/24/2024 7:51 AM EST Images from the original note were not included. Arsh Otto Jr., MD P [facility] Neur Clarita Nurse Please make sure that patient has followed up with ortho. The MRI of the shoulder confirmed the upper extremity fracture. Dr. Polk may know this on March 30 and had arrange an ortho follow up at that time. Thank you Arsh Otto MD. Note, you can copy the above in the telephone encounter [facility]12-12-2024 Telephone encounter Note* Telephone Encounter - Arsh Otto Jr., MD - 04/20/2024 6:53 PM EST Please try to arrange a follow up with neur shahbaz - virtual ok. Arsh Otto MD [facility]12-12-2024 Telephone encounter Note* Telephone Encounter - Velia Burk LPN - 04/20/2024 3:54 PM EST Patients chris, states that he has not been taking the carbidopa and the hallucinations got better however his mood is not improved and she is not sure if there is another medication he could try. Also states he had his MRI last week but has not gotten the results. Please advise. [facility]12-09-2024 Nurse Note* Maral Brush LPN - 04/17/2024 [...] immediate adverse reactions noted. Maral Brush LPN [facility]12-09-2024 Nurse Note* Maral Brush LPN - 04/17/2024 [...] noted. Maral Brush LPN documented in this encounterParma [facility]12-04-2024 History of Present illness Narrative* Marline Romeo [...] PATIENT PRESENTS WITH AN IMPLANTABLE OR ATTACHED MORALE OFFICER: No RADIOLOGY DEPARTMENT: MR; Exam(s) Completed: Spine: Lumbar spine Upper MSK: Shoulder, left PERIPHERAL IV DATA: Not applicable SIGNED BY: RT Julito(R) April 12, 2024 12:32 PM documented in this encounterParma [facility]12-04-2024 NoteMount Carmel Health System12-04-2024 Telephone encounter Note* Telephone Encounter - Virgie Lees LPN - 04/12/2024 10:21 AM EST Spoke to patients and advised of message below. verbalized understanding. Nurse emphasized to please call back on Wednesday to update office. verbalized understanding [facility]12-04-2024 Miscellaneous Notes* Telephone Encounter - Virgie Lees [...] Arsh Otto MD * Telephone Encounter - Luul Calabrese LPN - 04/12/2024 9:24 AM EST [...] apt. Lulu Calabrese LPN documented in this encounterParma [facility]12-04-2024 Telephone encounter Note * Telephone Encounter - Arsh Otto Jr., MD - 04/12/2024 10:07 AM EST Please have patient hold medication for 24 hours to see if improvement. Pt should provide us feedback Wednesday. If not improving, would also recommend that pt follow up with PCP as symptoms might also be due to urinary tract infection or metabolic derangement. Arsh Otto MD [facility]12-04-2024 Telephone encounter Note* Telephone Encounter - Lulu [...] him to this apt. Lulu Calabrese LPN [facility]12-04-2024 Telephone encounter Note* Telephone Encounter - Lulu Calabrese LPN - 04/12/2024 9:23 AM EST error [facility]12-04-2024 Miscellaneous Notes* Telephone Encounter - Lulu Calabrese LPN - 04/12/2024 9:23 AM EST error documented in this encounterParma [facility] Hospital11-25-2024 NoteMount Carmel Health System11-25-2024 History of Present illness Narrative* Denny Toure MD - 04/03/2024 11:09 AM EST Denny Toure MD Department of Orthopaedics Orthopaedics [facility] [address] [facility] [address] Dept: [phone] Dept April 03, 2024 CHIEF COMPLAINT: New and Fracture of the Left Shoulder HPI Patient here for evaluation left proximal humerus fracture. Patient states on 03/15 he tripped on a mat a restaurant and face planted. He started having shoulder pain and went to the ED the following day at [facility]. Has been wearing a sling. States he pain is worse when he has the sling on. X-rays done 03/16/24 at [facility], and on 03/27/24. Referred by Dr. Polk. with patient today. ASSESSMENT: M25.512 Acute pain of left shoulder (primary encounter diagnosis) S42.295A Other closed nondisplaced fracture of proximal end of left humerus, initial encounter PLAN: Caution with any wt bearing. Normal, waist level motion for ADLs. Repeat xrays in 3-4 weeks. FOLLOW UP INSTRUCTIONS: As above. OBJECTIVE: Mr. Merven D Yue is a pleasant 83 year old in [...] SPEC WHEN PFRMD 07/13/2005 COLONOSCOPY FLX DX W/CITLALI SPEC WHEN PFRMD 03/11/2015 Colonoscopy COLONOSCOPY SCREENING [...] visit. Allergies: Mai Inhibitors, Atorvastatin, Pravastatin, and Amydwop-Ozz-Mgn Reductase Inhibitors ROS: General (negative for fatigue, [...] physician via US mail. Arsh Polk [address] [facility] [address] Denny Toure MD documented in this encounterParma Community [facility] Hospital11-25-2024 Nurse Note* Maral Brush LPN - 04/03/2024 11:04 AM EST Injection deferred, parameters not met HGB 10.0 Maral Brush LPN [facility]11-25-2024 Nurse Note* Maral Brush LPN - 04/03/2024 11:04 AM EST Injection deferred, parameters not met HGB 10.0 Maral Brush LPN documented in this encounterParma Community [facility] Hospital11-25-2024 NoteMount Carmel [facility] System11-25-2024 History of Present illness Narrative* Yenny Bill - 04/03/2024 10:38 AM EST Progress Note Axel Pacheco Yue 1940 Encounter date: 04/03/2024 HPI: Axel Pacheco Yue is a 83 year old gentleman with PMHx o T2DM, Parkinson's, HTN, HLD, aortic stenosis, CKD, IRINEO, TIA, anemia, and DLBCL s/p CALGB protocol 66601: 6 cycles R-EPOCH until September 2006 and [...] See Comments Hyperkalemia Atorvastatin Myalgia Pravastatin Myalgia Rnpubzl-Oco-Aee Red* Myalgia FAMILY HISTORY Problem Relation Age [...] out visits if remains stable Yenny Bill APRN.PROP DRAWER I spent a total of 30 minutes on the date of the service which included preparing to see the patient, hpvh-iq-aqmu patient care, completing clinical documentation, obtaining and/or [...] evaluation of this patient. documented in this encounterParma [facility]11-21-2024 Telephone encounter Note * Telephone Encounter - Marline Roach MA - 03/30/2024 12:19 PM EST Patient and stopped by office and sling was sized and dispensed. Large sling dispensed Form was signed. Marline Roach MA March 30, 2024 12:20 PM [facility]11-21-2024 Miscellaneous Notes* Telephone Encounter - Marline Roach [...] 2024 10:31 AM * Telephone Encounter - Arhs Polk MD - 03/30/2024 10:13 AM EST Let him know they just called me. He does have a break that is starting to show in his upper arm. Needs a sling in place and referred to ortho. Can we have them come in to get fitted for a sling. Setup with ortho soon documented in this encounterParma [facility] Hospital11-21-2024 Telephone encounter Note * Telephone Encounter - Marline Roach MA - 03/30/2024 10:30 AM EST notified and will stop in office to get sling and set up ortho appt. Marline Roach MA March 30, 2024 10:31 AM [facility]11-21-2024 Telephone encounter Note* Telephone Encounter - Arsh Polk MD - 03/30/2024 10:13 AM EST Let him know they just called me. He does have a break that is starting to show in his upper arm. Needs a sling in place and referred to ortho. Can we have them come in to get fitted for a sling. Setup with ortho soon [facility]11-18-2024 NoteMount Carmel Health System11-18-2024 History of Present illness Narrative* Arsh Otto [...] none prior for months. States he just cannot walk, I justfall down. Sleeps sitting up in a chair. Endorses back pain as sitting here in office. Pain can radiate into lower back. Last imaging in 2020 (MRI) showed mild canal stenosis. CT brain and C spine post fall was reportedly unremarkable. Mood described as pretty good per pt and . Only taking Sinemet IR as states CR made him funny. No messages sent to us at that [...] which included preparing to see the patient, vrcd-xm-jwqw patient care, completing clinical documentation, obtaining and/or reviewing separately obtained history, performing a medically appropriate examination, counseling and educating the pa tient/family/caregiver, ordering medications, tests, or procedures, communicating with other HCPs (not separately reported), and communicating results to the patient/family/caregiver. documented in this encounterParma Community [facility] Hospital11-18-2024 History of Present illness Narrative* Melissa Goodwin [...] PATIENT PRESENTS WITH AN IMPLANTABLE OR ATTACHED MORALE OFFICER: No RADIOLOGY DEPARTMENT: General X-ray: Exam(s) Completed: Upper Extremity X- Ray(s): Shoulder, AP / TRUE AP / AXILLARY left PERIPHERAL IV DATA: Not applicable SIGNED BY: RT Antonio(R) March 27, 2024 10:48 AM documented in this encounterParma Community [facility] Hospital11-18-2024 NoteMount [facility]el [facility]11-18-2024 NoteMount Carmel [facility] System11-18-2024 History of Present illness Narrative* Arsh Polk MD - 03/27/2024 9:47 AM EST Patient presents with: 6 Month Exam HPI: Patient presents today for office visit for follow up. DM: Does not check his sugars at home. Takes all meds consistently. Watches diet somewhat. Has numbness in feet. No lesions. HLD: No myalgias. Had a bad fall a couple weeks ago. Was walking with a cane into an establishment and tripped over mat on ground and fell face first. Hit his face and bruised his left side. Has some open abrasions on left arm and left hand. Some swelling. Still with pain. Seen in [place] ER on 03/16/24. Follows with Neurology, Cardiology [...] Lymph 1.00 - 4.00 k/uL 0.91 (L) [place]% % 7.[address] <0.87 k/uL 0.86 Eosin% % 3.1 Abs [...] See Comments Hyperkalemia Atorvastatin Myalgia Pravastatin Myalgia Uijsrrb-Vbp-Wbc Red* Myalgia PAST MEDICAL HISTORY Diagnosis Date [...] 94/62 Pulse 72 Ht 177.8 cm (5' 10) Wt 128.8 kg (284 lb) SpO2 95% [...] whether dyskinesia present, unspecified whether manifestations fluctuate ([facility]) - ICD9: 332.0, ICD10: G20.A1 (primary diagnosis) - continue to follow with neurology. 2. Essential hypertension, benign - ICD9: 401.1, ICD10: I10 - Controlled 3. Mixed hyperlipidemia - ICD9: 272.2, ICD10: E78.2 - Controlled - Counseled on healthy diet and regular exercise - BASIC METABOLIC PANEL 4. Hypertensive kidney disease with stage 3 chronic kidney disease, unspecified whether stage 3a or3b CKD ([facility]) - ICD9: 403.90, 585.3, ICD10: I12.9, N18.30 - stable. 5. 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- ICD9: 414.01, ICD10: [...] unspecified whether stage 3a or 3b CKD ([facility]) - ICD9: 250.40, 585.3, ICD10: E11.22, N18.30 - follow labs. - HEMOGLOBIN A1C 9. 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) ([facility]) - ICD9: 285.21, 585.3, ICD10: N18.32, D63.1 - stable. 10. Vitamin D deficiency - ICD9: 268.9, ICD10: E55.9 - stable. 11. BMI 40.0-44.9, adult ([facility]) - ICD9: V85.41, ICD10: Z68.41 - stable. 12. Acute pain of left shoulder - ICD9: 719.41, ICD10: M25.512 - consider ortho. Ice alternating with heat. - XR SHOULDER GENERAL 3V OR MORE AP/TRUE AP/OTHER LEFT Arsh Polk MD documented in this encounterPar[facility]11-[facility]24 Telephone encounter Note * Telephone Encounter - Carole Cerrato RN - 03/21/2024 10:44 AM EST Patient has 6 month follow up appt with Dr. Polk on 03/27/24. Pt had multiple lab tests completed recently. Asking if Dr. Polk wanted to add any other labs before seeing him next week? Please call patient's with response. Thank you. [facility]11-12-2024 Miscellaneous Notes* Telephone Encounter - Carole Cerrato RN - 03/21/2024 10:44 AM EST Patient has 6 month follow up appt with Dr. Polk on 03/27/24. Pt had multiple lab tests completed recently. Asking if Dr. Polk wanted to add any other labs before seeing him next week? Please call patient's with response. Thank you. documented in this encounterParma [facility]11-11-2024 Nurse Note* Maral Brush LPN - 03/20/2024 10:36 AM EST Injection deferred, parameters not met HGB 10.3 Maral Brush LPN [facility]11-11-2024 Nurse Note* Maral Brush LPN - 03/20/2024 10:36 AM EST Injection deferred, parameters not met HGB 10.3 Maral Brush LPN documented in this encounterParma [facility]10-28-2024 [facility] History of Present illness Narrative* Yenny Bill - 03/06/2024 11:50 AM EDT Progress Note Axel Serrano 1940 Encounter date: 03/07/2024 HPI: Axel Serrano is a 83 year old gentleman with PMHx o T2DM, Parkinson's, HTN, HLD, aortic stenosis, CKD, IRINEO, TIA, anemia, and DLBCL s/p CALGB protocol 23226: 6 cycles R-EPOCH until September 2006 and [...] new issues. States that he did feel a little more ambitious following IV iron administration. Since last visit [...] E10.9 Insulin: No 50 Strip 11 Saw Bowlegs 160 mg capsule Take 300 mg by mouth once daily. (Patient not taking: Reported on 03/06/2024) LANCETS USE DIRECTED 100 0 No current facility-administered medications for this visit. ALLERGIES Allergen Reactions Mai Inhibitors Other: See Comments Hyperkalemia Atorvastatin Myalgia Pravastatin Myalgia Dskmjxo-Ynm-Oya Red* Myalgia FAMILY HISTORY Problem Relation Age [...] out visits if remains stable Yenny Bill APRN.PROP DRAWER I spent a total of 30 minutes on the date of the service which included preparing to see the patient, ghuz-qj-fsgn patient care, completing clinical documentation, obtaining and/or [...] evaluation of this patient. documented in this encounterParma [facility]10-28-2024 Nurse Note* Delma Tobias LPN - 03/06/2024 10:55 AM EDT Aranesp Injection deferred, treatment parameter not met, hgb 10.8 Delma Tobias LPN [facility]10-28-2024 Nurse Note* Delma Tobias LPN - 03/06/2024 10:55 AM EDT Aranesp Injection deferred, treatment parameter not met, hgb 10.8 Delma Tobias LPN documented in this encounterParma [facility]10-28-2024 Telephone encounter Note * Telephone Encounter - [...] Johansen LPN March 06, 2024 8:56 AM [facility]10-28-2024 Miscellaneous Notes* Telephone Encounter - Karson Johansen [...] 06, 2024 8:56 AM documented in this encounterParma [facility] Hospital10-14-2024 Nurse Note* Maral Brush LPN - 02/21/2024 11:12 AM EDT Injection deferred, parameters not met HGB 10.7 Maral Brush LPN [facility]10-14-2024 Nurse Note* Maral Brush LPN - 02/21/2024 11:12 AM EDT Injection deferred, parameters not met HGB 10.7 Maral Brush LPN documented in this encounterParma [facility] Hospital09-30-2024 Telephone encounter Note * Telephone Encounter - Bozena Avitia - 02/07/2024 4:29 PM EDT Scheduled as directed. Bozena Avitia [facility]09-30-2024 Miscellaneous Notes* Telephone Encounter - Bozena Avitia - 02/07/2024 4:29 PM EDT Scheduled as directed. Bozena Avitia * Telephone Encounter - Yenny Bill - 02/07/2024 2:22 PM EDT Can you please add OV with 03/06 injection? Thank you! Yenny Bill APRN.PROP DRAWER documented in this encounterParma [facility] Hospital09-30-2024 Telephone encounter Note * Telephone Encounter - Yenny Bill - 02/07/2024 2:22 PM EDT Can you please add OV with 03/06 injection? Thank you! Yenny Bill APRN.PROP DRAWER [facility] Work Phone: 1(636) 815-759409-30-2024 Nurse Note* Maral Brush LPN - 02/07/2024 [...] immediate adverse reactions noted. Maral Brush LPN [facility]09-30-[facility] Nurse Note* Maral Brush LPN - 02/07/2024 [...] noted. Maral Brush LPN documented in this encounterParma [facility] Hospital09-25-2024 History of Present illness Narrative* Arsh Polk [...] 81 mg by mouth once daily. Saw Bowlegs 160 mg capsule Take 300 mg by mouth once daily. LANCETS USE DIRECTED No current facility-administered medications for this visit. ALLERGIES: ALLERGIES Allergen Reactions Mai Inhibitors Other: See Comments Hyperkalemia Atorvastatin Myalgia Pravastatin Myalgia Pzcgpnl-Oum-Tqj Red* Myalgia PAST MEDICAL HISTORY Diagnosis Date [...] hematology Arsh Polk MD documented in this encounterParma [facility] Hospital09-25-2024 Telephone encounter Note * Telephone Encounter - Kayla Lloyd - 02/02/2024 3:37 PM EDT I called and spoke to patient's spouse Suri and scheduled Merven to come in Wednesday02/07/24 10:45 am lab and 11:15 am injection, she confirmed this date and times Kayla Newsome [facility]09-25-2024 Miscellaneous Notes* Telephone Encounter - Kayla Lloyd [...] with cbc at first injection. Yenny Bill APRN.PROP DRAWER * Telephone Encounter - Kaylee Villa LPN [...] day of inj? Yenny documented in this encounterParma Community [facility] Hospital09-25-2024 Telephone encounter Note * Telephone Encounter - Kaylee Villa LPN - 02/02/2024 9:31 AM EDT PSS- please contact patient to schedule Q 2 week CBC/Aranesp. Will also need EPO level (lab) at 1 st injection appointment. Kaylee Villa LPN [facility]09-25-[facility]24 Telephone encounter Note* Telephone Encounter - Yenny [...] with cbc at first injection. Yenny Bill APRN.PROP DRAWER [facility] Work Phone: 1(867) 873-426909-24-2024 Telephone encounter Note* Telephone Encounter - Kaylee [...] for the EPO level? Kaylee Villa LPN [facility]09-24-2024 Telephone encounter Note* Telephone Encounter - Yenny Bill - 02/01/2024 8:48 AM EDT Can we go ahead and schedule him with repeat cbc and epo level day of inj? Yenny [facility]09-18-2024 History of Present illness Narrative* Michelle Latham [...] PATIENT PRESENTS WITH AN IMPLANTABLE OR ATTACHED MORALE OFFICER: No RADIOLOGY DEPARTMENT: General X-ray: Exam(s) Completed: Rib X-Ray: Right PERIPHERAL IV DATA: Not applicable SIGNED BY: RT Harriet(R) January 26, 2024 12:50 PM documented in this encounterParma [facility] Hospital09-18-2024 History of Present illness Narrative* Gabriel Butler [...] Replacement ALLERGIES Mai Inhibitors, Atorvastatin, Pravastatin, and Cerwjhl-Sjj-Qvw Reductase Inhibitors MEDICATIONS carbidopa-levodopa (SINEMET) 25-100 mg [...] 81 mg by mouth once daily. Saw Bowlegs 160 mg capsule Take 300 mg by [...] of care. This note was generated using [employer] software. It may contain errors in wording, punctuation, or spelling. Gabriel Butler APRN.PROP DRAWER documented in this encounterParma Community [facility] Hospital09-16-2024 History of Present illness Narrative* Yenny Bill - 01/24/2024 12:21 PM EDT Discussed with Dr. France. Tx for anemia of CKD with aranesp. Anemia of CKD, hx of chemotherapy in 2006 Hgb less than 10 Follow up OV in 3 months with labs. Yenny Bill APRN.PROP DRAWER documented in this encounterParma [facility] Hospital09-11-2024 History of Present illness Narrative* Yenny Bill - 01/19/2024 9:00 AM EDT Progress Note Axel Serrano 1940 Encounter date: 01/21/2024 HPI: Axel Serrano is a 83 year old gentleman with PMHx o T2DM, Parkinson's, HTN, HLD, aortic stenosis, CKD, IRINEO, TIA, anemia, and DLBCL s/p CALGB protocol 10943: 6 cycles R-EPOCH until September 2006 and [...] new issues. States that he did feel a little more ambitious following IV iron administration. Since last visit [...] 81 mg by mouth once daily. Saw Bowlegs 160 mg capsule Take 300 mg by mouth once daily. LANCETS USE DIRECTED 100 0 No current facility-administered medications for this visit. ALLERGIES Allergen Reactions Mai Inhibitors Other: See Comments Hyperkalemia Atorvastatin Myalgia Pravastatin Myalgia Ecckahj-Nxa-Hlw Red* Myalgia FAMILY HISTORY Problem Relation Age [...] - continue to monitor labs. Yenny Bill APRN.BRIAN I spent a total of 30 minutes on the date of the service which included preparing to see the patient, ajxx-fc-mtuz patient care, completing clinical documentation, obtaining and/or [...] evaluation of this patient. documented in this encounterParma Community [facility] Hospital08-21-2024 Instructions* Patient Instructions* Kaylee Herrmann PA-C - 12/29/2023 3:47 PM EDT Will continue with Sinemet 25/100mg three times a day Increase physical activity and make sure you stay hydrated. Follow up in four months with Dr. Otto documented in this encounterParma Community [facility] Hospital08-21-2024 History of Present illness Narrative* Kaylee Herrmann [...] 81 mg by mouth once daily. Saw Bowlegs 160 mg capsule Take 160 mg by [...] dysarthria; comprehension, naming, repetition intact. Short and keno terminal operator memory intact. CN: PERRL, EOMI and without [...] which included preparing to see the patient, ktcu-cd-vcbl patient care, completing clinical documentation, obtaining and/or reviewing separately obtained history, performing a medically appropriate examination, counseling and educating the pat ient/family/caregiver, and ordering medications, tests, or procedures. This document has been created with the use of voice recognition technology. It may contain inaccuracies: (e.g. misspellings, inaccurate syntax or word sense) that have escaped review. documented in this encounterParma Community [facility] Hospital08-12-2024 Telephone encounter Note * Telephone Encounter - [...] Asher LPN December 20, 2023 2:23 PM [facility]08-12-[facility]24 Miscellaneous Notes* Telephone Encounter - Romina Asher [...] Take 1 tablet by mouth once daily. oRmina Asher LPN December 20, 2023 2:23 PM documented in this encounterParma [facility] Hospital08-05-2024 Telephone encounter Note * Telephone Encounter - Pretty Harden LPN - 12/13/2023 3:14 PM EDT TC to pts who voiced understanding. Pt is due for another mask and is going to [facility] Wednesday, will do another fitting then. Pretty Harden LPN [facility]08-05-2024 Miscellaneous Notes* Telephone Encounter - Pretty Harden LPN - 12/13/2023 3:14 PM EDT TC to pts who voiced understanding. Pt is due for another mask and is going to [facility] Wednesday, will do another fitting then. Pretty [...] he has had multiple mask fittings at [facility]. Marlen Madrigal APRN.CNP documented in this encounterParma [facility] Hospital08-05-2024 Telephone encounter Note * Telephone Encounter - Marlen Madrigal APRN.CNP - 12/13/2023 9:38 AM EDT Please tell pt I reviewed a download from his ASV. Still having very large mask leaks. Residual number of apneas is better at 7. I think it would be normal if we could improve the leaks. I know he has had multiple mask fittings at [facility]. Marlen Madrigal APRN.CNP [facility]07-26-2024 Telephone encounter Note* Telephone Encounter - Tawnya Bess - 12/03/2023 4:41 PM EDT Scheduled as directed. Tawnya Bess [facility]07-26-2024 Miscellaneous Notes* Telephone Encounter - Tawnya Bess [...] from last IV iron infusion? Yenny Bill APRN.PROP DRAWER documented in this encounterParma [facility] Hospital07-25-2024 Telephone encounter Note * Telephone Encounter - [...] from last IV iron infusion? Yenny Bill APRN.PROP DRAWER [facility] Work Phone: 1(866) 785-964307-22-2024 History of Present illness Narrative* Yenny Bill - 11/29/2023 10:55 AM EDT New Patient Progress Note Axel Serrano 1940 Encounter date: 11/29/2023 Cancer Staging No matching staging information was found for the patient. HPI: Axel Serrano is a 83 year old gentleman with PMHx o T2DM, Parkinson's, HTN, HLD, aortic stenosis, CKD, IRINEO, TIA, anemia, and DLBCL s/p CALGB protocol 85009: 6 cycles R-EPOCH until September 2006 and [...] 81 mg by mouth once daily. Saw Bowlegs 160 mg capsule Take 160 mg by [...] See Comments Hyperkalemia Atorvastatin Myalgia Pravastatin Myalgia Tnykewv-Iog-Ros Red* Myalgia FAMILY HISTORY Problem Relation Age [...] 59 Temp (Src) 97.4 (Temporal) Ht 5' 10.472 (1.79m) Wt 310 lb (140.6kg) SpO2 97% [...] which included preparing to see the patient, ocvc-rc-duvc patient care, completing clinical documentation, obtaining and/or [...] evaluation of this patient. documented in this encounterParma [facility] Hospital07-08-2024 Telephone encounter Note * Telephone Encounter - [...] Restrepo LPN November 15, 2023 9:01 AM [facility]07-08-2024 Miscellaneous Notes* Telephone Encounter - Lizzette Restrepo [...] 15, 2023 9:01 AM documented in this encounterParma [facility] Hospital07-02-2024 Telephone encounter Note * Telephone Encounter - Bozena Avitia - 11/09/2023 4:41 PM EDT Spoke with patient's spouse and scheduled as directed. Bozena Avitia [facility]07-02-2024 Miscellaneous Notes* Telephone Encounter - Bozena Avitia [...] me know if willing. documented in this encounterParma Community [facility] Hospital07-02-2024 Telephone encounter Note * Telephone Encounter - Kaylee Villa LPN - 11/09/2023 9:55 AM EDT Ok to schedule with Yenny 11/29/2023. Kaylee Villa LPN [facility]07-02-2024 Telephone encounter Note* Telephone Encounter - Mariola Mckeon - 11/09/2023 9:22 AM EDT Received call from PSS regarding referral. Please review and advise. [facility] Work Phone: 1(402) 528-816507-01-2024 Telephone encounter Note* Telephone Encounter - Lizzette Restrepo LPN - 11/08/2023 12:57 PM EDT Spoke with /patient and they are agreeable to be seen. Please place referral and we can route to hem/oc scheduling pool. [facility]07-01-20[facility] Telephone encounter Note* Telephone Encounter - Arsh Polk MD - 11/08/2023 11:59 AM EDT Anemia still low. Stool test negative. May be related to his kidney disease. Has had gi work up in the past. If they are willing, we could have hematology look at him as well to make sure we are not missing anything. Let me know if willing. [facility]07-01-2024 Instructions* Patient Instructions* Marlen Madrigal APRN.PROP DRAWER - 11/08/2023 10:41 AM EDT PAP Supply [...] every 6 months *Self-Pay documented in this encounterParma [facility] Hospital07-01-2024 History of Present illness Narrative* Marlen Madrigal APRN.CNP - 11/08/2023 10:30 AM EDT Images from the original note were not included. [facility] Follow up/ Established patient [...] on history. [facility] Reminded patient and his the need to clean and replace PAP equipment regularly. Advised pt not to drive or operate heavy machinery if sleepy. Arsh Otto MD Here for follow up for IRINEO, SUMANTH; he faithfully uses ASV every night. He sleeps in a recliner. He has had issues with mask leaks, has had multiple mask fittings at [facility]. Using a hybrid FFM, reports this is [...] on HSAT Treatment : PAP therapy DME: [facility] PAP History: Current PAP setting: ASV Reviewed [...] See Comments Hyperkalemia Atorvastatin Myalgia Pravastatin Myalgia Dwphflp-Jup-Wfk Red* Myalgia CURRENT MEDICATIONS: atorvastatin (LIPITOR) 40 [...] 81 mg by mouth once daily. Saw Bowlegs 160 mg capsule Take 160 mg by [...] month Follow up 3 mos Marlen Madrigal APRN.PROP DRAWER documented in this encounterParma [facility] Hospital06-26-2024 Telephone encounter Note * Telephone Encounter - [...] Calabrese LPN November 03, 2023 4:35 PM [facility]06-26-2024 Miscellaneous Notes* Telephone Encounter - Lulu Calabrese [...] 03, 2023 4:35 PM documented in this encounterParma [facility] Hospital06-25-2024 Telephone encounter Note * Telephone Encounter - Sedrick Epstein MA - 11/02/2023 9:20 AM EDT Images from the original note were not included. [facility]06-[facility] Miscellaneous Notes* Telephone Encounter - Sedrick Epstein MA - 11/02/2023 9:20 AM EDT Images from the original note were not included. documented in this encounterParma [facility] Hospital06-12-2024 Telephone encounter Note * Telephone Encounter - Kaia Liu MA - 10/20/2023 11:43 AM EDT Patient was driving so spoke with Suri. Informed and verbalized understanding. Kaia Liu MA [facility]06-12-2024 Miscellaneous Notes* Telephone Encounter - Kaia Liu [...] two weeks and ifobt documented in this encounterParma Community [facility] Hospital06-12-2024 Telephone encounter Note * Telephone Encounter - Arsh Polk MD - 10/20/2023 11:38 AM EDT Kidney function is slightly better and overall stable. Red count stable but slightly lower than it has been. Recheck labs in two weeks and ifobt [facility]20[facility] History of Present illness Narrative* Arsh Polk [...] Abs Lymph 1.00 - 4.00 k/uL 1.22 [place]% % 8.[address] <0.87 k/uL 0.66 Eosin% % 5.5 Abs [...] 81 mg by mouth once daily. Saw Bowlegs 160 mg capsule Take 160 mg by mouth once daily. LANCETS USE DIRECTED No current facility-administered medications for this visit. ALLERGIES: ALLERGIES Allergen Reactions Mia Inhibitors Other: See Comments Hyperkalemia Atorvastatin Myalgia Pravastatin Myalgia Nikrfce-Fxs-Qwy Red* Myalgia PAST MEDICAL HISTORY Diagnosis Date [...] Pulse (!) 54 Ht 177.8 cm (5' 10) Wt 134.3 kg (296 lb) SpO2 97% [...] current medications 8. 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- ICD9: 414.01, ICD10: [...] treat. Arsh Polk MD documented in this encounterParma Community [facility] Hospital05-09-2024 Telephone encounter Note * Telephone Encounter - Varsha Carlson RN - 09/16/2023 11:59 AM EDT Stephanie cristo Lieberman called and was asking to have OV note from 09/06/23 faxed over to them at fax # [phone]. Faxed. [facility]05-09-2024 Miscellaneous Notes* Telephone Encounter - Varsha Carlson RN - 09/16/2023 11:59 AM EDT Stephanie Lieberman called and was asking to have OV note from 09/06/23 faxed over to them at fax # [phone]. Faxed. documented in this encounterParma Community [facility] Hospital05-07-2024 Telephone encounter Note * Telephone Encounter - [...] Please advise. Thank you. Karson Johansen LPN. [facility]05-07-2024 Miscellaneous Notes* Telephone Encounter - Karson Johansen [...] you. Karson Johansen LPN. documented in this encounterParma Community [facility] Hospital05-06-2024 Telephone encounter Note * Telephone Encounter - Lizzette Restrepo LPN - 09/13/2023 1:59 PM EDT See message reports Dr Laboy wants him taking twice a day. [facility]05-06-2024 Miscellaneous Notes* Telephone Encounter - Lizzette Restrepo LPN - 09/13/2023 1:59 PM EDT See message reports Dr Laboy wants him taking twice a day. documented in this encounterParma Community [facility] Hospital04-29-2024 Telephone encounter Note * Telephone Encounter - Shraddha Calabrese LPN - 09/06/2023 6:33 PM EDT Faxed Rx mask fit to [employer] [phone] 11 pages. Faxed Rx PT, OT to [facility] [phone] 14 pages. Shraddha Calabrese LPN [facility]04-29-2024 Miscellaneous Notes* Telephone Encounter - Shraddha Calabrese LPN - 09/06/2023 6:33 PM EDT Faxed Rx mask fit to [facility] [phone] 11 pages. Faxed Rx PT, OT to [facility] [phone] 14 pages. Shraddha Calabrese LPN documented in this encounterParma Community [facility] Hospital04-29-2024 Instructions* Patient Instructions* Arsh Otto Jr., MD - 09/06/2023 3:51 PM EDT Continue Sinemet 25/100mg, 1 tab, at 0600, at 1100, and then at 1600. Start Sinemet CR 50/200mg, 1 tab at 0600 and 1 tablet 1800. 3. Will refer to [facility] for formal mask fit and request for PAP download over the 2 weeks following the mask fit. documented in this encounterParma Community [facility] Hospital04-29-2024 History of Present illness Narrative* Arsh Otto [...] neuropathy. PAP data download reviewed. Used ASV 90/90 days leading to appt. Avgt use of [...] Pt stateshe should be doing therapy, but I don't know. Patient states uncertain if can do PT due to lower back pain. States saw Dr. Nielson of [facility] - tried injections with no help. Patient [...] 81 mg by mouth once daily. Saw Bowlegs 160 mg capsule Take 160 mg by [...] which included preparing to see the patient, zsgx-yj-xgwu patient care, completing clinical documentation, obtaining and/or reviewing separately obtained history, performing a medically appropriate examination, counseling and educating the pat ient/family/caregiver, ordering medications, tests, or procedures, independently interpreting results (not separately reported), and communicating results to the patient/family/caregiver (results include PAP data download). documented in this encounterParma [facility]04-25-2024 Telephone encounter Note * Telephone Encounter - Shraddha Calabrese LPN - 09/02/2023 5:04 PM EDT Last OV MQ stated 60 min, pt scheduled in 20 min declined to r/s. Last OV with [facility] 11/23/2022, MQ 05/25/2023, download scanned into chart for review. Shraddha Calabrese LPN [facility]04-25-2024 Miscellaneous Notes* Telephone Encounter - Shraddha Calabrese LPN - 09/02/2023 5:04 PM EDT Last OV MQ stated 60 min, pt scheduled in 20 min declined to r/s. Last OV with [facility] 11/23/2022, MQ 05/25/2023, download scanned into chart for review. Shraddha Calabrese LPN documented in this encounterParma Community [facility] Hospital02-29-2024 Miscellaneous Notes* Telephone Encounter - Karson Johansen [...] you. Karson Johansen LPN. documented in this encounterParma Community [facility] Hospital02-29-2024 Miscellaneous Notes* Telephone Encounter - Shraddha Calabrese [...] time. Kaylee Herrmann PA-C documented in this encounterParma Community General Hospital02-09-2024 History of Present illness Narrative* Arsh Polk [...] Abs Lymph 1.00 - 4.00 k/uL 1.63 [place]% % 7.[address] <0.87 k/uL 0.76 Eosin% % 3.3 Abs [...] 81 mg by mouth once daily. Saw Bowlegs 160 mg capsule Take 160 mg by mouth once daily. LANCETS USE DIRECTED No current facility-administered medications for this visit. ALLERGIES: ALLERGIES Allergen Reactions Mai Inhibitors Other: See Comments Hyperkalemia Atorvastatin Myalgia Pravastatin Myalgia Ncspjpf-Lhs-Qrz Red* Myalgia PAST MEDICAL HISTORY Diagnosis Date [...] Pulse (!) 51 Ht 177.8 cm (5' 10) Wt 135.6 kg (299 lb) SpO2 95% [...] A1C Arsh Polk MD documented in this encounterParma Community [facility] Hospital02-08-2024 Miscellaneous Notes* Telephone Encounter - Kaia Liu - 06/17/2023 9:48 AM EST Placed call to Pt. Unavailable. Spoke with Suri. Okay per chart to discuss information. Relayed results. She verbalized understanding and states she would let Axel know. He has an appt with Dr. Polk tomorrow 06/18/23. I explained to her that we could discuss everything at appt as well. Kaia Liu * Telephone Encounter - Arsh Polk MD - 06/17/2023 8:47 AM EST His anemia is still in the same level. His iron and vitamin levels are ok Most likely it is related to his kidney function which as declined over time. If willing, we could send him to nephrology or a kidney dr to follow both. Referral placed documented [facility]* Diagnosis Stage 3b chronic kidney disease (HCC)- Primary Anemia of chronic renal failure, stage 3a (HCC) (HCC) documented in this encounter [facility] History of Past illness Narrative* Problem Noted [...] of this encounter (statuses as of 06/17/2023) [facility] of Past illness Narrative* Problem Noted [...] of this encounter (statuses as of 06/18/2023) [facility] of Past illness Narrative* Problem Noted [...] of this encounter (statuses as of 07/08/2023) [facility] Past illness Narrative* Problem Noted [...] of this encounter (statuses as of 07/08/2023) [facility] Miscellaneous Notes* Telephone Encounter - Leslie Lamb [...] 05/2023 Last refill: 03/2022 documented in this encounterPar[facility]10-23-2023 Miscellaneous Notes* Telephone Encounter - Lizzette Restrepo [...] patient. Lizzette Restrepo LPN documented in this encounterPar[facility]10-10-2023 History of Present illness Narrative* Marline Romeo [...] 16, 2023 9:17 AM documented in this encounterPar[facility]09-19-2023 Instructions* Patient Instructions* Kaylee Herrmann PA-C - 01/26/2023 1:54 PM EDT Consult to physical therapy Try alpha lipoic acid for diabetic neuropathy 600 mg Increase water intake and exercise MRI of the brain Continue with sinemet 2 tablets three times 2 tablets 5 am 2 tablets at 11 am 2 tablets 4 pm Follow up in 3 months documented in this encounterPar[facility]09-19-2023 History of Present illness Narrative* Kaylee Herrmann [...] 81 mg by mouth once daily. Saw Bowlegs 160 mg capsule Take 160 mg by [...] dysarthria; comprehension, naming, repetition intact. Short and keno terminal operator memory intact. CN: PERRL, EOMI and without [...] which included preparing to see the patient, djhl-rm-jrha patient care, completing clinical documentation, obtaining and/or reviewing separately obtained history, performing a medically appropriate examination, counseling and educating the pat ient/family/caregiver, and ordering medications, tests, or procedures. This document has been created with the use of voice recognition technology. It may contain inaccuracies: (e.g. misspellings, inaccurate syntax or word sense) that have escaped review. documented in this encounterPar[facility]07-31-2023 Miscellaneous Notes* Telephone Encounter - Lizzette Restrepo [...] patient. Lizzette Restrepo LPN documented in this encounterPar[facility]07-20-2023 History of Present illness Narrative* Arsh Polk MD - 11/26/2022 11:00 AM EDT Patient presents with: Follow Up: 6 month follow up HPI: Patient presents today for office visit for follow up. Had a fall last week. [place] tired and landed on his left elbow.or [...] not check PSYCH:emotionally is stable. Taking his happy pill His feels he is doing better. Feels [...] Abs Lymph 1.00 - 4.00 k/uL 1.69 [place]% % 8.[address] <0.87 k/uL 0.87 (H) Eosin% % 2.7 [...] bipap titration results yet. Feels like he is 82 years old Feels better with sertraline. No side effects. [...] 81 mg by mouth once daily. Saw Bowlegs 160 mg capsule Take 160 mg by mouth once daily. LANCETS USE DIRECTED cholecalciferol, Vitamin D3, (VITAMIN D3) 1,250 mcg (50,000 unit) cap capsule Take 1 capsule by mouth one time a week. (Patient not taking: Reported on 11/23/2022) No current facility-administered medications for this visit. ALLERGIES: ALLERGIES Allergen Reactions Mai Inhibitors Other: See Comments Hyperkalemia Atorvastatin Myalgia Pravastatin Myalgia Oakkszo-Xrs-Hiy Red* Myalgia PAST MEDICAL HISTORY Diagnosis Date [...] questions. - TDAP VACCINE, AGE 7+ YR ([place] BOOSTRIX) Arsh Polk MD documented in this encounterPar[facility]07-20-[facility]23 Evaluation note* Diagnosis Diabetic polyneuropathy associated with [...] mention of infection documented in this encounter [facility] History of Present illness Narrative* Arsh Otto [...] mask fit. He has tried x2 through [facility], and thus contacted sleep lab at [facility] to see if they can perform a [...] 81 mg by mouth once daily. Saw Bowlegs 160 mg capsule Take 160 mg by [...] to see if symptom continue to improve. Asrh Otto MD I spent a total of 35 minutes on the date of the service which included preparing to see the patient, vcfp-wd-lhna patient care, completing clinical documentation, obtaining and/or [...] Level: 4 - Moderate documented in this encounterPar[facility]06-26-2023 Miscellaneous Notes* Telephone Encounter - Lizzette Restrepo [...] patient. Lizzette Restrepo LPN documented in this encounterPar[facility]06-26-2023 Miscellaneous Notes* Telephone Encounter - Lizzette Restrepo [...] patient. Lizzette Restrepo LPN documented in this encounterPar[facility]06-15-2023 Miscellaneous Notes* Telephone Encounter - Lupe Reyna MA - 10/22/2022 8:08 PM EDT Advised spouse some under the nose full face mask brands are: [employer] Dream Wear full face mask or [email or web address] AirFit F30 full face mask. Advised spouse to call office back if any issues goingfurther. Spouse verbalized understanding of instructions. Lupe Reyna MA * Telephone Encounter - Magda Turner RN - 10/22/2022 10:42 AM EDT Spouse (Suri) calls to report that [facility] Sleep lab doesn't know what face mask provider is referring to. Reviewed below high light with Suri. Suri asking for a specific name or brand and further directions be added to current order and faxed to [facility]. Suri requests call back from provider's office at [phone]. ASSESSMENT/PLAN: 1. IRINEO (obstructive sleep apnea) - [...] mask fit. He has tried x2 through [facility], and thus contacted sleep lab at [facility] to see if they can perform a pap ed and mask fitting. They will schedule so that he can be fitted with PAP on and in a recliner as he sleeps at home. I am also asking that they try him with an under the nose FFM. These were demonstrated todayvia the WWW. Thank you, Magda Turner RN documented in this encounterParma [facility]03-14-2023 Miscellaneous Notes* Telephone Encounter - Lulu Alcazar - 07/21/2022 1:39 PM EDT Rx refilled in separate encounter. MagMehart message sent to inform and let him know to make appt. Lulu Alcazar * Telephone Encounter - Jackie Antony BROWNE - 07/21/2022 1:25 PM EDT Called patient. Patient unable to talk on phone at this time. Message left for patient to call clinic. Jackie Hardy LPN * Telephone Encounter - Darnell Mackey PA-C - 07/20/2022 4:35 PM EDT Patient needs annual Appointment for Renewals JUAN Garcia, LIS ISSA documented in this encounterParma [facility]03-13-2023 Miscellaneous Notes* Telephone Encounter - Lizzette Restrepo [...] patient. Lizzette Restrepo LPN documented in this encounterPar[facility]03-02-2023 History of Present illness Narrative* Larisa Mccollum, [...] 09, 2022 1:22 PM documented in this encounterParma [facility] Hospital03-02-2023 History of Present illness Narrative* GEETA Parham - 07/09/2022 1:19 PM EST This note was created using [employer]. Subjective Axel Serrano is a 82 year [...] EGD ALLERGIES Mai Inhibitors, Atorvastatin, Pravastatin, and Bzidttp-Dxu-Chm Reductase Inhibitors MEDICATIONS glimepiride (AMARYL) 4 mg [...] 81 mg by mouth once daily. Saw Bowlegs 160 mg capsule Take 160 mg by [...] ER evaluation. GEETA Parham documented in this encounterPar[facility]02-13-2023 Miscellaneous Notes* Telephone Encounter - Aye Silvestre Ma - 06/22/2022 2:19 PM EST Declined refill and placed in other refill encounter. Made pt aware of why he would see decline. Aye Silvestre Ma documented in this encounterParma [facility] Hospital02-13-2023 Miscellaneous Notes* Telephone Encounter - Aye Silvestre Ma - 06/22/2022 2:17 PM EST Last OV; 05/29/22 Next OV; 11/26/22 Amaryl - 04/14/21 #180 w/3. Vit D - 07/21/21 #12 w/3. Aye Silvestre Ma documented in this encounterPar[facility]01-20-2023 History of Present illness Narrative* Arsh Polk MD - 05/29/2022 10:08 AM EST Patient presents with: Follow Up Sleep Apnea: Needing PSG results from [facility] unsure what is happening there will log in to look for results. HPI: Patient presents today for office visit for follow up. We have not gotten bipap titration results yet. Feels like he is 82 years old Feels better with sertraline. No side effects. [...] 81 mg by mouth once daily. Saw Bowlegs 160 mg capsule Take 160 mg by mouth once daily. LANCETS USE DIRECTED (Patient not taking: No sig reported) No current facility-administered medications for this visit. ALLERGIES: ALLERGIES Allergen Reactions Mai Inhibitors Other: See Comments Hyperkalemia Atorvastatin Myalgia Pravastatin Myalgia Xuheehy-Kjj-Xda Red* Myalgia PAST MEDICAL HISTORY Diagnosis Date [...] unspecified whether stage 3a or 3b CKD ([facility]) - ICD9: 250.40, 585.3, ICD10: E11.22, N18.30 [...] ASV) Arsh Polk MD documented in this [facility]12-28-2022 Miscellaneous Notes* Telephone Encounter - Karson Johansen LPN - 05/06/2022 9:45 AM EST Patient phones requesting refills as follows: Requested Prescriptions Pending Prescriptions Disp Refills ferrous gluconate 256 mg (28 mg iron) tab 30 tablet 5 Sig: Take 1 tablet by mouth once daily. [facility] 02/25/22 05/29/22 Please review and advise. Karson Johansen LPN documented in this [facility]11-28-2022 Miscellaneous Notes* Telephone Encounter - Karson Johansen LPN - 04/06/2022 10:05 AM EST Patient phones requesting refills as follows: Requested Prescriptions Pending Prescriptions Disp Refills SITagliptin (JANUVIA) 100 mg tablet 90 tablet 3 Sig: Take 1 tablet by mouth once daily. [facility] 02/25/22 05/29/22 Please review and advise. Karson Johansen LPN documented in this [facility]10-31-2022 Miscellaneous Notes* Telephone Encounter - [...] patient. Lizzette Restrepo LPN documented in this [facility]10-24-2022 Miscellaneous Notes* Telephone Encounter - Henna Rankin LPN - 03/02/2022 1:19 PM EDT Pretty from [facility] Sleep lab calling asking for copy of office notes prior to home sleep study done in early January, discussing sleep apnea or snoring, etc. Printed office notes from 11/07/2021 and faxed to [phone] as requested. documented in this encounterPar[facility]09-16-2022 Miscellaneous Notes* Telephone Encounter - Lizzette Restrepo LPN - 01/23/2022 2:21 PM EDT Left detailed message with appt time. * Telephone Encounter - Aye Silvestre Ma - 01/21/2022 3:02 PM EDT Please see note below. Only appt's available are 1 day, Physical and Hospital f/u as well as PCP Flex. Aye Silvestre Ma * Telephone Encounter - Mariola Nwesome - 01/21/2022 2:32 PM EDT Spouse called stating patient was in the office today and was to have a 4 week follow up scheduled.Nothing available with Dr. Polk until March. Please schedule and advise. documented in this encounterPar[facility]09-14-2022 History of Present illness Narrative* Arsh Polk [...] consider seeing hematology. He will take it one step at ta time. Still fatigued. Remains on b12 and iron. [...] or hematology work up. Offered meds or counseling-not ready-I am old school. Sleep study: . This study confirms a [...] 81 mg by mouth once daily. Saw Bowlegs 160 mg capsule Take 160 mg by mouth once daily. LANCETS USE DIRECTED (Patient not taking: Reported on 07/22/2021) No current facility-administered medications for this visit. ALLERGIES: ALLERGIES Allergen Reactions Mai Inhibitors Other: See Comments Hyperkalemia Atorvastatin Myalgia Pravastatin Myalgia Hyjqkvg-Bpl-Qlk Red* Myalgia PAST MEDICAL HISTORY Diagnosis Date [...] Pulse (!) 55 Ht 177.8 cm (5' 10) Wt 135.6 kg (299 lb) SpO2 99% [...] DANIELLE in four weeks. documented in this encounterPar[facility]09-13-2022 Miscellaneous Notes* Telephone Encounter - Karson Johansen [...] inhouse titration.please set up documented in this encounterPar[facility]08-04-2022 History of Present illness Narrative* RT Mary(R) [...] 11, 2021 2:23 PM documented in this encounterParma [facility]08-03-2022 History of Present illness Narrative* Arsh Polk [...] consider seeing hematology. He will take it one step at ta time. Still fatigued. Remains on b12 and iron. [...] or hematology work up. Offered meds or counseling-not ready-I am old school. See previous ov: Accompanied by his today. [...] Has some fatigue. Says its due to being 80. Does admit to some depression occasionally but [...] Abs Lymph 1.00 - 4.00 k/uL 1.63 [place]% % 6.[address] [place] <0.87 k/uL 0.69 Eosin% % 2.0 Abs [...] 81 mg by mouth once daily. Saw Bowlegs 160 mg capsule Take 160 mg by [...] See Comments Hyperkalemia Atorvastatin Myalgia Pravastatin Myalgia Abiwkhj-Ies-Vmv Red* Myalgia PAST MEDICAL HISTORY Diagnosis Date [...] six weeks and prn. documented in this encounterPar[facility]08-01-2022 Miscellaneous Notes* Telephone Encounter - Karson Johansen LPN - 12/08/2021 10:44 AM EDT Patient phones requesting refills as follows: Pending Prescriptions Disp Refills METFORMIN ER 500 MG TABLET,EXTENDED RELEASE 24 HR 120 tablet 11 Sig: Take 4 tablets by mouth daily with breakfast. OSMANI: No BLAKE 11/07/21 NOV 12/10/21 Please review and advise. Karson Johansen LPN documented in this encounterPar[facility]07-26-2022 History of Present illness Narrative* Brynn Arroyo - 12/02/2021 12:36 PM EDT Sleep Study Check-In Documentation Date: December 02, 2021 Name: Axel Serrano Comments: HST was returned in work order, questionnaire completed. Patient failed sleep study. Called & left message to see if they would like to reschedule to try again. Brynn Arroyo * Bambi Baptiste - 11/27/2021 1:46 PM EDT Nomad# [id number] , date shipped out 11/27 Tracking mailout: [id number] Tracking return: [id number] * Ha Samuel III, PhD - 11/19/2021 12:25 PM EDT November 19, 2021 Standing PSG Orders signed in the last 90 days None Future PSG Orders signed in the last 90 days Ordered Auth. provider HOME SLEEP APNEA TEST (HSAT) [[id number]] 11/07/21 Arsh Polk MD Assoc. diagnoses: IRINEO [...] Sleep Apnea Test (HSAT) from [facility]. [facility] Staff. Visit prep complete. Comments :No The sleep study is scheduled for . Insurance: Payor: MEDICARE / Plan: MEDICARE A AND B / Product Type: Medicare / Payor/Plan Subscr Sex Relation Sub. Ins. ID Effective Group Num 1. MEDICARE - ME* RAMÍREZ SERRANO* 1940 Male Self [id number] 04/09/[address] MMO - MMO MED* RAMÍREZ SERRANO* 1940 Male Self [id number] 06/[birth year]19 [address] Martha Chandler documented in this encounterPar[facility]07-01-2022 Miscellaneous Notes* Telephone Encounter - Lizzette Restrepo LPN - 11/07/2021 11:29 AM EDT Notified pharmacy. * Telephone Encounter - Arsh Polk MD - 11/07/2021 11:06 AM EDT That is fine. * Telephone Encounter - Varsha Carlson RN - 11/07/2021 10:57 AM EDT Aundrea from [facility] called in and reports provider ordered ferrous gluconate with 28 mg of iron. She states they can only get it with 27 mg of iron in it. She was calling to ask if this was ok with the provider. Please notify pharmacy. documented in this encounterPar[facility]07-01-2022 History of Present illness Narrative* Arsh Polk [...] Has some fatigue. Says its due to being 80. Does admit to some depression occasionally but [...] Abs Lymph 1.00 - 4.00 k/uL 1.44 [place]% % 7.[address] [place] <0.87 k/uL 0.64 Eosin% % 2.2 Abs [...] 81 mg by mouth once daily. Saw Bowlegs 160 mg capsule Take 160 mg by [...] See Comments Hyperkalemia Atorvastatin Myalgia Pravastatin Myalgia Nidwjux-Mfl-Sau Red* Myalgia PAST MEDICAL HISTORY Diagnosis Date [...] after labs. and prn. documented in this encounterPar[facility]06-21-2022 History of Present illness Narrative* Darnell Mackey PA-C - 10/28/2021 11:12 AM EDT [facility] ESTABLISHED PATIENT NOTE [...] 81 mg by mouth once daily. Saw Bowlegs 160 mg capsule Take 160 mg by [...] (Temporal) Resp 14 Ht 177.8 cm (5' 10) Wt (!) 137 kg (302 lb) SpO2 [...] EDT CC Post Void Residual HPI: Axel Serraon is a 81 year old male. The [...] Plan: Appointment with Darnell. documented in this encounterParma [facility]06-19-2022 Miscellaneous Notes* Telephone Encounter - Shraddha Calabrese [...] INSTRUCTIONS: Shraddha Calabrese LPN documented in this encounterParma [facility]04-25-2022 Miscellaneous Notes* Telephone Encounter - Karson Johansen LPN - 09/01/2021 10:54 AM EDT Patient phones requesting refills as follows: Pending Prescriptions Disp Refills METOPROLOL TARTRATE 50 MG TABLET 60 tablet 5 Sig: Take 1 tablet by mouth twice daily. OSMANI: No BLAKE 07/30/21 NOV 11/07/21 Please review and advise. Karson Johansen LPN documented in this encounterPar[facility]10-08-2021 History of Present illness Narrative* Michelle Latham [...] 14, 2021 11:08 AM documented in this encounterParma [facility]07-01-2021 History of Present illness Narrative* Michelle Latham [...] 07, 2020 12:01 PM documented in this encounterParma [facility]06-10-2021 History of Present illness Narrative* Chelsy Granados RN - 10/17/2020 3:00 PM EDT Discharge instructions gone over with patient and patient's . No questions at this time. Peripheral IV removed. Valve card given to patient. Patient discharged home to be driven by family friend. documented in this encounterST[facility] Work Phone: 1(651) 748-392606-10-2021 Hospital Discharge instructions* Instructions* Alva Lara APRN - CNP - 10/17/2020 - Please call the [facility] with any questions: [phone] -You will have have the following follow [...] aspirin will be indefinite. documented in this [facility] Work Phone: [phone] Note Attestation signed by Reinier Shore MD at 10/22/2020 9:34 PM I, Dr. hSore, saw and evaluated the patient. I personally [...] 10/16/2020 Date of Discharge: 10/17/2020 Admitting physician: Reinier Shore MD Discharge Attending: Alva Lara APRN - BRIAN, Dr. Shaffer Primary Care Physician: Arsh Polk MD Reason for Admission: Severe Symptomatic Aortic Stenosis Consultants: cardiac rehab HOSPITAL ADMISSION PROBLEM LIST: Patient Active Problem List Diagnosis ? Nonrheumatic aortic valve stenosis ? 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 ? Essential hypertension [...] was provided. The p (more content not included)...[facility]10-19-2017 History of Past illness Narrative* Problem Noted [...] of this encounter (statuses as of 05/29/2022) [facility] Narrative* Problem Noted [...] of this encounter (statuses as of 06/22/2022) [facility] Narrative* Problem Noted [...] of this encounter (statuses as of 06/23/2022) [facility] Narrative* Problem Noted [...] of this encounter (statuses as of 07/09/2022) [facility] Narrative* Problem Noted [...] of this encounter (statuses as of 07/21/2022) [facility] Narrative* Problem Noted [...] of this encounter (statuses as of 07/21/2022) [facility] Narrative* Problem Noted [...] of this encounter (statuses as of 07/21/2022) [facility] Narrative* Problem Noted [...] of this encounter (statuses as of 10/23/2022) [facility] Narrative* Problem Noted [...] of this encounter (statuses as of 10/23/2022) [facility] Narrative* Problem Noted [...] of this encounter (statuses as of 11/03/2022) [facility] Narrative* Problem Noted [...] of this encounter (statuses as of 11/03/2022) [facility] Narrative* Problem Noted [...] of this encounter (statuses as of 11/13/2022) [facility] Narrative* Problem Noted [...] of this encounter (statuses as of 11/24/2022) [facility] Narrative* Problem Noted [...] of this encounter (statuses as of 11/26/2022) [facility] Narrative* Problem Noted [...] of this encounter (statuses as of 12/07/2022) [facility] Narrative* Problem Noted [...] of this encounter (statuses as of 01/27/2023) [facility] Narrative* Problem Noted [...] of this encounter (statuses as of 03/01/2023) [facility] Narrative* Problem Noted [...] of this encounter (statuses as of 03/14/2023) [facility] Narrative* Problem Noted [...] of this encounter (statuses as of 04/05/2023) [facility] Narrative* Problem Noted Date Resolved Date Bladder stone 08/19/2015 02/25/2017 Kidney stone 08/19/2015 02/25/2017 Diabetic neuropathy 04/03/2014 12/18/2014 Abdominal or pelvic swelling , mass, or lump, other specified site 05/24/2006 02/25/2017 DIABETES MELLITUS TYPE II-UNCOMPL 06/11/2005 12/18/2014 Other primary cardiomyopathies 06/11/2005 0 09/16/2017 documented as of this encounter (statuses as of 09/01/2021) [facility] Narrative* Problem Noted Date Resolved Date Bladder stone 08/19/2015 02/25/2017 Kidney stone 08/19/2015 02/25/2017 Diabetic neuropathy 04/03/2014 12/18/2014 Abdominal or pelvic swelling , mass, or lump, other specified site 05/24/2006 02/25/2017 DIABETES MELLITUS TYPE II-UNCOMPL 06/11/2005 12/18/2014 Other primary cardiomyopathies 06/11/2005 0 09/16/2017 documented as of this encounter (statuses as of 10/27/2021) [facility] Narrative* Problem Noted Date Resolved Date Bladder stone 08/19/2015 02/25/2017 Kidney stone 08/19/2015 02/25/2017 Diabetic neuropathy 04/03/2014 12/18/2014 Abdominal or pelvic swelling , mass, or lump, other specified site 05/24/2006 02/25/2017 DIABETES MELLITUS TYPE II-UNCOMPL 06/11/2005 12/18/2014 Other primary cardiomyopathies 06/11/2005 0 09/16/2017 documented as of this encounter (statuses as of 10/28/2021) [facility] Narrative* Problem Noted Date Resolved Date Bladder stone 08/19/2015 02/25/2017 Kidney stone 08/19/2015 02/25/2017 Diabetic neuropathy 04/03/2014 12/18/2014 Abdominal or pelvic swelling , mass, or lump, other specified site 05/24/2006 02/25/2017 DIABETES MELLITUS TYPE II-UNCOMPL 06/11/2005 12/18/2014 Other primary cardiomyopathies 06/11/2005 0 09/16/2017 documented as of this encounter (statuses as of 11/07/2021) [facility]04-11-2016 History of Past illness Narrative* Problem Noted Date Resolved Date Bladder stone 08/19/2015 02/25/2017 Kidney stone 08/19/2015 02/25/2017 Diabetic neuropathy 04/03/2014 12/18/2014 Abdominal or pelvic swelling , mass, or lump, other specified site 05/24/2006 02/25/2017 DIABETES MELLITUS TYPE II-UNCOMPL 06/11/2005 12/18/2014 Other primary cardiomyopathies 06/11/2005 0 09/16/2017 documented as of this encounter (statuses as of 11/07/2021) [facility] History of Past illness Narrative* Problem Noted Date Resolved Date Bladder stone 08/19/2015 02/25/2017 Kidney stone 08/19/2015 02/25/2017 Diabetic neuropathy 04/03/2014 12/18/2014 Abdominal or pelvic swelling , mass, or lump, other specified site 05/24/2006 02/25/2017 DIABETES MELLITUS TYPE II-UNCOMPL 06/11/2005 12/18/2014 Other primary cardiomyopathies 06/11/2005 0 09/16/2017 documented as of this encounter (statuses as of 12/02/2021) [place] [id number] History of Past illness Narrative* Problem Noted Date Resolved Date Bladder stone 08/19/2015 02/25/2017 Kidney stone 08/19/2015 02/25/2017 Diabetic neuropathy 04/03/2014 12/18/2014 Abdominal or pelvic swelling , mass, or lump, other specified site 05/24/2006 02/25/2017 DIABETES MELLITUS TYPE II-UNCOMPL 06/11/2005 12/18/2014 Other primary cardiomyopathies 06/11/2005 0 09/16/2017 documented as of this encounter (statuses as of 12/08/2021) [facility] History of Past illness Narrative* Problem Noted Date Resolved Date Bladder stone 08/19/2015 02/25/2017 Kidney stone 08/19/2015 02/25/2017 Diabetic neuropathy 04/03/2014 12/18/2014 Abdominal or pelvic swelling , mass, or lump, other specified site 05/24/2006 02/25/2017 DIABETES MELLITUS TYPE II-UNCOMPL 06/11/2005 12/18/2014 Other primary cardiomyopathies 06/11/2005 0 09/16/2017 documented as of this encounter (statuses as of 12/10/2021) [facility] History of Past illness Narrative* Problem Noted Date Resolved Date Bladder stone 08/19/2015 02/25/2017 Kidney stone 08/19/2015 02/25/2017 Diabetic neuropathy 04/03/2014 12/18/2014 Abdominal or pelvic swelling , mass, or lump, other specified site 05/24/2006 02/25/2017 DIABETES MELLITUS TYPE II-UNCOMPL 06/11/2005 12/18/2014 Other primary cardiomyopathies 06/11/2005 0 09/16/2017 documented as of this encounter (statuses as of 12/12/2021) [facility] History of Past illness Narrative* Problem Noted Date Resolved Date Bladder stone 08/19/2015 02/25/2017 Kidney stone 08/19/2015 02/25/2017 Diabetic neuropathy 04/03/2014 12/18/2014 Abdominal or pelvic swelling , mass, or lump, other specified site 05/24/2006 02/25/2017 DIABETES MELLITUS TYPE II-UNCOMPL 06/11/2005 12/18/2014 Other primary cardiomyopathies 06/11/2005 0 09/16/2017 documented as of this encounter (statuses as of 12/12/2021) [facility] History of Past illness Narrative* Problem Noted Date Resolved Date Bladder stone 08/19/2015 02/25/2017 Kidney stone 08/19/2015 02/25/2017 Diabetic neuropathy 04/03/2014 12/18/2014 Abdominal or pelvic swelling , mass, or lump, other specified site 05/24/2006 02/25/2017 DIABETES MELLITUS TYPE II-UNCOMPL 06/11/2005 12/18/2014 Other primary cardiomyopathies 06/11/2005 0 09/16/2017 documented as of this encounter (statuses as of 01/20/2022) [facility] History of Past illness Narrative* Problem Noted Date Resolved Date Bladder stone 08/19/2015 02/25/2017 Kidney stone 08/19/2015 02/25/2017 Diabetic neuropathy 04/03/2014 12/18/2014 Abdominal or pelvic swelling , mass, or lump, other specified site 05/24/2006 02/25/2017 DIABETES MELLITUS TYPE II-UNCOMPL 06/11/2005 12/18/2014 Other primary cardiomyopathies 06/11/2005 0 09/16/2017 documented as of this encounter (statuses as of 01/21/2022) [facility] History of Past illness Narrative* Problem Noted Date Resolved Date Bladder stone 08/19/2015 02/25/2017 Kidney stone 08/19/2015 02/25/2017 Diabetic neuropathy 04/03/2014 12/18/2014 Abdominal or pelvic swelling , mass, or lump, other specified site 05/24/2006 02/25/2017 DIABETES MELLITUS TYPE II-UNCOMPL 06/11/2005 12/18/2014 Other primary cardiomyopathies 06/11/2005 0 09/16/2017 documented as of this encounter (statuses as of 01/23/2022) [facility] History of Past illness Narrative* Problem Noted Date Resolved Date Bladder stone 08/19/2015 02/25/2017 Kidney stone 08/19/2015 02/25/2017 Diabetic neuropathy 04/03/2014 12/18/2014 Abdominal or pelvic swelling , mass, or lump, other specified site 05/24/2006 02/25/2017 DIABETES MELLITUS TYPE II-UNCOMPL 06/11/2005 12/18/2014 Other primary cardiomyopathies 06/11/2005 0 09/16/2017 documented as of this encounter (statuses as of 03/02/2022) [facility] History of Past illness Narrative* Problem Noted Date Resolved Date Bladder stone 08/19/2015 02/25/2017 Kidney stone 08/19/2015 02/25/2017 Diabetic neuropathy 04/03/2014 12/18/2014 Abdominal or pelvic swelling , mass, or lump, other specified site 05/24/2006 02/25/2017 DIABETES MELLITUS TYPE II-UNCOMPL 06/11/2005 12/18/2014 Other primary cardiomyopathies 06/11/2005 0 09/16/2017 documented as of this encounter (statuses as of 03/09/2022) [facility] History of Past illness Narrative* Problem Noted Date Resolved Date Bladder stone 08/19/2015 02/25/2017 Kidney stone 08/19/2015 02/25/2017 Diabetic neuropathy 04/03/2014 12/18/2014 Abdominal or pelvic swelling , mass, or lump, other specified site 05/24/2006 02/25/2017 DIABETES MELLITUS TYPE II-UNCOMPL 06/11/2005 12/18/2014 Other primary cardiomyopathies 06/11/2005 0 09/16/2017 documented as of this encounter (statuses as of 03/11/2022) [facility] History of Past illness Narrative* Problem Noted Date Resolved Date Bladder stone 08/19/2015 02/25/2017 Kidney stone 08/19/2015 02/25/2017 Diabetic neuropathy 04/03/2014 12/18/2014 Abdominal or pelvic swelling , mass, or lump, other specified site 05/24/2006 02/25/2017 DIABETES MELLITUS TYPE II-UNCOMPL 06/11/2005 12/18/2014 Other primary cardiomyopathies 06/11/2005 0 09/16/2017 documented as of this encounter (statuses as of 04/06/2022) [facility] History of Past illness Narrative* Problem Noted Date Resolved Date Bladder stone 08/19/2015 02/25/2017 Kidney stone 08/19/2015 02/25/2017 Diabetic neuropathy 04/03/2014 12/18/2014 Abdominal or pelvic swelling , mass, or lump, other specified site 05/24/2006 02/25/2017 DIABETES MELLITUS TYPE II-UNCOMPL 06/11/2005 12/18/2014 Other primary cardiomyopathies 06/11/2005 0 09/16/2017 documented as of this encounter (statuses as of 05/12/2022) [facility] Diagnosis Aortic valve stenosis, etiology of cardiac valve disease unspecified Dyspnea on exertion Other dyspnea and respiratory abnormality documented in this encounter [facility] Work Phone: Evaluation note* Diagnosis Severe aortic stenosis Aortic valve disorders documented in this encounter [facility] Work Phone: Evaluation note* Diagnosis Severe aortic stenosis Aortic valve disorders documented in this encounter [facility] Work Phone: Evaluation note* Diagnosis Onset Date Resolution Status Anemia acute 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 chronic CHF (congestive heart failure), NYHA class III chronic 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, 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 HLD (hyperlipidemia) [facility] Work Phone: Evaluation note* Diagnosis Phimosis- Primary Redundant prepuce and phimosis [facility] Diagnosis Essential hypertension, benign- Primary Mixed [...] B12 deficiency type [facility] Diagnosis Onset Date Resolution Status Anemia acute 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 chronic CHF (congestive heart failure), NYHA class III chronic 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, 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 HLD (hyperlipidemia) chronic Encounter for screening colonoscopy [facility] Work Phone: Evaluation note* Diagnosis Fatigue, unspecified [...] of lymph nodes [facility]* Diagnosis 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, unspecified site, extranodal and solid organ sites Lymphadenopathy, abdominal Enlargement of lymph nodes Localized enlarged lymph nodes Enlargement of lymph nodes [facility] Diagnosis IRINEO (obstructive sleep apnea)- Primary Obstructive sleep apnea (adult) (pediatric) [facility]* Diagnosis Fatigue, unspecified type- Primary Encounter for immunization Need for other specified prophylactic vaccination against single bacterial disease Anxiety with depression IRINEO (obstructive sleep apnea) Obstructive sleep apnea (adult) (pediatric) [facility] Diagnosis Onset Date Resolution Status Constipation acute Tubular adenoma of colon acu te Obstructive sleep apnea acut e Atherosclerotic heart diseas e of [place] coronary artery without angina pectoris chronic CHF (congestive heart failure), NYHA class III chronic 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, 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 HLD (hyperlipidemia) chronic Hypersomnolence [facility] Work Phone: evaluation note* Diagnosis Diabetic polyneuropathy associated with type 2 diabetes mellitus (HCC) [facility] Diagnosis Diabetic polyneuropathy associated with type [...] apnea (adult) (pediatric) [facility] noteNo assessment information availableWCl[facility] Work Phone: evaluwanja note* Diagnosis URI, acute- Primary Acute upper respiratory infections of unspecified site Acute cough [facility]* Diagnosis Fatigue, unspecified type Anxiety with depression documented in this encounter [facility] note* Diagnosis Diabetic polyneuropathy associated with type 2 diabetes mellitus (HCC)- Primary Mixed hyperlipidemia Vitamin D deficiency Unspecified vitamin D deficiency Type 2 diabetes mellitus with stage 3 chronic kidney disease, without long-term current use of insulin, 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) [facility]* Diagnosis IRINEO on CPAP- Primary Obstructive sleep apnea (adult) (pediatric) Treatment-emergent central sleep apnea Parkinson disease (HCC) Paralysis agitans [facility]* Diagnosis Anemia due to folic acid deficiency, unspecified deficiency type [facility]* Diagnosis Parkinson disease (HCC)- Primary Paralysis agitans Weakness of both lower extremities Lumbar degenerative disc disease Degeneration of lumbar or lumbosacral intervertebral disc Other symptoms and signs involving the nervous system [facility]* Diagnosis Other symptoms and signs involving the nervous system [facility] Diagnosis Diabetic polyneuropathy associated with type 2 diabetes mellitus (HCC) [facility]* Diagnosis Mixed hyperlipidemia- Primary Essential hypertension, [...] diabetes mellitus (HCC) [facility]* Diagnosis Fatigue, unspecified type Anxiety with depression documented in this encounter [facility] note* Diagnosis Parkinson's disease, unspecified whether dyskinesia present, unspecified whether manifestations fluctuate ([facility])- Primary Weakness of both lower extremities Lumbar [...] obesity type, unspecified whether serious comorbidity present ([facility]) documented in this encounter [facility] note* Diagnosis Diabetic polyneuropathy associated with type 2 diabetes mellitus (HCC)- Primary Hypersomnia Hypersomnia, unspecified Aortic valve stenosis, etiology of cardiac valve disease unspecified History of non-ST elevation myocardial infarction (NSTEMI) Old myocardial infarction Hypertensive kidney disease with stage 3 chronic kidney disease, 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) Mixed hyperlipidemia Essential hypertension, benign 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 Multiple premature ventricular [...] apnea (adult) (pediatric) [facility]* Diagnosis Anemia, unspecified type- Primary [facility] Diagnosis IRINEO (obstructive sleep apnea)- Primary Obstructive sleep apnea (adult) (pediatric) Treatment-emergent central sleep apnea [facility] Anemia, unspecified type- Primary [facility] Anemia, unspecified type [facility] 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) Stage 3b chronic kidney disease (HCC) [facility] Diagnosis 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) Stage 3b chronic kidney disease (HCC) [facility] 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) Stage 3b chronic kidney disease (HCC) [facility] 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) Stage 3b chronic kidney disease (HCC) [facility] Diagnosis Anemia due to folic acid deficiency, unspecified deficiency type [facility] Diagnosis Weakness of both lower extremities- Primary Parkinson's disease, unspecified whether dyskinesia present, unspecified whether manifestations fluctuate (HCC) Sciatica of right side Sciatica Neuropathy Mononeuritis of unspecified site Abnormality of gait Depression, unspecified depression type Lumbar degenerative disc disease Degeneration of lumbar or lumbosacral intervertebral disc [facility] Diagnosis 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)- Primary Iron malabsorption Other specified intestinal malabsorption [facility] Diagnosis Anemia, unspecified type Stage 3b chronic kidney disease (HCC) Iron malabsorption Other specified intestinal malabsorption [facility] Diagnosis Rib pain on right side- Primary Chest pain, unspecified Closed fracture of multiple ribs of right side, initial encounter Rib pain on right side Chest pain, unspecified [facility] Diagnosis Rib pain on right side Chest pain, unspecified [facility] Diagnosis URI, acute Acute upper respiratory infections of unspecified site Acute cough [facility] Diagnosis Open fracture of multiple ribs [...] and blood-forming organs [facility]* Diagnosis 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)- Primary [facility] Diagnosis Cough [facility] Diagnosis Diarrhea, unspecified type Cough [facility] Diagnosis 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)- Primary [facility] Diagnosis 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)- Primary [facility] Diagnosis 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)- Primary [facility] Diagnosis 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)- Primary [facility]* Diagnosis Parkinson's disease, unspecified whether dyskinesia present, unspecified whether manifestations fluctuate (HCC)- Primary Essential hypertension, benign Mixed hyperlipidemia Hypertensive kidney disease with stage 3 chronic kidney disease, 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) 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 IRINEO (obstructive sleep [...] adult (HCC) Body Mass Index 40.0-44.9, adult Acute pain of left shoulder [facility] Diagnosis Parkinson's disease, unspecified whether dyskinesia present, unspecified whether manifestations fluctuate ([facility])- Primary Spinal stenosis of lumbar region with [...] obesity type, unspecified whether serious comorbidity present ([facility]) [facility] [...] humerus, initial encounter [facility] Diagnosis Anxiety- Primary Anxiety state, unspecified [facility] Diagnosis 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)- Primary [facility] Diagnosis 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)- Primary Iron malabsorption Other specified intestinal malabsorption [facility]* Diagnosis Parkinson's disease with dyskinesia, unspecified whether manifestations fluctuate (HCC)- Primary Anxiety Anxiety state, unspecified Diabetic polyneuropathy associated with type 2 diabetes mellitus (HCC) Benign prostatic hyperplasia without lower urinary tract symptoms Paroxysmal atrial fibrillation (HCC) Atrial fibrillation Age-related physical debility Senility without mention of psychosis [facility] Diagnosis Diabetic polyneuropathy associated with type 2 diabetes mellitus (HCC) [facility] Diagnosis 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)- Primary [facility] Diagnosis 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)- Primary Iron malabsorption Other specified intestinal malabsorption [facility] Diagnosis Fatigue, unspecified type Anxiety with depression [facility]* Diagnosis Tremor, essential- Primary Essential and other specified forms of tremor Parkinson's disease, unspecified whether dyskinesia present, unspecified whether manifestations fluctuate (HCC) Essential hypertension, benign Mixed hyperlipidemia Aortic valve stenosis, etiology of cardiac valve disease unspecified Hypertensive kidney disease with stage 3 chronic kidney disease, 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) 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 LV dysfunction Heart [...] Diarrhea, unspecified type [facility] Diagnosis 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)- Primary [facility] Diagnosis Anemia due to vitamin B12 deficiency, unspecified B12 deficiency type- Primary [facility] Diagnosis 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)- Primary [facility]* Diagnosis Parkinson's disease, unspecified whether dyskinesia present, unspecified whether manifestations fluctuate (HCC)- Primary Abnormality of gait Altered mental status, unspecified altered mental status type IRINEO on CPAP Obstructive sleep apnea (adult) (pediatric) Treatment-emergent central sleep apnea [facility] Diagnosis Parkinson's disease, unspecified whether dyskinesia present, unspecified whether manifestations fluctuate (HCC) Abnormality of gait Altered mental status, unspecified altered mental status type [facility] Diagnosis 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)- Primary [facility] Diagnosis Subdural hematoma (HCC) Subdural hemorrhage [facility] Diagnosis Subdural hematoma, chronic (HCC)- Primary Subdural hemorrhage [facility] Diagnosis Diabetic polyneuropathy associated with type 2 diabetes mellitus (HCC)- Primary Mixed hyperlipidemia Pressure injury of buttock, stage 2, unspecified laterality (HCC) Parkinson's disease without dyskinesia or fluctuating manifestations (HCC) Tinea corporis Dermatophytosis of the body documented [facility] Diagnosis 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)- Primary [facility]* Diagnosis Tremor, essential- Primary Essential and other specified forms of tremor Diabetic polyneuropathy associated with type 2 diabetes mellitus (HCC) Parkinson's disease without dyskinesia or fluctuating manifestations (HCC) Essential hypertension, benign Mixed hyperlipidemia Aortic valve stenosis, etiology of cardiac valve disease unspecified Hypertensive kidney disease with stage 3b chronic kidney disease (HCC) 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 Type 2 diabetes mellitus with stage 3 chronic kidney disease, without long-term current use of insulin, 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) TIA (transient ischemic attack) Unspecified transient cerebral ischemia [facility] Pressure injury of sacral region, stage 2 (HCC)- Primary documented in this encounter [facility] note* Diagnosis Paroxysmal atrial fibrillation (HCC) Atrial fibrillation documented in this encounter [facility] note* Diagnosis 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)- Primary documented in this encounter [facility] note* Diagnosis 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)- Primary documented in this encounter [facility] note* Diagnosis Medicare annual wellness visit, subsequent- Primary Routine general medical examination at a [facility] care facility Hypertensive heart and chronic kidney [...] diabetes mellitus (HCC) 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 Essential hypertension, benign [...] toe(s) alone, complicated documented in this encounter [facility] note* Diagnosis Parkinson's disease, unspecified whether dyskinesia present, unspecified whether manifestations fluctuate (HCC) documented in this encounter [facility] note* Diagnosis Falls frequently- Primary Personal history of fall documented in this encounter [facility] for referral (narrative)* Diagnostic Procedure Only (Routine) - Authorized Specialty Diagnoses / Procedures Referred By Contac t Referred To Contact [facility] Diagnoses IRINEO (obstructive sleep apnea) Procedures HOME SLEEP APNEA TEST (HSAT) SLEEP STD AIRFLOW HRT RATE&O2 SAT EFFORT Arsh Vines MD [address] [place] [address] Neurological [place] [address] [place] [id number] Referral ID Status Reason Start Date Expiration Date Visits Requested Visits Authorized [id number] Authorized Auto-Generat ed Referral 11/07/2021 11/07/2022 1 1 [facility] for referral (narrative)* Diagnostic Procedure Only (Urgent) - Closed Specialty Diagnoses / Procedures Referred By Contac t Referred To Contact XR IMAGING Diagnoses Rib pain on right side Procedures XR RIBS/CHEST 3V AP RIB/OBLS/CXR RIGHT RADEX RIBS UNI W/POSTEROANT CH MINIMUM 3 VIEWS Gabriel Butler APRN.PROP DRAWER [address] [place] [address] [place] [address] Referral ID Status Reason Start Date Expiration Date V isits Requested Visits Authorized [id number] Closed Auto-Generate d Referral 01/26/2024 02/24/2025 1 1 [facility] for referral (narrative)* Diagnostic Procedure Only (Urgent) - Closed Specialty Diagnoses / Procedures Referred By Contac t Referred To Contact XR IMAGING Diagnoses Rib pain on right side Procedures XR RIBS/CHEST 3V AP RIB/OBLS/CXR RIGHT RADEX RIBS UNI W/POSTEROANT CH MINIMUM 3 VIEWS Gabriel Butler APRN.PROP DRAWER [address] [facility] [place] [address] [place] [address] Referral ID Status Reason Start Date Expiration Date V isits Requested Visits Authorized [id number] Closed Auto-Generate d Referral 01/26/2024 02/24/2025 1 1 [facility] for referral (narrative)* Diagnostic Procedure Only (Routine) - Closed Specialty Diagnoses / Procedures Referred By Contac t Referred To Contact XR IMAGING Diagnoses Acute pain of left shoulder Procedures XR SHOULDER GENERAL 3V OR MORE AP/TRUE AP/OTHER LEFT RADEX SHOULDER COMPLETE MINIMUM 2 VIEWS Arsh Polk MD [address] [place] [id number] [place] [address] Referral ID Status Reason Start Date Expiration Date V isits Requested Visits Authorized [id number] Closed Auto-Generate d Referral 03/27/2024 04/26/2025 1 1 [facility] for referral (narrative)No reason for referral information availableSt[facility] Work Phone: [facility] for [facility] Narrative* Diagnostic Procedure Only (Urgent) - Closed Specialty Diagnoses / Procedures Referred By Contac t Referred To Contact XR IMAGING Diagnoses Rib pain on right side Procedures XR RIBS/CHEST 3V AP RIB/OBLS/CXR RIGHT RADEX RIBS UNI W/POSTEROANT CH MINIMUM 3 VIEWS Gabriel Butler APRN.PROP DRAWER [address] [place] [address] [place] [address] Referral ID Status Reason Start Date Expiration Date V isits Requested Visits Authorized [id number] Closed Auto-Generate d Referral 01/26/2024 02/24/2025 1 1 [facility] for visit Narrative* Diagnostic Procedure Only (Routine) - Closed Specialty Diagnoses / Procedures Referred By Contac t Referred To Contact XR IMAGING Diagnoses Acute pain of left shoulder Procedures XR SHOULDER GENERAL 3V OR MORE AP/TRUE AP/OTHER LEFT RADEX SHOULDER COMPLETE MINIMUM 2 VIEWS Arsh Polk MD [address] [place] [address] [place] [address] Referral ID Status Reason Start Date Expiration Date V isits Requested Visits Authorized [id number] Closed Auto-Generate d Referral 03/27/2024 04/26/2025 1 1 [facility]/CT (Routine) - Closed Specialty Diagnoses / Procedures Referred By Preetac t Referred To Contact MR IMAGING Diagnoses Parkinson's disease, unspecified whether dyskinesia present, unspecified whether manifestations fluctuate (HCC) Abnormality of gait Altered mental status, unspecified altered mental status type Procedures MRI BRAIN WO IVCON MRI BRAIN BRAIN STEM W/O CONTRAST MATERIAL Arsh Otto Jr., MD [facility] [place] [address] Phone: tel: fax: MR IMAGING [place] [address] Referral ID Status Reason Start Date Expiration Date V isits Requested Visits Authorized [id number] Closed Auto-Generate d Referral 10/20/2024 11/19/2025 1 1 [facility] Reason for Referral Status Reason Specialty Diagnoses / Procedures Referre d By Contact Referred To Contact Closed Radiology Diagnoses Aortic valve stenosis, etiology of cardiac valve disease unspecified Procedures CTA CHEST ABDOMEN PELVIS W CONTRAST Alav Lara, MANAGER SOFTWARE DEVELOPMENT - PROP DRAWER [address] [address] Specialty Diagnoses / Procedures Referred By Contac t Referred To Contact CT IMAGING Diagnoses 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) Lymphadenopathy, abdominal Localized enlarged lymph nodes Procedures CT ABD/PEL WO IVCON CT ABD & PELVIS W/O CONTRAST Arsh Polk MD [facility] [place] [address] Ct Imaging Referral ID Status Reason Start Date Expiration Date Visits Requested Visits Authorized [id number] Authorized Auto-Generat ed Referral 12/10/2021 01/09/2023 1 1 Referral ID Status Reason Start Date Expiration Date V isits Requested Visits Authorized [id number] Closed Auto-Generate d Referral 12/10/2021 01/09/2023 1 1 Specialty Diagnoses / Procedures Referred By Preetac t Referred To Contact MR IMAGING Diagnoses Other symptoms and signs involving the nervous system Procedures MRI BRAIN WO IVCON MRI BRAIN BRAIN STEM W/O CONTRAST MATERIAL Kaylee Herrmann PA-C [address] [place] [address] [place] [address] Referral ID Status Reason Start Date Expiration Date Visits Requested Visits Authorized [id number] Authorized Auto-Generat ed Referral 01/26/2023 02/25/2024 1 1 Specialty Diagnoses / Procedures Referred By Contac t Referred To Contact [facility] Diagnoses Weakness of both lower extremities Lumbar degenerative disc disease Procedures CONSULT TO PHYSICAL THERAPY PHYSICAL THERAPY [facility] 45 MINS Kaylee Herrmann PA-C [address] [place] [address] [facility] [place] [address] [place] [address] Referral ID Status Reason Start Date Expiration Date Visits Requested Visits Authorized [id number] Authorized PCP Requested Referral Auto-Generate d Referral 01/26/2023 01/26/2024 99 99 Specialty Diagnoses / Procedures Referred By Contac t Referred To Contact MR IMAGING Diagnoses Other symptoms and signs involving the nervous system Procedures MRI BRAIN WO IVCON MRI BRAIN BRAIN STEM W/O CONTRAST MATERIAL Kaylee Herrmann PA-C [address] [place] [address] [place] [address] Referral ID Status Reason Start Date Expiration Date V isits Requested Visits Authorized [id number] Closed Auto-Generate d Referral 01/26/2023 02/25/2024 1 1 Specialty Diagnoses / Procedures Referred By Contac t Referred To Contact Nephrology Diagnoses Stage 3b chronic kidney disease (HCC) Anemia of chronic renal failure, stage 3a (HCC) (HCC) Procedures CONSULT TO NEPHROLOGY OFFICE/OUTPATIENT [facility] 60 MINUTES Arsh Polk MD [address] [place] [phone] Referral ID Status Reason Start Date Expiration Date Visits Requested Visits Authorized [id number] Authorized PCP Requested Referral 06/17/2023 06/16/2024 1 1 Specialty Diagnoses / Procedures Referred By Contac t Referred To Contact [facility] Diagnoses Parkinson's disease, unspecified whether dyskinesia present, unspecified whether manifestations fluctuate (HCC) Weakness of both lower extremities Lumbar degenerative disc disease Sciatica of right side Neuropathy Abnormality of gait Procedures CONSULT TO BOARD CERTIFIED BEHAVIORAL ANALYST OCCUPATIONAL THERAPY EVAL [facility] 60 MINS Arsh Otto Jr., MD [address] [facility] [address] [place] [address] [address] Referral ID Status Reason Start Date Expiration Date Visits Requested Visits Authorized [id number] Authorized PCP Requested Referral Auto-Generate d Referral [...] CONSULT TO PHYSICAL THERAPY PHYSICAL THERAPY EVALUATION [facility] 45 MINS Arsh Otto Jr., MD [address] [facility] [address] [place] [address] [address] Referral ID Status Reason Start Date Expiration Date Visits Requested Visits Authorized [id number] Authorized PCP Requested Referral Auto-Generate d Referral 09/06/2023 09/05/2024 99 99 Specialty Diagnoses / Procedures Referred By Contac t Referred To Contact Hematology Diagnoses Anemia, unspecified type Procedures CONSULT TO HEMATOLOGY OFFICE/OUTPATIENT [facility] 60 MINUTES Arsh Polk MD [address] [place] [address] Referral ID Status Reason Start Date Expiration Date Visits Requested Visits Authorized [id number] Authorized PCP Requested Referral 11/08/2023 11/07/2024 1 1 Specialty Diagnoses / Procedures Referred By Contac t Referred To Contact [facility] Diagnoses Parkinson's disease, unspecified whether dyskinesia present, unspecified whether manifestations fluctuate (HCC) Abnormality of gait Procedures CONSULT TO PHYSICAL THERAPY PHYSICAL THERAPY EVALUATION [facility] 45 MINS Arsh Otto Jr., MD [address] [place] [address] [address] Referral ID Status Reason Start Date Expiration Date Visits Requested Visits Authorized [id number] Authorized PCP Requested Referral Auto-Generate d Referral 4 03/27/2025 99 99 Specialty Diagnoses / Procedures Referred By Contac t Referred To Contact MR IMAGING Diagnoses Acute pain of left shoulder due to trauma Procedures MRI SHOULDER WO IVCON LEFT MRI ANY JT UPPER EXTREMITY W/O CONTRAST VICKYL Arsh Otto Jr., MD [address] [place], [place] [id number] Mr Imaging [facility] Referral ID Status Reason Start Date Expiration Date Visits Requested Visits Authorized [id number] Authorized Auto-Generat ed Referral 4 04/26/2025 1 1 Specialty Diagnoses / Procedures Referred By Contac t Referred To Contact MR IMAGING Diagnoses Spinal stenosis of lumbar region with neurogenic claudication Procedures MRI LUMBAR SPINE WO IVCON MRI SPINAL CANAL LUMBAR W/O CONTRAST MATERIAL Arsh Otto Jr., MD [address] [place], [place] [id number] Mr Imaging [facility] Referral ID Status Reason Start Date Expiration Date Visits Requested Visits Authorized [id number] Authorized Auto-Generat ed Referral 4 04/26/2025 1 1 Specialty Diagnoses / Procedures Referred By Contac t Referred To Contact Orthopedics Diagnoses Other closed nondisplaced fracture of proximal end of humerus, unspecified laterality, initial encounter Procedures CONSULT TO ORTHOPAEDICS OFFICE/OUTPATIENT [facility] 60 MINUTES Arsh Polk MD [address] [place], [place] [id number] Referral ID Status Reason Start Date Expiration Date Visits Requested Visits Authorized [id number] Authorized PCP Requested Referral 4 03/30/2025 1 1 Referral ID Status Reason Start Date Expiration Date V isits Requested Visits Authorized [id number] Closed Auto-Generate d Referral 03/27/2024 04/26/2025 1 1 Referral ID Status Reason Start Date Expiration Date V isits Requested Visits Authorized [id number] Closed Auto-Generate d Referral 03/27/2024 04/26/2025 1 1 Advance Directives No Advanced Directives Records FoundDocuments on File Type Date Recorded Patient Ivf Embryologist Expl anation ACP-Advance Directive 10/03/2020 12:00 AM Latest Code Status on File Code Status Date Activated Date Inactivated Comments Full Code 10/16/2020 10:08 AM Full Code 10/16/2020 6:42 AM 10/16/2020 9:29 AM Latest Code Status on File Code Status Date Activated Date Inactivated Comments Full Code 10/16/2020 10:08 AM 10/17/2020 5:24 PM Documents on File Type Date Recorded Patient Ivf Embryologist Expl anation Advance Directive(s) 10/02/2015 6:41 AM Advance Directive(s) 09/10/2015 12:38 PM Advance Directive(s) 09/03/2015 9:15 AM Advance Directive Response Recorded Date/ Time Advance Directives Yes August 14 7:01am Living Will Yes August 14, 2020 7:01am Power of Regulatory Intern Yes August 14 7:01am Documents on File Type Date Recorded Patient Ivf Embryologist Expl anation Advance Directive(s) 10/02/2015 6:41 AM Advance Directive(s) 09/10/2015 12:38 PM Advance Directive(s) 09/03/2015 9:15 AM Advance Directive Response Recorded Date/ Time Name of Medical Power of Regulatory Intern November 11, 2021 12:24pm Advance Directives Yes August 14 7:01am Living Will Yes November 11, 2021 1 2:24pm Power of Regulatory Intern Yes November 11, 2021 12:24pm Advance Directive Response Recorded Date/ Time Advance Directives Yes August 14 6:01am Living Will Yes November 11, 2021 1 1:24am Power of Regulatory Intern Yes November 11, 2021 11:24am Advance Directive Response Recorded Date/ Time Advance Directives Yes August 14 7:01am Living Will Yes November 11, 2021 1 2:24pm Power of Regulatory Intern Yes November 11, 2021 12:24pm Documents on File Type Date Recorded Patient Ivf Embryologist Expl anation Advance Directive(s) 12/04/2022 11:42 AM Documents on File Type Date Recorded Patient Ivf Embryologist Expl anation Advance Directive(s) 12/04/2022 11:42 AM Advance Directive Response Recorded Date/ Time Living Will Yes November 11, 2021 1 2:24pm Do you have a Healthcare Power of Regulatory Intern? Yes November 11, 2021 12:24pm Do you have a Healthcare Power of Regulatory Intern? 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 CHF (congestive heart failure), NYHA class III History of transcatheter aortic valve replacement (TAVR) HLD (hyperlipidemia) Encounter for screening colonoscopy Chief Complaint EORDER 2 WK FU 4 M FU IRINEO Reason for Visit Constipation Tubular adenoma of colon Obstructive sleep apnea Atherosclerotic heart disease of [place] coronary artery without angina pectoris CHF (congestive heart failure), NYHA class III History of transcatheter aortic valve replacement (TAVR) HLD (hyperlipidemia) Hypersomnolence Chief Complaint EORDER 2 WK FU 4 M FU IRINEO IRINEO Reason for Visit Constipation Tubular adenoma of colon Obstructive sleep apnea Atherosclerotic heart disease of [place] coronary artery without angina pectoris CHF (congestive heart failure), NYHA class III History of transcatheter aortic valve replacement (TAVR) HLD (hyperlipidemia) Hypersomnolence Chief Complaint IRINEO IRINEO IRINEO Chief Complaint [place] Chief Complaint CKD3 Chief Complaint Admit Date S/P [facility] 05/19August 09, 2024 12:4 5pm PAROXYSMAL A-FIB August 31, 2024 10: 51am PAROXYSMAL A-FIB August 31, 2024 11: 12am CHEST PAIN September 03, 2024 10: 43am 1 Y FU November 14, 2024 11:06 am Reason for Visit Admit Date Atherosclerotic heart diseas e of [place] coronary artery without angina pectoris August 09, 2024 12:45pm CHF (congestive heart failure), NYHA cla ss III August 09, 2024 12:45pm History of transcatheter aortic valve re placement (TAVR) August 09, 2024 12:45pm HLD (hyperlipidemia) August 09, 2024 12: 45pm Paroxysmal atrial fibrillation with RVR August 09, 2024 12:45pm Parkinson disease November 14, 2024 11:06 am Atherosclerotic heart diseas e of [place] coronary artery without angina pectoris November 14, [...] or break. 0756 (Given - Provider: Chelsy Granados, FRANKY) atorvastatin (LIPITOR) tablet 40 mg 40 mg, Oral, DAILY, First dose on Wed10/16/20 at 2100 2012 (Given - Provider: Yocasta Barr RN) 2100 [...] 0.4 mg, Oral, DAILY, First dose on [place] 10/17/20 at 0900, Do not crush or break. [...] 5-40 mL, Intravenous, PRN, Line Care, Per Operations Examiner Request, Starting on Wed10/16/20 at 0752, For 72 hours, May use order for Line Care after every IV line use and Agitated Saline Bubble Study. Administration for Bubble Study per weigher and mixer request for only. Remove 1 mL 0.9% [...] 5-40 mL, Intravenous, PRN, Line Care, Per Operations Examiner Request, Starting on Wed10/16/20 at 0954, For 72 hours, May use order for Line Care after every IV line use and Agitated Saline Bubble Study. Administration for Bubble Study per weigher and mixer request for only. Remove 1 mL 0.9% [...] section and content) DATE CREATED AUTHOR 11/06/2020 [facility] DATE CREATED AUTHOR AUTHOR'S ORGANIZ ATION 10/28/2024 [facility] DATE CREATED AUTHOR AUTHOR'S ORGANIZ ATION 02/27/2025 [facility] DATE CREATED AUTHOR AUTHOR'S ORGANIZ ATION 03/03/2025 [facility] DATE CREATED AUTHOR AUTHOR'S ORGANIZ ATION 03/22/2025 [facility] Source Comments (unrecognize d section and content) In the event this informatio n is protected by the Federal Confidentiality of Alcohol and Drug Abuse Patient Records regulations: The Federal rules restrict any use of the information to criminally investigate or prosecute any alcohol or drug abuse patient.[facility] the event this information is protected by the Federal Confidentiality of Alcohol and Drug Abuse Patient Records regulations: The Federal rules restrict any use of the information to criminally investigate or prosecute any alcohol or drug abuse patient.[facility] the event this information is protected by the Federal Confidentiality of Alcohol and Drug Abuse Patient Records regulations: The Federal rules restrict any use of the information to criminally investigate or prosecute any alcohol or drug abuse patient.[facility] the event this information is protected by the Federal Confidentiality of Alcohol and Drug Abuse Patient Records regulations: The Federal rules restrict any use of the information to criminally investigate or prosecute any alcohol or drug abuse patient.[facility] the event this information is protected by the Federal Confidentiality of Alcohol and Drug Abuse Patient Records regulations: The Federal rules restrict any use of the information to criminally investigate or prosecute any alcohol or drug abuse patient.[facility] the event this information is protected by the Federal Confidentiality of Alcohol and Drug Abuse Patient Records regulations: The Federal rules restrict any use of the information to criminally investigate or prosecute any alcohol or drug abuse patient.[facility] the event this information is protected by the Federal Confidentiality of Alcohol and Drug Abuse Patient Records regulations: The Federal rules restrict any use of the information to criminally investigate or prosecute any alcohol or drug abuse patient.[facility] the event this information is protected by the Federal Confidentiality of Alcohol and Drug Abuse Patient Records regulations: The Federal rules restrict any use of the information to criminally investigate or prosecute any alcohol or drug abuse patient.[facility] the event this information is protected by the Federal Confidentiality of Alcohol and Drug Abuse Patient Records regulations: The Federal rules restrict any use of the information to criminally investigate or prosecute any alcohol or drug abuse patient.[facility] the event this information is protected by the Federal Confidentiality of Alcohol and Drug Abuse Patient Records regulations: The Federal rules restrict any use of the information to criminally investigate or prosecute any alcohol or drug abuse patient.[facility] the event this information is protected by the Federal Confidentiality of Alcohol and Drug Abuse Patient Records regulations: The Federal rules restrict any use of the information to criminally investigate or prosecute any alcohol or drug abuse patient.[facility] the event this information is protected by the Federal Confidentiality of Alcohol and Drug Abuse Patient Records regulations: The Federal rules restrict any use of the information to criminally investigate or prosecute any alcohol or drug abuse patient.[facility] the event this information is protected by the Federal Confidentiality of Alcohol and Drug Abuse Patient Records regulations: The Federal rules restrict any use of the information to criminally investigate or prosecute any alcohol or drug abuse patient.[facility] Hospital[facility] the event this information is protected by the Federal Confidentiality of Alcohol and Drug Abuse Patient Records regulations: The Federal rules restrict any use of the information to criminally investigate or prosecute any alcohol or drug abuse patient.[facility] the event this information is protected by the Federal Confidentiality of Alcohol and Drug Abuse Patient Records regulations: The Federal rules restrict any use of the information to criminally investigate or prosecute any alcohol or drug abuse patient.[facility] the event this information is protected by the Federal Confidentiality of Alcohol and Drug Abuse Patient Records regulations: The Federal rules restrict any use of the information to criminally investigate or prosecute any alcohol or drug abuse patient.[facility] the event this information is protected by the Federal Confidentiality of Alcohol and Drug Abuse Patient Records regulations: The Federal rules restrict any use of the information to criminally investigate or prosecute any alcohol or drug abuse patient.[facility] the event this information is protected by the Federal Confidentiality of Alcohol and Drug Abuse Patient Records regulations: The Federal rules restrict any use of the information to criminally investigate or prosecute any alcohol or drug abuse patient.[facility] the event this information is protected by the Federal Confidentiality of Alcohol and Drug Abuse Patient Records regulations: The Federal rules restrict any use of the information to criminally investigate or prosecute any alcohol or drug abuse patient.[facility] Hospital[facility] the event this information is protected by the Federal Confidentiality of Alcohol and Drug Abuse Patient Records regulations: The Federal rules restrict any use of the information to criminally investigate or prosecute any alcohol or drug abuse patient.[facility] HospitalIn the event this information is protected by the Federal Confidentiality of Alcohol and Drug Abuse Patient Records regulations: The Federal rules restrict any use of the information to criminally investigate or prosecute any alcohol or drug abuse patient.[facility] HospitalIn the event this information is protected by the Federal Confidentiality of Alcohol and Drug Abuse Patient Records regulations: The Federal rules restrict any use of the information to criminally investigate or prosecute any alcohol or drug abuse patient.[facility] HospitalIn the event this information is protected by the Federal Confidentiality of Alcohol and Drug Abuse Patient Records regulations: The Federal rules restrict any use of the information to criminally investigate or prosecute any alcohol or drug abuse patient.[facility] HospitalIn the event this information is protected by the Federal Confidentiality of Alcohol and Drug Abuse Patient Records regulations: The Federal rules restrict any use of the information to criminally investigate or prosecute any alcohol or drug abuse patient.[facility] HospitalIn the event this information is protected by the Federal Confidentiality of Alcohol and Drug Abuse Patient Records regulations: The Federal rules restrict any use of the information to criminally investigate or prosecute any alcohol or drug abuse patient.[facility] HospitalIn the event this information is protected by the Federal Confidentiality of Alcohol and Drug Abuse Patient Records regulations: The Federal rules restrict any use of the information to criminally investigate or prosecute any alcohol or drug abuse patient.[facility] HospitalIn the event this information is protected by the Federal Confidentiality of Alcohol and Drug Abuse Patient Records regulations: The Federal rules restrict any use of the information to criminally investigate or prosecute any alcohol or drug abuse patient.[facility] HospitalIn the event this information is protected by the Federal Confidentiality of Alcohol and Drug Abuse Patient Records regulations: The Federal rules restrict any use of the information to criminally investigate or prosecute any alcohol or drug abuse patient.[facility] HospitalIn the event this information is protected by the Federal Confidentiality of Alcohol and Drug Abuse Patient Records regulations: The Federal rules restrict any use of the information to criminally investigate or prosecute any alcohol or drug abuse patient.[facility] HospitalIn the event this information is protected by the Federal Confidentiality of Alcohol and Drug Abuse Patient Records regulations: The Federal rules restrict any use of the information to criminally investigate or prosecute any alcohol or drug abuse patient.[facility] HospitalIn the event this information is protected by the Federal Confidentiality of Alcohol and Drug Abuse Patient Records regulations: The Federal rules restrict any use of the information to criminally investigate or prosecute any alcohol or drug abuse patient.[facility] HospitalIn the event this information is protected by the Federal Confidentiality of Alcohol and Drug Abuse Patient Records regulations: The Federal rules restrict any use of the information to criminally investigate or prosecute any alcohol or drug abuse patient.[facility] HospitalIn the event this information is protected by the Federal Confidentiality of Alcohol and Drug Abuse Patient Records regulations: The Federal rules restrict any use of the information to criminally investigate or prosecute any alcohol or drug abuse patient.[facility] HospitalIn the event this information is protected by the Federal Confidentiality of Alcohol and Drug Abuse Patient Records regulations: The Federal rules restrict any use of the information to criminally investigate or prosecute any alcohol or drug abuse patient.[facility] HospitalIn the event this information is protected by the Federal Confidentiality of Alcohol and Drug Abuse Patient Records regulations: The Federal rules restrict any use of the information to criminally investigate or prosecute any alcohol or drug abuse patient.[facility] HospitalIn the event this information is protected by the Federal Confidentiality of Alcohol and Drug Abuse Patient Records regulations: The Federal rules restrict any use of the information to criminally investigate or prosecute any alcohol or drug abuse patient.[facility] HospitalIn the event this information is protected by the Federal Confidentiality of Alcohol and Drug Abuse Patient Records regulations: The Federal rules restrict any use of the information to criminally investigate or prosecute any alcohol or drug abuse patient.[facility] HospitalIn the event this information is protected by the Federal Confidentiality of Alcohol and Drug Abuse Patient Records regulations: The Federal rules restrict any use of the information to criminally investigate or prosecute any alcohol or drug abuse patient.[facility] HospitalIn the event this information is protected by the Federal Confidentiality of Alcohol and Drug Abuse Patient Records regulations: The Federal rules restrict any use of the information to criminally investigate or prosecute any alcohol or drug abuse patient.[facility] HospitalIn the event this information is protected by the Federal Confidentiality of Alcohol and Drug Abuse Patient Records regulations: The Federal rules restrict any use of the information to criminally investigate or prosecute any alcohol or drug abuse patient.[facility] HospitalIn the event this information is protected by the Federal Confidentiality of Alcohol and Drug Abuse Patient Records regulations: The Federal rules restrict any use of the information to criminally investigate or prosecute any alcohol or drug abuse patient.[facility] HospitalIn the event this information is protected by the Federal Confidentiality of Alcohol and Drug Abuse Patient Records regulations: The Federal rules restrict any use of the information to criminally investigate or prosecute any alcohol or drug abuse patient.[facility] HospitalIn the event this information is protected by the Federal Confidentiality of Alcohol and Drug Abuse Patient Records regulations: The Federal rules restrict any use of the information to criminally investigate or prosecute any alcohol or drug abuse patient.[facility] HospitalIn the event this information is protected by the Federal Confidentiality of Alcohol and Drug Abuse Patient Records regulations: The Federal rules restrict any use of the information to criminally investigate or prosecute any alcohol or drug abuse patient.[facility] HospitalIn the event this information is protected by the Federal Confidentiality of Alcohol and Drug Abuse Patient Records regulations: The Federal rules restrict any use of the information to criminally investigate or prosecute any alcohol or drug abuse patient.[facility] HospitalIn the event this information is protected by the Federal Confidentiality of Alcohol and Drug Abuse Patient Records regulations: The Federal rules restrict any use of the information to criminally investigate or prosecute any alcohol or drug abuse patient.[facility] HospitalIn the event this information is protected by the Federal Confidentiality of Alcohol and Drug Abuse Patient Records regulations: The Federal rules restrict any use of the information to criminally investigate or prosecute any alcohol or drug abuse patient.[facility] HospitalIn the event this information is protected by the Federal Confidentiality of Alcohol and Drug Abuse Patient Records regulations: The Federal rules restrict any use of the information to criminally investigate or prosecute any alcohol or drug abuse patient.[facility] HospitalIn the event this information is protected by the Federal Confidentiality of Alcohol and Drug Abuse Patient Records regulations: The Federal rules restrict any use of the information to criminally investigate or prosecute any alcohol or drug abuse patient.[facility] HospitalIn the event this information is protected by the Federal Confidentiality of Alcohol and Drug Abuse Patient Records regulations: The Federal rules restrict any use of the information to criminally investigate or prosecute any alcohol or drug abuse patient.[facility] HospitalIn the event this information is protected by the Federal Confidentiality of Alcohol and Drug Abuse Patient Records regulations: The Federal rules restrict any use of the information to criminally investigate or prosecute any alcohol or drug abuse patient.[facility] HospitalIn the event this information is protected by the Federal Confidentiality of Alcohol and Drug Abuse Patient Records regulations: The Federal rules restrict any use of the information to criminally investigate or prosecute any alcohol or drug abuse patient.[facility] HospitalIn the event this information is protected by the Federal Confidentiality of Alcohol and Drug Abuse Patient Records regulations: The Federal rules restrict any use of the information to criminally investigate or prosecute any alcohol or drug abuse patient.[facility] HospitalIn the event this information is protected by the Federal Confidentiality of Alcohol and Drug Abuse Patient Records regulations: The Federal rules restrict any use of the information to criminally investigate or prosecute any alcohol or drug abuse patient.[facility] HospitalIn the event this information is protected by the Federal Confidentiality of Alcohol and Drug Abuse Patient Records regulations: The Federal rules restrict any use of the information to criminally investigate or prosecute any alcohol or drug abuse patient.[facility] HospitalIn the event this information is protected by the Federal Confidentiality of Alcohol and Drug Abuse Patient Records regulations: The Federal rules restrict any use of the information to criminally investigate or prosecute any alcohol or drug abuse patient.[facility] HospitalIn the event this information is protected by the Federal Confidentiality of Alcohol and Drug Abuse Patient Records regulations: The Federal rules restrict any use of the information to criminally investigate or prosecute any alcohol or drug abuse patient.[facility] HospitalIn the event this information is protected by the Federal Confidentiality of Alcohol and Drug Abuse Patient Records regulations: The Federal rules restrict any use of the information to criminally investigate or prosecute any alcohol or drug abuse patient.[facility] HospitalIn the event this information is protected by the Federal Confidentiality of Alcohol and Drug Abuse Patient Records regulations: The Federal rules restrict any use of the information to criminally investigate or prosecute any alcohol or drug abuse patient.[facility] HospitalIn the event this information is protected by the Federal Confidentiality of Alcohol and Drug Abuse Patient Records regulations: The Federal rules restrict any use of the information to criminally investigate or prosecute any alcohol or drug abuse patient.[facility] HospitalIn the event this information is protected by the Federal Confidentiality of Alcohol and Drug Abuse Patient Records regulations: The Federal rules restrict any use of the information to criminally investigate or prosecute any alcohol or drug abuse patient.[facility] HospitalIn the event this information is protected by the Federal Confidentiality of Alcohol and Drug Abuse Patient Records regulations: The Federal rules restrict any use of the information to criminally investigate or prosecute any alcohol or drug abuse patient.[facility] HospitalIn the event this information is protected by the Federal Confidentiality of Alcohol and Drug Abuse Patient Records regulations: The Federal rules restrict any use of the information to criminally investigate or prosecute any alcohol or drug abuse patient.[facility] HospitalIn the event this information is protected by the Federal Confidentiality of Alcohol and Drug Abuse Patient Records regulations: The Federal rules restrict any use of the information to criminally investigate or prosecute any alcohol or drug abuse patient.[facility] the event this information is protected by the Federal Confidentiality of Alcohol and Drug Abuse Patient Records regulations: The Federal rules restrict any use of the information to criminally investigate or prosecute any alcohol or drug abuse patient.[facility] HospitalIn the event this information is protected by the Federal Confidentiality of Alcohol and Drug Abuse Patient Records regulations: The Federal rules restrict any use of the information to criminally investigate or prosecute any alcohol or drug abuse patient.[facility] HospitalIn the event this information is protected by the Federal Confidentiality of Alcohol and Drug Abuse Patient Records regulations: The Federal rules restrict any use of the information to criminally investigate or prosecute any alcohol or drug abuse patient.[facility]In the event this information is protected by the Federal Confidentiality of Alcohol and Drug Abuse Patient Records regulations: The Federal rules restrict any use of the information to criminally investigate or prosecute any alcohol or drug abuse patient.[facility] HospitalIn the event this information is protected by the Federal Confidentiality of Alcohol and Drug Abuse Patient Records regulations: The Federal rules restrict any use of the information to criminally investigate or prosecute any alcohol or drug abuse patient.[facility] HospitalIn the event this information is protected by the Federal Confidentiality of Alcohol and Drug Abuse Patient Records regulations: The Federal rules restrict any use of the information to criminally investigate or prosecute any alcohol or drug abuse patient.[facility] HospitalIn the event this information is protected by the Federal Confidentiality of Alcohol and Drug Abuse Patient Records regulations: The Federal rules restrict any use of the information to criminally investigate or prosecute any alcohol or drug abuse patient.[facility] HospitalIn the event this information is protected by the Federal Confidentiality of Alcohol and Drug Abuse Patient Records regulations: The Federal rules restrict any use of the information to criminally investigate or prosecute any alcohol or drug abuse patient.[facility] HospitalIn the event this information is protected by the Federal Confidentiality of Alcohol and Drug Abuse Patient Records regulations: The Federal rules restrict any use of the information to criminally investigate or prosecute any alcohol or drug abuse patient.[facility] HospitalIn the event this information is protected by the Federal Confidentiality of Alcohol and Drug Abuse Patient Records regulations: The Federal rules restrict any use of the information to criminally investigate or prosecute any alcohol or drug abuse patient.[facility] HospitalIn the event this information is protected by the Federal Confidentiality of Alcohol and Drug Abuse Patient Records regulations: The Federal rules restrict any use of the information to criminally investigate or prosecute any alcohol or drug abuse patient.[facility] HospitalIn the event this information is protected by the Federal Confidentiality of Alcohol and Drug Abuse Patient Records regulations: The Federal rules restrict any use of the information to criminally investigate or prosecute any alcohol or drug abuse patient.[facility] HospitalIn the event this information is protected by the Federal Confidentiality of Alcohol and Drug Abuse Patient Records regulations: The Federal rules restrict any use of the information to criminally investigate or prosecute any alcohol or drug abuse patient.[facility] HospitalIn the event this information is protected by the Federal Confidentiality of Alcohol and Drug Abuse Patient Records regulations: The Federal rules restrict any use of the information to criminally investigate or prosecute any alcohol or drug abuse patient.[facility] HospitalIn the event this information is protected by the Federal Confidentiality of Alcohol and Drug Abuse Patient Records regulations: The Federal rules restrict any use of the information to criminally investigate or prosecute any alcohol or drug abuse patient.[facility] HospitalIn the event this information is protected by the Federal Confidentiality of Alcohol and Drug Abuse Patient Records regulations: The Federal rules restrict any use of the information to criminally investigate or prosecute any alcohol or drug abuse patient.[facility] HospitalIn the event this information is protected by the Federal Confidentiality of Alcohol and Drug Abuse Patient Records regulations: The Federal rules restrict any use of the information to criminally investigate or prosecute any alcohol or drug abuse patient.[facility] HospitalIn the event this information is protected by the Federal Confidentiality of Alcohol and Drug Abuse Patient Records regulations: The Federal rules restrict any use of the information to criminally investigate or prosecute any alcohol or drug abuse patient.[facility] HospitalIn the event this information is protected by the Federal Confidentiality of Alcohol and Drug Abuse Patient Records regulations: The Federal rules restrict any use of the information to criminally investigate or prosecute any alcohol or drug abuse patient.[facility] HospitalIn the event this information is protected by the Federal Confidentiality of Alcohol and Drug Abuse Patient Records regulations: The Federal rules restrict any use of the information to criminally investigate or prosecute any alcohol or drug abuse patient.[facility] HospitalIn the event this information is protected by the Federal Confidentiality of Alcohol and Drug Abuse Patient Records regulations: The Federal rules restrict any use of the information to criminally investigate or prosecute any alcohol or drug abuse patient.[facility] HospitalIn the event this information is protected by the Federal Confidentiality of Alcohol and Drug Abuse Patient Records regulations: The Federal rules restrict any use of the information to criminally investigate or prosecute any alcohol or drug abuse patient.[facility] HospitalIn the event this information is protected by the Federal Confidentiality of Alcohol and Drug Abuse Patient Records regulations: The Federal rules restrict any use of the information to criminally investigate or prosecute any alcohol or drug abuse patient.[facility] HospitalIn the event this information is protected by the Federal Confidentiality of Alcohol and Drug Abuse Patient Records regulations: The Federal rules restrict any use of the information to criminally investigate or prosecute any alcohol or drug abuse patient.[facility] HospitalIn the event this information is protected by the Federal Confidentiality of Alcohol and Drug Abuse Patient Records regulations: The Federal rules restrict any use of the information to criminally investigate or prosecute any alcohol or drug abuse patient.[facility] HospitalIn the event this information is protected by the Federal Confidentiality of Alcohol and Drug Abuse Patient Records regulations: The Federal rules restrict any use of the information to criminally investigate or prosecute any alcohol or drug abuse patient.[facility] HospitalIn the event this information is protected by the Federal Confidentiality of Alcohol and Drug Abuse Patient Records regulations: The Federal rules restrict any use of the information to criminally investigate or prosecute any alcohol or drug abuse patient.[facility] HospitalIn the event this information is protected by the Federal Confidentiality of Alcohol and Drug Abuse Patient Records regulations: The Federal rules restrict any use of the information to criminally investigate or prosecute any alcohol or drug abuse patient.[facility] HospitalIn the event this information is protected by the Federal Confidentiality of Alcohol and Drug Abuse Patient Records regulations: The Federal rules restrict any use of the information to criminally investigate or prosecute any alcohol or drug abuse patient.[facility] HospitalIn the event this information is protected by the Federal Confidentiality of Alcohol and Drug Abuse Patient Records regulations: The Federal rules restrict any use of the information to criminally investigate or prosecute any alcohol or drug abuse patient.[facility] HospitalIn the event this information is protected by the Federal Confidentiality of Alcohol and Drug Abuse Patient Records regulations: The Federal rules restrict any use of the information to criminally investigate or prosecute any alcohol or drug abuse patient.[facility] HospitalIn the event this information is protected by the Federal Confidentiality of Alcohol and Drug Abuse Patient Records regulations: The Federal rules restrict any use of the information to criminally investigate or prosecute any alcohol or drug abuse patient.[facility] HospitalIn the event this information is protected by the Federal Confidentiality of Alcohol and Drug Abuse Patient Records regulations: The Federal rules restrict any use of the information to criminally investigate or prosecute any alcohol or drug abuse patient.[facility] HospitalIn the event this information is protected by the Federal Confidentiality of Alcohol and Drug Abuse Patient Records regulations: The Federal rules restrict any use of the information to criminally investigate or prosecute any alcohol or drug abuse patient.[facility] HospitalIn the event this information is protected by the Federal Confidentiality of Alcohol and Drug Abuse Patient Records regulations: The Federal rules restrict any use of the information to criminally investigate or prosecute any alcohol or drug abuse patient.[facility] HospitalIn the event this information is protected by the Federal Confidentiality of Alcohol and Drug Abuse Patient Records regulations: The Federal rules restrict any use of the information to criminally investigate or prosecute any alcohol or drug abuse patient.[facility] HospitalIn the event this information is protected by the Federal Confidentiality of Alcohol and Drug Abuse Patient Records regulations: The Federal rules restrict any use of the information to criminally investigate or prosecute any alcohol or drug abuse patient.[facility] HospitalIn the event this information is protected by the Federal Confidentiality of Alcohol and Drug Abuse Patient Records regulations: The Federal rules restrict any use of the information to criminally investigate or prosecute any alcohol or drug abuse patient.[facility] HospitalIn the event this information is protected by the Federal Confidentiality of Alcohol and Drug Abuse Patient Records regulations: The Federal rules restrict any use of the information to criminally investigate or prosecute any alcohol or drug abuse patient.[facility] HospitalIn the event this information is protected by the Federal Confidentiality of Alcohol and Drug Abuse Patient Records regulations: The Federal rules restrict any use of the information to criminally investigate or prosecute any alcohol or drug abuse patient.[facility] HospitalIn the event this information is protected by the Federal Confidentiality of Alcohol and Drug Abuse Patient Records regulations: The Federal rules restrict any use of the information to criminally investigate or prosecute any alcohol or drug abuse patient.[facility] HospitalIn the event this information is protected by the Federal Confidentiality of Alcohol and Drug Abuse Patient Records regulations: The Federal rules restrict any use of the information to criminally investigate or prosecute any alcohol or drug abuse patient.[facility] HospitalIn the event this information is protected by the Federal Confidentiality of Alcohol and Drug Abuse Patient Records regulations: The Federal rules restrict any use of the information to criminally investigate or prosecute any alcohol or drug abuse patient.[facility] HospitalIn the event this information is protected by the Federal Confidentiality of Alcohol and Drug Abuse Patient Records regulations: The Federal rules restrict any use of the information to criminally investigate or prosecute any alcohol or drug abuse patient.[facility] HospitalIn the event this information is protected by the Federal Confidentiality of Alcohol and Drug Abuse Patient Records regulations: The Federal rules restrict any use of the information to criminally investigate or prosecute any alcohol or drug abuse patient.[facility] HospitalIn the event this information is protected by the Federal Confidentiality of Alcohol and Drug Abuse Patient Records regulations: The Federal rules restrict any use of the information to criminally investigate or prosecute any alcohol or drug abuse patient.[facility] HospitalIn the event this information is protected by the Federal Confidentiality of Alcohol and Drug Abuse Patient Records regulations: The Federal rules restrict any use of the information to criminally investigate or prosecute any alcohol or drug abuse patient.[facility] HospitalIn the event this information is protected by the Federal Confidentiality of Alcohol and Drug Abuse Patient Records regulations: The Federal rules restrict any use of the information to criminally investigate or prosecute any alcohol or drug abuse patient.[facility] HospitalIn the event this information is protected by the Federal Confidentiality of Alcohol and Drug Abuse Patient Records regulations: The Federal rules restrict any use of the information to criminally investigate or prosecute any alcohol or drug abuse patient.[facility] HospitalIn the event this information is protected by the Federal Confidentiality of Alcohol and Drug Abuse Patient Records regulations: The Federal rules restrict any use of the information to criminally investigate or prosecute any alcohol or drug abuse patient.[facility] the event this information is protected by the Federal Confidentiality of Alcohol and Drug Abuse Patient Records regulations: The Federal rules restrict any use of the information to criminally investigate or prosecute any alcohol or drug abuse patient.[facility] HospitalIn the event this information is protected by the Federal Confidentiality of Alcohol and Drug Abuse Patient Records regulations: The Federal rules restrict any use of the information to criminally investigate or prosecute any alcohol or drug abuse patient.[facility] HospitalIn the event this information is protected by the Federal Confidentiality of Alcohol and Drug Abuse Patient Records regulations: The Federal rules restrict any use of the information to criminally investigate or prosecute any alcohol or drug abuse patient.[facility]In the event this information is protected by the Federal Confidentiality of Alcohol and Drug Abuse Patient Records regulations: The Federal rules restrict any use of the information to criminally investigate or prosecute any alcohol or drug abuse patient.[facility] HospitalIn the event this information is protected by the Federal Confidentiality of Alcohol and Drug Abuse Patient Records regulations: The Federal rules restrict any use of the information to criminally investigate or prosecute any alcohol or drug abuse patient.[facility] HospitalIn the event this information is protected by the Federal Confidentiality of Alcohol and Drug Abuse Patient Records regulations: The Federal rules restrict any use of the information to criminally investigate or prosecute any alcohol or drug abuse patient.[facility] HospitalIn the event this information is protected by the Federal Confidentiality of Alcohol and Drug Abuse Patient Records regulations: The Federal rules restrict any use of the information to criminally investigate or prosecute any alcohol or drug abuse patient.[facility] HospitalIn the event this information is protected by the Federal Confidentiality of Alcohol and Drug Abuse Patient Records regulations: The Federal rules restrict any use of the information to criminally investigate or prosecute any alcohol or drug abuse patient.[facility] HospitalIn the event this information is protected by the Federal Confidentiality of Alcohol and Drug Abuse Patient Records regulations: The Federal rules restrict any use of the information to criminally investigate or prosecute any alcohol or drug abuse patient.[facility] HospitalIn the event this information is protected by the Federal Confidentiality of Alcohol and Drug Abuse Patient Records regulations: The Federal rules restrict any use of the information to criminally investigate or prosecute any alcohol or drug abuse patient.[facility] HospitalIn the event this information is protected by the Federal Confidentiality of Alcohol and Drug Abuse Patient Records regulations: The Federal rules restrict any use of the information to criminally investigate or prosecute any alcohol or drug abuse patient.[facility] HospitalIn the event this information is protected by the Federal Confidentiality of Alcohol and Drug Abuse Patient Records regulations: The Federal rules restrict any use of the information to criminally investigate or prosecute any alcohol or drug abuse patient.[facility] HospitalIn the event this information is protected by the Federal Confidentiality of Alcohol and Drug Abuse Patient Records regulations: The Federal rules restrict any use of the information to criminally investigate or prosecute any alcohol or drug abuse patient.[facility] HospitalIn the event this information is protected by the Federal Confidentiality of Alcohol and Drug Abuse Patient Records regulations: The Federal rules restrict any use of the information to criminally investigate or prosecute any alcohol or drug abuse patient.[facility] HospitalIn the event this information is protected by the Federal Confidentiality of Alcohol and Drug Abuse Patient Records regulations: The Federal rules restrict any use of the information to criminally investigate or prosecute any alcohol or drug abuse patient.[facility] HospitalIn the event this information is protected by the Federal Confidentiality of Alcohol and Drug Abuse Patient Records regulations: The Federal rules restrict any use of the information to criminally investigate or prosecute any alcohol or drug abuse patient.[facility] HospitalIn the event this information is protected by the Federal Confidentiality of Alcohol and Drug Abuse Patient Records regulations: The Federal rules restrict any use of the information to criminally investigate or prosecute any alcohol or drug abuse patient.[facility] HospitalIn the event this information is protected by the Federal Confidentiality of Alcohol and Drug Abuse Patient Records regulations: The Federal rules restrict any use of the information to criminally investigate or prosecute any alcohol or drug abuse patient.[facility] HospitalIn the event this information is protected by the Federal Confidentiality of Alcohol and Drug Abuse Patient Records regulations: The Federal rules restrict any use of the information to criminally investigate or prosecute any alcohol or drug abuse patient.[facility] HospitalIn the event this information is protected by the Federal Confidentiality of Alcohol and Drug Abuse Patient Records regulations: The Federal rules restrict any use of the information to criminally investigate or prosecute any alcohol or drug abuse patient.[facility] HospitalIn the event this information is protected by the Federal Confidentiality of Alcohol and Drug Abuse Patient Records regulations: The Federal rules restrict any use of the information to criminally investigate or prosecute any alcohol or drug abuse patient.[facility] HospitalIn the event this information is protected by the Federal Confidentiality of Alcohol and Drug Abuse Patient Records regulations: The Federal rules restrict any use of the information to criminally investigate or prosecute any alcohol or drug abuse patient.[facility] HospitalIn the event this information is protected by the Federal Confidentiality of Alcohol and Drug Abuse Patient Records regulations: The Federal rules restrict any use of the information to criminally investigate or prosecute any alcohol or drug abuse patient.[facility] HospitalIn the event this information is protected by the Federal Confidentiality of Alcohol and Drug Abuse Patient Records regulations: The Federal rules restrict any use of the information to criminally investigate or prosecute any alcohol or drug abuse patient.[facility] HospitalIn the event this information is protected by the Federal Confidentiality of Alcohol and Drug Abuse Patient Records regulations: The Federal rules restrict any use of the information to criminally investigate or prosecute any alcohol or drug abuse patient.[facility] HospitalIn the event this information is protected by the Federal Confidentiality of Alcohol and Drug Abuse Patient Records regulations: The Federal rules restrict any use of the information to criminally investigate or prosecute any alcohol or drug abuse patient.[facility] HospitalIn the event this information is protected by the Federal Confidentiality of Alcohol and Drug Abuse Patient Records regulations: The Federal rules restrict any use of the information to criminally investigate or prosecute any alcohol or drug abuse patient.[facility] HospitalIn the event this information is protected by the Federal Confidentiality of Alcohol and Drug Abuse Patient Records regulations: The Federal rules restrict any use of the information to criminally investigate or prosecute any alcohol or drug abuse patient.[facility] HospitalIn the event this information is protected by the Federal Confidentiality of Alcohol and Drug Abuse Patient Records regulations: The Federal rules restrict any use of the information to criminally investigate or prosecute any alcohol or drug abuse patient.[facility] Reason for Visit (unrecogniz ed section and content) Reason Comments Established Patient Specialty Diagnoses / Procedures Referred By Contac t Referred To Contact Diagnoses 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) Stage 3b chronic kidney disease (HCC) Josiah Bird, DO [address] [facility] [place] [address] [facility] [address] [place] [address] Referral ID Status Reason Start Date Expiration Date V isits Requested Visits Authorized [id number] Authorized 12/02/2023 03/01/2024 [address] Specialty Diagnoses / Procedures Referred By Contac t Referred To Contact CT IMAGING Diagnoses 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) Lymphadenopathy, abdominal Localized enlarged lymph nodes Procedures CT ABD/PEL WO IVCON CT ABD & PELVIS W/O CONTRAST Arsh Polk MD [address] [place] [address] Ct Imaging Referral ID Status Reason Start Date Expiration Date V isits Requested Visits Authorized [id number] Closed Auto-Generate d Referral 12/10/2021 01/09/2023 1 [...] Comments Results Reason Comments Appointment Reason Comments [facility] Sleep Lab requesting records Reason Onset Date Comments Refill Request 03/09/2022 Reason Onset Date Comments Refill Request 04/05/2022 Reason Onset Date Comments Refill Request 05/06/2022 Reason Comments Follow Up Sleep Apnea Needing PSG results from [facility] unsure what is happening there will log [...] W/O CONTRAST MATERIAL Kaylee Herrmann PA-C [address] [place] [address] [place] [address] Referral ID Status Reason Start Date Expiration Date V isits Requested Visits Authorized [id number] Closed Auto-Generate d Referral 01/26/2023 02/25/2024 1 [...] MDM 60 MINUTES Arsh Polk MD [address] [place] [id number] Referral ID Status Reason Start Date Expiration Date V isits Requested Visits Authorized [id number] Closed PCP Requested Referral 11/08/2023 11/07/2024 1 1 Reason Comments Results Edge Roller - Other Reason Comments Non-Chemotherapy Treatment Reason Comments Patient Update Reason Onset Date Comments Refill Request 12/18/2023 Reason Comments right rib pain Fell 10 days ago Reason Comments Imm/Inj Specialty Diagnoses / Procedures Referred By Contac t Referred To Contact Diagnoses 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) Procedures DARBEPOETIN SANTOS, NON-ESRD Yenny Bill [address] [place] [address] [facility] [address] [place] [address] Referral ID Status Reason Start Date Expiration Date V isits Requested Visits Authorized [id number] Authorized 01/24/2024 08/06/2024 99 99 Reason Onset Date Comments Refill Request 03/04/2024 Reason Comments 6 Month Exam Reason Comments New Patient 3 mth follow up for parkinsons & IRINEO Reason Comments Results Arm fracture Specialty Diagnoses / Procedures Referred By Gilma t Referred To Contact MR IMAGING Diagnoses Acute pain of left shoulder due to trauma Procedures MRI SHOULDER WO IVCON LEFT MRI ANY JT UPPER EXTREMITY W/O CONTRAST MATRL Arsh Otto Jr., MD [address] [place] [phone] Mr Imaging [id number] Referral ID Status Reason Start Date Expiration Date V isits Requested Visits Authorized [id number] Closed Auto-Generate d Referral 03/27/2024 04/26/2025 1 1 Specialty Diagnoses / Procedures Referred By Gilma t Referred To Contact MR IMAGING Diagnoses Spinal stenosis of lumbar region with neurogenic claudication Procedures MRI LUMBAR SPINE WO IVCON MRI SPINAL CANAL LUMBAR W/O CONTRAST MATERIAL Arsh Otto Jr., MD [facility] [place] [phone] Mr Imaging [facility] Referral ID Status Reason Start Date Expiration Date V isits Requested Visits Authorized [id number] Closed Auto-Generate d Referral 03/27/2024 04/26/2025 1 1 Specialty Diagnoses / Procedures Referred By Gilma armstrong Referred To Contact Diagnoses 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) Procedures DARBEPOETIN SANTOS, NON-ESRD Yenny Bill [address] [place] [address] [facility] [address] [place] [address] Reason Comments New Fracture Reason Comments Home Health REquest Reason Comments Home Care Management Reason Comments Home Health Point of Care Results Referral ID Status Reason Start Date Expiration Date V isits Requested Visits Authorized [id number] Authorized 01/24/2024 05/09/2025 99 99 Reason Comments Hospital F/U Reason Onset Date Comments Refill Request 06/02/2024 Reason Comments [facility] Order request Reason Comments [facility], verbal orders needed Reason Onset Date Comments Refill Request 06/30/2024 Specialty Diagnoses / Procedures Referred By Contac t Referred To Contact Diagnoses 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) Procedures DARBEPOETIN SANTOS, NON-ESRD Jose Guadalupe Billna [address] [place] [address] Phone: tel: fax: Hematology/Oncology [address] [place] [address] Phone: tel: fax: Specialty Diagnoses / Procedures Referred By Contac t Referred To Contact Diagnoses 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) Procedures DARBEPOETIN SANTOS, NON-ESRD Yenny Bill [address] [place] [address] Phone: tel: fax: Hematology/Oncology [address] [place] [address] Phone: tel: fax: Reason Onset Date Comments Refill Request 08/06/2024 Reason Comments 6 Month Exam Reason Comments Follow Up Following April 10 Hospitalization and Discharge from [facility]. Has Parkinsons and dementia. Specialty Diagnoses / Procedures [facility] Diagnoses Subdural hematoma (HCC) Procedures CT BRAIN WO IVCON CT HEAD/BRAIN W/O CONTRAST MATERIAL Patti Moreira APRN.PROP DRAWER [address] [address] Phone: tel: fax: [place] [address] Referral ID Status Reason Start Date Expiration Date V isits Requested Visits Authorized [id number] Closed Auto-Generate d Referral 10/26/2024 11/25/2025 1 [...] Care Teams (unrecognized sec tion and content) [employer] Consultant Relationship Specialty Start Date End Date Arsh Polk MD [address] [facility] [place] [address] PCP - General Family Practice 01/03/15 [employer] Consultant Relationship Specialty Start Date End Date Arsh Polk MD [address] [facility] [place] [address] PCP - General Family Practice 01/03/15 [employer] Consultant Relationship Specialty Start Date End Date Arsh Polk MD [address] [facility] [facility] [place] [address] PCP - General Family Practice 01/03/15 [employer] Consultant Relationship Specialty [place] [address] [place] [address], [place] [address] PCP - General Family Practice 01/03/15 [employer] Consultant Relationship Specialty Start Date End Date Arsh Polk MD [facility] [facility] [place] [address] PCP - General Family Practice 01/03/15 [employer] Consultant Relationship Specialty Start Date End Date Arsh Polk MD [address] [facility] [facility] [place] [address] PCP - General Family Practice 01/03/15 [employer] Consultant Relationship Specialty Start Date End Date Arsh oPlk MD [address] [facility] [facility] [place] [address] PCP - General Family Practice 01/03/15 [employer] Consultant Relationship Specialty Start Date End Date Arsh Polk MD [address] [facility] [facility] [place] [address] PCP - General Family Practice 01/03/15 [employer] Consultant Relationship Specialty [place] [address] [place] [address], [place] [address] PCP - General Family Practice 01/03/15 [employer] Consultant Relationship Specialty Start Date End Date Arsh Polk MD [address] [facility] [facility] [place] [address] PCP - General Family Practice 01/03/15 [employer] Consultant Relationship Specialty Start Date End Date Arsh Polk MD [address] [facility] [facility] [place] [address] PCP - General Family Practice 01/03/15 [employer] Consultant Relationship Specialty Start Date End Date Arsh Polk MD [address] [facility] [facility] [place] [address] PCP - General Family Practice 01/03/15 [employer] Consultant Relationship Specialty Start Date End Date Arsh Polk MD [address] [facility] [facility] [place] [address] PCP - General Family Medicine 01/03/15 [employer] Consultant Relationship Specialty Start Date End Date Arsh Polk MD [address] [facility] [facility] [place] [address] PCP - General Family Medicine 01/03/15 [employer] Consultant Relationship Specialty Start Date End Date Arsh Polk MD [address] [facility] [facility] [place] [address] PCP - General Family Medicine 01/03/15 [employer] Consultant Relationship Specialty Start Date End Date Arsh Polk MD [address] [facility] [place] [address] PCP - General Family Medicine 01/03/15 [employer] Client [employer] Consultant Relationship Specialty Start Date End Date Arsh Polk MD [address] [facility] [facility] [place] [address] PCP - General Family Medicine 01/03/15 [employer] Consultant Relationship Specialty Start Date End Date Arsh Polk MD [address] [facility] [place] [address] PCP - General Family Medicine 01/03/15 Team [...] Provi dianne, Attending Provider, Referring Provider Active [employer] Consultant Relationship Specialty Start Date End Date Arsh Polk MD [address] [facility] [place] [address] PCP - General Family Medicine 01/03/15 [employer] Consultant Relationship Specialty Start Date End Date Arsh Polk MD [address] [facility] [place] [address] PCP - General Family Medicine 01/03/15 Team Status: Inactive Member Role Status Dates Dr. Arsh Polk MD Primary Care Provider Active Dr. Arsh Otto MD Attending Provider Active [employer] Consultant Relationship Specialty Start Date End Date Arsh Polk MD [address] [facility] [facility] [place] [address] PCP - General Family Medicine 01/03/15 [employer] Consultant Relationship Specialty Start Date End Date Arsh Polk MD [address] [facility] [place] [address] PCP - General Family Medicine 01/03/15 [employer] Consultant Relationship Specialty Start Date End Date Arsh Polk MD [address] [facility] [place] [address] PCP - General Family Medicine 01/03/15 [employer] Consultant Relationship Specialty Start Date End Date Arsh Polk MD [address] [facility] [place] [address] PCP - General Family Medicine 01/03/15 [employer] Consultant Relationship Specialty Start Date End Date Arsh Polk MD [address] [facility] [place] [address] PCP - General Family Medicine 01/03/15 [employer] Consultant Relationship Specialty Start Date End Date Arsh Polk MD [address] [place] [address] PCP - General Family Medicine 01/03/15 [employer] Consultant Relationship Specialty Start Date End Date Arsh Polk MD [address] [place] [address] PCP - General Family Medicine 01/03/15 [employer] Consultant Relationship Specialty Start Date End Date Arsh Polk MD [address] [place] [address] PCP - General Family Medicine 01/03/15 [employer] Consultant Relationship Specialty Start Date End Date Arsh Plok MD [address] [place] [address] PCP - General Family Medicine 01/03/15 [employer] Consultant Relationship Specialty Start Date End Date Arsh Polk MD [address] [place] [address] PCP - General Family Medicine 01/03/15 [employer] Consultant Relationship Specialty Start Date End Date Arsh Polk MD [address] [place] [address] PCP - General Family Medicine 01/03/15 [employer] Consultant Relationship Specialty Start Date End Date Arsh Polk MD [address] [place], [place] [address] PCP - General Family Medicine 01/03/15 Team Status: Inactive Member Role Status Dates Dr. Arsh Polk MD Primary Care Provider Active Dr. Nakia Laboy DO Attending Provider Active Team Status: Inactive Member Role Status Dates Dr. Arsh Polk MD Primary Care Provider Active Dr. Nakia Laboy DO Attending Provider, Referring Nemo fink Active Retail Client Solutions Consultant Relationship Specialty Start Date End Date Arsh Polk MD [address] [place] [address] PCP - General Family Medicine 01/03/15 Retail Client Solutions Consultant Relationship Specialty Start Date End Date Arsh Polk MD [address] [place] [address] PCP - General Family Medicine 01/03/15 Retail Client Solutions Consultant Relationship Specialty Start Date End Date Arsh Polk MD [address] [place] [address] PCP - General Family Medicine 01/03/15 Retail Client Solutions Consultant Relationship Specialty Start Date End Date Arsh Polk MD [address] [place] [address] PCP - General Family Medicine 01/03/15 Retail Client Solutions Consultant Relationship Specialty Start Date End Date Arsh Polk MD [address] [place] [address] PCP - General Family Medicine 01/03/15 Retail Client Solutions Consultant Relationship Specialty Start Date End Date Arsh Polk MD [address] [place] [address] PCP - General Family Medicine 01/03/15 Retail Client Solutions Consultant Relationship Specialty Start Date End Date Arsh Polk MD [address] [place] [address] PCP - General Family Medicine 01/03/15 Retail Client Solutions Consultant Relationship Specialty Start Date End Date Arsh Polk MD [address] [place] [address] PCP - General Family Medicine 01/03/15 Retail Client Solutions Consultant Relationship Specialty Start Date End Date Arsh Polk MD [address] [place] [address] PCP - General Family Medicine 01/03/15 Retail Client Solutions Consultant Relationship Specialty Start Date End Date Arsh Polk MD [address] [place] [address] PCP - General Family Medicine 01/03/15 Retail Client Solutions Consultant Relationship Specialty Start Date End Date Arsh Polk MD [address] [place] [address] PCP - General Family Medicine 01/03/15 Retail Client Solutions Consultant Relationship Specialty Start Date End Date Arsh Polk MD [address] [place] [address] PCP - General Family Medicine 01/03/15 Retail Client Solutions Consultant Relationship Specialty Start Date End Date Arsh Polk MD [address] [place] [address] PCP - General Family Medicine 01/03/15 Retail Client Solutions Consultant Relationship Specialty Start Date End Date Arsh Polk MD [address] [place] [address] PCP - General Family Medicine 01/03/15 Retail Client Solutions Consultant Relationship Specialty Start Date End Date Arsh Polk MD [address] [place] [address] PCP - General Family Medicine 01/03/15 Retail Client Solutions Consultant Relationship Specialty Start Date End Date Arsh Polk MD [address] [facility] [place] [address] PCP - General Family Medicine 01/03/15 Retail Client Solutions Consultant Relationship Specialty Start Date End Date Arsh Polk MD [address] [facility] [place] [address] PCP - General Family Medicine 01/03/15 Retail Client Solutions Consultant Relationship Specialty Start Date End Date Arsh Polk MD [address] [facility] [place] [address] PCP - General Family Medicine 01/03/15 Retail Client Solutions Consultant Relationship Specialty Start Date End Date Arsh Polk MD [address] [facility] [place] [address] PCP - General Family Medicine 01/03/15 Retail Client Solutions Consultant Relationship Specialty Start Date End Date Arsh Polk MD [address] [facility] [place] [address] PCP - General Family Medicine 01/03/15 Retail Client Solutions Consultant Relationship Specialty Start Date End Date Arsh Polk MD [address] [facility] [place] [address] PCP - General Family Medicine 01/03/15 Retail Client Solutions Consultant Relationship Specialty Start Date End Date Arsh Polk MD [address] [facility] [place] [address] PCP - General Family Medicine 01/03/15 Retail Client Solutions Consultant Relationship Specialty Start Date End Date Arsh Polk MD [address] [facility] [place] [address] PCP - General Family Medicine 01/03/15 Retail Client Solutions Consultant Relationship Specialty Start Date End Date Arsh Polk MD [address] [facility], [place] [address] PCP - General Family Medicine 01/03/15 Retail Client Solutions Consultant Relationship Specialty Start Date End Date Arsh Polk MD [address] [facility] [place] [address] PCP - General Family Medicine 01/03/15 Retail Client Solutions Consultant Relationship Specialty Start Date End Date Arsh Polk MD [address] [place] [address] PCP - General Family Medicine 01/03/15 Retail Client Solutions Consultant Relationship Specialty Start Date End Date Arsh Polk MD [address] [place] [address] PCP - General Family Medicine 01/03/15 Retail Client Solutions Consultant Relationship Specialty Start Date End Date Arsh Polk MD [address] [place] [address] PCP - General Family Medicine 01/03/15 Lexi Winkler APRN.PROP DRAWER [address] [place] [address] Automotive Instructor Family Medicine 04/17/24 Romina Flynn APRN.PROP DRAWER [address] [facility] [place] [address] Automotive Instructor Family Medicine 04/17/24 Retail Client Solutions Consultant Relationship Specialty Start Date End Date Arsh Polk MD [address] [facility] [place] [address] PCP - General Family Medicine 01/03/15 Lexi Winkler APRN.PROP DRAWER [address] [place] [address] Automotive Instructor Family Medicine 04/17/24 Romina Flynn APRN.PROP DRAWER [address] [place] [address] Automotive Instructor Family Medicine 04/17/24 Retail Client Solutions Consultant Relationship Specialty Start Date End Date Arsh Polk MD [address] [facility] [place] [address] PCP - General Family Medicine 01/03/15 Lexi Winkler APRN.PROP DRAWER [address] [place] [address] Automotive Instructor Family Medicine 04/17/24 Romina Flynn MANAGER SOFTWARE DEVELOPMENT.PROP DRAWER [address] [facility] [place] [address] Automotive Instructor Family Medicine 04/17/24 Retail Client Solutions Consultant Relationship Specialty Start Date End Date Arsh Polk MD [address] [facility] [place] [address] PCP - General Family Medicine 01/03/15 Lexi Winkler MANAGER SOFTWARE DEVELOPMENT.PROP DRAWER [address] [place] [address] Automotive Instructor Family Medicine 04/17/24 Romina Flynn APRN.PROP DRAWER [address] [facility] [place] [address] Automotive Instructor Family Medicine 04/17/24 Retail Client Solutions Consultant Relationship Specialty Start Date End Date Arsh Polk MD [address] [place] [address] PCP - General Family Medicine 01/03/15 Lexi Winkler APRN.PROP DRAWER [address] [place] [address] Automotive Instructor Family Medicine 04/17/24 Romina Flynn APRN.PROP DRAWER [address] [place] [address] Automotive Instructor Family Medicine 04/17/24 Retail Client Solutions Consultant Relationship Specialty Start Date End Date Arsh Polk MD [address] [place] [address] PCP - General Family Medicine 01/03/15 Lexi Winkler APRN.PROP DRAWER [address] [place] [address] Automotive Instructor Family Medicine 04/17/24 Romina Flynn APRN.PROP DRAWER [address] [place] [address] [facility] 04/17/24 Retail Client Solutions Consultant Relationship Specialty Start Date End Date Arsh Polk MD [address] [place] [address] PCP - General Family Medicine 01/03/15 Lexi Winkler APRN.PROP DRAWER [address] [place] [address] Automotive Instructor Family Medicine 04/17/24 Romina Flynn APRN.PROP DRAWER [address] [place] [address] [facility] 04/17/24 Retail Client Solutions Consultant Relationship Specialty Start Date End Date Arsh Polk MD [address] [facility] [place] [address] [phone] PCP - General Family Medicine 01/03/15 Lexi Winkler MANAGER SOFTWARE DEVELOPMENT.PROP DRAWER [address] [facility] [place] [address] Automotive Instructor Family [facility] 04/17/24 Romina Flynn MANAGER SOFTWARE DEVELOPMENT.PROP DRAWER [address] [place] [address] [facility] 04/17/24 Retail Client Solutions Consultant Relationship Specialty Start Date End Date Arsh Polk MD [address] [facility] [place] [address] PCP - General Family Medicine 01/03/15 Lexi Winkler MANAGER SOFTWARE DEVELOPMENT.PROP DRAWER [address] [facility] [place] [address] [facility] Medicine 04/17/24 Romina Flynn MANAGER SOFTWARE DEVELOPMENT.PROP DRAWER [address] [facility] [place] [address] [facility] 04/17/24 Retail Client Solutions Consultant Relationship Specialty Start Date End Date Arsh Polk MD [address] [place] [address] PCP - General Family Medicine 01/03/15 Lexi Winkler MANAGER SOFTWARE DEVELOPMENT.PROP DRAWER [address] [facility] [place] [address] Automotive Instructor Family Medicine 04/17/24 Romina Flynn MANAGER SOFTWARE DEVELOPMENT.PROP DRAWER [address] [facility] [place] [address] [facility] 04/17/24 Retail Client Solutions Consultant Relationship Specialty Start Date End Date Arsh Polk MD [address] [facility] [place] [address] PCP - General Family Medicine 01/03/15 Lexi Winkler, MANAGER SOFTWARE DEVELOPMENT.PROP DRAWER [address] [place] [address] Automotive [facility] 04/17/24 Romina Flynn MANAGER SOFTWARE DEVELOPMENT.PROP DRAWER [address] [facility] [place] [address] [facility] 04/17/24 Liliam Holt RN [address] [place], [place] [id number] Certified Nurse Aide 07/07/24 Retail Client Solutions Consultant Relationship Specialty Start Date End Date Arsh Polk MD [address] [facility] [place] [address] PCP - General Family Medicine 01/03/15 Lexi Winkler, MANAGER SOFTWARE DEVELOPMENT.PROP DRAWER [address] [place] [address] [facility] 04/17/24 Romina Flynn MANAGER SOFTWARE DEVELOPMENT.PROP DRAWER [address] [facility] [place] [address] Automotive Instructor Family [facility] 04/17/24 Liliam Holt RN [address] [place], [place] [id number] Certified Nurse Aide 07/07/24 Retail Client Solutions Consultant Relationship Specialty Start Date End Date Arsh Polk MD [address] [facility] [place] [address] PCP - General Family Medicine 01/03/15 Lexi Winkler APRN.PROP DRAWER [address] [place] [address] Automotive Instructor Family Medicine 04/17/24 Romina Flynn MANAGER SOFTWARE DEVELOPMENT.PROP DRAWER [address] [facility] [place] [address] Automotive Instructor Family Medicine 04/17/24 Liliam Holt, FRANKY [address] [place], [place] [id number] Certified Nurse Aide 07/07/24 Retail Client Solutions Consultant Relationship Specialty Start Date End Date Arsh Polk MD [address] [facility] [place] [address] PCP - General Family Medicine 01/03/15 Lexi Winkler MANAGER SOFTWARE DEVELOPMENT.PROP DRAWER [address] [place] [address] Automotive Instructor Family Medicine 04/17/24 Romina Flynn MANAGER SOFTWARE DEVELOPMENT.PROP DRAWER [address] [facility] [place] [address] Automotive Instructor Family Medicine 04/17/24 Liliam Holt RN [address] [place] [address] Certified Nurse Aide 07/07/24 Retail Client Solutions Consultant Relationship Specialty Start Date End Date Arsh Polk MD [address] [facility] [place] [address] PCP - General Family Medicine 01/03/15 Lexi Winkler APRN.PROP DRAWER [address] [place] [address] Automotive Instructor Family [facility] 04/17/24 Romina Flynn APRN.PROP DRAWER [address] [facility] [place] [address] Automotive Instructor [facility] Medicine 04/17/24 Retail Client Solutions Consultant Relationship Specialty Start Date End Date Arsh Polk MD [address] [facility] [place] [address] PCP - General Family Medicine 01/03/15 Lexi Winkler APRN.PROP DRAWER [address] [facility] [place] [address] Automotive [facility]St[facility] 04/17/24 Romina Flynn APRN.PROP DRAWER [address] [facility] [place] [address] Automotive [facility]St[facility] 04/17/24 Retail Client Solutions Consultant Relationship Specialty Start Date End Date Arsh Polk MD [address] [facility] [place] [address] PCP - General Family Medicine 01/03/15 Lexi Winkler APRN.PROP DRAWER [address] [facility] [place] [address] Automotive Instructor Family Medicine 04/17/24 Romina Flynn MANAGER SOFTWARE DEVELOPMENT.PROP DRAWER [address] [place] [address] [facility] 04/17/24 Retail Client Solutions Consultant Relationship Specialty Start Date End Date Arsh Polk MD [address] [facility] [place] [address] PCP - General Family Medicine 01/03/15 Lexi Winkler APRN.PROP DRAWER [address] [facility] [address] Automotive Instructor Family [facility] 04/17/24 Romina Flynn APRN.PROP DRAWER [address] [place] [address] Automotive InstructorSt[facility] 04/17/24 Retail Client Solutions Consultant Relationship Specialty Start Date End Date Arsh Polk MD [address] [place] [address] PCP - General Family Medicine 01/03/15 Lexi Winkler APRN.PROP DRAWER [address] [place] [address] Automotive InstructorSt[facility] 04/17/24 Romina Flynn APRN.PROP DRAWER [address] [facility] [place] [address] [facility] 04/17/24 Retail Client Solutions Consultant Relationship Specialty Start Date End Date Arsh Polk MD [address] [place] [address] PCP - General Family Medicine 01/03/15 Lexi Winkler APRN.PROP DRAWER [address] [place] [address] Automotive Instructor Family [facility] 04/17/24 Romina Flynn APRN.PROP DRAWER [address] [place] [address] [facility] 04/17/24 Retail Client Solutions Consultant Relationship Specialty Start Date End Date Arsh Polk MD [address] [place], [place] [address] PCP - General Family Medicine 01/03/15 Lexi Winkler, MANAGER SOFTWARE DEVELOPMENT.PROP DRAWER [address] [place], [place] [address] [facility] 04/17/24 Romina Flynn MANAGER SOFTWARE DEVELOPMENT.PROP DRAWER [address] [place], [place] [address] [facility] 04/17/24 Retail Client Solutions Consultant Relationship Specialty Start Date End Date Arsh Polk MD [address] [place] [address] PCP - General [facility] Medicine 01/03/15 Lexi Winkler, MANAGER SOFTWARE DEVELOPMENT.PROP DRAWER [address] [place], [place] [address] [facility] 04/17/24 Romina Flynn MANAGER SOFTWARE DEVELOPMENT.PROP DRAWER [address] [place] [address] [facility] 04/17/24 Team Status: Active Member Role/Relationship Status [...] 31, 2024 End: August 31, 2024 Alva CONNOR PA Attending Provider Active Start: August 31, 2024 End: August 31, 2024 Alva CONNOR PA Referring Provider Active Start: August 31, 2024 End: August 31, 2024 Team Status: Active Member Role/Relationship Status Dates Dr. Arsh Polk MD Primary Care Provider Active Start: August 31, 2024 Dr. John Herndon MD Attending Provider Active S tart: August 31, 2024 Alva CONNOR PA Referring Provider Active Start: August 31, 2024 Team Status: Inactive Member Role/Relationship Status Dates Dr. Arhs Polk MD Primary Care Provider Active Start: [...] 2024 End: November 14, 2024 Reagan Webster FOUNTAIN SERVER, FOUNTAIN SERVER-C Attending Provider Active S tart: November 14, 2024 End: November 14, 2024 Retail Client Solutions Consultant Relationship Specialty Start Date End Date Arsh Polk MD [address] [place] [address] PCP - General Family Medicine 01/03/15 Lexi Winkler, MANAGER SOFTWARE DEVELOPMENT.PROP DRAWER [address] [place] [address] Automotive Instructor Family Medicine 04/17/24 Romina Flynn APRN.PROP DRAWER [address] [facility] [place] [address] Automotive Instructor Family Medicine 04/17/24 Retail Client Solutions Consultant Relationship Specialty Start Date End Date Arsh Polk MD [address] [facility] [place] [address] PCP - General Family Medicine 01/03/15 Lexi Winkler, MANAGER SOFTWARE DEVELOPMENT.PROP DRAWER [address] [place] [address] Automotive Instructor Family Medicine 04/17/24 Romina Flynn MANAGER SOFTWARE DEVELOPMENT.PROP DRAWER [address] [facility] [place] [address] Automotive InstructorSt[facility] 04/17/24 Retail Client Solutions Consultant Relationship Specialty Start Date End Date Arsh Polk MD [address] [facility] [place] [address] PCP - General Family Medicine 01/03/15 Lexi Winkler, MANAGER SOFTWARE DEVELOPMENT.PROP DRAWER [address] [place] [address] Automotive Instructor Family Medicine 04/17/24 Romina Flynn APRN.PROP DRAWER [address] [facility] [place] [address] Automotive Instructor Family Medicine 04/17/24 Retail Client Solutions Consultant Relationship Specialty Start Date End Date Arsh Polk MD [address] [facility] [place] [address] PCP - General Family Medicine 01/03/15 Lexi Winkler APRN.PROP DRAWER [address] [place] [address] Automotive Instructor Family Medicine 04/17/24 Romina Flynn APRN.PROP DRAWER [address] [place] [address] Automotive Instructor Family Medicine 04/17/24 Retail Client Solutions Consultant Relationship Specialty Start Date End Date Arsh Polk MD [address] [place] [address] PCP - General Family Medicine 01/03/15 Lexi Winkler APRN.PROP DRAWER [address] [place] [address] Automotive Instructor Family Medicine 04/17/24 Romina Flynn APRN.PROP DRAWER [address] [place] [address] Automotive Instructor [facility] 04/17/24 Retail Client Solutions Consultant Relationship Specialty Start Date End Date Arsh Polk MD [address] [place] [address] PCP - General Family Medicine 01/03/15 Lexi Winkler APRN.PROP DRAWER [address] [place] [address] Automotive Instructor Family Medicine 04/17/24 Romina Flynn APRN.PROP DRAWER [address] [place] [address] [facility] 04/17/24 Goals (unrecognized section and content) Goals [...] BE BASED ON THE PRIMARY CLINICAL RECORDS. [employer] provides no warranty or guarantee of the accuracy or completeness of information in this document.
--- NOTE | 2025-04-05 21:19 | EKG12_ITS ---
Test Reason : DYSRHYTHMIA Blood Pressure : */* mmHG Vent. Rate : 121 BPM Atrial Rate : * BPM P-R Int : * ms QRS Dur : 162 ms QT Int : 320 ms P-R-T Axes : * -13 162 degrees QTcB Int : 454 ms Atrial fibrillation with rapid ventricular response with premature ventricular or aberrantly conducted complexes Left bundle branch block Abnormal ECG Confirmed by HOWARD FARRAR ([id number]), art editor CHRISTEN BEAR ([id number]) on 04/09/2025 6:37:57 AM Referred By: Confirmed By: HOWARD FARRAR
[2025-04-05] MEDS: 0.9% Normal Saline (500mL Bag) 500 ML 1000 ML IV (21:35)
--- NOTE | 2025-04-05 21:40 | CT_ITS ---
PROCEDURE: BRAIN/HEAD WITHOUT CONTRAST 04/05/2025 REASON FOR EXAM: HEAD TRAUMA TECHNIQUE: Procedure Code: CTBR Modality: CT Procedure: BRAIN/HEAD WITHOUT CONTRAST Coronal and Sagittal reconstruction series were provided. One or more dose reduction techniques were used (e.g., Automated exposure control, adjustment of the mA and/or kV according to patient size, use of iterative reconstruction technique. COMPARISON: 03/20/2025. FINDINGS: No acute intracranial hemorrhage. No midline shift. Moderate generalized atrophy, unchanged. No extra-axial fluid collection is identified. No fracture. The calvarium is intact. Mucous retention cysts are noted within the bilateral maxillary and right sphenoid sinuses. The bilateral mastoid air cells are clear. Evidence of bilateral cataract surgery. CT/Brain/Head without Contrast IMPRESSION: No acute intracranial CT abnormality. Reading Location: [id number]
--- NOTE | 2025-04-05 21:40 | RAD_ITS ---
PROCEDURE: CHEST 1 VIEW (PORTABLE) 04/05/2025 REASON FOR EXAM: FALL, WEAKNESS TECHNIQUE: Frontal view of the chest. COMPARISON: 04/03/2025. FINDINGS: No significant interval change when accounting for differences in patient rotation. Mild chronic bronchopulmonary changes are noted without airspace consolidation or pleural effusion. The cardiac silhouette is borderline enlarged. Mild atherosclerotic calcification within the aortic knob. No acute osseous abnormality. RAD/Chest 1 View (Portable) IMPRESSION: As above. Reading Location: [id number]
--- NOTE | 2025-04-05 21:40 | CT_ITS ---
PROCEDURE: SPINE CERVICAL WITHOUT CONTRAS 04/05/2025 REASON FOR EXAM: TRAUMA TECHNIQUE: Procedure Code: CTSPC Modality: CT Procedure: SPINE CERVICAL WITHOUT CONTRAS Coronal and Sagittal reconstruction series were provided. One or more dose reduction techniques were used (e.g., Automated exposure control, adjustment of the mA and/or kV according to patient size, use of iterative reconstruction technique. COMPARISON: 03/20/2025. FINDINGS: No acute fracture or subluxation. Moderate disc narrowing is noted at C6-7, with partial ossification of the disc space, and mild disc narrowing is noted at C4-5 and C5-6. 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 Mild posterior osteophytosis at multiple levels in the cervical spine result in borderline narrowing of the canal at C6-7. Facet arthrosis and marginal osteophytosis contribute to [id number] neural foraminal narrowing bilaterally at C2-3 and C3-4. Degenerative calcification of the apical and cruciate ligaments. These findings are not significantly changed from the previous study. CT/Spine Cervical without Contras IMPRESSION: No CT evidence of acute traumatic injury to the cervical spine. Cervical spondylosis, unchanged from the previous study. 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 Reading Location: [id number]
[2025-04-05 21:44] LABS: Hematocrit 30.9 % (40-54); Hemoglobin 9.9 g/dL (13.0-16.5); Immature Granulocytes Count 0.080 X10^3/uL (0.0-0.0); Mean Corp Hgb Conc 32.0 g/dL (32-36); Mean Corpuscular Volume 91.4 fL (80-94); Mean Platelet Vol. 11.7 fl (6.2-12.0); NRBC Flagged by Analyzer 0 % (0-5); Platelet Count 245 K/mm3 (150-450); RBC Distribution Width CV 15.1 % (11.6-14.6); RBC Distribution Width SD 50.2 fl (35.1-43.9); Red Blood Count 3.38 M/mm3 (4.6-6.2); White Blood Count 13.1 K/mm3 (4.4-11.0)
[2025-04-05 22:01] VITALS: BP 119/96; PULSE 86; RESP 16; O2SAT 95
[2025-04-05 22:04] LABS: Anion Gap 16 (5-15); BUN 52 mg/dL (4-19); BUN/Creat Ratio 20.6 RATIO (10-20); Calcium,Total 9.2 mg/dL (7.6-11.0); Carbon Dioxide 20.7 mmol/L (21.0-32.0); Chloride 104 mmol/L (98-108); Estimated Creatinine Clearance 28.33 ml/min (50-250); Glucose 209 mg/dL (70-99); Potassium 5.3 mmol/L (3.3-5.1)
[2025-04-05 22:23] LABS: Allen Test Positive; Base Excess -2 mmol/L (-2 to +2); PO2 66 mmHG (75-100); SITE L Radial; SO2 93 % (94-98)
[2025-04-05 22:36] LABS: Mucous, Urine 0 SEEN /hpf (<or=2+); Red Blood Cells-Urine 0 SEEN /hpf (0-5); Squamous Epithelial Cells - UA 0 SEEN /hpf (0-5)
[2025-04-05 22:40] LABS: Color, Urine Yellow (Yellow); Glucose, Dipstick Normal (Normal); Ketone-Dipstick Negative (Negative); Leukocyte Esterase-Dipstick 100 /ul (Negative); Nitrite-Dipstick Negative (Negative); Occult Blood-Urine Negative /ul (Negative); Protein-Dipstick 30 mg/dl (Negative); Specific Gravity, Urine 1.015 (1.002-1.030); Urine Bilirubin Dipstick Negative (Negative)
[2025-04-05 23:00] VITALS: BP 118/73; PULSE 91; RESP 18; O2SAT 95
--- NOTE | 2025-04-05 23:58 | EX.ED.DYSGE1 ---
HPI History of Present Illness Chief Complaint: Fall Informant: patient and other (TCU staff) Narrative Narrative: Patient is 89-year-old male with history of proximal atrial fibrillation (on Lovenox), Parkinson's, hyperlipidemia, prior TAVR, dementia, diabetes mellitus, non-Hodgkin's lymphomas and heart failure with reduced ejection fraction. He is presenting from the TCU after he slid or fell out of his chair. Found on the ground. Per report had last been seen 20 minutes before so little concern for prolonged downtime. Did have some signs of head injury. Seemed confused per staff. Was brought to the ER for further evaluation. Patient reportedly has been in his normal state of health otherwise. He is in the TCU for generalized weakness and rehab. Patient is currently little sleepy but has no physical complaints at this time. Denies any pain. [facility] Medical History Palliative care encounter HFrEF (heart failure with reduced ejection fraction) Paroxysmal atrial fibrillation with RVR Parkinson disease Loss of hearing Wears glasses Wears dentures Depression Uses wheelchair Arthritis Anemia Easy bruising Back pain Dietary restriction Former smoker Shortness of breath on exertion History of pain when walking History of edema History of echocardiogram History of stress test Cardiology follow-up encounter History of heart attack Constipation Multiple premature ventricular complexes Fall 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) Chronic kidney disease (CKD) Non-ischemic cardiomyopathy History of non-ST elevation myocardial infarction (NSTEMI) (01/22/20) Chronic systolic (congestive) heart failure CHF (congestive heart failure), NYHA class III 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 Mild chronic anemia Nonrheumatic aortic (valve) stenosis Non-Hodgkin lymphoma Obesity Splenic artery aneurysm Type 2 diabetes mellitus Kidney stones HLD (hyperlipidemia) Home Medications ?Medication ?Instructions ?Recorded ?Last Taken ?Type folic acid 1 mg tablet 1 mg PO DAILY [facility] 11/11/21 09/02/24 History atorvastatin 40 mg tablet 40 mg PO QHS cholesterol 02/20/22 03/21/25 History metformin 500 mg tablet,extended 500 mg PO BID DM 11/16/23 09/02/24 History release 24 hr tamsulosin 0.4 mg capsule (Flomax) 0.4 mg PO BID bladder 04/24/24 03/22/25 History rivastigmine tartrate 1.5 mg 1.5 mg PO BIDCM memory 30 days #60 05/16/24 03/22/25 Rx capsule caps ferrous gluconate 324 mg (37.5 mg 325 mg PO BID [facility] 09/03/24 03/22/25 History iron) tablet furosemide 40 mg tablet 40 mg PO DAILY water pill 09/03/24 03/22/25 History lorazepam 0.5 mg tablet 0.5 mg PO Q4H PRN aggitation & 09/03/24 Unknown History restlessness aspirin 81 mg tablet,delayed 81 mg PO QDAY [facility] 10/06/24 03/22/25 History release (Adult Low Dose Aspirin) carbidopa 25 mg-levodopa 100 mg 1 tab PO TID parkinsons 11/14/24 03/22/25 History tablet sennosides 8.6 mg-docusate sodium 2 tab PO BID PRN PRN Constipation 03/22/25 Unknown Rx 50 mg tablet (Stimulant Laxative #0 tabs Plus) cyanocobalamin (vitamin B-12) 1,000 mcg PO DAILY 04/05/25 Unknown History 1,000 mcg capsule enoxaparin 40 mg/0.4 mL 40 mg subcut DAILY 04/05/25 Unknown History subcutaneous syringe (Lovenox) finasteride 5 mg tablet 5 mg PO DAILY 04/05/25 Unknown History gabapentin 100 mg capsule 200 mg PO BID 04/05/25 Unknown History guaifenesin 600 mg tablet, 600 mg PO BID 04/05/25 Unknown History extended release 12 hr (Mucinex) linagliptin 5 mg tablet (Tradjenta) 5 mg PO DAILY 04/05/25 Unknown History nystatin 100,000 unit/gram topical 1 applic topical BID PRN Redness 04/05/25 Unknown History powder sertraline 50 mg tablet (Zoloft) 50 mg PO DAILY 04/05/25 Unknown History Allergy/AdvReac Type Severity Reaction Status Date / Time No Known Allergies Allergy Verified 04/05/25 21:13 Family History Mother Heart disease Father Heart disease Brother Heart disease Surgical History History of left heart catheterization (08/14/20) Hx of cataract surgery Hx of cholecystectomy Social History household members: spouse Smoking Status: Former smoker how long ago did patient quit smokin alcohol intake: never substance use type: does not use caffeine: Yes Type: coffee Number of servings: 2 ROS ROS ED Constitutional Constitutional ED: Denies chills or fever(s) Eyes Eyes: Denies blurry vision Gastrointestinal Gastrointestinal: Denies nausea or vomiting Musculoskeletal Musculoskeletal: Denies arthralgias or myalgias Integumentary Reports Abrasions Neurologic Neurologic: Reports weakness; Denies headache(s) or paresthesias Hematologic/Lymphatic Hematologic/Lymphatic: Reports easy bleeding and easy bruising EXAM Physical Exam Const Vital Signs: 04/05/25 21:02 04/05/25 21:38 04/05/25 22:01 Temperature 98.3 F Temperature Source Oral Pulse Rate 122 H 86 Respiratory Rate 19 H 16 Respiratory Effort Normal Respiratory Depth Normal Respiratory Pattern Normal Blood Pressure 97/82 H 119/96 H Blood Pressure Mean 87 103 Pulse Ox 93 95 Oxygen Delivery Method Room Air Room Air Room Air 04/05/25 23:00 04/06/25 00:00 04/06/25 00:07 Temperature 97.8 F Temperature Source Pulse Rate 91 80 82 Respiratory Rate 18 30 H 20 H Respiratory Effort Respiratory Depth Respiratory Pattern Blood Pressure 118/73 139/73 H 139/73 H Blood Pressure Mean 88 95 95 Pulse Ox 95 98 96 Oxygen Delivery Method Room Air Room Air Positive well nourished and well developed General Appearance ED: well developed and NAD HEENT Reports dry mucous membranes HEENT Narrative: Dry chapped lips. No hemotympanum. No signs of basilar skull fracture. Some scattered ecchymosis noted to the right forehead/cheondoism area Mouth ED: Yes dry mucous membranes Mouth: dry mucous membranes Eyes PERRL Neck supple and no JVD Chest Wall inspection of chest normal Resp normal respiratory effort and clear to auscultation bilaterally Cardio regular rate and regular rhythm GI normal to inspection, nondistended, normoactive bowel sounds and non-tender Extremity Extremity Narrative: No deformity of the extremities. Normal range of motion. Pelvis is stable. General Extremety ED: Negative for edema or tenderness General Extremity: Negative for edema Neuro Neuro Narrative: Patient oriented to self and location. No focal deficits. Generally weak appearing. Sensorium / Orientation: alert and orientation impaired Motor Exam: general weakness Psych mental status grossly normal Psych Narrative: Mildly sleepy however it is nighttime otherwise behaving appropriately Skin Skin Narrative: skin tear to the right elbow present. No active bleeding. MDM MDM MDM Narrative Medical decision making narrative: Patient evaluated for generalized weakness and confusion after he fell out of his chair. He is currently in TCU for rehab. He is anticoagulated. Differential includes not limited to intracranial hemorrhage, skull fracture, concussion, infection, arrhythmia, symptomatic anemia, KOFI, UTI and sepsis. Discharge summary from recent admission reviewed. Patient was admitted 03/20 through 03/22 for failure to thrive and generalized weakness and head injury. Was then admitted to the TCU for rehab. CT imaging does not show any acute traumatic process of the brain or cervical spine. Chest x-rays not show any acute process. To be by myself as well as radiology. Patient is of a leukocytosis of 13.1 and a chronic anemia which is stable at with a hemoglobin 9.9. Platelets are normal. BMP consistent with some dehydration with a bicarb of 20.7. Minimally elevated potassium of 5.3. He does have an elevation of BUN his creatinine (creatinine is 2.51). His baseline appears to be 1.8 to does have some mild renal insufficiency associate with this. Lactate is also elevated at 2.4. Patient's initial blood pressure is soft however he is not truly hypotensive. He is tachycardic. Patient is given a 500 cc fluid bolus in the emergency room with stabilization of his vitals. No obvious infectious source noted on chest x-ray urinalysis. Patient initially did have tachyarrhythmia however normalized with IV fluids. Clinically patient appeared dehydrated. Suspect he had volume depletion which is contributing to these abnormalities. I did speak with Dr. Romano from the TCU. [place] comfortable taking him back to the TCU. Will further address hydration status and renal insufficiency in the TCU. Can monitor for signs of infection as well. Lab Data Attestation: I reviewed the patient's lab results. Labs: Laboratory Results - last 24 hr 04/05/25 04/05/25 04/05/25 21:15 21:26 22:30 WBC 13.1 H RBC 3.38 L Hgb 9.9 L Hct 30.9 L MCV 91.4 MCH 29.3 MCHC 32.0 RDW Std Deviation 50.2 H RDW Coeff of Wendy 15.1 H Plt Count 245 MPV 11.7 Immature Gran % (Auto) 0.600 Neut % (Auto) 81.6 H Lymph % (Auto) 7.7 L [place] % (Auto) 8.4 Eos % (Auto) 1.4 Baso % (Auto) 0.3 Absolute Neuts (auto) 10.7 H Absolute Lymphs (auto) 1.00 Nucleated RBC % 0 Sodium 141 Potassium 5.3 H Chloride 104 Carbon Dioxide 20.7 L Anion Gap 16 H BUN 52 H Creatinine 2.51 H Estim Creat Clear Calc 28.33 L Est GFR (MDRD) Non-Af 25 L BUN/Creatinine Ratio 20.6 H Glucose 209 H Lactic Acid 2.4 H* Calcium 9.2 Urine Color Yellow Urine Clarity Clear Urine pH 6.0 Ur Specific Cisco 1.015 Urine Protein 30 H Urine Glucose (UA) Normal Urine Ketones Negative Urine Occult Blood Negative Urine Nitrite Negative Urine Bilirubin Negative Urine Urobilinogen Normal Ur Leukocyte Esterase 100 H Urine RBC 0 SEEN Urine WBC 0-5 SEEN Ur Squamous Epith Cells 0 SEEN Urine Bacteria RARE Urine Mucus 0 SEEN ABG Data ABG results: ABG 04/05/25 22:19 Specimen Type ART Sample Site L Radial pH 7.38 Bicarbonate Actual 22.9 Total CO2 24 Base Excess -2 O2 Saturation 93 L ABG pCO2 38.7 ABG pO2 66 L Nirav Test Positive O2 Delivery Device Room Air Vent Mode Not entered Radiography Chest X-Ray - ED: 1 View, Read by ED Physician, Read by Radiologist and Cardiomegaly Diagnostic Testing: Clinical Impression(s) from Imaging Studies Brain CT 04/05/25 21:40 IMPRESSION: No acute intracranial CT abnormality. Reading Location: [facility] Cervical Spine CT 04/05/25 21:40 IMPRESSION: No CT evidence of acute traumatic injury to the cervical spine. Cervical spondylosis, unchanged from the previous study. 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 Reading Location: [facility] Chest X-Ray 04/05/25 21:40 IMPRESSION: As above. Reading Location: [facility] Rhythm Strip Rhythm Strip: A-fib Rate: 121 Ectopy: PVC(s) EKG Initial EKG: Attestation: I personally reviewed and interpreted this EKG as follows: Interpretation: Atrial Fibrillation Comments: Atrial fibrillation with RVR at a rate of 121 bpm Left bundle og block PVCs present No significant change compared to prior EKGs Management Discussion w/another healthcare provider: Other (Dr. Romano, [facility]) Discharge Plan Triage Chief Complaint: Fall ED Provider: Evelin Zimmer Dx/Rx/DC Orders Clinical Impression: Closed head injury, Chronic anticoagulation, Weakness, Acute renal insufficiency, Dehydration, KOFI (acute kidney injury), Skin tear of elbow without complication Prescriptions: No Action atorvastatin 40 mg tablet 40 mg PO QHS metformin 500 mg tablet extended release 24 hr 500 mg PO BID Rx Instructions: resume 01/27/2020 carbidopa-levodopa 25-100 mg tablet 1 tab PO TID folic acid 1 mg Tablet 1 mg PO DAILY furosemide 40 mg tablet 40 mg PO DAILY lorazepam 0.5 mg Tablet 0.5 mg PO Q4H PRN (Reason: aggitation & restlessness) ferrous gluconate 324 mg (37.5 mg iron) Tablet 325 mg PO BID sennosides-docusate sodium [Stimulant Laxative Plus] 8.6-50 mg Tablet 2 tab PO BID PRN PRN (Reason: Constipation) Qty: 0 0RF tamsulosin [Flomax] 0.4 mg capsule 0.4 mg PO BID rivastigmine tartrate 1.5 mg Capsule 1.5 mg PO BIDCM 30 Days Qty: 60 0RF enoxaparin [Lovenox] 40 mg/0.4 mL syringe 40 mg subcut DAILY guaifenesin [Mucinex] 600 mg tablet extended release 12hr 600 mg PO BID nystatin 100,000 unit/gram powder 1 applic topical BID PRN (Reason: Redness) gabapentin 100 mg capsule 200 mg PO BID finasteride 5 mg tablet 5 mg PO DAILY Tradjenta 5 mg tablet 5 mg PO DAILY cyanocobalamin (vitamin B-12) 1,000 mcg capsule 1,000 mcg PO DAILY sertraline [Zoloft] 50 mg tablet 50 mg PO DAILY aspirin [Adult Low Dose Aspirin] 81 mg tablet,delayed release (DR/EC) 81 mg PO QDAY Primary Care Provider: Lalo Hwang Referrals: Lalo Hwang MD [Primary Care Provider, Medical] Print Language: [place] Disposition Disposition: Inpatient Rehab Unit/Facility Discharge Location: [facility] Transitional Care Unit
[2025-04-06] VITALS: BP 139/73; PULSE 80; RESP 30; O2SAT 98
[2025-04-06 00:07] VITALS: BP 139/73; PULSE 82; RESP 20; TEMP 36.6; O2SAT 96
[2025-04-06 01:29] LABS: Reflex Lactate? Y
== END 2025-04-06 00:36 ==
PROVIDERS: Emergency Provider Emergency Medicine; PCP Family Medicine; Visit Provider Emergency Medicine
DX: S00.83XA Contusion of other part of head, initial encounter (principal); G20.A1 Parkinson's disease without dyskinesia, without mention of fluctuations; I50.22 Chronic systolic (congestive) heart failure; F03.93 Unspecified dementia, unspecified severity, with mood disturbance; I48.0 Paroxysmal atrial fibrillation; E11.9 Type 2 diabetes mellitus without complications; S51.011A Laceration without foreign body of right elbow, initial encounter; W07.XXXA Fall from chair, initial encounter; Y92.239 Unspecified place in hospital as the place of occurrence of the external cause; N17.9 Acute kidney failure, unspecified; E86.0 Dehydration; D64.9 Anemia, unspecified; R53.1 Weakness; I49.3 Ventricular premature depolarization; I25.2 Old myocardial infarction; E78.5 Hyperlipidemia, unspecified; I35.0 Nonrheumatic aortic (valve) stenosis; I25.10 Atherosclerotic heart disease of native coronary artery without angina pectoris; Z95.2 Presence of prosthetic heart valve; Z79.01 Long term (current) use of anticoagulants; Z85.72 Personal history of non-Hodgkin lymphomas; Z79.82 Long term (current) use of aspirin; Z90.49 Acquired absence of other specified parts of digestive tract; Z79.84 Long term (current) use of oral hypoglycemic drugs; Z79.899 Other long term (current) drug therapy; Z87.891 Personal history of nicotine dependence
CPT/HCPCS: 36600; 70450; 71045; 72125; 80048; 81001; 82803; 83605; 85025; 93005; 96360; 99284; A4216